=== PATIENT | female | born 1965 | race Caucasian/White ===

== ENCOUNTER → 2022-12-21 10:04 | Outpatient (BNVA) | payer OTHER, SELFPAY | PROVIDERS: Visit Provider Physician Assistant Surgical ==

== ENCOUNTER 2022-12-30 08:09 | Outpatient (AMB) | payer OTHER, SELFPAY ==
--- OUTSIDE RECORDS SUMMARY | 2022-12-30 08:11 | XMS_ITS | Continuity of Care Document ---
Author Name Unknown Organization 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 Date(s): 03/30/21 - 04/06/21 [facility] [address] [place] [address]- Encounter Diagnosis Memory deficit(Discharge Diagnosis) - 03/30/21 Oropharyngeal dysphagia(Discharge Diagnosis) - 03/30/21 Loss of taste(Discharge Diagnosis) - 03/30/21 Persistent dry cough(Discharge Diagnosis) - 03/30/21 Attending Physician: Kaiden Chirinos MD Allergies, Adverse Reactions, Alerts Substance Reaction Severity Status morphine Active Adhesive Bandage Active Percocet 7.5/325 Active Immunizations Given and Recorded Vaccine Date Status Refusal Reason SARS-CoV-2 (COVID-19) mRNA BNT-162b2 vac 08/02/20 Recorded SARS-CoV-2 (COVID-19) mRNA BNT-162b2 vac 07/10/20 Recorded hepatitis B adult vaccine 12/29/10 Recorded hepatitis B adult vaccine 07/28/10 Recorded hepatitis B adult vaccine 01/20/10 Recorded tetanus/diphtheria/pertussis, acel(Tdap) 01/20/10 Recorded Medications amitriptyline 10 mg oral tablet 10 mg, 1, tablet, By Mouth, Daily at bedtime, # 90 tablet, Refills 1, Tot. Refills 1, Maintenance, 12/24/20 16:08:00 EDT, Route to Pharmacy Electronically, [facility]/pharmacy #[id number], Partial fill upon patient request if the prescription is for a schedule II... Start Date: 12/24/20 Status: Ordered baclofen 10 mg oral tablet 10 mg, 1, tablet, By Mouth, 3 times a day, PRN, # 30 tablet, Refills 0, Tot. Refills 0, Maintenance, Spasm, 01/31/19 21:47:23 EDT, Route to Pharmacy Electronically, [id number], [facility]/pharmacy #[id number] Start Date: 01/31/19 Stop Date: 02/14/19 Status: Ordered benzonatate 100 mg oral capsule 2 capsule, By Mouth, 3 times a day, PRN NEEDED FOR COUGH, # 30 capsule, 1 Refills, Physician Stop 03/19/22 17:38:00 EST, 02/19/22 16:55:00 EDT, [facility]/pharmacy #[id number], 160, cm, 12/04/20 10:52:00 EDT, Height, 104.6, kg, 12/04/20 10:52:00 EDT, Dry Weight Start Date: 02/19/22 Stop Date: 03/19/22 Status: Ordered benzonatate 100 mg oral capsule 2 capsule, By Mouth, 3 times a day, PRN NEEDED FOR COUGH, # 30 capsule, 1 Refills, Physician Stop 02/19/22 16:55:00 EDT, 02/19/21 16:54:00 EDT, [facility]/pharmacy #[id number], 160, cm, 12/04/20 10:52:00 EDT, Height, 104.6, kg, 12/04/20 10:52:00 EDT, Dry Weight Start Date: 02/19/21 Stop Date: 02/19/22 Status: Ordered clonazePAM 0.5 mg oral tablet 1 tablet = 0.5 mg, By Mouth, 4 times a day, PRN Anxiety, Patient on controlled substance contract. Please do NOT fill until 09/23/2020, # 112 tablet, 0 Refills, Maintenance, 11/18/20 21:02:00 EDT, Tablet, [facility]/pharmacy #[id number], Partial fill upon patient... Start Date: 11/18/20 Status: Ordered Famotidine 0 Refills, Maintenance, 04/07/19 16:11:00 EST Start Date: 04/07/19 Status: Ordered gabapentin 800 mg oral tablet 1 tablet = 800 mg, By Mouth, 4 times a day, # 360 tablet, 1 Refills, Maintenance, 11/09/20 23:47:00EDT, Tablet, [facility]/pharmacy #[id number], Partial fill upon patient request if the prescription is for a schedule II opioid drug., 160, cm, 10/30/20 8:28:00 EDT... Start Date: 11/09/20 Status: Ordered Hinged knee brace bilateral knees Hinged knee brace bilateral knees, See Instructions, # 2 each, Refills 0, Tot. Refills 0, Maintenance, To be worn while ambulating daily., 12/04/20 11:23:00 EDT, Supply Start Date: 12/04/20 Status: Ordered HydrOXYzine = 100 mg, By Mouth, 3 times a day, 0 Refills, Maintenance, 04/07/19 16:12:00 EST Start Date: 04/07/19 Status: Ordered hydrOXYzine pamoate 50 mg oral capsule 1-2 capsule, By Mouth, 3 times a day, PRN itchiness, # 180 capsule, 1 Refills, Maintenance, 02/25/21 8:28:00 EST, Capsule, [facility]/pharmacy #[id number], Partial fill upon patient request if the prescription isfor a schedule II opioid drug., 160, cm, 12/04/20 1... Start Date: 02/25/21 Status: Ordered Incontenence Pads, Extra Long Day Time Incontenence Pads, Extra Long Day Time, See Instructions, # 120 each, Refills 11, Tot. Refills 11, Maintenance, Use for Dx: urinary incontenence R32 Duration of need: x99, 10/30/20 8:53:00 EDT, Supply Start Date: 10/30/20 Status: Ordered Incontenence Pads, Night Time Extra Long Heavy Incontenence Pads, Night Time Extra Long Heavy, See Instructions, # 90 each, Refills 11, Tot. Refills 11, Maintenance, Use for Dx: urinary incontenence R32 Duration of need x 99, 11/11/20 10:29:00 EDT, Supply, 160, cm, 10/30/20 8:28:00 EDT, Height, 1... Start Date: 11/11/20 Status: Ordered levothyroxine 75 mcg (0.075 mg) oral tablet 1 tablet = 75 mcg, By Mouth, Daily before breakfast, # 90 tablet, 1 Refills, Maintenance, 11/05/20 11:43:00 EDT, Tablet, [facility]/pharmacy #[id number], Partial fill upon patient request if the prescription is for a schedule II opioid drug., 160, cm, 10/30/20 8:2... Start Date: 11/05/20 Status: Ordered meloxicam 15 mg oral tablet 1/2 TO 1 TABLET, By Mouth, Daily, PRN NEEDED FOR MODERATE PAIN, # 30 tablet, 1 Refills, [id number], 160, cm, 12/04/20 10:52:00 EDT, Height, 104.6, kg, 12/04/20 10:52:00 EDT, Dry Weight Start Date: 01/22/21 Status: Ordered omeprazole 20 mg oral enteric coated capsule 1 capsule, By Mouth, Daily, # 90 capsule, 1 Refills, [id number], 160, cm, 03/30/21 10:47:00 EST, Height, 104.6, kg, 12/04/20 10:52:00 EDT, Dry Weight Start Date: 03/31/21 Status: Ordered ondansetron 4 mg oral tablet See Instructions, TAKE 1 TABLET BY MOUTH EVERY 8 HOURS NEEDED FOR NAUSEA AND VOMITING, # 15 tablet, 1 Refills, Physician Stop 04/19/21 17:37:00 EST, 03/19/21 17:37:00 EST, [facility]/pharmacy #[id number], 160,cm, 12/04/20 10:52:00 EDT, Height, 104.6, kg, 12/04... Start Date: 03/19/21 Stop Date: 04/19/21 Status: Ordered oxybutynin 5 mg oral tablet 1 tablet, By Mouth, 3 times a day, dose increase, # 270 tablet, 1 Refills, Maintenance, 03/19/21 17:40:00 EST, [facility]/pharmacy #[id number], 160, cm, 12/04/20 10:52:00 EDT, Height, 104.6, kg, 12/04/20 10:52:00EDT, Dry Weight Start Date: 03/19/21 Status: Ordered ProAir HFA 90 mcg/inh inhalation aerosol 2 puffs, Inhalation, Every 4 hours, PRN as needed for wheezing, # 8.5 Gm, 0 Refills, Maintenance, 11/16/20 8:39:00 EDT, Aerosol, [id number], Partial fill upon patient request if the prescription is for a schedule II opioid drug., 2 puffs Inhal... Start Date: 11/16/20 Status: Ordered Qvar Redihaler 40 mcg/inh inhalation aerosol = 40 mcg, Inhalation, 2 times a day, to replace flovent rinse mouth and throat after use, # 1 each,1 Refills, Maintenance, 03/30/21 20:35:00 EST, [id number], Partial fill upon patient request if the prescription is for a schedule II opioid d... Start Date: 03/30/21 Status: Ordered sertraline 100 mg oral tablet 2 tablet = 200 mg, By Mouth, Daily, dose increase, please hold script until patient next due (she will no longer be on 50mg tabs), # 180 tablet, 1 Refills, Maintenance, 10/30/20 8:45:00 EDT, Tablet, [id number], Partial fill upon patient reques... Start Date: 10/30/20 Status: Ordered traZODone 150 mg oral tablet 1.5 tablet = 225 mg, By Mouth, Daily at bedtime, dose increase, # 135 tablet, 1 Refills, Maintenance, 04/06/21 12:26:00 EST, Tablet, [id number], Partial fill upon patient request if the prescription is for a schedule II opioid drug., 160, cm,... Start Date: 04/06/21 Status: Ordered Vitamin D3 50,000 intl units oral capsule TAKE 1 CAPSULE BY MOUTH ONCE A WEEK Start Date: 09/07/20 Status: Ordered Problem List Condition Effective Dates Status Health Status Inform ant Anxiety(Confirmed) Active Chronic neck pain(Confirmed) Active Swelling of face(Confirmed) Active Chronic GERD(Confirmed) Active Hypothyroidism(Confirmed) Active Insomnia(Confirmed) Active Chronic pain of right knee(Confirmed) Active Legally blind(Confirmed) Active Moderate obesity(Confirmed) Active Ruptured ear drum(Confirmed) Active Post traumatic stress disord er (PTSD)(Confirmed) Active Major depressive disorder, r ecurrent episode, moderate(Confirmed) Active Adult night terrors(Confirmed) Active Diagnosis Diagnosis Type Effective Dates Health Status Clinical Service Informant Memory deficit Discharge Diagnosis 03/30/21 Oropharyngeal dysphagia Discharge Diagnosis 03/30/21 Loss of taste Discharge Diagnosis 03/30/21 Persistent dry cough Discharge Diagnosis 03/30/21 Vital Signs Most recent to oldest [Reference Range]: 1 Height 160 cm (03/30/21 10:47 AM) Oxygen Saturation [94-100 %] 97 % (03/30/21 10:47 AM) Pulse Rate [55-90 bpm] 84 bpm (03/30/21 10:47 AM) Blood Pressure [90-138/55-84 mm Hg] 122/ 82mm Hg (03/30/21 10:47 AM) Temperature [96.8-100.4 DegF] 98.4 DegF (03/30/21 10:47 AM) Blood pressure sites Arm, left (03/30/21 10:47 AM) Temperature Route Temporal (03/30/21 10:47 AM) Weight Obtained Via Standing scale (03/30/21 10:47 AM) Social History Social History Type Response Smoking Status Former smoker, quit more than 30 days ago;Never entered on: 04/07/19 Sex
--- OUTSIDE RECORDS SUMMARY | 2022-12-30 08:11 | XMS_ITS | Continuity of Care Document ---
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 Name Role Phone Kaiden Chirinos MD Primary Care Physician [phone] Encounter [facility] [id number] Date(s): 05/14/21 - 05/21/21 [facility] [address] [place] [address]- Encounter Diagnosis Bilateral primary osteoarthritis of knee(Discharge Diagnosis) - 05/14/21 Attending Physician: Kaiden Chirinos MD Allergies, Adverse [...] 01/20/10 Recorded tetanus/diphtheria/pertussis, acel(Tdap) 01/20/10 Recorded Medications Albuterol (Eqv-ProAir HFA) 90 mcg/inh inhalation aerosol 2 puffs, Inhalation, Every 4 hours, PRN NEEDED FOR WHEEZING, # 8.5 each, 0 Refills, [id number], 20, INHALE 2 PUFFS BY MOUTH EVERY 4 HOURS NEEDED FOR WHEEZING, 160, cm, 03/30/21 10:47:00 EST, Height, 104.6, kg, 12/04/20 10:52:00 EDT, Dry Weight Start Date: 04/28/21 Status: Ordered amitriptyline 10 mg oral tablet 10 mg, 1, tablet, By Mouth, Daily at bedtime, # 90 tablet, Refills 1, Tot. Refills 1, Maintenance, 12/24/20 16:08:00 EDT, Route to Pharmacy Electronically, [facility]/pharmacy #[id number], Partial fill upon patient request if the prescription is for a schedule II... Start Date: 12/24/20 Status: Ordered baclofen 10 mg oral tablet 10 mg, 1, tablet, By Mouth, 3 times a day, PRN, # 30 tablet, Refills 0, Tot. Refills 0, Maintenance, Spasm, 01/31/19 21:47:23 EDT, Route to Pharmacy Electronically, [id number], [id number] Start Date: 01/31/19 Stop Date: 02/14/19 Status: Ordered Bactrim DS 800 mg-160 mg oral tablet 1 tablet, By Mouth, 2 times a day, for 3 days, with food, # 6 tablet, 0 Refills, Acute 05/23/21 17:36:00 EST, 05/20/21 17:36:00 EST, Tablet, [id number], Partial fill upon patient request if the prescription is for a schedule II opioid drug., 1... Start Date: 05/20/21 Stop Date: 05/23/21 Status: Ordered benzonatate 100 mg oral capsule 2 capsule, By Mouth, 3 times a day, PRN NEEDED FOR COUGH, # 30 capsule, 1 Refills, Physician Stop 03/19/22 17:38:00 EST, 02/19/22 16:55:00 EDT, [id number], 160, cm, 12/04/20 10:52:00 EDT, Height, 104.6, kg, 12/04/20 10:52:00 EDT, Dry Weight Start Date: 02/19/22 Stop Date: 03/19/22 Status: Ordered benzonatate 100 mg oral capsule 2 capsule, By Mouth, 3 times a day, PRN NEEDED FOR COUGH, # 30 capsule, 1 Refills, Physician Stop 02/19/22 16:55:00 EDT, 02/19/21 16:54:00 EDT, [id number], 160, cm, 12/04/20 10:52:00 EDT, Height, 104.6, kg, 12/04/20 10:52:00 EDT, Dry Weight Start Date: 02/19/21 Stop Date: 02/19/22 Status: Ordered clonazePAM 0.5 mg oral tablet 1 tablet = 0.5 mg, By Mouth, 4 times a day, PRN Anxiety, Patient on controlled substance contract. Please do NOT fill until 09/23/2020, # 112 tablet, 0 Refills, Maintenance, 11/18/20 21:02:00 EDT, Tablet, [id number], Partial fill upon patient... Start Date: 11/18/20 Status: Ordered Dilaudid 2 mg oral tablet 0.5 tablet = 1 mg, By Mouth, Every 6 hours, PRN Pain , Severe, # 28 tablet, 0 Refills, Acute 08/18/21 10:23:00 EDT, 07/12/21 15:21:00 EDT, Tablet, [facility]/pharmacy #[id number], Partial fill upon patient request if the prescription is for a schedule II opioid . Start Date: 07/12/21 Stop Date: 08/18/21 Status: Ordered Dilaudid 2 mg oral tablet 0.5 tablet = 1 mg, By Mouth, Every 6 hours, PRN Pain , Severe, # 14 tablet, 0 Refills, Acute 07/12/21 15:21:00 EDT, 05/14/21 15:19:00 EST, Tablet, [id number], Partial fill upon patient request if the prescription is for a schedule II opioid . Start Date: 05/14/21 Stop Date: 07/12/21 Status: Ordered Famotidine 0 Refills, Maintenance, 04/07/19 16:11:00 EST Start Date: 04/07/19 Status: Ordered gabapentin 800 mg oral tablet 1 tablet, By Mouth, 4 times a day, # 360 tablet, 1 Refills, [id number], 160, cm, 03/30/21 10:47:00 EST, Height, 104.6, kg, 12/04/20 10:52:00 EDT, Dry Weight Start Date: 04/08/21 Status: Ordered Hinged knee brace bilateral knees [...] 1 Refills, Maintenance, 02/25/21 8:28:00 EST, Capsule, [facility]/pharmacy #[id number], Partial fill upon patient request if [...] 1... Start Date: 11/11/20 Status: Ordered levothyroxine 0.088 mg oral tablet 1 tablet = 88 mcg, By Mouth, Daily before breakfast, dose increase, # 90 tablet, 1 Refills, Maintenance, 05/14/21 15:23:00 EST, Tablet, [facility]/pharmacy #[id number], Partial fill upon patient request if the prescription is for a schedule II opioid drug., 160, c... Start Date: 05/14/21 Status: Ordered Macrobid macrocrystals-monohydrate 100 mg oral capsule 1 capsule = 100 mg, By Mouth, 2 times a day, for 5 days, to replace bactrim, take with food, # 10 capsule, 0 Refills, Acute 05/26/21 12:01:00 EST, 05/21/21 12:01:00 EST, Capsule, [facility]/pharmacy #[id number], Partial fill upon patient request if the prescriptio... Start Date: 05/21/21 Stop Date: 05/26/21 Status: Ordered meloxicam 15 mg oral tablet 1/2 TO 1 TABLET, By Mouth, Daily, PRN NEEDED FOR MODERATE PAIN, # 30 tablet, 1 Refills, [id number], 160, cm, 12/04/20 10:52:00 EDT, Height, 104.6, kg, 12/04/20 10:52:00 EDT, Dry Weight Start Date: 01/22/21 Status: Ordered omeprazole 20 mg oral enteric coated capsule 1 capsule, By Mouth, Daily, # 90 capsule, 1 Refills, [id number], 160, cm, 03/30/21 10:47:00 EST, Height, 104.6, kg, 12/04/20 10:52:00 EDT, Dry Weight Start Date: 03/31/21 Status: Ordered ondansetron 4 mg oral tablet See Instructions, TAKE 1 TABLET BY MOUTH EVERY 8 HOURS NEEDED FOR NAUSEA AND VOMITING, # 15 tablet, 1 Refills, Physician Stop 07/12/21 15:23:00 EDT, 05/14/21 15:22:00 EST, [facility]/pharmacy #[id number], 160,cm, 03/30/21 10:47:00 EST, Height, 104.6, kg, 12/04... Start Date: 05/14/21 Stop Date: 07/12/21 Status: Ordered oxybutynin 5 mg oral tablet 1 tablet, By Mouth, 3 times a day, dose increase, # 270 tablet, 1 Refills, Maintenance, 03/19/21 17:40:00 EST, [id number], 160, cm, 12/04/20 10:52:00 EDT, Height, 104.6, kg, 12/04/20 10:52:00EDT, Dry Weight Start Date: 03/19/21 Status: Ordered Pyridium 200 mg oral tablet 1 tablet = 200 mg, By Mouth, 3 times a day, PRN painful urination, for 3 days, can turn urine orange, # 9 tablet, 0 Refills, Acute 05/23/21 17:36:00 EST, 05/20/21 17:36:00 EST, Tablet, [id number], Partial fill upon patient request if the presc... Start Date: 05/20/21 Stop Date: 05/23/21 Status: Ordered Qvar Redihaler 40 mcg/inh inhalation [...] Active Legally blind(Confirmed) Active Moderate obesity(Confirmed) Active Post traumatic stress disord er (PTSD)(Confirmed) Active Bilateral primary osteoarthr itis of knee(Confirmed) Active Major depressive disorder, r ecurrent episode, moderate(Confirmed) Active Adult night terrors(Confirmed) Active Diagnosis Diagnosis Type Effective Dates Health Status Clinical Service Informant Bilateral primary osteoarthritis of knee Discharge Diagnosis 05/14/21 Social History Social History Type Response Tobacco Other: 25 YRS-QUIT. Sex
--- OUTSIDE RECORDS SUMMARY | 2022-12-30 08:12 | XMS_ITS | Continuity of Care Document ---
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 Name Role Phone Kaiden Chirinos MD Primary Care Physician Encounter [facility] [place] Date(s): 07/28/22 - 08/27/22 [facility] [address] [place], [place] [address] Allergies, Adverse Reactions, Alerts Substance Reaction Severity Status morphine Active Adhesive Bandage Active Percocet 7.5/325 Active Paxlovid 1 Active 1hives Immunizations Given and Recorded Vaccine Date Status Refusal Reason SARS-CoV-2 (COVID-19) mRNA BNT-162b2 vac 08/02/20 Recorded SARS-CoV-2 (COVID-19) mRNA BNT-162b2 vac 07/10/20 Recorded hepatitis B adult vaccine 12/29/10 Recorded hepatitis B adult vaccine 07/28/10 Recorded hepatitis B adult vaccine 01/20/10 Recorded tetanus/diphtheria/pertussis, acel(Tdap) 01/20/10 Recorded Medications Albuterol (Eqv-ProAir HFA) 90 mcg/inh inhalation aerosol 2 puffs, Inhalation, Every 4 hours, PRN NEEDED FOR WHEEZING/cough/shortness of breath, # 8.5 Gm,0 Refills, Maintenance, 12/22/21 10:40:00 [facility] #[id number], 2 puffs Inhalation Every 4 hours,PRN: NEEDED FOR WHEEZING/cough/shortness... Start Date: 12/22/21 Status: Ordered albuterol 0.083% inhalation solution 3 mL = 2.5 mg, Inhalation, Every 4 hours, PRN for wheezing/cough/shortness of breath, # 25 each, 0 Refills, Maintenance, 06/29/22 13:08:00 EDT, Solution, [facility] #[id number], Partial fill upon patient request if the prescription is for a sched... Start Date: 06/29/22 Status: Ordered Mulga Saline Mist 0.65% nasal spray 2 sprays, Nares, Both, 4 times a day, # 1 each, 0 Refills, Maintenance, 02/04/22 13:32:00 EDT, [facility] #[id number], Partial fill upon patient request if the prescription is for a schedule II opioid drug., 2 sprays Nares, Both 4 times a day, 15... Start Date: 02/04/22 Status: Ordered buPROPion 150 mg/24 hours (XL) oral tablet, extended release 1 tablet = 150 mg, By Mouth, Every 24 hours, # 30 tablet, 0 Refills, Maintenance, 09/27/21 21:54:00EDT, ER Tablet, Partial fill upon patient request if the prescription is for a schedule II opioid drug. Start Date: 09/27/21 Status: Ordered cetirizine 10 mg oral tablet 1 tablet, By Mouth, Daily, PRN allergies, # 90 tablet, 0 Refills, Maintenance, 12/27/21 13:43:00 EDT, [facility] #[id number], 153, cm, 10/08/21 13:23:00 EDT, Height, 113.9, kg, 10/08/21 13:23:00EDT, Dry Weight Start Date: 12/27/21 Status: Ordered chlorhexidine 2% topical liquid See Instructions, 1 application to bilateral forearms twice weekly, # 120 mL, 3 Refills, Soft Stop,06/17/22 11:06:00 EST, Liquid, [facility] #[id number], Partial fill upon patient request if the prescription is for a schedule II opioid drug., 1... Start Date: 06/17/22 Status: Ordered chlorhexidine 4% topical soap See Instructions, apply topically twice weekly to skin on forearms, # 120 mL, 2 Refills, Soft Stop,06/17/22 16:03:00 EST, [facility] #[id number], Partial fill upon patient request if the prescription is for a schedule II opioid drug., apply topi... Start Date: 06/17/22 Status: Ordered clonazePAM 0.5 mg oral tablet 1 tablet = 0.5 mg, By Mouth, 4 times a day, PRN Anxiety, Patient on controlled substance contract. Please do NOT fill until 09/23/2020, # 112 tablet, 0 Refills, Maintenance, 11/18/20 21:02:00 EDT, Tablet, [facility]/pharmacy #[id number], Partial fill upon patient... Start Date: 11/18/20 Status: Ordered diclofenac 1% topical gel = 1 Gm, Topically, 4 times a day, FOR PAIN., # 100 Gm, 1 Refills, [id number], 30, APPLY 1 GM TOPICALLY 4 TIMES A DAY FOR PAIN, 153, cm, 06/07/21 11:07:00 EST, Height, 105, kg, 05/31/21 15:15:00 EST, Dry Weight Start Date: 08/05/21 Status: Ordered Dilaudid 2 mg oral tablet 1 tablet = 2 mg, By Mouth, 2 times a day, PRN Pain , Severe, checked masspat, # 56 tablet, 0 Refills, Maintenance, 08/26/22 14:09:00 EDT, Tablet, [facility] #[id number], Partial fill upon patient request if the prescription is for a schedule II o... Start Date: 08/26/22 Status: Ordered Estrace Vaginal Cream 0.1 mg/g = 2 Gm, Vaginally, Daily at bedtime, 2g PV daily at bedtime x 2 weeks, then 1g PV 1-3x per week, # 42.5 Gm, 5 Refills, Maintenance, 11/09/21 11:17:00 EDT, [facility] #[id number], Partial fill upon patient request if the prescription is for a sche... Start Date: 11/09/21 Status: Ordered Estradiol Patch 0.0375 mg/24 hours twice weekly transdermal film, extended release See Instructions, APPLY 1 PATCH TOPICALLY TWICE WEEKLY DIRECTED, # 8 patch, 6 Refills, Maintenance, 03/23/22 16:10:00 EST, [facility] #[id number], 28, APPLY 1 PATCH TOPICALLY TWICE WEEKLY DIRECTED, 153, cm, 01/04/22 13:15:00 EDT, Height, 11... Start Date: 03/23/22 Status: Ordered fluconazole 150 mg oral tablet 1 tablet = 150 mg, By Mouth, Once, PRN vaginal yeast infection, # 1 tablet, 0 Refills, Soft Stop, 03/15/22 10:42:00 EST, Tablet, [facility] #[id number], Partial fill upon patient request if the prescription is for a schedule II opioid drug., 153,... Start Date: 03/15/22 Status: Ordered fluticasone 50 mcg/inh nasal spray See Instructions, SHAKE LIQUID AND USE 1 SPRAY IN EACH NOSTRIL TWICE DAILY, # 16 Gm, 1 Refills, Maintenance, 05/18/22 13:57:00 EST, [facility] #[id number], 30, SHAKE LIQUID AND USE 1 SPRAY IN EACH NOSTRIL TWICE DAILY, 153, cm, 04/25/22 16:23:00 E... Start Date: 05/18/22 Status: Ordered gabapentin 800 mg oral tablet 1 tablet, By Mouth, 4 times a day, # 360 tablet, 1 Refills, Maintenance, 04/19/22 12:59:00 EST, [facility] #[id number], 153, cm, 01/04/22 13:15:00 EDT, Height, 113.9, kg, 10/08/21 13:23:00 EDT, Dry Weight Start Date: 04/19/22 Status: Ordered Hinged knee brace bilateral knees Hinged knee brace bilateral knees, See Instructions, # 2 each, Refills 0, Tot. Refills 0, Maintenance, To be worn while ambulating daily., 12/04/20 11:23:00 EDT, Supply Start Date: 12/04/20 Status: Ordered hydrOXYzine pamoate 50 mg oral capsule 1 capsule, By Mouth, 3 times a day, PRN NEEDED FOR ITCHING, # 90 capsule, 1 Refills, Maintenance, 07/18/22 9:45:00 EDT, [facility] #[id number], 153, cm, 06/17/22 10:53:00 EST, Height, 109, kg, 06/17/22 10:53:00 EST, Dry Weight Start Date: 07/18/22 Status: Ordered Incontenence Pads, Extra Long Day Time Incontenence Pads, Extra Long Day Time, See Instructions, # 300 each, Refills 11, Tot. Refills 11, Maintenance, Use for Dx: urinary incontenence R32 Duration of need: x99, 05/31/22 15:39:00 EST, Supply Start Date: 05/31/22 Status: Ordered Incontenence Pads, Night Time Extra Long Heavy Incontenence Pads, Night Time Extra Long Heavy, See Instructions, # 90 each, Refills 11, Tot. Refills 11, Maintenance, Use for Dx: urinary incontenence R32 Duration of need x 99, 03/16/22 16:47:00 EST, Supply Start Date: 03/16/22 Status: Ordered levothyroxine 125 mcg (0.125 mg) oral tablet 1 tablet = 125 mcg, By Mouth, Daily in AM, dose increase, # 90 tablet, 1 Refills, Maintenance, 04/28/22 13:51:00 EST, Tablet, [facility] #[id number], Partial fill upon patient request if the prescription is for a schedule II opioid drug., 153, cm... Start Date: 04/28/22 Status: Ordered lidocaine 4% topical cream 1 application, Topically, 3 times a day, PRN Pain , Mild, # 30 Gm, 1 Refills, Maintenance, 06/24/2315:24:00 EST, Cream, [facility] #[id number], Partial fill upon patient request if the prescription is for a schedule II opioid drug., 1 applicatio... Start Date: 06/23/22 Status: Ordered meloxicam 15 mg oral tablet 1/2 TO 1 TABLET, By Mouth, Daily, PRN NEEDED FOR MODERATE PAIN, # 30 tablet, 5 Refills, Maintenance, 01/10/22 20:40:00 EDT, [facility] #[id number], 153, cm, 01/04/22 13:15:00 EDT, Height, 113.9, kg, 10/08/21 13:23:00 EDT, Dry Weight Start Date: 01/10/22 Status: Ordered Nebulizer/Compressor See Instructions, # 1 each, Refills 0, Tot. Refills 0, Maintenance, Use to administer albuterol q 4hours prn cough/wheezing Dx: Covid 19, 10/15/21 13:43:00 EDT, Supply, 153, cm, 10/08/21 13:23:00 EDT, Height, 113.9, kg, 10/08/21 13:23:00 EDT, Dry We... Start Date: 10/15/21 Status: Ordered omeprazole 20 mg oral enteric coated capsule 1 capsule, By Mouth, Daily, # 90 capsule, 1 Refills, Maintenance, 07/26/22 14:24:00 EDT, [facility] #[id number], 153, cm, 06/17/22 10:53:00 EST, Height, 109, kg, 06/17/22 10:53:00 EST, Dry Weight Start Date: 07/26/22 Status: Ordered ondansetron 4 mg oral tablet 1 tablet, By Mouth, Every 8 hours, PRN NEEDED FOR NAUSEA OR VOMITING, # 30 tablet, 1 Refills, Maintenance, 06/14/22 10:29:00 EST, [facility] #[id number], 153, cm, 06/08/22 9:37:00 EST, Height, 109, kg, 04/25/22 15:54:00 EST, Dry Weight Start Date: 06/14/22 Status: Ordered oxybutynin 5 mg oral tablet 1 tablet, By Mouth, 3 times a day, # 270 tablet, 0 Refills, Maintenance, 07/05/22 8:13:00 EDT, [facility] #[id number], 153, cm, 06/17/22 10:53:00 EST, Height, 109, kg, 06/17/22 10:53:00 EST, DryWeight Start Date: 07/05/22 Status: Ordered Rapid Antigen home covid swab Rapid Antigen home covid swab, See Instructions, # 1 each, Refills 0, Tot. Refills 0, Maintenance, Use to test for Covid., 11/17/21 16:45:00 EDT, Supply, 153, cm, 10/08/21 13:23:00 EDT, Height, 113.9, kg, 10/08/21 13:23:00 EDT, Dry Weight Start Date: 11/17/21 Status: Ordered Right ankle stirrup air cast Right ankle stirrup air cast, See Instructions, # 1 each, Refills 0, Tot. Refills 0, Maintenance, To be worn on ambulation, 06/07/21 11:32:00 EST, Supply Start Date: 06/07/21 Status: Ordered traZODone 50 mg oral tablet 1-2 tablet, By Mouth, Daily, one hour prior to bedtime. dose increase, # 60 tablet, Refills 2, Tot.Refills 2, Maintenance, 07/01/22 14:21:00 EDT, Route to Pharmacy Electronically, [facility] #[id number], Partial fill upon patient request if the... Start Date: 07/01/22 Status: Ordered triamcinolone 0.1% topical cream 1 application, Topically, 3 times a day, PRN arm rash, # 30 Gm, 1 Refills, Acute 06/08/23 9:53:00 EST, 06/08/22 9:53:00 EST, Cream, [facility] #[id number], Partial fill upon patient request if the prescription is for a schedule II opioid drug., 1... Start Date: 06/08/22 Stop Date: 06/08/23 Status: Ordered valacyclovir 1 gm oral tablet 1 tablet = 1 Gm, By Mouth, Every 8 hours, for 7 days, # 21 tablet, 1 Refills, Acute 09/09/22 17:03:00 EDT, 08/26/22 17:03:00 EDT, Tablet, [facility] #[id number], Partial fill upon patient request if the prescription is for a schedule II opioid dr... Start Date: 08/26/22 Stop Date: 09/09/22 Status: Ordered Problem List Condition Confirmation Course Effective Dates Status H ealth Status Informant Anxiety Confirmed Active Chronic neck pain Confirmed Active Swelling of face Confirmed Active Chronic GERD Confirmed Active Hypothyroidism Confirmed Active Insomnia Confirmed Active Chronic pain of right knee Confirmed Active Legally blind Confirmed Active Memory deficit Confirmed Active Moderate obesity Confirmed Active Post traumatic stress disorder (PTSD) Confirmed Active Bilateral primary osteoarthritis of knee Confirmed Active Pruritic condition Confirmed Active Major depressive disorder, recurrent episode, moderate Confirmed Active Severe obesity Confirmed Active Adult night terrors Confirmed Active Social History Social History Type Response Smoking Status Former smoker, quit more than 30 days ago;Never entered on: 11/09/21 Sex Patient Care team information Care Team Personnel Name: Kaiden Chirinos MD Position: S Primary Care Physician Member Role: PCP Address: Address: [address] [place] [address] [facility] [place] [address]- Care Team Related Persons Name: RODOLFO SHEIKH Address: home [address] [facility] [address] [facility] [place] [address] Name: CHIARA TEE Address: home [address] [place] [address] [place] [id number]
--- OUTSIDE RECORDS SUMMARY | 2022-12-30 08:12 | XMS_ITS | Continuity of Care Document ---
Author Name Unknown Organization [facility] Address [address] [place] [address]- Care Team Providers Care Compounding Pharmacy Technician Name Role Phone Candis CARDENAS, Kaiden Villalta Primary Care Physician [phone] Encounter [facility] [place] Date(s): 06/30/21 - 07/30/21 [facility] [address] [place], [place] [address] Allergies, Adverse Reactions, Alerts Substance Reaction Severity [...] FOR WHEEZING, # 8.5 each, 0 Refills, [id number], 20, INHALE 2 PUFFS BY MOUTH EVERY 4 HOURS NEEDED FOR WHEEZING, 160, cm, 03/30/21 10:47:00 EST, Height, 104.6, kg, 12/04/20 10:52:00 EDT, Dry Weight Start Date: 04/28/21 Status: Ordered amitriptyline 10 mg oral tablet 10 mg, 1, tablet, By Mouth, Daily at bedtime, # 90 tablet, Refills 1, Tot. Refills 1, Maintenance, 07/30/21 12:25:00 EDT, Route to Pharmacy Electronically, [facility] #[id number], Partial fill upon patient request if the prescription is for a jasmin... Start Date: 07/30/21 Status: Ordered benzonatate 100 mg oral capsule 2 capsule, By Mouth, 3 times a day, PRN NEEDED FOR COUGH, # 30 capsule, 1 Refills, Physician Stop 03/19/22 17:38:00 EST, 02/19/22 16:55:00 EDT, [facility]/pharmacy #[id number], 160, cm, 12/04/20 10:52:00 EDT, Height, 104.6, kg, 12/04/20 10:52:00 EDT, Dry Weight Start Date: 02/19/22 Stop Date: 03/19/22 Status: Ordered benzonatate 100 mg oral capsule 2 capsule, By Mouth, 3 times a day, PRN NEEDED FOR COUGH, # 30 capsule, 1 Refills, Physician Stop 02/19/22 16:55:00 EDT, 02/19/21 16:54:00 EDT, [facility]/pharmacy #[id number], 160, cm, 12/04/20 10:52:00 EDT, Height, 104.6, kg, 12/04/20 10:52:00 EDT, Dry Weight Start Date: 02/19/21 Stop Date: 02/19/22 Status: Ordered clonazePAM 0.5 mg oral tablet 1 tablet = 0.5 mg, By Mouth, 4 times a day, PRN Anxiety, Patient on controlled substance contract. Please do NOT fill until 09/23/2020, # 112 tablet, 0 Refills, Maintenance, 11/18/20 21:02:00 EDT, Tablet, [facility] #[id number], Partial fill upon patient... Start Date: 11/18/20 Status: Ordered Dilaudid 2 mg oral tablet 1 tablet = 2 mg, By Mouth, 2 times a day, PRN Pain , Severe, # 28 tablet, 0 Refills, Maintenance, 07/21/21 12:23:00 EDT, Tablet, [facility] #[id number], Partial fill upon patient request if the prescription is for a schedule II opioid drug., 153,... Start Date: 07/21/21 Status: Ordered Famotidine 0 Refills, Maintenance, 04/07/19 16:11:00 EST Start Date: 04/07/19 Status: Ordered gabapentin 800 mg oral tablet 1 tablet, By Mouth, 4 times a day, # 360 tablet, 1 Refills, [id number], 160, cm, 03/30/21 10:47:00 EST, Height, 104.6, [...] hydrOXYzine pamoate 50 mg oral capsule 1 capsule = 50 mg, By Mouth, 3 times a day, PRN itchiness, # 90 capsule, 1 Refills, Maintenance, 07/30/21 12:25:00 EDT, Capsule, [facility] #[id number], Partial fill upon patient request if the prescription is for a schedule II opioid drug., 153,... Start Date: 07/30/21 Status: Ordered Incontenence Pads, Extra Long Day [...] increase, # 90 tablet, 1 Refills, Maintenance, 07/30/21 12:25:00 EDT, Tablet, [facility] #[id number], Partial fill upon patient request if the prescription is for a schedule II opioid drug... Start Date: 07/30/21 Status: Ordered omeprazole 20 mg oral enteric coated capsule 1 capsule, By Mouth, Daily, # 90 capsule, 1 Refills, [id number], 160, cm, 03/30/21 10:47:00 EST, Height, 104.6, kg, 12/04/20 10:52:00 EDT, Dry Weight Start Date: 03/31/21 Status: Ordered oxybutynin 5 mg oral tablet 1 tablet, By Mouth, 3 times a day, dose increase, # 270 tablet, 1 Refills, Maintenance, 03/19/21 17:40:00 EST, [id number], 160, cm, 12/04/20 10:52:00 EDT, Height, 104.6, kg, 12/04/20 10:52:00EDT, Dry Weight Start Date: 03/19/21 Status: Ordered Qvar Redihaler 40 mcg/inh inhalation aerosol = 40 mcg, Inhalation, 2 times a day, to replace flovent rinse mouth and throat after use, # 1 each,1 Refills, Maintenance, 03/30/21 20:35:00 EST, [id number], Partial fill upon patient request if the prescription is for a schedule II opioid d... Start Date: 03/30/21 Status: Ordered Right ankle stirrup air cast Right ankle stirrup air cast, See Instructions, # 1 each, Refills 0, Tot. Refills 0, Maintenance, To be worn on ambulation, 06/07/21 11:32:00 EST, Supply Start Date: 06/07/21 Status: Ordered sertraline 100 mg oral tablet [...] 225 mg, By Mouth, Daily at bedtime, # 135 tablet, 1 Refills, Maintenance, 07/30/21 12:25:00 EDT, Tablet, [facility] #[id number], Partial fill upon patient request if the prescription is for a schedule II opioid drug., 153, cm, ... Start Date: 07/30/21 Status: Ordered Vitamin D3 50,000 intl units oral capsule TAKE 1 CAPSULE BY MOUTH ONCE A WEEK Start Date: 09/07/20 Status: Ordered Voltaren 1% topical gel = 1 Gm, Topically, 4 times a day, PRN for pain, take with food, # 100 Gm, 1 Refills, Maintenance, 06/11/21 14:11:00 EST, Gel, [facility] #[id number], Partial fill upon patient request if the prescriptionis for a schedule II opioid drug., 1 Gm Topically 4... Start Date: 06/11/21 Status: Ordered ZyrTEC 10 mg oral tablet 1 tablet = 10 mg, By Mouth, Daily, # 90 tablet, 1 Refills, Maintenance, 07/30/21 12:22:00 EDT, Tablet, [facility] #[id number], Partial fill upon patient request if the prescription is for a schedule II opioid drug., 153, cm, 06/07/21 11:07:00 EST... Start Date: 07/30/21 Status: Ordered Problem List Condition Effective Dates [...] episode, moderate(Confirmed) Active Adult night terrors(Confirmed) Active Social History Social History Type Response Tobacco Other: 25 YRS-QUIT. Sex
--- OUTSIDE RECORDS SUMMARY | 2022-12-30 08:12 | XMS_ITS | Continuity of Care Document ---
Author Name Unknown Organization [facility] Address [address] [place] [address]- Care Team Providers Care Custodial Aide Name Role Phone Kaiden Chirinos MD Primary Care Physician [phone] Encounter [place] Date(s): 11/01/21 - 12/01/21 [facility] [address] [place], [place] [address] Allergies, Adverse Reactions, Alerts Substance Reaction Severity [...] of breath, # 8.5 Gm,0 Refills, Maintenance, 09/28/21 16:57:00 EDT, [facility] #[id number], 2 puffs Inhalation Every 4 hours,PRN: NEEDED FOR WHEEZING/cough/shortness... Start Date: 09/28/21 Status: Ordered albuterol 0.083% inhalation solution 3 mL = 2.5 mg, Inhalation, Every 4 hours, PRN for wheezing/cough/shortness of breath, # 25 each, 0 Refills, Maintenance, 10/14/21 22:10:00 EDT, Solution, [facility] #[id number], Partial fill upon patient request if the prescription is for a sched... Start Date: 10/14/21 Status: Ordered Azithromycin 5 Day Dose Pack 250 mg oral tablet See Instructions, Take 2 tablets on day one. Take 1 tablet daily on Days 2-5., # 6 tablet, 0 Refills, Maintenance, 11/18/21 11:47:00 EDT, Tablet, [facility] #[id number], Partial fill upon patient request if the prescription is for a schedule II... Start Date: 11/18/21 Status: Ordered benzonatate 100 mg oral capsule 2 capsule, By Mouth, 3 times a day, PRN NEEDED FOR COUGH, # 30 capsule, 1 Refills, Physician Stop 11/10/22 14:46:00 EDT, 03/19/22 17:38:00 EST, [facility] #[id number], 153, cm, 10/08/21 13:23:00 EDT, Height, 113.9, kg, 10/08/21 13:23:00 EDT, D... Start Date: 03/19/22 Stop Date: 11/10/22 Status: Ordered budesonide 1 mg/2 mL inhalation suspension 2 mL = 1 mg, Neb, 2 times a day, rinse mouth out after use, # 120 mL, 1 Refills, Maintenance, 10/25/21 18:30:00 EDT, Suspension, [facility] #[id number], Partial fill upon patient request if the prescription is for a schedule II opioid drug., 153,... Start Date: 10/25/21 Status: Ordered buPROPion 150 mg/24 hours (XL) oral tablet, extended release 1 tablet = 150 mg, By Mouth, Every 24 hours, # 30 tablet, 0 Refills, Maintenance, 09/27/21 21:54:00EDT, ER Tablet, Partial fill upon patient request if the prescription is for a schedule II opioid drug. Start Date: 09/27/21 Status: Ordered clonazePAM 0.5 mg oral tablet 1 tablet = 0.5 mg, By Mouth, 4 times a day, PRN Anxiety, Patient on controlled substance contract. Please do NOT fill until 09/23/2020, # 112 tablet, 0 Refills, Maintenance, 11/18/20 21:02:00 EDT, Tablet, [facility]/pharmacy #[id number], Partial fill upon patient... Start Date: 11/18/20 Status: Ordered diclofenac 1% topical gel = 1 Gm, Topically, 4 times a day, FOR PAIN., # 100 Gm, 1 Refills, [id number], 30, APPLY 1 GM TOPICALLY 4 TIMES A DAY FOR PAIN, 153, cm, 06/07/21 11:07:00 EST, Height, 105, kg, 05/31/21 15:15:00 EST, Dry Weight Start Date: 08/05/21 Status: Ordered Dilaudid 2 mg oral tablet 1 tablet = 2 mg, By Mouth, 2 times a day, PRN Pain , Severe, checked masspat, # 28 tablet, 0 Refills, Maintenance, 11/23/21 16:09:00 EDT, Tablet, [facility] #[id number], Partial fill upon patient request if the prescription is for a schedule II o... Start Date: 11/23/21 Status: Ordered Estrace Vaginal Cream 0.1 mg/g = 2 Gm, Vaginally, Daily at bedtime, 2g PV daily at bedtime x 2 weeks, then 1g PV 1-3x per week, # 42.5 Gm, 5 Refills, Maintenance, 11/09/21 11:17:00 EDT, [facility] #[id number], Partial fill upon patient request if the prescription is for a sche... Start Date: 11/09/21 Status: Ordered gabapentin 800 mg oral tablet See Instructions, TAKE 1 TABLET BY MOUTH FOUR TIMES DAILY, # 360 tablet, 0 Refills, [facility] #[id number], 153, cm, 10/08/21 13:23:00 EDT, Height, 113.9, kg, 10/08/21 13:23:00 EDT, Dry Weight Start Date: 10/21/21 Status: Ordered Hinged knee brace bilateral knees Hinged knee brace bilateral knees, See Instructions, # 2 each, Refills 0, Tot. Refills 0, Maintenance, To be worn while ambulating daily., 12/04/20 11:23:00 EDT, Supply Start Date: 12/04/20 Status: Ordered hydrOXYzine pamoate 50 mg oral capsule 1 capsule, By Mouth, 3 times a day, PRN NEEDED FOR ITCHING, # 90 capsule, 1 Refills, Maintenance, 09/28/21 16:58:00 EDT, [facility] #[id number], 153, cm, 08/10/21 11:19:00 EDT, Height, 105, kg, 05/31/21 15:15:00 EST, Dry Weight Start Date: 09/28/21 Status: Ordered Incontenence Pads, Extra Long Day [...] 1 Refills, Maintenance, 07/30/21 12:25:00 EDT, Tablet, [facility] #[id number], Partial fill upon patient request if the prescription is for a schedule II opioid drug... Start Date: 07/30/21 Status: Ordered levothyroxine 0.1 mg oral tablet 1 tablet = 100 mcg, By Mouth, Daily, dose increase, # 90 tablet, 0 Refills, Maintenance, 11/01/21 16:08:00 EDT, [facility] #[id number], Please discontinue 88ug, 153, cm, 10/08/21 13:23:00 EDT, Height, 113.9, kg, 10/08/21 13:23:00 EDT, Dry Weight Start Date: 11/01/21 Status: Ordered levothyroxine 0.112 mg oral tablet 1 tablet = 112 mcg, By Mouth, Daily, avoid antacids, calcium, or iron for at least 4 hrs before or 4 hrs after on an empty stomach dose increase, # 30 tablet, 1 Refills, Maintenance, 11/30/21 15:44:00 EDT, Tablet, [facility] #[id number], [place]... Start Date: 11/30/21 Status: Ordered lidocaine 2% topical gel with applicator 5 mL = 0.1 Gm, Topically, 2 times a day, PRN Pain , Moderate, # 60 mL, 2 Refills, Soft Stop, 09/24/21 16:43:00 EDT, Gel, [facility] #[id number], Partial fill upon patient request if the prescription is for a schedule II opioid drug., 153, cm, ... Start Date: 09/24/21 Status: Ordered meloxicam 15 mg oral tablet 1/2 TO 1 TABLET, By Mouth, Daily, PRN NEEDED FOR MODERATE PAIN, # 30 tablet, 1 Refills, :04:00 EDT, [facility] #[id number], 153, cm, 10/08/21 13:23:00 EDT, Height, 113.9, kg, 10/08/21 13:23:00 EDT, Dry Weight Start Date: 11/16/21 Status: Ordered Nebulizer/Compressor See Instructions, # 1 each, Refills 0, Tot. Refills 0, Maintenance, Use to administer albuterol q 4hours prn cough/wheezing Dx: Covid 19, 10/15/21 13:43:00 EDT, Supply, 153, cm, 10/08/21 13:23:00 EDT, Height, 113.9, kg, 10/08/21 13:23:00 EDT, Dry We... Start Date: 10/15/21 Status: Ordered omeprazole 20 mg oral enteric coated capsule 1 capsule, By Mouth, Daily, # 90 capsule, 0 Refills, 09/27/21 14:31:00 EDT, [facility] #[id number], 153, cm, 08/10/21 11:19:00 EDT, Height, 105, kg, 05/31/21 15:15:00 EST, Dry Weight Start Date: 09/27/21 Status: Ordered ondansetron 4 mg oral tablet 1 tablet = 4 mg, By Mouth, Every 8 hours, PRN Nausea & Vomiting, # 30 tablet, 1 Refills, Maintenance, 11/10/21 14:47:00 EDT, [facility] #[id number], 153, cm, 10/08/21 13:23:00 EDT, Height, 113.9, kg, 10/08/21 13:23:00 EDT, Dry Weight Start Date: 11/10/21 Status: Ordered oxybutynin 5 mg oral tablet 1 tablet, By Mouth, 3 times a day, # 270 tablet, 1 Refills, [id number], 153, cm, 08/10/21 11:19:00 EDT, Height, 105, kg, 05/31/21 15:15:00 EST, Dry Weight Start Date: 09/09/21 Status: Ordered predniSONE 20 mg oral tablet See Instructions, 3 tabs PO daily for 3 days, then 2 tabs PO daily for 3 days, then 1 tab PO daily for 3 days, then 0.5 tab PO daily for 3 days with food or milk, # 20 tablet, 0 Refills, Acute 11/18/22 11:48:00 EDT, 11/18/21 11:47:00 EDT, Tablet,... Start Date: 11/18/21 Stop Date: 11/18/22 Status: Ordered Rapid Antigen home covid swab [...] EST, Supply Start Date: 06/07/21 Status: Ordered valacyclovir 1 gm oral tablet 1 tablet = 1 Gm, By Mouth, 3 times a day, for 7 days, drink plenty of fluids, # 21 tablet, 0 Refills, Acute 12/03/21 15:43:00 EDT, 11/26/21 15:43:00 EDT, Tablet, [facility] #[id number], Partial fill upon patient request if the prescription is for... Start Date: 11/26/21 Stop Date: 12/03/21 Status: Ordered ZyrTEC 10 mg oral tablet 1 tablet = 10 mg, By Mouth, Daily, # 90 tablet, 1 Refills, Maintenance, 07/30/21 12:22:00 EDT, Tablet, [facility] #[id number], Partial fill upon patient request if the prescription is for a schedule II opioid drug., 153, cm, 06/07/21 11:07:00 EST... Start Date: 07/30/21 Status: Ordered Problem List Condition Effective Dates Status Health Status Inform ant Anxiety(Confirmed) Active Chronic neck pain(Confirmed) Active Swelling of face(Confirmed) Active Chronic GERD(Confirmed) Active Hypothyroidism(Confirmed) Active Insomnia(Confirmed) Active Chronic pain of right knee(Confirmed) Active Legally blind(Confirmed) Active Memory deficit(Confirmed) Active Moderate obesity(Confirmed) Active Post traumatic stress disord er (PTSD)(Confirmed) Active Bilateral primary osteoarthr itis of knee(Confirmed) Active Pruritic condition(Confirmed) Active Major depressive disorder, r ecurrent episode, moderate(Confirmed) Active Severe obesity(Confirmed) Active Adult night terrors(Confirmed) Active Social History Social History Type Response Smoking Status Former smoker, quit more than 30 days ago;Never entered on: 11/09/21 Sex
--- OUTSIDE RECORDS SUMMARY | 2022-12-30 08:12 | XMS_ITS | Continuity of Care Document ---
Author Name Unknown Organization [facility] Address [address] [place] [address], [address], [address] [place] [address]- Care Team Providers Care Hand Glove Cleaner Name Role Phone Kaiden Chirinos MD Primary Care Physician [phone] Encounter [facility] [place] Date(s): 08/20/21 - 12/09/21 [facility] [address] [facility], [address]rd [address], [address] [place] [address]- Attending Physician: Not on Staff, Attending MD Referring Physician: Kaiden Chirinos MD Allergies, Adverse Reactions, [...] of breath, # 8.5 Gm,0 Refills, Maintenance, 12/08/21 20:52:00 EDT, [facility] #[id number], 2 puffs Inhalation Every 4 hours,PRN: NEEDED FOR WHEEZING/cough/shortness... Start Date: 12/08/21 Status: Ordered albuterol 0.083% inhalation solution 3 mL = 2.5 mg, Inhalation, Every 4 hours, PRN for wheezing/cough/shortness of breath, # 25 each, 0 Refills, Maintenance, 10/14/21 22:10:00 EDT, Solution, [facility] #[id number], Partial fill upon patient request if the prescription is for a sched... Start Date: 10/14/21 Status: Ordered benzonatate 100 mg oral capsule 2 capsule, By Mouth, 3 times a day, PRN NEEDED FOR COUGH, # 30 capsule, 1 Refills, Physician Stop 11/10/22 14:46:00 EDT, 03/19/22 17:38:00 EST, [facility] #[id number], 153, cm, 10/08/21 13:23:00 EDT, Height, 113.9, kg, 10/08/21 13:23:00 EDT, D... Start Date: 03/19/22 Stop Date: 11/10/22 Status: Ordered buPROPion 150 mg/24 hours (XL) [...] 0 Refills, Maintenance, 11/18/20 21:02:00 EDT, Tablet, [facility]/pharmacy #[id number], Partial fill upon patient... Start Date: 11/18/20 Status: Ordered diclofenac 1% topical gel = 1 Gm, Topically, 4 times a day, FOR PAIN., # 100 Gm, 1 Refills, [facility] [id number], 30, APPLY 1 GM TOPICALLY 4 TIMES A DAY FOR PAIN, 153, cm, 06/07/21 11:07:00 EST, Height, 105, kg, 05/31/21 15:15:00 EST, Dry Weight Start Date: 08/05/21 Status: Ordered Dilaudid 2 mg oral tablet 1 tablet = 2 mg, By Mouth, 2 times a day, PRN Pain , Severe, checked masspat, # 28 tablet, 0 Refills, Maintenance, 12/07/21 13:30:00 EDT, Tablet, [facility] #[id number], Partial fill upon patient request if the prescription is for a schedule II o... Start Date: 12/07/21 Status: Ordered Estrace Vaginal Cream 0.1 mg/g = 2 Gm, Vaginally, Daily at bedtime, 2g PV daily at bedtime x 2 weeks, then 1g PV 1-3x per week, # 42.5 Gm, 5 Refills, Maintenance, 11/09/21 11:17:00 EDT, [facility] #[id number], Partial fill upon patient request if the prescription is for a sche... Start Date: 11/09/21 Status: Ordered estradiol 0.0375 mg/24 hours twice weekly transdermal film, extended release See Instructions, 1 patch Topically, change patch twice a week, # 1 pack/packet, 1 Refills, Maintenance, 12/07/21 10:42:00 EDT, [facility] #[id number], Partial fill upon patient request if the prescription is for a schedule II opioid drug., 153,... Start Date: 12/07/21 Status: Ordered gabapentin 800 mg oral tablet See Instructions, TAKE 1 TABLET BY MOUTH FOUR TIMES DAILY, # 360 tablet, 0 Refills, [facility] #[id number], 153, cm, 10/08/21 13:23:00 EDT, Height, 113.9, [...] ITCHING, # 90 capsule, 1 Refills, Maintenance, 12/08/21 10:10:00 EDT, [facility] #[id number], 153, cm, 10/08/21 13:23:00 EDT, Height, 113.9,kg, 10/08/21 13:23:00 EDT, Dry Weight Start Date: 12/08/21 Status: Ordered Incontenence Pads, Extra Long Day [...] 1 Refills, Maintenance, 07/30/21 12:25:00 EDT, Tablet, [facility] #[id number], Partial fill upon patient request if the prescription is for a schedule II opioid drug... Start Date: 07/30/21 Status: Ordered levothyroxine 0.1 mg oral tablet 1 tablet = 100 mcg, By Mouth, Daily, dose increase, # 90 tablet, 0 Refills, Maintenance, 11/01/21 16:08:00 EDT, [facility] #[id number], Please discontinue 88ug, 153, cm, 10/08/21 13:23:00 [...] tablet, 1 Refills, Maintenance, 11/30/21 15:44:00 EDT, [facility] #[id number], [place]... Start Date: 11/30/21 Status: Ordered lidocaine 2% topical gel with applicator 5 mL = 0.1 Gm, Topically, 2 times a day, PRN Pain , Moderate, # 60 mL, 2 Refills, Soft Stop, 09/24/21 16:43:00 EDT, Gel, [facility] #[id number], Partial fill upon patient request if the prescription is for a schedule II opioid drug., 153, cm, ... Start Date: 09/24/21 Status: Ordered meloxicam 15 mg oral tablet 1/2 TO 1 TABLET, By Mouth, Daily, PRN NEEDED FOR MODERATE PAIN, # 30 tablet, 1 Refills, :04:00 EDT, [facility] #[id number], 153, cm, 10/08/21 13:23:00 EDT, Height, 113.9, [...] 90 capsule, 0 Refills, 09/27/21 14:31:00 EDT, [facility] #[id number], 153, cm, 08/10/21 11:19:00 EDT, Height, 105, kg, 05/31/21 15:15:00 EST, Dry Weight Start Date: 09/27/21 Status: Ordered ondansetron 4 mg oral tablet 1 tablet = 4 mg, By Mouth, Every 8 hours, PRN Nausea & Vomiting, # 30 tablet, 1 Refills, Maintenance, 11/10/21 14:47:00 EDT, [facility] #[id number], 153, cm, 10/08/21 13:23:00 EDT, Height, 113.9, kg, 10/08/21 13:23:00 EDT, Dry Weight Start Date: 11/10/21 Status: Ordered oxybutynin 5 mg oral tablet 1 tablet, By Mouth, 3 times a day, # 270 tablet, 1 Refills, [id number], 153, cm, 08/10/21 11:19:00 EDT, Height, 105, [...] EST, Supply Start Date: 06/07/21 Status: Ordered Problem List Condition Effective Dates [...] 30 days ago;Never entered on: 11/09/21 Sex Care Team Personnel Name: Candis CARDENAS, Kaiden Villalta Address: [address] [place] [address] [facility] [address]
--- OUTSIDE RECORDS SUMMARY | 2022-12-30 08:12 | XMS_ITS | Continuity of Care Document ---
Author Name Unknown Organization [facility] Address [address] [place] [address]- Care Team Providers Care Sales Ledger Clerk Name Role Phone Candis CARDENAS, Kaiden Villalta Primary Care Physician [phone] Encounter [facility] [place] Date(s): 04/06/21 - 05/06/21 [facility] [address] [place], [place] [address] Allergies, Adverse Reactions, Alerts Substance Reaction [...] # 8.5 each, 0 Refills, [id number], 20, INHALE 2 PUFFS BY MOUTH EVERY 4 HOURS NEEDED FOR WHEEZING, 160, cm, 03/30/21 10:47:00 EST, Height, 104.6, kg, 12/04/20 10:52:00 EDT, Dry Weight Start Date: 04/28/21 Status: Ordered amitriptyline 10 mg oral tablet 10 mg, 1, tablet, By Mouth, Daily at bedtime, # 90 tablet, Refills 1, Tot. Refills 1, Maintenance, 12/24/20 16:08:00 EDT, Route to Pharmacy Electronically, [facility]/pharmacy #[id number], Partial fill upon patient request if the prescription is for a schedule II... Start Date: 12/24/20 Status: Ordered baclofen 10 mg oral tablet 10 mg, 1, tablet, By Mouth, 3 times a day, PRN, # 30 tablet, Refills 0, Tot. Refills 0, Maintenance, Spasm, 01/31/19 21:47:23 EDT, Route to Pharmacy Electronically, [id number], [facility]/pharmacy #[id number] Start Date: 01/31/19 Stop Date: 02/14/19 Status: Ordered benzonatate 100 mg oral capsule 2 capsule, By Mouth, 3 times a day, PRN NEEDED FOR COUGH, # 30 capsule, 1 Refills, Physician Stop 03/19/22 17:38:00 EST, 02/19/22 16:55:00 EDT, [facility]/pharmacy #[id number], 160, cm, 12/04/20 10:52:00 EDT, Height, 104.6, kg, 12/04/20 10:52:00 EDT, Dry Weight Start Date: 02/19/22 Stop Date: 03/19/22 Status: Ordered benzonatate 100 mg oral capsule 2 capsule, By Mouth, 3 times a day, PRN NEEDED FOR COUGH, # 30 capsule, 1 Refills, Physician Stop 02/19/22 16:55:00 EDT, 02/19/21 16:54:00 EDT, [facility]/pharmacy #[id number], 160, cm, 12/04/20 10:52:00 EDT, Height, 104.6, kg, 12/04/20 10:52:00 EDT, Dry Weight Start Date: 02/19/21 Stop Date: 02/19/22 Status: Ordered clonazePAM 0.5 mg oral tablet 1 tablet = 0.5 mg, By Mouth, 4 times a day, PRN Anxiety, Patient on controlled substance contract. Please do NOT fill until 09/23/2020, # 112 tablet, 0 Refills, Maintenance, 11/18/20 21:02:00 EDT, Tablet, [facility]/pharmacy #[id number], Partial fill upon patient... Start Date: 11/18/20 Status: Ordered Famotidine 0 Refills, Maintenance, 04/07/19 16:11:00 EST Start Date: 04/07/19 Status: Ordered gabapentin 800 mg oral tablet 1 tablet, By Mouth, 4 times a day, # 360 tablet, 1 Refills, [id number], 160, cm, 03/30/21 10:47:00 EST, Height, 104.6, [...] 1 Refills, Maintenance, 02/25/21 8:28:00 EST, Capsule, [facility]/pharmacy #[id number], Partial fill upon patient request if [...] 75 mcg (0.075 mg) oral tablet 1 tablet, By Mouth, Daily before breakfast, # 90 tablet, 0 Refills, [id number], 160, cm, 03/30/21 10:47:00 EST, Height, 104.6, kg, 12/04/20 10:52:00 EDT, Dry Weight Start Date: 04/15/21 Status: Ordered meloxicam 15 mg oral tablet 1/2 TO 1 TABLET, By Mouth, Daily, PRN NEEDED FOR MODERATE PAIN, # 30 tablet, 1 Refills, [facility], 160, cm, 12/04/20 10:52:00 EDT, Height, 104.6, kg, 12/04/20 10:52:00 EDT, Dry Weight Start Date: 01/22/21 Status: Ordered omeprazole 20 mg oral enteric coated capsule 1 capsule, By Mouth, Daily, # 90 capsule, 1 Refills, [facility] 668[facility], 160, cm, 03/30/21 10:47:00 EST, Height, 104.6, kg, 12/04/20 10:52:00 EDT, Dry Weight Start Date: 03/31/21 Status: Ordered oxybutynin 5 mg oral tablet 1 tablet, By Mouth, 3 times a day, dose increase, # 270 tablet, 1 Refills, Maintenance, 03/19/21 17:40:00 EST, [facility]/pharmacy #[id number], 160, cm, 12/04/20 10:52:00 EDT, Height, 104.6, kg, 12/04/20 10:52:00EDT, Dry Weight Start Date: 03/19/21 Status: Ordered Qvar Redihaler 40 mcg/inh inhalation aerosol = 40 mcg, Inhalation, 2 times a day, to replace flovent rinse mouth and throat after use, # 1 each,1 Refills, Maintenance, 03/30/21 20:35:00 EST, [facility]/pharmacy #[id number], Partial fill upon patient request if the prescription is for a schedule II opioid d... Start Date: 03/30/21 Status: Ordered sertraline 100 mg oral tablet 2 tablet = 200 mg, By Mouth, Daily, dose increase, please hold script until patient next due (she will no longer be on 50mg tabs), # 180 tablet, 1 Refills, Maintenance, 10/30/20 8:45:00 EDT, Tablet, [facility]/pharmacy #[id number], Partial fill upon patient reques... Start Date: 10/30/20 Status: Ordered traZODone 150 mg oral tablet 1.5 tablet = 225 mg, By Mouth, Daily at bedtime, dose increase, # 135 tablet, 1 Refills, Maintenance, 04/06/21 12:26:00 EST, Tablet, [facility]/pharmacy #[id number], Partial fill upon patient request if [...]
--- OUTSIDE RECORDS SUMMARY | 2022-12-30 08:12 | XMS_ITS | Continuity of Care Document ---
Author Name Unknown Organization [facility] Address [address] [place] [address] [address], [address] [place] [address]- Care Team Providers Care Functional Mental Disability Teacher Name Role Phone Candis CARDENAS, Kaiden Villalta Primary Care Physician [phone] [place] [facility] [place] [facility] [address] [place] [address], [address] [place] [address]- Allergies, Adverse Reactions, Alerts Substance Reaction Severity [...] # 8.5 Gm,0 Refills, Maintenance, 12/22/21 10:40:00 EDT, [facility] #[id number], 2 puffs Inhalation Every 4 hours,PRN: NEEDED FOR WHEEZING/cough/shortness... Start Date: 12/22/21 Status: Ordered albuterol 0.083% inhalation solution 3 mL = 2.5 mg, Inhalation, Every 4 hours, PRN for wheezing/cough/shortness of breath, # 25 each, 0 Refills, Maintenance, 06/29/22 13:08:00 EDT, Solution, [facility] #[id number], Partial fill upon patient request if the prescription is for a sched... Start Date: 06/29/22 Status: Ordered [place] Saline Mist 0.65% nasal spray 2 sprays, Nares, Both, 4 times a day, # 1 each, 0 Refills, Maintenance, 02/04/22 13:32:00 EDT, [facility] #[id number], Partial fill upon patient request if the [...] tablet, 0 Refills, Maintenance, 12/27/21 13:43:00 EDT, [facility] #[id number], 153, cm, 10/08/21 13:23:00 EDT, Height, 113.9, kg, 10/08/21 13:23:00EDT, Dry Weight Start Date: 12/27/21 Status: Ordered chlorhexidine 2% topical liquid See Instructions, 1 application to bilateral forearms twice weekly, # 120 mL, 3 Refills, Soft Stop,06/17/22 11:06:00 EST, Liquid, [facility] #[id number], Partial fill upon patient request if the prescription is for a schedule II opioid drug., 1... Start Date: 06/17/22 Status: Ordered chlorhexidine 4% topical soap See Instructions, apply topically twice weekly to skin on forearms, # 120 mL, 2 Refills, Soft Stop,06/17/22 16:03:00 EST, [facility] #[id number], Partial fill upon patient request if the [...] 21:02:00 EDT, Tablet, [facility]/pharmacy #[id number], Partial fill upon patient... Start Date: 11/18/20 Status: Ordered diclofenac 1% topical gel = 1 Gm, Topically, 4 times a day, FOR PAIN., # 100 Gm, 1 Refills, [id number], 30, APPLY 1 GM TOPICALLY 4 TIMES A DAY FOR PAIN, 153, cm, 06/07/21 11:07:00 EST, Height, 105, kg, 05/31/21 15:15:00 EST, Dry Weight Start Date: 08/05/21 Status: Ordered Dilaudid 2 mg oral tablet 1 tablet = 2 mg, By Mouth, 2 times a day, PRN Pain , Severe, checked masspat, # 56 tablet, 0 Refills, Maintenance, 06/27/22 21:04:00 EDT, Tablet, [facility] #[id number], Partial fill upon patient request if the prescription is for a schedule II o... Start Date: 06/27/22 Status: Ordered Estrace Vaginal Cream 0.1 mg/g = 2 Gm, Vaginally, Daily at bedtime, 2g PV daily at bedtime x 2 weeks, then 1g PV 1-3x per week, # 42.5 Gm, 5 Refills, Maintenance, 11/09/21 11:17:00 EDT, [facility] #[id number], Partial fill upon patient request if the prescription is for a sche... Start Date: 11/09/21 Status: Ordered Estradiol Patch 0.0375 mg/24 hours twice weekly transdermal film, extended release See Instructions, APPLY 1 PATCH TOPICALLY TWICE WEEKLY DIRECTED, # 8 patch, 6 Refills, Maintenance, 03/23/22 16:10:00 EST, [facility] #[id number], 28, APPLY 1 PATCH TOPICALLY TWICE WEEKLY DIRECTED, 153, cm, 01/04/22 13:15:00 EDT, Height, 11... Start Date: 03/23/22 Status: Ordered fluconazole 150 mg oral tablet 1 tablet = 150 mg, By Mouth, Once, PRN vaginal yeast infection, # 1 tablet, 0 Refills, Soft Stop, 03/15/22 10:42:00 EST, Tablet, [facility] #[id number], Partial fill upon patient request if the prescription is for a schedule II opioid drug., 153,... Start Date: 03/15/22 Status: Ordered fluticasone 50 mcg/inh nasal spray See Instructions, SHAKE LIQUID AND USE 1 SPRAY IN EACH NOSTRIL TWICE DAILY, # 16 Gm, 1 Refills, Maintenance, 05/18/22 13:57:00 EST, [facility] #[id number], 30, SHAKE LIQUID AND USE 1 SPRAY IN EACH NOSTRIL TWICE DAILY, 153, cm, 04/25/22 16:23:00 E... Start Date: 05/18/22 Status: Ordered gabapentin 800 mg oral tablet 1 tablet, By Mouth, 4 times a day, # 360 tablet, 1 Refills, Maintenance, 04/19/22 12:59:00 EST, [facility] #[id number], 153, cm, 01/04/22 13:15:00 EDT, Height, 113.9, [...] ITCHING, # 90 capsule, 1 Refills, Maintenance, 05/20/22 12:57:00 EST, [facility] #[id number], 153, cm, 04/25/22 16:23:00 EST, Height, 109, kg, 04/25/22 15:54:00 EST, Dry Weight Start Date: 05/20/22 Status: Ordered Incontenence Pads, Extra Long Day [...] 1 Refills, Maintenance, 04/28/22 13:51:00 EST, Tablet, [facility] #[id number], Partial fill upon patient request if the prescription is for a schedule II opioid drug., 153, cm... Start Date: 04/28/22 Status: Ordered lidocaine 4% topical cream 1 application, Topically, 3 times a day, PRN Pain , Mild, # 30 Gm, 1 Refills, Maintenance, 06/24/2315:24:00 EST, Cream, [facility] #[id number], Partial fill upon patient request if the prescription is for a schedule II opioid drug., 1 applicatio... Start Date: 06/23/22 Status: Ordered meloxicam 15 mg oral tablet 1/2 TO 1 TABLET, By Mouth, Daily, PRN NEEDED FOR MODERATE PAIN, # 30 tablet, 5 Refills, Maintenance, 01/10/22 20:40:00 EDT, [facility] #[id number], 153, cm, 01/04/22 13:15:00 EDT, Height, 113.9, [...] Daily, # 90 capsule, 1 Refills, Maintenance, 04/19/22 12:41:00 EST, [facility] #[id number], 153, cm, 01/04/22 13:15:00 EDT, Height, 113.9, kg, 10/08/21 13:23:00 EDT, Dry Weight Start Date: 04/19/22 Status: Ordered ondansetron 4 mg oral tablet 1 tablet, By Mouth, Every 8 hours, PRN NEEDED FOR NAUSEA OR VOMITING, # 30 tablet, 1 Refills, Maintenance, 06/14/22 10:29:00 EST, [facility] #[id number], 153, cm, 06/08/22 9:37:00 EST, Height, 109, kg, 04/25/22 15:54:00 EST, Dry Weight Start Date: 06/14/22 Status: Ordered oxybutynin 5 mg oral tablet 1 tablet, By Mouth, 3 times a day, # 270 tablet, 0 Refills, Maintenance, 07/05/22 8:13:00 EDT, [facility] #[id number], 153, cm, 06/17/22 10:53:00 EST, Height, 109, [...] 07/01/22 14:21:00 EDT, Route to Pharmacy Electronically, [facility] #[id number], Partial fill upon patient request if the... Start Date: 07/01/22 Status: Ordered triamcinolone 0.1% topical cream 1 application, Topically, 3 times a day, PRN arm rash, # 30 Gm, 1 Refills, Acute 06/08/23 9:53:00 EST, 06/08/22 9:53:00 EST, Cream, [facility] #[id number], Partial fill upon patient request if the prescription is for a schedule II opioid drug., 1... Start Date: 06/08/22 Stop Date: 06/08/23 Status: Ordered Problem List Condition Confirmation Course [...] Team Personnel Name: Kaiden Chirinos MD Position: [facility] Primary Care Physician Member Role: PCP Address: Address: [address] [place] [address] Adult & [place] [address]- Care Team Related Persons Name: AGUILAR RODOLFO Address: home [address] [facility] [address] [place] [id number] Name: CHIARA TEE Address: home [address] [place] [address] [address] [place] [id number]
--- OUTSIDE RECORDS SUMMARY | 2022-12-30 08:12 | XMS_ITS | Continuity of Care Document ---
Author Name Unknown Organization [facility] Address [address] [place] [address]- Care Team Providers Care Steel Roller Name Role Phone Candis CARDENAS, Kaiden Villalta Primary Care Physician [phone] [id number] - 09/11/21 [facility] [address] [place], [place] [address] Allergies, Adverse Reactions, Alerts Substance Reaction [...] # 8.5 each, 0 Refills, [id number], 20, INHALE 2 PUFFS BY MOUTH EVERY 4 HOURS NEEDED FOR WHEEZING, 160, cm, 03/30/21 10:47:00 EST, Height, 104.6, kg, 12/04/20 10:52:00 EDT, Dry Weight Start Date: 04/28/21 Status: Ordered amitriptyline 10 mg oral tablet 10 mg, 1, tablet, By Mouth, Daily at bedtime, # 90 tablet, Refills 1, Tot. Refills 1, Maintenance, 07/30/21 12:25:00 EDT, Route to Pharmacy Electronically, [facility] #[id number], Partial fill upon patient request if the prescription is for a jasmin... Start Date: 07/30/21 Status: Ordered benzonatate 100 mg oral capsule 2 capsule, By Mouth, 3 times a day, PRN NEEDED FOR COUGH, # 30 capsule, 1 Refills, Physician Stop 03/19/22 17:38:00 EST, 02/19/22 16:55:00 EDT, [facility]/pharmacy #[id number], 160, cm, 12/04/20 10:52:00 EDT, Height, 104.6, kg, 12/04/20 10:52:00 EDT, Dry Weight Start Date: 02/19/22 Stop Date: 03/19/22 Status: Ordered benzonatate 100 mg oral capsule 2 capsule, By Mouth, 3 times a day, PRN NEEDED FOR COUGH, # 30 capsule, 1 Refills, Physician Stop 02/19/22 16:55:00 EDT, 02/19/21 16:54:00 EDT, [facility]/pharmacy #[id number], 160, cm, 12/04/20 10:52:00 EDT, Height, 104.6, kg, 12/04/20 10:52:00 EDT, Dry Weight Start Date: 02/19/21 Stop Date: 02/19/22 Status: Ordered clonazePAM 0.5 mg oral tablet 1 tablet = 0.5 mg, By Mouth, 4 times a day, PRN Anxiety, Patient on controlled substance contract. Please do NOT fill until 09/23/2020, # 112 tablet, 0 Refills, Maintenance, 11/18/20 21:02:00 EDT, Tablet, [facility]/pharmacy #[id number], Partial fill upon patient... Start Date: 11/18/20 Status: Ordered diclofenac 1% topical gel = 1 Gm, Topically, 4 times a day, FOR PAIN., # 100 Gm, 1 Refills, [facility], 30, APPLY 1 GM TOPICALLY 4 TIMES A DAY FOR PAIN, 153, cm, 06/07/21 11:07:00 EST, Height, 105, kg, 05/31/21 15:15:00 EST, Dry Weight Start Date: 08/05/21 Status: Ordered Dilaudid 2 mg oral tablet 1 tablet = 2 mg, By Mouth, 2 times a day, PRN Pain , Severe, # 28 tablet, 0 Refills, Maintenance, 08/09/21 22:27:00 EDT, Tablet, [facility] #[id number], Partial fill upon patient request if the prescription is for a schedule II opioid drug., 153,... Start Date: 08/09/21 Status: Ordered Dilaudid 2 mg oral tablet 1 tablet = 2 mg, By Mouth, 2 times a day, PRN Pain , Severe, # 28 tablet, 0 Refills, Maintenance, 09/06/21 16:20:00 EDT, Tablet, [facility] #[id number], Partial fill upon patient request if the prescription is for a schedule II opioid drug., 153,... Start Date: 09/06/21 Status: Ordered Famotidine 0 Refills, Maintenance, 04/07/19 16:11:00 EST Start Date: 04/07/19 Status: Ordered gabapentin 800 mg oral tablet 1 tablet, By Mouth, 4 times a day, # 360 tablet, 1 Refills, [facility] 133[facility], 160, cm, 03/30/21 10:47:00 EST, Height, 104.6, [...] FOR ITCHING, # 90 capsule, 1 Refills, [facility] 45[facility], 153, cm, 06/07/21 11:07:00 EST, Height, 105, kg, 05/31/21 15:15:00 EST, Dry Weight Start Date: 08/01/21 Status: Ordered Incontenence Pads, Extra Long Day [...] 1 Refills, Maintenance, 07/30/21 12:25:00 EDT, Tablet, [facility] #[id number], Partial fill upon patient request if the prescription is for a schedule II opioid drug... Start Date: 07/30/21 Status: Ordered omeprazole 20 mg oral enteric coated capsule 1 capsule, By Mouth, Daily, # 90 capsule, 1 Refills, [facility] 86[facility], 160, cm, 03/30/21 10:47:00 EST, Height, 104.6, kg, 12/04/20 10:52:00 EDT, Dry Weight Start Date: 03/31/21 Status: Ordered ondansetron 4 mg oral tablet 1 tablet = 4 mg, By Mouth, Every 8 hours, PRN Nausea & Vomiting, # 30 tablet, 1 Refills, Maintenance, 08/12/21 13:26:00 EDT, [facility] #[id number], 153, cm, 08/10/21 11:19:00 EDT, Height, 105, kg, 05/31/21 15:15:00 EST, Dry Weight Start Date: 08/12/21 Status: Ordered oxybutynin 5 mg oral tablet 1 tablet, By Mouth, 3 times a day, # 270 tablet, 1 Refills, [facility], 153, cm, 08/10/21 11:19:00 EDT, Height, 105, kg, 05/31/21 15:15:00 EST, Dry Weight Start Date: 09/09/21 Status: Ordered Right ankle stirrup air cast Right ankle stirrup air cast, See Instructions, # 1 each, Refills 0, Tot. Refills 0, Maintenance, To be worn on ambulation, 06/07/21 11:32:00 EST, Supply Start Date: 06/07/21 Status: Ordered sertraline 100 mg oral tablet 2 tablet = 200 mg, By Mouth, Daily, # 28 tablet, 0 Refills, Maintenance, 08/13/21 16:34:00 EDT, Tablet, [facility] #[id number], Partial fill upon patient request if the prescription is for a schedule II opioid drug., 153, cm, 08/10/21 11:19:00 ED... Start Date: 08/13/21 Status: Ordered traZODone 150 mg oral tablet 1.5 tablet = 225 mg, By Mouth, Daily at bedtime, # 135 tablet, 1 Refills, Maintenance, 07/30/21 12:25:00 EDT, Tablet, [facility] #[id number], Partial fill upon patient request if the prescription is for a schedule II opioid drug., 153, cm, ... Start Date: 07/30/21 Status: Ordered Vitamin D3 50,000 intl units oral capsule TAKE 1 CAPSULE BY MOUTH ONCE A WEEK Start Date: 09/07/20 Status: Ordered ZyrTEC 10 mg oral tablet 1 tablet = 10 mg, By Mouth, Daily, # 90 tablet, 1 Refills, Maintenance, 07/30/21 12:22:00 EDT, Tablet, [facility] #[id number], Partial fill upon patient request if the [...]
--- OUTSIDE RECORDS SUMMARY | 2022-12-30 08:12 | XMS_ITS | Continuity of Care Document ---
Author Name Unknown Organization [facility] Address [address] [place] [address]- Care Team Providers Care Alarm Operator Name Role Phone Candis CARDENAS, Kaiden Villalta Primary Care Physician [place] [facility] [place] 01[place]/22 [facility] [address] [place], [place] [address] Attending Physician: Marija Alvarez MD, V Allergies, Adverse Reactions, Alerts Substance Reaction Severity [...] 8.5 Gm,0 Refills, Maintenance, 12/22/21 10:40:00 EDT, [email or web address] #[id number], 2 puffs Inhalation Every 4 hours,PRN: NEEDED FOR WHEEZING/cough/shortness... Start Date: 12/22/21 Status: Ordered albuterol 0.083% inhalation solution 3 mL = 2.5 mg, Inhalation, Every 4 hours, PRN for wheezing/cough/shortness of breath, # 25 each, 0 Refills, Maintenance, 10/14/21 22:10:00 EDT, Solution, [facility] #[id number], Partial fill upon patient request if the prescription is for a sched... Start Date: 10/14/21 Status: Ordered buPROPion 150 mg/24 hours (XL) [...] tablet, 0 Refills, Maintenance, 12/27/21 13:43:00 EDT, [facility] #[id number], 153, cm, 10/08/21 13:23:00 EDT, Height, 113.9, kg, 10/08/21 13:23:00EDT, Dry Weight Start Date: 12/27/21 Status: Ordered clonazePAM 0.5 mg oral tablet 1 tablet = 0.5 mg, By Mouth, 4 times a day, PRN Anxiety, Patient on controlled substance contract. Please do NOT fill until 09/23/2020, # 112 tablet, 0 Refills, Maintenance, 11/18/20 21:02:00 EDT, Tablet, [facility]/pharmacy #[id number], Partial fill upon patient... Start Date: 11/18/20 Status: Ordered diclofenac 1% topical gel = 1 Gm, Topically, 4 times a day, FOR PAIN., # 100 Gm, 1 Refills, [email or web address], 30, APPLY 1 GM TOPICALLY 4 TIMES A DAY FOR PAIN, 153, cm, 06/07/21 11:07:00 EST, Height, 105, kg, 05/31/21 15:15:00 EST, Dry Weight Start Date: 08/05/21 Status: Ordered Dilaudid 2 mg oral tablet 1 tablet = 2 mg, By Mouth, 2 times a day, PRN Pain , Severe, checked masspat, # 28 tablet, 0 Refills, Maintenance, 01/05/22 10:35:00 EDT, Tablet, [facility] #[id number], Partial fill upon patient request if the prescription is for a schedule II o... Start Date: 01/05/22 Status: Ordered Estrace Vaginal Cream 0.1 mg/g = 2 Gm, Vaginally, Daily at bedtime, 2g PV daily at bedtime x 2 weeks, then 1g PV 1-3x per week, # 42.5 Gm, 5 Refills, Maintenance, 11/09/21 11:17:00 EDT, [facility] #[id number], Partial fill upon patient request if the prescription is for a sche... Start Date: 11/09/21 Status: Ordered estradiol 0.0375 mg/24 hours twice weekly transdermal film, extended release See Instructions, 1 patch Topically, change patch twice a week, # 1 pack/packet, 1 Refills, Maintenance, 12/07/21 10:42:00 EDT, [facility] #[id number], Partial fill upon patient request if the prescription is for a schedule II opioid drug., 153,... Start Date: 12/07/21 Status: Ordered gabapentin 800 mg oral tablet See Instructions, TAKE 1 TABLET BY MOUTH FOUR TIMES DAILY, # 360 tablet, 0 Refills, [facility] #[id number], 153, cm, 10/08/21 13:23:00 EDT, Height, 113.9, [...] capsule, 1 Refills, Maintenance, 12/08/21 10:10:00 EDT, [facility] #[id number], 153, cm, 10/08/21 13:23:00 EDT, Height, 113.9,kg, [...] 1 Refills, Maintenance, 07/30/21 12:25:00 EDT, Tablet, [facility] #38013, Partial fill upon patient request if the prescription is for a schedule II opioid drug... Start Date: 07/30/21 Status: Ordered levothyroxine 0.1 mg oral tablet 1 tablet = 100 mcg, By Mouth, Daily, dose increase, # 90 tablet, 0 Refills, Maintenance, 11/01/21 16:08:00 EDT, [facility] #[id number], Please discontinue 88ug, 153, cm, 10/08/21 13:23:00 [...] tablet, 1 Refills, Maintenance, 11/30/21 15:44:00 EDT, [facility] #[id number], [place]... Start Date: 11/30/21 Status: Ordered lidocaine 3% topical gel 1 application, Topically, 2 times a day, PRN as needed for pain, to replace 2% topical, # 28.5 Gm, 2 Refills, Acute 03/29/22 14:17:00 EST, 12/28/21 14:17:00 EDT, Gel, [facility] #[id number], Partial fill upon patient request if the prescription i... Start Date: 12/28/21 Stop Date: 03/29/22 Status: Ordered lidocaine 4% topical cream 1 application, Topically, 2 times a day, PRN Pain , Mild, # 30 Gm, 1 Refills, Acute 01/27/22 17:31:00 EDT, 12/28/21 17:31:00 EDT, Cream, [facility] #[id number], Partial fill upon patient requestif the prescription is for a schedule II opioid cedrick... Start Date: 12/28/21 Stop Date: 01/27/22 Status: Ordered meloxicam 15 mg oral tablet 1/2 TO 1 TABLET, By Mouth, Daily, PRN NEEDED FOR MODERATE PAIN, # 30 tablet, 5 Refills, Maintenance, 01/10/22 20:40:00 EDT, [facility] #[id number], 153, cm, 01/04/22 13:15:00 EDT, Height, 113.9, [...] 90 capsule, 0 Refills, 09/27/21 14:31:00 EDT, [facility] #09111, 153, cm, 08/10/21 11:19:00 EDT, Height, 105, kg, 05/31/21 15:15:00 EST, Dry Weight Start Date: 09/27/21 Status: Ordered ondansetron 4 mg oral tablet 1 tablet = 4 mg, By Mouth, Every 8 hours, PRN Nausea & Vomiting, # 30 tablet, 1 Refills, Maintenance, 11/10/21 14:47:00 EDT, [facility] #[id number], 153, cm, 10/08/21 13:23:00 EDT, Height, 113.9, kg, 10/08/21 13:23:00 EDT, Dry Weight Start Date: 11/10/21 Status: Ordered oxybutynin 5 mg oral tablet 1 tablet, By Mouth, 3 times a day, # 270 tablet, 1 Refills, 01/10/22 10:29:00 EDT, [facility] #[id number], 153, cm, 01/04/22 13:15:00 EDT, Height, 113.9, kg, 10/08/21 13:23:00 EDT, Dry Weight Start Date: 01/10/22 Status: Ordered Rapid Antigen home covid swab [...] Severe obesity(Confirmed) Active Adult night terrors(Confirmed) Active Vital Signs Most recent to oldest [Reference Range]: 1 Height 153 cm (01/04/22 1:15 PM) Weight 111.0 kg (01/04/22 1:15 PM) Body Mass Index [18.5-24.99 kg/m2] 47.42 kg/m2 *>HHI* (01/04/22 1:15 PM) Weight Obtained Via Standing scale (01/04/22 1:15 PM) Social History Social History Type Response Smoking Status Former smoker, quit more than 30 days ago;Never entered on: 11/09/21 Sex Care Team Personnel Name: Candis CARDENAS, Kaiden Villalta Address: [address] [place] [address] Adult & Pediatric [place], [place] [address]
--- OUTSIDE RECORDS SUMMARY | 2022-12-30 08:12 | XMS_ITS | Continuity of Care Document ---
Author Name Unknown Organization [facility] Address [address] [place] [address]- Care Team Providers Care Psychiatrist Name Role Phone Kaiden Chirinos MD Primary Care Physician [place] [facility] [place]20 [facility] [address] [place], [place] [address] Allergies, Adverse Reactions, Alerts Substance [...] tablet, Refills 1, Tot. Refills 1, Maintenance, 09/22/20 16:39:00 EDT, Route to Pharmacy Electronically, [facility]/pharmacy #[id number], Partial fill upon patient request if the prescription is for a schedule II... Start Date: 09/22/20 Status: Ordered baclofen 10 mg oral tablet 10 mg, 1, tablet, By Mouth, 3 times a day, PRN, # 30 tablet, Refills 0, Tot. Refills 0, Maintenance, Spasm, 01/31/19 21:47:23 EDT, Route to Pharmacy Electronically, [id number], [facility]/pharmacy #[id number] Start Date: 01/31/19 Stop Date: 02/14/19 Status: Ordered clonazePAM 0.5 mg oral tablet 1 tablet = 0.5 mg, By Mouth, 4 times a day, PRN Anxiety, Patient on controlled substance contract. Please do NOT fill until 09/23/2020, # 112 tablet, 0 Refills, Maintenance, 11/18/20 21:02:00 EDT, Tablet, [facility]/pharmacy #[id number], Partial fill upon patient... Start Date: 11/18/20 Status: Ordered Famotidine 0 Refills, Maintenance, 04/07/19 16:11:00 EST Start Date: 04/07/19 Status: Ordered gabapentin 800 mg oral tablet 1 tablet = 800 mg, By Mouth, 4 times a day, # 360 tablet, 1 Refills, Maintenance, 11/09/20 23:47:00EDT, Tablet, [facility]/pharmacy #[id number], Partial fill upon patient request if [...] 16:12:00 EST Start Date: 04/07/19 Status: Ordered Incontenence Pads, Extra Long Day [...] 1 Refills, Maintenance, 11/05/20 11:43:00 EDT, Tablet, [facility]/pharmacy #[id number], Partial fill upon patient request if the prescription is for a schedule II opioid drug., 160, cm, 10/30/20 8:2... Start Date: 11/05/20 Status: Ordered meloxicam 15 mg oral tablet See Instructions, PRN Pain , Moderate, 0.5 to1 tab PO daily with food, # 30 capsule, 1 Refills, Maintenance, 12/04/20 11:27:00 EDT, Tablet, [facility] #[id number], Partial fill upon patient request if the prescription is for a schedule II opioid drug., 16... Start Date: 12/04/20 Status: Ordered omeprazole 20 mg oral enteric coated capsule 1 capsule = 20 mg, By Mouth, Daily, # 90 capsule, 0 Refills, Maintenance, 10/21/20 16:27:00 EDT, [facility], Partial fill upon patient request if the prescription is for a schedule II opioid drug., 160, cm, 09/07/20 13:05:00 EDT, Height, 107, kg, 2... Start Date: 10/21/20 Status: Ordered oxybutynin 5 mg oral tablet 1 tablet, By Mouth, 2 times a day, # 60 tablet, 1 Refills, Maintenance, 11/27/20 17:20:00 EDT, [id number], 160, cm, 10/30/20 8:28:00 EDT, Height, 105.5, kg, 10/30/20 8:28:00 EDT, Dry Weight Start Date: 11/27/20 Status: Ordered ProAir HFA 90 mcg/inh inhalation aerosol 2 puffs, Inhalation, Every 4 hours, PRN as needed for wheezing, # 8.5 Gm, 0 Refills, Maintenance, 11/16/20 8:39:00 EDT, Aerosol, [facility]/pharmacy #[id number], Partial fill upon patient request if the prescription is for a schedule II opioid drug., 2 puffs Inhal... Start Date: 11/16/20 Status: Ordered sertraline 100 mg oral tablet 2 tablet = 200 mg, By Mouth, Daily, dose increase, please hold script until patient next due (she will no longer be on 50mg tabs), # 180 tablet, 1 Refills, Maintenance, 10/30/20 8:45:00 EDT, Tablet, [facility]/pharmacy #[id number], Partial fill upon patient reques... Start Date: 10/30/20 Status: Ordered traZODone 150 mg oral tablet 1 tablet = 150 mg, By Mouth, Daily at bedtime, dose increase, # 90 tablet, 1 Refills, Maintenance, 11/03/20 13:28:00 EDT, Tablet, [facility]/pharmacy #[id number], Partial fill upon patient request if the prescription is for a schedule II opioid drug., 160, cm, ... Start Date: 11/03/20 Status: Ordered Vitamin D3 50,000 intl units [...]
--- OUTSIDE RECORDS SUMMARY | 2022-12-30 08:12 | XMS_ITS | Continuity of Care Document ---
Author Name Unknown Organization [facility] Address [address] [place] [address]- Care Team Providers Care Business Information Consultant Name Role Phone Candis CARDENAS, Kaiden Villalta Primary Care Physician [phone] [place] [facility] [place]/22 [facility] [address] [place], [place] [address] Allergies, Adverse Reactions, Alerts Substance Reaction Severity [...] 8.5 Gm,0 Refills, Maintenance, 12/22/21 10:40:00 EDT, [facility] #[id number], 2 puffs Inhalation Every 4 hours,PRN: NEEDED FOR WHEEZING/cough/shortness... Start Date: 12/22/21 Status: Ordered albuterol 0.083% inhalation solution 3 mL = 2.5 mg, Inhalation, Every 4 hours, PRN for wheezing/cough/shortness of breath, # 25 each, 0 Refills, Maintenance, 10/14/21 22:10:00 EDT, Solution, [facility] #[id number], Partial fill upon patient request if the prescription is for a sched... Start Date: 10/14/21 Status: Ordered [place] Saline Mist 0.65% nasal spray 2 sprays, Nares, Both, 4 times a day, # 1 each, 0 Refills, Maintenance, 02/04/22 13:32:00 EDT, [facility] #[id number], Partial fill upon patient request if the [...] tablet, 0 Refills, Maintenance, 12/27/21 13:43:00 EDT, [facility] #[id number], 153, cm, 10/08/21 13:23:00 EDT, Height, 113.9, kg, 10/08/21 13:23:00EDT, Dry Weight Start Date: 12/27/21 Status: Ordered clonazePAM 0.5 mg oral tablet 1 tablet = 0.5 mg, By Mouth, 4 times a day, PRN Anxiety, Patient on controlled substance contract. Please do NOT fill until 09/23/2020, # 112 tablet, 0 Refills, Maintenance, 11/18/20 21:02:00 EDT, Tablet, [facility]/pharmacy #[id number], Partial fill upon patient... Start Date: 11/18/20 Status: Ordered diclofenac 1% topical gel = 1 Gm, Topically, 4 times a day, FOR PAIN., # 100 Gm, 1 Refills, [id number], 30, APPLY 1 GM TOPICALLY 4 TIMES A DAY FOR PAIN, 153, cm, 06/07/21 11:07:00 EST, Height, 105, kg, 05/31/21 15:15:00 EST, Dry Weight Start Date: 08/05/21 Status: Ordered Dilaudid 2 mg oral tablet 1 tablet = 2 mg, By Mouth, 2 times a day, PRN Pain , Severe, checked masspat, # 28 tablet, 0 Refills, Maintenance, 02/04/22 13:38:00 EDT, Tablet, [facility] #[id number], Partial fill upon patient request if the prescription is for a schedule II o... Start Date: 02/04/22 Status: Ordered Estrace Vaginal Cream 0.1 mg/g = 2 Gm, Vaginally, Daily at bedtime, 2g PV daily at bedtime x 2 weeks, then 1g PV 1-3x per week, # 42.5 Gm, 5 Refills, Maintenance, 11/09/21 11:17:00 EDT, [facility] #[id number], Partial fill upon patient request if the prescription is for a sche... Start Date: 11/09/21 Status: Ordered Estradiol Patch 0.0375 mg/24 hours twice weekly transdermal film, extended release See Instructions, APPLY 1 PATCH TOPICALLY TWICE WEEKLY DIRECTED, # 8 patch, 0 Refills, Maintenance, 02/01/22 11:03:00 EDT, [facility] #[id number], 28, APPLY 1 PATCH TOPICALLY TWICE WEEKLY DIRECTED, 153, cm, 01/04/22 13:15:00 EDT, Height, 11... Start Date: 02/01/22 Status: Ordered gabapentin 800 mg oral tablet See Instructions, TAKE 1 TABLET BY MOUTH FOUR TIMES DAILY, # 360 tablet, 0 Refills, [facility] #[id number], 153, cm, 10/08/21 13:23:00 EDT, Height, 113.9, [...] capsule, 1 Refills, Maintenance, 12/08/21 10:10:00 EDT, [facility] #[id number], 153, cm, 10/08/21 13:23:00 EDT, Height, 113.9,kg, [...] 1... Start Date: 11/11/20 Status: Ordered levothyroxine 0.112 mg oral tablet 1 tablet = 112 mcg, By Mouth, Daily, avoid antacids, calcium, or iron for at least 4 hrs before or 4 hrs after on an empty stomach dose increase, # 30 tablet, 1 Refills, Maintenance, 11/30/21 15:44:00 EDT, Tablet, [facility] #[id number], [place]... Start Date: 11/30/21 Status: Ordered levothyroxine 0.112 mg oral tablet 1 tablet, By Mouth, Daily, AVOID ANTACIDS, CALCIUM, OR IRON FOR AT LEAST 4 HOURS BEFORE OR 4 HOURS AFTER; ON AN ON AN EMPTY STOMACH, # 90 tablet, 0 Refills, Maintenance, 01/20/22 17:46:00 EDT, [facility] #[id number], 153, cm, 01/04/22 13:15:00 ED... Start Date: 01/20/22 Status: Ordered lidocaine 3% topical gel 1 application, Topically, 2 times a day, PRN as needed for pain, to replace 2% topical, # 28.5 Gm, 2 Refills, Acute 03/29/22 14:17:00 EST, 12/28/21 14:17:00 EDT, Gel, [facility] #[id number], Partial fill upon patient request if the prescription i... Start Date: 12/28/21 Stop Date: 03/29/22 Status: Ordered meloxicam 15 mg oral tablet 1/2 TO 1 TABLET, By Mouth, Daily, PRN NEEDED FOR MODERATE PAIN, # 30 tablet, 5 Refills, Maintenance, 01/10/22 20:40:00 EDT, [facility] #[id number], 153, cm, 01/04/22 13:15:00 EDT, Height, 113.9, [...] Daily, # 90 capsule, 0 Refills, Maintenance, 01/16/22 8:28:00 EDT, [facility] #[id number], 153, cm, 01/04/22 13:15:00 EDT, Height, 113.9, kg, 10/08/21 13:23:00 EDT, Dry Weight Start Date: 01/16/22 Status: Ordered ondansetron 4 mg oral tablet 1 tablet = 4 mg, By Mouth, Every 8 hours, PRN Nausea & Vomiting, # 30 tablet, 1 Refills, Maintenance, 11/10/21 14:47:00 EDT, [facility] #[id number], 153, cm, 10/08/21 13:23:00 EDT, Height, 113.9, kg, 10/08/21 13:23:00 EDT, Dry Weight Start Date: 11/10/21 Status: Ordered oxybutynin 5 mg oral tablet 1 tablet, By Mouth, 3 times a day, # 270 tablet, 1 Refills, 01/10/22 10:29:00 EDT, [facility] #[id number], 153, cm, 01/04/22 13:15:00 EDT, Height, 113.9, [...] EST, Supply Start Date: 06/07/21 Status: Ordered Tessalon Perles 100 mg oral capsule 1 capsule = 100 mg, By Mouth, 3 times a day, for 7 days, # 21 capsule, 0 Refills, Acute 02/11/22 13:31:00 EDT, 02/04/22 13:31:00 EDT, Capsule, [facility] #[id number], Partial fill upon patient request if the prescription is for a schedule II opio... Start Date: 02/04/22 Stop Date: 02/11/22 Status: Ordered Problem List Condition Confirmation Course [...] on: 11/09/21 Sex Patient Care team information Personnel Name: Candis CARDENAS, Kaiden Villalta Address: Address: [address] [place] [address] Adult & Pediatric Medicine [place], [place] [address]
--- OUTSIDE RECORDS SUMMARY | 2022-12-30 08:12 | XMS_ITS | Continuity of Care Document ---
Author Name Unknown Organization [facility] Address [address] [place] [address]- Care Team Providers Care Traffic Worker Name Role Phone Kaiden Chirinos MD Primary Care Physician [place] [facility] [place]): 12/24/20 - 01/23/21 [facility] [address] [place], [place] [address] Allergies, Adverse Reactions, Alerts Substance Reaction [...] 12/24/20 16:08:00 EDT, Route to Pharmacy Electronically, [facility]/pharmacy #[id number], Partial fill upon patient request if the prescription is for a schedule II... Start Date: 12/24/20 Status: Ordered baclofen 10 mg oral tablet 10 mg, 1, tablet, By Mouth, 3 times a day, PRN, # 30 tablet, Refills 0, Tot. Refills 0, Maintenance, Spasm, 01/31/19 21:47:23 EDT, Route to Pharmacy Electronically, [id number], [facility]/pharmacy #[id number] Start Date: 01/31/19 Stop Date: 02/14/19 Status: Ordered benzonatate 100 mg oral capsule 2 capsule, By Mouth, 3 times a day, PRN NEEDED FOR COUGH, # 30 capsule, 0 Refills, [facility] [id number], 160, cm, 12/04/20 10:52:00 EDT, Height, 104.6, kg, 12/04/20 10:52:00 EDT, Dry Weight Start Date: 01/22/21 Status: Ordered clonazePAM 0.5 mg oral tablet 1 tablet = 0.5 mg, By Mouth, 4 times a day, PRN Anxiety, Patient on controlled substance contract. Please do NOT fill until 09/23/2020, # 112 tablet, 0 Refills, Maintenance, 11/18/20 21:02:00 EDT, Tablet, [facility]/pharmacy #[id number], Partial fill upon patient... Start Date: 11/18/20 Status: Ordered Famotidine 0 Refills, Maintenance, 04/07/19 16:11:00 EST Start Date: 04/07/19 Status: Ordered gabapentin 800 mg oral tablet 1 tablet = 800 mg, By Mouth, 4 times a day, # 360 tablet, 1 Refills, Maintenance, 11/09/20 23:47:00EDT, Tablet, [facility]/pharmacy #[id number], Partial fill upon patient [...] 1 Refills, Maintenance, 11/05/20 11:43:00 EDT, Tablet, [facility]/pharmacy #[id number], Partial fill upon patient request if the prescription is for a schedule II opioid drug., 160, cm, 10/30/20 8:2... Start Date: 11/05/20 Status: Ordered meloxicam 15 mg oral tablet 1/2 TO 1 TABLET, By Mouth, Daily, PRN NEEDED FOR MODERATE PAIN, # 30 tablet, 1 Refills, [facility] [id number], 160, cm, 12/04/20 10:52:00 EDT, Height, 104.6, kg, 12/04/20 10:52:00 EDT, Dry Weight Start Date: 01/22/21 Status: Ordered omeprazole 20 mg oral enteric coated capsule 1 capsule, By Mouth, Daily, # 90 capsule, 0 Refills, Maintenance, 01/14/21 13:42:00 EDT, [id number], 160, cm, 12/04/20 10:52:00 EDT, Height, 104.6, kg, 12/04/20 10:52:00 EDT, Dry Weight Start Date: 01/14/21 Status: Ordered oxybutynin 5 mg oral tablet 1 tablet, By Mouth, 2 times a day, # 180 tablet, 1 Refills, Maintenance, 12/24/20 16:08:00 EDT, [facility]/pharmacy #[id number], 160, cm, 12/04/20 10:52:00 EDT, Height, 104.6, kg, 12/04/20 10:52:00 EDT, Dry Weight Start Date: 12/24/20 Status: Ordered ProAir HFA 90 mcg/inh inhalation [...] 1 Refills, Maintenance, 11/03/20 13:28:00 EDT, Tablet, [id number], Partial fill upon [...]
--- OUTSIDE RECORDS SUMMARY | 2022-12-30 08:12 | XMS_ITS | Continuity of Care Document ---
Author Name Unknown Organization [facility] Address [address] [place] [address]- Care Team Providers Care Residential Collections Name Role Phone Candis CARDENAS, Kaiden Villalta Primary Care Physician Encounter [facility] [place] Date(s): 01/21/21 - 02/20/21 [facility] [address] [place], [place] [address] Allergies, Adverse Reactions, Alerts Substance [...] 12/24/20 16:08:00 EDT, Route to Pharmacy Electronically, [facility]/pharmacy #[id number], Partial fill upon patient request if the prescription is for a schedule II... Start Date: 12/24/20 Status: Ordered baclofen 10 mg oral tablet 10 mg, 1, tablet, By Mouth, 3 times a day, PRN, # 30 tablet, Refills 0, Tot. Refills 0, Maintenance, Spasm, 01/31/19 21:47:23 EDT, Route to Pharmacy Electronically, [id number], [facility]/pharmacy #[id number] Start Date: 01/31/19 Stop Date: 02/14/19 Status: Ordered benzonatate 100 mg oral capsule 2 capsule, By Mouth, 3 times a day, PRN NEEDED FOR COUGH, # 30 capsule, 1 Refills, Physician Stop 02/19/22 16:55:00 EDT, 02/19/21 16:54:00 EDT, [facility]/pharmacy #[id number], 160, cm, 12/04/20 10:52:00 EDT, Height, 104.6, kg, 12/04/20 10:52:00 EDT, Dry Weight Start Date: 02/19/21 Stop Date: 02/19/22 Status: Ordered clonazePAM 0.5 mg oral tablet 1 tablet = 0.5 mg, By Mouth, 4 times a day, PRN Anxiety, Patient on controlled substance contract. Please do NOT fill until 09/23/2020, # 112 tablet, 0 Refills, Maintenance, 11/18/20 21:02:00 EDT, Tablet, [facility]/pharmacy #[id number], Partial fill upon patient... Start Date: 11/18/20 Status: Ordered Famotidine 0 Refills, Maintenance, 04/07/19 16:11:00 EST Start Date: 04/07/19 Status: Ordered gabapentin 800 mg oral tablet 1 tablet = 800 mg, By Mouth, 4 times a day, # 360 tablet, 1 Refills, Maintenance, 11/09/20 23:47:00EDT, Tablet, [facility]/pharmacy #[id number], Partial fill upon patient request [...] Refills, Maintenance, 11/05/20 11:43:00 EDT, Tablet, [facility]/pharmacy #[id number], Partial fill upon patient request if the prescription is for a schedule II opioid drug., 160, cm, 10/30/20 8:2... Start Date: 11/05/20 Status: Ordered meloxicam 15 mg oral tablet 1/2 TO 1 TABLET, By Mouth, Daily, PRN NEEDED FOR MODERATE PAIN, # 30 tablet, 1 Refills, [facility] [id number], 160, cm, 12/04/20 10:52:00 EDT, Height, 104.6, kg, 12/04/20 10:52:00 EDT, Dry Weight Start Date: 01/22/21 Status: Ordered omeprazole 20 mg oral enteric coated capsule 1 capsule, By Mouth, Daily, # 90 capsule, 0 Refills, Maintenance, 01/14/21 13:42:00 EDT, [facility]/pharmacy #[id number], 160, cm, 12/04/20 10:52:00 EDT, Height, 104.6, kg, 12/04/20 10:52:00 EDT, Dry Weight Start Date: 01/14/21 Status: Ordered ondansetron 4 mg oral tablet See Instructions, TAKE 1 TABLET BY MOUTH EVERY 8 HOURS NEEDED FOR NAUSEA AND VOMITING, # 15 tablet, 0 Refills, [facility] 07656, 160, cm, 12/04/20 10:52:00 EDT, Height, 104.6, kg, 12/04/20 10:52:00EDT, Dry Weight Start Date: 02/13/21 Status: Ordered oxybutynin 5 mg oral tablet 1 tablet, By Mouth, 2 times a day, # 180 tablet, 1 Refills, Maintenance, 12/24/20 16:08:00 EDT, [id number], 160, cm, 12/04/20 10:52:00 [...]
--- OUTSIDE RECORDS SUMMARY | 2022-12-30 08:12 | XMS_ITS | Continuity of Care Document ---
Author Name Unknown Organization [facility] Address [address] [place] [address]- Care Team Providers Care Psychologist Clinical Name Role Phone Kaiden Chirinos MD Primary Care [id number] Date[facility] 06/04/21 - 07/04/21 [facility] [address] [place], [place] [address] Attending Physician: Kaiden Chirinos MD Allergies, Adverse [...] FOR WHEEZING, # 8.5 each, 0 Refills, [facility] 57267, 20, INHALE 2 PUFFS BY MOUTH EVERY 4 HOURS NEEDED FOR WHEEZING, 160, cm, 03/30/21 10:47:00 EST, Height, 104.6, kg, 12/04/20 10:52:00 EDT, Dry Weight Start Date: 04/28/21 Status: Ordered amitriptyline 10 mg oral tablet 10 mg, 1, tablet, By Mouth, Daily at bedtime, # 90 tablet, Refills 1, Tot. Refills 1, Maintenance, 12/24/20 16:08:00 EDT, Route to Pharmacy Electronically, [facility]/pharmacy #[id number], Partial fill upon patient request if the prescription is for a schedule II... Start Date: 12/24/20 Status: Ordered baclofen 10 mg oral tablet 10 mg, 1, tablet, By Mouth, 3 times a day, PRN, # 30 tablet, Refills 0, Tot. Refills 0, Maintenance, Spasm, 01/31/19 21:47:23 EDT, Route to Pharmacy Electronically, [id number], [facility]/pharmacy #[id number] Start Date: 01/31/19 Stop Date: 02/14/19 Status: Ordered benzonatate 100 mg oral capsule 2 capsule, By Mouth, 3 times a day, PRN NEEDED FOR COUGH, # 30 capsule, 1 Refills, Physician Stop 03/19/22 17:38:00 EST, 02/19/22 16:55:00 EDT, [facility]/pharmacy #[id number], 160, cm, 12/04/20 10:52:00 EDT, Height, 104.6, kg, 12/04/20 10:52:00 EDT, Dry Weight Start Date: 02/19/22 Stop Date: 03/19/22 Status: Ordered benzonatate 100 mg oral capsule 2 capsule, By Mouth, 3 times a day, PRN NEEDED FOR COUGH, # 30 capsule, 1 Refills, Physician Stop 02/19/22 16:55:00 EDT, 02/19/21 16:54:00 EDT, [facility]/pharmacy #[id number], 160, cm, 12/04/20 10:52:00 EDT, [...] Severe, # 28 tablet, 0 Refills, Acute 06/30/22 10:07:00 EDT, 06/30/21 10:06:00 EDT, Tablet, [id number], Partial fill upon patient request if the prescription is for a schedule II opioid drRobert.. Start Date: 06/30/21 Stop Date: 06/30/22 Status: Ordered Famotidine 0 Refills, Maintenance, 04/07/19 16:11:00 EST Start Date: 04/07/19 Status: Ordered gabapentin 800 mg oral tablet 1 tablet, By Mouth, 4 times a day, # 360 tablet, 1 Refills, [facility] 11574, 160, cm, 03/30/21 10:47:00 EST, Height, 104.6, [...] itchiness, # 90 capsule, 1 Refills, Maintenance, 06/07/21 19:08:00 EST, Capsule, [id number], Partial fill upon patient request if the prescription is for a schedule II opioid drug., 153, cm, 05/19... Start Date: 06/07/21 Status: Ordered Incontenence Pads, Extra Long Day [...] 1 Refills, Maintenance, 05/14/21 15:23:00 EST, Tablet, [facility]/pharmacy #[id number], Partial fill upon patient request if the prescription is for a schedule II opioid drug., 160, c... Start Date: 05/14/21 Status: Ordered omeprazole 20 mg oral enteric coated capsule 1 capsule, By Mouth, Daily, # 90 capsule, 1 Refills, [facility] 245[facility], 160, cm, 03/30/21 10:47:00 EST, Height, 104.6, kg, 12/04/20 10:52:00 EDT, Dry Weight Start Date: 03/31/21 Status: Ordered ondansetron 4 mg oral tablet See Instructions, TAKE 1 TABLET BY MOUTH EVERY 8 HOURS NEEDED FOR NAUSEA AND VOMITING, # 15 tablet, 1 Refills, Physician Stop 07/12/21 15:23:00 EDT, 05/14/21 15:22:00 EST, [facility]/pharmacy #[id number], 160,cm, 03/30/21 10:47:00 EST, Height, 104.6, kg, 12/04... Start Date: 05/14/21 Stop Date: 07/12/21 Status: Ordered oxybutynin 5 mg oral tablet 1 tablet, By Mouth, 3 times a day, dose increase, # 270 tablet, 1 Refills, Maintenance, 03/19/21 17:40:00 EST, [facility]/pharmacy #[id number], 160, cm, 12/04/20 10:52:00 EDT, [...] 1 Refills, Maintenance, 06/11/21 14:11:00 EST, Gel, [id number], Partial fill upon patient request if the prescriptionis for a schedule II opioid drug., 1 Gm Topically 4... Start Date: 06/11/21 Status: Ordered Problem List Condition Effective Dates [...]
--- OUTSIDE RECORDS SUMMARY | 2022-12-30 08:12 | XMS_ITS | Continuity of Care Document ---
Author Name Unknown Organization [facility] Address [address] [place] [address]- Care Team Providers Care Rn Forensic Name Role Phone Kaiden Chirinos MD Primary Care Physician [place] [facility] [place]s): 05/10/21 - 06/09/21 [facility] [address] [place], [place] [address] Allergies, Adverse Reactions, Alerts Substance Reaction [...] # 8.5 each, 0 Refills, [facility], 20, INHALE 2 PUFFS BY MOUTH EVERY 4 HOURS NEEDED FOR WHEEZING, 160, cm, 03/30/21 10:47:00 EST, Height, 104.6, kg, 12/04/20 10:52:00 EDT, Dry Weight Start Date: 04/28/21 Status: Ordered amitriptyline 10 mg oral tablet 10 mg, 1, tablet, By Mouth, Daily at bedtime, # 90 tablet, Refills 1, Tot. Refills 1, Maintenance, 12/24/20 16:08:00 EDT, Route to Pharmacy Electronically, [facility]/pharmacy #[id number], Partial fill upon patient request if the prescription is for a schedule II... Start Date: 12/24/20 Status: Ordered baclofen 10 mg oral tablet 10 mg, 1, tablet, By Mouth, 3 times a day, PRN, # 30 tablet, Refills 0, Tot. Refills 0, Maintenance, Spasm, 01/31/19 21:47:23 EDT, Route to Pharmacy Electronically, [id number], [facility]/pharmacy #[id number] Start Date: 01/31/19 Stop Date: 02/14/19 Status: Ordered benzonatate 100 mg oral capsule 2 capsule, By Mouth, 3 times a day, PRN NEEDED FOR COUGH, # 30 capsule, 1 Refills, Physician Stop 03/19/22 17:38:00 EST, 02/19/22 16:55:00 EDT, [facility]/pharmacy #[id number], 160, cm, 12/04/20 10:52:00 EDT, Height, 104.6, kg, 12/04/20 10:52:00 EDT, Dry Weight Start Date: 02/19/22 Stop Date: 03/19/22 Status: Ordered benzonatate 100 mg oral capsule 2 capsule, By Mouth, 3 times a day, PRN NEEDED FOR COUGH, # 30 capsule, 1 Refills, Physician Stop 02/19/22 16:55:00 EDT, 02/19/21 16:54:00 EDT, [facility]/pharmacy #[id number], 160, cm, 12/04/20 10:52:00 EDT, Height, 104.6, kg, 12/04/20 10:52:00 EDT, Dry Weight Start Date: 02/19/21 Stop Date: 02/19/22 Status: Ordered clonazePAM 0.5 mg oral tablet 1 tablet = 0.5 mg, By Mouth, 4 times a day, PRN Anxiety, Patient on controlled substance contract. Please do NOT fill until 09/23/2020, # 112 tablet, 0 Refills, Maintenance, 11/18/20 21:02:00 EDT, Tablet, [facility]/pharmacy #[id number], Partial fill upon patient... Start Date: 11/18/20 Status: Ordered Dilaudid 2 mg oral tablet 0.5 tablet = 1 mg, By Mouth, Every 6 hours, PRN Pain , Severe, # 28 tablet, 0 Refills, Acute 08/18/21 10:23:00 EDT, 07/12/21 15:21:00 EDT, Tablet, [id number], Partial fill upon patient request if the prescription is for a schedule II opioid Start Date: 07/12/21 Stop Date: 08/18/21 Status: Ordered Dilaudid 2 mg oral tablet 0.5 tablet = 1 mg, By Mouth, Every 6 hours, PRN Pain , Severe, # 14 tablet, 0 Refills, Acute 07/02/21 16:51:00 EDT, 06/04/21 16:50:00 EST, Tablet, [id number], Partial fill upon patient request if the prescription is for a schedule II opioid Start Date: 06/04/21 Stop Date: 07/02/21 Status: Ordered Famotidine 0 Refills, Maintenance, 04/07/19 16:11:00 EST Start Date: 04/07/19 Status: Ordered gabapentin 800 mg oral tablet 1 tablet, By Mouth, 4 times a day, # 360 tablet, 1 Refills, [facility], 160, cm, 03/30/21 10:47:00 EST, Height, 104.6, [...] 1 Refills, Maintenance, 05/14/21 15:23:00 EST, Tablet, [facility]/pharmacy #[id number], Partial fill upon patient request if the prescription is for a schedule II opioid drug., 160, c... Start Date: 05/14/21 Status: Ordered omeprazole 20 mg oral enteric coated capsule 1 capsule, By Mouth, Daily, # 90 capsule, 1 Refills, [facility], 160, cm, 03/30/21 10:47:00 EST, Height, 104.6, kg, 12/04/20 10:52:00 EDT, Dry Weight Start Date: 03/31/21 Status: Ordered ondansetron 4 mg oral tablet See Instructions, TAKE 1 TABLET BY MOUTH EVERY 8 HOURS NEEDED FOR NAUSEA AND VOMITING, # 15 tablet, 1 Refills, Physician Stop 07/12/21 15:23:00 EDT, 05/14/21 15:22:00 EST, [facility]/pharmacy #[id number], 160,cm, 03/30/21 10:47:00 EST, Height, 104.6, [...] 09/07/20 Status: Ordered Voltaren 1% topical gel 1 application, Topically, 4 times a day, PRN for pain, take with food, # 100 Gm, 1 Refills, Maintenance, 06/07/21 11:39:00 EST, Gel, [id number], Partial fill upon patient request if the prescription is for a schedule II opioid drug., 1 applica... Start Date: 06/07/21 Status: Ordered Problem List [...]
--- OUTSIDE RECORDS SUMMARY | 2022-12-30 08:12 | XMS_ITS | Continuity of Care Document ---
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 Start Date: 09/28/21 Status: Ordered albuterol 0.083% inhalation solution 3 mL = 2.5 mg, Inhalation, Every 4 hours, PRN for wheezing/cough/shortness of breath, # 25 each, 0 Refills, Maintenance, 10/14/21 22:10:00 EDT, Solution, [facility] #[id number], Partial fill upon patient request if the prescription is for a sched... Start Date: 10/14/21 Status: Ordered benzonatate 100 mg oral capsule 2 capsule, By Mouth, 3 times a day, PRN NEEDED FOR COUGH, # 30 capsule, 1 Refills, Physician Stop 03/19/22 17:38:00 EST, 02/19/22 16:55:00 EDT, [facility]/pharmacy #[id number], 160, cm, 12/04/20 10:52:00 EDT, Height, 104.6, kg, 12/04/20 10:52:00 EDT, Dry Weight Start Date: 02/19/22 Stop Date: 03/19/22 Status: Ordered benzonatate 100 mg oral capsule 2 capsule, By Mouth, 3 times a day, PRN NEEDED FOR COUGH, # 30 capsule, 1 Refills, Maintenance, 09/29/21 15:56:00 EDT, [facility] #[id number], 153, cm, 08/10/21 11:19:00 EDT, Height, 105, kg,05/31/21 15:15:00 EST, Dry Weight Start Date: 09/29/21 Status: Ordered budesonide 1 mg/2 mL inhalation suspension 2 mL = 1 mg, Neb, 2 times a day, rinse mouth out after use, # 120 mL, 1 Refills, Maintenance, 10/25/21 18:30:00 EDT, Suspension, [facility] #[id number], Partial fill upon patient request if the [...] Refills, Maintenance, 11/18/20 21:02:00 EDT, Tablet, [facility]/pharmacy #[id number], Partial fill upon patient... Start Date: 11/18/20 Status: Ordered diclofenac 1% topical gel = 1 Gm, Topically, 4 times a day, FOR PAIN., # 100 Gm, 1 Refills, [id number], 30, APPLY 1 GM TOPICALLY 4 TIMES A DAY FOR PAIN, 153, cm, 06/07/21 11:07:00 EST, Height, 105, kg, 05/31/21 15:15:00 EST, Dry Weight Start Date: 08/05/21 Status: Ordered Dilaudid 2 mg oral tablet 1 tablet = 2 mg, By Mouth, 2 times a day, PRN Pain , Severe, checked masspat, # 28 tablet, 0 Refills, Maintenance, 10/25/21 21:55:00 EDT, Tablet, [facility] #[id number], Partial fill upon patient request if the prescription is for a schedule II o... Start Date: 10/25/21 Status: Ordered Famotidine 0 Refills, Maintenance, 04/07/19 16:11:00 EST Start Date: 04/07/19 Status: Ordered fluconazole 150 mg oral tablet 1 tablet = 150 mg, By Mouth, Once, # 1 tablet, 0 Refills, Soft Stop, 09/21/21 11:15:00 EDT, Tablet,[facility] #[id number], Partial fill upon patient request if the prescription is for a schedule II opioid drug., 153, cm, 08/10/21 11:19:00 EDT, H... Start Date: 09/21/21 Status: Ordered gabapentin 800 mg oral tablet See Instructions, TAKE 1 TABLET BY MOUTH FOUR TIMES DAILY, # 360 tablet, 0 Refills, [facility] #[id number], 153, cm, 10/08/21 13:23:00 EDT, Height, 113.9, kg, 10/08/21 13:23:00 EDT, Dry Weight Start Date: 10/21/21 Status: Ordered Hinged knee brace bilateral knees Hinged knee brace bilateral knees, See Instructions, # 2 each, Refills 0, Tot. Refills 0, Maintenance, To be worn while ambulating daily., 08/20/21 11:23:00 EDT, Supply Start Date: 12/04/20 Status: Ordered hydrOXYzine pamoate 50 mg oral capsule 1 capsule, By Mouth, 3 times a day, PRN NEEDED FOR ITCHING, # 90 capsule, 1 Refills, Maintenance, 09/28/21 16:58:00 EDT, [facility] #[id number], 153, cm, 08/10/21 11:19:00 EDT, Height, 105, [...] 1 Refills, Maintenance, 07/30/21 12:25:00 EDT, Tablet, [facility] #[id number], Partial fill upon patient request if the prescription is for a schedule II opioid drug... Start Date: 07/30/21 Status: Ordered levothyroxine 0.1 mg oral tablet 1 tablet = 100 mcg, By Mouth, Daily, dose increase, # 90 tablet, 0 Refills, Maintenance, 11/01/21 16:08:00 EDT, [facility] #[id number], Please discontinue 88ug, 153, cm, 10/08/21 13:23:00 EDT, Height, 113.9, kg, 10/08/21 13:23:00 EDT, Dry Weight Start Date: 11/01/21 Status: Ordered lidocaine 2% topical gel with applicator 5 mL = 0.1 Gm, Topically, 2 times a day, PRN Pain , Moderate, # 60 mL, 2 Refills, Soft Stop, 09/24/21 16:43:00 EDT, Gel, [facility] #[id number], Partial fill upon patient request if the prescription is for a schedule II opioid drug., 153, cm, ... Start Date: 09/24/21 Status: Ordered Nebulizer/Compressor See Instructions, # 1 [...] 90 capsule, 0 Refills, 09/27/21 14:31:00 EDT, [facility] #[id number], 153, cm, 08/10/21 11:19:00 EDT, Height, 105, kg, 05/31/21 15:15:00 EST, Dry Weight Start Date: 09/27/21 Status: Ordered ondansetron 4 mg oral tablet 1 tablet = 4 mg, By Mouth, Every 8 hours, PRN Nausea & Vomiting, # 30 tablet, 1 Refills, Maintenance, 09/28/21 16:56:00 EDT, [facility] #[id number], 153, cm, 08/10/21 11:19:00 EDT, Height, 105, kg, 05/31/21 15:15:00 EST, Dry Weight Start Date: 09/28/21 Status: Ordered oxybutynin 5 mg oral tablet 1 tablet, By Mouth, 3 times a day, # 270 tablet, 1 Refills, [id number], 153, cm, 08/10/21 11:19:00 EDT, Height, 105, kg, 05/31/21 15:15:00 EST, Dry Weight Start Date: 09/09/21 Status: Ordered Right ankle stirrup air cast Right ankle stirrup air cast, See Instructions, # 1 each, Refills 0, Tot. Refills 0, Maintenance, To be worn on ambulation, 06/07/21 11:32:00 EST, Supply Start Date: 06/07/21 Status: Ordered Vitamin D3 50,000 intl units oral capsule TAKE 1 CAPSULE BY MOUTH ONCE A WEEK Start Date: 09/07/20 Status: Ordered ZyrTEC 10 mg oral tablet 1 tablet = 10 mg, By Mouth, Daily, # 90 tablet, 1 Refills, Maintenance, 07/30/21 12:22:00 EDT, Tablet, [facility] #[id number], Partial fill upon patient request if the [...]
--- OUTSIDE RECORDS SUMMARY | 2022-12-30 08:12 | XMS_ITS | Continuity of Care Document ---
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 Start Date: 09/28/21 Status: Ordered albuterol 0.083% inhalation solution 3 mL = 2.5 mg, Inhalation, Every 4 hours, PRN for wheezing/cough/shortness of breath, # 25 each, 0 Refills, Maintenance, 10/14/21 22:10:00 EDT, Solution, [facility] #[id number], Partial fill upon patient request if the prescription is for a sched... Start Date: 10/14/21 Status: Ordered benzonatate 100 mg oral capsule 2 capsule, By Mouth, 3 times a day, PRN NEEDED FOR COUGH, # 30 capsule, 1 Refills, Physician Stop 03/19/22 17:38:00 EST, 02/19/22 16:55:00 EDT, [facility]/pharmacy #[id number], 160, cm, 12/04/20 10:52:00 EDT, Height, 104.6, kg, 12/04/20 10:52:00 EDT, Dry Weight Start Date: 02/19/22 Stop Date: 03/19/22 Status: Ordered benzonatate 100 mg oral capsule 2 capsule, By Mouth, 3 times a day, PRN NEEDED FOR COUGH, # 30 capsule, 1 Refills, Maintenance, 09/29/21 15:56:00 EDT, [facility] #[id number], 153, cm, 08/10/21 11:19:00 EDT, Height, 105, kg,05/31/21 15:15:00 EST, Dry Weight Start Date: 09/29/21 Status: Ordered budesonide 1 mg/2 mL inhalation suspension 2 mL = 1 mg, Neb, 2 times a day, rinse mouth out after use, # 120 mL, 1 Refills, Maintenance, 10/25/21 18:30:00 EDT, Suspension, [facility] #[id number], Partial fill upon patient request if the [...] 0 Refills, Maintenance, 11/18/20 21:02:00 EDT, Tablet, [facility]/pharmacy #[id number], Partial fill upon patient... Start Date: 11/18/20 Status: Ordered diclofenac 1% topical gel = 1 Gm, Topically, 4 times a day, FOR PAIN., # 100 Gm, 1 Refills, [id number], 30, APPLY 1 GM TOPICALLY 4 TIMES A DAY FOR PAIN, 153, cm, 06/07/21 11:07:00 EST, Height, 105, kg, 05/31/21 15:15:00 EST, Dry Weight Start Date: 08/05/21 Status: Ordered Dilaudid 2 mg oral tablet 1 tablet = 2 mg, By Mouth, 2 times a day, PRN Pain , Severe, checked masspat, # 28 tablet, 0 Refills, Maintenance, 10/25/21 21:55:00 EDT, Tablet, [facility] #[id number], Partial fill upon patient request if the prescription is for a schedule II o... Start Date: 10/25/21 Status: Ordered Famotidine 0 Refills, Maintenance, 04/07/19 16:11:00 EST Start Date: 04/07/19 Status: Ordered fluconazole 150 mg oral tablet 1 tablet = 150 mg, By Mouth, Once, # 1 tablet, 0 Refills, Soft Stop, 09/21/21 11:15:00 EDT, Tablet,[facility] #[id number], Partial fill upon patient request if the prescription is for a schedule II opioid drug., 153, cm, 08/10/21 11:19:00 EDT, H... Start Date: 09/21/21 Status: Ordered gabapentin 800 mg oral tablet See Instructions, TAKE 1 TABLET BY MOUTH FOUR TIMES DAILY, # 360 tablet, 0 Refills, [facility] #[id number], 153, cm, 10/08/21 13:23:00 EDT, Height, 113.9, [...] capsule, 1 Refills, Maintenance, 09/28/21 16:58:00 EDT, [facility] #[id number], 153, cm, 08/10/21 11:19:00 EDT, Height, 105, [...] 1 Refills, Maintenance, 07/30/21 12:25:00 EDT, Tablet, [facility] #[id number], Partial fill upon patient request if the prescription is for a schedule II opioid drug... Start Date: 07/30/21 Status: Ordered lidocaine 2% topical gel with applicator 5 mL = 0.1 Gm, Topically, 2 times a day, PRN Pain , Moderate, # 60 mL, 2 Refills, Soft Stop, 09/24/21 16:43:00 EDT, Gel, [facility] #[id number], Partial fill upon patient request if the prescription is for a schedule II opioid drug., 153, cm, 04... Start Date: 09/24/21 Status: Ordered Nebulizer/Compressor See Instructions, # 1 each, Refills 0, Tot. Refills 0, Maintenance, Use to administer albuterol q 4hours prn cough/wheezing Dx: Covid 19, 10/15/21 13:43:00 EDT, Supply, 153, cm, 10/08/21 13:23:00 EDT, Height, 113.9, kg, 10/08/21 13:23:00 EDT, Dry We... Start Date: 10/15/21 Status: Ordered nitrofurantoin macrocrystals 100 mg oral capsule 1 capsule = 100 mg, By Mouth, 2 times a day, for 5 days, with food, # 10 capsule, 0 Refills, Acute 10/30/21 18:35:00 EDT, 10/25/21 18:35:00 EDT, Capsule, [facility] #[id number], Partial fill upon patient request if the prescription is for a sched... Start Date: 10/25/21 Stop Date: 10/30/21 Status: Ordered omeprazole 20 mg oral enteric coated capsule 1 capsule, By Mouth, Daily, # 90 capsule, 0 Refills, 09/27/21 14:31:00 EDT, [facility] #[id number], 153, cm, 08/10/21 11:19:00 EDT, Height, 105, kg, 05/31/21 15:15:00 EST, Dry Weight Start Date: 09/27/21 Status: Ordered ondansetron 4 mg oral tablet 1 tablet = 4 mg, By Mouth, Every 8 hours, PRN Nausea & Vomiting, # 30 tablet, 1 Refills, Maintenance, 09/28/21 16:56:00 EDT, [facility] #[id number], 153, cm, 08/10/21 11:19:00 EDT, Height, 105, kg, 05/31/21 15:15:00 EST, Dry Weight Start Date: 09/28/21 Status: Ordered oxybutynin 5 mg oral tablet 1 tablet, By Mouth, 3 times a day, # 270 tablet, 1 Refills, [facility], 153, cm, 08/10/21 11:19:00 EDT, Height, 105, [...] 1 Refills, Maintenance, 07/30/21 12:22:00 EDT, Tablet, [facility] #[id number], Partial fill upon patient request if the [...]
--- OUTSIDE RECORDS SUMMARY | 2022-12-30 08:12 | XMS_ITS | Continuity of Care Document ---
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 Start Date: 12/22/21 Status: Ordered albuterol 0.083% inhalation solution 3 mL = 2.5 mg, Inhalation, Every 4 hours, PRN for wheezing/cough/shortness of breath, # 25 each, 0 Refills, Maintenance, 06/29/22 13:08:00 EDT, Solution, [facility] #[id number], Partial fill upon patient request if the prescription is for a sched... Start Date: 06/29/22 Status: Ordered [place] Saline Mist 0.65% nasal spray 2 sprays, Nares, Both, 4 times a day, # 1 each, 0 Refills, Maintenance, 02/04/22 13:32:00 EDT, [facility] #[id number], Partial fill upon patient request if the [...] tablet, 0 Refills, Maintenance, 12/27/21 13:43:00 EDT, [facility] #[id number], 153, cm, 10/08/21 13:23:00 EDT, Height, 113.9, kg, 10/08/21 13:23:00EDT, Dry Weight Start Date: 12/27/21 Status: Ordered chlorhexidine 2% topical liquid See Instructions, 1 application to bilateral forearms twice weekly, # 120 mL, 3 Refills, Soft Stop,06/17/22 11:06:00 EST, Liquid, [facility] #[id number], Partial fill upon patient request if the prescription is for a schedule II opioid drug., 1... Start Date: 06/17/22 Status: Ordered chlorhexidine 4% topical soap See Instructions, apply topically twice weekly to skin on forearms, # 120 mL, 2 Refills, Soft Stop,06/17/22 16:03:00 EST, [facility] #[id number], Partial fill upon patient request if the prescription is for a schedule II opioid drug., apply topi... Start Date: 06/17/22 Status: Ordered clonazePAM 0.5 mg oral tablet 1 tablet = 0.5 mg, By Mouth, 4 times a day, PRN Anxiety, Patient on controlled substance contract. Please do NOT fill until 09/23/2020, # 112 tablet, 0 Refills, Maintenance, 11/18/20 21:02:00 EDT, Tablet, [facility]/pharmacy #[id number], Partial fill upon patient... Start Date: 11/18/20 Status: Ordered diclofenac 1% topical gel = 1 Gm, Topically, 4 times a day, FOR PAIN., # 100 Gm, 1 Refills, [facility], 30, APPLY 1 GM TOPICALLY 4 TIMES A DAY FOR PAIN, 153, cm, 06/07/21 11:07:00 EST, Height, 105, kg, 05/31/21 15:15:00 EST, Dry Weight Start Date: 08/05/21 Status: Ordered Dilaudid 2 mg oral tablet 1 tablet = 2 mg, By Mouth, 2 times a day, PRN Pain , Severe, checked masspat, # 56 tablet, 0 Refills, Maintenance, 06/27/22 21:04:00 EDT, Tablet, [facility] #[id number], Partial fill upon patient request if the prescription is for a schedule II o... Start Date: 06/27/22 Status: Ordered Estrace Vaginal Cream 0.1 mg/g = 2 Gm, Vaginally, Daily at bedtime, 2g PV daily at bedtime x 2 weeks, then 1g PV 1-3x per week, # 42.5 Gm, 5 Refills, Maintenance, 11/09/21 11:17:00 EDT, [facility] #[id number], Partial fill upon patient request if the prescription is for a sche... Start Date: 11/09/21 Status: Ordered Estradiol Patch 0.0375 mg/24 hours twice weekly transdermal film, extended release See Instructions, APPLY 1 PATCH TOPICALLY TWICE WEEKLY DIRECTED, # 8 patch, 6 Refills, Maintenance, 03/23/22 16:10:00 EST, [facility] #[id number], 28, APPLY 1 PATCH TOPICALLY TWICE WEEKLY DIRECTED, 153, cm, 01/04/22 13:15:00 EDT, Height, 11... Start Date: 03/23/22 Status: Ordered fluconazole 150 mg oral tablet 1 tablet = 150 mg, By Mouth, Once, PRN vaginal yeast infection, # 1 tablet, 0 Refills, Soft Stop, 03/15/22 10:42:00 EST, Tablet, [facility] #[id number], Partial fill upon patient request if the prescription is for a schedule II opioid drug., 153,... Start Date: 03/15/22 Status: Ordered fluticasone 50 mcg/inh nasal spray See Instructions, SHAKE LIQUID AND USE 1 SPRAY IN EACH NOSTRIL TWICE DAILY, # 16 Gm, 1 Refills, Maintenance, 05/18/22 13:57:00 EST, [facility] #[id number], 30, SHAKE LIQUID AND USE 1 SPRAY IN EACH NOSTRIL TWICE DAILY, 153, cm, 04/25/22 16:23:00 E... Start Date: 05/18/22 Status: Ordered gabapentin 800 mg oral tablet 1 tablet, By Mouth, 4 times a day, # 360 tablet, 1 Refills, Maintenance, 04/19/22 12:59:00 EST, [facility] #[id number], 153, cm, 01/04/22 13:15:00 EDT, Height, 113.9, [...] capsule, 1 Refills, Maintenance, 05/20/22 12:57:00 EST, [facility] #[id number], 153, cm, 04/25/22 16:23:00 EST, Height, 109, [...] 1 Refills, Maintenance, 04/28/22 13:51:00 EST, Tablet, [facility] #[id number], Partial fill upon patient request if the prescription is for a schedule II opioid drug., 153, cm... Start Date: 04/28/22 Status: Ordered lidocaine 4% topical cream 1 application, Topically, 3 times a day, PRN Pain , Mild, # 30 Gm, 1 Refills, Maintenance, 06/24/2315:24:00 EST, Cream, [facility] #[id number], Partial fill upon patient request if the prescription is for a schedule II opioid drug., 1 applicatio... Start Date: 06/23/22 Status: Ordered meloxicam 15 mg oral tablet 1/2 TO 1 TABLET, By Mouth, Daily, PRN NEEDED FOR MODERATE PAIN, # 30 tablet, 5 Refills, Maintenance, 01/10/22 20:40:00 EDT, [facility] #[id number], 153, cm, 01/04/22 13:15:00 EDT, Height, 113.9, [...] capsule, 1 Refills, Maintenance, 04/19/22 12:41:00 EST, [facility] #[id number], 153, cm, 01/04/22 13:15:00 EDT, Height, 113.9, kg, 10/08/21 13:23:00 EDT, Dry Weight Start Date: 04/19/22 Status: Ordered ondansetron 4 mg oral tablet 1 tablet, By Mouth, Every 8 hours, PRN NEEDED FOR NAUSEA OR VOMITING, # 30 tablet, 1 Refills, Maintenance, 06/14/22 10:29:00 EST, [facility] #[id number], 153, cm, 06/08/22 9:37:00 EST, Height, 109, kg, 04/25/22 15:54:00 EST, Dry Weight Start Date: 06/14/22 Status: Ordered oxybutynin 5 mg oral tablet 1 tablet, By Mouth, 3 times a day, # 270 tablet, 1 Refills, 01/10/22 10:29:00 EDT, [facility] #[id number], 153, cm, 01/04/22 13:15:00 EDT, Height, 113.9, [...] 60 tablet, Refills 2, Tot.Refills 2, Maintenance, 06/08/22 15:01:00 EST, Route to Pharmacy Electronically, [facility] #[id number], Partial fill upon patient request if the... Start Date: 06/08/22 Status: Ordered triamcinolone 0.1% topical cream 1 application, Topically, 3 times a day, PRN arm rash, # 30 Gm, 1 Refills, Acute 06/08/23 9:53:00 EST, 06/08/22 9:53:00 EST, Cream, [facility] #[id number], Partial fill upon patient request if the [...] Team Personnel Name: Kaiden Chirinos MD Position: [facility] Primary Care Physician Member Role: PCP Address: Address: [address] [place] [address] [facility] [place] [address]- Care Team Related Persons Name: RODOLFO SHEIKH Address: home [address] [facility] [address] [facility] [address] [place] [id number] Name: CHIARA TEE Address: home [address] [place] [address] [address] [place] [address]
--- OUTSIDE RECORDS SUMMARY | 2022-12-30 08:12 | XMS_ITS | Continuity of Care Document ---
Author Name Unknown Organization [facility] Address [address] [place] [address]- Care Team Providers Care Event Staff Member Name Role Phone Kaiden Chirinos MD Primary Care Physician [phone] Encounter [facility] [place] [facility] Date(s): 09/23/20 - 10/23/20 [facility] [address] [place], [place] [address] Allergies, Adverse Reactions, Alerts Substance Reaction Severity Status morphine Active Adhesive Bandage Active Percocet 7.5/325 Active Medications amitriptyline 10 mg oral tablet 10 mg, 1, tablet, By Mouth, Daily at bedtime, # 90 tablet, Refills 1, Tot. Refills 1, Maintenance, 09/07/20 11:05:00 EDT, Route to Pharmacy Electronically, [facility]/pharmacy #[id number], Partial fill upon patient request if the prescription is for a schedule II... Start Date: 09/07/20 Status: Ordered amitriptyline 10 mg oral tablet 10 mg, 1, tablet, By Mouth, Daily at bedtime, # 90 tablet, Refills 1, Tot. Refills 1, Maintenance, 09/22/20 16:39:00 EDT, Route to Pharmacy Electronically, [facility]/pharmacy #[id number], Partial fill upon patient request if the prescription is for a schedule II... Start Date: 09/22/20 Status: Ordered baclofen 10 mg oral tablet 10 mg, 1, tablet, By Mouth, 3 times a day, PRN, # 30 tablet, Refills 0, Tot. Refills 0, Maintenance, Spasm, 01/31/19 21:47:23 EDT, Route to Pharmacy Electronically, [id number], [facility]/pharmacy #[id number] Start Date: 01/31/19 Stop Date: 02/14/19 Status: Ordered clonazePAM 0.5 mg oral tablet 1 tablet = 0.5 mg, By Mouth, 4 times a day, PRN Anxiety, Patient on controlled substance contract. Please do NOT fill until 09/23/2020, # 112 tablet, 1 Refills, Maintenance, 09/22/20 16:54:00 EDT, Tablet, [facility]/pharmacy #[id number], Partial fill upon patient... Start Date: 09/22/20 Status: Ordered Famotidine 0 Refills, Maintenance, 04/07/19 16:11:00 EST Start Date: 04/07/19 Status: Ordered gabapentin 800 mg oral tablet 1 tablet = 800 mg, By Mouth, 4 times a day, 0 Refills, Maintenance, 04/07/19 16:11:00 EST Start Date: 04/07/19 Status: Ordered HydrOXYzine = 100 mg, By Mouth, 3 times a day, 0 Refills, Maintenance, 04/07/19 16:12:00 EST Start Date: 04/07/19 Status: Ordered levothyroxine 75 mcg (0.075 mg) oral tablet 1 tablet = 75 mcg, By Mouth, Daily, # 30 tablet, 0 Refills, Maintenance, 05/25/16 16:44:53, Tablet Start Date: 05/25/16 Status: Ordered omeprazole 20 mg oral enteric coated capsule 1 capsule = 20 mg, By Mouth, Daily, # 90 capsule, 0 Refills, Maintenance, 10/21/20 16:27:00 EDT, ECCapsule, [facility]/pharmacy #[id number], Partial fill upon patient request if the prescription is for a schedule II opioid drug., 160, cm, 09/07/20 13:05:00 EDT, H... Start Date: 10/21/20 Status: Ordered ProAir HFA 90 mcg/inh inhalation aerosol 2 puffs, Inhalation, Every 4 hours, PRN as needed for wheezing, # 8.5 Gm, 0 Refills, Maintenance, 09/01/20 20:10:00 EDT, Aerosol, [facility]/pharmacy #[id number], Partial fill upon patient request if the prescription is for a schedule II opioid drug., 2 puffs Inha... Start Date: 09/01/20 Status: Ordered sertraline 100 mg oral tablet 1 tablet = 100 mg, By Mouth, Daily, to be taken with 50mg tab for total 150mg daily, # 90 tablet, 1Refills, Maintenance, 09/07/20 11:04:00 EDT, Tablet, Partial fill upon patient request if the prescription is for a schedule II opioid drug. Start Date: 09/07/20 Status: Ordered sertraline 50 mg oral tablet 1 tablet = 50 mg, By Mouth, Daily in AM, to be taken with sertraline 100mg tab in morning for [id number] per day, # 90 tablet, 1 Refills, Maintenance, 09/07/20 11:02:00 EDT, Tablet, [facility]/pharmacy #[id number], Partial fill upon patient request if the prescri... Start Date: 09/07/20 Status: Ordered traZODone 100 mg oral tablet 100 mg, 1, tablet, Refills 0, Maintenance, 09/07/20 10:30:00 EDT, Partial fill upon patient requestif the prescription is for a schedule II opioid drug. Start Date: 09/07/20 Status: Ordered Vitamin D3 50,000 intl units [...]
--- OUTSIDE RECORDS SUMMARY | 2022-12-30 08:12 | XMS_ITS | Continuity of Care Document ---
Author Name Unknown Organization 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 [address] [place], [place] [address] Encounter Diagnosis Oropharyngeal dysphagia(Discharge Diagnosis) - 04/25/22 Recurrent infections(Discharge Diagnosis) - 04/25/22 Axillary abscess(Discharge Diagnosis) - 04/25/22 Skin rash(Discharge Diagnosis) - 04/25/22 Attending Physician: Kaiden Chirinos MD Allergies, Adverse [...] 8.5 Gm,0 Refills, Maintenance, 12/22/21 10:40:00 EDT, [facility] #[id number], 2 puffs Inhalation Every 4 hours,PRN: NEEDED FOR WHEEZING/cough/shortness... Start Date: 12/22/21 Status: Ordered albuterol 0.083% inhalation solution 3 mL = 2.5 mg, Inhalation, Every 4 hours, PRN for wheezing/cough/shortness of breath, # 25 each, 0 Refills, Maintenance, 10/14/21 22:10:00 EDT, Solution, [facility] #[id number], Partial fill upon patient request if the prescription is for a sched... Start Date: 10/14/21 Status: Ordered [place] Saline Mist 0.65% nasal spray 2 sprays, Nares, Both, 4 times a day, # 1 each, 0 Refills, Maintenance, 02/04/22 13:32:00 EDT, [facility] #[id number], Partial fill upon patient request if the [...] opioid drug. Start Date: 09/27/21 Status: Ordered cephalexin monohydrate 500 mg oral tablet 1 tablet = 500 mg, By Mouth, 4 times a day, for 7 days, take with food, # 28 tablet, 0 Refills, Acute 05/06/22 12:14:00 EST, 04/29/22 12:14:00 EST, Tablet, [facility] #[id number], Partial fill upon patient request if the prescription is for a jasmin... Start Date: 04/29/22 Stop Date: 05/06/22 Status: Ordered cetirizine 10 mg oral tablet 1 tablet, By Mouth, Daily, PRN allergies, # 90 tablet, 0 Refills, Maintenance, 12/27/21 13:43:00 EDT, [facility] #[id number], 153, cm, 10/08/21 13:23:00 EDT, Height, 113.9, kg, 10/08/21 13:23:00EDT, Dry Weight Start Date: 12/27/21 Status: Ordered clonazePAM 0.5 mg oral tablet 1 tablet = 0.5 mg, By Mouth, 4 times a day, PRN Anxiety, Patient on controlled substance contract. Please do NOT fill until 09/23/2020, # 112 tablet, 0 Refills, Maintenance, 11/18/20 21:02:00 EDT, Tablet, [facility]/pharmacy #[id number], Partial fill upon patient... Start Date: 11/18/20 Status: Ordered diclofenac 1% topical gel = 1 Gm, Topically, 4 times a day, FOR PAIN., # 100 Gm, 1 Refills, [facility] [id number], 30, APPLY 1 GM TOPICALLY 4 TIMES A DAY FOR PAIN, 153, cm, 06/07/21 11:07:00 EST, Height, 105, kg, 05/31/21 15:15:00 EST, Dry Weight Start Date: 08/05/21 Status: Ordered Dilaudid 2 mg oral tablet 1 tablet = 2 mg, By Mouth, 2 times a day, PRN Pain , Severe, checked masspat, # 56 tablet, 0 Refills, Maintenance, 04/07/22 21:32:00 EST, Tablet, [facility] #[id number], Partial fill upon patient request if the prescription is for a schedule II o... Start Date: 04/07/22 Status: Ordered doxycycline monohydrate 100 mg oral capsule 1 capsule = 100 mg, By Mouth, 2 times a day, for 10 days, take with food, # 20 capsule, 0 Refills, Acute 05/05/22 16:17:00 EST, 04/25/22 16:17:00 EST, Capsule, [facility] #[id number], Partial fill upon patient request if the prescription is for a... Start Date: 04/25/22 Stop Date: 05/05/22 Status: Ordered Estrace Vaginal Cream 0.1 mg/g = 2 Gm, Vaginally, Daily at bedtime, 2g PV daily at bedtime x 2 weeks, then 1g PV 1-3x per week, # 42.5 Gm, 5 Refills, Maintenance, 11/09/21 11:17:00 EDT, [facility] #[id number], Partial fill upon patient request if the prescription is for a sche... Start Date: 11/09/21 Status: Ordered Estradiol Patch 0.0375 mg/24 hours twice weekly transdermal film, extended release See Instructions, APPLY 1 PATCH TOPICALLY TWICE WEEKLY DIRECTED, # 8 patch, 6 Refills, Maintenance, 03/23/22 16:10:00 EST, [facility] #[id number], 28, APPLY 1 PATCH TOPICALLY TWICE WEEKLY DIRECTED, 153, cm, 01/04/22 13:15:00 EDT, Height, 11... Start Date: 03/23/22 Status: Ordered Flonase 50 mcg/inh nasal spray 1 sprays, Nares, Both, 2 times a day, # 16 Gm, 0 Refills, Maintenance, 04/19/22 14:04:00 EST, [place], [facility] #[id number], Partial fill upon patient request if the prescription is for a schedule II opioid drug., 1 sprays Nares, Both 2 times a d... Start Date: 04/19/22 Status: Ordered fluconazole 150 mg oral tablet 1 tablet = 150 mg, By Mouth, Once, PRN vaginal yeast infection, # 1 tablet, 0 Refills, Soft Stop, 03/15/22 10:42:00 EST, Tablet, [facility] #[id number], Partial fill upon patient request if the prescription is for a schedule II opioid drug., 153,... Start Date: 03/15/22 Status: Ordered gabapentin 800 mg oral tablet 1 tablet, By Mouth, 4 times a day, # 360 tablet, 1 Refills, Maintenance, 04/19/22 12:59:00 EST, [facility] #[id number], 153, cm, 01/04/22 13:15:00 EDT, Height, 113.9, [...] capsule, 1 Refills, Maintenance, 12/08/21 10:10:00 EDT, [facility] #[id number], 153, cm, 10/08/21 13:23:00 EDT, Height, 113.9,kg, 10/08/21 13:23:00 EDT, Dry Weight Start Date: 12/08/21 Status: Ordered Incontenence Pads, Extra Long Day Time Incontenence Pads, Extra Long Day Time, See Instructions, # 150 each, Refills 11, Tot. Refills 11, Maintenance, Use for Dx: urinary incontenence R32 Duration of need: x99, 03/16/22 16:47:00 EST, Supply Start Date: 03/16/22 Status: Ordered Incontenence Pads, Night Time Extra [...] 1 Refills, Maintenance, 04/28/22 13:51:00 EST, Tablet, [facility] #[id number], Partial fill upon patient request if the prescription is for a schedule II opioid drug., 153, cm... Start Date: 04/28/22 Status: Ordered lidocaine 4% topical cream 1 application, Topically, 3 times a day, PRN pain of forearms, # 30 Gm, 1 Refills, Acute 06/23/22 16:24:00 EST, 04/25/22 16:23:00 EST, Cream, [facility] #[id number], Partial fill upon patient request if the prescription is for a schedule II opioi... Start Date: 04/25/22 Stop Date: 06/23/22 Status: Ordered meloxicam 15 mg oral tablet 1/2 TO 1 TABLET, By Mouth, Daily, PRN NEEDED FOR MODERATE PAIN, # 30 tablet, 5 Refills, Maintenance, 01/10/22 20:40:00 EDT, [facility] #[id number], 153, cm, 01/04/22 13:15:00 EDT, Height, 113.9, [...] capsule, 1 Refills, Maintenance, 04/19/22 12:41:00 EST, [facility] #[id number], 153, cm, 01/04/22 13:15:00 EDT, Height, 113.9, kg, 10/08/21 13:23:00 EDT, Dry Weight Start Date: 04/19/22 Status: Ordered ondansetron 4 mg oral tablet 1 tablet, By Mouth, Every 8 hours, PRN NEEDED FOR NAUSEA OR VOMITING, # 30 tablet, 1 Refills, Maintenance, 04/14/22 21:15:00 EST, [facility] #[id number], 153, cm, 01/04/22 13:15:00 EDT, Height, 113.9, kg, 10/08/21 13:23:00 EDT, Dry Weight Start Date: 04/14/22 Status: Ordered oxybutynin 5 mg oral tablet 1 tablet, By Mouth, 3 times a day, # 270 tablet, 1 Refills, 01/10/22 10:29:00 EDT, [facility] #[id number], 153, cm, 01/04/22 13:15:00 EDT, Height, 113.9, [...] 60 tablet, Refills 2, Tot.Refills 2, Maintenance, 04/14/22 21:16:00 EST, Route to Pharmacy Electronically, [facility] #[id number], Partial fill upon patient request if the... Start Date: 04/14/22 Status: Ordered Problem List Condition Confirmation Course [...] Confirmed Active Adult night terrors Confirmed Active Diagnosis Diagnosis Type Effective Dates Health Status Clinical Service Informant Oropharyngeal dysphagia Discharge Diagnosis 04/25/22 Recurrent infections Discharge Diagnosis 04/25/22 Axillary abscess Discharge Diagnosis 04/25/22 Skin rash Discharge Diagnosis 04/25/22 Vital Signs Most recent to oldest [Reference Range]: 1 2 3 Height 153 cm (04/25/22 4:23 PM) 153 cm (04/25/22 4:00 PM) 153 cm (04/25/22 3:54 PM) Weight 109 kg (04/25/22 3:54 PM) Oxygen Saturation [94-100 %] 97 % (04/25/22 3:54 PM) Pulse Rate [55-90 bpm] 78 bpm (04/25/22 3:54 PM) Body Mass Index [18.5-24.99 kg/m2] 46.56 kg/m2 *>HHI* (04/25/22 3:54 PM) Blood Pressure [90-138/55-84 mm Hg] 110/80mm Hg (04/25/22 4:23 PM) 151/93mm Hg *H* (04/25/22 4:00 PM) 147/95mm Hg *H* (04/25/22 3:54 PM) Mode of Delivery (Oxygen) Room air (04/25/22 3:54 PM) Blood pressure sites Arm, right (04/25/22 4:00 PM) Arm, right (04/25/22 3:54 PM) Dry Weight 109 kg (04/25/22 3:54 PM) Weight Obtained Via Standing scale (04/25/22 3:54 PM) Social History Social History Type Response Smoking Status Former smoker, quit more than 30 days ago;Never entered on: 11/09/21 Sex Patient Care team information Care Team Personnel Name: Candis CARDENAS, Kaiden Villalta Position: [facility] Primary Care Physician Member Role: PCP Address: Address: [address] [place] [address] Adult [place] [address]- Care Team Related Persons Name: RODOLFO SHEIKH Address: home [address] [facility] [address] [place] [id number] Name: CHIARA TEE Address: home [address] [place] [address] [place] [id number]
--- OUTSIDE RECORDS SUMMARY | 2022-12-30 08:12 | XMS_ITS | Continuity of Care Document ---
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 Start Date: 12/22/21 Status: Ordered albuterol 0.083% inhalation solution 3 mL = 2.5 mg, Inhalation, Every 4 hours, PRN for wheezing/cough/shortness of breath, # 25 each, 0 Refills, Maintenance, 03/15/23 13:08:00 EDT, Solution, [facility] #[id number], Partial fill upon patient request if the prescription is for a sched... Start Date: 06/29/22 Status: Ordered [place] Saline Mist 0.65% nasal spray 2 sprays, Nares, Both, 4 times a day, # 1 each, 0 Refills, Maintenance, 02/04/22 13:32:00 EDT, [facility] #[id number], Partial fill upon patient request if the [...] tablet, 0 Refills, Maintenance, 12/27/21 13:43:00 EDT, [facility] #[id number], 153, cm, 10/08/21 13:23:00 EDT, Height, 113.9, kg, 10/08/21 13:23:00EDT, Dry Weight Start Date: 12/27/21 Status: Ordered chlorhexidine 2% topical liquid See Instructions, 1 application to bilateral forearms twice weekly, # 120 mL, 3 Refills, Soft Stop,06/17/22 11:06:00 EST, Liquid, [facility] #[id number], Partial fill upon patient request if the prescription is for a schedule II opioid drug., 1... Start Date: 06/17/22 Status: Ordered chlorhexidine 4% topical soap See Instructions, apply topically twice weekly to skin on forearms, # 120 mL, 2 Refills, Soft Stop,06/17/22 16:03:00 EST, [facility] #[id number], Partial fill upon patient request if the [...] FOR PAIN., # 100 Gm, 1 Refills, [id number], 30, APPLY 1 GM TOPICALLY 4 TIMES A DAY FOR PAIN, 153, cm, 06/07/21 11:07:00 EST, Height, 105, kg, 05/31/21 15:15:00 EST, Dry Weight Start Date: 08/05/21 Status: Ordered Dilaudid 2 mg oral tablet 1 tablet = 2 mg, By Mouth, 2 times a day, PRN Pain , Severe, ICD 10: M17.0 checked masspat, # 56 tablet, 0 Refills, Maintenance, 12/27/22 23:09:00 EDT, Tablet, [facility] #[id number], Partial fill upon patient request if the prescription is fo... Start Date: 12/27/22 Status: Ordered Estrace Vaginal Cream 0.1 mg/g = 2 Gm, Vaginally, Daily at bedtime, 2g PV daily at bedtime x 2 weeks, then 1g PV 1-3x per week, # 42.5 Gm, 5 Refills, Maintenance, 11/09/21 11:17:00 EDT, [facility] #[id number], Partial fill upon patient request if the prescription is for a sche... Start Date: 11/09/21 Status: Ordered Estradiol Patch 0.0375 mg/24 hours twice weekly transdermal film, extended release See Instructions, APPLY 1 PATCH TOPICALLY TWICE WEEKLY DIRECTED, # 8 patch, 1 Refills, Maintenance, 12/28/22 13:34:00 EDT, [facility] #[id number], 28, APPLY 1 PATCH TOPICALLY TWICE WEEKLY DIRECTED, 154, cm, 10/29/22 14:42:00 EDT, Height, 10... Start Date: 12/28/22 Status: Ordered fluconazole 150 mg oral tablet 1 tablet = 150 mg, By Mouth, Once, PRN vaginal yeast infection, repeat dose in 72 hours if symptomsnot resolved, # 2 tablet, 0 Refills, Soft Stop, 11/08/22 15:31:00 EDT, Tablet, [facility]#[id number], Partial fill upon patient request if the pr... Start Date: 11/08/22 Status: Ordered fluticasone 50 mcg/inh nasal spray See Instructions, SHAKE LIQUID AND USE 1 SPRAY IN EACH NOSTRIL TWICE DAILY, # 16 Gm, 1 Refills, Maintenance, 05/18/22 13:57:00 EST, [facility] #[id number], 30, SHAKE LIQUID AND USE 1 SPRAY IN EACH NOSTRIL TWICE DAILY, 153, cm, 04/25/22 16:23:00 E... Start Date: 05/18/22 Status: Ordered gabapentin 800 mg oral tablet 1 tablet, By Mouth, 4 times a day, # 360 tablet, 1 Refills, Maintenance, 10/25/22 21:47:00 EDT, [facility] #[id number], 153, cm, 06/17/22 10:53:00 EST, Height, 109, kg, 06/17/22 10:53:00 EST, Dry Weight Start Date: 10/25/22 Status: Ordered Hinged knee brace bilateral knees Hinged knee brace bilateral knees, See Instructions, # 2 each, Refills 0, Tot. Refills 0, Maintenance, To be worn while ambulating daily., 12/04/20 11:23:00 EDT, Supply Start Date: 12/04/20 Status: Ordered hydrOXYzine pamoate 50 mg oral capsule 1 capsule, By Mouth, 3 times a day, PRN NEEDED FOR ITCHING, # 90 capsule, 1 Refills, Maintenance, 11/15/22 11:13:00 EDT, [facility] #[id number], 154, cm, 10/29/22 14:42:00 EDT, Height, 109, kg, 10/29/22 12:59:00 EDT, Dry Weight Start Date: 11/15/22 Status: Ordered Incontenence Pads, Extra Long Day [...] 1 Refills, Maintenance, 04/28/22 13:51:00 EST, Tablet, [facility] #[id number], Partial fill upon patient request if the prescription is for a schedule II opioid drug., 153, cm... Start Date: 04/28/22 Status: Ordered lidocaine 4% topical cream 1 application, Topically, 3 times a day, PRN Pain , Mild, # 30 Gm, 1 Refills, Maintenance, 06/24/2315:24:00 EST, Cream, [facility] #[id number], Partial fill upon patient request if the prescription is for a schedule II opioid drug., 1 applicatio... Start Date: 06/23/22 Status: Ordered meloxicam 15 mg oral tablet 1/2 TO 1 TABLET, By Mouth, Daily, PRN NEEDED FOR MODERATE PAIN, # 30 tablet, 5 Refills, Maintenance, 01/10/22 20:40:00 EDT, [facility] #[id number], 153, cm, 01/04/22 13:15:00 EDT, Height, 113.9, kg, 10/08/21 13:23:00 EDT, Dry Weight Start Date: 01/10/22 Status: Ordered Nebulizer/Compressor See Instructions, # 1 each, Refills 0, Tot. Refills 0, Maintenance, Use to administer albuterol q 4hours prn cough/wheezing Dx: Covid 19, 11/09/22 17:48:00 EDT, Supply, 154, cm, 10/29/22 14:42:00 EDT, Height, 109, kg, 10/29/22 12:59:00 EDT, Dry Weight Start Date: 11/09/22 Status: Ordered omeprazole 20 mg oral enteric coated capsule 1 capsule, By Mouth, Daily, # 90 capsule, 1 Refills, Maintenance, 07/26/22 14:24:00 EDT, [facility] #[id number], 153, cm, 06/17/22 10:53:00 EST, Height, 109, kg, 06/17/22 10:53:00 EST, Dry Weight Start Date: 07/26/22 Status: Ordered ondansetron 4 mg oral tablet 1 tablet, By Mouth, Every 8 hours, PRN NEEDED FOR NAUSEA OR VOMITING, # 30 tablet, 1 Refills, Maintenance, 10/27/22 23:08:00 EDT, [facility] #[id number], 153, cm, 06/17/22 10:53:00 EST, Height, 109, kg, 06/17/22 10:53:00 EST, Dry Weight Start Date: 10/27/22 Status: Ordered oxybutynin 5 mg oral tablet 1 tablet, By Mouth, 3 times a day, # 270 tablet, 1 Refills, Maintenance, 10/04/22 20:44:00 EDT, [facility] #[id number], 153, cm, 06/17/22 10:53:00 EST, Height, 109, kg, 06/17/22 10:53:00 EST, Dry Weight Start Date: 10/04/22 Status: Ordered Rapid Antigen home covid swab [...] EST, Supply Start Date: 06/07/21 Status: Ordered tiZANidine 2 mg oral tablet 1-2 tablet, By Mouth, 3 times a day, PRN, # 30 tablet, Refills 1, Tot. Refills 1, Maintenance, pain, muscle spasms, 11/18/22 16:07:00 EDT, Route to Pharmacy Electronically, [facility] #[id number], Partial fill upon patient request if the prescrip... Start Date: 11/18/22 Status: Ordered traZODone 50 mg oral tablet 1-2 tablet, By Mouth, Daily, one hour prior to bedtime. dose increase, # 60 tablet, Refills 2, Tot.Refills 2, Maintenance, 07/01/22 14:21:00 EDT, Route to Pharmacy Electronically, [facility] #[id number], Partial fill upon patient request if the... Start Date: 07/01/22 Status: Ordered triamcinolone 0.1% topical cream 1 application, Topically, 3 times a day, PRN arm rash, # 30 Gm, 1 Refills, Acute 06/08/23 9:53:00 EST, 06/08/22 9:53:00 EST, Cream, [facility] #[id number], Partial fill upon patient request if the [...] Personnel Name: Kaiden Chirinos MD Position: S Physician - Primary Care Member Role: PCP Address: Address: [address] [place] [address]- Care Team Related Persons Name: RODOLFO SHEIKH Address: home [address] [facility] [address] [place] [address] Name: CHIARA TEE Address: home [address] [place] [address] [address] [place] [address]
--- OUTSIDE RECORDS SUMMARY | 2022-12-30 08:12 | XMS_ITS | Continuity of Care Document ---
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 Start Date: 12/22/21 Status: Ordered albuterol 0.083% inhalation solution 3 mL = 2.5 mg, Inhalation, Every 4 hours, PRN for wheezing/cough/shortness of breath, # 25 each, 0 Refills, Maintenance, 06/29/22 13:08:00 EDT, Solution, [facility] #[id number], Partial fill upon patient request if the prescription is for a sched... Start Date: 06/29/22 Status: Ordered [place] Saline Mist 0.65% nasal spray 2 sprays, Nares, Both, 4 times a day, # 1 each, 0 Refills, Maintenance, 02/04/22 13:32:00 EDT, [facility] #[id number], Partial fill upon patient request if the [...] tablet, 0 Refills, Maintenance, 12/27/21 13:43:00 EDT, [facility] #[id number], 153, cm, 10/08/21 13:23:00 EDT, Height, 113.9, kg, 10/08/21 13:23:00EDT, Dry Weight Start Date: 12/27/21 Status: Ordered chlorhexidine 2% topical liquid See Instructions, 1 application to bilateral forearms twice weekly, # 120 mL, 3 Refills, Soft Stop,06/17/22 11:06:00 EST, Liquid, [facility] #[id number], Partial fill upon patient request if the prescription is for a schedule II opioid drug., 1... Start Date: 06/17/22 Status: Ordered chlorhexidine 4% topical soap See Instructions, apply topically twice weekly to skin on forearms, # 120 mL, 2 Refills, Soft Stop,06/17/22 16:03:00 EST, [facility] #[id number], Partial fill upon patient request if the [...] 21:02:00 EDT, Tablet, [facility]/pharmacy #[id number], Partial fill upon patient... Start Date: 11/18/20 Status: Ordered diclofenac 1% topical gel = 1 Gm, Topically, 4 times a day, FOR PAIN., # 100 Gm, 1 Refills, [id number], 30, APPLY 1 GM TOPICALLY 4 TIMES A DAY FOR PAIN, 153, cm, 06/07/21 11:07:00 EST, Height, 105, kg, 05/31/21 15:15:00 EST, Dry Weight Start Date: 08/05/21 Status: Ordered Dilaudid 2 mg oral tablet 1 tablet = 2 mg, By Mouth, 2 times a day, PRN Pain , Severe, checked masspat, # 56 tablet, 0 Refills, Maintenance, 06/27/22 21:04:00 EDT, Tablet, [facility] #[id number], Partial fill upon patient request if the prescription is for a schedule II o... Start Date: 06/27/22 Status: Ordered Estrace Vaginal Cream 0.1 mg/g = 2 Gm, Vaginally, Daily at bedtime, 2g PV daily at bedtime x 2 weeks, then 1g PV 1-3x per week, # 42.5 Gm, 5 Refills, Maintenance, 11/09/21 11:17:00 EDT, [facility] #[id number], Partial fill upon patient request if the prescription is for a sche... Start Date: 11/09/21 Status: Ordered Estradiol Patch 0.0375 mg/24 hours twice weekly transdermal film, extended release See Instructions, APPLY 1 PATCH TOPICALLY TWICE WEEKLY DIRECTED, # 8 patch, 6 Refills, Maintenance, 03/23/22 16:10:00 EST, [facility] #[id number], 28, APPLY 1 PATCH TOPICALLY TWICE WEEKLY DIRECTED, 153, cm, 01/04/22 13:15:00 EDT, Height, 11... Start Date: 03/23/22 Status: Ordered fluconazole 150 mg oral tablet 1 tablet = 150 mg, By Mouth, Once, PRN vaginal yeast infection, # 1 tablet, 0 Refills, Soft Stop, 03/15/22 10:42:00 EST, Tablet, [facility] #[id number], Partial fill upon patient request if the prescription is for a schedule II opioid drug., 153,... Start Date: 03/15/22 Status: Ordered fluticasone 50 mcg/inh nasal spray See Instructions, SHAKE LIQUID AND USE 1 SPRAY IN EACH NOSTRIL TWICE DAILY, # 16 Gm, 1 Refills, Maintenance, 05/18/22 13:57:00 EST, [facility] #[id number], 30, SHAKE LIQUID AND USE 1 SPRAY IN EACH NOSTRIL TWICE DAILY, 153, cm, 04/25/22 16:23:00 E... Start Date: 05/18/22 Status: Ordered gabapentin 800 mg oral tablet 1 tablet, By Mouth, 4 times a day, # 360 tablet, 1 Refills, Maintenance, 04/19/22 12:59:00 EST, [facility] #[id number], 153, cm, 01/04/22 13:15:00 EDT, Height, 113.9, [...] capsule, 1 Refills, Maintenance, 05/20/22 12:57:00 EST, [facility] #[id number], 153, cm, 04/25/22 16:23:00 EST, Height, 109, [...] 1 Refills, Maintenance, 04/28/22 13:51:00 EST, Tablet, [facility] #[id number], Partial fill upon patient request if the prescription is for a schedule II opioid drug., 153, cm... Start Date: 04/28/22 Status: Ordered lidocaine 4% topical cream 1 application, Topically, 3 times a day, PRN Pain , Mild, # 30 Gm, 1 Refills, Maintenance, 06/24/2315:24:00 EST, Cream, [facility] #[id number], Partial fill upon patient request if the prescription is for a schedule II opioid drug., 1 applicatio... Start Date: 06/23/22 Status: Ordered meloxicam 15 mg oral tablet 1/2 TO 1 TABLET, By Mouth, Daily, PRN NEEDED FOR MODERATE PAIN, # 30 tablet, 5 Refills, Maintenance, 01/10/22 20:40:00 EDT, [facility] #[id number], 153, cm, 01/04/22 13:15:00 EDT, Height, 113.9, [...] capsule, 1 Refills, Maintenance, 04/19/22 12:41:00 EST, [facility] #[id number], 153, cm, 01/04/22 13:15:00 EDT, Height, 113.9, kg, 10/08/21 13:23:00 EDT, Dry Weight Start Date: 04/19/22 Status: Ordered ondansetron 4 mg oral tablet 1 tablet, By Mouth, Every 8 hours, PRN NEEDED FOR NAUSEA OR VOMITING, # 30 tablet, 1 Refills, Maintenance, 06/14/22 10:29:00 EST, [facility] #[id number], 153, cm, 06/08/22 9:37:00 EST, Height, 109, kg, 04/25/22 15:54:00 EST, Dry Weight Start Date: 06/14/22 Status: Ordered oxybutynin 5 mg oral tablet 1 tablet, By Mouth, 3 times a day, # 270 tablet, 1 Refills, 01/10/22 10:29:00 EDT, [facility] #[id number], 153, cm, 01/04/22 13:15:00 EDT, Height, 113.9, [...] 06/08/22 15:01:00 EST, Route to Pharmacy Electronically, [facility] #[id number], Partial fill upon patient request if the... Start Date: 06/08/22 Status: Ordered triamcinolone 0.1% topical cream 1 application, Topically, 3 times a day, PRN arm rash, # 30 Gm, 1 Refills, Acute 06/08/23 9:53:00 EST, 06/08/22 9:53:00 EST, Cream, [facility] #[id number], Partial fill upon patient request if the [...] Team Personnel Name: Kaiden Chirinos MD Position: [facility] Primary Care Physician Member Role: PCP Address: Address: [address] [place] [address] Adult & [place] [address]- Care Team Related Persons Name: RODOLFO SHEIKH Address: home [address] [facility] [address] [place] [id number] Name: CHIARA TEE Address: home [address] [place] [address] [address] [place] [id number]
--- OUTSIDE RECORDS SUMMARY | 2022-12-30 08:13 | XMS_ITS | Continuity of Care Document ---
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 Name Role Phone Kaiden Chirinos MD Primary Care Physician [phone] [id number] Date(s): 03/14/22 - 03/21/22 [facility] [address] [place] [address]- Encounter Diagnosis Bilateral primary osteoarthritis of knee(Discharge Diagnosis) - 03/14/22 Insomnia(Discharge Diagnosis) - 03/14/22 Nightmares(Discharge Diagnosis) - 03/14/22 Hypothyroidism(Discharge Diagnosis) - 03/14/22 Attending Physician: Kaiden Chirinos MD Allergies, Adverse [...] 8.5 Gm,0 Refills, Maintenance, 12/22/21 10:40:00 EDT, [facility] #[id number], 2 puffs Inhalation Every 4 hours,PRN: NEEDED FOR WHEEZING/cough/shortness... Start Date: 12/22/21 Status: Ordered albuterol 0.083% inhalation solution 3 mL = 2.5 mg, Inhalation, Every 4 hours, PRN for wheezing/cough/shortness of breath, # 25 each, 0 Refills, Maintenance, 10/14/21 22:10:00 EDT, Solution, [facility] #[id number], Partial fill upon patient request if the prescription is for a sched... Start Date: 10/14/21 Status: Ordered [place] Saline Mist 0.65% nasal spray 2 sprays, Nares, Both, 4 times a day, # 1 each, 0 Refills, Maintenance, 02/04/22 13:32:00 EDT, [facility] #[id number], Partial fill upon patient request if the [...] tablet, 0 Refills, Maintenance, 12/27/21 13:43:00 EDT, [facility] #[id number], 153, cm, 10/08/21 13:23:00 EDT, Height, 113.9, kg, 10/08/21 13:23:00EDT, Dry Weight Start Date: 12/27/21 Status: Ordered clonazePAM 0.5 mg oral tablet 1 tablet = 0.5 mg, By Mouth, 4 times a day, PRN Anxiety, Patient on controlled substance contract. Please do NOT fill until 09/23/2020, # 112 tablet, 0 Refills, Maintenance, 11/18/20 21:02:00 EDT, Tablet, [facility]/pharmacy #[id number], Partial fill upon patient... Start Date: 11/18/20 Status: Ordered diclofenac 1% topical gel = 1 Gm, Topically, 4 times a day, FOR PAIN., # 100 Gm, 1 Refills, [id number], 30, APPLY 1 GM TOPICALLY 4 TIMES A DAY FOR PAIN, 153, cm, 06/07/21 11:07:00 EST, Height, 105, kg, 05/31/21 15:15:00 EST, Dry Weight Start Date: 08/05/21 Status: Ordered Dilaudid 2 mg oral tablet 1 tablet = 2 mg, By Mouth, 2 times a day, PRN Pain , Severe, checked masspat, # 28 tablet, 0 Refills, Maintenance, 03/04/22 14:11:00 EST, Tablet, [facility] #[id number], Partial fill upon patient request if the prescription is for a schedule II o... Start Date: 03/04/22 Status: Ordered Estrace Vaginal Cream 0.1 mg/g = 2 Gm, Vaginally, Daily at bedtime, 2g PV daily at bedtime x 2 weeks, then 1g PV 1-3x per week, # 42.5 Gm, 5 Refills, Maintenance, 11/09/21 11:17:00 EDT, [facility] #[id number], Partial fill upon patient request if the prescription is for a sche... Start Date: 11/09/21 Status: Ordered Estradiol Patch 0.0375 mg/24 hours twice weekly transdermal film, extended release See Instructions, APPLY 1 PATCH TOPICALLY TWICE WEEKLY DIRECTED, # 8 patch, 0 Refills, Maintenance, 02/26/22 10:23:00 EST, [facility] #[id number], 28, APPLY 1 PATCH TOPICALLY TWICE WEEKLY DIRECTED, 153, cm, 01/04/22 13:15:00 EDT, Height, 11... Start Date: 02/26/22 Status: Ordered fluconazole 150 mg oral tablet 1 tablet = 150 mg, By Mouth, Once, PRN vaginal yeast infection, # 1 tablet, 0 Refills, Soft Stop, 03/15/22 10:42:00 EST, Tablet, [facility] #[id number], Partial fill upon patient request if the prescription is for a schedule II opioid drug., 153,... Start Date: 03/15/22 Status: Ordered gabapentin 800 mg oral tablet See Instructions, TAKE 1 TABLET BY MOUTH FOUR TIMES DAILY, # 360 tablet, 0 Refills, [facility] #[id number], 153, cm, 10/08/21 13:23:00 EDT, Height, 113.9, [...] capsule, 1 Refills, Maintenance, 12/08/21 10:10:00 EDT, [facility] #[id number], 153, cm, 10/08/21 13:23:00 EDT, Height, 113.9,kg, [...] increase, # 90 tablet, 1 Refills, Maintenance, 03/14/22 15:04:00 EST, Tablet, [facility] #[id number], Partial fill upon patient request if the prescription is for a schedule II opioid drug., 153, cm... Start Date: 03/14/22 Status: Ordered lidocaine 3% topical gel 1 application, Topically, 2 times a day, PRN as needed for pain, to replace 2% topical, # 28.5 Gm, 2 Refills, Acute 03/29/22 14:17:00 EST, 12/28/21 14:17:00 EDT, Gel, [facility] #[id number], Partial fill upon patient request if the prescription i... Start Date: 12/28/21 Stop Date: 03/29/22 Status: Ordered meloxicam 15 mg oral tablet 1/2 TO 1 TABLET, By Mouth, Daily, PRN NEEDED FOR MODERATE PAIN, # 30 tablet, 5 Refills, Maintenance, 01/10/22 20:40:00 EDT, [facility] #[id number], 153, cm, 01/04/22 13:15:00 EDT, Height, 113.9, [...] capsule, 0 Refills, Maintenance, 01/16/22 8:28:00 EDT, [facility] #[id number], 153, cm, 01/04/22 13:15:00 EDT, Height, 113.9, kg, 10/08/21 13:23:00 EDT, Dry Weight Start Date: 01/16/22 Status: Ordered ondansetron 4 mg oral tablet 1 tablet, By Mouth, Every 8 hours, PRN NEEDED FOR NAUSEA OR VOMITING, # 30 tablet, 0 Refills, Maintenance, 03/01/22 11:29:00 EST, [facility] #[id number], 153, cm, 01/04/22 13:15:00 EDT, Height, 113.9, kg, 10/08/21 13:23:00 EDT, Dry Weight Start Date: 03/01/22 Status: Ordered oxybutynin 5 mg oral tablet 1 tablet, By Mouth, 3 times a day, # 270 tablet, 1 Refills, 01/10/22 10:29:00 EDT, [facility] #[id number], 153, cm, 01/04/22 13:15:00 EDT, Height, 113.9, [...] 60 tablet, Refills 2, Tot.Refills 2, Maintenance, 03/14/22 15:10:00 EST, Route to Pharmacy Electronically, [facility] #[id number], Partial fill upon patient request if the... Start Date: 03/14/22 Status: Ordered valacyclovir 1 gm oral tablet 1 tablet = 1 Gm, By Mouth, 3 times a day, for 7 days, # 21 tablet, 0 Refills, Acute 03/22/22 10:41:00 EST, 03/15/22 10:41:00 EST, Tablet, [facility] #[id number], Partial fill upon patient request if the prescription is for a schedule II opioid . Start Date: 03/15/22 Stop Date: 03/22/22 Status: Ordered Problem List Condition Confirmation Course [...] Bilateral primary osteoarthritis of knee Discharge Diagnosis 03/14/22 Insomnia Discharge Diagnosis 03/14/22 Nightmares Discharge Diagnosis 03/14/22 Hypothyroidism Discharge Diagnosis 03/14/22 Social History Social History Type Response Smoking Status Former smoker, quit more than 30 days ago;Never entered on: 11/09/21 Sex Patient Care team information Care Team Personnel Name: Kaiden Chirinos MD Position: [facility] Primary Care Physician Member Role: PCP Address: Address: [address] [place] [address] Adult & [place] [address]- Care Team Related Persons Name: RODOLFO SHEIKH Address: home [address] [address] Name: CHIARA TEE Address: home [address] [place] [id number]
--- OUTSIDE RECORDS SUMMARY | 2022-12-30 08:13 | XMS_ITS | Continuity of Care Document ---
Author Name Unknown Organization [facility] Address [address] [place] [address]- Care Team Providers Care Caddie Name Role Phone Kaiden Chirinos MD Primary Care Physician Encounter [facility] Date(s): 12/09/20 - 01/08/21 [facility] [address] [place] [address]- Attending Physician: Admjahaira, Jc Admitting Physician: AdmtrJc Referring Physician: Admtr, Ar8 Allergies, Adverse Reactions, Alerts Substance Reaction Severity [...] to Pharmacy Electronically, [facility]/pharmacy #[id number], Partial fill upon patient request if the prescription is for a schedule II... Start Date: 12/24/20 Status: Ordered baclofen 10 mg oral tablet 10 mg, 1, tablet, By Mouth, 3 times a day, PRN, # 30 tablet, Refills 0, Tot. Refills 0, Maintenance, Spasm, 01/31/19 21:47:23 EDT, Route to Pharmacy Electronically, [id number], [facility]/pharmacy #[id number] Start Date: [...] tablet, 1 Refills, Maintenance, 11/09/20 23:47:00EDT, Tablet, [facility]/pharmacy #[id number], Partial [...] 1 Refills, Maintenance, 11/05/20 11:43:00 EDT, Tablet, [facility]acy #[id number], Partial fill upon [...] patient reques... Start Date: 10/30/20 Status: Ordered Tessalon Perles 100 mg oral capsule 2 capsule = 200 mg, By Mouth, 3 times a day, PRN as needed for cough, # 30 capsule, 0 Refills, Acute 02/05/21 8:35:00 EDT, 01/06/21 8:35:00 EDT, Capsule, [facility] #[id number], Partial fill upon patientrequest if the prescription is for a schedule II op... Start Date: 01/06/21 Stop Date: 02/05/21 Status: Ordered traZODone 150 mg oral tablet [...]
--- OUTSIDE RECORDS SUMMARY | 2022-12-30 08:13 | XMS_ITS | Continuity of Care Document ---
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 Start Date: 12/22/21 Status: Ordered albuterol 0.083% inhalation solution 3 mL = 2.5 mg, Inhalation, Every 4 hours, PRN for wheezing/cough/shortness of breath, # 25 each, 0 Refills, Maintenance, 10/14/21 22:10:00 EDT, Solution, [facility] #[id number], Partial fill upon patient request if the prescription is for a sched... Start Date: 10/14/21 Status: Ordered [place] Saline Mist 0.65% nasal spray 2 sprays, Nares, Both, 4 times a day, # 1 each, 0 Refills, Maintenance, 02/04/22 13:32:00 EDT, [facility] #[id number], Partial fill upon patient request if the [...] tablet, 0 Refills, Maintenance, 12/27/21 13:43:00 EDT, [facility] #[id number], 153, cm, 10/08/21 13:23:00 EDT, Height, 113.9, kg, 10/08/21 13:23:00EDT, Dry Weight Start Date: 12/27/21 Status: Ordered clonazePAM 0.5 mg oral tablet 1 tablet = 0.5 mg, By Mouth, 4 times a day, PRN Anxiety, Patient on controlled substance contract. Please do NOT fill until 09/23/2020, # 112 tablet, 0 Refills, Maintenance, 11/18/20 21:02:00 EDT, Tablet, [facility]/pharmacy #[id number], Partial fill upon patient... Start Date: 11/18/20 Status: Ordered diclofenac 1% topical gel = 1 Gm, Topically, 4 times a day, FOR PAIN., # 100 Gm, 1 Refills, [facility], 30, APPLY 1 GM TOPICALLY 4 TIMES A DAY FOR PAIN, 153, cm, 06/07/21 11:07:00 EST, Height, 105, kg, 05/31/21 15:15:00 EST, Dry Weight Start Date: 08/05/21 Status: Ordered Dilaudid 2 mg oral tablet 1 tablet = 2 mg, By Mouth, 2 times a day, PRN Pain , Severe, checked masspat, # 28 tablet, 0 Refills, Maintenance, 02/18/22 16:36:00 EDT, Tablet, [facility] #[id number], Partial fill upon patient request if the prescription is for a schedule II o... Start Date: 02/18/22 Status: Ordered Estrace Vaginal Cream 0.1 mg/g = 2 Gm, Vaginally, Daily at bedtime, 2g PV daily at bedtime x 2 weeks, then 1g PV 1-3x per week, # 42.5 Gm, 5 Refills, Maintenance, 11/09/21 11:17:00 EDT, [facility] #[id number], Partial fill upon patient request if the prescription is for a sche... Start Date: 11/09/21 Status: Ordered Estradiol Patch 0.0375 mg/24 hours twice weekly transdermal film, extended release See Instructions, APPLY 1 PATCH TOPICALLY TWICE WEEKLY DIRECTED, # 8 patch, 0 Refills, Maintenance, 02/26/22 10:23:00 EST, [facility] #[id number], 28, APPLY 1 PATCH TOPICALLY TWICE WEEKLY DIRECTED, 153, cm, 01/04/22 13:15:00 EDT, Height, 11... Start Date: 02/26/22 Status: Ordered fluconazole 150 mg oral tablet 1 tablet = 150 mg, By Mouth, Once, # 1 tablet, 0 Refills, Soft Stop, 02/14/22 14:41:00 EDT, Tablet,[facility] #[id number], Partial fill upon patient request if the prescription is for a schedule II opioid drug., 153, cm, 01/04/22 13:15:00 EDT, H... Start Date: 02/14/22 Status: Ordered gabapentin 800 mg oral tablet See Instructions, TAKE 1 TABLET BY MOUTH FOUR TIMES DAILY, # 360 tablet, 0 Refills, [facility] #[id number], 153, cm, 10/08/21 13:23:00 EDT, Height, 113.9, [...] capsule, 1 Refills, Maintenance, 12/08/21 10:10:00 EDT, [facility] #[id number], 153, cm, 10/08/21 13:23:00 EDT, Height, 113.9,kg, 10/08/21 13:23:00 EDT, Dry Weight Start Date: 12/08/21 Status: Ordered Incontenence Pads, Extra Long Day Time Incontenence Pads, Extra Long Day Time, See Instructions, # 150 each, Refills 11, Tot. Refills 11, Maintenance, Use for Dx: urinary incontenence R32 Duration of need: x99, 02/22/22 15:23:00 EST, Supply Start Date: 02/22/22 Status: Ordered Incontenence Pads, Night Time Extra Long Heavy Incontenence Pads, Night Time Extra Long Heavy, See Instructions, # 90 each, Refills 11, Tot. Refills 11, Maintenance, Use for Dx: urinary incontenence R32 Duration of need x 99, 02/22/22 15:23:00 EST, Supply Start Date: 02/22/22 Status: Ordered levothyroxine 0.112 mg oral tablet 1 tablet = 112 mcg, By Mouth, Daily, avoid antacids, calcium, or iron for at least 4 hrs before or 4 hrs after on an empty stomach dose increase, # 30 tablet, 1 Refills, Maintenance, 11/30/21 15:44:00 EDT, Tablet, [facility] #[id number], [place]... Start Date: 11/30/21 Status: Ordered levothyroxine 0.112 mg oral tablet 1 tablet, By Mouth, Daily, AVOID ANTACIDS, CALCIUM, OR IRON FOR AT LEAST 4 HOURS BEFORE OR 4 HOURS AFTER; ON AN ON AN EMPTY STOMACH, # 90 tablet, 0 Refills, Maintenance, 01/20/22 17:46:00 EDT, [facility] #[id number], 153, cm, 01/04/22 13:15:00 ED... Start Date: 01/20/22 Status: Ordered lidocaine 3% topical gel 1 application, Topically, 2 times a day, PRN as needed for pain, to replace 2% topical, # 28.5 Gm, 2 Refills, Acute 03/29/22 14:17:00 EST, 12/28/21 14:17:00 EDT, Gel, [facility] #[id number], Partial fill upon patient request if the prescription i... Start Date: 12/28/21 Stop Date: 03/29/22 Status: Ordered meloxicam 15 mg oral tablet 1/2 TO 1 TABLET, By Mouth, Daily, PRN NEEDED FOR MODERATE PAIN, # 30 tablet, 5 Refills, Maintenance, 01/10/22 20:40:00 EDT, [facility] #[id number], 153, cm, 01/04/22 13:15:00 EDT, Height, 113.9, [...] capsule, 0 Refills, Maintenance, 01/16/22 8:28:00 EDT, [facility] #[id number], 153, cm, 01/04/22 13:15:00 EDT, Height, 113.9, kg, 10/08/21 13:23:00 EDT, Dry Weight Start Date: 01/16/22 Status: Ordered ondansetron 4 mg oral tablet 1 tablet, By Mouth, Every 8 hours, PRN NEEDED FOR NAUSEA OR VOMITING, # 30 tablet, 0 Refills, Maintenance, 03/01/22 11:29:00 EST, [facility] #[id number], 153, cm, 01/04/22 13:15:00 EDT, Height, 113.9, kg, 10/08/21 13:23:00 EDT, Dry Weight Start Date: 03/01/22 Status: Ordered oxybutynin 5 mg oral tablet 1 tablet, By Mouth, 3 times a day, # 270 tablet, 1 Refills, 01/10/22 10:29:00 EDT, [facility] #[id number], 153, cm, 01/04/22 13:15:00 EDT, Height, 113.9, [...] Status: Ordered traZODone 50 mg oral tablet 50 mg, 1, tablet, By Mouth, Daily, one hour prior to bedtime, # 30 tablet, Refills 2, Tot. Refills 2, Maintenance, 02/18/22 16:37:00 EDT, Route to Pharmacy Electronically, [facility] #[id number], Partial fill upon patient request if the prescript... Start Date: 02/18/22 Status: Ordered Problem List Condition Confirmation Course [...] Team Personnel Name: Kaiden Chirinos MD Position: [facility] Primary Care Physician Member Role: PCP Address: Address: [address] [place] [address] Adult [place] [address]- Care Team Related Persons Name: RODOLFO SHEIKH Address: home [address] [facility] [address] [place] [id number] Name: CHIARA TEE Address: home [address] [place] [address] [place] [address]
--- OUTSIDE RECORDS SUMMARY | 2022-12-30 08:13 | XMS_ITS | Continuity of Care Document ---
Author Name Unknown Organization [facility] Address [address] [place] [address]- Care Team Providers Care Assistant News Director Name Role Phone Kaiden Chirinos MD Primary Care Physician Encounter [facility] Date(s): 06/07/22 - 07/07/22 [facility] [address] [place], [place] [address] Allergies, Adverse Reactions, Alerts Substance [...] 8.5 Gm,0 Refills, Maintenance, 12/22/21 10:40:00 EDT, [facility] #[id number], 2 puffs Inhalation Every 4 hours,PRN: NEEDED FOR WHEEZING/cough/shortness... Start Date: 12/22/21 Status: Ordered albuterol 0.083% inhalation solution 3 mL = 2.5 mg, Inhalation, Every 4 hours, PRN for wheezing/cough/shortness of breath, # 25 each, 0 Refills, Maintenance, 03/15/23 13:08:00 EDT, Solution, [facility] #[id number], Partial fill upon patient request if the prescription is for a sched... Start Date: 06/29/22 Status: Ordered [place] Saline Mist 0.65% nasal spray 2 sprays, Nares, Both, 4 times a day, # 1 each, 0 Refills, Maintenance, 02/04/22 13:32:00 EDT, [facility] #[id number], Partial fill upon patient request if the [...] tablet, 0 Refills, Maintenance, 12/27/21 13:43:00 EDT, [facility] #[id number], 153, cm, 10/08/21 13:23:00 EDT, Height, 113.9, kg, 10/08/21 13:23:00EDT, Dry Weight Start Date: 12/27/21 Status: Ordered chlorhexidine 2% topical liquid See Instructions, 1 application to bilateral forearms twice weekly, # 120 mL, 3 Refills, Soft Stop,06/17/22 11:06:00 EST, Liquid, [facility] #[id number], Partial fill upon patient request if the prescription is for a schedule II opioid drug., 1... Start Date: 06/17/22 Status: Ordered chlorhexidine 4% topical soap See Instructions, apply topically twice weekly to skin on forearms, # 120 mL, 2 Refills, Soft Stop,06/17/22 16:03:00 EST, [facility] #[id number], Partial fill upon patient request if the prescription is for a schedule II opioid drug., apply topi... Start Date: 06/17/22 Status: Ordered clonazePAM 0.5 mg oral tablet 1 tablet = 0.5 mg, By Mouth, 4 times a day, PRN Anxiety, Patient on controlled substance contract. Please do NOT fill until 09/23/2020, # 112 tablet, 0 Refills, Maintenance, 11/18/20 21:02:00 EDT, Tablet, [facility]/pharmacy #[id number], Partial fill upon patient... Start Date: 11/18/20 Status: Ordered diclofenac 1% topical gel = 1 Gm, Topically, 4 times a day, FOR PAIN., # 100 Gm, 1 Refills, [id number], 30, APPLY 1 GM TOPICALLY 4 TIMES A DAY FOR PAIN, 153, cm, 06/07/21 11:07:00 EST, Height, 105, kg, 05/31/21 15:15:00 EST, Dry Weight Start Date: 08/05/21 Status: Ordered Dilaudid 2 mg oral tablet 1 tablet = 2 mg, By Mouth, 2 times a day, PRN Pain , Severe, checked masspat, # 56 tablet, 0 Refills, Maintenance, 06/27/22 21:04:00 EDT, Tablet, [facility] #[id number], Partial fill upon patient request if the prescription is for a schedule II o... Start Date: 06/27/22 Status: Ordered Estrace Vaginal Cream 0.1 mg/g = 2 Gm, Vaginally, Daily at bedtime, 2g PV daily at bedtime x 2 weeks, then 1g PV 1-3x per week, # 42.5 Gm, 5 Refills, Maintenance, 11/09/21 11:17:00 EDT, [facility] #[id number], Partial fill upon patient request if the prescription is for a sche... Start Date: 11/09/21 Status: Ordered Estradiol Patch 0.0375 mg/24 hours twice weekly transdermal film, extended release See Instructions, APPLY 1 PATCH TOPICALLY TWICE WEEKLY DIRECTED, # 8 patch, 6 Refills, Maintenance, 03/23/22 16:10:00 EST, [facility] #[id number], 28, APPLY 1 PATCH TOPICALLY TWICE WEEKLY DIRECTED, 153, cm, 01/04/22 13:15:00 EDT, Height, 11... Start Date: 03/23/22 Status: Ordered fluconazole 150 mg oral tablet 1 tablet = 150 mg, By Mouth, Once, PRN vaginal yeast infection, # 1 tablet, 0 Refills, Soft Stop, 03/15/22 10:42:00 EST, Tablet, [facility] #[id number], Partial fill upon patient request if the prescription is for a schedule II opioid drug., 153,... Start Date: 03/15/22 Status: Ordered fluticasone 50 mcg/inh nasal spray See Instructions, SHAKE LIQUID AND USE 1 SPRAY IN EACH NOSTRIL TWICE DAILY, # 16 Gm, 1 Refills, Maintenance, 05/18/22 13:57:00 EST, [facility] #[id number], 30, SHAKE LIQUID AND USE 1 SPRAY IN EACH NOSTRIL TWICE DAILY, 153, cm, 04/25/22 16:23:00 E... Start Date: 05/18/22 Status: Ordered gabapentin 800 mg oral tablet 1 tablet, By Mouth, 4 times a day, # 360 tablet, 1 Refills, Maintenance, 04/19/22 12:59:00 EST, [facility] #[id number], 153, cm, 01/04/22 13:15:00 EDT, Height, 113.9, [...] capsule, 1 Refills, Maintenance, 05/20/22 12:57:00 EST, [facility] #[id number], 153, cm, 04/25/22 16:23:00 EST, Height, 109, [...] 1 Refills, Maintenance, 04/28/22 13:51:00 EST, Tablet, [facility] #[id number], Partial fill upon patient request if the prescription is for a schedule II opioid drug., 153, cm... Start Date: 04/28/22 Status: Ordered lidocaine 4% topical cream 1 application, Topically, 3 times a day, PRN Pain , Mild, # 30 Gm, 1 Refills, Maintenance, 06/24/2315:24:00 EST, Cream, [facility] #[id number], Partial fill upon patient request if the prescription is for a schedule II opioid drug., 1 applicatio... Start Date: 06/23/22 Status: Ordered meloxicam 15 mg oral tablet 1/2 TO 1 TABLET, By Mouth, Daily, PRN NEEDED FOR MODERATE PAIN, # 30 tablet, 5 Refills, Maintenance, 01/10/22 20:40:00 EDT, [facility] #[id number], 153, cm, 01/04/22 13:15:00 EDT, Height, 113.9, [...] capsule, 1 Refills, Maintenance, 04/19/22 12:41:00 EST, [facility] #[id number], 153, cm, 01/04/22 13:15:00 EDT, Height, 113.9, kg, 10/08/21 13:23:00 EDT, Dry Weight Start Date: 04/19/22 Status: Ordered ondansetron 4 mg oral tablet 1 tablet, By Mouth, Every 8 hours, PRN NEEDED FOR NAUSEA OR VOMITING, # 30 tablet, 1 Refills, Maintenance, 06/14/22 10:29:00 EST, [facility] #[id number], 153, cm, 06/08/22 9:37:00 EST, Height, 109, kg, 04/25/22 15:54:00 EST, Dry Weight Start Date: 06/14/22 Status: Ordered oxybutynin 5 mg oral tablet 1 tablet, By Mouth, 3 times a day, # 270 tablet, 0 Refills, Maintenance, 07/05/22 8:13:00 EDT, [facility] #[id number], 153, cm, 06/17/22 10:53:00 EST, Height, 109, [...] 07/01/22 14:21:00 EDT, Route to Pharmacy Electronically, [facility] #[id number], Partial fill upon patient request if the... Start Date: 07/01/22 Status: Ordered triamcinolone 0.1% topical cream 1 application, Topically, 3 times a day, PRN arm rash, # 30 Gm, 1 Refills, Acute 06/08/23 9:53:00 EST, 06/08/22 9:53:00 EST, Cream, [facility] #[id number], Partial fill upon patient request if the [...] Care Physician Member Role: PCP Address: Address: [address] [place] [address] Adult [facility] [place] [address]- Care Team Related Persons Name: AGUILAR RODOLFO Address: home [address] [facility] [address] [place] [id number] Name: CHIARA TEE Address: home [address] [facility] [address] [place] [address]
--- OUTSIDE RECORDS SUMMARY | 2022-12-30 08:13 | XMS_ITS | Continuity of Care Document ---
Author Name Unknown Organization [facility] Address [address] [place] [address]- Care Team Providers Care Supervisor Travel Trailer Name Role Phone Candis CARDENAS, Kaiden Villalta Primary Care Physician Encounter [facility] Date(s): 02/15/22 - 03/17/[address] [address]- Allergies, Adverse Reactions, Alerts Substance Reaction Severity [...] 8.5 Gm,0 Refills, Maintenance, 12/22/21 10:40:00 EDT, [facility] #[id number], 2 puffs Inhalation Every 4 hours,PRN: NEEDED FOR WHEEZING/cough/shortness... Start Date: 12/22/21 Status: Ordered albuterol 0.083% inhalation solution 3 mL = 2.5 mg, Inhalation, Every 4 hours, PRN for wheezing/cough/shortness of breath, # 25 each, 0 Refills, Maintenance, 10/14/21 22:10:00 EDT, Solution, [facility] #[id number], Partial fill upon patient request if the prescription is for a sched... Start Date: 10/14/21 Status: Ordered [place] Saline Mist 0.65% nasal spray 2 sprays, Nares, Both, 4 times a day, # 1 each, 0 Refills, Maintenance, 02/04/22 13:32:00 EDT, [facility] #[id number], Partial fill upon patient request if the [...] tablet, 0 Refills, Maintenance, 12/27/21 13:43:00 EDT, [facility] #[id number], 153, cm, 10/08/21 13:23:00 EDT, Height, 113.9, kg, 10/08/21 13:23:00EDT, Dry Weight Start Date: 12/27/21 Status: Ordered clonazePAM 0.5 mg oral tablet 1 tablet = 0.5 mg, By Mouth, 4 times a day, PRN Anxiety, Patient on controlled substance contract. Please do NOT fill until 09/23/2020, # 112 tablet, 0 Refills, Maintenance, 11/18/20 21:02:00 EDT, Tablet, [facility]/pharmacy #[id number], Partial fill upon patient... Start Date: 11/18/20 Status: Ordered diclofenac 1% topical gel = 1 Gm, Topically, 4 times a day, FOR PAIN., # 100 Gm, 1 Refills, [id number], 30, APPLY 1 GM TOPICALLY 4 TIMES A DAY FOR PAIN, 153, cm, 06/07/21 11:07:00 EST, Height, 105, kg, 05/31/21 15:15:00 EST, Dry Weight Start Date: 08/05/21 Status: Ordered Dilaudid 2 mg oral tablet 1 tablet = 2 mg, By Mouth, 2 times a day, PRN Pain , Severe, checked masspat, # 28 tablet, 0 Refills, Maintenance, 03/04/22 14:11:00 EST, Tablet, [facility] #[id number], Partial fill upon patient request if the prescription is for a schedule II o... Start Date: 03/04/22 Status: Ordered Estrace Vaginal Cream 0.1 mg/g = 2 Gm, Vaginally, Daily at bedtime, 2g PV daily at bedtime x 2 weeks, then 1g PV 1-3x per week, # 42.5 Gm, 5 Refills, Maintenance, 11/09/21 11:17:00 EDT, [facility] #[id number], Partial fill upon patient request if the prescription is for a sche... Start Date: 11/09/21 Status: Ordered Estradiol Patch 0.0375 mg/24 hours twice weekly transdermal film, extended release See Instructions, APPLY 1 PATCH TOPICALLY TWICE WEEKLY DIRECTED, # 8 patch, 0 Refills, Maintenance, 02/26/22 10:23:00 EST, [facility] #[id number], 28, APPLY 1 PATCH TOPICALLY TWICE WEEKLY DIRECTED, 153, cm, 01/04/22 13:15:00 EDT, Height, 11... Start Date: 02/26/22 Status: Ordered fluconazole 150 mg oral tablet 1 tablet = 150 mg, By Mouth, Once, PRN vaginal yeast infection, # 1 tablet, 0 Refills, Soft Stop, 03/15/22 10:42:00 EST, Tablet, [facility] #[id number], Partial fill upon patient request if the prescription is for a schedule II opioid drug., 153,... Start Date: 03/15/22 Status: Ordered gabapentin 800 mg oral tablet See Instructions, TAKE 1 TABLET BY MOUTH FOUR TIMES DAILY, # 360 tablet, 0 Refills, [facility] #[id number], 153, cm, 10/08/21 13:23:00 EDT, Height, 113.9, [...] capsule, 1 Refills, Maintenance, 12/08/21 10:10:00 EDT, [facility] #[id number], 153, cm, 10/08/21 13:23:00 EDT, Height, 113.9,kg, [...] 1 Refills, Maintenance, 03/14/22 15:04:00 EST, Tablet, [facility] #[id number], Partial fill upon patient request if the prescription is for a schedule II opioid drug., 153, cm... Start Date: 03/14/22 Status: Ordered lidocaine 3% topical gel 1 application, Topically, 2 times a day, PRN as needed for pain, to replace 2% topical, # 28.5 Gm, 2 Refills, Acute 03/29/22 14:17:00 EST, 12/28/21 14:17:00 EDT, Gel, [facility] #[id number], Partial fill upon patient request if the prescription i... Start Date: 12/28/21 Stop Date: 03/29/22 Status: Ordered meloxicam 15 mg oral tablet 1/2 TO 1 TABLET, By Mouth, Daily, PRN NEEDED FOR MODERATE PAIN, # 30 tablet, 5 Refills, Maintenance, 01/10/22 20:40:00 EDT, [facility] #[id number], 153, cm, 01/04/22 13:15:00 EDT, Height, 113.9, [...] capsule, 0 Refills, Maintenance, 01/16/22 8:28:00 EDT, [facility] #[id number], 153, cm, 01/04/22 13:15:00 EDT, Height, 113.9, kg, 10/08/21 13:23:00 EDT, Dry Weight Start Date: 01/16/22 Status: Ordered ondansetron 4 mg oral tablet 1 tablet, By Mouth, Every 8 hours, PRN NEEDED FOR NAUSEA OR VOMITING, # 30 tablet, 0 Refills, Maintenance, 03/01/22 11:29:00 EST, [facility] #[id number], 153, cm, 01/04/22 13:15:00 EDT, Height, 113.9, kg, 10/08/21 13:23:00 EDT, Dry Weight Start Date: 03/01/22 Status: Ordered oxybutynin 5 mg oral tablet 1 tablet, By Mouth, 3 times a day, # 270 tablet, 1 Refills, 01/10/22 10:29:00 EDT, [facility] #[id number], 153, cm, 01/04/22 13:15:00 EDT, Height, 113.9, [...] 03/14/22 15:10:00 EST, Route to Pharmacy Electronically, [facility] #[id number], Partial fill upon patient request if the... Start Date: 03/14/22 Status: Ordered valacyclovir 1 gm oral tablet 1 tablet = 1 Gm, By Mouth, 3 times a day, for 7 days, # 21 tablet, 0 Refills, Acute 03/22/22 10:41:00 EST, 03/15/22 10:41:00 EST, Tablet, [facility] #[id number], Partial fill upon patient request if the prescription is for a schedule II opioid Start Date: 03/15/22 Stop Date: 03/22/22 Status: [...] Personnel Name: Candis CARDENAS, Kaiden Villalta Position: [facility] Primary Care Physician Member Role: PCP Address: Address: [address] [place] [address] Adult & [place] [address]- Care Team Related Persons Name: RODOLFO SHEIKH Address: home [address] [facility] [address] [place] [id number] Name: CHIARA TEE Address: home [address] [place] [address] [place] [id number]
--- OUTSIDE RECORDS SUMMARY | 2022-12-30 08:13 | XMS_ITS | Continuity of Care Document ---
Author Name Unknown Organization [facility] Address [address] [place] [address]- Care Team Providers Care Link Assembler Name Role Phone Candis CARDENAS, Kaiden Villalta Primary Care Physician [phone] Encounter [facility] Date(s): 06/08/22 - 07/08/22 [facility] [address] [place], [place] [address] Allergies, Adverse Reactions, Alerts Substance Reaction [...] 8.5 Gm,0 Refills, Maintenance, 12/22/21 10:40:00 EDT, [facility] #[id number], 2 puffs Inhalation Every 4 hours,PRN: NEEDED FOR WHEEZING/cough/shortness... Start Date: 12/22/21 Status: Ordered albuterol 0.083% inhalation solution 3 mL = 2.5 mg, Inhalation, Every 4 hours, PRN for wheezing/cough/shortness of breath, # 25 each, 0 Refills, Maintenance, 06/29/22 13:08:00 EDT, Solution, [facility] #[id number], Partial fill upon patient request if the prescription is for a sched... Start Date: 06/29/22 Status: Ordered [place] Saline Mist 0.65% nasal spray 2 sprays, Nares, Both, 4 times a day, # 1 each, 0 Refills, Maintenance, 02/04/22 13:32:00 EDT, [facility] #[id number], Partial fill upon patient request if the [...] tablet, 0 Refills, Maintenance, 12/27/21 13:43:00 EDT, [facility] #[id number], 153, cm, 10/08/21 13:23:00 EDT, Height, 113.9, kg, 10/08/21 13:23:00EDT, Dry Weight Start Date: 12/27/21 Status: Ordered chlorhexidine 2% topical liquid See Instructions, 1 application to bilateral forearms twice weekly, # 120 mL, 3 Refills, Soft Stop,06/17/22 11:06:00 EST, Liquid, [facility] #[id number], Partial fill upon patient request if the prescription is for a schedule II opioid drug., 1... Start Date: 06/17/22 Status: Ordered chlorhexidine 4% topical soap See Instructions, apply topically twice weekly to skin on forearms, # 120 mL, 2 Refills, Soft Stop,06/17/22 16:03:00 EST, [facility] #[id number], Partial fill upon patient request if the prescription is for a schedule II opioid drug., apply topi... Start Date: 06/17/22 Status: Ordered clonazePAM 0.5 mg oral tablet 1 tablet = 0.5 mg, By Mouth, 4 times a day, PRN Anxiety, Patient on controlled substance contract. Please do NOT fill until 09/23/2020, # 112 tablet, 0 Refills, Maintenance, 11/18/20 21:02:00 EDT, Tablet, [facility]/pharmacy #[id number], Partial fill upon patient... Start Date: 11/18/20 Status: Ordered diclofenac 1% topical gel = 1 Gm, Topically, 4 times a day, FOR PAIN., # 100 Gm, 1 Refills, [facility], 30, APPLY 1 GM TOPICALLY 4 TIMES A DAY FOR PAIN, 153, cm, 06/07/21 11:07:00 EST, Height, 105, kg, 05/31/21 15:15:00 EST, Dry Weight Start Date: 08/05/21 Status: Ordered Dilaudid 2 mg oral tablet 1 tablet = 2 mg, By Mouth, 2 times a day, PRN Pain , Severe, checked masspat, # 56 tablet, 0 Refills, Maintenance, 06/27/22 21:04:00 EDT, Tablet, [facility] #[id number], Partial fill upon patient request if the prescription is for a schedule II o... Start Date: 06/27/22 Status: Ordered Estrace Vaginal Cream 0.1 mg/g = 2 Gm, Vaginally, Daily at bedtime, 2g PV daily at bedtime x 2 weeks, then 1g PV 1-3x per week, # 42.5 Gm, 5 Refills, Maintenance, 11/09/21 11:17:00 EDT, [facility] #[id number], Partial fill upon patient request if the prescription is for a sche... Start Date: 11/09/21 Status: Ordered Estradiol Patch 0.0375 mg/24 hours twice weekly transdermal film, extended release See Instructions, APPLY 1 PATCH TOPICALLY TWICE WEEKLY DIRECTED, # 8 patch, 6 Refills, Maintenance, 03/23/22 16:10:00 EST, [facility] #[id number], 28, APPLY 1 PATCH TOPICALLY TWICE WEEKLY DIRECTED, 153, cm, 01/04/22 13:15:00 EDT, Height, 11... Start Date: 03/23/22 Status: Ordered fluconazole 150 mg oral tablet 1 tablet = 150 mg, By Mouth, Once, PRN vaginal yeast infection, # 1 tablet, 0 Refills, Soft Stop, 03/15/22 10:42:00 EST, Tablet, [facility] #[id number], Partial fill upon patient request if the prescription is for a schedule II opioid drug., 153,... Start Date: 03/15/22 Status: Ordered fluticasone 50 mcg/inh nasal spray See Instructions, SHAKE LIQUID AND USE 1 SPRAY IN EACH NOSTRIL TWICE DAILY, # 16 Gm, 1 Refills, Maintenance, 05/18/22 13:57:00 EST, [facility] #[id number], 30, SHAKE LIQUID AND USE 1 SPRAY IN EACH NOSTRIL TWICE DAILY, 153, cm, 04/25/22 16:23:00 E... Start Date: 05/18/22 Status: Ordered gabapentin 800 mg oral tablet 1 tablet, By Mouth, 4 times a day, # 360 tablet, 1 Refills, Maintenance, 04/19/22 12:59:00 EST, [facility] #[id number], 153, cm, 01/04/22 13:15:00 EDT, Height, 113.9, [...] capsule, 1 Refills, Maintenance, 05/20/22 12:57:00 EST, [facility] #[id number], 153, cm, 04/25/22 16:23:00 EST, Height, 109, [...] 1 Refills, Maintenance, 04/28/22 13:51:00 EST, Tablet, [facility] #[id number], Partial fill upon patient request if the prescription is for a schedule II opioid drug., 153, cm... Start Date: 04/28/22 Status: Ordered lidocaine 4% topical cream 1 application, Topically, 3 times a day, PRN Pain , Mild, # 30 Gm, 1 Refills, Maintenance, 06/24/2315:24:00 EST, Cream, [facility] #[id number], Partial fill upon patient request if the prescription is for a schedule II opioid drug., 1 applicatio... Start Date: 06/23/22 Status: Ordered meloxicam 15 mg oral tablet 1/2 TO 1 TABLET, By Mouth, Daily, PRN NEEDED FOR MODERATE PAIN, # 30 tablet, 5 Refills, Maintenance, 01/10/22 20:40:00 EDT, [facility] #[id number], 153, cm, 01/04/22 13:15:00 EDT, Height, 113.9, [...] capsule, 1 Refills, Maintenance, 04/19/22 12:41:00 EST, [facility] #[id number], 153, cm, 01/04/22 13:15:00 EDT, Height, 113.9, kg, 10/08/21 13:23:00 EDT, Dry Weight Start Date: 04/19/22 Status: Ordered ondansetron 4 mg oral tablet 1 tablet, By Mouth, Every 8 hours, PRN NEEDED FOR NAUSEA OR VOMITING, # 30 tablet, 1 Refills, Maintenance, 06/14/22 10:29:00 EST, [facility] #[id number], 153, cm, 06/08/22 9:37:00 EST, Height, 109, kg, 04/25/22 15:54:00 EST, Dry Weight Start Date: 06/14/22 Status: Ordered oxybutynin 5 mg oral tablet 1 tablet, By Mouth, 3 times a day, # 270 tablet, 0 Refills, Maintenance, 07/05/22 8:13:00 EDT, [facility] #[id number], 153, cm, 06/17/22 10:53:00 EST, Height, 109, [...] 07/01/22 14:21:00 EDT, Route to Pharmacy Electronically, [facility] #[id number], Partial fill upon patient request if the... Start Date: 07/01/22 Status: Ordered triamcinolone 0.1% topical cream 1 application, Topically, 3 times a day, PRN arm rash, # 30 Gm, 1 Refills, Acute 06/08/23 9:53:00 EST, 06/08/22 9:53:00 EST, Cream, [facility] #[id number], Partial fill upon patient request if the [...] Care Physician Member Role: PCP Address: Address: [address] [place] [address] Adult [facility] [place] [address]- Care Team Related Persons Name: AGUILAR RODOLFO Address: home [address] [facility] [address] [place] [id number] Name: CHIARA TEE Address: home [address] [place] [address] [address] [place] [address]
--- OUTSIDE RECORDS SUMMARY | 2022-12-30 08:13 | XMS_ITS | Continuity of Care Document ---
Author Name Unknown Organization [facility] Address [address] [place] [address]- Care Team Providers Care Elementary Teacher Name Role Phone Kaiden Chirinos MD Primary Care Physician [phone] [id number] Date[facility]21 - 06/28/21 [facility] [address] [place] [address]- Encounter Diagnosis Neck pain(Discharge Diagnosis) - 06/21/21 Back pain, thoracic(Discharge Diagnosis) - 06/21/21 Knee pain, bilateral(Discharge Diagnosis) - 06/21/21 Attending Physician: Kaiden Chirinos MD Allergies, Adverse [...] FOR WHEEZING, # 8.5 each, 0 Refills, [id number], 20, INHALE 2 PUFFS BY MOUTH EVERY 4 HOURS NEEDED FOR WHEEZING, 160, cm, 03/30/21 10:47:00 EST, Height, 104.6, kg, 12/04/20 10:52:00 EDT, Dry Weight Start Date: 04/28/21 Status: Ordered amitriptyline 10 mg oral tablet 10 mg, 1, tablet, By Mouth, Daily at bedtime, # 90 tablet, Refills 1, Tot. Refills 1, Maintenance, 12/24/20 16:08:00 EDT, Route to Pharmacy Electronically, [facility]/pharmacy #[id number], Partial fill upon patient request if the prescription is for a schedule II... Start Date: 12/24/20 Status: Ordered baclofen 10 mg oral tablet 10 mg, 1, tablet, By Mouth, 3 times a day, PRN, # 30 tablet, Refills 0, Tot. Refills 0, Maintenance, Spasm, 01/31/19 21:47:23 EDT, Route to Pharmacy Electronically, [id number], [facility]/pharmacy #[id number] Start Date: 01/31/19 Stop Date: 02/14/19 Status: Ordered benzonatate 100 mg oral capsule 2 capsule, By Mouth, 3 times a day, PRN NEEDED FOR COUGH, # 30 capsule, 1 Refills, Physician Stop 03/19/22 17:38:00 EST, 02/19/22 16:55:00 EDT, [facility]/pharmacy #[id number], 160, cm, 12/04/20 10:52:00 EDT, Height, 104.6, kg, 12/04/20 10:52:00 EDT, Dry Weight Start Date: 02/19/22 Stop Date: 03/19/22 Status: Ordered benzonatate 100 mg oral capsule 2 capsule, By Mouth, 3 times a day, PRN NEEDED FOR COUGH, # 30 capsule, 1 Refills, Physician Stop 02/19/22 16:55:00 EDT, 02/19/21 16:54:00 EDT, [facility]/pharmacy #[id number], 160, cm, 12/04/20 10:52:00 EDT, Height, 104.6, kg, 12/04/20 10:52:00 EDT, Dry Weight Start Date: 02/19/21 Stop Date: 02/19/22 Status: Ordered clonazePAM 0.5 mg oral tablet 1 tablet = 0.5 mg, By Mouth, 4 times a day, PRN Anxiety, Patient on controlled substance contract. Please do NOT fill until 09/23/2020, # 112 tablet, 0 Refills, Maintenance, 11/18/20 21:02:00 EDT, Tablet, [facility]/pharmacy #[id number], Partial fill upon patient... Start Date: 11/18/20 Status: Ordered Famotidine 0 Refills, Maintenance, 04/07/19 16:11:00 EST Start Date: 04/07/19 Status: Ordered gabapentin 800 mg oral tablet 1 tablet, By Mouth, 4 times a day, # 360 tablet, 1 Refills, [id number], 160, cm, 03/30/21 10:47:00 EST, Height, 104.6, [...] 1 Refills, Maintenance, 06/07/21 19:08:00 EST, Capsule, [facility]/pharmacy #[id number], Partial fill upon patient request [...] 1 Refills, Maintenance, 05/14/21 15:23:00 EST, Tablet, [facility]/pharmacy #[id number], Partial fill upon patient request if the prescription is for a schedule II opioid drug., 160, c... Start Date: 05/14/21 Status: Ordered omeprazole 20 mg oral enteric coated capsule 1 capsule, By Mouth, Daily, # 90 capsule, 1 Refills, [id number], 160, cm, 03/30/21 10:47:00 EST, Height, 104.6, kg, 12/04/20 10:52:00 EDT, Dry Weight Start Date: 03/31/21 Status: Ordered ondansetron 4 mg oral tablet See Instructions, TAKE 1 TABLET BY MOUTH EVERY 8 HOURS NEEDED FOR NAUSEA AND VOMITING, # 15 tablet, 1 Refills, Physician Stop 07/12/21 15:23:00 EDT, 05/14/21 15:22:00 EST, [facility]/pharmacy #[id number], 160,cm, 03/30/21 10:47:00 EST, Height, 104.6, kg, 12/04... Start Date: 05/14/21 Stop Date: 07/12/21 Status: Ordered oxybutynin 5 mg oral tablet 1 tablet, By Mouth, 3 times a day, dose increase, # 270 tablet, 1 Refills, Maintenance, 03/19/21 17:40:00 EST, [facility]/pharmacy #[id number], 160, cm, 12/04/20 10:52:00 EDT, [...] Diagnosis Diagnosis Type Effective Dates Health Status Cl inical Service Informant Neck pain Discharge Diagnosis 06/21/21 Back pain, thoracic Discharge Diagnosis 06/21/21 Knee pain, bilateral Discharge Diagnosis 06/21/21 Social History Social History Type Response Tobacco Other: 25 YRS-QUIT. Sex
--- OUTSIDE RECORDS SUMMARY | 2022-12-30 08:13 | XMS_ITS | Continuity of Care Document ---
Author Name Unknown Organization [facility] Address [address] [place] [address]- Care Team Providers Care Engineering Secretary Name Role Phone Kaiden Chirinos MD Primary Care Physician Encounter [facility] Date(s): 11/09/20 - 12/09/20 [facility] [address] [place], [place] [address] Allergies, Adverse Reactions, Alerts Substance [...] 09/22/20 16:39:00 EDT, Route to Pharmacy Electronically, [facility]/pharmacy #[id number], Partial fill upon patient request if the prescription is for a schedule II... Start Date: 09/22/20 Status: Ordered baclofen 10 mg oral tablet 10 mg, 1, tablet, By Mouth, 3 times a day, PRN, # 30 tablet, Refills 0, Tot. Refills 0, Maintenance, Spasm, 01/31/19 21:47:23 EDT, Route to Pharmacy Electronically, [id number], [facility]/pharmacy #[id number] Start Date: 01/31/19 Stop Date: 02/14/19 Status: Ordered clonazePAM 0.5 mg oral tablet 1 tablet = 0.5 mg, By Mouth, 4 times a day, PRN Anxiety, Patient on controlled substance contract. Please do NOT fill until 09/23/2020, # 112 tablet, 0 Refills, Maintenance, 11/18/20 21:02:00 EDT, Tablet, [facility]/pharmacy #[id number], Partial fill upon patient... Start Date: 11/18/20 Status: Ordered Famotidine 0 Refills, Maintenance, 04/07/19 16:11:00 EST Start Date: 04/07/19 Status: Ordered gabapentin 800 mg oral tablet 1 tablet = 800 mg, By Mouth, 4 times a day, # 360 tablet, 1 Refills, Maintenance, 11/09/20 23:47:00EDT, Tablet, [facility]/pharmacy #[id number], Partial fill upon patient [...] 1 Refills, Maintenance, 11/05/20 11:43:00 EDT, Tablet, [facility]/pharmacy #[id number], Partial fill upon patient request if the prescription is for a schedule II opioid drug., 160, cm, 10/30/20 8:2... Start Date: 11/05/20 Status: Ordered meloxicam 15 mg oral tablet See Instructions, PRN Pain , Moderate, 0.5 to1 tab PO daily with food, # 30 capsule, 1 Refills, Maintenance, 12/04/20 11:27:00 EDT, Tablet, [facility]/pharmacy #[id number], Partial fill upon patient [...] Refills, Maintenance, 11/27/20 17:20:00 EDT, [id number], 160, cm, 10/30/20 8:28:00 EDT, Height, 105.5, kg, 10/30/20 8:28:00 EDT, Dry Weight Start Date: 11/27/20 Status: Ordered ProAir HFA 90 mcg/inh inhalation aerosol 2 puffs, Inhalation, Every 4 hours, PRN as needed for wheezing, # 8.5 Gm, 0 Refills, Maintenance, 11/16/20 8:39:00 EDT, Aerosol, [facility]/pharmacy #[id number], Partial fill upon patient [...] 1 Refills, Maintenance, 10/30/20 8:45:00 EDT, Tablet, [facility]/pharmacy #[id number], Partial fill upon patient reques... Start Date: 10/30/20 Status: Ordered traZODone 150 mg oral tablet 1 tablet = 150 mg, By Mouth, Daily at bedtime, dose increase, # 90 tablet, 1 Refills, Maintenance, 11/03/20 13:28:00 EDT, Tablet, [facility]/pharmacy #[id number], Partial fill upon patient [...]
--- OUTSIDE RECORDS SUMMARY | 2022-12-30 08:13 | XMS_ITS | Continuity of Care Document ---
Author Name Unknown Organization [facility] Address [address] [place] [address]- Care Team Providers Care Materials Branch Chief Name Role Phone Candis CARDENAS, Kaiden Villalta Primary Care Physician Encounter [place] Date(s): 03/04/22 - 04/03/22 [facility] [address] [place], [place] [address] Allergies, Adverse Reactions, Alerts Substance Reaction [...] 8.5 Gm,0 Refills, Maintenance, 12/22/21 10:40:00 EDT, [facility] #[id number], 2 puffs Inhalation Every 4 hours,PRN: NEEDED FOR WHEEZING/cough/shortness... Start Date: 12/22/21 Status: Ordered albuterol 0.083% inhalation solution 3 mL = 2.5 mg, Inhalation, Every 4 hours, PRN for wheezing/cough/shortness of breath, # 25 each, 0 Refills, Maintenance, 10/14/21 22:10:00 EDT, Solution, [facility] #[id number], Partial fill upon patient request if the prescription is for a sched... Start Date: 10/14/21 Status: Ordered [place] Saline Mist 0.65% nasal spray 2 sprays, Nares, Both, 4 times a day, # 1 each, 0 Refills, Maintenance, 02/04/22 13:32:00 EDT, [facility] #[id number], Partial fill upon patient request if the [...] tablet, 0 Refills, Maintenance, 12/27/21 13:43:00 EDT, [facility] #[id number], 153, cm, 10/08/21 13:23:00 EDT, Height, 113.9, kg, 10/08/21 13:23:00EDT, Dry Weight Start Date: 12/27/21 Status: Ordered clonazePAM 0.5 mg oral tablet 1 tablet = 0.5 mg, By Mouth, 4 times a day, PRN Anxiety, Patient on controlled substance contract. Please do NOT fill until 09/23/2020, # 112 tablet, 0 Refills, Maintenance, 11/18/20 21:02:00 EDT, Tablet, [facility]/pharmacy #[id number], Partial fill upon patient... Start Date: 11/18/20 Status: Ordered diclofenac 1% topical gel = 1 Gm, Topically, 4 times a day, FOR PAIN., # 100 Gm, 1 Refills, [id number], 30, APPLY 1 GM TOPICALLY 4 TIMES A DAY FOR PAIN, 153, cm, 06/07/21 11:07:00 EST, Height, 105, kg, 05/31/21 15:15:00 EST, Dry Weight Start Date: 08/05/21 Status: Ordered Dilaudid 2 mg oral tablet 1 tablet = 2 mg, By Mouth, 2 times a day, PRN Pain , Severe, checked masspat, # 28 tablet, 0 Refills, Maintenance, 03/23/22 22:13:00 EST, Tablet, [facility] #[id number], Partial fill upon patient request if the prescription is for a schedule II o... Start Date: 03/23/22 Status: Ordered Estrace Vaginal Cream 0.1 mg/g = 2 Gm, Vaginally, Daily at bedtime, 2g PV daily at bedtime x 2 weeks, then 1g PV 1-3x per week, # 42.5 Gm, 5 Refills, Maintenance, 11/09/21 11:17:00 EDT, [facility] #[id number], Partial fill upon patient request if the prescription is for a sche... Start Date: 11/09/21 Status: Ordered Estradiol Patch 0.0375 mg/24 hours twice weekly transdermal film, extended release See Instructions, APPLY 1 PATCH TOPICALLY TWICE WEEKLY DIRECTED, # 8 patch, 6 Refills, Maintenance, 03/23/22 16:10:00 EST, [facility] #[id number], 28, APPLY 1 PATCH TOPICALLY TWICE WEEKLY DIRECTED, 153, cm, 01/04/22 13:15:00 EDT, Height, 11... Start Date: 03/23/22 Status: Ordered fluconazole 150 mg oral tablet 1 tablet = 150 mg, By Mouth, Once, PRN vaginal yeast infection, # 1 tablet, 0 Refills, Soft Stop, 03/15/22 10:42:00 EST, Tablet, [facility] #[id number], Partial fill upon patient request if the prescription is for a schedule II opioid drug., 153,... Start Date: 03/15/22 Status: Ordered gabapentin 800 mg oral tablet See Instructions, TAKE 1 TABLET BY MOUTH FOUR TIMES DAILY, # 360 tablet, 0 Refills, [facility] #[id number], 153, cm, 10/08/21 13:23:00 EDT, Height, 113.9, [...] capsule, 1 Refills, Maintenance, 12/08/21 10:10:00 EDT, [facility] #[id number], 153, cm, 10/08/21 13:23:00 EDT, Height, 113.9,kg, [...] 1 Refills, Maintenance, 03/14/22 15:04:00 EST, Tablet, [facility] #[id number], Partial fill upon patient request if the prescription is for a schedule II opioid drug., 153, cm... Start Date: 03/14/22 Status: Ordered meloxicam 15 mg oral tablet 1/2 TO 1 TABLET, By Mouth, Daily, PRN NEEDED FOR MODERATE PAIN, # 30 tablet, 5 Refills, Maintenance, 01/10/22 20:40:00 EDT, [facility] #[id number], 153, cm, 01/04/22 13:15:00 EDT, Height, 113.9, [...] capsule, 0 Refills, Maintenance, 01/16/22 8:28:00 EDT, [facility] #[id number], 153, cm, 01/04/22 13:15:00 EDT, Height, 113.9, kg, 10/08/21 13:23:00 EDT, Dry Weight Start Date: 01/16/22 Status: Ordered ondansetron 4 mg oral tablet 1 tablet, By Mouth, Every 8 hours, PRN NEEDED FOR NAUSEA OR VOMITING, # 30 tablet, 0 Refills, Maintenance, 03/01/22 11:29:00 EST, [facility] #[id number], 153, cm, 01/04/22 13:15:00 EDT, Height, 113.9, kg, 10/08/21 13:23:00 EDT, Dry Weight Start Date: 03/01/22 Status: Ordered oxybutynin 5 mg oral tablet 1 tablet, By Mouth, 3 times a day, # 270 tablet, 1 Refills, 01/10/22 10:29:00 EDT, [facility] #[id number], 153, cm, 01/04/22 13:15:00 EDT, Height, 113.9, [...] 03/14/22 15:10:00 EST, Route to Pharmacy Electronically, [facility] #[id number], Partial fill upon patient request if the... Start Date: 03/14/22 Status: Ordered Problem List Condition Confirmation Course [...] Care Physician Member Role: PCP Address: Address: [address] [place] [address] Adult [place] [address]- Care Team Related Persons Name: RODOLFO SHEIKH Address: home [address] [facility] [address] [place] [address] Name: CHIARA TEE Address: home [address] [place] [address] [address] [place] [address]
--- OUTSIDE RECORDS SUMMARY | 2022-12-30 08:13 | XMS_ITS | Continuity of Care Document ---
Author Name Unknown Organization [facility] Address [address] [place] [address]- Care Team Providers Care Clamp Remover Name Role Phone Candis CARDENAS, Kaiden Villalta Primary Care Physician [facility] [facility] [place] [id number] Date(s): 09/27/21 - 10/27/21 [facility] [address] [place], [place] [address] Allergies, Adverse Reactions, Alerts Substance [...] 8.5 Gm,0 Refills, Maintenance, 09/28/21 16:57:00 T, [facility] #[id number], 2 puffs Inhalation Every 4 hours,PRN: NEEDED FOR WHEEZING/cough/shortness... Start Date: 09/28/21 Status: Ordered albuterol 0.083% inhalation solution 3 mL = 2.5 mg, Inhalation, Every 4 hours, PRN for wheezing/cough/shortness of breath, # 25 each, 0 Refills, Maintenance, 10/14/21 22:10:00 EDT, Solution, [facility] #[id number], Partial fill upon patient request if the prescription is for a sched... Start Date: 10/14/21 Status: Ordered benzonatate 100 mg oral capsule 2 capsule, By Mouth, 3 times a day, PRN NEEDED FOR COUGH, # 30 capsule, 1 Refills, Physician Stop 03/19/22 17:38:00 EST, 02/19/22 16:55:00 EDT, [facility]/pharmacy #[id number], 160, cm, 12/04/20 10:52:00 EDT, Height, 104.6, kg, 12/04/20 10:52:00 EDT, Dry Weight Start Date: 02/19/22 Stop Date: 03/19/22 Status: Ordered benzonatate 100 mg oral capsule 2 capsule, By Mouth, 3 times a day, PRN NEEDED FOR COUGH, # 30 capsule, 1 Refills, Maintenance, 09/29/21 15:56:00 EDT, [facility] #[id number], 153, cm, 08/10/21 11:19:00 EDT, Height, 105, kg,05/31/21 15:15:00 EST, Dry Weight Start Date: 09/29/21 Status: Ordered budesonide 1 mg/2 mL inhalation suspension 2 mL = 1 mg, Neb, 2 times a day, rinse mouth out after use, # 120 mL, 1 Refills, Maintenance, 10/25/21 18:30:00 EDT, Suspension, [facility] #[id number], Partial fill upon patient request if the [...] 0 Refills, Maintenance, 11/18/20 21:02:00 EDT, Tablet, [facility]/pharmacy #[id number], Partial fill upon patient... Start Date: 11/18/20 Status: Ordered diclofenac 1% topical gel = 1 Gm, Topically, 4 times a day, FOR PAIN., # 100 Gm, 1 Refills, [facility], 30, APPLY 1 GM TOPICALLY 4 TIMES A DAY FOR PAIN, 153, cm, 06/07/21 11:07:00 EST, Height, 105, kg, 05/31/21 15:15:00 EST, Dry Weight Start Date: 08/05/21 Status: Ordered Dilaudid 2 mg oral tablet 1 tablet = 2 mg, By Mouth, 2 times a day, PRN Pain , Severe, checked masspat, # 28 tablet, 0 Refills, Maintenance, 10/25/21 21:55:00 EDT, Tablet, [facility] #[id number], Partial fill upon patient request if the prescription is for a schedule II o... Start Date: 10/25/21 Status: Ordered Famotidine 0 Refills, Maintenance, 04/07/19 16:11:00 EST Start Date: 04/07/19 Status: Ordered fluconazole 150 mg oral tablet 1 tablet = 150 mg, By Mouth, Once, # 1 tablet, 0 Refills, Soft Stop, 09/21/21 11:15:00 EDT, Tablet,[facility] #[id number], Partial fill upon patient request if the prescription is for a schedule II opioid drug., 153, cm, 08/10/21 11:19:00 EDT, H... Start Date: 09/21/21 Status: Ordered gabapentin 800 mg oral tablet See Instructions, TAKE 1 TABLET BY MOUTH FOUR TIMES DAILY, # 360 tablet, 0 Refills, [facility] #[id number], 153, cm, 10/08/21 13:23:00 EDT, Height, 113.9, [...] capsule, 1 Refills, Maintenance, 09/28/21 16:58:00 EDT, [facility] #[id number], 153, cm, 08/10/21 11:19:00 EDT, Height, 105, [...] 1 Refills, Maintenance, 07/30/21 12:25:00 EDT, Tablet, [facility] #[id number], Partial fill upon patient request if the prescription is for a schedule II opioid drug... Start Date: 07/30/21 Status: Ordered lidocaine 2% topical gel with applicator 5 mL = 0.1 Gm, Topically, 2 times a day, PRN Pain , Moderate, # 60 mL, 2 Refills, Soft Stop, 09/24/21 16:43:00 EDT, Gel, [facility] #[id number], Partial fill upon patient request if the [...] 10/30/21 18:35:00 EDT, 10/25/21 18:35:00 EDT, Capsule, [facility] #[id number], Partial fill upon patient request if the prescription is for a sched... Start Date: 10/25/21 Stop Date: 10/30/21 Status: Ordered omeprazole 20 mg oral enteric coated capsule 1 capsule, By Mouth, Daily, # 90 capsule, 0 Refills, 09/27/21 14:31:00 EDT, [facility] #[id number], 153, cm, 08/10/21 11:19:00 EDT, Height, 105, kg, 05/31/21 15:15:00 EST, Dry Weight Start Date: 09/27/21 Status: Ordered ondansetron 4 mg oral tablet 1 tablet = 4 mg, By Mouth, Every 8 hours, PRN Nausea & Vomiting, # 30 tablet, 1 Refills, Maintenance, 09/28/21 16:56:00 EDT, [facility] #[id number], 153, cm, 08/10/21 11:19:00 EDT, Height, 105, kg, 05/31/21 15:15:00 EST, Dry Weight Start Date: 09/28/21 Status: Ordered oxybutynin 5 mg oral tablet 1 tablet, By Mouth, 3 times a day, # 270 tablet, 1 Refills, [id number], 153, cm, 08/10/21 11:19:00 EDT, Height, 105, [...] 1 Refills, Maintenance, 07/30/21 12:22:00 EDT, Tablet, [facility] #[id number], Partial fill upon patient request if the [...]
--- OUTSIDE RECORDS SUMMARY | 2022-12-30 08:13 | XMS_ITS | Continuity of Care Document ---
Author Name Unknown Organization [facility] Address [address] [address]- Care Team Providers Care Nursing Assoc Name Role Phone Candis CARDENAS, Kaiden Villalta Primary Care Physician Encounter [facility] [place] Date(s): 11/30/21 - 12/30/21 [facility] and [address] [address]- Allergies, Adverse Reactions, Alerts Substance Reaction Severity [...] 8.5 Gm,0 Refills, Maintenance, 12/22/21 10:40:00 EDT, [facility] #[id number], 2 puffs Inhalation Every 4 hours,PRN: NEEDED FOR WHEEZING/cough/shortness... Start Date: 12/22/21 Status: Ordered albuterol 0.083% inhalation solution 3 mL = 2.5 mg, Inhalation, Every 4 hours, PRN for wheezing/cough/shortness of breath, # 25 each, 0 Refills, Maintenance, 10/14/21 22:10:00 EDT, Solution, [facility] #[id number], Partial fill upon patient request if the prescription is for a sched... Start Date: 10/14/21 Status: Ordered benzonatate 100 mg oral capsule 2 capsule, By Mouth, 3 times a day, PRN NEEDED FOR COUGH, # 30 capsule, 1 Refills, Maintenance, 12/10/22 15:43:00 EDT, [facility] #[id number], 153, cm, 10/08/21 13:23:00 EDT, Height, 113.9, kg, 10/08/21 13:23:00 EDT, Dry Weight Start Date: 12/10/22 Status: Ordered benzonatate 100 mg oral capsule 2 capsule, By Mouth, 3 times a day, PRN NEEDED FOR COUGH, # 30 capsule, 1 Refills, Physician Stop 12/10/22 15:43:00 EDT, 11/10/22 14:46:00 EDT, [facility] #[id number], 153, cm, 10/08/21 13:23:00 EDT, Height, 113.9, kg, 10/08/21 13:23:00 EDT, D... Start Date: 11/10/22 Stop Date: 12/10/22 Status: Ordered buPROPion 150 mg/24 hours (XL) [...] tablet, 0 Refills, Maintenance, 12/27/21 13:43:00 EDT, [facility] #[id number], 153, cm, 10/08/21 13:23:00 EDT, Height, 113.9, kg, 10/08/21 13:23:00EDT, Dry Weight Start Date: 12/27/21 Status: Ordered clonazePAM 0.5 mg oral tablet 1 tablet = 0.5 mg, By Mouth, 4 times a day, PRN Anxiety, Patient on controlled substance contract. Please do NOT fill until 09/23/2020, # 112 tablet, 0 Refills, Maintenance, 11/18/20 21:02:00 EDT, Tablet, [facility]/pharmacy #[id number], Partial fill upon patient... Start Date: 11/18/20 Status: Ordered diclofenac 1% topical gel = 1 Gm, Topically, 4 times a day, FOR PAIN., # 100 Gm, 1 Refills, [id number], 30, APPLY 1 GM TOPICALLY 4 TIMES A DAY FOR PAIN, 153, cm, 06/07/21 11:07:00 EST, Height, 105, kg, 05/31/21 15:15:00 EST, Dry Weight Start Date: 08/05/21 Status: Ordered Dilaudid 2 mg oral tablet 1 tablet = 2 mg, By Mouth, 2 times a day, PRN Pain , Severe, checked masspat, # 28 tablet, 0 Refills, Maintenance, 12/22/21 10:40:00 EDT, Tablet, [facility] #[id number], Partial fill upon patient request if the prescription is for a schedule II o... Start Date: 12/22/21 Status: Ordered Estrace Vaginal Cream 0.1 mg/g = 2 Gm, Vaginally, Daily at bedtime, 2g PV daily at bedtime x 2 weeks, then 1g PV 1-3x per week, # 42.5 Gm, 5 Refills, Maintenance, 11/09/21 11:17:00 EDT, [facility] #[id number], Partial fill upon patient request if the prescription is for a sche... Start Date: 11/09/21 Status: Ordered estradiol 0.0375 mg/24 hours twice weekly transdermal film, extended release See Instructions, 1 patch Topically, change patch twice a week, # 1 pack/packet, 1 Refills, Maintenance, 12/07/21 10:42:00 EDT, [facility] #[id number], Partial fill upon patient request if the prescription is for a schedule II opioid drug., 153,... Start Date: 12/07/21 Status: Ordered gabapentin 800 mg oral tablet See Instructions, TAKE 1 TABLET BY MOUTH FOUR TIMES DAILY, # 360 tablet, 0 Refills, [facility] #[id number], 153, cm, 10/08/21 13:23:00 EDT, Height, 113.9, [...] capsule, 1 Refills, Maintenance, 12/08/21 10:10:00 EDT, [facility] #[id number], 153, cm, 10/08/21 13:23:00 EDT, Height, 113.9,kg, [...] 1 Refills, Maintenance, 07/30/21 12:25:00 EDT, Tablet, [facility] #[id number], Partial fill upon patient request if the prescription is for a schedule II opioid drug... Start Date: 07/30/21 Status: Ordered levothyroxine 0.1 mg oral tablet 1 tablet = 100 mcg, By Mouth, Daily, dose increase, # 90 tablet, 0 Refills, Maintenance, 11/01/21 16:08:00 EDT, [facility] #[id number], Please discontinue 88ug, 153, cm, 10/08/21 13:23:00 [...] 1 Refills, Maintenance, 11/30/21 15:44:00 EDT, Tablet, [facility] #[id number], [place]... Start Date: 11/30/21 Status: Ordered lidocaine 3% topical gel 1 application, Topically, 2 times a day, PRN as needed for pain, to replace 2% topical, # 28.5 Gm, 2 Refills, Acute 03/29/22 14:17:00 EST, 12/28/21 14:17:00 EDT, Gel, [facility] #[id number], Partial fill upon patient request if the prescription i... Start Date: 12/28/21 Stop Date: 03/29/22 Status: Ordered lidocaine 4% topical cream 1 application, Topically, 2 times a day, PRN Pain , Mild, # 30 Gm, 1 Refills, Acute 01/27/22 17:31:00 EDT, 12/28/21 17:31:00 EDT, Cream, [facility] #[id number], Partial fill upon patient requestif the prescription is for a schedule II opioid cedrick... Start Date: 12/28/21 Stop Date: 01/27/22 Status: Ordered meloxicam 15 mg oral tablet 1/2 TO 1 TABLET, By Mouth, Daily, PRN NEEDED FOR MODERATE PAIN, # 30 tablet, 1 Refills, 08/02/229:04:00 EDT, [facility] #[id number], 153, cm, 10/08/21 13:23:00 EDT, Height, 113.9, kg, 10/08/21 13:23:00 EDT, Dry Weight Start Date: 11/16/21 Status: Ordered metroNIDAZOLE 500 mg oral tablet 1 tablet = 500 mg, By Mouth, Every 12 hours, for 7 days, do not drink alcohol, # 14 tablet, 0 Refills, Acute 01/05/22 16:58:00 EDT, 12/29/21 16:58:00 EDT, Tablet, [facility] #[id number], Partialfill upon patient request if the prescription is fo... Start Date: 12/29/21 Stop Date: 01/05/22 Status: Ordered Nebulizer/Compressor See Instructions, # 1 [...] 90 capsule, 0 Refills, 09/27/21 14:31:00 EDT, [facility] #[id number], 153, cm, 08/10/21 11:19:00 EDT, Height, 105, kg, 05/31/21 15:15:00 EST, Dry Weight Start Date: 09/27/21 Status: Ordered ondansetron 4 mg oral tablet 1 tablet = 4 mg, By Mouth, Every 8 hours, PRN Nausea & Vomiting, # 30 tablet, 1 Refills, Maintenance, 11/10/21 14:47:00 EDT, [facility] #[id number], 153, cm, 10/08/21 13:23:00 EDT, Height, 113.9, kg, 10/08/21 13:23:00 EDT, Dry Weight Start Date: 11/10/21 Status: Ordered oxybutynin 5 mg oral tablet 1 tablet, By Mouth, 3 times a day, # 270 tablet, 1 Refills, [facility], 153, cm, 08/10/21 11:19:00 EDT, Height, 105, kg, 05/31/21 15:15:00 EST, Dry Weight Start Date: 09/09/21 Status: Ordered Rapid Antigen home covid swab [...] on: 11/09/21 Sex Care Team Personnel Name: Kaiden Chirinos MD Address: [address] [place] [address] Adult [facility] Pediatric Medicine [address]
--- OUTSIDE RECORDS SUMMARY | 2022-12-30 08:13 | XMS_ITS | Continuity of Care Document ---
Author Name Unknown Organization [facility] Address [address] [place] [address]- Care Team Providers Care Technical Training Specialist Name Role Phone Candis CARDENAS, Kaiden Villalta Primary Care Physician [phone] Encounter [facility] Date(s): 06/29/21 - 07/29/21 [facility] [address] [place], [place] [address] Allergies, Adverse Reactions, Alerts Substance [...] # 8.5 each, 0 Refills, [id number], 20, INHALE 2 PUFFS BY MOUTH EVERY 4 HOURS NEEDED FOR WHEEZING, 160, cm, 03/30/21 10:47:00 EST, Height, 104.6, kg, 12/04/20 10:52:00 EDT, Dry Weight Start Date: 04/28/21 Status: Ordered amitriptyline 10 mg oral tablet 10 mg, 1, tablet, By Mouth, Daily at bedtime, # 90 tablet, Refills 1, Tot. Refills 1, Maintenance, 12/24/20 16:08:00 EDT, Route to Pharmacy Electronically, [facility]/pharmacy #[id number], Partial fill upon patient request if the prescription is for a schedule II... Start Date: 12/24/20 Status: Ordered baclofen 10 mg oral tablet 10 mg, 1, tablet, By Mouth, 3 times a day, PRN, # 30 tablet, Refills 0, Tot. Refills 0, Maintenance, Spasm, 01/31/19 21:47:23 EDT, Route to Pharmacy Electronically, [id number], [facility]/pharmacy #[id number] Start Date: 01/31/19 Stop Date: 02/14/19 Status: Ordered benzonatate 100 mg oral capsule 2 capsule, By Mouth, 3 times a day, PRN NEEDED FOR COUGH, # 30 capsule, 1 Refills, Physician Stop 03/19/22 17:38:00 EST, 02/19/22 16:55:00 EDT, [facility]/pharmacy #[id number], 160, cm, 12/04/20 10:52:00 EDT, Height, 104.6, kg, 12/04/20 10:52:00 EDT, Dry Weight Start Date: 02/19/22 Stop Date: 03/19/22 Status: Ordered benzonatate 100 mg oral capsule 2 capsule, By Mouth, 3 times a day, PRN NEEDED FOR COUGH, # 30 capsule, 1 Refills, Physician Stop 02/19/22 16:55:00 EDT, 02/19/21 16:54:00 EDT, [facility]/pharmacy #[id number], 160, cm, 12/04/20 10:52:00 EDT, Height, 104.6, kg, 12/04/20 10:52:00 EDT, Dry Weight Start Date: 02/19/21 Stop Date: 02/19/22 Status: Ordered clonazePAM 0.5 mg oral tablet 1 tablet = 0.5 mg, By Mouth, 4 times a day, PRN Anxiety, Patient on controlled substance contract. Please do NOT fill until 09/23/2020, # 112 tablet, 0 Refills, Maintenance, 11/18/20 21:02:00 EDT, Tablet, [facility]/pharmacy #[id number], Partial fill upon patient... Start Date: 11/18/20 Status: Ordered Dilaudid 2 mg oral tablet 1 tablet = 2 mg, By Mouth, 2 times a day, PRN Pain , Severe, # 28 tablet, 0 Refills, Maintenance, 07/21/21 12:23:00 EDT, Tablet, [facility] #[id number], Partial fill upon patient request if the prescription is for a schedule II opioid drug., 153,... Start Date: 07/21/21 Status: Ordered Famotidine 0 Refills, Maintenance, 04/07/19 16:11:00 EST Start Date: 04/07/19 Status: Ordered gabapentin 800 mg oral tablet 1 tablet, By Mouth, 4 times a day, # 360 tablet, 1 Refills, [facility], 160, cm, 03/30/21 10:47:00 EST, Height, 104.6, [...] 1 Refills, Maintenance, 06/07/21 19:08:00 EST, Capsule, [facility]/pharmacy #0905, Partial fill upon patient request if the [...] 1 Refills, Maintenance, 05/14/21 15:23:00 EST, Tablet, [facility]/pharmacy #[id number], Partial fill upon patient request if the prescription is for a schedule II opioid drug., 160, c... Start Date: 05/14/21 Status: Ordered omeprazole 20 mg oral enteric coated capsule 1 capsule, By Mouth, Daily, # 90 capsule, 1 Refills, [facility], 160, cm, 03/30/21 10:47:00 EST, Height, 104.6, [...]
--- OUTSIDE RECORDS SUMMARY | 2022-12-30 08:13 | XMS_ITS | Continuity of Care Document ---
Author Name Unknown Organization [facility] Address [address] [place] [address]- Care Team Providers Care Document Processor Name Role Phone Kaiden Chirinos MD Primary Care Physician Encounter [facility] Date(s): 12/10/21 - 12/17/21 [facility] [address] [place], [place] [address] [place] Encounter Diagnosis COVID-19 virus infection(Discharge Diagnosis) - 12/10/21 Attending Physician: Kaiden Chirinos MD Allergies, Adverse [...] 8.5 Gm,0 Refills, Maintenance, 12/08/21 20:52:00 EDT, [facility] #[id number], 2 puffs Inhalation Every 4 hours,PRN: NEEDED FOR WHEEZING/cough/shortness... Start Date: 12/08/21 Status: Ordered albuterol 0.083% inhalation solution 3 mL = 2.5 mg, Inhalation, Every 4 hours, PRN for wheezing/cough/shortness of breath, # 25 each, 0 Refills, Maintenance, 10/14/21 22:10:00 EDT, Solution, [facility] #[id number], Partial fill upon patient request if the prescription is for a sched... Start Date: 10/14/21 Status: Ordered benzonatate 100 mg oral capsule 2 capsule, By Mouth, 3 times a day, PRN NEEDED FOR COUGH, # 30 capsule, 1 Refills, Physician Stop 11/10/22 14:46:00 EDT, 03/19/22 17:38:00 EST, [facility] #[id number], 153, cm, 10/08/21 13:23:00 EDT, Height, 113.9, kg, 10/08/21 13:23:00 EDT, D... Start Date: 03/19/22 Stop Date: 11/10/22 Status: Ordered benzonatate 100 mg oral capsule 2 capsule, By Mouth, 3 times a day, PRN NEEDED FOR COUGH, # 30 capsule, 1 Refills, Physician Stop 12/10/22 15:43:00 EDT, 11/10/22 14:46:00 EDT, [facility] #[id number], 153, cm, 10/08/21 13:23:00 EDT, Height, 113.9, [...] 0 Refills, Maintenance, 11/18/20 21:02:00 EDT, Tablet, [facility]/pharmacy #[id number], Partial fill upon patient... Start Date: 11/18/20 Status: Ordered diclofenac 1% topical gel = 1 Gm, Topically, 4 times a day, FOR PAIN., # 100 Gm, 1 Refills, [facility], 30, APPLY 1 GM TOPICALLY 4 TIMES A DAY FOR PAIN, 153, cm, 06/07/21 11:07:00 EST, Height, 105, kg, 05/31/21 15:15:00 EST, Dry Weight Start Date: 08/05/21 Status: Ordered Dilaudid 2 mg oral tablet 1 tablet = 2 mg, By Mouth, 2 times a day, PRN Pain , Severe, checked masspat, # 28 tablet, 0 Refills, Maintenance, 12/07/21 13:30:00 EDT, Tablet, [facility] #[id number], Partial fill upon patient request if the prescription is for a schedule II o... Start Date: 12/07/21 Status: Ordered Estrace Vaginal Cream 0.1 mg/g = 2 Gm, Vaginally, Daily at bedtime, 2g PV daily at bedtime x 2 weeks, then 1g PV 1-3x per week, # 42.5 Gm, 5 Refills, Maintenance, 11/09/21 11:17:00 EDT, [facility] #[id number], Partial fill upon patient request if the prescription is for a sche... Start Date: 11/09/21 Status: Ordered estradiol 0.0375 mg/24 hours twice weekly transdermal film, extended release See Instructions, 1 patch Topically, change patch twice a week, # 1 pack/packet, 1 Refills, Maintenance, 12/07/21 10:42:00 EDT, [facility] #[id number], Partial fill upon patient request if the prescription is for a schedule II opioid drug., 153,... Start Date: 12/07/21 Status: Ordered gabapentin 800 mg oral tablet See Instructions, TAKE 1 TABLET BY MOUTH FOUR TIMES DAILY, # 360 tablet, 0 Refills, [facility] #[id number], 153, cm, 10/08/21 13:23:00 EDT, Height, 113.9, [...] capsule, 1 Refills, Maintenance, 12/08/21 10:10:00 EDT, [facility] #[id number], 153, cm, 10/08/21 13:23:00 EDT, Height, 113.9,kg, [...] 1 Refills, Maintenance, 07/30/21 12:25:00 EDT, Tablet, [facility] #[id number], Partial fill upon patient request if the prescription is for a schedule II opioid drug... Start Date: 07/30/21 Status: Ordered levothyroxine 0.1 mg oral tablet 1 tablet = 100 mcg, By Mouth, Daily, dose increase, # 90 tablet, 0 Refills, Maintenance, 11/01/21 16:08:00 EDT, [facility] #[id number], Please discontinue 88ug, 153, cm, 10/08/21 13:23:00 [...] 1 Refills, Maintenance, 11/30/21 15:44:00 EDT, Tablet, [facility] #[id number], [place]... Start Date: 11/30/21 Status: Ordered lidocaine 2% topical gel with applicator 5 mL = 0.1 Gm, Topically, 2 times a day, PRN Pain , Moderate, # 60 mL, 2 Refills, Soft Stop, 09/24/21 16:43:00 EDT, Gel, [facility] #[id number], Partial fill upon patient request if the prescription is for a schedule II opioid drug., 153, cm, 04... Start Date: 09/24/21 Status: Ordered meloxicam 15 mg oral tablet 1/2 TO 1 TABLET, By Mouth, Daily, PRN NEEDED FOR MODERATE PAIN, # 30 tablet, 1 Refills, 229:04:00 EDT, [facility] #[id number], 153, cm, 10/08/21 13:23:00 EDT, Height, 113.9, [...] 90 capsule, 0 Refills, 09/27/21 14:31:00 EDT, [facility] #[id number], 153, cm, 08/10/21 11:19:00 EDT, Height, 105, kg, 05/31/21 15:15:00 EST, Dry Weight Start Date: 09/27/21 Status: Ordered ondansetron 4 mg oral tablet 1 tablet = 4 mg, By Mouth, Every 8 hours, PRN Nausea & Vomiting, # 30 tablet, 1 Refills, Maintenance, 11/10/21 14:47:00 EDT, [facility] #[id number], 153, cm, 10/08/21 13:23:00 EDT, Height, 113.9, kg, 10/08/21 13:23:00 EDT, Dry Weight Start Date: 11/10/21 Status: Ordered oxybutynin 5 mg oral tablet 1 tablet, By Mouth, 3 times a day, # 270 tablet, 1 Refills, [id number], 153, cm, 08/10/21 11:19:00 EDT, Height, 105, [...] Severe obesity(Confirmed) Active 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
--- OUTSIDE RECORDS SUMMARY | 2022-12-30 08:13 | XMS_ITS | Continuity of Care Document ---
Author Name Unknown Organization [facility] Address [address] [place] [address]- Care Team Providers Care Assistant Cross Country Coach Name Role Phone Kaiden Chirinos MD Primary Care Physician [place] [facility] [place](s): 06/07/21 - 06/14/21 [facility] [address] [place] [place] [address] Encounter Diagnosis Pain in right buchanan(Discharge Diagnosis) - 06/07/21 Cervical muscle strain(Discharge Diagnosis) - 06/07/21 Left knee pain(Discharge Diagnosis) - 06/07/21 Right ankle pain(Discharge Diagnosis) - 06/07/21 Attending Physician: Kaiden Chirinos MD Allergies, Adverse [...] FOR WHEEZING, # 8.5 each, 0 Refills, [facility] 585[facility], 20, INHALE 2 PUFFS BY MOUTH EVERY 4 HOURS NEEDED FOR WHEEZING, 160, cm, 03/30/21 10:47:00 EST, Height, 104.6, kg, 12/04/20 10:52:00 EDT, Dry Weight Start Date: 04/28/21 Status: Ordered amitriptyline 10 mg oral tablet 10 mg, 1, tablet, By Mouth, Daily at bedtime, # 90 tablet, Refills 1, Tot. Refills 1, Maintenance, 12/24/20 16:08:00 EDT, Route to Pharmacy Electronically, [facility]/pharmacy #[id number], Partial fill upon patient request if the prescription is for a schedule II... Start Date: 12/24/20 Status: Ordered baclofen 10 mg oral tablet 10 mg, 1, tablet, By Mouth, 3 times a day, PRN, # 30 tablet, Refills 0, Tot. Refills 0, Maintenance, Spasm, 01/31/19 21:47:23 EDT, Route to Pharmacy Electronically, [id number], [facility]/pharmacy #[id number] Start Date: 01/31/19 Stop Date: 02/14/19 Status: Ordered benzonatate 100 mg oral capsule 2 capsule, By Mouth, 3 times a day, PRN NEEDED FOR COUGH, # 30 capsule, 1 Refills, Physician Stop 03/19/22 17:38:00 EST, 02/19/22 16:55:00 EDT, [facility]/pharmacy #[id number], 160, cm, 12/04/20 10:52:00 EDT, Height, 104.6, kg, 12/04/20 10:52:00 EDT, Dry Weight Start Date: 02/19/22 Stop Date: 03/19/22 Status: Ordered benzonatate 100 mg oral capsule 2 capsule, By Mouth, 3 times a day, PRN NEEDED FOR COUGH, # 30 capsule, 1 Refills, Physician Stop 02/19/22 16:55:00 EDT, 02/19/21 16:54:00 EDT, [facility]/pharmacy #[id number], 160, cm, 12/04/20 10:52:00 EDT, Height, 104.6, kg, 12/04/20 10:52:00 EDT, Dry Weight Start Date: 02/19/21 Stop Date: 02/19/22 Status: Ordered clonazePAM 0.5 mg oral tablet 1 tablet = 0.5 mg, By Mouth, 4 times a day, PRN Anxiety, Patient on controlled substance contract. Please do NOT fill until 09/23/2020, # 112 tablet, 0 Refills, Maintenance, 11/18/20 21:02:00 EDT, Tablet, [facility]/pharmacy #[id number], Partial fill upon patient... Start Date: 11/18/20 Status: Ordered Dilaudid 2 mg oral tablet 1 tablet = 2 mg, By Mouth, Every 8 hours, PRN Pain , Severe, dose increase, # 28 tablet, 0 Refills,Acute 06/24/21 17:15:00 EST, 06/10/21 17:12:00 EST, Tablet, [facility] #[id number], Partial fill upon patient request if the prescription is for a schedule... Start Date: 06/10/21 Stop Date: 06/24/21 Status: Ordered Famotidine 0 Refills, Maintenance, 04/07/19 16:11:00 EST Start Date: 04/07/19 Status: Ordered gabapentin 800 mg oral tablet 1 tablet, By Mouth, 4 times a day, # 360 tablet, 1 Refills, [facility] 0[facility]18, 160, cm, 03/30/21 10:47:00 EST, Height, 104.6, [...] 1 Refills, Maintenance, 05/14/21 15:23:00 EST, Tablet, [facility]/pharmacy #[id number], Partial fill upon patient request if the prescription is for a schedule II opioid drug., 160, c... Start Date: 05/14/21 Status: Ordered omeprazole 20 mg oral enteric coated capsule 1 capsule, By Mouth, Daily, # 90 capsule, 1 Refills, [facility] 07705, 160, cm, 03/30/21 10:47:00 EST, Height, 104.6, kg, 12/04/20 10:52:00 EDT, Dry Weight Start Date: 03/31/21 Status: Ordered ondansetron 4 mg oral tablet See Instructions, TAKE 1 TABLET BY MOUTH EVERY 8 HOURS NEEDED FOR NAUSEA AND VOMITING, # 15 tablet, 1 Refills, Physician Stop 07/12/21 15:23:00 EDT, 05/14/21 15:22:00 EST, [facility]/pharmacy #[id number], 160,cm, 03/30/21 10:47:00 EST, Height, 104.6, kg, 12/04... Start Date: 05/14/21 Stop Date: 07/12/21 Status: Ordered oxybutynin 5 mg oral tablet 1 tablet, By Mouth, 3 times a day, dose increase, # 270 tablet, 1 Refills, Maintenance, 03/19/21 17:40:00 EST, [facility]/pharmacy #[id number], 160, cm, 12/04/20 10:52:00 EDT, Height, 104.6, kg, 12/04/20 10:52:00EDT, Dry Weight Start Date: 03/19/21 Status: Ordered Qvar Redihaler 40 mcg/inh inhalation aerosol = 40 mcg, Inhalation, 2 times a day, to replace flovent rinse mouth and throat after use, # 1 each,1 Refills, Maintenance, 03/30/21 20:35:00 EST, [facility]/pharmacy #[id number], Partial fill upon [...] 1 Refills, Maintenance, 10/30/20 8:45:00 EDT, Tablet, [facility]/pharmacy #[id number], Partial fill upon patient reques... Start Date: 10/30/20 Status: Ordered traZODone 150 mg oral tablet 1.5 tablet = 225 mg, By Mouth, Daily at bedtime, dose increase, # 135 tablet, 1 Refills, Maintenance, 04/06/21 12:26:00 EST, Tablet, [facility]/pharmacy #[id number], Partial fill upon [...] 1 Refills, Maintenance, 06/11/21 14:11:00 EST, Gel, [facility]/pharmacy #[id number], Partial fill upon [...] Dates Health Status Cl inical Service Informant Cervical muscle strain Discharge Diagnosis 06/07/21 Left knee pain Discharge Diagnosis 06/07/21 Right ankle pain Discharge Diagnosis 06/07/21 Pain in right buchanan Discharge Diagnosis 06/07/21 Vital Signs Most recent to oldest [Reference Range]: 1 Height 153 cm (06/07/21 11:07 AM) Oxygen Saturation [94-100 %] 98 % (06/07/21 11:07 AM) Pulse Rate [55-90 bpm] 71 bpm (06/07/21 11:07 AM) Blood Pressure [90-138/55-84 mm Hg] 127/ 93mm Hg (06/07/21 11:07 AM) Temperature [96.8-100.4 DegF] 98.0 DegF (06/07/21 11:07 AM) Mode of Delivery (Oxygen) Room air (06/07/21 11:07 AM) Blood pressure sites Arm, right (06/07/21 11:07 AM) Social History Social History Type Response Tobacco Other: 25 YRS-QUIT. Sex
--- OUTSIDE RECORDS SUMMARY | 2022-12-30 08:13 | XMS_ITS | Continuity of Care Document ---
Author Name Unknown Organization [facility] Address [address] [place] [address]- Care Team Providers Care Synthetic Department Supervisor Name Role Phone Candis CARDENAS, Kaiden Villalta Primary Care Physician [phone] Encounter [facility] [place] Date(s): 06/13/22 - 07/13/22 [facility] [address] [place], [place] [address] Allergies, Adverse [...] 8.5 Gm,0 Refills, Maintenance, 12/22/21 10:40:00 EDT, [facility] #[id number], 2 puffs Inhalation Every 4 hours,PRN: NEEDED FOR WHEEZING/cough/shortness... Start Date: 12/22/21 Status: Ordered albuterol 0.083% inhalation solution 3 mL = 2.5 mg, Inhalation, Every 4 hours, PRN for wheezing/cough/shortness of breath, # 25 each, 0 Refills, Maintenance, 06/29/22 13:08:00 EDT, Solution, [facility] #[id number], Partial fill upon patient request if the prescription is for a sched... Start Date: 06/29/22 Status: Ordered [place] Saline Mist 0.65% nasal spray 2 sprays, Nares, Both, 4 times a day, # 1 each, 0 Refills, Maintenance, 02/04/22 13:32:00 EDT, [facility] #[id number], Partial fill upon patient request if the [...] tablet, 0 Refills, Maintenance, 12/27/21 13:43:00 EDT, [facility] #[id number], 153, cm, 10/08/21 13:23:00 EDT, Height, 113.9, kg, 10/08/21 13:23:00EDT, Dry Weight Start Date: 12/27/21 Status: Ordered chlorhexidine 2% topical liquid See Instructions, 1 application to bilateral forearms twice weekly, # 120 mL, 3 Refills, Soft Stop,06/17/22 11:06:00 EST, Liquid, [facility] #[id number], Partial fill upon patient request if the prescription is for a schedule II opioid drug., 1... Start Date: 06/17/22 Status: Ordered chlorhexidine 4% topical soap See Instructions, apply topically twice weekly to skin on forearms, # 120 mL, 2 Refills, Soft Stop,06/17/22 16:03:00 EST, [facility] #[id number], Partial fill upon patient request if the prescription is for a schedule II opioid drug., apply topi... Start Date: 06/17/22 Status: Ordered clonazePAM 0.5 mg oral tablet 1 tablet = 0.5 mg, By Mouth, 4 times a day, PRN Anxiety, Patient on controlled substance contract. Please do NOT fill until 09/23/2020, # 112 tablet, 0 Refills, Maintenance, 11/18/20 21:02:00 EDT, Tablet, [facility]/pharmacy #[id number], Partial fill upon patient... Start Date: 11/18/20 Status: Ordered diclofenac 1% topical gel = 1 Gm, Topically, 4 times a day, FOR PAIN., # 100 Gm, 1 Refills, [id number], 30, APPLY 1 GM TOPICALLY 4 TIMES A DAY FOR PAIN, 153, cm, 06/07/21 11:07:00 EST, Height, 105, kg, 05/31/21 15:15:00 EST, Dry Weight Start Date: 08/05/21 Status: Ordered Dilaudid 2 mg oral tablet 1 tablet = 2 mg, By Mouth, 2 times a day, PRN Pain , Severe, checked masspat, # 56 tablet, 0 Refills, Maintenance, 06/27/22 21:04:00 EDT, Tablet, [facility] #[id number], Partial fill upon patient request if the prescription is for a schedule II o... Start Date: 06/27/22 Status: Ordered Estrace Vaginal Cream 0.1 mg/g = 2 Gm, Vaginally, Daily at bedtime, 2g PV daily at bedtime x 2 weeks, then 1g PV 1-3x per week, # 42.5 Gm, 5 Refills, Maintenance, 11/09/21 11:17:00 EDT, [facility] #[id number], Partial fill upon patient request if the prescription is for a sche... Start Date: 11/09/21 Status: Ordered Estradiol Patch 0.0375 mg/24 hours twice weekly transdermal film, extended release See Instructions, APPLY 1 PATCH TOPICALLY TWICE WEEKLY DIRECTED, # 8 patch, 6 Refills, Maintenance, 03/23/22 16:10:00 EST, [facility] #[id number], 28, APPLY 1 PATCH TOPICALLY TWICE WEEKLY DIRECTED, 153, cm, 01/04/22 13:15:00 EDT, Height, 11... Start Date: 03/23/22 Status: Ordered fluconazole 150 mg oral tablet 1 tablet = 150 mg, By Mouth, Once, PRN vaginal yeast infection, # 1 tablet, 0 Refills, Soft Stop, 03/15/22 10:42:00 EST, Tablet, [facility] #[id number], Partial fill upon patient request if the prescription is for a schedule II opioid drug., 153,... Start Date: 03/15/22 Status: Ordered fluticasone 50 mcg/inh nasal spray See Instructions, SHAKE LIQUID AND USE 1 SPRAY IN EACH NOSTRIL TWICE DAILY, # 16 Gm, 1 Refills, Maintenance, 05/18/22 13:57:00 EST, [facility] #[id number], 30, SHAKE LIQUID AND USE 1 SPRAY IN EACH NOSTRIL TWICE DAILY, 153, cm, 04/25/22 16:23:00 E... Start Date: 05/18/22 Status: Ordered gabapentin 800 mg oral tablet 1 tablet, By Mouth, 4 times a day, # 360 tablet, 1 Refills, Maintenance, 04/19/22 12:59:00 EST, [facility] #[id number], 153, cm, 01/04/22 13:15:00 EDT, Height, 113.9, [...] capsule, 1 Refills, Maintenance, 05/20/22 12:57:00 EST, [facility] #[id number], 153, cm, 04/25/22 16:23:00 EST, Height, 109, [...] 1 Refills, Maintenance, 04/28/22 13:51:00 EST, Tablet, [facility] #[id number], Partial fill upon patient request if the prescription is for a schedule II opioid drug., 153, cm... Start Date: 04/28/22 Status: Ordered lidocaine 4% topical cream 1 application, Topically, 3 times a day, PRN Pain , Mild, # 30 Gm, 1 Refills, Maintenance, 06/24/2315:24:00 EST, Cream, [facility] #[id number], Partial fill upon patient request if the prescription is for a schedule II opioid drug., 1 applicatio... Start Date: 06/23/22 Status: Ordered meloxicam 15 mg oral tablet 1/2 TO 1 TABLET, By Mouth, Daily, PRN NEEDED FOR MODERATE PAIN, # 30 tablet, 5 Refills, Maintenance, 01/10/22 20:40:00 EDT, [facility] #[id number], 153, cm, 01/04/22 13:15:00 EDT, Height, 113.9, [...] capsule, 1 Refills, Maintenance, 04/19/22 12:41:00 EST, [facility] #[id number], 153, cm, 01/04/22 13:15:00 EDT, Height, 113.9, kg, 10/08/21 13:23:00 EDT, Dry Weight Start Date: 04/19/22 Status: Ordered ondansetron 4 mg oral tablet 1 tablet, By Mouth, Every 8 hours, PRN NEEDED FOR NAUSEA OR VOMITING, # 30 tablet, 1 Refills, Maintenance, 06/14/22 10:29:00 EST, [facility] #[id number], 153, cm, 06/08/22 9:37:00 EST, Height, 109, kg, 04/25/22 15:54:00 EST, Dry Weight Start Date: 06/14/22 Status: Ordered oxybutynin 5 mg oral tablet 1 tablet, By Mouth, 3 times a day, # 270 tablet, 0 Refills, Maintenance, 07/05/22 8:13:00 EDT, [facility] #[id number], 153, cm, 06/17/22 10:53:00 EST, Height, 109, [...] 07/01/22 14:21:00 EDT, Route to Pharmacy Electronically, [facility] #[id number], Partial fill upon patient request if the... Start Date: 07/01/22 Status: Ordered triamcinolone 0.1% topical cream 1 application, Topically, 3 times a day, PRN arm rash, # 30 Gm, 1 Refills, Acute 06/08/23 9:53:00 EST, 06/08/22 9:53:00 EST, Cream, [facility] #[id number], Partial fill upon patient request if the [...] Care Physician Member Role: PCP Address: Address: [address] [place] [address] Adult [place] [address]- Care Team Related Persons Name: AGUILAR RODOLFO Address: home [address] [facility] [address] [place] [address] Name: CHIARA TEE Address: home [address] [place] [address] [address] [place] [address]
--- OUTSIDE RECORDS SUMMARY | 2022-12-30 08:13 | XMS_ITS | Continuity of Care Document ---
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 Start Date: 12/22/21 Status: Ordered albuterol 0.083% inhalation solution 3 mL = 2.5 mg, Inhalation, Every 4 hours, PRN for wheezing/cough/shortness of breath, # 25 each, 0 Refills, Maintenance, 10/14/21 22:10:00 EDT, Solution, [facility] #[id number], Partial fill upon patient request if the prescription is for a sched... Start Date: 10/14/21 Status: Ordered [place] Saline Mist 0.65% nasal spray 2 sprays, Nares, Both, 4 times a day, # 1 each, 0 Refills, Maintenance, 02/04/22 13:32:00 EDT, [facility] #[id number], Partial fill upon patient request if the [...] tablet, 0 Refills, Maintenance, 12/27/21 13:43:00 EDT, [facility] #[id number], 153, cm, 10/08/21 13:23:00 EDT, Height, 113.9, kg, 10/08/21 13:23:00EDT, Dry Weight Start Date: 12/27/21 Status: Ordered clonazePAM 0.5 mg oral tablet 1 tablet = 0.5 mg, By Mouth, 4 times a day, PRN Anxiety, Patient on controlled substance contract. Please do NOT fill until 09/23/2020, # 112 tablet, 0 Refills, Maintenance, 11/18/20 21:02:00 EDT, Tablet, [facility]/pharmacy #[id number], Partial fill upon patient... Start Date: 11/18/20 Status: Ordered diclofenac 1% topical gel = 1 Gm, Topically, 4 times a day, FOR PAIN., # 100 Gm, 1 Refills, [facility], 30, APPLY 1 GM TOPICALLY 4 TIMES A DAY FOR PAIN, 153, cm, 06/07/21 11:07:00 EST, Height, 105, kg, 05/31/21 15:15:00 EST, Dry Weight Start Date: 08/05/21 Status: Ordered Dilaudid 2 mg oral tablet 1 tablet = 2 mg, By Mouth, 2 times a day, PRN Pain , Severe, checked masspat, # 28 tablet, 0 Refills, Maintenance, 03/04/22 14:11:00 EST, Tablet, [facility] #[id number], Partial fill upon patient request if the prescription is for a schedule II o... Start Date: 03/04/22 Status: Ordered Estrace Vaginal Cream 0.1 mg/g = 2 Gm, Vaginally, Daily at bedtime, 2g PV daily at bedtime x 2 weeks, then 1g PV 1-3x per week, # 42.5 Gm, 5 Refills, Maintenance, 11/09/21 11:17:00 EDT, [facility] #[id number], Partial fill upon patient request if the prescription is for a sche... Start Date: 11/09/21 Status: Ordered Estradiol Patch 0.0375 mg/24 hours twice weekly transdermal film, extended release See Instructions, APPLY 1 PATCH TOPICALLY TWICE WEEKLY DIRECTED, # 8 patch, 0 Refills, Maintenance, 02/26/22 10:23:00 EST, [facility] #[id number], 28, APPLY 1 PATCH TOPICALLY TWICE WEEKLY DIRECTED, 153, cm, 01/04/22 13:15:00 EDT, Height, 11... Start Date: 02/26/22 Status: Ordered fluconazole 150 mg oral tablet 1 tablet = 150 mg, By Mouth, Once, # 1 tablet, 0 Refills, Soft Stop, 02/14/22 14:41:00 EDT, Tablet,[facility] #[id number], Partial fill upon patient request if the prescription is for a schedule II opioid drug., 153, cm, 01/04/22 13:15:00 EDT, H... Start Date: 02/14/22 Status: Ordered gabapentin 800 mg oral tablet See Instructions, TAKE 1 TABLET BY MOUTH FOUR TIMES DAILY, # 360 tablet, 0 Refills, [facility] #[id number], 153, cm, 10/08/21 13:23:00 EDT, Height, 113.9, [...] capsule, 1 Refills, Maintenance, 12/08/21 10:10:00 EDT, [facility] #[id number], 153, cm, 10/08/21 13:23:00 EDT, Height, 113.9,kg, [...] tablet, 0 Refills, Maintenance, 01/20/22 17:46:00 EDT, [facility] #[id number], 153, cm, 01/04/22 13:15:00 ED... Start Date: 01/20/22 Status: Ordered lidocaine 3% topical gel 1 application, Topically, 2 times a day, PRN as needed for pain, to replace 2% topical, # 28.5 Gm, 2 Refills, Acute 03/29/22 14:17:00 EST, 12/28/21 14:17:00 EDT, Gel, [facility] #[id number], Partial fill upon patient request if the prescription i... Start Date: 12/28/21 Stop Date: 03/29/22 Status: Ordered meloxicam 15 mg oral tablet 1/2 TO 1 TABLET, By Mouth, Daily, PRN NEEDED FOR MODERATE PAIN, # 30 tablet, 5 Refills, Maintenance, 01/10/22 20:40:00 EDT, [facility] #[id number], 153, cm, 01/04/22 13:15:00 EDT, Height, 113.9, [...] capsule, 0 Refills, Maintenance, 01/16/22 8:28:00 EDT, [facility] #[id number], 153, cm, 01/04/22 13:15:00 EDT, Height, 113.9, kg, 10/08/21 13:23:00 EDT, Dry Weight Start Date: 01/16/22 Status: Ordered ondansetron 4 mg oral tablet 1 tablet, By Mouth, Every 8 hours, PRN NEEDED FOR NAUSEA OR VOMITING, # 30 tablet, 0 Refills, Maintenance, 03/01/22 11:29:00 EST, [facility] #[id number], 153, cm, 01/04/22 13:15:00 EDT, Height, 113.9, kg, 10/08/21 13:23:00 EDT, Dry Weight Start Date: 03/01/22 Status: Ordered oxybutynin 5 mg oral tablet 1 tablet, By Mouth, 3 times a day, # 270 tablet, 1 Refills, 01/10/22 10:29:00 EDT, [facility] #[id number], 153, cm, 01/04/22 13:15:00 EDT, Height, 113.9, [...] 02/18/22 16:37:00 EDT, Route to Pharmacy Electronically, [facility] #[id number], Partial fill upon patient request if the [...] Team Personnel Name: Kaiden Chirinos MD Position: [facility] Primary Care Physician Member Role: PCP Address: Address: [address] [place] [address] Adult [place] [address]- Care Team Related Persons Name: RODOLFO SHEIKH Address: home [address] [facility] [address] [place] [address] Name: CHIARA TEE Address: home [address] [place] [address] [place] [id number]
--- OUTSIDE RECORDS SUMMARY | 2022-12-30 08:13 | XMS_ITS | Continuity of Care Document ---
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 Start Date: 12/22/21 Status: Ordered albuterol 0.083% inhalation solution 3 mL = 2.5 mg, Inhalation, Every 4 hours, PRN for wheezing/cough/shortness of breath, # 25 each, 0 Refills, Maintenance, 06/29/22 13:08:00 EDT, Solution, [facility] #[id number], Partial fill upon patient request if the prescription is for a sched... Start Date: 06/29/22 Status: Ordered [place] Saline Mist 0.65% nasal spray 2 sprays, Nares, Both, 4 times a day, # 1 each, 0 Refills, Maintenance, 02/04/22 13:32:00 EDT, [facility] #[id number], Partial fill upon patient request if the [...] tablet, 0 Refills, Maintenance, 12/27/21 13:43:00 EDT, [facility] #[id number], 153, cm, 10/08/21 13:23:00 EDT, Height, 113.9, kg, 10/08/21 13:23:00EDT, Dry Weight Start Date: 12/27/21 Status: Ordered chlorhexidine 2% topical liquid See Instructions, 1 application to bilateral forearms twice weekly, # 120 mL, 3 Refills, Soft Stop,06/17/22 11:06:00 EST, Liquid, [facility] #[id number], Partial fill upon patient request if the prescription is for a schedule II opioid drug., 1... Start Date: 06/17/22 Status: Ordered chlorhexidine 4% topical soap See Instructions, apply topically twice weekly to skin on forearms, # 120 mL, 2 Refills, Soft Stop,06/17/22 16:03:00 EST, [facility] #[id number], Partial fill upon patient request if the prescription is for a schedule II opioid drug., apply topi... Start Date: 06/17/22 Status: Ordered clonazePAM 0.5 mg oral tablet 1 tablet = 0.5 mg, By Mouth, 4 times a day, PRN Anxiety, Patient on controlled substance contract. Please do NOT fill until 09/23/2020, # 112 tablet, 0 Refills, Maintenance, 11/18/20 21:02:00 EDT, Tablet, [facility]/pharmacy #[id number], Partial fill upon patient... Start Date: 11/18/20 Status: Ordered diclofenac 1% topical gel = 1 Gm, Topically, 4 times a day, FOR PAIN., # 100 Gm, 1 Refills, [facility], 30, APPLY 1 GM TOPICALLY 4 TIMES [...] 0 Refills, Maintenance, 12/27/22 23:09:00 EDT, Tablet, [facility] #[id number], Partial fill upon patient request if the prescription is fo... Start Date: 12/27/22 Status: Ordered Estrace Vaginal Cream 0.1 mg/g = 2 Gm, Vaginally, Daily at bedtime, 2g PV daily at bedtime x 2 weeks, then 1g PV 1-3x per week, # 42.5 Gm, 5 Refills, Maintenance, 11/09/21 11:17:00 EDT, [facility] #[id number], Partial fill upon patient request if the prescription is for a sche... Start Date: 11/09/21 Status: Ordered Estradiol Patch 0.0375 mg/24 hours twice weekly transdermal film, extended release See Instructions, APPLY 1 PATCH TOPICALLY TWICE WEEKLY DIRECTED, # 8 patch, 1 Refills, Maintenance, 12/28/22 13:34:00 EDT, [facility] #[id number], 28, APPLY 1 PATCH TOPICALLY TWICE WEEKLY DIRECTED, 154, cm, 10/29/22 14:42:00 EDT, Height, 10... Start Date: 12/28/22 Status: Ordered fluconazole 150 mg oral tablet 1 tablet = 150 mg, By Mouth, Once, PRN vaginal yeast infection, repeat dose in 72 hours if symptomsnot resolved, # 2 tablet, 0 Refills, Soft Stop, 11/08/22 15:31:00 EDT, Tablet, [facility]#[id number], Partial fill upon patient request if the pr... Start Date: 11/08/22 Status: Ordered fluticasone 50 mcg/inh nasal spray See Instructions, SHAKE LIQUID AND USE 1 SPRAY IN EACH NOSTRIL TWICE DAILY, # 16 Gm, 1 Refills, Maintenance, 05/18/22 13:57:00 EST, [facility] #[id number], 30, SHAKE LIQUID AND USE 1 SPRAY IN EACH NOSTRIL TWICE DAILY, 153, cm, 04/25/22 16:23:00 E... Start Date: 05/18/22 Status: Ordered gabapentin 800 mg oral tablet 1 tablet, By Mouth, 4 times a day, # 360 tablet, 1 Refills, Maintenance, 10/25/22 21:47:00 EDT, [facility] #[id number], 153, cm, 06/17/22 10:53:00 EST, Height, 109, [...] capsule, 1 Refills, Maintenance, 11/15/22 11:13:00 EDT, [facility] #[id number], 154, cm, 10/29/22 14:42:00 EDT, Height, 109, [...] 1 Refills, Maintenance, 04/28/22 13:51:00 EST, Tablet, [facility] #[id number], Partial fill upon patient request if the prescription is for a schedule II opioid drug., 153, cm... Start Date: 04/28/22 Status: Ordered lidocaine 4% topical cream 1 application, Topically, 3 times a day, PRN Pain , Mild, # 30 Gm, 1 Refills, Maintenance, 06/24/2315:24:00 EST, Cream, [facility] #[id number], Partial fill upon patient request if the prescription is for a schedule II opioid drug., 1 applicatio... Start Date: 06/23/22 Status: Ordered meloxicam 15 mg oral tablet 1/2 TO 1 TABLET, By Mouth, Daily, PRN NEEDED FOR MODERATE PAIN, # 30 tablet, 5 Refills, Maintenance, 01/10/22 20:40:00 EDT, [facility] #[id number], 153, cm, 01/04/22 13:15:00 EDT, Height, 113.9, [...] capsule, 1 Refills, Maintenance, 07/26/22 14:24:00 EDT, [facility] #[id number], 153, cm, 06/17/22 10:53:00 EST, Height, 109, kg, 06/17/22 10:53:00 EST, Dry Weight Start Date: 07/26/22 Status: Ordered ondansetron 4 mg oral tablet 1 tablet, By Mouth, Every 8 hours, PRN NEEDED FOR NAUSEA OR VOMITING, # 30 tablet, 1 Refills, Maintenance, 10/27/22 23:08:00 EDT, [facility] #[id number], 153, cm, 06/17/22 10:53:00 EST, Height, 109, kg, 06/17/22 10:53:00 EST, Dry Weight Start Date: 10/27/22 Status: Ordered oxybutynin 5 mg oral tablet 1 tablet, By Mouth, 3 times a day, # 270 tablet, 1 Refills, Maintenance, 10/04/22 20:44:00 EDT, [facility] #[id number], 153, cm, 06/17/22 10:53:00 EST, Height, 109, [...] 11/18/22 16:07:00 EDT, Route to Pharmacy Electronically, [facility] #[id number], Partial fill upon patient request if the prescrip... Start Date: 11/18/22 Status: Ordered traZODone 50 mg oral tablet 1-2 tablet, By Mouth, Daily, one hour prior to bedtime. dose increase, # 60 tablet, Refills 2, Tot.Refills 2, Maintenance, 07/01/22 14:21:00 EDT, Route to Pharmacy Electronically, [facility] #[id number], Partial fill upon patient request if the... Start Date: 07/01/22 Status: Ordered triamcinolone 0.1% topical cream 1 application, Topically, 3 times a day, PRN arm rash, # 30 Gm, 1 Refills, Acute 06/08/23 9:53:00 EST, 06/08/22 9:53:00 EST, Cream, [facility] #[id number], Partial fill upon patient request if the [...] Primary Care Member Role: PCP Address: Address: [address] [place] [address]- Care Team Related Persons Name: RODOLFO SHEIKH Address: home [address] [facility] [address] [place] [address] Name: CHIARA TEE Address: home [address] [place] [address] [address] [place] [address]
--- OUTSIDE RECORDS SUMMARY | 2022-12-30 08:13 | XMS_ITS | Continuity of Care Document ---
Author Name Unknown Organization 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 [address] [place], [place] [address] Allergies, Adverse Reactions, Alerts Substance [...] 12/24/20 16:08:00 EDT, Route to Pharmacy Electronically, [facility]/pharmacy #[id number], Partial fill upon patient request if the prescription is for a schedule II... Start Date: 12/24/20 Status: Ordered baclofen 10 mg oral tablet 10 mg, 1, tablet, By Mouth, 3 times a day, PRN, # 30 tablet, Refills 0, Tot. Refills 0, Maintenance, Spasm, 01/31/19 21:47:23 EDT, Route to Pharmacy Electronically, [id number], [facility]/pharmacy #[id number] Start Date: 01/31/19 Stop Date: 02/14/19 Status: Ordered benzonatate 100 mg oral capsule 2 capsule, By Mouth, 3 times a day, PRN NEEDED FOR COUGH, # 30 capsule, 1 Refills, Physician Stop 02/19/22 16:55:00 EDT, 02/19/21 16:54:00 EDT, [facility]/pharmacy #[id number], 160, cm, 12/04/20 10:52:00 EDT, Height, 104.6, kg, 12/04/20 10:52:00 EDT, Dry Weight Start Date: 02/19/21 Stop Date: 02/19/22 Status: Ordered clonazePAM 0.5 mg oral tablet 1 tablet = 0.5 mg, By Mouth, 4 times a day, PRN Anxiety, Patient on controlled substance contract. Please do NOT fill until 09/23/2020, # 112 tablet, 0 Refills, Maintenance, 11/18/20 21:02:00 EDT, Tablet, [facility]/pharmacy #[id number], Partial fill upon patient... Start Date: 11/18/20 Status: Ordered Famotidine 0 Refills, Maintenance, 04/07/19 16:11:00 EST Start Date: 04/07/19 Status: Ordered gabapentin 800 mg oral tablet 1 tablet = 800 mg, By Mouth, 4 times a day, # 360 tablet, 1 Refills, Maintenance, 11/09/20 23:47:00EDT, Tablet, [facility]/pharmacy #[id number], Partial fill upon patient request if [...] 1 Refills, Maintenance, 02/25/21 8:28:00 EST, Capsule, [facility]/pharmacy #[id number], Partial fill upon patient request if the [...] 1 Refills, Maintenance, 11/05/20 11:43:00 EDT, Tablet, [facility]/pharmacy #[id number], Partial fill upon patient request if the prescription is for a schedule II opioid drug., 160, cm, 10/30/20 8:2... Start Date: 11/05/20 Status: Ordered meloxicam 15 mg oral tablet 1/2 TO 1 TABLET, By Mouth, Daily, PRN NEEDED FOR MODERATE PAIN, # 30 tablet, 1 Refills, [facility] [id number], 160, cm, 12/04/20 10:52:00 EDT, Height, 104.6, kg, 12/04/20 10:52:00 EDT, Dry Weight Start Date: 01/22/21 Status: Ordered omeprazole 20 mg oral enteric coated capsule 1 capsule, By Mouth, Daily, # 90 capsule, 0 Refills, Maintenance, 01/14/21 13:42:00 EDT, [facility]/pharmacy #[id number], 160, cm, 12/04/20 10:52:00 EDT, Height, 104.6, kg, 12/04/20 10:52:00 EDT, Dry Weight Start Date: 01/14/21 Status: Ordered ondansetron 4 mg oral tablet See Instructions, TAKE 1 TABLET BY MOUTH EVERY 8 HOURS NEEDED FOR NAUSEA AND VOMITING, # 15 tablet, 0 Refills, [id number], 160, cm, 12/04/20 10:52:00 EDT, Height, 104.6, [...] 0 Refills, Maintenance, 11/16/20 8:39:00 EDT, Aerosol, [facility]/pharmacy #[id number], Partial fill upon patient request if [...] 1 Refills, Maintenance, 10/30/20 8:45:00 EDT, Tablet, [facility]/pharmacy #[id number], Partial fill upon patient reques... Start Date: 10/30/20 Status: Ordered traZODone 150 mg oral tablet 1 tablet = 150 mg, By Mouth, Daily at bedtime, dose increase, # 90 tablet, 1 Refills, Maintenance, 11/03/20 13:28:00 EDT, Tablet, [facility]/pharmacy #[id number], Partial fill upon patient request if the prescription is for a schedule II opioid drug., 160, cm, . Start Date: 11/03/20 Status: Ordered Vitamin D3 [...]
--- OUTSIDE RECORDS SUMMARY | 2022-12-30 08:13 | XMS_ITS | Continuity of Care Document ---
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 Start Date: 12/22/21 Status: Ordered albuterol 0.083% inhalation solution 3 mL = 2.5 mg, Inhalation, Every 4 hours, PRN for wheezing/cough/shortness of breath, # 25 each, 0 Refills, Maintenance, 10/14/21 22:10:00 EDT, Solution, [facility] #[id number], Partial fill upon patient request if the prescription is for a sched... Start Date: 10/14/21 Status: Ordered [place] Saline Mist 0.65% nasal spray 2 sprays, Nares, Both, 4 times a day, # 1 each, 0 Refills, Maintenance, 02/04/22 13:32:00 EDT, [facility] #[id number], Partial fill upon patient request if the [...] tablet, 0 Refills, Maintenance, 12/27/21 13:43:00 EDT, [facility] #[id number], 153, cm, 10/08/21 13:23:00 EDT, Height, 113.9, kg, 10/08/21 13:23:00EDT, Dry Weight Start Date: 12/27/21 Status: Ordered clonazePAM 0.5 mg oral tablet 1 tablet = 0.5 mg, By Mouth, 4 times a day, PRN Anxiety, Patient on controlled substance contract. Please do NOT fill until 09/23/2020, # 112 tablet, 0 Refills, Maintenance, 11/18/20 21:02:00 EDT, Tablet, [facility]/pharmacy #[id number], Partial fill upon patient... Start Date: 11/18/20 Status: Ordered diclofenac 1% topical gel = 1 Gm, Topically, 4 times a day, FOR PAIN., # 100 Gm, 1 Refills, [facility], 30, APPLY 1 GM TOPICALLY 4 TIMES A DAY FOR PAIN, 153, cm, 06/07/21 11:07:00 EST, Height, 105, kg, 05/31/21 15:15:00 EST, Dry Weight Start Date: 08/05/21 Status: Ordered Dilaudid 2 mg oral tablet 1 tablet = 2 mg, By Mouth, 2 times a day, PRN Pain , Severe, checked masspat, # 28 tablet, 0 Refills, Maintenance, 03/04/22 14:11:00 EST, Tablet, [facility] #[id number], Partial fill upon patient request if the prescription is for a schedule II o... Start Date: 03/04/22 Status: Ordered Estrace Vaginal Cream 0.1 mg/g = 2 Gm, Vaginally, Daily at bedtime, 2g PV daily at bedtime x 2 weeks, then 1g PV 1-3x per week, # 42.5 Gm, 5 Refills, Maintenance, 11/09/21 11:17:00 EDT, [facility] #[id number], Partial fill upon patient request if the prescription is for a sche... Start Date: 11/09/21 Status: Ordered Estradiol Patch 0.0375 mg/24 hours twice weekly transdermal film, extended release See Instructions, APPLY 1 PATCH TOPICALLY TWICE WEEKLY DIRECTED, # 8 patch, 0 Refills, Maintenance, 02/26/22 10:23:00 EST, [facility] #[id number], 28, APPLY 1 PATCH TOPICALLY TWICE WEEKLY DIRECTED, 153, cm, 01/04/22 13:15:00 EDT, Height, 11... Start Date: 02/26/22 Status: Ordered fluconazole 150 mg oral tablet 1 tablet = 150 mg, By Mouth, Once, # 1 tablet, 0 Refills, Soft Stop, 02/14/22 14:41:00 EDT, Tablet,[facility] #[id number], Partial fill upon patient request if the prescription is for a schedule II opioid drug., 153, cm, 01/04/22 13:15:00 EDT, H... Start Date: 02/14/22 Status: Ordered gabapentin 800 mg oral tablet See Instructions, TAKE 1 TABLET BY MOUTH FOUR TIMES DAILY, # 360 tablet, 0 Refills, [facility] #[id number], 153, cm, 10/08/21 13:23:00 EDT, Height, 113.9, [...] capsule, 1 Refills, Maintenance, 12/08/21 10:10:00 EDT, [facility] #[id number], 153, cm, 10/08/21 13:23:00 EDT, Height, 113.9,kg, [...] tablet, 0 Refills, Maintenance, 01/20/22 17:46:00 EDT, [facility] #[id number], 153, cm, 01/04/22 13:15:00 ED... Start Date: 01/20/22 Status: Ordered lidocaine 3% topical gel 1 application, Topically, 2 times a day, PRN as needed for pain, to replace 2% topical, # 28.5 Gm, 2 Refills, Acute 03/29/22 14:17:00 EST, 12/28/21 14:17:00 EDT, Gel, [facility] #[id number], Partial fill upon patient request if the prescription i... Start Date: 12/28/21 Stop Date: 03/29/22 Status: Ordered meloxicam 15 mg oral tablet 1/2 TO 1 TABLET, By Mouth, Daily, PRN NEEDED FOR MODERATE PAIN, # 30 tablet, 5 Refills, Maintenance, 01/10/22 20:40:00 EDT, [facility] #[id number], 153, cm, 01/04/22 13:15:00 EDT, Height, 113.9, [...] capsule, 0 Refills, Maintenance, 01/16/22 8:28:00 EDT, [facility] #[id number], 153, cm, 01/04/22 13:15:00 EDT, Height, 113.9, kg, 10/08/21 13:23:00 EDT, Dry Weight Start Date: 01/16/22 Status: Ordered ondansetron 4 mg oral tablet 1 tablet, By Mouth, Every 8 hours, PRN NEEDED FOR NAUSEA OR VOMITING, # 30 tablet, 0 Refills, Maintenance, 03/01/22 11:29:00 EST, [facility] #[id number], 153, cm, 01/04/22 13:15:00 EDT, Height, 113.9, kg, 10/08/21 13:23:00 EDT, Dry Weight Start Date: 03/01/22 Status: Ordered oxybutynin 5 mg oral tablet 1 tablet, By Mouth, 3 times a day, # 270 tablet, 1 Refills, 01/10/22 10:29:00 EDT, [facility] #[id number], 153, cm, 01/04/22 13:15:00 EDT, Height, 113.9, [...] 02/18/22 16:37:00 EDT, Route to Pharmacy Electronically, [facility] #[id number], Partial fill upon patient request if the [...] Team Personnel Name: Kaiden Chirinos MD Position: [facility] Primary Care Physician Member Role: PCP Address: Address: [address] [place] [address] Adult [place] [address]- Care Team Related Persons Name: GIO SHEIKHNA Address: home [address] [facility] [address] [place] [address] Name: CHIARA TEE Address: home [address] [place] [address] [place] [address]
--- OUTSIDE RECORDS SUMMARY | 2022-12-30 08:13 | XMS_ITS | Continuity of Care Document ---
Author Name Unknown Organization [facility] Address [address] [place] [address]- Care Team Providers Care Medical Doctor Md Name Role Phone Candis CARDENAS, Kaiden Villalta Primary Care Physician [phone] Encounter [facility] Date(s): 02/14/22 - 03/16/22 [facility] [address] [place], [place] [address] Allergies, Adverse Reactions, Alerts Substance [...] 8.5 Gm,0 Refills, Maintenance, 12/22/21 10:40:00 EDT, [facility] #[id number], 2 puffs Inhalation Every 4 hours,PRN: NEEDED FOR WHEEZING/cough/shortness... Start Date: 12/22/21 Status: Ordered albuterol 0.083% inhalation solution 3 mL = 2.5 mg, Inhalation, Every 4 hours, PRN for wheezing/cough/shortness of breath, # 25 each, 0 Refills, Maintenance, 10/14/21 22:10:00 EDT, Solution, [email or web address] #[id number], Partial fill upon patient request if the prescription is for a sched... Start Date: 10/14/21 Status: Ordered [place] Saline Mist 0.65% nasal spray 2 sprays, Nares, Both, 4 times a day, # 1 each, 0 Refills, Maintenance, 02/04/22 13:32:00 EDT, [facility] #[id number], Partial fill upon patient request if the [...] tablet, 0 Refills, Maintenance, 12/27/21 13:43:00 EDT, [email or web address] #[id number], 153, cm, 10/08/21 13:23:00 EDT, Height, 113.9, kg, 10/08/21 13:23:00EDT, Dry Weight Start Date: 12/27/21 Status: Ordered clonazePAM 0.5 mg oral tablet 1 tablet = 0.5 mg, By Mouth, 4 times a day, PRN Anxiety, Patient on controlled substance contract. Please do NOT fill until 09/23/2020, # 112 tablet, 0 Refills, Maintenance, 11/18/20 21:02:00 EDT, Tablet, [facility]/pharmacy #[id number], Partial fill upon patient... Start Date: 11/18/20 Status: Ordered diclofenac 1% topical gel = 1 Gm, Topically, 4 times a day, FOR PAIN., # 100 Gm, 1 Refills, [facility], 30, APPLY 1 GM TOPICALLY 4 TIMES A DAY FOR PAIN, 153, cm, 06/07/21 11:07:00 EST, Height, 105, kg, 05/31/21 15:15:00 EST, Dry Weight Start Date: 08/05/21 Status: Ordered Dilaudid 2 mg oral tablet 1 tablet = 2 mg, By Mouth, 2 times a day, PRN Pain , Severe, checked masspat, # 28 tablet, 0 Refills, Maintenance, 03/04/22 14:11:00 EST, Tablet, [facility] #[id number], Partial fill upon patient request if the prescription is for a schedule II o... Start Date: 03/04/22 Status: Ordered Estrace Vaginal Cream 0.1 mg/g = 2 Gm, Vaginally, Daily at bedtime, 2g PV daily at bedtime x 2 weeks, then 1g PV 1-3x per week, # 42.5 Gm, 5 Refills, Maintenance, 11/09/21 11:17:00 EDT, [facility] #[id number], Partial fill upon patient request if the prescription is for a sche... Start Date: 11/09/21 Status: Ordered Estradiol Patch 0.0375 mg/24 hours twice weekly transdermal film, extended release See Instructions, APPLY 1 PATCH TOPICALLY TWICE WEEKLY DIRECTED, # 8 patch, 0 Refills, Maintenance, 02/26/22 10:23:00 EST, [facility] #[id number], 28, APPLY 1 PATCH TOPICALLY TWICE WEEKLY DIRECTED, 153, cm, 01/04/22 13:15:00 EDT, Height, 11... Start Date: 02/26/22 Status: Ordered fluconazole 150 mg oral tablet 1 tablet = 150 mg, By Mouth, Once, PRN vaginal yeast infection, # 1 tablet, 0 Refills, Soft Stop, 03/15/22 10:42:00 EST, Tablet, [facility] #[id number], Partial fill upon patient request if the prescription is for a schedule II opioid drug., 153,... Start Date: 03/15/22 Status: Ordered gabapentin 800 mg oral tablet See Instructions, TAKE 1 TABLET BY MOUTH FOUR TIMES DAILY, # 360 tablet, 0 Refills, [facility] #[id number], 153, cm, 10/08/21 13:23:00 EDT, Height, 113.9, [...] capsule, 1 Refills, Maintenance, 12/08/21 10:10:00 EDT, [facility] #[id number], 153, cm, 10/08/21 13:23:00 EDT, Height, 113.9,kg, [...] 1 Refills, Maintenance, 03/14/22 15:04:00 EST, Tablet, [facility] #[id number], Partial fill upon patient request if the prescription is for a schedule II opioid drug., 153, cm... Start Date: 03/14/22 Status: Ordered lidocaine 3% topical gel 1 application, Topically, 2 times a day, PRN as needed for pain, to replace 2% topical, # 28.5 Gm, 2 Refills, Acute 03/29/22 14:17:00 EST, 12/28/21 14:17:00 EDT, Gel, [facility] #[id number], Partial fill upon patient request if the prescription i... Start Date: 12/28/21 Stop Date: 03/29/22 Status: Ordered meloxicam 15 mg oral tablet 1/2 TO 1 TABLET, By Mouth, Daily, PRN NEEDED FOR MODERATE PAIN, # 30 tablet, 5 Refills, Maintenance, 01/10/22 20:40:00 EDT, [facility] #[id number], 153, cm, 01/04/22 13:15:00 EDT, Height, 113.9, [...] capsule, 0 Refills, Maintenance, 01/16/22 8:28:00 EDT, [facility] #[id number], 153, cm, 01/04/22 13:15:00 EDT, Height, 113.9, kg, 10/08/21 13:23:00 EDT, Dry Weight Start Date: 01/16/22 Status: Ordered ondansetron 4 mg oral tablet 1 tablet, By Mouth, Every 8 hours, PRN NEEDED FOR NAUSEA OR VOMITING, # 30 tablet, 0 Refills, Maintenance, 03/01/22 11:29:00 EST, [facility] #[id number], 153, cm, 01/04/22 13:15:00 EDT, Height, 113.9, kg, 10/08/21 13:23:00 EDT, Dry Weight Start Date: 03/01/22 Status: Ordered oxybutynin 5 mg oral tablet 1 tablet, By Mouth, 3 times a day, # 270 tablet, 1 Refills, 01/10/22 10:29:00 EDT, [facility] #[id number], 153, cm, 01/04/22 13:15:00 EDT, Height, 113.9, [...] 03/14/22 15:10:00 EST, Route to Pharmacy Electronically, [email or web address] #[id number], Partial fill upon patient request if the... Start Date: 03/14/22 Status: Ordered valacyclovir 1 gm oral tablet 1 tablet = 1 Gm, By Mouth, 3 times a day, for 7 days, # 21 tablet, 0 Refills, Acute 03/22/22 10:41:00 EST, 03/15/22 10:41:00 EST, Tablet, [facility] #[id number], Partial fill upon patient request if the [...] Personnel Name: Candis CARDENAS, Kaiden Villalta Position: [facility] Primary Care Physician Member Role: PCP Address: Address: [address] [place] [address] Adult & [place] [address]- Care Team Related Persons Name: RODOLFO SHEIKH Address: home [address] [facility] [address] [place] [address] Name: CHIARA TEE Address: home [address] [place] [address] [address] [place] [address]
--- OUTSIDE RECORDS SUMMARY | 2022-12-30 08:14 | XMS_ITS | Continuity of Care Document ---
Author Name Unknown Organization [facility] Address [address] [place] [address]- Care Team Providers Care Signals Collection Technician Name Role Phone Candis CARDENAS, Kaiden Villalta Primary Care Physician Encounter [facility] ACCT R [id number] Date(s): 03/03/22 - 04/02/22 [facility] [address] [place], [place] [address] Allergies, Adverse Reactions, Alerts [...] 8.5 Gm,0 Refills, Maintenance, 12/22/21 10:40:00 EDT, [facility] #[id number], 2 puffs Inhalation Every 4 hours,PRN: NEEDED FOR WHEEZING/cough/shortness... Start Date: 12/22/21 Status: Ordered albuterol 0.083% inhalation solution 3 mL = 2.5 mg, Inhalation, Every 4 hours, PRN for wheezing/cough/shortness of breath, # 25 each, 0 Refills, Maintenance, 10/14/21 22:10:00 EDT, Solution, [facility] #[id number], Partial fill upon patient request if the prescription is for a sched... Start Date: 10/14/21 Status: Ordered [place] Saline Mist 0.65% nasal spray 2 sprays, Nares, Both, 4 times a day, # 1 each, 0 Refills, Maintenance, 02/04/22 13:32:00 EDT, [facility] #[id number], Partial fill upon patient request if the [...] tablet, 0 Refills, Maintenance, 12/27/21 13:43:00 EDT, [facility] #[id number], 153, cm, 10/08/21 13:23:00 EDT, Height, 113.9, kg, 10/08/21 13:23:00EDT, Dry Weight Start Date: 12/27/21 Status: Ordered clonazePAM 0.5 mg oral tablet 1 tablet = 0.5 mg, By Mouth, 4 times a day, PRN Anxiety, Patient on controlled substance contract. Please do NOT fill until 09/23/2020, # 112 tablet, 0 Refills, Maintenance, 11/18/20 21:02:00 EDT, Tablet, [facility]/pharmacy #[id number], Partial fill upon patient... Start Date: 11/18/20 Status: Ordered diclofenac 1% topical gel = 1 Gm, Topically, 4 times a day, FOR PAIN., # 100 Gm, 1 Refills, [facility], 30, APPLY 1 GM TOPICALLY 4 TIMES A DAY FOR PAIN, 153, cm, 06/07/21 11:07:00 EST, Height, 105, kg, 05/31/21 15:15:00 EST, Dry Weight Start Date: 08/05/21 Status: Ordered Dilaudid 2 mg oral tablet 1 tablet = 2 mg, By Mouth, 2 times a day, PRN Pain , Severe, checked masspat, # 28 tablet, 0 Refills, Maintenance, 03/23/22 22:13:00 EST, Tablet, [facility] #[id number], Partial fill upon patient request if the prescription is for a schedule II o... Start Date: 03/23/22 Status: Ordered Estrace Vaginal Cream 0.1 mg/g = 2 Gm, Vaginally, Daily at bedtime, 2g PV daily at bedtime x 2 weeks, then 1g PV 1-3x per week, # 42.5 Gm, 5 Refills, Maintenance, 11/09/21 11:17:00 EDT, [facility] #[id number], Partial fill upon patient request if the prescription is for a sche... Start Date: 11/09/21 Status: Ordered Estradiol Patch 0.0375 mg/24 hours twice weekly transdermal film, extended release See Instructions, APPLY 1 PATCH TOPICALLY TWICE WEEKLY DIRECTED, # 8 patch, 6 Refills, Maintenance, 03/23/22 16:10:00 EST, [facility] #[id number], 28, APPLY 1 PATCH TOPICALLY TWICE WEEKLY DIRECTED, 153, cm, 01/04/22 13:15:00 EDT, Height, 11... Start Date: 03/23/22 Status: Ordered fluconazole 150 mg oral tablet 1 tablet = 150 mg, By Mouth, Once, PRN vaginal yeast infection, # 1 tablet, 0 Refills, Soft Stop, 03/15/22 10:42:00 EST, Tablet, [facility] #[id number], Partial fill upon patient request if the prescription is for a schedule II opioid drug., 153,... Start Date: 03/15/22 Status: Ordered gabapentin 800 mg oral tablet See Instructions, TAKE 1 TABLET BY MOUTH FOUR TIMES DAILY, # 360 tablet, 0 Refills, [facility] #[id number], 153, cm, 10/08/21 13:23:00 EDT, Height, 113.9, [...] capsule, 1 Refills, Maintenance, 12/08/21 10:10:00 EDT, [facility] #[id number], 153, cm, 10/08/21 13:23:00 EDT, Height, 113.9,kg, [...] 1 Refills, Maintenance, 03/14/22 15:04:00 EST, Tablet, [facility] #[id number], Partial fill upon patient request if the prescription is for a schedule II opioid drug., 153, cm... Start Date: 03/14/22 Status: Ordered meloxicam 15 mg oral tablet 1/2 TO 1 TABLET, By Mouth, Daily, PRN NEEDED FOR MODERATE PAIN, # 30 tablet, 5 Refills, Maintenance, 01/10/22 20:40:00 EDT, [facility] #[id number], 153, cm, 01/04/22 13:15:00 EDT, Height, 113.9, [...] capsule, 0 Refills, Maintenance, 01/16/22 8:28:00 EDT, [facility] #[id number], 153, cm, 01/04/22 13:15:00 EDT, Height, 113.9, kg, 10/08/21 13:23:00 EDT, Dry Weight Start Date: 01/16/22 Status: Ordered ondansetron 4 mg oral tablet 1 tablet, By Mouth, Every 8 hours, PRN NEEDED FOR NAUSEA OR VOMITING, # 30 tablet, 0 Refills, Maintenance, 03/01/22 11:29:00 EST, [facility] #[id number], 153, cm, 01/04/22 13:15:00 EDT, Height, 113.9, kg, 10/08/21 13:23:00 EDT, Dry Weight Start Date: 03/01/22 Status: Ordered oxybutynin 5 mg oral tablet 1 tablet, By Mouth, 3 times a day, # 270 tablet, 1 Refills, 01/10/22 10:29:00 EDT, [facility] #[id number], 153, cm, 01/04/22 13:15:00 EDT, Height, 113.9, [...] 03/14/22 15:10:00 EST, Route to Pharmacy Electronically, [facility] #[id number], Partial fill upon patient request if the... [...] Care Physician Member Role: PCP Address: Address: [address] [place] [address] Adult & [place] [address]- Care Team Related Persons Name: RODOLFO SHEIKH Address: home [address] [facility] [address] [place] [address] Name: CHIARA TEE Address: home [address] [place] [address] [address] [place] [address]
--- OUTSIDE RECORDS SUMMARY | 2022-12-30 08:14 | XMS_ITS | Continuity of Care Document ---
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 Start Date: 12/24/20 Status: Ordered baclofen 10 mg oral tablet 10 mg, 1, tablet, By Mouth, 3 times a day, PRN, # 30 tablet, Refills 0, Tot. Refills 0, Maintenance, Spasm, 01/31/19 21:47:23 EDT, Route to Pharmacy Electronically, [id number], [id number] Start Date: 01/31/19 Stop Date: 02/14/19 Status: Ordered benzonatate 100 mg oral capsule 2 capsule, By Mouth, 3 times a day, PRN NEEDED FOR COUGH, # 30 capsule, 1 Refills, Physician Stop 02/19/22 16:55:00 EDT, 02/19/21 16:54:00 EDT, [facility]/pharmacy #[id number], 160, cm, 12/04/20 10:52:00 EDT, Height, 104.6, kg, 12/04/20 10:52:00 EDT, Dry Weight Start Date: 02/19/21 Stop Date: 02/19/22 Status: Ordered clonazePAM 0.5 mg oral tablet 1 tablet = 0.5 mg, By Mouth, 4 times a day, PRN Anxiety, Patient on controlled substance contract. Please do NOT fill until 09/23/2020, # 112 tablet, 0 Refills, Maintenance, 11/18/20 21:02:00 EDT, Tablet, [facility]/pharmacy #[id number], Partial fill upon patient... Start Date: 11/18/20 Status: Ordered Famotidine 0 Refills, Maintenance, 04/07/19 16:11:00 EST Start Date: 04/07/19 Status: Ordered gabapentin 800 mg oral tablet 1 tablet = 800 mg, By Mouth, 4 times a day, # 360 tablet, 1 Refills, Maintenance, 11/09/20 23:47:00EDT, Tablet, [facility]/pharmacy #[id number], Partial fill upon patient request if [...] 1 Refills, Maintenance, 02/25/21 8:28:00 EST, Capsule, [id number], Partial fill upon [...] 1 Refills, Maintenance, 11/05/20 11:43:00 EDT, Tablet, [facility]/pharmacy #[id number], Partial fill upon patient request if the prescription is for a schedule II opioid drug., 160, cm, 10/30/20 8:2... Start Date: 11/05/20 Status: Ordered meloxicam 15 mg oral tablet 1/2 TO 1 TABLET, By Mouth, Daily, PRN NEEDED FOR MODERATE PAIN, # 30 tablet, 1 Refills, [facility] [id number], 160, cm, 12/04/20 10:52:00 EDT, Height, 104.6, [...] # 15 tablet, 0 Refills, [facility], 160, cm, 12/04/20 10:52:00 EDT, Height, 104.6, [...] a schedule II opioid drug., 160, cm, 07/... Start Date: 11/03/20 Status: Ordered Vitamin D3 [...]
--- OUTSIDE RECORDS SUMMARY | 2022-12-30 08:14 | XMS_ITS | Continuity of Care Document ---
Author Name Unknown Organization 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 [address] [place], [place] [address] Allergies, Adverse Reactions, Alerts Substance [...] # 8.5 each, 0 Refills, [id number], 20, INHALE 2 PUFFS BY MOUTH EVERY 4 HOURS NEEDED FOR WHEEZING, 160, cm, 03/30/21 10:47:00 EST, Height, 104.6, kg, 12/04/20 10:52:00 EDT, Dry Weight Start Date: 04/28/21 Status: Ordered amitriptyline 10 mg oral tablet 10 mg, 1, tablet, By Mouth, Daily at bedtime, # 90 tablet, Refills 1, Tot. Refills 1, Maintenance, 12/24/20 16:08:00 EDT, Route to Pharmacy Electronically, [facility]/pharmacy #[id number], Partial fill upon patient request if the prescription is for a schedule II... Start Date: 12/24/20 Status: Ordered baclofen 10 mg oral tablet 10 mg, 1, tablet, By Mouth, 3 times a day, PRN, # 30 tablet, Refills 0, Tot. Refills 0, Maintenance, Spasm, 01/31/19 21:47:23 EDT, Route to Pharmacy Electronically, [id number], [facility]/pharmacy #[id number] Start Date: 01/31/19 Stop Date: 02/14/19 Status: Ordered benzonatate 100 mg oral capsule 2 capsule, By Mouth, 3 times a day, PRN NEEDED FOR COUGH, # 30 capsule, 1 Refills, Physician Stop 03/19/22 17:38:00 EST, 02/19/22 16:55:00 EDT, [facility]/pharmacy #[id number], 160, cm, 12/04/20 10:52:00 EDT, Height, 104.6, kg, 12/04/20 10:52:00 EDT, Dry Weight Start Date: 02/19/22 Stop Date: 03/19/22 Status: Ordered benzonatate 100 mg oral capsule 2 capsule, By Mouth, 3 times a day, PRN NEEDED FOR COUGH, # 30 capsule, 1 Refills, Physician Stop 02/19/22 16:55:00 EDT, 02/19/21 16:54:00 EDT, [facility]/pharmacy #[id number], 160, cm, 12/04/20 10:52:00 EDT, Height, 104.6, kg, 12/04/20 10:52:00 EDT, Dry Weight Start Date: 02/19/21 Stop Date: 02/19/22 Status: Ordered clonazePAM 0.5 mg oral tablet 1 tablet = 0.5 mg, By Mouth, 4 times a day, PRN Anxiety, Patient on controlled substance contract. Please do NOT fill until 09/23/2020, # 112 tablet, 0 Refills, Maintenance, 11/18/20 21:02:00 EDT, Tablet, [facility]/pharmacy #[id number], Partial fill upon patient... Start Date: 11/18/20 Status: Ordered Dilaudid 2 mg oral tablet 0.5 tablet = 1 mg, By Mouth, Every 6 hours, PRN Pain , Severe, # 28 tablet, 0 Refills, Acute 06/30/22 10:07:00 EDT, 06/30/21 10:06:00 EDT, Tablet, [facility]/pharmacy #[id number], Partial fill upon patient request if the prescription is for a schedule II opioid dr... Start Date: 06/30/21 Stop Date: 06/30/22 Status: Ordered Famotidine 0 Refills, Maintenance, 04/07/19 16:11:00 EST Start Date: 04/07/19 Status: Ordered gabapentin 800 mg oral tablet 1 tablet, By Mouth, 4 times a day, # 360 tablet, 1 Refills, [facility] [id number], 160, cm, 03/30/21 10:47:00 EST, Height, 104.6, [...] 1 Refills, Maintenance, 05/14/21 15:23:00 EST, Tablet, [facility]/pharmacy #[id number], Partial fill upon patient request if the prescription is for a schedule II opioid drug., 160, c... Start Date: 05/14/21 Status: Ordered omeprazole 20 mg oral enteric coated capsule 1 capsule, By Mouth, Daily, # 90 capsule, 1 Refills, [facility] [id number], 160, cm, 03/30/21 10:47:00 EST, Height, 104.6, [...]
--- OUTSIDE RECORDS SUMMARY | 2022-12-30 08:14 | XMS_ITS | Continuity of Care Document ---
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 Start Date: 12/22/21 Status: Ordered albuterol 0.083% inhalation solution 3 mL = 2.5 mg, Inhalation, Every 4 hours, PRN for wheezing/cough/shortness of breath, # 25 each, 0 Refills, Maintenance, 10/14/21 22:10:00 EDT, Solution, [facility] #[id number], Partial fill upon patient request if the prescription is for a sched... Start Date: 10/14/21 Status: Ordered Waldo Saline Mist 0.65% nasal spray 2 sprays, Nares, Both, 4 times a day, # 1 each, 0 Refills, Maintenance, 02/04/22 13:32:00 EDT, [facility] #[id number], Partial fill upon patient request if the [...] tablet, 0 Refills, Maintenance, 12/27/21 13:43:00 EDT, [facility] #[id number], 153, cm, 10/08/21 13:23:00 EDT, Height, 113.9, kg, 10/08/21 13:23:00EDT, Dry Weight Start Date: 12/27/21 Status: Ordered clonazePAM 0.5 mg oral tablet 1 tablet = 0.5 mg, By Mouth, 4 times a day, PRN Anxiety, Patient on controlled substance contract. Please do NOT fill until 09/23/2020, # 112 tablet, 0 Refills, Maintenance, 11/18/20 21:02:00 EDT, Tablet, [facility]/pharmacy #[id number], Partial fill upon patient... Start Date: 11/18/20 Status: Ordered diclofenac 1% topical gel = 1 Gm, Topically, 4 times a day, FOR PAIN., # 100 Gm, 1 Refills, [id number], 30, APPLY 1 GM TOPICALLY 4 TIMES A DAY FOR PAIN, 153, cm, 06/07/21 11:07:00 EST, Height, 105, kg, 05/31/21 15:15:00 EST, Dry Weight Start Date: 08/05/21 Status: Ordered Dilaudid 2 mg oral tablet 1 tablet = 2 mg, By Mouth, 2 times a day, PRN Pain , Severe, checked masspat, # 56 tablet, 0 Refills, Maintenance, 05/31/22 15:38:00 EST, Tablet, [facility] #[id number], Partial fill upon patient request if the prescription is for a schedule II o... Start Date: 05/31/22 Status: Ordered Estrace Vaginal Cream 0.1 mg/g = 2 Gm, Vaginally, Daily at bedtime, 2g PV daily at bedtime x 2 weeks, then 1g PV 1-3x per week, # 42.5 Gm, 5 Refills, Maintenance, 11/09/21 11:17:00 EDT, [facility] #[id number], Partial fill upon patient request if the prescription is for a sche... Start Date: 11/09/21 Status: Ordered Estradiol Patch 0.0375 mg/24 hours twice weekly transdermal film, extended release See Instructions, APPLY 1 PATCH TOPICALLY TWICE WEEKLY DIRECTED, # 8 patch, 6 Refills, Maintenance, 03/23/22 16:10:00 EST, [facility] #[id number], 28, APPLY 1 PATCH TOPICALLY TWICE WEEKLY DIRECTED, 153, cm, 01/04/22 13:15:00 EDT, Height, 11... Start Date: 03/23/22 Status: Ordered fluconazole 150 mg oral tablet 1 tablet = 150 mg, By Mouth, Once, PRN vaginal yeast infection, # 1 tablet, 0 Refills, Soft Stop, 03/15/22 10:42:00 EST, Tablet, [facility] #[id number], Partial fill upon patient request if the prescription is for a schedule II opioid drug., 153,... Start Date: 03/15/22 Status: Ordered fluticasone 50 mcg/inh nasal spray See Instructions, SHAKE LIQUID AND USE 1 SPRAY IN EACH NOSTRIL TWICE DAILY, # 16 Gm, 1 Refills, Maintenance, 05/18/22 13:57:00 EST, [facility] #[id number], 30, SHAKE LIQUID AND USE 1 SPRAY IN EACH NOSTRIL TWICE DAILY, 153, cm, 04/25/22 16:23:00 E... Start Date: 05/18/22 Status: Ordered gabapentin 800 mg oral tablet 1 tablet, By Mouth, 4 times a day, # 360 tablet, 1 Refills, Maintenance, 04/19/22 12:59:00 EST, [facility] #[id number], 153, cm, 01/04/22 13:15:00 EDT, Height, 113.9, [...] capsule, 1 Refills, Maintenance, 05/20/22 12:57:00 EST, [facility] #[id number], 153, cm, 04/25/22 16:23:00 EST, Height, 109, [...] 1 Refills, Maintenance, 04/28/22 13:51:00 EST, Tablet, [facility] #[id number], Partial fill upon patient request if the prescription is for a schedule II opioid drug., 153, cm... Start Date: 04/28/22 Status: Ordered lidocaine 4% topical cream 1 application, Topically, 3 times a day, PRN pain of forearms, # 30 Gm, 1 Refills, Acute 06/23/22 16:24:00 EST, 04/25/22 16:23:00 EST, Cream, [facility] #[id number], Partial fill upon patient request if the prescription is for a schedule II opioi... Start Date: 04/25/22 Stop Date: 06/23/22 Status: Ordered meloxicam 15 mg oral tablet 1/2 TO 1 TABLET, By Mouth, Daily, PRN NEEDED FOR MODERATE PAIN, # 30 tablet, 5 Refills, Maintenance, 01/10/22 20:40:00 EDT, [facility] #[id number], 153, cm, 01/04/22 13:15:00 EDT, Height, 113.9, [...] capsule, 1 Refills, Maintenance, 04/19/22 12:41:00 EST, [facility] #[id number], 153, cm, 01/04/22 13:15:00 EDT, Height, 113.9, kg, 10/08/21 13:23:00 EDT, Dry Weight Start Date: 04/19/22 Status: Ordered ondansetron 4 mg oral tablet 1 tablet, By Mouth, Every 8 hours, PRN NEEDED FOR NAUSEA OR VOMITING, # 30 tablet, 1 Refills, Maintenance, 04/14/22 21:15:00 EST, [facility] #[id number], 153, cm, 01/04/22 13:15:00 EDT, Height, 113.9, kg, 10/08/21 13:23:00 EDT, Dry Weight Start Date: 04/14/22 Status: Ordered oxybutynin 5 mg oral tablet 1 tablet, By Mouth, 3 times a day, # 270 tablet, 1 Refills, 01/10/22 10:29:00 EDT, [facility] #[id number], 153, cm, 01/04/22 13:15:00 EDT, Height, 113.9, [...] 04/14/22 21:16:00 EST, Route to Pharmacy Electronically, [facility] #[id number], Partial fill upon patient request if the... [...] Personnel Name: Candis CARDENAS, Kaiden Villalta Position: [facility] Primary Care Physician Member Role: PCP Address: Address: [address] [place] [address] Adult & [place] [address]- Care Team Related Persons Name: RODOLFO SHEIKH Address: home [address] [facility] [address] [place] [id number] Name: CHIARA TEE Address: home [address] [place] [address] [place] [id number]
--- OUTSIDE RECORDS SUMMARY | 2022-12-30 08:14 | XMS_ITS | Continuity of Care Document ---
Author Name Unknown Organization 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 [address] [place], [place] [address] Allergies, Adverse Reactions, Alerts Substance [...] 8.5 Gm,0 Refills, Maintenance, 12/08/21 20:52:00 EDT, [facility] #[id number], 2 puffs Inhalation Every 4 hours,PRN: NEEDED FOR WHEEZING/cough/shortness... Start Date: 12/08/21 Status: Ordered albuterol 0.083% inhalation solution 3 mL = 2.5 mg, Inhalation, Every 4 hours, PRN for wheezing/cough/shortness of breath, # 25 each, 0 Refills, Maintenance, 10/14/21 22:10:00 EDT, Solution, [facility] #[id number], Partial fill upon patient request if the prescription is for a sched... Start Date: 10/14/21 Status: Ordered benzonatate 100 mg oral capsule 2 capsule, By Mouth, 3 times a day, PRN NEEDED FOR COUGH, # 30 capsule, 1 Refills, Physician Stop 11/10/22 14:46:00 EDT, 03/19/22 17:38:00 EST, [facility] #[id number], 153, cm, 10/08/21 13:23:00 EDT, Height, 113.9, kg, 10/08/21 13:23:00 EDT, D... Start Date: 03/19/22 Stop Date: 11/10/22 Status: Ordered benzonatate 100 mg oral capsule 2 capsule, By Mouth, 3 times a day, PRN NEEDED FOR COUGH, # 30 capsule, 1 Refills, Physician Stop 12/10/22 15:43:00 EDT, 11/10/22 14:46:00 EDT, [facility] #[id number], 153, cm, 10/08/21 13:23:00 EDT, Height, 113.9, [...] 0 Refills, Maintenance, 11/18/20 21:02:00 EDT, Tablet, [facility]/pharmacy #[id number], Partial fill upon patient... Start Date: 11/18/20 Status: Ordered diclofenac 1% topical gel = 1 Gm, Topically, 4 times a day, FOR PAIN., # 100 Gm, 1 Refills, [facility] 93412, 30, APPLY 1 GM TOPICALLY 4 TIMES A DAY FOR PAIN, 153, cm, 06/07/21 11:07:00 EST, Height, 105, kg, 05/31/21 15:15:00 EST, Dry Weight Start Date: 08/05/21 Status: Ordered Dilaudid 2 mg oral tablet 1 tablet = 2 mg, By Mouth, 2 times a day, PRN Pain , Severe, checked masspat, # 28 tablet, 0 Refills, Maintenance, 12/07/21 13:30:00 EDT, Tablet, [facility] #[id number], Partial fill upon patient request if the prescription is for a schedule II o... Start Date: 12/07/21 Status: Ordered Estrace Vaginal Cream 0.1 mg/g = 2 Gm, Vaginally, Daily at bedtime, 2g PV daily at bedtime x 2 weeks, then 1g PV 1-3x per week, # 42.5 Gm, 5 Refills, Maintenance, 11/09/21 11:17:00 EDT, [facility] #[id number], Partial fill upon patient request if the prescription is for a sche... Start Date: 11/09/21 Status: Ordered estradiol 0.0375 mg/24 hours twice weekly transdermal film, extended release See Instructions, 1 patch Topically, change patch twice a week, # 1 pack/packet, 1 Refills, Maintenance, 12/07/21 10:42:00 EDT, [facility] #[id number], Partial fill upon patient request if the prescription is for a schedule II opioid drug., 153,... Start Date: 12/07/21 Status: Ordered gabapentin 800 mg oral tablet See Instructions, TAKE 1 TABLET BY MOUTH FOUR TIMES DAILY, # 360 tablet, 0 Refills, [facility] #[id number], 153, cm, 10/08/21 13:23:00 EDT, Height, 113.9, [...] capsule, 1 Refills, Maintenance, 12/08/21 10:10:00 EDT, [facility] #[id number], 153, cm, 10/08/21 13:23:00 EDT, Height, 113.9,kg, [...] 1 Refills, Maintenance, 07/30/21 12:25:00 EDT, Tablet, [facility] #[id number], Partial fill upon patient request if the prescription is for a schedule II opioid drug... Start Date: 07/30/21 Status: Ordered levothyroxine 0.1 mg oral tablet 1 tablet = 100 mcg, By Mouth, Daily, dose increase, # 90 tablet, 0 Refills, Maintenance, 11/01/21 16:08:00 EDT, [facility] #[id number], Please discontinue 88ug, 153, cm, 10/08/21 13:23:00 [...] 1 Refills, Maintenance, 11/30/21 15:44:00 EDT, Tablet, [facility] #[id number], [place]... Start Date: 11/30/21 Status: Ordered lidocaine 2% topical gel with applicator 5 mL = 0.1 Gm, Topically, 2 times a day, PRN Pain , Moderate, # 60 mL, 2 Refills, Soft Stop, 09/24/21 16:43:00 EDT, Gel, [facility] #[id number], Partial fill upon patient request if the prescription is for a schedule II opioid drug., 153, cm, ... Start Date: 09/24/21 Status: Ordered meloxicam 15 mg oral tablet 1/2 TO 1 TABLET, By Mouth, Daily, PRN NEEDED FOR MODERATE PAIN, # 30 tablet, 1 Refills, 229:04:00 EDT, [facility] #[id number], 153, cm, 10/08/21 13:23:00 EDT, Height, 113.9, [...] 90 capsule, 0 Refills, 09/27/21 14:31:00 EDT, [facility] #[id number], 153, cm, 08/10/21 11:19:00 EDT, Height, 105, kg, 05/31/21 15:15:00 EST, Dry Weight Start Date: 09/27/21 Status: Ordered ondansetron 4 mg oral tablet 1 tablet = 4 mg, By Mouth, Every 8 hours, PRN Nausea & Vomiting, # 30 tablet, 1 Refills, Maintenance, 11/10/21 14:47:00 EDT, [facility] #[id number], 153, cm, 10/08/21 13:23:00 EDT, Height, 113.9, kg, 10/08/21 13:23:00 EDT, Dry Weight Start Date: 11/10/21 Status: Ordered oxybutynin 5 mg oral tablet 1 tablet, By Mouth, 3 times a day, # 270 tablet, 1 Refills, [facility] [id number], 153, cm, 08/10/21 11:19:00 EDT, Height, 105, [...] Personnel Name: Candis CARDENAS, Kaiden Villalta Address: [address] [place] [address] Adult & Pediatric Medicine [place], [place] [address]
--- OUTSIDE RECORDS SUMMARY | 2022-12-30 08:14 | XMS_ITS | Continuity of Care Document ---
Author Name Unknown Organization [facility] Address [address] [place] [address]- Care Team Providers Care Coke Drawer Name Role Phone Candis CARDENAS, Kaiden Villalta Primary Care Physician [phone] Encounter [facility] [place] Date(s): 10/14/21 - 11/13/21 [facility] [address] [place], [place] [address] Allergies, Adverse Reactions, Alerts Substance Reaction [...] 8.5 Gm,0 Refills, Maintenance, 09/28/21 16:57:00 EDT, [facility] #[id number], 2 puffs Inhalation Every 4 hours,PRN: NEEDED FOR WHEEZING/cough/shortness... Start Date: 09/28/21 Status: Ordered albuterol 0.083% inhalation solution 3 mL = 2.5 mg, Inhalation, Every 4 hours, PRN for wheezing/cough/shortness of breath, # 25 each, 0 Refills, Maintenance, 10/14/21 22:10:00 EDT, Solution, [facility] #[id number], Partial fill upon patient request if the prescription is for a sched... Start Date: 10/14/21 Status: Ordered benzonatate 100 mg oral capsule 2 capsule, By Mouth, 3 times a day, PRN NEEDED FOR COUGH, # 30 capsule, 1 Refills, Physician Stop 11/10/22 14:46:00 EDT, 03/19/22 17:38:00 EST, [facility] #[id number], 153, cm, 10/08/21 13:23:00 EDT, Height, 113.9, kg, 10/08/21 13:23:00 EDT, D... Start Date: 03/19/22 Stop Date: 11/10/22 Status: Ordered budesonide 1 mg/2 mL inhalation suspension 2 mL = 1 mg, Neb, 2 times a day, rinse mouth out after use, # 120 mL, 1 Refills, Maintenance, 10/25/21 18:30:00 EDT, Suspension, [facility] #[id number], Partial fill upon patient request if the [...] 0 Refills, Maintenance, 11/18/20 21:02:00 EDT, Tablet, [facility]/pharmacy #[id number], Partial fill upon patient... Start Date: 11/18/20 Status: Ordered diclofenac 1% topical gel = 1 Gm, Topically, 4 times a day, FOR PAIN., # 100 Gm, 1 Refills, [facility] 11204, 30, APPLY 1 GM TOPICALLY 4 TIMES A DAY FOR PAIN, 153, cm, 02/21/22 11:07:00 EST, Height, 105, kg, 05/31/21 15:15:00 EST, Dry Weight Start Date: 08/05/21 Status: Ordered Dilaudid 2 mg oral tablet 1 tablet = 2 mg, By Mouth, 2 times a day, PRN Pain , Severe, checked masspat, # 28 tablet, 0 Refills, Maintenance, 11/10/21 14:47:00 EDT, Tablet, [facility] #[id number], Partial fill upon patient request if the prescription is for a schedule II o... Start Date: 11/10/21 Status: Ordered Estrace Vaginal Cream 0.1 mg/g = 2 Gm, Vaginally, Daily at bedtime, 2g PV daily at bedtime x 2 weeks, then 1g PV 1-3x per week, # 42.5 Gm, 5 Refills, Maintenance, 11/09/21 11:17:00 EDT, [facility] #[id number], Partial fill upon patient request if the prescription is for a sche... Start Date: 11/09/21 Status: Ordered gabapentin 800 mg oral tablet See Instructions, TAKE 1 TABLET BY MOUTH FOUR TIMES DAILY, # 360 tablet, 0 Refills, [facility] #[id number], 153, cm, 10/08/21 13:23:00 EDT, Height, 113.9, [...] capsule, 1 Refills, Maintenance, 09/28/21 16:58:00 EDT, [facility] #[id number], 153, cm, 08/10/21 11:19:00 EDT, Height, 105, [...] 1 Refills, Maintenance, 07/30/21 12:25:00 EDT, Tablet, [facility] #[id number], Partial fill upon patient request if the prescription is for a schedule II opioid drug... Start Date: 07/30/21 Status: Ordered levothyroxine 0.1 mg oral tablet 1 tablet = 100 mcg, By Mouth, Daily, dose increase, # 90 tablet, 0 Refills, Maintenance, 11/01/21 16:08:00 EDT, [facility] #[id number], Please discontinue 88ug, 153, cm, 10/08/21 13:23:00 EDT, Height, 113.9, kg, 10/08/21 13:23:00 EDT, Dry Weight Start Date: 11/01/21 Status: Ordered lidocaine 2% topical gel with applicator 5 mL = 0.1 Gm, Topically, 2 times a day, PRN Pain , Moderate, # 60 mL, 2 Refills, Soft Stop, 09/24/21 16:43:00 EDT, Gel, [facility] #[id number], Partial fill upon patient request if the prescription is for a schedule II opioid drug., 153, cm, /... Start Date: 09/24/21 Status: Ordered Nebulizer/Compressor See Instructions, # 1 each, Refills 0, Tot. Refills 0, Maintenance, Use to administer albuterol q 4hours prn cough/wheezing Dx: Stacyid 19, 10/15/21 13:43:00 EDT, Supply, 153, cm, 10/08/21 13:23:00 EDT, Height, 113.9, kg, 10/08/21 13:23:00 EDT, Dry We... Start Date: 10/15/21 Status: Ordered omeprazole 20 mg oral enteric coated capsule 1 capsule, By Mouth, Daily, # 90 capsule, 0 Refills, 09/27/21 14:31:00 EDT, [facility] #[id number], 153, cm, 08/10/21 11:19:00 EDT, Height, 105, kg, 05/31/21 15:15:00 EST, Dry Weight Start Date: 09/27/21 Status: Ordered ondansetron 4 mg oral tablet 1 tablet = 4 mg, By Mouth, Every 8 hours, PRN Nausea & Vomiting, # 30 tablet, 1 Refills, Maintenance, 11/10/21 14:47:00 EDT, [facility] #[id number], 153, cm, 10/08/21 13:23:00 EDT, Height, 113.9, kg, 10/08/21 13:23:00 EDT, Dry Weight Start Date: 11/10/21 Status: Ordered oxybutynin 5 mg oral tablet 1 tablet, By Mouth, 3 times a day, # 270 tablet, 1 Refills, [facility], 153, cm, 08/10/21 11:19:00 EDT, Height, 105, kg, 05/31/21 15:15:00 EST, Dry Weight Start Date: 09/09/21 Status: Ordered Right ankle stirrup air cast Right ankle stirrup air cast, See Instructions, # 1 each, Refills 0, Tot. Refills 0, Maintenance, To be worn on ambulation, 06/07/21 11:32:00 EST, Supply Start Date: 06/07/21 Status: Ordered ZyrTEC 10 mg oral tablet 1 tablet = 10 mg, By Mouth, Daily, # 90 tablet, 1 Refills, Maintenance, 07/30/21 12:22:00 EDT, Tablet, [facility] #[id number], Partial fill upon patient request if the [...]
--- OUTSIDE RECORDS SUMMARY | 2022-12-30 08:14 | XMS_ITS | Continuity of Care Document ---
Author Name Unknown Organization [facility] Address Unknown Care Team Providers Care Interface Analyst Name Role Phone Kaiden Chirinos MD Primary Care Physician Encounter [facility] [place] Date(s): 10/26/21 - 11/25/21 [facility] Allergies, Adverse Reactions, Alerts Substance Reaction Severity [...] 8.5 Gm,0 Refills, Maintenance, 09/28/21 16:57:00 EDT, [facility] #[id number], 2 puffs Inhalation Every 4 hours,PRN: NEEDED FOR WHEEZING/cough/shortness... Start Date: 09/28/21 Status: Ordered albuterol 0.083% inhalation solution 3 mL = 2.5 mg, Inhalation, Every 4 hours, PRN for wheezing/cough/shortness of breath, # 25 each, 0 Refills, Maintenance, 10/14/21 22:10:00 EDT, [facility], [facility] #[id number], Partial fill upon patient request if the prescription is for a sched... Start Date: 10/14/21 Status: Ordered Azithromycin 5 Day Dose Pack 250 mg oral tablet See Instructions, Take 2 tablets on day one. Take 1 tablet daily on Days 2-5., # 6 tablet, 0 Refills, Maintenance, 11/18/21 11:47:00 EDT, Tablet, [email or web address] #[id number], Partial fill upon patient request if the prescription is for a schedule II... Start Date: 11/18/21 Status: Ordered benzonatate 100 mg oral capsule 2 capsule, By Mouth, 3 times a day, PRN NEEDED FOR COUGH, # 30 capsule, 1 Refills, Physician Stop 11/10/22 14:46:00 EDT, 03/19/22 17:38:00 EST, [email or web address] #[id number], 153, cm, 10/08/21 13:23:00 EDT, Height, 113.9, kg, 10/08/21 13:23:00 EDT, D... Start Date: 03/19/22 Stop Date: 11/10/22 Status: Ordered budesonide 1 mg/2 mL inhalation suspension 2 mL = 1 mg, Neb, 2 times a day, rinse mouth out after use, # 120 mL, 1 Refills, Maintenance, 10/25/21 18:30:00 EDT, Suspension, [email or web address] #[id number], Partial fill upon patient request if the [...] 0 Refills, Maintenance, 11/18/20 21:02:00 EDT, Tablet, [facility]/pharmacy #[id number], Partial fill upon patient... Start Date: 11/18/20 Status: Ordered diclofenac 1% topical gel = 1 Gm, Topically, 4 times a day, FOR PAIN., # 100 Gm, 1 Refills, [facility], 30, APPLY 1 GM TOPICALLY 4 TIMES A DAY FOR PAIN, 153, cm, 06/07/21 11:07:00 EST, Height, 105, kg, 05/31/21 15:15:00 EST, Dry Weight Start Date: 08/05/21 Status: Ordered Dilaudid 2 mg oral tablet 1 tablet = 2 mg, By Mouth, 2 times a day, PRN Pain , Severe, checked masspat, # 28 tablet, 0 Refills, Maintenance, 11/23/21 16:09:00 EDT, Tablet, [email or web address] #[id number], Partial fill upon patient request if the prescription is for a schedule II o... Start Date: 11/23/21 Status: Ordered Estrace Vaginal Cream 0.1 mg/g = 2 Gm, Vaginally, Daily at bedtime, 2g PV daily at bedtime x 2 weeks, then 1g PV 1-3x per week, # 42.5 Gm, 5 Refills, Maintenance, 11/09/21 11:17:00 EDT, [email or web address] #[id number], Partial fill upon patient request if the prescription is for a sche... Start Date: 11/09/21 Status: Ordered gabapentin 800 mg oral tablet See Instructions, TAKE 1 TABLET BY MOUTH FOUR TIMES DAILY, # 360 tablet, 0 Refills, [email or web address] #[id number], 153, cm, 10/08/21 13:23:00 EDT, Height, 113.9, [...] capsule, 1 Refills, Maintenance, 09/28/21 16:58:00 EDT, [email or web address] #[id number], 153, cm, 08/10/21 11:19:00 EDT, Height, 105, [...] 1 Refills, Maintenance, 07/30/21 12:25:00 EDT, Tablet, [email or web address] #[id number], Partial fill upon patient request if the prescription is for a schedule II opioid drug... Start Date: 07/30/21 Status: Ordered levothyroxine 0.1 mg oral tablet 1 tablet = 100 mcg, By Mouth, Daily, dose increase, # 90 tablet, 0 Refills, Maintenance, 11/01/21 16:08:00 EDT, [email or web address] #[id number], Please discontinue 88ug, 153, cm, 10/08/21 13:23:00 EDT, Height, 113.9, kg, 10/08/21 13:23:00 EDT, Dry Weight Start Date: 11/01/21 Status: Ordered lidocaine 2% topical gel with applicator 5 mL = 0.1 Gm, Topically, 2 times a day, PRN Pain , Moderate, # 60 mL, 2 Refills, Soft Stop, 09/24/21 16:43:00 EDT, Gel, [email or web address] #[id number], Partial fill upon patient request if the prescription is for a schedule II opioid drug., 153, cm, ... Start Date: 09/24/21 Status: Ordered meloxicam 15 mg oral tablet 1/2 TO 1 TABLET, By Mouth, Daily, PRN NEEDED FOR MODERATE PAIN, # 30 tablet, 1 Refills, :04:00 EDT, [email or web address] #[id number], 153, cm, 10/08/21 13:23:00 EDT, Height, 113.9, [...] 90 capsule, 0 Refills, 09/27/21 14:31:00 EDT, [email or web address] #[id number], 153, cm, 08/10/21 11:19:00 EDT, Height, 105, kg, 05/31/21 15:15:00 EST, Dry Weight Start Date: 09/27/21 Status: Ordered ondansetron 4 mg oral tablet 1 tablet = 4 mg, By Mouth, Every 8 hours, PRN Nausea & Vomiting, # 30 tablet, 1 Refills, Maintenance, 11/10/21 14:47:00 EDT, [email or web address] #[id number], 153, cm, 10/08/21 13:23:00 EDT, Height, 113.9, kg, 10/08/21 13:23:00 EDT, Dry Weight Start Date: 11/10/21 Status: Ordered oxybutynin 5 mg oral tablet 1 tablet, By Mouth, 3 times a day, # 270 tablet, 1 Refills, [facility] 91507, 153, cm, 08/10/21 11:19:00 EDT, Height, 105, [...] 1 Refills, Maintenance, 07/30/21 12:22:00 EDT, Tablet, [facility] #[id number], Partial fill upon patient request if the [...]
--- OUTSIDE RECORDS SUMMARY | 2022-12-30 08:14 | XMS_ITS | Continuity of Care Document ---
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 #[id number], 2 puffs Inhalation Every 4 hours,PRN: NEEDED FOR WHEEZING/cough/shortness... Start Date: 12/22/21 Status: Ordered albuterol 0.083% inhalation solution 3 mL = 2.5 mg, Inhalation, Every 4 hours, PRN for wheezing/cough/shortness of breath, # 25 each, 0 Refills, Maintenance, 10/14/21 22:10:00 EDT, Solution, [facility] #[id number], Partial fill upon patient request if the prescription is for a sched... Start Date: 10/14/21 Status: Ordered [place] Saline Mist 0.65% nasal spray 2 sprays, Nares, Both, 4 times a day, # 1 each, 0 Refills, Maintenance, 02/04/22 13:32:00 EDT, [facility] #[id number], Partial fill upon patient request if the [...] tablet, 0 Refills, Maintenance, 12/27/21 13:43:00 EDT, [facility] #[id number], 153, cm, 10/08/21 13:23:00 EDT, Height, 113.9, kg, 10/08/21 13:23:00EDT, Dry Weight Start Date: 12/27/21 Status: Ordered clonazePAM 0.5 mg oral tablet 1 tablet = 0.5 mg, By Mouth, 4 times a day, PRN Anxiety, Patient on controlled substance contract. Please do NOT fill until 09/23/2020, # 112 tablet, 0 Refills, Maintenance, 11/18/20 21:02:00 EDT, Tablet, [facility]/pharmacy #[id number], Partial fill upon patient... Start Date: 11/18/20 Status: Ordered diclofenac 1% topical gel = 1 Gm, Topically, 4 times a day, FOR PAIN., # 100 Gm, 1 Refills, [id number], 30, APPLY 1 GM TOPICALLY 4 TIMES A DAY FOR PAIN, 153, cm, 06/07/21 11:07:00 EST, Height, 105, kg, 05/31/21 15:15:00 EST, Dry Weight Start Date: 08/05/21 Status: Ordered Dilaudid 2 mg oral tablet 1 tablet = 2 mg, By Mouth, 2 times a day, PRN Pain , Severe, checked masspat, # 56 tablet, 0 Refills, Maintenance, 04/07/22 21:32:00 EST, Tablet, [facility] #[id number], Partial fill upon patient request if the prescription is for a schedule II o... Start Date: 04/07/22 Status: Ordered doxycycline monohydrate 100 mg oral capsule 1 capsule = 100 mg, By Mouth, 2 times a day, for 10 days, take with food, # 20 capsule, 0 Refills, Acute 05/05/22 16:17:00 EST, 04/25/22 16:17:00 EST, Capsule, [facility] #[id number], Partial fill upon patient request if the prescription is for a... Start Date: 04/25/22 Stop Date: 05/05/22 Status: Ordered Estrace Vaginal Cream 0.1 mg/g = 2 Gm, Vaginally, Daily at bedtime, 2g PV daily at bedtime x 2 weeks, then 1g PV 1-3x per week, # 42.5 Gm, 5 Refills, Maintenance, 11/09/21 11:17:00 EDT, [facility] #[id number], Partial fill upon patient request if the prescription is for a sche... Start Date: 11/09/21 Status: Ordered Estradiol Patch 0.0375 mg/24 hours twice weekly transdermal film, extended release See Instructions, APPLY 1 PATCH TOPICALLY TWICE WEEKLY DIRECTED, # 8 patch, 6 Refills, Maintenance, 03/23/22 16:10:00 EST, [facility] #[id number], 28, APPLY 1 PATCH TOPICALLY TWICE WEEKLY DIRECTED, 153, cm, 01/04/22 13:15:00 EDT, Height, 11... Start Date: 03/23/22 Status: Ordered Flonase 50 mcg/inh nasal spray 1 sprays, Nares, Both, 2 times a day, # 16 Gm, 0 Refills, Maintenance, 04/19/22 14:04:00 EST, [place], [facility] #[id number], Partial fill upon patient request if the prescription is for a schedule II opioid drug., 1 sprays Nares, Both 2 times a d... Start Date: 04/19/22 Status: Ordered fluconazole 150 mg oral tablet 1 tablet = 150 mg, By Mouth, Once, PRN vaginal yeast infection, # 1 tablet, 0 Refills, Soft Stop, 03/15/22 10:42:00 EST, Tablet, [facility] #[id number], Partial fill upon patient request if the prescription is for a schedule II opioid drug., 153,... Start Date: 03/15/22 Status: Ordered gabapentin 800 mg oral tablet 1 tablet, By Mouth, 4 times a day, # 360 tablet, 1 Refills, Maintenance, 04/19/22 12:59:00 EST, [facility] #[id number], 153, cm, 01/04/22 13:15:00 EDT, Height, 113.9, [...] capsule, 1 Refills, Maintenance, 12/08/21 10:10:00 EDT, [facility] #[id number], 153, cm, 10/08/21 13:23:00 EDT, Height, 113.9,kg, [...] 1 Refills, Maintenance, 04/28/22 13:51:00 EST, Tablet, [facility] #[id number], Partial fill upon patient request if the prescription is for a schedule II opioid drug., 153, cm... Start Date: 04/28/22 Status: Ordered lidocaine 4% topical cream 1 application, Topically, 3 times a day, PRN pain of forearms, # 30 Gm, 1 Refills, Acute 06/23/22 16:24:00 EST, 04/25/22 16:23:00 EST, Cream, [facility] #[id number], Partial fill upon patient request if the prescription is for a schedule II opioi... Start Date: 04/25/22 Stop Date: 06/23/22 Status: Ordered meloxicam 15 mg oral tablet 1/2 TO 1 TABLET, By Mouth, Daily, PRN NEEDED FOR MODERATE PAIN, # 30 tablet, 5 Refills, Maintenance, 01/10/22 20:40:00 EDT, [facility] #[id number], 153, cm, 01/04/22 13:15:00 EDT, Height, 113.9, [...] capsule, 1 Refills, Maintenance, 04/19/22 12:41:00 EST, [facility] #[id number], 153, cm, 01/04/22 13:15:00 EDT, Height, 113.9, kg, 10/08/21 13:23:00 EDT, Dry Weight Start Date: 04/19/22 Status: Ordered ondansetron 4 mg oral tablet 1 tablet, By Mouth, Every 8 hours, PRN NEEDED FOR NAUSEA OR VOMITING, # 30 tablet, 1 Refills, Maintenance, 04/14/22 21:15:00 EST, [facility] #[id number], 153, cm, 01/04/22 13:15:00 EDT, Height, 113.9, kg, 10/08/21 13:23:00 EDT, Dry Weight Start Date: 04/14/22 Status: Ordered oxybutynin 5 mg oral tablet 1 tablet, By Mouth, 3 times a day, # 270 tablet, 1 Refills, 01/10/22 10:29:00 EDT, [facility] #[id number], 153, cm, 01/04/22 13:15:00 EDT, Height, 113.9, [...] 04/14/22 21:16:00 EST, Route to Pharmacy Electronically, [facility] #[id number], Partial fill upon patient request if the... [...] Care Physician Member Role: PCP Address: Address: [address] [place] [address] Adult [facility] [place] [address]- Care Team Related Persons Name: RODOLFO SHEIKH Address: home [address] [address] Name: CHIARA TEE Address: home [address] [place] [id number]
--- OUTSIDE RECORDS SUMMARY | 2022-12-30 08:14 | XMS_ITS | Continuity of Care Document ---
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 Date(s): 10/26/22 - 11/25/22 [facility] [address] [place] [address], [address] [place] [address]- Allergies, Adverse Reactions, Alerts Substance Reaction Severity [...] 8.5 Gm,0 Refills, Maintenance, 12/22/21 10:40:00 EDT, [facility] #[id number], 2 puffs Inhalation Every 4 hours,PRN: NEEDED FOR WHEEZING/cough/shortness... Start Date: 12/22/21 Status: Ordered albuterol 0.083% inhalation solution 3 mL = 2.5 mg, Inhalation, Every 4 hours, PRN for wheezing/cough/shortness of breath, # 25 each, 0 Refills, Maintenance, 06/29/22 13:08:00 EDT, Solution, [facility] #[id number], Partial fill upon patient request if the prescription is for a sched... Start Date: 06/29/22 Status: Ordered [place] Saline Mist 0.65% nasal spray 2 sprays, Nares, Both, 4 times a day, # 1 each, 0 Refills, Maintenance, 02/04/22 13:32:00 EDT, [facility] #[id number], Partial fill upon patient request if the [...] tablet, 0 Refills, Maintenance, 12/27/21 13:43:00 EDT, [facility] #[id number], 153, cm, 10/08/21 13:23:00 EDT, Height, 113.9, kg, 10/08/21 13:23:00EDT, Dry Weight Start Date: 12/27/21 Status: Ordered chlorhexidine 2% topical liquid See Instructions, 1 application to bilateral forearms twice weekly, # 120 mL, 3 Refills, Soft Stop,06/17/22 11:06:00 EST, Liquid, [facility] #[id number], Partial fill upon patient request if the prescription is for a schedule II opioid drug., 1... Start Date: 06/17/22 Status: Ordered chlorhexidine 4% topical soap See Instructions, apply topically twice weekly to skin on forearms, # 120 mL, 2 Refills, Soft Stop,06/17/22 16:03:00 EST, [facility] #[id number], Partial fill upon patient request if the [...] 11/18/20 21:02:00 EDT, Tablet, [facility]/pharmacy #[id number], Partial fill upon patient... Start Date: 11/18/20 Status: Ordered diclofenac 1% topical gel = 1 Gm, Topically, 4 times a day, FOR PAIN., # 100 Gm, 1 Refills, [id number], 30, APPLY 1 GM TOPICALLY 4 TIMES A DAY FOR PAIN, 153, cm, 06/07/21 11:07:00 EST, Height, 105, kg, 05/31/21 15:15:00 EST, Dry Weight Start Date: 08/05/21 Status: Ordered Dilaudid 2 mg oral tablet 1 tablet = 2 mg, By Mouth, 2 times a day, PRN Pain , Severe, checked masspat, # 56 tablet, 0 Refills, Maintenance, 10/25/22 21:47:00 EDT, Tablet, [facility] #[id number], Partial fill upon patient request if the prescription is for a schedule II o... Start Date: 10/25/22 Status: Ordered Estrace Vaginal Cream 0.1 mg/g = 2 Gm, Vaginally, Daily at bedtime, 2g PV daily at bedtime x 2 weeks, then 1g PV 1-3x per week, # 42.5 Gm, 5 Refills, Maintenance, 11/09/21 11:17:00 EDT, [facility] #[id number], Partial fill upon patient request if the prescription is for a sche... Start Date: 11/09/21 Status: Ordered Estradiol Patch 0.0375 mg/24 hours twice weekly transdermal film, extended release See Instructions, APPLY 1 PATCH TOPICALLY TWICE WEEKLY DIRECTED, # 8 patch, 2 Refills, Maintenance, 09/22/22 21:55:00 EDT, [facility] #[id number], 28, APPLY 1 PATCH TOPICALLY TWICE WEEKLY DIRECTED, 153, cm, 06/17/22 10:53:00 EST, Height, 10... Start Date: 09/22/22 Status: Ordered fluconazole 150 mg oral tablet 1 tablet = 150 mg, By Mouth, Once, PRN vaginal yeast infection, repeat dose in 72 hours if symptomsnot resolved, # 2 tablet, 0 Refills, Soft Stop, 11/08/22 15:31:00 EDT, Tablet, [facility]#[id number], Partial fill upon patient request if the pr... Start Date: 11/08/22 Status: Ordered fluticasone 50 mcg/inh nasal spray See Instructions, SHAKE LIQUID AND USE 1 SPRAY IN EACH NOSTRIL TWICE DAILY, # 16 Gm, 1 Refills, Maintenance, 05/18/22 13:57:00 EST, [facility] #[id number], 30, SHAKE LIQUID AND USE 1 SPRAY IN EACH NOSTRIL TWICE DAILY, 153, cm, 04/25/22 16:23:00 E... Start Date: 05/18/22 Status: Ordered gabapentin 800 mg oral tablet 1 tablet, By Mouth, 4 times a day, # 360 tablet, 1 Refills, Maintenance, 10/25/22 21:47:00 EDT, [facility] #[id number], 153, cm, 06/17/22 10:53:00 EST, Height, 109, [...] capsule, 1 Refills, Maintenance, 11/15/22 11:13:00 EDT, [facility] #[id number], 154, cm, 10/29/22 14:42:00 EDT, Height, 109, [...] 1 Refills, Maintenance, 04/28/22 13:51:00 EST, Tablet, [facility] #[id number], Partial fill upon patient request if the prescription is for a schedule II opioid drug., 153, cm... Start Date: 04/28/22 Status: Ordered lidocaine 4% topical cream 1 application, Topically, 3 times a day, PRN Pain , Mild, # 30 Gm, 1 Refills, Maintenance, 06/24/2315:24:00 EST, Cream, [facility] #[id number], Partial fill upon patient request if the prescription is for a schedule II opioid drug., 1 applicatio... Start Date: 06/23/22 Status: Ordered meloxicam 15 mg oral tablet 1/2 TO 1 TABLET, By Mouth, Daily, PRN NEEDED FOR MODERATE PAIN, # 30 tablet, 5 Refills, Maintenance, 01/10/22 20:40:00 EDT, [facility] #[id number], 153, cm, 01/04/22 13:15:00 EDT, Height, 113.9, [...] capsule, 1 Refills, Maintenance, 07/26/22 14:24:00 EDT, [facility] #[id number], 153, cm, 06/17/22 10:53:00 EST, Height, 109, kg, 06/17/22 10:53:00 EST, Dry Weight Start Date: 07/26/22 Status: Ordered ondansetron 4 mg oral tablet 1 tablet, By Mouth, Every 8 hours, PRN NEEDED FOR NAUSEA OR VOMITING, # 30 tablet, 1 Refills, Maintenance, 10/27/22 23:08:00 EDT, [facility] #[id number], 153, cm, 06/17/22 10:53:00 EST, Height, 109, kg, 06/17/22 10:53:00 EST, Dry Weight Start Date: 10/27/22 Status: Ordered oxybutynin 5 mg oral tablet 1 tablet, By Mouth, 3 times a day, # 270 tablet, 1 Refills, Maintenance, 10/04/22 20:44:00 EDT, [facility] #[id number], 153, cm, 06/17/22 10:53:00 EST, Height, 109, [...] 11/18/22 16:07:00 EDT, Route to Pharmacy Electronically, [facility] #[id number], Partial fill upon patient request if the prescrip... Start Date: 11/18/22 Status: Ordered traZODone 50 mg oral tablet 1-2 tablet, By Mouth, Daily, one hour prior to bedtime. dose increase, # 60 tablet, Refills 2, Tot.Refills 2, Maintenance, 07/01/22 14:21:00 EDT, Route to Pharmacy Electronically, [facility] #[id number], Partial fill upon patient request if the... Start Date: 07/01/22 Status: Ordered triamcinolone 0.1% topical cream 1 application, Topically, 3 times a day, PRN arm rash, # 30 Gm, 1 Refills, Acute 06/08/23 9:53:00 EST, 06/08/22 9:53:00 EST, Cream, [facility] #[id number], Partial fill upon patient request if the [...] Primary Care Member Role: PCP Address: Address: [address] [place] [address]- Care Team Related Persons Name: RODOLFO SHEIKH Address: home [address] [facility] [address] [place] [address] Name: CHIARA TEE Address: home [address] [place] [address] [address] [place] [address]
--- OUTSIDE RECORDS SUMMARY | 2022-12-30 08:14 | XMS_ITS | Continuity of Care Document ---
Author Name Unknown Organization [facility] Address [address] [place] [address]- Care Team Providers Care Botany Technician Name Role Phone Kaiden Chirinos MD Primary Care Physician Encounter [facility] Date(s): 12/22/21 - 01/21/22 [facility] [address] [place], [place] [address] Allergies, Adverse Reactions, Alerts Substance [...] 8.5 Gm,0 Refills, Maintenance, 12/22/21 10:40:00 EDT, [facility] #[id number], 2 puffs Inhalation Every 4 hours,PRN: NEEDED FOR WHEEZING/cough/shortness... Start Date: 12/22/21 Status: Ordered albuterol 0.083% inhalation solution 3 mL = 2.5 mg, Inhalation, Every 4 hours, PRN for wheezing/cough/shortness of breath, # 25 each, 0 Refills, Maintenance, 10/14/21 22:10:00 EDT, Solution, [facility] #[id number], Partial fill upon patient request if the [...] tablet, 0 Refills, Maintenance, 12/27/21 13:43:00 EDT, [facility] #[id number], 153, cm, 10/08/21 13:23:00 EDT, Height, 113.9, kg, 10/08/21 13:23:00EDT, Dry Weight Start Date: 12/27/21 Status: Ordered clonazePAM 0.5 mg oral tablet 1 tablet = 0.5 mg, By Mouth, 4 times a day, PRN Anxiety, Patient on controlled substance contract. Please do NOT fill until 09/23/2020, # 112 tablet, 0 Refills, Maintenance, 11/18/20 21:02:00 EDT, Tablet, [facility]/pharmacy #[id number], Partial fill upon patient... Start Date: 11/18/20 Status: Ordered diclofenac 1% topical gel = 1 Gm, Topically, 4 times a day, FOR PAIN., # 100 Gm, 1 Refills, [facility], 30, APPLY 1 GM TOPICALLY 4 TIMES A DAY FOR PAIN, 153, cm, 06/07/21 11:07:00 EST, Height, 105, kg, 05/31/21 15:15:00 EST, Dry Weight Start Date: 08/05/21 Status: Ordered Dilaudid 2 mg oral tablet 1 tablet = 2 mg, By Mouth, 2 times a day, PRN Pain , Severe, checked masspat, # 28 tablet, 0 Refills, Maintenance, 01/18/22 17:28:00 EDT, Tablet, [facility] #[id number], Partial fill upon patient request if the prescription is for a schedule II o... Start Date: 01/18/22 Status: Ordered Estrace Vaginal Cream 0.1 mg/g = 2 Gm, Vaginally, Daily at bedtime, 2g PV daily at bedtime x 2 weeks, then 1g PV 1-3x per week, # 42.5 Gm, 5 Refills, Maintenance, 11/09/21 11:17:00 EDT, [facility] #[id number], Partial fill upon patient request if the prescription is for a sche... Start Date: 11/09/21 Status: Ordered estradiol 0.0375 mg/24 hours twice weekly transdermal film, extended release See Instructions, 1 patch Topically, change patch twice a week, # 1 pack/packet, 1 Refills, Maintenance, 12/07/21 10:42:00 EDT, [facility] #[id number], Partial fill upon patient request if the prescription is for a schedule II opioid drug., 153,... Start Date: 12/07/21 Status: Ordered gabapentin 800 mg oral tablet See Instructions, TAKE 1 TABLET BY MOUTH FOUR TIMES DAILY, # 360 tablet, 0 Refills, [facility] #[id number], 153, cm, 10/08/21 13:23:00 EDT, Height, 113.9, [...] capsule, 1 Refills, Maintenance, 12/08/21 10:10:00 EDT, [facility] #[id number], 153, cm, 10/08/21 13:23:00 EDT, Height, 113.9,kg, [...] 1 Refills, Maintenance, 11/30/21 15:44:00 EDT, Tablet, [facility] #[id number], [place]... Start Date: 11/30/21 Status: Ordered levothyroxine 0.112 mg oral tablet 1 tablet, By Mouth, Daily, AVOID ANTACIDS, CALCIUM, OR IRON FOR AT LEAST 4 HOURS BEFORE OR 4 HOURS AFTER; ON AN ON AN EMPTY STOMACH, # 90 tablet, 0 Refills, Maintenance, 01/20/22 17:46:00 EDT, [facility] #[id number], 153, cm, 01/04/22 13:15:00 ED... Start Date: 01/20/22 Status: Ordered lidocaine 3% topical gel 1 application, Topically, 2 times a day, PRN as needed for pain, to replace 2% topical, # 28.5 Gm, 2 Refills, Acute 03/29/22 14:17:00 EST, 12/28/21 14:17:00 EDT, Gel, [facility] #[id number], Partial fill upon patient request if the prescription i... Start Date: 12/28/21 Stop Date: 03/29/22 Status: Ordered lidocaine 4% topical cream 1 application, Topically, 2 times a day, PRN Pain , Mild, # 30 Gm, 1 Refills, Acute 01/27/22 17:31:00 EDT, 12/28/21 17:31:00 EDT, Cream, [facility] #[id number], Partial fill upon patient requestif the prescription is for a schedule II opioid cedrick... Start Date: 12/28/21 Stop Date: 01/27/22 Status: Ordered meloxicam 15 mg oral tablet 1/2 TO 1 TABLET, By Mouth, Daily, PRN NEEDED FOR MODERATE PAIN, # 30 tablet, 5 Refills, Maintenance, 01/10/22 20:40:00 EDT, [facility] #[id number], 153, cm, 01/04/22 13:15:00 EDT, Height, 113.9, [...] capsule, 0 Refills, Maintenance, 01/16/22 8:28:00 EDT, [facility] #[id number], 153, cm, 01/04/22 13:15:00 EDT, Height, 113.9, kg, 10/08/21 13:23:00 EDT, Dry Weight Start Date: 01/16/22 Status: Ordered ondansetron 4 mg oral tablet 1 tablet = 4 mg, By Mouth, Every 8 hours, PRN Nausea & Vomiting, # 30 tablet, 1 Refills, Maintenance, 11/10/21 14:47:00 EDT, [facility] #[id number], 153, cm, 10/08/21 13:23:00 EDT, Height, 113.9, kg, 10/08/21 13:23:00 EDT, Dry Weight Start Date: 11/10/21 Status: Ordered oxybutynin 5 mg oral tablet 1 tablet, By Mouth, 3 times a day, # 270 tablet, 1 Refills, 01/10/22 10:29:00 EDT, [facility] #[id number], 153, cm, 01/04/22 13:15:00 EDT, Height, 113.9, [...] Date: 06/07/21 Status: Ordered Problem List Condition Confirmation Course [...] Sex Patient Care team information Personnel Name: Kaiden Chirinos MD Address: Address: [address] [place] [address] Adult [facility] Pediatric Medicine [address]
--- OUTSIDE RECORDS SUMMARY | 2022-12-30 08:14 | XMS_ITS | Continuity of Care Document ---
Author Name Unknown Organization [facility] Address [address] [place] [address]- Care Team Providers Care Headhunter Name Role Phone Candis CARDENAS, Kaiden Villalta Primary Care Physician [phone] Encounter [facility] ACCT R [id number] Date(s): 08/05/21 - 09/04/21 [facility] [address] [place], [place] [address] Allergies, Adverse Reactions, Alerts Substance [...] # 8.5 each, 0 Refills, [id number], 20, INHALE 2 PUFFS BY MOUTH EVERY 4 HOURS NEEDED FOR WHEEZING, 160, cm, 03/30/21 10:47:00 EST, Height, 104.6, kg, 12/04/20 10:52:00 EDT, Dry Weight Start Date: 04/28/21 Status: Ordered amitriptyline 10 mg oral tablet 10 mg, 1, tablet, By Mouth, Daily at bedtime, # 90 tablet, Refills 1, Tot. Refills 1, Maintenance, 04/15/22 12:25:00 EDT, Route to Pharmacy Electronically, [facility] #[id number], Partial fill upon patient request if the prescription is for a jasmin... Start Date: 07/30/21 Status: Ordered benzonatate 100 mg oral capsule 2 capsule, By Mouth, 3 times a day, PRN NEEDED FOR COUGH, # 30 capsule, 1 Refills, Physician Stop 03/19/22 17:38:00 EST, 02/19/22 16:55:00 EDT, [facility]/pharmacy #[id number], 160, cm, 12/04/20 10:52:00 EDT, Height, 104.6, kg, 12/04/20 10:52:00 EDT, Dry Weight Start Date: 02/19/22 Stop Date: 03/19/22 Status: Ordered benzonatate 100 mg oral capsule 2 capsule, By Mouth, 3 times a day, PRN NEEDED FOR COUGH, # 30 capsule, 1 Refills, Physician Stop 02/19/22 16:55:00 EDT, 02/19/21 16:54:00 EDT, [facility]/pharmacy #[id number], 160, cm, 12/04/20 10:52:00 EDT, Height, 104.6, kg, 12/04/20 10:52:00 EDT, Dry Weight Start Date: 02/19/21 Stop Date: 02/19/22 Status: Ordered clonazePAM 0.5 mg oral tablet 1 tablet = 0.5 mg, By Mouth, 4 times a day, PRN Anxiety, Patient on controlled substance contract. Please do NOT fill until 09/23/2020, # 112 tablet, 0 Refills, Maintenance, 11/18/20 21:02:00 EDT, Tablet, [facility]/pharmacy #[id number], Partial fill upon patient... Start Date: 11/18/20 Status: Ordered diclofenac 1% topical gel = 1 Gm, Topically, 4 times a day, FOR PAIN., # 100 Gm, 1 Refills, [id number], 30, APPLY 1 GM TOPICALLY 4 TIMES A DAY FOR PAIN, 153, cm, 06/07/21 11:07:00 EST, Height, 105, kg, 05/31/21 15:15:00 EST, Dry Weight Start Date: 08/05/21 Status: Ordered Dilaudid 2 mg oral tablet 1 tablet = 2 mg, By Mouth, 2 times a day, PRN Pain , Severe, # 28 tablet, 0 Refills, Maintenance, 08/09/21 22:27:00 EDT, Tablet, [facility] #[id number], Partial fill upon patient request if the prescription is for a schedule II opioid drug., 153,... Start Date: 08/09/21 Status: Ordered Famotidine 0 Refills, Maintenance, 04/07/19 16:11:00 EST Start Date: 04/07/19 Status: Ordered gabapentin 800 mg oral tablet 1 tablet, By Mouth, 4 times a day, # 360 tablet, 1 Refills, [id number], 160, cm, 03/30/21 10:47:00 EST, Height, 104.6, [...] FOR ITCHING, # 90 capsule, 1 Refills, [id number], 153, cm, 06/07/21 11:07:00 EST, Height, 105, [...] 1 Refills, Maintenance, 07/30/21 12:25:00 EDT, Tablet, [facility] #[id number], Partial fill upon patient request if the prescription is for a schedule II opioid drug... Start Date: 07/30/21 Status: Ordered omeprazole 20 mg oral enteric coated capsule 1 capsule, By Mouth, Daily, # 90 capsule, 1 Refills, [id number], 160, cm, 03/30/21 10:47:00 EST, Height, 104.6, kg, 12/04/20 10:52:00 EDT, Dry Weight Start Date: 03/31/21 Status: Ordered ondansetron 4 mg oral tablet 1 tablet = 4 mg, By Mouth, Every 8 hours, PRN Nausea & Vomiting, # 30 tablet, 1 Refills, Maintenance, 08/12/21 13:26:00 EDT, [facility] #[id number], 153, cm, 08/10/21 11:19:00 EDT, Height, 105, kg, 05/31/21 15:15:00 EST, Dry Weight Start Date: 08/12/21 Status: Ordered oxybutynin 5 mg oral tablet 1 tablet, By Mouth, 3 times a day, dose increase, # 270 tablet, 1 Refills, Maintenance, 03/19/21 17:40:00 EST, [facility]/pharmacy #[id number], 160, cm, 12/04/20 10:52:00 EDT, Height, 104.6, kg, 12/04/20 10:52:00EDT, Dry Weight Start Date: 03/19/21 Status: Ordered Right ankle stirrup air cast Right ankle stirrup air cast, See Instructions, # 1 each, Refills 0, Tot. Refills 0, Maintenance, To be worn on ambulation, 06/07/21 11:32:00 EST, Supply Start Date: 06/07/21 Status: Ordered sertraline 100 mg oral tablet 2 tablet = 200 mg, By Mouth, Daily, # 28 tablet, 0 Refills, Maintenance, 08/13/21 16:34:00 EDT, Tablet, [facility] #[id number], Partial fill upon patient request if the prescription is for a schedule II opioid drug., 153 cm, 08/10/21 11:19:00 ED... Start Date: 08/13/21 Status: Ordered traZODone 150 mg oral tablet 1.5 tablet = 225 mg, By Mouth, Daily at bedtime, # 135 tablet, 1 Refills, Maintenance, 07/30/21 12:25:00 EDT, Tablet, [facility] #[id number], Partial fill upon patient request if the prescription is for a schedule II opioid drug., [address], ... Start Date: 07/30/21 Status: Ordered Vitamin D3 50,000 intl units oral capsule TAKE 1 CAPSULE BY MOUTH ONCE A WEEK Start Date: 09/07/20 Status: Ordered ZyrTEC 10 mg oral tablet 1 tablet = 10 mg, By Mouth, Daily, # 90 tablet, 1 Refills, Maintenance, 07/30/21 12:22:00 EDT, Tablet, [facility] #[id number], Partial fill upon patient request if the prescription is for a schedule II opioid drug., 153[address]ott, 06/07/21 11:07:00 EST... Start Date: 07/30/21 Status: [...]
--- OUTSIDE RECORDS SUMMARY | 2022-12-30 08:14 | XMS_ITS | Continuity of Care Document ---
Author Name Unknown Organization [facility] Address [address] [place] [address]- Care Team Providers Care Volcanology Teacher Name Role Phone Candis CARDENAS, Kaiden Villalta Primary Care Physician Encounter [facility] Date(s): 06/30/22 - 07/30/22 [facility]/[address] [address]- [place] Allergies, Adverse Reactions, Alerts Substance Reaction Severity [...] 8.5 Gm,0 Refills, Maintenance, 12/22/21 10:40:00 T, [facility] #[id number], 2 puffs Inhalation Every 4 hours,PRN: NEEDED FOR WHEEZING/cough/shortness... Start Date: 12/22/21 Status: Ordered albuterol 0.083% inhalation solution 3 mL = 2.5 mg, Inhalation, Every 4 hours, PRN for wheezing/cough/shortness of breath, # 25 each, 0 Refills, Maintenance, 06/29/22 13:08:00 EDT, Solution, [facility] #[id number], Partial fill upon patient request if the prescription is for a sched... Start Date: 06/29/22 Status: Ordered [place] Saline Mist 0.65% nasal spray 2 sprays, Nares, Both, 4 times a day, # 1 each, 0 Refills, Maintenance, 02/04/22 13:32:00 EDT, [facility] #[id number], Partial fill upon patient request if the [...] tablet, 0 Refills, Maintenance, 12/27/21 13:43:00 EDT, [facility] #[id number], 153, cm, 10/08/21 13:23:00 EDT, Height, 113.9, kg, 10/08/21 13:23:00EDT, Dry Weight Start Date: 12/27/21 Status: Ordered chlorhexidine 2% topical liquid See Instructions, 1 application to bilateral forearms twice weekly, # 120 mL, 3 Refills, Soft Stop,06/17/22 11:06:00 EST, Liquid, [facility] #[id number], Partial fill upon patient request if the prescription is for a schedule II opioid drug., 1... Start Date: 06/17/22 Status: Ordered chlorhexidine 4% topical soap See Instructions, apply topically twice weekly to skin on forearms, # 120 mL, 2 Refills, Soft Stop,06/17/22 16:03:00 EST, [facility] #[id number], Partial fill upon patient request if the prescription is for a schedule II opioid drug., apply topi... Start Date: 06/17/22 Status: Ordered clonazePAM 0.5 mg oral tablet 1 tablet = 0.5 mg, By Mouth, 4 times a day, PRN Anxiety, Patient on controlled substance contract. Please do NOT fill until 09/23/2020, # 112 tablet, 0 Refills, Maintenance, 11/18/20 21:02:00 EDT, Tablet, [facility]/pharmacy #[id number], Partial fill upon patient... Start Date: 11/18/20 Status: Ordered diclofenac 1% topical gel = 1 Gm, Topically, 4 times a day, FOR PAIN., # 100 Gm, 1 Refills, [id number], 30, APPLY 1 GM TOPICALLY 4 TIMES A DAY FOR PAIN, 153, cm, 06/07/21 11:07:00 EST, Height, 105, kg, 05/31/21 15:15:00 EST, Dry Weight Start Date: 08/05/21 Status: Ordered Dilaudid 2 mg oral tablet 1 tablet = 2 mg, By Mouth, 2 times a day, PRN Pain , Severe, checked masspat, # 56 tablet, 0 Refills, Maintenance, 07/28/22 13:10:00 EDT, Tablet, [facility] #[id number], Partial fill upon patient request if the prescription is for a schedule II o... Start Date: 07/28/22 Status: Ordered Estrace Vaginal Cream 0.1 mg/g = 2 Gm, Vaginally, Daily at bedtime, 2g PV daily at bedtime x 2 weeks, then 1g PV 1-3x per week, # 42.5 Gm, 5 Refills, Maintenance, 11/09/21 11:17:00 EDT, [facility] #[id number], Partial fill upon patient request if the prescription is for a sche... Start Date: 11/09/21 Status: Ordered Estradiol Patch 0.0375 mg/24 hours twice weekly transdermal film, extended release See Instructions, APPLY 1 PATCH TOPICALLY TWICE WEEKLY DIRECTED, # 8 patch, 6 Refills, Maintenance, 03/23/22 16:10:00 EST, [facility] #[id number], 28, APPLY 1 PATCH TOPICALLY TWICE WEEKLY DIRECTED, 153, cm, 01/04/22 13:15:00 EDT, Height, 11... Start Date: 03/23/22 Status: Ordered fluconazole 150 mg oral tablet 1 tablet = 150 mg, By Mouth, Once, PRN vaginal yeast infection, # 1 tablet, 0 Refills, Soft Stop, 03/15/22 10:42:00 EST, Tablet, [facility] #[id number], Partial fill upon patient request if the prescription is for a schedule II opioid drug., 153,... Start Date: 03/15/22 Status: Ordered fluticasone 50 mcg/inh nasal spray See Instructions, SHAKE LIQUID AND USE 1 SPRAY IN EACH NOSTRIL TWICE DAILY, # 16 Gm, 1 Refills, Maintenance, 05/18/22 13:57:00 EST, [facility] #[id number], 30, SHAKE LIQUID AND USE 1 SPRAY IN EACH NOSTRIL TWICE DAILY, 153, cm, 04/25/22 16:23:00 E... Start Date: 05/18/22 Status: Ordered gabapentin 800 mg oral tablet 1 tablet, By Mouth, 4 times a day, # 360 tablet, 1 Refills, Maintenance, 04/19/22 12:59:00 EST, [facility] #[id number], 153, cm, 01/04/22 13:15:00 EDT, Height, 113.9, [...] capsule, 1 Refills, Maintenance, 07/18/22 9:45:00 EDT, [facility] #[id number], 153, cm, 06/17/22 10:53:00 EST, Height, 109, [...] 1 Refills, Maintenance, 04/28/22 13:51:00 EST, Tablet, [facility] #[id number], Partial fill upon patient request if the prescription is for a schedule II opioid drug., 153, cm... Start Date: 04/28/22 Status: Ordered lidocaine 4% topical cream 1 application, Topically, 3 times a day, PRN Pain , Mild, # 30 Gm, 1 Refills, Maintenance, 06/24/2315:24:00 EST, Cream, [facility] #[id number], Partial fill upon patient request if the prescription is for a schedule II opioid drug., 1 applicatio... Start Date: 06/23/22 Status: Ordered meloxicam 15 mg oral tablet 1/2 TO 1 TABLET, By Mouth, Daily, PRN NEEDED FOR MODERATE PAIN, # 30 tablet, 5 Refills, Maintenance, 01/10/22 20:40:00 EDT, [facility] #[id number], 153, cm, 01/04/22 13:15:00 EDT, Height, 113.9, [...] capsule, 1 Refills, Maintenance, 07/26/22 14:24:00 EDT, [facility] #[id number], 153, cm, 06/17/22 10:53:00 EST, Height, 109, kg, 06/17/22 10:53:00 EST, Dry Weight Start Date: 07/26/22 Status: Ordered ondansetron 4 mg oral tablet 1 tablet, By Mouth, Every 8 hours, PRN NEEDED FOR NAUSEA OR VOMITING, # 30 tablet, 1 Refills, Maintenance, 06/14/22 10:29:00 EST, [facility] #[id number], 153, cm, 06/08/22 9:37:00 EST, Height, 109, kg, 04/25/22 15:54:00 EST, Dry Weight Start Date: 06/14/22 Status: Ordered oxybutynin 5 mg oral tablet 1 tablet, By Mouth, 3 times a day, # 270 tablet, 0 Refills, Maintenance, 07/05/22 8:13:00 EDT, [facility] #[id number], 153, cm, 06/17/22 10:53:00 EST, Height, 109, [...] 07/01/22 14:21:00 EDT, Route to Pharmacy Electronically, [facility] #[id number], Partial fill upon patient request if the... Start Date: 07/01/22 Status: Ordered triamcinolone 0.1% topical cream 1 application, Topically, 3 times a day, PRN arm rash, # 30 Gm, 1 Refills, Acute 06/08/23 9:53:00 EST, 06/08/22 9:53:00 EST, Cream, [facility] #[id number], Partial fill upon patient request if the [...] Care Physician Member Role: PCP Address: Address: [address] [place] [address] Adult [facility] [place] [address]- Care Team Related Persons Name: AGUILAR RODOLFO Address: home [address] [facility] [address] [place] [id number] Name: CHIARA TEE Address: home [address] [address] [place] [address]
--- OUTSIDE RECORDS SUMMARY | 2022-12-30 08:14 | XMS_ITS | Continuity of Care Document ---
Author Name Unknown Organization [facility] Address [address] [place], [place] [address]sarah espana, [address] [place] [address]- Care Team Providers Care Manager Customer Service Name Role Phone Candis CARDENAS, Kaiden Villalta Primary Care Physician Encounter [facility] Date(s): 03/17/22 - 04/16/22 [facility] [address] [place] [address] Drive, [address] [place] [address]- Allergies, Adverse Reactions, Alerts Substance Reaction Severity [...] 8.5 Gm,0 Refills, Maintenance, 12/22/21 10:40:00 EDT, [facility] #[id number], 2 puffs Inhalation Every 4 hours,PRN: NEEDED FOR WHEEZING/cough/shortness... Start Date: 12/22/21 Status: Ordered albuterol 0.083% inhalation solution 3 mL = 2.5 mg, Inhalation, Every 4 hours, PRN for wheezing/cough/shortness of breath, # 25 each, 0 Refills, Maintenance, 10/14/21 22:10:00 EDT, Solution, [facility] #[id number], Partial fill upon patient request if the prescription is for a sched... Start Date: 10/14/21 Status: Ordered [place] Saline Mist 0.65% nasal spray 2 sprays, Nares, Both, 4 times a day, # 1 each, 0 Refills, Maintenance, 02/04/22 13:32:00 EDT, [facility] #[id number], Partial fill upon patient request if the [...] tablet, 0 Refills, Maintenance, 12/27/21 13:43:00 EDT, [facility] #[id number], 153, cm, 10/08/21 13:23:00 EDT, Height, 113.9, kg, 10/08/21 13:23:00EDT, Dry Weight Start Date: 12/27/21 Status: Ordered clonazePAM 0.5 mg oral tablet 1 tablet = 0.5 mg, By Mouth, 4 times a day, PRN Anxiety, Patient on controlled substance contract. Please do NOT fill until 09/23/2020, # 112 tablet, 0 Refills, Maintenance, 11/18/20 21:02:00 EDT, Tablet, [facility]/pharmacy #[id number], Partial fill upon patient... Start Date: 11/18/20 Status: Ordered diclofenac 1% topical gel = 1 Gm, Topically, 4 times a day, FOR PAIN., # 100 Gm, 1 Refills, [facility], 30, APPLY 1 GM TOPICALLY 4 TIMES A DAY FOR PAIN, 153, cm, 06/07/21 11:07:00 EST, Height, 105, kg, 05/31/21 15:15:00 EST, Dry Weight Start Date: 08/05/21 Status: Ordered Dilaudid 2 mg oral tablet 1 tablet = 2 mg, By Mouth, 2 times a day, PRN Pain , Severe, checked masspat, # 56 tablet, 0 Refills, Maintenance, 04/07/22 21:32:00 EST, Tablet, [facility] #[id number], Partial fill upon patient request if the prescription is for a schedule II o... Start Date: 04/07/22 Status: Ordered Estrace Vaginal Cream 0.1 mg/g = 2 Gm, Vaginally, Daily at bedtime, 2g PV daily at bedtime x 2 weeks, then 1g PV 1-3x per week, # 42.5 Gm, 5 Refills, Maintenance, 11/09/21 11:17:00 EDT, [facility] #[id number], Partial fill upon patient request if the prescription is for a sche... Start Date: 11/09/21 Status: Ordered Estradiol Patch 0.0375 mg/24 hours twice weekly transdermal film, extended release See Instructions, APPLY 1 PATCH TOPICALLY TWICE WEEKLY DIRECTED, # 8 patch, 6 Refills, Maintenance, 03/23/22 16:10:00 EST, [facility] #[id number], 28, APPLY 1 PATCH TOPICALLY TWICE WEEKLY DIRECTED, 153, cm, 01/04/22 13:15:00 EDT, Height, 11... Start Date: 03/23/22 Status: Ordered fluconazole 150 mg oral tablet 1 tablet = 150 mg, By Mouth, Once, PRN vaginal yeast infection, # 1 tablet, 0 Refills, Soft Stop, 03/15/22 10:42:00 EST, Tablet, [facility] #[id number], Partial fill upon patient request if the prescription is for a schedule II opioid drug., 153,... Start Date: 03/15/22 Status: Ordered gabapentin 800 mg oral tablet See Instructions, TAKE 1 TABLET BY MOUTH FOUR TIMES DAILY, # 360 tablet, 0 Refills, Maintenance, 04/13/22 20:23:00 EST, [facility] #[id number], 153, cm, 01/04/22 13:15:00 EDT, Height, 113.9, kg,10/08/21 13:23:00 EDT, Dry Weight Start Date: 04/13/22 Status: Ordered gabapentin 800 mg oral tablet 1 tablet, By Mouth, 4 times a day, # 360 tablet, 1 Refills, Maintenance, 04/13/22 20:23:00 EST, [facility] #[id number], 153, cm, 01/04/22 13:15:00 EDT, Height, 113.9, kg, 10/08/21 13:23:00 EDT, Dry Weight Start Date: 04/13/22 Status: Ordered Hinged knee brace bilateral knees [...] capsule, 1 Refills, Maintenance, 12/08/21 10:10:00 EDT, [facility] #[id number], 153, cm, 10/08/21 13:23:00 EDT, Height, 113.9,kg, [...] 1 Refills, Maintenance, 03/14/22 15:04:00 EST, Tablet, [facility] #[id number], Partial fill upon patient request if the prescription is for a schedule II opioid drug., 153, cm... Start Date: 03/14/22 Status: Ordered meloxicam 15 mg oral tablet 1/2 TO 1 TABLET, By Mouth, Daily, PRN NEEDED FOR MODERATE PAIN, # 30 tablet, 5 Refills, Maintenance, 01/10/22 20:40:00 EDT, [facility] #[id number], 153, cm, 01/04/22 13:15:00 EDT, Height, 113.9, [...] capsule, 0 Refills, Maintenance, 01/16/22 8:28:00 EDT, [facility] #[id number], 153, cm, 01/04/22 13:15:00 EDT, Height, 113.9, kg, 10/08/21 13:23:00 EDT, Dry Weight Start Date: 01/16/22 Status: Ordered ondansetron 4 mg oral tablet 1 tablet, By Mouth, Every 8 hours, PRN NEEDED FOR NAUSEA OR VOMITING, # 30 tablet, 1 Refills, Maintenance, 04/14/22 21:15:00 EST, [facility] #[id number], 153, cm, 01/04/22 13:15:00 EDT, Height, 113.9, kg, 10/08/21 13:23:00 EDT, Dry Weight Start Date: 04/14/22 Status: Ordered oxybutynin 5 mg oral tablet 1 tablet, By Mouth, 3 times a day, # 270 tablet, 1 Refills, 01/10/22 10:29:00 EDT, [facility] #[id number], 153, cm, 01/04/22 13:15:00 EDT, Height, 113.9, [...] 04/14/22 21:16:00 EST, Route to Pharmacy Electronically, [facility] #[id number], Partial fill upon patient request if the... [...] Personnel Name: Candis CARDENAS, Kaiden Villalta Position: [facility] Primary Care Physician Member Role: PCP Address: Address: [address] [place] [address] Adult & [place] [address]- Care Team Related Persons Name: ROODLFO SHEIKH Address: home [address] [place] [address] Name: CHIARA TEE Address: home [address] [place] [address] [address] [place] [address]
--- OUTSIDE RECORDS SUMMARY | 2022-12-30 08:14 | XMS_ITS | Continuity of Care Document ---
Author Name Unknown Organization [facility] Address [address] [place] [address]- Care Team Providers Care Senior Lead Software Engineer Name Role Phone Kaiden Chirinos MD Primary Care Physician Encounter [facility] [place] Date(s): 11/01/21 - 12/01/21 [facility] [address] [place], [place] [address] Allergies, Adverse Reactions, Alerts Substance [...] 8.5 Gm,0 Refills, Maintenance, 09/28/21 16:57:00 EDT, [facility] #[id number], 2 puffs Inhalation Every 4 hours,PRN: NEEDED FOR WHEEZING/cough/shortness... Start Date: 09/28/21 Status: Ordered albuterol 0.083% inhalation solution 3 mL = 2.5 mg, Inhalation, Every 4 hours, PRN for wheezing/cough/shortness of breath, # 25 each, 0 Refills, Maintenance, 10/14/21 22:10:00 EDT, Solution, [facility] #[id number], Partial fill upon patient request if the prescription is for a sched... Start Date: 10/14/21 Status: Ordered Azithromycin 5 Day Dose Pack 250 mg oral tablet See Instructions, Take 2 tablets on day one. Take 1 tablet daily on Days 2-5., # 6 tablet, 0 Refills, Maintenance, 11/18/21 11:47:00 EDT, Tablet, [facility] #[id number], Partial fill upon patient request if the prescription is for a schedule II... Start Date: 11/18/21 Status: Ordered benzonatate 100 mg oral capsule 2 capsule, By Mouth, 3 times a day, PRN NEEDED FOR COUGH, # 30 capsule, 1 Refills, Physician Stop 11/10/22 14:46:00 EDT, 03/19/22 17:38:00 EST, [facility] #[id number], 153, cm, 10/08/21 13:23:00 EDT, Height, 113.9, kg, 10/08/21 13:23:00 EDT, D... Start Date: 03/19/22 Stop Date: 11/10/22 Status: Ordered budesonide 1 mg/2 mL inhalation suspension 2 mL = 1 mg, Neb, 2 times a day, rinse mouth out after use, # 120 mL, 1 Refills, Maintenance, 10/25/21 18:30:00 EDT, Suspension, [facility] #[id number], Partial fill upon patient request if the [...] FOR PAIN., # 100 Gm, 1 Refills, [facility] 125[facility], 30, APPLY 1 GM TOPICALLY 4 TIMES A DAY FOR PAIN, 153, cm, 06/07/21 11:07:00 EST, Height, 105, kg, 05/31/21 15:15:00 EST, Dry Weight Start Date: 08/05/21 Status: Ordered Dilaudid 2 mg oral tablet 1 tablet = 2 mg, By Mouth, 2 times a day, PRN Pain , Severe, checked masspat, # 28 tablet, 0 Refills, Maintenance, 11/23/21 16:09:00 EDT, Tablet, [facility] #[id number], Partial fill upon patient request if the prescription is for a schedule II o... Start Date: 11/23/21 Status: Ordered Estrace Vaginal Cream 0.1 mg/g = 2 Gm, Vaginally, Daily at bedtime, 2g PV daily at bedtime x 2 weeks, then 1g PV 1-3x per week, # 42.5 Gm, 5 Refills, Maintenance, 11/09/21 11:17:00 EDT, [facility] #[id number], Partial fill upon patient request if the prescription is for a sche... Start Date: 11/09/21 Status: Ordered gabapentin 800 mg oral tablet See Instructions, TAKE 1 TABLET BY MOUTH FOUR TIMES DAILY, # 360 tablet, 0 Refills, [facility] #[id number], 153, cm, 10/08/21 13:23:00 EDT, Height, 113.9, [...] capsule, 1 Refills, Maintenance, 09/28/21 16:58:00 EDT, [facility] #[id number], 153, cm, 08/10/21 11:19:00 EDT, Height, 105, [...] 1 Refills, Maintenance, 07/30/21 12:25:00 EDT, Tablet, [facility] #[id number], Partial fill upon patient request if the prescription is for a schedule II opioid drug... Start Date: 07/30/21 Status: Ordered levothyroxine 0.1 mg oral tablet 1 tablet = 100 mcg, By Mouth, Daily, dose increase, # 90 tablet, 0 Refills, Maintenance, 11/01/21 16:08:00 EDT, [facility] #[id number], Please discontinue 88ug, 153, cm, 10/08/21 13:23:00 [...] 1 Refills, Maintenance, 11/30/21 15:44:00 EDT, Tablet, [facility] #[id number], Partia... Start Date: 11/30/21 Status: Ordered lidocaine 2% topical gel with applicator 5 mL = 0.1 Gm, Topically, 2 times a day, PRN Pain , Moderate, # 60 mL, 2 Refills, Soft Stop, 09/24/21 16:43:00 EDT, Gel, [facility] #[id number], Partial fill upon patient request if the prescription is for a schedule II opioid drug., 153, cm, ... Start Date: 09/24/21 Status: Ordered meloxicam 15 mg oral tablet 1/2 TO 1 TABLET, By Mouth, Daily, PRN NEEDED FOR MODERATE PAIN, # 30 tablet, 1 Refills, :04:00 EDT, [facility] #[id number], 153, cm, 10/08/21 13:23:00 EDT, Height, 113.9, [...] 90 capsule, 0 Refills, 09/27/21 14:31:00 EDT, [facility] #[id number], 153, cm, 08/10/21 11:19:00 EDT, Height, 105, kg, 05/31/21 15:15:00 EST, Dry Weight Start Date: 09/27/21 Status: Ordered ondansetron 4 mg oral tablet 1 tablet = 4 mg, By Mouth, Every 8 hours, PRN Nausea & Vomiting, # 30 tablet, 1 Refills, Maintenance, 11/10/21 14:47:00 EDT, [facility] #[id number], 153, cm, 10/08/21 13:23:00 EDT, Height, 113.9, kg, 10/08/21 13:23:00 EDT, Dry Weight Start Date: 11/10/21 Status: Ordered oxybutynin 5 mg oral tablet 1 tablet, By Mouth, 3 times a day, # 270 tablet, 1 Refills, [facility] [id number], 153, cm, 08/10/21 11:19:00 EDT, Height, 105, [...] 12/03/21 15:43:00 EDT, 11/26/21 15:43:00 EDT, Tablet, [facility] #[id number], Partial fill upon patient request if the prescription is for... Start Date: 11/26/21 Stop Date: 12/03/21 Status: Ordered ZyrTEC 10 mg oral tablet 1 tablet = 10 mg, By Mouth, Daily, # 90 tablet, 1 Refills, Maintenance, 07/30/21 12:22:00 EDT, Tablet, [facility] #[id number], Partial fill upon patient request if the [...]
--- OUTSIDE RECORDS SUMMARY | 2022-12-30 08:14 | XMS_ITS | Continuity of Care Document ---
Author Name Unknown Organization [facility] Address [address] [place] [address]- Care Team Providers Care Sane Nurse Name Role Phone Candis CARDENAS, Kaiden Villalta Primary Care Physician [phone] Encounter [facility] Date(s): 10/04/21 - 11/03/21 [facility] [address] [place], [place] [address] [[email or web address]] Allergies, Adverse Reactions, Alerts Substance Reaction Severity [...] 8.5 Gm,0 Refills, Maintenance, 09/28/21 16:57:00 EDT, [facility] #[id number], 2 puffs Inhalation Every 4 hours,PRN: NEEDED FOR WHEEZING/cough/shortness... Start Date: 09/28/21 Status: Ordered albuterol 0.083% inhalation solution 3 mL = 2.5 mg, Inhalation, Every 4 hours, PRN for wheezing/cough/shortness of breath, # 25 each, 0 Refills, Maintenance, 10/14/21 22:10:00 EDT, Solution, [facility] #[id number], Partial fill upon patient request if the prescription is for a sched... Start Date: 10/14/21 Status: Ordered benzonatate 100 mg oral capsule 2 capsule, By Mouth, 3 times a day, PRN NEEDED FOR COUGH, # 30 capsule, 1 Refills, Physician Stop 03/19/22 17:38:00 EST, 02/19/22 16:55:00 EDT, [facility]/pharmacy #[id number], 160, cm, 12/04/20 10:52:00 EDT, Height, 104.6, kg, 12/04/20 10:52:00 EDT, Dry Weight Start Date: 02/19/22 Stop Date: 03/19/22 Status: Ordered benzonatate 100 mg oral capsule 2 capsule, By Mouth, 3 times a day, PRN NEEDED FOR COUGH, # 30 capsule, 1 Refills, Maintenance, 09/29/21 15:56:00 EDT, [facility] #[id number], 153, cm, 08/10/21 11:19:00 EDT, Height, 105, kg,05/31/21 15:15:00 EST, Dry Weight Start Date: 09/29/21 Status: Ordered budesonide 1 mg/2 mL inhalation suspension 2 mL = 1 mg, Neb, 2 times a day, rinse mouth out after use, # 120 mL, 1 Refills, Maintenance, 10/25/21 18:30:00 EDT, Suspension, [facility] #[id number], Partial fill upon patient request if the [...] Refills, Maintenance, 11/18/20 21:02:00 EDT, Tablet, [facility]/pharmacy #[id number], Partial fill upon patient... Start Date: 11/18/20 Status: Ordered diclofenac 1% topical gel = 1 Gm, Topically, 4 times a day, FOR PAIN., # 100 Gm, 1 Refills, [id number], 30, APPLY 1 GM TOPICALLY 4 TIMES A DAY FOR PAIN, 153, cm, 06/07/21 11:07:00 EST, Height, 105, kg, 05/31/21 15:15:00 EST, Dry Weight Start Date: 08/05/21 Status: Ordered Dilaudid 2 mg oral tablet 1 tablet = 2 mg, By Mouth, 2 times a day, PRN Pain , Severe, checked masspat, # 28 tablet, 0 Refills, Maintenance, 10/25/21 21:55:00 EDT, Tablet, [facility] #[id number], Partial fill upon patient request if the prescription is for a schedule II o... Start Date: 10/25/21 Status: Ordered Famotidine 0 Refills, Maintenance, 04/07/19 16:11:00 EST Start Date: 04/07/19 Status: Ordered fluconazole 150 mg oral tablet 1 tablet = 150 mg, By Mouth, Once, # 1 tablet, 0 Refills, Soft Stop, 09/21/21 11:15:00 EDT, Tablet,[facility] #[id number], Partial fill upon patient request if the prescription is for a schedule II opioid drug., 153, cm, 08/10/21 11:19:00 EDT, H... Start Date: 09/21/21 Status: Ordered gabapentin 800 mg oral tablet See Instructions, TAKE 1 TABLET BY MOUTH FOUR TIMES DAILY, # 360 tablet, 0 Refills, [facility] #[id number], 153, cm, 10/08/21 13:23:00 EDT, Height, 113.9, [...] capsule, 1 Refills, Maintenance, 09/28/21 16:58:00 EDT, [facility] #[id number], 153, cm, 08/10/21 11:19:00 EDT, Height, 105, [...] 1 Refills, Maintenance, 07/30/21 12:25:00 EDT, Tablet, [facility] #[id number], Partial fill upon patient request if the prescription is for a schedule II opioid drug... Start Date: 07/30/21 Status: Ordered levothyroxine 0.1 mg oral tablet 1 tablet = 100 mcg, By Mouth, Daily, dose increase, # 90 tablet, 0 Refills, Maintenance, 11/01/21 16:08:00 EDT, [facility] #[id number], Please discontinue 88ug, 153, cm, 10/08/21 13:23:00 EDT, Height, 113.9, kg, 10/08/21 13:23:00 EDT, Dry Weight Start Date: 11/01/21 Status: Ordered lidocaine 2% topical gel with applicator 5 mL = 0.1 Gm, Topically, 2 times a day, PRN Pain , Moderate, # 60 mL, 2 Refills, Soft Stop, 09/24/21 16:43:00 EDT, Gel, [facility] #[id number], Partial fill upon patient request if the [...] 90 capsule, 0 Refills, 09/27/21 14:31:00 EDT, [facility] #[id number], 153, cm, 08/10/21 11:19:00 EDT, Height, 105, kg, 05/31/21 15:15:00 EST, Dry Weight Start Date: 09/27/21 Status: Ordered ondansetron 4 mg oral tablet 1 tablet = 4 mg, By Mouth, Every 8 hours, PRN Nausea & Vomiting, # 30 tablet, 1 Refills, Maintenance, 09/28/21 16:56:00 EDT, [facility] #[id number], 153, cm, 08/10/21 11:19:00 EDT, Height, 105, kg, 05/31/21 15:15:00 EST, Dry Weight Start Date: 09/28/21 Status: Ordered oxybutynin 5 mg oral tablet 1 tablet, By Mouth, 3 times a day, # 270 tablet, 1 Refills, [id number], 153, cm, 08/10/21 11:19:00 EDT, Height, 105, [...] 1 Refills, Maintenance, 07/30/21 12:22:00 EDT, Tablet, [facility] #[id number], Partial fill upon patient request if the [...]
--- OUTSIDE RECORDS SUMMARY | 2022-12-30 08:14 | XMS_ITS | Continuity of Care Document ---
Author Name Unknown Organization [facility] Address [address] [place] [address]- Care Team Providers Care Physical Testing Supervisor Name Role Phone Kaiden Chirinos MD Primary Care Physician Encounter [facility] Date(s): 10/27/20 - 11/26/20 [facility] [address] [place], [place] [address] Allergies, Adverse Reactions, Alerts Substance [...] 09/22/20 16:39:00 EDT, Route to Pharmacy Electronically, [facility]/pharmacy #[id number], Partial fill upon patient request if the prescription is for a schedule II... Start Date: 09/22/20 Status: Ordered baclofen 10 mg oral tablet 10 mg, 1, tablet, By Mouth, 3 times a day, PRN, # 30 tablet, Refills 0, Tot. Refills 0, Maintenance, Spasm, 01/31/19 21:47:23 EDT, Route to Pharmacy Electronically, [id number], [facility]/pharmacy #[id number] Start Date: [...] tablet, 1 Refills, Maintenance, 11/09/20 23:47:00EDT, Tablet, [facility]/pharmacy #[id number], Partial fill upon patient request if the prescription is for a schedule II opioid drug., 160, cm, 10/30/20 8:28:00 EDT... Start Date: 11/09/20 Status: Ordered HydrOXYzine = 100 mg, By [...] 1 Refills, Maintenance, 11/05/20 11:43:00 EDT, Tablet, [facility]/pharmacy #[id number], Partial fill upon patient request if the prescription is for a schedule II opioid drug., 160, cm, 10/30/20 8:2... Start Date: 11/05/20 Status: Ordered omeprazole 20 mg oral enteric coated capsule 1 capsule = 20 mg, By Mouth, Daily, # 90 capsule, 0 Refills, Maintenance, 10/21/20 16:27:00 EDT, [facility], Partial fill upon patient request if the prescription is for a schedule II opioid drug., 160, cm, 09/07/20 13:05:00 EDT, Height, 107, kg, 2... Start Date: 10/21/20 Status: Ordered oxybutynin 5 mg oral tablet 1 tablet = 5 mg, By Mouth, 2 times a day, # 60 tablet, 1 Refills, Maintenance, 11/03/20 13:32:00 EDT, Tablet, [facility]/pharmacy #[id number], Partial fill upon patient request if the prescription is for a schedule II opioid drug., 160, cm, 10/30/20 8:28:00 EDT, H... Start Date: 11/03/20 Status: Ordered ProAir HFA 90 mcg/inh inhalation aerosol 2 puffs, Inhalation, Every 4 hours, PRN as needed for wheezing, # 8.5 Gm, 0 Refills, Maintenance, 11/16/20 8:39:00 EDT, Aerosol, [facility]/pharmacy #[id number], Partial fill [...] 1 Refills, Maintenance, 11/03/20 13:28:00 EDT, Tablet, [facility]/pharmacy #[id number], Partial fill upon patient request if the [...]
--- OUTSIDE RECORDS SUMMARY | 2022-12-30 08:14 | XMS_ITS | Continuity of Care Document ---
Author Name Unknown Organization [facility] Address [address] [place] [address]- Care Team Providers Care Feed Manager Name Role Phone Kaiden Chirinos MD Primary Care Physician [phone] [id number] Date[facility]s): 04/29/22 - 05/06/22 [facility] [address] [place] [address]- Encounter Diagnosis Right forearm cellulitis(Discharge Diagnosis) - 04/29/22 Attending Physician: Kaiden Chirinos MD Allergies, Adverse [...] 8.5 Gm,0 Refills, Maintenance, 12/22/21 10:40:00 EDT, [facility] #[id number], 2 puffs Inhalation Every 4 hours,PRN: NEEDED FOR WHEEZING/cough/shortness... Start Date: 12/22/21 Status: Ordered albuterol 0.083% inhalation solution 3 mL = 2.5 mg, Inhalation, Every 4 hours, PRN for wheezing/cough/shortness of breath, # 25 each, 0 Refills, Maintenance, 10/14/21 22:10:00 EDT, Solution, [facility] #[id number], Partial fill upon patient request if the prescription is for a sched... Start Date: 10/14/21 Status: Ordered Van Meter Saline Mist 0.65% nasal spray 2 sprays, Nares, Both, 4 times a day, # 1 each, 0 Refills, Maintenance, 02/04/22 13:32:00 EDT, [facility] #[id number], Partial fill upon patient request if the [...] tablet, 0 Refills, Maintenance, 12/27/21 13:43:00 EDT, [facility] #[id number], 153, cm, 10/08/21 13:23:00 EDT, Height, 113.9, kg, 10/08/21 13:23:00EDT, Dry Weight Start Date: 12/27/21 Status: Ordered clonazePAM 0.5 mg oral tablet 1 tablet = 0.5 mg, By Mouth, 4 times a day, PRN Anxiety, Patient on controlled substance contract. Please do NOT fill until 09/23/2020, # 112 tablet, 0 Refills, Maintenance, 11/18/20 21:02:00 EDT, Tablet, [id number], Partial fill upon patient... Start Date: 11/18/20 Status: Ordered diclofenac 1% topical gel = 1 Gm, Topically, 4 times a day, FOR PAIN., # 100 Gm, 1 Refills, [facility], 30, APPLY 1 GM TOPICALLY 4 TIMES A DAY FOR PAIN, 153, cm, 06/07/21 11:07:00 EST, Height, 105, kg, 05/31/21 15:15:00 EST, Dry Weight Start Date: 08/05/21 Status: Ordered Dilaudid 2 mg oral tablet 1 tablet = 2 mg, By Mouth, 2 times a day, PRN Pain , Severe, checked masspat, # 56 tablet, 0 Refills, Maintenance, 05/05/22 17:13:00 EST, Tablet, [facility] #[id number], Partial fill upon patient request if the prescription is for a schedule II o... Start Date: 05/05/22 Status: Ordered Estrace Vaginal Cream 0.1 mg/g = 2 Gm, Vaginally, Daily at bedtime, 2g PV daily at bedtime x 2 weeks, then 1g PV 1-3x per week, # 42.5 Gm, 5 Refills, Maintenance, 11/09/21 11:17:00 EDT, [facility] #[id number], Partial fill upon patient request if the prescription is for a sche... Start Date: 11/09/21 Status: Ordered Estradiol Patch 0.0375 mg/24 hours twice weekly transdermal film, extended release See Instructions, APPLY 1 PATCH TOPICALLY TWICE WEEKLY DIRECTED, # 8 patch, 6 Refills, Maintenance, 03/23/22 16:10:00 EST, [facility] #[id number], 28, APPLY 1 PATCH TOPICALLY TWICE WEEKLY DIRECTED, 153, cm, 01/04/22 13:15:00 EDT, Height, 11... Start Date: 03/23/22 Status: Ordered Flonase 50 mcg/inh nasal spray 1 sprays, Nares, Both, 2 times a day, # 16 Gm, 0 Refills, Maintenance, 04/19/22 14:04:00 EST, [place], [facility] #[id number], Partial fill upon patient request if the prescription is for a schedule II opioid drug., 1 sprays Nares, Both 2 times a d... Start Date: 04/19/22 Status: Ordered fluconazole 150 mg oral tablet 1 tablet = 150 mg, By Mouth, Once, PRN vaginal yeast infection, # 1 tablet, 0 Refills, Soft Stop, 03/15/22 10:42:00 EST, Tablet, [facility] #[id number], Partial fill upon patient request if the prescription is for a schedule II opioid drug., 153,... Start Date: 03/15/22 Status: Ordered gabapentin 800 mg oral tablet 1 tablet, By Mouth, 4 times a day, # 360 tablet, 1 Refills, Maintenance, 04/19/22 12:59:00 EST, [facility] #[id number], 153, cm, 01/04/22 13:15:00 EDT, Height, 113.9, [...] capsule, 1 Refills, Maintenance, 12/08/21 10:10:00 EDT, [facility] #[id number], 153, cm, 10/08/21 13:23:00 EDT, Height, 113.9,kg, [...] 1 Refills, Maintenance, 04/28/22 13:51:00 EST, Tablet, [facility] #[id number], Partial fill upon patient request if the prescription is for a schedule II opioid drug., 153, cm... Start Date: 04/28/22 Status: Ordered lidocaine 4% topical cream 1 application, Topically, 3 times a day, PRN pain of forearms, # 30 Gm, 1 Refills, Acute 06/23/22 16:24:00 EST, 04/25/22 16:23:00 EST, Cream, [facility] #[id number], Partial fill upon patient request if the prescription is for a schedule II opioi... Start Date: 04/25/22 Stop Date: 06/23/22 Status: Ordered meloxicam 15 mg oral tablet 1/2 TO 1 TABLET, By Mouth, Daily, PRN NEEDED FOR MODERATE PAIN, # 30 tablet, 5 Refills, Maintenance, 01/10/22 20:40:00 EDT, [facility] #[id number], 153, cm, 01/04/22 13:15:00 EDT, Height, 113.9, [...] capsule, 1 Refills, Maintenance, 04/19/22 12:41:00 EST, [facility] #[id number], 153, cm, 01/04/22 13:15:00 EDT, Height, 113.9, kg, 10/08/21 13:23:00 EDT, Dry Weight Start Date: 04/19/22 Status: Ordered ondansetron 4 mg oral tablet 1 tablet, By Mouth, Every 8 hours, PRN NEEDED FOR NAUSEA OR VOMITING, # 30 tablet, 1 Refills, Maintenance, 04/14/22 21:15:00 EST, [facility] #[id number], 153, cm, 01/04/22 13:15:00 EDT, Height, 113.9, kg, 10/08/21 13:23:00 EDT, Dry Weight Start Date: 04/14/22 Status: Ordered oxybutynin 5 mg oral tablet 1 tablet, By Mouth, 3 times a day, # 270 tablet, 1 Refills, 01/10/22 10:29:00 EDT, [facility] #[id number], 153, cm, 01/04/22 13:15:00 EDT, Height, 113.9, [...] 04/14/22 21:16:00 EST, Route to Pharmacy Electronically, [facility] #[id number], Partial fill upon patient request if the... [...] Effective Dates Health Status Clinical Service Informant Right forearm cellulitis Discharge Diagnosis 04/29/22 Social History Social History Type Response Smoking Status Former smoker, quit more than 30 days ago;Never entered on: 11/09/21 Sex Patient Care team information Care Team Personnel Name: Kaiden Chirinos MD Position: [facility] Primary Care Physician Member Role: PCP Address: Address: [address] [place] [address] Adult [facility] [place] [address]- Care Team Related Persons Name: RODOLFO SHEIKH Address: home [address] [facility] [address] [place] [id number] Name: CHIARA TEE Address: home [address] [place] [address] [place] [address]
--- OUTSIDE RECORDS SUMMARY | 2022-12-30 08:14 | XMS_ITS | Continuity of Care Document ---
Author Name Unknown Organization [facility] Address [address] [place] [address]- Care Team Providers Care Hair Spring Cutter Name Role Phone Kaiden Chirinos MD Primary Care Physician [phone] [place] [facility] [place](s): 11/03/20 - 12/03/20 [facility] [address] [place], [place] [address] Allergies, Adverse Reactions, Alerts [...] 09/22/20 16:39:00 EDT, Route to Pharmacy Electronically, [facility]/pharmacy #[id number], Partial fill upon patient request if the prescription is for a schedule II... Start Date: 09/22/20 Status: Ordered baclofen 10 mg oral tablet 10 mg, 1, tablet, By Mouth, 3 times a day, PRN, # 30 tablet, Refills 0, Tot. Refills 0, Maintenance, Spasm, 01/31/19 21:47:23 EDT, Route to Pharmacy Electronically, [id number], [facility]/pharmacy #[id number] Start Date: 01/31/19 Stop Date: 02/14/19 Status: Ordered clonazePAM 0.5 mg oral tablet 1 tablet = 0.5 mg, By Mouth, 4 times a day, PRN Anxiety, Patient on controlled substance contract. Please do NOT fill until 09/23/2020, # 112 tablet, 0 Refills, Maintenance, 11/18/20 21:02:00 EDT, Tablet, [facility]/pharmacy #[id number], Partial fill upon patient... Start Date: 11/18/20 Status: Ordered Famotidine 0 Refills, Maintenance, 04/07/19 16:11:00 EST Start Date: 04/07/19 Status: Ordered gabapentin 800 mg oral tablet 1 tablet = 800 mg, By Mouth, 4 times a day, # 360 tablet, 1 Refills, Maintenance, 11/09/20 23:47:00EDT, Tablet, [facility]/pharmacy #[id number], Partial fill upon [...] 1 Refills, Maintenance, 11/05/20 11:43:00 EDT, Tablet, [facility]/pharmacy #[id number], Partial fill upon [...] cm, 09/07/20 13:05:00 EDT, Height, 107, kg, 08/16... Start Date: 10/21/20 Status: Ordered oxybutynin 5 mg oral tablet 1 tablet, By Mouth, 2 times a day, # 60 tablet, 1 Refills, Maintenance, 11/27/20 17:20:00 EDT, [id number], 160, cm, 10/30/20 8:28:00 EDT, Height, 105.5, kg, 10/30/20 8:28:00 EDT, Dry Weight Start Date: 11/27/20 Status: Ordered ProAir HFA 90 mcg/inh inhalation aerosol 2 puffs, Inhalation, Every 4 hours, PRN as needed for wheezing, # 8.5 Gm, 0 Refills, Maintenance, 11/16/20 8:39:00 EDT, Aerosol, [facility]/pharmacy #[id number], Partial fill upon [...] 1 Refills, Maintenance, 11/03/20 13:28:00 EDT, Tablet, [facility]/pharmacy #[id number], Partial fill upon patient request if the prescription is for a schedule II opioid drug., 160, cm, .. Start Date: 11/03/20 Status: Ordered Vitamin D3 [...]
--- OUTSIDE RECORDS SUMMARY | 2022-12-30 08:14 | XMS_ITS | Continuity of Care Document ---
Author Name Unknown Organization 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 [address] [place], [place] [address] Allergies, Adverse Reactions, [...] 8.5 Gm,0 Refills, Maintenance, 12/22/21 10:40:00 EDT, [facility] #[id number], 2 puffs Inhalation Every 4 hours,PRN: NEEDED FOR WHEEZING/cough/shortness... Start Date: 12/22/21 Status: Ordered albuterol 0.083% inhalation solution 3 mL = 2.5 mg, Inhalation, Every 4 hours, PRN for wheezing/cough/shortness of breath, # 25 each, 0 Refills, Maintenance, 06/29/22 13:08:00 EDT, Solution, [facility] #[id number], Partial fill upon patient request if the prescription is for a sched... Start Date: 06/29/22 Status: Ordered Greer Saline Mist 0.65% nasal spray 2 sprays, Nares, Both, 4 times a day, # 1 each, 0 Refills, Maintenance, 02/04/22 13:32:00 EDT, [facility] #[id number], Partial fill upon patient request if the [...] tablet, 0 Refills, Maintenance, 12/27/21 13:43:00 EDT, [facility] #[id number], 153, cm, 10/08/21 13:23:00 EDT, Height, 113.9, kg, 10/08/21 13:23:00EDT, Dry Weight Start Date: 12/27/21 Status: Ordered chlorhexidine 2% topical liquid See Instructions, 1 application to bilateral forearms twice weekly, # 120 mL, 3 Refills, Soft Stop,06/17/22 11:06:00 EST, Liquid, [facility] #[id number], Partial fill upon patient request if the prescription is for a schedule II opioid drug., 1... Start Date: 06/17/22 Status: Ordered chlorhexidine 4% topical soap See Instructions, apply topically twice weekly to skin on forearms, # 120 mL, 2 Refills, Soft Stop,06/17/22 16:03:00 EST, [facility] #[id number], Partial fill upon patient request if the prescription is for a schedule II opioid drug., apply topi... Start Date: 06/17/22 Status: Ordered clonazePAM 0.5 mg oral tablet 1 tablet = 0.5 mg, By Mouth, 4 times a day, PRN Anxiety, Patient on controlled substance contract. Please do NOT fill until 09/23/2020, # 112 tablet, 0 Refills, Maintenance, 11/18/20 21:02:00 EDT, Tablet, [facility]/pharmacy #[id number], Partial fill upon patient... Start Date: 11/18/20 Status: Ordered diclofenac 1% topical gel = 1 Gm, Topically, 4 times a day, FOR PAIN., # 100 Gm, 1 Refills, [facility], 30, APPLY 1 GM TOPICALLY 4 TIMES A DAY FOR PAIN, 153, cm, 06/07/21 11:07:00 EST, Height, 105, kg, 05/31/21 15:15:00 EST, Dry Weight Start Date: 08/05/21 Status: Ordered Dilaudid 2 mg oral tablet 1 tablet = 2 mg, By Mouth, 2 times a day, PRN Pain , Severe, checked masspat, # 56 tablet, 0 Refills, Maintenance, 06/27/22 21:04:00 EDT, Tablet, [facility] #[id number], Partial fill upon patient request if the prescription is for a schedule II o... Start Date: 06/27/22 Status: Ordered Estrace Vaginal Cream 0.1 mg/g = 2 Gm, Vaginally, Daily at bedtime, 2g PV daily at bedtime x 2 weeks, then 1g PV 1-3x per week, # 42.5 Gm, 5 Refills, Maintenance, 11/09/21 11:17:00 EDT, [facility] #[id number], Partial fill upon patient request if the prescription is for a sche... Start Date: 11/09/21 Status: Ordered Estradiol Patch 0.0375 mg/24 hours twice weekly transdermal film, extended release See Instructions, APPLY 1 PATCH TOPICALLY TWICE WEEKLY DIRECTED, # 8 patch, 6 Refills, Maintenance, 03/23/22 16:10:00 EST, [facility] #[id number], 28, APPLY 1 PATCH TOPICALLY TWICE WEEKLY DIRECTED, 153, cm, 01/04/22 13:15:00 EDT, Height, 11... Start Date: 03/23/22 Status: Ordered fluconazole 150 mg oral tablet 1 tablet = 150 mg, By Mouth, Once, PRN vaginal yeast infection, # 1 tablet, 0 Refills, Soft Stop, 03/15/22 10:42:00 EST, Tablet, [facility] #[id number], Partial fill upon patient request if the prescription is for a schedule II opioid drug., 153,... Start Date: 03/15/22 Status: Ordered fluticasone 50 mcg/inh nasal spray See Instructions, SHAKE LIQUID AND USE 1 SPRAY IN EACH NOSTRIL TWICE DAILY, # 16 Gm, 1 Refills, Maintenance, 05/18/22 13:57:00 EST, [facility] #[id number], 30, SHAKE LIQUID AND USE 1 SPRAY IN EACH NOSTRIL TWICE DAILY, 153, cm, 04/25/22 16:23:00 E... Start Date: 05/18/22 Status: Ordered gabapentin 800 mg oral tablet 1 tablet, By Mouth, 4 times a day, # 360 tablet, 1 Refills, Maintenance, 04/19/22 12:59:00 EST, [facility] #[id number], 153, cm, 01/04/22 13:15:00 EDT, Height, 113.9, [...] capsule, 1 Refills, Maintenance, 05/20/22 12:57:00 EST, [facility] #[id number], 153, cm, 04/25/22 16:23:00 EST, Height, 109, [...] 1 Refills, Maintenance, 04/28/22 13:51:00 EST, Tablet, [facility] #[id number], Partial fill upon patient request if the prescription is for a schedule II opioid drug., 153, cm... Start Date: 04/28/22 Status: Ordered lidocaine 4% topical cream 1 application, Topically, 3 times a day, PRN Pain , Mild, # 30 Gm, 1 Refills, Maintenance, 06/24/2315:24:00 EST, Cream, [facility] #[id number], Partial fill upon patient request if the prescription is for a schedule II opioid drug., 1 applicatio... Start Date: 06/23/22 Status: Ordered meloxicam 15 mg oral tablet 1/2 TO 1 TABLET, By Mouth, Daily, PRN NEEDED FOR MODERATE PAIN, # 30 tablet, 5 Refills, Maintenance, 01/10/22 20:40:00 EDT, [facility] #[id number], 153, cm, 01/04/22 13:15:00 EDT, Height, 113.9, [...] capsule, 1 Refills, Maintenance, 04/19/22 12:41:00 EST, [facility] #[id number], 153, cm, 01/04/22 13:15:00 EDT, Height, 113.9, kg, 10/08/21 13:23:00 EDT, Dry Weight Start Date: 04/19/22 Status: Ordered ondansetron 4 mg oral tablet 1 tablet, By Mouth, Every 8 hours, PRN NEEDED FOR NAUSEA OR VOMITING, # 30 tablet, 1 Refills, Maintenance, 06/14/22 10:29:00 EST, [facility] #[id number], 153, cm, 06/08/22 9:37:00 EST, Height, 109, kg, 04/25/22 15:54:00 EST, Dry Weight Start Date: 06/14/22 Status: Ordered oxybutynin 5 mg oral tablet 1 tablet, By Mouth, 3 times a day, # 270 tablet, 0 Refills, Maintenance, 07/05/22 8:13:00 EDT, [facility] #[id number], 153, cm, 06/17/22 10:53:00 EST, Height, 109, [...] 07/01/22 14:21:00 EDT, Route to Pharmacy Electronically, [facility] #[id number], Partial fill upon patient request if the... Start Date: 07/01/22 Status: Ordered triamcinolone 0.1% topical cream 1 application, Topically, 3 times a day, PRN arm rash, # 30 Gm, 1 Refills, Acute 06/08/23 9:53:00 EST, 06/08/22 9:53:00 EST, Cream, [facility] #[id number], Partial fill upon patient request if the [...] Care Physician Member Role: PCP Address: Address: [address] [place] [address] [address] [place] [address]- Care Team Related Persons Name: AGUILAR RODOLFO Address: home [address] [facility] [address] [place] [id number] Name: CHIARA TEE Address: home [address] [place] [address] [address] [place] [address]
--- OUTSIDE RECORDS SUMMARY | 2022-12-30 08:15 | XMS_ITS | Continuity of Care Document ---
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 Start Date: 09/22/20 Status: Ordered baclofen 10 mg oral tablet 10 mg, 1, tablet, By Mouth, 3 times a day, PRN, # 30 tablet, Refills 0, Tot. Refills 0, Maintenance, Spasm, 01/31/19 21:47:23 EDT, Route to Pharmacy Electronically, [id number], [facility]/pharmacy #[id number] Start Date: 01/31/19 Stop Date: 02/14/19 Status: Ordered clonazePAM 0.5 mg oral tablet 1 tablet = 0.5 mg, By Mouth, 4 times a day, PRN Anxiety, Patient on controlled substance contract. Please do NOT fill until 09/23/2020, # 112 tablet, 0 Refills, Maintenance, 11/18/20 21:02:00 EDT, Tablet, [facility]/pharmacy #[id number], Partial fill upon patient... Start Date: 11/18/20 Status: Ordered Famotidine 0 Refills, Maintenance, 04/07/19 16:11:00 EST Start Date: 04/07/19 Status: Ordered gabapentin 800 mg oral tablet 1 tablet = 800 mg, By Mouth, 4 times a day, # 360 tablet, 1 Refills, Maintenance, 11/09/20 23:47:00EDT, Tablet, [facility]/pharmacy #[id number], Partial fill upon patient request if [...] 1 Refills, Maintenance, 11/05/20 11:43:00 EDT, Tablet, [facility]/pharmacy #[id number], Partial fill upon patient request if [...] Refills, Maintenance, 11/27/20 17:20:00 EDT, [facility], 160, cm, 10/30/20 8:28:00 EDT, Height, 105.5, kg, 10/30/20 8:28:00 EDT, Dry Weight Start Date: 11/27/20 Status: Ordered ProAir HFA 90 mcg/inh inhalation aerosol 2 puffs, Inhalation, Every 4 hours, PRN as needed for wheezing, # 8.5 Gm, 0 Refills, Maintenance, 11/16/20 8:39:00 EDT, Aerosol, [facility]/pharmacy #[id number], Partial fill upon patient request if [...] 1 Refills, Maintenance, 11/03/20 13:28:00 EDT, Tablet, [facility]/pharmacy #[id number], Partial fill upon patient request if the [...]
--- OUTSIDE RECORDS SUMMARY | 2022-12-30 08:15 | XMS_ITS | Continuity of Care Document ---
Author Name Unknown Organization [facility] Address [address] [place] [address]- Care Team Providers Care Cmo Name Role Phone Kaiden Chirinos MD Primary Care Physician Encounter [facility] [place] Date(s): 10/25/21 - 11/01/21 [facility] [address] [place], [place] [address] Encounter Diagnosis Dysuria(Discharge Diagnosis) - 10/25/21 Chronic cough(Discharge Diagnosis) - 10/25/21 Bilateral primary osteoarthritis of knee(Discharge Diagnosis) - 10/25/21 Attending Physician: Kaiden Chirinos MD Allergies, Adverse [...] 8.5 Gm,0 Refills, Maintenance, 09/28/21 16:57:00 EDT, [facility] #[id number], 2 puffs Inhalation Every 4 hours,PRN: NEEDED FOR WHEEZING/cough/shortness... Start Date: 09/28/21 Status: Ordered albuterol 0.083% inhalation solution 3 mL = 2.5 mg, Inhalation, Every 4 hours, PRN for wheezing/cough/shortness of breath, # 25 each, 0 Refills, Maintenance, 10/14/21 22:10:00 EDT, Solution, [facility] #[id number], Partial fill upon patient request if the prescription is for a sched... Start Date: 10/14/21 Status: Ordered benzonatate 100 mg oral capsule 2 capsule, By Mouth, 3 times a day, PRN NEEDED FOR COUGH, # 30 capsule, 1 Refills, Physician Stop 03/19/22 17:38:00 EST, 02/19/22 16:55:00 EDT, [facility]/pharmacy #[id number], 160, cm, 12/04/20 10:52:00 EDT, Height, 104.6, kg, 12/04/20 10:52:00 EDT, Dry Weight Start Date: 02/19/22 Stop Date: 03/19/22 Status: Ordered benzonatate 100 mg oral capsule 2 capsule, By Mouth, 3 times a day, PRN NEEDED FOR COUGH, # 30 capsule, 1 Refills, Maintenance, 09/29/21 15:56:00 EDT, [facility] #[id number], 153, cm, 08/10/21 11:19:00 EDT, Height, 105, kg,05/31/21 15:15:00 EST, Dry Weight Start Date: 09/29/21 Status: Ordered budesonide 1 mg/2 mL inhalation suspension 2 mL = 1 mg, Neb, 2 times a day, rinse mouth out after use, # 120 mL, 1 Refills, Maintenance, 10/25/21 18:30:00 EDT, Suspension, [facility] #[id number], Partial fill upon patient request if the [...] Refills, Maintenance, 11/18/20 21:02:00 EDT, Tablet, [facility]/pharmacy #[id number], Partial fill upon patient... Start Date: 11/18/20 Status: Ordered diclofenac 1% topical gel = 1 Gm, Topically, 4 times a day, FOR PAIN., # 100 Gm, 1 Refills, [facility], 30, APPLY 1 GM TOPICALLY 4 TIMES A DAY FOR PAIN, 153, cm, 06/07/21 11:07:00 EST, Height, 105, kg, 05/31/21 15:15:00 EST, Dry Weight Start Date: 08/05/21 Status: Ordered Dilaudid 2 mg oral tablet 1 tablet = 2 mg, By Mouth, 2 times a day, PRN Pain , Severe, checked masspat, # 28 tablet, 0 Refills, Maintenance, 10/25/21 21:55:00 EDT, Tablet, [facility] #[id number], Partial fill upon patient request if the prescription is for a schedule II o... Start Date: 10/25/21 Status: Ordered Famotidine 0 Refills, Maintenance, 04/07/19 16:11:00 EST Start Date: 04/07/19 Status: Ordered fluconazole 150 mg oral tablet 1 tablet = 150 mg, By Mouth, Once, # 1 tablet, 0 Refills, Soft Stop, 09/21/21 11:15:00 EDT, Tablet,[facility] #[id number], Partial fill upon patient request if the prescription is for a schedule II opioid drug., 153, cm, 08/10/21 11:19:00 EDT, H... Start Date: 09/21/21 Status: Ordered gabapentin 800 mg oral tablet See Instructions, TAKE 1 TABLET BY MOUTH FOUR TIMES DAILY, # 360 tablet, 0 Refills, [facility] #[id number], 153, cm, 10/08/21 13:23:00 EDT, Height, 113.9, [...] capsule, 1 Refills, Maintenance, 09/28/21 16:58:00 EDT, [facility] #[id number], 153, cm, 08/10/21 11:19:00 EDT, Height, 105, [...] 1 Refills, Maintenance, 07/30/21 12:25:00 EDT, Tablet, [facility] #[id number], Partial fill upon patient request if the prescription is for a schedule II opioid drug... Start Date: 07/30/21 Status: Ordered levothyroxine 0.1 mg oral tablet 1 tablet = 100 mcg, By Mouth, Daily, dose increase, # 90 tablet, 0 Refills, Maintenance, 11/01/21 16:08:00 EDT, [facility] #[id number], Please discontinue 88ug, 153, cm, 10/08/21 13:23:00 EDT, Height, 113.9, kg, 10/08/21 13:23:00 EDT, Dry Weight Start Date: 11/01/21 Status: Ordered lidocaine 2% topical gel with applicator 5 mL = 0.1 Gm, Topically, 2 times a day, PRN Pain , Moderate, # 60 mL, 2 Refills, Soft Stop, 09/24/21 16:43:00 EDT, Gel, [facility] #[id number], Partial fill upon patient request if the [...] 90 capsule, 0 Refills, 09/27/21 14:31:00 EDT, [facility] #[id number], 153, cm, 08/10/21 11:19:00 EDT, Height, 105, kg, 05/31/21 15:15:00 EST, Dry Weight Start Date: 09/27/21 Status: Ordered ondansetron 4 mg oral tablet 1 tablet = 4 mg, By Mouth, Every 8 hours, PRN Nausea & Vomiting, # 30 tablet, 1 Refills, Maintenance, 09/28/21 16:56:00 EDT, [facility] #[id number], 153, cm, 08/10/21 11:19:00 EDT, Height, 105, kg, 05/31/21 15:15:00 EST, Dry Weight Start Date: 09/28/21 Status: Ordered oxybutynin 5 mg oral tablet 1 tablet, By Mouth, 3 times a day, # 270 tablet, 1 Refills, [facility], 153, cm, 08/10/21 11:19:00 EDT, Height, 105, [...] 1 Refills, Maintenance, 07/30/21 12:22:00 EDT, Tablet, [facility] #18010, Partial fill upon patient request if the [...] Bilateral primary osteoarthritis of knee Discharge Diagnosis 10/25/21 Chronic cough Discharge Diagnosis 10/25/21 Dysuria Discharge Diagnosis 10/25/21 Social History Social History Type Response Tobacco Other: 25 YRS-QUIT. Sex
--- OUTSIDE RECORDS SUMMARY | 2022-12-30 08:15 | XMS_ITS | Continuity of Care Document ---
Author Name Unknown Organization [facility] Address [address] [place] [address]- Care Team Providers Care Product Support Specialist Name Role Phone Kaiden Chirinos MD Primary Care Physician [phone] Encounter [facility] [place] ACCT R [id number] Date(s): 12/06/19 - 01/17/20 [facility] [address] [place] [address] Attending Physician: Angus Fernandez MD, V Admitting Physician: Angus Fernandez MD, V Referring Physician: Kaiden Chirinos MD Allergies, Adverse Reactions, Alerts Substance Reaction Severity Status morphine Active Adhesive Bandage Active Percocet 7.5/325 Active Medications baclofen 10 mg oral tablet 10 mg, 1, tablet, By Mouth, 3 times a day, PRN, # 30 tablet, Refills 0, Tot. Refills 0, Maintenance, Spasm, 01/31/19 21:47:23 EDT, Route to Pharmacy Electronically, [id number], [facility]/pharmacy #[id number] Start Date: 01/31/19 Stop Date: 02/14/19 Status: Ordered clonazePAM 0.5 mg oral tablet 1 tablet = 0.5 mg, By Mouth, 3 times a day, 0 Refills, Maintenance, 04/07/19 16:13:00 EST, Tablet Start Date: 04/07/19 Status: Ordered Famotidine 0 Refills, Maintenance, 04/07/19 [...] = 20 mg, By Mouth, Daily, # 30 capsule, 0 Refills, Maintenance, 05/27/19 14:08:00 EST, ECCapsule Start Date: 05/27/19 Status: Ordered PROzac 40 mg oral capsule 1 capsule = 40 mg, By Mouth, Daily, # 30 capsule, 0 Refills, Maintenance, 05/27/19 14:08:00 EST, Capsule Start Date: 05/27/19 Status: Ordered Problem List Condition Effective Dates Status Health Status Inform ant Anxiety(Confirmed) Active Chronic neck pain(Confirmed) Active Hypothyroidism(Confirmed) Active Legally blind(Confirmed) Active Moderate obesity(Confirmed) Active Ruptured ear drum(Confirmed) Active Social History Social History Type Response Smoking Status Former smoker, quit more than 30 days ago;Never entered on: 04/07/19 Sex
--- OUTSIDE RECORDS SUMMARY | 2022-12-30 08:15 | XMS_ITS | Continuity of Care Document ---
Author Name Unknown Organization [facility] Address [address] [place] [address]- Care Team Providers Care Other Sports Official Name Role Phone Kaiden Chirinos MD Primary Care Physician [phone] Encounter [facility] [place] Date(s): 05/20/21 - 06/19/21 [facility] [address] [place], [place] [address] Allergies, Adverse Reactions, Alerts Substance [...] # 8.5 each, 0 Refills, [facility], 20, INHALE 2 PUFFS BY MOUTH EVERY 4 HOURS NEEDED FOR WHEEZING, 160, cm, 03/30/21 10:47:00 EST, Height, 104.6, kg, 12/04/20 10:52:00 EDT, Dry Weight Start Date: 04/28/21 Status: Ordered amitriptyline 10 mg oral tablet 10 mg, 1, tablet, By Mouth, Daily at bedtime, # 90 tablet, Refills 1, Tot. Refills 1, Maintenance, 12/24/20 16:08:00 EDT, Route to Pharmacy Electronically, [facility]/pharmacy #[id number], Partial fill upon patient request if the prescription is for a schedule II... Start Date: 12/24/20 Status: Ordered baclofen 10 mg oral tablet 10 mg, 1, tablet, By Mouth, 3 times a day, PRN, # 30 tablet, Refills 0, Tot. Refills 0, Maintenance, Spasm, 01/31/19 21:47:23 EDT, Route to Pharmacy Electronically, [id number], [facility]/pharmacy #[id number] Start Date: 01/31/19 Stop Date: 02/14/19 Status: Ordered benzonatate 100 mg oral capsule 2 capsule, By Mouth, 3 times a day, PRN NEEDED FOR COUGH, # 30 capsule, 1 Refills, Physician Stop 03/19/22 17:38:00 EST, 02/19/22 16:55:00 EDT, [facility]/pharmacy #[id number], 160, cm, 12/04/20 10:52:00 EDT, Height, 104.6, kg, 12/04/20 10:52:00 EDT, Dry Weight Start Date: 02/19/22 Stop Date: 03/19/22 Status: Ordered benzonatate 100 mg oral capsule 2 capsule, By Mouth, 3 times a day, PRN NEEDED FOR COUGH, # 30 capsule, 1 Refills, Physician Stop 02/19/22 16:55:00 EDT, 02/19/21 16:54:00 EDT, [facility]/pharmacy #[id number], 160, cm, 12/04/20 10:52:00 EDT, Height, [...] 11/18/20 21:02:00 EDT, Tablet, [facility]/pharmacy #[id number], Partial fill upon patient... Start Date: 11/18/20 Status: Ordered Dilaudid 2 mg oral tablet 1 tablet = 2 mg, By Mouth, Every 8 hours, PRN Pain , Severe, dose increase, # 28 tablet, 0 Refills,Acute 06/24/21 17:15:00 EST, 06/10/21 17:12:00 EST, Tablet, [facility]/pharmacy #[id number], Partial fill upon patient request if the prescription is for a schedule... Start Date: 06/10/21 Stop Date: 06/24/21 Status: Ordered Famotidine 0 Refills, Maintenance, 04/07/19 16:11:00 EST Start Date: 04/07/19 Status: Ordered gabapentin 800 mg oral tablet 1 tablet, By Mouth, 4 times a day, # 360 tablet, 1 Refills, [facility] 349[facility], 160, cm, 03/30/21 10:47:00 EST, Height, 104.6, [...] 1 Refills, Maintenance, 06/07/21 19:08:00 EST, Capsule, [facility]/pharmacy #[id number], Partial fill upon patient request if [...] 1 Refills, Maintenance, 05/14/21 15:23:00 EST, Tablet, [facility]/pharmacy #[id number], Partial fill upon patient request if the prescription is for a schedule II opioid drug., 160, c... Start Date: 05/14/21 Status: Ordered omeprazole 20 mg oral enteric coated capsule 1 capsule, By Mouth, Daily, # 90 capsule, 1 Refills, [facility] 97984, 160, cm, 03/30/21 10:47:00 EST, Height, 104.6, kg, 12/04/20 10:52:00 EDT, Dry Weight Start Date: 03/31/21 Status: Ordered ondansetron 4 mg oral tablet See Instructions, TAKE 1 TABLET BY MOUTH EVERY 8 HOURS NEEDED FOR NAUSEA AND VOMITING, # 15 tablet, 1 Refills, Physician Stop 07/12/21 15:23:00 EDT, 05/14/21 15:22:00 EST, [facility]/pharmacy #[id number], 160,cm, 03/30/21 10:47:00 EST, Height, 104.6, kg, 12/04... Start Date: 05/14/21 Stop Date: 07/12/21 Status: Ordered oxybutynin 5 mg oral tablet 1 tablet, By Mouth, 3 times a day, dose increase, # 270 tablet, 1 Refills, Maintenance, 03/19/21 17:40:00 EST, [facility]/pharmacy #[id number], 160, cm, 12/04/20 10:52:00 EDT, Height, 104.6, kg, 12/04/20 10:52:00EDT, Dry Weight Start Date: 03/19/21 Status: Ordered Qvar Redihaler 40 mcg/inh inhalation aerosol = 40 mcg, Inhalation, 2 times a day, to replace flovent rinse mouth and throat after use, # 1 each,1 Refills, Maintenance, 03/30/21 20:35:00 EST, [facility]/pharmacy #[id number], Partial fill upon patient request if [...]
--- OUTSIDE RECORDS SUMMARY | 2022-12-30 08:15 | XMS_ITS | Continuity of Care Document ---
Author Name Unknown Organization [facility] Address [address] [place] [address]- Care Team Providers Care Er Rn Name Role Phone Candis CARDENAS, Kaiden Villalta Primary Care Physician [phone] Encounter [facility] [place] Date(s): 01/30/21 - 03/01/21 [facility] [address] [place], [place] [address] Allergies, Adverse Reactions, Alerts Substance Reaction [...] 16:08:00 EDT, Route to Pharmacy Electronically, [facility]/pharmacy #[id number], Partial fill upon patient request if the prescription is for a schedule II... Start Date: 12/24/20 Status: Ordered baclofen 10 mg oral tablet 10 mg, 1, tablet, By Mouth, 3 times a day, PRN, # 30 tablet, Refills 0, Tot. Refills 0, Maintenance, Spasm, 01/31/19 21:47:23 EDT, Route to Pharmacy Electronically, [id number], [facility]/pharmacy #[id number] Start Date: 01/31/19 Stop Date: 02/14/19 Status: Ordered benzonatate 100 mg oral capsule 2 capsule, By Mouth, 3 times a day, PRN NEEDED FOR COUGH, # 30 capsule, 1 Refills, Physician Stop 02/19/22 16:55:00 EDT, 02/19/21 16:54:00 EDT, [facility]/pharmacy #[id number], 160, cm, 12/04/20 10:52:00 EDT, Height, [...] 1 Refills, Maintenance, 02/25/21 8:28:00 EST, Capsule, [facility]/pharmacy #[id number], Partial fill upon patient request if the [...] PAIN, # 30 tablet, 1 Refills, [facility] [id number], 160, cm, 12/04/20 10:52:00 EDT, Height, 104.6, kg, 12/04/20 10:52:00 EDT, Dry Weight Start Date: 01/22/21 Status: Ordered omeprazole 20 mg oral enteric coated capsule 1 capsule, By Mouth, Daily, # 90 capsule, 0 Refills, Maintenance, 01/14/21 13:42:00 EDT, [facility]/pharmacy #[id number], 160, cm, 12/04/20 10:52:00 EDT, Height, 104.6, kg, 12/04/20 10:52:00 EDT, Dry Weight Start Date: 01/14/21 Status: Ordered ondansetron 4 mg oral tablet See Instructions, TAKE 1 TABLET BY MOUTH EVERY 8 HOURS NEEDED FOR NAUSEA AND VOMITING, # 15 tablet, 0 Refills, [facility], 160, cm, 12/04/20 10:52:00 EDT, Height, 104.6, [...] 11/03/20 13:28:00 EDT, Tablet, [facility]/pharmacy #[id number], Partial fill upon patient request if [...]
--- OUTSIDE RECORDS SUMMARY | 2022-12-30 08:15 | XMS_ITS | Continuity of Care Document ---
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 Start Date: 12/24/20 Status: Ordered baclofen 10 mg oral tablet 10 mg, 1, tablet, By Mouth, 3 times a day, PRN, # 30 tablet, Refills 0, Tot. Refills 0, Maintenance, Spasm, 01/31/19 21:47:23 EDT, Route to Pharmacy Electronically, [id number], [facility]/pharmacy #[id number] Start Date: 01/31/19 Stop Date: 02/14/19 Status: Ordered benzonatate 100 mg oral capsule 2 capsule, By Mouth, 3 times a day, PRN NEEDED FOR COUGH, # 30 capsule, 1 Refills, Physician Stop 02/19/22 16:55:00 EDT, 02/19/21 16:54:00 EDT, [facility]/pharmacy #[id number], 160, cm, 12/04/20 10:52:00 EDT, Height, 104.6, kg, 12/04/20 10:52:00 EDT, Dry Weight Start Date: 02/19/21 Stop Date: 02/19/22 Status: Ordered clonazePAM 0.5 mg oral tablet 1 tablet = 0.5 mg, By Mouth, 4 times a day, PRN Anxiety, Patient on controlled substance contract. Please do NOT fill until 09/23/2020, # 112 tablet, 0 Refills, Maintenance, 11/18/20 21:02:00 EDT, Tablet, [facility]/pharmacy #[id number], Partial fill upon patient... Start Date: 11/18/20 Status: Ordered Famotidine 0 Refills, Maintenance, 04/07/19 16:11:00 EST Start Date: 04/07/19 Status: Ordered gabapentin 800 mg oral tablet 1 tablet = 800 mg, By Mouth, 4 times a day, # 360 tablet, 1 Refills, Maintenance, 11/09/20 23:47:00EDT, Tablet, [facility]/pharmacy #[id number], Partial fill upon patient [...] 1 Refills, Maintenance, 02/25/21 8:28:00 EST, Capsule, [facility]/pharmacy #[id number], Partial fill upon patient request if the [...] 1 Refills, Maintenance, 11/05/20 11:43:00 EDT, Tablet, [facility]/pharmacy #[id number], Partial fill upon patient request if the prescription is for a schedule II opioid drug., 160, cm, 10/30/20 8:2... Start Date: 11/05/20 Status: Ordered meloxicam 15 mg oral tablet 1/2 TO 1 TABLET, By Mouth, Daily, PRN NEEDED FOR MODERATE PAIN, # 30 tablet, 1 Refills, [id number], 160, cm, 12/04/20 10:52:00 EDT, Height, 104.6, [...] # 15 tablet, 0 Refills, [id number], 160, cm, 12/04/20 10:52:00 EDT, Height, 104.6, [...] 0 Refills, Maintenance, 11/16/20 8:39:00 EDT, Aerosol, [facility]/pharmacy #[id number], Partial fill upon patient [...] Refills, Maintenance, 11/03/20 13:28:00 EDT, Tablet, [id number], Partial fill upon patient request if the [...]
--- OUTSIDE RECORDS SUMMARY | 2022-12-30 08:15 | XMS_ITS | Continuity of Care Document ---
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 Start Date: 09/28/21 Status: Ordered albuterol 0.083% inhalation solution 3 mL = 2.5 mg, Inhalation, Every 4 hours, PRN for wheezing/cough/shortness of breath, # 25 each, 0 Refills, Maintenance, 10/14/21 22:10:00 EDT, Solution, [facility] #[id number], Partial fill upon patient request if the prescription is for a sched... Start Date: 10/14/21 Status: Ordered benzonatate 100 mg oral capsule 2 capsule, By Mouth, 3 times a day, PRN NEEDED FOR COUGH, # 30 capsule, 1 Refills, Physician Stop 03/19/22 17:38:00 EST, 02/19/22 16:55:00 EDT, [facility]/pharmacy #[id number], 160, cm, 12/04/20 10:52:00 EDT, Height, 104.6, kg, 12/04/20 10:52:00 EDT, Dry Weight Start Date: 02/19/22 Stop Date: 03/19/22 Status: Ordered benzonatate 100 mg oral capsule 2 capsule, By Mouth, 3 times a day, PRN NEEDED FOR COUGH, # 30 capsule, 1 Refills, Maintenance, 09/29/21 15:56:00 EDT, [facility] #[id number], 153, cm, 08/10/21 11:19:00 EDT, Height, 105, kg,05/31/21 15:15:00 EST, Dry Weight Start Date: 09/29/21 Status: Ordered budesonide 1 mg/2 mL inhalation suspension 2 mL = 1 mg, Neb, 2 times a day, rinse mouth out after use, # 120 mL, 1 Refills, Maintenance, 10/25/21 18:30:00 EDT, Suspension, [facility] #[id number], Partial fill upon patient request if the [...] Refills, Maintenance, 11/18/20 21:02:00 EDT, Tablet, [facility]/pharmacy #[id number], Partial fill upon patient... Start Date: 11/18/20 Status: Ordered diclofenac 1% topical gel = 1 Gm, Topically, 4 times a day, FOR PAIN., # 100 Gm, 1 Refills, [id number], 30, APPLY 1 GM TOPICALLY 4 TIMES A DAY FOR PAIN, 153, cm, 06/07/21 11:07:00 EST, Height, 105, kg, 05/31/21 15:15:00 EST, Dry Weight Start Date: 08/05/21 Status: Ordered Dilaudid 2 mg oral tablet 1 tablet = 2 mg, By Mouth, 2 times a day, PRN Pain , Severe, checked masspat, # 28 tablet, 0 Refills, Maintenance, 10/25/21 21:55:00 EDT, Tablet, [facility] #[id number], Partial fill upon patient request if the prescription is for a schedule II o... Start Date: 10/25/21 Status: Ordered Famotidine 0 Refills, Maintenance, 04/07/19 16:11:00 EST Start Date: 04/07/19 Status: Ordered fluconazole 150 mg oral tablet 1 tablet = 150 mg, By Mouth, Once, # 1 tablet, 0 Refills, Soft Stop, 09/21/21 11:15:00 EDT, Tablet,[facility] #[id number], Partial fill upon patient request if the prescription is for a schedule II opioid drug., 153, cm, 08/10/21 11:19:00 EDT, H... Start Date: 09/21/21 Status: Ordered gabapentin 800 mg oral tablet See Instructions, TAKE 1 TABLET BY MOUTH FOUR TIMES DAILY, # 360 tablet, 0 Refills, [facility] #[id number], 153, cm, 10/08/21 13:23:00 EDT, Height, 113.9, [...] capsule, 1 Refills, Maintenance, 09/28/21 16:58:00 EDT, [facility] #[id number], 153, cm, 08/10/21 11:19:00 EDT, Height, 105, [...] 1 Refills, Maintenance, 07/30/21 12:25:00 EDT, Tablet, [facility] #[id number], Partial fill upon patient request if the prescription is for a schedule II opioid drug... Start Date: 07/30/21 Status: Ordered lidocaine 2% topical gel with applicator 5 mL = 0.1 Gm, Topically, 2 times a day, PRN Pain , Moderate, # 60 mL, 2 Refills, Soft Stop, 09/24/21 16:43:00 EDT, Gel, [facility] #[id number], Partial fill upon patient request if the [...] 10/30/21 18:35:00 EDT, 10/25/21 18:35:00 EDT, Capsule, [facility] #[id number], Partial fill upon patient request if the prescription is for a sched... Start Date: 10/25/21 Stop Date: 10/30/21 Status: Ordered omeprazole 20 mg oral enteric coated capsule 1 capsule, By Mouth, Daily, # 90 capsule, 0 Refills, 09/27/21 14:31:00 EDT, [facility] #[id number], 153, cm, 08/10/21 11:19:00 EDT, Height, 105, kg, 05/31/21 15:15:00 EST, Dry Weight Start Date: 09/27/21 Status: Ordered ondansetron 4 mg oral tablet 1 tablet = 4 mg, By Mouth, Every 8 hours, PRN Nausea & Vomiting, # 30 tablet, 1 Refills, Maintenance, 09/28/21 16:56:00 EDT, [facility] #[id number], 153, cm, 08/10/21 11:19:00 EDT, Height, 105, kg, 05/31/21 15:15:00 EST, Dry Weight Start Date: 09/28/21 Status: Ordered oxybutynin 5 mg oral tablet 1 tablet, By Mouth, 3 times a day, # 270 tablet, 1 Refills, [id number], 153, cm, 08/10/21 11:19:00 EDT, Height, 105, [...] 1 Refills, Maintenance, 07/30/21 12:22:00 EDT, Tablet, [facility] #[id number], Partial fill upon patient request if the [...]
--- OUTSIDE RECORDS SUMMARY | 2022-12-30 08:15 | XMS_ITS | Continuity of Care Document ---
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 Start Date: 12/22/21 Status: Ordered albuterol 0.083% inhalation solution 3 mL = 2.5 mg, Inhalation, Every 4 hours, PRN for wheezing/cough/shortness of breath, # 25 each, 0 Refills, Maintenance, 03/15/23 13:08:00 EDT, Solution, [facility] #[id number], Partial fill upon patient request if the prescription is for a sched... Start Date: 06/29/22 Status: Ordered [place] Saline Mist 0.65% nasal spray 2 sprays, Nares, Both, 4 times a day, # 1 each, 0 Refills, Maintenance, 02/04/22 13:32:00 EDT, [email or web address] #[id number], Partial fill upon patient request if the [...] tablet, 0 Refills, Maintenance, 12/27/21 13:43:00 EDT, [facility] #[id number], 153, cm, 10/08/21 13:23:00 EDT, Height, 113.9, kg, 10/08/21 13:23:00EDT, Dry Weight Start Date: 12/27/21 Status: Ordered chlorhexidine 2% topical liquid See Instructions, 1 application to bilateral forearms twice weekly, # 120 mL, 3 Refills, Soft Stop,06/17/22 11:06:00 EST, Liquid, [facility] #[id number], Partial fill upon patient request if the prescription is for a schedule II opioid drug., 1... Start Date: 06/17/22 Status: Ordered chlorhexidine 4% topical soap See Instructions, apply topically twice weekly to skin on forearms, # 120 mL, 2 Refills, Soft Stop,06/17/22 16:03:00 EST, [email or web address] #[id number], Partial fill upon patient request if the prescription is for a schedule II opioid drug., apply topi... Start Date: 06/17/22 Status: Ordered clonazePAM 0.5 mg oral tablet 1 tablet = 0.5 mg, By Mouth, 4 times a day, PRN Anxiety, Patient on controlled substance contract. Please do NOT fill until 09/23/2020, # 112 tablet, 0 Refills, Maintenance, 11/18/20 21:02:00 EDT, Tablet, [facility]/pharmacy #[id number], Partial fill upon patient... Start Date: 11/18/20 Status: Ordered diclofenac 1% topical gel = 1 Gm, Topically, 4 times a day, FOR PAIN., # 100 Gm, 1 Refills, [facility], 30, APPLY 1 GM TOPICALLY 4 TIMES A DAY FOR PAIN, 153, cm, 06/07/21 11:07:00 EST, Height, 105, kg, 05/31/21 15:15:00 EST, Dry Weight Start Date: 08/05/21 Status: Ordered Dilaudid 2 mg oral tablet 1 tablet = 2 mg, By Mouth, 2 times a day, PRN Pain , Severe, checked masspat, # 56 tablet, 0 Refills, Maintenance, 09/28/22 9:53:00 EDT, Tablet, [facility] #[id number], Partial fill upon patientrequest if the prescription is for a schedule II op... Start Date: 09/28/22 Status: Ordered Estrace Vaginal Cream 0.1 mg/g = 2 Gm, Vaginally, Daily at bedtime, 2g PV daily at bedtime x 2 weeks, then 1g PV 1-3x per week, # 42.5 Gm, 5 Refills, Maintenance, 11/09/21 11:17:00 EDT, [facility] #[id number], Partial fill upon patient request if the prescription is for a sche... Start Date: 11/09/21 Status: Ordered Estradiol Patch 0.0375 mg/24 hours twice weekly transdermal film, extended release See Instructions, APPLY 1 PATCH TOPICALLY TWICE WEEKLY DIRECTED, # 8 patch, 2 Refills, Maintenance, 09/22/22 21:55:00 EDT, [facility] #[id number], 28, APPLY 1 PATCH TOPICALLY TWICE WEEKLY DIRECTED, 153, cm, 06/17/22 10:53:00 EST, Height, 10... Start Date: 09/22/22 Status: Ordered fluconazole 150 mg oral tablet 1 tablet = 150 mg, By Mouth, Once, PRN vaginal yeast infection, # 1 tablet, 0 Refills, Soft Stop, 03/15/22 10:42:00 EST, Tablet, [facility] #[id number], Partial fill upon patient request if the prescription is for a schedule II opioid drug., 153,... Start Date: 03/15/22 Status: Ordered fluticasone 50 mcg/inh nasal spray See Instructions, SHAKE LIQUID AND USE 1 SPRAY IN EACH NOSTRIL TWICE DAILY, # 16 Gm, 1 Refills, Maintenance, 05/18/22 13:57:00 EST, [facility] #[id number], 30, SHAKE LIQUID AND USE 1 SPRAY IN EACH NOSTRIL TWICE DAILY, 153, cm, 04/25/22 16:23:00 E... Start Date: 05/18/22 Status: Ordered gabapentin 800 mg oral tablet 1 tablet, By Mouth, 4 times a day, # 360 tablet, 1 Refills, Maintenance, 04/19/22 12:59:00 EST, [facility] #[id number], 153, cm, 01/04/22 13:15:00 EDT, Height, 113.9, [...] capsule, 1 Refills, Maintenance, 07/18/22 9:45:00 EDT, [facility] #[id number], 153, cm, 06/17/22 10:53:00 EST, Height, 109, [...] 1 Refills, Maintenance, 04/28/22 13:51:00 EST, Tablet, [facility] #[id number], Partial fill upon patient request if the prescription is for a schedule II opioid drug., 153, cm... Start Date: 04/28/22 Status: Ordered lidocaine 4% topical cream 1 application, Topically, 3 times a day, PRN Pain , Mild, # 30 Gm, 1 Refills, Maintenance, 06/24/2315:24:00 EST, Cream, [facility] #[id number], Partial fill upon patient request if the prescription is for a schedule II opioid drug., 1 applicatio... Start Date: 06/23/22 Status: Ordered meloxicam 15 mg oral tablet 1/2 TO 1 TABLET, By Mouth, Daily, PRN NEEDED FOR MODERATE PAIN, # 30 tablet, 5 Refills, Maintenance, 01/10/22 20:40:00 EDT, [email or web address] #[id number], 153, cm, 01/04/22 13:15:00 EDT, Height, 113.9, [...] capsule, 1 Refills, Maintenance, 07/26/22 14:24:00 EDT, [facility] #[id number], 153, cm, 06/17/22 10:53:00 EST, Height, 109, kg, 06/17/22 10:53:00 EST, Dry Weight Start Date: 07/26/22 Status: Ordered ondansetron 4 mg oral tablet 1 tablet, By Mouth, Every 8 hours, PRN NEEDED FOR NAUSEA OR VOMITING, # 30 tablet, 1 Refills, Maintenance, 06/14/22 10:29:00 EST, [facility] #[id number], 153, cm, 06/08/22 9:37:00 EST, Height, 109, kg, 04/25/22 15:54:00 EST, Dry Weight Start Date: 06/14/22 Status: Ordered oxybutynin 5 mg oral tablet 1 tablet, By Mouth, 3 times a day, # 270 tablet, 0 Refills, Maintenance, 07/05/22 8:13:00 EDT, [facility] #[id number], 153, cm, 06/17/22 10:53:00 EST, Height, 109, [...] 07/01/22 14:21:00 EDT, Route to Pharmacy Electronically, [email or web address] #[id number], Partial fill upon patient request if the... Start Date: 07/01/22 Status: Ordered triamcinolone 0.1% topical cream 1 application, Topically, 3 times a day, PRN arm rash, # 30 Gm, 1 Refills, Acute 06/08/23 9:53:00 EST, 06/08/22 9:53:00 EST, Cream, [facility] #[id number], Partial fill upon patient request if the [...] Primary Care Member Role: PCP Address: Address: [address] [place] [address] Adult [facility] [place] [address]- Care Team Related Persons Name: RODOLFO SHEIKH Address: home [address] [facility] [address] [place] [id number] Name: CHIARA TEE Address: home [address] [facility] [place] [address]
--- OUTSIDE RECORDS SUMMARY | 2022-12-30 08:15 | XMS_ITS | Continuity of Care Document ---
Author Name Unknown Organization [facility] Address [address] [place] [address]- Care Team Providers Care Training Director Name Role Phone Candis CARDENAS, Kaiden Villalta Primary Care Physician [place] [facility] [place]/18/22 [facility] [address] [place], [place] [address] Allergies, Adverse Reactions, Alerts Substance Reaction Severity Status morphine Active Adhesive Bandage Active Paxlovid 1 Active Percocet 7.5/325 Active 1hives Immunizations Given and Recorded Vaccine [...] 8.5 Gm,0 Refills, Maintenance, 12/22/21 10:40:00 EDT, [facility] #[id number], 2 puffs Inhalation Every 4 hours,PRN: NEEDED FOR WHEEZING/cough/shortness... Start Date: 12/22/21 Status: Ordered albuterol 0.083% inhalation solution 3 mL = 2.5 mg, Inhalation, Every 4 hours, PRN for wheezing/cough/shortness of breath, # 25 each, 0 Refills, Maintenance, 10/14/21 22:10:00 EDT, Solution, [email or web address] #[id number], Partial fill upon patient request if the prescription is for a sched... Start Date: 10/14/21 Status: Ordered [place] Saline Mist 0.65% nasal spray 2 sprays, Nares, Both, 4 times a day, # 1 each, 0 Refills, Maintenance, 02/04/22 13:32:00 EDT, [facility] #[id number], Partial fill upon patient request if the [...] tablet, 0 Refills, Maintenance, 12/27/21 13:43:00 EDT, [email or web address] #[id number], 153, cm, 10/08/21 13:23:00 EDT, Height, 113.9, kg, 10/08/21 13:23:00EDT, Dry Weight Start Date: 12/27/21 Status: Ordered clonazePAM 0.5 mg oral tablet 1 tablet = 0.5 mg, By Mouth, 4 times a day, PRN Anxiety, Patient on controlled substance contract. Please do NOT fill until 09/23/2020, # 112 tablet, 0 Refills, Maintenance, 11/18/20 21:02:00 EDT, Tablet, [facility]/pharmacy #[id number], Partial fill upon patient... Start Date: 11/18/20 Status: Ordered diclofenac 1% topical gel = 1 Gm, Topically, 4 times a day, FOR PAIN., # 100 Gm, 1 Refills, [facility], 30, APPLY 1 GM TOPICALLY 4 TIMES A DAY FOR PAIN, 153, cm, 06/07/21 11:07:00 EST, Height, 105, kg, 05/31/21 15:15:00 EST, Dry Weight Start Date: 08/05/21 Status: Ordered Dilaudid 2 mg oral tablet 1 tablet = 2 mg, By Mouth, 2 times a day, PRN Pain , Severe, checked masspat, # 28 tablet, 0 Refills, Maintenance, 03/04/22 14:11:00 EST, Tablet, [facility] #[id number], Partial fill upon patient request if the prescription is for a schedule II o... Start Date: 03/04/22 Status: Ordered Estrace Vaginal Cream 0.1 mg/g = 2 Gm, Vaginally, Daily at bedtime, 2g PV daily at bedtime x 2 weeks, then 1g PV 1-3x per week, # 42.5 Gm, 5 Refills, Maintenance, 11/09/21 11:17:00 EDT, [facility] #[id number], Partial fill upon patient request if the prescription is for a sche... Start Date: 11/09/21 Status: Ordered Estradiol Patch 0.0375 mg/24 hours twice weekly transdermal film, extended release See Instructions, APPLY 1 PATCH TOPICALLY TWICE WEEKLY DIRECTED, # 8 patch, 0 Refills, Maintenance, 02/26/22 10:23:00 EST, [facility] #[id number], 28, APPLY 1 PATCH TOPICALLY TWICE WEEKLY DIRECTED, 153, cm, 01/04/22 13:15:00 EDT, Height, 11... Start Date: 02/26/22 Status: Ordered fluconazole 150 mg oral tablet 1 tablet = 150 mg, By Mouth, Once, PRN vaginal yeast infection, # 1 tablet, 0 Refills, Soft Stop, 03/15/22 10:42:00 EST, Tablet, [facility] #[id number], Partial fill upon patient request if the prescription is for a schedule II opioid drug., 153,... Start Date: 03/15/22 Status: Ordered gabapentin 800 mg oral tablet See Instructions, TAKE 1 TABLET BY MOUTH FOUR TIMES DAILY, # 360 tablet, 0 Refills, [facility] #[id number], 153, cm, 10/08/21 13:23:00 EDT, Height, 113.9, [...] capsule, 1 Refills, Maintenance, 12/08/21 10:10:00 EDT, [facility] #[id number], 153, cm, 10/08/21 13:23:00 EDT, Height, 113.9,kg, [...] 1 Refills, Maintenance, 03/14/22 15:04:00 EST, Tablet, [facility] #[id number], Partial fill upon patient request if the prescription is for a schedule II opioid drug., 153, cm... Start Date: 03/14/22 Status: Ordered lidocaine 3% topical gel 1 application, Topically, 2 times a day, PRN as needed for pain, to replace 2% topical, # 28.5 Gm, 2 Refills, Acute 03/29/22 14:17:00 EST, 12/28/21 14:17:00 EDT, Gel, [facility] #[id number], Partial fill upon patient request if the prescription i... Start Date: 12/28/21 Stop Date: 03/29/22 Status: Ordered meloxicam 15 mg oral tablet 1/2 TO 1 TABLET, By Mouth, Daily, PRN NEEDED FOR MODERATE PAIN, # 30 tablet, 5 Refills, Maintenance, 01/10/22 20:40:00 EDT, [facility] #[id number], 153, cm, 01/04/22 13:15:00 EDT, Height, 113.9, [...] capsule, 0 Refills, Maintenance, 01/16/22 8:28:00 EDT, [facility] #[id number], 153, cm, 01/04/22 13:15:00 EDT, Height, 113.9, kg, 10/08/21 13:23:00 EDT, Dry Weight Start Date: 01/16/22 Status: Ordered ondansetron 4 mg oral tablet 1 tablet, By Mouth, Every 8 hours, PRN NEEDED FOR NAUSEA OR VOMITING, # 30 tablet, 0 Refills, Maintenance, 03/01/22 11:29:00 EST, [facility] #[id number], 153, cm, 01/04/22 13:15:00 EDT, Height, 113.9, kg, 10/08/21 13:23:00 EDT, Dry Weight Start Date: 03/01/22 Status: Ordered oxybutynin 5 mg oral tablet 1 tablet, By Mouth, 3 times a day, # 270 tablet, 1 Refills, 01/10/22 10:29:00 EDT, [facility] #[id number], 153, cm, 01/04/22 13:15:00 EDT, Height, 113.9, [...] 03/14/22 15:10:00 EST, Route to Pharmacy Electronically, [email or web address] #[id number], Partial fill upon patient request if the... Start Date: 03/14/22 Status: Ordered valacyclovir 1 gm oral tablet 1 tablet = 1 Gm, By Mouth, 3 times a day, for 7 days, # 21 tablet, 0 Refills, Acute 03/22/22 10:41:00 EST, 03/15/22 10:41:00 EST, Tablet, [email or web address] #[id number], Partial fill upon patient request if the [...] Personnel Name: Candis CARDENAS, Kaiden Villalta Position: [facility] Primary Care Physician Member Role: PCP Address: Address: [address] [place] [address] Adult [place] [address]- Care Team Related Persons Name: RODOLFO SHEIKH Address: home [address] [facility] [address] [place] [id number] Name: CHIARA TEE Address: home [address] [place] [address] [place] [id number]
--- OUTSIDE RECORDS SUMMARY | 2022-12-30 08:15 | XMS_ITS | Continuity of Care Document ---
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 Start Date: 12/22/21 Status: Ordered albuterol 0.083% inhalation solution 3 mL = 2.5 mg, Inhalation, Every 4 hours, PRN for wheezing/cough/shortness of breath, # 25 each, 0 Refills, Maintenance, 06/29/22 13:08:00 EDT, Solution, Room [facility]ORE #[id number], Partial fill upon patient request if the prescription is for a sched... Start Date: 06/29/22 Status: Ordered [place] Saline Mist 0.65% nasal spray 2 sprays, Nares, Both, 4 times a day, # 1 each, 0 Refills, Maintenance, 02/04/22 13:32:00 EDT, [email or web address] #[id number], Partial fill upon patient request if the [...] tablet, 0 Refills, Maintenance, 12/27/21 13:43:00 EDT, Room [facility]ORE #[id number], 153, cm, 10/08/21 13:23:00 EDT, Height, 113.9, kg, 10/08/21 13:23:00EDT, Dry Weight Start Date: 12/27/21 Status: Ordered chlorhexidine 2% topical liquid See Instructions, 1 application to bilateral forearms twice weekly, # 120 mL, 3 Refills, Soft Stop,06/17/22 11:06:00 EST, Liquid, Room STORE #[id number], Partial fill upon patient request if the prescription is for a schedule II opioid drug., 1... Start Date: 06/17/22 Status: Ordered chlorhexidine 4% topical soap See Instructions, apply topically twice weekly to skin on forearms, # 120 mL, 2 Refills, Soft Stop,06/17/22 16:03:00 EST, [email or web address] #[id number], Partial fill upon patient request if the prescription is for a schedule II opioid drug., apply topi... Start Date: 06/17/22 Status: Ordered clonazePAM 0.5 mg oral tablet 1 tablet = 0.5 mg, By Mouth, 4 times a day, PRN Anxiety, Patient on controlled substance contract. Please do NOT fill until 09/23/2020, # 112 tablet, 0 Refills, Maintenance, 11/18/20 21:02:00 EDT, Tablet, [facility]/pharmacy #[id number], Partial fill upon patient... Start Date: 11/18/20 Status: Ordered diclofenac 1% topical gel = 1 Gm, Topically, 4 times a day, FOR PAIN., # 100 Gm, 1 Refills, [id number], 30, APPLY 1 GM TOPICALLY 4 TIMES [...] 0 Refills, Maintenance, 12/27/22 23:09:00 EDT, Tablet, Room STORE #[id number], Partial fill upon patient request if the prescription is fo... Start Date: 12/27/22 Status: Ordered Estrace Vaginal Cream 0.1 mg/g = 2 Gm, Vaginally, Daily at bedtime, 2g PV daily at bedtime x 2 weeks, then 1g PV 1-3x per week, # 42.5 Gm, 5 Refills, Maintenance, 11/09/21 11:17:00 EDT, Room STORE #[id number], Partial fill upon patient request if the prescription is for a sche... Start Date: 11/09/21 Status: Ordered Estradiol Patch 0.0375 mg/24 hours twice weekly transdermal film, extended release See Instructions, APPLY 1 PATCH TOPICALLY TWICE WEEKLY DIRECTED, # 8 patch, 1 Refills, Maintenance, 12/28/22 13:34:00 EDT, Room STORE #[id number], 28, APPLY 1 PATCH TOPICALLY TWICE WEEKLY DIRECTED, 154, cm, 10/29/22 14:42:00 EDT, Height, 10... Start Date: 12/28/22 Status: Ordered fluconazole 150 mg oral tablet 1 tablet = 150 mg, By Mouth, Once, PRN vaginal yeast infection, repeat dose in 72 hours if symptomsnot resolved, # 2 tablet, 0 Refills, Soft Stop, 11/08/22 15:31:00 EDT, Tablet, Room [facility]ORE#[id number], Partial fill upon patient request if the pr... Start Date: 11/08/22 Status: Ordered fluticasone 50 mcg/inh nasal spray See Instructions, SHAKE LIQUID AND USE 1 SPRAY IN EACH NOSTRIL TWICE DAILY, # 16 Gm, 1 Refills, Maintenance, 05/18/22 13:57:00 EST, Room STORE #[id number], 30, SHAKE LIQUID AND USE 1 SPRAY IN EACH NOSTRIL TWICE DAILY, 153, cm, 04/25/22 16:23:00 E... Start Date: 05/18/22 Status: Ordered gabapentin 800 mg oral tablet 1 tablet, By Mouth, 4 times a day, # 360 tablet, 1 Refills, Maintenance, 10/25/22 21:47:00 EDT, Room STORE #[id number], 153, cm, 06/17/22 10:53:00 EST, Height, 109, [...] capsule, 1 Refills, Maintenance, 11/15/22 11:13:00 EDT, Room STORE #[id number], 154, cm, 10/29/22 14:42:00 EDT, Height, 109, [...] 1 Refills, Maintenance, 04/28/22 13:51:00 EST, Tablet, Room [facility]ORE #[id number], Partial fill upon patient request if the prescription is for a schedule II opioid drug., 153, cm... Start Date: 04/28/22 Status: Ordered lidocaine 4% topical cream 1 application, Topically, 3 times a day, PRN Pain , Mild, # 30 Gm, 1 Refills, Maintenance, 06/24/2315:24:00 EST, Cream, Room [facility]ORE #[id number], Partial fill upon patient request if the prescription is for a schedule II opioid drug., 1 applicatio... Start Date: 06/23/22 Status: Ordered meloxicam 15 mg oral tablet 1/2 TO 1 TABLET, By Mouth, Daily, PRN NEEDED FOR MODERATE PAIN, # 30 tablet, 5 Refills, Maintenance, 01/10/22 20:40:00 EDT, Room STORE #[id number], 153, cm, 01/04/22 13:15:00 EDT, Height, 113.9, [...] capsule, 1 Refills, Maintenance, 07/26/22 14:24:00 EDT, Room STORE #[id number], 153, cm, 06/17/22 10:53:00 EST, Height, 109, kg, 06/17/22 10:53:00 EST, Dry Weight Start Date: 07/26/22 Status: Ordered ondansetron 4 mg oral tablet 1 tablet, By Mouth, Every 8 hours, PRN NEEDED FOR NAUSEA OR VOMITING, # 30 tablet, 1 Refills, Maintenance, 10/27/22 23:08:00 EDT, [facility] #[id number], 153, cm, 06/17/22 10:53:00 EST, Height, 109, kg, 06/17/22 10:53:00 EST, Dry Weight Start Date: 10/27/22 Status: Ordered oxybutynin 5 mg oral tablet 1 tablet, By Mouth, 3 times a day, # 270 tablet, 1 Refills, Maintenance, 10/04/22 20:44:00 EDT, Room STORE #[id number], 153, cm, 06/17/22 10:53:00 EST, Height, 109, [...] 11/18/22 16:07:00 EDT, Route to Pharmacy Electronically, Room STORE #[id number], Partial fill upon patient request if the prescrip... Start Date: 11/18/22 Status: Ordered traZODone 50 mg oral tablet 1-2 tablet, By Mouth, Daily, one hour prior to bedtime. dose increase, # 60 tablet, Refills 2, Tot.Refills 2, Maintenance, 07/01/22 14:21:00 EDT, Route to Pharmacy Electronically, [facility]ORE #[id number], Partial fill upon patient request if the... Start Date: 07/01/22 Status: Ordered triamcinolone 0.1% topical cream 1 application, Topically, 3 times a day, PRN arm rash, # 30 Gm, 1 Refills, Acute 06/08/23 9:53:00 EST, 06/08/22 9:53:00 EST, Cream, Room STORE #[id number], Partial fill upon patient request if the [...] Primary Care Member Role: PCP Address: Address: [address] [place] [address]- Care Team Related Persons Name: RODOLFO SHEIKH Address: home [address] [facility] [address] [place] [address] Name: CHIARA TEE Address: home [address] [place] [address] [address] [place] [address]
--- OUTSIDE RECORDS SUMMARY | 2022-12-30 08:15 | XMS_ITS | Continuity of Care Document ---
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 Start Date: 12/22/21 Status: Ordered albuterol 0.083% inhalation solution 3 mL = 2.5 mg, Inhalation, Every 4 hours, PRN for wheezing/cough/shortness of breath, # 25 each, 0 Refills, Maintenance, 10/14/21 22:10:00 EDT, Solution, [facility] #[id number], Partial fill upon patient request if the prescription is for a sched... Start Date: 10/14/21 Status: Ordered [place] Saline Mist 0.65% nasal spray 2 sprays, Nares, Both, 4 times a day, # 1 each, 0 Refills, Maintenance, 02/04/22 13:32:00 EDT, [facility] #[id number], Partial fill upon patient request if the [...] tablet, 0 Refills, Maintenance, 12/27/21 13:43:00 EDT, [facility] #[id number], 153, cm, 10/08/21 13:23:00 EDT, Height, 113.9, kg, 10/08/21 13:23:00EDT, Dry Weight Start Date: 12/27/21 Status: Ordered clonazePAM 0.5 mg oral tablet 1 tablet = 0.5 mg, By Mouth, 4 times a day, PRN Anxiety, Patient on controlled substance contract. Please do NOT fill until 09/23/2020, # 112 tablet, 0 Refills, Maintenance, 11/18/20 21:02:00 EDT, Tablet, [facility]/pharmacy #[id number], Partial fill upon patient... Start Date: 11/18/20 Status: Ordered diclofenac 1% topical gel = 1 Gm, Topically, 4 times a day, FOR PAIN., # 100 Gm, 1 Refills, [id number], 30, APPLY 1 GM TOPICALLY 4 TIMES A DAY FOR PAIN, 153, cm, 06/07/21 11:07:00 EST, Height, 105, kg, 05/31/21 15:15:00 EST, Dry Weight Start Date: 08/05/21 Status: Ordered Dilaudid 2 mg oral tablet 1 tablet = 2 mg, By Mouth, 2 times a day, PRN Pain , Severe, checked masspat, # 56 tablet, 0 Refills, Maintenance, 05/05/22 17:13:00 EST, Tablet, [facility] #[id number], Partial fill upon patient request if the prescription is for a schedule II o... Start Date: 05/05/22 Status: Ordered Estrace Vaginal Cream 0.1 mg/g = 2 Gm, Vaginally, Daily at bedtime, 2g PV daily at bedtime x 2 weeks, then 1g PV 1-3x per week, # 42.5 Gm, 5 Refills, Maintenance, 11/09/21 11:17:00 EDT, [facility] #[id number], Partial fill upon patient request if the prescription is for a sche... Start Date: 11/09/21 Status: Ordered Estradiol Patch 0.0375 mg/24 hours twice weekly transdermal film, extended release See Instructions, APPLY 1 PATCH TOPICALLY TWICE WEEKLY DIRECTED, # 8 patch, 6 Refills, Maintenance, 03/23/22 16:10:00 EST, [facility] #[id number], 28, APPLY 1 PATCH TOPICALLY TWICE WEEKLY DIRECTED, 153, cm, 01/04/22 13:15:00 EDT, Height, 11... Start Date: 03/23/22 Status: Ordered fluconazole 150 mg oral tablet 1 tablet = 150 mg, By Mouth, Once, PRN vaginal yeast infection, # 1 tablet, 0 Refills, Soft Stop, 03/15/22 10:42:00 EST, Tablet, [facility] #[id number], Partial fill upon patient request if the prescription is for a schedule II opioid drug., 153,... Start Date: 03/15/22 Status: Ordered fluticasone 50 mcg/inh nasal spray See Instructions, SHAKE LIQUID AND USE 1 SPRAY IN EACH NOSTRIL TWICE DAILY, # 16 Gm, 1 Refills, Maintenance, 05/18/22 13:57:00 EST, [facility] #[id number], 30, SHAKE LIQUID AND USE 1 SPRAY IN EACH NOSTRIL TWICE DAILY, 153, cm, 04/25/22 16:23:00 E... Start Date: 05/18/22 Status: Ordered gabapentin 800 mg oral tablet 1 tablet, By Mouth, 4 times a day, # 360 tablet, 1 Refills, Maintenance, 04/19/22 12:59:00 EST, [facility] #[id number], 153, cm, 01/04/22 13:15:00 EDT, Height, 113.9, [...] capsule, 1 Refills, Maintenance, 12/08/21 10:10:00 EDT, [facility] #[id number], 153, cm, 10/08/21 13:23:00 EDT, Height, 113.9,kg, [...] 1 Refills, Maintenance, 04/28/22 13:51:00 EST, Tablet, [facility] #[id number], Partial fill upon patient request if the prescription is for a schedule II opioid drug., 153, cm... Start Date: 04/28/22 Status: Ordered lidocaine 4% topical cream 1 application, Topically, 3 times a day, PRN pain of forearms, # 30 Gm, 1 Refills, Acute 06/23/22 16:24:00 EST, 04/25/22 16:23:00 EST, Cream, [facility] #[id number], Partial fill upon patient request if the prescription is for a schedule II opioi... Start Date: 04/25/22 Stop Date: 06/23/22 Status: Ordered meloxicam 15 mg oral tablet 1/2 TO 1 TABLET, By Mouth, Daily, PRN NEEDED FOR MODERATE PAIN, # 30 tablet, 5 Refills, Maintenance, 01/10/22 20:40:00 EDT, [facility] #[id number], 153, cm, 01/04/22 13:15:00 EDT, Height, 113.9, [...] capsule, 1 Refills, Maintenance, 04/19/22 12:41:00 EST, [facility] #[id number], 153, cm, 01/04/22 13:15:00 EDT, Height, 113.9, kg, 10/08/21 13:23:00 EDT, Dry Weight Start Date: 04/19/22 Status: Ordered ondansetron 4 mg oral tablet 1 tablet, By Mouth, Every 8 hours, PRN NEEDED FOR NAUSEA OR VOMITING, # 30 tablet, 1 Refills, Maintenance, 04/14/22 21:15:00 EST, [facility] #[id number], 153, cm, 01/04/22 13:15:00 EDT, Height, 113.9, kg, 10/08/21 13:23:00 EDT, Dry Weight Start Date: 04/14/22 Status: Ordered oxybutynin 5 mg oral tablet 1 tablet, By Mouth, 3 times a day, # 270 tablet, 1 Refills, 01/10/22 10:29:00 EDT, [facility] #[id number], 153, cm, 01/04/22 13:15:00 EDT, Height, 113.9, [...] 04/14/22 21:16:00 EST, Route to Pharmacy Electronically, [facility] #[id number], Partial fill upon patient request if the... [...] Team Personnel Name: Kaiden Chirinos MD Position: [facility] Primary Care Physician Member Role: PCP Address: Address: [address] [place] [address] Adult & [place] [address]- Care Team Related Persons Name: RODOLFO SHEIKH Address: home [address] [facility] [address] [place] [id number] Name: CHIARA TEE Address: home [address] [place] [address] [place] [id number]
--- OUTSIDE RECORDS SUMMARY | 2022-12-30 08:15 | XMS_ITS | Continuity of Care Document ---
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 Start Date: 12/22/21 Status: Ordered albuterol 0.083% inhalation solution 3 mL = 2.5 mg, Inhalation, Every 4 hours, PRN for wheezing/cough/shortness of breath, # 25 each, 0 Refills, Maintenance, 10/14/21 22:10:00 EDT, Solution, [facility] #[id number], Partial fill upon patient request if the prescription is for a sched... Start Date: 10/14/21 Status: Ordered Augmentin 875 mg-125 mg oral tablet 1 tablet, By Mouth, Every 12 hours, for 10 days, take with food, # 20 tablet, 0 Refills, Acute 02/19/22 9:13:00 EDT, 02/09/22 9:13:00 EDT, Tablet, [facility] #[id number], Partial fill upon patient request if the prescription is for a schedule II... Start Date: 02/09/22 Stop Date: 02/19/22 Status: Ordered [place] Saline Mist 0.65% nasal spray 2 sprays, Nares, Both, 4 times a day, # 1 each, 0 Refills, Maintenance, 02/04/22 13:32:00 EDT, [facility] #[id number], Partial fill upon patient request if the [...] tablet, 0 Refills, Maintenance, 12/27/21 13:43:00 EDT, [facility] #[id number], 153, cm, 10/08/21 13:23:00 EDT, Height, 113.9, kg, 10/08/21 13:23:00EDT, Dry Weight Start Date: 12/27/21 Status: Ordered clonazePAM 0.5 mg oral tablet 1 tablet = 0.5 mg, By Mouth, 4 times a day, PRN Anxiety, Patient on controlled substance contract. Please do NOT fill until 09/23/2020, # 112 tablet, 0 Refills, Maintenance, 11/18/20 21:02:00 EDT, Tablet, [facility]/pharmacy #[id number], Partial fill upon patient... Start Date: 11/18/20 Status: Ordered diclofenac 1% topical gel = 1 Gm, Topically, 4 times a day, FOR PAIN., # 100 Gm, 1 Refills, [facility] 27051, 30, APPLY 1 GM TOPICALLY 4 TIMES A DAY FOR PAIN, 153, cm, 06/07/21 11:07:00 EST, Height, 105, kg, 05/31/21 15:15:00 EST, Dry Weight Start Date: 08/05/21 Status: Ordered Dilaudid 2 mg oral tablet 1 tablet = 2 mg, By Mouth, 2 times a day, PRN Pain , Severe, checked masspat, # 28 tablet, 0 Refills, Maintenance, 02/04/22 13:38:00 EDT, Tablet, [facility] #[id number], Partial fill upon patient request if the prescription is for a schedule II o... Start Date: 02/04/22 Status: Ordered Estrace Vaginal Cream 0.1 mg/g = 2 Gm, Vaginally, Daily at bedtime, 2g PV daily at bedtime x 2 weeks, then 1g PV 1-3x per week, # 42.5 Gm, 5 Refills, Maintenance, 11/09/21 11:17:00 EDT, [facility] #[id number], Partial fill upon patient request if the prescription is for a sche... Start Date: 11/09/21 Status: Ordered Estradiol Patch 0.0375 mg/24 hours twice weekly transdermal film, extended release See Instructions, APPLY 1 PATCH TOPICALLY TWICE WEEKLY DIRECTED, # 8 patch, 0 Refills, Maintenance, 02/01/22 11:03:00 EDT, [facility] #[id number], 28, APPLY 1 PATCH TOPICALLY TWICE WEEKLY DIRECTED, 153, cm, 01/04/22 13:15:00 EDT, Height, 11... Start Date: 02/01/22 Status: Ordered gabapentin 800 mg oral tablet See Instructions, TAKE 1 TABLET BY MOUTH FOUR TIMES DAILY, # 360 tablet, 0 Refills, [facility] #[id number], 153, cm, 10/08/21 13:23:00 EDT, Height, 113.9, [...] capsule, 1 Refills, Maintenance, 12/08/21 10:10:00 EDT, [facility] #[id number], 153, cm, 10/08/21 13:23:00 EDT, Height, 113.9,kg, 10/08/21 13:23:00 EDT, Dry Weight Start Date: 12/08/21 Status: Ordered Incontenence Pads, Extra Long Day Time Incontenence Pads, Extra Long Day Time, See Instructions, # 120 each, Refills 11, Tot. Refills 11, Maintenance, Use for Dx: urinary incontenence R32 Duration of need: x99, 02/05/22 23:44:00 EDT, Supply, 153, cm, 01/04/22 13:15:00 EDT, Height, 113.9... Start Date: 02/05/22 Status: Ordered Incontenence Pads, Night Time Extra Long Heavy Incontenence Pads, Night Time Extra Long Heavy, See Instructions, # 90 each, Refills 11, Tot. Refills 11, Maintenance, Use for Dx: urinary incontenence R32 Duration of need x 99, 02/07/22 9:09:00 EDT, Supply Start Date: 02/07/22 Status: Ordered levothyroxine 0.112 mg oral tablet 1 tablet = 112 mcg, By Mouth, Daily, avoid antacids, calcium, or iron for at least 4 hrs before or 4 hrs after on an empty stomach dose increase, # 30 tablet, 1 Refills, Maintenance, 11/30/21 15:44:00 EDT, Tablet, [facility] #[id number], [place]... Start Date: 11/30/21 Status: Ordered levothyroxine 0.112 mg oral tablet 1 tablet, By Mouth, Daily, AVOID ANTACIDS, CALCIUM, OR IRON FOR AT LEAST 4 HOURS BEFORE OR 4 HOURS AFTER; ON AN ON AN EMPTY STOMACH, # 90 tablet, 0 Refills, Maintenance, 01/20/22 17:46:00 EDT, [facility] #[id number], 153, cm, 01/04/22 13:15:00 ED... Start Date: 01/20/22 Status: Ordered lidocaine 3% topical gel 1 application, Topically, 2 times a day, PRN as needed for pain, to replace 2% topical, # 28.5 Gm, 2 Refills, Acute 03/29/22 14:17:00 EST, 12/28/21 14:17:00 EDT, Gel, [facility] #[id number], Partial fill upon patient request if the prescription i... Start Date: 12/28/21 Stop Date: 03/29/22 Status: Ordered meloxicam 15 mg oral tablet 1/2 TO 1 TABLET, By Mouth, Daily, PRN NEEDED FOR MODERATE PAIN, # 30 tablet, 5 Refills, Maintenance, 01/10/22 20:40:00 EDT, [facility] #[id number], 153, cm, 01/04/22 13:15:00 EDT, Height, 113.9, [...] capsule, 0 Refills, Maintenance, 01/16/22 8:28:00 EDT, [facility] #[id number], 153, cm, 01/04/22 13:15:00 EDT, Height, 113.9, kg, 10/08/21 13:23:00 EDT, Dry Weight Start Date: 01/16/22 Status: Ordered ondansetron 4 mg oral tablet 1 tablet = 4 mg, By Mouth, Every 8 hours, PRN Nausea & Vomiting, # 30 tablet, 1 Refills, Maintenance, 11/10/21 14:47:00 EDT, [facility] #[id number], 153, cm, 10/08/21 13:23:00 EDT, Height, 113.9, kg, 10/08/21 13:23:00 EDT, Dry Weight Start Date: 11/10/21 Status: Ordered oxybutynin 5 mg oral tablet 1 tablet, By Mouth, 3 times a day, # 270 tablet, 1 Refills, 01/10/22 10:29:00 EDT, [facility] #[id number], 153, cm, 01/04/22 13:15:00 EDT, Height, 113.9, [...] Name: Candis CARDENAS, Kaiden Villalta Address: Address: [address] [place] [address] Adult & Pediatric Medicine [place], [place] [address]
--- OUTSIDE RECORDS SUMMARY | 2022-12-30 08:15 | XMS_ITS | Continuity of Care Document ---
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 Allergies, Adverse Reactions, Alerts Substance Reaction Severity Status morphine Active Adhesive Bandage Active Percocet 7.5/325 Active Medications amitriptyline 10 mg oral tablet 10 mg, 1, tablet, By Mouth, Daily at bedtime, # 90 tablet, Refills 1, Tot. Refills 1, Maintenance, 09/07/20 11:05:00 EDT, Route to Pharmacy Electronically, [facility]/pharmacy #[id number], Partial fill upon patient request if the prescription is for a schedule II... Start Date: 09/07/20 Status: Ordered amitriptyline 10 mg oral tablet 10 mg, 1, tablet, By Mouth, Daily at bedtime, # 90 tablet, Refills 1, Tot. Refills 1, Maintenance, 09/22/20 16:39:00 EDT, Route to Pharmacy Electronically, [facility]/pharmacy #[id number], Partial fill upon patient request if the prescription is for a schedule II... Start Date: 09/22/20 Status: Ordered baclofen 10 mg oral tablet 10 mg, 1, tablet, By Mouth, 3 times a day, PRN, # 30 tablet, Refills 0, Tot. Refills 0, Maintenance, Spasm, 01/31/19 21:47:23 EDT, Route to Pharmacy Electronically, [id number], [facility]/pharmacy #[id number] Start Date: 01/31/19 Stop Date: 02/14/19 Status: Ordered clonazePAM 0.5 mg oral tablet 1 tablet = 0.5 mg, By Mouth, 4 times a day, PRN Anxiety, Patient on controlled substance contract. Please do NOT fill until 09/23/2020, # 112 tablet, 1 Refills, Maintenance, 09/22/20 16:54:00 EDT, Tablet, [facility]/pharmacy #[id number], Partial fill upon patient... [...] 0 Refills, Maintenance, 10/21/20 16:27:00 EDT, ECCapsule, [facility]/pharmacy #[id number], Partial fill upon patient request if the prescription is for a schedule II opioid drug., 160, cm, 09/07/20 13:05:00 EDT, H... Start Date: 10/21/20 Status: Ordered ProAir HFA 90 mcg/inh inhalation aerosol 2 puffs, Inhalation, Every 4 hours, PRN as needed for wheezing, # 8.5 Gm, 0 Refills, Maintenance, 09/01/20 20:10:00 EDT, Aerosol, [facility]/pharmacy #[id number], Partial fill upon patient [...] with sertraline 100mg tab in morning for [id number] per day, # 90 tablet, 1 Refills, [...]
--- OUTSIDE RECORDS SUMMARY | 2022-12-30 08:15 | XMS_ITS | Continuity of Care Document ---
Author Name Unknown Organization 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 [address] [place], [place] [address] Allergies, Adverse Reactions, Alerts Substance [...] # 8.5 Gm,0 Refills, Maintenance, 12/22/21 10:40:00 [facility] #[id number], 2 puffs Inhalation Every 4 hours,PRN: NEEDED FOR WHEEZING/cough/shortness... Start Date: 12/22/21 Status: Ordered albuterol 0.083% inhalation solution 3 mL = 2.5 mg, Inhalation, Every 4 hours, PRN for wheezing/cough/shortness of breath, # 25 each, 0 Refills, Maintenance, 06/29/22 13:08:00 EDT, Solution, [facility] #[id number], Partial fill upon patient request if the prescription is for a sched... Start Date: 06/29/22 Status: Ordered Ora Saline Mist 0.65% nasal spray 2 sprays, Nares, Both, 4 times a day, # 1 each, 0 Refills, Maintenance, 02/04/22 13:32:00 EDT, [facility] #[id number], Partial fill upon patient request if the [...] tablet, 0 Refills, Maintenance, 12/27/21 13:43:00 EDT, [facility] #[id number], 153, cm, 10/08/21 13:23:00 EDT, Height, 113.9, kg, 10/08/21 13:23:00EDT, Dry Weight Start Date: 12/27/21 Status: Ordered chlorhexidine 2% topical liquid See Instructions, 1 application to bilateral forearms twice weekly, # 120 mL, 3 Refills, Soft Stop,06/17/22 11:06:00 EST, Liquid, [facility] #[id number], Partial fill upon patient request if the prescription is for a schedule II opioid drug., 1... Start Date: 06/17/22 Status: Ordered chlorhexidine 4% topical soap See Instructions, apply topically twice weekly to skin on forearms, # 120 mL, 2 Refills, Soft Stop,06/17/22 16:03:00 EST, [facility] #[id number], Partial fill upon patient request if the prescription is for a schedule II opioid drug., apply topi... Start Date: 06/17/22 Status: Ordered clonazePAM 0.5 mg oral tablet 1 tablet = 0.5 mg, By Mouth, 4 times a day, PRN Anxiety, Patient on controlled substance contract. Please do NOT fill until 09/23/2020, # 112 tablet, 0 Refills, Maintenance, 11/18/20 21:02:00 EDT, Tablet, [facility]/pharmacy #[id number], Partial fill upon patient... Start Date: 11/18/20 Status: Ordered diclofenac 1% topical gel = 1 Gm, Topically, 4 times a day, FOR PAIN., # 100 Gm, 1 Refills, [facility], 30, APPLY 1 GM TOPICALLY 4 TIMES A DAY FOR PAIN, 153, cm, 06/07/21 11:07:00 EST, Height, 105, kg, 05/31/21 15:15:00 EST, Dry Weight Start Date: 08/05/21 Status: Ordered Dilaudid 2 mg oral tablet 1 tablet = 2 mg, By Mouth, 2 times a day, PRN Pain , Severe, checked masspat, # 56 tablet, 0 Refills, Maintenance, 08/26/22 14:09:00 EDT, Tablet, [facility] #[id number], Partial fill upon patient request if the prescription is for a schedule II o... Start Date: 08/26/22 Status: Ordered Estrace Vaginal Cream 0.1 mg/g = 2 Gm, Vaginally, Daily at bedtime, 2g PV daily at bedtime x 2 weeks, then 1g PV 1-3x per week, # 42.5 Gm, 5 Refills, Maintenance, 11/09/21 11:17:00 EDT, [facility] #[id number], Partial fill upon patient request if the prescription is for a sche... Start Date: 11/09/21 Status: Ordered Estradiol Patch 0.0375 mg/24 hours twice weekly transdermal film, extended release See Instructions, APPLY 1 PATCH TOPICALLY TWICE WEEKLY DIRECTED, # 8 patch, 6 Refills, Maintenance, 03/23/22 16:10:00 EST, [facility] #[id number], 28, APPLY 1 PATCH TOPICALLY TWICE WEEKLY DIRECTED, 153, cm, 01/04/22 13:15:00 EDT, Height, 11... Start Date: 03/23/22 Status: Ordered fluconazole 150 mg oral tablet 1 tablet = 150 mg, By Mouth, Once, PRN vaginal yeast infection, # 1 tablet, 0 Refills, Soft Stop, 03/15/22 10:42:00 EST, Tablet, [facility] #[id number], Partial fill upon patient request if the prescription is for a schedule II opioid drug., 153,... Start Date: 03/15/22 Status: Ordered fluticasone 50 mcg/inh nasal spray See Instructions, SHAKE LIQUID AND USE 1 SPRAY IN EACH NOSTRIL TWICE DAILY, # 16 Gm, 1 Refills, Maintenance, 05/18/22 13:57:00 EST, [facility] #[id number], 30, SHAKE LIQUID AND USE 1 SPRAY IN EACH NOSTRIL TWICE DAILY, 153, cm, 04/25/22 16:23:00 E... Start Date: 05/18/22 Status: Ordered gabapentin 800 mg oral tablet 1 tablet, By Mouth, 4 times a day, # 360 tablet, 1 Refills, Maintenance, 04/19/22 12:59:00 EST, [facility] #[id number], 153, cm, 01/04/22 13:15:00 EDT, Height, 113.9, [...] capsule, 1 Refills, Maintenance, 07/18/22 9:45:00 EDT, [facility] #[id number], 153, cm, 06/17/22 10:53:00 EST, Height, 109, [...] 1 Refills, Maintenance, 04/28/22 13:51:00 EST, Tablet, [facility] #[id number], Partial fill upon patient request if the prescription is for a schedule II opioid drug., 153, cm... Start Date: 04/28/22 Status: Ordered lidocaine 4% topical cream 1 application, Topically, 3 times a day, PRN Pain , Mild, # 30 Gm, 1 Refills, Maintenance, 06/24/2315:24:00 EST, Cream, [facility] #[id number], Partial fill upon patient request if the prescription is for a schedule II opioid drug., 1 applicatio... Start Date: 06/23/22 Status: Ordered meloxicam 15 mg oral tablet 1/2 TO 1 TABLET, By Mouth, Daily, PRN NEEDED FOR MODERATE PAIN, # 30 tablet, 5 Refills, Maintenance, 01/10/22 20:40:00 EDT, [facility] #[id number], 153, cm, 01/04/22 13:15:00 EDT, Height, 113.9, [...] capsule, 1 Refills, Maintenance, 07/26/22 14:24:00 EDT, [facility] #[id number], 153, cm, 06/17/22 10:53:00 EST, Height, 109, kg, 06/17/22 10:53:00 EST, Dry Weight Start Date: 07/26/22 Status: Ordered ondansetron 4 mg oral tablet 1 tablet, By Mouth, Every 8 hours, PRN NEEDED FOR NAUSEA OR VOMITING, # 30 tablet, 1 Refills, Maintenance, 06/14/22 10:29:00 EST, [facility] #[id number], 153, cm, 06/08/22 9:37:00 EST, Height, 109, kg, 04/25/22 15:54:00 EST, Dry Weight Start Date: 06/14/22 Status: Ordered oxybutynin 5 mg oral tablet 1 tablet, By Mouth, 3 times a day, # 270 tablet, 0 Refills, Maintenance, 07/05/22 8:13:00 EDT, [facility] #[id number], 153, cm, 06/17/22 10:53:00 EST, Height, 109, [...] 07/01/22 14:21:00 EDT, Route to Pharmacy Electronically, [facility] #[id number], Partial fill upon patient request if the... Start Date: 07/01/22 Status: Ordered triamcinolone 0.1% topical cream 1 application, Topically, 3 times a day, PRN arm rash, # 30 Gm, 1 Refills, Acute 06/08/23 9:53:00 EST, 06/08/22 9:53:00 EST, Cream, [facility] #[id number], Partial fill upon patient request if the prescription is for a schedule II opioid drug., 1... Start Date: 06/08/22 Stop Date: 06/08/23 Status: Ordered valacyclovir 1 gm oral tablet 1 tablet = 1 Gm, By Mouth, Every 8 hours, for 7 days, # 21 tablet, 1 Refills, Acute 09/09/22 17:03:00 EDT, 08/26/22 17:03:00 EDT, Tablet, [facility] #[id number], Partial fill upon patient request if the [...] Care Physician Member Role: PCP Address: Address: [address] [place] [address] Adult [facility] [place] [address]- Care Team Related Persons Name: RODOLFO SHEIKH Address: home [address] [facility] [address] [place] [address] Name: CHIARA TEE Address: home [address] [place] [address] [place] [id number]
--- OUTSIDE RECORDS SUMMARY | 2022-12-30 08:15 | XMS_ITS | Continuity of Care Document ---
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 Start Date: 12/24/20 Status: Ordered baclofen 10 mg oral tablet 10 mg, 1, tablet, By Mouth, 3 times a day, PRN, # 30 tablet, Refills 0, Tot. Refills 0, Maintenance, Spasm, 01/31/19 21:47:23 EDT, Route to Pharmacy Electronically, [id number], [facility]/pharmacy #[id number] Start Date: 01/31/19 Stop Date: 02/14/19 Status: Ordered clonazePAM 0.5 mg oral tablet 1 tablet = 0.5 mg, By Mouth, 4 times a day, PRN Anxiety, Patient on controlled substance contract. Please do NOT fill until 09/23/2020, # 112 tablet, 0 Refills, Maintenance, 11/18/20 21:02:00 EDT, Tablet, [facility]/pharmacy #[id number], Partial fill upon patient... Start Date: 11/18/20 Status: Ordered Famotidine 0 Refills, Maintenance, 04/07/19 16:11:00 EST Start Date: 04/07/19 Status: Ordered gabapentin 800 mg oral tablet 1 tablet = 800 mg, By Mouth, 4 times a day, # 360 tablet, 1 Refills, Maintenance, 11/09/20 23:47:00EDT, Tablet, [facility]/pharmacy #[id number], Partial fill upon patient request [...] 0 Refills, Maintenance, 11/16/20 8:39:00 EDT, Aerosol, [facility]/pharmacy #[id number], Partial fill upon patient request [...] 1 Refills, Maintenance, 10/30/20 8:45:00 EDT, Tablet, [facility]/pharmacy #[id number], Partial fill upon patient reques... Start Date: 10/30/20 Status: Ordered traZODone 150 mg oral tablet 1 tablet = 150 mg, By Mouth, Daily at bedtime, dose increase, # 90 tablet, 1 Refills, Maintenance, 11/03/20 13:28:00 EDT, Tablet, [facility]/pharmacy #[id number], Partial fill upon patient request [...]
--- OUTSIDE RECORDS SUMMARY | 2022-12-30 08:15 | XMS_ITS | Continuity of Care Document ---
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 Start Date: 12/24/20 Status: Ordered baclofen 10 mg oral tablet 10 mg, 1, tablet, By Mouth, 3 times a day, PRN, # 30 tablet, Refills 0, Tot. Refills 0, Maintenance, Spasm, 01/31/19 21:47:23 EDT, Route to Pharmacy Electronically, [id number], [facility]/pharmacy #[id number] Start Date: 01/31/19 Stop Date: 02/14/19 Status: Ordered benzonatate 100 mg oral capsule 2 capsule, By Mouth, 3 times a day, PRN NEEDED FOR COUGH, # 30 capsule, 1 Refills, Physician Stop 02/19/22 16:55:00 EDT, 02/19/21 16:54:00 EDT, [facility]/pharmacy #[id number], 160, cm, 12/04/20 10:52:00 EDT, Height, 104.6, kg, 12/04/20 10:52:00 EDT, Dry Weight Start Date: 02/19/21 Stop Date: 02/19/22 Status: Ordered clonazePAM 0.5 mg oral tablet 1 tablet = 0.5 mg, By Mouth, 4 times a day, PRN Anxiety, Patient on controlled substance contract. Please do NOT fill until 09/23/2020, # 112 tablet, 0 Refills, Maintenance, 11/18/20 21:02:00 EDT, Tablet, [facility]/pharmacy #[id number], Partial fill upon patient... Start Date: 11/18/20 Status: Ordered Famotidine 0 Refills, Maintenance, 04/07/19 16:11:00 EST Start Date: 04/07/19 Status: Ordered gabapentin 800 mg oral tablet 1 tablet = 800 mg, By Mouth, 4 times a day, # 360 tablet, 1 Refills, Maintenance, 11/09/20 23:47:00EDT, Tablet, [facility]/pharmacy #[id number], Partial fill upon patient [...] 1 Refills, Maintenance, 02/25/21 8:28:00 EST, Capsule, [facility]/pharmacy #0936, Partial fill upon patient request if the [...] 1 Refills, Maintenance, 11/05/20 11:43:00 EDT, Tablet, [facility]/pharmacy #[id number], Partial fill upon patient request if the prescription is for a schedule II opioid drug., 160, cm, 10/30/20 8:2... Start Date: 11/05/20 Status: Ordered meloxicam 15 mg oral tablet 1/2 TO 1 TABLET, By Mouth, Daily, PRN NEEDED FOR MODERATE PAIN, # 30 tablet, 1 Refills, [facility] 370[facility], 160, cm, 12/04/20 10:52:00 EDT, Height, 104.6, [...] # 15 tablet, 0 Refills, [facility], 160, cm, 12/04/20 10:52:00 EDT, Height, 104.6, [...] 0 Refills, Maintenance, 11/16/20 8:39:00 EDT, Aerosol, [facility]/pharmacy #[id number], Partial fill upon patient [...] Refills, Maintenance, 11/03/20 13:28:00 EDT, Tablet, [facility][id number], Partial fill upon patient request if the [...]
--- OUTSIDE RECORDS SUMMARY | 2022-12-30 08:15 | XMS_ITS | Continuity of Care Document ---
Author Name Unknown Organization [facility] Address [address] [place] [address]- Care Team Providers Care Store Facility Technician Name Role Phone Candis CARDENAS, Kaiden Villalta Primary Care Physician Encounter [facility] [place] Date(s): 10/12/21 - 11/11/21 [facility] [address] [place], [place] [address] Allergies, Adverse Reactions, Alerts Substance Reaction [...] 8.5 Gm,0 Refills, Maintenance, 09/28/21 16:57:00 EDT, [facility] #[id number], 2 puffs Inhalation Every 4 hours,PRN: NEEDED FOR WHEEZING/cough/shortness... Start Date: 09/28/21 Status: Ordered albuterol 0.083% inhalation solution 3 mL = 2.5 mg, Inhalation, Every 4 hours, PRN for wheezing/cough/shortness of breath, # 25 each, 0 Refills, Maintenance, 10/14/21 22:10:00 EDT, Solution, [facility] #[id number], Partial fill upon patient request if the prescription is for a sched... Start Date: 10/14/21 Status: Ordered benzonatate 100 mg oral capsule 2 capsule, By Mouth, 3 times a day, PRN NEEDED FOR COUGH, # 30 capsule, 1 Refills, Physician Stop 11/10/22 14:46:00 EDT, 03/19/22 17:38:00 EST, [facility] #[id number], 153, cm, 10/08/21 13:23:00 EDT, Height, 113.9, kg, 10/08/21 13:23:00 EDT, D... Start Date: 03/19/22 Stop Date: 11/10/22 Status: Ordered budesonide 1 mg/2 mL inhalation suspension 2 mL = 1 mg, Neb, 2 times a day, rinse mouth out after use, # 120 mL, 1 Refills, Maintenance, 10/25/21 18:30:00 EDT, Suspension, [facility] #[id number], Partial fill upon patient request if the [...] FOR PAIN., # 100 Gm, 1 Refills, [facility] 75578, 30, APPLY 1 GM TOPICALLY 4 TIMES A DAY FOR PAIN, 153, cm, 06/07/21 11:07:00 EST, Height, 105, kg, 05/31/21 15:15:00 EST, Dry Weight Start Date: 08/05/21 Status: Ordered Dilaudid 2 mg oral tablet 1 tablet = 2 mg, By Mouth, 2 times a day, PRN Pain , Severe, checked masspat, # 28 tablet, 0 Refills, Maintenance, 11/10/21 14:47:00 EDT, Tablet, [facility] #[id number], Partial fill upon patient request if the prescription is for a schedule II o... Start Date: 11/10/21 Status: Ordered Estrace Vaginal Cream 0.1 mg/g = 2 Gm, Vaginally, Daily at bedtime, 2g PV daily at bedtime x 2 weeks, then 1g PV 1-3x per week, # 42.5 Gm, 5 Refills, Maintenance, 11/09/21 11:17:00 EDT, [facility] #[id number], Partial fill upon patient request if the prescription is for a sche... Start Date: 11/09/21 Status: Ordered gabapentin 800 mg oral tablet See Instructions, TAKE 1 TABLET BY MOUTH FOUR TIMES DAILY, # 360 tablet, 0 Refills, [facility] #[id number], 153, cm, 10/08/21 13:23:00 EDT, Height, 113.9, [...] capsule, 1 Refills, Maintenance, 09/28/21 16:58:00 EDT, [facility] #[id number], 153, cm, 08/10/21 11:19:00 EDT, Height, 105, [...] 1 Refills, Maintenance, 07/30/21 12:25:00 EDT, Tablet, [facility] #[id number], Partial fill upon patient request if the prescription is for a schedule II opioid drug... Start Date: 07/30/21 Status: Ordered levothyroxine 0.1 mg oral tablet 1 tablet = 100 mcg, By Mouth, Daily, dose increase, # 90 tablet, 0 Refills, Maintenance, 11/01/21 16:08:00 EDT, [facility] #[id number], Please discontinue 88ug, 153, cm, 10/08/21 13:23:00 EDT, Height, 113.9, kg, 10/08/21 13:23:00 EDT, Dry Weight Start Date: 11/01/21 Status: Ordered lidocaine 2% topical gel with applicator 5 mL = 0.1 Gm, Topically, 2 times a day, PRN Pain , Moderate, # 60 mL, 2 Refills, Soft Stop, 09/24/21 16:43:00 EDT, Gel, [facility] #[id number], Partial fill upon patient request if the [...] 90 capsule, 0 Refills, 09/27/21 14:31:00 EDT, [facility] #[id number], 153, cm, 08/10/21 11:19:00 EDT, Height, 105, kg, 05/31/21 15:15:00 EST, Dry Weight Start Date: 09/27/21 Status: Ordered ondansetron 4 mg oral tablet 1 tablet = 4 mg, By Mouth, Every 8 hours, PRN Nausea & Vomiting, # 30 tablet, 1 Refills, Maintenance, 11/10/21 14:47:00 EDT, [facility] #[id number], 153, cm, 10/08/21 13:23:00 EDT, Height, 113.9, kg, 10/08/21 13:23:00 EDT, Dry Weight Start Date: 11/10/21 Status: Ordered oxybutynin 5 mg oral tablet 1 tablet, By Mouth, 3 times a day, # 270 tablet, 1 Refills, [facility], 153, cm, 08/10/21 11:19:00 EDT, Height, 105, [...] 1 Refills, Maintenance, 07/30/21 12:22:00 EDT, Tablet, [facility] #[id number], Partial fill upon patient request if the [...]
--- OUTSIDE RECORDS SUMMARY | 2022-12-30 08:15 | XMS_ITS | Continuity of Care Document ---
Author Name Unknown Organization 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 [address] [place], [place] [address] Allergies, Adverse Reactions, Alerts [...] 8.5 Gm,0 Refills, Maintenance, 12/22/21 10:40:00 EDT, [facility] #[id number], 2 puffs Inhalation Every 4 hours,PRN: NEEDED FOR WHEEZING/cough/shortness... Start Date: 12/22/21 Status: Ordered albuterol 0.083% inhalation solution 3 mL = 2.5 mg, Inhalation, Every 4 hours, PRN for wheezing/cough/shortness of breath, # 25 each, 0 Refills, Maintenance, 10/14/21 22:10:00 EDT, Solution, [facility] #[id number], Partial fill upon patient request if the prescription is for a sched... Start Date: 10/14/21 Status: Ordered Kirwin Saline Mist 0.65% nasal spray 2 sprays, Nares, Both, 4 times a day, # 1 each, 0 Refills, Maintenance, 02/04/22 13:32:00 EDT, [facility] #[id number], Partial fill upon patient request if the [...] tablet, 0 Refills, Maintenance, 12/27/21 13:43:00 EDT, [facility] #[id number], 153, cm, 10/08/21 13:23:00 EDT, Height, 113.9, kg, 10/08/21 13:23:00EDT, Dry Weight Start Date: 12/27/21 Status: Ordered clonazePAM 0.5 mg oral tablet 1 tablet = 0.5 mg, By Mouth, 4 times a day, PRN Anxiety, Patient on controlled substance contract. Please do NOT fill until 09/23/2020, # 112 tablet, 0 Refills, Maintenance, 11/18/20 21:02:00 EDT, Tablet, [facility]/pharmacy #[id number], Partial fill upon patient... Start Date: 11/18/20 Status: Ordered diclofenac 1% topical gel = 1 Gm, Topically, 4 times a day, FOR PAIN., # 100 Gm, 1 Refills, [facility], 30, APPLY 1 GM TOPICALLY 4 TIMES A DAY FOR PAIN, 153, cm, 06/07/21 11:07:00 EST, Height, 105, kg, 05/31/21 15:15:00 EST, Dry Weight Start Date: 08/05/21 Status: Ordered Dilaudid 2 mg oral tablet 1 tablet = 2 mg, By Mouth, 2 times a day, PRN Pain , Severe, checked masspat, # 56 tablet, 0 Refills, Maintenance, 05/05/22 17:13:00 EST, Tablet, [facility] #31966, Partial fill upon patient request if the prescription is for a schedule II o... Start Date: 05/05/22 Status: Ordered Estrace Vaginal Cream 0.1 mg/g = 2 Gm, Vaginally, Daily at bedtime, 2g PV daily at bedtime x 2 weeks, then 1g PV 1-3x per week, # 42.5 Gm, 5 Refills, Maintenance, 11/09/21 11:17:00 EDT, [facility] #[id number], Partial fill upon patient request if the prescription is for a sche... Start Date: 11/09/21 Status: Ordered Estradiol Patch 0.0375 mg/24 hours twice weekly transdermal film, extended release See Instructions, APPLY 1 PATCH TOPICALLY TWICE WEEKLY DIRECTED, # 8 patch, 6 Refills, Maintenance, 03/23/22 16:10:00 EST, [facility] #[id number], 28, APPLY 1 PATCH TOPICALLY TWICE WEEKLY DIRECTED, 153, cm, 01/04/22 13:15:00 EDT, Height, 11... Start Date: 03/23/22 Status: Ordered fluconazole 150 mg oral tablet 1 tablet = 150 mg, By Mouth, Once, PRN vaginal yeast infection, # 1 tablet, 0 Refills, Soft Stop, 03/15/22 10:42:00 EST, Tablet, [facility] #[id number], Partial fill upon patient request if the prescription is for a schedule II opioid drug., 153,... Start Date: 03/15/22 Status: Ordered fluticasone 50 mcg/inh nasal spray See Instructions, SHAKE LIQUID AND USE 1 SPRAY IN EACH NOSTRIL TWICE DAILY, # 16 Gm, 1 Refills, Maintenance, 05/18/22 13:57:00 EST, [facility] #[id number], 30, SHAKE LIQUID AND USE 1 SPRAY IN EACH NOSTRIL TWICE DAILY, 153, cm, 04/25/22 16:23:00 E... Start Date: 05/18/22 Status: Ordered gabapentin 800 mg oral tablet 1 tablet, By Mouth, 4 times a day, # 360 tablet, 1 Refills, Maintenance, 04/19/22 12:59:00 EST, [facility] #[id number], 153, cm, 01/04/22 13:15:00 EDT, Height, 113.9, [...] capsule, 1 Refills, Maintenance, 05/20/22 12:57:00 EST, [facility] #66825, 153, cm, 04/25/22 16:23:00 EST, Height, 109, [...] 1 Refills, Maintenance, 04/28/22 13:51:00 EST, Tablet, [facility] #05849, Partial fill upon patient request if the prescription is for a schedule II opioid drug., 153, cm... Start Date: 04/28/22 Status: Ordered lidocaine 4% topical cream 1 application, Topically, 3 times a day, PRN pain of forearms, # 30 Gm, 1 Refills, Acute 06/23/22 16:24:00 EST, 04/25/22 16:23:00 EST, Cream, [facility] #[id number], Partial fill upon patient request if the prescription is for a schedule II opioi... Start Date: 04/25/22 Stop Date: 06/23/22 Status: Ordered meloxicam 15 mg oral tablet 1/2 TO 1 TABLET, By Mouth, Daily, PRN NEEDED FOR MODERATE PAIN, # 30 tablet, 5 Refills, Maintenance, 01/10/22 20:40:00 EDT, [facility] #[id number], 153, cm, 01/04/22 13:15:00 EDT, Height, 113.9, [...] capsule, 1 Refills, Maintenance, 04/19/22 12:41:00 EST, [facility] #[id number], 153, cm, 01/04/22 13:15:00 EDT, Height, 113.9, kg, 10/08/21 13:23:00 EDT, Dry Weight Start Date: 04/19/22 Status: Ordered ondansetron 4 mg oral tablet 1 tablet, By Mouth, Every 8 hours, PRN NEEDED FOR NAUSEA OR VOMITING, # 30 tablet, 1 Refills, Maintenance, 04/14/22 21:15:00 EST, [facility] #[id number], 153, cm, 01/04/22 13:15:00 EDT, Height, 113.9, kg, 10/08/21 13:23:00 EDT, Dry Weight Start Date: 04/14/22 Status: Ordered oxybutynin 5 mg oral tablet 1 tablet, By Mouth, 3 times a day, # 270 tablet, 1 Refills, 01/10/22 10:29:00 EDT, [facility] #[id number], 153, cm, 01/04/22 13:15:00 EDT, Height, 113.9, [...] 04/14/22 21:16:00 EST, Route to Pharmacy Electronically, [facility] #[id number], Partial fill upon patient request if the... [...] Personnel Name: Candis CARDENAS, Kaiden Villalta Position: [facility] Primary Care Physician Member Role: PCP Address: Address: [address] [place] [address] Adult & [place] [address]- Care Team Related Persons Name: RODOLFO SHEIKH Address: home [address] [facility] [address] [place] [id number] Name: CHIARA TEE Address: home [address] [place] [address] [place] [id number]
--- OUTSIDE RECORDS SUMMARY | 2022-12-30 08:15 | XMS_ITS | Continuity of Care Document ---
Author Name Unknown Organization [facility] Address [address] [place] [address]- Care Team Providers Care Disease Intervention Specialist Name Role Phone Candis CARDENAS, Kaiden Villalta Primary Care Physician [phone] Encounter [facility] ACCT R [id number] Date(s): 02/22/22 - 03/24/22 [facility] [address] [place], [place] [address] Allergies, Adverse Reactions, Alerts [...] 8.5 Gm,0 Refills, Maintenance, 12/22/21 10:40:00 EDT, [facility] #[id number], 2 puffs Inhalation Every 4 hours,PRN: NEEDED FOR WHEEZING/cough/shortness... Start Date: 12/22/21 Status: Ordered albuterol 0.083% inhalation solution 3 mL = 2.5 mg, Inhalation, Every 4 hours, PRN for wheezing/cough/shortness of breath, # 25 each, 0 Refills, Maintenance, 10/14/21 22:10:00 EDT, Solution, [facility] #[id number], Partial fill upon patient request if the prescription is for a sched... Start Date: 10/14/21 Status: Ordered [place] Saline Mist 0.65% nasal spray 2 sprays, Nares, Both, 4 times a day, # 1 each, 0 Refills, Maintenance, 02/04/22 13:32:00 EDT, [facility] #[id number], Partial fill upon patient request if the [...] tablet, 0 Refills, Maintenance, 12/27/21 13:43:00 EDT, [facility] #[id number], 153, cm, 10/08/21 13:23:00 EDT, Height, 113.9, kg, 10/08/21 13:23:00EDT, Dry Weight Start Date: 12/27/21 Status: Ordered clonazePAM 0.5 mg oral tablet 1 tablet = 0.5 mg, By Mouth, 4 times a day, PRN Anxiety, Patient on controlled substance contract. Please do NOT fill until 09/23/2020, # 112 tablet, 0 Refills, Maintenance, 11/18/20 21:02:00 EDT, Tablet, [facility]/pharmacy #[id number], Partial fill upon patient... Start Date: 11/18/20 Status: Ordered diclofenac 1% topical gel = 1 Gm, Topically, 4 times a day, FOR PAIN., # 100 Gm, 1 Refills, [id number], 30, APPLY 1 GM TOPICALLY 4 TIMES A DAY FOR PAIN, 153, cm, 06/07/21 11:07:00 EST, Height, 105, kg, 05/31/21 15:15:00 EST, Dry Weight Start Date: 08/05/21 Status: Ordered Dilaudid 2 mg oral tablet 1 tablet = 2 mg, By Mouth, 2 times a day, PRN Pain , Severe, checked masspat, # 28 tablet, 0 Refills, Maintenance, 03/23/22 22:13:00 EST, Tablet, [facility] #[id number], Partial fill upon patient request if the prescription is for a schedule II o... Start Date: 03/23/22 Status: Ordered Estrace Vaginal Cream 0.1 mg/g = 2 Gm, Vaginally, Daily at bedtime, 2g PV daily at bedtime x 2 weeks, then 1g PV 1-3x per week, # 42.5 Gm, 5 Refills, Maintenance, 11/09/21 11:17:00 EDT, [facility] #[id number], Partial fill upon patient request if the prescription is for a sche... Start Date: 11/09/21 Status: Ordered Estradiol Patch 0.0375 mg/24 hours twice weekly transdermal film, extended release See Instructions, APPLY 1 PATCH TOPICALLY TWICE WEEKLY DIRECTED, # 8 patch, 6 Refills, Maintenance, 03/23/22 16:10:00 EST, [facility] #[id number], 28, APPLY 1 PATCH TOPICALLY TWICE WEEKLY DIRECTED, 153, cm, 01/04/22 13:15:00 EDT, Height, 11... Start Date: 03/23/22 Status: Ordered fluconazole 150 mg oral tablet 1 tablet = 150 mg, By Mouth, Once, PRN vaginal yeast infection, # 1 tablet, 0 Refills, Soft Stop, 03/15/22 10:42:00 EST, Tablet, [facility] #[id number], Partial fill upon patient request if the prescription is for a schedule II opioid drug., 153,... Start Date: 03/15/22 Status: Ordered gabapentin 800 mg oral tablet See Instructions, TAKE 1 TABLET BY MOUTH FOUR TIMES DAILY, # 360 tablet, 0 Refills, [facility] #[id number], 153, cm, 10/08/21 13:23:00 EDT, Height, 113.9, [...] capsule, 1 Refills, Maintenance, 12/08/21 10:10:00 EDT, [facility] #[id number], 153, cm, 10/08/21 13:23:00 EDT, Height, 113.9,kg, [...] 1 Refills, Maintenance, 03/14/22 15:04:00 EST, Tablet, [facility] #[id number], Partial fill upon patient request if the prescription is for a schedule II opioid drug., 153, cm... Start Date: 03/14/22 Status: Ordered lidocaine 3% topical gel 1 application, Topically, 2 times a day, PRN as needed for pain, to replace 2% topical, # 28.5 Gm, 2 Refills, Acute 03/29/22 14:17:00 EST, 12/28/21 14:17:00 EDT, Gel, [facility] #[id number], Partial fill upon patient request if the prescription i... Start Date: 12/28/21 Stop Date: 03/29/22 Status: Ordered meloxicam 15 mg oral tablet 1/2 TO 1 TABLET, By Mouth, Daily, PRN NEEDED FOR MODERATE PAIN, # 30 tablet, 5 Refills, Maintenance, 01/10/22 20:40:00 EDT, [facility] #[id number], 153, cm, 01/04/22 13:15:00 EDT, Height, 113.9, [...] capsule, 0 Refills, Maintenance, 01/16/22 8:28:00 EDT, [facility] #[id number], 153, cm, 01/04/22 13:15:00 EDT, Height, 113.9, kg, 10/08/21 13:23:00 EDT, Dry Weight Start Date: 01/16/22 Status: Ordered ondansetron 4 mg oral tablet 1 tablet, By Mouth, Every 8 hours, PRN NEEDED FOR NAUSEA OR VOMITING, # 30 tablet, 0 Refills, Maintenance, 03/01/22 11:29:00 EST, [facility] #[id number], 153, cm, 01/04/22 13:15:00 EDT, Height, 113.9, kg, 10/08/21 13:23:00 EDT, Dry Weight Start Date: 03/01/22 Status: Ordered oxybutynin 5 mg oral tablet 1 tablet, By Mouth, 3 times a day, # 270 tablet, 1 Refills, 01/10/22 10:29:00 EDT, [facility] #[id number], 153, cm, 01/04/22 13:15:00 EDT, Height, 113.9, [...] 03/14/22 15:10:00 EST, Route to Pharmacy Electronically, [facility] #[id number], Partial fill upon patient request if the... [...] Team Personnel Name: Kaiden Chirinos MD Position: [facility] Primary Care Physician Member Role: PCP Address: Address: [address] [place] [address] Adult [place] [address]- Care Team Related Persons Name: RODOLFO SHEIKH Address: home [address] [place] [address] Name: CHIARA TEE Address: home [address] [place] [address] [address] [place] [address]
--- OUTSIDE RECORDS SUMMARY | 2022-12-30 08:15 | XMS_ITS | Continuity of Care Document ---
Author Name Unknown Organization [facility] Address [address] [place] [address]- Care Team Providers Care Combatant Swimmer Name Role Phone Candis CARDENAS, Kaiden Villalta Primary Care Physician Encounter [facility] ACCT R [id number] Date(s): 09/27/21 - 10/27/21 [facility] [address] [place], [place] [address] Allergies, Adverse Reactions, Alerts Substance [...] 8.5 Gm,0 Refills, Maintenance, 09/28/21 16:57:00 T, [facility] #[id number], 2 puffs Inhalation Every 4 hours,PRN: NEEDED FOR WHEEZING/cough/shortness... Start Date: 09/28/21 Status: Ordered albuterol 0.083% inhalation solution 3 mL = 2.5 mg, Inhalation, Every 4 hours, PRN for wheezing/cough/shortness of breath, # 25 each, 0 Refills, Maintenance, 10/14/21 22:10:00 EDT, Solution, [facility] #[id number], Partial fill upon patient request if the prescription is for a sched... Start Date: 10/14/21 Status: Ordered benzonatate 100 mg oral capsule 2 capsule, By Mouth, 3 times a day, PRN NEEDED FOR COUGH, # 30 capsule, 1 Refills, Physician Stop 03/19/22 17:38:00 EST, 02/19/22 16:55:00 EDT, [facility]/pharmacy #[id number], 160, cm, 12/04/20 10:52:00 EDT, Height, 104.6, kg, 12/04/20 10:52:00 EDT, Dry Weight Start Date: 02/19/22 Stop Date: 03/19/22 Status: Ordered benzonatate 100 mg oral capsule 2 capsule, By Mouth, 3 times a day, PRN NEEDED FOR COUGH, # 30 capsule, 1 Refills, Maintenance, 09/29/21 15:56:00 EDT, [facility] #[id number], 153, cm, 08/10/21 11:19:00 EDT, Height, 105, kg,05/31/21 15:15:00 EST, Dry Weight Start Date: 09/29/21 Status: Ordered budesonide 1 mg/2 mL inhalation suspension 2 mL = 1 mg, Neb, 2 times a day, rinse mouth out after use, # 120 mL, 1 Refills, Maintenance, 10/25/21 18:30:00 EDT, Suspension, [facility] #[id number], Partial fill upon patient request if the [...] PAIN., # 100 Gm, 1 Refills, [id number], 30, APPLY 1 GM TOPICALLY 4 TIMES A DAY FOR PAIN, 153, cm, 06/07/21 11:07:00 EST, Height, 105, kg, 05/31/21 15:15:00 EST, Dry Weight Start Date: 08/05/21 Status: Ordered Dilaudid 2 mg oral tablet 1 tablet = 2 mg, By Mouth, 2 times a day, PRN Pain , Severe, checked masspat, # 28 tablet, 0 Refills, Maintenance, 10/25/21 21:55:00 EDT, Tablet, [facility] #[id number], Partial fill upon patient request if the prescription is for a schedule II o... Start Date: 10/25/21 Status: Ordered Famotidine 0 Refills, Maintenance, 04/07/19 16:11:00 EST Start Date: 04/07/19 Status: Ordered fluconazole 150 mg oral tablet 1 tablet = 150 mg, By Mouth, Once, # 1 tablet, 0 Refills, Soft Stop, 09/21/21 11:15:00 EDT, Tablet,[facility] #[id number], Partial fill upon patient request if the prescription is for a schedule II opioid drug., 153, cm, 08/10/21 11:19:00 EDT, H... Start Date: 09/21/21 Status: Ordered gabapentin 800 mg oral tablet See Instructions, TAKE 1 TABLET BY MOUTH FOUR TIMES DAILY, # 360 tablet, 0 Refills, [facility] #[id number], 153, cm, 10/08/21 13:23:00 EDT, Height, 113.9, [...] capsule, 1 Refills, Maintenance, 09/28/21 16:58:00 EDT, [facility] #[id number], 153, cm, 08/10/21 11:19:00 EDT, Height, 105, [...] 1 Refills, Maintenance, 07/30/21 12:25:00 EDT, Tablet, [facility] #[id number], Partial fill upon patient request if the prescription is for a schedule II opioid drug... Start Date: 07/30/21 Status: Ordered lidocaine 2% topical gel with applicator 5 mL = 0.1 Gm, Topically, 2 times a day, PRN Pain , Moderate, # 60 mL, 2 Refills, Soft Stop, 09/24/21 16:43:00 EDT, Gel, [facility] #[id number], Partial fill upon patient request if the [...] 10/30/21 18:35:00 EDT, 10/25/21 18:35:00 EDT, Capsule, [facility] #[id number], Partial fill upon patient request if the prescription is for a sched... Start Date: 10/25/21 Stop Date: 10/30/21 Status: Ordered omeprazole 20 mg oral enteric coated capsule 1 capsule, By Mouth, Daily, # 90 capsule, 0 Refills, 09/27/21 14:31:00 EDT, [facility] #[id number], 153, cm, 08/10/21 11:19:00 EDT, Height, 105, kg, 05/31/21 15:15:00 EST, Dry Weight Start Date: 09/27/21 Status: Ordered ondansetron 4 mg oral tablet 1 tablet = 4 mg, By Mouth, Every 8 hours, PRN Nausea & Vomiting, # 30 tablet, 1 Refills, Maintenance, 09/28/21 16:56:00 EDT, [facility] #[id number], 153, cm, 08/10/21 11:19:00 EDT, Height, 105, kg, 05/31/21 15:15:00 EST, Dry Weight Start Date: 09/28/21 Status: Ordered oxybutynin 5 mg oral tablet 1 tablet, By Mouth, 3 times a day, # 270 tablet, 1 Refills, [id number], 153, cm, 08/10/21 11:19:00 EDT, Height, 105, [...] 1 Refills, Maintenance, 07/30/21 12:22:00 EDT, Tablet, [facility] #[id number], Partial fill upon patient request if the [...]
--- OUTSIDE RECORDS SUMMARY | 2022-12-30 08:15 | XMS_ITS | Continuity of Care Document ---
Author Name Unknown Organization [facility] Address [address] [place] [address]- Care Team Providers Care Broomcorn Seeder Name Role Phone Kaiden Chirinos MD Primary Care Physician Encounter [facility] Date(s): 09/23/20 - 10/23/20 [facility] [address] [place], [place] [address] Allergies, Adverse Reactions, Alerts Substance Reaction Severity Status morphine Active Adhesive Bandage Active Percocet 7.5/325 Active Medications amitriptyline 10 mg oral tablet 10 mg, 1, tablet, By Mouth, Daily at bedtime, # 90 tablet, Refills 1, Tot. Refills 1, Maintenance, 09/07/20 11:05:00 EDT, Route to Pharmacy Electronically, [facility]/pharmacy #[id number], Partial fill upon patient request if the prescription is for a schedule II... Start Date: 09/07/20 Status: Ordered amitriptyline 10 mg oral tablet 10 mg, 1, tablet, By Mouth, Daily at bedtime, # 90 tablet, Refills 1, Tot. Refills 1, Maintenance, 09/22/20 16:39:00 EDT, Route to Pharmacy Electronically, [facility]/pharmacy #[id number], Partial fill upon patient request if the prescription is for a schedule II... Start Date: 09/22/20 Status: Ordered baclofen 10 mg oral tablet 10 mg, 1, tablet, By Mouth, 3 times a day, PRN, # 30 tablet, Refills 0, Tot. Refills 0, Maintenance, Spasm, 01/31/19 21:47:23 EDT, Route to Pharmacy Electronically, [id number], [facility]/pharmacy #[id number] Start Date: 01/31/19 Stop Date: 02/14/19 Status: Ordered clonazePAM 0.5 mg oral tablet 1 tablet = 0.5 mg, By Mouth, 4 times a day, PRN Anxiety, Patient on controlled substance contract. Please do NOT fill until 09/23/2020, # 112 tablet, 1 Refills, Maintenance, 09/22/20 16:54:00 EDT, Tablet, [facility]/pharmacy #[id number], [...] 0 Refills, Maintenance, 10/21/20 16:27:00 EDT, ECCapsule, [facility]/pharmacy #[id number], Partial fill upon patient request if the prescription is for a schedule II opioid drug., 160, cm, 09/07/20 13:05:00 EDT, H... Start Date: 10/21/20 Status: Ordered ProAir HFA 90 mcg/inh inhalation aerosol 2 puffs, Inhalation, Every 4 hours, PRN as needed for wheezing, # 8.5 Gm, 0 Refills, Maintenance, 09/01/20 20:10:00 EDT, Aerosol, [facility]/pharmacy #[id number], Partial fill upon patient [...] with sertraline 100mg tab in morning for [id number] per day, # 90 tablet, 1 Refills, [...]
--- OUTSIDE RECORDS SUMMARY | 2022-12-30 08:15 | XMS_ITS | Continuity of Care Document ---
Author Name Unknown Organization [facility] Address [address] [place] [address]- Care Team Providers Care Installation Drafter Name Role Phone Candis CARDENAS, Kaiden Villalta Primary Care Physician Encounter [facility] [place] Date(s): 03/13/22 - 04/12/22 [facility] [address] [place], [place] [address] Allergies, Adverse Reactions, Alerts Substance [...] 8.5 Gm,0 Refills, Maintenance, 12/22/21 10:40:00 EDT, [facility] #[id number], 2 puffs Inhalation Every 4 hours,PRN: NEEDED FOR WHEEZING/cough/shortness... Start Date: 12/22/21 Status: Ordered albuterol 0.083% inhalation solution 3 mL = 2.5 mg, Inhalation, Every 4 hours, PRN for wheezing/cough/shortness of breath, # 25 each, 0 Refills, Maintenance, 10/14/21 22:10:00 EDT, Solution, [facility] #[id number], Partial fill upon patient request if the prescription is for a sched... Start Date: 10/14/21 Status: Ordered [place] Saline Mist 0.65% nasal spray 2 sprays, Nares, Both, 4 times a day, # 1 each, 0 Refills, Maintenance, 02/04/22 13:32:00 EDT, [facility] #[id number], Partial fill upon patient request if the [...] tablet, 0 Refills, Maintenance, 12/27/21 13:43:00 EDT, [facility] #[id number], 153, cm, 10/08/21 13:23:00 EDT, Height, 113.9, kg, 10/08/21 13:23:00EDT, Dry Weight Start Date: 12/27/21 Status: Ordered clonazePAM 0.5 mg oral tablet 1 tablet = 0.5 mg, By Mouth, 4 times a day, PRN Anxiety, Patient on controlled substance contract. Please do NOT fill until 09/23/2020, # 112 tablet, 0 Refills, Maintenance, 11/18/20 21:02:00 EDT, Tablet, [facility]/pharmacy #[id number], Partial fill upon patient... Start Date: 11/18/20 Status: Ordered diclofenac 1% topical gel = 1 Gm, Topically, 4 times a day, FOR PAIN., # 100 Gm, 1 Refills, [id number], 30, APPLY 1 GM TOPICALLY 4 TIMES A DAY FOR PAIN, 153, cm, 06/07/21 11:07:00 EST, Height, 105, kg, 05/31/21 15:15:00 EST, Dry Weight Start Date: 08/05/21 Status: Ordered Dilaudid 2 mg oral tablet 1 tablet = 2 mg, By Mouth, 2 times a day, PRN Pain , Severe, checked masspat, # 56 tablet, 0 Refills, Maintenance, 04/07/22 21:32:00 EST, Tablet, [facility] #[id number], Partial fill upon patient request if the prescription is for a schedule II o... Start Date: 04/07/22 Status: Ordered Estrace Vaginal Cream 0.1 mg/g = 2 Gm, Vaginally, Daily at bedtime, 2g PV daily at bedtime x 2 weeks, then 1g PV 1-3x per week, # 42.5 Gm, 5 Refills, Maintenance, 11/09/21 11:17:00 EDT, [facility] #[id number], Partial fill upon patient request if the prescription is for a sche... Start Date: 11/09/21 Status: Ordered Estradiol Patch 0.0375 mg/24 hours twice weekly transdermal film, extended release See Instructions, APPLY 1 PATCH TOPICALLY TWICE WEEKLY DIRECTED, # 8 patch, 6 Refills, Maintenance, 03/23/22 16:10:00 EST, [facility] #[id number], 28, APPLY 1 PATCH TOPICALLY TWICE WEEKLY DIRECTED, 153, cm, 01/04/22 13:15:00 EDT, Height, 11... Start Date: 03/23/22 Status: Ordered fluconazole 150 mg oral tablet 1 tablet = 150 mg, By Mouth, Once, PRN vaginal yeast infection, # 1 tablet, 0 Refills, Soft Stop, 03/15/22 10:42:00 EST, Tablet, [facility] #[id number], Partial fill upon patient request if the prescription is for a schedule II opioid drug., 153,... Start Date: 03/15/22 Status: Ordered gabapentin 800 mg oral tablet See Instructions, TAKE 1 TABLET BY MOUTH FOUR TIMES DAILY, # 360 tablet, 0 Refills, [facility] #[id number], 153, cm, 10/08/21 13:23:00 EDT, Height, 113.9, [...] capsule, 1 Refills, Maintenance, 12/08/21 10:10:00 EDT, [facility] #[id number], 153, cm, 10/08/21 13:23:00 EDT, Height, 113.9,kg, [...] 1 Refills, Maintenance, 03/14/22 15:04:00 EST, Tablet, [facility] #[id number], Partial fill upon patient request if the prescription is for a schedule II opioid drug., 153, cm... Start Date: 03/14/22 Status: Ordered meloxicam 15 mg oral tablet 1/2 TO 1 TABLET, By Mouth, Daily, PRN NEEDED FOR MODERATE PAIN, # 30 tablet, 5 Refills, Maintenance, 01/10/22 20:40:00 EDT, [facility] #[id number], 153, cm, 01/04/22 13:15:00 EDT, Height, 113.9, [...] capsule, 0 Refills, Maintenance, 01/16/22 8:28:00 EDT, [facility] #[id number], 153, cm, 01/04/22 13:15:00 EDT, Height, 113.9, kg, 10/08/21 13:23:00 EDT, Dry Weight Start Date: 01/16/22 Status: Ordered ondansetron 4 mg oral tablet 1 tablet, By Mouth, Every 8 hours, PRN NEEDED FOR NAUSEA OR VOMITING, # 30 tablet, 0 Refills, Maintenance, 03/01/22 11:29:00 EST, [facility] #[id number], 153, cm, 01/04/22 13:15:00 EDT, Height, 113.9, kg, 10/08/21 13:23:00 EDT, Dry Weight Start Date: 03/01/22 Status: Ordered oxybutynin 5 mg oral tablet 1 tablet, By Mouth, 3 times a day, # 270 tablet, 1 Refills, 01/10/22 10:29:00 EDT, [facility] #[id number], 153, cm, 01/04/22 13:15:00 EDT, Height, 113.9, [...] 03/14/22 15:10:00 EST, Route to Pharmacy Electronically, [facility] #[id number], Partial fill upon patient request if the... [...] Physician Member Role: PCP Address: Address: [address] [place] [address] Adult [place] [address]- Care Team Related Persons Name: RODOLFO SHEIKH Address: home [address] [place] [address] Name: CHIARA TEE Address: home [address] [place] [address]
--- OUTSIDE RECORDS SUMMARY | 2022-12-30 08:16 | XMS_ITS | Continuity of Care Document ---
Author Name Unknown Organization [facility] Address [address] [place] [address]- Care Team Providers Care Porcelain Turner Name Role Phone Candis CARDENAS, Kaiden Villalta Primary Care Physician [place] [facility] [id number] Date(s): 03/16/22 - 04/15/22 [facility] [address] [place], [place] [address] Allergies, Adverse Reactions, Alerts [...] 8.5 Gm,0 Refills, Maintenance, 12/22/21 10:40:00 EDT, [facility] #[id number], 2 puffs Inhalation Every 4 hours,PRN: NEEDED FOR WHEEZING/cough/shortness... Start Date: 12/22/21 Status: Ordered albuterol 0.083% inhalation solution 3 mL = 2.5 mg, Inhalation, Every 4 hours, PRN for wheezing/cough/shortness of breath, # 25 each, 0 Refills, Maintenance, 10/14/21 22:10:00 EDT, Solution, [facility] #[id number], Partial fill upon patient request if the prescription is for a sched... Start Date: 10/14/21 Status: Ordered [place] Saline Mist 0.65% nasal spray 2 sprays, Nares, Both, 4 times a day, # 1 each, 0 Refills, Maintenance, 02/04/22 13:32:00 EDT, [facility] #[id number], Partial fill upon patient request if the [...] tablet, 0 Refills, Maintenance, 12/27/21 13:43:00 EDT, [facility] #[id number], 153, cm, 10/08/21 13:23:00 EDT, Height, 113.9, kg, 10/08/21 13:23:00EDT, Dry Weight Start Date: 12/27/21 Status: Ordered clonazePAM 0.5 mg oral tablet 1 tablet = 0.5 mg, By Mouth, 4 times a day, PRN Anxiety, Patient on controlled substance contract. Please do NOT fill until 09/23/2020, # 112 tablet, 0 Refills, Maintenance, 11/18/20 21:02:00 EDT, Tablet, [facility]/pharmacy #[id number], Partial fill upon patient... Start Date: 11/18/20 Status: Ordered diclofenac 1% topical gel = 1 Gm, Topically, 4 times a day, FOR PAIN., # 100 Gm, 1 Refills, [id number], 30, APPLY 1 GM TOPICALLY 4 TIMES A DAY FOR PAIN, 153, cm, 06/07/21 11:07:00 EST, Height, 105, kg, 05/31/21 15:15:00 EST, Dry Weight Start Date: 08/05/21 Status: Ordered Dilaudid 2 mg oral tablet 1 tablet = 2 mg, By Mouth, 2 times a day, PRN Pain , Severe, checked masspat, # 56 tablet, 0 Refills, Maintenance, 04/07/22 21:32:00 EST, Tablet, [facility] #[id number], Partial fill upon patient request if the prescription is for a schedule II o... Start Date: 04/07/22 Status: Ordered Estrace Vaginal Cream 0.1 mg/g = 2 Gm, Vaginally, Daily at bedtime, 2g PV daily at bedtime x 2 weeks, then 1g PV 1-3x per week, # 42.5 Gm, 5 Refills, Maintenance, 11/09/21 11:17:00 EDT, [facility] #[id number], Partial fill upon patient request if the prescription is for a sche... Start Date: 11/09/21 Status: Ordered Estradiol Patch 0.0375 mg/24 hours twice weekly transdermal film, extended release See Instructions, APPLY 1 PATCH TOPICALLY TWICE WEEKLY DIRECTED, # 8 patch, 6 Refills, Maintenance, 03/23/22 16:10:00 EST, [facility] #[id number], 28, APPLY 1 PATCH TOPICALLY TWICE WEEKLY DIRECTED, 153, cm, 01/04/22 13:15:00 EDT, Height, 11... Start Date: 03/23/22 Status: Ordered fluconazole 150 mg oral tablet 1 tablet = 150 mg, By Mouth, Once, PRN vaginal yeast infection, # 1 tablet, 0 Refills, Soft Stop, 03/15/22 10:42:00 EST, Tablet, [facility] #[id number], Partial fill upon patient request if the prescription is for a schedule II opioid drug., 153,... Start Date: 03/15/22 Status: Ordered gabapentin 800 mg oral tablet See Instructions, TAKE 1 TABLET BY MOUTH FOUR TIMES DAILY, # 360 tablet, 0 Refills, Maintenance, 04/13/22 20:23:00 EST, [facility] #[id number], 153, cm, 01/04/22 13:15:00 EDT, Height, 113.9, kg,10/08/21 13:23:00 EDT, Dry Weight Start Date: 04/13/22 Status: Ordered gabapentin 800 mg oral tablet 1 tablet, By Mouth, 4 times a day, # 360 tablet, 1 Refills, Maintenance, 04/13/22 20:23:00 EST, [facility] #[id number], 153, cm, 01/04/22 13:15:00 EDT, Height, 113.9, [...] capsule, 1 Refills, Maintenance, 12/08/21 10:10:00 EDT, [facility] #[id number], 153, cm, 10/08/21 13:23:00 EDT, Height, 113.9,kg, [...] 1 Refills, Maintenance, 03/14/22 15:04:00 EST, Tablet, [facility] #[id number], Partial fill upon patient request if the prescription is for a schedule II opioid drug., 153, cm... Start Date: 03/14/22 Status: Ordered meloxicam 15 mg oral tablet 1/2 TO 1 TABLET, By Mouth, Daily, PRN NEEDED FOR MODERATE PAIN, # 30 tablet, 5 Refills, Maintenance, 01/10/22 20:40:00 EDT, [facility] #[id number], 153, cm, 01/04/22 13:15:00 EDT, Height, 113.9, [...] capsule, 0 Refills, Maintenance, 01/16/22 8:28:00 EDT, [facility] #[id number], 153, cm, 01/04/22 13:15:00 EDT, Height, 113.9, kg, 10/08/21 13:23:00 EDT, Dry Weight Start Date: 01/16/22 Status: Ordered ondansetron 4 mg oral tablet 1 tablet, By Mouth, Every 8 hours, PRN NEEDED FOR NAUSEA OR VOMITING, # 30 tablet, 1 Refills, Maintenance, 04/14/22 21:15:00 EST, [facility] #[id number], 153, cm, 01/04/22 13:15:00 EDT, Height, 113.9, kg, 10/08/21 13:23:00 EDT, Dry Weight Start Date: 04/14/22 Status: Ordered oxybutynin 5 mg oral tablet 1 tablet, By Mouth, 3 times a day, # 270 tablet, 1 Refills, 01/10/22 10:29:00 EDT, [facility] #[id number], 153, cm, 01/04/22 13:15:00 EDT, Height, 113.9, [...] 04/14/22 21:16:00 EST, Route to Pharmacy Electronically, [facility] #[id number], Partial fill upon patient request if the... [...] more than 30 days ago;Never entered on: 7/26/22 Sex Patient Care team information Care Team Personnel Name: Kaiden Chirinos MD Position: [facility] Primary Care Physician Member Role: PCP Address: Address: [address] [place] [address] Adult [facility] [place] [address]- Care Team Related Persons Name: RODOLFO SHEIKH Address: home [address] [address] Name: CHIARA TEE Address: home [address] [place] [address] [address] [place] [address]
--- OUTSIDE RECORDS SUMMARY | 2022-12-30 08:16 | XMS_ITS | Continuity of Care Document ---
Author Name Unknown Organization [facility] Address [address] [place] [address]- Care Team Providers Care Clinical Phlebotomist Name Role Phone Kaiden Chirinos MD Primary Care Physician [phone] [place] [facility] [place](s): 07/29/22 - 08/28/22 [facility] [address] [place], [place] [address] Allergies, Adverse Reactions, Alerts Substance [...] # 8.5 Gm,0 Refills, Maintenance, 12/22/21 10:40:00 [facility] #[id number], 2 puffs Inhalation Every 4 hours,PRN: NEEDED FOR WHEEZING/cough/shortness... Start Date: 12/22/21 Status: Ordered albuterol 0.083% inhalation solution 3 mL = 2.5 mg, Inhalation, Every 4 hours, PRN for wheezing/cough/shortness of breath, # 25 each, 0 Refills, Maintenance, 06/29/22 13:08:00 EDT, Solution, [facility] #[id number], Partial fill upon patient request if the prescription is for a sched... Start Date: 06/29/22 Status: Ordered [place] Saline Mist 0.65% nasal spray 2 sprays, Nares, Both, 4 times a day, # 1 each, 0 Refills, Maintenance, 02/04/22 13:32:00 EDT, [facility] #[id number], Partial fill upon patient request if the [...] tablet, 0 Refills, Maintenance, 12/27/21 13:43:00 EDT, [facility] #[id number], 153, cm, 10/08/21 13:23:00 EDT, Height, 113.9, kg, 10/08/21 13:23:00EDT, Dry Weight Start Date: 12/27/21 Status: Ordered chlorhexidine 2% topical liquid See Instructions, 1 application to bilateral forearms twice weekly, # 120 mL, 3 Refills, Soft Stop,06/17/22 11:06:00 EST, Liquid, [facility] #[id number], Partial fill upon patient request if the prescription is for a schedule II opioid drug., 1... Start Date: 06/17/22 Status: Ordered chlorhexidine 4% topical soap See Instructions, apply topically twice weekly to skin on forearms, # 120 mL, 2 Refills, Soft Stop,06/17/22 16:03:00 EST, [facility] #[id number], Partial fill upon patient request [...] Refills, Maintenance, 11/18/20 21:02:00 EDT, Tablet, [facility]/pharmacy #[id number], Partial fill upon patient... Start Date: 11/18/20 Status: Ordered diclofenac 1% topical gel = 1 Gm, Topically, 4 times a day, FOR PAIN., # 100 Gm, 1 Refills, [id number], 30, APPLY 1 GM TOPICALLY 4 TIMES A DAY FOR PAIN, 153, cm, 06/07/21 11:07:00 EST, Height, 105, kg, 05/31/21 15:15:00 EST, Dry Weight Start Date: 08/05/21 Status: Ordered Dilaudid 2 mg oral tablet 1 tablet = 2 mg, By Mouth, 2 times a day, PRN Pain , Severe, checked masspat, # 56 tablet, 0 Refills, Maintenance, 08/26/22 14:09:00 EDT, Tablet, [facility] #[id number], Partial fill upon patient request if the prescription is for a schedule II o... Start Date: 08/26/22 Status: Ordered Estrace Vaginal Cream 0.1 mg/g = 2 Gm, Vaginally, Daily at bedtime, 2g PV daily at bedtime x 2 weeks, then 1g PV 1-3x per week, # 42.5 Gm, 5 Refills, Maintenance, 11/09/21 11:17:00 EDT, [facility] #[id number], Partial fill upon patient request if the prescription is for a sche... Start Date: 11/09/21 Status: Ordered Estradiol Patch 0.0375 mg/24 hours twice weekly transdermal film, extended release See Instructions, APPLY 1 PATCH TOPICALLY TWICE WEEKLY DIRECTED, # 8 patch, 6 Refills, Maintenance, 03/23/22 16:10:00 EST, [facility] #[id number], 28, APPLY 1 PATCH TOPICALLY TWICE WEEKLY DIRECTED, 153, cm, 01/04/22 13:15:00 EDT, Height, 11... Start Date: 03/23/22 Status: Ordered fluconazole 150 mg oral tablet 1 tablet = 150 mg, By Mouth, Once, PRN vaginal yeast infection, # 1 tablet, 0 Refills, Soft Stop, 03/15/22 10:42:00 EST, Tablet, [facility] #[id number], Partial fill upon patient request if the prescription is for a schedule II opioid drug., 153,... Start Date: 03/15/22 Status: Ordered fluticasone 50 mcg/inh nasal spray See Instructions, SHAKE LIQUID AND USE 1 SPRAY IN EACH NOSTRIL TWICE DAILY, # 16 Gm, 1 Refills, Maintenance, 05/18/22 13:57:00 EST, [facility] #[id number], 30, SHAKE LIQUID AND USE 1 SPRAY IN EACH NOSTRIL TWICE DAILY, 153, cm, 04/25/22 16:23:00 E... Start Date: 05/18/22 Status: Ordered gabapentin 800 mg oral tablet 1 tablet, By Mouth, 4 times a day, # 360 tablet, 1 Refills, Maintenance, 04/19/22 12:59:00 EST, [facility] #[id number], 153, cm, 01/04/22 13:15:00 EDT, Height, 113.9, [...] capsule, 1 Refills, Maintenance, 07/18/22 9:45:00 EDT, [facility] #[id number], 153, cm, 06/17/22 10:53:00 EST, Height, 109, [...] 1 Refills, Maintenance, 04/28/22 13:51:00 EST, Tablet, [facility] #[id number], Partial fill upon patient request if the prescription is for a schedule II opioid drug., 153, cm... Start Date: 04/28/22 Status: Ordered lidocaine 4% topical cream 1 application, Topically, 3 times a day, PRN Pain , Mild, # 30 Gm, 1 Refills, Maintenance, 06/24/2315:24:00 EST, Cream, [facility] #[id number], Partial fill upon patient request if the prescription is for a schedule II opioid drug., 1 applicatio... Start Date: 06/23/22 Status: Ordered meloxicam 15 mg oral tablet 1/2 TO 1 TABLET, By Mouth, Daily, PRN NEEDED FOR MODERATE PAIN, # 30 tablet, 5 Refills, Maintenance, 01/10/22 20:40:00 EDT, [facility] #[id number], 153, cm, 01/04/22 13:15:00 EDT, Height, 113.9, [...] capsule, 1 Refills, Maintenance, 07/26/22 14:24:00 EDT, [facility] #[id number], 153, cm, 06/17/22 10:53:00 EST, Height, 109, kg, 06/17/22 10:53:00 EST, Dry Weight Start Date: 07/26/22 Status: Ordered ondansetron 4 mg oral tablet 1 tablet, By Mouth, Every 8 hours, PRN NEEDED FOR NAUSEA OR VOMITING, # 30 tablet, 1 Refills, Maintenance, 06/14/22 10:29:00 EST, [facility] #[id number], 153, cm, 06/08/22 9:37:00 EST, Height, 109, kg, 04/25/22 15:54:00 EST, Dry Weight Start Date: 06/14/22 Status: Ordered oxybutynin 5 mg oral tablet 1 tablet, By Mouth, 3 times a day, # 270 tablet, 0 Refills, Maintenance, 07/05/22 8:13:00 EDT, [facility] #[id number], 153, cm, 06/17/22 10:53:00 EST, Height, 109, [...] 07/01/22 14:21:00 EDT, Route to Pharmacy Electronically, [facility] #[id number], Partial fill upon patient request if the... Start Date: 07/01/22 Status: Ordered triamcinolone 0.1% topical cream 1 application, Topically, 3 times a day, PRN arm rash, # 30 Gm, 1 Refills, Acute 06/08/23 9:53:00 EST, 06/08/22 9:53:00 EST, Cream, [facility] #[id number], Partial fill upon patient request if the prescription is for a schedule II opioid drug., 1... Start Date: 06/08/22 Stop Date: 06/08/23 Status: Ordered valacyclovir 1 gm oral tablet 1 tablet = 1 Gm, By Mouth, Every 8 hours, for 7 days, # 21 tablet, 1 Refills, Acute 09/09/22 17:03:00 EDT, 08/26/22 17:03:00 EDT, Tablet, [facility] #[id number], Partial fill upon patient request if the [...] Care Physician Member Role: PCP Address: Address: [address] [place] [address] Adult & [place] [address]- Care Team Related Persons Name: RODOLFO SHEIKH Address: home [address] [facility] [address] [place] [address] Name: CHIARA TEE Address: home [address] [place] [address] [place] [id number]
--- OUTSIDE RECORDS SUMMARY | 2022-12-30 08:16 | XMS_ITS | Continuity of Care Document ---
Author Name Unknown Organization [facility] Address [address] [place] [address]- Care Team Providers Care Art History Instructor Name Role Phone Candis CARDENAS, Kaiden Villalta Primary Care Physician [phone] [place] [facility] [place] 12/30/21 - 01/29/22 [facility] [address] [place], [place] [address] Allergies, Adverse Reactions, Alerts Substance [...] 8.5 Gm,0 Refills, Maintenance, 12/22/21 10:40:00 EDT, [facility] #[id number], 2 puffs Inhalation Every 4 hours,PRN: NEEDED FOR WHEEZING/cough/shortness... Start Date: 12/22/21 Status: Ordered albuterol 0.083% inhalation solution 3 mL = 2.5 mg, Inhalation, Every 4 hours, PRN for wheezing/cough/shortness of breath, # 25 each, 0 Refills, Maintenance, 10/14/21 22:10:00 EDT, Solution, [facility] #[id number], Partial fill upon patient request if the [...] tablet, 0 Refills, Maintenance, 12/27/21 13:43:00 EDT, [facility] #[id number], 153, cm, 10/08/21 13:23:00 EDT, Height, 113.9, kg, 10/08/21 13:23:00EDT, Dry Weight Start Date: 12/27/21 Status: Ordered clonazePAM 0.5 mg oral tablet 1 tablet = 0.5 mg, By Mouth, 4 times a day, PRN Anxiety, Patient on controlled substance contract. Please do NOT fill until 09/23/2020, # 112 tablet, 0 Refills, Maintenance, 11/18/20 21:02:00 EDT, Tablet, [facility]/pharmacy #[id number], Partial fill upon patient... Start Date: 11/18/20 Status: Ordered diclofenac 1% topical gel = 1 Gm, Topically, 4 times a day, FOR PAIN., # 100 Gm, 1 Refills, [id number], 30, APPLY 1 GM TOPICALLY 4 TIMES A DAY FOR PAIN, 153, cm, 06/07/21 11:07:00 EST, Height, 105, kg, 05/31/21 15:15:00 EST, Dry Weight Start Date: 08/05/21 Status: Ordered Dilaudid 2 mg oral tablet 1 tablet = 2 mg, By Mouth, 2 times a day, PRN Pain , Severe, checked masspat, # 28 tablet, 0 Refills, Maintenance, 01/18/22 17:28:00 EDT, Tablet, [facility] #[id number], Partial fill upon patient request if the prescription is for a schedule II o... Start Date: 01/18/22 Status: Ordered Estrace Vaginal Cream 0.1 mg/g = 2 Gm, Vaginally, Daily at bedtime, 2g PV daily at bedtime x 2 weeks, then 1g PV 1-3x per week, # 42.5 Gm, 5 Refills, Maintenance, 11/09/21 11:17:00 EDT, [facility] #[id number], Partial fill upon patient request if the prescription is for a sche... Start Date: 11/09/21 Status: Ordered estradiol 0.0375 mg/24 hours twice weekly transdermal film, extended release See Instructions, 1 patch Topically, change patch twice a week, # 1 pack/packet, 1 Refills, Maintenance, 12/07/21 10:42:00 EDT, [facility] #[id number], Partial fill upon patient request if the prescription is for a schedule II opioid drug., 153,... Start Date: 12/07/21 Status: Ordered gabapentin 800 mg oral tablet See Instructions, TAKE 1 TABLET BY MOUTH FOUR TIMES DAILY, # 360 tablet, 0 Refills, [facility] #[id number], 153, cm, 10/08/21 13:23:00 EDT, Height, 113.9, [...] capsule, 1 Refills, Maintenance, 12/08/21 10:10:00 EDT, [facility] #[id number], 153, cm, 10/08/21 13:23:00 EDT, Height, 113.9,kg, [...] 1 Refills, Maintenance, 11/30/21 15:44:00 EDT, Tablet, [facility] #[id number], [place]... Start Date: 11/30/21 Status: Ordered levothyroxine 0.112 mg oral tablet 1 tablet, By Mouth, Daily, AVOID ANTACIDS, CALCIUM, OR IRON FOR AT LEAST 4 HOURS BEFORE OR 4 HOURS AFTER; ON AN ON AN EMPTY STOMACH, # 90 tablet, 0 Refills, Maintenance, 01/20/22 17:46:00 EDT, [facility] #[id number], 153, cm, 01/04/22 13:15:00 ED... Start Date: 01/20/22 Status: Ordered lidocaine 3% topical gel 1 application, Topically, 2 times a day, PRN as needed for pain, to replace 2% topical, # 28.5 Gm, 2 Refills, Acute 03/29/22 14:17:00 EST, 12/28/21 14:17:00 EDT, Gel, [facility] #[id number], Partial fill upon patient request if the prescription i... Start Date: 12/28/21 Stop Date: 03/29/22 Status: Ordered meloxicam 15 mg oral tablet 1/2 TO 1 TABLET, By Mouth, Daily, PRN NEEDED FOR MODERATE PAIN, # 30 tablet, 5 Refills, Maintenance, 01/10/22 20:40:00 EDT, [facility] #[id number], 153, cm, 01/04/22 13:15:00 EDT, Height, 113.9, [...] capsule, 0 Refills, Maintenance, 01/16/22 8:28:00 EDT, [facility] #[id number], 153, cm, 01/04/22 13:15:00 EDT, Height, 113.9, kg, 10/08/21 13:23:00 EDT, Dry Weight Start Date: 01/16/22 Status: Ordered ondansetron 4 mg oral tablet 1 tablet = 4 mg, By Mouth, Every 8 hours, PRN Nausea & Vomiting, # 30 tablet, 1 Refills, Maintenance, 11/10/21 14:47:00 EDT, [facility] #[id number], 153, cm, 10/08/21 13:23:00 EDT, Height, 113.9, kg, 10/08/21 13:23:00 EDT, Dry Weight Start Date: 11/10/21 Status: Ordered oxybutynin 5 mg oral tablet 1 tablet, By Mouth, 3 times a day, # 270 tablet, 1 Refills, 01/10/22 10:29:00 EDT, [facility] #[id number], 153, cm, 01/04/22 13:15:00 EDT, Height, 113.9, [...] Name: Candis CARDENAS, Kaiden Villalta Address: Address: [address] [place] [address] Adult & Pediatric Medicine [place], [place] [address]
--- OUTSIDE RECORDS SUMMARY | 2022-12-30 08:16 | XMS_ITS | Continuity of Care Document ---
Author Name Unknown Organization [facility] Address [address] [place] [address]- Care Team Providers Care Feed Mill Operator Name Role Phone Kaiden Chirinos MD Primary Care Physician Encounter [facility] [place] Date(s): 02/09/22 - 03/11/22 [facility] [address] [place], [place] [address] Allergies, Adverse Reactions, Alerts Substance Reaction [...] 8.5 Gm,0 Refills, Maintenance, 12/22/21 10:40:00 T, [facility] #[id number], 2 puffs Inhalation Every 4 hours,PRN: NEEDED FOR WHEEZING/cough/shortness... Start Date: 12/22/21 Status: Ordered albuterol 0.083% inhalation solution 3 mL = 2.5 mg, Inhalation, Every 4 hours, PRN for wheezing/cough/shortness of breath, # 25 each, 0 Refills, Maintenance, 10/14/21 22:10:00 EDT, Solution, [facility] #[id number], Partial fill upon patient request if the prescription is for a sched... Start Date: 10/14/21 Status: Ordered [place] Saline Mist 0.65% nasal spray 2 sprays, Nares, Both, 4 times a day, # 1 each, 0 Refills, Maintenance, 02/04/22 13:32:00 EDT, [facility] #[id number], Partial fill upon patient request if the [...] tablet, 0 Refills, Maintenance, 12/27/21 13:43:00 EDT, [facility] #[id number], 153, cm, 10/08/21 13:23:00 EDT, Height, 113.9, [...] FOR PAIN., # 100 Gm, 1 Refills, [facility], 30, APPLY 1 GM TOPICALLY 4 TIMES A DAY FOR PAIN, 153, cm, 06/07/21 11:07:00 EST, Height, 105, kg, 05/31/21 15:15:00 EST, Dry Weight Start Date: 08/05/21 Status: Ordered Dilaudid 2 mg oral tablet 1 tablet = 2 mg, By Mouth, 2 times a day, PRN Pain , Severe, checked masspat, # 28 tablet, 0 Refills, Maintenance, 03/04/22 14:11:00 EST, Tablet, [facility] #[id number], Partial fill upon patient request if the prescription is for a schedule II o... Start Date: 03/04/22 Status: Ordered Estrace Vaginal Cream 0.1 mg/g = 2 Gm, Vaginally, Daily at bedtime, 2g PV daily at bedtime x 2 weeks, then 1g PV 1-3x per week, # 42.5 Gm, 5 Refills, Maintenance, 11/09/21 11:17:00 EDT, [facility] #[id number], Partial fill upon patient request if the prescription is for a sche... Start Date: 11/09/21 Status: Ordered Estradiol Patch 0.0375 mg/24 hours twice weekly transdermal film, extended release See Instructions, APPLY 1 PATCH TOPICALLY TWICE WEEKLY DIRECTED, # 8 patch, 0 Refills, Maintenance, 02/26/22 10:23:00 EST, [facility] #[id number], 28, APPLY 1 PATCH TOPICALLY TWICE WEEKLY DIRECTED, 153, cm, 01/04/22 13:15:00 EDT, Height, 11... Start Date: 02/26/22 Status: Ordered fluconazole 150 mg oral tablet 1 tablet = 150 mg, By Mouth, Once, # 1 tablet, 0 Refills, Soft Stop, 02/14/22 14:41:00 EDT, Tablet,[facility] #[id number], Partial fill upon patient request if the prescription is for a schedule II opioid drug., 153, cm, 01/04/22 13:15:00 EDT, H... Start Date: 02/14/22 Status: Ordered gabapentin 800 mg oral tablet See Instructions, TAKE 1 TABLET BY MOUTH FOUR TIMES DAILY, # 360 tablet, 0 Refills, [facility] #[id number], 153, cm, 10/08/21 13:23:00 EDT, Height, 113.9, [...] capsule, 1 Refills, Maintenance, 12/08/21 10:10:00 EDT, [facility] #[id number], 153, cm, 10/08/21 13:23:00 EDT, Height, 113.9,kg, [...] tablet, 0 Refills, Maintenance, 01/20/22 17:46:00 EDT, [facility] #[id number], 153, cm, 01/04/22 13:15:00 ED... Start Date: 01/20/22 Status: Ordered lidocaine 3% topical gel 1 application, Topically, 2 times a day, PRN as needed for pain, to replace 2% topical, # 28.5 Gm, 2 Refills, Acute 03/29/22 14:17:00 EST, 12/28/21 14:17:00 EDT, Gel, [facility] #[id number], Partial fill upon patient request if the prescription i... Start Date: 12/28/21 Stop Date: 03/29/22 Status: Ordered meloxicam 15 mg oral tablet 1/2 TO 1 TABLET, By Mouth, Daily, PRN NEEDED FOR MODERATE PAIN, # 30 tablet, 5 Refills, Maintenance, 01/10/22 20:40:00 EDT, [facility] #[id number], 153, cm, 01/04/22 13:15:00 EDT, Height, 113.9, [...] capsule, 0 Refills, Maintenance, 01/16/22 8:28:00 EDT, [facility] #[id number], 153, cm, 01/04/22 13:15:00 EDT, Height, 113.9, kg, 10/08/21 13:23:00 EDT, Dry Weight Start Date: 01/16/22 Status: Ordered ondansetron 4 mg oral tablet 1 tablet, By Mouth, Every 8 hours, PRN NEEDED FOR NAUSEA OR VOMITING, # 30 tablet, 0 Refills, Maintenance, 03/01/22 11:29:00 EST, [facility] #[id number], 153, cm, 01/04/22 13:15:00 EDT, Height, 113.9, kg, 10/08/21 13:23:00 EDT, Dry Weight Start Date: 03/01/22 Status: Ordered oxybutynin 5 mg oral tablet 1 tablet, By Mouth, 3 times a day, # 270 tablet, 1 Refills, 01/10/22 10:29:00 EDT, [facility] #[id number], 153, cm, 01/04/22 13:15:00 EDT, Height, 113.9, [...] 02/18/22 16:37:00 EDT, Route to Pharmacy Electronically, [facility] #[id number], Partial fill upon patient request if the [...] Team Personnel Name: Kaiden Chirinos MD Position: [facility] Primary Care Physician Member Role: PCP Address: Address: [address] [place] [address] Adult & [place] [address]- Care Team Related Persons Name: RODOLFO SHEIKH Address: home [address] [facility] [address] [place] [id number] Name: CHIARA TEE Address: home [address] [place] [address] [place] [id number]
--- OUTSIDE RECORDS SUMMARY | 2022-12-30 08:16 | XMS_ITS | Continuity of Care Document ---
Author Name Unknown Organization [facility] Address [address] [place] [address]- Care Team Providers Care Instrument Processing Tech Name Role Phone Candis CARDENAS, Kaiden Villalta Primary Care Physician [place] [facility] [place] 01/01/21 - 01/31/21 [facility] [address] [place], [place] [address] Allergies, Adverse Reactions, Alerts Substance [...] 12/24/20 16:08:00 EDT, Route to Pharmacy Electronically, [facility]/pharmacy #[id number], Partial fill upon patient request if the prescription is for a schedule II... Start Date: 12/24/20 Status: Ordered Augmentin 500 mg-125 mg oral tablet 1 tablet, By Mouth, Every 12 hours, for 7 days, take with food, # 14 tablet, 0 Refills, Acute 02/01/21 11:48:00 EDT, 01/25/21 11:48:00 EDT, Tablet, [id number], Partial fill upon patient request if the prescription is for a schedule II opioid d... Start Date: 01/25/21 Stop Date: 02/01/21 Status: Ordered baclofen 10 mg oral tablet 10 mg, 1, tablet, By Mouth, 3 times a day, PRN, # 30 tablet, Refills 0, Tot. Refills 0, Maintenance, Spasm, 01/31/19 21:47:23 EDT, Route to Pharmacy Electronically, [id number], [facility]/pharmacy #[id number] Start Date: 01/31/19 Stop Date: 02/14/19 Status: Ordered benzonatate 100 mg oral capsule 2 capsule, By Mouth, 3 times a day, PRN NEEDED FOR COUGH, # 30 capsule, 0 Refills, [facility]ORE [id number], 160, cm, 12/04/20 10:52:00 EDT, Height, 104.6, kg, 12/04/20 10:52:00 EDT, Dry Weight Start Date: 01/22/21 Status: Ordered clonazePAM 0.5 mg oral tablet 1 tablet = 0.5 mg, By Mouth, 4 times a day, PRN Anxiety, Patient on controlled substance contract. Please do NOT fill until 09/23/2020, # 112 tablet, 0 Refills, Maintenance, 11/18/20 21:02:00 EDT, Tablet, [facility]/pharmacy #[id number], Partial fill upon patient... Start Date: 11/18/20 Status: Ordered Famotidine 0 Refills, Maintenance, 04/07/19 16:11:00 EST Start Date: 04/07/19 Status: Ordered gabapentin 800 mg oral tablet 1 tablet = 800 mg, By Mouth, 4 times a day, # 360 tablet, 1 Refills, Maintenance, 11/09/20 23:47:00EDT, Tablet, [facility]/pharmacy #[id number], Partial fill upon patient request [...] 1 Refills, Maintenance, 11/05/20 11:43:00 EDT, Tablet, [facility]/pharmacy #[id number], Partial fill upon patient request if the prescription is for a schedule II opioid drug., 160, cm, 10/30/20 8:2... Start Date: 11/05/20 Status: Ordered meloxicam 15 mg oral tablet 1/2 TO 1 TABLET, By Mouth, Daily, PRN NEEDED FOR MODERATE PAIN, # 30 tablet, 1 Refills, [facility]ORE [id number], 160, cm, 12/04/20 10:52:00 EDT, Height, 104.6, [...] A WEEK Start Date: 09/07/20 Status: Ordered Zofran 4 mg oral tablet 1 tablet = 4 mg, By Mouth, Every 8 hours, PRN Nausea & Vomiting, # 15 tablet, 0 Refills, Acute 02/08/21 11:49:00 EDT, 01/25/21 11:49:00 EDT, Tablet, [facility]/pharmacy #[id number], Partial fill upon patient request if the prescription is for a schedule II opioid... Start Date: 01/25/21 Stop Date: 02/08/21 Status: Ordered Problem List Condition Effective Dates [...]
--- OUTSIDE RECORDS SUMMARY | 2022-12-30 08:16 | XMS_ITS | Continuity of Care Document ---
Author Name Unknown Organization [facility] Address [address] [place] [address]- Care Team Providers Care Scale Expert Name Role Phone Kaiden Chirinos MD Primary Care Physician Encounter [facility] [place] Date(s): 09/07/20 - 11/25/20 [facility] [address] [place], [place] [address] Attending Physician: Kaiden Chirinos MD Allergies, [...] 09/22/20 16:39:00 EDT, Route to Pharmacy Electronically, [facility]/pharmacy #[id number], Partial fill upon patient request if the prescription is for a schedule II... Start Date: 09/22/20 Status: Ordered baclofen 10 mg oral tablet 10 mg, 1, tablet, By Mouth, 3 times a day, PRN, # 30 tablet, Refills 0, Tot. Refills 0, Maintenance, Spasm, 01/31/19 21:47:23 EDT, Route to Pharmacy Electronically, [id number], [facility]/pharmacy #[id number] Start Date: 01/31/19 Stop Date: [...] tablet, 1 Refills, Maintenance, 11/09/20 23:47:00EDT, Tablet, [facility]/pharmacy #[id number], Partial fill upon patient request [...] 1 Refills, Maintenance, 11/03/20 13:32:00 EDT, Tablet, [facility]/pharmacy #[id number], Partial fill upon patient request [...] 1 Refills, Maintenance, 11/03/20 13:28:00 EDT, Tablet, [facility]/pharmacy #[id number], Partial fill upon patient request if the [...]
--- OUTSIDE RECORDS SUMMARY | 2022-12-30 08:16 | XMS_ITS | Continuity of Care Document ---
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 Start Date: 12/22/21 Status: Ordered albuterol 0.083% inhalation solution 3 mL = 2.5 mg, Inhalation, Every 4 hours, PRN for wheezing/cough/shortness of breath, # 25 each, 0 Refills, Maintenance, 10/14/21 22:10:00 EDT, Solution, [facility] #[id number], Partial fill upon patient request if the prescription is for a sched... Start Date: 10/14/21 Status: Ordered [place] Saline Mist 0.65% nasal spray 2 sprays, Nares, Both, 4 times a day, # 1 each, 0 Refills, Maintenance, 02/04/22 13:32:00 EDT, [facility] #[id number], Partial fill upon patient request if the [...] tablet, 0 Refills, Maintenance, 12/27/21 13:43:00 EDT, [facility] #[id number], 153, cm, 10/08/21 13:23:00 EDT, Height, 113.9, kg, 10/08/21 13:23:00EDT, Dry Weight Start Date: 12/27/21 Status: Ordered clonazePAM 0.5 mg oral tablet 1 tablet = 0.5 mg, By Mouth, 4 times a day, PRN Anxiety, Patient on controlled substance contract. Please do NOT fill until 09/23/2020, # 112 tablet, 0 Refills, Maintenance, 11/18/20 21:02:00 EDT, Tablet, [facility]/pharmacy #[id number], Partial fill upon patient... Start Date: 11/18/20 Status: Ordered diclofenac 1% topical gel = 1 Gm, Topically, 4 times a day, FOR PAIN., # 100 Gm, 1 Refills, [facility], 30, APPLY 1 GM TOPICALLY 4 TIMES A DAY FOR PAIN, 153, cm, 06/07/21 11:07:00 EST, Height, 105, kg, 05/31/21 15:15:00 EST, Dry Weight Start Date: 08/05/21 Status: Ordered Dilaudid 2 mg oral tablet 1 tablet = 2 mg, By Mouth, 2 times a day, PRN Pain , Severe, checked masspat, # 56 tablet, 0 Refills, Maintenance, 04/07/22 21:32:00 EST, Tablet, [facility] #[id number], Partial fill upon patient request if the prescription is for a schedule II o... Start Date: 04/07/22 Status: Ordered Estrace Vaginal Cream 0.1 mg/g = 2 Gm, Vaginally, Daily at bedtime, 2g PV daily at bedtime x 2 weeks, then 1g PV 1-3x per week, # 42.5 Gm, 5 Refills, Maintenance, 11/09/21 11:17:00 EDT, [facility] #[id number], Partial fill upon patient request if the prescription is for a sche... Start Date: 11/09/21 Status: Ordered Estradiol Patch 0.0375 mg/24 hours twice weekly transdermal film, extended release See Instructions, APPLY 1 PATCH TOPICALLY TWICE WEEKLY DIRECTED, # 8 patch, 6 Refills, Maintenance, 03/23/22 16:10:00 EST, [facility] #[id number], 28, APPLY 1 PATCH TOPICALLY TWICE WEEKLY DIRECTED, 153, cm, 01/04/22 13:15:00 EDT, Height, 11... Start Date: 03/23/22 Status: Ordered fluconazole 150 mg oral tablet 1 tablet = 150 mg, By Mouth, Once, PRN vaginal yeast infection, # 1 tablet, 0 Refills, Soft Stop, 03/15/22 10:42:00 EST, Tablet, [facility] #[id number], Partial fill upon patient request if the prescription is for a schedule II opioid drug., 153,... Start Date: 03/15/22 Status: Ordered gabapentin 800 mg oral tablet See Instructions, TAKE 1 TABLET BY MOUTH FOUR TIMES DAILY, # 360 tablet, 0 Refills, Maintenance, 04/13/22 20:23:00 EST, [facility] #[id number], 153, cm, 01/04/22 13:15:00 EDT, Height, 113.9, kg,10/08/21 13:23:00 EDT, Dry Weight Start Date: 04/13/22 Status: Ordered gabapentin 800 mg oral tablet 1 tablet, By Mouth, 4 times a day, # 360 tablet, 1 Refills, Maintenance, 04/13/22 20:23:00 EST, [facility] #[id number], 153, cm, 01/04/22 13:15:00 EDT, Height, 113.9, [...] capsule, 1 Refills, Maintenance, 12/08/21 10:10:00 EDT, [facility] #[id number], 153, cm, 10/08/21 13:23:00 EDT, Height, 113.9,kg, [...] 1 Refills, Maintenance, 03/14/22 15:04:00 EST, Tablet, [facility] #[id number], Partial fill upon patient request if the prescription is for a schedule II opioid drug., 153, cm... Start Date: 03/14/22 Status: Ordered meloxicam 15 mg oral tablet 1/2 TO 1 TABLET, By Mouth, Daily, PRN NEEDED FOR MODERATE PAIN, # 30 tablet, 5 Refills, Maintenance, 01/10/22 20:40:00 EDT, [facility] #[id number], 153, cm, 01/04/22 13:15:00 EDT, Height, 113.9, [...] capsule, 0 Refills, Maintenance, 01/16/22 8:28:00 EDT, [facility] #[id number], 153, cm, 01/04/22 13:15:00 EDT, Height, 113.9, kg, 10/08/21 13:23:00 EDT, Dry Weight Start Date: 01/16/22 Status: Ordered ondansetron 4 mg oral tablet 1 tablet, By Mouth, Every 8 hours, PRN NEEDED FOR NAUSEA OR VOMITING, # 30 tablet, 1 Refills, Maintenance, 04/14/22 21:15:00 EST, [facility] #[id number], 153, cm, 01/04/22 13:15:00 EDT, Height, 113.9, kg, 10/08/21 13:23:00 EDT, Dry Weight Start Date: 04/14/22 Status: Ordered oxybutynin 5 mg oral tablet 1 tablet, By Mouth, 3 times a day, # 270 tablet, 1 Refills, 01/10/22 10:29:00 EDT, [facility] #[id number], 153, cm, 01/04/22 13:15:00 EDT, Height, 113.9, [...] 04/14/22 21:16:00 EST, Route to Pharmacy Electronically, [facility] #[id number], Partial fill upon patient request if the... [...] Personnel Name: Candis CARDENAS, Kaiden Villalta Position: [facility] Primary Care Physician Member Role: PCP Address: Address: [address] [place] [address] Adult & [place] [address]- Care Team Related Persons Name: RODOLFO SHEIKH Address: home [address] [facility] [address] [place] [address] Name: CHIARA TEE Address: home [address] [place] [address] [address] [place] [address]
--- OUTSIDE RECORDS SUMMARY | 2022-12-30 08:16 | XMS_ITS | Continuity of Care Document ---
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 Start Date: 12/22/21 Status: Ordered albuterol 0.083% inhalation solution 3 mL = 2.5 mg, Inhalation, Every 4 hours, PRN for wheezing/cough/shortness of breath, # 25 each, 0 Refills, Maintenance, 10/14/21 22:10:00 EDT, Solution, [facility] #[id number], Partial fill upon patient request if the prescription is for a sched... Start Date: 10/14/21 Status: Ordered benzonatate 100 mg oral capsule 2 capsule, By Mouth, 3 times a day, PRN NEEDED FOR COUGH, # 30 capsule, 1 Refills, Maintenance, 12/10/22 15:43:00 EDT, [facility] #[id number], 153, cm, 10/08/21 13:23:00 EDT, Height, 113.9, kg, 10/08/21 13:23:00 EDT, Dry Weight Start Date: 12/10/22 Status: Ordered benzonatate 100 mg oral capsule 2 capsule, By Mouth, 3 times a day, PRN NEEDED FOR COUGH, # 30 capsule, 1 Refills, Physician Stop 12/10/22 15:43:00 EDT, 11/10/22 14:46:00 EDT, [facility] #[id number], 153, cm, 10/08/21 13:23:00 EDT, Height, 113.9, [...] tablet, 0 Refills, Maintenance, 12/27/21 13:43:00 EDT, [facility] #[id number], 153, cm, 10/08/21 13:23:00 EDT, Height, 113.9, kg, 10/08/21 13:23:00EDT, Dry Weight Start Date: 12/27/21 Status: Ordered clonazePAM 0.5 mg oral tablet 1 tablet = 0.5 mg, By Mouth, 4 times a day, PRN Anxiety, Patient on controlled substance contract. Please do NOT fill until 09/23/2020, # 112 tablet, 0 Refills, Maintenance, 11/18/20 21:02:00 EDT, Tablet, [facility]/pharmacy #[id number], Partial fill upon patient... Start Date: 11/18/20 Status: Ordered diclofenac 1% topical gel = 1 Gm, Topically, 4 times a day, FOR PAIN., # 100 Gm, 1 Refills, [facility] [id number], 30, APPLY 1 GM TOPICALLY 4 TIMES A DAY FOR PAIN, 153, cm, 06/07/21 11:07:00 EST, Height, 105, kg, 05/31/21 15:15:00 EST, Dry Weight Start Date: 08/05/21 Status: Ordered Dilaudid 2 mg oral tablet 1 tablet = 2 mg, By Mouth, 2 times a day, PRN Pain , Severe, checked masspat, # 28 tablet, 0 Refills, Maintenance, 12/22/21 10:40:00 EDT, Tablet, [facility] #[id number], Partial fill upon patient request if the prescription is for a schedule II o... Start Date: 12/22/21 Status: Ordered Estrace Vaginal Cream 0.1 mg/g = 2 Gm, Vaginally, Daily at bedtime, 2g PV daily at bedtime x 2 weeks, then 1g PV 1-3x per week, # 42.5 Gm, 5 Refills, Maintenance, 11/09/21 11:17:00 EDT, [facility] #[id number], Partial fill upon patient request if the prescription is for a sche... Start Date: 11/09/21 Status: Ordered estradiol 0.0375 mg/24 hours twice weekly transdermal film, extended release See Instructions, 1 patch Topically, change patch twice a week, # 1 pack/packet, 1 Refills, Maintenance, 12/07/21 10:42:00 EDT, [facility] #09353, Partial fill upon patient request if the prescription is for a schedule II opioid drug., 153,... Start Date: 12/07/21 Status: Ordered gabapentin 800 mg oral tablet See Instructions, TAKE 1 TABLET BY MOUTH FOUR TIMES DAILY, # 360 tablet, 0 Refills, [facility] #[id number], 153, cm, 10/08/21 13:23:00 EDT, Height, 113.9, [...] capsule, 1 Refills, Maintenance, 12/08/21 10:10:00 EDT, [facility] #[id number], 153, cm, 10/08/21 13:23:00 EDT, Height, 113.9,kg, [...] 1 Refills, Maintenance, 07/30/21 12:25:00 EDT, Tablet, [facility] #63025, Partial fill upon patient request if the prescription is for a schedule II opioid drug... Start Date: 07/30/21 Status: Ordered levothyroxine 0.1 mg oral tablet 1 tablet = 100 mcg, By Mouth, Daily, dose increase, # 90 tablet, 0 Refills, Maintenance, 11/01/21 16:08:00 EDT, [facility] #[id number], Please discontinue 88ug, 153, cm, 10/08/21 13:23:00 [...] 1 Refills, Maintenance, 11/30/21 15:44:00 EDT, Tablet, [facility] #[id number], [place]... Start Date: 11/30/21 Status: Ordered lidocaine 3% topical gel 1 application, Topically, 2 times a day, PRN as needed for pain, to replace 2% topical, # 28.5 Gm, 2 Refills, Acute 03/29/22 14:17:00 EST, 12/28/21 14:17:00 EDT, Gel, [facility] #[id number], Partial fill upon patient request if the prescription i... Start Date: 12/28/21 Stop Date: 03/29/22 Status: Ordered lidocaine 4% topical cream 1 application, Topically, 2 times a day, PRN Pain , Mild, # 30 Gm, 1 Refills, Acute 01/27/22 17:31:00 EDT, 12/28/21 17:31:00 EDT, Cream, [facility] #[id number], Partial fill upon patient requestif the prescription is for a schedule II opioid cedrick... Start Date: 12/28/21 Stop Date: 01/27/22 Status: Ordered meloxicam 15 mg oral tablet 1/2 TO 1 TABLET, By Mouth, Daily, PRN NEEDED FOR MODERATE PAIN, # 30 tablet, 1 Refills, :04:00 EDT, [facility] #[id number], 153, cm, 10/08/21 13:23:00 EDT, Height, 113.9, kg, 10/08/21 13:23:00 EDT, Dry Weight Start Date: 11/16/21 Status: Ordered metroNIDAZOLE 500 mg oral tablet 1 tablet = 500 mg, By Mouth, Every 12 hours, for 7 days, do not drink alcohol, # 14 tablet, 0 Refills, Acute 01/05/22 16:58:00 EDT, 12/29/21 16:58:00 EDT, Tablet, [facility] #[id number], Partialfill upon patient request if the prescription [...] 90 capsule, 0 Refills, 09/27/21 14:31:00 EDT, [facility] #[id number], 153, cm, 08/10/21 11:19:00 EDT, Height, 105, kg, 05/31/21 15:15:00 EST, Dry Weight Start Date: 09/27/21 Status: Ordered ondansetron 4 mg oral tablet 1 tablet = 4 mg, By Mouth, Every 8 hours, PRN Nausea & Vomiting, # 30 tablet, 1 Refills, Maintenance, 11/10/21 14:47:00 EDT, [facility] #[id number], 153, cm, 10/08/21 13:23:00 EDT, Height, 113.9, kg, 10/08/21 13:23:00 EDT, Dry Weight Start Date: 11/10/21 Status: Ordered oxybutynin 5 mg oral tablet 1 tablet, By Mouth, 3 times a day, # 270 tablet, 1 Refills, [facility], 153, cm, 08/10/21 11:19:00 EDT, Height, 105, [...] Personnel Name: Kaiden Chirinos MD Address: [address] [place] [address] Adult & Pediatric Medicine [address]
--- OUTSIDE RECORDS SUMMARY | 2022-12-30 08:16 | XMS_ITS | Continuity of Care Document ---
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 Start Date: 12/22/21 Status: Ordered albuterol 0.083% inhalation solution 3 mL = 2.5 mg, Inhalation, Every 4 hours, PRN for wheezing/cough/shortness of breath, # 25 each, 0 Refills, Maintenance, 06/29/22 13:08:00 EDT, Solution, [facility] #[id number], Partial fill upon patient request if the prescription is for a sched... Start Date: 06/29/22 Status: Ordered [place] Saline Mist 0.65% nasal spray 2 sprays, Nares, Both, 4 times a day, # 1 each, 0 Refills, Maintenance, 02/04/22 13:32:00 EDT, [facility] #[id number], Partial fill upon patient request if the [...] tablet, 0 Refills, Maintenance, 12/27/21 13:43:00 EDT, [facility] #[id number], 153, cm, 10/08/21 13:23:00 EDT, Height, 113.9, kg, 10/08/21 13:23:00EDT, Dry Weight Start Date: 12/27/21 Status: Ordered chlorhexidine 2% topical liquid See Instructions, 1 application to bilateral forearms twice weekly, # 120 mL, 3 Refills, Soft [facility],06/17/22 11:06:00 EST, Liquid, [facility] #[id number], Partial fill upon patient request if the prescription is for a schedule II opioid drug., 1... Start Date: 06/17/22 Status: Ordered chlorhexidine 4% topical soap See Instructions, apply topically twice weekly to skin on forearms, # 120 mL, 2 Refills, Soft [facility],06/17/22 16:03:00 EST, [facility] #[id number], Partial fill upon patient request if the [...] FOR PAIN., # 100 Gm, 1 Refills, [facility], 30, APPLY 1 GM TOPICALLY 4 TIMES A DAY FOR PAIN, 153, cm, 06/07/21 11:07:00 EST, Height, 105, kg, 05/31/21 15:15:00 EST, Dry Weight Start Date: 08/05/21 Status: Ordered Dilaudid 2 mg oral tablet 1 tablet = 2 mg, By Mouth, 2 times a day, PRN Pain , Severe, checked masspat, # 56 tablet, 0 Refills, Maintenance, 11/28/22 11:25:00 EDT, Tablet, [facility] #[id number], Partial fill upon patient request if the prescription is for a schedule II o... Start Date: 11/28/22 Status: Ordered Estrace Vaginal Cream 0.1 mg/g = 2 Gm, Vaginally, Daily at bedtime, 2g PV daily at bedtime x 2 weeks, then 1g PV 1-3x per week, # 42.5 Gm, 5 Refills, Maintenance, 11/09/21 11:17:00 EDT, [facility] #[id number], Partial fill upon patient request if the prescription is for a sche... Start Date: 11/09/21 Status: Ordered Estradiol Patch 0.0375 mg/24 hours twice weekly transdermal film, extended release See Instructions, APPLY 1 PATCH TOPICALLY TWICE WEEKLY DIRECTED, # 8 patch, 2 Refills, Maintenance, 09/22/22 21:55:00 EDT, [facility] #[id number], 28, APPLY 1 PATCH TOPICALLY TWICE WEEKLY DIRECTED, 153, cm, 06/17/22 10:53:00 EST, Height, 10... Start Date: 09/22/22 Status: Ordered fluconazole 150 mg oral tablet 1 tablet = 150 mg, By Mouth, Once, PRN vaginal yeast infection, repeat dose in 72 hours if symptomsnot resolved, # 2 tablet, 0 Refills, Soft [facility], 11/08/22 15:31:00 EDT, Tablet, [facility]#86389, Partial fill upon patient request if the pr... Start Date: 11/08/22 Status: Ordered fluticasone 50 mcg/inh nasal spray See Instructions, SHAKE LIQUID AND USE 1 SPRAY IN EACH NOSTRIL TWICE DAILY, # 16 Gm, 1 Refills, Maintenance, 05/18/22 13:57:00 EST, [facility] #[id number], 30, SHAKE LIQUID AND USE 1 SPRAY IN EACH NOSTRIL TWICE DAILY, 153, cm, 04/25/22 16:23:00 E... Start Date: 05/18/22 Status: Ordered gabapentin 800 mg oral tablet 1 tablet, By Mouth, 4 times a day, # 360 tablet, 1 Refills, Maintenance, 10/25/22 21:47:00 EDT, [facility] #[id number], 153, cm, 06/17/22 10:53:00 EST, Height, 109, [...] capsule, 1 Refills, Maintenance, 11/15/22 11:13:00 EDT, [facility] #[id number], 154, cm, 10/29/22 14:42:00 EDT, Height, 109, [...] 1 Refills, Maintenance, 04/28/22 13:51:00 EST, Tablet, [facility] #[id number], Partial fill upon patient request if the prescription is for a schedule II opioid drug., 153, cm... Start Date: 04/28/22 Status: Ordered lidocaine 4% topical cream 1 application, Topically, 3 times a day, PRN Pain , Mild, # 30 Gm, 1 Refills, Maintenance, 06/24/2315:24:00 EST, Cream, [facility] #[id number], Partial fill upon patient request if the prescription is for a schedule II opioid drug., 1 applicatio... Start Date: 06/23/22 Status: Ordered meloxicam 15 mg oral tablet 1/2 TO 1 TABLET, By Mouth, Daily, PRN NEEDED FOR MODERATE PAIN, # 30 tablet, 5 Refills, Maintenance, 01/10/22 20:40:00 EDT, [facility] #[id number], 153, cm, 01/04/22 13:15:00 EDT, Height, 113.9, [...] capsule, 1 Refills, Maintenance, 07/26/22 14:24:00 EDT, [facility] #[id number], 153, cm, 06/17/22 10:53:00 EST, Height, 109, kg, 06/17/22 10:53:00 EST, Dry Weight Start Date: 07/26/22 Status: Ordered ondansetron 4 mg oral tablet 1 tablet, By Mouth, Every 8 hours, PRN NEEDED FOR NAUSEA OR VOMITING, # 30 tablet, 1 Refills, Maintenance, 10/27/22 23:08:00 EDT, [facility] #[id number], 153, cm, 06/17/22 10:53:00 EST, Height, 109, kg, 06/17/22 10:53:00 EST, Dry Weight Start Date: 10/27/22 Status: Ordered oxybutynin 5 mg oral tablet 1 tablet, By Mouth, 3 times a day, # 270 tablet, 1 Refills, Maintenance, 10/04/22 20:44:00 EDT, [facility] #[id number], 153, cm, 06/17/22 10:53:00 EST, Height, 109, [...] 11/18/22 16:07:00 EDT, Route to Pharmacy Electronically, [facility] #[id number], Partial fill upon patient request if the prescrip... Start Date: 11/18/22 Status: Ordered traZODone 50 mg oral tablet 1-2 tablet, By Mouth, Daily, one hour prior to bedtime. dose increase, # 60 tablet, Refills 2, Tot.Refills 2, Maintenance, 07/01/22 14:21:00 EDT, Route to Pharmacy Electronically, [facility] #[id number], Partial fill upon patient request if the... Start Date: 07/01/22 Status: Ordered triamcinolone 0.1% topical cream 1 application, Topically, 3 times a day, PRN arm rash, # 30 Gm, 1 Refills, Acute 06/08/23 9:53:00 EST, 06/08/22 9:53:00 EST, Cream, [facility] #[id number], Partial fill upon patient request if the [...] Primary Care Member Role: PCP Address: Address: [address] [place] [address]- Care Team Related Persons Name: RODOLFO SHEIKH Address: home [address] [facility] [address] [place] [address] Name: CHIARA TEE Address: home [address] [place] [address] [address] [place] [address]
--- OUTSIDE RECORDS SUMMARY | 2022-12-30 08:16 | XMS_ITS | Continuity of Care Document ---
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 Start Date: 12/24/20 Status: Ordered baclofen 10 mg oral tablet 10 mg, 1, tablet, By Mouth, 3 times a day, PRN, # 30 tablet, Refills 0, Tot. Refills 0, Maintenance, Spasm, 01/31/19 21:47:23 EDT, Route to Pharmacy Electronically, [id number], [facility]/pharmacy #[id number] Start Date: 01/31/19 Stop Date: 02/14/19 Status: Ordered benzonatate 100 mg oral capsule 2 capsule, By Mouth, 3 times a day, PRN NEEDED FOR COUGH, # 30 capsule, 1 Refills, Physician Stop 03/19/22 17:38:00 EST, 02/19/22 16:55:00 EDT, [facility]/pharmacy #[id number], 160, cm, 12/04/20 10:52:00 EDT, Height, 104.6, kg, 12/04/20 10:52:00 EDT, Dry Weight Start Date: 02/19/22 Stop Date: 03/19/22 Status: Ordered benzonatate 100 mg oral capsule 2 capsule, By Mouth, 3 times a day, PRN NEEDED FOR COUGH, # 30 capsule, 1 Refills, Physician Stop 02/19/22 16:55:00 EDT, 02/19/21 16:54:00 EDT, [facility]/pharmacy #[id number], 160, cm, 12/04/20 [...] 21:02:00 EDT, Tablet, [facility]/pharmacy #[id number], Partial fill upon patient... Start Date: 11/18/20 Status: Ordered Famotidine 0 Refills, Maintenance, 04/07/19 16:11:00 EST Start Date: 04/07/19 Status: Ordered gabapentin 800 mg oral tablet 1 tablet, By Mouth, 4 times a day, # 360 tablet, 1 Refills, [facility] STORE [id number], 160, cm, 03/30/21 10:47:00 EST, Height, 104.6, [...] 1 Refills, Maintenance, 02/25/21 8:28:00 EST, Capsule, [facility]/pharmacy #[id number], Partial fill upon patient request if the [...] before breakfast, # 90 tablet, 0 Refills, [facility] STORE [id number], 160, cm, 03/30/21 10:47:00 EST, Height, 104.6, kg, 12/04/20 10:52:00 EDT, Dry Weight Start Date: 04/15/21 Status: Ordered meloxicam 15 mg oral tablet 1/2 TO 1 TABLET, By Mouth, Daily, PRN NEEDED FOR MODERATE PAIN, # 30 tablet, 1 Refills, [facility] [id number], 160, cm, 12/04/20 10:52:00 EDT, Height, 104.6, kg, 12/04/20 10:52:00 EDT, Dry Weight Start Date: 01/22/21 Status: Ordered omeprazole 20 mg oral enteric coated capsule 1 capsule, By Mouth, Daily, # 90 capsule, 1 Refills, [id number], 160, cm, 03/30/21 10:47:00 EST, Height, 104.6, [...] 1 Refills, Maintenance, 10/30/20 8:45:00 EDT, Tablet, [facility]/pharmacy #[id number], Partial fill upon patient reques... Start Date: 10/30/20 Status: Ordered traZODone 150 mg oral tablet 1.5 tablet = 225 mg, By Mouth, Daily at bedtime, dose increase, # 135 tablet, 1 Refills, Maintenance, 04/06/21 12:26:00 EST, Tablet, [facility]/pharmacy #[id number], Partial fill upon [...]
--- OUTSIDE RECORDS SUMMARY | 2022-12-30 08:16 | XMS_ITS | Continuity of Care Document ---
Author Name Unknown Organization [facility] Address [address] [place] [address]- Care Team Providers Care Cost Accounting Manager Name Role Phone Kaiden Chirinos MD Primary Care Physician [phone] Encounter [facility] Date(s): 03/23/22 - 04/22/22 [facility] [address] [place], [place] [address] Allergies, Adverse Reactions, Alerts Substance Reaction [...] 8.5 Gm,0 Refills, Maintenance, 12/22/21 10:40:00 EDT, [facility] #[id number], 2 puffs Inhalation Every 4 hours,PRN: NEEDED FOR WHEEZING/cough/shortness... Start Date: 12/22/21 Status: Ordered albuterol 0.083% inhalation solution 3 mL = 2.5 mg, Inhalation, Every 4 hours, PRN for wheezing/cough/shortness of breath, # 25 each, 0 Refills, Maintenance, 10/14/21 22:10:00 EDT, Solution, [facility] #[id number], Partial fill upon patient request if the prescription is for a sched... Start Date: 10/14/21 Status: Ordered [place] Saline Mist 0.65% nasal spray 2 sprays, Nares, Both, 4 times a day, # 1 each, 0 Refills, Maintenance, 02/04/22 13:32:00 EDT, [facility] #[id number], Partial fill upon patient request if the [...] tablet, 0 Refills, Maintenance, 12/27/21 13:43:00 EDT, [facility] #[id number], 153, cm, 10/08/21 13:23:00 EDT, Height, 113.9, [...] # 100 Gm, 1 Refills, [facility], 30, APPLY 1 GM TOPICALLY 4 TIMES A DAY FOR PAIN, 153, cm, 06/07/21 11:07:00 EST, Height, 105, kg, 05/31/21 15:15:00 EST, Dry Weight Start Date: 08/05/21 Status: Ordered Dilaudid 2 mg oral tablet 1 tablet = 2 mg, By Mouth, 2 times a day, PRN Pain , Severe, checked masspat, # 56 tablet, 0 Refills, Maintenance, 04/07/22 21:32:00 EST, Tablet, [facility] #[id number], Partial fill upon patient request if the prescription is for a schedule II o... Start Date: 04/07/22 Status: Ordered Estrace Vaginal Cream 0.1 mg/g = 2 Gm, Vaginally, Daily at bedtime, 2g PV daily at bedtime x 2 weeks, then 1g PV 1-3x per week, # 42.5 Gm, 5 Refills, Maintenance, 11/09/21 11:17:00 EDT, [facility] #[id number], Partial fill upon patient request if the prescription is for a sche... Start Date: 11/09/21 Status: Ordered Estradiol Patch 0.0375 mg/24 hours twice weekly transdermal film, extended release See Instructions, APPLY 1 PATCH TOPICALLY TWICE WEEKLY DIRECTED, # 8 patch, 6 Refills, Maintenance, 03/23/22 16:10:00 EST, [facility] #[id number], 28, APPLY 1 PATCH TOPICALLY TWICE WEEKLY DIRECTED, 153, cm, 01/04/22 13:15:00 EDT, Height, 11... Start Date: 03/23/22 Status: Ordered Flonase 50 mcg/inh nasal spray 1 sprays, Nares, Both, 2 times a day, # 16 Gm, 0 Refills, Maintenance, 04/19/22 14:04:00 EST, [place], [facility] #[id number], Partial fill upon patient request if the prescription is for a schedule II opioid drug., 1 sprays Nares, Both 2 times a d... Start Date: 04/19/22 Status: Ordered fluconazole 150 mg oral tablet 1 tablet = 150 mg, By Mouth, Once, PRN vaginal yeast infection, # 1 tablet, 0 Refills, Soft Stop, 03/15/22 10:42:00 EST, Tablet, [facility] #[id number], Partial fill upon patient request if the prescription is for a schedule II opioid drug., 153,... Start Date: 03/15/22 Status: Ordered gabapentin 800 mg oral tablet 1 tablet, By Mouth, 4 times a day, # 360 tablet, 1 Refills, Maintenance, 04/19/22 12:59:00 EST, [facility] #[id number], 153, cm, 01/04/22 13:15:00 EDT, Height, 113.9, [...] capsule, 1 Refills, Maintenance, 12/08/21 10:10:00 EDT, [facility] #[id number], 153, cm, 10/08/21 13:23:00 EDT, Height, 113.9,kg, [...] increase, # 90 tablet, 1 Refills, Maintenance, 04/19/22 12:01:00 EST, Tablet, [facility] #[id number], Partial fill upon patient request if the prescription is for a schedule II opioid drug., 153, cm... Start Date: 04/19/22 Status: Ordered meloxicam 15 mg oral tablet 1/2 TO 1 TABLET, By Mouth, Daily, PRN NEEDED FOR MODERATE PAIN, # 30 tablet, 5 Refills, Maintenance, 01/10/22 20:40:00 EDT, [facility] #[id number], 153, cm, 01/04/22 13:15:00 EDT, Height, 113.9, [...] capsule, 1 Refills, Maintenance, 04/19/22 12:41:00 EST, [facility] #[id number], 153, cm, 01/04/22 13:15:00 EDT, Height, 113.9, kg, 10/08/21 13:23:00 EDT, Dry Weight Start Date: 04/19/22 Status: Ordered ondansetron 4 mg oral tablet 1 tablet, By Mouth, Every 8 hours, PRN NEEDED FOR NAUSEA OR VOMITING, # 30 tablet, 1 Refills, Maintenance, 04/14/22 21:15:00 EST, [facility] #[id number], 153, cm, 01/04/22 13:15:00 EDT, Height, 113.9, kg, 10/08/21 13:23:00 EDT, Dry Weight Start Date: 04/14/22 Status: Ordered oxybutynin 5 mg oral tablet 1 tablet, By Mouth, 3 times a day, # 270 tablet, 1 Refills, 01/10/22 10:29:00 EDT, [facility] #[id number], 153, cm, 01/04/22 13:15:00 EDT, Height, 113.9, [...] 04/14/22 21:16:00 EST, Route to Pharmacy Electronically, [facility] #[id number], Partial fill upon patient request if the... Start Date: 04/14/22 Status: Ordered valacyclovir 1 gm oral tablet 1 tablet = 1 Gm, By Mouth, Every 8 hours, for 7 days, # 21 tablet, 0 Refills, Acute 04/26/22 14:05:00 EST, 04/19/22 14:05:00 EST, Tablet, [facility] #[id number], Partial fill upon patient request if the prescription is for a schedule II opioid Start Date: 04/19/22 Stop Date: 04/26/22 Status: Ordered Problem List Condition Confirmation Course [...] Care Physician Member Role: PCP Address: Address: [address] [place] [address] Adult [facility] [place] [address]- Care Team Related Persons Name: RODOLFO SHEIKH Address: home [address] [facility] [address] [place] [address] Name: CHIARA TEE Address: home [address] [place] [address] [place] [address]
--- OUTSIDE RECORDS SUMMARY | 2022-12-30 08:16 | XMS_ITS | Continuity of Care Document ---
Author Name Unknown Organization [facility] Address [address] [place], [place] [address]sarah espana, [address] [place] [address]- Care Team Providers Care Nursery Hand Name Role Phone Candis CARDENAS, Kaiden Villalta Primary Care Physician [phone] Encounter [facility] Date(s): 04/27/22 - 05/27/22 [facility] [address] [place] [address] Drive, [address] [place] [address]- Allergies, Adverse Reactions, Alerts Substance Reaction Severity [...] 8.5 Gm,0 Refills, Maintenance, 12/22/21 10:40:00 EDT, [id number] #[id number], 2 puffs Inhalation Every 4 hours,PRN: NEEDED FOR WHEEZING/cough/shortness... Start Date: 12/22/21 Status: Ordered albuterol 0.083% inhalation solution 3 mL = 2.5 mg, Inhalation, Every 4 hours, PRN for wheezing/cough/shortness of breath, # 25 each, 0 Refills, Maintenance, 10/14/21 22:10:00 EDT, Solution, [facility] #[id number], Partial fill upon patient request if the prescription is for a sched... Start Date: 10/14/21 Status: Ordered [place] Saline Mist 0.65% nasal spray 2 sprays, Nares, Both, 4 times a day, # 1 each, 0 Refills, Maintenance, 02/04/22 13:32:00 EDT, [facility] #[id number], Partial fill upon patient request if [...] tablet, 0 Refills, Maintenance, 12/27/21 13:43:00 EDT, [facility] #[id number], 153, cm, 10/08/21 13:23:00 EDT, Height, 113.9, [...] # 100 Gm, 1 Refills, [facility], 30, APPLY 1 GM TOPICALLY 4 TIMES A DAY FOR PAIN, 153, cm, 06/07/21 11:07:00 EST, Height, 105, kg, 05/31/21 15:15:00 EST, Dry Weight Start Date: 08/05/21 Status: Ordered Dilaudid 2 mg oral tablet 1 tablet = 2 mg, By Mouth, 2 times a day, PRN Pain , Severe, checked masspat, # 56 tablet, 0 Refills, Maintenance, 05/05/22 17:13:00 EST, Tablet, [facility] #[id number], Partial fill upon patient request if the prescription is for a schedule II o... Start Date: 05/05/22 Status: Ordered Estrace Vaginal Cream 0.1 mg/g = 2 Gm, Vaginally, Daily at bedtime, 2g PV daily at bedtime x 2 weeks, then 1g PV 1-3x per week, # 42.5 Gm, 5 Refills, Maintenance, 11/09/21 11:17:00 EDT, [facility] #[id number], Partial fill upon patient request if the prescription is for a sche... Start Date: 11/09/21 Status: Ordered Estradiol Patch 0.0375 mg/24 hours twice weekly transdermal film, extended release See Instructions, APPLY 1 PATCH TOPICALLY TWICE WEEKLY DIRECTED, # 8 patch, 6 Refills, Maintenance, 03/23/22 16:10:00 EST, [facility] #[id number], 28, APPLY 1 PATCH TOPICALLY TWICE WEEKLY DIRECTED, 153, cm, 01/04/22 13:15:00 EDT, Height, 11... Start Date: 03/23/22 Status: Ordered fluconazole 150 mg oral tablet 1 tablet = 150 mg, By Mouth, Once, PRN vaginal yeast infection, # 1 tablet, 0 Refills, Soft Stop, 03/15/22 10:42:00 EST, Tablet, [facility] #[id number], Partial fill upon patient request if the prescription is for a schedule II opioid drug., 153,... Start Date: 03/15/22 Status: Ordered fluticasone 50 mcg/inh nasal spray See Instructions, SHAKE LIQUID AND USE 1 SPRAY IN EACH NOSTRIL TWICE DAILY, # 16 Gm, 1 Refills, Maintenance, 05/18/22 13:57:00 EST, [facility] #[id number], 30, SHAKE LIQUID AND USE 1 SPRAY IN EACH NOSTRIL TWICE DAILY, 153, cm, 04/25/22 16:23:00 E... Start Date: 05/18/22 Status: Ordered gabapentin 800 mg oral tablet 1 tablet, By Mouth, 4 times a day, # 360 tablet, 1 Refills, Maintenance, 04/19/22 12:59:00 EST, [facility] #[id number], 153, cm, 01/04/22 13:15:00 EDT, Height, 113.9, [...] capsule, 1 Refills, Maintenance, 05/20/22 12:57:00 EST, [facility] #[id number], 153, cm, 04/25/22 16:23:00 EST, Height, 109, [...] 1 Refills, Maintenance, 04/28/22 13:51:00 EST, Tablet, [facility] #[id number], Partial fill upon patient request if the prescription is for a schedule II opioid drug., 153, cm... Start Date: 04/28/22 Status: Ordered lidocaine 4% topical cream 1 application, Topically, 3 times a day, PRN pain of forearms, # 30 Gm, 1 Refills, Acute 06/23/22 16:24:00 EST, 04/25/22 16:23:00 EST, Cream, [facility] #[id number], Partial fill upon patient request if the prescription is for a schedule II opioi... Start Date: 04/25/22 Stop Date: 06/23/22 Status: Ordered meloxicam 15 mg oral tablet 1/2 TO 1 TABLET, By Mouth, Daily, PRN NEEDED FOR MODERATE PAIN, # 30 tablet, 5 Refills, Maintenance, 01/10/22 20:40:00 EDT, [facility] #[id number], 153, cm, 01/04/22 13:15:00 EDT, Height, 113.9, [...] capsule, 1 Refills, Maintenance, 04/19/22 12:41:00 EST, [facility] #[id number], 153, cm, 01/04/22 13:15:00 EDT, Height, 113.9, kg, 10/08/21 13:23:00 EDT, Dry Weight Start Date: 04/19/22 Status: Ordered ondansetron 4 mg oral tablet 1 tablet, By Mouth, Every 8 hours, PRN NEEDED FOR NAUSEA OR VOMITING, # 30 tablet, 1 Refills, Maintenance, 04/14/22 21:15:00 EST, [facility] #[id number], 153, cm, 01/04/22 13:15:00 EDT, Height, 113.9, kg, 10/08/21 13:23:00 EDT, Dry Weight Start Date: 04/14/22 Status: Ordered oxybutynin 5 mg oral tablet 1 tablet, By Mouth, 3 times a day, # 270 tablet, 1 Refills, 01/10/22 10:29:00 EDT, [facility] #[id number], 153, cm, 01/04/22 13:15:00 EDT, Height, 113.9, [...] 04/14/22 21:16:00 EST, Route to Pharmacy Electronically, [facility] #[id number], Partial fill upon patient request if the... [...] Name: Candis CARDENAS, Kaiden Villalta Position: [facility] Primary Care Physician Member Role: PCP Address: Address: [address] [place] [address] Adult & [place] [address]- Care Team Related Persons Name: RODOLFO SHEIKH Address: home [address] [facility] [address] [place] [address] Name: CHIARA TEE Address: home [address] [place] [address] [place] [address]
--- OUTSIDE RECORDS SUMMARY | 2022-12-30 08:16 | XMS_ITS | Continuity of Care Document ---
Author Name Unknown Organization [facility] Address [address] [place] [address]- Care Team Providers Care Mine Captain Name Role Phone Candis CARDENAS, Kaiden Villalta Primary Care Physician [phone] [facility] Date(s): 04/19/22 - 04/26/22 [facility] [address] [place] [address]- Encounter Diagnosis Chronic cough(Discharge Diagnosis) - 04/19/22 Attending Physician: Rachel Simpson MD Allergies, Adverse Reactions, Alerts Substance Reaction [...] 8.5 Gm,0 Refills, Maintenance, 12/22/21 10:40:00 EDT, [facility] #[id number], 2 puffs Inhalation Every 4 hours,PRN: NEEDED FOR WHEEZING/cough/shortness... Start Date: 12/22/21 Status: Ordered albuterol 0.083% inhalation solution 3 mL = 2.5 mg, Inhalation, Every 4 hours, PRN for wheezing/cough/shortness of breath, # 25 each, 0 Refills, Maintenance, 10/14/21 22:10:00 EDT, Solution, [facility] #[id number], Partial fill upon patient request if the prescription is for a sched... Start Date: 10/14/21 Status: Ordered [place] Saline Mist 0.65% nasal spray 2 sprays, Nares, Both, 4 times a day, # 1 each, 0 Refills, Maintenance, 02/04/22 13:32:00 EDT, [facility] #[id number], Partial fill upon patient request if the [...] tablet, 0 Refills, Maintenance, 12/27/21 13:43:00 EDT, [facility] #[id number], 153, cm, 10/08/21 13:23:00 EDT, Height, 113.9, kg, 10/08/21 13:23:00EDT, Dry Weight Start Date: 12/27/21 Status: Ordered clonazePAM 0.5 mg oral tablet 1 tablet = 0.5 mg, By Mouth, 4 times a day, PRN Anxiety, Patient on controlled substance contract. Please do NOT fill until 09/23/2020, # 112 tablet, 0 Refills, Maintenance, 11/18/20 21:02:00 EDT, Tablet, [facility]/pharmacy #[id number], Partial fill upon patient... Start Date: 11/18/20 Status: Ordered diclofenac 1% topical gel = 1 Gm, Topically, 4 times a day, FOR PAIN., # 100 Gm, 1 Refills, [facility], 30, APPLY 1 GM TOPICALLY 4 TIMES A DAY FOR PAIN, 153, cm, 06/07/21 11:07:00 EST, Height, 105, kg, 05/31/21 15:15:00 EST, Dry Weight Start Date: 08/05/21 Status: Ordered Dilaudid 2 mg oral tablet 1 tablet = 2 mg, By Mouth, 2 times a day, PRN Pain , Severe, checked masspat, # 56 tablet, 0 Refills, Maintenance, 04/07/22 21:32:00 EST, Tablet, [facility] #[id number], Partial fill upon patient request if the prescription is for a schedule II o... Start Date: 04/07/22 Status: Ordered doxycycline monohydrate 100 mg oral capsule 1 capsule = 100 mg, By Mouth, 2 times a day, for 10 days, take with food, # 20 capsule, 0 Refills, Acute 05/05/22 16:17:00 EST, 04/25/22 16:17:00 EST, Capsule, [facility] #[id number], Partial fill upon patient request if the prescription is for a... Start Date: 04/25/22 Stop Date: 05/05/22 Status: Ordered Estrace Vaginal Cream 0.1 mg/g = 2 Gm, Vaginally, Daily at bedtime, 2g PV daily at bedtime x 2 weeks, then 1g PV 1-3x per week, # 42.5 Gm, 5 Refills, Maintenance, 11/09/21 11:17:00 EDT, [facility] #[id number], Partial fill upon patient request if the prescription is for a sche... Start Date: 11/09/21 Status: Ordered Estradiol Patch 0.0375 mg/24 hours twice weekly transdermal film, extended release See Instructions, APPLY 1 PATCH TOPICALLY TWICE WEEKLY DIRECTED, # 8 patch, 6 Refills, Maintenance, 03/23/22 16:10:00 EST, [facility] #[id number], 28, APPLY 1 PATCH TOPICALLY TWICE WEEKLY DIRECTED, 153, cm, 01/04/22 13:15:00 EDT, Height, 11... Start Date: 03/23/22 Status: Ordered Flonase 50 mcg/inh nasal spray 1 sprays, Nares, Both, 2 times a day, # 16 Gm, 0 Refills, Maintenance, 04/19/22 14:04:00 EST, [place], [facility] #[id number], Partial fill upon patient request if the prescription is for a schedule II opioid drug., 1 sprays Nares, Both 2 times a d... Start Date: 04/19/22 Status: Ordered fluconazole 150 mg oral tablet 1 tablet = 150 mg, By Mouth, Once, PRN vaginal yeast infection, # 1 tablet, 0 Refills, Soft Stop, 03/15/22 10:42:00 EST, Tablet, [facility] #[id number], Partial fill upon patient request if the prescription is for a schedule II opioid drug., 153,... Start Date: 03/15/22 Status: Ordered gabapentin 800 mg oral tablet 1 tablet, By Mouth, 4 times a day, # 360 tablet, 1 Refills, Maintenance, 04/19/22 12:59:00 EST, [facility] #[id number], 153, cm, 01/04/22 13:15:00 EDT, Height, 113.9, [...] capsule, 1 Refills, Maintenance, 12/08/21 10:10:00 EDT, [facility] #[id number], 153, cm, 10/08/21 13:23:00 EDT, Height, 113.9,kg, [...] 1 Refills, Maintenance, 04/19/22 12:01:00 EST, Tablet, [facility] #[id number], Partial fill upon patient request if the prescription is for a schedule II opioid drug., 153, cm... Start Date: 04/19/22 Status: Ordered lidocaine 4% topical cream 1 application, Topically, 3 times a day, PRN pain of forearms, # 30 Gm, 1 Refills, Acute 06/23/22 16:24:00 EST, 04/25/22 16:23:00 EST, Cream, [facility] #[id number], Partial fill upon patient request if the prescription is for a schedule II opioi... Start Date: 04/25/22 Stop Date: 06/23/22 Status: Ordered meloxicam 15 mg oral tablet 1/2 TO 1 TABLET, By Mouth, Daily, PRN NEEDED FOR MODERATE PAIN, # 30 tablet, 5 Refills, Maintenance, 01/10/22 20:40:00 EDT, [facility] #[id number], 153, cm, 01/04/22 13:15:00 EDT, Height, 113.9, [...] capsule, 1 Refills, Maintenance, 04/19/22 12:41:00 EST, [facility] #[id number], 153, cm, 01/04/22 13:15:00 EDT, Height, 113.9, kg, 10/08/21 13:23:00 EDT, Dry Weight Start Date: 04/19/22 Status: Ordered ondansetron 4 mg oral tablet 1 tablet, By Mouth, Every 8 hours, PRN NEEDED FOR NAUSEA OR VOMITING, # 30 tablet, 1 Refills, Maintenance, 04/14/22 21:15:00 EST, [facility] #[id number], 153, cm, 01/04/22 13:15:00 EDT, Height, 113.9, kg, 10/08/21 13:23:00 EDT, Dry Weight Start Date: 04/14/22 Status: Ordered oxybutynin 5 mg oral tablet 1 tablet, By Mouth, 3 times a day, # 270 tablet, 1 Refills, 01/10/22 10:29:00 EDT, [facility] #[id number], 153, cm, 01/04/22 13:15:00 EDT, Height, 113.9, [...] 04/14/22 21:16:00 EST, [id number], Partial fill upon patient request if the... [...] Dates Health Status Cl inical Service Informant Chronic cough Discharge Diagnosis 04/19/22 Social History Social History Type Response Smoking Status Former smoker, quit more than 30 days ago;Never entered on: 11/09/21 Sex Patient Care team information Care Team Personnel Name: Candis CARDENAS, Kaiden Villalta Position: [facility] Primary Care Physician Member Role: PCP Address: Address: [address] [place] [address] Adult & [place] [address]- Care Team Related Persons Name: RODOLFO SHEIKH Address: home [address] [facility] [address] [place] [address] Name: CHIARA TEE Address: home [address] [place] [address] [place] [address]
--- OUTSIDE RECORDS SUMMARY | 2022-12-30 08:16 | XMS_ITS | Continuity of Care Document ---
Author Name Unknown Organization [facility] Address [address] [place] [address]- Care Team Providers Care Carburetor Expert Name Role Phone Kaiden Chirinos MD Primary Care Physician En[place] [facility] Date(s): 11/27/20 - 12/27/20 [facility] [address] [place], [place] [address] Allergies, Adverse Reactions, Alerts [...] 12/24/20 16:08:00 EDT, Route to Pharmacy Electronically, [facility]/pharmacy #[id number], Partial fill upon patient request if the prescription is for a schedule II... Start Date: 12/24/20 Status: Ordered baclofen 10 mg oral tablet 10 mg, 1, tablet, By Mouth, 3 times a day, PRN, # 30 tablet, Refills 0, Tot. Refills 0, Maintenance, Spasm, 01/31/19 21:47:23 EDT, Route to Pharmacy Electronically, [id number], [facility]/pharmacy #[id number] [...] tablet, 1 Refills, Maintenance, 11/09/20 23:47:00EDT, Tablet, [facility]/pharmacy [...] 0 Refills, Maintenance, 11/16/20 8:39:00 EDT, Aerosol, [facility] [...] 1 Refills, Maintenance, 10/30/20 8:45:00 EDT, Tablet, [facility]/pharmacy #[id number], Partial fill upon patient reques... Start Date: 10/30/20 Status: Ordered traZODone 150 mg oral tablet 1 tablet = 150 mg, By Mouth, Daily at bedtime, dose increase, # 90 tablet, 1 Refills, Maintenance, 11/03/20 13:28:00 EDT, Tablet, [facility] [...]
--- OUTSIDE RECORDS SUMMARY | 2022-12-30 08:16 | XMS_ITS | Continuity of Care Document ---
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 Name Role Phone Kaiden Chirinos MD Primary Care Physician [phone] [id number] - [facility]20/[facility] [address], [address] [place] [address]- Attending Physician: Not on Staff, Attending MD [...] FOR WHEEZING, # 8.5 each, 0 Refills, [id number], 20, INHALE 2 PUFFS BY MOUTH EVERY 4 HOURS NEEDED FOR WHEEZING, 160, cm, 03/30/21 10:47:00 EST, Height, 104.6, kg, 12/04/20 10:52:00 EDT, Dry Weight Start Date: 04/28/21 Status: Ordered amitriptyline 10 mg oral tablet 10 mg, 1, tablet, By Mouth, Daily at bedtime, # 90 tablet, Refills 1, Tot. Refills 1, Maintenance, 12/24/20 16:08:00 EDT, Route to Pharmacy Electronically, [facility]/pharmacy #[id number], Partial fill upon patient request if the prescription is for a schedule II... Start Date: 12/24/20 Status: Ordered baclofen 10 mg oral tablet 10 mg, 1, tablet, By Mouth, 3 times a day, PRN, # 30 tablet, Refills 0, Tot. Refills 0, Maintenance, Spasm, 01/31/19 21:47:23 EDT, Route to Pharmacy Electronically, [id number], [facility]/pharmacy #[id number] Start Date: 01/31/19 Stop Date: 02/14/19 Status: Ordered benzonatate 100 mg oral capsule 2 capsule, By Mouth, 3 times a day, PRN NEEDED FOR COUGH, # 30 capsule, 1 Refills, Physician Stop 03/19/22 17:38:00 EST, 02/19/22 16:55:00 EDT, [facility]/pharmacy #[id number], 160, cm, 12/04/20 10:52:00 EDT, Height, 104.6, kg, 12/04/20 10:52:00 EDT, Dry Weight Start Date: 02/19/22 Stop Date: 03/19/22 Status: Ordered benzonatate 100 mg oral capsule 2 capsule, By Mouth, 3 times a day, PRN NEEDED FOR COUGH, # 30 capsule, 1 Refills, Physician Stop 02/19/22 16:55:00 EDT, 02/19/21 16:54:00 EDT, [facility]/pharmacy #[id number], 160, cm, 12/04/20 10:52:00 EDT, Height, [...] a day, # 360 tablet, 1 Refills, [facility] [id number], 160, cm, 03/30/21 10:47:00 EST, Height, 104.6, [...] 1 Refills, Maintenance, 05/14/21 15:23:00 EST, Tablet, [facility]/pharmacy #[id number], Partial fill upon patient request if the prescription is for a schedule II opioid drug., 160, c... Start Date: 05/14/21 Status: Ordered omeprazole 20 mg oral enteric coated capsule 1 capsule, By Mouth, Daily, # 90 capsule, 1 Refills, [facility], 160, cm, 03/30/21 10:47:00 EST, Height, 104.6, kg, 12/04/20 10:52:00 EDT, Dry Weight Start Date: 03/31/21 Status: Ordered ondansetron 4 mg oral tablet See Instructions, TAKE 1 TABLET BY MOUTH EVERY 8 HOURS NEEDED FOR NAUSEA AND VOMITING, # 15 tablet, 1 Refills, Physician Stop 07/12/21 15:23:00 EDT, 05/14/21 15:22:00 EST, [facility]/pharmacy #[id number], 160,cm, 03/30/21 10:47:00 EST, Height, 104.6, kg, 12/04... Start Date: 05/14/21 Stop Date: 07/12/21 Status: Ordered oxybutynin 5 mg oral tablet 1 tablet, By Mouth, 3 times a day, dose increase, # 270 tablet, 1 Refills, Maintenance, 03/19/21 17:40:00 EST, [facility]/pharmacy #[id number], 160, cm, 12/04/20 10:52:00 EDT, Height, [...]
--- OUTSIDE RECORDS SUMMARY | 2022-12-30 08:16 | XMS_ITS | Continuity of Care Document ---
Author Name Unknown Organization [facility] Address [address] [place] [address]- Care Team Providers Care Interior Design Consultant Name Role Phone Candis CARDENAS, Kaiden Villalta Primary Care Physician [phone] [id number] - 01/28/21 [facility] [address] [place] [address]- Encounter Diagnosis Multiple persistent symptoms after COVID-19(Discharge Diagnosis) - 01/21/21 Attending Physician: Ana Cristina CODIFIER, Carey Allergies, Adverse Reactions, Alerts Substance Reaction Severity [...] 12/24/20 16:08:00 EDT, Route to Pharmacy Electronically, [facility]/pharmacy #[id number], Partial fill upon patient request if the prescription is for a schedule II... Start Date: 12/24/20 Status: Ordered Augmentin 500 mg-125 mg oral tablet 1 tablet, By Mouth, Every 12 hours, for 7 days, take with food, # 14 tablet, 0 Refills, Acute 10/18/21 11:48:00 EDT, 01/25/21 11:48:00 EDT, Tablet, [facility]/pharmacy #[id number], Partial fill upon patient request if the prescription is for a schedule II opioid d... Start Date: 01/25/21 Stop Date: 02/01/21 Status: Ordered baclofen 10 mg oral tablet 10 mg, 1, tablet, By Mouth, 3 times a day, PRN, # 30 tablet, Refills 0, Tot. Refills 0, Maintenance, Spasm, 01/31/19 21:47:23 EDT, Route to Pharmacy Electronically, [id number], [facility]/pharmacy #[id number] Start Date: 01/31/19 Stop Date: 02/14/19 Status: Ordered benzonatate 100 mg oral capsule 2 capsule, By Mouth, 3 times a day, PRN NEEDED FOR COUGH, # 30 capsule, 0 Refills, [facility] [id number], 160, cm, 12/04/20 10:52:00 EDT, Height, 104.6, kg, 12/04/20 10:52:00 EDT, Dry Weight Start Date: 01/22/21 Status: Ordered clonazePAM 0.5 mg oral tablet 1 tablet = 0.5 mg, By Mouth, 4 times a day, PRN Anxiety, Patient on controlled substance contract. Please do NOT fill until 09/23/2020, # 112 tablet, 0 Refills, Maintenance, 11/18/20 21:02:00 EDT, Tablet, [facility]/pharmacy #[id number], Partial fill upon patient... Start Date: 11/18/20 Status: Ordered Famotidine 0 Refills, Maintenance, 04/07/19 16:11:00 EST Start Date: 04/07/19 Status: Ordered gabapentin 800 mg oral tablet 1 tablet = 800 mg, By Mouth, 4 times a day, # 360 tablet, 1 Refills, Maintenance, 11/09/20 23:47:00EDT, Tablet, [facility]/pharmacy #[id number], Partial fill upon patient [...] 1 Refills, Maintenance, 11/05/20 11:43:00 EDT, Tablet, [facility]/pharmacy #0937, Partial fill upon patient request if the prescription is for a schedule II opioid drug., 160, cm, 10/30/20 8:2... Start Date: 11/05/20 Status: Ordered meloxicam 15 mg oral tablet 1/2 TO 1 TABLET, By Mouth, Daily, PRN NEEDED FOR MODERATE PAIN, # 30 tablet, 1 Refills, [facility] 73708, 160, cm, 12/04/20 10:52:00 EDT, Height, 104.6, [...] 02/08/21 11:49:00 EDT, 01/25/21 11:49:00 EDT, Tablet, [facility]/pharmacy #[id number], Partial fill upon patient request if the [...] Effective Dates Health Status Clinical Service Informant Multiple persistent symptoms after COVID-19 Discharge Diagnosis 01/21/21 Social History Social History Type Response Smoking Status Former smoker, quit more than 30 days ago;Never entered on: 04/07/19 Sex
--- OUTSIDE RECORDS SUMMARY | 2022-12-30 08:16 | XMS_ITS | Continuity of Care Document ---
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 Start Date: 12/22/21 Status: Ordered albuterol 0.083% inhalation solution 3 mL = 2.5 mg, Inhalation, Every 4 hours, PRN for wheezing/cough/shortness of breath, # 25 each, 0 Refills, Maintenance, 10/14/21 22:10:00 EDT, Solution, [facility] #[id number], Partial fill upon patient request if the prescription is for a sched... Start Date: 10/14/21 Status: Ordered benzonatate 100 mg oral capsule 2 capsule, By Mouth, 3 times a day, PRN NEEDED FOR COUGH, # 30 capsule, 1 Refills, Physician Stop 11/10/22 14:46:00 EDT, 03/19/22 17:38:00 EST, [facility] #[id number], 153, cm, 10/08/21 13:23:00 EDT, Height, 113.9, kg, 10/08/21 13:23:00 EDT, D... Start Date: 03/19/22 Stop Date: 11/10/22 Status: Ordered benzonatate 100 mg oral capsule 2 capsule, By Mouth, 3 times a day, PRN NEEDED FOR COUGH, # 30 capsule, 1 Refills, Physician Stop 12/10/22 15:43:00 EDT, 11/10/22 14:46:00 EDT, [facility] #[id number], 153, cm, 10/08/21 13:23:00 EDT, Height, 113.9, [...] Maintenance, 11/18/20 21:02:00 EDT, Tablet, [facility]/pharmacy #9009, Partial fill upon patient... Start Date: 11/18/20 Status: Ordered diclofenac 1% topical gel = 1 Gm, Topically, 4 times a day, FOR PAIN., # 100 Gm, 1 Refills, [facility], 30, APPLY 1 GM TOPICALLY 4 TIMES A DAY FOR PAIN, 153, cm, 06/07/21 11:07:00 EST, Height, 105, kg, 05/31/21 15:15:00 EST, Dry Weight Start Date: 08/05/21 Status: Ordered Dilaudid 2 mg oral tablet 1 tablet = 2 mg, By Mouth, 2 times a day, PRN Pain , Severe, checked masspat, # 28 tablet, 0 Refills, Maintenance, 12/22/21 10:40:00 EDT, Tablet, [facility] #[id number], Partial fill upon patient request if the prescription is for a schedule II o... Start Date: 12/22/21 Status: Ordered Estrace Vaginal Cream 0.1 mg/g = 2 Gm, Vaginally, Daily at bedtime, 2g PV daily at bedtime x 2 weeks, then 1g PV 1-3x per week, # 42.5 Gm, 5 Refills, Maintenance, 11/09/21 11:17:00 EDT, [facility] #[id number], Partial fill upon patient request if the prescription is for a sche... Start Date: 11/09/21 Status: Ordered estradiol 0.0375 mg/24 hours twice weekly transdermal film, extended release See Instructions, 1 patch Topically, change patch twice a week, # 1 pack/packet, 1 Refills, Maintenance, 12/07/21 10:42:00 EDT, [facility] #[id number], Partial fill upon patient request if the prescription is for a schedule II opioid drug., 153,... Start Date: 12/07/21 Status: Ordered gabapentin 800 mg oral tablet See Instructions, TAKE 1 TABLET BY MOUTH FOUR TIMES DAILY, # 360 tablet, 0 Refills, [facility] #[id number], 153, cm, 10/08/21 13:23:00 EDT, Height, 113.9, [...] capsule, 1 Refills, Maintenance, 12/08/21 10:10:00 EDT, [facility] #[id number], 153, cm, 10/08/21 13:23:00 EDT, Height, 113.9,kg, [...] 1 Refills, Maintenance, 07/30/21 12:25:00 EDT, Tablet, [facility] #[id number], Partial fill upon patient request if the prescription is for a schedule II opioid drug... Start Date: 07/30/21 Status: Ordered levothyroxine 0.1 mg oral tablet 1 tablet = 100 mcg, By Mouth, Daily, dose increase, # 90 tablet, 0 Refills, Maintenance, 11/01/21 16:08:00 EDT, [facility] #[id number], Please discontinue 88ug, 153, cm, 10/08/21 13:23:00 [...] 1 Refills, Maintenance, 11/30/21 15:44:00 EDT, Tablet, [facility] #[id number], [place]... Start Date: 11/30/21 Status: Ordered lidocaine 2% topical gel with applicator 5 mL = 0.1 Gm, Topically, 2 times a day, PRN Pain , Moderate, # 60 mL, 2 Refills, Soft Stop, 09/24/21 16:43:00 EDT, Gel, [facility] #[id number], Partial fill upon patient request if the prescription is for a schedule II opioid drug., 153, cm, ... Start Date: 09/24/21 Status: Ordered meloxicam 15 mg oral tablet 1/2 TO 1 TABLET, By Mouth, Daily, PRN NEEDED FOR MODERATE PAIN, # 30 tablet, 1 Refills, 229:04:00 EDT, [facility] #[id number], 153, cm, 10/08/21 13:23:00 EDT, Height, 113.9, [...] Refills, 09/27/21 14:31:00 EDT, [facility] #[id number], 153, cm, 08/10/21 11:19:00 EDT, Height, 105, kg, 05/31/21 15:15:00 EST, Dry Weight Start Date: 09/27/21 Status: Ordered ondansetron 4 mg oral tablet 1 tablet = 4 mg, By Mouth, Every 8 hours, PRN Nausea & Vomiting, # 30 tablet, 1 Refills, Maintenance, 11/10/21 14:47:00 EDT, [facility] #[id number], 153, cm, 10/08/21 13:23:00 EDT, Height, 113.9, kg, 10/08/21 13:23:00 EDT, Dry Weight Start Date: 11/10/21 Status: Ordered oxybutynin 5 mg oral tablet 1 tablet, By Mouth, 3 times a day, # 270 tablet, 1 Refills, [facility] 95[facility], 153, cm, 08/10/21 11:19:00 EDT, Height, 105, [...] Personnel Name: Candis CARDENAS, Kaiden Villalta Address: [address] [place] [address] Adult & Pediatric Medicine [place], [place] [address]
--- OUTSIDE RECORDS SUMMARY | 2022-12-30 08:16 | XMS_ITS | Continuity of Care Document ---
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 Name Role Phone Candis CARDENAS, Kaiden Villalta Primary Care Physician Encounter [facility] [id number] Date(s): 08/20/21 - 09/19/21 [facility] [address] [place], [place] [address] Attending Physician: Jc Guzmán Admitting Physician: Jc Guzmán Referring Physician: AdmtrJc Allergies, Adverse Reactions, Alerts Substance Reaction Severity [...] FOR WHEEZING, # 8.5 each, 0 Refills, [facility] 89[facility], 20, INHALE 2 PUFFS BY MOUTH EVERY 4 HOURS NEEDED FOR WHEEZING, 160, cm, 03/30/21 10:47:00 EST, Height, 104.6, kg, 12/04/20 10:52:00 EDT, Dry Weight Start Date: 04/28/21 Status: Ordered amitriptyline 10 mg oral tablet 10 mg, 1, tablet, By Mouth, Daily at bedtime, # 90 tablet, Refills 1, Tot. Refills 1, Maintenance, 07/30/21 12:25:00 EDT, Route to Pharmacy Electronically, [facility] #[id number], Partial fill upon patient request if the prescription is for a jasmin... Start Date: 07/30/21 Status: Ordered Augmentin 875 mg-125 mg oral tablet 1 tablet, By Mouth, Every 12 hours, for 5 days, with food or milk, # 10 tablet, 0 Refills, Acute 09/20/21 21:22:00 EDT, 09/15/21 21:22:00 EDT, Tablet, [facility] #[id number], Partial fill upon patient request if the prescription is for a schedule... Start Date: 09/15/21 Stop Date: 09/20/21 Status: Ordered benzonatate 100 mg oral capsule 2 capsule, By Mouth, 3 times a day, PRN NEEDED FOR COUGH, # 30 capsule, 1 Refills, Physician Stop 03/19/22 17:38:00 EST, 02/19/22 16:55:00 EDT, [facility]/pharmacy #[id number], 160, cm, 12/04/20 10:52:00 EDT, Height, 104.6, kg, 12/04/20 10:52:00 EDT, Dry Weight Start Date: 02/19/22 Stop Date: 03/19/22 Status: Ordered benzonatate 100 mg oral capsule 2 capsule, By Mouth, 3 times a day, PRN NEEDED FOR COUGH, # 30 capsule, 1 Refills, Physician Stop 02/19/22 16:55:00 EDT, 02/19/21 16:54:00 EDT, [facility]/pharmacy #[id number], 160, cm, 12/04/20 10:52:00 EDT, [...] Maintenance, 11/18/20 21:02:00 EDT, Tablet, [facility]/pharmacy #0977, Partial fill upon patient... Start Date: 11/18/20 Status: Ordered diclofenac 1% topical gel = 1 Gm, Topically, 4 times a day, FOR PAIN., # 100 Gm, 1 Refills, [facility] 618[facility], 30, APPLY 1 GM TOPICALLY 4 TIMES A DAY FOR PAIN, 153, cm, 06/07/21 11:07:00 EST, Height, 105, kg, 05/31/21 15:15:00 EST, Dry Weight Start Date: 08/05/21 Status: Ordered Dilaudid 2 mg oral tablet 1 tablet = 2 mg, By Mouth, 2 times a day, PRN Pain , Severe, # 28 tablet, 0 Refills, Maintenance, 08/09/21 22:27:00 EDT, Tablet, [facility] #[id number], Partial fill upon patient request if the prescription is for a schedule II opioid drug., 153,... Start Date: 08/09/21 Status: Ordered Dilaudid 2 mg oral tablet 1 tablet = 2 mg, By Mouth, 2 times a day, PRN Pain , Severe, # 28 tablet, 0 Refills, Maintenance, 09/06/21 16:20:00 EDT, Tablet, [facility] #[id number], Partial fill upon patient request if the prescription is for a schedule II opioid drug., 153,... Start Date: 09/06/21 Status: Ordered Famotidine 0 Refills, Maintenance, 04/07/19 16:11:00 EST Start Date: 04/07/19 Status: Ordered gabapentin 800 mg oral tablet 1 tablet, By Mouth, 4 times a day, # 360 tablet, 1 Refills, [facility] 450[facility], 160, cm, 03/30/21 10:47:00 EST, Height, 104.6, [...] FOR ITCHING, # 90 capsule, 1 Refills, [facility] 13070, 153, cm, 06/07/21 11:07:00 EST, Height, 105, [...] 1 Refills, Maintenance, 07/30/21 12:25:00 EDT, Tablet, [facility] #[id number], Partial fill upon patient request if the prescription is for a schedule II opioid drug... Start Date: 07/30/21 Status: Ordered omeprazole 20 mg oral enteric coated capsule 1 capsule, By Mouth, Daily, # 90 capsule, 1 Refills, [facility] 27447, 160, cm, 03/30/21 10:47:00 EST, Height, 104.6, kg, 12/04/20 10:52:00 EDT, Dry Weight Start Date: 03/31/21 Status: Ordered ondansetron 4 mg oral tablet 1 tablet = 4 mg, By Mouth, Every 8 hours, PRN Nausea & Vomiting, # 30 tablet, 1 Refills, Maintenance, 08/12/21 13:26:00 EDT, [facility] #[id number], 153, cm, 08/10/21 11:19:00 EDT, Height, 105, kg, 05/31/21 15:15:00 EST, Dry Weight Start Date: 08/12/21 Status: Ordered oxybutynin 5 mg oral tablet 1 tablet, By Mouth, 3 times a day, # 270 tablet, 1 Refills, [facility] 62848, 153, cm, 08/10/21 11:19:00 EDT, Height, 105, [...] 0 Refills, Maintenance, 08/13/21 16:34:00 EDT, Tablet, [facility] #[id number], Partial fill upon patient request if the prescription is for a schedule II opioid drug., 153, cm, 08/10/21 11:19:00 ED... Start Date: 08/13/21 Status: Ordered traZODone 150 mg oral tablet 1.5 tablet = 225 mg, By Mouth, Daily at bedtime, # 135 tablet, 1 Refills, Maintenance, 07/30/21 12:25:00 EDT, Tablet, [facility] #[id number], Partial fill upon patient request if the [...] tablet, 1 Refills, Maintenance, 07/30/21 12:22:00 EDT, [facility] #[id number], Partial fill upon patient request if the [...]
--- OUTSIDE RECORDS SUMMARY | 2022-12-30 08:16 | XMS_ITS | Continuity of Care Document ---
Author Name Unknown Organization [facility] Address [address] [place] [address]- Care Team Providers Care Associate Store Director Name Role Phone Candis CARDENAS, Kaiden Villalta Primary Care Physician Encounter [facility] Date(s): 01/05/21 - 02/04/21 [facility] [address] [place], [place] [address] Allergies, Adverse Reactions, Alerts Substance Reaction Severity [...] 12/24/20 16:08:00 EDT, Route to Pharmacy Electronically, [facility]/pharmacy #[id number], Partial fill upon patient request if the prescription is for a schedule II... Start Date: 12/24/20 Status: Ordered baclofen 10 mg oral tablet 10 mg, 1, tablet, By Mouth, 3 times a day, PRN, # 30 tablet, Refills 0, Tot. Refills 0, Maintenance, Spasm, 01/31/19 21:47:23 EDT, Route to Pharmacy Electronically, [id number], [facility]/pharmacy #[id number] Start Date: 01/31/19 Stop Date: 02/14/19 Status: Ordered benzonatate 100 mg oral capsule 2 capsule, By Mouth, 3 times a day, PRN NEEDED FOR COUGH, # 30 capsule, 0 Refills, Physician Stop 03/06/21 13:27:00 EST, 02/03/21 13:26:00 EDT, [facility]/pharmacy #[id number], 160, cm, 12/04/20 10:52:00 EDT, Height, 104.6, kg, 12/04/20 10:52:00 EDT, Dry Weight Start Date: 02/03/21 Stop Date: 03/06/21 Status: Ordered clonazePAM 0.5 mg oral tablet 1 tablet = 0.5 mg, By Mouth, 4 times a day, PRN Anxiety, Patient on controlled substance contract. Please do NOT fill until 09/23/2020, # 112 tablet, 0 Refills, Maintenance, 11/18/20 21:02:00 EDT, Tablet, [facility]/pharmacy #[id number], Partial fill upon patient... Start Date: 11/18/20 Status: Ordered Famotidine 0 Refills, Maintenance, 04/07/19 16:11:00 EST Start Date: 04/07/19 Status: Ordered gabapentin 800 mg oral tablet 1 tablet = 800 mg, By Mouth, 4 times a day, # 360 tablet, 1 Refills, Maintenance, 11/09/20 23:47:00EDT, Tablet, [facility]/pharmacy #[id number], Partial fill upon patient request [...] 1 Refills, Maintenance, 11/05/20 11:43:00 EDT, Tablet, [facility]/pharmacy #[id number], Partial fill upon patient request if the prescription is for a schedule II opioid drug., 160, cm, 10/30/20 8:2... Start Date: 11/05/20 Status: Ordered meloxicam 15 mg oral tablet 1/2 TO 1 TABLET, By Mouth, Daily, PRN NEEDED FOR MODERATE PAIN, # 30 tablet, 1 Refills, [facility] 25567, 160, cm, 12/04/20 10:52:00 EDT, Height, 104.6, kg, 12/04/20 10:52:00 EDT, Dry Weight Start Date: 01/22/21 Status: Ordered omeprazole 20 mg oral enteric coated capsule 1 capsule, By Mouth, Daily, # 90 capsule, 0 Refills, Maintenance, 01/14/21 13:42:00 EDT, [facility]/pharmacy #[id number], 160, cm, 12/04/20 10:52:00 EDT, [...] 02/08/21 11:49:00 EDT, 01/25/21 11:49:00 EDT, Tablet, [facility]/pharmacy #[id number], Partial fill upon [...]
--- OUTSIDE RECORDS SUMMARY | 2022-12-30 08:16 | XMS_ITS | Continuity of Care Document ---
Author Name Unknown Organization [facility] Address [address] [place] [address]- Care Team Providers Care Recruit Instructor Name Role Phone Kaiden Chirinos MD Primary Care Physician Encounter [facility] [place] Date(s): 12/07/21 - 01/06/22 [facility] [address] [place], [place] [address] Allergies, Adverse Reactions, Alerts Substance [...] 8.5 Gm,0 Refills, Maintenance, 12/22/21 10:40:00 EDT, [facility] #[id number], 2 puffs Inhalation Every 4 hours,PRN: NEEDED FOR WHEEZING/cough/shortness... Start Date: 12/22/21 Status: Ordered albuterol 0.083% inhalation solution 3 mL = 2.5 mg, Inhalation, Every 4 hours, PRN for wheezing/cough/shortness of breath, # 25 each, 0 Refills, Maintenance, 10/14/21 22:10:00 EDT, Solution, [facility] #[id number], Partial fill upon patient request if the [...] tablet, 0 Refills, Maintenance, 12/27/21 13:43:00 EDT, [facility] #[id number], 153, cm, 10/08/21 13:23:00 EDT, Height, 113.9, kg, 10/08/21 13:23:00EDT, Dry Weight Start Date: 12/27/21 Status: Ordered clonazePAM 0.5 mg oral tablet 1 tablet = 0.5 mg, By Mouth, 4 times a day, PRN Anxiety, Patient on controlled substance contract. Please do NOT fill until 09/23/2020, # 112 tablet, 0 Refills, Maintenance, 11/18/20 21:02:00 EDT, Tablet, [facility]/pharmacy #[id number], Partial fill upon patient... Start Date: 11/18/20 Status: Ordered diclofenac 1% topical gel = 1 Gm, Topically, 4 times a day, FOR PAIN., # 100 Gm, 1 Refills, [id number], 30, APPLY 1 GM TOPICALLY 4 TIMES A DAY FOR PAIN, 153, cm, 06/07/21 11:07:00 EST, Height, 105, kg, 05/31/21 15:15:00 EST, Dry Weight Start Date: 08/05/21 Status: Ordered Dilaudid 2 mg oral tablet 1 tablet = 2 mg, By Mouth, 2 times a day, PRN Pain , Severe, checked masspat, # 28 tablet, 0 Refills, Maintenance, 01/05/22 10:35:00 EDT, Tablet, [facility] #[id number], Partial fill upon patient request if the prescription is for a schedule II o... Start Date: 01/05/22 Status: Ordered Estrace Vaginal Cream 0.1 mg/g = 2 Gm, Vaginally, Daily at bedtime, 2g PV daily at bedtime x 2 weeks, then 1g PV 1-3x per week, # 42.5 Gm, 5 Refills, Maintenance, 11/09/21 11:17:00 EDT, [facility] #[id number], Partial fill upon patient request if the prescription is for a sche... Start Date: 11/09/21 Status: Ordered estradiol 0.0375 mg/24 hours twice weekly transdermal film, extended release See Instructions, 1 patch Topically, change patch twice a week, # 1 pack/packet, 1 Refills, Maintenance, 12/07/21 10:42:00 EDT, [facility] #[id number], Partial fill upon patient request if the prescription is for a schedule II opioid drug., 153,... Start Date: 12/07/21 Status: Ordered gabapentin 800 mg oral tablet See Instructions, TAKE 1 TABLET BY MOUTH FOUR TIMES DAILY, # 360 tablet, 0 Refills, [facility] #[id number], 153, cm, 10/08/21 13:23:00 EDT, Height, 113.9, [...] capsule, 1 Refills, Maintenance, 12/08/21 10:10:00 EDT, [facility] #[id number], 153, cm, 10/08/21 13:23:00 EDT, Height, 113.9,kg, [...] tablet, 1 Refills, Maintenance, 07/30/21 12:25:00 EDT, [place], [facility] #[id number], Partial fill upon patient request if the prescription is for a schedule II opioid drug... Start Date: 07/30/21 Status: Ordered levothyroxine 0.1 mg oral tablet 1 tablet = 100 mcg, By Mouth, Daily, dose increase, # 90 tablet, 0 Refills, Maintenance, 11/01/21 16:08:00 EDT, [facility] #[id number], Please discontinue 88ug, 153, cm, 10/08/21 13:23:00 [...] tablet, 1 Refills, Maintenance, 11/30/21 15:44:00 EDT, [id number], [place]... Start Date: 11/30/21 Status: Ordered lidocaine 3% topical gel 1 application, Topically, 2 times a day, PRN as needed for pain, to replace 2% topical, # 28.5 Gm, 2 Refills, Acute 03/29/22 14:17:00 EST, 12/28/21 14:17:00 EDT, Gel, [facility] #[id number], Partial fill upon patient request if the prescription i... Start Date: 12/28/21 Stop Date: 03/29/22 Status: Ordered lidocaine 4% topical cream 1 application, Topically, 2 times a day, PRN Pain , Mild, # 30 Gm, 1 Refills, Acute 01/27/22 17:31:00 EDT, 12/28/21 17:31:00 EDT, Cream, [facility] #[id number], Partial fill upon patient requestif the prescription is for a schedule II opioid cedrick... Start Date: 12/28/21 Stop Date: 01/27/22 Status: Ordered meloxicam 15 mg oral tablet 1/2 TO 1 TABLET, By Mouth, Daily, PRN NEEDED FOR MODERATE PAIN, # 30 tablet, 1 Refills, :04:00 EDT, [facility] #[id number], 153, cm, 10/08/21 13:23:00 EDT, Height, 113.9, [...] 90 capsule, 0 Refills, 09/27/21 14:31:00 EDT, [facility] #[id number], 153, cm, 08/10/21 11:19:00 EDT, Height, 105, kg, 05/31/21 15:15:00 EST, Dry Weight Start Date: 09/27/21 Status: Ordered ondansetron 4 mg oral tablet 1 tablet = 4 mg, By Mouth, Every 8 hours, PRN Nausea & Vomiting, # 30 tablet, 1 Refills, Maintenance, 11/10/21 14:47:00 EDT, [facility] #[id number], 153, cm, 10/08/21 13:23:00 EDT, Height, 113.9, kg, 10/08/21 13:23:00 EDT, Dry Weight Start Date: 11/10/21 Status: Ordered oxybutynin 5 mg oral tablet 1 tablet, By Mouth, 3 times a day, # 270 tablet, 1 Refills, 01/05/22 9:12:00 EDT, [facility] #[id number], 153, cm, 01/04/22 13:15:00 EDT, Height, 113.9, kg, 10/08/21 13:23:00 EDT, Dry Weight Start Date: 01/05/22 Status: Ordered Rapid Antigen home covid swab [...] days, # 21 tablet, 0 Refills, Acute 01/11/22 13:32:00 EDT, 01/04/22 13:32:00 EDT, Tablet, [facility] #[id number], Partial fill upon patient request if the prescription is for a schedule II opioid . Start Date: 01/04/22 Stop Date: 01/11/22 Status: Ordered Problem List Condition Effective Dates [...] Personnel Name: Candis CARDENAS, Kaiden Villalta Address: [address] [place] [address] Adult & Pediatric [place], [place] [address]
--- OUTSIDE RECORDS SUMMARY | 2022-12-30 08:16 | XMS_ITS | Continuity of Care Document ---
Author Name Unknown Organization [facility] Address [address] [place] [address]- Care Team Providers Care Hatchery Supervisor Name Role Phone Candis CARDENAS, Kaiden Villalta Primary Care Physician [phone] Encounter [facility] [place] Date(s): 01/03/22 - 02/02/22 [facility] [address] [place], [place] [address] Allergies, Adverse Reactions, Alerts Substance [...] 8.5 Gm,0 Refills, Maintenance, 12/22/21 10:40:00 EDT, [facility] #[id number], 2 puffs Inhalation Every 4 hours,PRN: NEEDED FOR WHEEZING/cough/shortness... Start Date: 12/22/21 Status: Ordered albuterol 0.083% inhalation solution 3 mL = 2.5 mg, Inhalation, Every 4 hours, PRN for wheezing/cough/shortness of breath, # 25 each, 0 Refills, Maintenance, 10/14/21 22:10:00 EDT, Solution, [facility] #[id number], Partial fill upon patient request if the [...] tablet, 0 Refills, Maintenance, 12/27/21 13:43:00 EDT, [facility] #[id number], 153, cm, 10/08/21 13:23:00 EDT, Height, 113.9, kg, 10/08/21 13:23:00EDT, Dry Weight Start Date: 12/27/21 Status: Ordered clonazePAM 0.5 mg oral tablet 1 tablet = 0.5 mg, By Mouth, 4 times a day, PRN Anxiety, Patient on controlled substance contract. Please do NOT fill until 09/23/2020, # 112 tablet, 0 Refills, Maintenance, 11/18/20 21:02:00 EDT, Tablet, [facility]/pharmacy #[id number], Partial fill upon patient... Start Date: 11/18/20 Status: Ordered diclofenac 1% topical gel = 1 Gm, Topically, 4 times a day, FOR PAIN., # 100 Gm, 1 Refills, [facility], 30, APPLY 1 GM TOPICALLY 4 TIMES A DAY FOR PAIN, 153, cm, 06/07/21 11:07:00 EST, Height, 105, kg, 05/31/21 15:15:00 EST, Dry Weight Start Date: 08/05/21 Status: Ordered Dilaudid 2 mg oral tablet 1 tablet = 2 mg, By Mouth, 2 times a day, PRN Pain , Severe, checked masspat, # 28 tablet, 0 Refills, Maintenance, 01/18/22 17:28:00 EDT, Tablet, [facility] #[id number], Partial fill upon patient request if the prescription is for a schedule II o... Start Date: 01/18/22 Status: Ordered Estrace Vaginal Cream 0.1 mg/g = 2 Gm, Vaginally, Daily at bedtime, 2g PV daily at bedtime x 2 weeks, then 1g PV 1-3x per week, # 42.5 Gm, 5 Refills, Maintenance, 11/09/21 11:17:00 EDT, [facility] #[id number], Partial fill upon patient request if the prescription is for a sche... Start Date: 11/09/21 Status: Ordered Estradiol Patch 0.0375 mg/24 hours twice weekly transdermal film, extended release See Instructions, APPLY 1 PATCH TOPICALLY TWICE WEEKLY DIRECTED, # 8 patch, 0 Refills, Maintenance, 02/01/22 11:03:00 EDT, [facility] #[id number], 28, APPLY 1 PATCH TOPICALLY TWICE WEEKLY DIRECTED, 153, cm, 01/04/22 13:15:00 EDT, Height, 11... Start Date: 02/01/22 Status: Ordered gabapentin 800 mg oral tablet See Instructions, TAKE 1 TABLET BY MOUTH FOUR TIMES DAILY, # 360 tablet, 0 Refills, [facility] #[id number], 153, cm, 10/08/21 13:23:00 EDT, Height, 113.9, [...] capsule, 1 Refills, Maintenance, 12/08/21 10:10:00 EDT, [facility] #[id number], 153, cm, 10/08/21 13:23:00 EDT, Height, 113.9,kg, [...] 1 Refills, Maintenance, 11/30/21 15:44:00 EDT, Tablet, [facility] #[id number], [place]... Start Date: 11/30/21 Status: Ordered levothyroxine 0.112 mg oral tablet 1 tablet, By Mouth, Daily, AVOID ANTACIDS, CALCIUM, OR IRON FOR AT LEAST 4 HOURS BEFORE OR 4 HOURS AFTER; ON AN ON AN EMPTY STOMACH, # 90 tablet, 0 Refills, Maintenance, 01/20/22 17:46:00 EDT, [facility] #[id number], 153, cm, 01/04/22 13:15:00 ED... Start Date: 01/20/22 Status: Ordered lidocaine 3% topical gel 1 application, Topically, 2 times a day, PRN as needed for pain, to replace 2% topical, # 28.5 Gm, 2 Refills, Acute 03/29/22 14:17:00 EST, 12/28/21 14:17:00 EDT, Gel, [facility] #[id number], Partial fill upon patient request if the prescription i... Start Date: 12/28/21 Stop Date: 03/29/22 Status: Ordered meloxicam 15 mg oral tablet 1/2 TO 1 TABLET, By Mouth, Daily, PRN NEEDED FOR MODERATE PAIN, # 30 tablet, 5 Refills, Maintenance, 01/10/22 20:40:00 EDT, [facility] #[id number], 153, cm, 01/04/22 13:15:00 EDT, Height, 113.9, [...] capsule, 0 Refills, Maintenance, 01/16/22 8:28:00 EDT, [facility] #[id number], 153, cm, 01/04/22 13:15:00 EDT, Height, 113.9, kg, 10/08/21 13:23:00 EDT, Dry Weight Start Date: 01/16/22 Status: Ordered ondansetron 4 mg oral tablet 1 tablet = 4 mg, By Mouth, Every 8 hours, PRN Nausea & Vomiting, # 30 tablet, 1 Refills, Maintenance, 11/10/21 14:47:00 EDT, [facility] #[id number], 153, cm, 10/08/21 13:23:00 EDT, Height, 113.9, kg, 10/08/21 13:23:00 EDT, Dry Weight Start Date: 11/10/21 Status: Ordered oxybutynin 5 mg oral tablet 1 tablet, By Mouth, 3 times a day, # 270 tablet, 1 Refills, 01/10/22 10:29:00 EDT, [facility] #[id number], 153, cm, 01/04/22 13:15:00 EDT, Height, 113.9, [...] Name: Candis CARDENAS, Kaiden Villalta Address: Address: [address] [place] [address] Adult & Pediatric Medicine [place], [place] [address]
--- OUTSIDE RECORDS SUMMARY | 2022-12-30 08:17 | XMS_ITS | Continuity of Care Document ---
Author Name Unknown Organization [facility] Address [address] [place] [address]- Care Team Providers Care Support Dba Name Role Phone Candis CARDENAS, Kaiden Villalta Primary Care Physician [phone] Encounter [facility] [place] Date(s): 06/28/21 - 07/28/21 [facility] [address] [place], [place] [address] [...] # 8.5 each, 0 Refills, [id number], 20, INHALE 2 PUFFS BY MOUTH EVERY 4 HOURS NEEDED FOR WHEEZING, 160, cm, 03/30/21 10:47:00 EST, Height, 104.6, kg, 12/04/20 10:52:00 EDT, Dry Weight Start Date: 04/28/21 Status: Ordered amitriptyline 10 mg oral tablet 10 mg, 1, tablet, By Mouth, Daily at bedtime, # 90 tablet, Refills 1, Tot. Refills 1, Maintenance, 12/24/20 16:08:00 EDT, Route to Pharmacy Electronically, [facility]/pharmacy #[id number], Partial fill upon patient request if the prescription is for a schedule II... Start Date: 12/24/20 Status: Ordered baclofen 10 mg oral tablet 10 mg, 1, tablet, By Mouth, 3 times a day, PRN, # 30 tablet, Refills 0, Tot. Refills 0, Maintenance, Spasm, 01/31/19 21:47:23 EDT, Route to Pharmacy Electronically, [id number], [facility]/pharmacy #[id number] Start Date: 01/31/19 Stop Date: 02/14/19 Status: Ordered benzonatate 100 mg oral capsule 2 capsule, By Mouth, 3 times a day, PRN NEEDED FOR COUGH, # 30 capsule, 1 Refills, Physician Stop 03/19/22 17:38:00 EST, 02/19/22 16:55:00 EDT, [facility]/pharmacy #[id number], 160, cm, 12/04/20 10:52:00 EDT, Height, 104.6, kg, 12/04/20 10:52:00 EDT, Dry Weight Start Date: 02/19/22 Stop Date: 03/19/22 Status: Ordered benzonatate 100 mg oral capsule 2 capsule, By Mouth, 3 times a day, PRN NEEDED FOR COUGH, # 30 capsule, 1 Refills, Physician Stop 02/19/22 16:55:00 EDT, 02/19/21 16:54:00 EDT, [facility]/pharmacy #[id number], 160, cm, 12/04/20 10:52:00 EDT, Height, 104.6, kg, 12/04/20 10:52:00 EDT, Dry Weight Start Date: 02/19/21 Stop Date: 02/19/22 Status: Ordered clonazePAM 0.5 mg oral tablet 1 tablet = 0.5 mg, By Mouth, 4 times a day, PRN Anxiety, Patient on controlled substance contract. Please do NOT fill until 09/23/2020, # 112 tablet, 0 Refills, Maintenance, 11/18/20 21:02:00 EDT, Tablet, [facility]/pharmacy #[id number], Partial fill upon patient... Start Date: 11/18/20 Status: Ordered Dilaudid 2 mg oral tablet 1 tablet = 2 mg, By Mouth, 2 times a day, PRN Pain , Severe, # 28 tablet, 0 Refills, Maintenance, 07/21/21 12:23:00 EDT, Tablet, [facility] #[id number], Partial fill upon patient request if the prescription is for a schedule II opioid drug., 153,... Start Date: 07/21/21 Status: Ordered Famotidine 0 Refills, Maintenance, 04/07/19 16:11:00 EST Start Date: 04/07/19 Status: Ordered gabapentin 800 mg oral tablet 1 tablet, By Mouth, 4 times a day, # 360 tablet, 1 Refills, [facility], 160, cm, 03/30/21 10:47:00 EST, Height, 104.6, [...] 1 Refills, Maintenance, 06/07/21 19:08:00 EST, Capsule, [facility]/pharmacy #[id number], Partial fill upon patient request if the [...] 1 Refills, Maintenance, 05/14/21 15:23:00 EST, Tablet, [facility]/pharmacy #[id number], Partial fill upon patient request if the prescription is for a schedule II opioid drug., 160, c... Start Date: 05/14/21 Status: Ordered omeprazole 20 mg oral enteric coated capsule 1 capsule, By Mouth, Daily, # 90 capsule, 1 Refills, [facility], 160, cm, 03/30/21 10:47:00 EST, Height, 104.6, [...]
--- OUTSIDE RECORDS SUMMARY | 2022-12-30 08:17 | XMS_ITS | Continuity of Care Document ---
Author Name Unknown Organization [facility] Address [address] [address]- Care Team Providers Care Carton Wrapper Name Role Phone Candis CARDENAS, Kaiden Villalta Primary Care Physician [phone] Encounter [facility] [place] Date(s): 11/10/21 - 12/10/21 [facility] [address] [place] [address]- Allergies, Adverse Reactions, Alerts Substance Reaction Severity [...] 8.5 Gm,0 Refills, Maintenance, 12/08/21 20:52:00 EDT, [facility] #[id number], 2 puffs Inhalation Every 4 hours,PRN: NEEDED FOR WHEEZING/cough/shortness... Start Date: 12/08/21 Status: Ordered albuterol 0.083% inhalation solution 3 mL = 2.5 mg, Inhalation, Every 4 hours, PRN for wheezing/cough/shortness of breath, # 25 each, 0 Refills, Maintenance, 10/14/21 22:10:00 EDT, Solution, [facility] #[id number], Partial fill upon patient request if the prescription is for a sched... Start Date: 10/14/21 Status: Ordered benzonatate 100 mg oral capsule 2 capsule, By Mouth, 3 times a day, PRN NEEDED FOR COUGH, # 30 capsule, 1 Refills, Physician Stop 11/10/22 14:46:00 EDT, 03/19/22 17:38:00 EST, [facility] #[id number], 153, cm, 10/08/21 13:23:00 EDT, Height, 113.9, kg, 10/08/21 13:23:00 EDT, D... Start Date: 03/19/22 Stop Date: 11/10/22 Status: Ordered benzonatate 100 mg oral capsule 2 capsule, By Mouth, 3 times a day, PRN NEEDED FOR COUGH, # 30 capsule, 1 Refills, Physician Stop 12/10/22 15:43:00 EDT, 11/10/22 14:46:00 EDT, [facility] #[id number], 153, cm, 10/08/21 13:23:00 EDT, Height, 113.9, [...] 0 Refills, Maintenance, 11/18/20 21:02:00 EDT, Tablet, [facility]/pharmacy #[id number], Partial fill upon patient... Start Date: 11/18/20 Status: Ordered diclofenac 1% topical gel = 1 Gm, Topically, 4 times a day, FOR PAIN., # 100 Gm, 1 Refills, [facility], 30, APPLY 1 GM TOPICALLY 4 TIMES A DAY FOR PAIN, 153, cm, 06/07/21 11:07:00 EST, Height, 105, kg, 05/31/21 15:15:00 EST, Dry Weight Start Date: 08/05/21 Status: Ordered Dilaudid 2 mg oral tablet 1 tablet = 2 mg, By Mouth, 2 times a day, PRN Pain , Severe, checked masspat, # 28 tablet, 0 Refills, Maintenance, 12/07/21 13:30:00 EDT, Tablet, [facility] #[id number], Partial fill upon patient request if the prescription is for a schedule II o... Start Date: 12/07/21 Status: Ordered Estrace Vaginal Cream 0.1 mg/g = 2 Gm, Vaginally, Daily at bedtime, 2g PV daily at bedtime x 2 weeks, then 1g PV 1-3x per week, # 42.5 Gm, 5 Refills, Maintenance, 11/09/21 11:17:00 EDT, [facility] #[id number], Partial fill upon patient request if the prescription is for a sche... Start Date: 11/09/21 Status: Ordered estradiol 0.0375 mg/24 hours twice weekly transdermal film, extended release See Instructions, 1 patch Topically, change patch twice a week, # 1 pack/packet, 1 Refills, Maintenance, 12/07/21 10:42:00 EDT, [facility] #[id number], Partial fill upon patient request if the prescription is for a schedule II opioid drug., 153,... Start Date: 12/07/21 Status: Ordered gabapentin 800 mg oral tablet See Instructions, TAKE 1 TABLET BY MOUTH FOUR TIMES DAILY, # 360 tablet, 0 Refills, [facility] #[id number], 153, cm, 10/08/21 13:23:00 EDT, Height, 113.9, [...] capsule, 1 Refills, Maintenance, 12/08/21 10:10:00 EDT, [facility] #[id number], 153, cm, 10/08/21 13:23:00 EDT, Height, 113.9,kg, [...] 1 Refills, Maintenance, 07/30/21 12:25:00 EDT, Tablet, [facility] #[id number], Partial fill upon patient request if the prescription is for a schedule II opioid drug... Start Date: 07/30/21 Status: Ordered levothyroxine 0.1 mg oral tablet 1 tablet = 100 mcg, By Mouth, Daily, dose increase, # 90 tablet, 0 Refills, Maintenance, 11/01/21 16:08:00 EDT, [facility] #[id number], Please discontinue 88ug, 153, cm, 10/08/21 13:23:00 [...] 1 Refills, Maintenance, 11/30/21 15:44:00 EDT, Tablet, [facility] #[id number], [place]... Start Date: 11/30/21 Status: Ordered lidocaine 2% topical gel with applicator 5 mL = 0.1 Gm, Topically, 2 times a day, PRN Pain , Moderate, # 60 mL, 2 Refills, Soft Stop, 09/24/21 16:43:00 EDT, Gel, [facility] #[id number], Partial fill upon patient request if the prescription is for a schedule II opioid drug., 153, cm, ... Start Date: 09/24/21 Status: Ordered meloxicam 15 mg oral tablet 1/2 TO 1 TABLET, By Mouth, Daily, PRN NEEDED FOR MODERATE PAIN, # 30 tablet, 1 Refills, 229:04:00 EDT, [facility] #[id number], 153, cm, 10/08/21 13:23:00 EDT, Height, 113.9, [...] 90 capsule, 0 Refills, 09/27/21 14:31:00 EDT, [facility] #[id number], 153, cm, 08/10/21 11:19:00 EDT, Height, 105, kg, 05/31/21 15:15:00 EST, Dry Weight Start Date: 09/27/21 Status: Ordered ondansetron 4 mg oral tablet 1 tablet = 4 mg, By Mouth, Every 8 hours, PRN Nausea & Vomiting, # 30 tablet, 1 Refills, Maintenance, 11/10/21 14:47:00 EDT, [id number], 153, cm, 10/08/21 13:23:00 EDT, Height, 113.9, kg, 10/08/21 13:23:00 EDT, Dry Weight Start Date: 11/10/21 Status: Ordered oxybutynin 5 mg oral tablet 1 tablet, By Mouth, 3 times a day, # 270 tablet, 1 Refills, [facility] 117[facility], 153, cm, 08/10/21 11:19:00 EDT, Height, 105, kg, 05/31/21 15:15:00 EST, Dry Weight Start Date: 09/09/21 Status: Ordered Paxlovid 150 mg-100 mg (150 mg-100 mg Dose) oral tablet See Instructions, 2 tabs nirmatrelvir PO and 1 tab ritonavir PO twice daily for 5 days, # 30 tablet, 0 Refills, Acute 12/15/21 15:37:00 EDT, 12/10/21 15:36:00 EDT, [facility] #[id number], Partial fill upon patient request if the prescription is f... Start Date: 12/10/21 Stop Date: 12/15/21 Status: Ordered Rapid Antigen home covid swab [...] Sex Care Team Personnel Name: Candis CARDENAS, Kaidne Villalta Address: [address] [place] [address] Adult & Pediatric Medicine [place], [place] [address]
--- OUTSIDE RECORDS SUMMARY | 2022-12-30 08:17 | XMS_ITS | Continuity of Care Document ---
Author Name Unknown Organization [facility] Address [address] [place] [address]- Care Team Providers Care Recreation Programmer Name Role Phone Kaiden Chirinos MD Primary Care Physician [phone] [place] [facility] [place] Date(s): 10/13/21 - 11/12/21 [facility] [address] [place], [place] [address] Allergies, Adverse Reactions, Alerts [...] 8.5 Gm,0 Refills, Maintenance, 09/28/21 16:57:00 EDT, [facility] #[id number], 2 puffs Inhalation Every 4 hours,PRN: NEEDED FOR WHEEZING/cough/shortness... Start Date: 09/28/21 Status: Ordered albuterol 0.083% inhalation solution 3 mL = 2.5 mg, Inhalation, Every 4 hours, PRN for wheezing/cough/shortness of breath, # 25 each, 0 Refills, Maintenance, 10/14/21 22:10:00 EDT, Solution, [facility] #[id number], Partial fill upon patient request if the prescription is for a sched... Start Date: 10/14/21 Status: Ordered benzonatate 100 mg oral capsule 2 capsule, By Mouth, 3 times a day, PRN NEEDED FOR COUGH, # 30 capsule, 1 Refills, Physician Stop 11/10/22 14:46:00 EDT, 03/19/22 17:38:00 EST, [facility] #[id number], 153, cm, 10/08/21 13:23:00 EDT, Height, 113.9, kg, 10/08/21 13:23:00 EDT, D... Start Date: 03/19/22 Stop Date: 11/10/22 Status: Ordered budesonide 1 mg/2 mL inhalation suspension 2 mL = 1 mg, Neb, 2 times a day, rinse mouth out after use, # 120 mL, 1 Refills, Maintenance, 10/25/21 18:30:00 EDT, Suspension, [facility] #[id number], Partial fill upon patient request if the [...] Refills, Maintenance, 11/18/20 21:02:00 EDT, Tablet, [facility]/pharmacy #[id number], Partial fill upon patient... Start Date: 11/18/20 Status: Ordered diclofenac 1% topical gel = 1 Gm, Topically, 4 times a day, FOR PAIN., # 100 Gm, 1 Refills, [id number], 30, APPLY 1 GM TOPICALLY 4 TIMES A DAY FOR PAIN, 153, cm, 02/21/22 11:07:00 EST, Height, 105, kg, 05/31/21 15:15:00 EST, Dry Weight Start Date: 08/05/21 Status: Ordered Dilaudid 2 mg oral tablet 1 tablet = 2 mg, By Mouth, 2 times a day, PRN Pain , Severe, checked masspat, # 28 tablet, 0 Refills, Maintenance, 11/10/21 14:47:00 EDT, Tablet, [facility] #[id number], Partial fill upon patient request if the prescription is for a schedule II o... Start Date: 11/10/21 Status: Ordered Estrace Vaginal Cream 0.1 mg/g = 2 Gm, Vaginally, Daily at bedtime, 2g PV daily at bedtime x 2 weeks, then 1g PV 1-3x per week, # 42.5 Gm, 5 Refills, Maintenance, 11/09/21 11:17:00 EDT, [facility] #[id number], Partial fill upon patient request if the prescription is for a sche... Start Date: 11/09/21 Status: Ordered gabapentin 800 mg oral tablet See Instructions, TAKE 1 TABLET BY MOUTH FOUR TIMES DAILY, # 360 tablet, 0 Refills, [facility] #[id number], 153, cm, 10/08/21 13:23:00 EDT, Height, 113.9, [...] capsule, 1 Refills, Maintenance, 09/28/21 16:58:00 EDT, [facility] #[id number], 153, cm, 08/10/21 11:19:00 EDT, Height, 105, [...] 1 Refills, Maintenance, 07/30/21 12:25:00 EDT, Tablet, [facility] #[id number], Partial fill upon patient request if the prescription is for a schedule II opioid drug... Start Date: 07/30/21 Status: Ordered levothyroxine 0.1 mg oral tablet 1 tablet = 100 mcg, By Mouth, Daily, dose increase, # 90 tablet, 0 Refills, Maintenance, 11/01/21 16:08:00 EDT, [facility] #[id number], Please discontinue 88ug, 153, cm, 10/08/21 13:23:00 EDT, Height, 113.9, kg, 10/08/21 13:23:00 EDT, Dry Weight Start Date: 11/01/21 Status: Ordered lidocaine 2% topical gel with applicator 5 mL = 0.1 Gm, Topically, 2 times a day, PRN Pain , Moderate, # 60 mL, 2 Refills, Soft Stop, 09/24/21 16:43:00 EDT, Gel, [facility] #[id number], Partial fill upon patient request if the [...] 90 capsule, 0 Refills, 09/27/21 14:31:00 EDT, [facility] #[id number], 153, cm, 08/10/21 11:19:00 EDT, Height, 105, kg, 05/31/21 15:15:00 EST, Dry Weight Start Date: 09/27/21 Status: Ordered ondansetron 4 mg oral tablet 1 tablet = 4 mg, By Mouth, Every 8 hours, PRN Nausea & Vomiting, # 30 tablet, 1 Refills, Maintenance, 11/10/21 14:47:00 EDT, [facility] #[id number], 153, cm, 10/08/21 13:23:00 EDT, Height, 113.9, kg, 10/08/21 13:23:00 EDT, Dry Weight Start Date: 11/10/21 Status: Ordered oxybutynin 5 mg oral tablet 1 tablet, By Mouth, 3 times a day, # 270 tablet, 1 Refills, [id number], 153, cm, 08/10/21 11:19:00 EDT, Height, 105, [...] 1 Refills, Maintenance, 07/30/21 12:22:00 EDT, Tablet, [facility] #[id number], Partial fill upon patient request if the [...]
--- OUTSIDE RECORDS SUMMARY | 2022-12-30 08:17 | XMS_ITS | Continuity of Care Document ---
Author Name Unknown Organization [facility] Address [address] [place] [address]- Care Team Providers Care Slip Mixer Name Role Phone Kaiden Chirinos MD Primary Care Physician [place] [facility] [place]s): 11/09/20 - 12/09/20 [facility] [address] [place], [place] [address] Allergies, Adverse [...] 16:39:00 EDT, Route to Pharmacy Electronically, [facility]/pharmacy #[id number], Partial fill upon patient request if the prescription is for a schedule II... Start Date: 09/22/20 Status: Ordered baclofen 10 mg oral tablet 10 mg, 1, tablet, By Mouth, 3 times a day, PRN, # 30 tablet, Refills 0, Tot. Refills 0, Maintenance, Spasm, 01/31/19 21:47:23 EDT, Route to Pharmacy Electronically, [id number], [facility]/pharmacy #[id number] Start Date: 01/31/19 Stop Date: 02/14/19 [...] tablet, 1 Refills, Maintenance, 11/09/20 23:47:00EDT, Tablet, [facility]/pharmacy #[id number], Partial fill upon patient request if [...] 1 Refills, Maintenance, 11/05/20 11:43:00 EDT, Tablet, [facility]/pharmacy #[id number], Partial fill upon patient request if the prescription is for a schedule II opioid drug., 160, cm, 10/30/20 8:2... Start Date: 11/05/20 Status: Ordered meloxicam 15 mg oral tablet See Instructions, PRN Pain , Moderate, 0.5 to1 tab PO daily with food, # 30 capsule, 1 Refills, Maintenance, 12/04/20 11:27:00 EDT, Tablet, [facility]/pharmacy #[id number], Partial fill upon patient request if [...] Refills, Maintenance, 11/27/20 17:20:00 EDT, [id number], 160, cm, 10/30/20 8:28:00 EDT, Height, 105.5, kg, 10/30/20 8:28:00 EDT, Dry Weight Start Date: 11/27/20 Status: Ordered ProAir HFA 90 mcg/inh inhalation aerosol 2 puffs, Inhalation, Every 4 hours, PRN as needed for wheezing, # 8.5 Gm, 0 Refills, Maintenance, 11/16/20 8:39:00 EDT, Aerosol, [facility]/pharmacy #[id number], Partial fill upon patient request if [...] 1 Refills, Maintenance, 10/30/20 8:45:00 EDT, Tablet, [facility]/pharmacy #[id number], Partial fill upon patient reques... Start Date: 10/30/20 Status: Ordered traZODone 150 mg oral tablet 1 tablet = 150 mg, By Mouth, Daily at bedtime, dose increase, # 90 tablet, 1 Refills, Maintenance, 11/03/20 13:28:00 EDT, Tablet, [facility]/pharmacy #[id number], Partial fill upon patient request if [...]
--- OUTSIDE RECORDS SUMMARY | 2022-12-30 08:17 | XMS_ITS | Continuity of Care Document ---
Author Name Unknown Organization [facility] Address [address] [place] [address]- Care Team Providers Care Talend Etl Developer Name Role Phone Candis CARDENAS, Kaiden Villalta Primary Care Physician [place] [facility] [place] [id number] Date(s): 03/01/22 - 03/31/22 [facility] [address] [place], [place] [address] Allergies, Adverse Reactions, Alerts Substance Reaction Severity [...] 8.5 Gm,0 Refills, Maintenance, 12/22/21 10:40:00 EDT, [facility] #[id number], 2 puffs Inhalation Every 4 hours,PRN: NEEDED FOR WHEEZING/cough/shortness... Start Date: 12/22/21 Status: Ordered albuterol 0.083% inhalation solution 3 mL = 2.5 mg, Inhalation, Every 4 hours, PRN for wheezing/cough/shortness of breath, # 25 each, 0 Refills, Maintenance, 10/14/21 22:10:00 EDT, Solution, [facility] #[id number], Partial fill upon patient request if the prescription is for a sched... Start Date: 10/14/21 Status: Ordered [place] Saline Mist 0.65% nasal spray 2 sprays, Nares, Both, 4 times a day, # 1 each, 0 Refills, Maintenance, 02/04/22 13:32:00 EDT, [facility] #[id number], Partial fill upon patient request if the [...] tablet, 0 Refills, Maintenance, 12/27/21 13:43:00 EDT, [facility] #[id number], 153, cm, 10/08/21 13:23:00 EDT, Height, 113.9, [...] # 100 Gm, 1 Refills, [facility], 30, APPLY 1 GM TOPICALLY 4 TIMES A DAY FOR PAIN, 153, cm, 06/07/21 11:07:00 EST, Height, 105, kg, 05/31/21 15:15:00 EST, Dry Weight Start Date: 08/05/21 Status: Ordered Dilaudid 2 mg oral tablet 1 tablet = 2 mg, By Mouth, 2 times a day, PRN Pain , Severe, checked masspat, # 28 tablet, 0 Refills, Maintenance, 03/23/22 22:13:00 EST, Tablet, [facility] #[id number], Partial fill upon patient request if the prescription is for a schedule II o... Start Date: 03/23/22 Status: Ordered Estrace Vaginal Cream 0.1 mg/g = 2 Gm, Vaginally, Daily at bedtime, 2g PV daily at bedtime x 2 weeks, then 1g PV 1-3x per week, # 42.5 Gm, 5 Refills, Maintenance, 11/09/21 11:17:00 EDT, [facility] #[id number], Partial fill upon patient request if the prescription is for a sche... Start Date: 11/09/21 Status: Ordered Estradiol Patch 0.0375 mg/24 hours twice weekly transdermal film, extended release See Instructions, APPLY 1 PATCH TOPICALLY TWICE WEEKLY DIRECTED, # 8 patch, 6 Refills, Maintenance, 03/23/22 16:10:00 EST, [facility] #[id number], 28, APPLY 1 PATCH TOPICALLY TWICE WEEKLY DIRECTED, 153, cm, 01/04/22 13:15:00 EDT, Height, 11... Start Date: 03/23/22 Status: Ordered fluconazole 150 mg oral tablet 1 tablet = 150 mg, By Mouth, Once, PRN vaginal yeast infection, # 1 tablet, 0 Refills, Soft Stop, 03/15/22 10:42:00 EST, Tablet, [facility] #[id number], Partial fill upon patient request if the prescription is for a schedule II opioid drug., 153,... Start Date: 03/15/22 Status: Ordered gabapentin 800 mg oral tablet See Instructions, TAKE 1 TABLET BY MOUTH FOUR TIMES DAILY, # 360 tablet, 0 Refills, [facility] #[id number], 153, cm, 10/08/21 13:23:00 EDT, Height, 113.9, [...] capsule, 1 Refills, Maintenance, 12/08/21 10:10:00 EDT, [facility] #[id number], 153, cm, 10/08/21 13:23:00 EDT, Height, 113.9,kg, [...] 1 Refills, Maintenance, 03/14/22 15:04:00 EST, Tablet, [facility] #[id number], Partial fill upon patient request if the prescription is for a schedule II opioid drug., 153, cm... Start Date: 03/14/22 Status: Ordered meloxicam 15 mg oral tablet 1/2 TO 1 TABLET, By Mouth, Daily, PRN NEEDED FOR MODERATE PAIN, # 30 tablet, 5 Refills, Maintenance, 01/10/22 20:40:00 EDT, [facility] #[id number], 153, cm, 01/04/22 13:15:00 EDT, Height, 113.9, [...] capsule, 0 Refills, Maintenance, 01/16/22 8:28:00 EDT, [facility] #[id number], 153, cm, 01/04/22 13:15:00 EDT, Height, 113.9, kg, 10/08/21 13:23:00 EDT, Dry Weight Start Date: 01/16/22 Status: Ordered ondansetron 4 mg oral tablet 1 tablet, By Mouth, Every 8 hours, PRN NEEDED FOR NAUSEA OR VOMITING, # 30 tablet, 0 Refills, Maintenance, 03/01/22 11:29:00 EST, [facility] #[id number], 153, cm, 01/04/22 13:15:00 EDT, Height, 113.9, kg, 10/08/21 13:23:00 EDT, Dry Weight Start Date: 03/01/22 Status: Ordered oxybutynin 5 mg oral tablet 1 tablet, By Mouth, 3 times a day, # 270 tablet, 1 Refills, 01/10/22 10:29:00 EDT, [facility] #[id number], 153, cm, 01/04/22 13:15:00 EDT, Height, 113.9, [...] 03/14/22 15:10:00 EST, Route to Pharmacy Electronically, [facility] #[id number], Partial fill upon patient request if the... [...] Care Physician Member Role: PCP Address: Address: [address] [place] [address] Adult [facility] [place] [address]- Care Team Related Persons Name: RODOLFO SHEIKH Address: home [address] [facility] [address] [place] [id number] Name: CHIARA TEE Address: home [address] [place] [address] [address] [place] [id number]
--- OUTSIDE RECORDS SUMMARY | 2022-12-30 08:17 | XMS_ITS | Continuity of Care Document ---
Author Name Unknown Organization [facility] Address [address] [place] [address]- Care Team Providers Care It Systems Engineer Name Role Phone Candis CARDENAS, Kaiden Villalta Primary Care Physician Encounter [place] Date(s): 03/19/21 - 04/18/21 [facility] [address] [place], [place] [address] Allergies, Adverse Reactions, [...] to Pharmacy Electronically, [facility]/pharmacy #[id number], Partial fill upon patient request if the prescription is for a schedule II... Start Date: 12/24/20 Status: Ordered baclofen 10 mg oral tablet 10 mg, 1, tablet, By Mouth, 3 times a day, PRN, # 30 tablet, Refills 0, Tot. Refills 0, Maintenance, Spasm, 01/31/19 21:47:23 EDT, Route to Pharmacy Electronically, [id number], [facility]/pharmacy #[id number] Start Date: [...] # 360 tablet, 1 Refills, [facility], 160, cm, 03/30/21 10:47:00 EST, Height, 104.6, [...] 1 Refills, Maintenance, 02/25/21 8:28:00 EST, Capsule, [facility]/pharmacy #[id number], [...] before breakfast, # 90 tablet, 0 Refills, [facility] 84986, 160, cm, 03/30/21 10:47:00 EST, Height, 104.6, kg, 12/04/20 10:52:00 EDT, Dry Weight Start Date: 04/15/21 Status: Ordered meloxicam 15 mg oral tablet 1/2 TO 1 TABLET, By Mouth, Daily, PRN NEEDED FOR MODERATE PAIN, # 30 tablet, 1 Refills, [facility], 160, cm, 12/04/20 10:52:00 EDT, Height, 104.6, kg, 12/04/20 10:52:00 EDT, Dry Weight Start Date: 01/22/21 Status: Ordered omeprazole 20 mg oral enteric coated capsule 1 capsule, By Mouth, Daily, # 90 capsule, 1 Refills, [facility], 160, cm, 03/30/21 10:47:00 EST, Height, 104.6, kg, 12/04/20 10:52:00 EDT, Dry Weight Start Date: 03/31/21 Status: Ordered ondansetron 4 mg oral tablet See Instructions, TAKE 1 TABLET BY MOUTH EVERY 8 HOURS NEEDED FOR NAUSEA AND VOMITING, # 15 tablet, 1 Refills, Physician Stop 04/19/21 17:37:00 EST, 03/19/21 17:37:00 EST, [facility]/pharmacy #[id number], 160,cm, 12/04/20 10:52:00 EDT, Height, [...] 0 Refills, Maintenance, 11/16/20 8:39:00 EDT, Aerosol, [facility]/pharmacy #[id number], Partial fill upon patient request if the prescription is for a schedule II opioid drug., 2 puffs Inhal... Start Date: 11/16/20 Status: Ordered Qvar Redihaler 40 mcg/inh inhalation aerosol = 40 mcg, Inhalation, 2 times a day, to replace flovent rinse mouth and throat after use, # 1 each,1 Refills, Maintenance, 03/30/21 20:35:00 EST, [facility]/pharmacy #[id number], Partial fill [...] 1 Refills, Maintenance, 04/06/21 12:26:00 EST, Tablet, [facility]/pharmacy #[id number], [...]
--- OUTSIDE RECORDS SUMMARY | 2022-12-30 08:17 | XMS_ITS | Continuity of Care Document ---
Author Name Unknown Organization [facility] Address [address] [place] [address]- Care Team Providers Care Program Schedule Clerk Name Role Phone Kaiden Chirinos MD Primary Care Physician Encounter [facility] [place] Date(s): 10/11/21 - 11/10/21 [facility] [address] [place], [place] [address] Allergies, Adverse Reactions, Alerts Substance Reaction [...] 8.5 Gm,0 Refills, Maintenance, 09/28/21 16:57:00 EDT, [facility] #[id number], 2 puffs Inhalation Every 4 hours,PRN: NEEDED FOR WHEEZING/cough/shortness... Start Date: 09/28/21 Status: Ordered albuterol 0.083% inhalation solution 3 mL = 2.5 mg, Inhalation, Every 4 hours, PRN for wheezing/cough/shortness of breath, # 25 each, 0 Refills, Maintenance, 10/14/21 22:10:00 EDT, Solution, [facility] #[id number], Partial fill upon patient request if the prescription is for a sched... Start Date: 10/14/21 Status: Ordered benzonatate 100 mg oral capsule 2 capsule, By Mouth, 3 times a day, PRN NEEDED FOR COUGH, # 30 capsule, 1 Refills, Physician Stop 11/10/22 14:46:00 EDT, 03/19/22 17:38:00 EST, [facility] #[id number], 153, cm, 10/08/21 13:23:00 EDT, Height, 113.9, kg, 10/08/21 13:23:00 EDT, D... Start Date: 03/19/22 Stop Date: 11/10/22 Status: Ordered budesonide 1 mg/2 mL inhalation suspension 2 mL = 1 mg, Neb, 2 times a day, rinse mouth out after use, # 120 mL, 1 Refills, Maintenance, 10/25/21 18:30:00 EDT, Suspension, [facility] #[id number], Partial fill upon patient request if the [...] Maintenance, 11/18/20 21:02:00 EDT, Tablet, [facility]/pharmacy #[id number], Partial fill upon patient... Start Date: 11/18/20 Status: Ordered diclofenac 1% topical gel = 1 Gm, Topically, 4 times a day, FOR PAIN., # 100 Gm, 1 Refills, [facility] 77185, 30, APPLY 1 GM TOPICALLY 4 TIMES A DAY FOR PAIN, 153, cm, 02/21/22 11:07:00 EST, Height, 105, kg, 05/31/21 15:15:00 EST, Dry Weight Start Date: 08/05/21 Status: Ordered Dilaudid 2 mg oral tablet 1 tablet = 2 mg, By Mouth, 2 times a day, PRN Pain , Severe, checked masspat, # 28 tablet, 0 Refills, Maintenance, 11/10/21 14:47:00 EDT, Tablet, [facility] #[id number], Partial fill upon patient request if the prescription is for a schedule II o... Start Date: 11/10/21 Status: Ordered Estrace Vaginal Cream 0.1 mg/g = 2 Gm, Vaginally, Daily at bedtime, 2g PV daily at bedtime x 2 weeks, then 1g PV 1-3x per week, # 42.5 Gm, 5 Refills, Maintenance, 11/09/21 11:17:00 EDT, [facility] #[id number], Partial fill upon patient request if the prescription is for a sche... Start Date: 11/09/21 Status: Ordered gabapentin 800 mg oral tablet See Instructions, TAKE 1 TABLET BY MOUTH FOUR TIMES DAILY, # 360 tablet, 0 Refills, [facility] #[id number], 153, cm, 10/08/21 13:23:00 EDT, Height, 113.9, [...] capsule, 1 Refills, Maintenance, 09/28/21 16:58:00 EDT, [facility] #[id number], 153, cm, 08/10/21 11:19:00 EDT, Height, 105, [...] 1 Refills, Maintenance, 07/30/21 12:25:00 EDT, Tablet, [facility] #[id number], Partial fill upon patient request if the prescription is for a schedule II opioid drug... Start Date: 07/30/21 Status: Ordered levothyroxine 0.1 mg oral tablet 1 tablet = 100 mcg, By Mouth, Daily, dose increase, # 90 tablet, 0 Refills, Maintenance, 11/01/21 16:08:00 EDT, [facility] #[id number], Please discontinue 88ug, 153, cm, 10/08/21 13:23:00 EDT, Height, 113.9, kg, 10/08/21 13:23:00 EDT, Dry Weight Start Date: 11/01/21 Status: Ordered lidocaine 2% topical gel with applicator 5 mL = 0.1 Gm, Topically, 2 times a day, PRN Pain , Moderate, # 60 mL, 2 Refills, Soft Stop, 09/24/21 16:43:00 EDT, Gel, [facility] #[id number], Partial fill upon patient request if the [...] 90 capsule, 0 Refills, 09/27/21 14:31:00 EDT, [facility] #[id number], 153, cm, 08/10/21 11:19:00 EDT, Height, 105, kg, 05/31/21 15:15:00 EST, Dry Weight Start Date: 09/27/21 Status: Ordered ondansetron 4 mg oral tablet 1 tablet = 4 mg, By Mouth, Every 8 hours, PRN Nausea & Vomiting, # 30 tablet, 1 Refills, Maintenance, 11/10/21 14:47:00 EDT, [facility] #[id number], 153, cm, 10/08/21 13:23:00 EDT, Height, 113.9, kg, 10/08/21 13:23:00 EDT, Dry Weight Start Date: 11/10/21 Status: Ordered oxybutynin 5 mg oral tablet 1 tablet, By Mouth, 3 times a day, # 270 tablet, 1 Refills, [facility], 153, cm, 08/10/21 11:19:00 EDT, Height, 105, [...] 1 Refills, Maintenance, 07/30/21 12:22:00 EDT, Tablet, [facility] #[id number], Partial fill upon patient request if the [...]
--- OUTSIDE RECORDS SUMMARY | 2022-12-30 08:17 | XMS_ITS | Continuity of Care Document ---
Author Name Unknown Organization [facility] Address [address] [place] [address]- Care Team Providers Care Chicken Tender Name Role Phone Kaiden Chirinos MD Primary Care Physician [phone] Encounter [facility] [place] Date(s): 10/28/20 - 11/27/20 [facility] [address] [place], [place] [address] Allergies, Adverse Reactions, Alerts Substance [...] 09/22/20 16:39:00 EDT, Route to Pharmacy Electronically, [facility]/pharmacy #[id number], Partial fill upon patient request if the prescription is for a schedule II... Start Date: 09/22/20 Status: Ordered baclofen 10 mg oral tablet 10 mg, 1, tablet, By Mouth, 3 times a day, PRN, # 30 tablet, Refills 0, Tot. Refills 0, Maintenance, Spasm, 01/31/19 21:47:23 EDT, Route to Pharmacy Electronically, [id number], [facility]/pharmacy #[id number] Start Date: 01/31/19 [...] tablet, 1 Refills, Maintenance, 11/09/20 23:47:00EDT, Tablet, [facility]/pharmacy #[id number], Partial fill [...] 1 Refills, Maintenance, 11/05/20 11:43:00 EDT, Tablet, [facility]/pharmacy #[id number], Partial [...] Refills, Maintenance, 11/27/20 17:20:00 EDT, [facility], 160, cm, 10/30/20 8:28:00 EDT, Height, 105.5, kg, 10/30/20 8:28:00 EDT, Dry Weight Start Date: 11/27/20 Status: Ordered ProAir HFA 90 mcg/inh inhalation aerosol 2 puffs, Inhalation, Every 4 hours, PRN as needed for wheezing, # 8.5 Gm, 0 Refills, Maintenance, 11/16/20 8:39:00 EDT, Aerosol, [facility]/pharmacy #[id number], Partial fill upon [...] 1 Refills, Maintenance, 11/03/20 13:28:00 EDT, Tablet, [facility]/pharmacy #[id number], Partial fill upon patient request if the [...]
--- OUTSIDE RECORDS SUMMARY | 2022-12-30 08:17 | XMS_ITS | Continuity of Care Document ---
Author Name Unknown Organization [facility] Address [address] [place] [address]- Care Team Providers Care Dimension Specification Inspector Name Role Phone Kaiden Chirinos MD Primary Care Physician Encounter [facility] [place] Date(s): 07/14/22 - 08/13/22 [facility] [address] [place], [place] [address] Allergies, Adverse Reactions, Alerts [...] 8.5 Gm,0 Refills, Maintenance, 12/22/21 10:40:00 EDT, [facility] #[id number], 2 puffs Inhalation Every 4 hours,PRN: NEEDED FOR WHEEZING/cough/shortness... Start Date: 12/22/21 Status: Ordered albuterol 0.083% inhalation solution 3 mL = 2.5 mg, Inhalation, Every 4 hours, PRN for wheezing/cough/shortness of breath, # 25 each, 0 Refills, Maintenance, 06/29/22 13:08:00 EDT, Solution, [facility] #[id number], Partial fill upon patient request if the prescription is for a sched... Start Date: 06/29/22 Status: Ordered Clovis Saline Mist 0.65% nasal spray 2 sprays, Nares, Both, 4 times a day, # 1 each, 0 Refills, Maintenance, 02/04/22 13:32:00 EDT, [facility] #[id number], Partial fill upon patient request if the [...] tablet, 0 Refills, Maintenance, 12/27/21 13:43:00 EDT, [facility] #[id number], 153, cm, 10/08/21 13:23:00 EDT, Height, 113.9, kg, 10/08/21 13:23:00EDT, Dry Weight Start Date: 12/27/21 Status: Ordered chlorhexidine 2% topical liquid See Instructions, 1 application to bilateral forearms twice weekly, # 120 mL, 3 Refills, Soft Stop,06/17/22 11:06:00 EST, Liquid, [facility] #[id number], Partial fill upon patient request if the prescription is for a schedule II opioid drug., 1... Start Date: 06/17/22 Status: Ordered chlorhexidine 4% topical soap See Instructions, apply topically twice weekly to skin on forearms, # 120 mL, 2 Refills, Soft Stop,06/17/22 16:03:00 EST, [facility] #[id number], Partial fill upon patient request if the [...] FOR PAIN., # 100 Gm, 1 Refills, [id number], 30, APPLY 1 GM TOPICALLY 4 TIMES A DAY FOR PAIN, 153, cm, 06/07/21 11:07:00 EST, Height, 105, kg, 05/31/21 15:15:00 EST, Dry Weight Start Date: 08/05/21 Status: Ordered Dilaudid 2 mg oral tablet 1 tablet = 2 mg, By Mouth, 2 times a day, PRN Pain , Severe, checked masspat, # 56 tablet, 0 Refills, Maintenance, 07/28/22 13:10:00 EDT, Tablet, [facility] #[id number], Partial fill upon patient request if the prescription is for a schedule II o... Start Date: 07/28/22 Status: Ordered Estrace Vaginal Cream 0.1 mg/g = 2 Gm, Vaginally, Daily at bedtime, 2g PV daily at bedtime x 2 weeks, then 1g PV 1-3x per week, # 42.5 Gm, 5 Refills, Maintenance, 11/09/21 11:17:00 EDT, [facility] #[id number], Partial fill upon patient request if the prescription is for a sche... Start Date: 11/09/21 Status: Ordered Estradiol Patch 0.0375 mg/24 hours twice weekly transdermal film, extended release See Instructions, APPLY 1 PATCH TOPICALLY TWICE WEEKLY DIRECTED, # 8 patch, 6 Refills, Maintenance, 03/23/22 16:10:00 EST, [facility] #[id number], 28, APPLY 1 PATCH TOPICALLY TWICE WEEKLY DIRECTED, 153, cm, 01/04/22 13:15:00 EDT, Height, 11... Start Date: 03/23/22 Status: Ordered fluconazole 150 mg oral tablet 1 tablet = 150 mg, By Mouth, Once, PRN vaginal yeast infection, # 1 tablet, 0 Refills, Soft Stop, 03/15/22 10:42:00 EST, Tablet, [facility] #[id number], Partial fill upon patient request if the prescription is for a schedule II opioid drug., 153,... Start Date: 03/15/22 Status: Ordered fluticasone 50 mcg/inh nasal spray See Instructions, SHAKE LIQUID AND USE 1 SPRAY IN EACH NOSTRIL TWICE DAILY, # 16 Gm, 1 Refills, Maintenance, 05/18/22 13:57:00 EST, [facility] #[id number], 30, SHAKE LIQUID AND USE 1 SPRAY IN EACH NOSTRIL TWICE DAILY, 153, cm, 04/25/22 16:23:00 E... Start Date: 05/18/22 Status: Ordered gabapentin 800 mg oral tablet 1 tablet, By Mouth, 4 times a day, # 360 tablet, 1 Refills, Maintenance, 04/19/22 12:59:00 EST, [facility] #[id number], 153, cm, 01/04/22 13:15:00 EDT, Height, 113.9, [...] capsule, 1 Refills, Maintenance, 07/18/22 9:45:00 EDT, [facility] #[id number], 153, cm, 06/17/22 10:53:00 EST, Height, 109, [...] 1 Refills, Maintenance, 04/28/22 13:51:00 EST, Tablet, [facility] #[id number], Partial fill upon patient request if the prescription is for a schedule II opioid drug., 153, cm... Start Date: 04/28/22 Status: Ordered lidocaine 4% topical cream 1 application, Topically, 3 times a day, PRN Pain , Mild, # 30 Gm, 1 Refills, Maintenance, 06/24/2315:24:00 EST, Cream, [facility] #[id number], Partial fill upon patient request if the prescription is for a schedule II opioid drug., 1 applicatio... Start Date: 06/23/22 Status: Ordered meloxicam 15 mg oral tablet 1/2 TO 1 TABLET, By Mouth, Daily, PRN NEEDED FOR MODERATE PAIN, # 30 tablet, 5 Refills, Maintenance, 01/10/22 20:40:00 EDT, [facility] #[id number], 153, cm, 01/04/22 13:15:00 EDT, Height, 113.9, [...] capsule, 1 Refills, Maintenance, 07/26/22 14:24:00 EDT, [facility] #[id number], 153, cm, 06/17/22 10:53:00 EST, Height, 109, kg, 06/17/22 10:53:00 EST, Dry Weight Start Date: 07/26/22 Status: Ordered ondansetron 4 mg oral tablet 1 tablet, By Mouth, Every 8 hours, PRN NEEDED FOR NAUSEA OR VOMITING, # 30 tablet, 1 Refills, Maintenance, 06/14/22 10:29:00 EST, [facility] #[id number], 153, cm, 06/08/22 9:37:00 EST, Height, 109, kg, 04/25/22 15:54:00 EST, Dry Weight Start Date: 06/14/22 Status: Ordered oxybutynin 5 mg oral tablet 1 tablet, By Mouth, 3 times a day, # 270 tablet, 0 Refills, Maintenance, 07/05/22 8:13:00 EDT, [facility] #[id number], 153, cm, 06/17/22 10:53:00 EST, Height, 109, [...] 07/01/22 14:21:00 EDT, Route to Pharmacy Electronically, [facility] #[id number], Partial fill upon patient request if the... Start Date: 07/01/22 Status: Ordered triamcinolone 0.1% topical cream 1 application, Topically, 3 times a day, PRN arm rash, # 30 Gm, 1 Refills, Acute 06/08/23 9:53:00 EST, 06/08/22 9:53:00 EST, Cream, [facility] #[id number], Partial fill upon patient request if the [...] Care Physician Member Role: PCP Address: Address: [address] [place] [address] [facility] [place] [address]- Care Team Related Persons Name: RODOLFO SHEIKH Address: home [address] [address] [address] [place] [id number] Name: CHIARA TEE Address: home [address] [address] [address] [place] [address]
--- OUTSIDE RECORDS SUMMARY | 2022-12-30 08:17 | XMS_ITS | Continuity of Care Document ---
Author Name Unknown Organization [facility] Address [address] [place] [address]- Care Team Providers Care Condemnation Engineer Name Role Phone Candis CARDENAS, Kaiden Villalta Primary Care Physician [place] [facility] [place](s): 03/19/21 - 04/18/21 [facility] [address] [place], [place] [address] Allergies, Adverse Reactions, Alerts Substance [...] Pharmacy Electronically, [facility]/pharmacy #[id number], Partial fill upon patient request if the prescription is for a schedule II... Start Date: 12/24/20 Status: Ordered baclofen 10 mg oral tablet 10 mg, 1, tablet, By Mouth, 3 times a day, PRN, # 30 tablet, Refills 0, Tot. Refills 0, Maintenance, Spasm, 01/31/19 21:47:23 EDT, Route to Pharmacy Electronically, [id number], [facility]/pharmacy #[id number] Start Date: 01/31/19 Stop Date: 02/14/19 Status: Ordered benzonatate 100 mg oral capsule 2 capsule, By Mouth, 3 times a day, PRN NEEDED FOR COUGH, # 30 capsule, 1 Refills, Physician Stop 03/19/22 17:38:00 EST, 02/19/22 16:55:00 EDT, [facility]/pharmacy #[id number], 160, cm, 12/04/20 10:52:00 EDT, Height, 104.6, kg, 12/04/20 10:52:00 EDT, Dry Weight Start Date: 02/19/22 Stop Date: 03/19/22 Status: Ordered benzonatate 100 mg oral capsule 2 capsule, By Mouth, 3 times a day, PRN NEEDED FOR COUGH, # 30 capsule, 1 Refills, Physician Stop 02/19/22 16:55:00 EDT, 02/19/21 16:54:00 EDT, [facility]/pharmacy #[id number], [...] # 360 tablet, 1 Refills, [id number], 160, cm, 03/30/21 10:47:00 EST, Height, 104.6, [...] 1 Refills, Maintenance, 02/25/21 8:28:00 EST, Capsule, [facility]/pharmacy #[id number], Partial [...] before breakfast, # 90 tablet, 0 Refills, [facility] STORE [id number], 160, cm, 03/30/21 10:47:00 EST, Height, 104.6, kg, 12/04/20 10:52:00 EDT, Dry Weight Start Date: 04/15/21 Status: Ordered meloxicam 15 mg oral tablet 1/2 TO 1 TABLET, By Mouth, Daily, PRN NEEDED FOR MODERATE PAIN, # 30 tablet, 1 Refills, [facility], 160, cm, 12/04/20 10:52:00 EDT, Height, 104.6, kg, 12/04/20 10:52:00 EDT, Dry Weight Start Date: 01/22/21 Status: Ordered omeprazole 20 mg oral enteric coated capsule 1 capsule, By Mouth, Daily, # 90 capsule, 1 Refills, [facility], 160, cm, 03/30/21 10:47:00 EST, Height, 104.6, kg, 12/04/20 10:52:00 EDT, Dry Weight Start Date: 03/31/21 Status: Ordered ondansetron 4 mg oral tablet See Instructions, TAKE 1 TABLET BY MOUTH EVERY 8 HOURS NEEDED FOR NAUSEA AND VOMITING, # 15 tablet, 1 Refills, Physician Stop 04/19/21 17:37:00 EST, 03/19/21 17:37:00 EST, [facility]/pharmacy #[id number], 160,cm, 12/04/20 10:52:00 EDT, Height, [...] 0 Refills, Maintenance, 11/16/20 8:39:00 EDT, Aerosol, [facility]/pharmacy #[id number], Partial fill upon patient request if the prescription is for a schedule II opioid drug., 2 puffs Inhal... Start Date: 11/16/20 Status: Ordered Qvar Redihaler 40 mcg/inh inhalation aerosol = 40 mcg, Inhalation, 2 times a day, to replace flovent rinse mouth and throat after use, # 1 each,1 Refills, Maintenance, 03/30/21 20:35:00 EST, [facility]/pharmacy #[id number], Partial [...] 1 Refills, Maintenance, 04/06/21 12:26:00 EST, Tablet, [facility]/pharmacy #[id number], [...]
--- OUTSIDE RECORDS SUMMARY | 2022-12-30 08:17 | XMS_ITS | Continuity of Care Document ---
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 Start Date: 12/22/21 Status: Ordered albuterol 0.083% inhalation solution 3 mL = 2.5 mg, Inhalation, Every 4 hours, PRN for wheezing/cough/shortness of breath, # 25 each, 0 Refills, Maintenance, 10/14/21 22:10:00 EDT, Solution, [facility] #[id number], Partial fill upon patient request if the prescription is for a sched... Start Date: 10/14/21 Status: Ordered Augmentin 875 mg-125 mg oral tablet 1 tablet, By Mouth, Every 12 hours, for 10 days, take with food, # 20 tablet, 0 Refills, Acute 02/19/22 9:13:00 EDT, 02/09/22 9:13:00 EDT, Tablet, [facility] #[id number], Partial fill upon patient request if the prescription is for a schedule II... Start Date: 02/09/22 Stop Date: 02/19/22 Status: Ordered Siloam Saline Mist 0.65% nasal spray 2 sprays, Nares, Both, 4 times a day, # 1 each, 0 Refills, Maintenance, 02/04/22 13:32:00 EDT, [facility] #[id number], Partial fill upon patient request if the [...] tablet, 0 Refills, Maintenance, 12/27/21 13:43:00 EDT, [facility] #[id number], 153, cm, 10/08/21 13:23:00 EDT, Height, 113.9, kg, 10/08/21 13:23:00EDT, Dry Weight Start Date: 12/27/21 Status: Ordered clonazePAM 0.5 mg oral tablet 1 tablet = 0.5 mg, By Mouth, 4 times a day, PRN Anxiety, Patient on controlled substance contract. Please do NOT fill until 09/23/2020, # 112 tablet, 0 Refills, Maintenance, 11/18/20 21:02:00 EDT, Tablet, [facility]/pharmacy #[id number], Partial fill upon patient... Start Date: 11/18/20 Status: Ordered diclofenac 1% topical gel = 1 Gm, Topically, 4 times a day, FOR PAIN., # 100 Gm, 1 Refills, [facility] 12947, 30, APPLY 1 GM TOPICALLY 4 TIMES A DAY FOR PAIN, 153, cm, 06/07/21 11:07:00 EST, Height, 105, kg, 05/31/21 15:15:00 EST, Dry Weight Start Date: 08/05/21 Status: Ordered Dilaudid 2 mg oral tablet 1 tablet = 2 mg, By Mouth, 2 times a day, PRN Pain , Severe, checked masspat, # 28 tablet, 0 Refills, Maintenance, 02/04/22 13:38:00 EDT, Tablet, [facility] #[id number], Partial fill upon patient request if the prescription is for a schedule II o... Start Date: 02/04/22 Status: Ordered Estrace Vaginal Cream 0.1 mg/g = 2 Gm, Vaginally, Daily at bedtime, 2g PV daily at bedtime x 2 weeks, then 1g PV 1-3x per week, # 42.5 Gm, 5 Refills, Maintenance, 11/09/21 11:17:00 EDT, [facility] #[id number], Partial fill upon patient request if the prescription is for a sche... Start Date: 11/09/21 Status: Ordered Estradiol Patch 0.0375 mg/24 hours twice weekly transdermal film, extended release See Instructions, APPLY 1 PATCH TOPICALLY TWICE WEEKLY DIRECTED, # 8 patch, 0 Refills, Maintenance, 02/01/22 11:03:00 EDT, [facility] #[id number], 28, APPLY 1 PATCH TOPICALLY TWICE WEEKLY DIRECTED, 153, cm, 01/04/22 13:15:00 EDT, Height, 11... Start Date: 02/01/22 Status: Ordered gabapentin 800 mg oral tablet See Instructions, TAKE 1 TABLET BY MOUTH FOUR TIMES DAILY, # 360 tablet, 0 Refills, [facility] #[id number], 153, cm, 10/08/21 13:23:00 EDT, Height, 113.9, [...] capsule, 1 Refills, Maintenance, 12/08/21 10:10:00 EDT, [facility] #[id number], 153, cm, 10/08/21 13:23:00 EDT, Height, 113.9,kg, [...] 1 Refills, Maintenance, 11/30/21 15:44:00 EDT, Tablet, [facility] #[id number], [place]... Start Date: 11/30/21 Status: Ordered levothyroxine 0.112 mg oral tablet 1 tablet, By Mouth, Daily, AVOID ANTACIDS, CALCIUM, OR IRON FOR AT LEAST 4 HOURS BEFORE OR 4 HOURS AFTER; ON AN ON AN EMPTY STOMACH, # 90 tablet, 0 Refills, Maintenance, 01/20/22 17:46:00 EDT, [facility] #[id number], 153, cm, 01/04/22 13:15:00 ED... Start Date: 01/20/22 Status: Ordered lidocaine 3% topical gel 1 application, Topically, 2 times a day, PRN as needed for pain, to replace 2% topical, # 28.5 Gm, 2 Refills, Acute 03/29/22 14:17:00 EST, 12/28/21 14:17:00 EDT, Gel, [facility] #[id number], Partial fill upon patient request if the prescription i... Start Date: 12/28/21 Stop Date: 03/29/22 Status: Ordered meloxicam 15 mg oral tablet 1/2 TO 1 TABLET, By Mouth, Daily, PRN NEEDED FOR MODERATE PAIN, # 30 tablet, 5 Refills, Maintenance, 01/10/22 20:40:00 EDT, [facility] #[id number], 153, cm, 01/04/22 13:15:00 EDT, Height, 113.9, [...] capsule, 0 Refills, Maintenance, 01/16/22 8:28:00 EDT, [facility] #[id number], 153, cm, 01/04/22 13:15:00 EDT, Height, 113.9, kg, 10/08/21 13:23:00 EDT, Dry Weight Start Date: 01/16/22 Status: Ordered ondansetron 4 mg oral tablet 1 tablet = 4 mg, By Mouth, Every 8 hours, PRN Nausea & Vomiting, # 30 tablet, 1 Refills, Maintenance, 11/10/21 14:47:00 EDT, [facility] #[id number], 153, cm, 10/08/21 13:23:00 EDT, Height, 113.9, kg, 10/08/21 13:23:00 EDT, Dry Weight Start Date: 11/10/21 Status: Ordered oxybutynin 5 mg oral tablet 1 tablet, By Mouth, 3 times a day, # 270 tablet, 1 Refills, 01/10/22 10:29:00 EDT, [facility] #[id number], 153, cm, 01/04/22 13:15:00 EDT, Height, 113.9, [...] Dates Health Status Cl inical Service Informant Acute URI Discharge Diagnosis 02/04/22 Chronic pain of right knee Discharge Diagnosis 02/04/22 Social History Social History Type Response Smoking Status Former smoker, quit more than 30 days ago;Never entered on: 11/09/21 Sex Patient Care team information Personnel Name: Candis CARDENAS, Kaiden Villalta Address: Address: [address] [place] [address] Adult & Pediatric Medicine [place], [place] [address]
--- OUTSIDE RECORDS SUMMARY | 2022-12-30 08:17 | XMS_ITS | Continuity of Care Document ---
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 Start Date: 12/22/21 Status: Ordered albuterol 0.083% inhalation solution 3 mL = 2.5 mg, Inhalation, Every 4 hours, PRN for wheezing/cough/shortness of breath, # 25 each, 0 Refills, Maintenance, 10/14/21 22:10:00 EDT, Solution, [facility] #[id number], Partial fill upon patient request if the prescription is for a sched... Start Date: 10/14/21 Status: Ordered Augmentin 875 mg-125 mg oral tablet 1 tablet, By Mouth, Every 12 hours, for 10 days, take with food, # 20 tablet, 0 Refills, Acute 02/19/22 9:13:00 EDT, 02/09/22 9:13:00 EDT, Tablet, [facility] #[id number], Partial fill upon patient request if the prescription is for a schedule II... Start Date: 02/09/22 Stop Date: 02/19/22 Status: Ordered Fabens Saline Mist 0.65% nasal spray 2 sprays, Nares, Both, 4 times a day, # 1 each, 0 Refills, Maintenance, 02/04/22 13:32:00 EDT, [facility] #[id number], Partial fill upon patient request if the [...] tablet, 0 Refills, Maintenance, 12/27/21 13:43:00 EDT, [facility] #[id number], 153, cm, 10/08/21 13:23:00 EDT, Height, 113.9, [...] FOR PAIN., # 100 Gm, 1 Refills, [facility], 30, APPLY 1 GM TOPICALLY 4 TIMES A DAY FOR PAIN, 153, cm, 06/07/21 11:07:00 EST, Height, 105, kg, 05/31/21 15:15:00 EST, Dry Weight Start Date: 08/05/21 Status: Ordered Dilaudid 2 mg oral tablet 1 tablet = 2 mg, By Mouth, 2 times a day, PRN Pain , Severe, checked masspat, # 28 tablet, 0 Refills, Maintenance, 02/04/22 13:38:00 EDT, Tablet, [facility] #[id number], Partial fill upon patient request if the prescription is for a schedule II o... Start Date: 02/04/22 Status: Ordered Estrace Vaginal Cream 0.1 mg/g = 2 Gm, Vaginally, Daily at bedtime, 2g PV daily at bedtime x 2 weeks, then 1g PV 1-3x per week, # 42.5 Gm, 5 Refills, Maintenance, 11/09/21 11:17:00 EDT, [facility] #[id number], Partial fill upon patient request if the prescription is for a sche... Start Date: 11/09/21 Status: Ordered Estradiol Patch 0.0375 mg/24 hours twice weekly transdermal film, extended release See Instructions, APPLY 1 PATCH TOPICALLY TWICE WEEKLY DIRECTED, # 8 patch, 0 Refills, Maintenance, 02/01/22 11:03:00 EDT, [facility] #[id number], 28, APPLY 1 PATCH TOPICALLY TWICE WEEKLY DIRECTED, 153, cm, 01/04/22 13:15:00 EDT, Height, 11... Start Date: 02/01/22 Status: Ordered fluconazole 150 mg oral tablet 1 tablet = 150 mg, By Mouth, Once, # 1 tablet, 0 Refills, Soft Stop, 02/14/22 14:41:00 EDT, Tablet,[facility] #[id number], Partial fill upon patient request if the prescription is for a schedule II opioid drug., 153, cm, 01/04/22 13:15:00 EDT, H... Start Date: 02/14/22 Status: Ordered gabapentin 800 mg oral tablet See Instructions, TAKE 1 TABLET BY MOUTH FOUR TIMES DAILY, # 360 tablet, 0 Refills, [facility] #[id number], 153, cm, 10/08/21 13:23:00 EDT, Height, 113.9, [...] capsule, 1 Refills, Maintenance, 12/08/21 10:10:00 EDT, [facility] #[id number], 153, cm, 10/08/21 13:23:00 EDT, Height, 113.9,kg, [...] 1 Refills, Maintenance, 11/30/21 15:44:00 EDT, Tablet, [facility] #[id number], [place]... Start Date: 11/30/21 Status: Ordered levothyroxine 0.112 mg oral tablet 1 tablet, By Mouth, Daily, AVOID ANTACIDS, CALCIUM, OR IRON FOR AT LEAST 4 HOURS BEFORE OR 4 HOURS AFTER; ON AN ON AN EMPTY STOMACH, # 90 tablet, 0 Refills, Maintenance, 01/20/22 17:46:00 EDT, [facility] #[id number], 153, cm, 01/04/22 13:15:00 ED... Start Date: 01/20/22 Status: Ordered lidocaine 3% topical gel 1 application, Topically, 2 times a day, PRN as needed for pain, to replace 2% topical, # 28.5 Gm, 2 Refills, Acute 03/29/22 14:17:00 EST, 12/28/21 14:17:00 EDT, Gel, [facility] #[id number], Partial fill upon patient request if the prescription i... Start Date: 12/28/21 Stop Date: 03/29/22 Status: Ordered meloxicam 15 mg oral tablet 1/2 TO 1 TABLET, By Mouth, Daily, PRN NEEDED FOR MODERATE PAIN, # 30 tablet, 5 Refills, Maintenance, 01/10/22 20:40:00 EDT, [facility] #[id number], 153, cm, 01/04/22 13:15:00 EDT, Height, 113.9, [...] capsule, 0 Refills, Maintenance, 01/16/22 8:28:00 EDT, [facility] #[id number], 153, cm, 01/04/22 13:15:00 EDT, Height, 113.9, kg, 10/08/21 13:23:00 EDT, Dry Weight Start Date: 01/16/22 Status: Ordered ondansetron 4 mg oral tablet 1 tablet = 4 mg, By Mouth, Every 8 hours, PRN Nausea & Vomiting, # 30 tablet, 1 Refills, Maintenance, 11/10/21 14:47:00 EDT, [facility] #[id number], 153, cm, 10/08/21 13:23:00 EDT, Height, 113.9, kg, 10/08/21 13:23:00 EDT, Dry Weight Start Date: 11/10/21 Status: Ordered oxybutynin 5 mg oral tablet 1 tablet, By Mouth, 3 times a day, # 270 tablet, 1 Refills, 01/10/22 10:29:00 EDT, [facility] #[id number], 153, cm, 01/04/22 13:15:00 EDT, Height, 113.9, [...] Dates Health Status Cl inical Service Informant Right acute otitis media Discharge Diagnosis 02/08/22 Social History Social History Type Response Smoking Status Former smoker, quit more than 30 days ago;Never entered on: 11/09/21 Sex Patient Care team information Personnel Name: Candis CARDENAS, Kaiden Villalta Address: Address: [address] [place] [address] Adult & Pediatric Medicine [place], [place] [address]
--- OUTSIDE RECORDS SUMMARY | 2022-12-30 08:18 | XMS_ITS | Continuity of Care Document ---
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 Start Date: 12/22/21 Status: Ordered albuterol 0.083% inhalation solution 3 mL = 2.5 mg, Inhalation, Every 4 hours, PRN for wheezing/cough/shortness of breath, # 25 each, 0 Refills, Maintenance, 06/29/22 13:08:00 EDT, Solution, [facility] #[id number], Partial fill upon patient request if the prescription is for a sched... Start Date: 06/29/22 Status: Ordered [place] Saline Mist 0.65% nasal spray 2 sprays, Nares, Both, 4 times a day, # 1 each, 0 Refills, Maintenance, 02/04/22 13:32:00 EDT, [facility] #[id number], Partial fill upon patient request if the [...] tablet, 0 Refills, Maintenance, 12/27/21 13:43:00 EDT, [facility] #[id number], 153, cm, 10/08/21 13:23:00 EDT, Height, 113.9, kg, 10/08/21 13:23:00EDT, Dry Weight Start Date: 12/27/21 Status: Ordered chlorhexidine 2% topical liquid See Instructions, 1 application to bilateral forearms twice weekly, # 120 mL, 3 Refills, Soft Stop,06/17/22 11:06:00 EST, Liquid, [facility] #[id number], Partial fill upon patient request if the prescription is for a schedule II opioid drug., 1... Start Date: 06/17/22 Status: Ordered chlorhexidine 4% topical soap See Instructions, apply topically twice weekly to skin on forearms, # 120 mL, 2 Refills, Soft Stop,06/17/22 16:03:00 EST, [facility] #[id number], Partial fill upon patient request if the [...] FOR PAIN., # 100 Gm, 1 Refills, [id number], 30, APPLY 1 GM TOPICALLY 4 TIMES A DAY FOR PAIN, 153, cm, 06/07/21 11:07:00 EST, Height, 105, kg, 05/31/21 15:15:00 EST, Dry Weight Start Date: 08/05/21 Status: Ordered Dilaudid 2 mg oral tablet 1 tablet = 2 mg, By Mouth, 2 times a day, PRN Pain , Severe, checked masspat, # 56 tablet, 0 Refills, Maintenance, 06/27/22 21:04:00 EDT, Tablet, [facility] #[id number], Partial fill upon patient request if the prescription is for a schedule II o... Start Date: 06/27/22 Status: Ordered Estrace Vaginal Cream 0.1 mg/g = 2 Gm, Vaginally, Daily at bedtime, 2g PV daily at bedtime x 2 weeks, then 1g PV 1-3x per week, # 42.5 Gm, 5 Refills, Maintenance, 11/09/21 11:17:00 EDT, [facility] #[id number], Partial fill upon patient request if the prescription is for a sche... Start Date: 11/09/21 Status: Ordered Estradiol Patch 0.0375 mg/24 hours twice weekly transdermal film, extended release See Instructions, APPLY 1 PATCH TOPICALLY TWICE WEEKLY DIRECTED, # 8 patch, 6 Refills, Maintenance, 03/23/22 16:10:00 EST, [facility] #[id number], 28, APPLY 1 PATCH TOPICALLY TWICE WEEKLY DIRECTED, 153, cm, 01/04/22 13:15:00 EDT, Height, 11... Start Date: 03/23/22 Status: Ordered fluconazole 150 mg oral tablet 1 tablet = 150 mg, By Mouth, Once, PRN vaginal yeast infection, # 1 tablet, 0 Refills, Soft Stop, 03/15/22 10:42:00 EST, Tablet, [facility] #[id number], Partial fill upon patient request if the prescription is for a schedule II opioid drug., 153,... Start Date: 03/15/22 Status: Ordered fluticasone 50 mcg/inh nasal spray See Instructions, SHAKE LIQUID AND USE 1 SPRAY IN EACH NOSTRIL TWICE DAILY, # 16 Gm, 1 Refills, Maintenance, 05/18/22 13:57:00 EST, [facility] #[id number], 30, SHAKE LIQUID AND USE 1 SPRAY IN EACH NOSTRIL TWICE DAILY, 153, cm, 04/25/22 16:23:00 E... Start Date: 05/18/22 Status: Ordered gabapentin 800 mg oral tablet 1 tablet, By Mouth, 4 times a day, # 360 tablet, 1 Refills, Maintenance, 04/19/22 12:59:00 EST, [facility] #[id number], 153, cm, 01/04/22 13:15:00 EDT, Height, 113.9, [...] capsule, 1 Refills, Maintenance, 07/18/22 9:45:00 EDT, [facility] #[id number], 153, cm, 06/17/22 10:53:00 EST, Height, 109, [...] 1 Refills, Maintenance, 04/28/22 13:51:00 EST, Tablet, [facility] #[id number], Partial fill upon patient request if the prescription is for a schedule II opioid drug., 153, cm... Start Date: 04/28/22 Status: Ordered lidocaine 4% topical cream 1 application, Topically, 3 times a day, PRN Pain , Mild, # 30 Gm, 1 Refills, Maintenance, 06/24/2315:24:00 EST, Cream, [facility] #[id number], Partial fill upon patient request if the prescription is for a schedule II opioid drug., 1 applicatio... Start Date: 06/23/22 Status: Ordered meloxicam 15 mg oral tablet 1/2 TO 1 TABLET, By Mouth, Daily, PRN NEEDED FOR MODERATE PAIN, # 30 tablet, 5 Refills, Maintenance, 01/10/22 20:40:00 EDT, [facility] #[id number], 153, cm, 01/04/22 13:15:00 EDT, Height, 113.9, [...] capsule, 1 Refills, Maintenance, 07/26/22 14:24:00 EDT, [facility] #[id number], 153, cm, 06/17/22 10:53:00 EST, Height, 109, kg, 06/17/22 10:53:00 EST, Dry Weight Start Date: 07/26/22 Status: Ordered ondansetron 4 mg oral tablet 1 tablet, By Mouth, Every 8 hours, PRN NEEDED FOR NAUSEA OR VOMITING, # 30 tablet, 1 Refills, Maintenance, 06/14/22 10:29:00 EST, [facility] #[id number], 153, cm, 06/08/22 9:37:00 EST, Height, 109, kg, 04/25/22 15:54:00 EST, Dry Weight Start Date: 06/14/22 Status: Ordered oxybutynin 5 mg oral tablet 1 tablet, By Mouth, 3 times a day, # 270 tablet, 0 Refills, Maintenance, 07/05/22 8:13:00 EDT, [facility] #[id number], 153, cm, 06/17/22 10:53:00 EST, Height, 109, [...] 07/01/22 14:21:00 EDT, Route to Pharmacy Electronically, [facility] #[id number], Partial fill upon patient request if the... Start Date: 07/01/22 Status: Ordered triamcinolone 0.1% topical cream 1 application, Topically, 3 times a day, PRN arm rash, # 30 Gm, 1 Refills, Acute 06/08/23 9:53:00 EST, 06/08/22 9:53:00 EST, Cream, [facility] #[id number], Partial fill upon patient request if the [...] Care Physician Member Role: PCP Address: Address: [address] [place] [address] Adult & [place] [address]- Care Team Related Persons Name: RODOLFO SHEIKH Address: home [address] [facility] [address] [place] [id number] Name: CHIARA TEE Address: home [address] [place] [address] [address] [place] [id number]
--- OUTSIDE RECORDS SUMMARY | 2022-12-30 08:18 | XMS_ITS | Continuity of Care Document ---
Author Name Unknown Organization [facility] Address [address] [place] [address], [address] [place] [address]- Care Team Providers Care Research Management Associate Name Role Phone Candis CARDENAS, Kaiden Villalta Primary Care Physician Encounter [facility] [place] Date(s): 11/29/22 - 12/29/22 [facility] [address] [place] [address], [address] [place] [address]- Allergies, Adverse Reactions, Alerts Substance Reaction Severity [...] 8.5 Gm,0 Refills, Maintenance, 12/22/21 10:40:00 T, [facility] #[id number], 2 puffs Inhalation Every 4 hours,PRN: NEEDED FOR WHEEZING/cough/shortness... Start Date: 12/22/21 Status: Ordered albuterol 0.083% inhalation solution 3 mL = 2.5 mg, Inhalation, Every 4 hours, PRN for wheezing/cough/shortness of breath, # 25 each, 0 Refills, Maintenance, 06/29/22 13:08:00 EDT, Solution, [facility] #[id number], Partial fill upon patient request if the prescription is for a sched... Start Date: 06/29/22 Status: Ordered [place] Saline Mist 0.65% nasal spray 2 sprays, Nares, Both, 4 times a day, # 1 each, 0 Refills, Maintenance, 02/04/22 13:32:00 EDT, [facility] #[id number], Partial fill upon patient request if the [...] tablet, 0 Refills, Maintenance, 12/27/21 13:43:00 EDT, [facility] #[id number], 153, cm, 10/08/21 13:23:00 EDT, Height, 113.9, kg, 10/08/21 13:23:00EDT, Dry Weight Start Date: 12/27/21 Status: Ordered chlorhexidine 2% topical liquid See Instructions, 1 application to bilateral forearms twice weekly, # 120 mL, 3 Refills, Soft Stop,06/17/22 11:06:00 EST, Liquid, [facility] #[id number], Partial fill upon patient request if the prescription is for a schedule II opioid drug., 1... Start Date: 06/17/22 Status: Ordered chlorhexidine 4% topical soap See Instructions, apply topically twice weekly to skin on forearms, # 120 mL, 2 Refills, Soft Stop,06/17/22 16:03:00 EST, [facility] #[id number], Partial fill upon patient request if the prescription is for a schedule II opioid drug., apply topi... Start Date: 06/17/22 Status: Ordered clonazePAM 0.5 mg oral tablet 1 tablet = 0.5 mg, By Mouth, 4 times a day, PRN Anxiety, Patient on controlled substance contract. Please do NOT fill until 09/23/2020, # 112 tablet, 0 Refills, Maintenance, 11/18/20 21:02:00 EDT, Tablet, [facility]/pharmacy #[id number], Partial fill upon patient... Start Date: 11/18/20 Status: Ordered diclofenac 1% topical gel = 1 Gm, Topically, 4 times a day, FOR PAIN., # 100 Gm, 1 Refills, [facility], 30, APPLY 1 GM TOPICALLY 4 TIMES [...] 0 Refills, Maintenance, 12/27/22 23:09:00 EDT, Tablet, [facility] #74386, Partial fill upon patient request if the prescription is fo... Start Date: 12/27/22 Status: Ordered Estrace Vaginal Cream 0.1 mg/g = 2 Gm, Vaginally, Daily at bedtime, 2g PV daily at bedtime x 2 weeks, then 1g PV 1-3x per week, # 42.5 Gm, 5 Refills, Maintenance, 11/09/21 11:17:00 EDT, [facility] #35911, Partial fill upon patient request if the prescription is for a sche... Start Date: 11/09/21 Status: Ordered Estradiol Patch 0.0375 mg/24 hours twice weekly transdermal film, extended release See Instructions, APPLY 1 PATCH TOPICALLY TWICE WEEKLY DIRECTED, # 8 patch, 1 Refills, Maintenance, 12/28/22 13:34:00 EDT, [facility] #[id number], 28, APPLY 1 PATCH TOPICALLY TWICE WEEKLY DIRECTED, 154, cm, 10/29/22 14:42:00 EDT, Height, 10... Start Date: 12/28/22 Status: Ordered fluconazole 150 mg oral tablet 1 tablet = 150 mg, By Mouth, Once, PRN vaginal yeast infection, repeat dose in 72 hours if symptomsnot resolved, # 2 tablet, 0 Refills, Soft Stop, 11/08/22 15:31:00 EDT, Tablet, [facility]15032, Partial fill upon patient request if the pr... Start Date: 11/08/22 Status: Ordered fluticasone 50 mcg/inh nasal spray See Instructions, SHAKE LIQUID AND USE 1 SPRAY IN EACH NOSTRIL TWICE DAILY, # 16 Gm, 1 Refills, Maintenance, 05/18/22 13:57:00 EST, [facility] #[id number], 30, SHAKE LIQUID AND USE 1 SPRAY IN EACH NOSTRIL TWICE DAILY, 153, cm, 04/25/22 16:23:00 E... Start Date: 05/18/22 Status: Ordered gabapentin 800 mg oral tablet 1 tablet, By Mouth, 4 times a day, # 360 tablet, 1 Refills, Maintenance, 10/25/22 21:47:00 EDT, [facility] #[id number], 153, cm, 06/17/22 10:53:00 EST, Height, 109, [...] capsule, 1 Refills, Maintenance, 11/15/22 11:13:00 EDT, [facility] #[id number], 154, cm, 10/29/22 14:42:00 EDT, Height, 109, [...] 1 Refills, Maintenance, 04/28/22 13:51:00 EST, Tablet, [facility] #[id number], Partial fill upon patient request if the prescription is for a schedule II opioid drug., 153, cm... Start Date: 04/28/22 Status: Ordered lidocaine 4% topical cream 1 application, Topically, 3 times a day, PRN Pain , Mild, # 30 Gm, 1 Refills, Maintenance, 06/24/2315:24:00 EST, Cream, [facility] #[id number], Partial fill upon patient request if the prescription is for a schedule II opioid drug., 1 applicatio... Start Date: 06/23/22 Status: Ordered meloxicam 15 mg oral tablet 1/2 TO 1 TABLET, By Mouth, Daily, PRN NEEDED FOR MODERATE PAIN, # 30 tablet, 5 Refills, Maintenance, 01/10/22 20:40:00 EDT, [facility] #74392, 153, cm, 01/04/22 13:15:00 EDT, Height, 113.9, [...] capsule, 1 Refills, Maintenance, 07/26/22 14:24:00 EDT, [facility] #63054, 153, cm, 06/17/22 10:53:00 EST, Height, 109, kg, 06/17/22 10:53:00 EST, Dry Weight Start Date: 07/26/22 Status: Ordered ondansetron 4 mg oral tablet 1 tablet, By Mouth, Every 8 hours, PRN NEEDED FOR NAUSEA OR VOMITING, # 30 tablet, 1 Refills, Maintenance, 10/27/22 23:08:00 EDT, [facility] #[id number], 153, cm, 06/17/22 10:53:00 EST, Height, 109, kg, 06/17/22 10:53:00 EST, Dry Weight Start Date: 10/27/22 Status: Ordered oxybutynin 5 mg oral tablet 1 tablet, By Mouth, 3 times a day, # 270 tablet, 1 Refills, Maintenance, 10/04/22 20:44:00 EDT, [facility] #[id number], 153, cm, 06/17/22 10:53:00 EST, Height, 109, [...] 11/18/22 16:07:00 EDT, Route to Pharmacy Electronically, [facility] #[id number], Partial fill upon patient request if the prescrip... Start Date: 11/18/22 Status: Ordered traZODone 50 mg oral tablet 1-2 tablet, By Mouth, Daily, one hour prior to bedtime. dose increase, # 60 tablet, Refills 2, Tot.Refills 2, Maintenance, 07/01/22 14:21:00 EDT, Route to Pharmacy Electronically, [facility] #18138, Partial fill upon patient request if the... Start Date: 07/01/22 Status: Ordered triamcinolone 0.1% topical cream 1 application, Topically, 3 times a day, PRN arm rash, # 30 Gm, 1 Refills, Acute 06/08/23 9:53:00 EST, 06/08/22 9:53:00 EST, Cream, [facility] #[id number], Partial fill upon patient request if the [...] Primary Care Member Role: PCP Address: Address: [address] [place] [address]- Care Team Related Persons Name: RODOLFO SHEIKH Address: home [address] [facility] [address] [place] [address] Name: CHIARA TEE Address: home [address] [place] [address] [address] [place] [address]
--- OUTSIDE RECORDS SUMMARY | 2022-12-30 08:18 | XMS_ITS | Continuity of Care Document ---
Author Name Unknown Organization [facility] Address [address] [place] [address]- Care Team Providers Care Pulp Plant Supervisor Name Role Phone Candis CARDENAS, Kaiden Villalta Primary Care Physician [phone] [place] [facility] [place] [id number] Date(s): 09/06/22 - 10/06/22 [facility] [address] [place], [place] [address] Attending Physician: Jc Guzmán Admitting Physician: [...] 8.5 Gm,0 Refills, Maintenance, 12/22/21 10:40:00 EDT, [facility] #[id number], 2 puffs Inhalation Every 4 hours,PRN: NEEDED FOR WHEEZING/cough/shortness... Start Date: 12/22/21 Status: Ordered albuterol 0.083% inhalation solution 3 mL = 2.5 mg, Inhalation, Every 4 hours, PRN for wheezing/cough/shortness of breath, # 25 each, 0 Refills, Maintenance, 06/29/22 13:08:00 EDT, Solution, [facility] #[id number], Partial fill upon patient request if the prescription is for a sched... Start Date: 06/29/22 Status: Ordered [place] Saline Mist 0.65% nasal spray 2 sprays, Nares, Both, 4 times a day, # 1 each, 0 Refills, Maintenance, 02/04/22 13:32:00 EDT, [facility] #[id number], Partial fill upon patient request if the [...] tablet, 0 Refills, Maintenance, 12/27/21 13:43:00 EDT, [facility] #[id number], 153, cm, 10/08/21 13:23:00 EDT, Height, 113.9, kg, 10/08/21 13:23:00EDT, Dry Weight Start Date: 12/27/21 Status: Ordered chlorhexidine 2% topical liquid See Instructions, 1 application to bilateral forearms twice weekly, # 120 mL, 3 Refills, Soft Stop,06/17/22 11:06:00 EST, Liquid, [facility] #[id number], Partial fill upon patient request if the prescription is for a schedule II opioid drug., 1... Start Date: 06/17/22 Status: Ordered chlorhexidine 4% topical soap See Instructions, apply topically twice weekly to skin on forearms, # 120 mL, 2 Refills, Soft Stop,06/17/22 16:03:00 EST, [facility] #58449, Partial fill upon patient request if the [...] 21:02:00 EDT, Tablet, [facility]/pharmacy #[id number], Partial fill upon patient... Start Date: 11/18/20 Status: Ordered diclofenac 1% topical gel = 1 Gm, Topically, 4 times a day, FOR PAIN., # 100 Gm, 1 Refills, [email or web address], 30, APPLY 1 GM TOPICALLY 4 TIMES A DAY FOR PAIN, 153, cm, 06/07/21 11:07:00 EST, Height, 105, kg, 05/31/21 15:15:00 EST, Dry Weight Start Date: 08/05/21 Status: Ordered Dilaudid 2 mg oral tablet 1 tablet = 2 mg, By Mouth, 2 times a day, PRN Pain , Severe, checked masspat, # 56 tablet, 0 Refills, Maintenance, 09/28/22 9:53:00 EDT, Tablet, [facility] #18300, Partial fill upon patientrequest if the prescription is for a schedule II op... Start Date: 09/28/22 Status: Ordered Estrace Vaginal Cream 0.1 mg/g = 2 Gm, Vaginally, Daily at bedtime, 2g PV daily at bedtime x 2 weeks, then 1g PV 1-3x per week, # 42.5 Gm, 5 Refills, Maintenance, 11/09/21 11:17:00 EDT, [facility] #[id number], Partial fill upon patient request if the prescription is for a sche... Start Date: 11/09/21 Status: Ordered Estradiol Patch 0.0375 mg/24 hours twice weekly transdermal film, extended release See Instructions, APPLY 1 PATCH TOPICALLY TWICE WEEKLY DIRECTED, # 8 patch, 2 Refills, Maintenance, 09/22/22 21:55:00 EDT, [facility] #[id number], 28, APPLY 1 PATCH TOPICALLY TWICE WEEKLY DIRECTED, 153, cm, 06/17/22 10:53:00 EST, Height, 10... Start Date: 09/22/22 Status: Ordered fluconazole 150 mg oral tablet 1 tablet = 150 mg, By Mouth, Once, PRN vaginal yeast infection, # 1 tablet, 0 Refills, Soft Stop, 03/15/22 10:42:00 EST, Tablet, [facility] #[id number], Partial fill upon patient request if the prescription is for a schedule II opioid drug., 153,... Start Date: 03/15/22 Status: Ordered fluticasone 50 mcg/inh nasal spray See Instructions, SHAKE LIQUID AND USE 1 SPRAY IN EACH NOSTRIL TWICE DAILY, # 16 Gm, 1 Refills, Maintenance, 05/18/22 13:57:00 EST, [facility] #[id number], 30, SHAKE LIQUID AND USE 1 SPRAY IN EACH NOSTRIL TWICE DAILY, 153, cm, 04/25/22 16:23:00 E... Start Date: 05/18/22 Status: Ordered gabapentin 800 mg oral tablet 1 tablet, By Mouth, 4 times a day, # 360 tablet, 1 Refills, Maintenance, 04/19/22 12:59:00 EST, [facility] #59653, 153, cm, 01/04/22 13:15:00 EDT, Height, 113.9, [...] capsule, 1 Refills, Maintenance, 07/18/22 9:45:00 EDT, [facility] #[id number], 153, cm, 06/17/22 10:53:00 EST, Height, 109, [...] 1 Refills, Maintenance, 04/28/22 13:51:00 EST, Tablet, [facility] #69777, Partial fill upon patient request if the prescription is for a schedule II opioid drug., 153, cm... Start Date: 04/28/22 Status: Ordered lidocaine 4% topical cream 1 application, Topically, 3 times a day, PRN Pain , Mild, # 30 Gm, 1 Refills, Maintenance, 06/24/2315:24:00 EST, Cream, [facility] #[id number], Partial fill upon patient request if the prescription is for a schedule II opioid drug., 1 applicatio... Start Date: 06/23/22 Status: Ordered meloxicam 15 mg oral tablet 1/2 TO 1 TABLET, By Mouth, Daily, PRN NEEDED FOR MODERATE PAIN, # 30 tablet, 5 Refills, Maintenance, 01/10/22 20:40:00 EDT, [facility] #[id number], 153, cm, 01/04/22 13:15:00 EDT, Height, 113.9, [...] capsule, 1 Refills, Maintenance, 07/26/22 14:24:00 EDT, [facility] #[id number], 153, cm, 06/17/22 10:53:00 EST, Height, 109, kg, 06/17/22 10:53:00 EST, Dry Weight Start Date: 07/26/22 Status: Ordered ondansetron 4 mg oral tablet 1 tablet, By Mouth, Every 8 hours, PRN NEEDED FOR NAUSEA OR VOMITING, # 30 tablet, 1 Refills, Maintenance, 06/14/22 10:29:00 EST, [facility] #[id number], 153, cm, 06/08/22 9:37:00 EST, Height, 109, kg, 04/25/22 15:54:00 EST, Dry Weight Start Date: 06/14/22 Status: Ordered oxybutynin 5 mg oral tablet 1 tablet, By Mouth, 3 times a day, # 270 tablet, 1 Refills, Maintenance, 10/04/22 20:44:00 EDT, [facility] #[id number], 153, cm, 06/17/22 10:53:00 EST, Height, 109, [...] 07/01/22 14:21:00 EDT, Route to Pharmacy Electronically, [facility] #[id number], Partial fill upon patient request if the... Start Date: 07/01/22 Status: Ordered triamcinolone 0.1% topical cream 1 application, Topically, 3 times a day, PRN arm rash, # 30 Gm, 1 Refills, Acute 06/08/23 9:53:00 EST, 06/08/22 9:53:00 EST, Cream, [facility] #[id number], Partial fill upon patient request if the [...] 30 days ago;Never entered on: 11/09/21 Sex Cardiology * Event Display: EKG Non BH Authored Date: Laboratory * Event Display: Non Lab Results Authored Date: * Event Display: Non Lab Results Authored Date: Patient Care team information Care Team Personnel Name: Kaiden Chirinos MD Position: S Physician - Primary Care Member Role: PCP Address: Address: [address] [place] [address] Adult & [place] [address]- Care Team Related Persons Name: RODOLFO SHEIKH Address: home [address] [facility] [address] [place] [address] Name: CHIARA TEE Address: home [address] [facility] [address] [place] [address]
--- OUTSIDE RECORDS SUMMARY | 2022-12-30 08:18 | XMS_ITS | Continuity of Care Document ---
Author Name Unknown Organization [facility] Address [address] [place] [address]- Care Team Providers Care Core Maker Name Role Phone Kaiden Chirinos MD Primary Care Physician [phone] Encounter [facility] [place] Date(s): 09/30/20 - 10/30/20 [facility] [address] [place], [place] [address] Allergies, Adverse Reactions, Alerts [...] 09/07/20 11:05:00 EDT, Route to Pharmacy Electronically, [facility]/pharmacy #[id number], Partial fill upon patient request if the prescription is for a schedule II... Start Date: 09/07/20 Status: Ordered amitriptyline 10 mg oral tablet 10 mg, 1, tablet, By Mouth, Daily at bedtime, # 90 tablet, Refills 1, Tot. Refills 1, Maintenance, 09/22/20 16:39:00 EDT, Route to Pharmacy Electronically, [facility]/pharmacy #[id number], Partial fill upon patient request if the prescription is for a schedule II... Start Date: 09/22/20 Status: Ordered baclofen 10 mg oral tablet 10 mg, 1, tablet, By Mouth, 3 times a day, PRN, # 30 tablet, Refills 0, Tot. Refills 0, Maintenance, Spasm, 01/31/19 21:47:23 EDT, Route to Pharmacy Electronically, [id number], [facility]/pharmacy #[id number] Start Date: 01/31/19 Stop Date: 02/14/19 Status: Ordered clonazePAM 0.5 mg oral tablet 1 tablet = 0.5 mg, By Mouth, 4 times a day, PRN Anxiety, Patient on controlled substance contract. Please do NOT fill until 09/23/2020, # 112 tablet, 1 Refills, Maintenance, 09/22/20 16:54:00 EDT, Tablet, [facility]/pharmacy #[id number], Partial fill upon patient... Start Date: 09/22/20 [...] incontenence R32 Duration of need x 99, 10/30/20 8:54:00 EDT, Supply Start Date: 10/30/20 Status: Ordered levothyroxine 75 mcg (0.075 mg) [...] kg, 08/16... Start Date: 10/21/20 Status: Ordered ProAir HFA 90 mcg/inh inhalation aerosol 2 puffs, Inhalation, Every 4 hours, PRN as needed for wheezing, # 8.5 Gm, 0 Refills, Maintenance, 09/01/20 20:10:00 EDT, Aerosol, [facility]/pharmacy #[id number], Partial fill upon patient request [...] 1 Refills, Maintenance, 10/30/20 8:45:00 EDT, Tablet, [facility]/pharmacy #[id number], Partial fill upon patient reques... Start Date: 10/30/20 Status: Ordered traZODone 100 mg oral tablet [...]
--- OUTSIDE RECORDS SUMMARY | 2022-12-30 08:18 | XMS_ITS | Continuity of Care Document ---
Author Name Unknown Organization [facility] Address [address] [place] [address]- Care Team Providers Care Parker Name Role Phone Candis CARDENAS, Kaiden Villalta Primary Care Physician [phone] [place] [facility] [place] 07[place]/21 [facility] [address] [place], [place] [address] Allergies, Adverse Reactions, Alerts Substance Reaction [...] # 8.5 each, 0 Refills, [id number], 20, INHALE 2 PUFFS BY MOUTH EVERY 4 HOURS NEEDED FOR WHEEZING, 160, cm, 03/30/21 10:47:00 EST, Height, 104.6, kg, 12/04/20 10:52:00 EDT, Dry Weight Start Date: 04/28/21 Status: Ordered amitriptyline 10 mg oral tablet 10 mg, 1, tablet, By Mouth, Daily at bedtime, # 90 tablet, Refills 1, Tot. Refills 1, Maintenance, 07/30/21 12:25:00 EDT, Route to Pharmacy Electronically, [facility] #[id number], Partial fill upon patient request if the [...] 0 Refills, Maintenance, 11/18/20 21:02:00 EDT, Tablet, [email or web address] #0969, Partial fill upon patient... Start Date: 11/18/20 Status: Ordered Dilaudid 2 mg oral tablet 1 tablet = 2 mg, By Mouth, 2 times a day, PRN Pain , Severe, # 28 tablet, 0 Refills, Maintenance, 07/21/21 12:23:00 EDT, Tablet, [facility] #[id number], Partial fill upon patient request if the prescription is for a schedule II opioid drug., 153,... Start Date: 07/21/21 Status: Ordered Famotidine 0 Refills, Maintenance, 04/07/19 16:11:00 EST Start Date: 04/07/19 Status: Ordered gabapentin 800 mg oral tablet 1 tablet, By Mouth, 4 times a day, # 360 tablet, 1 Refills, [id number], 160, cm, 03/30/21 10:47:00 EST, Height, 104.6, [...] 1 Refills, Maintenance, 07/30/21 12:25:00 EDT, Capsule, [facility] #[id number], Partial fill upon patient request if the [...] 1 Refills, Maintenance, 07/30/21 12:25:00 EDT, Tablet, [facility] #[id number], Partial fill upon patient request if the prescription is for a schedule II opioid drug... Start Date: 07/30/21 Status: Ordered omeprazole 20 mg oral enteric coated capsule 1 capsule, By Mouth, Daily, # 90 capsule, 1 Refills, [id number], 160, cm, 03/30/21 10:47:00 EST, Height, 104.6, [...] 1 Refills, Maintenance, 07/30/21 12:25:00 EDT, Tablet, [facility] #[id number], Partial fill upon patient request if the [...] 1 Refills, Maintenance, 06/11/21 14:11:00 EST, Gel, [email or web address] #0969, Partial fill upon patient request if the prescriptionis for a schedule II opioid drug., 1 Gm Topically 4... Start Date: 06/11/21 Status: Ordered ZyrTEC 10 mg oral tablet 1 tablet = 10 mg, By Mouth, Daily, # 90 tablet, 1 Refills, Maintenance, 07/30/21 12:22:00 EDT, Tablet, [facility] #[id number], Partial fill upon patient request if the [...]
--- OUTSIDE RECORDS SUMMARY | 2022-12-30 08:18 | XMS_ITS | Continuity of Care Document ---
Author Name Unknown Organization [facility] Address [address] [place] [address]- Care Team Providers Care Doorperson Name Role Phone Kaiden Chirinos MD Primary Care Physician Encounter [facility] [place] Date(s): 12/15/20 - 01/14/21 [facility] [address] [place], [place] [address] Allergies, Adverse Reactions, Alerts Substance [...] Route to Pharmacy Electronically, [facility]/pharmacy #[id number], Partial fill upon patient request if the prescription is for a schedule II... Start Date: 12/24/20 Status: Ordered baclofen 10 mg oral tablet 10 mg, 1, tablet, By Mouth, 3 times a day, PRN, # 30 tablet, Refills 0, Tot. Refills 0, Maintenance, Spasm, 01/31/19 21:47:23 EDT, Route to Pharmacy Electronically, [id number], [facility]/pharmacy #[id number] Start Date: 01/31/19 [...] a schedule II opioid drug., 160, cm, 07... Start Date: 11/03/20 Status: Ordered Vitamin D3 [...]
--- OUTSIDE RECORDS SUMMARY | 2022-12-30 08:18 | XMS_ITS | Continuity of Care Document ---
Author Name Unknown Organization [facility] Address [address] [place] [address]- Care Team Providers Care Button Maker And Installer Name Role Phone Kaiden Chirinos MD Primary Care Physician Encounter [facility] [place] Date(s): 12/09/20 - 12/16/20 [facility] [address] [place] [address]- Encounter Diagnosis Cough(Discharge Diagnosis) - 12/09/20 Attending Physician: Salena Pinto MD Referring Physician: Kaiden Chirinos MD Allergies, [...] 09/22/20 16:39:00 EDT, Route to Pharmacy Electronically, [facility]/pharmacy #[id number], Partial fill upon patient request if the prescription is for a schedule II... Start Date: 09/22/20 Status: Ordered baclofen 10 mg oral tablet 10 mg, 1, tablet, By Mouth, 3 times a day, PRN, # 30 tablet, Refills 0, Tot. Refills 0, Maintenance, Spasm, 01/31/19 21:47:23 EDT, Route to Pharmacy Electronically, [id number], [facility]/pharmacy #[id number] Start Date: 01/31/19 Stop Date: 02/14/19 Status: Ordered clonazePAM 0.5 mg oral tablet 1 tablet = 0.5 mg, By Mouth, 4 times a day, PRN Anxiety, Patient on controlled substance contract. Please do NOT fill until 09/23/2020, # 112 tablet, 0 Refills, Maintenance, 11/18/20 21:02:00 EDT, Tablet, [facility]/pharmacy #[id number], Partial fill upon patient... Start Date: 11/18/20 Status: Ordered Famotidine 0 Refills, Maintenance, 04/07/19 16:11:00 EST Start Date: 04/07/19 Status: Ordered gabapentin 800 mg oral tablet 1 tablet = 800 mg, By Mouth, 4 times a day, # 360 tablet, 1 Refills, Maintenance, 11/09/20 23:47:00EDT, Tablet, [facility]/pharmacy #[id number], Partial fill upon [...] Refills, Maintenance, 11/05/20 11:43:00 EDT, Tablet, [facility]/pharmacy #[id number], Partial fill upon patient request if the prescription is for a schedule II opioid drug., 160, cm, 10/30/20 8:2... Start Date: 11/05/20 Status: Ordered meloxicam 15 mg oral tablet See Instructions, PRN Pain , Moderate, 0.5 to1 tab PO daily with food, # 30 capsule, 1 Refills, Maintenance, 12/04/20 11:27:00 EDT, Tablet, [facility]/pharmacy #[id number], Partial fill upon [...] cm, 09/07/20 13:05:00 EDT, Height, 107, kg, 052... Start Date: 10/21/20 Status: Ordered oxybutynin 5 mg oral tablet 1 tablet, By Mouth, 2 times a day, # 60 tablet, 1 Refills, Maintenance, 11/27/20 17:20:00 EDT, [facility], 160, cm, 10/30/20 8:28:00 EDT, Height, 105.5, [...] Diagnosis Diagnosis Type Effective Dates Health Status Clini riccardo Service Informant Cough Discharge Diagnosis 12/09/20 Social History Social History Type Response Smoking Status Former smoker, quit more than 30 days ago;Never entered on: 04/07/19 Sex
--- OUTSIDE RECORDS SUMMARY | 2022-12-30 08:18 | XMS_ITS | Continuity of Care Document ---
Author Name Unknown Organization [facility] Address [address] [place], [place] [address]sarah espana, [address] [place] [address]- Care Team Providers Care Ux Consultant Name Role Phone Candis CARDENAS, Kaiden Villalta Primary Care Physician En[place] [facility] [place] Date(s): 11/24/22 - 12/24/22 [facility] [address] [place] [address] Drive, [address] [place] [address]- Allergies, Adverse Reactions, Alerts Substance Reaction Severity [...] 8.5 Gm,0 Refills, Maintenance, 12/22/21 10:40:00 EDT, [facility] #[id number], 2 puffs Inhalation Every 4 hours,PRN: NEEDED FOR WHEEZING/cough/shortness... Start Date: 12/22/21 Status: Ordered albuterol 0.083% inhalation solution 3 mL = 2.5 mg, Inhalation, Every 4 hours, PRN for wheezing/cough/shortness of breath, # 25 each, 0 Refills, Maintenance, 06/29/22 13:08:00 EDT, Solution, [facility] #[id number], Partial fill upon patient request if the prescription is for a sched... Start Date: 06/29/22 Status: Ordered [place] Saline Mist 0.65% nasal spray 2 sprays, Nares, Both, 4 times a day, # 1 each, 0 Refills, Maintenance, 02/04/22 13:32:00 EDT, [facility] #[id number], Partial fill upon patient request if the [...] tablet, 0 Refills, Maintenance, 12/27/21 13:43:00 EDT, [facility] #[id number], 153, cm, 10/08/21 13:23:00 EDT, Height, 113.9, kg, 10/08/21 13:23:00EDT, Dry Weight Start Date: 12/27/21 Status: Ordered chlorhexidine 2% topical liquid See Instructions, 1 application to bilateral forearms twice weekly, # 120 mL, 3 Refills, Soft Stop,06/17/22 11:06:00 EST, Liquid, [facility] #[id number], Partial fill upon patient request if the prescription is for a schedule II opioid drug., 1... Start Date: 06/17/22 Status: Ordered chlorhexidine 4% topical soap See Instructions, apply topically twice weekly to skin on forearms, # 120 mL, 2 Refills, Soft Stop,06/17/22 16:03:00 EST, [facility] #[id number], Partial fill upon patient request if the [...] FOR PAIN., # 100 Gm, 1 Refills, [facility], 30, APPLY 1 GM TOPICALLY 4 TIMES A DAY FOR PAIN, 153, cm, 06/07/21 11:07:00 EST, Height, 105, kg, 05/31/21 15:15:00 EST, Dry Weight Start Date: 08/05/21 Status: Ordered Dilaudid 2 mg oral tablet 1 tablet = 2 mg, By Mouth, 2 times a day, PRN Pain , Severe, checked masspat, # 56 tablet, 0 Refills, Maintenance, 12/23/22 9:47:00 EDT, Tablet, [facility] #[id number], Partial fill upon patientrequest if the prescription is for a schedule II op... Start Date: 12/23/22 Status: Ordered Estrace Vaginal Cream 0.1 mg/g = 2 Gm, Vaginally, Daily at bedtime, 2g PV daily at bedtime x 2 weeks, then 1g PV 1-3x per week, # 42.5 Gm, 5 Refills, Maintenance, 11/09/21 11:17:00 EDT, [facility] #[id number], Partial fill upon patient request if the prescription is for a sche... Start Date: 11/09/21 Status: Ordered Estradiol Patch 0.0375 mg/24 hours twice weekly transdermal film, extended release See Instructions, APPLY 1 PATCH TOPICALLY TWICE WEEKLY DIRECTED, # 8 patch, 2 Refills, Maintenance, 09/22/22 21:55:00 EDT, [facility] #[id number], 28, APPLY 1 PATCH TOPICALLY TWICE WEEKLY DIRECTED, 153, cm, 06/17/22 10:53:00 EST, Height, 10... Start Date: 09/22/22 Status: Ordered fluconazole 150 mg oral tablet 1 tablet = 150 mg, By Mouth, Once, PRN vaginal yeast infection, repeat dose in 72 hours if symptomsnot resolved, # 2 tablet, 0 Refills, Soft Stop, 11/08/22 15:31:00 EDT, Tablet, [facility]#77343, Partial fill upon patient request if the pr... Start Date: 11/08/22 Status: Ordered fluticasone 50 mcg/inh nasal spray See Instructions, SHAKE LIQUID AND USE 1 SPRAY IN EACH NOSTRIL TWICE DAILY, # 16 Gm, 1 Refills, Maintenance, 05/18/22 13:57:00 EST, [facility] #[id number], 30, SHAKE LIQUID AND USE 1 SPRAY IN EACH NOSTRIL TWICE DAILY, 153, cm, 04/25/22 16:23:00 E... Start Date: 05/18/22 Status: Ordered gabapentin 800 mg oral tablet 1 tablet, By Mouth, 4 times a day, # 360 tablet, 1 Refills, Maintenance, 10/25/22 21:47:00 EDT, [facility] #[id number], 153, cm, 06/17/22 10:53:00 EST, Height, 109, [...] capsule, 1 Refills, Maintenance, 11/15/22 11:13:00 EDT, [facility] #[id number], 154, cm, 10/29/22 14:42:00 EDT, Height, 109, [...] 1 Refills, Maintenance, 04/28/22 13:51:00 EST, Tablet, [facility] #[id number], Partial fill upon patient request if the prescription is for a schedule II opioid drug., 153, cm... Start Date: 04/28/22 Status: Ordered lidocaine 4% topical cream 1 application, Topically, 3 times a day, PRN Pain , Mild, # 30 Gm, 1 Refills, Maintenance, 06/24/2315:24:00 EST, Cream, [facility] #97054, Partial fill upon patient request if the prescription is for a schedule II opioid drug., 1 applicatio... Start Date: 06/23/22 Status: Ordered meloxicam 15 mg oral tablet 1/2 TO 1 TABLET, By Mouth, Daily, PRN NEEDED FOR MODERATE PAIN, # 30 tablet, 5 Refills, Maintenance, 01/10/22 20:40:00 EDT, [facility] #[id number], 153, cm, 01/04/22 13:15:00 EDT, Height, 113.9, [...] capsule, 1 Refills, Maintenance, 07/26/22 14:24:00 EDT, [facility] #[id number], 153, cm, 06/17/22 10:53:00 EST, Height, 109, kg, 06/17/22 10:53:00 EST, Dry Weight Start Date: 07/26/22 Status: Ordered ondansetron 4 mg oral tablet 1 tablet, By Mouth, Every 8 hours, PRN NEEDED FOR NAUSEA OR VOMITING, # 30 tablet, 1 Refills, Maintenance, 10/27/22 23:08:00 EDT, [facility] #[id number], 153, cm, 06/17/22 10:53:00 EST, Height, 109, kg, 06/17/22 10:53:00 EST, Dry Weight Start Date: 10/27/22 Status: Ordered oxybutynin 5 mg oral tablet 1 tablet, By Mouth, 3 times a day, # 270 tablet, 1 Refills, Maintenance, 10/04/22 20:44:00 EDT, [facility] #[id number], 153, cm, 06/17/22 10:53:00 EST, Height, 109, [...] 11/18/22 16:07:00 EDT, Route to Pharmacy Electronically, [facility] #[id number], Partial fill upon patient request if the prescrip... Start Date: 11/18/22 Status: Ordered traZODone 50 mg oral tablet 1-2 tablet, By Mouth, Daily, one hour prior to bedtime. dose increase, # 60 tablet, Refills 2, Tot.Refills 2, Maintenance, 07/01/22 14:21:00 EDT, Route to Pharmacy Electronically, [facility] #[id number], Partial fill upon patient request if the... Start Date: 07/01/22 Status: Ordered triamcinolone 0.1% topical cream 1 application, Topically, 3 times a day, PRN arm rash, # 30 Gm, 1 Refills, Acute 06/08/23 9:53:00 EST, 06/08/22 9:53:00 EST, Cream, [facility] #[id number], Partial fill upon patient request if the [...] Primary Care Member Role: PCP Address: Address: [address] [place] [address] Adult & [place] [address]- Care Team Related Persons Name: RODOLFO SHEIKH Address: home [address] [facility] [address] [place] [id number] Name: CHIARA TEE Address: home [address] [place] [address] [place] [address]
--- OUTSIDE RECORDS SUMMARY | 2022-12-30 08:18 | XMS_ITS | Continuity of Care Document ---
Author Name Unknown Organization [facility] Address [address] [place] [address]- Care Team Providers Care Intern Brand Name Role Phone Kaiden Chirinos MD Primary Care Physician Encounter [facility] [place] Date(s): 11/17/20 - 12/17/20 [facility] [address] [place], [place] [address] Allergies, Adverse Reactions, Alerts Substance [...] Electronically, [facility]/pharmacy #[id number], Partial fill upon patient request if the prescription is for a schedule II... Start Date: 09/22/20 Status: Ordered baclofen 10 mg oral tablet 10 mg, 1, tablet, By Mouth, 3 times a day, PRN, # 30 tablet, Refills 0, Tot. Refills 0, Maintenance, Spasm, 01/31/19 21:47:23 EDT, Route to Pharmacy Electronically, [id number], [facility]/pharmacy #[id number] [...] Refills, Maintenance, 11/27/20 17:20:00 EDT, [facility], 160, cm, 10/30/20 8:28:00 EDT, Height, 105.5, kg, 10/30/20 8:28:00 EDT, Dry Weight Start Date: 11/27/20 Status: Ordered ProAir HFA 90 mcg/inh inhalation aerosol 2 puffs, Inhalation, Every 4 hours, PRN as needed for wheezing, # 8.5 Gm, 0 Refills, Maintenance, 11/16/20 8:39:00 EDT, Aerosol, [facility]/pharmacy #[id number], [...] Refills, Maintenance, 10/30/20 8:45:00 EDT, Tablet, [facility]/pharmacy #[id number], Partial fill upon patient reques... Start Date: 10/30/20 Status: Ordered traZODone 150 mg oral tablet 1 tablet = 150 mg, By Mouth, Daily at bedtime, dose increase, # 90 tablet, 1 Refills, Maintenance, 11/03/20 13:28:00 EDT, Tablet, [facility] [...]
--- OUTSIDE RECORDS SUMMARY | 2022-12-30 08:18 | XMS_ITS | Continuity of Care Document ---
Author Name Unknown Organization [facility] Address [address] [place], [place] [address]sarah espana, [address] [place] [address]- Care Team Providers Care Equipment Monitor Phototypesetting Name Role Phone Candis CARDENAS, Kaiden Villalta Primary Care Physician [place] [facility] [place] 04/29/22 [facility] [address] [place] [address] Drive, [address] [place] [address]- Allergies, Adverse Reactions, Alerts Substance Reaction Severity [...] 8.5 Gm,0 Refills, Maintenance, 12/22/21 10:40:00 EDT, [facility] #[id number], 2 puffs Inhalation Every 4 hours,PRN: NEEDED FOR WHEEZING/cough/shortness... Start Date: 12/22/21 Status: Ordered albuterol 0.083% inhalation solution 3 mL = 2.5 mg, Inhalation, Every 4 hours, PRN for wheezing/cough/shortness of breath, # 25 each, 0 Refills, Maintenance, 10/14/21 22:10:00 EDT, Solution, [facility] #[id number], Partial fill upon patient request if the prescription is for a sched... Start Date: 10/14/21 Status: Ordered [place] Saline Mist 0.65% nasal spray 2 sprays, Nares, Both, 4 times a day, # 1 each, 0 Refills, Maintenance, 02/04/22 13:32:00 EDT, [facility] #[id number], Partial fill upon patient request if the [...] 05/06/22 12:14:00 EST, 04/29/22 12:14:00 EST, Tablet, [facility] #[id number], Partial fill upon patient request if the prescription is for a jasmin... Start Date: 04/29/22 Stop Date: 05/06/22 Status: Ordered cetirizine 10 mg oral tablet 1 tablet, By Mouth, Daily, PRN allergies, # 90 tablet, 0 Refills, Maintenance, 12/27/21 13:43:00 EDT, [facility] #[id number], 153, cm, 10/08/21 13:23:00 EDT, Height, 113.9, kg, 10/08/21 13:23:00EDT, Dry Weight Start Date: 12/27/21 Status: Ordered clonazePAM 0.5 mg oral tablet 1 tablet = 0.5 mg, By Mouth, 4 times a day, PRN Anxiety, Patient on controlled substance contract. Please do NOT fill until 09/23/2020, # 112 tablet, 0 Refills, Maintenance, 11/18/20 21:02:00 EDT, Tablet, [facility]/pharmacy #[id number], Partial fill upon patient... Start Date: 11/18/20 Status: Ordered diclofenac 1% topical gel = 1 Gm, Topically, 4 times a day, FOR PAIN., # 100 Gm, 1 Refills, [facility], 30, APPLY 1 GM TOPICALLY 4 TIMES A DAY FOR PAIN, 153, cm, 06/07/21 11:07:00 EST, Height, 105, kg, 05/31/21 15:15:00 EST, Dry Weight Start Date: 08/05/21 Status: Ordered Dilaudid 2 mg oral tablet 1 tablet = 2 mg, By Mouth, 2 times a day, PRN Pain , Severe, checked masspat, # 56 tablet, 0 Refills, Maintenance, 04/07/22 21:32:00 EST, Tablet, [facility] #[id number], Partial fill upon patient request if the prescription is for a schedule II o... Start Date: 04/07/22 Status: Ordered doxycycline monohydrate 100 mg oral capsule 1 capsule = 100 mg, By Mouth, 2 times a day, for 10 days, take with food, # 20 capsule, 0 Refills, Acute 05/05/22 16:17:00 EST, 04/25/22 16:17:00 EST, Capsule, [facility] #[id number], Partial fill upon patient request if the prescription is for a... Start Date: 04/25/22 Stop Date: 05/05/22 Status: Ordered Estrace Vaginal Cream 0.1 mg/g = 2 Gm, Vaginally, Daily at bedtime, 2g PV daily at bedtime x 2 weeks, then 1g PV 1-3x per week, # 42.5 Gm, 5 Refills, Maintenance, 11/09/21 11:17:00 EDT, [facility] #[id number], Partial fill upon patient request if the prescription is for a sche... Start Date: 11/09/21 Status: Ordered Estradiol Patch 0.0375 mg/24 hours twice weekly transdermal film, extended release See Instructions, APPLY 1 PATCH TOPICALLY TWICE WEEKLY DIRECTED, # 8 patch, 6 Refills, Maintenance, 03/23/22 16:10:00 EST, [facility] #[id number], 28, APPLY 1 PATCH TOPICALLY TWICE WEEKLY DIRECTED, 153, cm, 01/04/22 13:15:00 EDT, Height, 11... Start Date: 03/23/22 Status: Ordered Flonase 50 mcg/inh nasal spray 1 sprays, Nares, Both, 2 times a day, # 16 Gm, 0 Refills, Maintenance, 04/19/22 14:04:00 EST, [place], [facility] #[id number], Partial fill upon patient request if the prescription is for a schedule II opioid drug., 1 sprays Nares, Both 2 times a d... Start Date: 04/19/22 Status: Ordered fluconazole 150 mg oral tablet 1 tablet = 150 mg, By Mouth, Once, PRN vaginal yeast infection, # 1 tablet, 0 Refills, Soft Stop, 03/15/22 10:42:00 EST, [facility] #[id number], Partial fill upon patient request if the prescription is for a schedule II opioid drug., 153,... Start Date: 03/15/22 Status: Ordered gabapentin 800 mg oral tablet 1 tablet, By Mouth, 4 times a day, # 360 tablet, 1 Refills, Maintenance, 04/19/22 12:59:00 [facility][id number], 153, cm, 01/04/22 13:15:00 EDT, Height, 113.9, [...] capsule, 1 Refills, Maintenance, 12/08/21 10:10:00 EDT, [facility] #[id number], 153, cm, 10/08/21 13:23:00 EDT, Height, 113.9,kg, [...] 1 Refills, Maintenance, 04/28/22 13:51:00 EST, Tablet, [facility] #43908, Partial fill upon patient request if the prescription is for a schedule II opioid drug., 153, cm... Start Date: 04/28/22 Status: Ordered lidocaine 4% topical cream 1 application, Topically, 3 times a day, PRN pain of forearms, # 30 Gm, 1 Refills, Acute 06/23/22 16:24:00 EST, 04/25/22 16:23:00 EST, Cream, [facility] #[id number], Partial fill upon patient request if the prescription is for a schedule II opioi... Start Date: 04/25/22 Stop Date: 06/23/22 Status: Ordered meloxicam 15 mg oral tablet 1/2 TO 1 TABLET, By Mouth, Daily, PRN NEEDED FOR MODERATE PAIN, # 30 tablet, 5 Refills, Maintenance, 01/10/22 20:40:00 EDT, [facility] #[id number], 153, cm, 01/04/22 13:15:00 EDT, Height, 113.9, [...] capsule, 1 Refills, Maintenance, 04/19/22 12:41:00 EST, [facility] #[id number], 153, cm, 01/04/22 13:15:00 EDT, Height, 113.9, kg, 10/08/21 13:23:00 EDT, Dry Weight Start Date: 04/19/22 Status: Ordered ondansetron 4 mg oral tablet 1 tablet, By Mouth, Every 8 hours, PRN NEEDED FOR NAUSEA OR VOMITING, # 30 tablet, 1 Refills, Maintenance, 04/14/22 21:15:00 [facility], [facility] #[id number], 153, cm, 01/04/22 13:15:00 EDT, Height, 113.9, kg, 10/08/21 13:23:00 EDT, Dry Weight Start Date: 04/14/22 Status: Ordered oxybutynin 5 mg oral tablet 1 tablet, By Mouth, 3 times a day, # 270 tablet, 1 Refills, 01/10/22 10:29:00 EDT, [facility] #[id number], 153, cm, 01/04/22 13:15:00 EDT, Height, 113.9, [...] 04/14/22 21:16:00 EST, Route to Pharmacy Electronically, [facility] #[id number], Partial fill upon patient request if the... [...] Care Physician Member Role: PCP Address: Address: [address] [place] [address] Adult & Pediatric Medicine [place], [place] [address] Care Team Related Persons Name: RODOLFO SHEIKH Address: home [address] [address] Name: CHIARA TEE Address: home [address] [place] [address]
--- OUTSIDE RECORDS SUMMARY | 2022-12-30 08:18 | XMS_ITS | Continuity of Care Document ---
Author Name Unknown Organization [facility] Address [address] [place] [address]- Care Team Providers Care Skid Road Man Name Role Phone Candis CARDENAS, Kaiden Villalta Primary Care Physician Encounter [facility] ACCT R [id number] Date(s): 09/28/22 - 10/28/22 [facility] [address] [place], [place] [address] Allergies, Adverse Reactions, Alerts Substance [...] 8.5 Gm,0 Refills, Maintenance, 12/22/21 10:40:00 EDT, [facility] #[id number], 2 puffs Inhalation Every 4 hours,PRN: NEEDED FOR WHEEZING/cough/shortness... Start Date: 12/22/21 Status: Ordered albuterol 0.083% inhalation solution 3 mL = 2.5 mg, Inhalation, Every 4 hours, PRN for wheezing/cough/shortness of breath, # 25 each, 0 Refills, Maintenance, 06/29/22 13:08:00 EDT, Solution, [facility] #[id number], Partial fill upon patient request if the prescription is for a sched... Start Date: 06/29/22 Status: Ordered [place] Saline Mist 0.65% nasal spray 2 sprays, Nares, Both, 4 times a day, # 1 each, 0 Refills, Maintenance, 02/04/22 13:32:00 EDT, [facility] #[id number], Partial fill upon patient request if the [...] tablet, 0 Refills, Maintenance, 12/27/21 13:43:00 EDT, [facility] #[id number], 153, cm, 10/08/21 13:23:00 EDT, Height, 113.9, kg, 10/08/21 13:23:00EDT, Dry Weight Start Date: 12/27/21 Status: Ordered chlorhexidine 2% topical liquid See Instructions, 1 application to bilateral forearms twice weekly, # 120 mL, 3 Refills, Soft Stop,06/17/22 11:06:00 EST, Liquid, [facility] #[id number], Partial fill upon patient request if the prescription is for a schedule II opioid drug., 1... Start Date: 06/17/22 Status: Ordered chlorhexidine 4% topical soap See Instructions, apply topically twice weekly to skin on forearms, # 120 mL, 2 Refills, Soft Stop,06/17/22 16:03:00 EST, [facility] #[id number], Partial fill upon patient request if the [...] FOR PAIN., # 100 Gm, 1 Refills, [facility], 30, APPLY 1 GM TOPICALLY 4 TIMES A DAY FOR PAIN, 153, cm, 06/07/21 11:07:00 EST, Height, 105, kg, 05/31/21 15:15:00 EST, Dry Weight Start Date: 08/05/21 Status: Ordered Dilaudid 2 mg oral tablet 1 tablet = 2 mg, By Mouth, 2 times a day, PRN Pain , Severe, checked masspat, # 56 tablet, 0 Refills, Maintenance, 10/25/22 21:47:00 EDT, Tablet, [facility] #[id number], Partial fill upon patient request if the prescription is for a schedule II o... Start Date: 10/25/22 Status: Ordered Estrace Vaginal Cream 0.1 mg/g = 2 Gm, Vaginally, Daily at bedtime, 2g PV daily at bedtime x 2 weeks, then 1g PV 1-3x per week, # 42.5 Gm, 5 Refills, Maintenance, 11/09/21 11:17:00 EDT, [facility] #[id number], Partial fill upon patient request if the prescription is for a sche... Start Date: 11/09/21 Status: Ordered Estradiol Patch 0.0375 mg/24 hours twice weekly transdermal film, extended release See Instructions, APPLY 1 PATCH TOPICALLY TWICE WEEKLY DIRECTED, # 8 patch, 2 Refills, Maintenance, 09/22/22 21:55:00 EDT, [facility] #[id number], 28, APPLY 1 PATCH TOPICALLY TWICE WEEKLY DIRECTED, 153, cm, 06/17/22 10:53:00 EST, Height, 10... Start Date: 09/22/22 Status: Ordered fluconazole 150 mg oral tablet 1 tablet = 150 mg, By Mouth, Once, PRN vaginal yeast infection, # 1 tablet, 0 Refills, Soft Stop, 03/15/22 10:42:00 EST, Tablet, [facility] #[id number], Partial fill upon patient request if the prescription is for a schedule II opioid drug., 153,... Start Date: 03/15/22 Status: Ordered fluticasone 50 mcg/inh nasal spray See Instructions, SHAKE LIQUID AND USE 1 SPRAY IN EACH NOSTRIL TWICE DAILY, # 16 Gm, 1 Refills, Maintenance, 05/18/22 13:57:00 EST, [facility] #[id number], 30, SHAKE LIQUID AND USE 1 SPRAY IN EACH NOSTRIL TWICE DAILY, 153, cm, 04/25/22 16:23:00 E... Start Date: 05/18/22 Status: Ordered gabapentin 800 mg oral tablet 1 tablet, By Mouth, 4 times a day, # 360 tablet, 1 Refills, Maintenance, 10/25/22 21:47:00 EDT, [facility] #[id number], 153, cm, 06/17/22 10:53:00 EST, Height, 109, [...] capsule, 1 Refills, Maintenance, 07/18/22 9:45:00 EDT, [facility] #[id number], 153, cm, 06/17/22 10:53:00 EST, Height, 109, kg, 06/17/22 10:53:00 EST, Dry Weight Start Date: 07/18/22 Status: Ordered hydrOXYzine pamoate 50 mg oral capsule See Instructions, TAKE 1 CAPSULE BY MOUTH THREE TIMES DAILY NEEDED FOR ITCHING, # 90 capsule, 0 Refills, Maintenance, 10/19/22 8:55:00 EDT, [facility] #[id number], 153, cm, 06/17/22 10:53:00 EST, Height, 109, kg, 06/17/22 10:53:00 EST, Dry Weight Start Date: 10/19/22 Status: Ordered Incontenence Pads, Extra Long Day [...] 1 Refills, Maintenance, 04/28/22 13:51:00 EST, Tablet, [facility] #[id number], Partial fill upon patient request if the prescription is for a schedule II opioid drug., 153, cm... Start Date: 04/28/22 Status: Ordered lidocaine 4% topical cream 1 application, Topically, 3 times a day, PRN Pain , Mild, # 30 Gm, 1 Refills, Maintenance, 06/24/2315:24:00 EST, Cream, [facility] #[id number], Partial fill upon patient request if the prescription is for a schedule II opioid drug., 1 applicatio... Start Date: 06/23/22 Status: Ordered meloxicam 15 mg oral tablet 1/2 TO 1 TABLET, By Mouth, Daily, PRN NEEDED FOR MODERATE PAIN, # 30 tablet, 5 Refills, Maintenance, 01/10/22 20:40:00 EDT, [facility] #[id number], 153, cm, 01/04/22 13:15:00 EDT, Height, 113.9, [...] capsule, 1 Refills, Maintenance, 07/26/22 14:24:00 EDT, [facility] #[id number], 153, cm, 06/17/22 10:53:00 EST, Height, 109, kg, 06/17/22 10:53:00 EST, Dry Weight Start Date: 07/26/22 Status: Ordered ondansetron 4 mg oral tablet 1 tablet, By Mouth, Every 8 hours, PRN NEEDED FOR NAUSEA OR VOMITING, # 30 tablet, 1 Refills, Maintenance, 10/27/22 23:08:00 EDT, [facility] #[id number], 153, cm, 06/17/22 10:53:00 EST, Height, 109, kg, 06/17/22 10:53:00 EST, Dry Weight Start Date: 10/27/22 Status: Ordered oxybutynin 5 mg oral tablet 1 tablet, By Mouth, 3 times a day, # 270 tablet, 1 Refills, Maintenance, 10/04/22 20:44:00 EDT, [facility] #[id number], 153, cm, 06/17/22 10:53:00 EST, Height, 109, [...] 07/01/22 14:21:00 EDT, Route to Pharmacy Electronically, [facility] #[id number], Partial fill upon patient request if the... Start Date: 07/01/22 Status: Ordered triamcinolone 0.1% topical cream 1 application, Topically, 3 times a day, PRN arm rash, # 30 Gm, 1 Refills, Acute 06/08/23 9:53:00 EST, 06/08/22 9:53:00 EST, Cream, [facility] #[id number], Partial fill upon patient request if the [...] Team Personnel Name: Kaiden Chirinos MD Position: [facility] Physician - Primary Care Member Role: PCP Address: Address: [address] [place] [address] Adult [place] [address]- [place] Care Team Related Persons Name: RODOLFO SHEIKH Address: home [address] [place] [address] Name: CHIARA TEE Address: home [address] [place] [address] [address] [place] [address]
--- OUTSIDE RECORDS SUMMARY | 2022-12-30 08:18 | XMS_ITS | Continuity of Care Document ---
Author Name Unknown Organization [facility] Address [address] [place] [address]- Care Team Providers Care Bridge Construction Inspector Name Role Phone Kaiden Chirinos MD Primary Care Physician Encounter [facility] Date(s): 11/24/20 - 12/24/20 [facility] [address] [place], [place] [address] Allergies, Adverse Reactions, Alerts Substance Reaction [...] to Pharmacy Electronically, [facility]/pharmacy #[id number], Partial fill upon patient request if the prescription is for a schedule II... Start Date: 12/24/20 Status: Ordered baclofen 10 mg oral tablet 10 mg, 1, tablet, By Mouth, 3 times a day, PRN, # 30 tablet, Refills 0, Tot. Refills 0, Maintenance, Spasm, 01/31/19 21:47:23 EDT, Route to Pharmacy Electronically, [id number], [facility]/pharmacy #[id number] Start Date: 01/31/19 Stop Date: 02/14/19 Status: Ordered clonazePAM 0.5 mg oral tablet 1 tablet = 0.5 mg, By Mouth, 4 times a day, PRN Anxiety, Patient on controlled substance contract. Please do NOT fill until 09/23/2020, # 112 tablet, 0 Refills, Maintenance, 11/18/20 21:02:00 EDT, Tablet, [facility]/pharmacy #[id number], Partial fill upon patient... Start Date: 11/18/20 Status: Ordered Famotidine 0 Refills, Maintenance, 04/07/19 16:11:00 EST Start Date: 04/07/19 Status: Ordered gabapentin 800 mg oral tablet 1 tablet = 800 mg, By Mouth, 4 times a day, # 360 tablet, 1 Refills, Maintenance, 11/09/20 23:47:00EDT, Tablet, [facility]/pharmacy #[id number], Partial [...] Maintenance, 11/16/20 8:39:00 EDT, Aerosol, [facility]/pharmacy #[id number], Partial fill [...] Maintenance, 10/30/20 8:45:00 EDT, Tablet, [facility]/pharmacy #[id number], Partial fill upon patient reques... Start Date: 10/30/20 Status: Ordered traZODone 150 mg oral tablet 1 tablet = 150 mg, By Mouth, Daily at bedtime, dose increase, # 90 tablet, 1 Refills, Maintenance, 11/03/20 13:28:00 EDT, Tablet, [facility]/pharmacy #[id number], Partial [...]
--- OUTSIDE RECORDS SUMMARY | 2022-12-30 08:18 | XMS_ITS | Continuity of Care Document ---
Author Name Unknown Organization [facility] Address [address] [place] [address]- Care Team Providers Care Systems Support Specialist Name Role Phone Candis CARDENAS, Kaiden Villalta Primary Care Physician [phone] Encounter [facility] Date(s): 03/19/21 - 04/18/21 [facility] [address] [place], [place] [address] Allergies, Adverse Reactions, Alerts Substance [...] 12/24/20 16:08:00 EDT, Route to Pharmacy Electronically, [facility]/pharmacy #[id number], Partial fill upon patient request if the prescription is for a schedule II... Start Date: 12/24/20 Status: Ordered baclofen 10 mg oral tablet 10 mg, 1, tablet, By Mouth, 3 times a day, PRN, # 30 tablet, Refills 0, Tot. Refills 0, Maintenance, Spasm, 01/31/19 21:47:23 EDT, Route to Pharmacy Electronically, [id number], [facility]/pharmacy #[id number] Start Date: 01/31/19 Stop Date: 02/14/19 Status: Ordered benzonatate 100 mg oral capsule 2 capsule, By Mouth, 3 times a day, PRN NEEDED FOR COUGH, # 30 capsule, 1 Refills, Physician Stop 03/19/22 17:38:00 EST, 02/19/22 16:55:00 EDT, [facility]/pharmacy #[id number], 160, cm, 12/04/20 10:52:00 EDT, Height, 104.6, kg, 12/04/20 10:52:00 EDT, Dry Weight Start Date: 02/19/22 Stop Date: 03/19/22 Status: Ordered benzonatate 100 mg oral capsule 2 capsule, By Mouth, 3 times a day, PRN NEEDED FOR COUGH, # 30 capsule, 1 Refills, Physician Stop 02/19/22 16:55:00 EDT, 02/19/21 16:54:00 EDT, [facility]/pharmacy #[id number], 160, cm, 12/04/20 10:52:00 EDT, Height, 104.6, kg, 12/04/20 10:52:00 EDT, Dry Weight Start Date: 02/19/21 Stop Date: 02/19/22 Status: Ordered clonazePAM 0.5 mg oral tablet 1 tablet = 0.5 mg, By Mouth, 4 times a day, PRN Anxiety, Patient on controlled substance contract. Please do NOT fill until 09/23/2020, # 112 tablet, 0 Refills, Maintenance, 11/18/20 21:02:00 EDT, Tablet, [facility]/pharmacy #[id number], Partial fill upon patient... Start Date: 11/18/20 Status: Ordered Famotidine 0 Refills, Maintenance, 04/07/19 16:11:00 EST Start Date: 04/07/19 Status: Ordered gabapentin 800 mg oral tablet 1 tablet, By Mouth, 4 times a day, # 360 tablet, 1 Refills, [facility], 160, cm, 03/30/21 10:47:00 EST, Height, 104.6, [...] 1 Refills, Maintenance, 02/25/21 8:28:00 EST, Capsule, [facility]/pharmacy #[id number], Partial fill upon patient request [...] before breakfast, # 90 tablet, 0 Refills, [facility] 09760, 160, cm, 03/30/21 10:47:00 EST, Height, 104.6, kg, 12/04/20 10:52:00 EDT, Dry Weight Start Date: 04/15/21 Status: Ordered meloxicam 15 mg oral tablet 1/2 TO 1 TABLET, By Mouth, Daily, PRN NEEDED FOR MODERATE PAIN, # 30 tablet, 1 Refills, [facility], 160, cm, 12/04/20 10:52:00 EDT, Height, 104.6, kg, 12/04/20 10:52:00 EDT, Dry Weight Start Date: 01/22/21 Status: Ordered omeprazole 20 mg oral enteric coated capsule 1 capsule, By Mouth, Daily, # 90 capsule, 1 Refills, [facility], 160, cm, 03/30/21 10:47:00 EST, Height, 104.6, kg, 12/04/20 10:52:00 EDT, Dry Weight Start Date: 03/31/21 Status: Ordered ondansetron 4 mg oral tablet See Instructions, TAKE 1 TABLET BY MOUTH EVERY 8 HOURS NEEDED FOR NAUSEA AND VOMITING, # 15 tablet, 1 Refills, Physician Stop 04/19/21 17:37:00 EST, 03/19/21 17:37:00 EST, [facility]/pharmacy #[id number], 160,cm, 12/04/20 10:52:00 EDT, Height, [...] 0 Refills, Maintenance, 11/16/20 8:39:00 EDT, Aerosol, [facility]/pharmacy #[id number], Partial fill upon patient request if the prescription is for a schedule II opioid drug., 2 puffs Inhal... Start Date: 11/16/20 Status: Ordered Qvar Redihaler 40 mcg/inh inhalation aerosol = 40 mcg, Inhalation, 2 times a day, to replace flovent rinse mouth and throat after use, # 1 each,1 Refills, Maintenance, 03/30/21 20:35:00 EST, [facility]/pharmacy #[id number], Partial fill upon patient request [...] 1 Refills, Maintenance, 04/06/21 12:26:00 EST, Tablet, [facility]/pharmacy #[id number], Partial fill upon patient request [...]
--- OUTSIDE RECORDS SUMMARY | 2022-12-30 08:18 | XMS_ITS | Continuity of Care Document ---
Author Name Unknown Organization [facility] Address [address] [place] [address]- Care Team Providers Care Top Tile Decorator Name Role Phone Kaiden Chirinos MD Primary Care Physician Encounter [facility] Date(s): 08/09/21 - 08/16/21 [facility] [address] [place], [place] [address] Encounter Diagnosis Memory deficit(Discharge Diagnosis) - 08/09/21 Empty sella turcica(Discharge Diagnosis) - 08/09/21 Bilateral primary osteoarthritis of knee(Discharge Diagnosis) - 08/09/21 Pruritic condition(Discharge Diagnosis) - 08/09/21 Attending Physician: Kaiden Chirinos MD Allergies, Adverse [...] FOR WHEEZING, # 8.5 each, 0 Refills, [id number], 20, INHALE 2 PUFFS BY MOUTH EVERY 4 HOURS NEEDED FOR WHEEZING, 160, cm, 03/30/21 10:47:00 EST, Height, 104.6, kg, 12/04/20 10:52:00 EDT, Dry Weight Start Date: 04/28/21 Status: Ordered amitriptyline 10 mg oral tablet 10 mg, 1, tablet, By Mouth, Daily at bedtime, # 90 tablet, Refills 1, Tot. Refills 1, Maintenance, 07/30/21 12:25:00 EDT, Route to Pharmacy Electronically, [facility] #[id number], Partial fill upon patient request if the prescription is for a jasmin... Start Date: 07/30/21 Status: Ordered benzonatate 100 mg oral capsule 2 capsule, By Mouth, 3 times a day, PRN NEEDED FOR COUGH, # 30 capsule, 1 Refills, Physician Stop 03/19/22 17:38:00 EST, 02/19/22 16:55:00 EDT, [facility]/pharmacy #[id number], 160, cm, 12/04/20 10:52:00 EDT, Height, 104.6, kg, 12/04/20 10:52:00 EDT, Dry Weight Start Date: 02/19/22 Stop Date: 03/19/22 Status: Ordered benzonatate 100 mg oral capsule 2 capsule, By Mouth, 3 times a day, PRN NEEDED FOR COUGH, # 30 capsule, 1 Refills, Physician Stop 02/19/22 16:55:00 EDT, 02/19/21 16:54:00 EDT, [facility]/pharmacy #[id number], 160, cm, 12/04/20 10:52:00 [...] Maintenance, 11/18/20 21:02:00 EDT, Tablet, [facility]/pharmacy #[id number], Partial fill upon patient... Start Date: 11/18/20 Status: Ordered diclofenac 1% topical gel = 1 Gm, Topically, 4 times a day, FOR PAIN., # 100 Gm, 1 Refills, [facility], 30, APPLY 1 GM TOPICALLY 4 TIMES A DAY FOR PAIN, 153, cm, 06/07/21 11:07:00 EST, Height, 105, kg, 05/31/21 15:15:00 EST, Dry Weight Start Date: 08/05/21 Status: Ordered Dilaudid 2 mg oral tablet 1 tablet = 2 mg, By Mouth, 2 times a day, PRN Pain , Severe, # 28 tablet, 0 Refills, Maintenance, 08/09/21 22:27:00 EDT, Tablet, [facility] #[id number], Partial fill upon patient request if the prescription is for a schedule II opioid drug., 153,... Start Date: 08/09/21 Status: Ordered Famotidine 0 Refills, Maintenance, 04/07/19 16:11:00 EST Start Date: 04/07/19 Status: Ordered gabapentin 800 mg oral tablet 1 tablet, By Mouth, 4 times a day, # 360 tablet, 1 Refills, [facility], 160, cm, 03/30/21 10:47:00 EST, Height, 104.6, [...] FOR ITCHING, # 90 capsule, 1 Refills, [facility], 153, cm, 06/07/21 11:07:00 EST, Height, 105, [...] 1 Refills, Maintenance, 07/30/21 12:25:00 EDT, Tablet, [facility] #07024, Partial fill upon patient request if the prescription is for a schedule II opioid drug... Start Date: 07/30/21 Status: Ordered omeprazole 20 mg oral enteric coated capsule 1 capsule, By Mouth, Daily, # 90 capsule, 1 Refills, [facility], 160, cm, 03/30/21 10:47:00 EST, Height, 104.6, kg, 12/04/20 10:52:00 EDT, Dry Weight Start Date: 03/31/21 Status: Ordered ondansetron 4 mg oral tablet 1 tablet = 4 mg, By Mouth, Every 8 hours, PRN Nausea & Vomiting, # 30 tablet, 1 Refills, Maintenance, 08/12/21 13:26:00 EDT, [facility] #[id number], 153, cm, 08/10/21 11:19:00 EDT, Height, 105, kg, 05/31/21 15:15:00 EST, Dry Weight Start Date: 08/12/21 Status: Ordered oxybutynin 5 mg oral tablet 1 tablet, By Mouth, 3 times a day, dose increase, # 270 tablet, 1 Refills, Maintenance, 03/19/21 17:40:00 EST, [facility]/pharmacy #[id number], 160, cm, 12/04/20 10:52:00 [...] 0 Refills, Maintenance, 08/13/21 16:34:00 EDT, Tablet, [facility] #[id number], Partial fill upon patient request if the prescription is for a schedule II opioid drug., 153, cm, 08/10/21 11:19:00 ED... Start Date: 08/13/21 Status: Ordered traZODone 150 mg oral tablet 1.5 tablet = 225 mg, By Mouth, Daily at bedtime, # 135 tablet, 1 Refills, Maintenance, 07/30/21 12:25:00 EDT, Tablet, [facility] #[id number], Partial fill upon patient request if the [...] 1 Refills, Maintenance, 07/30/21 12:22:00 EDT, Tablet, [facility] #[id number], Partial fill upon patient request if the [...] Clinical Service Informant Memory deficit Discharge Diagnosis 08/09/21 Empty sella turcica Discharge Diagnosis 08/09/21 Bilateral primary osteoarthritis of knee Discharge Diagnosis 08/09/21 Pruritic condition Discharge Diagnosis 08/09/21 Social History Social History Type Response Tobacco Other: 25 YRS-QUIT. Sex
--- OUTSIDE RECORDS SUMMARY | 2022-12-30 08:18 | XMS_ITS | Continuity of Care Document ---
Author Name Unknown Organization [facility] Address [address] [place] [address]- Care Team Providers Care Renewal Specialist Name Role Phone Candis CARDENAS, Kaiden Villalta Primary Care Physician [place] [facility] [place] 09/28/20 - 10/28/20 [facility] [address] [place], [place] [address] Allergies, Adverse Reactions, Alerts Substance [...] 09/07/20 11:05:00 EDT, Route to Pharmacy Electronically, [facility]/pharmacy #[id number], Partial fill upon patient request if the prescription is for a schedule II... Start Date: 09/07/20 Status: Ordered amitriptyline 10 mg oral tablet 10 mg, 1, tablet, By Mouth, Daily at bedtime, # 90 tablet, Refills 1, Tot. Refills 1, Maintenance, 09/22/20 16:39:00 EDT, Route to Pharmacy Electronically, [facility]/pharmacy #0961, Partial fill upon patient request if the prescription is for a schedule II... Start Date: 09/22/20 Status: Ordered baclofen 10 mg oral tablet 10 mg, 1, tablet, By Mouth, 3 times a day, PRN, # 30 tablet, Refills 0, Tot. Refills 0, Maintenance, Spasm, 01/31/19 21:47:23 EDT, Route to Pharmacy Electronically, [id number], [facility]/pharmacy #[id number] Start Date: 01/31/19 Stop Date: 02/14/19 Status: Ordered clonazePAM 0.5 mg oral tablet 1 tablet = 0.5 mg, By Mouth, 4 times a day, PRN Anxiety, Patient on controlled substance contract. Please do NOT fill until 09/23/2020, # 112 tablet, 1 Refills, Maintenance, 09/22/20 16:54:00 EDT, Tablet, [facility]/pharmacy #[id number], Partial fill [...] urinary incontenence R32 Duration of need: x99, 10/28/20 15:08:00 EDT, Supply Start Date: 10/28/20 Status: Ordered Incontenence Pads, Night Time Extra Long Heavy Incontenence Pads, Night Time Extra Long Heavy, See Instructions, # 90 each, Refills 11, Tot. Refills 11, Maintenance, Use for Dx: urinary incontenence R32 Duration of need x 99, 10/28/20 15:07:00 EDT, Supply Start Date: 10/28/20 Status: Ordered levothyroxine 75 mcg (0.075 mg) [...] 0 Refills, Maintenance, 09/01/20 20:10:00 EDT, Aerosol, [facility]/pharmacy #[id number], Partial fill upon patient [...] with sertraline 100mg tab in morning for [id number] per day, # 90 tablet, 1 Refills, [...]
--- OUTSIDE RECORDS SUMMARY | 2022-12-30 08:18 | XMS_ITS | Continuity of Care Document ---
Author Name Unknown Organization [facility] Address Unknown Care Team Providers Care Flight Technician Name Role Phone Kaiden Chirinos MD Primary Care Physician [phone] [place] [facility] [place]26[place]21 - 11/25/21 [facility] Attending Physician: Admtr, Ar8 Admitting Physician: Admtr, Ar8 Referring Physician: Admtr, Ar8 Allergies, Adverse Reactions, [...] 8.5 Gm,0 Refills, Maintenance, 09/28/21 16:57:00 T, [facility] #[id number], 2 puffs Inhalation Every 4 hours,PRN: NEEDED FOR WHEEZING/cough/shortness... Start Date: 09/28/21 Status: Ordered albuterol 0.083% inhalation solution 3 mL = 2.5 mg, Inhalation, Every 4 hours, PRN for wheezing/cough/shortness of breath, # 25 each, 0 Refills, Maintenance, 10/14/21 22:10:00 EDT, Solution, [facility] #[id number], Partial fill upon patient request if the prescription is for a sched... Start Date: 10/14/21 Status: Ordered Azithromycin 5 Day Dose Pack 250 mg oral tablet See Instructions, Take 2 tablets on day one. Take 1 tablet daily on Days 2-5., # 6 tablet, 0 Refills, Maintenance, 11/18/21 11:47:00 EDT, Tablet, [facility] #[id number], Partial fill upon patient request if the prescription is for a schedule II... Start Date: 11/18/21 Status: Ordered benzonatate 100 mg oral capsule 2 capsule, By Mouth, 3 times a day, PRN NEEDED FOR COUGH, # 30 capsule, 1 Refills, Physician Stop 11/10/22 14:46:00 EDT, 03/19/22 17:38:00 EST, [facility] #[id number], 153, cm, 10/08/21 13:23:00 EDT, Height, 113.9, kg, 10/08/21 13:23:00 EDT, D... Start Date: 03/19/22 Stop Date: 11/10/22 Status: Ordered budesonide 1 mg/2 mL inhalation suspension 2 mL = 1 mg, Neb, 2 times a day, rinse mouth out after use, # 120 mL, 1 Refills, Maintenance, 10/25/21 18:30:00 EDT, Suspension, [facility] #[id number], Partial fill upon patient request if the [...] FOR PAIN., # 100 Gm, 1 Refills, [id number], 30, APPLY 1 GM TOPICALLY 4 TIMES A DAY FOR PAIN, 153, cm, 06/07/21 11:07:00 EST, Height, 105, kg, 05/31/21 15:15:00 EST, Dry Weight Start Date: 08/05/21 Status: Ordered Dilaudid 2 mg oral tablet 1 tablet = 2 mg, By Mouth, 2 times a day, PRN Pain , Severe, checked masspat, # 28 tablet, 0 Refills, Maintenance, 11/23/21 16:09:00 EDT, Tablet, [facility] #[id number], Partial fill upon patient request if the prescription is for a schedule II o... Start Date: 11/23/21 Status: Ordered Estrace Vaginal Cream 0.1 mg/g = 2 Gm, Vaginally, Daily at bedtime, 2g PV daily at bedtime x 2 weeks, then 1g PV 1-3x per week, # 42.5 Gm, 5 Refills, Maintenance, 11/09/21 11:17:00 EDT, [facility] #[id number], Partial fill upon patient request if the prescription is for a sche... Start Date: 11/09/21 Status: Ordered gabapentin 800 mg oral tablet See Instructions, TAKE 1 TABLET BY MOUTH FOUR TIMES DAILY, # 360 tablet, 0 Refills, [facility] #[id number], 153, cm, 10/08/21 13:23:00 EDT, Height, 113.9, [...] capsule, 1 Refills, Maintenance, 09/28/21 16:58:00 EDT, [facility] #[id number], 153, cm, 08/10/21 11:19:00 EDT, Height, 105, [...] 1 Refills, Maintenance, 07/30/21 12:25:00 EDT, Tablet, [facility] #[id number], Partial fill upon patient request if the prescription is for a schedule II opioid drug... Start Date: 07/30/21 Status: Ordered levothyroxine 0.1 mg oral tablet 1 tablet = 100 mcg, By Mouth, Daily, dose increase, # 90 tablet, 0 Refills, Maintenance, 11/01/21 16:08:00 EDT, [facility] #[id number], Please discontinue 88ug, 153, cm, 10/08/21 13:23:00 EDT, Height, 113.9, kg, 10/08/21 13:23:00 EDT, Dry Weight Start Date: 11/01/21 Status: Ordered lidocaine 2% topical gel with applicator 5 mL = 0.1 Gm, Topically, 2 times a day, PRN Pain , Moderate, # 60 mL, 2 Refills, Soft Stop, 09/24/21 16:43:00 EDT, Gel, [facility] #[id number], Partial fill upon patient request if the prescription is for a schedule II opioid drug., 153, cm, 04/... Start Date: 09/24/21 Status: Ordered meloxicam 15 mg oral tablet 1/2 TO 1 TABLET, By Mouth, Daily, PRN NEEDED FOR MODERATE PAIN, # 30 tablet, 1 Refills, :04:00 EDT, [facility] #[id number], 153, cm, 10/08/21 13:23:00 EDT, Height, 113.9, [...] 90 capsule, 0 Refills, 09/27/21 14:31:00 EDT, [facility] #[id number], 153, cm, 08/10/21 11:19:00 EDT, Height, 105, kg, 05/31/21 15:15:00 EST, Dry Weight Start Date: 09/27/21 Status: Ordered ondansetron 4 mg oral tablet 1 tablet = 4 mg, By Mouth, Every 8 hours, PRN Nausea & Vomiting, # 30 tablet, 1 Refills, Maintenance, 11/10/21 14:47:00 EDT, [facility] #[id number], 153, cm, 10/08/21 13:23:00 EDT, Height, 113.9, kg, 10/08/21 13:23:00 EDT, Dry Weight Start Date: 11/10/21 Status: Ordered oxybutynin 5 mg oral tablet 1 tablet, By Mouth, 3 times a day, # 270 tablet, 1 Refills, [id number], 153, cm, 08/10/21 11:19:00 EDT, Height, 105, [...] 1 Refills, Maintenance, 07/30/21 12:22:00 EDT, Tablet, [facility] #[id number], Partial fill upon patient request if the [...]
--- OUTSIDE RECORDS SUMMARY | 2022-12-30 08:18 | XMS_ITS | Continuity of Care Document ---
Author Name Unknown Organization [facility] Address [address] [place] [address]- Care Team Providers Care Basting Puller Name Role Phone Kaiden Chirinos MD Primary Care Physician [phone] [place] [facility] [place]21 [facility] [address] [place], [place] [address] Allergies, Adverse Reactions, Alerts [...] # 8.5 each, 0 Refills, [id number], 20, INHALE 2 PUFFS BY MOUTH EVERY 4 HOURS NEEDED FOR WHEEZING, 160, cm, 03/30/21 10:47:00 EST, Height, 104.6, kg, 12/04/20 10:52:00 EDT, Dry Weight Start Date: 04/28/21 Status: Ordered amitriptyline 10 mg oral tablet 10 mg, 1, tablet, By Mouth, Daily at bedtime, # 90 tablet, Refills 1, Tot. Refills 1, Maintenance, 12/24/20 16:08:00 EDT, Route to Pharmacy Electronically, [facility]/pharmacy #[id number], Partial fill upon patient request if the prescription is for a schedule II... Start Date: 12/24/20 Status: Ordered baclofen 10 mg oral tablet 10 mg, 1, tablet, By Mouth, 3 times a day, PRN, # 30 tablet, Refills 0, Tot. Refills 0, Maintenance, Spasm, 01/31/19 21:47:23 EDT, Route to Pharmacy Electronically, [id number], [facility]/pharmacy #[id number] Start Date: 01/31/19 Stop Date: 02/14/19 Status: Ordered benzonatate 100 mg oral capsule 2 capsule, By Mouth, 3 times a day, PRN NEEDED FOR COUGH, # 30 capsule, 1 Refills, Physician Stop 03/19/22 17:38:00 EST, 02/19/22 16:55:00 EDT, [facility]/pharmacy #[id number], 160, cm, 12/04/20 10:52:00 EDT, Height, 104.6, kg, 12/04/20 10:52:00 EDT, Dry Weight Start Date: 02/19/22 Stop Date: 03/19/22 Status: Ordered benzonatate 100 mg oral capsule 2 capsule, By Mouth, 3 times a day, PRN NEEDED FOR COUGH, # 30 capsule, 1 Refills, Physician Stop 02/19/22 16:55:00 EDT, 02/19/21 16:54:00 EDT, [facility]/pharmacy #[id number], 160, cm, 12/04/20 10:52:00 EDT, Height, 104.6, kg, 12/04/20 10:52:00 EDT, Dry Weight Start Date: 02/19/21 Stop Date: 02/19/22 Status: Ordered clonazePAM 0.5 mg oral tablet 1 tablet = 0.5 mg, By Mouth, 4 times a day, PRN Anxiety, Patient on controlled substance contract. Please do NOT fill until 09/23/2020, # 112 tablet, 0 Refills, Maintenance, 11/18/20 21:02:00 EDT, Tablet, [facility]/pharmacy #[id number], Partial fill upon [...] # 360 tablet, 1 Refills, [id number], 160, cm, 03/30/21 10:47:00 EST, Height, 104.6, [...] 1 Refills, Maintenance, 05/14/21 15:23:00 EST, Tablet, [facility]/pharmacy #[id number], Partial fill upon patient request if the prescription is for a schedule II opioid drug., 160, c... Start Date: 05/14/21 Status: Ordered omeprazole 20 mg oral enteric coated capsule 1 capsule, By Mouth, Daily, # 90 capsule, 1 Refills, [facility] [id number], 160, cm, 03/30/21 10:47:00 EST, Height, 104.6, kg, 12/04/20 10:52:00 EDT, Dry Weight Start Date: 03/31/21 Status: Ordered ondansetron 4 mg oral tablet See Instructions, TAKE 1 TABLET BY MOUTH EVERY 8 HOURS NEEDED FOR NAUSEA AND VOMITING, # 15 tablet, 1 Refills, Physician Stop 07/12/21 15:23:00 EDT, 05/14/21 15:22:00 EST, [facility]/pharmacy #[id number], 160,cm, 03/30/21 10:47:00 EST, Height, [...] Refills, Maintenance, 06/07/21 11:39:00 EST, Gel, [id number], Partial fill upon patient request if the [...]
--- OUTSIDE RECORDS SUMMARY | 2022-12-30 08:18 | XMS_ITS | Continuity of Care Document ---
Author Name Unknown Organization [facility] Address [address] [place] [address]- Care Team Providers Care Public Health Epidemiologist Name Role Phone Candis CARDENAS, Kaiden Villalta Primary Care Physician [phone] [place] [facility] [place] 05/05/22 - 06/04/22 [facility] [address] [place], [place] [address] Allergies, Adverse Reactions, Alerts Substance [...] 8.5 Gm,0 Refills, Maintenance, 12/22/21 10:40:00 EDT, [facility] #[id number], 2 puffs Inhalation Every 4 hours,PRN: NEEDED FOR WHEEZING/cough/shortness... Start Date: 12/22/21 Status: Ordered albuterol 0.083% inhalation solution 3 mL = 2.5 mg, Inhalation, Every 4 hours, PRN for wheezing/cough/shortness of breath, # 25 each, 0 Refills, Maintenance, 10/14/21 22:10:00 EDT, Solution, [email or web address] #[id number], Partial fill upon patient request if the prescription is for a sched... Start Date: 10/14/21 Status: Ordered [place] Saline Mist 0.65% nasal spray 2 sprays, Nares, Both, 4 times a day, # 1 each, 0 Refills, Maintenance, 02/04/22 13:32:00 EDT, [facility] #[id number], Partial fill upon patient request [...] tablet, 0 Refills, Maintenance, 12/27/21 13:43:00 EDT, [facility] #[id number], 153, cm, 10/08/21 13:23:00 EDT, Height, 113.9, kg, 10/08/21 13:23:00EDT, Dry Weight Start Date: 12/27/21 Status: Ordered clonazePAM 0.5 mg oral tablet 1 tablet = 0.5 mg, By Mouth, 4 times a day, PRN Anxiety, Patient on controlled substance contract. Please do NOT fill until 09/23/2020, # 112 tablet, 0 Refills, Maintenance, 11/18/20 21:02:00 EDT, Tablet, [facility]/pharmacy #[id number], Partial fill upon patient... Start Date: 11/18/20 Status: Ordered diclofenac 1% topical gel = 1 Gm, Topically, 4 times a day, FOR PAIN., # 100 Gm, 1 Refills, [facility], 30, APPLY 1 GM TOPICALLY 4 TIMES A DAY FOR PAIN, 153, cm, 06/07/21 11:07:00 EST, Height, 105, kg, 05/31/21 15:15:00 EST, Dry Weight Start Date: 08/05/21 Status: Ordered Dilaudid 2 mg oral tablet 1 tablet = 2 mg, By Mouth, 2 times a day, PRN Pain , Severe, checked masspat, # 56 tablet, 0 Refills, Maintenance, 05/31/22 15:38:00 EST, Tablet, [facility] #[id number], Partial fill upon patient request if the prescription is for a schedule II o... Start Date: 05/31/22 Status: Ordered Estrace Vaginal Cream 0.1 mg/g = 2 Gm, Vaginally, Daily at bedtime, 2g PV daily at bedtime x 2 weeks, then 1g PV 1-3x per week, # 42.5 Gm, 5 Refills, Maintenance, 11/09/21 11:17:00 EDT, [facility] #[id number], Partial fill upon patient request if the prescription is for a sche... Start Date: 11/09/21 Status: Ordered Estradiol Patch 0.0375 mg/24 hours twice weekly transdermal film, extended release See Instructions, APPLY 1 PATCH TOPICALLY TWICE WEEKLY DIRECTED, # 8 patch, 6 Refills, Maintenance, 03/23/22 16:10:00 EST, [email or web address] #[id number], 28, APPLY 1 PATCH TOPICALLY TWICE WEEKLY DIRECTED, 153, cm, 01/04/22 13:15:00 EDT, Height, 11... Start Date: 03/23/22 Status: Ordered fluconazole 150 mg oral tablet 1 tablet = 150 mg, By Mouth, Once, PRN vaginal yeast infection, # 1 tablet, 0 Refills, Soft Stop, 03/15/22 10:42:00 EST, Tablet, [facility] #[id number], Partial fill upon patient request if the prescription is for a schedule II opioid drug., 153,... Start Date: 03/15/22 Status: Ordered fluticasone 50 mcg/inh nasal spray See Instructions, SHAKE LIQUID AND USE 1 SPRAY IN EACH NOSTRIL TWICE DAILY, # 16 Gm, 1 Refills, Maintenance, 05/18/22 13:57:00 EST, [facility] #[id number], 30, SHAKE LIQUID AND USE 1 SPRAY IN EACH NOSTRIL TWICE DAILY, 153, cm, 04/25/22 16:23:00 E... Start Date: 05/18/22 Status: Ordered gabapentin 800 mg oral tablet 1 tablet, By Mouth, 4 times a day, # 360 tablet, 1 Refills, Maintenance, 04/19/22 12:59:00 EST, [facility] #[id number], 153, cm, 01/04/22 13:15:00 EDT, Height, 113.9, [...] capsule, 1 Refills, Maintenance, 05/20/22 12:57:00 EST, [facility] #[id number], 153, cm, 04/25/22 16:23:00 EST, Height, 109, [...] 1 Refills, Maintenance, 04/28/22 13:51:00 EST, Tablet, [facility] #[id number], Partial fill upon patient request if the prescription is for a schedule II opioid drug., 153, cm... Start Date: 04/28/22 Status: Ordered lidocaine 4% topical cream 1 application, Topically, 3 times a day, PRN pain of forearms, # 30 Gm, 1 Refills, Acute 06/23/22 16:24:00 EST, 04/25/22 16:23:00 EST, Cream, [facility] #[id number], Partial fill upon patient request if the prescription is for a schedule II opioi... Start Date: 04/25/22 Stop Date: 06/23/22 Status: Ordered meloxicam 15 mg oral tablet 1/2 TO 1 TABLET, By Mouth, Daily, PRN NEEDED FOR MODERATE PAIN, # 30 tablet, 5 Refills, Maintenance, 01/10/22 20:40:00 EDT, [facility] #[id number], 153, cm, 01/04/22 13:15:00 EDT, Height, 113.9, [...] capsule, 1 Refills, Maintenance, 04/19/22 12:41:00 EST, [facility] #[id number], 153, cm, 01/04/22 13:15:00 EDT, Height, 113.9, kg, 10/08/21 13:23:00 EDT, Dry Weight Start Date: 04/19/22 Status: Ordered ondansetron 4 mg oral tablet 1 tablet, By Mouth, Every 8 hours, PRN NEEDED FOR NAUSEA OR VOMITING, # 30 tablet, 1 Refills, Maintenance, 04/14/22 21:15:00 EST, [facility] #[id number], 153, cm, 01/04/22 13:15:00 EDT, Height, 113.9, kg, 10/08/21 13:23:00 EDT, Dry Weight Start Date: 04/14/22 Status: Ordered oxybutynin 5 mg oral tablet 1 tablet, By Mouth, 3 times a day, # 270 tablet, 1 Refills, 01/10/22 10:29:00 EDT, [facility] #[id number], 153, cm, 01/04/22 13:15:00 EDT, Height, 113.9, [...] 04/14/22 21:16:00 EST, Route to Pharmacy Electronically, [email or web address] #[id number], Partial fill upon patient request if the... [...] Personnel Name: Candis CARDENAS, Kaiden Villalta Position: [facility] Primary Care Physician Member Role: PCP Address: Address: [address] [place] [address] Adult [facility] [place] [address]- Care Team Related Persons Name: RODOLFO SHEIKH Address: home [address] [facility] [address] [place] [id number] Name: CHIARA TEE Address: home [address] [place] [address] [address] [place] [id number]
--- OUTSIDE RECORDS SUMMARY | 2022-12-30 08:18 | XMS_ITS | Continuity of Care Document ---
Author Name Unknown Organization [facility] Address [address] [place] [address]- Care Team Providers Care Distillery Supervisor Name Role Phone Candis CARDENAS, Kaiden Villalta Primary Care Physician [id number] Date[facility]21[facility] - 11/20/[facility] [address] [place], [place] [address] Allergies, Adverse Reactions, [...] 8.5 Gm,0 Refills, Maintenance, 09/28/21 16:57:00 T, [facility] #[id number], 2 puffs Inhalation Every 4 hours,PRN: NEEDED FOR WHEEZING/cough/shortness... Start Date: 09/28/21 Status: Ordered albuterol 0.083% inhalation solution 3 mL = 2.5 mg, Inhalation, Every 4 hours, PRN for wheezing/cough/shortness of breath, # 25 each, 0 Refills, Maintenance, 10/14/21 22:10:00 EDT, Solution, [facility] #[id number], Partial fill upon patient request if the prescription is for a sched... Start Date: 10/14/21 Status: Ordered Azithromycin 5 Day Dose Pack 250 mg oral tablet See Instructions, Take 2 tablets on day one. Take 1 tablet daily on Days 2-5., # 6 tablet, 0 Refills, Maintenance, 11/18/21 11:47:00 EDT, Tablet, [facility] #[id number], Partial fill upon patient request if the prescription is for a schedule II... Start Date: 11/18/21 Status: Ordered benzonatate 100 mg oral capsule 2 capsule, By Mouth, 3 times a day, PRN NEEDED FOR COUGH, # 30 capsule, 1 Refills, Physician Stop 11/10/22 14:46:00 EDT, 03/19/22 17:38:00 EST, [facility] #[id number], 153, cm, 10/08/21 13:23:00 EDT, Height, 113.9, kg, 10/08/21 13:23:00 EDT, D... Start Date: 03/19/22 Stop Date: 11/10/22 Status: Ordered budesonide 1 mg/2 mL inhalation suspension 2 mL = 1 mg, Neb, 2 times a day, rinse mouth out after use, # 120 mL, 1 Refills, Maintenance, 10/25/21 18:30:00 EDT, Suspension, [facility] #[id number], Partial fill upon patient request if the [...] FOR PAIN., # 100 Gm, 1 Refills, [facility], 30, APPLY 1 GM TOPICALLY 4 TIMES A DAY FOR PAIN, 153, cm, 06/07/21 11:07:00 EST, Height, 105, kg, 05/31/21 15:15:00 EST, Dry Weight Start Date: 08/05/21 Status: Ordered Dilaudid 2 mg oral tablet 1 tablet = 2 mg, By Mouth, 2 times a day, PRN Pain , Severe, checked masspat, # 28 tablet, 0 Refills, Maintenance, 11/10/21 14:47:00 EDT, Tablet, [facility] #[id number], Partial fill upon patient request if the prescription is for a schedule II o... Start Date: 11/10/21 Status: Ordered Estrace Vaginal Cream 0.1 mg/g = 2 Gm, Vaginally, Daily at bedtime, 2g PV daily at bedtime x 2 weeks, then 1g PV 1-3x per week, # 42.5 Gm, 5 Refills, Maintenance, 11/09/21 11:17:00 EDT, [facility] #[id number], Partial fill upon patient request if the prescription is for a sche... Start Date: 11/09/21 Status: Ordered gabapentin 800 mg oral tablet See Instructions, TAKE 1 TABLET BY MOUTH FOUR TIMES DAILY, # 360 tablet, 0 Refills, [facility] #[id number], 153, cm, 10/08/21 13:23:00 EDT, Height, 113.9, [...] capsule, 1 Refills, Maintenance, 09/28/21 16:58:00 EDT, [facility] #[id number], 153, cm, 08/10/21 11:19:00 EDT, Height, 105, [...] 1 Refills, Maintenance, 07/30/21 12:25:00 EDT, Tablet, [facility] #[id number], Partial fill upon patient request if the prescription is for a schedule II opioid drug... Start Date: 07/30/21 Status: Ordered levothyroxine 0.1 mg oral tablet 1 tablet = 100 mcg, By Mouth, Daily, dose increase, # 90 tablet, 0 Refills, Maintenance, 11/01/21 16:08:00 EDT, [facility] #[id number], Please discontinue 88ug, 153, cm, 10/08/21 13:23:00 EDT, Height, 113.9, kg, 10/08/21 13:23:00 EDT, Dry Weight Start Date: 11/01/21 Status: Ordered lidocaine 2% topical gel with applicator 5 mL = 0.1 Gm, Topically, 2 times a day, PRN Pain , Moderate, # 60 mL, 2 Refills, Soft Stop, 09/24/21 16:43:00 EDT, Gel, [facility] #[id number], Partial fill upon patient request if the prescription is for a schedule II opioid drug., 153, cm, ... Start Date: 09/24/21 Status: Ordered meloxicam 15 mg oral tablet 1/2 TO 1 TABLET, By Mouth, Daily, PRN NEEDED FOR MODERATE PAIN, # 30 tablet, 1 Refills, 229:04:00 EDT, [facility] #[id number], 153, cm, 10/08/21 13:23:00 EDT, Height, 113.9, [...] 90 capsule, 0 Refills, 09/27/21 14:31:00 EDT, [facility] #[id number], 153, cm, 08/10/21 11:19:00 EDT, Height, 105, kg, 05/31/21 15:15:00 EST, Dry Weight Start Date: 09/27/21 Status: Ordered ondansetron 4 mg oral tablet 1 tablet = 4 mg, By Mouth, Every 8 hours, PRN Nausea & Vomiting, # 30 tablet, 1 Refills, Maintenance, 11/10/21 14:47:00 EDT, [facility] #[id number], 153, cm, 10/08/21 13:23:00 EDT, Height, 113.9, kg, 10/08/21 13:23:00 EDT, Dry Weight Start Date: 11/10/21 Status: Ordered oxybutynin 5 mg oral tablet 1 tablet, By Mouth, 3 times a day, # 270 tablet, 1 Refills, [facility], 153, cm, 08/10/21 11:19:00 EDT, Height, 105, [...] 1 Refills, Maintenance, 07/30/21 12:22:00 EDT, Tablet, [facility] #[id number], Partial fill upon patient request if the [...]
--- OUTSIDE RECORDS SUMMARY | 2022-12-30 08:18 | XMS_ITS | Continuity of Care Document ---
Author Name Unknown Organization [facility] Address [address] [place] [address]- Care Team Providers Care Classifier Name Role Phone Candis CARDENAS, Kaiden Villalta Primary Care Physician [place] [facility] [place]s): 02/21/22 - 03/23/22 [facility] [address] [place], [place] [address] Allergies, Adverse Reactions, Alerts Substance Reaction Severity [...] 8.5 Gm,0 Refills, Maintenance, 12/22/21 10:40:00 EDT, [facility] #[id number], 2 puffs Inhalation Every 4 hours,PRN: NEEDED FOR WHEEZING/cough/shortness... Start Date: 12/22/21 Status: Ordered albuterol 0.083% inhalation solution 3 mL = 2.5 mg, Inhalation, Every 4 hours, PRN for wheezing/cough/shortness of breath, # 25 each, 0 Refills, Maintenance, 10/14/21 22:10:00 EDT, Solution, [facility] #[id number], Partial fill upon patient request if the prescription is for a sched... Start Date: 10/14/21 Status: Ordered [place] Saline Mist 0.65% nasal spray 2 sprays, Nares, Both, 4 times a day, # 1 each, 0 Refills, Maintenance, 02/04/22 13:32:00 EDT, [facility] #[id number], Partial fill upon patient request if the [...] tablet, 0 Refills, Maintenance, 12/27/21 13:43:00 EDT, [facility] #[id number], 153, cm, 10/08/21 13:23:00 EDT, Height, 113.9, [...] # 100 Gm, 1 Refills, [id number], 30, APPLY 1 GM TOPICALLY 4 TIMES A DAY FOR PAIN, 153, cm, 06/07/21 11:07:00 EST, Height, 105, kg, 05/31/21 15:15:00 EST, Dry Weight Start Date: 08/05/21 Status: Ordered Dilaudid 2 mg oral tablet 1 tablet = 2 mg, By Mouth, 2 times a day, PRN Pain , Severe, checked masspat, # 28 tablet, 0 Refills, Maintenance, 03/23/22 22:13:00 EST, Tablet, [facility] #[id number], Partial fill upon patient request if the prescription is for a schedule II o... Start Date: 03/23/22 Status: Ordered Estrace Vaginal Cream 0.1 mg/g = 2 Gm, Vaginally, Daily at bedtime, 2g PV daily at bedtime x 2 weeks, then 1g PV 1-3x per week, # 42.5 Gm, 5 Refills, Maintenance, 11/09/21 11:17:00 EDT, [facility] #[id number], Partial fill upon patient request if the prescription is for a sche... Start Date: 11/09/21 Status: Ordered Estradiol Patch 0.0375 mg/24 hours twice weekly transdermal film, extended release See Instructions, APPLY 1 PATCH TOPICALLY TWICE WEEKLY DIRECTED, # 8 patch, 6 Refills, Maintenance, 03/23/22 16:10:00 EST, [facility] #[id number], 28, APPLY 1 PATCH TOPICALLY TWICE WEEKLY DIRECTED, 153, cm, 01/04/22 13:15:00 EDT, Height, 11... Start Date: 03/23/22 Status: Ordered fluconazole 150 mg oral tablet 1 tablet = 150 mg, By Mouth, Once, PRN vaginal yeast infection, # 1 tablet, 0 Refills, Soft Stop, 03/15/22 10:42:00 EST, Tablet, [facility] #[id number], Partial fill upon patient request if the prescription is for a schedule II opioid drug., 153,... Start Date: 03/15/22 Status: Ordered gabapentin 800 mg oral tablet See Instructions, TAKE 1 TABLET BY MOUTH FOUR TIMES DAILY, # 360 tablet, 0 Refills, [facility] #[id number], 153, cm, 10/08/21 13:23:00 EDT, Height, 113.9, [...] capsule, 1 Refills, Maintenance, 12/08/21 10:10:00 EDT, [facility] #[id number], 153, cm, 10/08/21 13:23:00 EDT, Height, 113.9,kg, [...] 1 Refills, Maintenance, 03/14/22 15:04:00 EST, Tablet, [facility] #[id number], Partial fill upon patient request if the prescription is for a schedule II opioid drug., 153, cm... Start Date: 03/14/22 Status: Ordered lidocaine 3% topical gel 1 application, Topically, 2 times a day, PRN as needed for pain, to replace 2% topical, # 28.5 Gm, 2 Refills, Acute 03/29/22 14:17:00 EST, 12/28/21 14:17:00 EDT, Gel, [facility] #[id number], Partial fill upon patient request if the prescription i... Start Date: 12/28/21 Stop Date: 03/29/22 Status: Ordered meloxicam 15 mg oral tablet 1/2 TO 1 TABLET, By Mouth, Daily, PRN NEEDED FOR MODERATE PAIN, # 30 tablet, 5 Refills, Maintenance, 01/10/22 20:40:00 EDT, [facility] #[id number], 153, cm, 01/04/22 13:15:00 EDT, Height, 113.9, [...] capsule, 0 Refills, Maintenance, 01/16/22 8:28:00 EDT, [facility] #[id number], 153, cm, 01/04/22 13:15:00 EDT, Height, 113.9, kg, 10/08/21 13:23:00 EDT, Dry Weight Start Date: 01/16/22 Status: Ordered ondansetron 4 mg oral tablet 1 tablet, By Mouth, Every 8 hours, PRN NEEDED FOR NAUSEA OR VOMITING, # 30 tablet, 0 Refills, Maintenance, 03/01/22 11:29:00 EST, [facility] #[id number], 153, cm, 01/04/22 13:15:00 EDT, Height, 113.9, kg, 10/08/21 13:23:00 EDT, Dry Weight Start Date: 03/01/22 Status: Ordered oxybutynin 5 mg oral tablet 1 tablet, By Mouth, 3 times a day, # 270 tablet, 1 Refills, 01/10/22 10:29:00 EDT, [facility] #[id number], 153, cm, 01/04/22 13:15:00 EDT, Height, 113.9, [...] 03/14/22 15:10:00 EST, Route to Pharmacy Electronically, [facility] #[id number], Partial fill upon patient request if the... [...] Team Personnel Name: Kaiden Chirinos MD Position: [facility] Primary Care Physician Member Role: PCP Address: Address: [address] [place] [address] Adult & [place] [address]- Care Team Related Persons Name: RODOLFO SHEIKH Address: home [address] [facility] [address] [place] [address] Name: CHIARA TEE Address: home [address] [place] [address] [address] [place] [address]
--- OUTSIDE RECORDS SUMMARY | 2022-12-30 08:18 | XMS_ITS | Continuity of Care Document ---
Author Name Unknown Organization [facility] Address [address] [place] [address]- Care Team Providers Care Disc Pad Grinder Name Role Phone Candis CARDENAS, Kaiden Villalta Primary Care Physician [place] [facility] [place]21 [facility] [address] [place], [place] [address] Allergies, Adverse Reactions, Alerts [...] 12/24/20 16:08:00 EDT, Route to Pharmacy Electronically, [facility]/pharmacy #[id number], Partial fill upon patient request if the prescription is for a schedule II... Start Date: 12/24/20 Status: Ordered baclofen 10 mg oral tablet 10 mg, 1, tablet, By Mouth, 3 times a day, PRN, # 30 tablet, Refills 0, Tot. Refills 0, Maintenance, Spasm, 01/31/19 21:47:23 EDT, Route to Pharmacy Electronically, [id number], [facility]/pharmacy #[id number] Start Date: 01/31/19 Stop Date: 02/14/19 Status: Ordered benzonatate 100 mg oral capsule 2 capsule, By Mouth, 3 times a day, PRN NEEDED FOR COUGH, # 30 capsule, 1 Refills, Physician Stop 02/19/22 16:55:00 EDT, 02/19/21 16:54:00 EDT, [facility]/pharmacy #[id number], 160, cm, 12/04/20 10:52:00 EDT, Height, 104.6, kg, 12/04/20 10:52:00 EDT, Dry Weight Start Date: 02/19/21 Stop Date: 02/19/22 Status: Ordered clonazePAM 0.5 mg oral tablet 1 tablet = 0.5 mg, By Mouth, 4 times a day, PRN Anxiety, Patient on controlled substance contract. Please do NOT fill until 09/23/2020, # 112 tablet, 0 Refills, Maintenance, 11/18/20 21:02:00 EDT, Tablet, [facility]/pharmacy #[id number], Partial fill upon patient... Start Date: 11/18/20 Status: Ordered Famotidine 0 Refills, Maintenance, 04/07/19 16:11:00 EST Start Date: 04/07/19 Status: Ordered gabapentin 800 mg oral tablet 1 tablet = 800 mg, By Mouth, 4 times a day, # 360 tablet, 1 Refills, Maintenance, 11/09/20 23:47:00EDT, Tablet, [facility]/pharmacy #[id number], Partial fill upon patient request if [...] 1 Refills, Maintenance, 02/25/21 8:28:00 EST, Capsule, [facility]/pharmacy #[id number], Partial fill upon patient request if the [...] 1 Refills, Maintenance, 11/05/20 11:43:00 EDT, Tablet, [facility]/pharmacy #[id number], Partial fill upon patient request if the prescription is for a schedule II opioid drug., 160, cm, 10/30/20 8:2... Start Date: 11/05/20 Status: Ordered meloxicam 15 mg oral tablet 1/2 TO 1 TABLET, By Mouth, Daily, PRN NEEDED FOR MODERATE PAIN, # 30 tablet, 1 Refills, [facility] [id number], 160, cm, 12/04/20 10:52:00 EDT, Height, 104.6, [...] # 15 tablet, 0 Refills, [id number], 160, cm, 12/04/20 10:52:00 EDT, Height, 104.6, [...] 0 Refills, Maintenance, 11/16/20 8:39:00 EDT, Aerosol, [facility]/pharmacy #[id number], Partial fill upon patient request if [...] Refills, Maintenance, 11/03/20 13:28:00 EDT, Tablet[id number], Partial fill upon patient request if the [...]
--- OUTSIDE RECORDS SUMMARY | 2022-12-30 08:19 | XMS_ITS | Continuity of Care Document ---
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 Start Date: 09/22/20 Status: Ordered baclofen 10 mg oral tablet 10 mg, 1, tablet, By Mouth, 3 times a day, PRN, # 30 tablet, Refills 0, Tot. Refills 0, Maintenance, Spasm, 01/31/19 21:47:23 EDT, Route to Pharmacy Electronically, [id number], [facility]/pharmacy #[id number] Start Date: 01/31/19 Stop Date: 02/14/19 Status: Ordered clonazePAM 0.5 mg oral tablet 1 tablet = 0.5 mg, By Mouth, 4 times a day, PRN Anxiety, Patient on controlled substance contract. Please do NOT fill until 09/23/2020, # 112 tablet, 0 Refills, Maintenance, 11/18/20 21:02:00 EDT, Tablet, [facility]/pharmacy #[id number], Partial fill upon patient... Start Date: 11/18/20 Status: Ordered Famotidine 0 Refills, Maintenance, 04/07/19 16:11:00 EST Start Date: 04/07/19 Status: Ordered gabapentin 800 mg oral tablet 1 tablet = 800 mg, By Mouth, 4 times a day, # 360 tablet, 1 Refills, Maintenance, 11/09/20 23:47:00EDT, Tablet, [facility]/pharmacy #[id number], Partial fill upon patient request if [...] 1 Refills, Maintenance, 11/05/20 11:43:00 EDT, Tablet, [facility]/pharmacy #[id number], Partial fill upon patient request if the prescription is for a schedule II opioid drug., 160, cm, 10/30/20 8:2... Start Date: 11/05/20 Status: Ordered meloxicam 15 mg oral tablet See Instructions, PRN Pain , Moderate, 0.5 to1 tab PO daily with food, # 30 capsule, 1 Refills, Maintenance, 12/04/20 11:27:00 EDT, Tablet, [facility]/pharmacy #[id number], Partial fill upon patient request if [...] Refills, Maintenance, 11/27/20 17:20:00 EDT, [id number], 160, cm, 10/30/20 8:28:00 EDT, Height, 105.5, [...]
--- OUTSIDE RECORDS SUMMARY | 2022-12-30 08:19 | XMS_ITS | Continuity of Care Document ---
Author Name Unknown Organization [facility] Address [address] [place] [address]- Care Team Providers Care Coke Oven Mason Name Role Phone Kaiden Chirinos MD [id number] [address] [place] [address]- Encounter Diagnosis Chronic cough(Discharge Diagnosis) - 10/08/21 Bilateral primary osteoarthritis of knee(Discharge Diagnosis) - 10/08/21 Morbid obesity(Discharge Diagnosis) - 10/08/21 Attending Physician: Kaiden Chirinos MD Allergies, Adverse [...] 8.5 Gm,0 Refills, Maintenance, 09/28/21 16:57:00 EDT, [facility] #[id number], 2 puffs Inhalation Every 4 hours,PRN: NEEDED FOR WHEEZING/cough/shortness... Start Date: 09/28/21 Status: Ordered albuterol 0.083% inhalation solution 3 mL = 2.5 mg, Inhalation, Every 4 hours, PRN for wheezing/cough/shortness of breath, # 25 each, 0 Refills, Maintenance, 10/14/21 22:10:00 EDT, Solution, [facility] #[id number], Partial fill upon patient request if the prescription is for a sched... Start Date: 10/14/21 Status: Ordered benzonatate 100 mg oral capsule 2 capsule, By Mouth, 3 times a day, PRN NEEDED FOR COUGH, # 30 capsule, 1 Refills, Physician Stop 03/19/22 17:38:00 EST, 02/19/22 16:55:00 EDT, [facility]/pharmacy #[id number], 160, cm, 12/04/20 10:52:00 EDT, Height, 104.6, kg, 12/04/20 10:52:00 EDT, Dry Weight Start Date: 02/19/22 Stop Date: 03/19/22 Status: Ordered benzonatate 100 mg oral capsule 2 capsule, By Mouth, 3 times a day, PRN NEEDED FOR COUGH, # 30 capsule, 1 Refills, Maintenance, 09/29/21 15:56:00 EDT, [facility] #[id number], 153, cm, 08/10/21 11:19:00 EDT, Height, 105, kg,05/31/21 15:15:00 EST, Dry Weight Start Date: 09/29/21 Status: Ordered buPROPion 150 mg/24 hours (XL) [...] 0 Refills, Maintenance, 11/18/20 21:02:00 EDT, Tablet, [facility]/pharmacy #[id number], Partial fill upon patient... Start Date: 11/18/20 Status: Ordered diclofenac 1% topical gel = 1 Gm, Topically, 4 times a day, FOR PAIN., # 100 Gm, 1 Refills, [facility], 30, APPLY 1 GM TOPICALLY 4 TIMES A DAY FOR PAIN, 153, cm, 06/07/21 11:07:00 EST, Height, 105, kg, 05/31/21 15:15:00 EST, Dry Weight Start Date: 08/05/21 Status: Ordered Dilaudid 2 mg oral tablet 1 tablet = 2 mg, By Mouth, 2 times a day, PRN Pain , Severe, checked masspat, # 28 tablet, 0 Refills, Maintenance, 10/08/21 13:52:00 EDT, Tablet, [facility] #26259, Partial fill upon patient request if the prescription is for a schedule II o... Start Date: 10/08/21 Status: Ordered Famotidine 0 Refills, Maintenance, 04/07/19 16:11:00 EST Start Date: 04/07/19 Status: Ordered fluconazole 150 mg oral tablet 1 tablet = 150 mg, By Mouth, Once, # 1 tablet, 0 Refills, Soft Stop, 09/21/21 11:15:00 EDT, Tablet,[facility] #[id number], Partial fill upon patient request if the prescription is for a schedule II opioid drug., 153, cm, 08/10/21 11:19:00 EDT, H... Start Date: 09/21/21 Status: Ordered gabapentin 800 mg oral tablet 1 tablet, By Mouth, 4 times a day, # 360 tablet, 1 Refills, [id number], 160, cm, 03/30/21 10:47:00 EST, Height, 104.6, [...] capsule, 1 Refills, Maintenance, 09/28/21 16:58:00 EDT, [facility] #[id number], 153, cm, 08/10/21 11:19:00 EDT, Height, 105, [...] 1 Refills, Maintenance, 07/30/21 12:25:00 EDT, Tablet, [facility] #[id number], Partial fill upon patient request if the prescription is for a schedule II opioid drug... Start Date: 07/30/21 Status: Ordered lidocaine 2% topical gel with applicator 5 mL = 0.1 Gm, Topically, 2 times a day, PRN Pain , Moderate, # 60 mL, 2 Refills, Soft Stop, 09/24/21 16:43:00 EDT, Gel, [facility] #[id number], Partial fill upon patient request if the prescription is for a schedule II opioid drug., 153, cm, 04/... Start Date: 09/24/21 Status: Ordered Nebulizer/Compressor See [...] 90 capsule, 0 Refills, 09/27/21 14:31:00 EDT, [facility] #[id number], 153, cm, 08/10/21 11:19:00 EDT, Height, 105, kg, 05/31/21 15:15:00 EST, Dry Weight Start Date: 09/27/21 Status: Ordered ondansetron 4 mg oral tablet 1 tablet = 4 mg, By Mouth, Every 8 hours, PRN Nausea & Vomiting, # 30 tablet, 1 Refills, Maintenance, 09/28/21 16:56:00 EDT, [facility] #[id number], 153, cm, 08/10/21 11:19:00 EDT, Height, 105, kg, 05/31/21 15:15:00 EST, Dry Weight Start Date: 09/28/21 Status: Ordered oxybutynin 5 mg oral tablet 1 tablet, By Mouth, 3 times a day, # 270 tablet, 1 Refills, [facility], 153, cm, 08/10/21 11:19:00 EDT, Height, 105, [...] milk, # 20 tablet, 0 Refills, Acute 10/22/21 13:46:00 EDT, 10/08/21 13:44:00 EDT, Tablet,... Start Date: 10/08/21 Stop Date: 10/22/21 Status: Ordered Right ankle stirrup air cast [...] 1 Refills, Maintenance, 07/30/21 12:22:00 EDT, Tablet, [facility] #[id number], Partial fill upon patient request if the [...] Effective Dates Health Status Clinical Service Informant Chronic cough Discharge Diagnosis 10/08/21 Bilateral primary osteoarthritis of knee Discharge Diagnosis 10/08/21 Morbid obesity Discharge Diagnosis 10/08/21 Vital Signs Most recent to oldest [Reference Range]: 1 Height 153 cm (10/08/21 1:23 PM) Weight 113.9 kg (10/08/21 1:23 PM) Oxygen Saturation [94-100 %] 97 % (10/08/21 1:23 PM) Pulse Rate [55-90 bpm] 82 bpm (10/08/21 1:23 PM) Body Mass Index [18.5-24.99] 48.66 *>HHI* (10/08/21 1:23 PM) Blood Pressure [90-138/55-84 mm Hg] 119/ 59mm Hg (10/08/21 1:23 PM) Temperature [96.8-100.4 DegF] 97.3 DegF (10/08/21 1:23 PM) Mode of Delivery (Oxygen) Room air (10/08/21 1:23 PM) Blood pressure sites Arm, right (10/08/21 1:23 PM) Dry Weight 113.9 kg (10/08/21 1:23 PM) Weight Obtained Via Standing scale (10/08/21 1:23 PM) Social History Social History Type Response Tobacco Other: 25 YRS-QUIT. Sex
--- OUTSIDE RECORDS SUMMARY | 2022-12-30 08:19 | XMS_ITS | Continuity of Care Document ---
Author Name Unknown Organization [facility] Address [address] [place] [address]- Care Team Providers Care Turbo Generator Oiler Name Role Phone Candis CARDENAS, Kaiden Villalta Primary Care Physician En[place] [facility] [place] Date(s): 06/27/22 - 07/27/22 [facility] [address] [place], [place] [address] Allergies, Adverse Reactions, Alerts Substance [...] 8.5 Gm,0 Refills, Maintenance, 12/22/21 10:40:00 EDT, [facility] #[id number], 2 puffs Inhalation Every 4 hours,PRN: NEEDED FOR WHEEZING/cough/shortness... Start Date: 12/22/21 Status: Ordered albuterol 0.083% inhalation solution 3 mL = 2.5 mg, Inhalation, Every 4 hours, PRN for wheezing/cough/shortness of breath, # 25 each, 0 Refills, Maintenance, 06/29/22 13:08:00 EDT, Solution, [facility] #[id number], Partial fill upon patient request if the prescription is for a sched... Start Date: 06/29/22 Status: Ordered [place] Saline Mist 0.65% nasal spray 2 sprays, Nares, Both, 4 times a day, # 1 each, 0 Refills, Maintenance, 02/04/22 13:32:00 EDT, [facility] #[id number], Partial fill upon patient request if the [...] tablet, 0 Refills, Maintenance, 12/27/21 13:43:00 EDT, [facility] #[id number], 153, cm, 10/08/21 13:23:00 EDT, Height, 113.9, kg, 10/08/21 13:23:00EDT, Dry Weight Start Date: 12/27/21 Status: Ordered chlorhexidine 2% topical liquid See Instructions, 1 application to bilateral forearms twice weekly, # 120 mL, 3 Refills, Soft Stop,06/17/22 11:06:00 EST, Liquid, [facility] #[id number], Partial fill upon patient request if the prescription is for a schedule II opioid drug., 1... Start Date: 06/17/22 Status: Ordered chlorhexidine 4% topical soap See Instructions, apply topically twice weekly to skin on forearms, # 120 mL, 2 Refills, Soft Stop,06/17/22 16:03:00 EST, [facility] #[id number], Partial fill upon patient request if the [...] FOR PAIN., # 100 Gm, 1 Refills, [facility], 30, APPLY 1 GM TOPICALLY 4 TIMES A DAY FOR PAIN, 153, cm, 06/07/21 11:07:00 EST, Height, 105, kg, 05/31/21 15:15:00 EST, Dry Weight Start Date: 08/05/21 Status: Ordered Dilaudid 2 mg oral tablet 1 tablet = 2 mg, By Mouth, 2 times a day, PRN Pain , Severe, checked masspat, # 56 tablet, 0 Refills, Maintenance, 06/27/22 21:04:00 EDT, Tablet, [facility] #[id number], Partial fill upon patient request if the prescription is for a schedule II o... Start Date: 06/27/22 Status: Ordered Estrace Vaginal Cream 0.1 mg/g = 2 Gm, Vaginally, Daily at bedtime, 2g PV daily at bedtime x 2 weeks, then 1g PV 1-3x per week, # 42.5 Gm, 5 Refills, Maintenance, 11/09/21 11:17:00 EDT, [facility] #[id number], Partial fill upon patient request if the prescription is for a sche... Start Date: 11/09/21 Status: Ordered Estradiol Patch 0.0375 mg/24 hours twice weekly transdermal film, extended release See Instructions, APPLY 1 PATCH TOPICALLY TWICE WEEKLY DIRECTED, # 8 patch, 6 Refills, Maintenance, 03/23/22 16:10:00 EST, [facility] #[id number], 28, APPLY 1 PATCH TOPICALLY TWICE WEEKLY DIRECTED, 153, cm, 01/04/22 13:15:00 EDT, Height, 11... Start Date: 03/23/22 Status: Ordered fluconazole 150 mg oral tablet 1 tablet = 150 mg, By Mouth, Once, PRN vaginal yeast infection, # 1 tablet, 0 Refills, Soft Stop, 03/15/22 10:42:00 EST, Tablet, [facility] #[id number], Partial fill upon patient request if the prescription is for a schedule II opioid drug., 153,... Start Date: 03/15/22 Status: Ordered fluticasone 50 mcg/inh nasal spray See Instructions, SHAKE LIQUID AND USE 1 SPRAY IN EACH NOSTRIL TWICE DAILY, # 16 Gm, 1 Refills, Maintenance, 05/18/22 13:57:00 EST, [facility] #[id number], 30, SHAKE LIQUID AND USE 1 SPRAY IN EACH NOSTRIL TWICE DAILY, 153, cm, 04/25/22 16:23:00 E... Start Date: 05/18/22 Status: Ordered gabapentin 800 mg oral tablet 1 tablet, By Mouth, 4 times a day, # 360 tablet, 1 Refills, Maintenance, 04/19/22 12:59:00 EST, [facility] #[id number], 153, cm, 01/04/22 13:15:00 EDT, Height, 113.9, [...] capsule, 1 Refills, Maintenance, 07/18/22 9:45:00 EDT, [facility] #[id number], 153, cm, 06/17/22 10:53:00 EST, Height, 109, [...] 1 Refills, Maintenance, 04/28/22 13:51:00 EST, Tablet, [facility] #[id number], Partial fill upon patient request if the prescription is for a schedule II opioid drug., 153, cm... Start Date: 04/28/22 Status: Ordered lidocaine 4% topical cream 1 application, Topically, 3 times a day, PRN Pain , Mild, # 30 Gm, 1 Refills, Maintenance, 06/24/2315:24:00 EST, Cream, [facility] #[id number], Partial fill upon patient request if the prescription is for a schedule II opioid drug., 1 applicatio... Start Date: 06/23/22 Status: Ordered meloxicam 15 mg oral tablet 1/2 TO 1 TABLET, By Mouth, Daily, PRN NEEDED FOR MODERATE PAIN, # 30 tablet, 5 Refills, Maintenance, 01/10/22 20:40:00 EDT, [facility] #[id number], 153, cm, 01/04/22 13:15:00 EDT, Height, 113.9, [...] capsule, 1 Refills, Maintenance, 07/26/22 14:24:00 EDT, [facility] #[id number], 153, cm, 06/17/22 10:53:00 EST, Height, 109, kg, 06/17/22 10:53:00 EST, Dry Weight Start Date: 07/26/22 Status: Ordered ondansetron 4 mg oral tablet 1 tablet, By Mouth, Every 8 hours, PRN NEEDED FOR NAUSEA OR VOMITING, # 30 tablet, 1 Refills, Maintenance, 06/14/22 10:29:00 EST, [facility] #[id number], 153, cm, 06/08/22 9:37:00 EST, Height, 109, kg, 04/25/22 15:54:00 EST, Dry Weight Start Date: 06/14/22 Status: Ordered oxybutynin 5 mg oral tablet 1 tablet, By Mouth, 3 times a day, # 270 tablet, 0 Refills, Maintenance, 07/05/22 8:13:00 EDT, [facility] #[id number], 153, cm, 06/17/22 10:53:00 EST, Height, 109, [...] 07/01/22 14:21:00 EDT, Route to Pharmacy Electronically, [facility] #[id number], Partial fill upon patient request if the... Start Date: 07/01/22 Status: Ordered triamcinolone 0.1% topical cream 1 application, Topically, 3 times a day, PRN arm rash, # 30 Gm, 1 Refills, Acute 06/08/23 9:53:00 EST, 06/08/22 9:53:00 EST, Cream, [facility] #[id number], Partial fill upon patient request if the [...] Care Physician Member Role: PCP Address: Address: [address] [place] [address] Adult & [place] [address]- Care Team Related Persons Name: RODOLFO SHEIKH Address: home [address] [facility] [address] [place] [id number] Name: CHIARA TEE Address: home [address] [facility] [address] [place] [address]
--- OUTSIDE RECORDS SUMMARY | 2022-12-30 08:19 | XMS_ITS | Continuity of Care Document ---
Author Name Unknown Organization [facility] Address [address] [place] [address]- Care Team Providers Care Heading Pinner Name Role Phone Candis CARDENAS, Kaiden Villalta Primary Care Physician [place] [facility] [place](s): 01/22/21 - 02/21/21 [facility] [address], [place] [address] Allergies, [...] 12/24/20 16:08:00 EDT, Route to Pharmacy Electronically, [facility]/pharmacy #[id number], Partial fill upon patient request if the prescription is for a schedule II... Start Date: 12/24/20 Status: Ordered baclofen 10 mg oral tablet 10 mg, 1, tablet, By Mouth, 3 times a day, PRN, # 30 tablet, Refills 0, Tot. Refills 0, Maintenance, Spasm, 01/31/19 21:47:23 EDT, Route to Pharmacy Electronically, [id number], [facility]/pharmacy #[id number] Start Date: 01/31/19 Stop Date: 02/14/19 Status: Ordered benzonatate 100 mg oral capsule 2 capsule, By Mouth, 3 times a day, PRN NEEDED FOR COUGH, # 30 capsule, 1 Refills, Physician Stop 02/19/22 16:55:00 EDT, 02/19/21 16:54:00 EDT, [facility]/pharmacy #[id number], 160, cm, 12/04/20 10:52:00 EDT, Height, 104.6, kg, 12/04/20 10:52:00 EDT, Dry Weight Start Date: 02/19/21 Stop Date: 02/19/22 Status: Ordered clonazePAM 0.5 mg oral tablet 1 tablet = 0.5 mg, By Mouth, 4 times a day, PRN Anxiety, Patient on controlled substance contract. Please do NOT fill until 09/23/2020, # 112 tablet, 0 Refills, Maintenance, 11/18/20 21:02:00 EDT, Tablet, [facility]/pharmacy #[id number], Partial fill upon patient... Start Date: 11/18/20 Status: Ordered Famotidine 0 Refills, Maintenance, 04/07/19 16:11:00 EST Start Date: 04/07/19 Status: Ordered gabapentin 800 mg oral tablet 1 tablet = 800 mg, By Mouth, 4 times a day, # 360 tablet, 1 Refills, Maintenance, 11/09/20 23:47:00EDT, Tablet, [facility]/pharmacy #[id number], Partial fill upon patient request if [...] 1 Refills, Maintenance, 11/05/20 11:43:00 EDT, Tablet, [facility]/pharmacy #[id number], Partial fill upon patient request if the prescription is for a schedule II opioid drug., 160, cm, 10/30/20 8:2... Start Date: 11/05/20 Status: Ordered meloxicam 15 mg oral tablet 1/2 TO 1 TABLET, By Mouth, Daily, PRN NEEDED FOR MODERATE PAIN, # 30 tablet, 1 Refills, [facility] STORE [id number], 160, cm, 12/04/20 10:52:00 EDT, Height, 104.6, kg, 12/04/20 10:52:00 EDT, Dry Weight Start Date: 01/22/21 Status: Ordered omeprazole 20 mg oral enteric coated capsule 1 capsule, By Mouth, Daily, # 90 capsule, 0 Refills, Maintenance, 01/14/21 13:42:00 EDT, [facility]/pharmacy #[id number], 160, cm, 12/04/20 10:52:00 EDT, Height, 104.6, kg, 12/04/20 10:52:00 EDT, Dry Weight Start Date: 01/14/21 Status: Ordered ondansetron 4 mg oral tablet See Instructions, TAKE 1 TABLET BY MOUTH EVERY 8 HOURS NEEDED FOR NAUSEA AND VOMITING, # 15 tablet, 0 Refills, [facility] STORE [id number], 160, cm, 12/04/20 10:52:00 EDT, Height, 104.6, [...]
--- OUTSIDE RECORDS SUMMARY | 2022-12-30 08:19 | XMS_ITS | Continuity of Care Document ---
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 Machine Operator Name Role Phone Kaiden Chirinos MD Primary Care Physician [phone] Encounter [facility] [place](s[place] 12/28/21 - 01/04/22 [facility] [address] [place], [place] [address] Encounter Diagnosis Viral URI with cough(Discharge Diagnosis) - 12/28/21 Chronic cough(Discharge Diagnosis) - 12/28/21 Hypothyroidism(Discharge Diagnosis) - 12/28/21 Attending Physician: Kaiden Chirinos MD Allergies, Adverse [...] 8.5 Gm,0 Refills, Maintenance, 12/22/21 10:40:00 EDT, [facility] #[id number], 2 puffs Inhalation Every 4 hours,PRN: NEEDED FOR WHEEZING/cough/shortness... Start Date: 12/22/21 Status: Ordered albuterol 0.083% inhalation solution 3 mL = 2.5 mg, Inhalation, Every 4 hours, PRN for wheezing/cough/shortness of breath, # 25 each, 0 Refills, Maintenance, 10/14/21 22:10:00 EDT, Solution, [facility] #[id number], Partial fill upon patient request if the prescription is for a sched... Start Date: 10/14/21 Status: Ordered benzonatate 100 mg oral capsule 2 capsule, By Mouth, 3 times a day, PRN NEEDED FOR COUGH, # 30 capsule, 1 Refills, Maintenance, 12/10/22 15:43:00 EDT, [facility] #[id number], 153, cm, 10/08/21 13:23:00 EDT, Height, 113.9, kg, 10/08/21 13:23:00 EDT, Dry Weight Start Date: 12/10/22 Status: Ordered benzonatate 100 mg oral capsule 2 capsule, By Mouth, 3 times a day, PRN NEEDED FOR COUGH, # 30 capsule, 1 Refills, Physician Stop 12/10/22 15:43:00 EDT, 11/10/22 14:46:00 EDT, [facility] #[id number], 153, cm, 10/08/21 13:23:00 EDT, Height, 113.9, [...] tablet, 0 Refills, Maintenance, 12/27/21 13:43:00 EDT, [facility] #[id number], 153, cm, 10/08/21 13:23:00 EDT, Height, 113.9, kg, 10/08/21 13:23:00EDT, Dry Weight Start Date: 12/27/21 Status: Ordered clonazePAM 0.5 mg oral tablet 1 tablet = 0.5 mg, By Mouth, 4 times a day, PRN Anxiety, Patient on controlled substance contract. Please do NOT fill until 09/23/2020, # 112 tablet, 0 Refills, Maintenance, 11/18/20 21:02:00 EDT, Tablet, [facility]/pharmacy #[id number], Partial fill upon patient... Start Date: 11/18/20 Status: Ordered diclofenac 1% topical gel = 1 Gm, Topically, 4 times a day, FOR PAIN., # 100 Gm, 1 Refills, [id number], 30, APPLY 1 GM TOPICALLY 4 TIMES A DAY FOR PAIN, 153, cm, 06/07/21 11:07:00 EST, Height, 105, kg, 05/31/21 15:15:00 EST, Dry Weight Start Date: 08/05/21 Status: Ordered Dilaudid 2 mg oral tablet 1 tablet = 2 mg, By Mouth, 2 times a day, PRN Pain , Severe, checked masspat, # 28 tablet, 0 Refills, Maintenance, 12/22/21 10:40:00 EDT, Tablet, [facility] #[id number], Partial fill upon patient request if the prescription is for a schedule II o... Start Date: 12/22/21 Status: Ordered Estrace Vaginal Cream 0.1 mg/g = 2 Gm, Vaginally, Daily at bedtime, 2g PV daily at bedtime x 2 weeks, then 1g PV 1-3x per week, # 42.5 Gm, 5 Refills, Maintenance, 11/09/21 11:17:00 EDT, [facility] #[id number], Partial fill upon patient request if the prescription is for a sche... Start Date: 11/09/21 Status: Ordered estradiol 0.0375 mg/24 hours twice weekly transdermal film, extended release See Instructions, 1 patch Topically, change patch twice a week, # 1 pack/packet, 1 Refills, Maintenance, 12/07/21 10:42:00 EDT, [facility] #[id number], Partial fill upon patient request if the prescription is for a schedule II opioid drug., 153,... Start Date: 12/07/21 Status: Ordered gabapentin 800 mg oral tablet See Instructions, TAKE 1 TABLET BY MOUTH FOUR TIMES DAILY, # 360 tablet, 0 Refills, [facility] #[id number], 153, cm, 10/08/21 13:23:00 EDT, Height, 113.9, [...] capsule, 1 Refills, Maintenance, 12/08/21 10:10:00 EDT, [facility] #[id number], 153, cm, 10/08/21 13:23:00 EDT, Height, 113.9,kg, [...] 1 Refills, Maintenance, 07/30/21 12:25:00 EDT, Tablet, [facility] #[id number], Partial fill upon patient request if the prescription is for a schedule II opioid drug... Start Date: 07/30/21 Status: Ordered levothyroxine 0.1 mg oral tablet 1 tablet = 100 mcg, By Mouth, Daily, dose increase, # 90 tablet, 0 Refills, Maintenance, 11/01/21 16:08:00 EDT, [facility] #[id number], Please discontinue 88ug, 153, cm, 10/08/21 13:23:00 [...] 1 Refills, Maintenance, 11/30/21 15:44:00 EDT, Tablet, [facility] #[id number], [place]... Start Date: 11/30/21 Status: Ordered lidocaine 3% topical gel 1 application, Topically, 2 times a day, PRN as needed for pain, to replace 2% topical, # 28.5 Gm, 2 Refills, Acute 03/29/22 14:17:00 EST, 12/28/21 14:17:00 EDT, Gel, [facility] #[id number], Partial fill upon patient request if the prescription i... Start Date: 12/28/21 Stop Date: 03/29/22 Status: Ordered lidocaine 4% topical cream 1 application, Topically, 2 times a day, PRN Pain , Mild, # 30 Gm, 1 Refills, Acute 01/27/22 17:31:00 EDT, 12/28/21 17:31:00 EDT, Cream, [facility] #[id number], Partial fill upon patient requestif the prescription is for a schedule II opioid cedrick... Start Date: 12/28/21 Stop Date: 01/27/22 Status: Ordered meloxicam 15 mg oral tablet 1/2 TO 1 TABLET, By Mouth, Daily, PRN NEEDED FOR MODERATE PAIN, # 30 tablet, 1 Refills, :04:00 EDT, [facility] #[id number], 153, cm, 10/08/21 13:23:00 EDT, Height, 113.9, kg, 10/08/21 13:23:00 EDT, Dry Weight Start Date: 11/16/21 Status: Ordered metroNIDAZOLE 500 mg oral tablet 1 tablet = 500 mg, By Mouth, Every 12 hours, for 7 days, do not drink alcohol, # 14 tablet, 0 Refills, Acute 01/05/22 16:58:00 EDT, 12/29/21 16:58:00 EDT, Tablet, [facility] #[id number], Partialfill upon patient request if the prescription [...] 90 capsule, 0 Refills, 09/27/21 14:31:00 EDT, [facility] #[id number], 153, cm, 08/10/21 11:19:00 EDT, Height, 105, kg, 05/31/21 15:15:00 EST, Dry Weight Start Date: 09/27/21 Status: Ordered ondansetron 4 mg oral tablet 1 tablet = 4 mg, By Mouth, Every 8 hours, PRN Nausea & Vomiting, # 30 tablet, 1 Refills, Maintenance, 11/10/21 14:47:00 EDT, [facility] #[id number], 153, cm, 10/08/21 13:23:00 EDT, Height, 113.9, kg, 10/08/21 13:23:00 EDT, Dry Weight Start Date: 11/10/21 Status: Ordered oxybutynin 5 mg oral tablet 1 tablet, By Mouth, 3 times a day, # 270 tablet, 1 Refills, [id number], 153, cm, 08/10/21 11:19:00 EDT, Height, 105, [...] 01/11/22 13:32:00 EDT, 01/04/22 13:32:00 EDT, Tablet, [facility] #[id number], Partial fill upon patient request if the [...] Effective Dates Health Status Clinical Service Informant Viral URI with cough Discharge Diagnosis 12/28/21 Chronic cough Discharge Diagnosis 12/28/21 Hypothyroidism Discharge Diagnosis 12/28/21 Social History Social History Type Response Smoking Status Former smoker, quit more than 30 days ago;Never entered on: 11/09/21 Sex Care Team Personnel Name: Candis CARDENAS, Kaiden Villalta Address: [address] [place] [address] [facility] [address]
--- OUTSIDE RECORDS SUMMARY | 2022-12-30 08:19 | XMS_ITS | Continuity of Care Document ---
Author Name Unknown Organization [facility] Address [address] [place] [address]- Care Team Providers Care Traffic Control Supervisor Name Role Phone Candis CARDENAS, Kaiden Villalta Primary Care Physician En[place] [facility] [place](s): 03/09/22 - 04/08/22 [facility] [address] [place], [place] [address] Allergies, Adverse Reactions, [...] 8.5 Gm,0 Refills, Maintenance, 12/22/21 10:40:00 EDT, [facility] #[id number], 2 puffs Inhalation Every 4 hours,PRN: NEEDED FOR WHEEZING/cough/shortness... Start Date: 12/22/21 Status: Ordered albuterol 0.083% inhalation solution 3 mL = 2.5 mg, Inhalation, Every 4 hours, PRN for wheezing/cough/shortness of breath, # 25 each, 0 Refills, Maintenance, 10/14/21 22:10:00 EDT, Solution, [facility] #[id number], Partial fill upon patient request if the prescription is for a sched... Start Date: 10/14/21 Status: Ordered [place] Saline Mist 0.65% nasal spray 2 sprays, Nares, Both, 4 times a day, # 1 each, 0 Refills, Maintenance, 02/04/22 13:32:00 EDT, [facility] #[id number], Partial fill upon patient request if the [...] tablet, 0 Refills, Maintenance, 12/27/21 13:43:00 EDT, [facility] #[id number], 153, cm, 10/08/21 13:23:00 EDT, Height, 113.9, [...] # 100 Gm, 1 Refills, [id number], 30, APPLY 1 GM TOPICALLY 4 TIMES A DAY FOR PAIN, 153, cm, 06/07/21 11:07:00 EST, Height, 105, kg, 05/31/21 15:15:00 EST, Dry Weight Start Date: 08/05/21 Status: Ordered Dilaudid 2 mg oral tablet 1 tablet = 2 mg, By Mouth, 2 times a day, PRN Pain , Severe, checked masspat, # 56 tablet, 0 Refills, Maintenance, 04/07/22 21:32:00 EST, Tablet, [facility] #[id number], Partial fill upon patient request if the prescription is for a schedule II o... Start Date: 04/07/22 Status: Ordered Estrace Vaginal Cream 0.1 mg/g = 2 Gm, Vaginally, Daily at bedtime, 2g PV daily at bedtime x 2 weeks, then 1g PV 1-3x per week, # 42.5 Gm, 5 Refills, Maintenance, 11/09/21 11:17:00 EDT, [facility] #[id number], Partial fill upon patient request if the prescription is for a sche... Start Date: 11/09/21 Status: Ordered Estradiol Patch 0.0375 mg/24 hours twice weekly transdermal film, extended release See Instructions, APPLY 1 PATCH TOPICALLY TWICE WEEKLY DIRECTED, # 8 patch, 6 Refills, Maintenance, 03/23/22 16:10:00 EST, [facility] #[id number], 28, APPLY 1 PATCH TOPICALLY TWICE WEEKLY DIRECTED, 153, cm, 01/04/22 13:15:00 EDT, Height, 11... Start Date: 03/23/22 Status: Ordered fluconazole 150 mg oral tablet 1 tablet = 150 mg, By Mouth, Once, PRN vaginal yeast infection, # 1 tablet, 0 Refills, Soft Stop, 03/15/22 10:42:00 EST, Tablet, [facility] #[id number], Partial fill upon patient request if the prescription is for a schedule II opioid drug., 153,... Start Date: 03/15/22 Status: Ordered gabapentin 800 mg oral tablet See Instructions, TAKE 1 TABLET BY MOUTH FOUR TIMES DAILY, # 360 tablet, 0 Refills, [facility] #[id number], 153, cm, 10/08/21 13:23:00 EDT, Height, 113.9, [...] capsule, 1 Refills, Maintenance, 12/08/21 10:10:00 EDT, [facility] #[id number], 153, cm, 10/08/21 13:23:00 EDT, Height, 113.9,kg, [...] 1 Refills, Maintenance, 03/14/22 15:04:00 EST, Tablet, [facility] #[id number], Partial fill upon patient request if the prescription is for a schedule II opioid drug., 153, cm... Start Date: 03/14/22 Status: Ordered meloxicam 15 mg oral tablet 1/2 TO 1 TABLET, By Mouth, Daily, PRN NEEDED FOR MODERATE PAIN, # 30 tablet, 5 Refills, Maintenance, 01/10/22 20:40:00 EDT, [facility] #[id number], 153, cm, 01/04/22 13:15:00 EDT, Height, 113.9, [...] capsule, 0 Refills, Maintenance, 01/16/22 8:28:00 EDT, [facility] #[id number], 153, cm, 01/04/22 13:15:00 EDT, Height, 113.9, kg, 10/08/21 13:23:00 EDT, Dry Weight Start Date: 01/16/22 Status: Ordered ondansetron 4 mg oral tablet 1 tablet, By Mouth, Every 8 hours, PRN NEEDED FOR NAUSEA OR VOMITING, # 30 tablet, 0 Refills, Maintenance, 03/01/22 11:29:00 EST, [facility] #[id number], 153, cm, 01/04/22 13:15:00 EDT, Height, 113.9, kg, 10/08/21 13:23:00 EDT, Dry Weight Start Date: 03/01/22 Status: Ordered oxybutynin 5 mg oral tablet 1 tablet, By Mouth, 3 times a day, # 270 tablet, 1 Refills, 01/10/22 10:29:00 EDT, [facility] #[id number], 153, cm, 01/04/22 13:15:00 EDT, Height, 113.9, [...] 03/14/22 15:10:00 EST, Route to Pharmacy Electronically, [facility] #[id number], Partial fill upon patient request if the... [...] team information Care Team Personnel Name: Kaiden Cihrinos MD Position: S Primary Care Physician Member Role: PCP Address: Address: [address] [place] [address] Adult [place] [address]- Care Team Related Persons Name: RODOLFO SHEIKH Address: home [address] [facility] [address] [place] [id number] Name: CHIARA TEE Address: home [address] [place] [address] [address] [place] [id number]
--- OUTSIDE RECORDS SUMMARY | 2022-12-30 08:19 | XMS_ITS | Continuity of Care Document ---
Author Name Unknown Organization [facility] Address [address] [place] [address] [address], [address] [place] [address]- Care Team Providers Care Press Operator Assistant Name Role Phone Candis CARDENAS, Kaiden Villalta Primary Care Physician [phone] Encounter [facility] [place] Date(s): 10/26/22 - 11/25/22 [facility] [address] [place] [address], [address] [place] [address]- Allergies, Adverse Reactions, Alerts Substance Reaction Severity [...] 8.5 Gm,0 Refills, Maintenance, 12/22/21 10:40:00 EDT, [facility] #[id number], 2 puffs Inhalation Every 4 hours,PRN: NEEDED FOR WHEEZING/cough/shortness... Start Date: 12/22/21 Status: Ordered albuterol 0.083% inhalation solution 3 mL = 2.5 mg, Inhalation, Every 4 hours, PRN for wheezing/cough/shortness of breath, # 25 each, 0 Refills, Maintenance, 06/29/22 13:08:00 EDT, Solution, [facility] #[id number], Partial fill upon patient request if the prescription is for a sched... Start Date: 06/29/22 Status: Ordered [place] Saline Mist 0.65% nasal spray 2 sprays, Nares, Both, 4 times a day, # 1 each, 0 Refills, Maintenance, 02/04/22 13:32:00 EDT, [facility] #[id number], Partial fill upon patient request if the [...] tablet, 0 Refills, Maintenance, 12/27/21 13:43:00 EDT, [facility] #[id number], 153, cm, 10/08/21 13:23:00 EDT, Height, 113.9, kg, 10/08/21 13:23:00EDT, Dry Weight Start Date: 12/27/21 Status: Ordered chlorhexidine 2% topical liquid See Instructions, 1 application to bilateral forearms twice weekly, # 120 mL, 3 Refills, Soft Stop,06/17/22 11:06:00 EST, Liquid, [facility] #[id number], Partial fill upon patient request if the prescription is for a schedule II opioid drug., 1... Start Date: 06/17/22 Status: Ordered chlorhexidine 4% topical soap See Instructions, apply topically twice weekly to skin on forearms, # 120 mL, 2 Refills, Soft Stop,06/17/22 16:03:00 EST, [facility] #[id number], Partial fill upon patient request if the prescription is for a schedule II opioid drug., apply topi... Start Date: 06/17/22 Status: Ordered clonazePAM 0.5 mg oral tablet 1 tablet = 0.5 mg, By Mouth, 4 times a day, PRN Anxiety, Patient on controlled substance contract. Please do NOT fill until 09/23/2020, # 112 tablet, 0 Refills, Maintenance, 11/18/20 21:02:00 EDT, Tablet, [facility]/pharmacy #[id number], Partial fill upon patient... Start Date: 11/18/20 Status: Ordered diclofenac 1% topical gel = 1 Gm, Topically, 4 times a day, FOR PAIN., # 100 Gm, 1 Refills, [facility] 144[facility], 30, APPLY 1 GM TOPICALLY 4 TIMES A DAY FOR PAIN, 153, cm, 06/07/21 11:07:00 EST, Height, 105, kg, 05/31/21 15:15:00 EST, Dry Weight Start Date: 08/05/21 Status: Ordered Dilaudid 2 mg oral tablet 1 tablet = 2 mg, By Mouth, 2 times a day, PRN Pain , Severe, checked masspat, # 56 tablet, 0 Refills, Maintenance, 10/25/22 21:47:00 EDT, Tablet, [facility] #[id number], Partial fill upon patient request if the prescription is for a schedule II o... Start Date: 10/25/22 Status: Ordered Estrace Vaginal Cream 0.1 mg/g = 2 Gm, Vaginally, Daily at bedtime, 2g PV daily at bedtime x 2 weeks, then 1g PV 1-3x per week, # 42.5 Gm, 5 Refills, Maintenance, 11/09/21 11:17:00 EDT, [facility] #[id number], Partial fill upon patient request if the prescription is for a sche... Start Date: 11/09/21 Status: Ordered Estradiol Patch 0.0375 mg/24 hours twice weekly transdermal film, extended release See Instructions, APPLY 1 PATCH TOPICALLY TWICE WEEKLY DIRECTED, # 8 patch, 2 Refills, Maintenance, 09/22/22 21:55:00 EDT, [facility] #[id number], 28, APPLY 1 PATCH TOPICALLY TWICE WEEKLY DIRECTED, 153, cm, 06/17/22 10:53:00 EST, Height, 10... Start Date: 09/22/22 Status: Ordered fluconazole 150 mg oral tablet 1 tablet = 150 mg, By Mouth, Once, PRN vaginal yeast infection, repeat dose in 72 hours if symptomsnot resolved, # 2 tablet, 0 Refills, Soft Stop, 11/08/22 15:31:00 EDT, Tablet, [facility]#[id number], Partial fill upon patient request if the pr... Start Date: 11/08/22 Status: Ordered fluticasone 50 mcg/inh nasal spray See Instructions, SHAKE LIQUID AND USE 1 SPRAY IN EACH NOSTRIL TWICE DAILY, # 16 Gm, 1 Refills, Maintenance, 05/18/22 13:57:00 EST, [facility] #[id number], 30, SHAKE LIQUID AND USE 1 SPRAY IN EACH NOSTRIL TWICE DAILY, 153, cm, 04/25/22 16:23:00 E... Start Date: 05/18/22 Status: Ordered gabapentin 800 mg oral tablet 1 tablet, By Mouth, 4 times a day, # 360 tablet, 1 Refills, Maintenance, 10/25/22 21:47:00 EDT, [facility] #[id number], 153, cm, 06/17/22 10:53:00 EST, Height, 109, [...] capsule, 1 Refills, Maintenance, 11/15/22 11:13:00 EDT, [facility] #[id number], 154, cm, 10/29/22 14:42:00 EDT, Height, 109, [...] 1 Refills, Maintenance, 04/28/22 13:51:00 EST, Tablet, [facility] #[id number], Partial fill upon patient request if the prescription is for a schedule II opioid drug., 153, cm... Start Date: 04/28/22 Status: Ordered lidocaine 4% topical cream 1 application, Topically, 3 times a day, PRN Pain , Mild, # 30 Gm, 1 Refills, Maintenance, 06/24/2315:24:00 EST, Cream, [facility] #[id number], Partial fill upon patient request if the prescription is for a schedule II opioid drug., 1 applicatio... Start Date: 06/23/22 Status: Ordered meloxicam 15 mg oral tablet 1/2 TO 1 TABLET, By Mouth, Daily, PRN NEEDED FOR MODERATE PAIN, # 30 tablet, 5 Refills, Maintenance, 01/10/22 20:40:00 EDT, [facility] #[id number], 153, cm, 01/04/22 13:15:00 EDT, Height, 113.9, [...] capsule, 1 Refills, Maintenance, 07/26/22 14:24:00 EDT, [facility] #[id number], 153, cm, 06/17/22 10:53:00 EST, Height, 109, kg, 06/17/22 10:53:00 EST, Dry Weight Start Date: 07/26/22 Status: Ordered ondansetron 4 mg oral tablet 1 tablet, By Mouth, Every 8 hours, PRN NEEDED FOR NAUSEA OR VOMITING, # 30 tablet, 1 Refills, Maintenance, 10/27/22 23:08:00 EDT, [facility] #[id number], 153, cm, 06/17/22 10:53:00 EST, Height, 109, kg, 06/17/22 10:53:00 EST, Dry Weight Start Date: 10/27/22 Status: Ordered oxybutynin 5 mg oral tablet 1 tablet, By Mouth, 3 times a day, # 270 tablet, 1 Refills, Maintenance, 10/04/22 20:44:00 EDT, [facility] #[id number], 153, cm, 06/17/22 10:53:00 EST, Height, 109, [...] 11/18/22 16:07:00 EDT, Route to Pharmacy Electronically, [facility] #[id number], Partial fill upon patient request if the prescrip... Start Date: 11/18/22 Status: Ordered traZODone 50 mg oral tablet 1-2 tablet, By Mouth, Daily, one hour prior to bedtime. dose increase, # 60 tablet, Refills 2, Tot.Refills 2, Maintenance, 07/01/22 14:21:00 EDT, Route to Pharmacy Electronically, [facility] #[id number], Partial fill upon patient request if the... Start Date: 07/01/22 Status: Ordered triamcinolone 0.1% topical cream 1 application, Topically, 3 times a day, PRN arm rash, # 30 Gm, 1 Refills, Acute 06/08/23 9:53:00 EST, 06/08/22 9:53:00 EST, Cream, [facility] #[id number], Partial fill upon patient request if the [...] Primary Care Member Role: PCP Address: Address: [address] [facility] [place] [address]- Care Team Related Persons Name: RODOLFO SHEIKH Address: home [address] [place] [address] Name: CHIARA TEE Address: home [address] [place] [address] [address] [place] [address]
--- OUTSIDE RECORDS SUMMARY | 2022-12-30 08:19 | XMS_ITS | Continuity of Care Document ---
Author Name Unknown Organization [facility] Address [address] [place] [address]- Care Team Providers Care Music Mixer Name Role Phone Candis CARDENAS, Kaiden Villalta Primary Care Physician Encounter [facility] [place] Date(s): 09/06/21 - 10/06/21 [facility] [address] [place], [place] [address] Allergies, Adverse Reactions, Alerts [...] 8.5 Gm,0 Refills, Maintenance, 09/28/21 16:57:00 EDT, [facility] #[id number], 2 puffs Inhalation Every 4 hours,PRN: NEEDED FOR WHEEZING/cough/shortness... Start Date: 09/28/21 Status: Ordered benzonatate 100 mg oral capsule 2 capsule, By Mouth, 3 times a day, PRN NEEDED FOR COUGH, # 30 capsule, 1 Refills, Physician Stop 03/19/22 17:38:00 EST, 02/19/22 16:55:00 EDT, [facility]/pharmacy #[id number], 160, cm, 12/04/20 10:52:00 EDT, Height, 104.6, kg, 12/04/20 10:52:00 EDT, Dry Weight Start Date: 02/19/22 Stop Date: 03/19/22 Status: Ordered benzonatate 100 mg oral capsule 2 capsule, By Mouth, 3 times a day, PRN NEEDED FOR COUGH, # 30 capsule, 1 Refills, Maintenance, 09/29/21 15:56:00 EDT, [facility] #[id number], 153, cm, 08/10/21 11:19:00 EDT, Height, 105, [...] Maintenance, 11/18/20 21:02:00 EDT, Tablet, [facility]/pharmacy #[id number], Partial fill upon patient... Start Date: 11/18/20 Status: Ordered diclofenac 1% topical gel = 1 Gm, Topically, 4 times a day, FOR PAIN., # 100 Gm, 1 Refills, [id number], 30, APPLY 1 GM TOPICALLY 4 TIMES A DAY FOR PAIN, 153, cm, 06/07/21 11:07:00 EST, Height, 105, kg, 05/31/21 15:15:00 EST, Dry Weight Start Date: 08/05/21 Status: Ordered Dilaudid 2 mg oral tablet 1 tablet = 2 mg, By Mouth, 2 times a day, PRN Pain , Severe, checked masspat, # 28 tablet, 0 Refills, Maintenance, 09/24/21 16:42:00 EDT, Tablet, [facility] #[id number], Partial fill upon patient request if the prescription is for a schedule II o... Start Date: 09/24/21 Status: Ordered Famotidine 0 Refills, Maintenance, 04/07/19 16:11:00 EST Start Date: 04/07/19 Status: Ordered fluconazole 150 mg oral tablet 1 tablet = 150 mg, By Mouth, Once, # 1 tablet, 0 Refills, Soft Stop, 09/21/21 11:15:00 EDT, Tablet,[facility] #[id number], Partial fill upon patient request if the prescription is for a schedule II opioid drug., 153, cm, 08/10/21 11:19:00 EDT, H... Start Date: 09/21/21 Status: Ordered gabapentin 800 mg oral tablet 1 tablet, By Mouth, 4 times a day, # 360 tablet, 1 Refills, [id number], 160, cm, 03/30/21 10:47:00 EST, Height, 104.6, [...] capsule, 1 Refills, Maintenance, 09/28/21 16:58:00 EDT, [facility] #[id number], 153, cm, 08/10/21 11:19:00 EDT, Height, 105, [...] 1 Refills, Maintenance, 07/30/21 12:25:00 EDT, Tablet, [facility] #[id number], Partial fill upon patient request if the prescription is for a schedule II opioid drug... Start Date: 07/30/21 Status: Ordered lidocaine 2% topical gel with applicator 5 mL = 0.1 Gm, Topically, 2 times a day, PRN Pain , Moderate, # 60 mL, 2 Refills, Soft Stop, 09/24/21 16:43:00 EDT, Gel, [facility] #[id number], Partial fill upon patient request if the prescription is for a schedule II opioid drug., 153, cm, 04/... Start Date: 09/24/21 Status: Ordered omeprazole 20 mg oral enteric coated capsule 1 capsule, By Mouth, Daily, # 90 capsule, 0 Refills, 09/27/21 14:31:00 EDT, [facility] #[id number], 153, cm, 08/10/21 11:19:00 EDT, Height, 105, kg, 05/31/21 15:15:00 EST, Dry Weight Start Date: 09/27/21 Status: Ordered ondansetron 4 mg oral tablet 1 tablet = 4 mg, By Mouth, Every 8 hours, PRN Nausea & Vomiting, # 30 tablet, 1 Refills, Maintenance, 09/28/21 16:56:00 EDT, [facility] #[id number], 153, cm, 08/10/21 11:19:00 EDT, Height, 105, kg, 05/31/21 15:15:00 EST, Dry Weight Start Date: 09/28/21 Status: Ordered oxybutynin 5 mg oral tablet 1 tablet, By Mouth, 3 times a day, # 270 tablet, 1 Refills, [id number], 153, cm, 08/10/21 11:19:00 EDT, Height, 105, [...] 1 Refills, Maintenance, 07/30/21 12:22:00 EDT, Tablet, [facility] #[id number], Partial fill upon patient request if the [...]
--- OUTSIDE RECORDS SUMMARY | 2022-12-30 08:19 | XMS_ITS | Continuity of Care Document ---
Author Name Unknown Organization [facility] Address [address] [place] [address]- Care Team Providers Care Terrazzo Grinder Name Role Phone Kaiden Chirinos MD Primary Care Physician [place] [facility] [place]22 [place] 04/27/22 [facility] [address] [place], [place] [address] Allergies, Adverse Reactions, Alerts Substance [...] 8.5 Gm,0 Refills, Maintenance, 12/22/21 10:40:00 EDT, [email or web address] #[id number], 2 puffs Inhalation Every 4 hours,PRN: NEEDED FOR WHEEZING/cough/shortness... Start Date: 12/22/21 Status: Ordered albuterol 0.083% inhalation solution 3 mL = 2.5 mg, Inhalation, Every 4 hours, PRN for wheezing/cough/shortness of breath, # 25 each, 0 Refills, Maintenance, 10/14/21 22:10:00 EDT, Solution, [facility] #[id number], Partial fill upon patient request if the prescription is for a sched... Start Date: 10/14/21 Status: Ordered [place] Saline Mist 0.65% nasal spray 2 sprays, Nares, Both, 4 times a day, # 1 each, 0 Refills, Maintenance, 02/04/22 13:32:00 EDT, [facility] #[id number], Partial fill upon patient request if the [...] tablet, 0 Refills, Maintenance, 12/27/21 13:43:00 EDT, [facility] #[id number], 153, cm, 10/08/21 13:23:00 EDT, Height, 113.9, kg, 10/08/21 13:23:00EDT, Dry Weight Start Date: 12/27/21 Status: Ordered clonazePAM 0.5 mg oral tablet 1 tablet = 0.5 mg, By Mouth, 4 times a day, PRN Anxiety, Patient on controlled substance contract. Please do NOT fill until 09/23/2020, # 112 tablet, 0 Refills, Maintenance, 11/18/20 21:02:00 EDT, Tablet, [facility]/pharmacy #[id number], Partial fill upon patient... Start Date: 11/18/20 Status: Ordered diclofenac 1% topical gel = 1 Gm, Topically, 4 times a day, FOR PAIN., # 100 Gm, 1 Refills, [facility], 30, APPLY 1 GM TOPICALLY 4 TIMES A DAY FOR PAIN, 153, cm, 06/07/21 11:07:00 EST, Height, 105, kg, 05/31/21 15:15:00 EST, Dry Weight Start Date: 08/05/21 Status: Ordered Dilaudid 2 mg oral tablet 1 tablet = 2 mg, By Mouth, 2 times a day, PRN Pain , Severe, checked masspat, # 56 tablet, 0 Refills, Maintenance, 04/07/22 21:32:00 EST, Tablet, [facility] #[id number], Partial fill upon patient request if the prescription is for a schedule II o... Start Date: 04/07/22 Status: Ordered doxycycline monohydrate 100 mg oral capsule 1 capsule = 100 mg, By Mouth, 2 times a day, for 10 days, take with food, # 20 capsule, 0 Refills, Acute 05/05/22 16:17:00 EST, 04/25/22 16:17:00 EST, Capsule, [facility] #[id number], Partial fill upon patient request if the prescription is for a... Start Date: 04/25/22 Stop Date: 05/05/22 Status: Ordered Estrace Vaginal Cream 0.1 mg/g = 2 Gm, Vaginally, Daily at bedtime, 2g PV daily at bedtime x 2 weeks, then 1g PV 1-3x per week, # 42.5 Gm, 5 Refills, Maintenance, 11/09/21 11:17:00 EDT, [facility] #[id number], Partial fill upon patient request if the prescription is for a sche... Start Date: 11/09/21 Status: Ordered Estradiol Patch 0.0375 mg/24 hours twice weekly transdermal film, extended release See Instructions, APPLY 1 PATCH TOPICALLY TWICE WEEKLY DIRECTED, # 8 patch, 6 Refills, Maintenance, 03/23/22 16:10:00 EST, [facility] #[id number], 28, APPLY 1 PATCH TOPICALLY TWICE WEEKLY DIRECTED, 153, cm, 01/04/22 13:15:00 EDT, Height, 11... Start Date: 03/23/22 Status: Ordered Flonase 50 mcg/inh nasal spray 1 sprays, Nares, Both, 2 times a day, # 16 Gm, 0 Refills, Maintenance, 04/19/22 14:04:00 EST, [place], [facility] #[id number], Partial fill upon patient request if the prescription is for a schedule II opioid drug., 1 sprays Nares, Both 2 times a d... Start Date: 04/19/22 Status: Ordered fluconazole 150 mg oral tablet 1 tablet = 150 mg, By Mouth, Once, PRN vaginal yeast infection, # 1 tablet, 0 Refills, Soft Stop, 03/15/22 10:42:00 EST, Tablet, [facility] #[id number], Partial fill upon patient request if the prescription is for a schedule II opioid drug., 153,... Start Date: 03/15/22 Status: Ordered gabapentin 800 mg oral tablet 1 tablet, By Mouth, 4 times a day, # 360 tablet, 1 Refills, Maintenance, 04/19/22 12:59:00 EST, [facility] #[id number], 153, cm, 01/04/22 13:15:00 EDT, Height, 113.9, [...] capsule, 1 Refills, Maintenance, 12/08/21 10:10:00 EDT, [facility] #[id number], 153, cm, 10/08/21 13:23:00 EDT, Height, 113.9,kg, [...] 1 Refills, Maintenance, 04/19/22 12:01:00 EST, Tablet, [facility] #[id number], Partial fill upon patient request if the prescription is for a schedule II opioid drug., 153, cm... Start Date: 04/19/22 Status: Ordered lidocaine 4% topical cream 1 application, Topically, 3 times a day, PRN pain of forearms, # 30 Gm, 1 Refills, Acute 06/23/22 16:24:00 EST, 04/25/22 16:23:00 EST, Cream, [facility] #[id number], Partial fill upon patient request if the prescription is for a schedule II opioi... Start Date: 04/25/22 Stop Date: 06/23/22 Status: Ordered meloxicam 15 mg oral tablet 1/2 TO 1 TABLET, By Mouth, Daily, PRN NEEDED FOR MODERATE PAIN, # 30 tablet, 5 Refills, Maintenance, 01/10/22 20:40:00 EDT, [facility] #[id number], 153, cm, 01/04/22 13:15:00 EDT, Height, 113.9, [...] capsule, 1 Refills, Maintenance, 04/19/22 12:41:00 EST, [facility] #[id number], 153, cm, 01/04/22 13:15:00 EDT, Height, 113.9, kg, 10/08/21 13:23:00 EDT, Dry Weight Start Date: 04/19/22 Status: Ordered ondansetron 4 mg oral tablet 1 tablet, By Mouth, Every 8 hours, PRN NEEDED FOR NAUSEA OR VOMITING, # 30 tablet, 1 Refills, Maintenance, 04/14/22 21:15:00 EST, [facility] #[id number], 153, cm, 01/04/22 13:15:00 EDT, Height, 113.9, kg, 10/08/21 13:23:00 EDT, Dry Weight Start Date: 04/14/22 Status: Ordered oxybutynin 5 mg oral tablet 1 tablet, By Mouth, 3 times a day, # 270 tablet, 1 Refills, 01/10/22 10:29:00 EDT, [facility] #[id number], 153, cm, 01/04/22 13:15:00 EDT, Height, 113.9, [...] 04/14/22 21:16:00 EST, Route to Pharmacy Electronically, [email or web address] #[id number], Partial fill upon patient request if the... [...] Physician Member Role: PCP Address: Address: [address] [place] [address] Adult & Pediatric Medicine [place], [place] [address] Care Team Related Persons Name: RODOLFO SHEIKH Address: home [address] [facility] [address] [place] [id number] Name: CHIARA TEE Address: home [address] [place] [id number]
--- OUTSIDE RECORDS SUMMARY | 2022-12-30 08:19 | XMS_ITS | Continuity of Care Document ---
Author Name Unknown Organization [facility] Address [address] [place], [place] [address]sarah espana, [address] [place] [address]- Care Team Providers Care Yard Coordinator Name Role Phone Candis CARDENAS, Kaiden Villalta Primary Care Physician Encounter [facility] [place] Date(s): 04/19/22 - 05/19/22 [facility] [address] [place] [address] Drive, [address] [place] [address]- Allergies, Adverse Reactions, Alerts Substance Reaction Severity [...] 8.5 Gm,0 Refills, Maintenance, 12/22/21 10:40:00 EDT, [facility] #[id number], 2 puffs Inhalation Every 4 hours,PRN: NEEDED FOR WHEEZING/cough/shortness... Start Date: 12/22/21 Status: Ordered albuterol 0.083% inhalation solution 3 mL = 2.5 mg, Inhalation, Every 4 hours, PRN for wheezing/cough/shortness of breath, # 25 each, 0 Refills, Maintenance, 10/14/21 22:10:00 EDT, Solution, [facility] #[id number], Partial fill upon patient request if the prescription is for a sched... Start Date: 10/14/21 Status: Ordered [place] Saline Mist 0.65% nasal spray 2 sprays, Nares, Both, 4 times a day, # 1 each, 0 Refills, Maintenance, 02/04/22 13:32:00 EDT, [facility] #[id number], Partial fill upon patient request if the [...] tablet, 0 Refills, Maintenance, 12/27/21 13:43:00 EDT, [facility] #[id number], 153, cm, 10/08/21 13:23:00 EDT, Height, 113.9, kg, 10/08/21 13:23:00EDT, Dry Weight Start Date: 12/27/21 Status: Ordered clonazePAM 0.5 mg oral tablet 1 tablet = 0.5 mg, By Mouth, 4 times a day, PRN Anxiety, Patient on controlled substance contract. Please do NOT fill until 09/23/2020, # 112 tablet, 0 Refills, Maintenance, 11/18/20 21:02:00 EDT, Tablet, [facility]/pharmacy #[id number], Partial fill upon patient... Start Date: 11/18/20 Status: Ordered diclofenac 1% topical gel = 1 Gm, Topically, 4 times a day, FOR PAIN., # 100 Gm, 1 Refills, [facility], 30, APPLY 1 GM TOPICALLY 4 TIMES A DAY FOR PAIN, 153, cm, 06/07/21 11:07:00 EST, Height, 105, kg, 05/31/21 15:15:00 EST, Dry Weight Start Date: 08/05/21 Status: Ordered Dilaudid 2 mg oral tablet 1 tablet = 2 mg, By Mouth, 2 times a day, PRN Pain , Severe, checked masspat, # 56 tablet, 0 Refills, Maintenance, 05/05/22 17:13:00 EST, Tablet, [facility] #[id number], Partial fill upon patient request if the prescription is for a schedule II o... Start Date: 05/05/22 Status: Ordered Estrace Vaginal Cream 0.1 mg/g = 2 Gm, Vaginally, Daily at bedtime, 2g PV daily at bedtime x 2 weeks, then 1g PV 1-3x per week, # 42.5 Gm, 5 Refills, Maintenance, 11/09/21 11:17:00 EDT, [facility] #[id number], Partial fill upon patient request if the prescription is for a sche... Start Date: 11/09/21 Status: Ordered Estradiol Patch 0.0375 mg/24 hours twice weekly transdermal film, extended release See Instructions, APPLY 1 PATCH TOPICALLY TWICE WEEKLY DIRECTED, # 8 patch, 6 Refills, Maintenance, 03/23/22 16:10:00 EST, [facility] #[id number], 28, APPLY 1 PATCH TOPICALLY TWICE WEEKLY DIRECTED, 153, cm, 01/04/22 13:15:00 EDT, Height, 11... Start Date: 03/23/22 Status: Ordered fluconazole 150 mg oral tablet 1 tablet = 150 mg, By Mouth, Once, PRN vaginal yeast infection, # 1 tablet, 0 Refills, Soft Stop, 03/15/22 10:42:00 EST, Tablet, [facility] #[id number], Partial fill upon patient request if the prescription is for a schedule II opioid drug., 153,... Start Date: 03/15/22 Status: Ordered fluticasone 50 mcg/inh nasal spray See Instructions, SHAKE LIQUID AND USE 1 SPRAY IN EACH NOSTRIL TWICE DAILY, # 16 Gm, 1 Refills, Maintenance, 05/18/22 13:57:00 EST, [facility] #[id number], 30, SHAKE LIQUID AND USE 1 SPRAY IN EACH NOSTRIL TWICE DAILY, 153, cm, 04/25/22 16:23:00 E... Start Date: 05/18/22 Status: Ordered gabapentin 800 mg oral tablet 1 tablet, By Mouth, 4 times a day, # 360 tablet, 1 Refills, Maintenance, 04/19/22 12:59:00 EST, [facility] #[id number], 153, cm, 01/04/22 13:15:00 EDT, Height, 113.9, [...] capsule, 1 Refills, Maintenance, 12/08/21 10:10:00 EDT, [facility] #[id number], 153, cm, 10/08/21 13:23:00 EDT, Height, 113.9,kg, [...] 1 Refills, Maintenance, 04/28/22 13:51:00 EST, Tablet, [facility] #[id number], Partial fill upon patient request if the prescription is for a schedule II opioid drug., 153, cm... Start Date: 04/28/22 Status: Ordered lidocaine 4% topical cream 1 application, Topically, 3 times a day, PRN pain of forearms, # 30 Gm, 1 Refills, Acute 06/23/22 16:24:00 EST, 04/25/22 16:23:00 EST, Cream, [facility] #[id number], Partial fill upon patient request if the prescription is for a schedule II opioi... Start Date: 04/25/22 Stop Date: 06/23/22 Status: Ordered meloxicam 15 mg oral tablet 1/2 TO 1 TABLET, By Mouth, Daily, PRN NEEDED FOR MODERATE PAIN, # 30 tablet, 5 Refills, Maintenance, 01/10/22 20:40:00 EDT, [facility] #[id number], 153, cm, 01/04/22 13:15:00 EDT, Height, 113.9, [...] capsule, 1 Refills, Maintenance, 04/19/22 12:41:00 EST, [facility] #[id number], 153, cm, 01/04/22 13:15:00 EDT, Height, 113.9, kg, 10/08/21 13:23:00 EDT, Dry Weight Start Date: 04/19/22 Status: Ordered ondansetron 4 mg oral tablet 1 tablet, By Mouth, Every 8 hours, PRN NEEDED FOR NAUSEA OR VOMITING, # 30 tablet, 1 Refills, Maintenance, 04/14/22 21:15:00 EST, [facility] #[id number], 153, cm, 01/04/22 13:15:00 EDT, Height, 113.9, kg, 10/08/21 13:23:00 EDT, Dry Weight Start Date: 04/14/22 Status: Ordered oxybutynin 5 mg oral tablet 1 tablet, By Mouth, 3 times a day, # 270 tablet, 1 Refills, 01/10/22 10:29:00 EDT, [facility] #[id number], 153, cm, 01/04/22 13:15:00 EDT, Height, 113.9, [...] 04/14/22 21:16:00 EST, Route to Pharmacy Electronically, [facility] #[id number], Partial fill upon patient request if the... [...] Name: Kaiden Chirinos MD Position: [facility] Primary Care Physician Member Role: PCP Address: Address: [address] [place] [address] Adult & [place] [address]- Care Team Related Persons Name: RODOLFO SHEIKH Address: home [address] [facility] [address] [place] [id number] Name: CHIARA TEE Address: home [address] [place] [address] [place] [address]
--- OUTSIDE RECORDS SUMMARY | 2022-12-30 08:19 | XMS_ITS | Continuity of Care Document ---
Author Name Unknown Organization [facility] Address [address] [place] [address]- Care Team Providers Care Cosmetics Presser Name Role Phone Candis CARDENAS, Kaiden Villalta Primary Care Physician Encounter [facility] [place] Date(s): 10/08/21 - 11/07/21 [facility] [address] [place], [place] [address] Allergies, Adverse Reactions, Alerts Substance [...] 8.5 Gm,0 Refills, Maintenance, 09/28/21 16:57:00 EDT, [facility] #[id number], 2 puffs Inhalation Every 4 hours,PRN: NEEDED FOR WHEEZING/cough/shortness... Start Date: 09/28/21 Status: Ordered albuterol 0.083% inhalation solution 3 mL = 2.5 mg, Inhalation, Every 4 hours, PRN for wheezing/cough/shortness of breath, # 25 each, 0 Refills, Maintenance, 10/14/21 22:10:00 EDT, Solution, [facility] #[id number], Partial fill upon patient request if the [...] capsule, 1 Refills, Maintenance, 09/29/21 15:56:00 EDT, [facility] #[id number], 153, cm, 08/10/21 11:19:00 EDT, Height, 105, kg,05/31/21 15:15:00 EST, Dry Weight Start Date: 09/29/21 Status: Ordered budesonide 1 mg/2 mL inhalation suspension 2 mL = 1 mg, Neb, 2 times a day, rinse mouth out after use, # 120 mL, 1 Refills, Maintenance, 10/25/21 18:30:00 EDT, Suspension, [facility] #[id number], Partial fill upon patient request if the [...] # 100 Gm, 1 Refills, [facility], 30, APPLY 1 GM TOPICALLY 4 TIMES A DAY FOR PAIN, 153, cm, 06/07/21 11:07:00 EST, Height, 105, kg, 05/31/21 15:15:00 EST, Dry Weight Start Date: 08/05/21 Status: Ordered Dilaudid 2 mg oral tablet 1 tablet = 2 mg, By Mouth, 2 times a day, PRN Pain , Severe, checked masspat, # 28 tablet, 0 Refills, Maintenance, 10/25/21 21:55:00 EDT, Tablet, [facility] #[id number], Partial fill upon patient request if the prescription is for a schedule II o... Start Date: 10/25/21 Status: Ordered Famotidine 0 Refills, Maintenance, 04/07/19 16:11:00 EST Start Date: 04/07/19 Status: Ordered fluconazole 150 mg oral tablet 1 tablet = 150 mg, By Mouth, Once, # 1 tablet, 0 Refills, Soft Stop, 09/21/21 11:15:00 EDT, Tablet,[facility] #[id number], Partial fill upon patient request if the prescription is for a schedule II opioid drug., 153, cm, 08/10/21 11:19:00 EDT, H... Start Date: 09/21/21 Status: Ordered gabapentin 800 mg oral tablet See Instructions, TAKE 1 TABLET BY MOUTH FOUR TIMES DAILY, # 360 tablet, 0 Refills, [facility] #[id number], 153, cm, 10/08/21 13:23:00 EDT, Height, 113.9, [...] capsule, 1 Refills, Maintenance, 09/28/21 16:58:00 EDT, [facility] #[id number], 153, cm, 08/10/21 11:19:00 EDT, Height, 105, [...] 1 Refills, Maintenance, 07/30/21 12:25:00 EDT, Tablet, [facility] #[id number], Partial fill upon patient request if the prescription is for a schedule II opioid drug... Start Date: 07/30/21 Status: Ordered levothyroxine 0.1 mg oral tablet 1 tablet = 100 mcg, By Mouth, Daily, dose increase, # 90 tablet, 0 Refills, Maintenance, 11/01/21 16:08:00 EDT, [facility] #[id number], Please discontinue 88ug, 153, cm, 10/08/21 13:23:00 EDT, Height, 113.9, kg, 10/08/21 13:23:00 EDT, Dry Weight Start Date: 11/01/21 Status: Ordered lidocaine 2% topical gel with applicator 5 mL = 0.1 Gm, Topically, 2 times a day, PRN Pain , Moderate, # 60 mL, 2 Refills, Soft Stop, 09/24/21 16:43:00 EDT, Gel, [facility] #[id number], Partial fill upon patient request if the [...] 90 capsule, 0 Refills, 09/27/21 14:31:00 EDT, [facility] #[id number], 153, cm, 08/10/21 11:19:00 EDT, Height, 105, kg, 05/31/21 15:15:00 EST, Dry Weight Start Date: 09/27/21 Status: Ordered ondansetron 4 mg oral tablet 1 tablet = 4 mg, By Mouth, Every 8 hours, PRN Nausea & Vomiting, # 30 tablet, 1 Refills, Maintenance, 09/28/21 16:56:00 EDT, [facility] #[id number], 153, cm, 08/10/21 11:19:00 EDT, Height, 105, kg, 05/31/21 15:15:00 EST, Dry Weight Start Date: 09/28/21 Status: Ordered oxybutynin 5 mg oral tablet 1 tablet, By Mouth, 3 times a day, # 270 tablet, 1 Refills, [id number], 153, cm, 08/10/21 11:19:00 EDT, Height, 105, [...] 1 Refills, Maintenance, 07/30/21 12:22:00 EDT, Tablet, [facility] #[id number], Partial fill upon patient request if the [...]
--- OUTSIDE RECORDS SUMMARY | 2022-12-30 08:19 | XMS_ITS | Continuity of Care Document ---
Author Name Unknown Organization [facility] Address [address] [place] [address] [address], [address] [place] [address]- Care Team Providers Care Dependency Case Manager Name Role Phone Candis CARDENAS, Kaiden Villalta Primary Care Physician Encounter [facility] [place] Date(s): 11/03/22 - 12/03/22 [facility] [address] [place] [address], [address] [place] [address]- Allergies, Adverse Reactions, Alerts Substance Reaction Severity [...] 8.5 Gm,0 Refills, Maintenance, 12/22/21 10:40:00 EDT, [facility] #[id number], 2 puffs Inhalation Every 4 hours,PRN: NEEDED FOR WHEEZING/cough/shortness... Start Date: 12/22/21 Status: Ordered albuterol 0.083% inhalation solution 3 mL = 2.5 mg, Inhalation, Every 4 hours, PRN for wheezing/cough/shortness of breath, # 25 each, 0 Refills, Maintenance, 06/29/22 13:08:00 EDT, Solution, [facility] #[id number], Partial fill upon patient request if the prescription is for a sched... Start Date: 06/29/22 Status: Ordered [place] Saline Mist 0.65% nasal spray 2 sprays, Nares, Both, 4 times a day, # 1 each, 0 Refills, Maintenance, 02/04/22 13:32:00 EDT, [facility] #[id number], Partial fill upon patient request if the [...] tablet, 0 Refills, Maintenance, 12/27/21 13:43:00 EDT, [facility] #[id number], 153, cm, 10/08/21 13:23:00 EDT, Height, 113.9, kg, 10/08/21 13:23:00EDT, Dry Weight Start Date: 12/27/21 Status: Ordered chlorhexidine 2% topical liquid See Instructions, 1 application to bilateral forearms twice weekly, # 120 mL, 3 Refills, Soft Stop,06/17/22 11:06:00 EST, Liquid, [facility] #[id number], Partial fill upon patient request if the prescription is for a schedule II opioid drug., 1... Start Date: 06/17/22 Status: Ordered chlorhexidine 4% topical soap See Instructions, apply topically twice weekly to skin on forearms, # 120 mL, 2 Refills, Soft Stop,06/17/22 16:03:00 EST, [facility] #[id number], Partial fill upon patient request if the [...] 21:02:00 EDT, Tablet, [facility]/pharmacy #[id number], Partial fill upon patient... Start Date: 11/18/20 Status: Ordered diclofenac 1% topical gel = 1 Gm, Topically, 4 times a day, FOR PAIN., # 100 Gm, 1 Refills, [id number], 30, APPLY 1 GM TOPICALLY 4 TIMES A DAY FOR PAIN, 153, cm, 06/07/21 11:07:00 EST, Height, 105, kg, 05/31/21 15:15:00 EST, Dry Weight Start Date: 08/05/21 Status: Ordered Dilaudid 2 mg oral tablet 1 tablet = 2 mg, By Mouth, 2 times a day, PRN Pain , Severe, checked masspat, # 56 tablet, 0 Refills, Maintenance, 11/28/22 11:25:00 EDT, Tablet, [facility] #[id number], Partial fill upon patient request if the prescription is for a schedule II o... Start Date: 11/28/22 Status: Ordered Estrace Vaginal Cream 0.1 mg/g = 2 Gm, Vaginally, Daily at bedtime, 2g PV daily at bedtime x 2 weeks, then 1g PV 1-3x per week, # 42.5 Gm, 5 Refills, Maintenance, 11/09/21 11:17:00 EDT, [facility] #[id number], Partial fill upon patient request if the prescription is for a sche... Start Date: 11/09/21 Status: Ordered Estradiol Patch 0.0375 mg/24 hours twice weekly transdermal film, extended release See Instructions, APPLY 1 PATCH TOPICALLY TWICE WEEKLY DIRECTED, # 8 patch, 2 Refills, Maintenance, 09/22/22 21:55:00 EDT, [facility] #[id number], 28, APPLY 1 PATCH TOPICALLY TWICE WEEKLY DIRECTED, 153, cm, 06/17/22 10:53:00 EST, Height, 10... Start Date: 09/22/22 Status: Ordered fluconazole 150 mg oral tablet 1 tablet = 150 mg, By Mouth, Once, PRN vaginal yeast infection, repeat dose in 72 hours if symptomsnot resolved, # 2 tablet, 0 Refills, Soft Stop, 11/08/22 15:31:00 EDT, Tablet, [facility]#[id number], Partial fill upon patient request if the pr... Start Date: 11/08/22 Status: Ordered fluticasone 50 mcg/inh nasal spray See Instructions, SHAKE LIQUID AND USE 1 SPRAY IN EACH NOSTRIL TWICE DAILY, # 16 Gm, 1 Refills, Maintenance, 05/18/22 13:57:00 EST, [facility] #[id number], 30, SHAKE LIQUID AND USE 1 SPRAY IN EACH NOSTRIL TWICE DAILY, 153, cm, 04/25/22 16:23:00 E... Start Date: 05/18/22 Status: Ordered gabapentin 800 mg oral tablet 1 tablet, By Mouth, 4 times a day, # 360 tablet, 1 Refills, Maintenance, 10/25/22 21:47:00 EDT, [facility] #[id number], 153, cm, 06/17/22 10:53:00 EST, Height, 109, [...] capsule, 1 Refills, Maintenance, 11/15/22 11:13:00 EDT, [facility] #[id number], 154, cm, 10/29/22 14:42:00 EDT, Height, 109, [...] 1 Refills, Maintenance, 04/28/22 13:51:00 EST, Tablet, [facility] #[id number], Partial fill upon patient request if the prescription is for a schedule II opioid drug., 153, cm... Start Date: 04/28/22 Status: Ordered lidocaine 4% topical cream 1 application, Topically, 3 times a day, PRN Pain , Mild, # 30 Gm, 1 Refills, Maintenance, 06/24/2315:24:00 EST, Cream, [facility] #[id number], Partial fill upon patient request if the prescription is for a schedule II opioid drug., 1 applicatio... Start Date: 06/23/22 Status: Ordered meloxicam 15 mg oral tablet 1/2 TO 1 TABLET, By Mouth, Daily, PRN NEEDED FOR MODERATE PAIN, # 30 tablet, 5 Refills, Maintenance, 01/10/22 20:40:00 EDT, [facility] #[id number], 153, cm, 01/04/22 13:15:00 EDT, Height, 113.9, [...] capsule, 1 Refills, Maintenance, 07/26/22 14:24:00 EDT, [facility] #[id number], 153, cm, 06/17/22 10:53:00 EST, Height, 109, kg, 06/17/22 10:53:00 EST, Dry Weight Start Date: 07/26/22 Status: Ordered ondansetron 4 mg oral tablet 1 tablet, By Mouth, Every 8 hours, PRN NEEDED FOR NAUSEA OR VOMITING, # 30 tablet, 1 Refills, Maintenance, 10/27/22 23:08:00 EDT, [facility] #[id number], 153, cm, 06/17/22 10:53:00 EST, Height, 109, kg, 06/17/22 10:53:00 EST, Dry Weight Start Date: 10/27/22 Status: Ordered oxybutynin 5 mg oral tablet 1 tablet, By Mouth, 3 times a day, # 270 tablet, 1 Refills, Maintenance, 10/04/22 20:44:00 EDT, [facility] #[id number], 153, cm, 06/17/22 10:53:00 EST, Height, 109, [...] 11/18/22 16:07:00 EDT, Route to Pharmacy Electronically, [facility] #[id number], Partial fill upon patient request if the prescrip... Start Date: 11/18/22 Status: Ordered traZODone 50 mg oral tablet 1-2 tablet, By Mouth, Daily, one hour prior to bedtime. dose increase, # 60 tablet, Refills 2, Tot.Refills 2, Maintenance, 07/01/22 14:21:00 EDT, Route to Pharmacy Electronically, [facility] #[id number], Partial fill upon patient request if the... Start Date: 07/01/22 Status: Ordered triamcinolone 0.1% topical cream 1 application, Topically, 3 times a day, PRN arm rash, # 30 Gm, 1 Refills, Acute 06/08/23 9:53:00 EST, 06/08/22 9:53:00 EST, Cream, [facility] #[id number], Partial fill upon patient request if the [...] Primary Care Member Role: PCP Address: Address: [address] [place] [address]- Care Team Related Persons Name: RODOLFO SHEIKH Address: home [address] [facility] [address] [place] [address] Name: CHIARA TEE Address: home [address] [place] [address] [address] [place] [address]
--- OUTSIDE RECORDS SUMMARY | 2022-12-30 08:19 | XMS_ITS | Continuity of Care Document ---
Author Name Unknown Organization [facility] Address [address] [place] [address]- Care Team Providers Care Manager Baby Name Role Phone Candis CARDENAS, Kaiden Villalta Primary Care Physician Encounter [facility] [place] Date(s): 02/18/22 - 03/20/22 [facility] [address] [place], [place] [address] Allergies, Adverse Reactions, Alerts [...] 8.5 Gm,0 Refills, Maintenance, 12/22/21 10:40:00 EDT, [facility] #[id number], 2 puffs Inhalation Every 4 hours,PRN: NEEDED FOR WHEEZING/cough/shortness... Start Date: 12/22/21 Status: Ordered albuterol 0.083% inhalation solution 3 mL = 2.5 mg, Inhalation, Every 4 hours, PRN for wheezing/cough/shortness of breath, # 25 each, 0 Refills, Maintenance, 10/14/21 22:10:00 EDT, Solution, [facility] #[id number], Partial fill upon patient request if the prescription is for a sched... Start Date: 10/14/21 Status: Ordered [place] Saline Mist 0.65% nasal spray 2 sprays, Nares, Both, 4 times a day, # 1 each, 0 Refills, Maintenance, 02/04/22 13:32:00 EDT, [facility] #[id number], Partial fill upon patient request if the [...] tablet, 0 Refills, Maintenance, 12/27/21 13:43:00 EDT, [facility] #[id number], 153, cm, 10/08/21 13:23:00 EDT, Height, 113.9, kg, 10/08/21 13:23:00EDT, Dry Weight Start Date: 12/27/21 Status: Ordered clonazePAM 0.5 mg oral tablet 1 tablet = 0.5 mg, By Mouth, 4 times a day, PRN Anxiety, Patient on controlled substance contract. Please do NOT fill until 09/23/2020, # 112 tablet, 0 Refills, Maintenance, 11/18/20 21:02:00 EDT, Tablet, [facility]/pharmacy #[id number], Partial fill upon patient... Start Date: 11/18/20 Status: Ordered diclofenac 1% topical gel = 1 Gm, Topically, 4 times a day, FOR PAIN., # 100 Gm, 1 Refills, [facility], 30, APPLY 1 GM TOPICALLY 4 TIMES A DAY FOR PAIN, 153, cm, 06/07/21 11:07:00 EST, Height, 105, kg, 05/31/21 15:15:00 EST, Dry Weight Start Date: 08/05/21 Status: Ordered Dilaudid 2 mg oral tablet 1 tablet = 2 mg, By Mouth, 2 times a day, PRN Pain , Severe, checked masspat, # 28 tablet, 0 Refills, Maintenance, 03/04/22 14:11:00 EST, Tablet, [facility] #[id number], Partial fill upon patient request if the prescription is for a schedule II o... Start Date: 03/04/22 Status: Ordered Estrace Vaginal Cream 0.1 mg/g = 2 Gm, Vaginally, Daily at bedtime, 2g PV daily at bedtime x 2 weeks, then 1g PV 1-3x per week, # 42.5 Gm, 5 Refills, Maintenance, 11/09/21 11:17:00 EDT, [facility] #[id number], Partial fill upon patient request if the prescription is for a sche... Start Date: 11/09/21 Status: Ordered Estradiol Patch 0.0375 mg/24 hours twice weekly transdermal film, extended release See Instructions, APPLY 1 PATCH TOPICALLY TWICE WEEKLY DIRECTED, # 8 patch, 0 Refills, Maintenance, 02/26/22 10:23:00 EST, [facility] #[id number], 28, APPLY 1 PATCH TOPICALLY TWICE WEEKLY DIRECTED, 153, cm, 01/04/22 13:15:00 EDT, Height, 11... Start Date: 02/26/22 Status: Ordered fluconazole 150 mg oral tablet 1 tablet = 150 mg, By Mouth, Once, PRN vaginal yeast infection, # 1 tablet, 0 Refills, Soft Stop, 03/15/22 10:42:00 EST, Tablet, [facility] #[id number], Partial fill upon patient request if the prescription is for a schedule II opioid drug., 153,... Start Date: 03/15/22 Status: Ordered gabapentin 800 mg oral tablet See Instructions, TAKE 1 TABLET BY MOUTH FOUR TIMES DAILY, # 360 tablet, 0 Refills, [facility] #[id number], 153, cm, 10/08/21 13:23:00 EDT, Height, 113.9, [...] capsule, 1 Refills, Maintenance, 12/08/21 10:10:00 EDT, [facility] #[id number], 153, cm, 10/08/21 13:23:00 EDT, Height, 113.9,kg, [...] 1 Refills, Maintenance, 03/14/22 15:04:00 EST, Tablet, [facility] #[id number], Partial fill upon patient request if the prescription is for a schedule II opioid drug., 153, cm... Start Date: 03/14/22 Status: Ordered lidocaine 3% topical gel 1 application, Topically, 2 times a day, PRN as needed for pain, to replace 2% topical, # 28.5 Gm, 2 Refills, Acute 03/29/22 14:17:00 EST, 12/28/21 14:17:00 EDT, Gel, [facility] #[id number], Partial fill upon patient request if the prescription i... Start Date: 12/28/21 Stop Date: 03/29/22 Status: Ordered meloxicam 15 mg oral tablet 1/2 TO 1 TABLET, By Mouth, Daily, PRN NEEDED FOR MODERATE PAIN, # 30 tablet, 5 Refills, Maintenance, 01/10/22 20:40:00 EDT, [facility] #[id number], 153, cm, 01/04/22 13:15:00 EDT, Height, 113.9, [...] capsule, 0 Refills, Maintenance, 01/16/22 8:28:00 EDT, [facility] #[id number], 153, cm, 01/04/22 13:15:00 EDT, Height, 113.9, kg, 10/08/21 13:23:00 EDT, Dry Weight Start Date: 01/16/22 Status: Ordered ondansetron 4 mg oral tablet 1 tablet, By Mouth, Every 8 hours, PRN NEEDED FOR NAUSEA OR VOMITING, # 30 tablet, 0 Refills, Maintenance, 03/01/22 11:29:00 EST, [facility] #[id number], 153, cm, 01/04/22 13:15:00 EDT, Height, 113.9, kg, 10/08/21 13:23:00 EDT, Dry Weight Start Date: 03/01/22 Status: Ordered oxybutynin 5 mg oral tablet 1 tablet, By Mouth, 3 times a day, # 270 tablet, 1 Refills, 01/10/22 10:29:00 EDT, [facility] #[id number], 153, cm, 01/04/22 13:15:00 EDT, Height, 113.9, [...] 03/14/22 15:10:00 EST, Route to Pharmacy Electronically, [facility] #[id number], Partial fill upon patient request if the... Start Date: 03/14/22 Status: Ordered valacyclovir 1 gm oral tablet 1 tablet = 1 Gm, By Mouth, 3 times a day, for 7 days, # 21 tablet, 0 Refills, Acute 03/22/22 10:41:00 EST, 03/15/22 10:41:00 EST, Tablet, [facility] #[id number], Partial fill upon patient request if the [...] Personnel Name: Candis CARDENAS, Kaiden Villalta Position: [facility] Primary Care Physician Member Role: PCP Address: Address: [address] [place] [address] Adult & [place] [address]- Care Team Related Persons Name: RODOLFO SHEIKH Address: home [address] [facility] [address] [place] [id number] Name: CHIARA TEE Address: home [address] [place] [address] [place] [id number]
--- OUTSIDE RECORDS SUMMARY | 2022-12-30 08:19 | XMS_ITS | Continuity of Care Document ---
Author Name Unknown Organization [facility] Address [address] [place] [address]- Care Team Providers Care Project Controller Name Role Phone Kaiden Chirinos MD Primary Care Physician Encounter [facility] [place] Date(s): 11/28/20 - 12/30/20 [facility] [address] [place], [place] [address] Attending Physician: Emily Knowles MD Allergies, Adverse Reactions, Alerts Substance Reaction [...] Route to Pharmacy Electronically, [facility]/pharmacy #[id number], Partial fill upon patient request if the prescription is for a schedule II... Start Date: 12/24/20 Status: Ordered baclofen 10 mg oral tablet 10 mg, 1, tablet, By Mouth, 3 times a day, PRN, # 30 tablet, Refills 0, Tot. Refills 0, Maintenance, Spasm, 01/31/19 21:47:23 EDT, Route to Pharmacy Electronically, [id number], [facility]/pharmacy #[id number] Start Date: 01/31/19 [...]
--- OUTSIDE RECORDS SUMMARY | 2022-12-30 08:19 | XMS_ITS | Continuity of Care Document ---
Author Name Unknown Organization [facility] Address [address] [place], [place] [address]sarah [address], [address] [place] [address]- Care Team Providers Care Rn Post Partum Name Role Phone Candis CARDENAS, Kaiden Villalta Primary Care Physician En[place] [facility] [place] Date(s): 04/14/22 - 05/14/22 [facility] [address] [place] [address] Drive, [address] [place] [address]- Allergies, Adverse Reactions, Alerts Substance Reaction Severity [...] 8.5 Gm,0 Refills, Maintenance, 12/22/21 10:40:00 EDT, [facility] #[id number], 2 puffs Inhalation Every 4 hours,PRN: NEEDED FOR WHEEZING/cough/shortness... Start Date: 12/22/21 Status: Ordered albuterol 0.083% inhalation solution 3 mL = 2.5 mg, Inhalation, Every 4 hours, PRN for wheezing/cough/shortness of breath, # 25 each, 0 Refills, Maintenance, 10/14/21 22:10:00 EDT, Solution, [facility] #[id number], Partial fill upon patient request if the prescription is for a sched... Start Date: 10/14/21 Status: Ordered [place] Saline Mist 0.65% nasal spray 2 sprays, Nares, Both, 4 times a day, # 1 each, 0 Refills, Maintenance, 02/04/22 13:32:00 EDT, [facility] #[id number], Partial fill upon patient request if the [...] tablet, 0 Refills, Maintenance, 12/27/21 13:43:00 EDT, [facility] #[id number], 153, cm, 10/08/21 13:23:00 EDT, Height, 113.9, kg, 10/08/21 13:23:00EDT, Dry Weight Start Date: 12/27/21 Status: Ordered clonazePAM 0.5 mg oral tablet 1 tablet = 0.5 mg, By Mouth, 4 times a day, PRN Anxiety, Patient on controlled substance contract. Please do NOT fill until 09/23/2020, # 112 tablet, 0 Refills, Maintenance, 11/18/20 21:02:00 EDT, Tablet, [facility]/pharmacy #[id number], Partial fill upon patient... Start Date: 11/18/20 Status: Ordered diclofenac 1% topical gel = 1 Gm, Topically, 4 times a day, FOR PAIN., # 100 Gm, 1 Refills, [facility], 30, APPLY 1 GM TOPICALLY 4 TIMES A DAY FOR PAIN, 153, cm, 06/07/21 11:07:00 EST, Height, 105, kg, 05/31/21 15:15:00 EST, Dry Weight Start Date: 08/05/21 Status: Ordered Dilaudid 2 mg oral tablet 1 tablet = 2 mg, By Mouth, 2 times a day, PRN Pain , Severe, checked masspat, # 56 tablet, 0 Refills, Maintenance, 05/05/22 17:13:00 EST, Tablet, [facility] #[id number], Partial fill upon patient request if the prescription is for a schedule II o... Start Date: 05/05/22 Status: Ordered Estrace Vaginal Cream 0.1 mg/g = 2 Gm, Vaginally, Daily at bedtime, 2g PV daily at bedtime x 2 weeks, then 1g PV 1-3x per week, # 42.5 Gm, 5 Refills, Maintenance, 11/09/21 11:17:00 EDT, [facility] #[id number], Partial fill upon patient request if the prescription is for a sche... Start Date: 11/09/21 Status: Ordered Estradiol Patch 0.0375 mg/24 hours twice weekly transdermal film, extended release See Instructions, APPLY 1 PATCH TOPICALLY TWICE WEEKLY DIRECTED, # 8 patch, 6 Refills, Maintenance, 03/23/22 [facility]10:[id number], [facility], APPLY 1 PATCH TOPICALLY TWICE WEEKLY DIRECTED, 153, cm, 01/04/22 13:15:00 EDT, Height, 11... Start Date: 03/23/22 Status: Ordered Flonase 50 mcg/inh nasal spray 1 sprays, Nares, Both, 2 times a day, # 16 Gm, 0 Refills, Maintenance, 04/19/22 14:04:00 EST, [place], [facility] #[id number], Partial fill upon patient request if the prescription is for a schedule II opioid drug., 1 sprays Nares, Both 2 times a d... Start Date: 04/19/22 Status: Ordered fluconazole 150 mg oral tablet 1 tablet = 150 mg, By Mouth, Once, PRN vaginal yeast infection, # 1 tablet, 0 Refills, Soft Stop, 03/15/22 10:42:00 EST, Tablet, [facility] #[id number], Partial fill upon patient request if the prescription is for a schedule II opioid drug., 153,... Start Date: 03/15/22 Status: Ordered gabapentin 800 mg oral tablet 1 tablet, By Mouth, 4 times a day, # 360 tablet, 1 Refills, Maintenance, 04/19/22 12:59:00 EST, [facility] #[id number], 153, cm, 01/04/22 13:15:00 EDT, Height, 113.9, [...] capsule, 1 Refills, Maintenance, 12/08/21 10:10:00 EDT, [facility] #[id number], 153, cm, 10/08/21 13:23:00 EDT, Height, 113.9,kg, [...] 1 Refills, Maintenance, 04/28/22 13:51:00 EST, Tablet, [facility] #[id number], Partial fill upon patient request if the prescription is for a schedule II opioid drug., 153, cm... Start Date: 04/28/22 Status: Ordered lidocaine 4% topical cream 1 application, Topically, 3 times a day, PRN pain of forearms, # 30 Gm, 1 Refills, Acute 06/23/22 16:24:00 EST, 04/25/22 16:23:00 EST, Cream, [facility] #[id number], Partial fill upon patient request if the prescription is for a schedule II opioi... Start Date: 04/25/22 Stop Date: 06/23/22 Status: Ordered meloxicam 15 mg oral tablet 1/2 TO 1 TABLET, By Mouth, Daily, PRN NEEDED FOR MODERATE PAIN, # 30 tablet, 5 Refills, Maintenance, 01/10/22 20:40:00 EDT, [facility] #[id number], 153, cm, 01/04/22 13:15:00 EDT, Height, 113.9, [...] capsule, 1 Refills, Maintenance, 04/19/22 12:41:00 EST, [facility] #[id number], 153, cm, 01/04/22 13:15:00 EDT, Height, 113.9, kg, 10/08/21 13:23:00 EDT, Dry Weight Start Date: 04/19/22 Status: Ordered ondansetron 4 mg oral tablet 1 tablet, By Mouth, Every 8 hours, PRN NEEDED FOR NAUSEA OR VOMITING, # 30 tablet, 1 Refills, Maintenance, 04/14/22 21:15:00 EST, [facility] #[id number], 153, cm, 01/04/22 13:15:00 EDT, Height, 113.9, kg, 10/08/21 13:23:00 EDT, Dry Weight Start Date: 04/14/22 Status: Ordered oxybutynin 5 mg oral tablet 1 tablet, By Mouth, 3 times a day, # 270 tablet, 1 Refills, 01/10/22 10:29:00 EDT, [facility] #[id number], 153, cm, 01/04/22 13:15:00 EDT, Height, 113.9, [...] 04/14/22 21:16:00 EST, Route to Pharmacy Electronically, [facility] #[id number], Partial fill upon patient request if the... [...] Personnel Name: Candis CARDENAS, Kaiden Villalta Position: [facility] Primary Care Physician Member Role: PCP Address: Address: [address] [place] [address] Adult & [place] [address]- Care Team Related Persons Name: RODOLFO SHEIKH Address: home [address] [facility] [address] [place] [address] Name: CHIARA TEE Address: home [address] [place] [address] [place] [address]
--- OUTSIDE RECORDS SUMMARY | 2022-12-30 08:19 | XMS_ITS | Continuity of Care Document ---
Author Name Unknown Organization [facility] Address [address] [place] [address]- Care Team Providers Care Traditional Chinese Herbalist Name Role Phone Kaiden Chirinos MD Primary Care Physician Encounter [facility] [place] Date(s): 05/20/21 - 06/19/21 [facility] [address] [place], [place] [address] Allergies, Adverse Reactions, Alerts [...] # 8.5 each, 0 Refills, [id number], 20, INHALE 2 PUFFS BY MOUTH EVERY 4 HOURS NEEDED FOR WHEEZING, 160, cm, 03/30/21 10:47:00 EST, Height, 104.6, kg, 12/04/20 10:52:00 EDT, Dry Weight Start Date: 04/28/21 Status: Ordered amitriptyline 10 mg oral tablet 10 mg, 1, tablet, By Mouth, Daily at bedtime, # 90 tablet, Refills 1, Tot. Refills 1, Maintenance, 12/24/20 16:08:00 EDT, Route to Pharmacy Electronically, [facility]/pharmacy #[id number], Partial fill upon patient request if the prescription is for a schedule II... Start Date: 12/24/20 Status: Ordered baclofen 10 mg oral tablet 10 mg, 1, tablet, By Mouth, 3 times a day, PRN, # 30 tablet, Refills 0, Tot. Refills 0, Maintenance, Spasm, 01/31/19 21:47:23 EDT, Route to Pharmacy Electronically, [id number], [facility]/pharmacy #[id number] Start Date: 01/31/19 Stop Date: 02/14/19 Status: Ordered benzonatate 100 mg oral capsule 2 capsule, By Mouth, 3 times a day, PRN NEEDED FOR COUGH, # 30 capsule, 1 Refills, Physician Stop 03/19/22 17:38:00 EST, 02/19/22 16:55:00 EDT, [facility]/pharmacy #[id number], 160, cm, 12/04/20 10:52:00 EDT, Height, 104.6, kg, 12/04/20 10:52:00 EDT, Dry Weight Start Date: 02/19/22 Stop Date: 03/19/22 Status: Ordered benzonatate 100 mg oral capsule 2 capsule, By Mouth, 3 times a day, PRN NEEDED FOR COUGH, # 30 capsule, 1 Refills, Physician Stop 02/19/22 16:55:00 EDT, 02/19/21 16:54:00 EDT, [facility]/pharmacy #[id number], 160, cm, 12/04/20 10:52:00 EDT, [...] Maintenance, 11/18/20 21:02:00 EDT, Tablet, [facility]/pharmacy #[id number], Partial fill upon patient... Start Date: 11/18/20 Status: Ordered Dilaudid 2 mg oral tablet 1 tablet = 2 mg, By Mouth, Every 8 hours, PRN Pain , Severe, dose increase, # 28 tablet, 0 Refills,Acute 06/24/21 17:15:00 EST, 06/10/21 17:12:00 EST, Tablet, [facility]/pharmacy #[id number], Partial fill upon patient request if the prescription is for a schedule... Start Date: 06/10/21 Stop Date: 06/24/21 Status: Ordered Famotidine 0 Refills, Maintenance, 04/07/19 16:11:00 EST Start Date: 04/07/19 Status: Ordered gabapentin 800 mg oral tablet 1 tablet, By Mouth, 4 times a day, # 360 tablet, 1 Refills, [facility] [id number], 160, cm, 03/30/21 10:47:00 EST, Height, 104.6, [...] Maintenance, 06/07/21 19:08:00 EST, Capsule, [facility]/pharmacy #[id number], Partial fill upon patient request [...] Maintenance, 05/14/21 15:23:00 EST, Tablet, [facility]/pharmacy #[id number], Partial fill upon patient request if the prescription is for a schedule II opioid drug., 160, c... Start Date: 05/14/21 Status: Ordered omeprazole 20 mg oral enteric coated capsule 1 capsule, By Mouth, Daily, # 90 capsule, 1 Refills, [id number], 160, cm, 03/30/21 10:47:00 EST, Height, 104.6, kg, 12/04/20 10:52:00 EDT, Dry Weight Start Date: 03/31/21 Status: Ordered ondansetron 4 mg oral tablet See Instructions, TAKE 1 TABLET BY MOUTH EVERY 8 HOURS NEEDED FOR NAUSEA AND VOMITING, # 15 tablet, 1 Refills, Physician Stop 07/12/21 15:23:00 EDT, 05/14/21 15:22:00 EST, [facility]/pharmacy #[id number], 160,cm, 03/30/21 10:47:00 EST, Height, 104.6, kg, 12/04... Start Date: 05/14/21 Stop Date: 07/12/21 Status: Ordered oxybutynin 5 mg oral tablet 1 tablet, By Mouth, 3 times a day, dose increase, # 270 tablet, 1 Refills, Maintenance, 03/19/21 17:40:00 EST, [facility]/pharmacy #[id number], 160, cm, 12/04/20 10:52:00 EDT, Height, 104.6, kg, 12/04/20 10:52:00EDT, Dry Weight Start Date: 03/19/21 Status: Ordered Qvar Redihaler 40 mcg/inh inhalation aerosol = 40 mcg, Inhalation, 2 times a day, to replace flovent rinse mouth and throat after use, # 1 each,1 Refills, Maintenance, 03/30/21 20:35:00 EST, [facility]/pharmacy #[id number], Partial fill upon patient request [...]
--- OUTSIDE RECORDS SUMMARY | 2022-12-30 08:19 | XMS_ITS | Continuity of Care Document ---
Author Name Unknown Organization [facility] Address [address] [place] [address]- Care Team Providers Care Store Sales Leader Name Role Phone Kaiden Chirinos MD Primary Care Physician [phone] Encounter [facility] [place] Date(s): 12/22/21 - 01/21/22 [facility] [address] [place], [place] [address] Allergies, Adverse Reactions, Alerts Substance [...] 8.5 Gm,0 Refills, Maintenance, 12/22/21 10:40:00 EDT, [facility] #[id number], 2 puffs Inhalation Every 4 hours,PRN: NEEDED FOR WHEEZING/cough/shortness... Start Date: 12/22/21 Status: Ordered albuterol 0.083% inhalation solution 3 mL = 2.5 mg, Inhalation, Every 4 hours, PRN for wheezing/cough/shortness of breath, # 25 each, 0 Refills, Maintenance, 10/14/21 22:10:00 EDT, Solution, [facility] #[id number], Partial fill upon patient request if the [...] tablet, 0 Refills, Maintenance, 12/27/21 13:43:00 EDT, [facility][id number], 153, cm, 10/08/21 13:23:00 EDT, Height, 113.9, kg, 10/08/21 13:23:00EDT, Dry Weight Start Date: 12/27/21 Status: Ordered clonazePAM 0.5 mg oral tablet 1 tablet = 0.5 mg, By Mouth, 4 times a day, PRN Anxiety, Patient on controlled substance contract. Please do NOT fill until 09/23/2020, # 112 tablet, 0 Refills, Maintenance, 11/18/20 21:02:00 EDT, Tablet, [facility]/pharmacy #[id number], Partial fill upon patient... Start Date: 11/18/20 Status: Ordered diclofenac 1% topical gel = 1 Gm, Topically, 4 times a day, FOR PAIN., # 100 Gm, 1 Refills, [facility] 08158, 30, APPLY 1 GM TOPICALLY 4 TIMES A DAY FOR PAIN, 153, cm, 06/07/21 11:07:00 EST, Height, 105, kg, 05/31/21 15:15:00 EST, Dry Weight Start Date: 08/05/21 Status: Ordered Dilaudid 2 mg oral tablet 1 tablet = 2 mg, By Mouth, 2 times a day, PRN Pain , Severe, checked masspat, # 28 tablet, 0 Refills, Maintenance, 01/18/22 17:28:00 EDT, Tablet, [facility] #[id number], Partial fill upon patient request if the prescription is for a schedule II o... Start Date: 01/18/22 Status: Ordered Estrace Vaginal Cream 0.1 mg/g = 2 Gm, Vaginally, Daily at bedtime, 2g PV daily at bedtime x 2 weeks, then 1g PV 1-3x per week, # 42.5 Gm, 5 Refills, Maintenance, 11/09/21 11:17:00 EDT, [facility] #[id number], Partial fill upon patient request if the prescription is for a sche... Start Date: 11/09/21 Status: Ordered estradiol 0.0375 mg/24 hours twice weekly transdermal film, extended release See Instructions, 1 patch Topically, change patch twice a week, # 1 pack/packet, 1 Refills, Maintenance, 12/07/21 10:42:00 EDT, [facility] #[id number], Partial fill upon patient request if the prescription is for a schedule II opioid drug., 153,... Start Date: 12/07/21 Status: Ordered gabapentin 800 mg oral tablet See Instructions, TAKE 1 TABLET BY MOUTH FOUR TIMES DAILY, # 360 tablet, 0 Refills, [facility] #[id number], 153, cm, 10/08/21 13:23:00 EDT, Height, 113.9, [...] capsule, 1 Refills, Maintenance, 12/08/21 10:10:00 EDT, [facility] #[id number], 153, cm, 10/08/21 13:23:00 EDT, Height, 113.9,kg, [...] 1 Refills, Maintenance, 11/30/21 15:44:00 EDT, Tablet, [facility] #[id number], [place]... Start Date: 11/30/21 Status: Ordered levothyroxine 0.112 mg oral tablet 1 tablet, By Mouth, Daily, AVOID ANTACIDS, CALCIUM, OR IRON FOR AT LEAST 4 HOURS BEFORE OR 4 HOURS AFTER; ON AN ON AN EMPTY STOMACH, # 90 tablet, 0 Refills, Maintenance, 01/20/22 17:46:00 EDT, [facility] #[id number], 153, cm, 01/04/22 13:15:00 ED... Start Date: 01/20/22 Status: Ordered lidocaine 3% topical gel 1 application, Topically, 2 times a day, PRN as needed for pain, to replace 2% topical, # 28.5 Gm, 2 Refills, Acute 03/29/22 14:17:00 EST, 12/28/21 14:17:00 EDT, Gel, [facility] #[id number], Partial fill upon patient request if the prescription i... Start Date: 12/28/21 Stop Date: 03/29/22 Status: Ordered lidocaine 4% topical cream 1 application, Topically, 2 times a day, PRN Pain , Mild, # 30 Gm, 1 Refills, Acute 01/27/22 17:31:00 EDT, 12/28/21 17:31:00 EDT, Cream, [facility] #[id number], Partial fill upon patient requestif the prescription is for a schedule II opioid cedrick... Start Date: 12/28/21 Stop Date: 01/27/22 Status: Ordered meloxicam 15 mg oral tablet 1/2 TO 1 TABLET, By Mouth, Daily, PRN NEEDED FOR MODERATE PAIN, # 30 tablet, 5 Refills, Maintenance, 01/10/22 20:40:00 EDT, [facility] #[id number], 153, cm, 01/04/22 13:15:00 EDT, Height, 113.9, [...] capsule, 0 Refills, Maintenance, 01/16/22 8:28:00 EDT, [facility] #[id number], 153, cm, 01/04/22 13:15:00 EDT, Height, 113.9, kg, 10/08/21 13:23:00 EDT, Dry Weight Start Date: 01/16/22 Status: Ordered ondansetron 4 mg oral tablet 1 tablet = 4 mg, By Mouth, Every 8 hours, PRN Nausea & Vomiting, # 30 tablet, 1 Refills, Maintenance, 11/10/21 14:47:00 EDT, [facility] #[id number], 153, cm, 10/08/21 13:23:00 EDT, Height, 113.9, kg, 10/08/21 13:23:00 EDT, Dry Weight Start Date: 11/10/21 Status: Ordered oxybutynin 5 mg oral tablet 1 tablet, By Mouth, 3 times a day, # 270 tablet, 1 Refills, 01/10/22 10:29:00 EDT, [facility] #[id number], 153, cm, 01/04/22 13:15:00 EDT, Height, 113.9, [...] Name: Candis CARDENAS, Kaiden Villalta Address: Address: [address] [place] [address] [facility] [address]
--- OUTSIDE RECORDS SUMMARY | 2022-12-30 08:19 | XMS_ITS | Continuity of Care Document ---
Author Name Unknown Organization [facility] Address [address] [place] [address]- Care Team Providers Care Quality Control Engineering Technician Name Role Phone Candis CARDENAS, Kaiden Villalta Primary Care Physician Encounter [facility] [place] Date(s): 09/14/21 - 10/14/21 [facility] [address] [place], [place] [address] Allergies, Adverse Reactions, Alerts Substance [...] 8.5 Gm,0 Refills, Maintenance, 09/28/21 16:57:00 T, [facility] #[id number], 2 puffs Inhalation Every 4 hours,PRN: NEEDED FOR WHEEZING/cough/shortness... Start Date: 09/28/21 Status: Ordered albuterol 0.083% inhalation solution 3 mL = 2.5 mg, Inhalation, Every 4 hours, PRN for wheezing/cough/shortness of breath, # 25 each, 0 Refills, Maintenance, 10/14/21 22:10:00 EDT, Solution, [facility] #[id number], Partial fill upon patient request if the prescription is for a sched... Start Date: 10/14/21 Status: Ordered benzonatate 100 mg oral capsule 2 capsule, By Mouth, 3 times a day, PRN NEEDED FOR COUGH, # 30 capsule, 1 Refills, Physician Stop 03/19/22 17:38:00 EST, 02/19/22 16:55:00 EDT, [facility]/pharmacy #[id number], 160, cm, 12/04/20 10:52:00 EDT, Height, 104.6, kg, 12/04/20 10:52:00 EDT, Dry Weight Start Date: 02/19/22 Stop Date: 03/19/22 Status: Ordered benzonatate 100 mg oral capsule 2 capsule, By Mouth, 3 times a day, PRN NEEDED FOR COUGH, # 30 capsule, 1 Refills, Maintenance, 09/29/21 15:56:00 EDT, [facility] #[id number], 153, cm, 08/10/21 11:19:00 EDT, Height, 105, [...] 0 Refills, Maintenance, 11/18/20 21:02:00 EDT, Tablet, [facility]/pharmacy #[id number], Partial fill upon patient... Start Date: 11/18/20 Status: Ordered diclofenac 1% topical gel = 1 Gm, Topically, 4 times a day, FOR PAIN., # 100 Gm, 1 Refills, [facility] [id number], 30, APPLY 1 GM TOPICALLY 4 TIMES A DAY FOR PAIN, 153, cm, 06/07/21 11:07:00 EST, Height, 105, kg, 05/31/21 15:15:00 EST, Dry Weight Start Date: 08/05/21 Status: Ordered Dilaudid 2 mg oral tablet 1 tablet = 2 mg, By Mouth, 2 times a day, PRN Pain , Severe, checked masspat, # 28 tablet, 0 Refills, Maintenance, 10/08/21 13:52:00 EDT, Tablet, [facility] #[id number], Partial fill upon patient request if the prescription is for a schedule II o... Start Date: 10/08/21 Status: Ordered Famotidine 0 Refills, Maintenance, 04/07/19 16:11:00 EST Start Date: 04/07/19 Status: Ordered fluconazole 150 mg oral tablet 1 tablet = 150 mg, By Mouth, Once, # 1 tablet, 0 Refills, Soft Stop, 09/21/21 11:15:00 EDT, Tablet,[facility] #[id number], Partial fill upon patient request if the prescription is for a schedule II opioid drug., 153, cm, 08/10/21 11:19:00 EDT, H... Start Date: 09/21/21 Status: Ordered gabapentin 800 mg oral tablet 1 tablet, By Mouth, 4 times a day, # 360 tablet, 1 Refills, [facility], 160, cm, 03/30/21 10:47:00 EST, Height, 104.6, [...] capsule, 1 Refills, Maintenance, 09/28/21 16:58:00 EDT, [facility] #[id number], 153, cm, 08/10/21 11:19:00 EDT, Height, 105, [...] tablet, 1 Refills, Maintenance, 07/30/21 12:25:00 EDT, [facility][id number], Partial fill upon patient request if the prescription is for a schedule II opioid drug... Start Date: 07/30/21 Status: Ordered lidocaine 2% topical gel with applicator 5 mL = 0.1 Gm, Topically, 2 times a day, PRN Pain , Moderate, # 60 mL, 2 Refills, Soft Stop, 09/24/21 16:43:00 EDT, Gel, [facility] #[id number], Partial fill upon patient request if the prescription is for a schedule II opioid drug., 153, cm, ... Start Date: 09/24/21 Status: Ordered Nebulizer/Compressor See Instructions, # 1 each, Refills 0, Tot. Refills 0, Maintenance, Use to administer albuterol q 4hours prn cough/wheezing Dx: Covid 19, 10/14/21 17:08:00 EDT, Supply Start Date: 10/14/21 Status: Ordered omeprazole 20 mg oral enteric coated capsule 1 capsule, By Mouth, Daily, # 90 capsule, 0 Refills, 09/27/21 14:31:00 EDT, [facility] #[id number], 153, cm, 08/10/21 11:19:00 EDT, Height, 105, kg, 05/31/21 15:15:00 EST, Dry Weight Start Date: 09/27/21 Status: Ordered ondansetron 4 mg oral tablet 1 tablet = 4 mg, By Mouth, Every 8 hours, PRN Nausea & Vomiting, # 30 tablet, 1 Refills, Maintenance, 09/28/21 16:56:00 EDT, [facility] #[id number], 153, cm, 08/10/21 11:19:00 EDT, Height, 105, kg, 05/31/21 15:15:00 EST, Dry Weight Start Date: 09/28/21 Status: Ordered oxybutynin 5 mg oral tablet 1 tablet, By Mouth, 3 times a day, # 270 tablet, 1 Refills, [facility] [id number], 153, cm, 08/10/21 11:19:00 EDT, Height, 105, [...] 1 Refills, Maintenance, 07/30/21 12:22:00 EDT, Tablet, [facility] #[id number], Partial fill upon patient request if the [...]
--- OUTSIDE RECORDS SUMMARY | 2022-12-30 08:19 | XMS_ITS | Continuity of Care Document ---
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 Start Date: 12/22/21 Status: Ordered albuterol 0.083% inhalation solution 3 mL = 2.5 mg, Inhalation, Every 4 hours, PRN for wheezing/cough/shortness of breath, # 25 each, 0 Refills, Maintenance, 10/14/21 22:10:00 EDT, Solution, [facility] #[id number], Partial fill upon patient request if the prescription is for a sched... Start Date: 10/14/21 Status: Ordered [place] Saline Mist 0.65% nasal spray 2 sprays, Nares, Both, 4 times a day, # 1 each, 0 Refills, Maintenance, 02/04/22 13:32:00 EDT, [facility] #[id number], Partial fill upon patient request if the [...] tablet, 0 Refills, Maintenance, 12/27/21 13:43:00 EDT, [facility] #[id number], 153, cm, 10/08/21 13:23:00 EDT, Height, 113.9, [...] # 100 Gm, 1 Refills, [facility], 30, APPLY 1 GM TOPICALLY 4 TIMES A DAY FOR PAIN, 153, cm, 06/07/21 11:07:00 EST, Height, 105, kg, 05/31/21 15:15:00 EST, Dry Weight Start Date: 08/05/21 Status: Ordered Dilaudid 2 mg oral tablet 1 tablet = 2 mg, By Mouth, 2 times a day, PRN Pain , Severe, checked masspat, # 28 tablet, 0 Refills, Maintenance, 03/23/22 22:13:00 EST, Tablet, [facility] #[id number], Partial fill upon patient request if the prescription is for a schedule II o... Start Date: 03/23/22 Status: Ordered Estrace Vaginal Cream 0.1 mg/g = 2 Gm, Vaginally, Daily at bedtime, 2g PV daily at bedtime x 2 weeks, then 1g PV 1-3x per week, # 42.5 Gm, 5 Refills, Maintenance, 11/09/21 11:17:00 EDT, [facility] #[id number], Partial fill upon patient request if the prescription is for a sche... Start Date: 11/09/21 Status: Ordered Estradiol Patch 0.0375 mg/24 hours twice weekly transdermal film, extended release See Instructions, APPLY 1 PATCH TOPICALLY TWICE WEEKLY DIRECTED, # 8 patch, 6 Refills, Maintenance, 03/23/22 16:10:00 EST, [facility] #[id number], 28, APPLY 1 PATCH TOPICALLY TWICE WEEKLY DIRECTED, 153, cm, 01/04/22 13:15:00 EDT, Height, 11... Start Date: 03/23/22 Status: Ordered fluconazole 150 mg oral tablet 1 tablet = 150 mg, By Mouth, Once, PRN vaginal yeast infection, # 1 tablet, 0 Refills, Soft Stop, 03/15/22 10:42:00 EST, Tablet, [facility] #[id number], Partial fill upon patient request if the prescription is for a schedule II opioid drug., 153,... Start Date: 03/15/22 Status: Ordered gabapentin 800 mg oral tablet See Instructions, TAKE 1 TABLET BY MOUTH FOUR TIMES DAILY, # 360 tablet, 0 Refills, [facility] #[id number], 153, cm, 10/08/21 13:23:00 EDT, Height, 113.9, [...] capsule, 1 Refills, Maintenance, 12/08/21 10:10:00 EDT, [facility] #[id number], 153, cm, 10/08/21 13:23:00 EDT, Height, 113.9,kg, [...] 1 Refills, Maintenance, 03/14/22 15:04:00 EST, Tablet, [facility] #[id number], Partial fill upon patient request if the prescription is for a schedule II opioid drug., 153, cm... Start Date: 03/14/22 Status: Ordered lidocaine 3% topical gel 1 application, Topically, 2 times a day, PRN as needed for pain, to replace 2% topical, # 28.5 Gm, 2 Refills, Acute 03/29/22 14:17:00 EST, 12/28/21 14:17:00 EDT, Gel, [facility] #[id number], Partial fill upon patient request if the prescription i... Start Date: 12/28/21 Stop Date: 03/29/22 Status: Ordered meloxicam 15 mg oral tablet 1/2 TO 1 TABLET, By Mouth, Daily, PRN NEEDED FOR MODERATE PAIN, # 30 tablet, 5 Refills, Maintenance, 01/10/22 20:40:00 EDT, [facility] #[id number], 153, cm, 01/04/22 13:15:00 EDT, Height, 113.9, [...] capsule, 0 Refills, Maintenance, 01/16/22 8:28:00 EDT, [facility] #[id number], 153, cm, 01/04/22 13:15:00 EDT, Height, 113.9, kg, 10/08/21 13:23:00 EDT, Dry Weight Start Date: 01/16/22 Status: Ordered ondansetron 4 mg oral tablet 1 tablet, By Mouth, Every 8 hours, PRN NEEDED FOR NAUSEA OR VOMITING, # 30 tablet, 0 Refills, Maintenance, 03/01/22 11:29:00 EST, [facility] #[id number], 153, cm, 01/04/22 13:15:00 EDT, Height, 113.9, kg, 10/08/21 13:23:00 EDT, Dry Weight Start Date: 03/01/22 Status: Ordered oxybutynin 5 mg oral tablet 1 tablet, By Mouth, 3 times a day, # 270 tablet, 1 Refills, 01/10/22 10:29:00 EDT, [facility] #[id number], 153, cm, 01/04/22 13:15:00 EDT, Height, 113.9, [...] 03/14/22 15:10:00 EST, Route to Pharmacy Electronically, [facility] #[id number], Partial fill upon patient request if the... [...] Team Personnel Name: Kaiden Chirinos MD Position: [facility] Primary Care Physician Member Role: PCP Address: Address: [address] [place] [address] Adult [place] [address]- Care Team Related Persons Name: RODOLFO SHEIKH Address: home [address] [facility] [address] [place] [id number] Name: CHIARA TEE Address: home [address] [place] [address] [address] [place] [address]
--- OUTSIDE RECORDS SUMMARY | 2022-12-30 08:19 | XMS_ITS | Continuity of Care Document ---
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 Start Date: 12/22/21 Status: Ordered albuterol 0.083% inhalation solution 3 mL = 2.5 mg, Inhalation, Every 4 hours, PRN for wheezing/cough/shortness of breath, # 25 each, 0 Refills, Maintenance, 06/29/22 13:08:00 EDT, Solution, [facility] #[id number], Partial fill upon patient request if the prescription is for a sched... Start Date: 06/29/22 Status: Ordered [place] Saline Mist 0.65% nasal spray 2 sprays, Nares, Both, 4 times a day, # 1 each, 0 Refills, Maintenance, 02/04/22 13:32:00 EDT, [facility] #[id number], Partial fill upon patient request if the [...] tablet, 0 Refills, Maintenance, 12/27/21 13:43:00 EDT, [facility] #[id number], 153, cm, 10/08/21 13:23:00 EDT, Height, 113.9, kg, 10/08/21 13:23:00EDT, Dry Weight Start Date: 12/27/21 Status: Ordered chlorhexidine 2% topical liquid See Instructions, 1 application to bilateral forearms twice weekly, # 120 mL, 3 Refills, Soft Stop,06/17/22 11:06:00 EST, Liquid, [facility] #[id number], Partial fill upon patient request if the prescription is for a schedule II opioid drug., 1... Start Date: 06/17/22 Status: Ordered chlorhexidine 4% topical soap See Instructions, apply topically twice weekly to skin on forearms, # 120 mL, 2 Refills, Soft Stop,06/17/22 16:03:00 EST, [facility] #[id number], Partial fill upon patient request if the [...] 21:02:00 EDT, Tablet, [facility]/pharmacy #[id number], Partial fill upon patient... Start Date: 11/18/20 Status: Ordered diclofenac 1% topical gel = 1 Gm, Topically, 4 times a day, FOR PAIN., # 100 Gm, 1 Refills, [id number], 30, APPLY 1 GM TOPICALLY 4 TIMES A DAY FOR PAIN, 153, cm, 06/07/21 11:07:00 EST, Height, 105, kg, 05/31/21 15:15:00 EST, Dry Weight Start Date: 08/05/21 Status: Ordered Dilaudid 2 mg oral tablet 1 tablet = 2 mg, By Mouth, 2 times a day, PRN Pain , Severe, checked masspat, # 56 tablet, 0 Refills, Maintenance, 11/28/22 11:25:00 EDT, Tablet, [facility] #[id number], Partial fill upon patient request if the prescription is for a schedule II o... Start Date: 11/28/22 Status: Ordered Estrace Vaginal Cream 0.1 mg/g = 2 Gm, Vaginally, Daily at bedtime, 2g PV daily at bedtime x 2 weeks, then 1g PV 1-3x per week, # 42.5 Gm, 5 Refills, Maintenance, 11/09/21 11:17:00 EDT, [facility] #[id number], Partial fill upon patient request if the prescription is for a sche... Start Date: 11/09/21 Status: Ordered Estradiol Patch 0.0375 mg/24 hours twice weekly transdermal film, extended release See Instructions, APPLY 1 PATCH TOPICALLY TWICE WEEKLY DIRECTED, # 8 patch, 2 Refills, Maintenance, 09/22/22 21:55:00 EDT, [facility] #[id number], 28, APPLY 1 PATCH TOPICALLY TWICE WEEKLY DIRECTED, 153, cm, 06/17/22 10:53:00 EST, Height, 10... Start Date: 09/22/22 Status: Ordered fluconazole 150 mg oral tablet 1 tablet = 150 mg, By Mouth, Once, PRN vaginal yeast infection, repeat dose in 72 hours if symptomsnot resolved, # 2 tablet, 0 Refills, Soft Stop, 11/08/22 15:31:00 EDT, Tablet, [facility]#[id number], Partial fill upon patient request if the pr... Start Date: 11/08/22 Status: Ordered fluticasone 50 mcg/inh nasal spray See Instructions, SHAKE LIQUID AND USE 1 SPRAY IN EACH NOSTRIL TWICE DAILY, # 16 Gm, 1 Refills, Maintenance, 05/18/22 13:57:00 EST, [facility] #[id number], 30, SHAKE LIQUID AND USE 1 SPRAY IN EACH NOSTRIL TWICE DAILY, 153, cm, 04/25/22 16:23:00 E... Start Date: 05/18/22 Status: Ordered gabapentin 800 mg oral tablet 1 tablet, By Mouth, 4 times a day, # 360 tablet, 1 Refills, Maintenance, 10/25/22 21:47:00 EDT, [facility] #[id number], 153, cm, 06/17/22 10:53:00 EST, Height, 109, [...] capsule, 1 Refills, Maintenance, 11/15/22 11:13:00 EDT, [facility] #[id number], 154, cm, 10/29/22 14:42:00 EDT, Height, 109, [...] 1 Refills, Maintenance, 04/28/22 13:51:00 EST, Tablet, [facility] #[id number], Partial fill upon patient request if the prescription is for a schedule II opioid drug., 153, cm... Start Date: 04/28/22 Status: Ordered lidocaine 4% topical cream 1 application, Topically, 3 times a day, PRN Pain , Mild, # 30 Gm, 1 Refills, Maintenance, 06/24/2315:24:00 EST, Cream, [facility] #[id number], Partial fill upon patient request if the prescription is for a schedule II opioid drug., 1 applicatio... Start Date: 06/23/22 Status: Ordered meloxicam 15 mg oral tablet 1/2 TO 1 TABLET, By Mouth, Daily, PRN NEEDED FOR MODERATE PAIN, # 30 tablet, 5 Refills, Maintenance, 01/10/22 20:40:00 EDT, [facility] #[id number], 153, cm, 01/04/22 13:15:00 EDT, Height, 113.9, [...] capsule, 1 Refills, Maintenance, 07/26/22 14:24:00 EDT, [facility] #[id number], 153, cm, 06/17/22 10:53:00 EST, Height, 109, kg, 06/17/22 10:53:00 EST, Dry Weight Start Date: 07/26/22 Status: Ordered ondansetron 4 mg oral tablet 1 tablet, By Mouth, Every 8 hours, PRN NEEDED FOR NAUSEA OR VOMITING, # 30 tablet, 1 Refills, Maintenance, 10/27/22 23:08:00 EDT, [facility] #[id number], 153, cm, 06/17/22 10:53:00 EST, Height, 109, kg, 06/17/22 10:53:00 EST, Dry Weight Start Date: 10/27/22 Status: Ordered oxybutynin 5 mg oral tablet 1 tablet, By Mouth, 3 times a day, # 270 tablet, 1 Refills, Maintenance, 10/04/22 20:44:00 EDT, [facility] #[id number], 153, cm, 06/17/22 10:53:00 EST, Height, 109, [...] 11/18/22 16:07:00 EDT, Route to Pharmacy Electronically, [facility] #[id number], Partial fill upon patient request if the prescrip... Start Date: 11/18/22 Status: Ordered traZODone 50 mg oral tablet 1-2 tablet, By Mouth, Daily, one hour prior to bedtime. dose increase, # 60 tablet, Refills 2, Tot.Refills 2, Maintenance, 07/01/22 14:21:00 EDT, Route to Pharmacy Electronically, [facility] #[id number], Partial fill upon patient request if the... Start Date: 07/01/22 Status: Ordered triamcinolone 0.1% topical cream 1 application, Topically, 3 times a day, PRN arm rash, # 30 Gm, 1 Refills, Acute 06/08/23 9:53:00 EST, 06/08/22 9:53:00 EST, Cream, [facility] #[id number], Partial fill upon patient request if the [...] Primary Care Member Role: PCP Address: Address: [address] [place] [address]- Care Team Related Persons Name: RODOLFO SHEIKH Address: home [address] [facility] [address] [place] [address] Name: CHIARA TEE Address: home [address] [place] [address] [address] [place] [address]
--- OUTSIDE RECORDS SUMMARY | 2022-12-30 08:20 | XMS_ITS | Continuity of Care Document ---
Author Name Unknown Organization [facility] Address [address] [place], [place] [address]sarah espana, [address] [place] [address]- Care Team Providers Care Blueprint Duplicator Name Role Phone Candis CARDENAS, Kaiden Villalta Primary Care Physician Encounter [facility] [place] Date(s): 04/14/22 - 05/14/22 [facility] [address] [place] [address] Drive, [address] [place] [address]- Allergies, Adverse Reactions, Alerts Substance Reaction Severity [...] 8.5 Gm,0 Refills, Maintenance, 12/22/21 10:40:00 EDT, [facility] #[id number], 2 puffs Inhalation Every 4 hours,PRN: NEEDED FOR WHEEZING/cough/shortness... Start Date: 12/22/21 Status: Ordered albuterol 0.083% inhalation solution 3 mL = 2.5 mg, Inhalation, Every 4 hours, PRN for wheezing/cough/shortness of breath, # 25 each, 0 Refills, Maintenance, 10/14/21 22:10:00 EDT, Solution, [facility] #[id number], Partial fill upon patient request if the prescription is for a sched... Start Date: 10/14/21 Status: Ordered [place] Saline Mist 0.65% nasal spray 2 sprays, Nares, Both, 4 times a day, # 1 each, 0 Refills, Maintenance, 02/04/22 13:32:00 EDT, [facility] #[id number], Partial fill upon patient request if the [...] tablet, 0 Refills, Maintenance, 12/27/21 13:43:00 EDT, [facility] #[id number], 153, cm, 10/08/21 13:23:00 EDT, Height, 113.9, [...] # 100 Gm, 1 Refills, [id number], 30, APPLY 1 GM TOPICALLY 4 TIMES A DAY FOR PAIN, 153, cm, 06/07/21 11:07:00 EST, Height, 105, kg, 05/31/21 15:15:00 EST, Dry Weight Start Date: 08/05/21 Status: Ordered Dilaudid 2 mg oral tablet 1 tablet = 2 mg, By Mouth, 2 times a day, PRN Pain , Severe, checked masspat, # 56 tablet, 0 Refills, Maintenance, 05/05/22 17:13:00 EST, Tablet, [facility] #[id number], Partial fill upon patient request if the prescription is for a schedule II o... Start Date: 05/05/22 Status: Ordered Estrace Vaginal Cream 0.1 mg/g = 2 Gm, Vaginally, Daily at bedtime, 2g PV daily at bedtime x 2 weeks, then 1g PV 1-3x per week, # 42.5 Gm, 5 Refills, Maintenance, 11/09/21 11:17:00 EDT, [facility] #[id number], Partial fill upon patient request if the prescription is for a sche... Start Date: 11/09/21 Status: Ordered Estradiol Patch 0.0375 mg/24 hours twice weekly transdermal film, extended release See Instructions, APPLY 1 PATCH TOPICALLY TWICE WEEKLY DIRECTED, # 8 patch, 6 Refills, Maintenance, 03/23/22 16:10:00 [id number], 28, APPLY 1 PATCH TOPICALLY TWICE WEEKLY DIRECTED, 153, cm, 01/04/22 13:15:00 EDT, Height, 11... Start Date: 03/23/22 Status: Ordered Flonase 50 mcg/inh nasal spray 1 sprays, Nares, Both, 2 times a day, # 16 Gm, 0 Refills, Maintenance, 04/19/22 14:04:00 EST, [place], [facility] #[id number], Partial fill upon patient request if the prescription is for a schedule II opioid drug., 1 sprays Nares, Both 2 times a d... Start Date: 04/19/22 Status: Ordered fluconazole 150 mg oral tablet 1 tablet = 150 mg, By Mouth, Once, PRN vaginal yeast infection, # 1 tablet, 0 Refills, Soft Stop, 03/15/22 10:42:00 EST, Tablet, [facility] #[id number], Partial fill upon patient request if the prescription is for a schedule II opioid drug., 153,... Start Date: 03/15/22 Status: Ordered gabapentin 800 mg oral tablet 1 tablet, By Mouth, 4 times a day, # 360 tablet, 1 Refills, Maintenance, 04/19/22 12:59:00 EST, [facility] #[id number], 153, cm, 01/04/22 13:15:00 EDT, Height, 113.9, [...] capsule, 1 Refills, Maintenance, 12/08/21 10:10:00 EDT, [facility] #[id number], 153, cm, 10/08/21 13:23:00 EDT, Height, 113.9,kg, [...] 1 Refills, Maintenance, 04/28/22 13:51:00 EST, Tablet, [facility] #[id number], Partial fill upon patient request if the prescription is for a schedule II opioid drug., 153, cm... Start Date: 04/28/22 Status: Ordered lidocaine 4% topical cream 1 application, Topically, 3 times a day, PRN pain of forearms, # 30 Gm, 1 Refills, Acute 06/23/22 16:24:00 EST, 04/25/22 16:23:00 EST, Cream, [facility] #[id number], Partial fill upon patient request if the prescription is for a schedule II opioi... Start Date: 04/25/22 Stop Date: 06/23/22 Status: Ordered meloxicam 15 mg oral tablet 1/2 TO 1 TABLET, By Mouth, Daily, PRN NEEDED FOR MODERATE PAIN, # 30 tablet, 5 Refills, Maintenance, 01/10/22 20:40:00 EDT, [facility] #[id number], 153, cm, 01/04/22 13:15:00 EDT, Height, 113.9, [...] capsule, 1 Refills, Maintenance, 04/19/22 12:41:00 EST, [facility] #[id number], 153, cm, 01/04/22 13:15:00 EDT, Height, 113.9, kg, 10/08/21 13:23:00 EDT, Dry Weight Start Date: 04/19/22 Status: Ordered ondansetron 4 mg oral tablet 1 tablet, By Mouth, Every 8 hours, PRN NEEDED FOR NAUSEA OR VOMITING, # 30 tablet, 1 Refills, Maintenance, 04/14/22 21:15:00 EST, [facility] #[id number], 153, cm, 01/04/22 13:15:00 EDT, Height, 113.9, kg, 10/08/21 13:23:00 EDT, Dry Weight Start Date: 04/14/22 Status: Ordered oxybutynin 5 mg oral tablet 1 tablet, By Mouth, 3 times a day, # 270 tablet, 1 Refills, 01/10/22 10:29:00 EDT, [facility] #[id number], 153, cm, 01/04/22 13:15:00 EDT, Height, 113.9, [...] 04/14/22 21:16:00 EST, Route to Pharmacy Electronically, [facility] #[id number], Partial fill upon patient request if the... [...] Personnel Name: Candis CARDENAS, Kaiden Villalta Position: [facility] Primary Care Physician Member Role: PCP Address: Address: [address] [place] [address] Adult & [place] [address]- Care Team Related Persons Name: RODOLFO SHEIKH Address: home [address] [facility] [address] [place] [id number] Name: CHIARA TEE Address: home [address] [place] [address] [place] [id number]
--- OUTSIDE RECORDS SUMMARY | 2022-12-30 08:20 | XMS_ITS | Continuity of Care Document ---
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 227[facility], 20, INHALE 2 PUFFS BY MOUTH EVERY 4 HOURS NEEDED FOR WHEEZING, 160, cm, 03/30/21 10:47:00 EST, Height, 104.6, kg, 12/04/20 10:52:00 EDT, Dry Weight Start Date: 04/28/21 Status: Ordered amitriptyline 10 mg oral tablet 10 mg, 1, tablet, By Mouth, Daily at bedtime, # 90 tablet, Refills 1, Tot. Refills 1, Maintenance, 12/24/20 16:08:00 EDT, Route to Pharmacy Electronically, [facility]/pharmacy #[id number], Partial fill upon patient request if the prescription is for a schedule II... Start Date: 12/24/20 Status: Ordered baclofen 10 mg oral tablet 10 mg, 1, tablet, By Mouth, 3 times a day, PRN, # 30 tablet, Refills 0, Tot. Refills 0, Maintenance, Spasm, 01/31/19 21:47:23 EDT, Route to Pharmacy Electronically, [id number], [facility]/pharmacy #[id number] Start Date: 01/31/19 Stop Date: 02/14/19 Status: Ordered benzonatate 100 mg oral capsule 2 capsule, By Mouth, 3 times a day, PRN NEEDED FOR COUGH, # 30 capsule, 1 Refills, Physician Stop 03/19/22 17:38:00 EST, 02/19/22 16:55:00 EDT, [facility]/pharmacy #[id number], 160, cm, 12/04/20 10:52:00 EDT, Height, 104.6, kg, 12/04/20 10:52:00 EDT, Dry Weight Start Date: 02/19/22 Stop Date: 03/19/22 Status: Ordered benzonatate 100 mg oral capsule 2 capsule, By Mouth, 3 times a day, PRN NEEDED FOR COUGH, # 30 capsule, 1 Refills, Physician Stop 02/19/22 16:55:00 EDT, 02/19/21 16:54:00 EDT, [facility]/pharmacy #[id number], 160, cm, 12/04/20 10:52:00 EDT, Height, 104.6, kg, 12/04/20 10:52:00 EDT, Dry Weight Start Date: 02/19/21 Stop Date: 02/19/22 Status: Ordered clonazePAM 0.5 mg oral tablet 1 tablet = 0.5 mg, By Mouth, 4 times a day, PRN Anxiety, Patient on controlled substance contract. Please do NOT fill until 09/23/2020, # 112 tablet, 0 Refills, Maintenance, 11/18/20 21:02:00 EDT, Tablet, [facility]/pharmacy #[id number], Partial fill upon patient... Start Date: 11/18/20 Status: Ordered Dilaudid 2 mg oral tablet 0.5 tablet = 1 mg, By Mouth, Every 6 hours, PRN Pain , Severe, # 28 tablet, 0 Refills, Acute 06/30/22 10:07:00 EDT, 06/30/21 10:06:00 EDT, Tablet, [facility]/pharmacy #[id number], Partial fill upon patient request if the prescription is for a schedule II opioid drRobert.. Start Date: 06/30/21 Stop Date: 06/30/22 Status: Ordered Famotidine 0 Refills, Maintenance, 04/07/19 16:11:00 EST Start Date: 04/07/19 Status: Ordered gabapentin 800 mg oral tablet 1 tablet, By Mouth, 4 times a day, # 360 tablet, 1 Refills, [facility] [id number], 160, cm, 03/30/21 10:47:00 EST, Height, 104.6, [...] 1 Refills, Maintenance, 05/14/21 15:23:00 EST, Tablet, [facility]/pharmacy #[id number], Partial fill upon patient request if the prescription is for a schedule II opioid drug., 160, c... Start Date: 05/14/21 Status: Ordered omeprazole 20 mg oral enteric coated capsule 1 capsule, By Mouth, Daily, # 90 capsule, 1 Refills, [facility] [id number], 160, cm, 03/30/21 10:47:00 EST, Height, 104.6, kg, 12/04/20 10:52:00 EDT, Dry Weight Start Date: 03/31/21 Status: Ordered ondansetron 4 mg oral tablet See Instructions, TAKE 1 TABLET BY MOUTH EVERY 8 HOURS NEEDED FOR NAUSEA AND VOMITING, # 15 tablet, 1 Refills, Physician Stop 07/12/21 15:23:00 EDT, 05/14/21 15:22:00 EST, [facility]/pharmacy #[id number], 160,cm, 03/30/21 10:47:00 EST, Height, 104.6, kg, 12/04... Start Date: 05/14/21 Stop Date: 07/12/21 Status: Ordered oxybutynin 5 mg oral tablet 1 tablet, By Mouth, 3 times a day, dose increase, # 270 tablet, 1 Refills, Maintenance, 03/19/21 17:40:00 EST, [facility]/pharmacy #[id number], 160, cm, 12/04/20 10:52:00 EDT, [...]
--- OUTSIDE RECORDS SUMMARY | 2022-12-30 08:20 | XMS_ITS | Continuity of Care Document ---
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 Start Date: 12/22/21 Status: Ordered albuterol 0.083% inhalation solution 3 mL = 2.5 mg, Inhalation, Every 4 hours, PRN for wheezing/cough/shortness of breath, # 25 each, 0 Refills, Maintenance, 06/29/22 13:08:00 EDT, Solution, [facility] #[id number], Partial fill upon patient request if the prescription is for a sched... Start Date: 06/29/22 Status: Ordered [place] Saline Mist 0.65% nasal spray 2 sprays, Nares, Both, 4 times a day, # 1 each, 0 Refills, Maintenance, 02/04/22 13:32:00 EDT, [facility] #[id number], Partial fill upon patient request if the [...] Refills, Maintenance, 12/27/21 13:43:00 EDT, [facility] #[id number], 153, cm, 10/08/21 13:23:00 EDT, Height, 113.9, kg, 10/08/21 13:23:00EDT, Dry Weight Start Date: 12/27/21 Status: Ordered chlorhexidine 2% topical liquid See Instructions, 1 application to bilateral forearms twice weekly, # 120 mL, 3 Refills, Soft Stop,06/17/22 11:06:00 EST, Liquid, [facility] #[id number], Partial fill upon patient request if the prescription is for a schedule II opioid drug., 1... Start Date: 06/17/22 Status: Ordered chlorhexidine 4% topical soap See Instructions, apply topically twice weekly to skin on forearms, # 120 mL, 2 Refills, Soft Stop,06/17/22 16:03:00 EST, [facility] #[id number], Partial fill upon patient request if the [...] FOR PAIN., # 100 Gm, 1 Refills, [id number], 30, APPLY 1 GM TOPICALLY 4 TIMES A DAY FOR PAIN, 153, cm, 06/07/21 11:07:00 EST, Height, 105, kg, 05/31/21 15:15:00 EST, Dry Weight Start Date: 08/05/21 Status: Ordered Dilaudid 2 mg oral tablet 1 tablet = 2 mg, By Mouth, 2 times a day, PRN Pain , Severe, checked masspat, # 56 tablet, 0 Refills, Maintenance, 08/26/22 14:09:00 EDT, Tablet, [facility] #[id number], Partial fill upon patient request if the prescription is for a schedule II o... Start Date: 08/26/22 Status: Ordered Estrace Vaginal Cream 0.1 mg/g = 2 Gm, Vaginally, Daily at bedtime, 2g PV daily at bedtime x 2 weeks, then 1g PV 1-3x per week, # 42.5 Gm, 5 Refills, Maintenance, 11/09/21 11:17:00 EDT, [facility] #[id number], Partial fill upon patient request if the prescription is for a sche... Start Date: 11/09/21 Status: Ordered Estradiol Patch 0.0375 mg/24 hours twice weekly transdermal film, extended release See Instructions, APPLY 1 PATCH TOPICALLY TWICE WEEKLY DIRECTED, # 8 patch, 6 Refills, Maintenance, 03/23/22 16:10:00 EST, [facility] #[id number], 28, APPLY 1 PATCH TOPICALLY TWICE WEEKLY DIRECTED, 153, cm, 01/04/22 13:15:00 EDT, Height, 11... Start Date: 03/23/22 Status: Ordered fluconazole 150 mg oral tablet 1 tablet = 150 mg, By Mouth, Once, PRN vaginal yeast infection, # 1 tablet, 0 Refills, Soft Stop, 03/15/22 10:42:00 EST, Tablet, [facility] #[id number], Partial fill upon patient request if the prescription is for a schedule II opioid drug., 153,... Start Date: 03/15/22 Status: Ordered fluticasone 50 mcg/inh nasal spray See Instructions, SHAKE LIQUID AND USE 1 SPRAY IN EACH NOSTRIL TWICE DAILY, # 16 Gm, 1 Refills, Maintenance, 05/18/22 13:57:00 EST, [facility] #[id number], 30, SHAKE LIQUID AND USE 1 SPRAY IN EACH NOSTRIL TWICE DAILY, 153, cm, 04/25/22 16:23:00 E... Start Date: 05/18/22 Status: Ordered gabapentin 800 mg oral tablet 1 tablet, By Mouth, 4 times a day, # 360 tablet, 1 Refills, Maintenance, 04/19/22 12:59:00 EST, [facility] #[id number], 153, cm, 01/04/22 13:15:00 EDT, Height, 113.9, [...] capsule, 1 Refills, Maintenance, 07/18/22 9:45:00 EDT, [facility] #[id number], 153, cm, 06/17/22 10:53:00 EST, Height, 109, [...] 1 Refills, Maintenance, 04/28/22 13:51:00 EST, Tablet, [facility] #[id number], Partial fill upon patient request if the prescription is for a schedule II opioid drug., 153, cm... Start Date: 04/28/22 Status: Ordered lidocaine 4% topical cream 1 application, Topically, 3 times a day, PRN Pain , Mild, # 30 Gm, 1 Refills, Maintenance, 06/24/2315:24:00 EST, Cream, [facility] #[id number], Partial fill upon patient request if the prescription is for a schedule II opioid drug., 1 applicatio... Start Date: 06/23/22 Status: Ordered meloxicam 15 mg oral tablet 1/2 TO 1 TABLET, By Mouth, Daily, PRN NEEDED FOR MODERATE PAIN, # 30 tablet, 5 Refills, Maintenance, 01/10/22 20:40:00 EDT, [facility] #[id number], 153, cm, 01/04/22 13:15:00 EDT, Height, 113.9, [...] capsule, 1 Refills, Maintenance, 07/26/22 14:24:00 EDT, [facility] #[id number], 153, cm, 06/17/22 10:53:00 EST, Height, 109, kg, 06/17/22 10:53:00 EST, Dry Weight Start Date: 07/26/22 Status: Ordered ondansetron 4 mg oral tablet 1 tablet, By Mouth, Every 8 hours, PRN NEEDED FOR NAUSEA OR VOMITING, # 30 tablet, 1 Refills, Maintenance, 06/14/22 10:29:00 EST, [facility] #[id number], 153, cm, 06/08/22 9:37:00 EST, Height, 109, kg, 04/25/22 15:54:00 EST, Dry Weight Start Date: 06/14/22 Status: Ordered oxybutynin 5 mg oral tablet 1 tablet, By Mouth, 3 times a day, # 270 tablet, 0 Refills, Maintenance, 07/05/22 8:13:00 EDT, [facility] #[id number], 153, cm, 06/17/22 10:53:00 EST, Height, 109, [...] 07/01/22 14:21:00 EDT, Route to Pharmacy Electronically, [facility] #[id number], Partial fill upon patient request if the... Start Date: 07/01/22 Status: Ordered triamcinolone 0.1% topical cream 1 application, Topically, 3 times a day, PRN arm rash, # 30 Gm, 1 Refills, Acute 06/08/23 9:53:00 EST, 06/08/22 9:53:00 EST, Cream, [facility] #[id number], Partial fill upon patient request if the prescription is for a schedule II opioid drug., 1... Start Date: 06/08/22 Stop Date: 06/08/23 Status: Ordered valacyclovir 1 gm oral tablet 1 tablet = 1 Gm, By Mouth, Every 8 hours, for 7 days, # 21 tablet, 1 Refills, Acute 09/09/22 17:03:00 EDT, 08/26/22 17:03:00 EDT, Tablet, [facility] #[id number], Partial fill upon patient request if the [...] Physician Member Role: PCP Address: Address: [address] [place] [address] Adult [place] [address]- [place] Care Team Related Persons Name: RODOLFO SHEIKH Address: home [address] [facility] [address] [place] [address] Name: CHIARA TEE Address: home [address] [place] [address] [address] [place] [address]
--- OUTSIDE RECORDS SUMMARY | 2022-12-30 08:20 | XMS_ITS | Continuity of Care Document ---
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 Start Date: 12/24/20 Status: Ordered baclofen 10 mg oral tablet 10 mg, 1, tablet, By Mouth, 3 times a day, PRN, # 30 tablet, Refills 0, Tot. Refills 0, Maintenance, Spasm, 01/31/19 21:47:23 EDT, Route to Pharmacy Electronically, [id number], [facility]/pharmacy #[id number] Start Date: 01/31/19 [...] # 360 tablet, 1 Refills, [facility], 160, cm, 03/30/21 10:47:00 EST, Height, 104.6, [...] tablet, 0 Refills, [facility] 36308, 160, cm, 03/30/21 10:47:00 EST, Height, 104.6, kg, 12/04/20 10:52:00 EDT, Dry Weight Start Date: 04/15/21 Status: Ordered meloxicam 15 mg oral tablet 1/2 TO 1 TABLET, By Mouth, Daily, PRN NEEDED FOR MODERATE PAIN, # 30 tablet, 1 Refills, [facility], 160, cm, 12/04/20 10:52:00 EDT, Height, 104.6, kg, 12/04/20 10:52:00 EDT, Dry Weight Start Date: 01/22/21 Status: Ordered omeprazole 20 mg oral enteric coated capsule 1 capsule, By Mouth, Daily, # 90 capsule, 1 Refills, [facility], 160, cm, 03/30/21 10:47:00 EST, Height, 104.6, [...]
--- OUTSIDE RECORDS SUMMARY | 2022-12-30 08:20 | XMS_ITS | Continuity of Care Document ---
Author Name Unknown Organization 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 [address] [place], [place] [address] Attending Physician: Admtr, Ash8 Admitting Physician: AdmtrcJ Referring Physician: Admtr, Ar8 Allergies, Adverse Reactions, [...] 8.5 Gm,0 Refills, Maintenance, 12/22/21 10:40:00 EDT, [facility] #[id number], 2 puffs Inhalation Every 4 hours,PRN: NEEDED FOR WHEEZING/cough/shortness... Start Date: 12/22/21 Status: Ordered albuterol 0.083% inhalation solution 3 mL = 2.5 mg, Inhalation, Every 4 hours, PRN for wheezing/cough/shortness of breath, # 25 each, 0 Refills, Maintenance, 10/14/21 22:10:00 EDT, Solution, [facility] #[id number], Partial fill upon patient request if the prescription is for a sched... Start Date: 10/14/21 Status: Ordered [place] Saline Mist 0.65% nasal spray 2 sprays, Nares, Both, 4 times a day, # 1 each, 0 Refills, Maintenance, 02/04/22 13:32:00 EDT, [facility] #[id number], Partial fill upon patient request if the [...] 0 Refills, Maintenance, 12/27/21 13:43:00 EDT, [facility] #[id number], 153, cm, 10/08/21 13:23:00 EDT, Height, 113.9, [...] # 100 Gm, 1 Refills, [facility], 30, APPLY 1 GM TOPICALLY 4 TIMES A DAY FOR PAIN, 153, cm, 06/07/21 11:07:00 EST, Height, 105, kg, 05/31/21 15:15:00 EST, Dry Weight Start Date: 08/05/21 Status: Ordered Dilaudid 2 mg oral tablet 1 tablet = 2 mg, By Mouth, 2 times a day, PRN Pain , Severe, checked masspat, # 28 tablet, 0 Refills, Maintenance, 03/04/22 14:11:00 EST, Tablet, [facility] #[id number], Partial fill upon patient request if the prescription is for a schedule II o... Start Date: 03/04/22 Status: Ordered Estrace Vaginal Cream 0.1 mg/g = 2 Gm, Vaginally, Daily at bedtime, 2g PV daily at bedtime x 2 weeks, then 1g PV 1-3x per week, # 42.5 Gm, 5 Refills, Maintenance, 11/09/21 11:17:00 EDT, [facility] #[id number], Partial fill upon patient request if the prescription is for a sche... Start Date: 11/09/21 Status: Ordered Estradiol Patch 0.0375 mg/24 hours twice weekly transdermal film, extended release See Instructions, APPLY 1 PATCH TOPICALLY TWICE WEEKLY DIRECTED, # 8 patch, 0 Refills, Maintenance, 02/26/22 10:23:00 EST, [facility] #[id number], 28, APPLY 1 PATCH TOPICALLY TWICE WEEKLY DIRECTED, 153, cm, 01/04/22 13:15:00 EDT, Height, 11... Start Date: 02/26/22 Status: Ordered fluconazole 150 mg oral tablet 1 tablet = 150 mg, By Mouth, Once, # 1 tablet, 0 Refills, Soft Stop, 02/14/22 14:41:00 EDT, Tablet,[facility] #[id number], Partial fill upon patient request if the prescription is for a schedule II opioid drug., 153, cm, 01/04/22 13:15:00 EDT, H... Start Date: 02/14/22 Status: Ordered gabapentin 800 mg oral tablet See Instructions, TAKE 1 TABLET BY MOUTH FOUR TIMES DAILY, # 360 tablet, 0 Refills, [facility] #[id number], 153, cm, 10/08/21 13:23:00 EDT, Height, 113.9, [...] capsule, 1 Refills, Maintenance, 12/08/21 10:10:00 EDT, [facility] #[id number], 153, cm, 10/08/21 13:23:00 EDT, Height, 113.9,kg, [...] tablet, 0 Refills, Maintenance, 01/20/22 17:46:00 EDT, [facility] #[id number], 153, cm, 01/04/22 13:15:00 ED... Start Date: 01/20/22 Status: Ordered lidocaine 3% topical gel 1 application, Topically, 2 times a day, PRN as needed for pain, to replace 2% topical, # 28.5 Gm, 2 Refills, Acute 03/29/22 14:17:00 EST, 12/28/21 14:17:00 EDT, Gel, [facility] #[id number], Partial fill upon patient request if the prescription i... Start Date: 12/28/21 Stop Date: 03/29/22 Status: Ordered meloxicam 15 mg oral tablet 1/2 TO 1 TABLET, By Mouth, Daily, PRN NEEDED FOR MODERATE PAIN, # 30 tablet, 5 Refills, Maintenance, 01/10/22 20:40:00 EDT, [facility] #[id number], 153, cm, 01/04/22 13:15:00 EDT, Height, 113.9, [...] capsule, 0 Refills, Maintenance, 01/16/22 8:28:00 EDT, [facility] #[id number], 153, cm, 01/04/22 13:15:00 EDT, Height, 113.9, kg, 10/08/21 13:23:00 EDT, Dry Weight Start Date: 01/16/22 Status: Ordered ondansetron 4 mg oral tablet 1 tablet, By Mouth, Every 8 hours, PRN NEEDED FOR NAUSEA OR VOMITING, # 30 tablet, 0 Refills, Maintenance, 03/01/22 11:29:00 EST, [facility] #[id number], 153, cm, 01/04/22 13:15:00 EDT, Height, 113.9, kg, 10/08/21 13:23:00 EDT, Dry Weight Start Date: 03/01/22 Status: Ordered oxybutynin 5 mg oral tablet 1 tablet, By Mouth, 3 times a day, # 270 tablet, 1 Refills, 01/10/22 10:29:00 EDT, [facility] #[id number], 153, cm, 01/04/22 13:15:00 EDT, Height, 113.9, [...] 02/18/22 16:37:00 EDT, Route to Pharmacy Electronically, [facility] #[id number], Partial fill upon patient request if the [...] 30 days ago;Never entered on: 11/09/21 Sex Note * Event Display: Non BH Lab Results Authored Date: * Event Display: EKG Non BH Authored Date: * Event Display: Non BH Lab Results Authored Date: Patient Care team information Care Team Personnel Name: Kaiden Chirinos MD Position: [facility] Primary Care Physician Member Role: PCP Address: Address: [address] [place] [address] Adult & Pediatric Medicine [place], [place] [address] Care Team Related Persons Name: RODOLFO SHEIKH Address: home [address] [address] Name: CHIARA TEE Address: home [address] [place] [id number]
--- OUTSIDE RECORDS SUMMARY | 2022-12-30 08:20 | XMS_ITS | Continuity of Care Document ---
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 Start Date: 12/22/21 Status: Ordered albuterol 0.083% inhalation solution 3 mL = 2.5 mg, Inhalation, Every 4 hours, PRN for wheezing/cough/shortness of breath, # 25 each, 0 Refills, Maintenance, 06/29/22 13:08:00 EDT, Solution, [facility] #[id number], Partial fill upon patient request if the prescription is for a sched... Start Date: 06/29/22 Status: Ordered [place] Saline Mist 0.65% nasal spray 2 sprays, Nares, Both, 4 times a day, # 1 each, 0 Refills, Maintenance, 02/04/22 13:32:00 EDT, [facility] #[id number], Partial fill upon patient request if the [...] tablet, 0 Refills, Maintenance, 12/27/21 13:43:00 EDT, [facility] #[id number], 153, cm, 10/08/21 13:23:00 EDT, Height, 113.9, kg, 10/08/21 13:23:00EDT, Dry Weight Start Date: 12/27/21 Status: Ordered chlorhexidine 2% topical liquid See Instructions, 1 application to bilateral forearms twice weekly, # 120 mL, 3 Refills, Soft Stop,06/17/22 11:06:00 EST, Liquid, [facility] #[id number], Partial fill upon patient request if the prescription is for a schedule II opioid drug., 1... Start Date: 06/17/22 Status: Ordered chlorhexidine 4% topical soap See Instructions, apply topically twice weekly to skin on forearms, # 120 mL, 2 Refills, Soft Stop,06/17/22 16:03:00 EST, [facility] #[id number], Partial fill upon patient request if the prescription is for a schedule II opioid drug., apply topi... Start Date: 06/17/22 Status: Ordered clonazePAM 0.5 mg oral tablet 1 tablet = 0.5 mg, By Mouth, 4 times a day, PRN Anxiety, Patient on controlled substance contract. Please do NOT fill until 09/23/2020, # 112 tablet, 0 Refills, Maintenance, 11/18/20 21:02:00 EDT, Tablet, [facility]/pharmacy #[id number], Partial fill upon patient... Start Date: 11/18/20 Status: Ordered diclofenac 1% topical gel = 1 Gm, Topically, 4 times a day, FOR PAIN., # 100 Gm, 1 Refills, [facility] 78587, 30, APPLY 1 GM TOPICALLY 4 TIMES A DAY FOR PAIN, 153, cm, 06/07/21 11:07:00 EST, Height, 105, kg, 05/31/21 15:15:00 EST, Dry Weight Start Date: 08/05/21 Status: Ordered Dilaudid 2 mg oral tablet 1 tablet = 2 mg, By Mouth, 2 times a day, PRN Pain , Severe, checked masspat, # 56 tablet, 0 Refills, Maintenance, 11/28/22 11:25:00 EDT, Tablet, [facility] #[id number], Partial fill upon patient request if the prescription is for a schedule II o... Start Date: 11/28/22 Status: Ordered Estrace Vaginal Cream 0.1 mg/g = 2 Gm, Vaginally, Daily at bedtime, 2g PV daily at bedtime x 2 weeks, then 1g PV 1-3x per week, # 42.5 Gm, 5 Refills, Maintenance, 11/09/21 11:17:00 EDT, [facility] #[id number], Partial fill upon patient request if the prescription is for a sche... Start Date: 11/09/21 Status: Ordered Estradiol Patch 0.0375 mg/24 hours twice weekly transdermal film, extended release See Instructions, APPLY 1 PATCH TOPICALLY TWICE WEEKLY DIRECTED, # 8 patch, 2 Refills, Maintenance, 09/22/22 21:55:00 EDT, [facility] #[id number], 28, APPLY 1 PATCH TOPICALLY TWICE WEEKLY DIRECTED, 153, cm, 06/17/22 10:53:00 EST, Height, 10... Start Date: 09/22/22 Status: Ordered fluconazole 150 mg oral tablet 1 tablet = 150 mg, By Mouth, Once, PRN vaginal yeast infection, repeat dose in 72 hours if symptomsnot resolved, # 2 tablet, 0 Refills, Soft Stop, 11/08/22 15:31:00 EDT, Tablet, [facility]#89405, Partial fill upon patient request if the pr... Start Date: 11/08/22 Status: Ordered fluticasone 50 mcg/inh nasal spray See Instructions, SHAKE LIQUID AND USE 1 SPRAY IN EACH NOSTRIL TWICE DAILY, # 16 Gm, 1 Refills, Maintenance, 05/18/22 13:57:00 EST, [facility] #[id number], 30, SHAKE LIQUID AND USE 1 SPRAY IN EACH NOSTRIL TWICE DAILY, 153, cm, 04/25/22 16:23:00 E... Start Date: 05/18/22 Status: Ordered gabapentin 800 mg oral tablet 1 tablet, By Mouth, 4 times a day, # 360 tablet, 1 Refills, Maintenance, 10/25/22 21:47:00 EDT, [facility] #[id number], 153, cm, 06/17/22 10:53:00 EST, Height, 109, [...] capsule, 1 Refills, Maintenance, 11/15/22 11:13:00 EDT, [facility] #[id number], 154, cm, 10/29/22 14:42:00 EDT, Height, 109, [...] 1 Refills, Maintenance, 04/28/22 13:51:00 EST, Tablet, [facility] #[id number], Partial fill upon patient request if the prescription is for a schedule II opioid drug., 153, cm... Start Date: 04/28/22 Status: Ordered lidocaine 4% topical cream 1 application, Topically, 3 times a day, PRN Pain , Mild, # 30 Gm, 1 Refills, Maintenance, 06/24/2315:24:00 EST, Cream, [facility] #[id number], Partial fill upon patient request if the prescription is for a schedule II opioid drug., 1 applicatio... Start Date: 06/23/22 Status: Ordered meloxicam 15 mg oral tablet 1/2 TO 1 TABLET, By Mouth, Daily, PRN NEEDED FOR MODERATE PAIN, # 30 tablet, 5 Refills, Maintenance, 01/10/22 20:40:00 EDT, [facility] #[id number], 153, cm, 01/04/22 13:15:00 EDT, Height, 113.9, [...] capsule, 1 Refills, Maintenance, 07/26/22 14:24:00 EDT, [facility] #[id number], 153, cm, 06/17/22 10:53:00 EST, Height, 109, kg, 06/17/22 10:53:00 EST, Dry Weight Start Date: 07/26/22 Status: Ordered ondansetron 4 mg oral tablet 1 tablet, By Mouth, Every 8 hours, PRN NEEDED FOR NAUSEA OR VOMITING, # 30 tablet, 1 Refills, Maintenance, 10/27/22 23:08:00 EDT, [facility] #[id number], 153, cm, 06/17/22 10:53:00 EST, Height, 109, kg, 06/17/22 10:53:00 EST, Dry Weight Start Date: 10/27/22 Status: Ordered oxybutynin 5 mg oral tablet 1 tablet, By Mouth, 3 times a day, # 270 tablet, 1 Refills, Maintenance, 10/04/22 20:44:00 EDT, [facility] #[id number], 153, cm, 06/17/22 10:53:00 EST, Height, 109, [...] 11/18/22 16:07:00 EDT, Route to Pharmacy Electronically, [facility] #[id number], Partial fill upon patient request if the prescrip... Start Date: 11/18/22 Status: Ordered traZODone 50 mg oral tablet 1-2 tablet, By Mouth, Daily, one hour prior to bedtime. dose increase, # 60 tablet, Refills 2, Tot.Refills 2, Maintenance, 07/01/22 14:21:00 EDT, Route to Pharmacy Electronically, [facility] #[id number], Partial fill upon patient request if the... Start Date: 07/01/22 Status: Ordered triamcinolone 0.1% topical cream 1 application, Topically, 3 times a day, PRN arm rash, # 30 Gm, 1 Refills, Acute 06/08/23 9:53:00 EST, 06/08/22 9:53:00 EST, Cream, [facility] #[id number], Partial fill upon patient request if [...] Personnel Name: Candis CARDENAS, Kaiden Villalta Position: S Physician - Primary Care Member Role: PCP Address: Address: [address] [place] [address] Adult & [place] [address]- Care Team Related Persons Name: RODOFLO SHEIKH Address: home [address] [facility] [address] [place] [address] Name: CHIARA TEE Address: home [address] [place] [address] [place] [id number]
--- OUTSIDE RECORDS SUMMARY | 2022-12-30 08:20 | XMS_ITS | Continuity of Care Document ---
Author Name Unknown Organization [facility] Address [address] [place] [address]- Care Team Providers Care Director Of Nurses Registry Name Role Phone Candis CARDENAS, Kaiden Villalta Primary Care Physician [place] [facility] [place] Date(s): 06/10/21 - 07/10/21 [facility] [address] [place], [place] [address] Allergies, Adverse Reactions, Alerts Substance Reaction [...] # 8.5 each, 0 Refills, [facility], 20, INHALE 2 PUFFS BY MOUTH EVERY 4 HOURS NEEDED FOR WHEEZING, 160, cm, 03/30/21 10:47:00 EST, Height, 104.6, kg, 12/04/20 10:52:00 EDT, Dry Weight Start Date: 04/28/21 Status: Ordered amitriptyline 10 mg oral tablet 10 mg, 1, tablet, By Mouth, Daily at bedtime, # 90 tablet, Refills 1, Tot. Refills 1, Maintenance, 12/24/20 16:08:00 EDT, Route to Pharmacy Electronically, [facility]/pharmacy #[id number], Partial fill upon patient request if the prescription is for a schedule II... Start Date: 12/24/20 Status: Ordered baclofen 10 mg oral tablet 10 mg, 1, tablet, By Mouth, 3 times a day, PRN, # 30 tablet, Refills 0, Tot. Refills 0, Maintenance, Spasm, 01/31/19 21:47:23 EDT, Route to Pharmacy Electronically, [id number], [facility]/pharmacy #[id number] Start Date: 01/31/19 Stop Date: 02/14/19 Status: Ordered benzonatate 100 mg oral capsule 2 capsule, By Mouth, 3 times a day, PRN NEEDED FOR COUGH, # 30 capsule, 1 Refills, Physician Stop 03/19/22 17:38:00 EST, 02/19/22 16:55:00 EDT, [facility]/pharmacy #[id number], 160, cm, 12/04/20 10:52:00 EDT, Height, 104.6, kg, 12/04/20 10:52:00 EDT, Dry Weight Start Date: 02/19/22 Stop Date: 03/19/22 Status: Ordered benzonatate 100 mg oral capsule 2 capsule, By Mouth, 3 times a day, PRN NEEDED FOR COUGH, # 30 capsule, 1 Refills, Physician Stop 02/19/22 16:55:00 EDT, 02/19/21 16:54:00 EDT, [facility]/pharmacy #[id number], 160, cm, 12/04/20 10:52:00 EDT, Height, 104.6, kg, 12/04/20 10:52:00 EDT, Dry Weight Start Date: 02/19/21 Stop Date: 02/19/22 Status: Ordered clonazePAM 0.5 mg oral tablet 1 tablet = 0.5 mg, By Mouth, 4 times a day, PRN Anxiety, Patient on controlled substance contract. Please do NOT fill until 09/23/2020, # 112 tablet, 0 Refills, Maintenance, 11/18/20 21:02:00 EDT, Tablet, [facility]/pharmacy #[id number], Partial fill upon patient... Start Date: 11/18/20 Status: Ordered Dilaudid 2 mg oral tablet 0.5 tablet = 1 mg, By Mouth, Every 6 hours, PRN Pain , Severe, # 28 tablet, 0 Refills, Acute 06/30/22 10:07:00 EDT, 06/30/21 10:06:00 EDT, Tablet, [facility]/pharmacy #[id number], Partial fill upon patient request if the prescription is for a schedule II opioid dr... Start Date: 06/30/21 Stop Date: 06/30/22 Status: Ordered Famotidine 0 Refills, Maintenance, 04/07/19 16:11:00 EST Start Date: 04/07/19 Status: Ordered gabapentin 800 mg oral tablet 1 tablet, By Mouth, 4 times a day, # 360 tablet, 1 Refills, [facility], 160, cm, 03/30/21 10:47:00 EST, Height, 104.6, [...] 1 Refills, Maintenance, 05/14/21 15:23:00 EST, Tablet, [facility]/pharmacy #[id number], Partial fill upon patient request if the prescription is for a schedule II opioid drug., 160, c... Start Date: 05/14/21 Status: Ordered omeprazole 20 mg oral enteric coated capsule 1 capsule, By Mouth, Daily, # 90 capsule, 1 Refills, [facility], 160, cm, 03/30/21 10:47:00 EST, Height, 104.6, kg, 12/04/20 10:52:00 EDT, Dry Weight Start Date: 03/31/21 Status: Ordered ondansetron 4 mg oral tablet See Instructions, TAKE 1 TABLET BY MOUTH EVERY 8 HOURS NEEDED FOR NAUSEA AND VOMITING, # 15 tablet, 1 Refills, Physician Stop 07/12/21 15:23:00 EDT, 05/14/21 15:22:00 EST, [facility]/pharmacy #[id number], 160,cm, 03/30/21 10:47:00 EST, Height, 104.6, kg, 12/04... Start Date: 05/14/21 Stop Date: 07/12/21 Status: Ordered oxybutynin 5 mg oral tablet 1 tablet, By Mouth, 3 times a day, dose increase, # 270 tablet, 1 Refills, Maintenance, 03/19/21 17:40:00 EST, [facility]/pharmacy #[id number], 160, cm, 12/04/20 10:52:00 [...]
--- OUTSIDE RECORDS SUMMARY | 2022-12-30 08:20 | XMS_ITS | Continuity of Care Document ---
Author Name Unknown Organization [facility] Address [address] [place] [address]- Care Team Providers Care Cobbler Mckay Name Role Phone Candis CARDENAS, Kaiden Villalta Primary Care Physician Encounter [facility] [place] ACCT R [id number] Date(s): 05/26/21 - 06/25/21 [facility] [address] [place], [place] [address] Allergies, Adverse Reactions, Alerts [...] FOR WHEEZING, # 8.5 each, 0 Refills, [id number], 20, INHALE 2 PUFFS BY MOUTH EVERY 4 HOURS NEEDED FOR WHEEZING, 160, cm, 03/30/21 10:47:00 EST, Height, 104.6, kg, 12/04/20 10:52:00 EDT, Dry Weight Start Date: 04/28/21 Status: Ordered amitriptyline 10 mg oral tablet 10 mg, 1, tablet, By Mouth, Daily at bedtime, # 90 tablet, Refills 1, Tot. Refills 1, Maintenance, 12/24/20 16:08:00 EDT, Route to Pharmacy Electronically, [facility]/pharmacy #[id number], Partial fill upon patient request if the prescription is for a schedule II... Start Date: 12/24/20 Status: Ordered baclofen 10 mg oral tablet 10 mg, 1, tablet, By Mouth, 3 times a day, PRN, # 30 tablet, Refills 0, Tot. Refills 0, Maintenance, Spasm, 01/31/19 21:47:23 EDT, Route to Pharmacy Electronically, [id number], [facility]/pharmacy #[id number] Start Date: 01/31/19 Stop Date: 02/14/19 Status: Ordered benzonatate 100 mg oral capsule 2 capsule, By Mouth, 3 times a day, PRN NEEDED FOR COUGH, # 30 capsule, 1 Refills, Physician Stop 03/19/22 17:38:00 EST, 02/19/22 16:55:00 EDT, [facility]/pharmacy #[id number], 160, cm, 12/04/20 10:52:00 EDT, Height, 104.6, kg, 12/04/20 10:52:00 EDT, Dry Weight Start Date: 02/19/22 Stop Date: 03/19/22 Status: Ordered benzonatate 100 mg oral capsule 2 capsule, By Mouth, 3 times a day, PRN NEEDED FOR COUGH, # 30 capsule, 1 Refills, Physician Stop 02/19/22 16:55:00 EDT, 02/19/21 16:54:00 EDT, [facility]/pharmacy #[id number], 160, cm, 12/04/20 10:52:00 [...] # 360 tablet, 1 Refills, [facility], 160, cm, 03/30/21 10:47:00 EST, Height, 104.6, [...] 1 Refills, Maintenance, 06/07/21 19:08:00 EST, Capsule, [facility]/pharmacy #[id number], Partial fill upon patient [...] 1 Refills, Maintenance, 05/14/21 15:23:00 EST, Tablet, [id number], Partial fill upon patient request if the prescription is for a schedule II opioid drug., 160, c... Start Date: 05/14/21 Status: Ordered omeprazole 20 mg oral enteric coated capsule 1 capsule, By Mouth, Daily, # 90 capsule, 1 Refills, [facility], 160, cm, 03/30/21 10:47:00 EST, Height, 104.6, kg, 12/04/20 10:52:00 EDT, Dry Weight Start Date: 03/31/21 Status: Ordered ondansetron 4 mg oral tablet See Instructions, TAKE 1 TABLET BY MOUTH EVERY 8 HOURS NEEDED FOR NAUSEA AND VOMITING, # 15 tablet, 1 Refills, Physician Stop 07/12/21 15:23:00 EDT, 05/14/21 15:22:00 EST, [id number], 160,cm, 03/30/21 10:47:00 EST, Height, 104.6, [...] 1 Refills, Maintenance, 10/30/20 8:45:00 EDT, Tablet, [facility]/pharmacy #[id number], Partial fill upon patient reques... Start Date: 10/30/20 Status: Ordered traZODone 150 mg oral tablet 1.5 tablet = 225 mg, By Mouth, Daily at bedtime, dose increase, # 135 tablet, 1 Refills, Maintenance, 04/06/21 12:26:00 EST, Tablet, [facility]/pharmacy #[id number], Partial fill upon patient [...] 1 Refills, Maintenance, 06/11/21 14:11:00 EST, Gel, [facility]/pharmacy #[id number], Partial fill upon patient [...]
--- OUTSIDE RECORDS SUMMARY | 2022-12-30 08:20 | XMS_ITS | Continuity of Care Document ---
Author Name Unknown Organization [facility] Address [address] [place] [address]- Care Team Providers Care Trailer Mechanic Name Role Phone Candis CARDENAS, Kaiden Villalta Primary Care Physician Encounter [facility] [place] Date(s): 01/20/21 - 02/19/21 [facility] [address] [place], [place] [address] Allergies, Adverse Reactions, Alerts Substance [...] 16:08:00 EDT, Route to Pharmacy Electronically, [facility]/pharmacy #[id number], Partial fill upon patient request if the prescription is for a schedule II... Start Date: 12/24/20 Status: Ordered baclofen 10 mg oral tablet 10 mg, 1, tablet, By Mouth, 3 times a day, PRN, # 30 tablet, Refills 0, Tot. Refills 0, Maintenance, Spasm, 01/31/19 21:47:23 EDT, Route to Pharmacy Electronically, [id number], [facility]/pharmacy #[id number] Start Date: 01/31/19 Stop Date: 02/14/19 Status: Ordered benzonatate 100 mg oral capsule 2 capsule, By Mouth, 3 times a day, PRN NEEDED FOR COUGH, # 30 capsule, 1 Refills, Physician Stop 02/19/22 16:55:00 EDT, 02/19/21 16:54:00 EDT, [facility]/pharmacy #[id number], 160, cm, 12/04/20 10:52:00 [...] Maintenance, 11/18/20 21:02:00 EDT, Tablet, [facility]/pharmacy #[id number], Partial fill upon patient... Start Date: 11/18/20 Status: Ordered Famotidine 0 Refills, Maintenance, 04/07/19 16:11:00 EST Start Date: 04/07/19 Status: Ordered gabapentin 800 mg oral tablet 1 tablet = 800 mg, By Mouth, 4 times a day, # 360 tablet, 1 Refills, Maintenance, 11/09/20 23:47:00EDT, Tablet, [facility]/pharmacy #[id number], Partial fill upon patient [...] Refills, Maintenance, 11/05/20 11:43:00 EDT, Tablet, [facility]/pharmacy #[id number], Partial fill upon patient request if the prescription is for a schedule II opioid drug., 160, cm, 10/30/20 8:2... Start Date: 11/05/20 Status: Ordered meloxicam 15 mg oral tablet 1/2 TO 1 TABLET, By Mouth, Daily, PRN NEEDED FOR MODERATE PAIN, # 30 tablet, 1 Refills, [facility] ST[facility] 144[facility], 160, cm, 12/04/20 10:52:00 EDT, Height, 104.6, kg, 12/04/20 10:52:00 EDT, Dry Weight Start Date: 01/22/21 Status: Ordered omeprazole 20 mg oral enteric coated capsule 1 capsule, By Mouth, Daily, # 90 capsule, 0 Refills, Maintenance, 01/14/21 13:42:00 EDT, [facility]/pharmacy #[id number], 160, cm, 12/04/20 10:52:00 EDT, Height, 104.6, kg, 12/04/20 10:52:00 EDT, Dry Weight Start Date: 01/14/21 Status: Ordered ondansetron 4 mg oral tablet See Instructions, TAKE 1 TABLET BY MOUTH EVERY 8 HOURS NEEDED FOR NAUSEA AND VOMITING, # 15 tablet, 0 Refills, [facility] 13184, 160, cm, 12/04/20 10:52:00 EDT, Height, 104.6, [...]
--- OUTSIDE RECORDS SUMMARY | 2022-12-30 08:20 | XMS_ITS | Continuity of Care Document ---
Author Name Unknown Organization [facility] Address [address] [place] [address]- Care Team Providers Care Screen Repairer Crusher Name Role Phone Candis CARDENAS, Kaiden Villalta Primary Care Physician [phone] Encounter [facility] [place] ACCT R [id number] Date(s): 05/31/21 - 06/30/21 [facility] [address] [place], [place] [address] Allergies, Adverse Reactions, Alerts [...] FOR WHEEZING, # 8.5 each, 0 Refills, [facility] 93597, 20, INHALE 2 PUFFS BY MOUTH EVERY 4 HOURS NEEDED FOR WHEEZING, 160, cm, 03/30/21 10:47:00 EST, Height, 104.6, kg, 12/04/20 10:52:00 EDT, Dry Weight Start Date: 04/28/21 Status: Ordered amitriptyline 10 mg oral tablet 10 mg, 1, tablet, By Mouth, Daily at bedtime, # 90 tablet, Refills 1, Tot. Refills 1, Maintenance, 12/24/20 16:08:00 EDT, Route to Pharmacy Electronically, [facility]/pharmacy #[id number], Partial fill upon patient request if the prescription is for a schedule II... Start Date: 12/24/20 Status: Ordered baclofen 10 mg oral tablet 10 mg, 1, tablet, By Mouth, 3 times a day, PRN, # 30 tablet, Refills 0, Tot. Refills 0, Maintenance, Spasm, 01/31/19 21:47:23 EDT, Route to Pharmacy Electronically, [id number], [facility]/pharmacy #[id number] Start Date: 01/31/19 Stop Date: 02/14/19 Status: Ordered benzonatate 100 mg oral capsule 2 capsule, By Mouth, 3 times a day, PRN NEEDED FOR COUGH, # 30 capsule, 1 Refills, Physician Stop 03/19/22 17:38:00 EST, 02/19/22 16:55:00 EDT, [facility]/pharmacy #[id number], 160, cm, 12/04/20 10:52:00 EDT, Height, 104.6, kg, 12/04/20 10:52:00 EDT, Dry Weight Start Date: 02/19/22 Stop Date: 03/19/22 Status: Ordered benzonatate 100 mg oral capsule 2 capsule, By Mouth, 3 times a day, PRN NEEDED FOR COUGH, # 30 capsule, 1 Refills, Physician Stop 02/19/22 16:55:00 EDT, 02/19/21 16:54:00 EDT, [facility]/pharmacy #[id number], 160, cm, 12/04/20 10:52:00 EDT, Height, 104.6, kg, 12/04/20 10:52:00 EDT, Dry Weight Start Date: 02/19/21 Stop Date: 02/19/22 Status: Ordered clonazePAM 0.5 mg oral tablet 1 tablet = 0.5 mg, By Mouth, 4 times a day, PRN Anxiety, Patient on controlled substance contract. Please do NOT fill until 09/23/2020, # 112 tablet, 0 Refills, Maintenance, 11/18/20 21:02:00 EDT, Tablet, [facility]/pharmacy #[id number], Partial fill upon patient... Start Date: 11/18/20 Status: Ordered Dilaudid 2 mg oral tablet 0.5 tablet = 1 mg, By Mouth, Every 6 hours, PRN Pain , Severe, # 28 tablet, 0 Refills, Acute 06/30/22 10:07:00 EDT, 06/30/21 10:06:00 EDT, Tablet, [facility]/pharmacy #[id number], Partial fill upon patient request if the prescription is for a schedule II opioid drRobert.. Start Date: 06/30/21 Stop Date: 06/30/22 Status: Ordered Famotidine 0 Refills, Maintenance, 04/07/19 16:11:00 EST Start Date: 04/07/19 Status: Ordered gabapentin 800 mg oral tablet 1 tablet, By Mouth, 4 times a day, # 360 tablet, 1 Refills, [facility] 09570, 160, cm, 03/30/21 10:47:00 EST, Height, 104.6, [...] 1 Refills, Maintenance, 05/14/21 15:23:00 EST, Tablet, [facility]/pharmacy #[id number], Partial fill upon patient request if the prescription is for a schedule II opioid drug., 160, c... Start Date: 05/14/21 Status: Ordered omeprazole 20 mg oral enteric coated capsule 1 capsule, By Mouth, Daily, # 90 capsule, 1 Refills, [facility] 63932, 160, cm, 03/30/21 10:47:00 EST, Height, 104.6, kg, 12/04/20 10:52:00 EDT, Dry Weight Start Date: 03/31/21 Status: Ordered ondansetron 4 mg oral tablet See Instructions, TAKE 1 TABLET BY MOUTH EVERY 8 HOURS NEEDED FOR NAUSEA AND VOMITING, # 15 tablet, 1 Refills, Physician Stop 07/12/21 15:23:00 EDT, 05/14/21 15:22:00 EST, [facility]/pharmacy #[id number], 160,cm, 03/30/21 10:47:00 EST, Height, 104.6, kg, 12/04... Start Date: 05/14/21 Stop Date: 07/12/21 Status: Ordered oxybutynin 5 mg oral tablet 1 tablet, By Mouth, 3 times a day, dose increase, # 270 tablet, 1 Refills, Maintenance, 03/19/21 17:40:00 EST, [facility]/pharmacy #[id number], 160, cm, 12/04/20 10:52:00 [...]
--- OUTSIDE RECORDS SUMMARY | 2022-12-30 08:20 | XMS_ITS | Continuity of Care Document ---
Author Name Unknown Organization [facility] Address [address] [place] [address]- Care Team Providers Care Certified Nurse Aide Name Role Phone Candis CARDENAS, Kaiden Villalta Primary Care Physician Encounter [facility] [place] ACCT R [id number] Date(s): 06/30/21 - 07/30/21 [facility] [address] [place], [place] [address] Allergies, Adverse Reactions, Alerts Substance [...] # 8.5 each, 0 Refills, [facility], 20, INHALE 2 PUFFS BY MOUTH EVERY 4 HOURS NEEDED FOR WHEEZING, 160, cm, 03/30/21 10:47:00 EST, Height, 104.6, kg, 12/04/20 10:52:00 EDT, Dry Weight Start Date: 04/28/21 Status: Ordered amitriptyline 10 mg oral tablet 10 mg, 1, tablet, By Mouth, Daily at bedtime, # 90 tablet, Refills 1, Tot. Refills 1, Maintenance, 07/30/21 12:25:00 EDT, Route to Pharmacy Electronically, [facility] #[id number], Partial fill upon patient request if the [...] 0 Refills, Maintenance, 11/18/20 21:02:00 EDT, Tablet, [facility]/pharmacy #[id number], Partial fill upon patient... Start Date: 11/18/20 Status: Ordered Dilaudid 2 mg oral tablet 1 tablet = 2 mg, By Mouth, 2 times a day, PRN Pain , Severe, # 28 tablet, 0 Refills, Maintenance, 07/21/21 12:23:00 EDT, Tablet, [facility] #[id number], Partial fill upon patient request if the prescription is for a schedule II opioid drug., 153,... Start Date: 07/21/21 Status: Ordered Famotidine 0 Refills, Maintenance, 04/07/19 16:11:00 EST Start Date: 04/07/19 Status: Ordered gabapentin 800 mg oral tablet 1 tablet, By Mouth, 4 times a day, # 360 tablet, 1 Refills, [facility], 160, cm, 03/30/21 10:47:00 EST, Height, 104.6, [...] 1 Refills, Maintenance, 07/30/21 12:25:00 EDT, Capsule, [id number], Partial fill upon patient request if the [...] 1 Refills, Maintenance, 07/30/21 12:25:00 EDT, Tablet, [id number], Partial fill upon patient request if the prescription is for a schedule II opioid drug... Start Date: 07/30/21 Status: Ordered omeprazole 20 mg oral enteric coated capsule 1 capsule, By Mouth, Daily, # 90 capsule, 1 Refills, [facility], 160, cm, 03/30/21 10:47:00 EST, Height, 104.6, [...] 1 Refills, Maintenance, 07/30/21 12:25:00 EDT, Tablet, [id number], Partial fill upon patient request if the [...] 1 Refills, Maintenance, 06/11/21 14:11:00 EST, Gel, [facility]/pharmacy #0969, Partial fill upon patient request if the prescriptionis for a schedule II opioid drug., 1 Gm Topically 4... Start Date: 06/11/21 Status: Ordered ZyrTEC 10 mg oral tablet 1 tablet = 10 mg, By Mouth, Daily, # 90 tablet, 1 Refills, Maintenance, 07/30/21 12:22:00 EDT, Tablet, [id number], Partial fill upon patient request if the [...]
--- OUTSIDE RECORDS SUMMARY | 2022-12-30 08:20 | XMS_ITS | Continuity of Care Document ---
Author Name Unknown Organization [facility] Address [address] [place], [place] [address]sarah espana, [address] [place] [address]- Care Team Providers Care Certified Orthotist/Pedorthist Name Role Phone Candis CARDENAS, Kaiden Villalta Primary Care Physician [phone] Encounter [facility] [place] Date(s): 03/15/22 - 04/14/22 [facility] [address] [place] [address] Drive, [address] [place] [address]- Allergies, Adverse Reactions, Alerts Substance Reaction Severity [...] 8.5 Gm,0 Refills, Maintenance, 12/22/21 10:40:00 EDT, [facility] #[id number], 2 puffs Inhalation Every 4 hours,PRN: NEEDED FOR WHEEZING/cough/shortness... Start Date: 12/22/21 Status: Ordered albuterol 0.083% inhalation solution 3 mL = 2.5 mg, Inhalation, Every 4 hours, PRN for wheezing/cough/shortness of breath, # 25 each, 0 Refills, Maintenance, 10/14/21 22:10:00 EDT, Solution, [facility] #[id number], Partial fill upon patient request if the prescription is for a sched... Start Date: 10/14/21 Status: Ordered [place]oun Saline Mist 0.65% nasal spray 2 sprays, Nares, Both, 4 times a day, # 1 each, 0 Refills, Maintenance, 02/04/22 13:32:00 EDT, [facility] #[id number], Partial fill upon patient request if the [...] tablet, 0 Refills, Maintenance, 12/27/21 13:43:00 EDT, [facility] #[id number], 153, cm, 10/08/21 13:23:00 EDT, Height, 113.9, [...] # 100 Gm, 1 Refills, [facility], 30, APPLY 1 GM TOPICALLY 4 TIMES A DAY FOR PAIN, 153, cm, 06/07/21 11:07:00 EST, Height, 105, kg, 05/31/21 15:15:00 EST, Dry Weight Start Date: 08/05/21 Status: Ordered Dilaudid 2 mg oral tablet 1 tablet = 2 mg, By Mouth, 2 times a day, PRN Pain , Severe, checked masspat, # 56 tablet, 0 Refills, Maintenance, 04/07/22 21:32:00 EST, Tablet, [facility] #[id number], Partial fill upon patient request if the prescription is for a schedule II o... Start Date: 04/07/22 Status: Ordered Estrace Vaginal Cream 0.1 mg/g = 2 Gm, Vaginally, Daily at bedtime, 2g PV daily at bedtime x 2 weeks, then 1g PV 1-3x per week, # 42.5 Gm, 5 Refills, Maintenance, 11/09/21 11:17:00 EDT, [facility] #[id number], Partial fill upon patient request if the prescription is for a sche... Start Date: 11/09/21 Status: Ordered Estradiol Patch 0.0375 mg/24 hours twice weekly transdermal film, extended release See Instructions, APPLY 1 PATCH TOPICALLY TWICE WEEKLY DIRECTED, # 8 patch, 6 Refills, Maintenance, 03/23/22 16:10:00 EST, [facility] #[id number], 28, APPLY 1 PATCH TOPICALLY TWICE WEEKLY DIRECTED, 153, cm, 01/04/22 13:15:00 EDT, Height, 11... Start Date: 03/23/22 Status: Ordered fluconazole 150 mg oral tablet 1 tablet = 150 mg, By Mouth, Once, PRN vaginal yeast infection, # 1 tablet, 0 Refills, Soft Stop, 03/15/22 10:42:00 EST, Tablet, [facility] #[id number], Partial fill upon patient request if the prescription is for a schedule II opioid drug., 153,... Start Date: 03/15/22 Status: Ordered gabapentin 800 mg oral tablet See Instructions, TAKE 1 TABLET BY MOUTH FOUR TIMES DAILY, # 360 tablet, 0 Refills, Maintenance, 04/13/22 20:23:00 EST, [facility] #[id number], 153, cm, 01/04/22 13:15:00 EDT, Height, 113.9, kg,10/08/21 13:23:00 EDT, Dry Weight Start Date: 04/13/22 Status: Ordered gabapentin 800 mg oral tablet 1 tablet, By Mouth, 4 times a day, # 360 tablet, 1 Refills, Maintenance, 04/13/22 20:23:00 EST, [facility] #[id number], 153, cm, 01/04/22 13:15:00 EDT, Height, 113.9, [...] capsule, 1 Refills, Maintenance, 12/08/21 10:10:00 EDT, [facility] #[id number], 153, cm, 10/08/21 13:23:00 EDT, Height, 113.9,kg, [...] 1 Refills, Maintenance, 03/14/22 15:04:00 EST, Tablet, [facility] #[id number], Partial fill upon patient request if the prescription is for a schedule II opioid drug., 153, cm... Start Date: 03/14/22 Status: Ordered meloxicam 15 mg oral tablet 1/2 TO 1 TABLET, By Mouth, Daily, PRN NEEDED FOR MODERATE PAIN, # 30 tablet, 5 Refills, Maintenance, 01/10/22 20:40:00 EDT, [facility] #[id number], 153, cm, 01/04/22 13:15:00 EDT, Height, 113.9, [...] capsule, 0 Refills, Maintenance, 01/16/22 8:28:00 EDT, [facility] #[id number], 153, cm, 01/04/22 13:15:00 EDT, Height, 113.9, kg, 10/08/21 13:23:00 EDT, Dry Weight Start Date: 01/16/22 Status: Ordered ondansetron 4 mg oral tablet 1 tablet, By Mouth, Every 8 hours, PRN NEEDED FOR NAUSEA OR VOMITING, # 30 tablet, 1 Refills, Maintenance, 04/14/22 21:15:00 EST, [facility] #[id number], 153, cm, 01/04/22 13:15:00 EDT, Height, 113.9, kg, 10/08/21 13:23:00 EDT, Dry Weight Start Date: 04/14/22 Status: Ordered oxybutynin 5 mg oral tablet 1 tablet, By Mouth, 3 times a day, # 270 tablet, 1 Refills, 01/10/22 10:29:00 EDT, [facility] #[id number], 153, cm, 01/04/22 13:15:00 EDT, Height, 113.9, [...] 04/14/22 21:16:00 EST, Route to Pharmacy Electronically, [facility] #[id number], Partial fill upon patient request if the... [...] Care Physician Member Role: PCP Address: Address: [address] [place] [address] Adult [facility] [place] [address]- Care Team Related Persons Name: RODOLFO SHEIKH Address: home [address] [place] [address] Name: CHIARA TEE Address: home [address] [place] [address] [address] [place] [address]
--- OUTSIDE RECORDS SUMMARY | 2022-12-30 08:20 | XMS_ITS | Continuity of Care Document ---
Author Name Unknown Organization [facility] Address [address] [place] [address]- Care Team Providers Care Oncology Account Specialist Name Role Phone Kaiden Chirinos MD Primary Care Physician [phone] [facility] [place] Date(s): 07/30/21 - 08/06/21 [facility] [address] [place], [place] [address] Encounter Diagnosis Chronic sinusitis(Discharge Diagnosis) - 07/30/21 Attending Physician: Kaiden Chirinos MD Allergies, Adverse [...] # 8.5 each, 0 Refills, [id number], 20, INHALE 2 PUFFS BY MOUTH EVERY 4 HOURS NEEDED FOR WHEEZING, 160, cm, 03/30/21 10:47:00 EST, Height, 104.6, kg, 12/04/20 10:52:00 EDT, Dry Weight Start Date: 04/28/21 Status: Ordered amitriptyline 10 mg oral tablet 10 mg, 1, tablet, By Mouth, Daily at bedtime, # 90 tablet, Refills 1, Tot. Refills 1, Maintenance, 07/30/21 12:25:00 EDT, Route to Pharmacy Electronically, [facility] #[id number], Partial fill upon patient request if the prescription is for a jasmin... Start Date: 07/30/21 Status: Ordered benzonatate 100 mg oral capsule 2 capsule, By Mouth, 3 times a day, PRN NEEDED FOR COUGH, # 30 capsule, 1 Refills, Physician Stop 03/19/22 17:38:00 EST, 02/19/22 16:55:00 EDT, [facility]/pharmacy #[id number], 160, cm, 12/04/20 10:52:00 EDT, [...] Refills, Maintenance, 11/18/20 21:02:00 EDT, Tablet, [facility]/pharmacy #[id number], Partial fill upon patient... Start Date: 11/18/20 Status: Ordered diclofenac 1% topical gel = 1 Gm, Topically, 4 times a day, FOR PAIN., # 100 Gm, 1 Refills, [facility], 30, APPLY 1 GM TOPICALLY 4 TIMES A DAY FOR PAIN, 153, cm, 06/07/21 11:07:00 EST, Height, 105, kg, 05/31/21 15:15:00 EST, Dry Weight Start Date: 08/05/21 Status: Ordered Dilaudid 2 mg oral tablet 1 tablet = 2 mg, By Mouth, 2 times a day, PRN Pain , Severe, # 28 tablet, 0 Refills, Maintenance, 07/21/21 12:23:00 EDT, Tablet, [facility] #[id number], Partial fill upon patient request if the prescription is for a schedule II opioid drug., 153,... Start Date: 07/21/21 Status: Ordered Famotidine 0 Refills, Maintenance, 04/07/19 16:11:00 EST Start Date: 04/07/19 Status: Ordered gabapentin 800 mg oral tablet 1 tablet, By Mouth, 4 times a day, # 360 tablet, 1 Refills, [id number], 160, cm, 03/30/21 10:47:00 EST, Height, 104.6, [...] FOR ITCHING, # 90 capsule, 1 Refills, [id number], 153, cm, 06/07/21 11:07:00 EST, Height, 105, [...] 1 Refills, Maintenance, 07/30/21 12:25:00 EDT, Tablet, [facility] #[id number], Partial fill upon patient request if the prescription is for a schedule II opioid drug... Start Date: 07/30/21 Status: Ordered omeprazole 20 mg oral enteric coated capsule 1 capsule, By Mouth, Daily, # 90 capsule, 1 Refills, [id number], 160, cm, 03/30/21 10:47:00 EST, Height, 104.6, kg, 12/04/20 10:52:00 EDT, Dry Weight Start Date: 03/31/21 Status: Ordered oxybutynin 5 mg oral tablet 1 tablet, By Mouth, 3 times a day, dose increase, # 270 tablet, 1 Refills, Maintenance, 03/19/21 17:40:00 EST, [facility]/pharmacy #[id number], 160, cm, 12/04/20 10:52:00 EDT, Height, 104.6, kg, 12/04/20 10:52:00EDT, Dry Weight Start Date: 03/19/21 Status: Ordered Qvar Redihaler 40 mcg/inh inhalation aerosol = 40 mcg, Inhalation, 2 times a day, to replace flovent rinse mouth and throat after use, # 1 each,1 Refills, Maintenance, 03/30/21 20:35:00 EST, [facility]/pharmacy #[id number], Partial fill upon patient request [...] Refills, Maintenance, 10/30/20 8:45:00 EDT, Tablet, [facility]/pharmacy #[id number], Partial fill upon patient reques... Start Date: 10/30/20 Status: Ordered traZODone 150 mg oral tablet 1.5 tablet = 225 mg, By Mouth, Daily at bedtime, # 135 tablet, 1 Refills, Maintenance, 07/30/21 12:25:00 EDT, Tablet, [facility] #[id number], Partial fill upon patient request if the [...] 1 Refills, Maintenance, 07/30/21 12:22:00 EDT, Tablet, [facility] #[id number], Partial fill upon patient request if the [...] Health Status Cl inical Service Informant Chronic sinusitis Discharge Diagnosis 07/30/21 Social History Social History Type Response Tobacco Other: 25 YRS-QUIT. Sex
--- OUTSIDE RECORDS SUMMARY | 2022-12-30 08:20 | XMS_ITS | Continuity of Care Document ---
Author Name Unknown Organization [facility] Address [address] [place] [address]- Care Team Providers Care Incident Response Lead Name Role Phone Kaiden Chirinos MD Primary Care Physician [phone] Encounter [facility] [place] Date(s): 12/04/20 - 12/11/20 [facility] [address] [place], [place] [address] Encounter Diagnosis Bilateral primary osteoarthritis of knee(Discharge Diagnosis) - 12/04/20 Anxiety(Discharge Diagnosis) - 12/04/20 Urinary urgency(Discharge Diagnosis) - 12/04/20 Attending Physician: Kaiden Chirinos MD Allergies, Adverse [...] 09/22/20 16:39:00 EDT, Route to Pharmacy Electronically, [facility]/pharmacy #[id number], Partial fill upon patient request if the prescription is for a schedule II... Start Date: 09/22/20 Status: Ordered baclofen 10 mg oral tablet 10 mg, 1, tablet, By Mouth, 3 times a day, PRN, # 30 tablet, Refills 0, Tot. Refills 0, Maintenance, Spasm, 01/31/19 21:47:23 EDT, Route to Pharmacy Electronically, [id number], [facility]/pharmacy #[id number] Start Date: 01/31/19 Stop Date: [...] tablet, 1 Refills, Maintenance, 11/09/20 23:47:00EDT, Tablet, [facility]/pharmacy #[id number], Partial fill upon patient request [...] 1 Refills, Maintenance, 11/05/20 11:43:00 EDT, Tablet, [facility]/pharmacy #[id number], Partial fill upon patient request if the prescription is for a schedule II opioid drug., 160, cm, 10/30/20 8:2... Start Date: 11/05/20 Status: Ordered meloxicam 15 mg oral tablet See Instructions, PRN Pain , Moderate, 0.5 to1 tab PO daily with food, # 30 capsule, 1 Refills, Maintenance, 12/04/20 11:27:00 EDT, Tablet, [facility]/pharmacy #[id number], Partial fill upon patient request [...] Refills, Maintenance, 11/27/20 17:20:00 EDT, [id number], 160, cm, 10/30/20 8:28:00 EDT, Height, 105.5, [...] Bilateral primary osteoarthritis of knee Discharge Diagnosis 12/04/20 Anxiety Discharge Diagnosis 12/04/20 Urinary urgency Discharge Diagnosis 12/04/20 Vital Signs Most recent to oldest [Reference Range]: 1 Height 160 cm (12/04/20 10:52 AM) Weight 104.6 kg (12/04/20 10:52 AM) Oxygen Saturation [94-100 %] 96 % (12/04/20 10:52 AM) Pulse Rate [55-90 bpm] 79 bpm (12/04/20 10:52 AM) Body Mass Index [18.5-24.99] 40.86 *>HHI* (12/04/20 10:52 AM) Blood Pressure [90-138/55-84 mm Hg] 113/ 78mm Hg (12/04/20 10:52 AM) Temperature [96.8-100.4 DegF] 98.1 DegF (12/04/20 10:52 AM) Mode of Delivery (Oxygen) Room air (12/04/20 10:52 AM) Dry Weight 104.6 kg (12/04/20 10:52 AM) Social History Social History Type Response Smoking Status Former smoker, quit more than 30 days ago;Never entered on: 04/07/19 Sex
--- OUTSIDE RECORDS SUMMARY | 2022-12-30 08:20 | XMS_ITS | Continuity of Care Document ---
Author Name Unknown Organization [facility] Address [address] [place] [address]- Care Team Providers Care Vertical Lathe Operator Name Role Phone Candis CARDENAS, Kaiden Villalta Primary Care Physician [place] [facility] [place] [facility] R [id number] Date(s): 01/04/22 - 02/03/22 [facility] [address] [place], [place] [address] Attending Physician: Jc Guzmán Admitting Physician: Jc [...] 8.5 Gm,0 Refills, Maintenance, 12/22/21 10:40:00 EDT, [facility] #[id number], 2 puffs Inhalation Every 4 hours,PRN: NEEDED FOR WHEEZING/cough/shortness... Start Date: 12/22/21 Status: Ordered albuterol 0.083% inhalation solution 3 mL = 2.5 mg, Inhalation, Every 4 hours, PRN for wheezing/cough/shortness of breath, # 25 each, 0 Refills, Maintenance, 10/14/21 22:10:00 EDT, Solution, [facility] #[id number], Partial fill upon patient request if the [...] tablet, 0 Refills, Maintenance, 12/27/21 13:43:00 EDT, [facility] #[id number], 153, cm, 10/08/21 13:23:00 EDT, Height, 113.9, kg, 10/08/21 13:23:00EDT, Dry Weight Start Date: 12/27/21 Status: Ordered clonazePAM 0.5 mg oral tablet 1 tablet = 0.5 mg, By Mouth, 4 times a day, PRN Anxiety, Patient on controlled substance contract. Please do NOT fill until 09/23/2020, # 112 tablet, 0 Refills, Maintenance, 11/18/20 21:02:00 EDT, Tablet, [facility]/pharmacy #[id number], Partial fill upon patient... Start Date: 11/18/20 Status: Ordered diclofenac 1% topical gel = 1 Gm, Topically, 4 times a day, FOR PAIN., # 100 Gm, 1 Refills, [facility], 30, APPLY 1 GM TOPICALLY 4 TIMES A DAY FOR PAIN, 153, cm, 06/07/21 11:07:00 EST, Height, 105, kg, 05/31/21 15:15:00 EST, Dry Weight Start Date: 08/05/21 Status: Ordered Dilaudid 2 mg oral tablet 1 tablet = 2 mg, By Mouth, 2 times a day, PRN Pain , Severe, checked masspat, # 28 tablet, 0 Refills, Maintenance, 01/18/22 17:28:00 EDT, Tablet, [facility] #[id number], Partial fill upon patient request if the prescription is for a schedule II o... Start Date: 01/18/22 Status: Ordered Estrace Vaginal Cream 0.1 mg/g = 2 Gm, Vaginally, Daily at bedtime, 2g PV daily at bedtime x 2 weeks, then 1g PV 1-3x per week, # 42.5 Gm, 5 Refills, Maintenance, 11/09/21 11:17:00 EDT, [facility] #[id number], Partial fill upon patient request if the prescription is for a sche... Start Date: 11/09/21 Status: Ordered Estradiol Patch 0.0375 mg/24 hours twice weekly transdermal film, extended release See Instructions, APPLY 1 PATCH TOPICALLY TWICE WEEKLY DIRECTED, # 8 patch, 0 Refills, Maintenance, 02/01/22 11:03:00 EDT, [facility] #[id number], 28, APPLY 1 PATCH TOPICALLY TWICE WEEKLY DIRECTED, 153, cm, 01/04/22 13:15:00 EDT, Height, 11... Start Date: 02/01/22 Status: Ordered gabapentin 800 mg oral tablet See Instructions, TAKE 1 TABLET BY MOUTH FOUR TIMES DAILY, # 360 tablet, 0 Refills, [facility] #[id number], 153, cm, 10/08/21 13:23:00 EDT, Height, 113.9, [...] capsule, 1 Refills, Maintenance, 12/08/21 10:10:00 EDT, [facility] #[id number], 153, cm, 10/08/21 13:23:00 EDT, Height, 113.9,kg, [...] 1 Refills, Maintenance, 11/30/21 15:44:00 EDT, Tablet, [facility] #[id number], [place]... Start Date: 11/30/21 Status: Ordered levothyroxine 0.112 mg oral tablet 1 tablet, By Mouth, Daily, AVOID ANTACIDS, CALCIUM, OR IRON FOR AT LEAST 4 HOURS BEFORE OR 4 HOURS AFTER; ON AN ON AN EMPTY STOMACH, # 90 tablet, 0 Refills, Maintenance, 01/20/22 17:46:00 EDT, [facility] #[id number], 153, cm, 01/04/22 13:15:00 ED... Start Date: 01/20/22 Status: Ordered lidocaine 3% topical gel 1 application, Topically, 2 times a day, PRN as needed for pain, to replace 2% topical, # 28.5 Gm, 2 Refills, Acute 03/29/22 14:17:00 EST, 12/28/21 14:17:00 EDT, Gel, [facility] #[id number], Partial fill upon patient request if the prescription i... Start Date: 12/28/21 Stop Date: 03/29/22 Status: Ordered meloxicam 15 mg oral tablet 1/2 TO 1 TABLET, By Mouth, Daily, PRN NEEDED FOR MODERATE PAIN, # 30 tablet, 5 Refills, Maintenance, 01/10/22 20:40:00 EDT, [facility] #[id number], 153, cm, 01/04/22 13:15:00 EDT, Height, 113.9, kg, 10/08/21 13:23:00 EDT, Dry Weight Start Date: 01/10/22 Status: Ordered Nebulizer/Compressor See Instructions, # 1 each, Refills 0, Tot. Refills 0, Maintenance, Use to administer albuterol q 4hours prn cough/wheezing Dx: Mariana 19, 10/15/21 13:43:00 EDT, Supply, 153, cm, 10/08/21 13:23:00 EDT, Height, 113.9, kg, 10/08/21 13:23:00 EDT, Dry We... Start Date: 10/15/21 Status: Ordered omeprazole 20 mg oral enteric coated capsule 1 capsule, By Mouth, Daily, # 90 capsule, 0 Refills, Maintenance, 01/16/22 8:28:00 EDT, [facility] #[id number], 153, cm, 01/04/22 13:15:00 EDT, Height, 113.9, kg, 10/08/21 13:23:00 EDT, Dry Weight Start Date: 01/16/22 Status: Ordered ondansetron 4 mg oral tablet 1 tablet = 4 mg, By Mouth, Every 8 hours, PRN Nausea & Vomiting, # 30 tablet, 1 Refills, Maintenance, 11/10/21 14:47:00 EDT, [facility] #[id number], 153, cm, 10/08/21 13:23:00 EDT, Height, 113.9, kg, 10/08/21 13:23:00 EDT, Dry Weight Start Date: 11/10/21 Status: Ordered oxybutynin 5 mg oral tablet 1 tablet, By Mouth, 3 times a day, # 270 tablet, 1 Refills, 01/10/22 10:29:00 EDT, [facility] #[id number], 153, cm, 01/04/22 13:15:00 EDT, Height, 113.9, [...] Personnel Name: Kaiden Chirinos MD Address: Address: [address] [place] [address] Adult & Pediatric Medicine [place], [place] [address] [[email or web address]]
--- OUTSIDE RECORDS SUMMARY | 2022-12-30 08:20 | XMS_ITS | Continuity of Care Document ---
Author Name Unknown Organization [facility] Address [address] [place] [address]- Care Team Providers Care Telephone Supervisor Name Role Phone Candis CARDENAS, Kaiden Villalta Primary Care Physician [phone] Encounter [facility] [place] Date(s): 04/07/22 - 05/07/22 [facility] [address] [place], [place] [address] Allergies, Adverse Reactions, [...] 8.5 Gm,0 Refills, Maintenance, 12/22/21 10:40:00 EDT, [facility] #[id number], 2 puffs Inhalation Every 4 hours,PRN: NEEDED FOR WHEEZING/cough/shortness... Start Date: 12/22/21 Status: Ordered albuterol 0.083% inhalation solution 3 mL = 2.5 mg, Inhalation, Every 4 hours, PRN for wheezing/cough/shortness of breath, # 25 each, 0 Refills, Maintenance, 10/14/21 22:10:00 EDT, Solution, [facility] #[id number], Partial fill upon patient request if the prescription is for a sched... Start Date: 10/14/21 Status: Ordered [place] Saline Mist 0.65% nasal spray 2 sprays, Nares, Both, 4 times a day, # 1 each, 0 Refills, Maintenance, 02/04/22 13:32:00 EDT, [facility] #[id number], Partial fill upon patient request if the [...] tablet, 0 Refills, Maintenance, 12/27/21 13:43:00 EDT, [facility] #[id number], 153, cm, 10/08/21 13:23:00 EDT, Height, 113.9, kg, 10/08/21 13:23:00EDT, Dry Weight Start Date: 12/27/21 Status: Ordered clonazePAM 0.5 mg oral tablet 1 tablet = 0.5 mg, By Mouth, 4 times a day, PRN Anxiety, Patient on controlled substance contract. Please do NOT fill until 09/23/2020, # 112 tablet, 0 Refills, Maintenance, 11/18/20 21:02:00 EDT, Tablet, [facility]/pharmacy #[id number], Partial fill upon patient... Start Date: 11/18/20 Status: Ordered diclofenac 1% topical gel = 1 Gm, Topically, 4 times a day, FOR PAIN., # 100 Gm, 1 Refills, [facility], 30, APPLY 1 GM TOPICALLY 4 TIMES A DAY FOR PAIN, 153, cm, 06/07/21 11:07:00 EST, Height, 105, kg, 05/31/21 15:15:00 EST, Dry Weight Start Date: 08/05/21 Status: Ordered Dilaudid 2 mg oral tablet 1 tablet = 2 mg, By Mouth, 2 times a day, PRN Pain , Severe, checked masspat, # 56 tablet, 0 Refills, Maintenance, 05/05/22 17:13:00 EST, Tablet, [facility] #[id number], Partial fill upon patient request if the prescription is for a schedule II o... Start Date: 05/05/22 Status: Ordered Estrace Vaginal Cream 0.1 mg/g = 2 Gm, Vaginally, Daily at bedtime, 2g PV daily at bedtime x 2 weeks, then 1g PV 1-3x per week, # 42.5 Gm, 5 Refills, Maintenance, 11/09/21 11:17:00 EDT, [facility] #[id number], Partial fill upon patient request if the prescription is for a sche... Start Date: 11/09/21 Status: Ordered Estradiol Patch 0.0375 mg/24 hours twice weekly transdermal film, extended release See Instructions, APPLY 1 PATCH TOPICALLY TWICE WEEKLY DIRECTED, # 8 patch, 6 Refills, Maintenance, 03/23/22 16:10:00 EST, [facility] #[id number], 28, APPLY 1 PATCH TOPICALLY TWICE WEEKLY DIRECTED, 153, cm, 01/04/22 13:15:00 EDT, Height, 11... Start Date: 03/23/22 Status: Ordered Flonase 50 mcg/inh nasal spray 1 sprays, Nares, Both, 2 times a day, # 16 Gm, 0 Refills, Maintenance, 04/19/22 14:04:00 EST, Veteran, [facility] #[id number], Partial fill upon patient request if the prescription is for a schedule II opioid drug., 1 sprays Nares, Both 2 times a d... Start Date: 04/19/22 Status: Ordered fluconazole 150 mg oral tablet 1 tablet = 150 mg, By Mouth, Once, PRN vaginal yeast infection, # 1 tablet, 0 Refills, Soft Stop, 03/15/22 10:42:00 EST, Tablet, [facility] #[id number], Partial fill upon patient request if the prescription is for a schedule II opioid drug., 153,... Start Date: 03/15/22 Status: Ordered gabapentin 800 mg oral tablet 1 tablet, By Mouth, 4 times a day, # 360 tablet, 1 Refills, Maintenance, 04/19/22 12:59:00 EST, [facility] #[id number], 153, cm, 01/04/22 13:15:00 EDT, Height, 113.9, [...] capsule, 1 Refills, Maintenance, 12/08/21 10:10:00 EDT, [facility] #[id number], 153, cm, 10/08/21 13:23:00 EDT, Height, 113.9,kg, [...] 1 Refills, Maintenance, 04/28/22 13:51:00 EST, Tablet, [facility] #[id number], Partial fill upon patient request if the prescription is for a schedule II opioid drug., 153, cm... Start Date: 04/28/22 Status: Ordered lidocaine 4% topical cream 1 application, Topically, 3 times a day, PRN pain of forearms, # 30 Gm, 1 Refills, Acute 06/23/22 16:24:00 EST, 04/25/22 16:23:00 EST, Cream, [facility] #[id number], Partial fill upon patient request if the prescription is for a schedule II opioi... Start Date: 04/25/22 Stop Date: 06/23/22 Status: Ordered meloxicam 15 mg oral tablet 1/2 TO 1 TABLET, By Mouth, Daily, PRN NEEDED FOR MODERATE PAIN, # 30 tablet, 5 Refills, Maintenance, 01/10/22 20:40:00 EDT, [facility] #[id number], 153, cm, 01/04/22 13:15:00 EDT, Height, 113.9, [...] capsule, 1 Refills, Maintenance, 04/19/22 12:41:00 EST, [facility] #[id number], 153, cm, 01/04/22 13:15:00 EDT, Height, 113.9, kg, 10/08/21 13:23:00 EDT, Dry Weight Start Date: 04/19/22 Status: Ordered ondansetron 4 mg oral tablet 1 tablet, By Mouth, Every 8 hours, PRN NEEDED FOR NAUSEA OR VOMITING, # 30 tablet, 1 Refills, Maintenance, 04/14/22 21:15:00 EST, [facility] #[id number], 153, cm, 01/04/22 13:15:00 EDT, Height, 113.9, kg, 10/08/21 13:23:00 EDT, Dry Weight Start Date: 04/14/22 Status: Ordered oxybutynin 5 mg oral tablet 1 tablet, By Mouth, 3 times a day, # 270 tablet, 1 Refills, 01/10/22 10:29:00 EDT, [facility] #[id number], 153, cm, 01/04/22 13:15:00 EDT, Height, 113.9, [...] 04/14/22 21:16:00 EST, Route to Pharmacy Electronically, [facility] #[id number], Partial fill upon patient request if the... [...] Personnel Name: Candis CARDENAS, Kaiden Villalta Position: [facility] Primary Care Physician Member Role: PCP Address: Address: [address] [place] [address] Adult [place] [address]- Care Team Related Persons Name: RODOLFO SHEIKH Address: home [address] [place] [id number] Name: CHIARA TEE Address: [address] [place] [address] [place] [id number]
--- OUTSIDE RECORDS SUMMARY | 2022-12-30 08:20 | XMS_ITS | Continuity of Care Document ---
Author Name Unknown Organization [facility] Address [address] [place] [address]- Care Team Providers Care Singing Telegram Performer Name Role Phone Kaiden Chirinos MD Primary Care Physician [phone] Encounter [facility] Date(s): 12/07/21 - 01/06/22 [facility] [address] [place], [place] [address] Allergies, Adverse Reactions, Alerts Substance Reaction Severity [...] 8.5 Gm,0 Refills, Maintenance, 12/22/21 10:40:00 EDT, [facility] #[id number], 2 puffs Inhalation Every 4 hours,PRN: NEEDED FOR WHEEZING/cough/shortness... Start Date: 12/22/21 Status: Ordered albuterol 0.083% inhalation solution 3 mL = 2.5 mg, Inhalation, Every 4 hours, PRN for wheezing/cough/shortness of breath, # 25 each, 0 Refills, Maintenance, 10/14/21 22:10:00 EDT, Solution, [facility] #[id number], Partial fill upon patient request if the [...] tablet, 0 Refills, Maintenance, 12/27/21 13:43:00 EDT, [facility] #[id number], 153, cm, 10/08/21 13:23:00 EDT, Height, 113.9, kg, 10/08/21 13:23:00EDT, Dry Weight Start Date: 12/27/21 Status: Ordered clonazePAM 0.5 mg oral tablet 1 tablet = 0.5 mg, By Mouth, 4 times a day, PRN Anxiety, Patient on controlled substance contract. Please do NOT fill until 09/23/2020, # 112 tablet, 0 Refills, Maintenance, 11/18/20 21:02:00 EDT, Tablet, [facility]/pharmacy #[id number], Partial fill upon patient... Start Date: 11/18/20 Status: Ordered diclofenac 1% topical gel = 1 Gm, Topically, 4 times a day, FOR PAIN., # 100 Gm, 1 Refills, [id number], 30, APPLY 1 GM TOPICALLY 4 TIMES A DAY FOR PAIN, 153, cm, 06/07/21 11:07:00 EST, Height, 105, kg, 05/31/21 15:15:00 EST, Dry Weight Start Date: 08/05/21 Status: Ordered Dilaudid 2 mg oral tablet 1 tablet = 2 mg, By Mouth, 2 times a day, PRN Pain , Severe, checked masspat, # 28 tablet, 0 Refills, Maintenance, 01/05/22 10:35:00 EDT, Tablet, [facility] #[id number], Partial fill upon patient request if the prescription is for a schedule II o... Start Date: 01/05/22 Status: Ordered Estrace Vaginal Cream 0.1 mg/g = 2 Gm, Vaginally, Daily at bedtime, 2g PV daily at bedtime x 2 weeks, then 1g PV 1-3x per week, # 42.5 Gm, 5 Refills, Maintenance, 11/09/21 11:17:00 EDT, [facility] #[id number], Partial fill upon patient request if the prescription is for a sche... Start Date: 11/09/21 Status: Ordered estradiol 0.0375 mg/24 hours twice weekly transdermal film, extended release See Instructions, 1 patch Topically, change patch twice a week, # 1 pack/packet, 1 Refills, Maintenance, 12/07/21 10:42:00 EDT, [facility] #[id number], Partial fill upon patient request if the prescription is for a schedule II opioid drug., 153,... Start Date: 12/07/21 Status: Ordered gabapentin 800 mg oral tablet See Instructions, TAKE 1 TABLET BY MOUTH FOUR TIMES DAILY, # 360 tablet, 0 Refills, [facility] #[id number], 153, cm, 10/08/21 13:23:00 EDT, Height, 113.9, [...] capsule, 1 Refills, Maintenance, 12/08/21 10:10:00 EDT, [facility] #[id number], 153, cm, 10/08/21 13:23:00 EDT, Height, 113.9,kg, [...] tablet, 1 Refills, Maintenance, 07/30/21 12:25:00 EDT, [facility], [facility] #[id number], Partial fill upon patient request if the prescription is for a schedule II opioid drug... Start Date: 07/30/21 Status: Ordered levothyroxine 0.1 mg oral tablet 1 tablet = 100 mcg, By Mouth, Daily, dose increase, # 90 tablet, 0 Refills, Maintenance, 11/01/21 16:08:00 EDT, [facility] #[id number], Please discontinue 88ug, 153, cm, 10/08/21 13:23:00 [...] tablet, 1 Refills, Maintenance, 11/30/21 15:44:00 EDT, [facility] #[id number], [place]... Start Date: 11/30/21 Status: Ordered lidocaine 3% topical gel 1 application, Topically, 2 times a day, PRN as needed for pain, to replace 2% topical, # 28.5 Gm, 2 Refills, Acute 03/29/22 14:17:00 EST, 12/28/21 14:17:00 EDT, Gel, [facility] #[id number], Partial fill upon patient request if the prescription i... Start Date: 12/28/21 Stop Date: 03/29/22 Status: Ordered lidocaine 4% topical cream 1 application, Topically, 2 times a day, PRN Pain , Mild, # 30 Gm, 1 Refills, Acute 01/27/22 17:31:00 EDT, 12/28/21 17:31:00 EDT, Cream, [facility] #[id number], Partial fill upon patient requestif the prescription is for a schedule II opioid cedrick... Start Date: 12/28/21 Stop Date: 01/27/22 Status: Ordered meloxicam 15 mg oral tablet 1/2 TO 1 TABLET, By Mouth, Daily, PRN NEEDED FOR MODERATE PAIN, # 30 tablet, 1 Refills, :04:00 EDT, [facility] #[id number], 153, cm, 10/08/21 13:23:00 EDT, Height, 113.9, [...] 90 capsule, 0 Refills, 09/27/21 14:31:00 EDT, [facility] #[id number], 153, cm, 08/10/21 11:19:00 EDT, Height, 105, kg, 05/31/21 15:15:00 EST, Dry Weight Start Date: 09/27/21 Status: Ordered ondansetron 4 mg oral tablet 1 tablet = 4 mg, By Mouth, Every 8 hours, PRN Nausea & Vomiting, # 30 tablet, 1 Refills, Maintenance, 11/10/21 14:47:00 EDT, [facility] #[id number], 153, cm, 10/08/21 13:23:00 EDT, Height, 113.9, kg, 10/08/21 13:23:00 EDT, Dry Weight Start Date: 11/10/21 Status: Ordered oxybutynin 5 mg oral tablet 1 tablet, By Mouth, 3 times a day, # 270 tablet, 1 Refills, 01/05/22 9:12:00 EDT, [facility] #[id number], 153, cm, 01/04/22 13:15:00 EDT, Height, 113.9, [...] 01/11/22 13:32:00 EDT, 01/04/22 13:32:00 EDT, Tablet, [facility] #[id number], Partial fill upon patient request if the [...] Personnel Name: Candis CARDENAS, Kaiden Villalta Address: [address] [place] [address] Adult [facility] Pediatric Medicine [place], [place] [address]
--- OUTSIDE RECORDS SUMMARY | 2022-12-30 08:20 | XMS_ITS | Continuity of Care Document ---
Author Name Unknown Organization [facility] Address [address] [place] [address]- Care Team Providers Care Party Host/Hostess Name Role Phone Candis CARDENAS, Kaiden Villalta Primary Care Physician Encounter [facility] Date(s): 03/03/22 - 04/02/22 [facility] [address] [place], [place] [address] Allergies, Adverse Reactions, Alerts Substance Reaction Severity [...] 8.5 Gm,0 Refills, Maintenance, 12/22/21 10:40:00 EDT, [facility] #[id number], 2 puffs Inhalation Every 4 hours,PRN: NEEDED FOR WHEEZING/cough/shortness... Start Date: 12/22/21 Status: Ordered albuterol 0.083% inhalation solution 3 mL = 2.5 mg, Inhalation, Every 4 hours, PRN for wheezing/cough/shortness of breath, # 25 each, 0 Refills, Maintenance, 10/14/21 22:10:00 EDT, Solution, [facility] #[id number], Partial fill upon patient request if the prescription is for a sched... Start Date: 10/14/21 Status: Ordered [place] Saline Mist 0.65% nasal spray 2 sprays, Nares, Both, 4 times a day, # 1 each, 0 Refills, Maintenance, 02/04/22 13:32:00 EDT, [facility] #[id number], Partial fill upon patient request if the [...] tablet, 0 Refills, Maintenance, 12/27/21 13:43:00 EDT, [facility] #[id number], 153, cm, 10/08/21 13:23:00 EDT, Height, 113.9, kg, 10/08/21 13:23:00EDT, Dry Weight Start Date: 12/27/21 Status: Ordered clonazePAM 0.5 mg oral tablet 1 tablet = 0.5 mg, By Mouth, 4 times a day, PRN Anxiety, Patient on controlled substance contract. Please do NOT fill until 09/23/2020, # 112 tablet, 0 Refills, Maintenance, 11/18/20 21:02:00 EDT, Tablet, [facility]/pharmacy #[id number], Partial fill upon patient... Start Date: 11/18/20 Status: Ordered diclofenac 1% topical gel = 1 Gm, Topically, 4 times a day, FOR PAIN., # 100 Gm, 1 Refills, [facility], 30, APPLY 1 GM TOPICALLY 4 TIMES A DAY FOR PAIN, 153, cm, 06/07/21 11:07:00 EST, Height, 105, kg, 05/31/21 15:15:00 EST, Dry Weight Start Date: 08/05/21 Status: Ordered Dilaudid 2 mg oral tablet 1 tablet = 2 mg, By Mouth, 2 times a day, PRN Pain , Severe, checked masspat, # 28 tablet, 0 Refills, Maintenance, 03/23/22 22:13:00 EST, Tablet, [facility] #[id number], Partial fill upon patient request if the prescription is for a schedule II o... Start Date: 03/23/22 Status: Ordered Estrace Vaginal Cream 0.1 mg/g = 2 Gm, Vaginally, Daily at bedtime, 2g PV daily at bedtime x 2 weeks, then 1g PV 1-3x per week, # 42.5 Gm, 5 Refills, Maintenance, 11/09/21 11:17:00 EDT, [facility] #[id number], Partial fill upon patient request if the prescription is for a sche... Start Date: 11/09/21 Status: Ordered Estradiol Patch 0.0375 mg/24 hours twice weekly transdermal film, extended release See Instructions, APPLY 1 PATCH TOPICALLY TWICE WEEKLY DIRECTED, # 8 patch, 6 Refills, Maintenance, 03/23/22 16:10:00 EST, [facility] #[id number], 28, APPLY 1 PATCH TOPICALLY TWICE WEEKLY DIRECTED, 153, cm, 01/04/22 13:15:00 EDT, Height, 11... Start Date: 03/23/22 Status: Ordered fluconazole 150 mg oral tablet 1 tablet = 150 mg, By Mouth, Once, PRN vaginal yeast infection, # 1 tablet, 0 Refills, Soft Stop, 03/15/22 10:42:00 EST, Tablet, [facility] #[id number], Partial fill upon patient request if the prescription is for a schedule II opioid drug., 153,... Start Date: 03/15/22 Status: Ordered gabapentin 800 mg oral tablet See Instructions, TAKE 1 TABLET BY MOUTH FOUR TIMES DAILY, # 360 tablet, 0 Refills, [facility] #[id number], 153, cm, 10/08/21 13:23:00 EDT, Height, 113.9, [...] capsule, 1 Refills, Maintenance, 12/08/21 10:10:00 EDT, [facility] #[id number], 153, cm, 10/08/21 13:23:00 EDT, Height, 113.9,kg, [...] 1 Refills, Maintenance, 03/14/22 15:04:00 EST, Tablet, [facility] #[id number], Partial fill upon patient request if the prescription is for a schedule II opioid drug., 153, cm... Start Date: 03/14/22 Status: Ordered meloxicam 15 mg oral tablet 1/2 TO 1 TABLET, By Mouth, Daily, PRN NEEDED FOR MODERATE PAIN, # 30 tablet, 5 Refills, Maintenance, 01/10/22 20:40:00 EDT, [facility] #[id number], 153, cm, 01/04/22 13:15:00 EDT, Height, 113.9, [...] capsule, 0 Refills, Maintenance, 01/16/22 8:28:00 EDT, [facility] #[id number], 153, cm, 01/04/22 13:15:00 EDT, Height, 113.9, kg, 10/08/21 13:23:00 EDT, Dry Weight Start Date: 01/16/22 Status: Ordered ondansetron 4 mg oral tablet 1 tablet, By Mouth, Every 8 hours, PRN NEEDED FOR NAUSEA OR VOMITING, # 30 tablet, 0 Refills, Maintenance, 03/01/22 11:29:00 EST, [facility] #[id number], 153, cm, 01/04/22 13:15:00 EDT, Height, 113.9, kg, 10/08/21 13:23:00 EDT, Dry Weight Start Date: 03/01/22 Status: Ordered oxybutynin 5 mg oral tablet 1 tablet, By Mouth, 3 times a day, # 270 tablet, 1 Refills, 01/10/22 10:29:00 EDT, [facility] #[id number], 153, cm, 01/04/22 13:15:00 EDT, Height, 113.9, [...] 03/14/22 15:10:00 EST, Route to Pharmacy Electronically, [facility] #[id number], Partial fill upon patient request if the... [...] Care Physician Member Role: PCP Address: Address: [address] [place] [address] Adult [place] [address]- Care Team Related Persons Name: RODOLFO SHEIKH Address: home [address] [place] [address] Name: CHIARA TEE Address: home [address] [place] [address]
--- OUTSIDE RECORDS SUMMARY | 2022-12-30 08:20 | XMS_ITS | Continuity of Care Document ---
Author Name Unknown Organization [facility] Address [address] [place] [address]- Care Team Providers Care Hedis Registered Nurse Rn Name Role Phone Kaiden Chirinos MD Primary Care Physician [phone] [id number] Date(s): 05/11/21 - 05/18/21 [facility] [address] [place] [address]- Encounter Diagnosis Chondromalacia, right knee(Discharge Diagnosis) - 05/11/21 Bilateral primary osteoarthritis of knee(Discharge Diagnosis) - 05/11/21 Tear of lateral meniscus of right knee(Discharge Diagnosis) - 05/11/21 Hypothyroidism(Discharge Diagnosis) - 05/11/21 Abscess of buttock, right(Discharge Diagnosis) - 05/11/21 Attending Physician: Kaiden Chirinos MD Allergies, Adverse [...] # 8.5 each, 0 Refills, [facility] , [facility], INHALE 2 PUFFS BY MOUTH EVERY 4 HOURS NEEDED FOR WHEEZING, 160, cm, 03/30/21 10:47:00 EST, Height, 104.6, kg, 12/04/20 10:52:00 EDT, Dry Weight Start Date: 04/28/21 Status: Ordered amitriptyline 10 mg oral tablet 10 mg, 1, tablet, By Mouth, Daily at bedtime, # 90 tablet, Refills 1, Tot. Refills 1, Maintenance, 12/24/20 16:08:00 EDT, Route to Pharmacy Electronically, [facility]/pharmacy #[id number], Partial fill upon patient request if the prescription is for a schedule II... Start Date: 12/24/20 Status: Ordered baclofen 10 mg oral tablet 10 mg, 1, tablet, By Mouth, 3 times a day, PRN, # 30 tablet, Refills 0, Tot. Refills 0, Maintenance, Spasm, 01/31/19 21:47:23 EDT, Route to Pharmacy Electronically, [id number], [facility]/pharmacy #[id number] Start Date: 01/31/19 Stop Date: 02/14/19 Status: Ordered benzonatate 100 mg oral capsule 2 capsule, By Mouth, 3 times a day, PRN NEEDED FOR COUGH, # 30 capsule, 1 Refills, Physician Stop 03/19/22 17:38:00 EST, 02/19/22 16:55:00 EDT, [facility]/pharmacy #[id number], 160, cm, 12/04/20 10:52:00 EDT, Height, 104.6, kg, 12/04/20 10:52:00 EDT, Dry Weight Start Date: 02/19/22 Stop Date: 03/19/22 Status: Ordered benzonatate 100 mg oral capsule 2 capsule, By Mouth, 3 times a day, PRN NEEDED FOR COUGH, # 30 capsule, 1 Refills, Physician Stop 02/19/22 16:55:00 EDT, 02/19/21 16:54:00 EDT, [facility]/pharmacy #[id number], 160, cm, 12/04/20 [...] 07/12/21 15:21:00 EDT, 05/14/21 15:19:00 EST, Tablet, [facility]/pharmacy #[id number], Partial fill upon patient request if the prescription is for a schedule II opioid dr... Start Date: 05/14/21 Stop Date: 07/12/21 Status: Ordered Famotidine 0 Refills, Maintenance, 04/07/19 16:11:00 EST Start Date: 04/07/19 Status: Ordered gabapentin 800 mg oral tablet 1 tablet, By Mouth, 4 times a day, # 360 tablet, 1 Refills, [facility] [id number], 160, cm, 03/30/21 10:47:00 EST, Height, 104.6, [...] 1 Refills, Maintenance, 02/25/21 8:28:00 EST, Capsule, [facility]/pharmacy #[id number], Partial fill [...] 1 Refills, Maintenance, 05/14/21 15:23:00 EST, Tablet, [facility]/pharmacy #[id number], Partial fill upon patient request if the prescription is for a schedule II opioid drug., 160, c... Start Date: 05/14/21 Status: Ordered meloxicam 15 mg oral tablet 1/2 TO 1 TABLET, By Mouth, Daily, PRN NEEDED FOR MODERATE PAIN, # 30 tablet, 1 Refills, [facility], 160, cm, 12/04/20 10:52:00 EDT, Height, 104.6, kg, 12/04/20 10:52:00 EDT, Dry Weight Start Date: 01/22/21 Status: Ordered omeprazole 20 mg oral enteric coated capsule 1 capsule, By Mouth, Daily, # 90 capsule, 1 Refills, [facility] 40[facility], 160, cm, 03/30/21 10:47:00 EST, Height, 104.6, [...] Effective Dates Health Status Clinical Service Informant Hypothyroidism Discharge Diagnosis 05/11/21 Abscess of buttock, right Discharge Diagnosis 05/11/21 Chondromalacia, right knee Discharge Diagnosis 05/11/21 Bilateral primary osteoarthritis of knee Discharge Diagnosis 05/11/21 Tear of lateral meniscus of right knee Discharge Diagnosis 05/11/21 Social History Social History Type Response Tobacco Other: 25 YRS-QUIT. Sex
--- OUTSIDE RECORDS SUMMARY | 2022-12-30 08:20 | XMS_ITS | Continuity of Care Document ---
Author Name Unknown Organization [facility] Address [address] [place] [address]- Care Team Providers Care Package Reinspector Name Role Phone Candis CARDENAS, Kaiden Villalta Primary Care Physician Encounter [facility] Date(s): 03/06/22 - 04/05/22 [facility] [address] [place], [place] [address] Allergies, Adverse Reactions, Alerts Substance [...] 8.5 Gm,0 Refills, Maintenance, 12/22/21 10:40:00 EDT, [facility] #[id number], 2 puffs Inhalation Every 4 hours,PRN: NEEDED FOR WHEEZING/cough/shortness... Start Date: 12/22/21 Status: Ordered albuterol 0.083% inhalation solution 3 mL = 2.5 mg, Inhalation, Every 4 hours, PRN for wheezing/cough/shortness of breath, # 25 each, 0 Refills, Maintenance, 10/14/21 22:10:00 EDT, Solution, [facility] #[id number], Partial fill upon patient request if the prescription is for a sched... Start Date: 10/14/21 Status: Ordered [place] Saline Mist 0.65% nasal spray 2 sprays, Nares, Both, 4 times a day, # 1 each, 0 Refills, Maintenance, 02/04/22 13:32:00 EDT, [facility] #[id number], Partial fill upon patient request if the [...] tablet, 0 Refills, Maintenance, 12/27/21 13:43:00 EDT, [facility] #[id number], 153, cm, 10/08/21 13:23:00 EDT, Height, 113.9, [...] # 100 Gm, 1 Refills, [facility], 30, APPLY 1 GM TOPICALLY 4 TIMES A DAY FOR PAIN, 153, cm, 06/07/21 11:07:00 EST, Height, 105, kg, 05/31/21 15:15:00 EST, Dry Weight Start Date: 08/05/21 Status: Ordered Dilaudid 2 mg oral tablet 1 tablet = 2 mg, By Mouth, 2 times a day, PRN Pain , Severe, checked masspat, # 28 tablet, 0 Refills, Maintenance, 03/23/22 22:13:00 EST, Tablet, [facility] #[id number], Partial fill upon patient request if the prescription is for a schedule II o... Start Date: 03/23/22 Status: Ordered Estrace Vaginal Cream 0.1 mg/g = 2 Gm, Vaginally, Daily at bedtime, 2g PV daily at bedtime x 2 weeks, then 1g PV 1-3x per week, # 42.5 Gm, 5 Refills, Maintenance, 11/09/21 11:17:00 EDT, [facility] #[id number], Partial fill upon patient request if the prescription is for a sche... Start Date: 11/09/21 Status: Ordered Estradiol Patch 0.0375 mg/24 hours twice weekly transdermal film, extended release See Instructions, APPLY 1 PATCH TOPICALLY TWICE WEEKLY DIRECTED, # 8 patch, 6 Refills, Maintenance, 03/23/22 16:10:00 EST, [facility] #[id number], 28, APPLY 1 PATCH TOPICALLY TWICE WEEKLY DIRECTED, 153, cm, 01/04/22 13:15:00 EDT, Height, 11... Start Date: 03/23/22 Status: Ordered fluconazole 150 mg oral tablet 1 tablet = 150 mg, By Mouth, Once, PRN vaginal yeast infection, # 1 tablet, 0 Refills, Soft Stop, 03/15/22 10:42:00 EST, Tablet, [facility] #[id number], Partial fill upon patient request if the prescription is for a schedule II opioid drug., 153,... Start Date: 03/15/22 Status: Ordered gabapentin 800 mg oral tablet See Instructions, TAKE 1 TABLET BY MOUTH FOUR TIMES DAILY, # 360 tablet, 0 Refills, [facility] #[id number], 153, cm, 10/08/21 13:23:00 EDT, Height, 113.9, [...] capsule, 1 Refills, Maintenance, 12/08/21 10:10:00 EDT, [facility] #[id number], 153, cm, 10/08/21 13:23:00 EDT, Height, 113.9,kg, [...] 1 Refills, Maintenance, 03/14/22 15:04:00 EST, Tablet, [facility] #[id number], Partial fill upon patient request if the prescription is for a schedule II opioid drug., 153, cm... Start Date: 03/14/22 Status: Ordered meloxicam 15 mg oral tablet 1/2 TO 1 TABLET, By Mouth, Daily, PRN NEEDED FOR MODERATE PAIN, # 30 tablet, 5 Refills, Maintenance, 01/10/22 20:40:00 EDT, [facility] #[id number], 153, cm, 01/04/22 13:15:00 EDT, Height, 113.9, [...] capsule, 0 Refills, Maintenance, 01/16/22 8:28:00 EDT, [facility] #[id number], 153, cm, 01/04/22 13:15:00 EDT, Height, 113.9, kg, 10/08/21 13:23:00 EDT, Dry Weight Start Date: 01/16/22 Status: Ordered ondansetron 4 mg oral tablet 1 tablet, By Mouth, Every 8 hours, PRN NEEDED FOR NAUSEA OR VOMITING, # 30 tablet, 0 Refills, Maintenance, 03/01/22 11:29:00 EST, [facility] #[id number], 153, cm, 01/04/22 13:15:00 EDT, Height, 113.9, kg, 10/08/21 13:23:00 EDT, Dry Weight Start Date: 03/01/22 Status: Ordered oxybutynin 5 mg oral tablet 1 tablet, By Mouth, 3 times a day, # 270 tablet, 1 Refills, 01/10/22 10:29:00 EDT, [facility] #[id number], 153, cm, 01/04/22 13:15:00 EDT, Height, 113.9, [...] 03/14/22 15:10:00 EST, Route to Pharmacy Electronically, [facility] #[id number], Partial fill upon patient request if the... [...] Care Physician Member Role: PCP Address: Address: [address] [place] [address] Adult & [place] [address]- Care Team Related Persons Name: RODOLFO SHEIKH Address: home [address] [facility] [address] [facility] [address] [place] [id number] Name: CHIARA TEE Address: home [address] [place] [address] [address] [place] [id number]
--- OUTSIDE RECORDS SUMMARY | 2022-12-30 08:21 | XMS_ITS | Continuity of Care Document ---
Author Name Unknown Organization [facility] Address [address] [place] [address]- Care Team Providers Care Financial Reporting Accountant Name Role Phone Not on Staff, PCP Primary Care Physician Unavail able Encounter [facility] Date(s): 04/07/19 - 04/07/[address] [address]- [facility] Discharge Disposition: A-D/C Home Attending Physician: Kendall Rice DO Admitting Physician: Kendall Rice DO Referring Physician: Not on Staff, Referring MD Allergies, Adverse Reactions, Alerts Substance Reaction Severity Status morphine Active Adhesive Bandage Active Percocet 7.5/325 Active Medications baclofen 10 mg oral tablet 10 mg, 1, tablet, By Mouth, 3 times a day, PRN, # 30 tablet, Refills 0, Tot. Refills 0, Maintenance, Spasm, 01/31/19 21:47:23 EDT, Route to Pharmacy Electronically, [id number], [facility]/pharmacy #[id number] Start Date: 01/31/19 Stop Date: 02/14/19 Status: Ordered clonazePAM 0.5 mg oral tablet 1 tablet = 0.5 mg, By Mouth, 3 times a day, 0 Refills, Maintenance, 04/07/19 16:13:00 EST, Tablet Start Date: 04/07/19 Status: Ordered duloxetine 30 mg oral enteric coated capsule 3 capsule = 90 mg, By Mouth, Daily, do not crush or chew, # 90 capsule, 0 Refills, Maintenance, 04/07/19 16:12:00 EST, CR Capsule Start Date: 04/07/19 Status: Ordered Famotidine 0 Refills, Maintenance, 04/07/19 16:11:00 EST Start Date: 04/07/19 Status: Ordered gabapentin 800 mg oral tablet 1 tablet = 800 mg, By Mouth, 4 times a day, 0 Refills, Maintenance, 04/07/19 16:11:00 EST Start Date: 04/07/19 Status: Ordered HydrOXYzine 0 Refills, Maintenance, 04/07/19 16:12:00 EST Start Date: 04/07/19 Status: Ordered Keflex monohydrate 500 mg oral capsule 1 capsule = 500 mg, By Mouth, 4 times a day, for 10 days, # 40 capsule, 0 Refills, Acute 04/17/19 17:52:00 EST, 04/07/19 17:52:00 EST, Capsule, [facility]/pharmacy #[id number], 160, cm, 04/07/19 16:07:00 EST, Height, 75, kg, 04/07/19 16:07:00 EST, Dry Weight Start Date: 04/07/19 Stop Date: 04/17/19 Status: Ordered levothyroxine 75 mcg (0.075 mg) oral tablet 1 tablet = 75 mcg, By Mouth, Daily, # 30 tablet, 0 Refills, Maintenance, 05/25/16 16:44:53, Tablet Start Date: 05/25/16 Status: Ordered Problem List Condition Effective Dates Status Health Status Inform ant Anxiety(Confirmed) Active Chronic neck pain(Confirmed) Active Hypothyroidism(Confirmed) Active Legally blind(Confirmed) Active Moderate obesity(Confirmed) Active Ruptured ear drum(Confirmed) Active Results Orders for Microbiology Reports Name Date Group A Strep Screen and Culture 9 Microbiology Reports TEST:Group A Strep Screen and Culture STATUS:Auth (Verified) BODY SITE: SOURCE:THROAT COLLECTED DATE/TIME:04/07/19 4:41 PM Group A Strep Screen and Culture SPECIMEN DESCRIPTION : THROAT SWAB SPECIAL REQUESTS : NONE DIRECT EXAM : RAPID GROUP A SCREEN IS POSITIVE, CULTURE NOT INDICATED. CULTURE : RAPID GROUP A SCREEN IS POSITIVE, CULTURE NOT INDICATED. REPORT STATUS : FINAL 04/07/2019 Radiology Reports * Exam Date Time Procedure Performing Provider Status 04/07/19 4:58 PM Neck Soft Tissue Magdy Pearson T; Tiera th (Verified) Notes: (Neck Soft Tissue) Reason For Exam: Pain RESULT: Neck Soft Tissue Neck Soft Tissue Reason: Shortness of Breath; Clinical Question(s): CHF; Hx of Present Illness: pt report increasingswelling and pain to the left side of the face numbness of the tongue and throat. The pt reports symptoms began previously. Now reporting increased swelling over the last day prior to arrival. The ptreports worsening asthma sensation / CHF COMPARISON: None FINDINGS: Patent nasopharynx. No abnormal adenoidal enlargement. Normal retropharyngeal and retrotracheal soft tissues. Normal airway. Status post ACDF at C5-C7. Prominent bilateral transverse processes of C7, right larger than left, versus small cervical ribs. IMPRESSION: No evidence of acute abnormality. WSN: [id number] Dictated By: Bakari Niteo MD Dictated Date/Time: 04/07/19 5:08 pm Reviewed By: Bakari Nieto MD Signed By: Bakari Nieto MD Signed Date/Time: 04/07/19 5:08 pm Transcribed By: PIERO Transcribed Date/Time: 04/07/19 5:07 pm * Exam Date Time Procedure Performing Provider Status 04/07/19 4:58 PM Chest 2 Views Frontal and Lat Pearson , Paulouthao T; Auth (Verified) Notes: (Chest 2 Views Frontal and Lat) Reason For Exam: Shortness of Breath RESULT: Chest 2 Views Frontal and Lat Chest 2 Views Frontal and Lat Reason: Shortness of Breath; Clinical Question(s): CHF; Hx of Present Illness: pt report increasingswelling and pain to the left side of the face numbness of the tongue and throat. The pt reports symptoms began previously. Now reporting increased swelling over the last day prior to arrival. The ptreports worsening asthma sensation / CHF COMPARISON: 01/31/2019 FINDINGS: LINES AND TUBES: None. LUNGS AND PLEURA: Clear lungs. Normal pulmonary vascularity. No pleural effusion. No pneumothorax. HEART, MEDIASTINUM AND FERNANDO: Heart is normal in size. Normal mediastinal and hilar contour. BONES AND SOFT TISSUES: No acute abnormality. There are surgical clips in the right upper quadrant. Status post ACDF. IMPRESSION: No evidence of acute abnormality. WSN: [id number] Dictated By: Bakari Nieto MD Dictated Date/Time: 04/07/19 5:07 pm Reviewed By: Bakari Nieto MD Signed By: Bakari Nieto MD Signed Date/Time: 04/07/19 5:07 pm Transcribed By: PIERO Transcribed Date/Time: 04/07/19 5:06 pm Vital Signs Most recent to oldest [Reference Range]: 1 2 Height 160 cm (04/07/19 6:03 PM) 160 cm (04/07/19 4:07 PM) Weight 75 kg (04/07/19 4:07 PM) Oxygen Saturation [94-100 %] 100 % (04/07/19 6:03 PM) 97 % (04/07/19 4:07 PM) Pulse Rate [55-90 bpm] 70 bpm (04/07/19 6:03 PM) 89 bpm (04/07/19 4:07 PM) Blood Pressure [90-138/55-84 mm Hg] 133/ 72mm Hg (04/07/19 6:03 PM) 127/82mm Hg (04/07/19 4:07 PM) Respiratory Rate [16-30 br/min] 18 br/mi n (04/07/19 6:03 PM) 18 br/min (04/07/19 4:07 PM) Temperature [96.8-100.4 DegF] 98.3 DegF (04/07/19 4:07 PM) Mode of Delivery (Oxygen) Room air (04/07/19 6:03 PM) Room air (04/07/19 4:07 PM) Blood pressure sites Arm, left (04/07/19 6:03 PM) Temperature Route Temporal (04/07/19 4:07 PM) Dry Weight 75 kg (04/07/19 4:07 PM) Social History Social History Type Response Smoking Status Former smoker, quit more than 30 days ago;Never entered on: 04/07/19 Sex
--- OUTSIDE RECORDS SUMMARY | 2022-12-30 08:21 | XMS_ITS | Continuity of Care Document ---
Author Name Unknown Organization [facility] Address [address] [place] [address]- Care Team Providers Care Sdet Name Role Phone Candis CARDENAS, Kaiden Villalta Primary Care Physician [phone] [place] [facility] Date(s): 06/07/22 - 07/07/22 [facility] [address] [place], [place] [address] Attending Physician: Rachel Simpson MD Allergies, Adverse [...] 8.5 Gm,0 Refills, Maintenance, 12/22/21 10:40:00 EDT, [facility] #[id number], 2 puffs Inhalation Every 4 hours,PRN: NEEDED FOR WHEEZING/cough/shortness... Start Date: 12/22/21 Status: Ordered albuterol 0.083% inhalation solution 3 mL = 2.5 mg, Inhalation, Every 4 hours, PRN for wheezing/cough/shortness of breath, # 25 each, 0 Refills, Maintenance, 06/29/22 13:08:00 EDT, Solution, [facility] #[id number], Partial fill upon patient request if the prescription is for a sched... Start Date: 06/29/22 Status: Ordered [place] Saline Mist 0.65% nasal spray 2 sprays, Nares, Both, 4 times a day, # 1 each, 0 Refills, Maintenance, 02/04/22 13:32:00 EDT, [facility] #[id number], Partial fill upon patient request if the [...] tablet, 0 Refills, Maintenance, 12/27/21 13:43:00 EDT, [facility] #[id number], 153, cm, 10/08/21 13:23:00 EDT, Height, 113.9, kg, 10/08/21 13:23:00EDT, Dry Weight Start Date: 12/27/21 Status: Ordered chlorhexidine 2% topical liquid See Instructions, 1 application to bilateral forearms twice weekly, # 120 mL, 3 Refills, Soft Stop,06/17/22 11:06:00 EST, Liquid, [facility] #[id number], Partial fill upon patient request if the prescription is for a schedule II opioid drug., 1... Start Date: 06/17/22 Status: Ordered chlorhexidine 4% topical soap See Instructions, apply topically twice weekly to skin on forearms, # 120 mL, 2 Refills, Soft Stop,06/17/22 16:03:00 EST, [facility] #[id number], Partial fill upon patient request if the [...] FOR PAIN., # 100 Gm, 1 Refills, [facility], 30, APPLY 1 GM TOPICALLY 4 TIMES A DAY FOR PAIN, 153, cm, 06/07/21 11:07:00 EST, Height, 105, kg, 05/31/21 15:15:00 EST, Dry Weight Start Date: 08/05/21 Status: Ordered Dilaudid 2 mg oral tablet 1 tablet = 2 mg, By Mouth, 2 times a day, PRN Pain , Severe, checked masspat, # 56 tablet, 0 Refills, Maintenance, 06/27/22 21:04:00 EDT, Tablet, [facility] #[id number], Partial fill upon patient request if the prescription is for a schedule II o... Start Date: 06/27/22 Status: Ordered Estrace Vaginal Cream 0.1 mg/g = 2 Gm, Vaginally, Daily at bedtime, 2g PV daily at bedtime x 2 weeks, then 1g PV 1-3x per week, # 42.5 Gm, 5 Refills, Maintenance, 11/09/21 11:17:00 EDT, [facility] #[id number], Partial fill upon patient request if the prescription is for a sche... Start Date: 11/09/21 Status: Ordered Estradiol Patch 0.0375 mg/24 hours twice weekly transdermal film, extended release See Instructions, APPLY 1 PATCH TOPICALLY TWICE WEEKLY DIRECTED, # 8 patch, 6 Refills, Maintenance, 03/23/22 16:10:00 EST, [facility] #[id number], 28, APPLY 1 PATCH TOPICALLY TWICE WEEKLY DIRECTED, 153, cm, 01/04/22 13:15:00 EDT, Height, 11... Start Date: 03/23/22 Status: Ordered fluconazole 150 mg oral tablet 1 tablet = 150 mg, By Mouth, Once, PRN vaginal yeast infection, # 1 tablet, 0 Refills, Soft Stop, 03/15/22 10:42:00 EST, Tablet, [facility] #[id number], Partial fill upon patient request if the prescription is for a schedule II opioid drug., 153,... Start Date: 03/15/22 Status: Ordered fluticasone 50 mcg/inh nasal spray See Instructions, SHAKE LIQUID AND USE 1 SPRAY IN EACH NOSTRIL TWICE DAILY, # 16 Gm, 1 Refills, Maintenance, 05/18/22 13:57:00 EST, [facility] #[id number], 30, SHAKE LIQUID AND USE 1 SPRAY IN EACH NOSTRIL TWICE DAILY, 153, cm, 04/25/22 16:23:00 E... Start Date: 05/18/22 Status: Ordered gabapentin 800 mg oral tablet 1 tablet, By Mouth, 4 times a day, # 360 tablet, 1 Refills, Maintenance, 04/19/22 12:59:00 EST, [facility] #[id number], 153, cm, 01/04/22 13:15:00 EDT, Height, 113.9, [...] capsule, 1 Refills, Maintenance, 05/20/22 12:57:00 EST, [facility] #[id number], 153, cm, 04/25/22 16:23:00 EST, Height, 109, [...] 1 Refills, Maintenance, 04/28/22 13:51:00 EST, Tablet, [facility] #[id number], Partial fill upon patient request if the prescription is for a schedule II opioid drug., 153, cm... Start Date: 04/28/22 Status: Ordered lidocaine 4% topical cream 1 application, Topically, 3 times a day, PRN Pain , Mild, # 30 Gm, 1 Refills, Maintenance, 06/24/2315:24:00 EST, Cream, [facility] #[id number], Partial fill upon patient request if the prescription is for a schedule II opioid drug., 1 applicatio... Start Date: 06/23/22 Status: Ordered meloxicam 15 mg oral tablet 1/2 TO 1 TABLET, By Mouth, Daily, PRN NEEDED FOR MODERATE PAIN, # 30 tablet, 5 Refills, Maintenance, 01/10/22 20:40:00 EDT, [facility] #[id number], 153, cm, 01/04/22 13:15:00 EDT, Height, 113.9, [...] capsule, 1 Refills, Maintenance, 04/19/22 12:41:00 EST, [facility] #[id number], 153, cm, 01/04/22 13:15:00 EDT, Height, 113.9, kg, 10/08/21 13:23:00 EDT, Dry Weight Start Date: 04/19/22 Status: Ordered ondansetron 4 mg oral tablet 1 tablet, By Mouth, Every 8 hours, PRN NEEDED FOR NAUSEA OR VOMITING, # 30 tablet, 1 Refills, Maintenance, 06/14/22 10:29:00 EST, [facility] #[id number], 153, cm, 06/08/22 9:37:00 EST, Height, 109, kg, 04/25/22 15:54:00 EST, Dry Weight Start Date: 06/14/22 Status: Ordered oxybutynin 5 mg oral tablet 1 tablet, By Mouth, 3 times a day, # 270 tablet, 0 Refills, Maintenance, 07/05/22 8:13:00 EDT, [facility] #[id number], 153, cm, 06/17/22 10:53:00 EST, Height, 109, [...] 07/01/22 14:21:00 EDT, Route to Pharmacy Electronically, [facility] #[id number], Partial fill upon patient request if the... Start Date: 07/01/22 Status: Ordered triamcinolone 0.1% topical cream 1 application, Topically, 3 times a day, PRN arm rash, # 30 Gm, 1 Refills, Acute 06/08/23 9:53:00 EST, 06/08/22 9:53:00 EST, Cream, [facility] #[id number], Partial fill upon patient request if the [...] Physician Member Role: PCP Address: Address: [address] [place] [address] Adult [facility] [place] [address]- Care Team Related Persons Name: AGUILAR RODOLFO Address: home [address] [facility] [address] [place] [address] Name: CHIARA TEE Address: home [address] [place] [address] [address] [place] [address]
--- OUTSIDE RECORDS SUMMARY | 2022-12-30 08:21 | XMS_ITS | Continuity of Care Document ---
Author Name Unknown Organization [facility] Address [address] [place] [address]- Care Team Providers Care Respite Worker Name Role Phone Candis CARDENAS, Kaiden Villalta Primary Care Physician [phone] [place] [facility] [place](s): 01/25/21 - 02/24/21 [facility] [address] [place], [place] [address] Allergies, Adverse Reactions, [...] 12/24/20 16:08:00 EDT, Route to Pharmacy Electronically, [facility]/pharmacy #[id number], Partial fill upon patient request if the prescription is for a schedule II... Start Date: 12/24/20 Status: Ordered baclofen 10 mg oral tablet 10 mg, 1, tablet, By Mouth, 3 times a day, PRN, # 30 tablet, Refills 0, Tot. Refills 0, Maintenance, Spasm, 01/31/19 21:47:23 EDT, Route to Pharmacy Electronically, [id number], [facility]/pharmacy #[id number] Start Date: 01/31/19 Stop Date: 02/14/19 Status: Ordered benzonatate 100 mg oral capsule 2 capsule, By Mouth, 3 times a day, PRN NEEDED FOR COUGH, # 30 capsule, 1 Refills, Physician Stop 02/19/22 16:55:00 EDT, 02/19/21 16:54:00 EDT, [facility]/pharmacy #[id number], 160, cm, 12/04/20 10:52:00 EDT, Height, 104.6, kg, 12/04/20 10:52:00 EDT, Dry Weight Start Date: 02/19/21 Stop Date: 02/19/22 Status: Ordered clonazePAM 0.5 mg oral tablet 1 tablet = 0.5 mg, By Mouth, 4 times a day, PRN Anxiety, Patient on controlled substance contract. Please do NOT fill until 09/23/2020, # 112 tablet, 0 Refills, Maintenance, 11/18/20 21:02:00 EDT, Tablet, [facility]/pharmacy #[id number], Partial fill upon patient... Start Date: 11/18/20 Status: Ordered Famotidine 0 Refills, Maintenance, 04/07/19 16:11:00 EST Start Date: 04/07/19 Status: Ordered gabapentin 800 mg oral tablet 1 tablet = 800 mg, By Mouth, 4 times a day, # 360 tablet, 1 Refills, Maintenance, 11/09/20 23:47:00EDT, Tablet, [facility]/pharmacy #[id number], Partial fill upon patient request if [...] 1 Refills, Maintenance, 11/05/20 11:43:00 EDT, Tablet, [facility]/pharmacy #0969, Partial fill upon patient request if the prescription is for a schedule II opioid drug., 160, cm, 10/30/20 8:2... Start Date: 11/05/20 Status: Ordered meloxicam 15 mg oral tablet 1/2 TO 1 TABLET, By Mouth, Daily, PRN NEEDED FOR MODERATE PAIN, # 30 tablet, 1 Refills, [facility] [id number], 160, cm, 12/04/20 10:52:00 EDT, Height, 104.6, kg, 12/04/20 10:52:00 EDT, Dry Weight Start Date: 01/22/21 Status: Ordered omeprazole 20 mg oral enteric coated capsule 1 capsule, By Mouth, Daily, # 90 capsule, 0 Refills, Maintenance, 01/14/21 13:42:00 EDT, [facility]/pharmacy #0969, 160, cm, 12/04/20 10:52:00 EDT, Height, 104.6, kg, 12/04/20 10:52:00 EDT, Dry Weight Start Date: 01/14/21 Status: Ordered ondansetron 4 mg oral tablet See Instructions, TAKE 1 TABLET BY MOUTH EVERY 8 HOURS NEEDED FOR NAUSEA AND VOMITING, # 15 tablet, 0 Refills, [facility] [id number], 160, cm, 12/04/20 10:52:00 EDT, Height, 104.6, [...]
--- OUTSIDE RECORDS SUMMARY | 2022-12-30 08:21 | XMS_ITS | Continuity of Care Document ---
Author Name Unknown Organization [facility] Address [address] [place] [address]- Care Team Providers Care Wig Comber Name Role Phone Kaiden Chirinos MD Primary Care Physician Encounter [facility] Date(s): 11/10/21 - 12/10/21 [facility] [address] [place] [address]- Allergies, Adverse Reactions, Alerts Substance Reaction Severity [...] 8.5 Gm,0 Refills, Maintenance, 12/08/21 20:52:00 EDT, [facility] #[id number], 2 puffs Inhalation Every 4 hours,PRN: NEEDED FOR WHEEZING/cough/shortness... Start Date: 12/08/21 Status: Ordered albuterol 0.083% inhalation solution 3 mL = 2.5 mg, Inhalation, Every 4 hours, PRN for wheezing/cough/shortness of breath, # 25 each, 0 Refills, Maintenance, 10/14/21 22:10:00 EDT, Solution, [facility] #[id number], Partial fill upon patient request if the prescription is for a sched... Start Date: 10/14/21 Status: Ordered benzonatate 100 mg oral capsule 2 capsule, By Mouth, 3 times a day, PRN NEEDED FOR COUGH, # 30 capsule, 1 Refills, Physician Stop 11/10/22 14:46:00 EDT, 03/19/22 17:38:00 EST, [facility] #[id number], 153, cm, 10/08/21 13:23:00 EDT, Height, 113.9, kg, 10/08/21 13:23:00 EDT, D... Start Date: 03/19/22 Stop Date: 11/10/22 Status: Ordered benzonatate 100 mg oral capsule 2 capsule, By Mouth, 3 times a day, PRN NEEDED FOR COUGH, # 30 capsule, 1 Refills, Physician Stop 12/10/22 15:43:00 EDT, 11/10/22 14:46:00 EDT, [facility] #[id number], 153, cm, 10/08/21 13:23:00 EDT, Height, 113.9, [...] [facility] #0989, Partial fill upon patient... Start Date: 11/18/20 Status: Ordered diclofenac 1% topical gel = 1 Gm, Topically, 4 times a day, FOR PAIN., # 100 Gm, 1 Refills, [facility], 30, APPLY 1 GM TOPICALLY 4 TIMES A DAY FOR PAIN, 153, cm, 06/07/21 11:07:00 EST, Height, 105, kg, 05/31/21 15:15:00 EST, Dry Weight Start Date: 08/05/21 Status: Ordered Dilaudid 2 mg oral tablet 1 tablet = 2 mg, By Mouth, 2 times a day, PRN Pain , Severe, checked masspat, # 28 tablet, 0 Refills, Maintenance, 12/07/21 13:30:00 EDT, Tablet, [facility] #[id number], Partial fill upon patient request if the prescription is for a schedule II o... Start Date: 12/07/21 Status: Ordered Estrace Vaginal Cream 0.1 mg/g = 2 Gm, Vaginally, Daily at bedtime, 2g PV daily at bedtime x 2 weeks, then 1g PV 1-3x per week, # 42.5 Gm, 5 Refills, Maintenance, 11/09/21 11:17:00 EDT, [facility] #[id number], Partial fill upon patient request if the prescription is for a sche... Start Date: 11/09/21 Status: Ordered estradiol 0.0375 mg/24 hours twice weekly transdermal film, extended release See Instructions, 1 patch Topically, change patch twice a week, # 1 pack/packet, 1 Refills, Maintenance, 12/07/21 10:42:00 EDT, [facility] #[id number], Partial fill upon patient request if the prescription is for a schedule II opioid drug., 153,... Start Date: 12/07/21 Status: Ordered gabapentin 800 mg oral tablet See Instructions, TAKE 1 TABLET BY MOUTH FOUR TIMES DAILY, # 360 tablet, 0 Refills, [facility] #[id number], 153, cm, 10/08/21 13:23:00 EDT, Height, 113.9, [...] capsule, 1 Refills, Maintenance, 12/08/21 10:10:00 EDT, [facility] #54461, 153, cm, 10/08/21 13:23:00 EDT, Height, 113.9,kg, [...] 1 Refills, Maintenance, 07/30/21 12:25:00 EDT, Tablet, [facility] #[id number], Partial fill upon patient request if the prescription is for a schedule II opioid drug... Start Date: 07/30/21 Status: Ordered levothyroxine 0.1 mg oral tablet 1 tablet = 100 mcg, By Mouth, Daily, dose increase, # 90 tablet, 0 Refills, Maintenance, 11/01/21 16:08:00 EDT, [facility] #[id number], Please discontinue 88ug, 153, cm, 10/08/21 13:23:00 [...] 1 Refills, Maintenance, 11/30/21 15:44:00 EDT, Tablet, [facility] #11774, [place]... Start Date: 11/30/21 Status: Ordered lidocaine 2% topical gel with applicator 5 mL = 0.1 Gm, Topically, 2 times a day, PRN Pain , Moderate, # 60 mL, 2 Refills, Soft Stop, 09/24/21 16:43:00 EDT, Gel, [facility] #[id number], Partial fill upon patient request if the prescription is for a schedule II opioid drug., 153, cm, ... Start Date: 09/24/21 Status: Ordered meloxicam 15 mg oral tablet 1/2 TO 1 TABLET, By Mouth, Daily, PRN NEEDED FOR MODERATE PAIN, # 30 tablet, 1 Refills, :04:00 EDT, [facility] #[id number], 153, cm, 10/08/21 13:23:00 EDT, Height, 113.9, [...] 90 capsule, 0 Refills, 09/27/21 14:31:00 EDT, [facility] #[id number], 153, cm, 08/10/21 11:19:00 EDT, Height, 105, kg, 05/31/21 15:15:00 EST, Dry Weight Start Date: 09/27/21 Status: Ordered ondansetron 4 mg oral tablet 1 tablet = 4 mg, By Mouth, Every 8 hours, PRN Nausea & Vomiting, # 30 tablet, 1 Refills, Maintenance, 11/10/21 14:47:00 EDT, [facility] #[id number], 153, cm, 10/08/21 13:23:00 EDT, Height, 113.9, kg, 10/08/21 13:23:00 EDT, Dry Weight Start Date: 11/10/21 Status: Ordered oxybutynin 5 mg oral tablet 1 tablet, By Mouth, 3 times a day, # 270 tablet, 1 Refills, [facility] 03595, 153, cm, 08/10/21 11:19:00 EDT, Height, 105, kg, 05/31/21 15:15:00 EST, Dry Weight Start Date: 09/09/21 Status: Ordered Paxlovid 150 mg-100 mg (150 mg-100 mg Dose) oral tablet See Instructions, 2 tabs nirmatrelvir PO and 1 tab ritonavir PO twice daily for 5 days, # 30 tablet, 0 Refills, Acute 12/15/21 15:37:00 EDT, 12/10/21 15:36:00 EDT, [facility] #[id number], Partial fill upon patient request if the [...] Personnel Name: Candis CARDENAS, Kaiden Villalta Address: [address] [place] [address] Adult & Pediatric [place], [place] [address]
--- OUTSIDE RECORDS SUMMARY | 2022-12-30 08:21 | XMS_ITS | Continuity of Care Document ---
Author Name Unknown Organization [facility] Address [address] [place] [address]- Care Team Providers Care Case Reviewer Name Role Phone Candis CARDENAS, Kaiden Villalta Primary Care Physician Encounter [facility] Date(s): 03/09/22 - 04/08/22 [facility] [address] [place], [place] [address] Allergies, Adverse Reactions, Alerts Substance Reaction [...] 8.5 Gm,0 Refills, Maintenance, 12/22/21 10:40:00 EDT, [facility] #[id number], 2 puffs Inhalation Every 4 hours,PRN: NEEDED FOR WHEEZING/cough/shortness... Start Date: 12/22/21 Status: Ordered albuterol 0.083% inhalation solution 3 mL = 2.5 mg, Inhalation, Every 4 hours, PRN for wheezing/cough/shortness of breath, # 25 each, 0 Refills, Maintenance, 10/14/21 22:10:00 EDT, Solution, [facility] #[id number], Partial fill upon patient request if the prescription is for a sched... Start Date: 10/14/21 Status: Ordered [place] Saline Mist 0.65% nasal spray 2 sprays, Nares, Both, 4 times a day, # 1 each, 0 Refills, Maintenance, 02/04/22 13:32:00 EDT, [facility] #[id number], Partial fill upon patient request if the [...] tablet, 0 Refills, Maintenance, 12/27/21 13:43:00 EDT, [facility] #[id number], 153, cm, 10/08/21 13:23:00 EDT, Height, 113.9, kg, 10/08/21 13:23:00EDT, Dry Weight Start Date: 12/27/21 Status: Ordered clonazePAM 0.5 mg oral tablet 1 tablet = 0.5 mg, By Mouth, 4 times a day, PRN Anxiety, Patient on controlled substance contract. Please do NOT fill until 09/23/2020, # 112 tablet, 0 Refills, Maintenance, 11/18/20 21:02:00 EDT, Tablet, [facility]/pharmacy #[id number], Partial fill upon patient... Start Date: 11/18/20 Status: Ordered diclofenac 1% topical gel = 1 Gm, Topically, 4 times a day, FOR PAIN., # 100 Gm, 1 Refills, [id number], 30, APPLY 1 GM TOPICALLY 4 TIMES A DAY FOR PAIN, 153, cm, 06/07/21 11:07:00 EST, Height, 105, kg, 05/31/21 15:15:00 EST, Dry Weight Start Date: 08/05/21 Status: Ordered Dilaudid 2 mg oral tablet 1 tablet = 2 mg, By Mouth, 2 times a day, PRN Pain , Severe, checked masspat, # 56 tablet, 0 Refills, Maintenance, 04/07/22 21:32:00 EST, Tablet, [facility] #[id number], Partial fill upon patient request if the prescription is for a schedule II o... Start Date: 04/07/22 Status: Ordered Estrace Vaginal Cream 0.1 mg/g = 2 Gm, Vaginally, Daily at bedtime, 2g PV daily at bedtime x 2 weeks, then 1g PV 1-3x per week, # 42.5 Gm, 5 Refills, Maintenance, 11/09/21 11:17:00 EDT, [facility] #[id number], Partial fill upon patient request if the prescription is for a sche... Start Date: 11/09/21 Status: Ordered Estradiol Patch 0.0375 mg/24 hours twice weekly transdermal film, extended release See Instructions, APPLY 1 PATCH TOPICALLY TWICE WEEKLY DIRECTED, # 8 patch, 6 Refills, Maintenance, 03/23/22 16:10:00 EST, [facility] #[id number], 28, APPLY 1 PATCH TOPICALLY TWICE WEEKLY DIRECTED, 153, cm, 01/04/22 13:15:00 EDT, Height, 11... Start Date: 03/23/22 Status: Ordered fluconazole 150 mg oral tablet 1 tablet = 150 mg, By Mouth, Once, PRN vaginal yeast infection, # 1 tablet, 0 Refills, Soft Stop, 03/15/22 10:42:00 EST, Tablet, [facility] #[id number], Partial fill upon patient request if the prescription is for a schedule II opioid drug., 153,... Start Date: 03/15/22 Status: Ordered gabapentin 800 mg oral tablet See Instructions, TAKE 1 TABLET BY MOUTH FOUR TIMES DAILY, # 360 tablet, 0 Refills, [facility] #[id number], 153, cm, 10/08/21 13:23:00 EDT, Height, 113.9, [...] capsule, 1 Refills, Maintenance, 12/08/21 10:10:00 EDT, [facility] #[id number], 153, cm, 10/08/21 13:23:00 EDT, Height, 113.9,kg, [...] 1 Refills, Maintenance, 03/14/22 15:04:00 EST, Tablet, [facility] #[id number], Partial fill upon patient request if the prescription is for a schedule II opioid drug., 153, cm... Start Date: 03/14/22 Status: Ordered meloxicam 15 mg oral tablet 1/2 TO 1 TABLET, By Mouth, Daily, PRN NEEDED FOR MODERATE PAIN, # 30 tablet, 5 Refills, Maintenance, 01/10/22 20:40:00 EDT, [facility] #[id number], 153, cm, 01/04/22 13:15:00 EDT, Height, 113.9, [...] capsule, 0 Refills, Maintenance, 01/16/22 8:28:00 EDT, [facility] #[id number], 153, cm, 01/04/22 13:15:00 EDT, Height, 113.9, kg, 10/08/21 13:23:00 EDT, Dry Weight Start Date: 01/16/22 Status: Ordered ondansetron 4 mg oral tablet 1 tablet, By Mouth, Every 8 hours, PRN NEEDED FOR NAUSEA OR VOMITING, # 30 tablet, 0 Refills, Maintenance, 03/01/22 11:29:00 EST, [facility] #[id number], 153, cm, 01/04/22 13:15:00 EDT, Height, 113.9, kg, 10/08/21 13:23:00 EDT, Dry Weight Start Date: 03/01/22 Status: Ordered oxybutynin 5 mg oral tablet 1 tablet, By Mouth, 3 times a day, # 270 tablet, 1 Refills, 01/10/22 10:29:00 EDT, [facility] #[id number], 153, cm, 01/04/22 13:15:00 EDT, Height, 113.9, [...] 03/14/22 15:10:00 EST, Route to Pharmacy Electronically, [facility] #[id number], Partial fill upon patient request if the... [...] Physician Member Role: PCP Address: Address: [address] [place] [address] Adult [facility] [place] [address]- Care Team Related Persons Name: RODOLFO SHEIKH Address: home [address] [place] [address] Name: CHIARA TEE Address: home [address] [place] [address] [address] [place] [id number]
--- OUTSIDE RECORDS SUMMARY | 2022-12-30 08:21 | XMS_ITS | Continuity of Care Document ---
Author Name Unknown Organization [facility] Address [address] [place] [address]- Care Team Providers Care Head Of Integrated Media Name Role Phone Kaiden Chirinos MD Primary Care Physician [place] [facility] Date(s): 12/21/21 - 01/20/22 [facility] [address] [place], [place] [address] Allergies, Adverse Reactions, Alerts [...] 8.5 Gm,0 Refills, Maintenance, 12/22/21 10:40:00 EDT, [email or web address] #[id number], 2 puffs Inhalation Every 4 hours,PRN: NEEDED FOR WHEEZING/cough/shortness... Start Date: 12/22/21 Status: Ordered albuterol 0.083% inhalation solution 3 mL = 2.5 mg, Inhalation, Every 4 hours, PRN for wheezing/cough/shortness of breath, # 25 each, 0 Refills, Maintenance, 10/14/21 22:10:00 EDT, Solution, [facility] #[id number], Partial fill upon patient request if the [...] tablet, 0 Refills, Maintenance, 12/27/21 13:43:00 EDT, [facility] #[id number], 153, cm, 10/08/21 13:23:00 EDT, Height, 113.9, [...] FOR PAIN., # 100 Gm, 1 Refills, [facility] [id number], 30, APPLY 1 GM TOPICALLY 4 TIMES A DAY FOR PAIN, 153, cm, 06/07/21 11:07:00 EST, Height, 105, kg, 05/31/21 15:15:00 EST, Dry Weight Start Date: 08/05/21 Status: Ordered Dilaudid 2 mg oral tablet 1 tablet = 2 mg, By Mouth, 2 times a day, PRN Pain , Severe, checked masspat, # 28 tablet, 0 Refills, Maintenance, 01/18/22 17:28:00 EDT, Tablet, [facility] #[id number], Partial fill upon patient request if the prescription is for a schedule II o... Start Date: 01/18/22 Status: Ordered Estrace Vaginal Cream 0.1 mg/g = 2 Gm, Vaginally, Daily at bedtime, 2g PV daily at bedtime x 2 weeks, then 1g PV 1-3x per week, # 42.5 Gm, 5 Refills, Maintenance, 11/09/21 11:17:00 EDT, [facility] #[id number], Partial fill upon patient request if the prescription is for a sche... Start Date: 11/09/21 Status: Ordered estradiol 0.0375 mg/24 hours twice weekly transdermal film, extended release See Instructions, 1 patch Topically, change patch twice a week, # 1 pack/packet, 1 Refills, Maintenance, 12/07/21 10:42:00 EDT, [facility] #[id number], Partial fill upon patient request if the prescription is for a schedule II opioid drug., 153,... Start Date: 12/07/21 Status: Ordered gabapentin 800 mg oral tablet See Instructions, TAKE 1 TABLET BY MOUTH FOUR TIMES DAILY, # 360 tablet, 0 Refills, [facility] #[id number], 153, cm, 10/08/21 13:23:00 EDT, Height, 113.9, [...] capsule, 1 Refills, Maintenance, 12/08/21 10:10:00 EDT, [facility] #[id number], 153, cm, 10/08/21 13:23:00 EDT, Height, 113.9,kg, [...] 1 Refills, Maintenance, 11/30/21 15:44:00 EDT, Tablet, [facility] #[id number], [place]... Start Date: 11/30/21 Status: Ordered levothyroxine 0.112 mg oral tablet 1 tablet, By Mouth, Daily, AVOID ANTACIDS, CALCIUM, OR IRON FOR AT LEAST 4 HOURS BEFORE OR 4 HOURS AFTER; ON AN ON AN EMPTY STOMACH, # 90 tablet, 0 Refills, Maintenance, 01/20/22 17:46:00 EDT, [facility] #[id number], 153, cm, 01/04/22 13:15:00 ED... Start Date: 01/20/22 Status: Ordered lidocaine 3% topical gel 1 application, Topically, 2 times a day, PRN as needed for pain, to replace 2% topical, # 28.5 Gm, 2 Refills, Acute 03/29/22 14:17:00 EST, 12/28/21 14:17:00 EDT, Gel, [facility] #[id number], Partial fill upon patient request if the prescription i... Start Date: 12/28/21 Stop Date: 03/29/22 Status: Ordered lidocaine 4% topical cream 1 application, Topically, 2 times a day, PRN Pain , Mild, # 30 Gm, 1 Refills, Acute 01/27/22 17:31:00 EDT, 12/28/21 17:31:00 EDT, Cream, [facility] #[id number], Partial fill upon patient requestif the prescription is for a schedule II opioid cedrick... Start Date: 12/28/21 Stop Date: 01/27/22 Status: Ordered meloxicam 15 mg oral tablet 1/2 TO 1 TABLET, By Mouth, Daily, PRN NEEDED FOR MODERATE PAIN, # 30 tablet, 5 Refills, Maintenance, 01/10/22 20:40:00 EDT, [facility] #[id number], 153, cm, 01/04/22 13:15:00 EDT, Height, 113.9, [...] capsule, 0 Refills, Maintenance, 01/16/22 8:28:00 EDT, [facility] #[id number], 153, cm, 01/04/22 13:15:00 EDT, Height, 113.9, kg, 10/08/21 13:23:00 EDT, Dry Weight Start Date: 01/16/22 Status: Ordered ondansetron 4 mg oral tablet 1 tablet = 4 mg, By Mouth, Every 8 hours, PRN Nausea & Vomiting, # 30 tablet, 1 Refills, Maintenance, 11/10/21 14:47:00 EDT, [facility] #[id number], 153, cm, 10/08/21 13:23:00 EDT, Height, 113.9, kg, 10/08/21 13:23:00 EDT, Dry Weight Start Date: 11/10/21 Status: Ordered oxybutynin 5 mg oral tablet 1 tablet, By Mouth, 3 times a day, # 270 tablet, 1 Refills, 01/10/22 10:29:00 EDT, [facility] #[id number], 153, cm, 01/04/22 13:15:00 EDT, Height, 113.9, [...] Name: Candis CARDENAS, Kaiden Villalta Address: Address: [address] [place] [address] [facility] [address]
--- OUTSIDE RECORDS SUMMARY | 2022-12-30 08:21 | XMS_ITS | Continuity of Care Document ---
Author Name Unknown Organization [facility] Address [address] [place] [address]- Care Team Providers Care Flow Specialist Name Role Phone Candis CARDENAS, Kaiden Villalta Primary Care Physician [phone] Encounter [facility] Date(s): 01/04/22 - 02/03/22 [facility] [address] [place], [place] [address] Allergies, Adverse Reactions, Alerts Substance [...] 8.5 Gm,0 Refills, Maintenance, 12/22/21 10:40:00 EDT, [facility] #[id number], 2 puffs Inhalation Every 4 hours,PRN: NEEDED FOR WHEEZING/cough/shortness... Start Date: 12/22/21 Status: Ordered albuterol 0.083% inhalation solution 3 mL = 2.5 mg, Inhalation, Every 4 hours, PRN for wheezing/cough/shortness of breath, # 25 each, 0 Refills, Maintenance, 10/14/21 22:10:00 EDT, Solution, [facility] #[id number], Partial fill upon patient request if the [...] tablet, 0 Refills, Maintenance, 12/27/21 13:43:00 EDT, [facility] #[id number], 153, cm, 10/08/21 13:23:00 EDT, Height, 113.9, kg, 10/08/21 13:23:00EDT, Dry Weight Start Date: 12/27/21 Status: Ordered clonazePAM 0.5 mg oral tablet 1 tablet = 0.5 mg, By Mouth, 4 times a day, PRN Anxiety, Patient on controlled substance contract. Please do NOT fill until 09/23/2020, # 112 tablet, 0 Refills, Maintenance, 11/18/20 21:02:00 EDT, Tablet, [facility]/pharmacy #[id number], Partial fill upon patient... Start Date: 11/18/20 Status: Ordered diclofenac 1% topical gel = 1 Gm, Topically, 4 times a day, FOR PAIN., # 100 Gm, 1 Refills, [facility] [id number], 30, APPLY 1 GM TOPICALLY 4 TIMES A DAY FOR PAIN, 153, cm, 06/07/21 11:07:00 EST, Height, 105, kg, 05/31/21 15:15:00 EST, Dry Weight Start Date: 08/05/21 Status: Ordered Dilaudid 2 mg oral tablet 1 tablet = 2 mg, By Mouth, 2 times a day, PRN Pain , Severe, checked masspat, # 28 tablet, 0 Refills, Maintenance, 01/18/22 17:28:00 EDT, Tablet, [facility] #[id number], Partial fill upon patient request if the prescription is for a schedule II o... Start Date: 01/18/22 Status: Ordered Estrace Vaginal Cream 0.1 mg/g = 2 Gm, Vaginally, Daily at bedtime, 2g PV daily at bedtime x 2 weeks, then 1g PV 1-3x per week, # 42.5 Gm, 5 Refills, Maintenance, 11/09/21 11:17:00 EDT, [facility] #[id number], Partial fill upon patient request if the prescription is for a sche... Start Date: 11/09/21 Status: Ordered Estradiol Patch 0.0375 mg/24 hours twice weekly transdermal film, extended release See Instructions, APPLY 1 PATCH TOPICALLY TWICE WEEKLY DIRECTED, # 8 patch, 0 Refills, Maintenance, 02/01/22 11:03:00 EDT, [facility] #[id number], 28, APPLY 1 PATCH TOPICALLY TWICE WEEKLY DIRECTED, 153, cm, 01/04/22 13:15:00 EDT, Height, 11... Start Date: 02/01/22 Status: Ordered gabapentin 800 mg oral tablet See Instructions, TAKE 1 TABLET BY MOUTH FOUR TIMES DAILY, # 360 tablet, 0 Refills, [facility] #[id number], 153, cm, 10/08/21 13:23:00 EDT, Height, 113.9, [...] capsule, 1 Refills, Maintenance, 12/08/21 10:10:00 EDT, [facility] #[id number], 153, cm, 10/08/21 13:23:00 EDT, Height, 113.9,kg, [...] 1 Refills, Maintenance, 11/30/21 15:44:00 EDT, Tablet, [facility] #[id number], [place]... Start Date: 11/30/21 Status: Ordered levothyroxine 0.112 mg oral tablet 1 tablet, By Mouth, Daily, AVOID ANTACIDS, CALCIUM, OR IRON FOR AT LEAST 4 HOURS BEFORE OR 4 HOURS AFTER; ON AN ON AN EMPTY STOMACH, # 90 tablet, 0 Refills, Maintenance, 01/20/22 17:46:00 EDT, [facility] #[id number], 153, cm, 01/04/22 13:15:00 ED... Start Date: 01/20/22 Status: Ordered lidocaine 3% topical gel 1 application, Topically, 2 times a day, PRN as needed for pain, to replace 2% topical, # 28.5 Gm, 2 Refills, Acute 03/29/22 14:17:00 EST, 12/28/21 14:17:00 EDT, Gel, [facility] #[id number], Partial fill upon patient request if the prescription i... Start Date: 12/28/21 Stop Date: 03/29/22 Status: Ordered meloxicam 15 mg oral tablet 1/2 TO 1 TABLET, By Mouth, Daily, PRN NEEDED FOR MODERATE PAIN, # 30 tablet, 5 Refills, Maintenance, 01/10/22 20:40:00 EDT, [facility] #[id number], 153, cm, 01/04/22 13:15:00 EDT, Height, 113.9, [...] capsule, 0 Refills, Maintenance, 01/16/22 8:28:00 EDT, [facility] #[id number], 153, cm, 01/04/22 13:15:00 EDT, Height, 113.9, kg, 10/08/21 13:23:00 EDT, Dry Weight Start Date: 01/16/22 Status: Ordered ondansetron 4 mg oral tablet 1 tablet = 4 mg, By Mouth, Every 8 hours, PRN Nausea & Vomiting, # 30 tablet, 1 Refills, Maintenance, 11/10/21 14:47:00 EDT, [facility] #[id number], 153, cm, 10/08/21 13:23:00 EDT, Height, 113.9, kg, 10/08/21 13:23:00 EDT, Dry Weight Start Date: 11/10/21 Status: Ordered oxybutynin 5 mg oral tablet 1 tablet, By Mouth, 3 times a day, # 270 tablet, 1 Refills, 01/10/22 10:29:00 EDT, [facility] #[id number], 153, cm, 01/04/22 13:15:00 EDT, Height, 113.9, [...] Name: Candis CARDENAS, Kaiden Villalta Address: Address: [address] [place] [address] Adult & Pediatric Medicine [place], [place] [address]
--- OUTSIDE RECORDS SUMMARY | 2022-12-30 08:21 | XMS_ITS | Continuity of Care Document ---
Author Name Unknown Organization [facility] Address [address] [place] [address]- Care Team Providers Care Computer Numerical Control Machinist Name Role Phone Candis CARDENAS, Kaiden Villalta Primary Care Physician Encounter [facility] [place] Date(s): 06/11/21 - 07/11/21 [facility] [address] [place], [place] [address] Allergies, Adverse Reactions, Alerts Substance [...] 8.5 each, 0 Refills, [facility] [id number], 20, INHALE 2 PUFFS BY MOUTH EVERY 4 HOURS NEEDED FOR WHEEZING, 160, cm, 03/30/21 10:47:00 EST, Height, 104.6, kg, 12/04/20 10:52:00 EDT, Dry Weight Start Date: 04/28/21 Status: Ordered amitriptyline 10 mg oral tablet 10 mg, 1, tablet, By Mouth, Daily at bedtime, # 90 tablet, Refills 1, Tot. Refills 1, Maintenance, 12/24/20 16:08:00 EDT, Route to Pharmacy Electronically, [facility]/pharmacy #[id number], Partial fill upon patient request if the prescription is for a schedule II... Start Date: 12/24/20 Status: Ordered baclofen 10 mg oral tablet 10 mg, 1, tablet, By Mouth, 3 times a day, PRN, # 30 tablet, Refills 0, Tot. Refills 0, Maintenance, Spasm, 01/31/19 21:47:23 EDT, Route to Pharmacy Electronically, [id number], [facility]/pharmacy #[id number] Start Date: 01/31/19 Stop [...] 06/30/22 10:07:00 EDT, 06/30/21 10:06:00 EDT, Tablet, [facility]/pharmacy #[id number], Partial fill upon patient request if the prescription is for a schedule II opioid drRobert.. Start Date: 06/30/21 Stop Date: 06/30/22 Status: Ordered Famotidine 0 Refills, Maintenance, 04/07/19 16:11:00 EST Start Date: 04/07/19 Status: Ordered gabapentin 800 mg oral tablet 1 tablet, By Mouth, 4 times a day, # 360 tablet, 1 Refills, [facility] [id number], 160, cm, 03/30/21 10:47:00 EST, Height, 104.6, [...] 1 Refills, Maintenance, 05/14/21 15:23:00 EST, Tablet, [facility]/pharmacy #[id number], Partial fill upon patient request if the prescription is for a schedule II opioid drug., 160, c... Start Date: 05/14/21 Status: Ordered omeprazole 20 mg oral enteric coated capsule 1 capsule, By Mouth, Daily, # 90 capsule, 1 Refills, [facility] [id number], 160, cm, 03/30/21 10:47:00 EST, Height, 104.6, kg, 12/04/20 10:52:00 EDT, Dry Weight Start Date: 03/31/21 Status: Ordered ondansetron 4 mg oral tablet See Instructions, TAKE 1 TABLET BY MOUTH EVERY 8 HOURS NEEDED FOR NAUSEA AND VOMITING, # 15 tablet, 1 Refills, Physician Stop 07/12/21 15:23:00 EDT, 05/14/21 15:22:00 EST, [facility]/pharmacy #[id number], 160,cm, 03/30/21 10:47:00 EST, Height, 104.6, kg, 12/04... Start Date: 05/14/21 Stop Date: 07/12/21 Status: Ordered oxybutynin 5 mg oral tablet 1 tablet, By Mouth, 3 times a day, dose increase, # 270 tablet, 1 Refills, Maintenance, 03/19/21 17:40:00 EST, [facility]/pharmacy #[id number], 160, cm, 12/04/20 10:52:00 [...]
--- OUTSIDE RECORDS SUMMARY | 2022-12-30 08:21 | XMS_ITS | Continuity of Care Document ---
Author Name Unknown Organization [facility] y Address [address] [place], [place] [address]sarah espana, [address] [place] [address]- Care Team Providers Care Incinerator Attendant Name Role Phone Candis CARDENAS, Kaiden Villalta Primary Care Physician Encounter [facility] [place] Date(s): 06/08/22 - 07/08/22 [facility] [address] [place] [address] Drive, [address] [place] [address]- Allergies, Adverse Reactions, Alerts Substance Reaction Severity [...] 8.5 Gm,0 Refills, Maintenance, 12/22/21 10:40:00 EDT, [facility] #[id number], 2 puffs Inhalation Every 4 hours,PRN: NEEDED FOR WHEEZING/cough/shortness... Start Date: 12/22/21 Status: Ordered albuterol 0.083% inhalation solution 3 mL = 2.5 mg, Inhalation, Every 4 hours, PRN for wheezing/cough/shortness of breath, # 25 each, 0 Refills, Maintenance, 06/29/22 13:08:00 EDT, Solution, [facility] #[id number], Partial fill upon patient request if the prescription is for a sched... Start Date: 06/29/22 Status: Ordered Eldon Saline Mist 0.65% nasal spray 2 sprays, Nares, Both, 4 times a day, # 1 each, 0 Refills, Maintenance, 02/04/22 13:32:00 EDT, [facility] #[id number], Partial fill upon patient request if the [...] tablet, 0 Refills, Maintenance, 12/27/21 13:43:00 EDT, [facility] #[id number], 153, cm, 10/08/21 13:23:00 EDT, Height, 113.9, kg, 10/08/21 13:23:00EDT, Dry Weight Start Date: 12/27/21 Status: Ordered chlorhexidine 2% topical liquid See Instructions, 1 application to bilateral forearms twice weekly, # 120 mL, 3 Refills, Soft Stop,06/17/22 11:06:00 EST, Liquid, [facility] #[id number], Partial fill upon patient request if the prescription is for a schedule II opioid drug., 1... Start Date: 06/17/22 Status: Ordered chlorhexidine 4% topical soap See Instructions, apply topically twice weekly to skin on forearms, # 120 mL, 2 Refills, Soft Stop,06/17/22 16:03:00 EST, [facility] #[id number], Partial fill upon patient request if the prescription is for a schedule II opioid drug., apply topi... Start Date: 06/17/22 Status: Ordered clonazePAM 0.5 mg oral tablet 1 tablet = 0.5 mg, By Mouth, 4 times a day, PRN Anxiety, Patient on controlled substance contract. Please do NOT fill until 09/23/2020, # 112 tablet, 0 Refills, Maintenance, 11/18/20 21:02:00 EDT, Tablet, [facility]/pharmacy #[id number], Partial fill upon patient... Start Date: 11/18/20 Status: Ordered diclofenac 1% topical gel = 1 Gm, Topically, 4 times a day, FOR PAIN., # 100 Gm, 1 Refills, [id number], 30, APPLY 1 GM TOPICALLY 4 TIMES A DAY FOR PAIN, 153, cm, 06/07/21 11:07:00 EST, Height, 105, kg, 05/31/21 15:15:00 EST, Dry Weight Start Date: 08/05/21 Status: Ordered Dilaudid 2 mg oral tablet 1 tablet = 2 mg, By Mouth, 2 times a day, PRN Pain , Severe, checked masspat, # 56 tablet, 0 Refills, Maintenance, 06/27/22 21:04:00 EDT, Tablet, [facility] #[id number], Partial fill upon patient request if the prescription is for a schedule II o... Start Date: 06/27/22 Status: Ordered Estrace Vaginal Cream 0.1 mg/g = 2 Gm, Vaginally, Daily at bedtime, 2g PV daily at bedtime x 2 weeks, then 1g PV 1-3x per week, # 42.5 Gm, 5 Refills, Maintenance, 11/09/21 11:17:00 EDT, [facility] #[id number], Partial fill upon patient request if the prescription is for a sche... Start Date: 11/09/21 Status: Ordered Estradiol Patch 0.0375 mg/24 hours twice weekly transdermal film, extended release See Instructions, APPLY 1 PATCH TOPICALLY TWICE WEEKLY DIRECTED, # 8 patch, 6 Refills, Maintenance, 03/23/22 16:10:00 EST, [facility] #[id number], 28, APPLY 1 PATCH TOPICALLY TWICE WEEKLY DIRECTED, 153, cm, 01/04/22 13:15:00 EDT, Height, 11... Start Date: 03/23/22 Status: Ordered fluconazole 150 mg oral tablet 1 tablet = 150 mg, By Mouth, Once, PRN vaginal yeast infection, # 1 tablet, 0 Refills, Soft Stop, 03/15/22 10:42:00 EST, Tablet, [facility] #[id number], Partial fill upon patient request if the prescription is for a schedule II opioid drug., 153,... Start Date: 03/15/22 Status: Ordered fluticasone 50 mcg/inh nasal spray See Instructions, SHAKE LIQUID AND USE 1 SPRAY IN EACH NOSTRIL TWICE DAILY, # 16 Gm, 1 Refills, Maintenance, 05/18/22 13:57:00 EST, [facility] #[id number], 30, SHAKE LIQUID AND USE 1 SPRAY IN EACH NOSTRIL TWICE DAILY, 153, cm, 04/25/22 16:23:00 E... Start Date: 05/18/22 Status: Ordered gabapentin 800 mg oral tablet 1 tablet, By Mouth, 4 times a day, # 360 tablet, 1 Refills, Maintenance, 04/19/22 12:59:00 EST, [facility] #[id number], 153, cm, 01/04/22 13:15:00 EDT, Height, 113.9, [...] capsule, 1 Refills, Maintenance, 05/20/22 12:57:00 EST, [facility] #[id number], 153, cm, 04/25/22 16:23:00 EST, Height, 109, [...] 1 Refills, Maintenance, 04/28/22 13:51:00 EST, Tablet, [facility] #[id number], Partial fill upon patient request if the prescription is for a schedule II opioid drug., 153, cm... Start Date: 04/28/22 Status: Ordered lidocaine 4% topical cream 1 application, Topically, 3 times a day, PRN Pain , Mild, # 30 Gm, 1 Refills, Maintenance, 06/24/2315:24:00 EST, Cream, [facility] #[id number], Partial fill upon patient request if the prescription is for a schedule II opioid drug., 1 applicatio... Start Date: 06/23/22 Status: Ordered meloxicam 15 mg oral tablet 1/2 TO 1 TABLET, By Mouth, Daily, PRN NEEDED FOR MODERATE PAIN, # 30 tablet, 5 Refills, Maintenance, 01/10/22 20:40:00 EDT, [facility] #[id number], 153, cm, 01/04/22 13:15:00 EDT, Height, 113.9, [...] capsule, 1 Refills, Maintenance, 04/19/22 12:41:00 EST, [facility] #[id number], 153, cm, 01/04/22 13:15:00 EDT, Height, 113.9, kg, 10/08/21 13:23:00 EDT, Dry Weight Start Date: 04/19/22 Status: Ordered ondansetron 4 mg oral tablet 1 tablet, By Mouth, Every 8 hours, PRN NEEDED FOR NAUSEA OR VOMITING, # 30 tablet, 1 Refills, Maintenance, 06/14/22 10:29:00 EST, [facility] #[id number], 153, cm, 06/08/22 9:37:00 EST, Height, 109, kg, 04/25/22 15:54:00 EST, Dry Weight Start Date: 06/14/22 Status: Ordered oxybutynin 5 mg oral tablet 1 tablet, By Mouth, 3 times a day, # 270 tablet, 0 Refills, Maintenance, 07/05/22 8:13:00 EDT, [facility] #[id number], 153, cm, 06/17/22 10:53:00 EST, Height, 109, [...] 07/01/22 14:21:00 EDT, Route to Pharmacy Electronically, [facility] #[id number], Partial fill upon patient request if the... Start Date: 07/01/22 Status: Ordered triamcinolone 0.1% topical cream 1 application, Topically, 3 times a day, PRN arm rash, # 30 Gm, 1 Refills, Acute 06/08/23 9:53:00 EST, 06/08/22 9:53:00 EST, Cream, [facility] #[id number], Partial fill upon patient request if the [...] Role: PCP Address: Address: [address] [place] [address] Adult [facility] [place] [address]- Care Team Related Persons Name: AGUILAR RODOLFO Address: home [address] [facility] [address] [place] [id number] Name: CHIARA TEE Address: home [address] [place] [address] [address] [place] [id number]
--- OUTSIDE RECORDS SUMMARY | 2022-12-30 08:21 | XMS_ITS | Continuity of Care Document ---
Author Name Unknown Organization [facility] Address [address] [place] [address]- Care Team Providers Care Physician Assistant Surgery Name Role Phone Kaiden Chirinos MD Primary Care Physician [place] [facility] [place]20 [place] 11/06/20 [facility] [address] [place], [place] [address] Encounter Diagnosis Urge incontinence(Discharge Diagnosis) - 10/30/20 Major depressive disorder, recurrent episode, moderate(Discharge Diagnosis) - 10/30/20 Anxiety(Discharge Diagnosis) - 10/30/20 Chronic GERD(Discharge Diagnosis) - 10/30/20 Attending Physician: Kaiden Chirinos MD Allergies, Adverse [...] 09/22/20 16:39:00 EDT, Route to Pharmacy Electronically, [facility]/pharmacy #[id number], Partial fill upon patient request if the prescription is for a schedule II... Start Date: 09/22/20 Status: Ordered baclofen 10 mg oral tablet 10 mg, 1, tablet, By Mouth, 3 times a day, PRN, # 30 tablet, Refills 0, Tot. Refills 0, Maintenance, Spasm, 01/31/19 21:47:23 EDT, Route to Pharmacy Electronically, [id number], [facility]/pharmacy #[id number] Start Date: 01/31/19 Stop Date: 02/14/19 Status: Ordered clonazePAM 0.5 mg oral tablet 1 tablet = 0.5 mg, By Mouth, 4 times a day, PRN Anxiety, Patient on controlled substance contract. Please do NOT fill until 09/23/2020, # 112 tablet, 1 Refills, Maintenance, 09/22/20 16:54:00 EDT, Tablet, [facility]/pharmacy [...] 1 Refills, Maintenance, 11/03/20 13:32:00 EDT, Tablet, [facility][id number], Partial fill upon patient request if the prescription is for a schedule II opioid drug., 160, cm, 10/30/20 8:28:00 EDT, H... Start Date: 11/03/20 Status: Ordered ProAir HFA 90 mcg/inh inhalation aerosol 2 puffs, Inhalation, Every 4 hours, PRN as needed for wheezing, # 8.5 Gm, 0 Refills, Maintenance, 09/01/20 20:10:00 EDT, Aerosol, [id number], Partial fill upon [...] Refills, Maintenance, 11/03/20 13:28:00 EDT, Tablet, [id number], Partial fill upon patient request if the [...] Effective Dates Health Status Clinical Service Informant Urge incontinence Discharge Diagnosis 10/30/20 Major depressive disorder, recurrent episode, moderate Discharge Diagnosis 10/30/20 Anxiety Discharge Diagnosis 10/30/20 Chronic GERD Discharge Diagnosis 10/30/20 Vital Signs Most recent to oldest [Reference Range]: 1 Height 160 cm (10/30/20 8:28 AM) Weight 105.5 kg (10/30/20 8:28 AM) Oxygen Saturation [94-100 %] 97 % (10/30/20 8:28 AM) Pulse Rate [55-90 bpm] 92 bpm *H* (10/30/20 8:28 AM) Body Mass Index [18.5-24.99] 41.21 *>HHI* (10/30/20 8:28 AM) Blood Pressure [90-138/55-84 mm Hg] 128/ 80mm Hg (10/30/20 8:28 AM) Respiratory Rate [16-30 br/min] 16 br/mi n (10/30/20 8:28 AM) Temperature [96.8-100.4 DegF] 98.6 DegF (10/30/20 8:28 AM) Mode of Delivery (Oxygen) Room air (10/30/20 8:28 AM) Blood pressure sites Arm, right (10/30/20 8:28 AM) Temperature Route Temporal (10/30/20 8:28 AM) Dry Weight 105.5 kg (10/30/20 8:28 AM) Weight Obtained Via Standing scale (10/30/20 8:28 AM) Social History Social History Type Response Smoking Status Former smoker, quit more than 30 days ago;Never entered on: 04/07/19 Sex
--- OUTSIDE RECORDS SUMMARY | 2022-12-30 08:21 | XMS_ITS | Continuity of Care Document ---
Author Name Unknown Organization [facility] Address [address] [place] [address]- Care Team Providers Care Lasting Machine Operator Name Role Phone Candis CARDENAS, Kaiden Villalta Primary Care Physician [phone] Encounter [facility] [place] Date(s): 09/24/21 - 10/24/21 [facility] [address] [place], [place] [address] Allergies, [...] 8.5 Gm,0 Refills, Maintenance, 09/28/21 16:57:00 T, [facility] #[id number], 2 puffs Inhalation Every 4 hours,PRN: NEEDED FOR WHEEZING/cough/shortness... Start Date: 09/28/21 Status: Ordered albuterol 0.083% inhalation solution 3 mL = 2.5 mg, Inhalation, Every 4 hours, PRN for wheezing/cough/shortness of breath, # 25 each, 0 Refills, Maintenance, 10/14/21 22:10:00 EDT, Solution, [facility] #[id number], Partial fill upon patient request if the [...] capsule, 1 Refills, Maintenance, 09/29/21 15:56:00 EDT, [facility] #[id number], 153, cm, 08/10/21 11:19:00 EDT, Height, 105, [...] 0 Refills, Maintenance, 11/18/20 21:02:00 EDT, Tablet, [facility]acy #[id number], Partial fill upon patient... Start Date: 11/18/20 Status: Ordered diclofenac 1% topical gel = 1 Gm, Topically, 4 times a day, FOR PAIN., # 100 Gm, 1 Refills, [facility] [id number], 30, APPLY 1 GM TOPICALLY 4 TIMES A DAY FOR PAIN, 153, cm, 06/07/21 11:07:00 EST, Height, 105, kg, 05/31/21 15:15:00 EST, Dry Weight Start Date: 08/05/21 Status: Ordered Dilaudid 2 mg oral tablet 1 tablet = 2 mg, By Mouth, 2 times a day, PRN Pain , Severe, checked masspat, # 28 tablet, 0 Refills, Maintenance, 10/08/21 13:52:00 EDT, Tablet, [facility] #[id number], Partial fill upon patient request if the prescription is for a schedule II o... Start Date: 10/08/21 Status: Ordered Famotidine 0 Refills, Maintenance, 04/07/19 16:11:00 EST Start Date: 04/07/19 Status: Ordered fluconazole 150 mg oral tablet 1 tablet = 150 mg, By Mouth, Once, # 1 tablet, 0 Refills, Soft Stop, 09/21/21 11:15:00 EDT, Tablet,[facility] #[id number], Partial fill upon patient request if the prescription is for a schedule II opioid drug., 153, cm, 08/10/21 11:19:00 EDT, H... Start Date: 09/21/21 Status: Ordered gabapentin 800 mg oral tablet See Instructions, TAKE 1 TABLET BY MOUTH FOUR TIMES DAILY, # 360 tablet, 0 Refills, [facility] #[id number], 153, cm, 10/08/21 13:23:00 EDT, Height, 113.9, [...] capsule, 1 Refills, Maintenance, 09/28/21 16:58:00 EDT, [facility] #[id number], 153, cm, 08/10/21 11:19:00 EDT, Height, 105, [...] tablet, 1 Refills, Maintenance, 07/30/21 12:25:00 EDT, [facility] #[id number], Partial fill upon patient request if the prescription is for a schedule II opioid drug... Start Date: 07/30/21 Status: Ordered lidocaine 2% topical gel with applicator 5 mL = 0.1 Gm, Topically, 2 times a day, PRN Pain , Moderate, # 60 mL, 2 Refills, Soft Stop, 09/24/21 16:43:00 EDT, Gel, [facility] #[id number], Partial fill upon patient request if the [...] 90 capsule, 0 Refills, 09/27/21 14:31:00 EDT, [facility] #[id number], 153, cm, 08/10/21 11:19:00 EDT, Height, 105, kg, 05/31/21 15:15:00 EST, Dry Weight Start Date: 09/27/21 Status: Ordered ondansetron 4 mg oral tablet 1 tablet = 4 mg, By Mouth, Every 8 hours, PRN Nausea & Vomiting, # 30 tablet, 1 Refills, Maintenance, 09/28/21 16:56:00 EDT, [facility] #[id number], 153, cm, 08/10/21 11:19:00 EDT, Height, 105, kg, 05/31/21 15:15:00 EST, Dry Weight Start Date: 09/28/21 Status: Ordered oxybutynin 5 mg oral tablet 1 tablet, By Mouth, 3 times a day, # 270 tablet, 1 Refills, [id number], 153, cm, 08/10/21 11:19:00 EDT, Height, 105, [...] 1 Refills, Maintenance, 07/30/21 12:22:00 EDT, Tablet, [facility] #[id number], Partial fill upon patient request if the [...]
--- OUTSIDE RECORDS SUMMARY | 2022-12-30 08:21 | XMS_ITS | Continuity of Care Document ---
Author Name Unknown Organization [facility] Address [address] [place] [address]- Care Team Providers Care Audiovisual Lead Technician Name Role Phone Kaiden Chirinos MD Primary Care Physician Encounter [facility] [place] Date(s): 02/24/21 - 03/26/21 [facility] [address] [place], [place] [address] Allergies, Adverse Reactions, Alerts [...] 12/24/20 16:08:00 EDT, Route to Pharmacy Electronically, [facility]/pharmacy #[id number], Partial fill upon patient request if the prescription is for a schedule II... Start Date: 12/24/20 Status: Ordered baclofen 10 mg oral tablet 10 mg, 1, tablet, By Mouth, 3 times a day, PRN, # 30 tablet, Refills 0, Tot. Refills 0, Maintenance, Spasm, 01/31/19 21:47:23 EDT, Route to Pharmacy Electronically, [id number], [facility]/pharmacy #[id number] Start Date: 01/31/19 Stop Date: 02/14/19 Status: Ordered benzonatate 100 mg oral capsule 2 capsule, By Mouth, 3 times a day, PRN NEEDED FOR COUGH, # 30 capsule, 1 Refills, Physician Stop 03/19/22 17:38:00 EST, 02/19/22 16:55:00 EDT, [facility]/pharmacy #[id number], 160, cm, 12/04/20 10:52:00 EDT, Height, 104.6, kg, 12/04/20 10:52:00 EDT, Dry Weight Start Date: 02/19/22 Stop Date: 03/19/22 Status: Ordered benzonatate 100 mg oral capsule 2 capsule, By Mouth, 3 times a day, PRN NEEDED FOR COUGH, # 30 capsule, 1 Refills, Physician Stop 02/19/22 16:55:00 EDT, 02/19/21 16:54:00 EDT, [facility]/pharmacy #[id number], 160, cm, 12/04/20 10:52:00 [...] tablet, 1 Refills, Maintenance, 11/09/20 23:47:00EDT, Tablet, [facility]/pharmacy #[id number], Partial fill upon patient [...] 1 Refills, Maintenance, 02/25/21 8:28:00 EST, Capsule, [facility]/pharmacy #[id number], Partial fill upon patient [...] 1 Refills, Maintenance, 11/05/20 11:43:00 EDT, Tablet, [facility]/pharmacy #[id number], Partial fill upon patient request if the prescription is for a schedule II opioid drug., 160, cm, 10/30/20 8:2... Start Date: 11/05/20 Status: Ordered meloxicam 15 mg oral tablet 1/2 TO 1 TABLET, By Mouth, Daily, PRN NEEDED FOR MODERATE PAIN, # 30 tablet, 1 Refills, [facility] 86931, 160, cm, 12/04/20 10:52:00 EDT, Height, 104.6, kg, 12/04/20 10:52:00 EDT, Dry Weight Start Date: 01/22/21 Status: Ordered omeprazole 20 mg oral enteric coated capsule 1 capsule, By Mouth, Daily, # 90 capsule, 0 Refills, Maintenance, 01/14/21 13:42:00 EDT, [facility]/pharmacy #[id number], 160, cm, 12/04/20 10:52:00 EDT, Height, 104.6, kg, 12/04/20 10:52:00 EDT, Dry Weight Start Date: 01/14/21 Status: Ordered ondansetron 4 mg oral tablet See Instructions, TAKE 1 TABLET BY MOUTH EVERY 8 HOURS NEEDED FOR NAUSEA AND VOMITING, # 15 tablet, 1 Refills, Physician Stop 04/19/21 17:37:00 EST, 03/19/21 17:37:00 EST, [facility]/pharmacy #[id number], 160,cm, 12/04/20 10:52:00 EDT, Height, 104.6, kg, 12/04... Start Date: 03/19/21 Stop Date: 04/19/21 Status: Ordered oxybutynin 5 mg oral tablet 1 tablet, By Mouth, 3 times a day, dose increase, # 270 tablet, 1 Refills, Maintenance, 03/19/21 17:40:00 EST, [facility]/pharmacy #[id number], 160, cm, 12/04/20 10:52:00 EDT, Height, 104.6, kg, 12/04/20 10:52:00EDT, Dry Weight Start Date: 03/19/21 Status: Ordered ProAir HFA 90 mcg/inh inhalation aerosol 2 puffs, Inhalation, Every 4 hours, PRN as needed for wheezing, # 8.5 Gm, 0 Refills, Maintenance, 11/16/20 8:39:00 EDT, Aerosol, [facility]/pharmacy #[id number], Partial fill upon patient [...] 1 Refills, Maintenance, 10/30/20 8:45:00 EDT, Tablet, [facility]/pharmacy #[id number], Partial fill upon patient reques... Start Date: 10/30/20 Status: Ordered traZODone 150 mg oral tablet 1.5 tablet = 225 mg, By Mouth, Daily at bedtime, dose increase, # 135 tablet, 1 Refills, Maintenance, 03/19/21 17:41:00 EST, Tablet, [facility]/pharmacy #[id number], Partial fill upon patient request if the prescription is for a schedule II opioid drug., 160, cm,... Start Date: 03/19/21 Status: Ordered Vitamin D3 50,000 intl units [...]
--- OUTSIDE RECORDS SUMMARY | 2022-12-30 08:21 | XMS_ITS | Continuity of Care Document ---
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 Cutting Machine Operator Name Role Phone Candis CARDENAS, Kaiden Villalta Primary Care Physician Encounter [facility] [place] Date(s): 05/26/21 - 06/25/21 [facility] [address] [place], [place] [address] Allergies, Adverse Reactions, Alerts Substance [...] FOR WHEEZING, # 8.5 each, 0 Refills, [facility] [id number], 20, INHALE 2 PUFFS BY MOUTH EVERY [...] 01/31/19 21:47:23 EDT, Route to Pharmacy Electronically, [id number], [facility]/pharmacy #[id number] Start Date: 01/31/19 Stop [...] # 360 tablet, 1 Refills, [facility], 160, cm, 03/30/21 10:47:00 EST, Height, 104.6, [...] Maintenance, 06/07/21 19:08:00 EST, Capsule, [facility]/pharmacy #[id number], Partial fill upon patient [...] # 90 capsule, 1 Refills, [facility], 160, cm, 03/30/21 10:47:00 EST, Height, 104.6, [...] 1 Refills, Maintenance, 10/30/20 8:45:00 EDT, Tablet, [facility]/pharmacy #[id number], Partial fill upon patient reques... Start Date: 10/30/20 Status: Ordered traZODone 150 mg oral tablet 1.5 tablet = 225 mg, By Mouth, Daily at bedtime, dose increase, # 135 tablet, 1 Refills, Maintenance, 04/06/21 12:26:00 EST, Tablet, [facility]/pharmacy #[id number], Partial fill [...] 1 Refills, Maintenance, 06/11/21 14:11:00 EST, Gel, [facility]/pharmacy #[id number], Partial fill upon patient [...]
--- OUTSIDE RECORDS SUMMARY | 2022-12-30 08:21 | XMS_ITS | Continuity of Care Document ---
Author Name Unknown Organization [facility] Address [address] [place] [address]- Care Team Providers Care Associate Consulting Engineer Name Role Phone Kaiden Chirinos MD Primary Care Physician [phone] Encounter [facility] [place] Date(s): 09/29/21 - 10/29/21 [facility] [address] [place], [place] [address] Allergies, Adverse [...] 8.5 Gm,0 Refills, Maintenance, 09/28/21 16:57:00 EDT, [facility] #[id number], 2 puffs Inhalation Every 4 hours,PRN: NEEDED FOR WHEEZING/cough/shortness... Start Date: 09/28/21 Status: Ordered albuterol 0.083% inhalation solution 3 mL = 2.5 mg, Inhalation, Every 4 hours, PRN for wheezing/cough/shortness of breath, # 25 each, 0 Refills, Maintenance, 10/14/21 22:10:00 EDT, Solution, [facility] #[id number], Partial fill upon patient request if the prescription is for a sched... Start Date: 10/14/21 Status: Ordered benzonatate 100 mg oral capsule 2 capsule, By Mouth, 3 times a day, PRN NEEDED FOR COUGH, # 30 capsule, 1 Refills, Physician Stop 03/19/22 17:38:00 EST, 02/19/22 16:55:00 EDT, [facility]/pharmacy #[id number], 160, cm, 12/04/20 10:52:00 EDT, Height, 104.6, kg, 12/04/20 10:52:00 EDT, Dry Weight Start Date: 02/19/22 Stop Date: 03/19/22 Status: Ordered benzonatate 100 mg oral capsule 2 capsule, By Mouth, 3 times a day, PRN NEEDED FOR COUGH, # 30 capsule, 1 Refills, Maintenance, 09/29/21 15:56:00 EDT, [facility] #[id number], 153, cm, 08/10/21 11:19:00 EDT, Height, 105, kg,05/31/21 15:15:00 EST, Dry Weight Start Date: 09/29/21 Status: Ordered budesonide 1 mg/2 mL inhalation suspension 2 mL = 1 mg, Neb, 2 times a day, rinse mouth out after use, # 120 mL, 1 Refills, Maintenance, 10/25/21 18:30:00 EDT, Suspension, [facility] #[id number], Partial fill upon patient request if the [...] Refills, Maintenance, 11/18/20 21:02:00 EDT, Tablet, [facility]/pharmacy #[id number], Partial fill upon patient... Start Date: 11/18/20 Status: Ordered diclofenac 1% topical gel = 1 Gm, Topically, 4 times a day, FOR PAIN., # 100 Gm, 1 Refills, [id number], 30, APPLY 1 GM TOPICALLY 4 TIMES A DAY FOR PAIN, 153, cm, 06/07/21 11:07:00 EST, Height, 105, kg, 05/31/21 15:15:00 EST, Dry Weight Start Date: 08/05/21 Status: Ordered Dilaudid 2 mg oral tablet 1 tablet = 2 mg, By Mouth, 2 times a day, PRN Pain , Severe, checked masspat, # 28 tablet, 0 Refills, Maintenance, 10/25/21 21:55:00 EDT, Tablet, [facility] #[id number], Partial fill upon patient request if the prescription is for a schedule II o... Start Date: 10/25/21 Status: Ordered Famotidine 0 Refills, Maintenance, 04/07/19 16:11:00 EST Start Date: 04/07/19 Status: Ordered fluconazole 150 mg oral tablet 1 tablet = 150 mg, By Mouth, Once, # 1 tablet, 0 Refills, Soft Stop, 09/21/21 11:15:00 EDT, Tablet,[facility] #[id number], Partial fill upon patient request if the prescription is for a schedule II opioid drug., 153, cm, 08/10/21 11:19:00 EDT, H... Start Date: 09/21/21 Status: Ordered gabapentin 800 mg oral tablet See Instructions, TAKE 1 TABLET BY MOUTH FOUR TIMES DAILY, # 360 tablet, 0 Refills, [facility] #[id number], 153, cm, 10/08/21 13:23:00 EDT, Height, 113.9, [...] capsule, 1 Refills, Maintenance, 09/28/21 16:58:00 EDT, [facility] #[id number], 153, cm, 08/10/21 11:19:00 EDT, Height, 105, [...] 1 Refills, Maintenance, 07/30/21 12:25:00 EDT, Tablet, [facility] #[id number], Partial fill upon patient request if the prescription is for a schedule II opioid drug... Start Date: 07/30/21 Status: Ordered lidocaine 2% topical gel with applicator 5 mL = 0.1 Gm, Topically, 2 times a day, PRN Pain , Moderate, # 60 mL, 2 Refills, Soft Stop, 09/24/21 16:43:00 EDT, Gel, [facility] #[id number], Partial fill upon patient request if the [...] 10/30/21 18:35:00 EDT, 10/25/21 18:35:00 EDT, Capsule, [facility] #[id number], Partial fill upon patient request if the prescription is for a sched... Start Date: 10/25/21 Stop Date: 10/30/21 Status: Ordered omeprazole 20 mg oral enteric coated capsule 1 capsule, By Mouth, Daily, # 90 capsule, 0 Refills, 09/27/21 14:31:00 EDT, [facility] #[id number], 153, cm, 08/10/21 11:19:00 EDT, Height, 105, kg, 05/31/21 15:15:00 EST, Dry Weight Start Date: 09/27/21 Status: Ordered ondansetron 4 mg oral tablet 1 tablet = 4 mg, By Mouth, Every 8 hours, PRN Nausea & Vomiting, # 30 tablet, 1 Refills, Maintenance, 09/28/21 16:56:00 EDT, [facility] #[id number], 153, cm, 08/10/21 11:19:00 EDT, Height, 105, kg, 05/31/21 15:15:00 EST, Dry Weight Start Date: 09/28/21 Status: Ordered oxybutynin 5 mg oral tablet 1 tablet, By Mouth, 3 times a day, # 270 tablet, 1 Refills, [id number], 153, cm, 08/10/21 11:19:00 EDT, Height, 105, [...] 1 Refills, Maintenance, 07/30/21 12:22:00 EDT, Tablet, [facility] #[id number], Partial fill upon patient request if the [...]
--- OUTSIDE RECORDS SUMMARY | 2022-12-30 08:21 | XMS_ITS | Continuity of Care Document ---
Author Name Unknown Organization [facility] Address [address] [place] [address]- Care Team Providers Care Table Maker Name Role Phone Kaiden Chirinos MD Primary Care Physician Encounter [facility] [place] Date(s): 12/16/20 - 01/15/21 [facility] [address] [place], [place] [address] Allergies, Adverse Reactions, Alerts [...] 12/24/20 16:08:00 EDT, Route to Pharmacy Electronically, [facility]/pharmacy #[id number], Partial fill upon patient request if the prescription is for a schedule II... Start Date: 12/24/20 Status: Ordered baclofen 10 mg oral tablet 10 mg, 1, tablet, By Mouth, 3 times a day, PRN, # 30 tablet, Refills 0, Tot. Refills 0, Maintenance, Spasm, 01/31/19 21:47:23 EDT, Route to Pharmacy Electronically, [id number], [facility]/pharmacy #[id number] Start Date: 01/31/19 [...] tablet, 1 Refills, Maintenance, 11/09/20 23:47:00EDT, Tablet, [facility]/pharmacy #[id number], Partial [...] 1 Refills, Maintenance, 11/05/20 11:43:00 EDT, Tablet, [facility]/pharmacy #[id number], [...] more than 30 days ago;Never entered on: 12/22/19 Sex
--- OUTSIDE RECORDS SUMMARY | 2022-12-30 08:21 | XMS_ITS | Continuity of Care Document ---
Author Name Unknown Organization [facility] Address [address] [place] [address]- Care Team Providers Care Cranberry Farm Supervisor Name Role Phone Candis CARDENAS, Kaiden Villalta Primary Care Physician [place] [facility] [place]/14[place]22 - 03/16/22 [facility] [address] [place], [place] [address] Allergies, Adverse Reactions, Alerts [...] 8.5 Gm,0 Refills, Maintenance, 12/22/21 10:40:00 EDT, [facility] #[id number], 2 puffs Inhalation Every 4 hours,PRN: NEEDED FOR WHEEZING/cough/shortness... Start Date: 12/22/21 Status: Ordered albuterol 0.083% inhalation solution 3 mL = 2.5 mg, Inhalation, Every 4 hours, PRN for wheezing/cough/shortness of breath, # 25 each, 0 Refills, Maintenance, 10/14/21 22:10:00 EDT, Solution, [facility] #[id number], Partial fill upon patient request if the prescription is for a sched... Start Date: 10/14/21 Status: Ordered [place] Saline Mist 0.65% nasal spray 2 sprays, Nares, Both, 4 times a day, # 1 each, 0 Refills, Maintenance, 02/04/22 13:32:00 EDT, [facility] #[id number], Partial fill upon patient request if the [...] tablet, 0 Refills, Maintenance, 12/27/21 13:43:00 EDT, [facility] #[id number], 153, cm, 10/08/21 13:23:00 EDT, Height, 113.9, kg, 10/08/21 13:23:00EDT, Dry Weight Start Date: 12/27/21 Status: Ordered clonazePAM 0.5 mg oral tablet 1 tablet = 0.5 mg, By Mouth, 4 times a day, PRN Anxiety, Patient on controlled substance contract. Please do NOT fill until 09/23/2020, # 112 tablet, 0 Refills, Maintenance, 11/18/20 21:02:00 EDT, Tablet, [facility]/pharmacy #[id number], Partial fill upon patient... Start Date: 11/18/20 Status: Ordered diclofenac 1% topical gel = 1 Gm, Topically, 4 times a day, FOR PAIN., # 100 Gm, 1 Refills, [facility], 30, APPLY 1 GM TOPICALLY 4 TIMES A DAY FOR PAIN, 153, cm, 06/07/21 11:07:00 EST, Height, 105, kg, 05/31/21 15:15:00 EST, Dry Weight Start Date: 08/05/21 Status: Ordered Dilaudid 2 mg oral tablet 1 tablet = 2 mg, By Mouth, 2 times a day, PRN Pain , Severe, checked masspat, # 28 tablet, 0 Refills, Maintenance, 03/04/22 14:11:00 EST, Tablet, [facility] #[id number], Partial fill upon patient request if the prescription is for a schedule II o... Start Date: 03/04/22 Status: Ordered Estrace Vaginal Cream 0.1 mg/g = 2 Gm, Vaginally, Daily at bedtime, 2g PV daily at bedtime x 2 weeks, then 1g PV 1-3x per week, # 42.5 Gm, 5 Refills, Maintenance, 11/09/21 11:17:00 EDT, [facility] #[id number], Partial fill upon patient request if the prescription is for a sche... Start Date: 11/09/21 Status: Ordered Estradiol Patch 0.0375 mg/24 hours twice weekly transdermal film, extended release See Instructions, APPLY 1 PATCH TOPICALLY TWICE WEEKLY DIRECTED, # 8 patch, 0 Refills, Maintenance, 02/26/22 10:23:00 EST, [facility] #[id number], 28, APPLY 1 PATCH TOPICALLY TWICE WEEKLY DIRECTED, 153, cm, 01/04/22 13:15:00 EDT, Height, 11... Start Date: 02/26/22 Status: Ordered fluconazole 150 mg oral tablet 1 tablet = 150 mg, By Mouth, Once, PRN vaginal yeast infection, # 1 tablet, 0 Refills, Soft Stop, 03/15/22 10:42:00 EST, Tablet, [facility] #[id number], Partial fill upon patient request if the prescription is for a schedule II opioid drug., 153,... Start Date: 03/15/22 Status: Ordered gabapentin 800 mg oral tablet See Instructions, TAKE 1 TABLET BY MOUTH FOUR TIMES DAILY, # 360 tablet, 0 Refills, [facility] #[id number], 153, cm, 10/08/21 13:23:00 EDT, Height, 113.9, [...] capsule, 1 Refills, Maintenance, 12/08/21 10:10:00 EDT, [facility] #[id number], 153, cm, 10/08/21 13:23:00 EDT, Height, 113.9,kg, [...] 1 Refills, Maintenance, 03/14/22 15:04:00 EST, Tablet, [facility] #[id number], Partial fill upon patient request if the prescription is for a schedule II opioid drug., 153, cm... Start Date: 03/14/22 Status: Ordered lidocaine 3% topical gel 1 application, Topically, 2 times a day, PRN as needed for pain, to replace 2% topical, # 28.5 Gm, 2 Refills, Acute 03/29/22 14:17:00 EST, 12/28/21 14:17:00 EDT, Gel, [facility] #[id number], Partial fill upon patient request if the prescription i... Start Date: 12/28/21 Stop Date: 03/29/22 Status: Ordered meloxicam 15 mg oral tablet 1/2 TO 1 TABLET, By Mouth, Daily, PRN NEEDED FOR MODERATE PAIN, # 30 tablet, 5 Refills, Maintenance, 01/10/22 20:40:00 EDT, [facility] #[id number], 153, cm, 01/04/22 13:15:00 EDT, Height, 113.9, [...] capsule, 0 Refills, Maintenance, 01/16/22 8:28:00 EDT, [facility] #[id number], 153, cm, 01/04/22 13:15:00 EDT, Height, 113.9, kg, 10/08/21 13:23:00 EDT, Dry Weight Start Date: 01/16/22 Status: Ordered ondansetron 4 mg oral tablet 1 tablet, By Mouth, Every 8 hours, PRN NEEDED FOR NAUSEA OR VOMITING, # 30 tablet, 0 Refills, Maintenance, 03/01/22 11:29:00 EST, [facility] #[id number], 153, cm, 01/04/22 13:15:00 EDT, Height, 113.9, kg, 10/08/21 13:23:00 EDT, Dry Weight Start Date: 03/01/22 Status: Ordered oxybutynin 5 mg oral tablet 1 tablet, By Mouth, 3 times a day, # 270 tablet, 1 Refills, 01/10/22 10:29:00 EDT, [facility] #[id number], 153, cm, 01/04/22 13:15:00 EDT, Height, 113.9, [...] 03/14/22 15:10:00 EST, Route to Pharmacy Electronically, [facility] #[id number], Partial fill upon patient request if the... Start Date: 03/14/22 Status: Ordered valacyclovir 1 gm oral tablet 1 tablet = 1 Gm, By Mouth, 3 times a day, for 7 days, # 21 tablet, 0 Refills, Acute 03/22/22 10:41:00 EST, 03/15/22 10:41:00 EST, Tablet, [facility] #[id number], Partial fill upon patient request if the [...] Personnel Name: Candis CARDENAS, Kaiden Villalta Position: [facility] Primary Care Physician Member Role: PCP Address: Address: [address] [place] [address] Adult [place] [address]- Care Team Related Persons Name: RODOLFO SHEIKH Address: home [address] [facility] [address] [place] [id number] Name: CHIARA TEE Address: home [address] [place] [address] [place] [id number]
--- OUTSIDE RECORDS SUMMARY | 2022-12-30 08:21 | XMS_ITS | Continuity of Care Document ---
Author Name Unknown Organization 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 [address] [place], [place] [address] [...] # 8.5 each, 0 Refills, [facility], 20, INHALE 2 PUFFS BY MOUTH EVERY [...] 01/31/19 21:47:23 EDT, Route to Pharmacy Electronically, [id number], [facility]/pharmacy #[id number] Start Date: [...] 06/24/21 17:15:00 EST, 06/10/21 17:12:00 EST, Tablet, [facility]/pharmacy #[id number], Partial fill upon patient request if the prescription is for a schedule... Start Date: 06/10/21 Stop Date: 06/24/21 Status: Ordered Famotidine 0 Refills, Maintenance, 04/07/19 16:11:00 EST Start Date: 04/07/19 Status: Ordered gabapentin 800 mg oral tablet 1 tablet, By Mouth, 4 times a day, # 360 tablet, 1 Refills, [facility] [id number], 160, cm, 03/30/21 10:47:00 EST, Height, 104.6, [...] 1 Refills, Maintenance, 06/07/21 19:08:00 EST, Capsule, [facility]/pharmacy #[id number], Partial fill [...] 1 Refills, [facility] 407[facility], 160, cm, 03/30/21 10:47:00 EST, Height, 104.6, kg, 12/04/20 10:52:00 EDT, Dry Weight Start Date: 03/31/21 Status: Ordered ondansetron 4 mg oral tablet See Instructions, TAKE 1 TABLET BY MOUTH EVERY 8 HOURS NEEDED FOR NAUSEA AND VOMITING, # 15 tablet, 1 Refills, Physician Stop 07/12/21 15:23:00 EDT, 05/14/21 15:22:00 EST, [facility]/pharmacy #[id number], 160,cm, 03/30/21 10:47:00 EST, Height, 104.6, kg, 12/04... Start Date: 05/14/21 Stop Date: 07/12/21 Status: Ordered oxybutynin 5 mg oral tablet 1 tablet, By Mouth, 3 times a day, dose increase, # 270 tablet, 1 Refills, Maintenance, 03/19/21 17:40:00 EST, [facility]/pharmacy #[id number], 160, cm, 12/04/20 10:52:00 EDT, Height, 104.6, kg, 12/04/20 10:52:00EDT, Dry Weight Start Date: 03/19/21 Status: Ordered Qvar Redihaler 40 mcg/inh inhalation aerosol = 40 mcg, Inhalation, 2 times a day, to replace flovent rinse mouth and throat after use, # 1 each,1 Refills, Maintenance, 03/30/21 20:35:00 EST, [facility]/pharmacy #[id number], Partial fill [...] 1 Refills, Maintenance, 10/30/20 8:45:00 EDT, Tablet, [facility]/pharmacy #[id number], Partial fill upon patient reques... Start Date: 10/30/20 Status: Ordered traZODone 150 mg oral tablet 1.5 tablet = 225 mg, By Mouth, Daily at bedtime, dose increase, # 135 tablet, 1 Refills, Maintenance, 04/06/21 12:26:00 EST, Tablet, [facility]/pharmacy #[id number], [...] Refills, Maintenance, 06/07/21 11:39:00 EST, [facility], [id number], Partial fill upon [...]
--- OUTSIDE RECORDS SUMMARY | 2022-12-30 08:21 | XMS_ITS | Continuity of Care Document ---
Author Name Unknown Organization [facility] Address [address] [place] [address]- Care Team Providers Care Credit Card Associate Name Role Phone Kaiden Chirinos MD Primary Care Physician [phone] Encounter [facility] [place] Date(s): 12/08/21 - 01/07/22 [facility] [address] [place], [place] [address] Allergies, Adverse Reactions, Alerts Substance [...] 8.5 Gm,0 Refills, Maintenance, 12/22/21 10:40:00 EDT, [facility] #[id number], 2 puffs Inhalation Every 4 hours,PRN: NEEDED FOR WHEEZING/cough/shortness... Start Date: 12/22/21 Status: Ordered albuterol 0.083% inhalation solution 3 mL = 2.5 mg, Inhalation, Every 4 hours, PRN for wheezing/cough/shortness of breath, # 25 each, 0 Refills, Maintenance, 10/14/21 22:10:00 EDT, Solution, [facility] #[id number], Partial fill upon patient request if the [...] tablet, 0 Refills, Maintenance, 12/27/21 13:43:00 EDT, [facility] #[id number], 153, cm, 10/08/21 13:23:00 EDT, Height, 113.9, [...] FOR PAIN., # 100 Gm, 1 Refills, [facility], 30, APPLY 1 GM TOPICALLY 4 TIMES A DAY FOR PAIN, 153, cm, 06/07/21 11:07:00 EST, Height, 105, kg, 05/31/21 15:15:00 EST, Dry Weight Start Date: 08/05/21 Status: Ordered Dilaudid 2 mg oral tablet 1 tablet = 2 mg, By Mouth, 2 times a day, PRN Pain , Severe, checked masspat, # 28 tablet, 0 Refills, Maintenance, 01/05/22 10:35:00 EDT, Tablet, [facility] #[id number], Partial fill upon patient request if the prescription is for a schedule II o... Start Date: 01/05/22 Status: Ordered Estrace Vaginal Cream 0.1 mg/g = 2 Gm, Vaginally, Daily at bedtime, 2g PV daily at bedtime x 2 weeks, then 1g PV 1-3x per week, # 42.5 Gm, 5 Refills, Maintenance, 11/09/21 11:17:00 EDT, [facility] #[id number], Partial fill upon patient request if the prescription is for a sche... Start Date: 11/09/21 Status: Ordered estradiol 0.0375 mg/24 hours twice weekly transdermal film, extended release See Instructions, 1 patch Topically, change patch twice a week, # 1 pack/packet, 1 Refills, Maintenance, 12/07/21 10:42:00 EDT, [facility] #58529, Partial fill upon patient request if the prescription is for a schedule II opioid drug., 153,... Start Date: 12/07/21 Status: Ordered gabapentin 800 mg oral tablet See Instructions, TAKE 1 TABLET BY MOUTH FOUR TIMES DAILY, # 360 tablet, 0 Refills, [facility] #[id number], 153, cm, 10/08/21 13:23:00 EDT, Height, 113.9, [...] capsule, 1 Refills, Maintenance, 12/08/21 10:10:00 EDT, [facility] #[id number], 153, cm, 10/08/21 13:23:00 EDT, Height, 113.9,kg, [...] tablet, 1 Refills, Maintenance, 07/30/21 12:25:00 EDT, [place], [facility] #[id number], Partial fill upon patient request if the prescription is for a schedule II opioid drug... Start Date: 07/30/21 Status: Ordered levothyroxine 0.1 mg oral tablet 1 tablet = 100 mcg, By Mouth, Daily, dose increase, # 90 tablet, 0 Refills, Maintenance, 11/01/21 16:08:00 EDT, [facility] #[id number], Please discontinue 88ug, 153, cm, 10/08/21 13:23:00 [...] tablet, 1 Refills, Maintenance, 11/30/21 15:44:00 EDT, [facility]49724, [place]... Start Date: 11/30/21 Status: Ordered lidocaine 3% topical gel 1 application, Topically, 2 times a day, PRN as needed for pain, to replace 2% topical, # 28.5 Gm, 2 Refills, Acute 03/29/22 14:17:00 EST, 12/28/21 14:17:00 EDT, Gel, [facility] #97007, Partial fill upon patient request if the prescription i... Start Date: 12/28/21 Stop Date: 03/29/22 Status: Ordered lidocaine 4% topical cream 1 application, Topically, 2 times a day, PRN Pain , Mild, # 30 Gm, 1 Refills, Acute 01/27/22 17:31:00 EDT, 12/28/21 17:31:00 EDT, Cream, [facility] #[id number], Partial fill upon patient requestif the prescription is for a schedule II opioid cedrick... Start Date: 12/28/21 Stop Date: 01/27/22 Status: Ordered meloxicam 15 mg oral tablet 1/2 TO 1 TABLET, By Mouth, Daily, PRN NEEDED FOR MODERATE PAIN, # 30 tablet, 1 Refills, :04:00 EDT, [facility] #[id number], 153, cm, 10/08/21 13:23:00 EDT, Height, 113.9, [...] 90 capsule, 0 Refills, 09/27/21 14:31:00 EDT, [facility] #32521, 153, cm, 08/10/21 11:19:00 EDT, Height, 105, kg, 05/31/21 15:15:00 EST, Dry Weight Start Date: 09/27/21 Status: Ordered ondansetron 4 mg oral tablet 1 tablet = 4 mg, By Mouth, Every 8 hours, PRN Nausea & Vomiting, # 30 tablet, 1 Refills, Maintenance, 11/10/21 14:47:00 EDT, [facility] #[id number], 153, cm, 10/08/21 13:23:00 EDT, Height, 113.9, kg, 10/08/21 13:23:00 EDT, Dry Weight Start Date: 11/10/21 Status: Ordered oxybutynin 5 mg oral tablet 1 tablet, By Mouth, 3 times a day, # 270 tablet, 1 Refills, 01/05/22 9:12:00 EDT, [facility] #[id number], 153, cm, 01/04/22 13:15:00 EDT, Height, 113.9, [...] 01/11/22 13:32:00 EDT, 01/04/22 13:32:00 EDT, Tablet, [facility] #[id number], Partial fill upon patient request if the [...] Personnel Name: Candis CARDENAS, Kaiden Villalta Address: [address] [place] [address] Adult & Pediatric Medicine [place], [place] [address]
--- OUTSIDE RECORDS SUMMARY | 2022-12-30 08:21 | XMS_ITS | Continuity of Care Document ---
Author Name Unknown Organization [facility] Address [address] [place] [address]- Care Team Providers Care Mechanical Operator Name Role Phone Candis CARDENAS, Kaiden Villalta Primary Care Physician [phone] Encounter [facility] Date(s): 03/14/22 - 04/13/22 [facility] [address], [place] [address] Allergies, [...] 8.5 Gm,0 Refills, Maintenance, 12/22/21 10:40:00 EDT, [facility] #[id number], 2 puffs Inhalation Every 4 hours,PRN: NEEDED FOR WHEEZING/cough/shortness... Start Date: 12/22/21 Status: Ordered albuterol 0.083% inhalation solution 3 mL = 2.5 mg, Inhalation, Every 4 hours, PRN for wheezing/cough/shortness of breath, # 25 each, 0 Refills, Maintenance, 10/14/21 22:10:00 EDT, Solution, [facility] #[id number], Partial fill upon patient request if the prescription is for a sched... Start Date: 10/14/21 Status: Ordered [place] Saline Mist 0.65% nasal spray 2 sprays, Nares, Both, 4 times a day, # 1 each, 0 Refills, Maintenance, 02/04/22 13:32:00 EDT, [facility] #[id number], Partial fill upon patient request if the [...] tablet, 0 Refills, Maintenance, 12/27/21 13:43:00 EDT, [facility] #[id number], 153, cm, 10/08/21 13:23:00 EDT, Height, 113.9, kg, 10/08/21 13:23:00EDT, Dry Weight Start Date: 12/27/21 Status: Ordered clonazePAM 0.5 mg oral tablet 1 tablet = 0.5 mg, By Mouth, 4 times a day, PRN Anxiety, Patient on controlled substance contract. Please do NOT fill until 09/23/2020, # 112 tablet, 0 Refills, Maintenance, 11/18/20 21:02:00 EDT, Tablet, [facility]/pharmacy #[id number], Partial fill upon patient... Start Date: 11/18/20 Status: Ordered diclofenac 1% topical gel = 1 Gm, Topically, 4 times a day, FOR PAIN., # 100 Gm, 1 Refills, [id number], 30, APPLY 1 GM TOPICALLY 4 TIMES A DAY FOR PAIN, 153, cm, 06/07/21 11:07:00 EST, Height, 105, kg, 05/31/21 15:15:00 EST, Dry Weight Start Date: 08/05/21 Status: Ordered Dilaudid 2 mg oral tablet 1 tablet = 2 mg, By Mouth, 2 times a day, PRN Pain , Severe, checked masspat, # 56 tablet, 0 Refills, Maintenance, 04/07/22 21:32:00 EST, Tablet, [facility] #[id number], Partial fill upon patient request if the prescription is for a schedule II o... Start Date: 04/07/22 Status: Ordered Estrace Vaginal Cream 0.1 mg/g = 2 Gm, Vaginally, Daily at bedtime, 2g PV daily at bedtime x 2 weeks, then 1g PV 1-3x per week, # 42.5 Gm, 5 Refills, Maintenance, 11/09/21 11:17:00 EDT, [facility] #[id number], Partial fill upon patient request if the prescription is for a sche... Start Date: 11/09/21 Status: Ordered Estradiol Patch 0.0375 mg/24 hours twice weekly transdermal film, extended release See Instructions, APPLY 1 PATCH TOPICALLY TWICE WEEKLY DIRECTED, # 8 patch, 6 Refills, Maintenance, 03/23/22 16:10:00 EST, [facility] #[id number], 28, APPLY 1 PATCH TOPICALLY TWICE WEEKLY DIRECTED, 153, cm, 01/04/22 13:15:00 EDT, Height, 11... Start Date: 03/23/22 Status: Ordered fluconazole 150 mg oral tablet 1 tablet = 150 mg, By Mouth, Once, PRN vaginal yeast infection, # 1 tablet, 0 Refills, Soft Stop, 03/15/22 10:42:00 EST, Tablet, [facility] #[id number], Partial fill upon patient request if the prescription is for a schedule II opioid drug., 153,... Start Date: 03/15/22 Status: Ordered gabapentin 800 mg oral tablet See Instructions, TAKE 1 TABLET BY MOUTH FOUR TIMES DAILY, # 360 tablet, 0 Refills, Maintenance, 04/13/22 20:23:00 EST, [facility] #[id number], 153, cm, 01/04/22 13:15:00 EDT, Height, 113.9, kg,10/08/21 13:23:00 EDT, Dry Weight Start Date: 04/13/22 Status: Ordered gabapentin 800 mg oral tablet 1 tablet, By Mouth, 4 times a day, # 360 tablet, 1 Refills, Maintenance, 04/13/22 20:23:00 EST, [facility] #[id number], 153, cm, 01/04/22 13:15:00 EDT, Height, 113.9, [...] capsule, 1 Refills, Maintenance, 12/08/21 10:10:00 EDT, [facility] #[id number], 153, cm, 10/08/21 13:23:00 EDT, Height, 113.9,kg, [...] 1 Refills, Maintenance, 03/14/22 15:04:00 EST, Tablet, [facility] #[id number], Partial fill upon patient request if the prescription is for a schedule II opioid drug., 153, cm... Start Date: 03/14/22 Status: Ordered meloxicam 15 mg oral tablet 1/2 TO 1 TABLET, By Mouth, Daily, PRN NEEDED FOR MODERATE PAIN, # 30 tablet, 5 Refills, Maintenance, 01/10/22 20:40:00 EDT, [facility] #[id number], 153, cm, 01/04/22 13:15:00 EDT, Height, 113.9, [...] capsule, 0 Refills, Maintenance, 01/16/22 8:28:00 EDT, [facility] #[id number], 153, cm, 01/04/22 13:15:00 EDT, Height, 113.9, kg, 10/08/21 13:23:00 EDT, Dry Weight Start Date: 01/16/22 Status: Ordered ondansetron 4 mg oral tablet 1 tablet, By Mouth, Every 8 hours, PRN NEEDED FOR NAUSEA OR VOMITING, # 30 tablet, 0 Refills, Maintenance, 03/01/22 11:29:00 EST, [facility] #[id number], 153, cm, 01/04/22 13:15:00 EDT, Height, 113.9, kg, 10/08/21 13:23:00 EDT, Dry Weight Start Date: 03/01/22 Status: Ordered oxybutynin 5 mg oral tablet 1 tablet, By Mouth, 3 times a day, # 270 tablet, 1 Refills, 01/10/22 10:29:00 EDT, [facility] #[id number], 153, cm, 01/04/22 13:15:00 EDT, Height, 113.9, [...] 03/14/22 15:10:00 EST, Route to Pharmacy Electronically, [facility] #[id number], Partial fill upon patient request if the... [...] Team Personnel Name: Kaiden Chirinos MD Position: [facility] Primary Care Physician Member Role: PCP Address: Address: [address] [place] [address] Adult [place] [address]- Care Team Related Persons Name: RODOLFO SHEIKH Address: home [address] [address] Name: CHIARA TEE Address: home [address] [place] [address] [place] [id number]
--- OUTSIDE RECORDS SUMMARY | 2022-12-30 08:21 | XMS_ITS | Continuity of Care Document ---
Author Name Unknown Organization [facility] Address [address] [place] [address]- Care Team Providers Care Bobtail Driver Name Role Phone Kaiden Chirinos MD Primary Care Physician [phone] Encounter [facility] Date(s): 11/09/20 - 12/09/20 [facility] [address] [place], [place] [address] Allergies, Adverse Reactions, Alerts Substance [...] 09/22/20 16:39:00 EDT, Route to Pharmacy Electronically, [facility]/pharmacy #[id number], Partial fill upon patient request if the prescription is for a schedule II... Start Date: 09/22/20 Status: Ordered baclofen 10 mg oral tablet 10 mg, 1, tablet, By Mouth, 3 times a day, PRN, # 30 tablet, Refills 0, Tot. Refills 0, Maintenance, Spasm, 01/31/19 21:47:23 EDT, Route to Pharmacy Electronically, [id number], [facility]/pharmacy #[id number] Start Date: 01/31/19 Stop Date: [...] 1 Refills, Maintenance, 11/09/20 23:47:00EDT, Tablet, [facility]/pharmacy #[id number], Partial fill upon patient request [...] Refills, Maintenance, 11/05/20 11:43:00 EDT, Tablet, [facility]/pharmacy #[id number], Partial fill upon patient request if the prescription is for a schedule II opioid drug., 160, cm, 10/30/20 8:2... Start Date: 11/05/20 Status: Ordered meloxicam 15 mg oral tablet See Instructions, PRN Pain , Moderate, 0.5 to1 tab PO daily with food, # 30 capsule, 1 Refills, Maintenance, 12/04/20 11:27:00 EDT, Tablet, [facility]/pharmacy #[id number], Partial fill upon patient request [...] Refills, Maintenance, 11/27/20 17:20:00 EDT, [id number], 160, cm, 10/30/20 8:28:00 EDT, Height, 105.5, kg, 10/30/20 8:28:00 EDT, Dry Weight Start Date: 11/27/20 Status: Ordered ProAir HFA 90 mcg/inh inhalation aerosol 2 puffs, Inhalation, Every 4 hours, PRN as needed for wheezing, # 8.5 Gm, 0 Refills, Maintenance, 11/16/20 8:39:00 EDT, Aerosol, [facility]/pharmacy #[id number], Partial fill upon patient request [...] 1 Refills, Maintenance, 10/30/20 8:45:00 EDT, Tablet, [facility]/pharmacy #[id number], Partial fill upon patient reques... Start Date: 10/30/20 Status: Ordered traZODone 150 mg oral tablet 1 tablet = 150 mg, By Mouth, Daily at bedtime, dose increase, # 90 tablet, 1 Refills, Maintenance, 11/03/20 13:28:00 EDT, Tablet, [facility]/pharmacy #[id number], Partial fill upon patient request [...]
--- OUTSIDE RECORDS SUMMARY | 2022-12-30 08:22 | XMS_ITS | Continuity of Care Document ---
Author Name Unknown Organization [facility] Address [address] [place] [address]- Care Team Providers Care Diamond Sorter Name Role Phone Candis CARDENAS, Kaiden Villalta Primary Care Physician [id number] Date(s): 09/21/21 - 10/21/21 [facility] [address] [place], [place] [address] Allergies, Adverse Reactions, Alerts Substance Reaction [...] 8.5 Gm,0 Refills, Maintenance, 09/28/21 16:57:00 T, [facility] #[id number], 2 puffs Inhalation Every 4 hours,PRN: NEEDED FOR WHEEZING/cough/shortness... Start Date: 09/28/21 Status: Ordered albuterol 0.083% inhalation solution 3 mL = 2.5 mg, Inhalation, Every 4 hours, PRN for wheezing/cough/shortness of breath, # 25 each, 0 Refills, Maintenance, 10/14/21 22:10:00 EDT, Solution, [facility] #[id number], Partial fill upon patient request if the prescription is for a sched... Start Date: 10/14/21 Status: Ordered benzonatate 100 mg oral capsule 2 capsule, By Mouth, 3 times a day, PRN NEEDED FOR COUGH, # 30 capsule, 1 Refills, Physician Stop 03/19/22 17:38:00 EST, 02/19/22 16:55:00 EDT, [facility]/pharmacy #[id number], 160, cm, 12/04/20 10:52:00 EDT, Height, 104.6, kg, 12/04/20 10:52:00 EDT, Dry Weight Start Date: 02/19/22 Stop Date: 03/19/22 Status: Ordered benzonatate 100 mg oral capsule 2 capsule, By Mouth, 3 times a day, PRN NEEDED FOR COUGH, # 30 capsule, 1 Refills, Maintenance, 09/29/21 15:56:00 EDT, [facility] #[id number], 153, cm, 08/10/21 11:19:00 EDT, Height, 105, [...] 0 Refills, Maintenance, 11/18/20 21:02:00 EDT, Tablet, [facility]/pharmacy #[id number], Partial fill upon patient... Start Date: 11/18/20 Status: Ordered diclofenac 1% topical gel = 1 Gm, Topically, 4 times a day, FOR PAIN., # 100 Gm, 1 Refills, [id number], 30, APPLY 1 GM TOPICALLY 4 TIMES A DAY FOR PAIN, 153, cm, 06/07/21 11:07:00 EST, Height, 105, kg, 05/31/21 15:15:00 EST, Dry Weight Start Date: 08/05/21 Status: Ordered Dilaudid 2 mg oral tablet 1 tablet = 2 mg, By Mouth, 2 times a day, PRN Pain , Severe, checked masspat, # 28 tablet, 0 Refills, Maintenance, 10/08/21 13:52:00 EDT, Tablet, [facility] #[id number], Partial fill upon patient request if the prescription is for a schedule II o... Start Date: 10/08/21 Status: Ordered Famotidine 0 Refills, Maintenance, 04/07/19 16:11:00 EST Start Date: 04/07/19 Status: Ordered fluconazole 150 mg oral tablet 1 tablet = 150 mg, By Mouth, Once, # 1 tablet, 0 Refills, Soft Stop, 09/21/21 11:15:00 EDT, Tablet,[facility] #[id number], Partial fill upon patient request if the prescription is for a schedule II opioid drug., 153, cm, 08/10/21 11:19:00 EDT, H... Start Date: 09/21/21 Status: Ordered gabapentin 800 mg oral tablet See Instructions, TAKE 1 TABLET BY MOUTH FOUR TIMES DAILY, # 360 tablet, 0 Refills, [facility] #[id number], 153, cm, 10/08/21 13:23:00 EDT, Height, 113.9, [...] capsule, 1 Refills, Maintenance, 09/28/21 16:58:00 EDT, [facility] #[id number], 153, cm, 08/10/21 11:19:00 EDT, Height, 105, [...] tablet, 1 Refills, Maintenance, 07/30/21 12:25:00 EDT, [facility] #[id number], Partial fill upon patient request if the prescription is for a schedule II opioid drug... Start Date: 07/30/21 Status: Ordered lidocaine 2% topical gel with applicator 5 mL = 0.1 Gm, Topically, 2 times a day, PRN Pain , Moderate, # 60 mL, 2 Refills, Soft Stop, 09/24/21 16:43:00 EDT, Gel, [facility] #[id number], Partial fill upon patient request if the [...] 90 capsule, 0 Refills, 09/27/21 14:31:00 EDT, [facility] #[id number], 153, cm, 08/10/21 11:19:00 EDT, Height, 105, kg, 05/31/21 15:15:00 EST, Dry Weight Start Date: 09/27/21 Status: Ordered ondansetron 4 mg oral tablet 1 tablet = 4 mg, By Mouth, Every 8 hours, PRN Nausea & Vomiting, # 30 tablet, 1 Refills, Maintenance, 09/28/21 16:56:00 EDT, [facility] #[id number], 153, cm, 08/10/21 11:19:00 EDT, Height, 105, kg, 05/31/21 15:15:00 EST, Dry Weight Start Date: 09/28/21 Status: Ordered oxybutynin 5 mg oral tablet 1 tablet, By Mouth, 3 times a day, # 270 tablet, 1 Refills, [facility] [id number], 153, cm, 08/10/21 11:19:00 EDT, Height, 105, [...] 1 Refills, Maintenance, 07/30/21 12:22:00 EDT, Tablet, [facility] #[id number], Partial fill upon patient request if the [...]
--- OUTSIDE RECORDS SUMMARY | 2022-12-30 08:22 | XMS_ITS | Continuity of Care Document ---
Author Name Unknown Organization [facility] Address [address] [place] [address]- Care Team Providers Care Analytical Engineer Name Role Phone Kaiden Chirinos MD Primary Care Physician [phone] Encounter [facility] Date(s): 09/28/21 - 10/28/21 [facility] [address] [place], [place] [address] Allergies, Adverse Reactions, Alerts [...] 8.5 Gm,0 Refills, Maintenance, 09/28/21 16:57:00 EDT, [email or web address] #[id number], 2 puffs Inhalation Every 4 hours,PRN: NEEDED FOR WHEEZING/cough/shortness... Start Date: 09/28/21 Status: Ordered albuterol 0.083% inhalation solution 3 mL = 2.5 mg, Inhalation, Every 4 hours, PRN for wheezing/cough/shortness of breath, # 25 each, 0 Refills, Maintenance, 10/14/21 22:10:00 EDT, Solution, [email or web address] #[id number], Partial fill upon patient request if the [...] capsule, 1 Refills, Maintenance, 09/29/21 15:56:00 EDT, [email or web address] #[id number], 153, cm, 08/10/21 11:19:00 EDT, Height, 105, kg,05/31/21 15:15:00 EST, Dry Weight Start Date: 09/29/21 Status: Ordered budesonide 1 mg/2 mL inhalation suspension 2 mL = 1 mg, Neb, 2 times a day, rinse mouth out after use, # 120 mL, 1 Refills, Maintenance, 10/25/21 18:30:00 EDT, Suspension, [facility] #[id number], Partial fill upon patient request if the [...] # 100 Gm, 1 Refills, [facility], 30, APPLY 1 GM TOPICALLY 4 TIMES A DAY FOR PAIN, 153, cm, 06/07/21 11:07:00 EST, Height, 105, kg, 05/31/21 15:15:00 EST, Dry Weight Start Date: 08/05/21 Status: Ordered Dilaudid 2 mg oral tablet 1 tablet = 2 mg, By Mouth, 2 times a day, PRN Pain , Severe, checked masspat, # 28 tablet, 0 Refills, Maintenance, 10/25/21 21:55:00 EDT, Tablet, [email or web address] #[id number], Partial fill upon patient request if the prescription is for a schedule II o... Start Date: 10/25/21 Status: Ordered Famotidine 0 Refills, Maintenance, 04/07/19 16:11:00 EST Start Date: 04/07/19 Status: Ordered fluconazole 150 mg oral tablet 1 tablet = 150 mg, By Mouth, Once, # 1 tablet, 0 Refills, Soft Stop, 09/21/21 11:15:00 EDT, Tablet,[email or web address] #[id number], Partial fill upon patient request if the prescription is for a schedule II opioid drug., 153, cm, 08/10/21 11:19:00 EDT, H... Start Date: 09/21/21 Status: Ordered gabapentin 800 mg oral tablet See Instructions, TAKE 1 TABLET BY MOUTH FOUR TIMES DAILY, # 360 tablet, 0 Refills, [email or web address] #[id number], 153, cm, 10/08/21 13:23:00 EDT, Height, 113.9, [...] capsule, 1 Refills, Maintenance, 09/28/21 16:58:00 EDT, [email or web address] #[id number], 153, cm, 08/10/21 11:19:00 EDT, Height, 105, [...] 1 Refills, Maintenance, 07/30/21 12:25:00 EDT, Tablet, [facility] #[id number], Partial fill upon patient request if the prescription is for a schedule II opioid drug... Start Date: 07/30/21 Status: Ordered lidocaine 2% topical gel with applicator 5 mL = 0.1 Gm, Topically, 2 times a day, PRN Pain , Moderate, # 60 mL, 2 Refills, Soft Stop, 09/24/21 16:43:00 EDT, Gel, [facility] #[id number], Partial fill upon patient request if the [...] 10/30/21 18:35:00 EDT, 10/25/21 18:35:00 EDT, Capsule, [email or web address] #[id number], Partial fill upon patient request if the prescription is for a sched... Start Date: 10/25/21 Stop Date: 10/30/21 Status: Ordered omeprazole 20 mg oral enteric coated capsule 1 capsule, By Mouth, Daily, # 90 capsule, 0 Refills, 09/27/21 14:31:00 EDT, [facility] #[id number], 153, cm, 08/10/21 11:19:00 EDT, Height, 105, kg, 05/31/21 15:15:00 EST, Dry Weight Start Date: 09/27/21 Status: Ordered ondansetron 4 mg oral tablet 1 tablet = 4 mg, By Mouth, Every 8 hours, PRN Nausea & Vomiting, # 30 tablet, 1 Refills, Maintenance, 09/28/21 16:56:00 EDT, [email or web address] #[id number], 153, cm, 08/10/21 11:19:00 EDT, Height, 105, kg, 05/31/21 15:15:00 EST, Dry Weight Start Date: 09/28/21 Status: Ordered oxybutynin 5 mg oral tablet 1 tablet, By Mouth, 3 times a day, # 270 tablet, 1 Refills, [facility] 00515, 153, cm, 08/10/21 11:19:00 EDT, Height, 105, [...] 1 Refills, Maintenance, 07/30/21 12:22:00 EDT, Tablet, [email or web address] #[id number], Partial fill upon patient request if the [...]
--- OUTSIDE RECORDS SUMMARY | 2022-12-30 08:22 | XMS_ITS | Continuity of Care Document ---
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 Start Date: 12/22/21 Status: Ordered albuterol 0.083% inhalation solution 3 mL = 2.5 mg, Inhalation, Every 4 hours, PRN for wheezing/cough/shortness of breath, # 25 each, 0 Refills, Maintenance, 10/14/21 22:10:00 EDT, Solution, [facility] #[id number], Partial fill upon patient request if the prescription is for a sched... Start Date: 10/14/21 Status: Ordered [place] Saline Mist 0.65% nasal spray 2 sprays, Nares, Both, 4 times a day, # 1 each, 0 Refills, Maintenance, 02/04/22 13:32:00 EDT, [facility] #[id number], Partial fill upon patient request if the [...] tablet, 0 Refills, Maintenance, 12/27/21 13:43:00 EDT, [facility] #[id number], 153, cm, 10/08/21 13:23:00 EDT, Height, 113.9, [...] # 100 Gm, 1 Refills, [facility], 30, APPLY 1 GM TOPICALLY 4 TIMES A DAY FOR PAIN, 153, cm, 06/07/21 11:07:00 EST, Height, 105, kg, 05/31/21 15:15:00 EST, Dry Weight Start Date: 08/05/21 Status: Ordered Dilaudid 2 mg oral tablet 1 tablet = 2 mg, By Mouth, 2 times a day, PRN Pain , Severe, checked masspat, # 56 tablet, 0 Refills, Maintenance, 04/07/22 21:32:00 EST, Tablet, [facility] #[id number], Partial fill upon patient request if the prescription is for a schedule II o... Start Date: 04/07/22 Status: Ordered doxycycline monohydrate 100 mg oral capsule 1 capsule = 100 mg, By Mouth, 2 times a day, for 10 days, take with food, # 20 capsule, 0 Refills, Acute 05/05/22 16:17:00 EST, 04/25/22 16:17:00 EST, Capsule, [facility] #[id number], Partial fill upon patient request if the prescription is for a... Start Date: 04/25/22 Stop Date: 05/05/22 Status: Ordered Estrace Vaginal Cream 0.1 mg/g = 2 Gm, Vaginally, Daily at bedtime, 2g PV daily at bedtime x 2 weeks, then 1g PV 1-3x per week, # 42.5 Gm, 5 Refills, Maintenance, 11/09/21 11:17:00 EDT, [facility] #[id number], Partial fill upon patient request if the prescription is for a sche... Start Date: 11/09/21 Status: Ordered Estradiol Patch 0.0375 mg/24 hours twice weekly transdermal film, extended release See Instructions, APPLY 1 PATCH TOPICALLY TWICE WEEKLY DIRECTED, # 8 patch, 6 Refills, Maintenance, 03/23/22 16:10:00 EST, [facility] #[id number], 28, APPLY 1 PATCH TOPICALLY TWICE WEEKLY DIRECTED, 153, cm, 01/04/22 13:15:00 EDT, Height, 11... Start Date: 03/23/22 Status: Ordered Flonase 50 mcg/inh nasal spray 1 sprays, Nares, Both, 2 times a day, # 16 Gm, 0 Refills, Maintenance, 04/19/22 14:04:00 EST, [place], [facility] #[id number], Partial fill upon patient request if the prescription is for a schedule II opioid drug., 1 sprays Nares, Both 2 times a d... Start Date: 04/19/22 Status: Ordered fluconazole 150 mg oral tablet 1 tablet = 150 mg, By Mouth, Once, PRN vaginal yeast infection, # 1 tablet, 0 Refills, Soft Stop, 03/15/22 10:42:00 EST, Tablet, [facility] #[id number], Partial fill upon patient request if the prescription is for a schedule II opioid drug., 153,... Start Date: 03/15/22 Status: Ordered gabapentin 800 mg oral tablet 1 tablet, By Mouth, 4 times a day, # 360 tablet, 1 Refills, Maintenance, 04/19/22 12:59:00 EST, [facility] #[id number], 153, cm, 01/04/22 13:15:00 EDT, Height, 113.9, [...] capsule, 1 Refills, Maintenance, 12/08/21 10:10:00 EDT, [facility] #[id number], 153, cm, 10/08/21 13:23:00 EDT, Height, 113.9,kg, [...] 1 Refills, Maintenance, 04/19/22 12:01:00 EST, Tablet, [facility] #[id number], Partial fill upon patient request if the prescription is for a schedule II opioid drug., 153, cm... Start Date: 04/19/22 Status: Ordered lidocaine 4% topical cream 1 application, Topically, 3 times a day, PRN pain of forearms, # 30 Gm, 1 Refills, Acute 06/23/22 16:24:00 EST, 04/25/22 16:23:00 EST, Cream, [facility] #[id number], Partial fill upon patient request if the prescription is for a schedule II opioi... Start Date: 04/25/22 Stop Date: 06/23/22 Status: Ordered meloxicam 15 mg oral tablet 1/2 TO 1 TABLET, By Mouth, Daily, PRN NEEDED FOR MODERATE PAIN, # 30 tablet, 5 Refills, Maintenance, 01/10/22 20:40:00 EDT, [facility] #[id number], 153, cm, 01/04/22 13:15:00 EDT, Height, 113.9, [...] capsule, 1 Refills, Maintenance, 04/19/22 12:41:00 EST, [facility] #[id number], 153, cm, 01/04/22 13:15:00 EDT, Height, 113.9, kg, 10/08/21 13:23:00 EDT, Dry Weight Start Date: 04/19/22 Status: Ordered ondansetron 4 mg oral tablet 1 tablet, By Mouth, Every 8 hours, PRN NEEDED FOR NAUSEA OR VOMITING, # 30 tablet, 1 Refills, Maintenance, 04/14/22 21:15:00 [id number], 153, cm, 01/04/22 13:15:00 EDT, Height, 113.9, kg, 10/08/21 13:23:00 EDT, Dry Weight Start Date: 04/14/22 Status: Ordered oxybutynin 5 mg oral tablet 1 tablet, By Mouth, 3 times a day, # 270 tablet, 1 Refills, 01/10/22 10:29:00 EDT, [facility] #[id number], 153, cm, 01/04/22 13:15:00 EDT, Height, 113.9, [...] 04/14/22 21:16:00 EST, Route to Pharmacy Electronically, [facility] #[id number], Partial fill upon patient request if the... [...] Physician Member Role: PCP Address: Address: [address] [place] [address] Adult & Pediatric Medicine [place], [place] [address] Care Team Related Persons Name: RODOLFO SHEIKH Address: home [address] [address] Name: CHIARA TEE Address: home [address] [place] [id number]
--- OUTSIDE RECORDS SUMMARY | 2022-12-30 08:22 | XMS_ITS | Continuity of Care Document ---
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 Date(s): 06/14/22 - 07/14/22 [facility] [address] [place] [address] Drive, [address] [place] [address]- Allergies, Adverse Reactions, Alerts Substance Reaction Severity [...] 8.5 Gm,0 Refills, Maintenance, 12/22/21 10:40:00 EDT, [facility] #[id number], 2 puffs Inhalation Every 4 hours,PRN: NEEDED FOR WHEEZING/cough/shortness... Start Date: 12/22/21 Status: Ordered albuterol 0.083% inhalation solution 3 mL = 2.5 mg, Inhalation, Every 4 hours, PRN for wheezing/cough/shortness of breath, # 25 each, 0 Refills, Maintenance, 06/29/22 13:08:00 EDT, Solution, [facility] #[id number], Partial fill upon patient request if the prescription is for a sched... Start Date: 06/29/22 Status: Ordered [place] Saline Mist 0.65% nasal spray 2 sprays, Nares, Both, 4 times a day, # 1 each, 0 Refills, Maintenance, 02/04/22 13:32:00 EDT, [facility] #[id number], Partial fill upon patient request if the [...] tablet, 0 Refills, Maintenance, 12/27/21 13:43:00 EDT, [facility] #[id number], 153, cm, 10/08/21 13:23:00 EDT, Height, 113.9, kg, 10/08/21 13:23:00EDT, Dry Weight Start Date: 12/27/21 Status: Ordered chlorhexidine 2% topical liquid See Instructions, 1 application to bilateral forearms twice weekly, # 120 mL, 3 Refills, Soft Stop,06/17/22 11:06:00 EST, Liquid, [facility] #[id number], Partial fill upon patient request if the prescription is for a schedule II opioid drug., 1... Start Date: 06/17/22 Status: Ordered chlorhexidine 4% topical soap See Instructions, apply topically twice weekly to skin on forearms, # 120 mL, 2 Refills, Soft Stop,06/17/22 16:03:00 EST, [facility] #[id number], Partial fill upon patient request if the prescription is for a schedule II opioid drug., apply topi... Start Date: 06/17/22 Status: Ordered clonazePAM 0.5 mg oral tablet 1 tablet = 0.5 mg, By Mouth, 4 times a day, PRN Anxiety, Patient on controlled substance contract. Please do NOT fill until 09/23/2020, # 112 tablet, 0 Refills, Maintenance, 11/18/20 21:02:00 EDT, Tablet, [facility]/pharmacy #[id number], Partial fill upon patient... Start Date: 11/18/20 Status: Ordered diclofenac 1% topical gel = 1 Gm, Topically, 4 times a day, FOR PAIN., # 100 Gm, 1 Refills, [id number], 30, APPLY 1 GM TOPICALLY 4 TIMES A DAY FOR PAIN, 153, cm, 06/07/21 11:07:00 EST, Height, 105, kg, 05/31/21 15:15:00 EST, Dry Weight Start Date: 08/05/21 Status: Ordered Dilaudid 2 mg oral tablet 1 tablet = 2 mg, By Mouth, 2 times a day, PRN Pain , Severe, checked masspat, # 56 tablet, 0 Refills, Maintenance, 06/27/22 21:04:00 EDT, Tablet, [facility] #[id number], Partial fill upon patient request if the prescription is for a schedule II o... Start Date: 06/27/22 Status: Ordered Estrace Vaginal Cream 0.1 mg/g = 2 Gm, Vaginally, Daily at bedtime, 2g PV daily at bedtime x 2 weeks, then 1g PV 1-3x per week, # 42.5 Gm, 5 Refills, Maintenance, 11/09/21 11:17:00 EDT, [facility] #[id number], Partial fill upon patient request if the prescription is for a sche... Start Date: 11/09/21 Status: Ordered Estradiol Patch 0.0375 mg/24 hours twice weekly transdermal film, extended release See Instructions, APPLY 1 PATCH TOPICALLY TWICE WEEKLY DIRECTED, # 8 patch, 6 Refills, Maintenance, 03/23/22 16:10:00 EST, [facility] #[id number], 28, APPLY 1 PATCH TOPICALLY TWICE WEEKLY DIRECTED, 153, cm, 01/04/22 13:15:00 EDT, Height, 11... Start Date: 03/23/22 Status: Ordered fluconazole 150 mg oral tablet 1 tablet = 150 mg, By Mouth, Once, PRN vaginal yeast infection, # 1 tablet, 0 Refills, Soft Stop, 03/15/22 10:42:00 EST, Tablet, [facility] #[id number], Partial fill upon patient request if the prescription is for a schedule II opioid drug., 153,... Start Date: 03/15/22 Status: Ordered fluticasone 50 mcg/inh nasal spray See Instructions, SHAKE LIQUID AND USE 1 SPRAY IN EACH NOSTRIL TWICE DAILY, # 16 Gm, 1 Refills, Maintenance, 05/18/22 13:57:00 EST, [facility] #[id number], 30, SHAKE LIQUID AND USE 1 SPRAY IN EACH NOSTRIL TWICE DAILY, 153, cm, 04/25/22 16:23:00 E... Start Date: 05/18/22 Status: Ordered gabapentin 800 mg oral tablet 1 tablet, By Mouth, 4 times a day, # 360 tablet, 1 Refills, Maintenance, 04/19/22 12:59:00 EST, [facility] #[id number], 153, cm, 01/04/22 13:15:00 EDT, Height, 113.9, [...] capsule, 1 Refills, Maintenance, 05/20/22 12:57:00 EST, [facility] #[id number], 153, cm, 04/25/22 16:23:00 EST, Height, 109, [...] 1 Refills, Maintenance, 04/28/22 13:51:00 EST, Tablet, [facility] #[id number], Partial fill upon patient request if the prescription is for a schedule II opioid drug., 153, cm... Start Date: 04/28/22 Status: Ordered lidocaine 4% topical cream 1 application, Topically, 3 times a day, PRN Pain , Mild, # 30 Gm, 1 Refills, Maintenance, 06/24/2315:24:00 EST, Cream, [facility] #[id number], Partial fill upon patient request if the prescription is for a schedule II opioid drug., 1 applicatio... Start Date: 06/23/22 Status: Ordered meloxicam 15 mg oral tablet 1/2 TO 1 TABLET, By Mouth, Daily, PRN NEEDED FOR MODERATE PAIN, # 30 tablet, 5 Refills, Maintenance, 01/10/22 20:40:00 EDT, [facility] #[id number], 153, cm, 01/04/22 13:15:00 EDT, Height, 113.9, [...] capsule, 1 Refills, Maintenance, 04/19/22 12:41:00 EST, [facility] #[id number], 153, cm, 01/04/22 13:15:00 EDT, Height, 113.9, kg, 10/08/21 13:23:00 EDT, Dry Weight Start Date: 04/19/22 Status: Ordered ondansetron 4 mg oral tablet 1 tablet, By Mouth, Every 8 hours, PRN NEEDED FOR NAUSEA OR VOMITING, # 30 tablet, 1 Refills, Maintenance, 06/14/22 10:29:00 EST, [facility] #[id number], 153, cm, 06/08/22 9:37:00 EST, Height, 109, kg, 04/25/22 15:54:00 EST, Dry Weight Start Date: 06/14/22 Status: Ordered oxybutynin 5 mg oral tablet 1 tablet, By Mouth, 3 times a day, # 270 tablet, 0 Refills, Maintenance, 07/05/22 8:13:00 EDT, [facility] #[id number], 153, cm, 06/17/22 10:53:00 EST, Height, 109, [...] 07/01/22 14:21:00 EDT, Route to Pharmacy Electronically, [facility] #[id number], Partial fill upon patient request if the... Start Date: 07/01/22 Status: Ordered triamcinolone 0.1% topical cream 1 application, Topically, 3 times a day, PRN arm rash, # 30 Gm, 1 Refills, Acute 06/08/23 9:53:00 EST, 06/08/22 9:53:00 EST, Cream, [facility] #[id number], Partial fill upon patient request if the [...] Physician Member Role: PCP Address: Address: [address] [place] [address] Adult [facility] Pediatric [place] [address]- Care Team Related Persons Name: AGUILAR RODOLFO Address: home [address] [facility] [address] [place] [id number] Name: CHIARA TEE Address: home [address] [place] [address] [address] [place] [address]
--- OUTSIDE RECORDS SUMMARY | 2022-12-30 08:22 | XMS_ITS | Continuity of Care Document ---
Author Name Unknown Organization [facility] Address [address] [place] [address]- Care Team Providers Care Receiving Clerk Name Role Phone Kaiden Chirinos MD Primary Care Physician Encounter [facility] Date(s): 06/17/22 - 06/24/22 [facility] [address] [place] [place] [address] Encounter Diagnosis Cellulitis of arm(Discharge Diagnosis) - 06/17/22 Cough(Discharge Diagnosis) - 06/17/22 Attending Physician: Kaiden Chirinos MD Allergies, Adverse [...] 8.5 Gm,0 Refills, Maintenance, 12/22/21 10:40:00 EDT, [facility] #[id number], 2 puffs Inhalation Every 4 hours,PRN: NEEDED FOR WHEEZING/cough/shortness... Start Date: 12/22/21 Status: Ordered albuterol 0.083% inhalation solution 3 mL = 2.5 mg, Inhalation, Every 4 hours, PRN for wheezing/cough/shortness of breath, # 25 each, 0 Refills, Maintenance, 10/14/21 22:10:00 EDT, Solution, [facility] #[id number], Partial fill upon patient request if the prescription is for a sched... Start Date: 10/14/21 Status: Ordered [place] Saline Mist 0.65% nasal spray 2 sprays, Nares, Both, 4 times a day, # 1 each, 0 Refills, Maintenance, 02/04/22 13:32:00 EDT, [facility] #[id number], Partial fill upon patient request if the [...] tablet, 0 Refills, Maintenance, 12/27/21 13:43:00 EDT, [facility] #[id number], 153, cm, 10/08/21 13:23:00 EDT, Height, 113.9, kg, 10/08/21 13:23:00EDT, Dry Weight Start Date: 12/27/21 Status: Ordered chlorhexidine 2% topical liquid See Instructions, 1 application to bilateral forearms twice weekly, # 120 mL, 3 Refills, Soft Stop,06/17/22 11:06:00 EST, Liquid, [facility] #[id number], Partial fill upon patient request if the prescription is for a schedule II opioid drug., 1... Start Date: 06/17/22 Status: Ordered chlorhexidine 4% topical soap See Instructions, apply topically twice weekly to skin on forearms, # 120 mL, 2 Refills, Soft Stop,06/17/22 16:03:00 EST, [facility] #[id number], Partial fill upon patient request if the prescription is for a schedule II opioid drug., apply topi... Start Date: 06/17/22 Status: Ordered clonazePAM 0.5 mg oral tablet 1 tablet = 0.5 mg, By Mouth, 4 times a day, PRN Anxiety, Patient on controlled substance contract. Please do NOT fill until 09/23/2020, # 112 tablet, 0 Refills, Maintenance, 11/18/20 21:02:00 EDT, Tablet, [facility]/pharmacy #[id number], Partial fill upon patient... Start Date: 11/18/20 Status: Ordered diclofenac 1% topical gel = 1 Gm, Topically, 4 times a day, FOR PAIN., # 100 Gm, 1 Refills, [id number], 30, APPLY 1 GM TOPICALLY 4 TIMES A DAY FOR PAIN, 153, cm, 06/07/21 11:07:00 EST, Height, 105, kg, 05/31/21 15:15:00 EST, Dry Weight Start Date: 08/05/21 Status: Ordered Dilaudid 2 mg oral tablet 1 tablet = 2 mg, By Mouth, 2 times a day, PRN Pain , Severe, checked masspat, # 56 tablet, 0 Refills, Maintenance, 05/31/22 15:38:00 EST, Tablet, [facility] #[id number], Partial fill upon patient request if the prescription is for a schedule II o... Start Date: 05/31/22 Status: Ordered Estrace Vaginal Cream 0.1 mg/g = 2 Gm, Vaginally, Daily at bedtime, 2g PV daily at bedtime x 2 weeks, then 1g PV 1-3x per week, # 42.5 Gm, 5 Refills, Maintenance, 11/09/21 11:17:00 EDT, [facility] #[id number], Partial fill upon patient request if the prescription is for a sche... Start Date: 11/09/21 Status: Ordered Estradiol Patch 0.0375 mg/24 hours twice weekly transdermal film, extended release See Instructions, APPLY 1 PATCH TOPICALLY TWICE WEEKLY DIRECTED, # 8 patch, 6 Refills, Maintenance, 03/23/22 16:10:00 EST, [facility] #[id number], 28, APPLY 1 PATCH TOPICALLY TWICE WEEKLY DIRECTED, 153, cm, 01/04/22 13:15:00 EDT, Height, 11... Start Date: 03/23/22 Status: Ordered fluconazole 150 mg oral tablet 1 tablet = 150 mg, By Mouth, Once, PRN vaginal yeast infection, # 1 tablet, 0 Refills, Soft Stop, 03/15/22 10:42:00 EST, Tablet, [facility] #[id number], Partial fill upon patient request if the prescription is for a schedule II opioid drug., 153,... Start Date: 03/15/22 Status: Ordered fluticasone 50 mcg/inh nasal spray See Instructions, SHAKE LIQUID AND USE 1 SPRAY IN EACH NOSTRIL TWICE DAILY, # 16 Gm, 1 Refills, Maintenance, 05/18/22 13:57:00 EST, [facility] #[id number], 30, SHAKE LIQUID AND USE 1 SPRAY IN EACH NOSTRIL TWICE DAILY, 153, cm, 04/25/22 16:23:00 E... Start Date: 05/18/22 Status: Ordered gabapentin 800 mg oral tablet 1 tablet, By Mouth, 4 times a day, # 360 tablet, 1 Refills, Maintenance, 04/19/22 12:59:00 EST, [facility] #[id number], 153, cm, 01/04/22 13:15:00 EDT, Height, 113.9, [...] capsule, 1 Refills, Maintenance, 05/20/22 12:57:00 EST, [facility] #[id number], 153, cm, 04/25/22 16:23:00 EST, Height, 109, [...] 1 Refills, Maintenance, 04/28/22 13:51:00 EST, Tablet, [facility] #[id number], Partial fill upon patient request if the prescription is for a schedule II opioid drug., 153, cm... Start Date: 04/28/22 Status: Ordered lidocaine 4% topical cream 1 application, Topically, 3 times a day, PRN Pain , Mild, # 30 Gm, 1 Refills, Maintenance, 06/24/2315:24:00 EST, Cream, [facility] #[id number], Partial fill upon patient request if the prescription is for a schedule II opioid drug., 1 applicatio... Start Date: 06/23/22 Status: Ordered meloxicam 15 mg oral tablet 1/2 TO 1 TABLET, By Mouth, Daily, PRN NEEDED FOR MODERATE PAIN, # 30 tablet, 5 Refills, Maintenance, 01/10/22 20:40:00 EDT, [facility] #[id number], 153, cm, 01/04/22 13:15:00 EDT, Height, 113.9, [...] capsule, 1 Refills, Maintenance, 04/19/22 12:41:00 EST, [facility] #[id number], 153, cm, 01/04/22 13:15:00 EDT, Height, 113.9, kg, 10/08/21 13:23:00 EDT, Dry Weight Start Date: 04/19/22 Status: Ordered ondansetron 4 mg oral tablet 1 tablet, By Mouth, Every 8 hours, PRN NEEDED FOR NAUSEA OR VOMITING, # 30 tablet, 1 Refills, Maintenance, 06/14/22 10:29:00 EST, [facility] #[id number], 153, cm, 06/08/22 9:37:00 EST, Height, 109, kg, 04/25/22 15:54:00 EST, Dry Weight Start Date: 06/14/22 Status: Ordered oxybutynin 5 mg oral tablet 1 tablet, By Mouth, 3 times a day, # 270 tablet, 1 Refills, 01/10/22 10:29:00 EDT, [facility] #[id number], 153, cm, 01/04/22 13:15:00 EDT, Height, 113.9, [...] 06/08/22 15:01:00 EST, Route to Pharmacy Electronically, [facility] #[id number], Partial fill upon patient request if the... Start Date: 06/08/22 Status: Ordered triamcinolone 0.1% topical cream 1 application, Topically, 3 times a day, PRN arm rash, # 30 Gm, 1 Refills, Acute 06/08/23 9:53:00 EST, 06/08/22 9:53:00 EST, Cream, [facility] #[id number], Partial fill upon patient request if the [...] Effective Dates Health Status Clinical Service Informant Cellulitis of arm Discharge Diagnosis 06/17/22 Cough Discharge Diagnosis 06/17/22 Vital Signs Most recent to oldest [Reference Range]: 1 Height 153 cm (06/17/22 10:53 AM) Weight 109 kg (06/17/22 10:53 AM) Oxygen Saturation [94-100 %] 96 % (06/17/22 10:53 AM) Pulse Rate [55-90 bpm] 76 bpm (06/17/22 10:53 AM) Body Mass Index [18.5-24.99 kg/m2] 46.56 kg/m2 *>HHI* (06/17/22 10:53 AM) Blood Pressure [90-138/55-84 mm Hg] 138/ 83mm Hg (06/17/22 10:53 AM) Temperature [96.8-100.4 DegF] 97.1 DegF (06/17/22 10:53 AM) Mode of Delivery (Oxygen) Room air (06/17/22 10:53 AM) Temperature Route Temporal (06/17/22 10:53 AM) Dry Weight 109 kg (06/17/22 10:53 AM) Weight Obtained Via Standing scale (06/17/22 10:53 AM) Social History Social History Type Response Smoking Status Former smoker, quit more than 30 days ago;Never entered on: 11/09/21 Sex Note * Patricia Wallace: PERFORM, SIGN, VERIFY Event Display: Patient Education/Instruction Authored Date: [id number] [facility] Clinical Summary Name JETT TEE Age 56 Years 1965 PCP Candis CARDENAS, Kaiden Villalta PCP Visit Date 06/17/2022 10:43:00 Additional Instructions: Scheduled Appointments?? Future Appointments ?*Rehab??Adult??Aud ?Phone:??--?Fax:??-- ?Appt. Date:??07/19/2022?1:30 PM ?Scheduled Provider:??Speech Pathologist ?[facility] ?[address]??[place],??[place],??[address] ?Phone:??[phone]?Fax:??-- ?Appt. Date:??07/19/2022?1:30 PM ?Scheduled Provider:??[facility] Follow-Up Instructions ?? Diagnosis Medications: Please continue your medications until treatment is completed or stopped by your provider. Discuss any questions related to medications with your provider. New Medications [id number], [address] [place] [phone], [phone] Chlorhexidine Topical (chlorhexidine 2% topical liquid) 1 application to bilateral forearms twice weekly. Refills: 3. Next Dose: Medications to Continue with No Changes [id number], [address] [place], [place] [id number], [phone] Ondansetron (ondansetron 4 mg oral tablet) 1 tab(s) Oral every 8 hours as needed NEEDED FOR NAUSEA OR VOMITING. Refills: 1. Next Dose: These medications were not printed or sent to your pharmacy Albuterol (Albuterol (Eqv-ProAir HFA) 90 mcg/inh inhalation aerosol) 2 puff(s) Inhalation every 4 hours as needed NEEDED FOR WHEEZING/cough/shortness of breath. Refills: 0. Next Dose: Albuterol (albuterol 0.083% inhalation solution) 3 Milliliter Inhalation every 4 hours as needed for wheezing/cough/shortness of breath. Refills: 0. Next Dose: BuPROpion (buPROPion 150 mg/24 hours (XL) oral tablet, extended release) 1 tab(s) Oral every 24 hours. Next Dose: Cephalexin (cephalexin monohydrate 500 mg oral capsule) 1 capsule Oral 4 times a day for 7 Days. take with food. Refills: 0. Next Dose: Cetirizine (cetirizine 10 mg oral tablet) 1 tab(s) Oral Daily as needed allergies. Refills: 0. Next Dose: Clonazepam (clonazePAM 0.5 mg oral tablet) 1 tab(s) Oral 4 times a day as needed Anxiety. Patient on controlled substance contract. Please do NOT fill until 09/23/2020. Refills: 0. Next Dose: Diclofenac Topical (diclofenac 1% topical gel) 1 gram Topically 4 times a day. FOR PAIN.. Refills: 1. Next Dose: Durable Medical Equipment (Hinged knee brace bilateral knees) To be worn while ambulating daily.. Refills: 0. Next Dose: Durable Medical Equipment (Incontenence Pads, Extra Long Day Time) Use for Dx: urinary [id number] Duration of need: x99. Refills: 11. Next Dose: Durable Medical Equipment (Incontenence Pads, Night Time Extra Long Heavy) Use for Dx: urinary incontenence R32 Duration of need x 99. Refills: 11. Next Dose: Durable Medical Equipment (Nebulizer/Compressor) Use to administer albuterol q 4 hours prn cough/wheezing Dx: Covid 19. Refills: 0. Next Dose: Durable Medical Equipment (Rapid Antigen home covid swab) Use to test for Covid.. Refills: 0. Next Dose: Durable Medical Equipment (Right ankle stirrup air cast) To be worn on ambulation. Refills: 0. Next Dose: Estradiol (Estradiol Patch 0.0375 mg/24 hours twice weekly transdermal film, extended release) APPLY 1 PATCH TOPICALLY TWICE WEEKLY DIRECTED. Refills: 6. Next Dose: Estradiol Topical (Estrace Vaginal Cream 0.1 mg/g) 2 gram Vaginally Daily at Bedtime. 2g PV daily at bedtime x 2 weeks, then 1g PV 1-3x per week. Refills: 5. Next Dose: Fluconazole (fluconazole 150 mg oral tablet) 1 tab(s) Oral once as needed vaginal yeast infection. Refills: 0. Next Dose: Fluticasone Nasal (fluticasone 50 mcg/inh nasal spray) SHAKE LIQUID AND USE 1 SPRAY IN EACH NOSTRILTWICE DAILY. Refills: 1. Next Dose: Gabapentin (gabapentin 800 mg oral tablet) 1 tab(s) Oral 4 times a day. Refills: 1. Next Dose: Hydromorphone (Dilaudid 2 mg oral tablet) 1 tab(s) Oral twice a day as needed Pain , Severe. checked masspat. Refills: 0. Next Dose: HydrOXYzine (hydrOXYzine pamoate 50 mg oral capsule) 1 capsule Oral 3 times a day as needed NEEDED FOR ITCHING. Refills: 1. Next Dose: Levothyroxine (levothyroxine 125 mcg (0.125 mg) oral tablet) 1 tab(s) Oral Daily in the morning. dose increase. Refills: 1. Next Dose: Lidocaine Topical (lidocaine 4% topical cream) 1 geena Topically 3 times a day as needed pain of forearms. Refills: 1. Next Dose: Lidocaine Topical (lidocaine 4% topical cream) 1 geena Topically 3 times a day as needed Pain , Mild.Refills: 1. Next Dose: Meloxicam (meloxicam 15 mg oral tablet) 1/2 TO 1 TABLET Oral Daily as needed NEEDED FOR MODERATEPAIN. Refills: 5. Next Dose: Omeprazole (omeprazole 20 mg oral enteric coated capsule) 1 capsule Oral Daily. Refills: 1. Next Dose: Oxybutynin (oxybutynin 5 mg oral tablet) 1 tab(s) Oral 3 times a day. Refills: 1. Next Dose: Sodium Chloride Nasal ([place] Saline Mist 0.65% nasal spray) 2 spray(s) Nares, Both 4 times a day. Refills: 0. Next Dose: Trazodone (traZODone 50 mg oral tablet) 1-2 tablet Oral Daily. one hour prior to bedtime. dose increase. Refills: 2. Next Dose: Triamcinolone Topical (triamcinolone 0.1% topical cream) 1 geena Topically 3 times a day as needed arm rash. Refills: 1. Next Dose: Allergy Info:?? Paxlovid; Percocet 7.5/325; Adhesive Bandage; morphine Medications Given This Visit Future Orders ?No future orders Vital Signs Height 153 cm Weight 109 kg BMI 46.56 kg/m2 Blood Pressure 138 mm Hg/83 mm Hg Temperature 97.1 DegF Pulse Rate 76 bpm Respiratory Rate 02 Sat Mode of Delivery 96 %/Room air You can now view a summary of your hospital visit from the comfort of your home through a free online portal called [employer]. [employer] is a website that allows you to securely view your medical information including discharge summary, medications and follow-up visits. ??You can alsosend a secure electronic message to your doctor???s office to request appointments, renew medications or just ask a question. You can enroll at [email or web address] or register during your next office visit. Disclaimer:?? The information provided is of a general nature and is intended to be used in conjunction with the recommendations and advice of your health care practitioner. ??Every effort has been made to ensure that the information provided is accurate and complete at the time it is provided to you however, as your needs change, or, as new ??information becomes available, different or additional instructions may be required. If you have questions, please consult with your primary care provider or pharmacist, as appropriate. ??This information is not intended to serve as substitution for assessment and evaluation by a qualified health care provider. If you do not have a primary care provider, you may find a [facility] provider by calling [facility] at [phone]. For information about the plan of care including goals and instructions for your diagnosis, please see the patient education orders section of this document. Patient Education Materials?? The content of this educational material or handout may have been modified, supplemented, or adapted from its original content and format to support your individualized medical care. Patient Care team information Care Team Personnel Name: Kaiden Chirinos MD Position: S Primary Care Physician Member Role: PCP Address: Address: [address] [place] [address] Adult [place] [address]- Care Team Related Persons Name: RODOLFO SHEIKH Address: home [address] [facility] [address] [place] [id number] Name: CHIARA TEE Address: home [address] [place] [id number]
--- OUTSIDE RECORDS SUMMARY | 2022-12-30 08:22 | XMS_ITS | Continuity of Care Document ---
Author Name Unknown Organization 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 [address] [place], [place] [address] Allergies, Adverse Reactions, Alerts Substance [...] # 8.5 each, 0 Refills, [id number], 20, INHALE 2 PUFFS BY MOUTH EVERY 4 HOURS NEEDED FOR WHEEZING, 160, cm, 03/30/21 10:47:00 EST, Height, 104.6, kg, 12/04/20 10:52:00 EDT, Dry Weight Start Date: 04/28/21 Status: Ordered amitriptyline 10 mg oral tablet 10 mg, 1, tablet, By Mouth, Daily at bedtime, # 90 tablet, Refills 1, Tot. Refills 1, Maintenance, 12/24/20 16:08:00 EDT, Route to Pharmacy Electronically, [facility]/pharmacy #[id number], Partial fill upon patient request if the prescription is for a schedule II... Start Date: 12/24/20 Status: Ordered baclofen 10 mg oral tablet 10 mg, 1, tablet, By Mouth, 3 times a day, PRN, # 30 tablet, Refills 0, Tot. Refills 0, Maintenance, Spasm, 01/31/19 21:47:23 EDT, Route to Pharmacy Electronically, [id number], [facility]/pharmacy #[id number] Start Date: 01/31/19 Stop Date: [...] 02/19/22 16:55:00 EDT, 02/19/21 16:54:00 EDT, [facility]/pharmacy #[id number], 160, [...] 06/30/22 10:07:00 EDT, 06/30/21 10:06:00 EDT, Tablet, [facility]/pharmacy #[id number], Partial fill upon patient request if the prescription is for a schedule II opioid dr... Start Date: 06/30/21 Stop Date: 06/30/22 Status: Ordered Famotidine 0 Refills, Maintenance, 04/07/19 16:11:00 EST Start Date: 04/07/19 Status: Ordered gabapentin 800 mg oral tablet 1 tablet, By Mouth, 4 times a day, # 360 tablet, 1 Refills, [id number], 160, cm, 03/30/21 10:47:00 EST, Height, 104.6, [...] Refills, Maintenance, 05/14/21 15:23:00 EST, Tablet, [facility]/pharmacy #[id number], Partial fill upon patient request if the prescription is for a schedule II opioid drug., 160, c... Start Date: 05/14/21 Status: Ordered omeprazole 20 mg oral enteric coated capsule 1 capsule, By Mouth, Daily, # 90 capsule, 1 Refills, [id number], 160, cm, 03/30/21 10:47:00 EST, Height, 104.6, kg, 12/04/20 10:52:00 EDT, Dry Weight Start Date: 03/31/21 Status: Ordered ondansetron 4 mg oral tablet See Instructions, TAKE 1 TABLET BY MOUTH EVERY 8 HOURS NEEDED FOR NAUSEA AND VOMITING, # 15 tablet, 1 Refills, Physician Stop 07/12/21 15:23:00 EDT, 05/14/21 15:22:00 EST, [facility]/pharmacy #[id number], 160,cm, 03/30/21 10:47:00 EST, Height, 104.6, kg, 12/04... Start Date: 05/14/21 Stop Date: 07/12/21 Status: Ordered oxybutynin 5 mg oral tablet 1 tablet, By Mouth, 3 times a day, dose increase, # 270 tablet, 1 Refills, Maintenance, 03/19/21 17:40:00 EST, [facility]/pharmacy #[id number], 160, cm, [...]
--- OUTSIDE RECORDS SUMMARY | 2022-12-30 08:22 | XMS_ITS | Continuity of Care Document ---
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 Start Date: 12/22/21 Status: Ordered albuterol 0.083% inhalation solution 3 mL = 2.5 mg, Inhalation, Every 4 hours, PRN for wheezing/cough/shortness of breath, # 25 each, 0 Refills, Maintenance, 03/15/23 13:08:00 EDT, Solution, [facility] #[id number], Partial fill upon patient request if the prescription is for a sched... Start Date: 06/29/22 Status: Ordered [place] Saline Mist 0.65% nasal spray 2 sprays, Nares, Both, 4 times a day, # 1 each, 0 Refills, Maintenance, 02/04/22 13:32:00 EDT, [facility] #[id number], Partial fill upon patient request if the [...] tablet, 0 Refills, Maintenance, 12/27/21 13:43:00 EDT, [facility] #[id number], 153, cm, 10/08/21 13:23:00 EDT, Height, 113.9, kg, 10/08/21 13:23:00EDT, Dry Weight Start Date: 12/27/21 Status: Ordered chlorhexidine 2% topical liquid See Instructions, 1 application to bilateral forearms twice weekly, # 120 mL, 3 Refills, Soft Stop,06/17/22 11:06:00 EST, Liquid, [facility] #[id number], Partial fill upon patient request if the prescription is for a schedule II opioid drug., 1... Start Date: 06/17/22 Status: Ordered chlorhexidine 4% topical soap See Instructions, apply topically twice weekly to skin on forearms, # 120 mL, 2 Refills, Soft Stop,06/17/22 16:03:00 EST, [facility] #[id number], Partial fill upon patient request if the [...] FOR PAIN., # 100 Gm, 1 Refills, [id number], 30, APPLY 1 GM TOPICALLY 4 TIMES A DAY FOR PAIN, 153, cm, 06/07/21 11:07:00 EST, Height, 105, kg, 05/31/21 15:15:00 EST, Dry Weight Start Date: 08/05/21 Status: Ordered Dilaudid 2 mg oral tablet 1 tablet = 2 mg, By Mouth, 2 times a day, PRN Pain , Severe, checked masspat, # 56 tablet, 0 Refills, Maintenance, 06/27/22 21:04:00 EDT, Tablet, [facility] #[id number], Partial fill upon patient request if the prescription is for a schedule II o... Start Date: 06/27/22 Status: Ordered Estrace Vaginal Cream 0.1 mg/g = 2 Gm, Vaginally, Daily at bedtime, 2g PV daily at bedtime x 2 weeks, then 1g PV 1-3x per week, # 42.5 Gm, 5 Refills, Maintenance, 11/09/21 11:17:00 EDT, [facility] #[id number], Partial fill upon patient request if the prescription is for a sche... Start Date: 11/09/21 Status: Ordered Estradiol Patch 0.0375 mg/24 hours twice weekly transdermal film, extended release See Instructions, APPLY 1 PATCH TOPICALLY TWICE WEEKLY DIRECTED, # 8 patch, 6 Refills, Maintenance, 03/23/22 16:10:00 EST, [facility] #[id number], 28, APPLY 1 PATCH TOPICALLY TWICE WEEKLY DIRECTED, 153, cm, 01/04/22 13:15:00 EDT, Height, 11... Start Date: 03/23/22 Status: Ordered fluconazole 150 mg oral tablet 1 tablet = 150 mg, By Mouth, Once, PRN vaginal yeast infection, # 1 tablet, 0 Refills, Soft Stop, 03/15/22 10:42:00 EST, Tablet, [facility] #[id number], Partial fill upon patient request if the prescription is for a schedule II opioid drug., 153,... Start Date: 03/15/22 Status: Ordered fluticasone 50 mcg/inh nasal spray See Instructions, SHAKE LIQUID AND USE 1 SPRAY IN EACH NOSTRIL TWICE DAILY, # 16 Gm, 1 Refills, Maintenance, 05/18/22 13:57:00 EST, [facility] #[id number], 30, SHAKE LIQUID AND USE 1 SPRAY IN EACH NOSTRIL TWICE DAILY, 153, cm, 04/25/22 16:23:00 E... Start Date: 05/18/22 Status: Ordered gabapentin 800 mg oral tablet 1 tablet, By Mouth, 4 times a day, # 360 tablet, 1 Refills, Maintenance, 04/19/22 12:59:00 EST, [facility] #[id number], 153, cm, 01/04/22 13:15:00 EDT, Height, 113.9, [...] capsule, 1 Refills, Maintenance, 05/20/22 12:57:00 EST, [facility] #[id number], 153, cm, 04/25/22 16:23:00 EST, Height, 109, [...] 1 Refills, Maintenance, 04/28/22 13:51:00 EST, Tablet, [facility] #[id number], Partial fill upon patient request if the prescription is for a schedule II opioid drug., 153, cm... Start Date: 04/28/22 Status: Ordered lidocaine 4% topical cream 1 application, Topically, 3 times a day, PRN Pain , Mild, # 30 Gm, 1 Refills, Maintenance, 06/24/2315:24:00 EST, Cream, [facility] #[id number], Partial fill upon patient request if the prescription is for a schedule II opioid drug., 1 applicatio... Start Date: 06/23/22 Status: Ordered meloxicam 15 mg oral tablet 1/2 TO 1 TABLET, By Mouth, Daily, PRN NEEDED FOR MODERATE PAIN, # 30 tablet, 5 Refills, Maintenance, 01/10/22 20:40:00 EDT, [facility] #[id number], 153, cm, 01/04/22 13:15:00 EDT, Height, 113.9, [...] capsule, 1 Refills, Maintenance, 04/19/22 12:41:00 EST, [facility] #[id number], 153, cm, 01/04/22 13:15:00 EDT, Height, 113.9, kg, 10/08/21 13:23:00 EDT, Dry Weight Start Date: 04/19/22 Status: Ordered ondansetron 4 mg oral tablet 1 tablet, By Mouth, Every 8 hours, PRN NEEDED FOR NAUSEA OR VOMITING, # 30 tablet, 1 Refills, Maintenance, 06/14/22 10:29:00 EST, [facility] #[id number], 153, cm, 06/08/22 9:37:00 EST, Height, 109, kg, 04/25/22 15:54:00 EST, Dry Weight Start Date: 06/14/22 Status: Ordered oxybutynin 5 mg oral tablet 1 tablet, By Mouth, 3 times a day, # 270 tablet, 0 Refills, Maintenance, 07/05/22 8:13:00 EDT, [facility] #[id number], 153, cm, 06/17/22 10:53:00 EST, Height, 109, [...] 07/01/22 14:21:00 EDT, Route to Pharmacy Electronically, [facility] #[id number], Partial fill upon patient request if the... Start Date: 07/01/22 Status: Ordered triamcinolone 0.1% topical cream 1 application, Topically, 3 times a day, PRN arm rash, # 30 Gm, 1 Refills, Acute 06/08/23 9:53:00 EST, 06/08/22 9:53:00 EST, Cream, [facility] #[id number], Partial fill upon patient request if the [...] Physician Member Role: PCP Address: Address: [address] [place] [address] Adult [place] [address]- Care Team Related Persons Name: AGUILAR RODOLFO Address: home [address] [facility] [address] [place] [id number] Name: CHIARA ETE Address: home [address] [facility] [address] [place] [address]
--- OUTSIDE RECORDS SUMMARY | 2022-12-30 08:22 | XMS_ITS | Continuity of Care Document ---
Author Name Unknown Organization [facility] Address [address] [place] [address]- Care Team Providers Care Safety Counselor Name Role Phone Kaiden Chirinos MD Primary Care Physician Encounter [facility] [place] Date(s): 02/08/22 - 03/10/22 [facility] [address] [place], [place] [address] Allergies, Adverse Reactions, Alerts Substance [...] 8.5 Gm,0 Refills, Maintenance, 12/22/21 10:40:00 T, [facility] #[id number], 2 puffs Inhalation Every 4 hours,PRN: NEEDED FOR WHEEZING/cough/shortness... Start Date: 12/22/21 Status: Ordered albuterol 0.083% inhalation solution 3 mL = 2.5 mg, Inhalation, Every 4 hours, PRN for wheezing/cough/shortness of breath, # 25 each, 0 Refills, Maintenance, 10/14/21 22:10:00 EDT, Solution, [facility] #[id number], Partial fill upon patient request if the prescription is for a sched... Start Date: 10/14/21 Status: Ordered [place] Saline Mist 0.65% nasal spray 2 sprays, Nares, Both, 4 times a day, # 1 each, 0 Refills, Maintenance, 02/04/22 13:32:00 EDT, [facility] #[id number], Partial fill upon patient request if the [...] tablet, 0 Refills, Maintenance, 12/27/21 13:43:00 EDT, [facility] #[id number], 153, cm, 10/08/21 13:23:00 EDT, Height, 113.9, [...] FOR PAIN., # 100 Gm, 1 Refills, [id number], 30, APPLY 1 GM TOPICALLY 4 TIMES A DAY FOR PAIN, 153, cm, 06/07/21 11:07:00 EST, Height, 105, kg, 05/31/21 15:15:00 EST, Dry Weight Start Date: 08/05/21 Status: Ordered Dilaudid 2 mg oral tablet 1 tablet = 2 mg, By Mouth, 2 times a day, PRN Pain , Severe, checked masspat, # 28 tablet, 0 Refills, Maintenance, 03/04/22 14:11:00 EST, Tablet, [facility] #[id number], Partial fill upon patient request if the prescription is for a schedule II o... Start Date: 03/04/22 Status: Ordered Estrace Vaginal Cream 0.1 mg/g = 2 Gm, Vaginally, Daily at bedtime, 2g PV daily at bedtime x 2 weeks, then 1g PV 1-3x per week, # 42.5 Gm, 5 Refills, Maintenance, 11/09/21 11:17:00 EDT, [facility] #[id number], Partial fill upon patient request if the prescription is for a sche... Start Date: 11/09/21 Status: Ordered Estradiol Patch 0.0375 mg/24 hours twice weekly transdermal film, extended release See Instructions, APPLY 1 PATCH TOPICALLY TWICE WEEKLY DIRECTED, # 8 patch, 0 Refills, Maintenance, 02/26/22 10:23:00 EST, [facility] #[id number], 28, APPLY 1 PATCH TOPICALLY TWICE WEEKLY DIRECTED, 153, cm, 01/04/22 13:15:00 EDT, Height, 11... Start Date: 02/26/22 Status: Ordered fluconazole 150 mg oral tablet 1 tablet = 150 mg, By Mouth, Once, # 1 tablet, 0 Refills, Soft Stop, 02/14/22 14:41:00 EDT, Tablet,[facility] #[id number], Partial fill upon patient request if the prescription is for a schedule II opioid drug., 153, cm, 01/04/22 13:15:00 EDT, H... Start Date: 02/14/22 Status: Ordered gabapentin 800 mg oral tablet See Instructions, TAKE 1 TABLET BY MOUTH FOUR TIMES DAILY, # 360 tablet, 0 Refills, [facility] #[id number], 153, cm, 10/08/21 13:23:00 EDT, Height, 113.9, [...] capsule, 1 Refills, Maintenance, 12/08/21 10:10:00 EDT, [facility] #[id number], 153, cm, 10/08/21 13:23:00 EDT, Height, 113.9,kg, [...] tablet, 0 Refills, Maintenance, 01/20/22 17:46:00 EDT, [facility] #[id number], 153, cm, 01/04/22 13:15:00 ED... Start Date: 01/20/22 Status: Ordered lidocaine 3% topical gel 1 application, Topically, 2 times a day, PRN as needed for pain, to replace 2% topical, # 28.5 Gm, 2 Refills, Acute 03/29/22 14:17:00 EST, 12/28/21 14:17:00 EDT, Gel, [facility] #[id number], Partial fill upon patient request if the prescription i... Start Date: 12/28/21 Stop Date: 03/29/22 Status: Ordered meloxicam 15 mg oral tablet 1/2 TO 1 TABLET, By Mouth, Daily, PRN NEEDED FOR MODERATE PAIN, # 30 tablet, 5 Refills, Maintenance, 01/10/22 20:40:00 EDT, [facility] #[id number], 153, cm, 01/04/22 13:15:00 EDT, Height, 113.9, [...] capsule, 0 Refills, Maintenance, 01/16/22 8:28:00 EDT, [facility] #[id number], 153, cm, 01/04/22 13:15:00 EDT, Height, 113.9, kg, 10/08/21 13:23:00 EDT, Dry Weight Start Date: 01/16/22 Status: Ordered ondansetron 4 mg oral tablet 1 tablet, By Mouth, Every 8 hours, PRN NEEDED FOR NAUSEA OR VOMITING, # 30 tablet, 0 Refills, Maintenance, 03/01/22 11:29:00 EST, [facility] #[id number], 153, cm, 01/04/22 13:15:00 EDT, Height, 113.9, kg, 10/08/21 13:23:00 EDT, Dry Weight Start Date: 03/01/22 Status: Ordered oxybutynin 5 mg oral tablet 1 tablet, By Mouth, 3 times a day, # 270 tablet, 1 Refills, 01/10/22 10:29:00 EDT, [facility] #[id number], 153, cm, 01/04/22 13:15:00 EDT, Height, 113.9, [...] 02/18/22 16:37:00 EDT, Route to Pharmacy Electronically, [facility] #[id number], Partial fill upon patient request if the [...] Team Personnel Name: Kaiden Chirinos MD Position: [facility] Primary Care Physician Member Role: PCP Address: Address: [address] [place] [address] Adult [place] [address]- Care Team Related Persons Name: RODOLFO SHEIKH Address: home [address] [facility] [address] [place] [id number] Name: CHIARA TEE Address: home [address] [place] [address] [place] [id number]
--- OUTSIDE RECORDS SUMMARY | 2022-12-30 08:22 | XMS_ITS | Continuity of Care Document ---
Author Name Unknown Organization [facility] Address [address] [place] [address]- Care Team Providers Care Tour Guide Name Role Phone Candis CARDENAS, Kaiden Villalta Primary Care Physician Encounter [facility] Date(s): 09/06/22 - 10/06/22 [facility] [address] [place], [place] [address] Allergies, Adverse Reactions, Alerts [...] 8.5 Gm,0 Refills, Maintenance, 12/22/21 10:40:00 EDT, [facility] #[id number], 2 puffs Inhalation Every 4 hours,PRN: NEEDED FOR WHEEZING/cough/shortness... Start Date: 12/22/21 Status: Ordered albuterol 0.083% inhalation solution 3 mL = 2.5 mg, Inhalation, Every 4 hours, PRN for wheezing/cough/shortness of breath, # 25 each, 0 Refills, Maintenance, 06/29/22 13:08:00 EDT, Solution, [facility] #[id number], Partial fill upon patient request if the prescription is for a sched... Start Date: 06/29/22 Status: Ordered [place] Saline Mist 0.65% nasal spray 2 sprays, Nares, Both, 4 times a day, # 1 each, 0 Refills, Maintenance, 02/04/22 13:32:00 EDT, [facility] #[id number], Partial fill upon patient request if the [...] tablet, 0 Refills, Maintenance, 12/27/21 13:43:00 EDT, [facility] #[id number], 153, cm, 10/08/21 13:23:00 EDT, Height, 113.9, kg, 10/08/21 13:23:00EDT, Dry Weight Start Date: 12/27/21 Status: Ordered chlorhexidine 2% topical liquid See Instructions, 1 application to bilateral forearms twice weekly, # 120 mL, 3 Refills, Soft Stop,06/17/22 11:06:00 EST, Liquid, [facility] #[id number], Partial fill upon patient request if the prescription is for a schedule II opioid drug., 1... Start Date: 06/17/22 Status: Ordered chlorhexidine 4% topical soap See Instructions, apply topically twice weekly to skin on forearms, # 120 mL, 2 Refills, Soft Stop,06/17/22 16:03:00 EST, [facility] #[id number], Partial fill upon patient request if the prescription is for a schedule II opioid drug., apply topi... Start Date: 06/17/22 Status: Ordered clonazePAM 0.5 mg oral tablet 1 tablet = 0.5 mg, By Mouth, 4 times a day, PRN Anxiety, Patient on controlled substance contract. Please do NOT fill until 09/23/2020, # 112 tablet, 0 Refills, Maintenance, 11/18/20 21:02:00 EDT, Tablet, [facility]/pharmacy #[id number], Partial fill upon patient... Start Date: 11/18/20 Status: Ordered diclofenac 1% topical gel = 1 Gm, Topically, 4 times a day, FOR PAIN., # 100 Gm, 1 Refills, [id number], 30, APPLY 1 GM TOPICALLY 4 TIMES A DAY FOR PAIN, 153, cm, 06/07/21 11:07:00 EST, Height, 105, kg, 05/31/21 15:15:00 EST, Dry Weight Start Date: 08/05/21 Status: Ordered Dilaudid 2 mg oral tablet 1 tablet = 2 mg, By Mouth, 2 times a day, PRN Pain , Severe, checked masspat, # 56 tablet, 0 Refills, Maintenance, 09/28/22 9:53:00 EDT, Tablet, [facility] #[id number], Partial fill upon patientrequest if the prescription is for a schedule II op... Start Date: 09/28/22 Status: Ordered Estrace Vaginal Cream 0.1 mg/g = 2 Gm, Vaginally, Daily at bedtime, 2g PV daily at bedtime x 2 weeks, then 1g PV 1-3x per week, # 42.5 Gm, 5 Refills, Maintenance, 11/09/21 11:17:00 EDT, [facility] #[id number], Partial fill upon patient request if the prescription is for a sche... Start Date: 11/09/21 Status: Ordered Estradiol Patch 0.0375 mg/24 hours twice weekly transdermal film, extended release See Instructions, APPLY 1 PATCH TOPICALLY TWICE WEEKLY DIRECTED, # 8 patch, 2 Refills, Maintenance, 09/22/22 21:55:00 EDT, [facility] #[id number], 28, APPLY 1 PATCH TOPICALLY TWICE WEEKLY DIRECTED, 153, cm, 06/17/22 10:53:00 EST, Height, 10... Start Date: 09/22/22 Status: Ordered fluconazole 150 mg oral tablet 1 tablet = 150 mg, By Mouth, Once, PRN vaginal yeast infection, # 1 tablet, 0 Refills, Soft Stop, 03/15/22 10:42:00 EST, Tablet, [facility] #[id number], Partial fill upon patient request if the prescription is for a schedule II opioid drug., 153,... Start Date: 03/15/22 Status: Ordered fluticasone 50 mcg/inh nasal spray See Instructions, SHAKE LIQUID AND USE 1 SPRAY IN EACH NOSTRIL TWICE DAILY, # 16 Gm, 1 Refills, Maintenance, 05/18/22 13:57:00 EST, [facility] #[id number], 30, SHAKE LIQUID AND USE 1 SPRAY IN EACH NOSTRIL TWICE DAILY, 153, cm, 04/25/22 16:23:00 E... Start Date: 05/18/22 Status: Ordered gabapentin 800 mg oral tablet 1 tablet, By Mouth, 4 times a day, # 360 tablet, 1 Refills, Maintenance, 04/19/22 12:59:00 EST, [facility] #[id number], 153, cm, 01/04/22 13:15:00 EDT, Height, 113.9, [...] capsule, 1 Refills, Maintenance, 07/18/22 9:45:00 EDT, [facility] #[id number], 153, cm, 06/17/22 10:53:00 EST, Height, 109, [...] 1 Refills, Maintenance, 04/28/22 13:51:00 EST, Tablet, [facility] #[id number], Partial fill upon patient request if the prescription is for a schedule II opioid drug., 153, cm... Start Date: 04/28/22 Status: Ordered lidocaine 4% topical cream 1 application, Topically, 3 times a day, PRN Pain , Mild, # 30 Gm, 1 Refills, Maintenance, 06/24/2315:24:00 EST, Cream, [facility] #[id number], Partial fill upon patient request if the prescription is for a schedule II opioid drug., 1 applicatio... Start Date: 06/23/22 Status: Ordered meloxicam 15 mg oral tablet 1/2 TO 1 TABLET, By Mouth, Daily, PRN NEEDED FOR MODERATE PAIN, # 30 tablet, 5 Refills, Maintenance, 01/10/22 20:40:00 EDT, [facility] #[id number], 153, cm, 01/04/22 13:15:00 EDT, Height, 113.9, [...] capsule, 1 Refills, Maintenance, 07/26/22 14:24:00 EDT, [facility] #[id number], 153, cm, 06/17/22 10:53:00 EST, Height, 109, kg, 06/17/22 10:53:00 EST, Dry Weight Start Date: 07/26/22 Status: Ordered ondansetron 4 mg oral tablet 1 tablet, By Mouth, Every 8 hours, PRN NEEDED FOR NAUSEA OR VOMITING, # 30 tablet, 1 Refills, Maintenance, 06/14/22 10:29:00 EST, [facility] #[id number], 153, cm, 06/08/22 9:37:00 EST, Height, 109, kg, 04/25/22 15:54:00 EST, Dry Weight Start Date: 06/14/22 Status: Ordered oxybutynin 5 mg oral tablet 1 tablet, By Mouth, 3 times a day, # 270 tablet, 1 Refills, Maintenance, 10/04/22 20:44:00 EDT, [facility] #[id number], 153, cm, 06/17/22 10:53:00 EST, Height, 109, [...] 07/01/22 14:21:00 EDT, Route to Pharmacy Electronically, [facility] #[id number], Partial fill upon patient request if the... Start Date: 07/01/22 Status: Ordered triamcinolone 0.1% topical cream 1 application, Topically, 3 times a day, PRN arm rash, # 30 Gm, 1 Refills, Acute 06/08/23 9:53:00 EST, 06/08/22 9:53:00 EST, Cream, [facility] #[id number], Partial fill upon patient request if the [...] Primary Care Member Role: PCP Address: Address: [address] [place] [address] Adult & [place] [address]- Care Team Related Persons Name: RODOLFO SHEIKH Address: home [address] [facility] [address] [place] [id number] Name: CHIARA TEE Address: home [address] [place] [address] [address] [place] [address]
--- OUTSIDE RECORDS SUMMARY | 2022-12-30 08:22 | XMS_ITS | Continuity of Care Document ---
Author Name Unknown Organization [facility] Address [address] [place] [address]- Care Team Providers Care Manager Medical Device Name Role Phone Candis CARDENAS, Kaiden Villalta Primary Care Physician Encounter [facility] Date(s): 01/05/22 - 02/04/22 [facility] [address] [place], [place] [address] Allergies, Adverse [...] 8.5 Gm,0 Refills, Maintenance, 12/22/21 10:40:00 EDT, [email or web address] #[id number], 2 puffs Inhalation Every 4 hours,PRN: NEEDED FOR WHEEZING/cough/shortness... Start Date: 12/22/21 Status: Ordered albuterol 0.083% inhalation solution 3 mL = 2.5 mg, Inhalation, Every 4 hours, PRN for wheezing/cough/shortness of breath, # 25 each, 0 Refills, Maintenance, 10/14/21 22:10:00 EDT, Solution, [facility] #[id number], Partial fill upon patient request if the prescription is for a sched... Start Date: 10/14/21 Status: Ordered [place] Saline Mist 0.65% nasal spray 2 sprays, Nares, Both, 4 times a day, # 1 each, 0 Refills, Maintenance, 02/04/22 13:32:00 EDT, [facility] #[id number], Partial fill upon patient request if the [...] tablet, 0 Refills, Maintenance, 12/27/21 13:43:00 EDT, [facility] #[id number], 153, cm, 10/08/21 13:23:00 EDT, Height, 113.9, [...] # 100 Gm, 1 Refills, [facility], 30, APPLY 1 GM TOPICALLY 4 TIMES A DAY FOR PAIN, 153, cm, 06/07/21 11:07:00 EST, Height, 105, kg, 05/31/21 15:15:00 EST, Dry Weight Start Date: 08/05/21 Status: Ordered Dilaudid 2 mg oral tablet 1 tablet = 2 mg, By Mouth, 2 times a day, PRN Pain , Severe, checked masspat, # 28 tablet, 0 Refills, Maintenance, 02/04/22 13:38:00 EDT, Tablet, [facility] #[id number], Partial fill upon patient request if the prescription is for a schedule II o... Start Date: 02/04/22 Status: Ordered Estrace Vaginal Cream 0.1 mg/g = 2 Gm, Vaginally, Daily at bedtime, 2g PV daily at bedtime x 2 weeks, then 1g PV 1-3x per week, # 42.5 Gm, 5 Refills, Maintenance, 11/09/21 11:17:00 EDT, [facility] #[id number], Partial fill upon patient request if the prescription is for a sche... Start Date: 11/09/21 Status: Ordered Estradiol Patch 0.0375 mg/24 hours twice weekly transdermal film, extended release See Instructions, APPLY 1 PATCH TOPICALLY TWICE WEEKLY DIRECTED, # 8 patch, 0 Refills, Maintenance, 02/01/22 11:03:00 EDT, [facility] #[id number], 28, APPLY 1 PATCH TOPICALLY TWICE WEEKLY DIRECTED, 153, cm, 01/04/22 13:15:00 EDT, Height, 11... Start Date: 02/01/22 Status: Ordered gabapentin 800 mg oral tablet See Instructions, TAKE 1 TABLET BY MOUTH FOUR TIMES DAILY, # 360 tablet, 0 Refills, [facility] #[id number], 153, cm, 10/08/21 13:23:00 EDT, Height, 113.9, [...] capsule, 1 Refills, Maintenance, 12/08/21 10:10:00 EDT, [facility] #[id number], 153, cm, 10/08/21 13:23:00 EDT, Height, 113.9,kg, [...] 1 Refills, Maintenance, 11/30/21 15:44:00 EDT, Tablet, [facility] #[id number], [place]... Start Date: 11/30/21 Status: Ordered levothyroxine 0.112 mg oral tablet 1 tablet, By Mouth, Daily, AVOID ANTACIDS, CALCIUM, OR IRON FOR AT LEAST 4 HOURS BEFORE OR 4 HOURS AFTER; ON AN ON AN EMPTY STOMACH, # 90 tablet, 0 Refills, Maintenance, 01/20/22 17:46:00 EDT, [facility] #[id number], 153, cm, 01/04/22 13:15:00 ED... Start Date: 01/20/22 Status: Ordered lidocaine 3% topical gel 1 application, Topically, 2 times a day, PRN as needed for pain, to replace 2% topical, # 28.5 Gm, 2 Refills, Acute 03/29/22 14:17:00 EST, 12/28/21 14:17:00 EDT, Gel, [facility] #[id number], Partial fill upon patient request if the prescription i... Start Date: 12/28/21 Stop Date: 03/29/22 Status: Ordered meloxicam 15 mg oral tablet 1/2 TO 1 TABLET, By Mouth, Daily, PRN NEEDED FOR MODERATE PAIN, # 30 tablet, 5 Refills, Maintenance, 01/10/22 20:40:00 EDT, [facility] #[id number], 153, cm, 01/04/22 13:15:00 EDT, Height, 113.9, [...] capsule, 0 Refills, Maintenance, 01/16/22 8:28:00 EDT, [facility] #[id number], 153, cm, 01/04/22 13:15:00 EDT, Height, 113.9, kg, 10/08/21 13:23:00 EDT, Dry Weight Start Date: 01/16/22 Status: Ordered ondansetron 4 mg oral tablet 1 tablet = 4 mg, By Mouth, Every 8 hours, PRN Nausea & Vomiting, # 30 tablet, 1 Refills, Maintenance, 11/10/21 14:47:00 EDT, [facility] #[id number], 153, cm, 10/08/21 13:23:00 EDT, Height, 113.9, kg, 10/08/21 13:23:00 EDT, Dry Weight Start Date: 11/10/21 Status: Ordered oxybutynin 5 mg oral tablet 1 tablet, By Mouth, 3 times a day, # 270 tablet, 1 Refills, 01/10/22 10:29:00 EDT, [facility] #[id number], 153, cm, 01/04/22 13:15:00 EDT, Height, 113.9, [...] 02/11/22 13:31:00 EDT, 02/04/22 13:31:00 EDT, Capsule, [facility] #[id number], Partial fill upon patient request if the [...] Name: Candis CARDENAS, Kaiden Villalta Address: Address: [address] [place] [address] Adult & Pediatric Medicine [place], [place] [address]
--- OUTSIDE RECORDS SUMMARY | 2022-12-30 08:22 | XMS_ITS | Continuity of Care Document ---
Author Name Unknown Organization [facility] Address [address] [place] [address]- Care Team Providers Care 3D Technologist Name Role Phone Kaiden Chirinos MD Primary Care Physician [phone] Encounter [facility] Date(s): 02/05/22 - 03/07/22 [facility] [address] [place] [address]- Allergies, Adverse Reactions, Alerts Substance Reaction Severity [...] 8.5 Gm,0 Refills, Maintenance, 12/22/21 10:40:00 EDT, [facility] #[id number], 2 puffs Inhalation Every 4 hours,PRN: NEEDED FOR WHEEZING/cough/shortness... Start Date: 12/22/21 Status: Ordered albuterol 0.083% inhalation solution 3 mL = 2.5 mg, Inhalation, Every 4 hours, PRN for wheezing/cough/shortness of breath, # 25 each, 0 Refills, Maintenance, 06/30/22 22:10:00 EDT, Solution, [facility] #[id number], Partial fill upon patient request if the prescription is for a sched... Start Date: 10/14/21 Status: Ordered [place] Saline Mist 0.65% nasal spray 2 sprays, Nares, Both, 4 times a day, # 1 each, 0 Refills, Maintenance, 02/04/22 13:32:00 EDT, [facility] #[id number], Partial fill upon patient request if the [...] tablet, 0 Refills, Maintenance, 12/27/21 13:43:00 EDT, [facility] #[id number], 153, cm, 10/08/21 13:23:00 EDT, Height, 113.9, [...] # 100 Gm, 1 Refills, [facility], 30, APPLY 1 GM TOPICALLY 4 TIMES A DAY FOR PAIN, 153, cm, 06/07/21 11:07:00 EST, Height, 105, kg, 05/31/21 15:15:00 EST, Dry Weight Start Date: 08/05/21 Status: Ordered Dilaudid 2 mg oral tablet 1 tablet = 2 mg, By Mouth, 2 times a day, PRN Pain , Severe, checked masspat, # 28 tablet, 0 Refills, Maintenance, 03/04/22 14:11:00 EST, Tablet, [facility] #[id number], Partial fill upon patient request if the prescription is for a schedule II o... Start Date: 03/04/22 Status: Ordered Estrace Vaginal Cream 0.1 mg/g = 2 Gm, Vaginally, Daily at bedtime, 2g PV daily at bedtime x 2 weeks, then 1g PV 1-3x per week, # 42.5 Gm, 5 Refills, Maintenance, 11/09/21 11:17:00 EDT, [facility] #[id number], Partial fill upon patient request if the prescription is for a sche... Start Date: 11/09/21 Status: Ordered Estradiol Patch 0.0375 mg/24 hours twice weekly transdermal film, extended release See Instructions, APPLY 1 PATCH TOPICALLY TWICE WEEKLY DIRECTED, # 8 patch, 0 Refills, Maintenance, 02/26/22 10:23:00 EST, [facility] #[id number], 28, APPLY 1 PATCH TOPICALLY TWICE WEEKLY DIRECTED, 153, cm, 01/04/22 13:15:00 EDT, Height, 11... Start Date: 02/26/22 Status: Ordered fluconazole 150 mg oral tablet 1 tablet = 150 mg, By Mouth, Once, # 1 tablet, 0 Refills, Soft Stop, 02/14/22 14:41:00 EDT, Tablet,[facility] #[id number], Partial fill upon patient request if the prescription is for a schedule II opioid drug., 153, cm, 01/04/22 13:15:00 EDT, H... Start Date: 02/14/22 Status: Ordered gabapentin 800 mg oral tablet See Instructions, TAKE 1 TABLET BY MOUTH FOUR TIMES DAILY, # 360 tablet, 0 Refills, [facility] #[id number], 153, cm, 10/08/21 13:23:00 EDT, Height, 113.9, [...] capsule, 1 Refills, Maintenance, 12/08/21 10:10:00 EDT, [facility] #[id number], 153, cm, 10/08/21 13:23:00 EDT, Height, 113.9,kg, [...] tablet, 0 Refills, Maintenance, 01/20/22 17:46:00 EDT, [facility] #[id number], 153, cm, 01/04/22 13:15:00 ED... Start Date: 01/20/22 Status: Ordered lidocaine 3% topical gel 1 application, Topically, 2 times a day, PRN as needed for pain, to replace 2% topical, # 28.5 Gm, 2 Refills, Acute 03/29/22 14:17:00 EST, 12/28/21 14:17:00 EDT, Gel, [facility] #[id number], Partial fill upon patient request if the prescription i... Start Date: 12/28/21 Stop Date: 03/29/22 Status: Ordered meloxicam 15 mg oral tablet 1/2 TO 1 TABLET, By Mouth, Daily, PRN NEEDED FOR MODERATE PAIN, # 30 tablet, 5 Refills, Maintenance, 01/10/22 20:40:00 EDT, [facility] #[id number], 153, cm, 01/04/22 13:15:00 EDT, Height, 113.9, [...] capsule, 0 Refills, Maintenance, 01/16/22 8:28:00 EDT, [facility] #[id number], 153, cm, 01/04/22 13:15:00 EDT, Height, 113.9, kg, 10/08/21 13:23:00 EDT, Dry Weight Start Date: 01/16/22 Status: Ordered ondansetron 4 mg oral tablet 1 tablet, By Mouth, Every 8 hours, PRN NEEDED FOR NAUSEA OR VOMITING, # 30 tablet, 0 Refills, Maintenance, 03/01/22 11:29:00 EST, [facility] #[id number], 153, cm, 01/04/22 13:15:00 EDT, Height, 113.9, kg, 10/08/21 13:23:00 EDT, Dry Weight Start Date: 03/01/22 Status: Ordered oxybutynin 5 mg oral tablet 1 tablet, By Mouth, 3 times a day, # 270 tablet, 1 Refills, 01/10/22 10:29:00 EDT, [facility] #[id number], 153, cm, 01/04/22 13:15:00 EDT, Height, 113.9, [...] 02/18/22 16:37:00 EDT, Route to Pharmacy Electronically, [facility] #[id number], Partial fill upon patient request if the [...] Personnel Name: Candis CARDENAS, Kaiden Villalta Position: [facility] Primary Care Physician Member Role: PCP Address: Address: [address] [place] [address] Adult [place] [address]- Care Team Related Persons Name: RODOLFO SHEIKH Address: home [address] [facility] [address] [place] [address] Name: CHIARA TEE Address: home [address] [place] [address] [place] [id number]
--- OUTSIDE RECORDS SUMMARY | 2022-12-30 08:22 | XMS_ITS | Continuity of Care Document ---
Author Name Unknown Organization [facility] Address [address] [place] [address]- Care Team Providers Care Imcu Nurse Name Role Phone Candis CARDENAS, Kaiden Villalta Primary Care Physician [phone] Encounter [facility] Date(s): 01/25/21 - 02/24/21 [facility] [address] [place], [place] [address] Allergies, Adverse Reactions, Alerts Substance [...] 16:08:00 EDT, Route to Pharmacy Electronically, [facility]/pharmacy #[id number], Partial fill upon patient request if the prescription is for a schedule II... Start Date: 12/24/20 Status: Ordered baclofen 10 mg oral tablet 10 mg, 1, tablet, By Mouth, 3 times a day, PRN, # 30 tablet, Refills 0, Tot. Refills 0, Maintenance, Spasm, 01/31/19 21:47:23 EDT, Route to Pharmacy Electronically, [id number], [facility]/pharmacy #[id number] Start Date: 01/31/19 Stop Date: 02/14/19 Status: Ordered benzonatate 100 mg oral capsule 2 capsule, By Mouth, 3 times a day, PRN NEEDED FOR COUGH, # 30 capsule, 1 Refills, Physician Stop 02/19/22 16:55:00 EDT, 02/19/21 16:54:00 EDT, [facility]/pharmacy #[id number], 160, cm, 12/04/20 10:52:00 EDT, Height, 104.6, kg, 12/04/20 10:52:00 EDT, Dry Weight Start Date: 02/19/21 Stop Date: 02/19/22 Status: Ordered clonazePAM 0.5 mg oral tablet 1 tablet = 0.5 mg, By Mouth, 4 times a day, PRN Anxiety, Patient on controlled substance contract. Please do NOT fill until 09/23/2020, # 112 tablet, 0 Refills, Maintenance, 11/18/20 21:02:00 EDT, Tablet, [facility]/pharmacy #[id number], Partial fill upon patient... Start Date: 11/18/20 Status: Ordered Famotidine 0 Refills, Maintenance, 04/07/19 16:11:00 EST Start Date: 04/07/19 Status: Ordered gabapentin 800 mg oral tablet 1 tablet = 800 mg, By Mouth, 4 times a day, # 360 tablet, 1 Refills, Maintenance, 11/09/20 23:47:00EDT, Tablet, [facility]/pharmacy #[id number], Partial fill upon patient request [...] 1 Refills, Maintenance, 11/05/20 11:43:00 EDT, Tablet, [facility]/pharmacy #[id number], Partial fill upon patient request if the prescription is for a schedule II opioid drug., 160, cm, 10/30/20 8:2... Start Date: 11/05/20 Status: Ordered meloxicam 15 mg oral tablet 1/2 TO 1 TABLET, By Mouth, Daily, PRN NEEDED FOR MODERATE PAIN, # 30 tablet, 1 Refills, [facility] 72984, 160, cm, 12/04/20 10:52:00 EDT, Height, 104.6, kg, 12/04/20 10:52:00 EDT, Dry Weight Start Date: 01/22/21 Status: Ordered omeprazole 20 mg oral enteric coated capsule 1 capsule, By Mouth, Daily, # 90 capsule, 0 Refills, Maintenance, 01/14/21 13:42:00 EDT, [facility]/pharmacy #[id number], 160, cm, 12/04/20 10:52:00 EDT, Height, 104.6, kg, 12/04/20 10:52:00 EDT, Dry Weight Start Date: 01/14/21 Status: Ordered ondansetron 4 mg oral tablet See Instructions, TAKE 1 TABLET BY MOUTH EVERY 8 HOURS NEEDED FOR NAUSEA AND VOMITING, # 15 tablet, 0 Refills, [facility] [id number], 160, cm, 12/04/20 10:52:00 EDT, Height, 104.6, [...]
--- OUTSIDE RECORDS SUMMARY | 2022-12-30 08:22 | XMS_ITS | Continuity of Care Document ---
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 Start Date: 12/22/21 Status: Ordered albuterol 0.083% inhalation solution 3 mL = 2.5 mg, Inhalation, Every 4 hours, PRN for wheezing/cough/shortness of breath, # 25 each, 0 Refills, Maintenance, 10/14/21 22:10:00 EDT, Solution, [facility] #[id number], Partial fill upon patient request if the prescription is for a sched... Start Date: 10/14/21 Status: Ordered [place] Saline Mist 0.65% nasal spray 2 sprays, Nares, Both, 4 times a day, # 1 each, 0 Refills, Maintenance, 02/04/22 13:32:00 EDT, [facility] #[id number], Partial fill upon patient request if the [...] tablet, 0 Refills, Maintenance, 12/27/21 13:43:00 EDT, [facility] #[id number], 153, cm, 10/08/21 13:23:00 EDT, Height, 113.9, [...] # 100 Gm, 1 Refills, [facility], 30, APPLY 1 GM TOPICALLY 4 TIMES A DAY FOR PAIN, 153, cm, 06/07/21 11:07:00 EST, Height, 105, kg, 05/31/21 15:15:00 EST, Dry Weight Start Date: 08/05/21 Status: Ordered Dilaudid 2 mg oral tablet 1 tablet = 2 mg, By Mouth, 2 times a day, PRN Pain , Severe, checked masspat, # 56 tablet, 0 Refills, Maintenance, 04/07/22 21:32:00 EST, Tablet, [facility] #71721, Partial fill upon patient request if the prescription is for a schedule II o... Start Date: 04/07/22 Status: Ordered Estrace Vaginal Cream 0.1 mg/g = 2 Gm, Vaginally, Daily at bedtime, 2g PV daily at bedtime x 2 weeks, then 1g PV 1-3x per week, # 42.5 Gm, 5 Refills, Maintenance, 11/09/21 11:17:00 EDT, [facility] #[id number], Partial fill upon patient request if the prescription is for a sche... Start Date: 11/09/21 Status: Ordered Estradiol Patch 0.0375 mg/24 hours twice weekly transdermal film, extended release See Instructions, APPLY 1 PATCH TOPICALLY TWICE WEEKLY DIRECTED, # 8 patch, 6 Refills, Maintenance, 03/23/22 16:10:00 EST, [facility] #[id number], 28, APPLY 1 PATCH TOPICALLY TWICE WEEKLY DIRECTED, 153, cm, 01/04/22 13:15:00 EDT, Height, 11... Start Date: 03/23/22 Status: Ordered fluconazole 150 mg oral tablet 1 tablet = 150 mg, By Mouth, Once, PRN vaginal yeast infection, # 1 tablet, 0 Refills, Soft Stop, 03/15/22 10:42:00 EST, Tablet, [facility] #[id number], Partial fill upon patient request if the prescription is for a schedule II opioid drug., 153,... Start Date: 03/15/22 Status: Ordered gabapentin 800 mg oral tablet See Instructions, TAKE 1 TABLET BY MOUTH FOUR TIMES DAILY, # 360 tablet, 0 Refills, Maintenance, 04/13/22 20:23:00 EST, [facility] #[id number], 153, cm, 01/04/22 13:15:00 EDT, Height, 113.9, kg,10/08/21 13:23:00 EDT, Dry Weight Start Date: 04/13/22 Status: Ordered gabapentin 800 mg oral tablet 1 tablet, By Mouth, 4 times a day, # 360 tablet, 1 Refills, Maintenance, 04/13/22 20:23:00 EST, [facility] #[id number], 153, cm, 01/04/22 13:15:00 EDT, Height, 113.9, [...] capsule, 1 Refills, Maintenance, 12/08/21 10:10:00 EDT, [facility] #[id number], 153, cm, 10/08/21 13:23:00 EDT, Height, 113.9,kg, [...] 1 Refills, Maintenance, 03/14/22 15:04:00 EST, Tablet, [facility] #18712, Partial fill upon patient request if the prescription is for a schedule II opioid drug., 153, cm... Start Date: 03/14/22 Status: Ordered meloxicam 15 mg oral tablet 1/2 TO 1 TABLET, By Mouth, Daily, PRN NEEDED FOR MODERATE PAIN, # 30 tablet, 5 Refills, Maintenance, 01/10/22 20:40:00 EDT, [facility] #[id number], 153, cm, 01/04/22 13:15:00 EDT, Height, 113.9, [...] capsule, 0 Refills, Maintenance, 01/16/22 8:28:00 EDT, [facility] #49560, 153, cm, 01/04/22 13:15:00 EDT, Height, 113.9, kg, 10/08/21 13:23:00 EDT, Dry Weight Start Date: 01/16/22 Status: Ordered ondansetron 4 mg oral tablet 1 tablet, By Mouth, Every 8 hours, PRN NEEDED FOR NAUSEA OR VOMITING, # 30 tablet, 1 Refills, Maintenance, 04/14/22 21:15:00 EST, [facility] #[id number], 153, cm, 01/04/22 13:15:00 EDT, Height, 113.9, kg, 10/08/21 13:23:00 EDT, Dry Weight Start Date: 04/14/22 Status: Ordered oxybutynin 5 mg oral tablet 1 tablet, By Mouth, 3 times a day, # 270 tablet, 1 Refills, 01/10/22 10:29:00 EDT, [facility] #39957, 153, cm, 01/04/22 13:15:00 EDT, Height, 113.9, [...] 04/14/22 21:16:00 EST, Route to Pharmacy Electronically, [facility] #[id number], Partial fill upon patient request if the... [...] Personnel Name: Candis CARDENAS, Kaiden Villalta Position: [facility] Primary Care Physician Member Role: PCP Address: Address: [address] [place] [address] Adult [place] [address]- Care Team Related Persons Name: RODOLFO SHEIKH Address: home [address] [facility] [address] [place] [address] Name: CHIARA TEE Address: home [address] [place] [address] [place] [address]
--- OUTSIDE RECORDS SUMMARY | 2022-12-30 08:22 | XMS_ITS | Continuity of Care Document ---
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 Start Date: 12/24/20 Status: Ordered baclofen 10 mg oral tablet 10 mg, 1, tablet, By Mouth, 3 times a day, PRN, # 30 tablet, Refills 0, Tot. Refills 0, Maintenance, Spasm, 01/31/19 21:47:23 EDT, Route to Pharmacy Electronically, [id number], [facility]/pharmacy #[id number] Start Date: 01/31/19 Stop Date: 02/14/19 Status: Ordered benzonatate 100 mg oral capsule 2 capsule, By Mouth, 3 times a day, PRN NEEDED FOR COUGH, # 30 capsule, 0 Refills, [facility] 49[facility], 160, cm, 12/04/20 10:52:00 EDT, Height, 104.6, kg, 12/04/20 10:52:00 EDT, Dry Weight Start Date: 01/22/21 Status: Ordered clonazePAM 0.5 mg oral tablet 1 tablet = 0.5 mg, By Mouth, 4 times a day, PRN Anxiety, Patient on controlled substance contract. Please do NOT fill until 09/23/2020, # 112 tablet, 0 Refills, Maintenance, 11/18/20 21:02:00 EDT, Tablet, [facility]/pharmacy #[id number], Partial fill upon patient... Start Date: 11/18/20 Status: Ordered Famotidine 0 Refills, Maintenance, 04/07/19 16:11:00 EST Start Date: 04/07/19 Status: Ordered gabapentin 800 mg oral tablet 1 tablet = 800 mg, By Mouth, 4 times a day, # 360 tablet, 1 Refills, Maintenance, 11/09/20 23:47:00EDT, Tablet, [facility]/pharmacy #[id number], Partial fill upon patient request if [...] 3 times a day, 0 Refills, Maintenance, 12/22/19 16:12:00 EST Start Date: 04/07/19 Status: Ordered [...] Refills, Maintenance, 11/05/20 11:43:00 EDT, Tablet, [facility]/pharmacy #[id number], Partial fill upon patient request if the prescription is for a schedule II opioid drug., 160, cm, 10/30/20 8:2... Start Date: 11/05/20 Status: Ordered meloxicam 15 mg oral tablet 1/2 TO 1 TABLET, By Mouth, Daily, PRN NEEDED FOR MODERATE PAIN, # 30 tablet, 1 Refills, [facility] [id number], 160, cm, 12/04/20 10:52:00 EDT, Height, 104.6, kg, 12/04/20 10:52:00 EDT, Dry Weight Start Date: 01/22/21 Status: Ordered omeprazole 20 mg oral enteric coated capsule 1 capsule, By Mouth, Daily, # 90 capsule, 0 Refills, Maintenance, 01/14/21 13:42:00 EDT, [facility]/pharmacy #0969, 160, cm, 12/04/20 10:52:00 EDT, Height, [...] Effective Dates Health Status Clinical Service Informant Dysuria Discharge Diagnosis 01/25/21 Urinary incontinence Discharge Diagnosis 01/25/21 COVID-19 virus infection Discharge Diagnosis 01/25/21 Social History Social History Type Response Smoking Status Former smoker, quit more than 30 days ago;Never entered on: 04/07/19 Sex
--- OUTSIDE RECORDS SUMMARY | 2022-12-30 08:22 | XMS_ITS | Continuity of Care Document ---
Author Name Unknown Organization [facility] [place] [facility] Address [address] [place] [address], [address] [place] [address]- Care Team Providers Care Scraper Tender Name Role Phone Kaiden Chirinos MD [id number] Date(s): 03/25/21 - 05/21/21 [facility] [address] [place] [address], [address] [place], [place] [address] Attending Physician: Not on Staff, Attending MD [...] FOR WHEEZING, # 8.5 each, 0 Refills, [facility] [id number], 20, INHALE 2 PUFFS BY MOUTH EVERY 4 HOURS NEEDED FOR WHEEZING, 160, cm, 03/30/21 10:47:00 EST, Height, 104.6, kg, 12/04/20 10:52:00 EDT, Dry Weight Start Date: 04/28/21 Status: Ordered amitriptyline 10 mg oral tablet 10 mg, 1, tablet, By Mouth, Daily at bedtime, # 90 tablet, Refills 1, Tot. Refills 1, Maintenance, 12/24/20 16:08:00 EDT, Route to Pharmacy Electronically, [facility]/pharmacy #[id number], Partial fill upon patient request if the prescription is for a schedule II... Start Date: 12/24/20 Status: Ordered baclofen 10 mg oral tablet 10 mg, 1, tablet, By Mouth, 3 times a day, PRN, # 30 tablet, Refills 0, Tot. Refills 0, Maintenance, Spasm, 01/31/19 21:47:23 EDT, Route to Pharmacy Electronically, [id number], [id number] Start Date: 01/31/19 Stop Date: [...] 0 Refills, Maintenance, 11/18/20 21:02:00 EDT, Tablet, [facility]/pharmacy #[id number], Partial fill upon patient... Start Date: 11/18/20 Status: Ordered Dilaudid 2 mg oral tablet 0.5 tablet = 1 mg, By Mouth, Every 6 hours, PRN Pain , Severe, # 28 tablet, 0 Refills, Acute 08/18/21 10:23:00 EDT, 07/12/21 15:21:00 EDT, Tablet, [facility]/pharmacy #[id number], Partial fill upon patient request if the prescription is for a schedule II opioid . Start Date: 07/12/21 Stop Date: 08/18/21 Status: Ordered Dilaudid 2 mg oral tablet 0.5 tablet = 1 mg, By Mouth, Every 6 hours, PRN Pain , Severe, # 14 tablet, 0 Refills, Acute 07/12/21 15:21:00 EDT, 05/14/21 15:19:00 EST, Tablet, [facility]/pharmacy #[id number], Partial fill upon patient request if the prescription is for a schedule II opioid Start Date: 05/14/21 Stop Date: 07/12/21 Status: Ordered Famotidine 0 Refills, Maintenance, 04/07/19 16:11:00 EST Start Date: 04/07/19 Status: Ordered gabapentin 800 mg oral tablet 1 tablet, By Mouth, 4 times a day, # 360 tablet, 1 Refills, [facility] 14058, 160, cm, 03/30/21 10:47:00 EST, Height, 104.6, [...] 1 Refills, Maintenance, 02/25/21 8:28:00 EST, Capsule, [facility]/pharmacy #[id number], Partial fill upon patient [...] 1 Refills, Maintenance, 05/14/21 15:23:00 EST, Tablet, [facility]/pharmacy #[id number], Partial fill upon patient [...] 05/26/21 12:01:00 EST, 05/21/21 12:01:00 EST, Capsule, [facility]/pharmacy #[id number], Partial fill upon patient request if the prescriptio... Start Date: 05/21/21 Stop Date: 05/26/21 Status: Ordered meloxicam 15 mg oral tablet 1/2 TO 1 TABLET, By Mouth, Daily, PRN NEEDED FOR MODERATE PAIN, # 30 tablet, 1 Refills, [id number], 160, cm, 12/04/20 10:52:00 EDT, Height, 104.6, kg, 12/04/20 10:52:00 EDT, Dry Weight Start Date: 01/22/21 Status: Ordered omeprazole 20 mg oral enteric coated capsule 1 capsule, By Mouth, Daily, # 90 capsule, 1 Refills, [facility] 93390, 160, cm, 03/30/21 10:47:00 EST, Height, 104.6, kg, 12/04/20 10:52:00 EDT, Dry Weight Start Date: 03/31/21 Status: Ordered ondansetron 4 mg oral tablet See Instructions, TAKE 1 TABLET BY MOUTH EVERY 8 HOURS NEEDED FOR NAUSEA AND VOMITING, # 15 tablet, 1 Refills, Physician Stop 07/12/21 15:23:00 EDT, 05/14/21 15:22:00 EST, [facility]/pharmacy #[id number], 160,cm, 03/30/21 10:47:00 EST, Height, [...]
--- OUTSIDE RECORDS SUMMARY | 2022-12-30 08:22 | XMS_ITS | Continuity of Care Document ---
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 Start Date: 12/22/21 Status: Ordered albuterol 0.083% inhalation solution 3 mL = 2.5 mg, Inhalation, Every 4 hours, PRN for wheezing/cough/shortness of breath, # 25 each, 0 Refills, Maintenance, 10/14/21 22:10:00 EDT, Solution, [facility] #[id number], Partial fill upon patient request if the prescription is for a sched... Start Date: 10/14/21 Status: Ordered benzonatate 100 mg oral capsule 2 capsule, By Mouth, 3 times a day, PRN NEEDED FOR COUGH, # 30 capsule, 1 Refills, Maintenance, 12/10/22 15:43:00 EDT, [facility] #[id number], 153, cm, 10/08/21 13:23:00 EDT, Height, 113.9, kg, 10/08/21 13:23:00 EDT, Dry Weight Start Date: 12/10/22 Status: Ordered benzonatate 100 mg oral capsule 2 capsule, By Mouth, 3 times a day, PRN NEEDED FOR COUGH, # 30 capsule, 1 Refills, Physician Stop 12/10/22 15:43:00 EDT, 11/10/22 14:46:00 EDT, [facility] #[id number], 153, cm, 10/08/21 13:23:00 EDT, Height, 113.9, [...] tablet, 0 Refills, Maintenance, 12/27/21 13:43:00 EDT, [facility] #02889, 153, cm, 10/08/21 13:23:00 EDT, Height, 113.9, kg, 10/08/21 13:23:00EDT, Dry Weight Start Date: 12/27/21 Status: Ordered clonazePAM 0.5 mg oral tablet 1 tablet = 0.5 mg, By Mouth, 4 times a day, PRN Anxiety, Patient on controlled substance contract. Please do NOT fill until 09/23/2020, # 112 tablet, 0 Refills, Maintenance, 11/18/20 21:02:00 EDT, Tablet, [facility]/pharmacy #0907, Partial fill upon patient... Start Date: 11/18/20 Status: Ordered diclofenac 1% topical gel = 1 Gm, Topically, 4 times a day, FOR PAIN., # 100 Gm, 1 Refills, [facility] 53277, 30, APPLY 1 GM TOPICALLY 4 TIMES A DAY FOR PAIN, 153, cm, 06/07/21 11:07:00 EST, Height, 105, kg, 05/31/21 15:15:00 EST, Dry Weight Start Date: 08/05/21 Status: Ordered Dilaudid 2 mg oral tablet 1 tablet = 2 mg, By Mouth, 2 times a day, PRN Pain , Severe, checked masspat, # 28 tablet, 0 Refills, Maintenance, 12/22/21 10:40:00 EDT, Tablet, [facility] #[id number], Partial fill upon patient request if the prescription is for a schedule II o... Start Date: 12/22/21 Status: Ordered Estrace Vaginal Cream 0.1 mg/g = 2 Gm, Vaginally, Daily at bedtime, 2g PV daily at bedtime x 2 weeks, then 1g PV 1-3x per week, # 42.5 Gm, 5 Refills, Maintenance, 11/09/21 11:17:00 EDT, [facility] #[id number], Partial fill upon patient request if the prescription is for a sche... Start Date: 11/09/21 Status: Ordered estradiol 0.0375 mg/24 hours twice weekly transdermal film, extended release See Instructions, 1 patch Topically, change patch twice a week, # 1 pack/packet, 1 Refills, Maintenance, 12/07/21 10:42:00 EDT, [facility] #[id number], Partial fill upon patient request if the prescription is for a schedule II opioid drug., 153,... Start Date: 12/07/21 Status: Ordered gabapentin 800 mg oral tablet See Instructions, TAKE 1 TABLET BY MOUTH FOUR TIMES DAILY, # 360 tablet, 0 Refills, [facility] #[id number], 153, cm, 10/08/21 13:23:00 EDT, Height, 113.9, [...] capsule, 1 Refills, Maintenance, 12/08/21 10:10:00 EDT, [facility] #[id number], 153, cm, 10/08/21 13:23:00 EDT, Height, 113.9,kg, [...] 1 Refills, Maintenance, 07/30/21 12:25:00 EDT, Tablet, [facility] #00198, Partial fill upon patient request if the prescription is for a schedule II opioid drug... Start Date: 07/30/21 Status: Ordered levothyroxine 0.1 mg oral tablet 1 tablet = 100 mcg, By Mouth, Daily, dose increase, # 90 tablet, 0 Refills, Maintenance, 11/01/21 16:08:00 EDT, [facility] #[id number], Please discontinue 88ug, 153, cm, 10/08/21 13:23:00 [...] 1 Refills, Maintenance, 11/30/21 15:44:00 EDT, Tablet, [facility] #[id number], [place]... Start Date: 11/30/21 Status: Ordered lidocaine 3% topical gel 1 application, Topically, 2 times a day, PRN as needed for pain, to replace 2% topical, # 28.5 Gm, 2 Refills, Acute 03/29/22 14:17:00 EST, 12/28/21 14:17:00 EDT, Gel, [facility] #[id number], Partial fill upon patient request if the prescription i... Start Date: 12/28/21 Stop Date: 03/29/22 Status: Ordered lidocaine 4% topical cream 1 application, Topically, 2 times a day, PRN Pain , Mild, # 30 Gm, 1 Refills, Acute 01/27/22 17:31:00 EDT, 12/28/21 17:31:00 EDT, Cream, [facility] #[id number], Partial fill upon patient requestif the prescription is for a schedule II opioid cedrick... Start Date: 12/28/21 Stop Date: 01/27/22 Status: Ordered meloxicam 15 mg oral tablet 1/2 TO 1 TABLET, By Mouth, Daily, PRN NEEDED FOR MODERATE PAIN, # 30 tablet, 1 Refills, :04:00 EDT, [facility] #04097, 153, cm, 10/08/21 13:23:00 EDT, Height, 113.9, kg, 10/08/21 13:23:00 EDT, Dry Weight Start Date: 11/16/21 Status: Ordered metroNIDAZOLE 500 mg oral tablet 1 tablet = 500 mg, By Mouth, Every 12 hours, for 7 days, do not drink alcohol, # 14 tablet, 0 Refills, Acute 01/05/22 16:58:00 EDT, 12/29/21 16:58:00 EDT, Tablet, [facility] #[id number], Partialfill upon patient request if the prescription [...] 90 capsule, 0 Refills, 09/27/21 14:31:00 EDT, [facility] #[id number], 153, cm, 08/10/21 11:19:00 EDT, Height, 105, kg, 05/31/21 15:15:00 EST, Dry Weight Start Date: 09/27/21 Status: Ordered ondansetron 4 mg oral tablet 1 tablet = 4 mg, By Mouth, Every 8 hours, PRN Nausea & Vomiting, # 30 tablet, 1 Refills, Maintenance, 11/10/21 14:47:00 EDT, [facility] #[id number], 153, cm, 10/08/21 13:23:00 EDT, Height, 113.9, kg, 10/08/21 13:23:00 EDT, Dry Weight Start Date: 11/10/21 Status: Ordered oxybutynin 5 mg oral tablet 1 tablet, By Mouth, 3 times a day, # 270 tablet, 1 Refills, [facility], 153, cm, 08/10/21 11:19:00 EDT, Height, 105, [...] Team Personnel Name: Kaiden Chirinos MD Address: [address] [place] [address] [facility] [address]
--- OUTSIDE RECORDS SUMMARY | 2022-12-30 08:22 | XMS_ITS | Continuity of Care Document ---
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 Start Date: 12/22/21 Status: Ordered albuterol 0.083% inhalation solution 3 mL = 2.5 mg, Inhalation, Every 4 hours, PRN for wheezing/cough/shortness of breath, # 25 each, 0 Refills, Maintenance, 10/14/21 22:10:00 EDT, Solution, [facility] #[id number], Partial fill upon patient request if the prescription is for a sched... Start Date: 10/14/21 Status: Ordered Raleigh Saline Mist 0.65% nasal spray 2 sprays, Nares, Both, 4 times a day, # 1 each, 0 Refills, Maintenance, 02/04/22 13:32:00 EDT, [facility] #[id number], Partial fill upon patient request if the [...] tablet, 0 Refills, Maintenance, 12/27/21 13:43:00 EDT, [facility] #[id number], 153, cm, 10/08/21 13:23:00 EDT, Height, 113.9, [...] # 100 Gm, 1 Refills, [facility], 30, APPLY 1 GM TOPICALLY 4 TIMES A DAY FOR PAIN, 153, cm, 06/07/21 11:07:00 EST, Height, 105, kg, 05/31/21 15:15:00 EST, Dry Weight Start Date: 08/05/21 Status: Ordered Dilaudid 2 mg oral tablet 1 tablet = 2 mg, By Mouth, 2 times a day, PRN Pain , Severe, checked masspat, # 56 tablet, 0 Refills, Maintenance, 05/05/22 17:13:00 EST, Tablet, [facility] #47582, Partial fill upon patient request if the prescription is for a schedule II o... Start Date: 05/05/22 Status: Ordered Estrace Vaginal Cream 0.1 mg/g = 2 Gm, Vaginally, Daily at bedtime, 2g PV daily at bedtime x 2 weeks, then 1g PV 1-3x per week, # 42.5 Gm, 5 Refills, Maintenance, 11/09/21 11:17:00 EDT, [facility] #[id number], Partial fill upon patient request if the prescription is for a sche... Start Date: 11/09/21 Status: Ordered Estradiol Patch 0.0375 mg/24 hours twice weekly transdermal film, extended release See Instructions, APPLY 1 PATCH TOPICALLY TWICE WEEKLY DIRECTED, # 8 patch, 6 Refills, Maintenance, 03/23/22 16:10:00 EST, [facility] #[id number], 28, APPLY 1 PATCH TOPICALLY TWICE WEEKLY DIRECTED, 153, cm, 01/04/22 13:15:00 EDT, Height, 11... Start Date: 03/23/22 Status: Ordered fluconazole 150 mg oral tablet 1 tablet = 150 mg, By Mouth, Once, PRN vaginal yeast infection, # 1 tablet, 0 Refills, Soft Stop, 03/15/22 10:42:00 EST, Tablet, [facility] #[id number], Partial fill upon patient request if the prescription is for a schedule II opioid drug., 153,... Start Date: 03/15/22 Status: Ordered fluticasone 50 mcg/inh nasal spray See Instructions, SHAKE LIQUID AND USE 1 SPRAY IN EACH NOSTRIL TWICE DAILY, # 16 Gm, 1 Refills, Maintenance, 05/18/22 13:57:00 EST, [facility] #24877, 30, SHAKE LIQUID AND USE 1 SPRAY IN EACH NOSTRIL TWICE DAILY, 153, cm, 04/25/22 16:23:00 E... Start Date: 05/18/22 Status: Ordered gabapentin 800 mg oral tablet 1 tablet, By Mouth, 4 times a day, # 360 tablet, 1 Refills, Maintenance, 04/19/22 12:59:00 EST, [facility] #[id number], 153, cm, 01/04/22 13:15:00 EDT, Height, 113.9, [...] capsule, 1 Refills, Maintenance, 05/20/22 12:57:00 EST, [facility] #[id number], 153, cm, 04/25/22 16:23:00 EST, Height, 109, [...] 1 Refills, Maintenance, 04/28/22 13:51:00 EST, Tablet, [facility] #[id number], Partial fill upon patient request if the prescription is for a schedule II opioid drug., 153, cm... Start Date: 04/28/22 Status: Ordered lidocaine 4% topical cream 1 application, Topically, 3 times a day, PRN pain of forearms, # 30 Gm, 1 Refills, Acute 06/23/22 16:24:00 EST, 04/25/22 16:23:00 EST, Cream, [facility] #01055, Partial fill upon patient request if the prescription is for a schedule II opioi... Start Date: 04/25/22 Stop Date: 06/23/22 Status: Ordered meloxicam 15 mg oral tablet 1/2 TO 1 TABLET, By Mouth, Daily, PRN NEEDED FOR MODERATE PAIN, # 30 tablet, 5 Refills, Maintenance, 01/10/22 20:40:00 EDT, [facility] #[id number], 153, cm, 01/04/22 13:15:00 EDT, Height, 113.9, [...] capsule, 1 Refills, Maintenance, 04/19/22 12:41:00 EST, [facility] #94917, 153, cm, 01/04/22 13:15:00 EDT, Height, 113.9, kg, 10/08/21 13:23:00 EDT, Dry Weight Start Date: 04/19/22 Status: Ordered ondansetron 4 mg oral tablet 1 tablet, By Mouth, Every 8 hours, PRN NEEDED FOR NAUSEA OR VOMITING, # 30 tablet, 1 Refills, Maintenance, 04/14/22 21:15:00 EST, [facility] #[id number], 153, cm, 01/04/22 13:15:00 EDT, Height, 113.9, kg, 10/08/21 13:23:00 EDT, Dry Weight Start Date: 04/14/22 Status: Ordered oxybutynin 5 mg oral tablet 1 tablet, By Mouth, 3 times a day, # 270 tablet, 1 Refills, 01/10/22 10:29:00 EDT, [facility] #[id number], 153, cm, 01/04/22 13:15:00 EDT, Height, 113.9, [...] 04/14/22 21:16:00 EST, Route to Pharmacy Electronically, [facility] #[id number], Partial fill upon patient request if the... [...] Personnel Name: Candis CARDENAS, Kaiden Villalta Position: [facility] Primary Care Physician Member Role: PCP Address: Address: [address] [place] [address] Adult [place] [address]- Care Team Related Persons Name: RODOLFO SHEIKH Address: home [address] [facility] [address] [place] [id number] Name: CHIARA TEE Address: home [address] [place] [address] [place] [id number]
--- OUTSIDE RECORDS SUMMARY | 2022-12-30 08:22 | XMS_ITS | Continuity of Care Document ---
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 Start Date: 09/28/21 Status: Ordered albuterol 0.083% inhalation solution 3 mL = 2.5 mg, Inhalation, Every 4 hours, PRN for wheezing/cough/shortness of breath, # 25 each, 0 Refills, Maintenance, 10/14/21 22:10:00 EDT, Solution, [facility] #[id number], Partial fill upon patient request if the prescription is for a sched... Start Date: 10/14/21 Status: Ordered benzonatate 100 mg oral capsule 2 capsule, By Mouth, 3 times a day, PRN NEEDED FOR COUGH, # 30 capsule, 1 Refills, Physician Stop 03/19/22 17:38:00 EST, 02/19/22 16:55:00 EDT, [facility]/pharmacy #[id number], 160, cm, 12/04/20 10:52:00 EDT, Height, 104.6, kg, 12/04/20 10:52:00 EDT, Dry Weight Start Date: 02/19/22 Stop Date: 03/19/22 Status: Ordered benzonatate 100 mg oral capsule 2 capsule, By Mouth, 3 times a day, PRN NEEDED FOR COUGH, # 30 capsule, 1 Refills, Maintenance, 09/29/21 15:56:00 EDT, [facility] #[id number], 153, cm, 08/10/21 11:19:00 EDT, Height, 105, kg,05/31/21 15:15:00 EST, Dry Weight Start Date: 09/29/21 Status: Ordered budesonide 1 mg/2 mL inhalation suspension 2 mL = 1 mg, Neb, 2 times a day, rinse mouth out after use, # 120 mL, 1 Refills, Maintenance, 10/25/21 18:30:00 EDT, Suspension, [facility] #[id number], Partial fill upon patient request if the [...] # 100 Gm, 1 Refills, [facility], 30, APPLY 1 GM TOPICALLY 4 TIMES A DAY FOR PAIN, 153, cm, 06/07/21 11:07:00 EST, Height, 105, kg, 05/31/21 15:15:00 EST, Dry Weight Start Date: 08/05/21 Status: Ordered Dilaudid 2 mg oral tablet 1 tablet = 2 mg, By Mouth, 2 times a day, PRN Pain , Severe, checked masspat, # 28 tablet, 0 Refills, Maintenance, 10/25/21 21:55:00 EDT, Tablet, [facility] #[id number], Partial fill upon patient request if the prescription is for a schedule II o... Start Date: 10/25/21 Status: Ordered Famotidine 0 Refills, Maintenance, 04/07/19 16:11:00 EST Start Date: 04/07/19 Status: Ordered fluconazole 150 mg oral tablet 1 tablet = 150 mg, By Mouth, Once, # 1 tablet, 0 Refills, Soft Stop, 09/21/21 11:15:00 EDT, Tablet,[facility] #[id number], Partial fill upon patient request if the prescription is for a schedule II opioid drug., 153, cm, 08/10/21 11:19:00 EDT, H... Start Date: 09/21/21 Status: Ordered gabapentin 800 mg oral tablet See Instructions, TAKE 1 TABLET BY MOUTH FOUR TIMES DAILY, # 360 tablet, 0 Refills, [facility] #[id number], 153, cm, 10/08/21 13:23:00 EDT, Height, 113.9, [...] capsule, 1 Refills, Maintenance, 09/28/21 16:58:00 EDT, [facility] #[id number], 153, cm, 08/10/21 11:19:00 EDT, Height, 105, [...] 1 Refills, Maintenance, 07/30/21 12:25:00 EDT, Tablet, [facility] #[id number], Partial fill upon patient request if the prescription is for a schedule II opioid drug... Start Date: 07/30/21 Status: Ordered levothyroxine 0.1 mg oral tablet 1 tablet = 100 mcg, By Mouth, Daily, dose increase, # 90 tablet, 0 Refills, Maintenance, 11/01/21 16:08:00 EDT, [facility] #[id number], Please discontinue 88ug, 153, cm, 10/08/21 13:23:00 EDT, Height, 113.9, kg, 10/08/21 13:23:00 EDT, Dry Weight Start Date: 11/01/21 Status: Ordered lidocaine 2% topical gel with applicator 5 mL = 0.1 Gm, Topically, 2 times a day, PRN Pain , Moderate, # 60 mL, 2 Refills, Soft Stop, 09/24/21 16:43:00 EDT, Gel, [facility] #[id number], Partial fill upon patient request if the [...] 90 capsule, 0 Refills, 09/27/21 14:31:00 EDT, [facility] #[id number], 153, cm, 08/10/21 11:19:00 EDT, Height, 105, kg, 05/31/21 15:15:00 EST, Dry Weight Start Date: 09/27/21 Status: Ordered ondansetron 4 mg oral tablet 1 tablet = 4 mg, By Mouth, Every 8 hours, PRN Nausea & Vomiting, # 30 tablet, 1 Refills, Maintenance, 09/28/21 16:56:00 EDT, [facility] #[id number], 153, cm, 08/10/21 11:19:00 EDT, Height, 105, kg, 05/31/21 15:15:00 EST, Dry Weight Start Date: 09/28/21 Status: Ordered oxybutynin 5 mg oral tablet 1 tablet, By Mouth, 3 times a day, # 270 tablet, 1 Refills, [facility] 66498, 153, cm, 08/10/21 11:19:00 EDT, Height, 105, [...] 1 Refills, Maintenance, 07/30/21 12:22:00 EDT, Tablet, [facility] #[id number], Partial fill upon patient request if the [...]
--- OUTSIDE RECORDS SUMMARY | 2022-12-30 08:23 | XMS_ITS | Continuity of Care Document ---
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 Name Role Phone Candis CARDENAS, Kaiden Villalta [id number] Date(s): 08/13/21 - 09/12/21 [facility] [address], [place] [address] Allergies, Adverse Reactions, Alerts [...] # 8.5 each, 0 Refills, [id number], 20, INHALE 2 PUFFS BY MOUTH EVERY 4 HOURS NEEDED FOR WHEEZING, 160, cm, 03/30/21 10:47:00 EST, Height, 104.6, kg, 12/04/20 10:52:00 EDT, Dry Weight Start Date: 04/28/21 Status: Ordered amitriptyline 10 mg oral tablet 10 mg, 1, tablet, By Mouth, Daily at bedtime, # 90 tablet, Refills 1, Tot. Refills 1, Maintenance, 07/30/21 12:25:00 EDT, Route to Pharmacy Electronically, [facility] #[id number], Partial fill upon patient request if the prescription is for a jasmin... Start Date: 07/30/21 Status: Ordered benzonatate 100 mg oral capsule 2 capsule, By Mouth, 3 times a day, PRN NEEDED FOR COUGH, # 30 capsule, 1 Refills, Physician Stop 03/19/22 17:38:00 EST, 02/19/22 16:55:00 EDT, [facility]/pharmacy #[id number], 160, cm, 12/04/20 10:52:00 EDT, Height, 104.6, kg, 12/04/20 10:52:00 EDT, Dry Weight Start Date: 02/19/22 Stop Date: 03/19/22 Status: Ordered benzonatate 100 mg oral capsule 2 capsule, By Mouth, 3 times a day, PRN NEEDED FOR COUGH, # 30 capsule, 1 Refills, Physician Stop 02/19/22 16:55:00 EDT, 02/19/21 16:54:00 EDT, [facility]/pharmacy #[id number], 160, cm, 12/04/20 10:52:00 EDT, Height, 104.6, kg, 12/04/20 10:52:00 EDT, Dry Weight Start Date: 02/19/21 Stop Date: 02/19/22 Status: Ordered clonazePAM 0.5 mg oral tablet 1 tablet = 0.5 mg, By Mouth, 4 times a day, PRN Anxiety, Patient on controlled substance contract. Please do NOT fill until 09/23/2020, # 112 tablet, 0 Refills, Maintenance, 11/18/20 21:02:00 EDT, Tablet, [facility]/pharmacy #[id number], Partial fill upon patient... Start Date: 11/18/20 Status: Ordered diclofenac 1% topical gel = 1 Gm, Topically, 4 times a day, FOR PAIN., # 100 Gm, 1 Refills, [id number], 30, APPLY 1 GM TOPICALLY 4 TIMES A DAY FOR PAIN, 153, cm, 06/07/21 11:07:00 EST, Height, 105, kg, 05/31/21 15:15:00 EST, Dry Weight Start Date: 08/05/21 Status: Ordered Dilaudid 2 mg oral tablet 1 tablet = 2 mg, By Mouth, 2 times a day, PRN Pain , Severe, # 28 tablet, 0 Refills, Maintenance, 08/09/21 22:27:00 EDT, Tablet, [facility] #[id number], Partial fill upon patient request if the prescription is for a schedule II opioid drug., 153,... Start Date: 08/09/21 Status: Ordered Dilaudid 2 mg oral tablet 1 tablet = 2 mg, By Mouth, 2 times a day, PRN Pain , Severe, # 28 tablet, 0 Refills, Maintenance, 09/06/21 16:20:00 EDT, Tablet, [facility] #[id number], Partial fill upon patient request if the prescription is for a schedule II opioid drug., 153,... Start Date: 09/06/21 Status: Ordered Famotidine 0 Refills, Maintenance, 04/07/19 16:11:00 EST Start Date: 04/07/19 Status: Ordered gabapentin 800 mg oral tablet 1 tablet, By Mouth, 4 times a day, # 360 tablet, 1 Refills, [facility] [id number], 160, cm, 03/30/21 10:47:00 EST, Height, 104.6, [...] FOR ITCHING, # 90 capsule, 1 Refills, [facility] [id number], 153, cm, 06/07/21 11:07:00 EST, Height, 105, [...] 1 Refills, Maintenance, 07/30/21 12:25:00 EDT, Tablet, [facility] #[id number], Partial fill upon patient request if the prescription is for a schedule II opioid drug... Start Date: 07/30/21 Status: Ordered omeprazole 20 mg oral enteric coated capsule 1 capsule, By Mouth, Daily, # 90 capsule, 1 Refills, [facility] [id number], 160, cm, 03/30/21 10:47:00 EST, Height, 104.6, kg, 12/04/20 10:52:00 EDT, Dry Weight Start Date: 03/31/21 Status: Ordered ondansetron 4 mg oral tablet 1 tablet = 4 mg, By Mouth, Every 8 hours, PRN Nausea & Vomiting, # 30 tablet, 1 Refills, Maintenance, 08/12/21 13:26:00 EDT, [facility] #[id number], 153, cm, 08/10/21 11:19:00 EDT, Height, 105, kg, 05/31/21 15:15:00 EST, Dry Weight Start Date: 08/12/21 Status: Ordered oxybutynin 5 mg oral tablet 1 tablet, By Mouth, 3 times a day, # 270 tablet, 1 Refills, [facility] 88412, 153, cm, 08/10/21 11:19:00 EDT, Height, 105, [...] 0 Refills, Maintenance, 08/13/21 16:34:00 EDT, Tablet, [facility] #[id number], Partial fill upon patient request if the prescription is for a schedule II opioid drug., 153, cm, 08/10/21 11:19:00 ED... Start Date: 08/13/21 Status: Ordered traZODone 150 mg oral tablet 1.5 tablet = 225 mg, By Mouth, Daily at bedtime, # 135 tablet, 1 Refills, Maintenance, 07/30/21 12:25:00 EDT, Tablet, [facility] #[id number], Partial fill upon patient request if the [...] 1 Refills, Maintenance, 07/30/21 12:22:00 EDT, Tablet, [facility] #[id number], Partial fill upon patient request if the [...]
--- OUTSIDE RECORDS SUMMARY | 2022-12-30 08:23 | XMS_ITS | Continuity of Care Document ---
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 Role Phone Candis CARDENAS, Kaiden Villalta Primary Care Physician Encounter [facility] R [id number] Date(s): 05/21/21 - 06/20/21 [facility] [address] [facility], [address] [place], [place] [address] Attending Physician: Admjahaira, Jc Admitting Physician: AdmtrJc [...] FOR WHEEZING, # 8.5 each, 0 Refills, [facility] [id number], 20, INHALE 2 PUFFS BY MOUTH EVERY 4 HOURS NEEDED FOR WHEEZING, 160, cm, 03/30/21 10:47:00 EST, Height, 104.6, kg, 12/04/20 10:52:00 EDT, Dry Weight Start Date: 04/28/21 Status: Ordered amitriptyline 10 mg oral tablet 10 mg, 1, tablet, By Mouth, Daily at bedtime, # 90 tablet, Refills 1, Tot. Refills 1, Maintenance, 12/24/20 16:08:00 EDT, Route to Pharmacy Electronically, [facility]/pharmacy #[id number], Partial fill upon patient request if the prescription is for a schedule II... Start Date: 12/24/20 Status: Ordered baclofen 10 mg oral tablet 10 mg, 1, tablet, By Mouth, 3 times a day, PRN, # 30 tablet, Refills 0, Tot. Refills 0, Maintenance, Spasm, 01/31/19 21:47:23 EDT, Route to Pharmacy Electronically, [id number], [facility]/pharmacy #[id number] Start Date: 01/31/19 Stop Date: 02/14/19 Status: Ordered benzonatate 100 mg oral capsule 2 capsule, By Mouth, 3 times a day, PRN NEEDED FOR COUGH, # 30 capsule, 1 Refills, Physician Stop 03/19/22 17:38:00 EST, 02/19/22 16:55:00 EDT, [facility]/pharmacy #[id number], 160, cm, 12/04/20 10:52:00 EDT, Height, 104.6, kg, 12/04/20 10:52:00 EDT, Dry Weight Start Date: 02/19/22 Stop Date: 03/19/22 Status: Ordered benzonatate 100 mg oral capsule 2 capsule, By Mouth, 3 times a day, PRN NEEDED FOR COUGH, # 30 capsule, 1 Refills, Physician Stop 02/19/22 16:55:00 EDT, 02/19/21 16:54:00 EDT, [facility]/pharmacy #[id number], 160, cm, 12/04/20 10:52:00 EDT, Height, [...] 06/24/21 17:15:00 EST, 06/10/21 17:12:00 EST, Tablet, [facility]/pharmacy #[id number], Partial fill upon patient request if the prescription is for a schedule... Start Date: 06/10/21 Stop Date: 06/24/21 Status: Ordered Famotidine 0 Refills, Maintenance, 04/07/19 16:11:00 EST Start Date: 04/07/19 Status: Ordered gabapentin 800 mg oral tablet 1 tablet, By Mouth, 4 times a day, # 360 tablet, 1 Refills, [facility] 03684, 160, cm, 03/30/21 10:47:00 EST, Height, 104.6, [...] 1 Refills, Maintenance, 06/07/21 19:08:00 EST, Capsule, [facility]/pharmacy #[id number], Partial fill [...] 1 Refills, Maintenance, 05/14/21 15:23:00 EST, Tablet, [facility]/pharmacy #[id number], Partial fill upon patient request if the prescription is for a schedule II opioid drug., 160, c... Start Date: 05/14/21 Status: Ordered omeprazole 20 mg oral enteric coated capsule 1 capsule, By Mouth, Daily, # 90 capsule, 1 Refills, [facility] 01254, 160, cm, 03/30/21 10:47:00 EST, Height, 104.6, [...] tablet, 1 Refills, Maintenance, 03/19/21 17:40:00 EST, [facility]/pharmacy #[id number], 160, cm, 12/04/20 10:52:00 EDT, Height, [...]
--- OUTSIDE RECORDS SUMMARY | 2022-12-30 08:23 | XMS_ITS | Continuity of Care Document ---
Author Name Unknown Organization [facility] Address [address] [place], [place] [address]sarah espana, [address] [place] [address]- Care Team Providers Care Content Designer Name Role Phone Candis CARDENAS, Kaiden Villalta Primary Care Physician En[place] [facility] Date(s): 04/14/22 - 05/14/22 [facility] [address] [place] [address] Drive, [address] [place] [address]- Allergies, Adverse Reactions, Alerts Substance Reaction Severity [...] 8.5 Gm,0 Refills, Maintenance, 12/22/21 10:40:00 EDT, [facility] #[id number], 2 puffs Inhalation Every 4 hours,PRN: NEEDED FOR WHEEZING/cough/shortness... Start Date: 12/22/21 Status: Ordered albuterol 0.083% inhalation solution 3 mL = 2.5 mg, Inhalation, Every 4 hours, PRN for wheezing/cough/shortness of breath, # 25 each, 0 Refills, Maintenance, 10/14/21 22:10:00 EDT, Solution, [facility] #[id number], Partial fill upon patient request if the prescription is for a sched... Start Date: 10/14/21 Status: Ordered [place] Saline Mist 0.65% nasal spray 2 sprays, Nares, Both, 4 times a day, # 1 each, 0 Refills, Maintenance, 02/04/22 13:32:00 EDT, [facility] #[id number], Partial fill upon patient request if the [...] tablet, 0 Refills, Maintenance, 12/27/21 13:43:00 EDT, [facility] #[id number], 153, cm, 10/08/21 13:23:00 EDT, Height, 113.9, kg, 10/08/21 13:23:00EDT, Dry Weight Start Date: 12/27/21 Status: Ordered clonazePAM 0.5 mg oral tablet 1 tablet = 0.5 mg, By Mouth, 4 times a day, PRN Anxiety, Patient on controlled substance contract. Please do NOT fill until 09/23/2020, # 112 tablet, 0 Refills, Maintenance, 11/18/20 21:02:00 EDT, Tablet, [facility]/pharmacy #[id number], Partial fill upon patient... Start Date: 11/18/20 Status: Ordered diclofenac 1% topical gel = 1 Gm, Topically, 4 times a day, FOR PAIN., # 100 Gm, 1 Refills, [facility], 30, APPLY 1 GM TOPICALLY 4 TIMES A DAY FOR PAIN, 153, cm, 06/07/21 11:07:00 EST, Height, 105, kg, 05/31/21 15:15:00 EST, Dry Weight Start Date: 08/05/21 Status: Ordered Dilaudid 2 mg oral tablet 1 tablet = 2 mg, By Mouth, 2 times a day, PRN Pain , Severe, checked masspat, # 56 tablet, 0 Refills, Maintenance, 05/05/22 17:13:00 EST, Tablet, [facility] #[id number], Partial fill upon patient request if the prescription is for a schedule II o... Start Date: 05/05/22 Status: Ordered Estrace Vaginal Cream 0.1 mg/g = 2 Gm, Vaginally, Daily at bedtime, 2g PV daily at bedtime x 2 weeks, then 1g PV 1-3x per week, # 42.5 Gm, 5 Refills, Maintenance, 11/09/21 11:17:00 EDT, [facility] #[id number], Partial fill upon patient request if the prescription is for a sche... Start Date: 11/09/21 Status: Ordered Estradiol Patch 0.0375 mg/24 hours twice weekly transdermal film, extended release See Instructions, APPLY 1 PATCH TOPICALLY TWICE WEEKLY DIRECTED, # 8 patch, 6 Refills, Maintenance, 03/23/22 16:10:00 [facility][id number], 28, APPLY 1 PATCH TOPICALLY TWICE WEEKLY DIRECTED, 153, cm, 01/04/22 13:15:00 EDT, Height, 11... Start Date: 03/23/22 Status: Ordered Flonase 50 mcg/inh nasal spray 1 sprays, Nares, Both, 2 times a day, # 16 Gm, 0 Refills, Maintenance, 04/19/22 14:04:00 EST, [place], [facility] #[id number], Partial fill upon patient request if the prescription is for a schedule II opioid drug., 1 sprays Nares, Both 2 times a d... Start Date: 04/19/22 Status: Ordered fluconazole 150 mg oral tablet 1 tablet = 150 mg, By Mouth, Once, PRN vaginal yeast infection, # 1 tablet, 0 Refills, Soft Stop, 03/15/22 10:42:00 EST, Tablet, [facility] #[id number], Partial fill upon patient request if the prescription is for a schedule II opioid drug., 153,... Start Date: 03/15/22 Status: Ordered gabapentin 800 mg oral tablet 1 tablet, By Mouth, 4 times a day, # 360 tablet, 1 Refills, Maintenance, 04/19/22 12:59:00 EST, [facility] #[id number], 153, cm, 01/04/22 13:15:00 EDT, Height, 113.9, [...] capsule, 1 Refills, Maintenance, 12/08/21 10:10:00 EDT, [facility] #[id number], 153, cm, 10/08/21 13:23:00 EDT, Height, 113.9,kg, [...] 1 Refills, Maintenance, 04/28/22 13:51:00 EST, Tablet, [facility] #[id number], Partial fill upon patient request if the prescription is for a schedule II opioid drug., 153, cm... Start Date: 04/28/22 Status: Ordered lidocaine 4% topical cream 1 application, Topically, 3 times a day, PRN pain of forearms, # 30 Gm, 1 Refills, Acute 06/23/22 16:24:00 EST, 04/25/22 16:23:00 EST, Cream, [facility] #[id number], Partial fill upon patient request if the prescription is for a schedule II opioi... Start Date: 04/25/22 Stop Date: 06/23/22 Status: Ordered meloxicam 15 mg oral tablet 1/2 TO 1 TABLET, By Mouth, Daily, PRN NEEDED FOR MODERATE PAIN, # 30 tablet, 5 Refills, Maintenance, 01/10/22 20:40:00 EDT, [facility] #[id number], 153, cm, 01/04/22 13:15:00 EDT, Height, 113.9, [...] capsule, 1 Refills, Maintenance, 04/19/22 12:41:00 EST, [facility] #[id number], 153, cm, 01/04/22 13:15:00 EDT, Height, 113.9, kg, 10/08/21 13:23:00 EDT, Dry Weight Start Date: 04/19/22 Status: Ordered ondansetron 4 mg oral tablet 1 tablet, By Mouth, Every 8 hours, PRN NEEDED FOR NAUSEA OR VOMITING, # 30 tablet, 1 Refills, Maintenance, 04/14/22 21:15:00 EST, [facility] #[id number], 153, cm, 01/04/22 13:15:00 EDT, Height, 113.9, kg, 10/08/21 13:23:00 EDT, Dry Weight Start Date: 04/14/22 Status: Ordered oxybutynin 5 mg oral tablet 1 tablet, By Mouth, 3 times a day, # 270 tablet, 1 Refills, 01/10/22 10:29:00 EDT, [facility] #[id number], 153, cm, 01/04/22 13:15:00 EDT, Height, 113.9, [...] 04/14/22 21:16:00 EST, Route to Pharmacy Electronically, [facility] #[id number], Partial fill upon patient request if the... [...] Personnel Name: Candis CARDENAS, Kaiden Villalta Position: [facility] Primary Care Physician Member Role: PCP Address: Address: [address] [place] [address] Adult & [place] [address]- Care Team Related Persons Name: RODOLFO SHEIKH Address: home [address] [facility] [address] [place] [address] Name: CHIARA TEE Address: home [address] [place] [address] [place] [id number]
--- OUTSIDE RECORDS SUMMARY | 2022-12-30 08:23 | XMS_ITS | Continuity of Care Document ---
Author Name Unknown Organization [facility] Address [address] [place] [address]- Care Team Providers Care Electroformer Name Role Phone Candis CARDENAS, Kaiden Villalta Primary Care Physician [place] [facility] [place] [id number] Date(s): 04/29/22 - 05/29/22 [facility] [address] [place], [place] [address] Attending Physician: Jc Guzmán Admitting [...] 8.5 Gm,0 Refills, Maintenance, 12/22/21 10:40:00 EDT, [facility] #[id number], 2 puffs Inhalation Every 4 hours,PRN: NEEDED FOR WHEEZING/cough/shortness... Start Date: 12/22/21 Status: Ordered albuterol 0.083% inhalation solution 3 mL = 2.5 mg, Inhalation, Every 4 hours, PRN for wheezing/cough/shortness of breath, # 25 each, 0 Refills, Maintenance, 10/14/21 22:10:00 EDT, Solution, [facility] #[id number], Partial fill upon patient request if the prescription is for a sched... Start Date: 10/14/21 Status: Ordered [place] Saline Mist 0.65% nasal spray 2 sprays, Nares, Both, 4 times a day, # 1 each, 0 Refills, Maintenance, 02/04/22 13:32:00 EDT, [facility] #[id number], Partial fill upon patient request if the [...] tablet, 0 Refills, Maintenance, 12/27/21 13:43:00 EDT, [facility] #[id number], 153, cm, 10/08/21 13:23:00 EDT, Height, 113.9, kg, 10/08/21 13:23:00EDT, Dry Weight Start Date: 12/27/21 Status: Ordered clonazePAM 0.5 mg oral tablet 1 tablet = 0.5 mg, By Mouth, 4 times a day, PRN Anxiety, Patient on controlled substance contract. Please do NOT fill until 09/23/2020, # 112 tablet, 0 Refills, Maintenance, 11/18/20 21:02:00 EDT, [facility], [id number], Partial fill upon patient... Start Date: 11/18/20 Status: Ordered diclofenac 1% topical gel = 1 Gm, Topically, 4 times a day, FOR PAIN., # 100 Gm, 1 Refills, [facility], 30, APPLY 1 GM TOPICALLY 4 TIMES A DAY FOR PAIN, 153, cm, 06/07/21 11:07:00 EST, Height, 105, kg, 05/31/21 15:15:00 EST, Dry Weight Start Date: 08/05/21 Status: Ordered Dilaudid 2 mg oral tablet 1 tablet = 2 mg, By Mouth, 2 times a day, PRN Pain , Severe, checked masspat, # 56 tablet, 0 Refills, Maintenance, 05/05/22 17:13:00 EST, Tablet, [facility] #[id number], Partial fill upon patient request if the prescription is for a schedule II o... Start Date: 05/05/22 Status: Ordered Estrace Vaginal Cream 0.1 mg/g = 2 Gm, Vaginally, Daily at bedtime, 2g PV daily at bedtime x 2 weeks, then 1g PV 1-3x per week, # 42.5 Gm, 5 Refills, Maintenance, 11/09/21 11:17:00 EDT, [facility] #[id number], Partial fill upon patient request if the prescription is for a sche... Start Date: 11/09/21 Status: Ordered Estradiol Patch 0.0375 mg/24 hours twice weekly transdermal film, extended release See Instructions, APPLY 1 PATCH TOPICALLY TWICE WEEKLY DIRECTED, # 8 patch, 6 Refills, Maintenance, 03/23/22 16:10:00 EST, [facility] #[id number], 28, APPLY 1 PATCH TOPICALLY TWICE WEEKLY DIRECTED, 153, cm, 01/04/22 13:15:00 EDT, Height, 11... Start Date: 03/23/22 Status: Ordered fluconazole 150 mg oral tablet 1 tablet = 150 mg, By Mouth, Once, PRN vaginal yeast infection, # 1 tablet, 0 Refills, Soft Stop, 03/15/22 10:42:00 EST, Tablet, [facility] #[id number], Partial fill upon patient request if the prescription is for a schedule II opioid drug., 153,... Start Date: 03/15/22 Status: Ordered fluticasone 50 mcg/inh nasal spray See Instructions, SHAKE LIQUID AND USE 1 SPRAY IN EACH NOSTRIL TWICE DAILY, # 16 Gm, 1 Refills, Maintenance, 05/18/22 13:57:00 EST, [facility] #[id number], 30, SHAKE LIQUID AND USE 1 SPRAY IN EACH NOSTRIL TWICE DAILY, 153, cm, 04/25/22 16:23:00 E... Start Date: 05/18/22 Status: Ordered gabapentin 800 mg oral tablet 1 tablet, By Mouth, 4 times a day, # 360 tablet, 1 Refills, Maintenance, 04/19/22 12:59:00 EST, [facility] #[id number], 153, cm, 01/04/22 13:15:00 EDT, Height, 113.9, [...] capsule, 1 Refills, Maintenance, 05/20/22 12:57:00 EST, [facility] #[id number], 153, cm, 04/25/22 16:23:00 EST, Height, 109, [...] 1 Refills, Maintenance, 04/28/22 13:51:00 EST, Tablet, [facility] #[id number], Partial fill upon patient request if the prescription is for a schedule II opioid drug., 153, cm... Start Date: 04/28/22 Status: Ordered lidocaine 4% topical cream 1 application, Topically, 3 times a day, PRN pain of forearms, # 30 Gm, 1 Refills, Acute 06/23/22 16:24:00 EST, 04/25/22 16:23:00 EST, Cream, [facility] #[id number], Partial fill upon patient request if the prescription is for a schedule II opioi... Start Date: 04/25/22 Stop Date: 06/23/22 Status: Ordered meloxicam 15 mg oral tablet 1/2 TO 1 TABLET, By Mouth, Daily, PRN NEEDED FOR MODERATE PAIN, # 30 tablet, 5 Refills, Maintenance, 01/10/22 20:40:00 EDT, [facility] #[id number], 153, cm, 01/04/22 13:15:00 EDT, Height, 113.9, [...] capsule, 1 Refills, Maintenance, 04/19/22 12:41:00 EST, [facility] #[id number], 153, cm, 01/04/22 13:15:00 EDT, Height, 113.9, kg, 10/08/21 13:23:00 EDT, Dry Weight Start Date: 04/19/22 Status: Ordered ondansetron 4 mg oral tablet 1 tablet, By Mouth, Every 8 hours, PRN NEEDED FOR NAUSEA OR VOMITING, # 30 tablet, 1 Refills, Maintenance, 04/14/22 21:15:00 EST, [facility] #[id number], 153, cm, 01/04/22 13:15:00 EDT, Height, 113.9, kg, 10/08/21 13:23:00 EDT, Dry Weight Start Date: 04/14/22 Status: Ordered oxybutynin 5 mg oral tablet 1 tablet, By Mouth, 3 times a day, # 270 tablet, 1 Refills, 01/10/22 10:29:00 EDT, [facility] #[id number], 153, cm, 01/04/22 13:15:00 EDT, Height, 113.9, [...] 04/14/22 21:16:00 EST, Route to Pharmacy Electronically, [facility] #[id number], Partial fill upon patient request if the... [...] 11/09/21 Sex Note * Event Display: Non Lab Results Authored Date: * Event Display: EKG Non Authored Date: * Event Display: Non Lab Results Authored Date: Patient Care team information Care Team Personnel Name: Kaiden Chirinos MD Position: [facility] Primary Care Physician Member Role: PCP Address: Address: [address] [place] [address] Adult & Pediatric Medicine [place], [place] [address] Care Team Related Persons Name: RODOLFO SHEIKH Address: home [address] [facility] [address] [place] [address] Name: CHIARA TEE Address: home [address] [place] [address]
--- OUTSIDE RECORDS SUMMARY | 2022-12-30 08:23 | XMS_ITS | Continuity of Care Document ---
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 Start Date: 09/28/21 Status: Ordered albuterol 0.083% inhalation solution 3 mL = 2.5 mg, Inhalation, Every 4 hours, PRN for wheezing/cough/shortness of breath, # 25 each, 0 Refills, Maintenance, 10/14/21 22:10:00 EDT, Solution, [facility] #[id number], Partial fill upon patient request if the prescription is for a sched... Start Date: 10/14/21 Status: Ordered Azithromycin 5 Day Dose Pack 250 mg oral tablet See Instructions, Take 2 tablets on day one. Take 1 tablet daily on Days 2-5., # 6 tablet, 0 Refills, Maintenance, 11/18/21 11:47:00 EDT, Tablet, [facility] #[id number], Partial fill upon patient request if the prescription is for a schedule II... Start Date: 11/18/21 Status: Ordered benzonatate 100 mg oral capsule 2 capsule, By Mouth, 3 times a day, PRN NEEDED FOR COUGH, # 30 capsule, 1 Refills, Physician Stop 11/10/22 14:46:00 EDT, 03/19/22 17:38:00 EST, [facility] #[id number], 153, cm, 10/08/21 13:23:00 EDT, Height, 113.9, kg, 10/08/21 13:23:00 EDT, D... Start Date: 03/19/22 Stop Date: 11/10/22 Status: Ordered budesonide 1 mg/2 mL inhalation suspension 2 mL = 1 mg, Neb, 2 times a day, rinse mouth out after use, # 120 mL, 1 Refills, Maintenance, 10/25/21 18:30:00 EDT, Suspension, [facility] #62614, Partial fill upon patient request if the [...] FOR PAIN., # 100 Gm, 1 Refills, [facility], 30, APPLY 1 GM TOPICALLY 4 TIMES A DAY FOR PAIN, 153, cm, 06/07/21 11:07:00 EST, Height, 105, kg, 05/31/21 15:15:00 EST, Dry Weight Start Date: 08/05/21 Status: Ordered Dilaudid 2 mg oral tablet 1 tablet = 2 mg, By Mouth, 2 times a day, PRN Pain , Severe, checked masspat, # 28 tablet, 0 Refills, Maintenance, 11/23/21 16:09:00 EDT, Tablet, [facility] #10205, Partial fill upon patient request if the prescription is for a schedule II o... Start Date: 11/23/21 Status: Ordered Estrace Vaginal Cream 0.1 mg/g = 2 Gm, Vaginally, Daily at bedtime, 2g PV daily at bedtime x 2 weeks, then 1g PV 1-3x per week, # 42.5 Gm, 5 Refills, Maintenance, 11/09/21 11:17:00 EDT, [facility] #67519, Partial fill upon patient request if the prescription is for a sche... Start Date: 11/09/21 Status: Ordered gabapentin 800 mg oral tablet See Instructions, TAKE 1 TABLET BY MOUTH FOUR TIMES DAILY, # 360 tablet, 0 Refills, [facility] #06652, 153, cm, 10/08/21 13:23:00 EDT, Height, 113.9, [...] capsule, 1 Refills, Maintenance, 09/28/21 16:58:00 EDT, [facility] #[id number], 153, cm, 08/10/21 11:19:00 EDT, Height, 105, [...] 1 Refills, Maintenance, 07/30/21 12:25:00 EDT, Tablet, [facility] #86258, Partial fill upon patient request if the prescription is for a schedule II opioid drug... Start Date: 07/30/21 Status: Ordered levothyroxine 0.1 mg oral tablet 1 tablet = 100 mcg, By Mouth, Daily, dose increase, # 90 tablet, 0 Refills, Maintenance, 11/01/21 16:08:00 EDT, [facility] #56345, Please discontinue 88ug, 153, cm, 10/08/21 13:23:00 [...] 1 Refills, Maintenance, 11/30/21 15:44:00 EDT, Tablet, [facility] #74349, [place]... Start Date: 11/30/21 Status: Ordered lidocaine 2% topical gel with applicator 5 mL = 0.1 Gm, Topically, 2 times a day, PRN Pain , Moderate, # 60 mL, 2 Refills, Soft Stop, 09/24/21 16:43:00 EDT, Gel, [facility] #[id number], Partial fill upon patient request if the prescription is for a schedule II opioid drug., 153, cm, ... Start Date: 09/24/21 Status: Ordered meloxicam 15 mg oral tablet 1/2 TO 1 TABLET, By Mouth, Daily, PRN NEEDED FOR MODERATE PAIN, # 30 tablet, 1 Refills, :04:00 EDT, [facility] #85691, 153, cm, 10/08/21 13:23:00 EDT, Height, 113.9, [...] 90 capsule, 0 Refills, 09/27/21 14:31:00 EDT, [facility] #[id number], 153, cm, 08/10/21 11:19:00 EDT, Height, 105, kg, 05/31/21 15:15:00 EST, Dry Weight Start Date: 09/27/21 Status: Ordered ondansetron 4 mg oral tablet 1 tablet = 4 mg, By Mouth, Every 8 hours, PRN Nausea & Vomiting, # 30 tablet, 1 Refills, Maintenance, 11/10/21 14:47:00 EDT, [facility] #[id number], 153, cm, 10/08/21 13:23:00 EDT, Height, 113.9, kg, 10/08/21 13:23:00 EDT, Dry Weight Start Date: 11/10/21 Status: Ordered oxybutynin 5 mg oral tablet 1 tablet, By Mouth, 3 times a day, # 270 tablet, 1 Refills, [facility], 153, cm, 08/10/21 11:19:00 EDT, Height, 105, [...] 12/03/21 15:43:00 EDT, 11/26/21 15:43:00 EDT, Tablet, [facility] #[id number], Partial fill upon patient request if the prescription is for... Start Date: 11/26/21 Stop Date: 12/03/21 Status: Ordered ZyrTEC 10 mg oral tablet 1 tablet = 10 mg, By Mouth, Daily, # 90 tablet, 1 Refills, Maintenance, 07/30/21 12:22:00 EDT, Tablet, [facility] #[id number], Partial fill upon patient request if the [...]
--- OUTSIDE RECORDS SUMMARY | 2022-12-30 08:23 | XMS_ITS | Continuity of Care Document ---
Author Name Unknown Organization [facility] Address [address] [place] [address]- Care Team Providers Care Emergency Doctor Name Role Phone Candis CARDENAS, Kaiden Villalta Primary Care Physician [phone] Encounter [facility] Date(s): 01/02/21 - 02/01/21 [facility] [address] [place] [address]- [place] Allergies, Adverse Reactions, Alerts Substance Reaction [...] 16:08:00 EDT, Route to Pharmacy Electronically, [facility]/pharmacy #[id number], Partial fill upon patient request if the prescription is for a schedule II... Start Date: 12/24/20 Status: Ordered baclofen 10 mg oral tablet 10 mg, 1, tablet, By Mouth, 3 times a day, PRN, # 30 tablet, Refills 0, Tot. Refills 0, Maintenance, Spasm, 01/31/19 21:47:23 EDT, Route to Pharmacy Electronically, [id number], [facility]/pharmacy #[id number] Start Date: 01/31/19 Stop Date: 02/14/19 Status: Ordered benzonatate 100 mg oral capsule 2 capsule, By Mouth, 3 times a day, PRN NEEDED FOR COUGH, # 30 capsule, 0 Refills, [facility] 36698, 160, cm, 12/04/20 10:52:00 EDT, Height, 104.6, kg, 12/04/20 10:52:00 EDT, Dry Weight Start Date: 01/22/21 Status: Ordered clonazePAM 0.5 mg oral tablet 1 tablet = 0.5 mg, By Mouth, 4 times a day, PRN Anxiety, Patient on controlled substance contract. Please do NOT fill until 09/23/2020, # 112 tablet, 0 Refills, Maintenance, 11/18/20 21:02:00 EDT, Tablet, [facility]/pharmacy #[id number], Partial fill upon patient... Start Date: 11/18/20 Status: Ordered Famotidine 0 Refills, Maintenance, 04/07/19 16:11:00 EST Start Date: 04/07/19 Status: Ordered gabapentin 800 mg oral tablet 1 tablet = 800 mg, By Mouth, 4 times a day, # 360 tablet, 1 Refills, Maintenance, 11/09/20 23:47:00EDT, Tablet, [facility]/pharmacy #[id number], Partial fill upon patient request if [...] Refills, Maintenance, 11/05/20 11:43:00 EDT, Tablet, [facility]/pharmacy #[id number], Partial fill upon patient request if the prescription is for a schedule II opioid drug., 160, cm, 10/30/20 8:2... Start Date: 11/05/20 Status: Ordered meloxicam 15 mg oral tablet 1/2 TO 1 TABLET, By Mouth, Daily, PRN NEEDED FOR MODERATE PAIN, # 30 tablet, 1 Refills, [facility] 08946, 160, cm, 12/04/20 10:52:00 EDT, Height, 104.6, kg, 12/04/20 10:52:00 EDT, Dry Weight Start Date: 01/22/21 Status: Ordered omeprazole 20 mg oral enteric coated capsule 1 capsule, By Mouth, Daily, # 90 capsule, 0 Refills, Maintenance, 01/14/21 13:42:00 EDT, [facility]/pharmacy #[id number], 160, cm, 12/04/20 10:52:00 EDT, Height, 104.6, kg, 12/04/20 10:52:00 EDT, Dry Weight Start Date: 01/14/21 Status: Ordered oxybutynin 5 mg oral tablet 1 tablet, By Mouth, 2 times a day, # 180 tablet, 1 Refills, Maintenance, 12/24/20 16:08:00 EDT, [facility]/pharmacy #[id number], [...]
--- OUTSIDE RECORDS SUMMARY | 2022-12-30 08:23 | XMS_ITS | Continuity of Care Document ---
Author Name Unknown Organization [facility] Address [address] [place] [address]- Care Team Providers Care Edi Developer Name Role Phone Candis CARDENAS, Kaiden Villalta [id number] 06/29[facility] - 07/29/21 [facility] [address] [place], [place] [address] Allergies, Adverse [...] # 8.5 each, 0 Refills, [facility], 20, INHALE 2 PUFFS BY MOUTH EVERY 4 HOURS NEEDED FOR WHEEZING, 160, cm, 03/30/21 10:47:00 EST, Height, 104.6, kg, 12/04/20 10:52:00 EDT, Dry Weight Start Date: 04/28/21 Status: Ordered amitriptyline 10 mg oral tablet 10 mg, 1, tablet, By Mouth, Daily at bedtime, # 90 tablet, Refills 1, Tot. Refills 1, Maintenance, 12/24/20 16:08:00 EDT, Route to Pharmacy Electronically, [facility]/pharmacy #[id number], Partial fill upon patient request if the prescription is for a schedule II... Start Date: 12/24/20 Status: Ordered baclofen 10 mg oral tablet 10 mg, 1, tablet, By Mouth, 3 times a day, PRN, # 30 tablet, Refills 0, Tot. Refills 0, Maintenance, Spasm, 01/31/19 21:47:23 EDT, Route to Pharmacy Electronically, [id number], [facility]/pharmacy #[id number] Start Date: 01/31/19 Stop Date: 02/14/19 Status: Ordered benzonatate 100 mg oral capsule 2 capsule, By Mouth, 3 times a day, PRN NEEDED FOR COUGH, # 30 capsule, 1 Refills, Physician Stop 03/19/22 17:38:00 EST, 02/19/22 16:55:00 EDT, [facility]/pharmacy #[id number], 160, cm, 12/04/20 10:52:00 EDT, Height, 104.6, kg, 12/04/20 10:52:00 EDT, Dry Weight Start Date: 02/19/22 Stop Date: 03/19/22 Status: Ordered benzonatate 100 mg oral capsule 2 capsule, By Mouth, 3 times a day, PRN NEEDED FOR COUGH, # 30 capsule, 1 Refills, Physician Stop 02/19/22 16:55:00 EDT, 02/19/21 16:54:00 EDT, [facility]/pharmacy #[id number], 160, cm, 12/04/20 [...] 0 Refills, Maintenance, 07/21/21 12:23:00 EDT, Tablet, [facility] #[id number], Partial fill upon patient request if the prescription is for a schedule II opioid drug., 153,... Start Date: 07/21/21 Status: Ordered Famotidine 0 Refills, Maintenance, 04/07/19 16:11:00 EST Start Date: 04/07/19 Status: Ordered gabapentin 800 mg oral tablet 1 tablet, By Mouth, 4 times a day, # 360 tablet, 1 Refills, [facility], 160, cm, 03/30/21 10:47:00 EST, Height, 104.6, [...] 1 Refills, Maintenance, 06/07/21 19:08:00 EST, Capsule, [facility]/pharmacy #09, Partial fill upon patient request if the [...] 1 Refills, Maintenance, 05/14/21 15:23:00 EST, Tablet, [facility]/pharmacy #[id number], Partial fill upon patient request if the prescription is for a schedule II opioid drug., 160, c... Start Date: 05/14/21 Status: Ordered omeprazole 20 mg oral enteric coated capsule 1 capsule, By Mouth, Daily, # 90 capsule, 1 Refills, [facility], 160, cm, 03/30/21 10:47:00 EST, Height, 104.6, [...]
--- OUTSIDE RECORDS SUMMARY | 2022-12-30 08:23 | XMS_ITS | Continuity of Care Document ---
Author Name Unknown Organization 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 [address] [place], [place] [address] Allergies, Adverse Reactions, Alerts Substance [...] 12/24/20 16:08:00 EDT, Route to Pharmacy Electronically, [facility]/pharmacy #[id number], Partial fill upon patient request if the prescription is for a schedule II... Start Date: 12/24/20 Status: Ordered baclofen 10 mg oral tablet 10 mg, 1, tablet, By Mouth, 3 times a day, PRN, # 30 tablet, Refills 0, Tot. Refills 0, Maintenance, Spasm, 01/31/19 21:47:23 EDT, Route to Pharmacy Electronically, [id number], [facility]/pharmacy #[id number] Start Date: 01/31/19 Stop Date: 02/14/19 Status: Ordered benzonatate 100 mg oral capsule 2 capsule, By Mouth, 3 times a day, PRN NEEDED FOR COUGH, # 30 capsule, 1 Refills, Physician Stop 02/19/22 16:55:00 EDT, 02/19/21 16:54:00 EDT, [facility]/pharmacy #[id number], 160, cm, 12/04/20 10:52:00 EDT, Height, 104.6, kg, 12/04/20 10:52:00 EDT, Dry Weight Start Date: 02/19/21 Stop Date: 02/19/22 Status: Ordered clonazePAM 0.5 mg oral tablet 1 tablet = 0.5 mg, By Mouth, 4 times a day, PRN Anxiety, Patient on controlled substance contract. Please do NOT fill until 09/23/2020, # 112 tablet, 0 Refills, Maintenance, 11/18/20 21:02:00 EDT, Tablet, [facility]/pharmacy #[id number], Partial fill upon patient... Start Date: 11/18/20 Status: Ordered Famotidine 0 Refills, Maintenance, 04/07/19 16:11:00 EST Start Date: 04/07/19 Status: Ordered gabapentin 800 mg oral tablet 1 tablet = 800 mg, By Mouth, 4 times a day, # 360 tablet, 1 Refills, Maintenance, 11/09/20 23:47:00EDT, Tablet, [facility]/pharmacy #[id number], Partial fill upon patient request [...] 1 Refills, Maintenance, 02/25/21 8:28:00 EST, Capsule, [facility]/pharmacy #0983, Partial fill upon patient request if the [...] 1 Refills, Maintenance, 11/05/20 11:43:00 EDT, Tablet, [facility]/pharmacy #[id number], Partial fill upon patient request if the prescription is for a schedule II opioid drug., 160, cm, 10/30/20 8:2... Start Date: 11/05/20 Status: Ordered meloxicam 15 mg oral tablet 1/2 TO 1 TABLET, By Mouth, Daily, PRN NEEDED FOR MODERATE PAIN, # 30 tablet, 1 Refills, [facility], 160, cm, 12/04/20 10:52:00 EDT, Height, 104.6, kg, 12/04/20 10:52:00 EDT, Dry Weight Start Date: 01/22/21 Status: Ordered omeprazole 20 mg oral enteric coated capsule 1 capsule, By Mouth, Daily, # 90 capsule, 0 Refills, Maintenance, 01/14/21 13:42:00 EDT, [facility]/pharmacy #0969, 160, cm, 12/04/20 10:52:00 EDT, Height, 104.6, kg, 12/04/20 10:52:00 EDT, Dry Weight Start Date: 01/14/21 Status: Ordered ondansetron 4 mg oral tablet See Instructions, TAKE 1 TABLET BY MOUTH EVERY 8 HOURS NEEDED FOR NAUSEA AND VOMITING, # 15 tablet, 0 Refills, [facility], 160, cm, 12/04/20 10:52:00 EDT, Height, 104.6, [...] 0 Refills, Maintenance, 11/16/20 8:39:00 EDT, Aerosol, [facility]/pharmacy #0969, Partial fill upon patient request [...] 1 Refills, Maintenance, 10/30/20 8:45:00 EDT, Tablet, [facility]/pharmacy #[id number], Partial fill upon patient reques... Start Date: 10/30/20 Status: Ordered traZODone 150 mg oral tablet 1 tablet = 150 mg, By Mouth, Daily at bedtime, dose increase, # 90 tablet, 1 Refills, Maintenance, 11/03/20 13:28:00 EDT, Tablet, [facility]/pharmacy #1509, Partial fill upon patient request if the [...]
--- OUTSIDE RECORDS SUMMARY | 2022-12-30 08:23 | XMS_ITS | Continuity of Care Document ---
Author Name Unknown Organization [facility] Address [address] [place] [address]- Care Team Providers Care Digitizer Name Role Phone Candis CARDENAS, Kaiden Villalta Primary Care Physician [phone] Encounter [facility] Date(s): 09/28/21 - 10/28/21 [facility] [address] [place], [place] [address] Allergies, Adverse Reactions, [...] 8.5 Gm,0 Refills, Maintenance, 09/28/21 16:57:00 EDT, ? [facility] #[id number], 2 puffs Inhalation Every 4 hours,PRN: NEEDED FOR WHEEZING/cough/shortness... Start Date: 09/28/21 Status: Ordered albuterol 0.083% inhalation solution 3 mL = 2.5 mg, Inhalation, Every 4 hours, PRN for wheezing/cough/shortness of breath, # 25 each, 0 Refills, Maintenance, 10/14/21 22:10:00 EDT, Solution, [facility] #[id number], Partial fill upon patient request if the prescription is for a sched... Start Date: 10/14/21 Status: Ordered benzonatate 100 mg oral capsule 2 capsule, By Mouth, 3 times a day, PRN NEEDED FOR COUGH, # 30 capsule, 1 Refills, Physician Stop 03/19/22 17:38:00 EST, 02/19/22 16:55:00 EDT, [facility]/pharmacy #[id number], 160, cm, 12/04/20 10:52:00 EDT, Height, 104.6, kg, 12/04/20 10:52:00 EDT, Dry Weight Start Date: 02/19/22 Stop Date: 03/19/22 Status: Ordered benzonatate 100 mg oral capsule 2 capsule, By Mouth, 3 times a day, PRN NEEDED FOR COUGH, # 30 capsule, 1 Refills, Maintenance, 09/29/21 15:56:00 EDT, [facility] #[id number], 153, cm, 08/10/21 11:19:00 EDT, Height, 105, kg,05/31/21 15:15:00 EST, Dry Weight Start Date: 09/29/21 Status: Ordered budesonide 1 mg/2 mL inhalation suspension 2 mL = 1 mg, Neb, 2 times a day, rinse mouth out after use, # 120 mL, 1 Refills, Maintenance, 10/25/21 18:30:00 EDT, Suspension, [facility] #[id number], Partial fill upon patient request if the [...] # 100 Gm, 1 Refills, [facility], 30, APPLY 1 GM TOPICALLY 4 TIMES A DAY FOR PAIN, 153, cm, 06/07/21 11:07:00 EST, Height, 105, kg, 05/31/21 15:15:00 EST, Dry Weight Start Date: 08/05/21 Status: Ordered Dilaudid 2 mg oral tablet 1 tablet = 2 mg, By Mouth, 2 times a day, PRN Pain , Severe, checked masspat, # 28 tablet, 0 Refills, Maintenance, 10/25/21 21:55:00 EDT, Tablet, ? [facility] #[id number], Partial fill upon patient request if the prescription is for a schedule II o... Start Date: 10/25/21 Status: Ordered Famotidine 0 Refills, Maintenance, 04/07/19 16:11:00 EST Start Date: 04/07/19 Status: Ordered fluconazole 150 mg oral tablet 1 tablet = 150 mg, By Mouth, Once, # 1 tablet, 0 Refills, Soft Stop, 09/21/21 11:15:00 EDT, Tablet,? [facility] #81758, Partial fill upon patient request if the prescription is for a schedule II opioid drug., 153, cm, 08/10/21 11:19:00 EDT, H... Start Date: 09/21/21 Status: Ordered gabapentin 800 mg oral tablet See Instructions, TAKE 1 TABLET BY MOUTH FOUR TIMES DAILY, # 360 tablet, 0 Refills, [facility] #[id number], 153, cm, 10/08/21 13:23:00 EDT, Height, 113.9, [...] capsule, 1 Refills, Maintenance, 09/28/21 16:58:00 EDT, [facility] #[id number], 153, cm, 08/10/21 11:19:00 EDT, Height, 105, [...] 1 Refills, Maintenance, 07/30/21 12:25:00 EDT, Tablet, [facility] #[id number], Partial fill upon patient request if the prescription is for a schedule II opioid drug... Start Date: 07/30/21 Status: Ordered lidocaine 2% topical gel with applicator 5 mL = 0.1 Gm, Topically, 2 times a day, PRN Pain , Moderate, # 60 mL, 2 Refills, Soft Stop, 09/24/21 16:43:00 EDT, Gel, [facility] #65475, Partial fill upon patient request if the [...] 10/30/21 18:35:00 EDT, 10/25/21 18:35:00 EDT, Capsule, [facility] #[id number], Partial fill upon patient request if the prescription is for a sched... Start Date: 10/25/21 Stop Date: 10/30/21 Status: Ordered omeprazole 20 mg oral enteric coated capsule 1 capsule, By Mouth, Daily, # 90 capsule, 0 Refills, 09/27/21 14:31:00 EDT, [facility] #26292, 153, cm, 08/10/21 11:19:00 EDT, Height, 105, kg, 05/31/21 15:15:00 EST, Dry Weight Start Date: 09/27/21 Status: Ordered ondansetron 4 mg oral tablet 1 tablet = 4 mg, By Mouth, Every 8 hours, PRN Nausea & Vomiting, # 30 tablet, 1 Refills, Maintenance, 09/28/21 16:56:00 EDT, [facility] #59369, 153, cm, 08/10/21 11:19:00 EDT, Height, 105, kg, 05/31/21 15:15:00 EST, Dry Weight Start Date: 09/28/21 Status: Ordered oxybutynin 5 mg oral tablet 1 tablet, By Mouth, 3 times a day, # 270 tablet, 1 Refills, [facility], 153, cm, 08/10/21 11:19:00 EDT, Height, 105, [...] 1 Refills, Maintenance, 07/30/21 12:22:00 EDT, Tablet, ? [facility] #36202, Partial fill upon patient request if the [...]
--- OUTSIDE RECORDS SUMMARY | 2022-12-30 08:23 | XMS_ITS | Continuity of Care Document ---
Author Name Unknown Organization [facility] Address [address] [place] [address]- Care Team Providers Care Consultant In Ergonomics And Safety Name Role Phone Kaiden Chirinos MD Primary Care Physician [facility] [facility] Date[place]s): 10/28/20 - 11/27/20 [facility] [address] [place], [place] [address] Allergies, Adverse Reactions, Alerts [...] 09/22/20 16:39:00 EDT, Route to Pharmacy Electronically, [facility]/pharmacy #[id number], Partial fill upon patient request if the prescription is for a schedule II... Start Date: 09/22/20 Status: Ordered baclofen 10 mg oral tablet 10 mg, 1, tablet, By Mouth, 3 times a day, PRN, # 30 tablet, Refills 0, Tot. Refills 0, Maintenance, Spasm, 01/31/19 21:47:23 EDT, Route to Pharmacy Electronically, [id number], [facility]/pharmacy #[id number] Start Date: 01/31/19 [...] tablet, 1 Refills, Maintenance, 11/09/20 23:47:00EDT, Tablet, [facility]/pharmacy #0969, Partial fill [...] 1 Refills, Maintenance, 11/05/20 11:43:00 EDT, Tablet, [facility]/pharmacy #[id number], Partial [...] Refills, Maintenance, 11/27/20 17:20:00 EDT, [facility], 160, cm, 10/30/20 8:28:00 EDT, Height, 105.5, [...] 1 Refills, Maintenance, 11/03/20 13:28:00 EDT, Tablet, [facility]/pharmacy #0922, Partial fill upon patient request if the [...]
--- OUTSIDE RECORDS SUMMARY | 2022-12-30 08:24 | XMS_ITS | Continuity of Care Document ---
Author Name Unknown Organization [facility] Address [address] [place] [address]- Care Team Providers Care Certified Nursing Assistant Instructor Name Role Phone Candis CARDENAS, Kaiden Villalta Primary Care Physician [phone] En[facility] Date(s): 02/12/21 - 03/14/21 [facility] [address] [place], [place] [address] Allergies, Adverse Reactions, Alerts Substance [...] EDT, Route to Pharmacy Electronically, [facility]/pharmacy #[id number], Partial fill upon patient request if the prescription is for a schedule II... Start Date: 12/24/20 Status: Ordered baclofen 10 mg oral tablet 10 mg, 1, tablet, By Mouth, 3 times a day, PRN, # 30 tablet, Refills 0, Tot. Refills 0, Maintenance, Spasm, 01/31/19 21:47:23 EDT, Route to Pharmacy Electronically, [id number], [facility]/pharmacy #0969 Start Date: 01/31/19 Stop [...] 1 Refills, Maintenance, 02/25/21 8:28:00 EST, Capsule, [facility]/pharmacy #0905, Partial fill upon patient request [...] 1 Refills, Maintenance, 11/05/20 11:43:00 EDT, Tablet, [facility]/pharmacy #0969, Partial fill upon patient request if the prescription is for a schedule II opioid drug., 160, cm, 10/30/20 8:2... Start Date: 11/05/20 Status: Ordered meloxicam 15 mg oral tablet 1/2 TO 1 TABLET, By Mouth, Daily, PRN NEEDED FOR MODERATE PAIN, # 30 tablet, 1 Refills, [facility], 160, cm, 12/04/20 10:52:00 EDT, Height, 104.6, [...] # 15 tablet, 0 Refills, [facility], 160, cm, 12/04/20 10:52:00 EDT, Height, 104.6, [...] Refills, Maintenance, 11/03/20 13:28:00 EDT, Tablet, [facility], Partial fill upon patient request if the [...]
--- OUTSIDE RECORDS SUMMARY | 2022-12-30 08:24 | XMS_ITS | Continuity of Care Document ---
Author Name Unknown Organization [facility] Address [address] [place] [id number]- Care Team Providers Care Racking Technician Name Role Phone Kaiden Chirinos MD Primary Care Physician Encounter [facility] Date(s): 12/18/19 - 01/17/20 [facility] [address] [place] [address]- [facility] Attending Physician: Jc Guzmán Admitting Physician: Admtr, Ar8 Referring Physician: Admtr, Ar8 Allergies, Adverse Reactions, Alerts Substance Reaction Severity Status morphine Active Adhesive Bandage Active Percocet 7.5/325 Active Medications baclofen 10 mg oral tablet 10 mg, 1, tablet, By Mouth, 3 times a day, PRN, # 30 tablet, Refills 0, Tot. Refills 0, Maintenance, Spasm, 01/31/19 21:47:23 EDT, Route to Pharmacy Electronically, [id number], [facility]/pharmacy #[id number] Start Date: 01/31/19 Stop [...]
--- OUTSIDE RECORDS SUMMARY | 2022-12-30 08:24 | XMS_ITS | Continuity of Care Document ---
Author Name Unknown Organization [facility] Address [address] [place] [address]- Care Team Providers Care Play Therapist Name Role Phone Candis CARDENAS, Kaiden Villalta Primary Care Physician [phone] Encounter [facility] Date(s): 03/03/22 - 04/02/22 [facility] [address] [place], [place] [address] Allergies, Adverse Reactions, Alerts Substance [...] 8.5 Gm,0 Refills, Maintenance, 12/22/21 10:40:00 EDT, [facility] #[id number], 2 puffs Inhalation Every 4 hours,PRN: NEEDED FOR WHEEZING/cough/shortness... Start Date: 12/22/21 Status: Ordered albuterol 0.083% inhalation solution 3 mL = 2.5 mg, Inhalation, Every 4 hours, PRN for wheezing/cough/shortness of breath, # 25 each, 0 Refills, Maintenance, 10/14/21 22:10:00 EDT, Solution, [facility] #[id number], Partial fill upon patient request if the prescription is for a sched... Start Date: 10/14/21 Status: Ordered Eudora Saline Mist 0.65% nasal spray 2 sprays, Nares, Both, 4 times a day, # 1 each, 0 Refills, Maintenance, 02/04/22 13:32:00 EDT, [facility] #[id number], Partial fill upon patient request if the [...] tablet, 0 Refills, Maintenance, 12/27/21 13:43:00 EDT, [facility] #[id number], 153, cm, 10/08/21 13:23:00 EDT, Height, 113.9, kg, 10/08/21 13:23:00EDT, Dry Weight Start Date: 12/27/21 Status: Ordered clonazePAM 0.5 mg oral tablet 1 tablet = 0.5 mg, By Mouth, 4 times a day, PRN Anxiety, Patient on controlled substance contract. Please do NOT fill until 09/23/2020, # 112 tablet, 0 Refills, Maintenance, 11/18/20 21:02:00 EDT, Tablet, [facility]/pharmacy #[id number], Partial fill upon patient... Start Date: 11/18/20 Status: Ordered diclofenac 1% topical gel = 1 Gm, Topically, 4 times a day, FOR PAIN., # 100 Gm, 1 Refills, [id number], 30, APPLY 1 GM TOPICALLY 4 TIMES A DAY FOR PAIN, 153, cm, 06/07/21 11:07:00 EST, Height, 105, kg, 05/31/21 15:15:00 EST, Dry Weight Start Date: 08/05/21 Status: Ordered Dilaudid 2 mg oral tablet 1 tablet = 2 mg, By Mouth, 2 times a day, PRN Pain , Severe, checked masspat, # 28 tablet, 0 Refills, Maintenance, 03/23/22 22:13:00 EST, Tablet, [facility] #[id number], Partial fill upon patient request if the prescription is for a schedule II o... Start Date: 03/23/22 Status: Ordered Estrace Vaginal Cream 0.1 mg/g = 2 Gm, Vaginally, Daily at bedtime, 2g PV daily at bedtime x 2 weeks, then 1g PV 1-3x per week, # 42.5 Gm, 5 Refills, Maintenance, 11/09/21 11:17:00 EDT, [facility] #[id number], Partial fill upon patient request if the prescription is for a sche... Start Date: 11/09/21 Status: Ordered Estradiol Patch 0.0375 mg/24 hours twice weekly transdermal film, extended release See Instructions, APPLY 1 PATCH TOPICALLY TWICE WEEKLY DIRECTED, # 8 patch, 6 Refills, Maintenance, 03/23/22 16:10:00 EST, [facility] #[id number], 28, APPLY 1 PATCH TOPICALLY TWICE WEEKLY DIRECTED, 153, cm, 01/04/22 13:15:00 EDT, Height, 11... Start Date: 03/23/22 Status: Ordered fluconazole 150 mg oral tablet 1 tablet = 150 mg, By Mouth, Once, PRN vaginal yeast infection, # 1 tablet, 0 Refills, Soft Stop, 03/15/22 10:42:00 EST, Tablet, [facility] #[id number], Partial fill upon patient request if the prescription is for a schedule II opioid drug., 153,... Start Date: 03/15/22 Status: Ordered gabapentin 800 mg oral tablet See Instructions, TAKE 1 TABLET BY MOUTH FOUR TIMES DAILY, # 360 tablet, 0 Refills, [facility] #[id number], 153, cm, 10/08/21 13:23:00 EDT, Height, 113.9, [...] capsule, 1 Refills, Maintenance, 12/08/21 10:10:00 EDT, [facility] #[id number], 153, cm, 10/08/21 13:23:00 EDT, Height, 113.9,kg, [...] 1 Refills, Maintenance, 03/14/22 15:04:00 EST, Tablet, [facility] #[id number], Partial fill upon patient request if the prescription is for a schedule II opioid drug., 153, cm... Start Date: 03/14/22 Status: Ordered meloxicam 15 mg oral tablet 1/2 TO 1 TABLET, By Mouth, Daily, PRN NEEDED FOR MODERATE PAIN, # 30 tablet, 5 Refills, Maintenance, 01/10/22 20:40:00 EDT, [facility] #[id number], 153, cm, 01/04/22 13:15:00 EDT, Height, 113.9, [...] capsule, 0 Refills, Maintenance, 01/16/22 8:28:00 EDT, [facility] #[id number], 153, cm, 01/04/22 13:15:00 EDT, Height, 113.9, kg, 10/08/21 13:23:00 EDT, Dry Weight Start Date: 01/16/22 Status: Ordered ondansetron 4 mg oral tablet 1 tablet, By Mouth, Every 8 hours, PRN NEEDED FOR NAUSEA OR VOMITING, # 30 tablet, 0 Refills, Maintenance, 03/01/22 11:29:00 EST, [facility] #[id number], 153, cm, 01/04/22 13:15:00 EDT, Height, 113.9, kg, 10/08/21 13:23:00 EDT, Dry Weight Start Date: 03/01/22 Status: Ordered oxybutynin 5 mg oral tablet 1 tablet, By Mouth, 3 times a day, # 270 tablet, 1 Refills, 01/10/22 10:29:00 EDT, [facility] #[id number], 153, cm, 01/04/22 13:15:00 EDT, Height, 113.9, [...] 03/14/22 15:10:00 EST, Route to Pharmacy Electronically, [facility] #[id number], Partial fill upon patient request if the... [...] Care Physician Member Role: PCP Address: Address: [address] [place] [address] Adult [place] [address]- Care Team Related Persons Name: RODOLFO SHEIKH Address: home [address] [facility] [facility] [address] [place] [address] Name: CHIARA TEE Address: home [address] [facility] [address] [place] [address]"
--- OUTSIDE RECORDS SUMMARY | 2022-12-30 08:24 | XMS_ITS | Continuity of Care Document ---
Author Name Unknown Organization [facility] Address [address] [place], [place] [address]sarah espana, [address] [place] [address]- Care Team Providers Care Personnel Arbitrator Name Role Phone Candis CARDENAS, Kaiden Villalta Primary Care Physician Encounter [facility] Date(s): 03/30/22 - 04/29/22 [facility] [address] [place] [address] Drive, [address] [place] [address]- Allergies, Adverse Reactions, Alerts Substance Reaction Severity [...] 8.5 Gm,0 Refills, Maintenance, 12/22/21 10:40:00 EDT, [facility] #[id number], 2 puffs Inhalation Every 4 hours,PRN: NEEDED FOR WHEEZING/cough/shortness... Start Date: 12/22/21 Status: Ordered albuterol 0.083% inhalation solution 3 mL = 2.5 mg, Inhalation, Every 4 hours, PRN for wheezing/cough/shortness of breath, # 25 each, 0 Refills, Maintenance, 10/14/21 22:10:00 EDT, Solution, [facility] #[id number], Partial fill upon patient request if the prescription is for a sched... Start Date: 10/14/21 Status: Ordered Timber Saline Mist 0.65% nasal spray 2 sprays, Nares, Both, 4 times a day, # 1 each, 0 Refills, Maintenance, 02/04/22 13:32:00 EDT, [facility] #[id number], Partial fill upon patient request if the [...] 05/06/22 12:14:00 EST, 04/29/22 12:14:00 EST, Tablet, [facility] #[id number], Partial fill upon patient request if the prescription is for a jasmin... Start Date: 04/29/22 Stop Date: 05/06/22 Status: Ordered cetirizine 10 mg oral tablet 1 tablet, By Mouth, Daily, PRN allergies, # 90 tablet, 0 Refills, Maintenance, 12/27/21 13:43:00 EDT, [facility] #[id number], 153, cm, 10/08/21 13:23:00 EDT, Height, 113.9, kg, 10/08/21 13:23:00EDT, Dry Weight Start Date: 12/27/21 Status: Ordered clonazePAM 0.5 mg oral tablet 1 tablet = 0.5 mg, By Mouth, 4 times a day, PRN Anxiety, Patient on controlled substance contract. Please do NOT fill until 09/23/2020, # 112 tablet, 0 Refills, Maintenance, 11/18/20 21:02:00 EDT, Tablet, [facility]/pharmacy #[id number], Partial fill upon patient... Start Date: 11/18/20 Status: Ordered diclofenac 1% topical gel = 1 Gm, Topically, 4 times a day, FOR PAIN., # 100 Gm, 1 Refills, [facility]ORE 15672, 30, APPLY 1 GM TOPICALLY 4 TIMES A DAY FOR PAIN, 153, cm, 06/07/21 11:07:00 EST, Height, 105, kg, 05/31/21 15:15:00 EST, Dry Weight Start Date: 08/05/21 Status: Ordered Dilaudid 2 mg oral tablet 1 tablet = 2 mg, By Mouth, 2 times a day, PRN Pain , Severe, checked masspat, # 56 tablet, 0 Refills, Maintenance, 04/07/22 21:32:00 EST, Tablet, [facility] #[id number], Partial fill upon patient request if the prescription is for a schedule II o... Start Date: 04/07/22 Status: Ordered doxycycline monohydrate 100 mg oral capsule 1 capsule = 100 mg, By Mouth, 2 times a day, for 10 days, take with food, # 20 capsule, 0 Refills, Acute 05/05/22 16:17:00 EST, 04/25/22 16:17:00 EST, Capsule, [facility] #[id number], Partial fill upon patient request if the prescription is for a... Start Date: 04/25/22 Stop Date: 05/05/22 Status: Ordered Estrace Vaginal Cream 0.1 mg/g = 2 Gm, Vaginally, Daily at bedtime, 2g PV daily at bedtime x 2 weeks, then 1g PV 1-3x per week, # 42.5 Gm, 5 Refills, Maintenance, 11/09/21 11:17:00 EDT, [facility] #[id number], Partial fill upon patient request if the prescription is for a sche... Start Date: 11/09/21 Status: Ordered Estradiol Patch 0.0375 mg/24 hours twice weekly transdermal film, extended release See Instructions, APPLY 1 PATCH TOPICALLY TWICE WEEKLY DIRECTED, # 8 patch, 6 Refills, Maintenance, 03/23/22 16:10:00 EST, [facility] #[id number], 28, APPLY 1 PATCH TOPICALLY TWICE WEEKLY DIRECTED, 153, cm, 01/04/22 13:15:00 EDT, Height, 11... Start Date: 03/23/22 Status: Ordered Flonase 50 mcg/inh nasal spray 1 sprays, Nares, Both, 2 times a day, # 16 Gm, 0 Refills, Maintenance, 04/19/22 14:04:00 EST, [place], [facility] #[id number], Partial fill upon patient request if the prescription is for a schedule II opioid drug., 1 sprays Nares, Both 2 times a d... Start Date: 04/19/22 Status: Ordered fluconazole 150 mg oral tablet 1 tablet = 150 mg, By Mouth, Once, PRN vaginal yeast infection, # 1 tablet, 0 Refills, Soft Stop, 03/15/22 10:42:00 EST, [facility] #[id number], Partial fill upon patient request if the prescription is for a schedule II opioid drug., 153,... Start Date: 03/15/22 Status: Ordered gabapentin 800 mg oral tablet 1 tablet, By Mouth, 4 times a day, # 360 tablet, 1 Refills, Maintenance, 04/19/22 12:59:00 [facility] #[id number], 153, cm, 01/04/22 13:15:00 EDT, Height, 113.9, [...] capsule, 1 Refills, Maintenance, 12/08/21 10:10:00 EDT, [facility] #[id number], 153, cm, 10/08/21 13:23:00 EDT, Height, 113.9,kg, [...] 1 Refills, Maintenance, 04/28/22 13:51:00 EST, Tablet, [facility] #[id number], Partial fill upon patient request if the prescription is for a schedule II opioid drug., 153, cm... Start Date: 04/28/22 Status: Ordered lidocaine 4% topical cream 1 application, Topically, 3 times a day, PRN pain of forearms, # 30 Gm, 1 Refills, Acute 06/23/22 16:24:00 EST, 04/25/22 16:23:00 EST, Cream, [facility] #[id number], Partial fill upon patient request if the prescription is for a schedule II opioi... Start Date: 04/25/22 Stop Date: 06/23/22 Status: Ordered meloxicam 15 mg oral tablet 1/2 TO 1 TABLET, By Mouth, Daily, PRN NEEDED FOR MODERATE PAIN, # 30 tablet, 5 Refills, Maintenance, 01/10/22 20:40:00 EDT, [facility] #[id number], 153, cm, 01/04/22 13:15:00 EDT, Height, 113.9, [...] capsule, 1 Refills, Maintenance, 04/19/22 12:41:00 EST, [facility] #[id number], 153, cm, 01/04/22 13:15:00 EDT, Height, 113.9, kg, 10/08/21 13:23:00 EDT, Dry Weight Start Date: 04/19/22 Status: Ordered ondansetron 4 mg oral tablet 1 tablet, By Mouth, Every 8 hours, PRN NEEDED FOR NAUSEA OR VOMITING, # 30 tablet, 1 Refills, Maintenance, 04/14/22 21:15:00 [facility], [facility] #[id number], 153, cm, 01/04/22 13:15:00 EDT, Height, 113.9, kg, 10/08/21 13:23:00 EDT, Dry Weight Start Date: 04/14/22 Status: Ordered oxybutynin 5 mg oral tablet 1 tablet, By Mouth, 3 times a day, # 270 tablet, 1 Refills, 01/10/22 10:29:00 EDT, [facility] #[id number], 153, cm, 01/04/22 13:15:00 EDT, Height, 113.9, [...] 04/14/22 21:16:00 EST, Route to Pharmacy Electronically, [facility] #[id number], Partial fill upon patient request if the... [...] Physician Member Role: PCP Address: Address: [address] [place] [address] Adult [facility] Pediatric Medicine [place], [place] [address] Care Team Related Persons Name: RODOLFO SHEIKH Address: home [address] [address] Name: CHIARA TEE Address: home [address] [place] [id number]
--- OUTSIDE RECORDS SUMMARY | 2022-12-30 08:24 | XMS_ITS | Continuity of Care Document ---
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 Start Date: 09/28/21 Status: Ordered albuterol 0.083% inhalation solution 3 mL = 2.5 mg, Inhalation, Every 4 hours, PRN for wheezing/cough/shortness of breath, # 25 each, 0 Refills, Maintenance, 10/14/21 22:10:00 EDT, Solution, [facility] #[id number], Partial fill upon patient request if the prescription is for a sched... Start Date: 10/14/21 Status: Ordered benzonatate 100 mg oral capsule 2 capsule, By Mouth, 3 times a day, PRN NEEDED FOR COUGH, # 30 capsule, 1 Refills, Physician Stop 11/10/22 14:46:00 EDT, 03/19/22 17:38:00 EST, [facility] #[id number], 153, cm, 10/08/21 13:23:00 EDT, Height, 113.9, kg, 10/08/21 13:23:00 EDT, D... Start Date: 03/19/22 Stop Date: 11/10/22 Status: Ordered budesonide 1 mg/2 mL inhalation suspension 2 mL = 1 mg, Neb, 2 times a day, rinse mouth out after use, # 120 mL, 1 Refills, Maintenance, 10/25/21 18:30:00 EDT, Suspension, [facility] #[id number], Partial fill upon patient request if the [...] 21:02:00 EDT, Tablet, [facility]/pharmacy #[id number], Partial fill upon patient... Start Date: 11/18/20 Status: Ordered diclofenac 1% topical gel = 1 Gm, Topically, 4 times a day, FOR PAIN., # 100 Gm, 1 Refills, [facility] 42283, 30, APPLY 1 GM TOPICALLY 4 TIMES A DAY FOR PAIN, 153, cm, 06/07/21 11:07:00 EST, Height, 105, kg, 05/31/21 15:15:00 EST, Dry Weight Start Date: 08/05/21 Status: Ordered Dilaudid 2 mg oral tablet 1 tablet = 2 mg, By Mouth, 2 times a day, PRN Pain , Severe, checked masspat, # 28 tablet, 0 Refills, Maintenance, 11/10/21 14:47:00 EDT, Tablet, [facility] #[id number], Partial fill upon patient request if the prescription is for a schedule II o... Start Date: 11/10/21 Status: Ordered Estrace Vaginal Cream 0.1 mg/g = 2 Gm, Vaginally, Daily at bedtime, 2g PV daily at bedtime x 2 weeks, then 1g PV 1-3x per week, # 42.5 Gm, 5 Refills, Maintenance, 11/09/21 11:17:00 EDT, [facility] #[id number], Partial fill upon patient request if the prescription is for a sche... Start Date: 11/09/21 Status: Ordered gabapentin 800 mg oral tablet See Instructions, TAKE 1 TABLET BY MOUTH FOUR TIMES DAILY, # 360 tablet, 0 Refills, [facility] #[id number], 153, cm, 10/08/21 13:23:00 EDT, Height, 113.9, [...] capsule, 1 Refills, Maintenance, 09/28/21 16:58:00 EDT, [facility] #[id number], 153, cm, 08/10/21 11:19:00 EDT, Height, 105, [...] 1 Refills, Maintenance, 07/30/21 12:25:00 EDT, Tablet, [facility] #[id number], Partial fill upon patient request if the prescription is for a schedule II opioid drug... Start Date: 07/30/21 Status: Ordered levothyroxine 0.1 mg oral tablet 1 tablet = 100 mcg, By Mouth, Daily, dose increase, # 90 tablet, 0 Refills, Maintenance, 11/01/21 16:08:00 EDT, [facility] #[id number], Please discontinue [facility]ug, 153, cm, 10/08/21 13:23:00 EDT, Height, 113.9, kg, 10/08/21 13:23:00 EDT, Dry Weight Start Date: 11/01/21 Status: Ordered lidocaine 2% topical gel with applicator 5 mL = 0.1 Gm, Topically, 2 times a day, PRN Pain , Moderate, # 60 mL, 2 Refills, Soft Stop, 09/24/21 16:43:00 EDT, Gel, [facility] #[id number], Partial fill upon patient request if the [...] 90 capsule, 0 Refills, 09/27/21 14:31:00 EDT, [facility] #[id number], 153, cm, 08/10/21 11:19:00 EDT, Height, 105, kg, 05/31/21 15:15:00 EST, Dry Weight Start Date: 09/27/21 Status: Ordered ondansetron 4 mg oral tablet 1 tablet = 4 mg, By Mouth, Every 8 hours, PRN Nausea & Vomiting, # 30 tablet, 1 Refills, Maintenance, 11/10/21 14:47:00 EDT, [facility] #[id number], 153, cm, 10/08/21 13:23:00 EDT, Height, 113.9, kg, 10/08/21 13:23:00 EDT, Dry Weight Start Date: 11/10/21 Status: Ordered oxybutynin 5 mg oral tablet 1 tablet, By Mouth, 3 times a day, # 270 tablet, 1 Refills, [id number], 153, cm, 08/10/21 11:19:00 EDT, Height, 105, [...] 1 Refills, Maintenance, 07/30/21 12:22:00 EDT, Tablet, [facility] #[id number], Partial fill upon patient request if the [...]
--- OUTSIDE RECORDS SUMMARY | 2022-12-30 08:24 | XMS_ITS | Continuity of Care Document ---
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 Start Date: 12/22/21 Status: Ordered albuterol 0.083% inhalation solution 3 mL = 2.5 mg, Inhalation, Every 4 hours, PRN for wheezing/cough/shortness of breath, # 25 each, 0 Refills, Maintenance, 10/14/21 22:10:00 EDT, Solution, [facility] #[id number], Partial fill upon patient request if the prescription is for a sched... Start Date: 10/14/21 Status: Ordered Ford Saline Mist 0.65% nasal spray 2 sprays, Nares, Both, 4 times a day, # 1 each, 0 Refills, Maintenance, 02/04/22 13:32:00 EDT, [facility] #[id number], Partial fill upon patient request if the [...] tablet, 0 Refills, Maintenance, 12/27/21 13:43:00 EDT, [facility] #[id number], 153, cm, 10/08/21 13:23:00 EDT, Height, 113.9, kg, 10/08/21 13:23:00EDT, Dry Weight Start Date: 12/27/21 Status: Ordered clonazePAM 0.5 mg oral tablet 1 tablet = 0.5 mg, By Mouth, 4 times a day, PRN Anxiety, Patient on controlled substance contract. Please do NOT fill until 09/23/2020, # 112 tablet, 0 Refills, Maintenance, 11/18/20 21:02:00 EDT, Tablet, [facility]/pharmacy #[id number], Partial fill upon patient... Start Date: 11/18/20 Status: Ordered diclofenac 1% topical gel = 1 Gm, Topically, 4 times a day, FOR PAIN., # 100 Gm, 1 Refills, [facility], 30, APPLY 1 GM TOPICALLY 4 TIMES A DAY FOR PAIN, 153, cm, 06/07/21 11:07:00 EST, Height, 105, kg, 05/31/21 15:15:00 EST, Dry Weight Start Date: 08/05/21 Status: Ordered Dilaudid 2 mg oral tablet 1 tablet = 2 mg, By Mouth, 2 times a day, PRN Pain , Severe, checked masspat, # 28 tablet, 0 Refills, Maintenance, 03/23/22 22:13:00 EST, Tablet, [facility] #[id number], Partial fill upon patient request if the prescription is for a schedule II o... Start Date: 03/23/22 Status: Ordered Estrace Vaginal Cream 0.1 mg/g = 2 Gm, Vaginally, Daily at bedtime, 2g PV daily at bedtime x 2 weeks, then 1g PV 1-3x per week, # 42.5 Gm, 5 Refills, Maintenance, 11/09/21 11:17:00 EDT, [facility] #[id number], Partial fill upon patient request if the prescription is for a sche... Start Date: 11/09/21 Status: Ordered Estradiol Patch 0.0375 mg/24 hours twice weekly transdermal film, extended release See Instructions, APPLY 1 PATCH TOPICALLY TWICE WEEKLY DIRECTED, # 8 patch, 6 Refills, Maintenance, 03/23/22 16:10:00 EST, [facility] #[id number], 28, APPLY 1 PATCH TOPICALLY TWICE WEEKLY DIRECTED, 153, cm, 01/04/22 13:15:00 EDT, Height, 11... Start Date: 03/23/22 Status: Ordered fluconazole 150 mg oral tablet 1 tablet = 150 mg, By Mouth, Once, PRN vaginal yeast infection, # 1 tablet, 0 Refills, Soft Stop, 03/15/22 10:42:00 EST, Tablet, [facility] #[id number], Partial fill upon patient request if the prescription is for a schedule II opioid drug., 153,... Start Date: 03/15/22 Status: Ordered gabapentin 800 mg oral tablet See Instructions, TAKE 1 TABLET BY MOUTH FOUR TIMES DAILY, # 360 tablet, 0 Refills, [facility] #[id number], 153, cm, 10/08/21 13:23:00 EDT, Height, 113.9, [...] capsule, 1 Refills, Maintenance, 12/08/21 10:10:00 EDT, [facility] #[id number], 153, cm, 10/08/21 13:23:00 EDT, Height, 113.9,kg, [...] 1 Refills, Maintenance, 03/14/22 15:04:00 EST, Tablet, [facility] #[id number], Partial fill upon patient request if the prescription is for a schedule II opioid drug., 153, cm... Start Date: 03/14/22 Status: Ordered lidocaine 3% topical gel 1 application, Topically, 2 times a day, PRN as needed for pain, to replace 2% topical, # 28.5 Gm, 2 Refills, Acute 03/29/22 14:17:00 EST, 12/28/21 14:17:00 EDT, Gel, [facility] #[id number], Partial fill upon patient request if the prescription i... Start Date: 12/28/21 Stop Date: 03/29/22 Status: Ordered meloxicam 15 mg oral tablet 1/2 TO 1 TABLET, By Mouth, Daily, PRN NEEDED FOR MODERATE PAIN, # 30 tablet, 5 Refills, Maintenance, 01/10/22 20:40:00 EDT, [facility] #[id number], 153, cm, 01/04/22 13:15:00 EDT, Height, 113.9, [...] capsule, 0 Refills, Maintenance, 01/16/22 8:28:00 EDT, [facility] #[id number], 153, cm, 01/04/22 13:15:00 EDT, Height, 113.9, kg, 10/08/21 13:23:00 EDT, Dry Weight Start Date: 01/16/22 Status: Ordered ondansetron 4 mg oral tablet 1 tablet, By Mouth, Every 8 hours, PRN NEEDED FOR NAUSEA OR VOMITING, # 30 tablet, 0 Refills, Maintenance, 03/01/22 11:29:00 EST, [facility] #[id number], 153, cm, 01/04/22 13:15:00 EDT, Height, 113.9, kg, 10/08/21 13:23:00 EDT, Dry Weight Start Date: 03/01/22 Status: Ordered oxybutynin 5 mg oral tablet 1 tablet, By Mouth, 3 times a day, # 270 tablet, 1 Refills, 01/10/22 10:29:00 EDT, [facility] #[id number], 153, cm, 01/04/22 13:15:00 EDT, Height, 113.9, [...] 03/14/22 15:10:00 EST, Route to Pharmacy Electronically, [facility] #[id number], Partial fill upon patient request if the... [...] Name: Kaiden Chirinos MD Position: [facility] Primary Care Physician Member Role: PCP Address: Address: [address] [place] [address] Adult & [place] [address]- Care Team Related Persons Name: RODOLFO SHEIKH Address: home [address] [facility] [place] [address] Name: CHIARA TEE Address: home [address] [place] [address] [address] [place] [address]
--- OUTSIDE RECORDS SUMMARY | 2022-12-30 08:24 | XMS_ITS | Continuity of Care Document ---
Author Name Unknown Organization 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 [address] [place] [address] Drive, [address] [place] [address]- Allergies, Adverse Reactions, Alerts Substance Reaction Severity [...] 8.5 Gm,0 Refills, Maintenance, 12/22/21 10:40:00 EDT, [facility] #[id number], 2 puffs Inhalation Every 4 hours,PRN: NEEDED FOR WHEEZING/cough/shortness... Start Date: 12/22/21 Status: Ordered albuterol 0.083% inhalation solution 3 mL = 2.5 mg, Inhalation, Every 4 hours, PRN for wheezing/cough/shortness of breath, # 25 each, 0 Refills, Maintenance, 10/14/21 22:10:00 EDT, Solution, [facility] #[id number], Partial fill upon patient request if the prescription is for a sched... Start Date: 10/14/21 Status: Ordered [place] Saline Mist 0.65% nasal spray 2 sprays, Nares, Both, 4 times a day, # 1 each, 0 Refills, Maintenance, 02/04/22 13:32:00 EDT, [facility] #[id number], Partial fill upon patient request if the [...] tablet, 0 Refills, Maintenance, 12/27/21 13:43:00 EDT, [facility] #[id number], 153, cm, 10/08/21 13:23:00 EDT, Height, 113.9, [...] # 100 Gm, 1 Refills, [facility], 30, APPLY 1 GM TOPICALLY 4 TIMES A DAY FOR PAIN, 153, cm, 06/07/21 11:07:00 EST, Height, 105, kg, 05/31/21 15:15:00 EST, Dry Weight Start Date: 08/05/21 Status: Ordered Dilaudid 2 mg oral tablet 1 tablet = 2 mg, By Mouth, 2 times a day, PRN Pain , Severe, checked masspat, # 56 tablet, 0 Refills, Maintenance, 05/31/22 15:38:00 EST, Tablet, [facility] #[id number], Partial fill upon patient request if the prescription is for a schedule II o... Start Date: 05/31/22 Status: Ordered Estrace Vaginal Cream 0.1 mg/g = 2 Gm, Vaginally, Daily at bedtime, 2g PV daily at bedtime x 2 weeks, then 1g PV 1-3x per week, # 42.5 Gm, 5 Refills, Maintenance, 11/09/21 11:17:00 EDT, [facility] #[id number], Partial fill upon patient request if the prescription is for a sche... Start Date: 11/09/21 Status: Ordered Estradiol Patch 0.0375 mg/24 hours twice weekly transdermal film, extended release See Instructions, APPLY 1 PATCH TOPICALLY TWICE WEEKLY DIRECTED, # 8 patch, 6 Refills, Maintenance, 03/23/22 16:10:00 EST, [facility] #[id number], 28, APPLY 1 PATCH TOPICALLY TWICE WEEKLY DIRECTED, 153, cm, 01/04/22 13:15:00 EDT, Height, 11... Start Date: 03/23/22 Status: Ordered fluconazole 150 mg oral tablet 1 tablet = 150 mg, By Mouth, Once, PRN vaginal yeast infection, # 1 tablet, 0 Refills, Soft Stop, 03/15/22 10:42:00 EST, Tablet, [facility] #[id number], Partial fill upon patient request if the prescription is for a schedule II opioid drug., 153,... Start Date: 03/15/22 Status: Ordered fluticasone 50 mcg/inh nasal spray See Instructions, SHAKE LIQUID AND USE 1 SPRAY IN EACH NOSTRIL TWICE DAILY, # 16 Gm, 1 Refills, Maintenance, 05/18/22 13:57:00 EST, [facility] #[id number], 30, SHAKE LIQUID AND USE 1 SPRAY IN EACH NOSTRIL TWICE DAILY, 153, cm, 04/25/22 16:23:00 E... Start Date: 05/18/22 Status: Ordered gabapentin 800 mg oral tablet 1 tablet, By Mouth, 4 times a day, # 360 tablet, 1 Refills, Maintenance, 04/19/22 12:59:00 EST, [facility] #[id number], 153, cm, 01/04/22 13:15:00 EDT, Height, 113.9, [...] capsule, 1 Refills, Maintenance, 05/20/22 12:57:00 EST, [facility] #[id number], 153, cm, 04/25/22 16:23:00 EST, Height, 109, [...] 1 Refills, Maintenance, 04/28/22 13:51:00 EST, Tablet, [facility] #[id number], Partial fill upon patient request if the prescription is for a schedule II opioid drug., 153, cm... Start Date: 04/28/22 Status: Ordered lidocaine 4% topical cream 1 application, Topically, 3 times a day, PRN pain of forearms, # 30 Gm, 1 Refills, Acute 06/23/22 16:24:00 EST, 04/25/22 16:23:00 EST, Cream, [facility] #[id number], Partial fill upon patient request if the prescription is for a schedule II opioi... Start Date: 04/25/22 Stop Date: 06/23/22 Status: Ordered meloxicam 15 mg oral tablet 1/2 TO 1 TABLET, By Mouth, Daily, PRN NEEDED FOR MODERATE PAIN, # 30 tablet, 5 Refills, Maintenance, 01/10/22 20:40:00 EDT, [facility] #[id number], 153, cm, 01/04/22 13:15:00 EDT, Height, 113.9, [...] capsule, 1 Refills, Maintenance, 04/19/22 12:41:00 EST, [facility] #[id number], 153, cm, 01/04/22 13:15:00 EDT, Height, 113.9, kg, 10/08/21 13:23:00 EDT, Dry Weight Start Date: 04/19/22 Status: Ordered ondansetron 4 mg oral tablet 1 tablet, By Mouth, Every 8 hours, PRN NEEDED FOR NAUSEA OR VOMITING, # 30 tablet, 1 Refills, Maintenance, 04/14/22 21:15:00 EST, [facility] #[id number], 153, cm, 01/04/22 13:15:00 EDT, Height, 113.9, kg, 10/08/21 13:23:00 EDT, Dry Weight Start Date: 04/14/22 Status: Ordered oxybutynin 5 mg oral tablet 1 tablet, By Mouth, 3 times a day, # 270 tablet, 1 Refills, 01/10/22 10:29:00 EDT, [facility] #[id number], 153, cm, 01/04/22 13:15:00 EDT, Height, 113.9, [...] 04/14/22 21:16:00 EST, Route to Pharmacy Electronically, [facility] #[id number], Partial fill upon patient request if the... [...] Personnel Name: Candis CARDENAS, Kaiden Villalta Position: [facility] Primary Care Physician Member Role: PCP Address: Address: [address] [place] [address] Adult & [place] [address]- Care Team Related Persons Name: RODOLFO SHEIKH Address: home [address] [facility] [address] [place] [address] Name: CHIARA TEE Address: home [address] [place] [address] [place] [id number]
--- OUTSIDE RECORDS SUMMARY | 2022-12-30 08:24 | XMS_ITS | Continuity of Care Document ---
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 Start Date: 12/24/20 Status: Ordered baclofen 10 mg oral tablet 10 mg, 1, tablet, By Mouth, 3 times a day, PRN, # 30 tablet, Refills 0, Tot. Refills 0, Maintenance, Spasm, 01/31/19 21:47:23 EDT, Route to Pharmacy Electronically, [id number], [facility]/pharmacy #[id number] Start Date: 01/31/19 Stop Date: 02/14/19 Status: Ordered benzonatate 100 mg oral capsule 2 capsule, By Mouth, 3 times a day, PRN NEEDED FOR COUGH, # 30 capsule, 1 Refills, Physician Stop 03/19/22 17:38:00 EST, 02/19/22 16:55:00 EDT, [facility]/pharmacy #[id number], 160, cm, 12/04/20 10:52:00 EDT, Height, 104.6, kg, 12/04/20 10:52:00 EDT, Dry Weight Start Date: 02/19/22 Stop Date: 03/19/22 Status: Ordered benzonatate 100 mg oral capsule 2 capsule, By Mouth, 3 times a day, PRN NEEDED FOR COUGH, # 30 capsule, 1 Refills, Physician Stop 02/19/22 16:55:00 EDT, 02/19/21 16:54:00 EDT, [facility]/pharmacy #[id number], 160, cm, 12/04/20 10:52:00 EDT, Height, 104.6, kg, 12/04/20 10:52:00 EDT, Dry Weight Start Date: 02/19/21 Stop Date: 02/19/22 Status: Ordered clonazePAM 0.5 mg oral tablet 1 tablet = 0.5 mg, By Mouth, 4 times a day, PRN Anxiety, Patient on controlled substance contract. Please do NOT fill until 09/23/2020, # 112 tablet, 0 Refills, Maintenance, 11/18/20 21:02:00 EDT, Tablet, [facility]/pharmacy #[id number], Partial fill upon patient... Start Date: 11/18/20 Status: Ordered Famotidine 0 Refills, Maintenance, 04/07/19 16:11:00 EST Start Date: 04/07/19 Status: Ordered gabapentin 800 mg oral tablet 1 tablet, By Mouth, 4 times a day, # 360 tablet, 1 Refills, [id number], 160, cm, 03/30/21 10:47:00 EST, Height, 104.6, [...] 1 Refills, Maintenance, 02/25/21 8:28:00 EST, Capsule, [facility]/pharmacy #[id number], Partial fill upon patient request if [...] 1 Refills, Maintenance, 11/05/20 11:43:00 EDT, Tablet, [facility]/pharmacy #[id number], Partial fill upon patient request if the prescription is for a schedule II opioid drug., 160, cm, 10/30/20 8:2... Start Date: 11/05/20 Status: Ordered meloxicam 15 mg oral tablet 1/2 TO 1 TABLET, By Mouth, Daily, PRN NEEDED FOR MODERATE PAIN, # 30 tablet, 1 Refills, [facility], 160, cm, 12/04/20 10:52:00 EDT, Height, 104.6, kg, 12/04/20 10:52:00 EDT, Dry Weight Start Date: 01/22/21 Status: Ordered omeprazole 20 mg oral enteric coated capsule 1 capsule, By Mouth, Daily, # 90 capsule, 1 Refills, [facility], 160, cm, 03/30/21 10:47:00 EST, Height, 104.6, kg, 12/04/20 10:52:00 EDT, Dry Weight Start Date: 03/31/21 Status: Ordered ondansetron 4 mg oral tablet See Instructions, TAKE 1 TABLET BY MOUTH EVERY 8 HOURS NEEDED FOR NAUSEA AND VOMITING, # 15 tablet, 1 Refills, Physician Stop 04/19/21 17:37:00 EST, 03/19/21 17:37:00 EST, [facility]/pharmacy #[id number], 160,cm, 12/04/20 10:52:00 EDT, Height, 104.6, kg, 12/04... Start Date: 03/19/21 Stop Date: 04/19/21 Status: Ordered oxybutynin 5 mg oral tablet 1 tablet, By Mouth, 3 times a day, dose increase, # 270 tablet, 1 Refills, Maintenance, 03/19/21 17:40:00 EST, [facility]/pharmacy #[id number], 160, cm, 12/04/20 10:52:00 EDT, Height, [...] 1 each,1 Refills, Maintenance, 03/30/21 20:35:00 EST, [facility]/pharmacy #[id number], Partial fill upon patient request if the prescription is for a schedule II opioid d... Start Date: 03/30/21 Status: Ordered sertraline 100 mg oral tablet 2 tablet = 200 mg, By Mouth, Daily, dose increase, please hold script until patient next due (she will no longer be on 50mg tabs), # 180 tablet, 1 Refills, Maintenance, 10/30/20 8:45:00 EDT, Tablet, [facility]/pharmacy #[id number], Partial fill upon patient reques... Start Date: 10/30/20 Status: Ordered traZODone 150 mg oral tablet 1.5 tablet = 225 mg, By Mouth, Daily at bedtime, dose increase, # 135 tablet, 1 Refills, Maintenance, 04/06/21 12:26:00 EST, Tablet, [facility]/pharmacy #[id number], Partial fill upon patient request if [...]
--- OUTSIDE RECORDS SUMMARY | 2022-12-30 08:24 | XMS_ITS | Continuity of Care Document ---
Author Name Unknown Organization [facility] Address [address] [place], [place] [address]sarah espana, [address] [place] [address]- Care Team Providers Care Area Safety Manager Name Role Phone Candis CARDENAS, Kaiden Villalta Primary Care Physician En[place] [facility] [place] Date(s): 04/14/22 - 05/14/22 [facility] [address] [place] [address] Drive, [address] [place] [address]- Allergies, Adverse Reactions, Alerts Substance Reaction Severity [...] 8.5 Gm,0 Refills, Maintenance, 12/22/21 10:40:00 EDT, [email or web address] #[id number], 2 puffs Inhalation Every 4 hours,PRN: NEEDED FOR WHEEZING/cough/shortness... Start Date: 12/22/21 Status: Ordered albuterol 0.083% inhalation solution 3 mL = 2.5 mg, Inhalation, Every 4 hours, PRN for wheezing/cough/shortness of breath, # 25 each, 0 Refills, Maintenance, 10/14/21 22:10:00 EDT, Solution, [facility] #[id number], Partial fill upon patient request if the prescription is for a sched... Start Date: 10/14/21 Status: Ordered [place] Saline Mist 0.65% nasal spray 2 sprays, Nares, Both, 4 times a day, # 1 each, 0 Refills, Maintenance, 02/04/22 13:32:00 EDT, [facility] #[id number], Partial fill upon patient request if the [...] tablet, 0 Refills, Maintenance, 12/27/21 13:43:00 EDT, [facility] #[id number], 153, cm, 10/08/21 13:23:00 EDT, Height, 113.9, [...] # 100 Gm, 1 Refills, [facility], 30, APPLY 1 GM TOPICALLY 4 TIMES A DAY FOR PAIN, 153, cm, 06/07/21 11:07:00 EST, Height, 105, kg, 05/31/21 15:15:00 EST, Dry Weight Start Date: 08/05/21 Status: Ordered Dilaudid 2 mg oral tablet 1 tablet = 2 mg, By Mouth, 2 times a day, PRN Pain , Severe, checked masspat, # 56 tablet, 0 Refills, Maintenance, 05/05/22 17:13:00 EST, Tablet, [facility] #[id number], Partial fill upon patient request if the prescription is for a schedule II o... Start Date: 05/05/22 Status: Ordered Estrace Vaginal Cream 0.1 mg/g = 2 Gm, Vaginally, Daily at bedtime, 2g PV daily at bedtime x 2 weeks, then 1g PV 1-3x per week, # 42.5 Gm, 5 Refills, Maintenance, 11/09/21 11:17:00 EDT, [facility] #[id number], Partial fill upon patient request if the prescription is for a sche... Start Date: 11/09/21 Status: Ordered Estradiol Patch 0.0375 mg/24 hours twice weekly transdermal film, extended release See Instructions, APPLY 1 PATCH TOPICALLY TWICE WEEKLY DIRECTED, # 8 patch, 6 Refills, Maintenance, [facility]/23[facility]22 [id number], APPLY 1 PATCH TOPICALLY TWICE WEEKLY DIRECTED, 153, cm, 01/04/22 13:15:00 EDT, Height, 11... Start Date: 03/23/22 Status: Ordered Flonase 50 mcg/inh nasal spray 1 sprays, Nares, Both, 2 times a day, # 16 Gm, 0 Refills, Maintenance, 04/19/22 14:04:00 EST, [place], [facility] #[id number], Partial fill upon patient request if the prescription is for a schedule II opioid drug., 1 sprays Nares, Both 2 times a d... Start Date: 04/19/22 Status: Ordered fluconazole 150 mg oral tablet 1 tablet = 150 mg, By Mouth, Once, PRN vaginal yeast infection, # 1 tablet, 0 Refills, Soft Stop, 03/15/22 10:42:00 EST, Tablet, [facility] #[id number], Partial fill upon patient request if the prescription is for a schedule II opioid drug., 153,... Start Date: 03/15/22 Status: Ordered gabapentin 800 mg oral tablet 1 tablet, By Mouth, 4 times a day, # 360 tablet, 1 Refills, Maintenance, 04/19/22 12:59:00 EST, [facility] #[id number], 153, cm, 01/04/22 13:15:00 EDT, Height, 113.9, [...] capsule, 1 Refills, Maintenance, 12/08/21 10:10:00 EDT, [facility] #[id number], 153, cm, 10/08/21 13:23:00 EDT, Height, 113.9,kg, [...] 1 Refills, Maintenance, 04/28/22 13:51:00 EST, Tablet, [facility] #[id number], Partial fill upon patient request if the prescription is for a schedule II opioid drug., 153, cm... Start Date: 04/28/22 Status: Ordered lidocaine 4% topical cream 1 application, Topically, 3 times a day, PRN pain of forearms, # 30 Gm, 1 Refills, Acute 06/23/22 16:24:00 EST, 04/25/22 16:23:00 EST, Cream, [facility] #[id number], Partial fill upon patient request if the prescription is for a schedule II opioi... Start Date: 04/25/22 Stop Date: 06/23/22 Status: Ordered meloxicam 15 mg oral tablet 1/2 TO 1 TABLET, By Mouth, Daily, PRN NEEDED FOR MODERATE PAIN, # 30 tablet, 5 Refills, Maintenance, 01/10/22 20:40:00 EDT, [facility] #[id number], 153, cm, 01/04/22 13:15:00 EDT, Height, 113.9, [...] capsule, 1 Refills, Maintenance, 04/19/22 12:41:00 EST, [facility] #[id number], 153, cm, 01/04/22 13:15:00 EDT, Height, 113.9, kg, 10/08/21 13:23:00 EDT, Dry Weight Start Date: 04/19/22 Status: Ordered ondansetron 4 mg oral tablet 1 tablet, By Mouth, Every 8 hours, PRN NEEDED FOR NAUSEA OR VOMITING, # 30 tablet, 1 Refills, Maintenance, 04/14/22 21:15:00 EST, [facility] #[id number], 153, cm, 01/04/22 13:15:00 EDT, Height, 113.9, kg, 10/08/21 13:23:00 EDT, Dry Weight Start Date: 04/14/22 Status: Ordered oxybutynin 5 mg oral tablet 1 tablet, By Mouth, 3 times a day, # 270 tablet, 1 Refills, 01/10/22 10:29:00 EDT, [facility] #[id number], 153, cm, 01/04/22 13:15:00 EDT, Height, 113.9, [...] 04/14/22 21:16:00 EST, Route to Pharmacy Electronically, [facility] #[id number], Partial fill upon patient request if the... [...] Personnel Name: Candis CARDENAS, Kaiden Villalta Position: [facility] Primary Care Physician Member Role: PCP Address: Address: [address] [place] [address] Adult & [place] [address]- Care Team Related Persons Name: RODOLFO SHEIKH Address: home [address] [facility] [address] [place] [address] Name: CHIARA TEE Address: home [address] [place] [address] [place] [address]
--- OUTSIDE RECORDS SUMMARY | 2022-12-30 08:24 | XMS_ITS | Continuity of Care Document ---
Author Name Unknown Organization [facility] Address [address] [place] [address]- Care Team Providers Care Drilling Fluids Specialist Name Role Phone Kaiden Chirinos MD Primary Care Physician Encounter [facility] [place] Date(s): 12/14/20 - 01/13/21 [facility] [address] [place], [place] [address] Attending Physician: AdmJc campo Admitting Physician: AdmtrJc Referring Physician: Admtr, [id number] [...] 12/24/20 16:08:00 EDT, Route to Pharmacy Electronically, [facility]/pharmacy #[id number], Partial fill upon patient request if the prescription is for a schedule II... Start Date: 12/24/20 Status: Ordered baclofen 10 mg oral tablet 10 mg, 1, tablet, By Mouth, 3 times a day, PRN, # 30 tablet, Refills 0, Tot. Refills 0, Maintenance, Spasm, 01/31/19 21:47:23 EDT, Route to Pharmacy Electronically, [id number], [facility]/pharmacy #[id number] Start Date: 01/31/19 Stop Date: 02/14/19 Status: Ordered clonazePAM 0.5 mg oral tablet 1 tablet = 0.5 mg, By Mouth, 4 times a day, PRN Anxiety, Patient on controlled substance contract. Please do NOT fill until 09/23/2020, # 112 tablet, 0 Refills, Maintenance, 11/18/20 21:02:00 EDT, Tablet, [facility]/pharmacy #[id number], Partial fill upon patient... Start Date: 11/18/20 Status: Ordered Famotidine 0 Refills, Maintenance, 04/07/19 16:11:00 EST Start Date: 04/07/19 Status: Ordered gabapentin 800 mg oral tablet 1 tablet = 800 mg, By Mouth, 4 times a day, # 360 tablet, 1 Refills, Maintenance, 11/09/20 23:47:00EDT, Tablet, [facility]/pharmacy #[id number], Partial fill [...] 1 Refills, Maintenance, 11/05/20 11:43:00 EDT, Tablet, [facility]/pharmacy #[id number], Partial fill upon patient request if the prescription is for a schedule II opioid drug., 160, cm, 10/30/20 8:2... Start Date: 11/05/20 Status: Ordered meloxicam 15 mg oral tablet See Instructions, PRN Pain , Moderate, 0.5 to1 tab PO daily with food, # 30 capsule, 1 Refills, Maintenance, 12/04/20 11:27:00 EDT, Tablet, [facility]/pharmacy #[id number], Partial [...]
--- OUTSIDE RECORDS SUMMARY | 2022-12-30 08:24 | XMS_ITS | Continuity of Care Document ---
Author Name Unknown Organization [facility] Address [address] [place] [address]- Care Team Providers Care Soldering Machine Operator Name Role Phone Candis CARDENAS, Kaiden Villalta Primary Care Physician Encounter [facility] Date(s): 12/28/21 - 01/27/22 [facility] [address] [place] [address]- Allergies, Adverse Reactions, Alerts Substance Reaction Severity [...] 8.5 Gm,0 Refills, Maintenance, 12/22/21 10:40:00 EDT, [facility] #[id number], 2 puffs Inhalation Every 4 hours,PRN: NEEDED FOR WHEEZING/cough/shortness... Start Date: 12/22/21 Status: Ordered albuterol 0.083% inhalation solution 3 mL = 2.5 mg, Inhalation, Every 4 hours, PRN for wheezing/cough/shortness of breath, # 25 each, 0 Refills, Maintenance, 10/14/21 22:10:00 EDT, Solution, [facility] #[id number], Partial fill upon patient request if the [...] tablet, 0 Refills, Maintenance, 12/27/21 13:43:00 EDT, [facility] #[id number], 153, cm, 10/08/21 13:23:00 EDT, Height, 113.9, [...] FOR PAIN., # 100 Gm, 1 Refills, [facility], 30, APPLY 1 GM TOPICALLY 4 TIMES A DAY FOR PAIN, 153, cm, 06/07/21 11:07:00 EST, Height, 105, kg, 05/31/21 15:15:00 EST, Dry Weight Start Date: 08/05/21 Status: Ordered Dilaudid 2 mg oral tablet 1 tablet = 2 mg, By Mouth, 2 times a day, PRN Pain , Severe, checked masspat, # 28 tablet, 0 Refills, Maintenance, 01/18/22 17:28:00 EDT, Tablet, [facility] #[id number], Partial fill upon patient request if the prescription is for a schedule II o... Start Date: 01/18/22 Status: Ordered Estrace Vaginal Cream 0.1 mg/g = 2 Gm, Vaginally, Daily at bedtime, 2g PV daily at bedtime x 2 weeks, then 1g PV 1-3x per week, # 42.5 Gm, 5 Refills, Maintenance, 11/09/21 11:17:00 EDT, [facility] #[id number], Partial fill upon patient request if the prescription is for a sche... Start Date: 11/09/21 Status: Ordered estradiol 0.0375 mg/24 hours twice weekly transdermal film, extended release See Instructions, 1 patch Topically, change patch twice a week, # 1 pack/packet, 1 Refills, Maintenance, 12/07/21 10:42:00 EDT, [facility] #[id number], Partial fill upon patient request if the prescription is for a schedule II opioid drug., 153,... Start Date: 12/07/21 Status: Ordered gabapentin 800 mg oral tablet See Instructions, TAKE 1 TABLET BY MOUTH FOUR TIMES DAILY, # 360 tablet, 0 Refills, [facility] #[id number], 153, cm, 10/08/21 13:23:00 EDT, Height, 113.9, [...] capsule, 1 Refills, Maintenance, 12/08/21 10:10:00 EDT, [facility] #[id number], 153, cm, 10/08/21 13:23:00 EDT, Height, 113.9,kg, [...] 1 Refills, Maintenance, 11/30/21 15:44:00 EDT, Tablet, [facility] #[id number], [place]... Start Date: 11/30/21 Status: Ordered levothyroxine 0.112 mg oral tablet 1 tablet, By Mouth, Daily, AVOID ANTACIDS, CALCIUM, OR IRON FOR AT LEAST 4 HOURS BEFORE OR 4 HOURS AFTER; ON AN ON AN EMPTY STOMACH, # 90 tablet, 0 Refills, Maintenance, 01/20/22 17:46:00 EDT, [facility] #[id number], 153, cm, 01/04/22 13:15:00 ED... Start Date: 01/20/22 Status: Ordered lidocaine 3% topical gel 1 application, Topically, 2 times a day, PRN as needed for pain, to replace 2% topical, # 28.5 Gm, 2 Refills, Acute 03/29/22 14:17:00 EST, 12/28/21 14:17:00 EDT, Gel, [facility] #[id number], Partial fill upon patient request if the prescription i... Start Date: 12/28/21 Stop Date: 03/29/22 Status: Ordered meloxicam 15 mg oral tablet 1/2 TO 1 TABLET, By Mouth, Daily, PRN NEEDED FOR MODERATE PAIN, # 30 tablet, 5 Refills, Maintenance, 01/10/22 20:40:00 EDT, [facility] #[id number], 153, cm, 01/04/22 13:15:00 EDT, Height, 113.9, [...] capsule, 0 Refills, Maintenance, 01/16/22 8:28:00 EDT, [facility] #[id number], 153, cm, 01/04/22 13:15:00 EDT, Height, 113.9, kg, 10/08/21 13:23:00 EDT, Dry Weight Start Date: 01/16/22 Status: Ordered ondansetron 4 mg oral tablet 1 tablet = 4 mg, By Mouth, Every 8 hours, PRN Nausea & Vomiting, # 30 tablet, 1 Refills, Maintenance, 11/10/21 14:47:00 EDT, [facility] #[id number], 153, cm, 10/08/21 13:23:00 EDT, Height, 113.9, kg, 10/08/21 13:23:00 EDT, Dry Weight Start Date: 11/10/21 Status: Ordered oxybutynin 5 mg oral tablet 1 tablet, By Mouth, 3 times a day, # 270 tablet, 1 Refills, 01/10/22 10:29:00 EDT, [facility] #[id number], 153, cm, 01/04/22 13:15:00 EDT, Height, 113.9, [...] Name: Candis CARDENAS, Kaiden Villalta Address: Address: [address] [place] [address] Adult & Pediatric Medicine [place], [place] [address]
--- OUTSIDE RECORDS SUMMARY | 2022-12-30 08:24 | XMS_ITS | Continuity of Care Document ---
Author Name Unknown Organization [facility] Address [address] [place] [address]- Care Team Providers Care Administrative Intern Name Role Phone Candis CARDENAS, Kaiden Villalta Primary Care Physician Encounter [facility] Date(s): 12/28/21 - 01/27/22 [facility] [address] [place], [place] [address] Allergies, Adverse Reactions, Alerts [...] 8.5 Gm,0 Refills, Maintenance, 12/22/21 10:40:00 EDT, [facility] #[id number], 2 puffs Inhalation Every 4 hours,PRN: NEEDED FOR WHEEZING/cough/shortness... Start Date: 12/22/21 Status: Ordered albuterol 0.083% inhalation solution 3 mL = 2.5 mg, Inhalation, Every 4 hours, PRN for wheezing/cough/shortness of breath, # 25 each, 0 Refills, Maintenance, 10/14/21 22:10:00 EDT, Solution, [facility] #[id number], Partial fill upon patient request if the [...] tablet, 0 Refills, Maintenance, 12/27/21 13:43:00 EDT, [facility] #[id number], 153, cm, 10/08/21 13:23:00 EDT, Height, 113.9, kg, 10/08/21 13:23:00EDT, Dry Weight Start Date: 12/27/21 Status: Ordered clonazePAM 0.5 mg oral tablet 1 tablet = 0.5 mg, By Mouth, 4 times a day, PRN Anxiety, Patient on controlled substance contract. Please do NOT fill until 09/23/2020, # 112 tablet, 0 Refills, Maintenance, 11/18/20 21:02:00 EDT, Tablet, [facility]/pharmacy #[id number], Partial fill upon patient... Start Date: 11/18/20 Status: Ordered diclofenac 1% topical gel = 1 Gm, Topically, 4 times a day, FOR PAIN., # 100 Gm, 1 Refills, [id number], 30, APPLY 1 GM TOPICALLY 4 TIMES A DAY FOR PAIN, 153, cm, 06/07/21 11:07:00 EST, Height, 105, kg, 05/31/21 15:15:00 EST, Dry Weight Start Date: 08/05/21 Status: Ordered Dilaudid 2 mg oral tablet 1 tablet = 2 mg, By Mouth, 2 times a day, PRN Pain , Severe, checked masspat, # 28 tablet, 0 Refills, Maintenance, 01/18/22 17:28:00 EDT, Tablet, [facility] #[id number], Partial fill upon patient request if the prescription is for a schedule II o... Start Date: 01/18/22 Status: Ordered Estrace Vaginal Cream 0.1 mg/g = 2 Gm, Vaginally, Daily at bedtime, 2g PV daily at bedtime x 2 weeks, then 1g PV 1-3x per week, # 42.5 Gm, 5 Refills, Maintenance, 11/09/21 11:17:00 EDT, [facility] #[id number], Partial fill upon patient request if the prescription is for a sche... Start Date: 11/09/21 Status: Ordered estradiol 0.0375 mg/24 hours twice weekly transdermal film, extended release See Instructions, 1 patch Topically, change patch twice a week, # 1 pack/packet, 1 Refills, Maintenance, 12/07/21 10:42:00 EDT, [facility] #[id number], Partial fill upon patient request if the prescription is for a schedule II opioid drug., 153,... Start Date: 12/07/21 Status: Ordered gabapentin 800 mg oral tablet See Instructions, TAKE 1 TABLET BY MOUTH FOUR TIMES DAILY, # 360 tablet, 0 Refills, [facility] #[id number], 153, cm, 10/08/21 13:23:00 EDT, Height, 113.9, [...] capsule, 1 Refills, Maintenance, 12/08/21 10:10:00 EDT, [facility] #[id number], 153, cm, 10/08/21 13:23:00 EDT, Height, 113.9,kg, [...] 1 Refills, Maintenance, 11/30/21 15:44:00 EDT, Tablet, [facility] #[id number], [place]... Start Date: 11/30/21 Status: Ordered levothyroxine 0.112 mg oral tablet 1 tablet, By Mouth, Daily, AVOID ANTACIDS, CALCIUM, OR IRON FOR AT LEAST 4 HOURS BEFORE OR 4 HOURS AFTER; ON AN ON AN EMPTY STOMACH, # 90 tablet, 0 Refills, Maintenance, 01/20/22 17:46:00 EDT, [facility] #[id number], 153, cm, 01/04/22 13:15:00 ED... Start Date: 01/20/22 Status: Ordered lidocaine 3% topical gel 1 application, Topically, 2 times a day, PRN as needed for pain, to replace 2% topical, # 28.5 Gm, 2 Refills, Acute 03/29/22 14:17:00 EST, 12/28/21 14:17:00 EDT, Gel, [facility] #[id number], Partial fill upon patient request if the prescription i... Start Date: 12/28/21 Stop Date: 03/29/22 Status: Ordered meloxicam 15 mg oral tablet 1/2 TO 1 TABLET, By Mouth, Daily, PRN NEEDED FOR MODERATE PAIN, # 30 tablet, 5 Refills, Maintenance, 01/10/22 20:40:00 EDT, [facility] #[id number], 153, cm, 01/04/22 13:15:00 EDT, Height, 113.9, [...] capsule, 0 Refills, Maintenance, 01/16/22 8:28:00 EDT, [facility] #[id number], 153, cm, 01/04/22 13:15:00 EDT, Height, 113.9, kg, 10/08/21 13:23:00 EDT, Dry Weight Start Date: 01/16/22 Status: Ordered ondansetron 4 mg oral tablet 1 tablet = 4 mg, By Mouth, Every 8 hours, PRN Nausea & Vomiting, # 30 tablet, 1 Refills, Maintenance, 11/10/21 14:47:00 EDT, [facility] #[id number], 153, cm, 10/08/21 13:23:00 EDT, Height, 113.9, kg, 10/08/21 13:23:00 EDT, Dry Weight Start Date: 11/10/21 Status: Ordered oxybutynin 5 mg oral tablet 1 tablet, By Mouth, 3 times a day, # 270 tablet, 1 Refills, 01/10/22 10:29:00 EDT, [facility] #[id number], 153, cm, 01/04/22 13:15:00 EDT, Height, 113.9, [...] Name: Candis CARDENAS, Kaiden Villalta Address: Address: [address] [place] [address] Adult [facility] Pediatric Medicine [place], [place] [address]
--- OUTSIDE RECORDS SUMMARY | 2022-12-30 08:24 | XMS_ITS | Continuity of Care Document ---
Author Name Unknown Organization [facility] Address [address] [place], [place] [address]sarah espana, [address] [place] [address]- Care Team Providers Care Tdp Displays Analyst Name Role Phone Candis CARDENAS, Kaiden Villalta Primary Care Physician [phone] Encounter [facility] Date(s): 05/05/22 - 06/04/22 [facility] [address] [place] [address] Drive, [address] [place] [address]- Allergies, Adverse Reactions, Alerts Substance Reaction Severity [...] 8.5 Gm,0 Refills, Maintenance, 12/22/21 10:40:00 EDT, [facility] #[id number], 2 puffs Inhalation Every 4 hours,PRN: NEEDED FOR WHEEZING/cough/shortness... Start Date: 12/22/21 Status: Ordered albuterol 0.083% inhalation solution 3 mL = 2.5 mg, Inhalation, Every 4 hours, PRN for wheezing/cough/shortness of breath, # 25 each, 0 Refills, Maintenance, 10/14/21 22:10:00 EDT, Solution, [facility] #[id number], Partial fill upon patient request if the prescription is for a sched... Start Date: 10/14/21 Status: Ordered [place] Saline Mist 0.65% nasal spray 2 sprays, Nares, Both, 4 times a day, # 1 each, 0 Refills, Maintenance, 02/04/22 13:32:00 EDT, [facility] #[id number], Partial fill upon patient request if the [...] tablet, 0 Refills, Maintenance, 12/27/21 13:43:00 EDT, [facility] #[id number], 153, cm, 10/08/21 13:23:00 EDT, Height, 113.9, [...] # 100 Gm, 1 Refills, [id number], 30, APPLY 1 GM TOPICALLY 4 TIMES A DAY FOR PAIN, 153, cm, 06/07/21 11:07:00 EST, Height, 105, kg, 05/31/21 15:15:00 EST, Dry Weight Start Date: 08/05/21 Status: Ordered Dilaudid 2 mg oral tablet 1 tablet = 2 mg, By Mouth, 2 times a day, PRN Pain , Severe, checked masspat, # 56 tablet, 0 Refills, Maintenance, 05/31/22 15:38:00 EST, Tablet, [facility] #[id number], Partial fill upon patient request if the prescription is for a schedule II o... Start Date: 05/31/22 Status: Ordered Estrace Vaginal Cream 0.1 mg/g = 2 Gm, Vaginally, Daily at bedtime, 2g PV daily at bedtime x 2 weeks, then 1g PV 1-3x per week, # 42.5 Gm, 5 Refills, Maintenance, 11/09/21 11:17:00 EDT, [facility] #[id number], Partial fill upon patient request if the prescription is for a sche... Start Date: 11/09/21 Status: Ordered Estradiol Patch 0.0375 mg/24 hours twice weekly transdermal film, extended release See Instructions, APPLY 1 PATCH TOPICALLY TWICE WEEKLY DIRECTED, # 8 patch, 6 Refills, Maintenance, 03/23/22 16:10:00 EST, [facility] #[id number], 28, APPLY 1 PATCH TOPICALLY TWICE WEEKLY DIRECTED, 153, cm, 01/04/22 13:15:00 EDT, Height, 11... Start Date: 03/23/22 Status: Ordered fluconazole 150 mg oral tablet 1 tablet = 150 mg, By Mouth, Once, PRN vaginal yeast infection, # 1 tablet, 0 Refills, Soft Stop, 03/15/22 10:42:00 EST, Tablet, [facility] #[id number], Partial fill upon patient request if the prescription is for a schedule II opioid drug., 153,... Start Date: 03/15/22 Status: Ordered fluticasone 50 mcg/inh nasal spray See Instructions, SHAKE LIQUID AND USE 1 SPRAY IN EACH NOSTRIL TWICE DAILY, # 16 Gm, 1 Refills, Maintenance, 05/18/22 13:57:00 EST, [facility] #[id number], 30, SHAKE LIQUID AND USE 1 SPRAY IN EACH NOSTRIL TWICE DAILY, 153, cm, 04/25/22 16:23:00 E... Start Date: 05/18/22 Status: Ordered gabapentin 800 mg oral tablet 1 tablet, By Mouth, 4 times a day, # 360 tablet, 1 Refills, Maintenance, 04/19/22 12:59:00 EST, [facility] #[id number], 153, cm, 01/04/22 13:15:00 EDT, Height, 113.9, [...] capsule, 1 Refills, Maintenance, 05/20/22 12:57:00 EST, [facility] #[id number], 153, cm, 04/25/22 16:23:00 EST, Height, 109, [...] 1 Refills, Maintenance, 04/28/22 13:51:00 EST, Tablet, [facility] #[id number], Partial fill upon patient request if the prescription is for a schedule II opioid drug., 153, cm... Start Date: 04/28/22 Status: Ordered lidocaine 4% topical cream 1 application, Topically, 3 times a day, PRN pain of forearms, # 30 Gm, 1 Refills, Acute 06/23/22 16:24:00 EST, 04/25/22 16:23:00 EST, Cream, [facility] #[id number], Partial fill upon patient request if the prescription is for a schedule II opioi... Start Date: 04/25/22 Stop Date: 06/23/22 Status: Ordered meloxicam 15 mg oral tablet 1/2 TO 1 TABLET, By Mouth, Daily, PRN NEEDED FOR MODERATE PAIN, # 30 tablet, 5 Refills, Maintenance, 01/10/22 20:40:00 EDT, [facility] #[id number], 153, cm, 01/04/22 13:15:00 EDT, Height, 113.9, [...] capsule, 1 Refills, Maintenance, 04/19/22 12:41:00 EST, [facility] #[id number], 153, cm, 01/04/22 13:15:00 EDT, Height, 113.9, kg, 10/08/21 13:23:00 EDT, Dry Weight Start Date: 04/19/22 Status: Ordered ondansetron 4 mg oral tablet 1 tablet, By Mouth, Every 8 hours, PRN NEEDED FOR NAUSEA OR VOMITING, # 30 tablet, 1 Refills, Maintenance, 04/14/22 21:15:00 EST, [facility] #[id number], 153, cm, 01/04/22 13:15:00 EDT, Height, 113.9, kg, 10/08/21 13:23:00 EDT, Dry Weight Start Date: 04/14/22 Status: Ordered oxybutynin 5 mg oral tablet 1 tablet, By Mouth, 3 times a day, # 270 tablet, 1 Refills, 01/10/22 10:29:00 EDT, [facility] #[id number], 153, cm, 01/04/22 13:15:00 EDT, Height, 113.9, [...] 04/14/22 21:16:00 EST, Route to Pharmacy Electronically, [facility] #[id number], Partial fill upon patient request if the... [...] Personnel Name: Candis CARDENAS, Kaiden Villalta Position: [facility] Primary Care Physician Member Role: PCP Address: Address: [address] [place] [address] Adult & [place] [address]- Care Team Related Persons Name: RODOLFO SHEIKH Address: home [address] [facility] [address] [place] [id number] Name: CHIARA TEE Address: home [address] [place] [address] [place] [address]
--- OUTSIDE RECORDS SUMMARY | 2022-12-30 08:24 | XMS_ITS | Continuity of Care Document ---
Author Name Unknown Organization [facility] Address [address] [place], [place] [address]sarah espana, [address] [place] [address]- Care Team Providers Care Chronometer Adjuster Name Role Phone Candis CARDENAS, Kaiden Villalta Primary Care Physician Encounter [facility] Date(s): 03/30/22 - 04/29/22 [facility] [address] [place] [address] Drive, [address] [place] [address]- Allergies, Adverse Reactions, Alerts Substance Reaction Severity [...] 8.5 Gm,0 Refills, Maintenance, 12/22/21 10:40:00 EDT, [facility] #[id number], 2 puffs Inhalation Every 4 hours,PRN: NEEDED FOR WHEEZING/cough/shortness... Start Date: 12/22/21 Status: Ordered albuterol 0.083% inhalation solution 3 mL = 2.5 mg, Inhalation, Every 4 hours, PRN for wheezing/cough/shortness of breath, # 25 each, 0 Refills, Maintenance, 10/14/21 22:10:00 EDT, Solution, [facility] #[id number], Partial fill upon patient request if the prescription is for a sched... Start Date: 10/14/21 Status: Ordered [place] Saline Mist 0.65% nasal spray 2 sprays, Nares, Both, 4 times a day, # 1 each, 0 Refills, Maintenance, 02/04/22 13:32:00 EDT, [facility] #[id number], Partial fill upon patient request if the [...] 05/06/22 12:14:00 EST, 04/29/22 12:14:00 EST, Tablet, [facility] #[id number], Partial fill upon patient request if the prescription is for a jasmin... Start Date: 04/29/22 Stop Date: 05/06/22 Status: Ordered cetirizine 10 mg oral tablet 1 tablet, By Mouth, Daily, PRN allergies, # 90 tablet, 0 Refills, Maintenance, 12/27/21 13:43:00 EDT, [facility] #[id number], 153, cm, 10/08/21 13:23:00 EDT, Height, 113.9, kg, 10/08/21 13:23:00EDT, Dry Weight Start Date: 12/27/21 Status: Ordered clonazePAM 0.5 mg oral tablet 1 tablet = 0.5 mg, By Mouth, 4 times a day, PRN Anxiety, Patient on controlled substance contract. Please do NOT fill until 09/23/2020, # 112 tablet, 0 Refills, Maintenance, 11/18/20 21:02:00 EDT, Tablet, [facility]/pharmacy #[id number], Partial fill upon patient... Start Date: 11/18/20 Status: Ordered diclofenac 1% topical gel = 1 Gm, Topically, 4 times a day, FOR PAIN., # 100 Gm, 1 Refills, [facility] [id number], 30, APPLY 1 GM TOPICALLY 4 TIMES A DAY FOR PAIN, 153, cm, 06/07/21 11:07:00 EST, Height, 105, kg, 05/31/21 15:15:00 EST, Dry Weight Start Date: 08/05/21 Status: Ordered Dilaudid 2 mg oral tablet 1 tablet = 2 mg, By Mouth, 2 times a day, PRN Pain , Severe, checked masspat, # 56 tablet, 0 Refills, Maintenance, 04/07/22 21:32:00 EST, Tablet, [facility] #[id number], Partial fill upon patient request if the prescription is for a schedule II o... Start Date: 04/07/22 Status: Ordered doxycycline monohydrate 100 mg oral capsule 1 capsule = 100 mg, By Mouth, 2 times a day, for 10 days, take with food, # 20 capsule, 0 Refills, Acute 05/05/22 16:17:00 EST, 04/25/22 16:17:00 EST, Capsule, [facility] #[id number], Partial fill upon patient request if the prescription is for a... Start Date: 04/25/22 Stop Date: 05/05/22 Status: Ordered Estrace Vaginal Cream 0.1 mg/g = 2 Gm, Vaginally, Daily at bedtime, 2g PV daily at bedtime x 2 weeks, then 1g PV 1-3x per week, # 42.5 Gm, 5 Refills, Maintenance, 11/09/21 11:17:00 EDT, [facility] #[id number], Partial fill upon patient request if the prescription is for a sche... Start Date: 11/09/21 Status: Ordered Estradiol Patch 0.0375 mg/24 hours twice weekly transdermal film, extended release See Instructions, APPLY 1 PATCH TOPICALLY TWICE WEEKLY DIRECTED, # 8 patch, 6 Refills, Maintenance, 03/23/22 16:10:00 EST, [facility] #[id number], 28, APPLY 1 PATCH TOPICALLY TWICE WEEKLY DIRECTED, 153, cm, 01/04/22 13:15:00 EDT, Height, 11... Start Date: 03/23/22 Status: Ordered Flonase 50 mcg/inh nasal spray 1 sprays, Nares, Both, 2 times a day, # 16 Gm, 0 Refills, Maintenance, 04/19/22 14:04:00 EST, [place], [facility] #[id number], Partial fill upon patient request if the prescription is for a schedule II opioid drug., 1 sprays Nares, Both 2 times a d... Start Date: 04/19/22 Status: Ordered fluconazole 150 mg oral tablet 1 tablet = 150 mg, By Mouth, Once, PRN vaginal yeast infection, # 1 tablet, 0 Refills, Soft Stop, 03/15/22 10:42:00 EST, [facility] #[id number], Partial fill upon patient request if the prescription is for a schedule II opioid drug., 153,... Start Date: 03/15/22 Status: Ordered gabapentin 800 mg oral tablet 1 tablet, By Mouth, 4 times a day, # 360 tablet, 1 Refills, Maintenance, 04/19/22 12[facility]59:[id number], 153, cm, 01/04/22 13:15:00 EDT, Height, 113.9, [...] 1 Refills, Maintenance, 12/08/21 10:10:00 EDT, [facility] #[id number], 153, cm, 10/08/21 13:23:00 EDT, Height, 113.9,kg, [...] 1 Refills, Maintenance, 04/28/22 13:51:00 EST, Tablet, [facility] #[id number], Partial fill upon patient request if the prescription is for a schedule II opioid drug., 153, cm... Start Date: 04/28/22 Status: Ordered lidocaine 4% topical cream 1 application, Topically, 3 times a day, PRN pain of forearms, # 30 Gm, 1 Refills, Acute 06/23/22 16:24:00 EST, 04/25/22 16:23:00 EST, Cream, [facility] #[id number], Partial fill upon patient request if the prescription is for a schedule II opioi... Start Date: 04/25/22 Stop Date: 06/23/22 Status: Ordered meloxicam 15 mg oral tablet 1/2 TO 1 TABLET, By Mouth, Daily, PRN NEEDED FOR MODERATE PAIN, # 30 tablet, 5 Refills, Maintenance, 01/10/22 20:40:00 EDT, [facility] #[id number], 153, cm, 01/04/22 13:15:00 EDT, Height, 113.9, [...] capsule, 1 Refills, Maintenance, 04/19/22 12:41:00 EST, [facility] #[id number], 153, cm, 01/04/22 13:15:00 EDT, Height, 113.9, kg, 10/08/21 13:23:00 EDT, Dry Weight Start Date: 04/19/22 Status: Ordered ondansetron 4 mg oral tablet 1 tablet, By Mouth, Every 8 hours, PRN NEEDED FOR NAUSEA OR VOMITING, # 30 tablet, 1 Refills, Maintenance, 04/14/22 21:15:00 [facility], [facility] #[id number], 153, cm, 01/04/22 13:15:00 EDT, Height, 113.9, kg, 10/08/21 13:23:00 EDT, Dry Weight Start Date: 04/14/22 Status: Ordered oxybutynin 5 mg oral tablet 1 tablet, By Mouth, 3 times a day, # 270 tablet, 1 Refills, 01/10/22 10:29:00 EDT, [facility] #[id number], 153, cm, 01/04/22 13:15:00 EDT, Height, 113.9, [...] 04/14/22 21:16:00 EST, Route to Pharmacy Electronically, [facility] #[id number], Partial fill upon patient request if the... [...] Physician Member Role: PCP Address: Address: [address] [place] [address] Adult & Pediatric Medicine [place], [place] [address] Care Team Related Persons Name: RODOLFO SHEIKH Address: home [address] [address] Name: CHIARA TEE Address: home [address] [place] [id number]
--- OUTSIDE RECORDS SUMMARY | 2022-12-30 08:24 | XMS_ITS | Continuity of Care Document ---
Author Name Unknown Organization [facility] Address [address] [place] [address]- Care Team Providers Care Dining Service Supervisor Name Role Phone Candis CARDENAS, Kaiden Villalta Primary Care Physician [place] [facility] [place]): 12/01/21 - 12/31/21 [facility] [address] [place], [place] [address] Allergies, Adverse Reactions, Alerts [...] 8.5 Gm,0 Refills, Maintenance, 12/22/21 10:40:00 EDT, [facility] #[id number], 2 puffs Inhalation Every 4 hours,PRN: NEEDED FOR WHEEZING/cough/shortness... Start Date: 12/22/21 Status: Ordered albuterol 0.083% inhalation solution 3 mL = 2.5 mg, Inhalation, Every 4 hours, PRN for wheezing/cough/shortness of breath, # 25 each, 0 Refills, Maintenance, 10/14/21 22:10:00 EDT, Solution, [facility] #[id number], Partial fill upon patient request if the prescription is for a sched... Start Date: 10/14/21 Status: Ordered benzonatate 100 mg oral capsule 2 capsule, By Mouth, 3 times a day, PRN NEEDED FOR COUGH, # 30 capsule, 1 Refills, Maintenance, 12/10/22 15:43:00 EDT, [facility] #[id number], 153, cm, 10/08/21 13:23:00 EDT, Height, 113.9, kg, 10/08/21 13:23:00 EDT, Dry Weight Start Date: 12/10/22 Status: Ordered benzonatate 100 mg oral capsule 2 capsule, By Mouth, 3 times a day, PRN NEEDED FOR COUGH, # 30 capsule, 1 Refills, Physician Stop 12/10/22 15:43:00 EDT, 11/10/22 14:46:00 EDT, [facility] #[id number], 153, cm, 10/08/21 13:23:00 EDT, Height, 113.9, [...] tablet, 0 Refills, Maintenance, 12/27/21 13:43:00 EDT, [facility] #[id number], 153, cm, 10/08/21 13:23:00 EDT, Height, 113.9, kg, 10/08/21 13:23:00EDT, Dry Weight Start Date: 12/27/21 Status: Ordered clonazePAM 0.5 mg oral tablet 1 tablet = 0.5 mg, By Mouth, 4 times a day, PRN Anxiety, Patient on controlled substance contract. Please do NOT fill until 09/23/2020, # 112 tablet, 0 Refills, Maintenance, 11/18/20 21:02:00 EDT, Tablet, [facility]/pharmacy #[id number], Partial fill upon patient... Start Date: 11/18/20 Status: Ordered diclofenac 1% topical gel = 1 Gm, Topically, 4 times a day, FOR PAIN., # 100 Gm, 1 Refills, [facility] [id number], 30, APPLY 1 GM TOPICALLY 4 TIMES A DAY FOR PAIN, 153, cm, 06/07/21 11:07:00 EST, Height, 105, kg, 05/31/21 15:15:00 EST, Dry Weight Start Date: 08/05/21 Status: Ordered Dilaudid 2 mg oral tablet 1 tablet = 2 mg, By Mouth, 2 times a day, PRN Pain , Severe, checked masspat, # 28 tablet, 0 Refills, Maintenance, 12/22/21 10:40:00 EDT, Tablet, [facility] #[id number], Partial fill upon patient request if the prescription is for a schedule II o... Start Date: 12/22/21 Status: Ordered Estrace Vaginal Cream 0.1 mg/g = 2 Gm, Vaginally, Daily at bedtime, 2g PV daily at bedtime x 2 weeks, then 1g PV 1-3x per week, # 42.5 Gm, 5 Refills, Maintenance, 11/09/21 11:17:00 EDT, [facility] #[id number], Partial fill upon patient request if the prescription is for a sche... Start Date: 11/09/21 Status: Ordered estradiol 0.0375 mg/24 hours twice weekly transdermal film, extended release See Instructions, 1 patch Topically, change patch twice a week, # 1 pack/packet, 1 Refills, Maintenance, 12/07/21 10:42:00 EDT, [facility] #[id number], Partial fill upon patient request if the prescription is for a schedule II opioid drug., 153,... Start Date: 12/07/21 Status: Ordered gabapentin 800 mg oral tablet See Instructions, TAKE 1 TABLET BY MOUTH FOUR TIMES DAILY, # 360 tablet, 0 Refills, [facility] #[id number], 153, cm, 10/08/21 13:23:00 EDT, Height, 113.9, [...] capsule, 1 Refills, Maintenance, 12/08/21 10:10:00 EDT, [facility] #[id number], 153, cm, 10/08/21 13:23:00 EDT, Height, 113.9,kg, [...] 1 Refills, Maintenance, 07/30/21 12:25:00 EDT, Tablet, [facility] #[id number], Partial fill upon patient request if the prescription is for a schedule II opioid drug... Start Date: 07/30/21 Status: Ordered levothyroxine 0.1 mg oral tablet 1 tablet = 100 mcg, By Mouth, Daily, dose increase, # 90 tablet, 0 Refills, Maintenance, 11/01/21 16:08:00 EDT, [facility] #[id number], Please discontinue 88ug, 153, cm, 10/08/21 13:23:00 [...] 1 Refills, Maintenance, 11/30/21 15:44:00 EDT, Tablet, [facility] #[id number], [place]... Start Date: 11/30/21 Status: Ordered lidocaine 3% topical gel 1 application, Topically, 2 times a day, PRN as needed for pain, to replace 2% topical, # 28.5 Gm, 2 Refills, Acute 03/29/22 14:17:00 EST, 12/28/21 14:17:00 EDT, Gel, [facility] #[id number], Partial fill upon patient request if the prescription i... Start Date: 12/28/21 Stop Date: 03/29/22 Status: Ordered lidocaine 4% topical cream 1 application, Topically, 2 times a day, PRN Pain , Mild, # 30 Gm, 1 Refills, Acute 01/27/22 17:31:00 EDT, 12/28/21 17:31:00 EDT, Cream, [facility] #[id number], Partial fill upon patient requestif the prescription is for a schedule II opioid cedrick... Start Date: 12/28/21 Stop Date: 01/27/22 Status: Ordered meloxicam 15 mg oral tablet 1/2 TO 1 TABLET, By Mouth, Daily, PRN NEEDED FOR MODERATE PAIN, # 30 tablet, 1 Refills, :04:00 EDT, [facility] #[id number], 153, cm, 10/08/21 13:23:00 EDT, Height, 113.9, kg, 10/08/21 13:23:00 EDT, Dry Weight Start Date: 11/16/21 Status: Ordered metroNIDAZOLE 500 mg oral tablet 1 tablet = 500 mg, By Mouth, Every 12 hours, for 7 days, do not drink alcohol, # 14 tablet, 0 Refills, Acute 01/05/22 16:58:00 EDT, 12/29/21 16:58:00 EDT, Tablet, [facility] #[id number], Partialfill upon patient request if the prescription [...] 90 capsule, 0 Refills, 09/27/21 14:31:00 EDT, [facility] #[id number], 153, cm, 08/10/21 11:19:00 EDT, Height, 105, kg, 05/31/21 15:15:00 EST, Dry Weight Start Date: 09/27/21 Status: Ordered ondansetron 4 mg oral tablet 1 tablet = 4 mg, By Mouth, Every 8 hours, PRN Nausea & Vomiting, # 30 tablet, 1 Refills, Maintenance, 11/10/21 14:47:00 EDT, [facility] #[id number], 153, cm, 10/08/21 13:23:00 EDT, Height, 113.9, kg, 10/08/21 13:23:00 EDT, Dry Weight Start Date: 11/10/21 Status: Ordered oxybutynin 5 mg oral tablet 1 tablet, By Mouth, 3 times a day, # 270 tablet, 1 Refills, [id number], 153, cm, 08/10/21 11:19:00 EDT, Height, 105, [...] Team Personnel Name: Kaiden Chirinos MD Address: [address] [place] [address] [facility] [address]
--- OUTSIDE RECORDS SUMMARY | 2022-12-30 08:24 | XMS_ITS | Continuity of Care Document ---
Author Name Unknown Organization [facility] Address [address] [place] [address]- Care Team Providers Care Wind Turbine Design Engineer Name Role Phone Kaiden Chirinos MD Primary Care Physician [phone] Encounter [facility] [place] Date(s): 05/21/21 - 06/20/21 [facility] [address] [place], [place] [address] Allergies, Adverse Reactions, Alerts Substance [...] # 8.5 each, 0 Refills, [id number], 20, INHALE 2 PUFFS BY MOUTH EVERY [...] Pharmacy Electronically, [facility]/pharmacy #[id number], Partial fill upon patient request if the prescription is for a schedule II... Start Date: 12/24/20 Status: Ordered baclofen 10 mg oral tablet 10 mg, 1, tablet, By Mouth, 3 times a day, PRN, # 30 tablet, Refills 0, Tot. Refills 0, Maintenance, Spasm, 01/31/19 21:47:23 EDT, Route to Pharmacy Electronically, [id number], [facility]/pharmacy #[id number] Start [...] 02/19/22 16:55:00 EDT, 02/19/21 16:54:00 EDT, [facility]/pharmacy #[id number], [...] 06/24/21 17:15:00 EST, 06/10/21 17:12:00 EST, Tablet, [facility]/pharmacy #[id number], Partial fill upon patient request if the prescription is for a schedule... Start Date: 06/10/21 Stop Date: 06/24/21 Status: Ordered Famotidine 0 Refills, Maintenance, 04/07/19 16:11:00 EST Start Date: 04/07/19 Status: Ordered gabapentin 800 mg oral tablet 1 tablet, By Mouth, 4 times a day, # 360 tablet, 1 Refills, [facility] [id number], 160, cm, 03/30/21 10:47:00 EST, Height, 104.6, [...] 1 Refills, Maintenance, 06/07/21 19:08:00 EST, Capsule, [facility]/pharmacy #[id number], Partial [...] 1 Refills, Maintenance, 05/14/21 15:23:00 EST, Tablet, [facility]/pharmacy #[id number], Partial fill upon patient request if the prescription is for a schedule II opioid drug., 160, c... Start Date: 05/14/21 Status: Ordered omeprazole 20 mg oral enteric coated capsule 1 capsule, By Mouth, Daily, # 90 capsule, 1 Refills, [facility] [id number], 160, cm, 03/30/21 10:47:00 EST, Height, 104.6, kg, 12/04/20 10:52:00 EDT, Dry Weight Start Date: 03/31/21 Status: Ordered ondansetron 4 mg oral tablet See Instructions, TAKE 1 TABLET BY MOUTH EVERY 8 HOURS NEEDED FOR NAUSEA AND VOMITING, # 15 tablet, 1 Refills, Physician Stop 07/12/21 15:23:00 EDT, 05/14/21 15:22:00 EST, [facility]/pharmacy #[id number], 160,cm, 03/30/21 10:47:00 EST, Height, 104.6, kg, 12/04... Start Date: 05/14/21 Stop Date: 07/12/21 Status: Ordered oxybutynin 5 mg oral tablet 1 tablet, By Mouth, 3 times a day, dose increase, # 270 tablet, 1 Refills, Maintenance, 03/19/21 17:40:00 EST, [facility]/pharmacy #[id number], 160, cm, 12/04/20 10:52:00 EDT, Height, 104.6, kg, 12/04/20 10:52:00EDT, Dry Weight Start Date: 03/19/21 Status: Ordered Qvar Redihaler 40 mcg/inh inhalation aerosol = 40 mcg, Inhalation, 2 times a day, to replace flovent rinse mouth and throat after use, # 1 each,1 Refills, Maintenance, 03/30/21 20:35:00 EST, [facility]/pharmacy #[id number], Partial [...]
--- OUTSIDE RECORDS SUMMARY | 2022-12-30 08:24 | XMS_ITS | Continuity of Care Document ---
Author Name Unknown Organization [facility] Address [address] [place] [address]- Care Team Providers Care Progress Man Name Role Phone Candis CARDENAS, Kaiden Villalta Primary Care Physician [place] [facility] [place](s): 11/02/20 - 12/02/20 [facility] [address] [place], [place] [address] Allergies, Adverse Reactions, Alerts Substance [...] 09/22/20 16:39:00 EDT, Route to Pharmacy Electronically, [facility]/pharmacy #[id number], Partial fill upon patient request if the prescription is for a schedule II... Start Date: 09/22/20 Status: Ordered baclofen 10 mg oral tablet 10 mg, 1, tablet, By Mouth, 3 times a day, PRN, # 30 tablet, Refills 0, Tot. Refills 0, Maintenance, Spasm, 01/31/19 21:47:23 EDT, Route to Pharmacy Electronically, [id number], [facility]/pharmacy #[id number] Start Date: 01/31/19 [...] tablet, 1 Refills, Maintenance, 11/09/20 23:47:00EDT, Tablet, [facility]/pharmacy #[id number], Partial fill [...] 1 Refills, Maintenance, 11/05/20 11:43:00 EDT, Tablet, [facility]/pharmacy #[id number], Partial [...] Refills, Maintenance, 11/27/20 17:20:00 EDT, [id number], 160, cm, 10/30/20 8:28:00 EDT, Height, 105.5, kg, 10/30/20 8:28:00 EDT, Dry Weight Start Date: 11/27/20 Status: Ordered ProAir HFA 90 mcg/inh inhalation aerosol 2 puffs, Inhalation, Every 4 hours, PRN as needed for wheezing, # 8.5 Gm, 0 Refills, Maintenance, 11/16/20 8:39:00 EDT, Aerosol, [facility]/pharmacy #[id number], Partial fill upon [...] 1 Refills, Maintenance, 11/03/20 13:28:00 EDT, Tablet, [facility]/pharmacy #[id number], Partial fill upon patient request if the [...]
--- OUTSIDE RECORDS SUMMARY | 2022-12-30 08:24 | XMS_ITS | Continuity of Care Document ---
Author Name Unknown Organization [facility] Address [address] [place] [address]- Care Team Providers Care Machine Sizer Name Role Phone Kaiden Chirinos MD Primary Care Physician [place] [facility] [place] 11[place]28[place]22 [place] 12/28/22 [facility] [address] [place], [place] [address] Allergies, Adverse Reactions, Alerts [...] 8.5 Gm,0 Refills, Maintenance, 12/22/21 10:40:00 EDT, [facility] #[id number], 2 puffs Inhalation Every 4 hours,PRN: NEEDED FOR WHEEZING/cough/shortness... Start Date: 12/22/21 Status: Ordered albuterol 0.083% inhalation solution 3 mL = 2.5 mg, Inhalation, Every 4 hours, PRN for wheezing/cough/shortness of breath, # 25 each, 0 Refills, Maintenance, 03/15/23 13:08:00 EDT, Solution, [facility] #[id number], Partial fill upon patient request if the prescription is for a sched... Start Date: 06/29/22 Status: Ordered Ellabell Saline Mist 0.65% nasal spray 2 sprays, Nares, Both, 4 times a day, # 1 each, 0 Refills, Maintenance, 02/04/22 13:32:00 EDT, [facility] #[id number], Partial fill upon patient request if the [...] tablet, 0 Refills, Maintenance, 12/27/21 13:43:00 EDT, [facility] #[id number], 153, cm, 10/08/21 13:23:00 EDT, Height, 113.9, kg, 10/08/21 13:23:00EDT, Dry Weight Start Date: 12/27/21 Status: Ordered chlorhexidine 2% topical liquid See Instructions, 1 application to bilateral forearms twice weekly, # 120 mL, 3 Refills, Soft Stop,06/17/22 11:06:00 EST, Liquid, [facility] #[id number], Partial fill upon patient request if the prescription is for a schedule II opioid drug., 1... Start Date: 06/17/22 Status: Ordered chlorhexidine 4% topical soap See Instructions, apply topically twice weekly to skin on forearms, # 120 mL, 2 Refills, Soft Stop,06/17/22 16:03:00 EST, [facility] #[id number], Partial fill upon patient request [...] FOR PAIN., # 100 Gm, 1 Refills, [facility], 30, APPLY 1 GM TOPICALLY 4 TIMES [...] 0 Refills, Maintenance, 12/27/22 23:09:00 EDT, Tablet, [facility] #[id number], Partial fill upon patient request if the prescription is fo... Start Date: 12/27/22 Status: Ordered Estrace Vaginal Cream 0.1 mg/g = 2 Gm, Vaginally, Daily at bedtime, 2g PV daily at bedtime x 2 weeks, then 1g PV 1-3x per week, # 42.5 Gm, 5 Refills, Maintenance, 11/09/21 11:17:00 EDT, [facility] #[id number], Partial fill upon patient request if the prescription is for a sche... Start Date: 11/09/21 Status: Ordered Estradiol Patch 0.0375 mg/24 hours twice weekly transdermal film, extended release See Instructions, APPLY 1 PATCH TOPICALLY TWICE WEEKLY DIRECTED, # 8 patch, 1 Refills, Maintenance, 12/28/22 13:34:00 EDT, [facility] #[id number], 28, APPLY 1 PATCH TOPICALLY TWICE WEEKLY DIRECTED, 154, cm, 10/29/22 14:42:00 EDT, Height, 10... Start Date: 12/28/22 Status: Ordered fluconazole 150 mg oral tablet 1 tablet = 150 mg, By Mouth, Once, PRN vaginal yeast infection, repeat dose in 72 hours if symptomsnot resolved, # 2 tablet, 0 Refills, Soft Stop, 11/08/22 15:31:00 EDT, Tablet, [facility]#[id number], Partial fill upon patient request if the pr... Start Date: 11/08/22 Status: Ordered fluticasone 50 mcg/inh nasal spray See Instructions, SHAKE LIQUID AND USE 1 SPRAY IN EACH NOSTRIL TWICE DAILY, # 16 Gm, 1 Refills, Maintenance, 05/18/22 13:57:00 EST, [facility] #[id number], 30, SHAKE LIQUID AND USE 1 SPRAY IN EACH NOSTRIL TWICE DAILY, 153, cm, 04/25/22 16:23:00 E... Start Date: 05/18/22 Status: Ordered gabapentin 800 mg oral tablet 1 tablet, By Mouth, 4 times a day, # 360 tablet, 1 Refills, Maintenance, 10/25/22 21:47:00 EDT, [facility] #[id number], 153, cm, 06/17/22 10:53:00 EST, Height, 109, [...] capsule, 1 Refills, Maintenance, 11/15/22 11:13:00 EDT, [facility] #[id number], 154, cm, 10/29/22 14:42:00 EDT, Height, 109, [...] 1 Refills, Maintenance, 04/28/22 13:51:00 EST, Tablet, [facility] #[id number], Partial fill upon patient request if the prescription is for a schedule II opioid drug., 153, cm... Start Date: 04/28/22 Status: Ordered lidocaine 4% topical cream 1 application, Topically, 3 times a day, PRN Pain , Mild, # 30 Gm, 1 Refills, Maintenance, 06/24/2315:24:00 EST, Cream, [facility] #[id number], Partial fill upon patient request if the prescription is for a schedule II opioid drug., 1 applicatio... Start Date: 06/23/22 Status: Ordered meloxicam 15 mg oral tablet 1/2 TO 1 TABLET, By Mouth, Daily, PRN NEEDED FOR MODERATE PAIN, # 30 tablet, 5 Refills, Maintenance, 01/10/22 20:40:00 EDT, [facility] #[id number], 153, cm, 01/04/22 13:15:00 EDT, Height, 113.9, [...] capsule, 1 Refills, Maintenance, 07/26/22 14:24:00 EDT, [facility] #[id number], 153, cm, 06/17/22 10:53:00 EST, Height, 109, kg, 06/17/22 10:53:00 EST, Dry Weight Start Date: 07/26/22 Status: Ordered ondansetron 4 mg oral tablet 1 tablet, By Mouth, Every 8 hours, PRN NEEDED FOR NAUSEA OR VOMITING, # 30 tablet, 1 Refills, Maintenance, 10/27/22 23:08:00 EDT, [facility] #[id number], 153, cm, 06/17/22 10:53:00 EST, Height, 109, kg, 06/17/22 10:53:00 EST, Dry Weight Start Date: 10/27/22 Status: Ordered oxybutynin 5 mg oral tablet 1 tablet, By Mouth, 3 times a day, # 270 tablet, 1 Refills, Maintenance, 10/04/22 20:44:00 EDT, [facility] #[id number], 153, cm, 06/17/22 10:53:00 EST, Height, 109, [...] 11/18/22 16:07:00 EDT, Route to Pharmacy Electronically, [facility] #[id number], Partial fill upon patient request if the prescrip... Start Date: 11/18/22 Status: Ordered traZODone 50 mg oral tablet 1-2 tablet, By Mouth, Daily, one hour prior to bedtime. dose increase, # 60 tablet, Refills 2, Tot.Refills 2, Maintenance, 07/01/22 14:21:00 EDT, Route to Pharmacy Electronically, [facility] #[id number], Partial fill upon patient request if the... Start Date: 07/01/22 Status: Ordered triamcinolone 0.1% topical cream 1 application, Topically, 3 times a day, PRN arm rash, # 30 Gm, 1 Refills, Acute 06/08/23 9:53:00 EST, 06/08/22 9:53:00 EST, Cream, [facility] #[id number], Partial fill upon patient request if the [...] Primary Care Member Role: PCP Address: Address: [address] [place] [address]- Care Team Related Persons Name: RODOLFO SHEIKH Address: home [address] [facility] [address] [place] [address] Name: CHIARA TEE Address: home [address] [place] [address] [address] [place] [address]
--- OUTSIDE RECORDS SUMMARY | 2022-12-30 08:24 | XMS_ITS | Continuity of Care Document ---
Author Name Unknown Organization [facility] Address [address] [place], [place] [address]sarah espana, [address] [place] [address]- Care Team Providers Care Carton Wrapper Name Role Phone Candis CARDENAS, Kaiden Villalta Primary Care Physician [phone] Encounter [facility] Date(s): 03/15/22 - 04/14/22 [facility] [address] [place] [address] Drive, [address] [place] [address]- Allergies, Adverse Reactions, Alerts Substance Reaction Severity [...] 8.5 Gm,0 Refills, Maintenance, 12/22/21 10:40:00 EDT, [facility] #[id number], 2 puffs Inhalation Every 4 hours,PRN: NEEDED FOR WHEEZING/cough/shortness... Start Date: 12/22/21 Status: Ordered albuterol 0.083% inhalation solution 3 mL = 2.5 mg, Inhalation, Every 4 hours, PRN for wheezing/cough/shortness of breath, # 25 each, 0 Refills, Maintenance, 10/14/21 22:10:00 EDT, Solution, [facility] #[id number], Partial fill upon patient request if the prescription is for a sched... Start Date: 10/14/21 Status: Ordered Aurora Saline Mist 0.65% nasal spray 2 sprays, Nares, Both, 4 times a day, # 1 each, 0 Refills, Maintenance, 02/04/22 13:32:00 EDT, [facility] #[id number], Partial fill upon patient request if the [...] tablet, 0 Refills, Maintenance, 12/27/21 13:43:00 EDT, [facility] #[id number], 153, cm, 10/08/21 13:23:00 EDT, Height, 113.9, kg, 10/08/21 13:23:00EDT, Dry Weight Start Date: 12/27/21 Status: Ordered clonazePAM 0.5 mg oral tablet 1 tablet = 0.5 mg, By Mouth, 4 times a day, PRN Anxiety, Patient on controlled substance contract. Please do NOT fill until 09/23/2020, # 112 tablet, 0 Refills, Maintenance, 11/18/20 21:02:00 EDT, Tablet, [facility]/pharmacy #[id number], Partial fill upon patient... Start Date: 11/18/20 Status: Ordered diclofenac 1% topical gel = 1 Gm, Topically, 4 times a day, FOR PAIN., # 100 Gm, 1 Refills, [facility], 30, APPLY 1 GM TOPICALLY 4 TIMES A DAY FOR PAIN, 153, cm, 06/07/21 11:07:00 EST, Height, 105, kg, 05/31/21 15:15:00 EST, Dry Weight Start Date: 08/05/21 Status: Ordered Dilaudid 2 mg oral tablet 1 tablet = 2 mg, By Mouth, 2 times a day, PRN Pain , Severe, checked masspat, # 56 tablet, 0 Refills, Maintenance, 04/07/22 21:32:00 EST, Tablet, [facility] #[id number], Partial fill upon patient request if the prescription is for a schedule II o... Start Date: 04/07/22 Status: Ordered Estrace Vaginal Cream 0.1 mg/g = 2 Gm, Vaginally, Daily at bedtime, 2g PV daily at bedtime x 2 weeks, then 1g PV 1-3x per week, # 42.5 Gm, 5 Refills, Maintenance, 11/09/21 11:17:00 EDT, [facility] #[id number], Partial fill upon patient request if the prescription is for a sche... Start Date: 11/09/21 Status: Ordered Estradiol Patch 0.0375 mg/24 hours twice weekly transdermal film, extended release See Instructions, APPLY 1 PATCH TOPICALLY TWICE WEEKLY DIRECTED, # 8 patch, 6 Refills, Maintenance, 03/23/22 16:10:00 EST, [facility] #[id number], 28, APPLY 1 PATCH TOPICALLY TWICE WEEKLY DIRECTED, 153, cm, 01/04/22 13:15:00 EDT, Height, 11... Start Date: 03/23/22 Status: Ordered fluconazole 150 mg oral tablet 1 tablet = 150 mg, By Mouth, Once, PRN vaginal yeast infection, # 1 tablet, 0 Refills, Soft Stop, 03/15/22 10:42:00 EST, Tablet, [facility] #[id number], Partial fill upon patient request if the prescription is for a schedule II opioid drug., 153,... Start Date: 03/15/22 Status: Ordered gabapentin 800 mg oral tablet See Instructions, TAKE 1 TABLET BY MOUTH FOUR TIMES DAILY, # 360 tablet, 0 Refills, Maintenance, 04/13/22 20:23:00 EST, [facility] #[id number], 153, cm, 01/04/22 13:15:00 EDT, Height, 113.9, kg,10/08/21 13:23:00 EDT, Dry Weight Start Date: 04/13/22 Status: Ordered gabapentin 800 mg oral tablet 1 tablet, By Mouth, 4 times a day, # 360 tablet, 1 Refills, Maintenance, 04/13/22 20:23:00 EST, [facility] #[id number], 153, cm, 01/04/22 13:15:00 EDT, Height, 113.9, [...] capsule, 1 Refills, Maintenance, 12/08/21 10:10:00 EDT, [facility] #[id number], 153, cm, 10/08/21 13:23:00 EDT, Height, 113.9,kg, [...] 1 Refills, Maintenance, 03/14/22 15:04:00 EST, Tablet, [facility] #[id number], Partial fill upon patient request if the prescription is for a schedule II opioid drug., 153, cm... Start Date: 03/14/22 Status: Ordered meloxicam 15 mg oral tablet 1/2 TO 1 TABLET, By Mouth, Daily, PRN NEEDED FOR MODERATE PAIN, # 30 tablet, 5 Refills, Maintenance, 01/10/22 20:40:00 EDT, [facility] #[id number], 153, cm, 01/04/22 13:15:00 EDT, Height, 113.9, [...] capsule, 0 Refills, Maintenance, 01/16/22 8:28:00 EDT, [facility] #[id number], 153, cm, 01/04/22 13:15:00 EDT, Height, 113.9, kg, 10/08/21 13:23:00 EDT, Dry Weight Start Date: 01/16/22 Status: Ordered ondansetron 4 mg oral tablet 1 tablet, By Mouth, Every 8 hours, PRN NEEDED FOR NAUSEA OR VOMITING, # 30 tablet, 1 Refills, Maintenance, 04/14/22 21:15:00 EST, [facility] #[id number], 153, cm, 01/04/22 13:15:00 EDT, Height, 113.9, kg, 10/08/21 13:23:00 EDT, Dry Weight Start Date: 04/14/22 Status: Ordered oxybutynin 5 mg oral tablet 1 tablet, By Mouth, 3 times a day, # 270 tablet, 1 Refills, 01/10/22 10:29:00 EDT, [facility] #[id number], 153, cm, 01/04/22 13:15:00 EDT, Height, 113.9, [...] 04/14/22 21:16:00 EST, Route to Pharmacy Electronically, [facility] #[id number], Partial fill upon patient request if the... [...] Personnel Name: Candis CARDENAS, Kaiden Villalta Position: [facility] Primary Care Physician Member Role: PCP Address: Address: [address] [place] [address] Adult & [place] [address]- Care Team Related Persons Name: RODOLFO SHEIKH Address: home [address] [facility] [address] [place] [address] Name: CHIARA TEE Address: home [address] [place] [address] [place] [id number]
--- OUTSIDE RECORDS SUMMARY | 2022-12-30 08:24 | XMS_ITS | Continuity of Care Document ---
Author Name Unknown Organization [facility][1] Adult and Pedi Address [address] [place] [address]- Care Team Providers Care Certified Genetic Counselor Name Role Phone Candis CARDENAS, Kaiden Villalta Primary Care Physician [phone] [id number] Date(s[facility] 06/30/21 - 07/30/21 [facility][1] Adult [facility] [address] [place], [place] [address] Allergies, Adverse Reactions, Alerts Substance [...] # 8.5 each, 0 Refills, [id number], 20, INHALE 2 PUFFS BY MOUTH EVERY 4 HOURS NEEDED FOR WHEEZING, 160, cm, 03/30/21 10:47:00 EST, Height, 104.6, kg, 12/04/20 10:52:00 EDT, Dry Weight Start Date: 04/28/21 Status: Ordered amitriptyline 10 mg oral tablet 10 mg, 1, tablet, By Mouth, Daily at bedtime, # 90 tablet, Refills 1, Tot. Refills 1, Maintenance, 07/30/21 12:25:00 EDT, Route to Pharmacy Electronically, [facility] #[id number], Partial fill upon patient request if the prescription is for a jasmin... Start Date: 07/30/21 Status: Ordered benzonatate 100 mg oral capsule 2 capsule, By Mouth, 3 times a day, PRN NEEDED FOR COUGH, # 30 capsule, 1 Refills, Physician Stop 03/19/22 17:38:00 EST, 02/19/22 16:55:00 EDT, [facility]/pharmacy #[id number], 160, cm, 12/04/20 10:52:00 EDT, Height, 104.6, kg, 12/04/20 10:52:00 EDT, Dry Weight Start Date: 02/19/22 Stop Date: 03/19/22 Status: Ordered benzonatate 100 mg oral capsule 2 capsule, By Mouth, 3 times a day, PRN NEEDED FOR COUGH, # 30 capsule, 1 Refills, Physician Stop 02/19/22 16:55:00 EDT, 02/19/21 16:54:00 EDT, [facility]/pharmacy #[id number], 160, cm, 12/04/20 [...] 0 Refills, Maintenance, 11/18/20 21:02:00 EDT, Tablet, [facility]/pharmacy #[id number], Partial fill upon patient... Start Date: 11/18/20 Status: Ordered Dilaudid 2 mg oral tablet 1 tablet = 2 mg, By Mouth, 2 times a day, PRN Pain , Severe, # 28 tablet, 0 Refills, Maintenance, 07/21/21 12:23:00 EDT, Tablet, [facility] #[id number], Partial fill upon patient request if the prescription is for a schedule II opioid drug., 153,... Start Date: 07/21/21 Status: Ordered Famotidine 0 Refills, Maintenance, 04/07/19 16:11:00 EST Start Date: 04/07/19 Status: Ordered gabapentin 800 mg oral tablet 1 tablet, By Mouth, 4 times a day, # 360 tablet, 1 Refills, [id number], 160, cm, 03/30/21 10:47:00 EST, Height, 104.6, [...] 1 Refills, Maintenance, 07/30/21 12:25:00 EDT, Capsule, [facility] #[id number], Partial fill upon patient request if the [...] 1 Refills, Maintenance, 07/30/21 12:25:00 EDT, Tablet, [facility] #[id number], Partial fill upon patient request if the prescription is for a schedule II opioid drug... Start Date: 07/30/21 Status: Ordered omeprazole 20 mg oral enteric coated capsule 1 capsule, By Mouth, Daily, # 90 capsule, 1 Refills, [facility], 160, cm, 03/30/21 10:47:00 EST, Height, 104.6, [...] 1 Refills, Maintenance, 07/30/21 12:25:00 EDT, Tablet, [facility] #[id number], Partial fill upon patient request if the [...] 1 Refills, Maintenance, 06/11/21 14:11:00 EST, Gel, [facility]/pharmacy #0969, Partial fill upon patient request if the prescriptionis for a schedule II opioid drug., 1 Gm Topically 4... Start Date: 06/11/21 Status: Ordered ZyrTEC 10 mg oral tablet 1 tablet = 10 mg, By Mouth, Daily, # 90 tablet, 1 Refills, Maintenance, 07/30/21 12:22:00 EDT, Tablet, [facility] #[id number], Partial fill upon patient request if the [...]
--- OUTSIDE RECORDS SUMMARY | 2022-12-30 08:24 | XMS_ITS | Continuity of Care Document ---
Author Name Unknown Organization [facility] Address [address] [place] [address]- Care Team Providers Care Audit Partner Name Role Phone Candis CARDENAS, Kaiden Villalta Primary Care Physician [phone] Encounter [facility] [place] Date(s): 11/02/20 - 12/02/20 [facility] [address] [place], [place] [address] Allergies, Adverse Reactions, Alerts Substance [...] 09/22/20 16:39:00 EDT, Route to Pharmacy Electronically, [facility]/pharmacy #[id number], Partial fill upon patient request if the prescription is for a schedule II... Start Date: 09/22/20 Status: Ordered baclofen 10 mg oral tablet 10 mg, 1, tablet, By Mouth, 3 times a day, PRN, # 30 tablet, Refills 0, Tot. Refills 0, Maintenance, Spasm, 01/31/19 21:47:23 EDT, Route to Pharmacy Electronically, [id number], [facility]/pharmacy #[id number] Start Date: 01/31/19 Stop Date: 02/14/19 Status: Ordered clonazePAM 0.5 mg oral tablet 1 tablet = 0.5 mg, By Mouth, 4 times a day, PRN Anxiety, Patient on controlled substance contract. Please do NOT fill until 09/23/2020, # 112 tablet, 0 Refills, Maintenance, 11/18/20 21:02:00 EDT, Tablet, [facility]/pharmacy #[id number], Partial fill upon patient... Start Date: 11/18/20 Status: Ordered Famotidine 0 Refills, Maintenance, 04/07/19 16:11:00 EST Start Date: 04/07/19 Status: Ordered gabapentin 800 mg oral tablet 1 tablet = 800 mg, By Mouth, 4 times a day, # 360 tablet, 1 Refills, Maintenance, 11/09/20 23:47:00EDT, Tablet, [facility]/pharmacy #[id number], Partial fill upon patient request [...] 1 Refills, Maintenance, 11/05/20 11:43:00 EDT, Tablet, [facility]/pharmacy #[id number], Partial fill upon patient request [...] Refills, Maintenance, 11/27/20 17:20:00 EDT, [id number], 160, cm, 10/30/20 8:28:00 EDT, Height, 105.5, kg, 10/30/20 8:28:00 EDT, Dry Weight Start Date: 11/27/20 Status: Ordered ProAir HFA 90 mcg/inh inhalation aerosol 2 puffs, Inhalation, Every 4 hours, PRN as needed for wheezing, # 8.5 Gm, 0 Refills, Maintenance, 11/16/20 8:39:00 EDT, Aerosol, [facility]/pharmacy #[id number], Partial fill upon patient request [...] 1 Refills, Maintenance, 11/03/20 13:28:00 EDT, Tablet, [facility]/pharmacy #[id number], Partial fill upon patient request if the [...]
--- OUTSIDE RECORDS SUMMARY | 2022-12-30 08:24 | XMS_ITS | Continuity of Care Document ---
Author Name Unknown Organization [facility] Address [address] [place] [address]- Care Team Providers Care Mold Shop Supervisor Name Role Phone Candis CARDENAS, Kaiden Villalta Primary Care Physician [place] [facility] [place] Date(s): 01/22/21 - 02/21/21 [facility] [address] [place], [place] [address] Allergies, Adverse Reactions, Alerts [...] 16:08:00 EDT, Route to Pharmacy Electronically, [facility]/pharmacy #[id number], Partial fill upon patient request if the prescription is for a schedule II... Start Date: 12/24/20 Status: Ordered baclofen 10 mg oral tablet 10 mg, 1, tablet, By Mouth, 3 times a day, PRN, # 30 tablet, Refills 0, Tot. Refills 0, Maintenance, Spasm, 01/31/19 21:47:23 EDT, Route to Pharmacy Electronically, [id number], [facility]/pharmacy #[id number] Start Date: 01/31/19 Stop Date: 02/14/19 Status: Ordered benzonatate 100 mg oral capsule 2 capsule, By Mouth, 3 times a day, PRN NEEDED FOR COUGH, # 30 capsule, 1 Refills, Physician Stop 02/19/22 16:55:00 EDT, 02/19/21 16:54:00 EDT, [facility]/pharmacy #[id number], 160, cm, 12/04/20 10:52:00 [...] 1 Refills, Maintenance, 11/09/20 23:47:00EDT, Tablet, [facility]/pharmacy #[id number], Partial fill upon patient [...] Refills, Maintenance, 11/05/20 11:43:00 EDT, Tablet, [facility]/pharmacy #[id number], Partial fill upon patient request if the prescription is for a schedule II opioid drug., 160, cm, 10/30/20 8:2... Start Date: 11/05/20 Status: Ordered meloxicam 15 mg oral tablet 1/2 TO 1 TABLET, By Mouth, Daily, PRN NEEDED FOR MODERATE PAIN, # 30 tablet, 1 Refills, [facility]93, 160, cm, 12/04/20 10:52:00 EDT, Height, 104.6, kg, 12/04/20 10:52:00 EDT, Dry Weight Start Date: 01/22/21 Status: Ordered omeprazole 20 mg oral enteric coated capsule 1 capsule, By Mouth, Daily, # 90 capsule, 0 Refills, Maintenance, 01/14/21 13:42:00 EDT, [facility]/pharmacy #[id number], 160, cm, 12/04/20 10:52:00 EDT, Height, 104.6, kg, 12/04/20 10:52:00 EDT, Dry Weight Start Date: 01/14/21 Status: Ordered ondansetron 4 mg oral tablet See Instructions, TAKE 1 TABLET BY MOUTH EVERY 8 HOURS NEEDED FOR NAUSEA AND VOMITING, # 15 tablet, 0 Refills, [facility] 0[facility]27, 160, cm, 12/04/20 10:52:00 EDT, Height, 104.6, [...]
--- OUTSIDE RECORDS SUMMARY | 2022-12-30 08:25 | XMS_ITS | Continuity of Care Document ---
Author Name Unknown Organization [facility] Address [address] [place] [address]- Care Team Providers Care Academic Tutor Name Role Phone Kaiden Chirinos MD Primary Care Physician [phone] [place] [facility] [place] 12/07/21 - 01/06/22 [facility] [address] [place], [place] [address] Allergies, Adverse Reactions, Alerts Substance [...] 8.5 Gm,0 Refills, Maintenance, 12/22/21 10:40:00 EDT, [facility] #[id number], 2 puffs Inhalation Every 4 hours,PRN: NEEDED FOR WHEEZING/cough/shortness... Start Date: 12/22/21 Status: Ordered albuterol 0.083% inhalation solution 3 mL = 2.5 mg, Inhalation, Every 4 hours, PRN for wheezing/cough/shortness of breath, # 25 each, 0 Refills, Maintenance, 10/14/21 22:10:00 EDT, Solution, [facility] #[id number], Partial fill upon patient request if the [...] tablet, 0 Refills, Maintenance, 12/27/21 13:43:00 EDT, [facility] #[id number], 153, cm, 10/08/21 13:23:00 EDT, Height, 113.9, kg, 10/08/21 13:23:00EDT, Dry Weight Start Date: 12/27/21 Status: Ordered clonazePAM 0.5 mg oral tablet 1 tablet = 0.5 mg, By Mouth, 4 times a day, PRN Anxiety, Patient on controlled substance contract. Please do NOT fill until 09/23/2020, # 112 tablet, 0 Refills, Maintenance, 11/18/20 21:02:00 EDT, Tablet, [facility]/pharmacy #0969, Partial fill upon patient... Start Date: 11/18/20 Status: Ordered diclofenac 1% topical gel = 1 Gm, Topically, 4 times a day, FOR PAIN., # 100 Gm, 1 Refills, [facility] 6[facility], 30, APPLY 1 GM TOPICALLY 4 TIMES A DAY FOR PAIN, 153, cm, 06/07/21 11:07:00 EST, Height, 105, kg, 05/31/21 15:15:00 EST, Dry Weight Start Date: 08/05/21 Status: Ordered Dilaudid 2 mg oral tablet 1 tablet = 2 mg, By Mouth, 2 times a day, PRN Pain , Severe, checked masspat, # 28 tablet, 0 Refills, Maintenance, 01/05/22 10:35:00 EDT, Tablet, [facility] #00404, Partial fill upon patient request if the prescription is for a schedule II o... Start Date: 01/05/22 Status: Ordered Estrace Vaginal Cream 0.1 mg/g = 2 Gm, Vaginally, Daily at bedtime, 2g PV daily at bedtime x 2 weeks, then 1g PV 1-3x per week, # 42.5 Gm, 5 Refills, Maintenance, 11/09/21 11:17:00 EDT, [facility] #[id number], Partial fill upon patient request if the prescription is for a sche... Start Date: 11/09/21 Status: Ordered estradiol 0.0375 mg/24 hours twice weekly transdermal film, extended release See Instructions, 1 patch Topically, change patch twice a week, # 1 pack/packet, 1 Refills, Maintenance, 12/07/21 10:42:00 EDT, [facility] #[id number], Partial fill upon patient request if the prescription is for a schedule II opioid drug., 153,... Start Date: 12/07/21 Status: Ordered gabapentin 800 mg oral tablet See Instructions, TAKE 1 TABLET BY MOUTH FOUR TIMES DAILY, # 360 tablet, 0 Refills, [facility] #[id number], 153, cm, 10/08/21 13:23:00 EDT, Height, 113.9, [...] capsule, 1 Refills, Maintenance, 12/08/21 10:10:00 EDT, [facility] #[id number], 153, cm, 10/08/21 13:23:00 EDT, Height, 113.9,kg, [...] tablet, 1 Refills, Maintenance, 07/30/21 12:25:00 EDT, [facility], [facility] #[id number], Partial fill upon patient request if the prescription is for a schedule II opioid drug... Start Date: 07/30/21 Status: Ordered levothyroxine 0.1 mg oral tablet 1 tablet = 100 mcg, By Mouth, Daily, dose increase, # 90 tablet, 0 Refills, Maintenance, 11/01/21 16:08:00 EDT, [facility] #[id number], Please discontinue 88ug, 153, cm, 10/08/21 13:23:00 [...] tablet, 1 Refills, Maintenance, 11/30/21 15:44:00 EDT, [facility] #[id number], [place]... Start Date: 11/30/21 Status: Ordered lidocaine 3% topical gel 1 application, Topically, 2 times a day, PRN as needed for pain, to replace 2% topical, # 28.5 Gm, 2 Refills, Acute 03/29/22 14:17:00 EST, 12/28/21 14:17:00 EDT, Gel, [facility] #[id number], Partial fill upon patient request if the prescription i... Start Date: 12/28/21 Stop Date: 03/29/22 Status: Ordered lidocaine 4% topical cream 1 application, Topically, 2 times a day, PRN Pain , Mild, # 30 Gm, 1 Refills, Acute 01/27/22 17:31:00 EDT, 12/28/21 17:31:00 EDT, Cream, [facility] #[id number], Partial fill upon patient requestif the prescription is for a schedule II opioid cedrick... Start Date: 12/28/21 Stop Date: 01/27/22 Status: Ordered meloxicam 15 mg oral tablet 1/2 TO 1 TABLET, By Mouth, Daily, PRN NEEDED FOR MODERATE PAIN, # 30 tablet, 1 Refills, :04:00 EDT, [facility] #[id number], 153, cm, 10/08/21 13:23:00 EDT, Height, 113.9, [...] 90 capsule, 0 Refills, 09/27/21 14:31:00 EDT, [facility] #[id number], 153, cm, 08/10/21 11:19:00 EDT, Height, 105, kg, 05/31/21 15:15:00 EST, Dry Weight Start Date: 09/27/21 Status: Ordered ondansetron 4 mg oral tablet 1 tablet = 4 mg, By Mouth, Every 8 hours, PRN Nausea & Vomiting, # 30 tablet, 1 Refills, Maintenance, 11/10/21 14:47:00 EDT, [facility] #[id number], 153, cm, 10/08/21 13:23:00 EDT, Height, 113.9, kg, 10/08/21 13:23:00 EDT, Dry Weight Start Date: 11/10/21 Status: Ordered oxybutynin 5 mg oral tablet 1 tablet, By Mouth, 3 times a day, # 270 tablet, 1 Refills, 01/05/22 9:12:00 EDT, [facility] #[id number], 153, cm, 01/04/22 13:15:00 EDT, Height, 113.9, [...] 01/11/22 13:32:00 EDT, 01/04/22 13:32:00 EDT, Tablet, [facility] #[id number], Partial fill upon patient request if the [...] Personnel Name: Candis CARDENAS, Kaiden Villalta Address: [address] [place] [address] Adult & Pediatric Medicine [place], [place] [address]
--- OUTSIDE RECORDS SUMMARY | 2022-12-30 08:25 | XMS_ITS | Continuity of Care Document ---
Author Name Unknown Organization [facility] Address [address] [place] [address]- Care Team Providers Care License Distributor Name Role Phone Kaiden Chirinos MD Primary Care Physician Encounter [facility] [place] Date(s): 03/06/19 - 06/22/19 [facility] [address] [place] [address] [facility] Attending Physician: Maritza Child MD Admitting Physician: Maritza Child MD Referring Physician: Kaiden Chirinos MD Allergies, Adverse Reactions, Alerts Substance Reaction Severity Status morphine Active Adhesive Bandage Active Percocet 7.5/325 Active Medications baclofen 10 mg oral tablet 10 mg, 1, tablet, By Mouth, 3 times a day, PRN, # 30 tablet, Refills 0, Tot. Refills 0, Maintenance, Spasm, 01/31/19 21:47:23 EDT, Route to Pharmacy Electronically, [id number], [facility]/pharmacy #[id number] Start Date: 01/31/19 [...]
--- OUTSIDE RECORDS SUMMARY | 2022-12-30 08:25 | XMS_ITS | Continuity of Care Document ---
Author Name Unknown Organization [facility] Address [address] [place] [address]- Care Team Providers Care Education Professional Name Role Phone Kaiden Chirinos MD Primary Care Physician [phone] [place] [facility] [place] - 09/23/20 [facility] [address] [place], [place] [address] Allergies, Adverse Reactions, Alerts Substance Reaction Severity Status morphine Active Adhesive Bandage Active Percocet 7.5/325 Active Medications amitriptyline 10 mg oral tablet 10 mg, 1, tablet, By Mouth, Daily at bedtime, # 90 tablet, Refills 1, Tot. Refills 1, Maintenance, 09/07/20 11:05:00 EDT, Route to Pharmacy Electronically, [facility]/pharmacy #[id number], Partial fill upon patient request if the prescription is for a schedule II... Start Date: 09/07/20 Status: Ordered amitriptyline 10 mg oral tablet 10 mg, 1, tablet, By Mouth, Daily at bedtime, # 90 tablet, Refills 1, Tot. Refills 1, Maintenance, 09/22/20 16:39:00 EDT, Route to Pharmacy Electronically, [facility]/pharmacy #[id number], Partial fill upon patient request if the prescription is for a schedule II... Start Date: 09/22/20 Status: Ordered baclofen 10 mg oral tablet 10 mg, 1, tablet, By Mouth, 3 times a day, PRN, # 30 tablet, Refills 0, Tot. Refills 0, Maintenance, Spasm, 01/31/19 21:47:23 EDT, Route to Pharmacy Electronically, [id number], [facility]/pharmacy #[id number] Start Date: 01/31/19 Stop Date: 02/14/19 Status: Ordered clonazePAM 0.5 mg oral tablet 1 tablet = 0.5 mg, By Mouth, 4 times a day, PRN Anxiety, Patient on controlled substance contract. Please do NOT fill until 09/23/2020, # 112 tablet, 1 Refills, Maintenance, 09/22/20 16:54:00 EDT, Tablet, [facility]/pharmacy #[id number], Partial fill [...] EST, ECCapsule Start Date: 05/27/19 Status: Ordered ProAir HFA 90 mcg/inh inhalation aerosol 2 puffs, Inhalation, Every 4 hours, PRN as needed for wheezing, # 8.5 Gm, 0 Refills, Maintenance, 09/01/20 20:10:00 EDT, Aerosol, [facility]/pharmacy #[id number], Partial fill upon patient request [...] with sertraline 100mg tab in morning for [id number] per day, # 90 tablet, 1 Refills, Maintenance, 09/07/20 11:02:00 EDT, Tablet, [facility]/pharmacy #[id number], Partial fill upon patient request [...]
--- OUTSIDE RECORDS SUMMARY | 2022-12-30 08:25 | XMS_ITS | Continuity of Care Document ---
Author Name Unknown Organization [facility] Address [address] [place] [address]- Care Team Providers Care Core Stripper Name Role Phone Candis CARDENAS, Kaiden Villalta Primary Care Physician [phone] [id number] Date(s): 09/24/21 - 10/24/21 [facility] [address] [place], [place] [address] Allergies, Adverse Reactions, [...] 8.5 Gm,0 Refills, Maintenance, 09/28/21 16:57:00 T, [facility] #[id number], 2 puffs Inhalation Every 4 hours,PRN: NEEDED FOR WHEEZING/cough/shortness... Start Date: 09/28/21 Status: Ordered albuterol 0.083% inhalation solution 3 mL = 2.5 mg, Inhalation, Every 4 hours, PRN for wheezing/cough/shortness of breath, # 25 each, 0 Refills, Maintenance, 10/14/21 22:10:00 EDT, Solution, [facility] #[id number], Partial fill upon patient request if the prescription is for a sched... Start Date: 10/14/21 Status: Ordered benzonatate 100 mg oral capsule 2 capsule, By Mouth, 3 times a day, PRN NEEDED FOR COUGH, # 30 capsule, 1 Refills, Physician Stop 03/19/22 17:38:00 EST, 02/19/22 16:55:00 EDT, [facility]/pharmacy #[id number], 160, cm, 12/04/20 10:52:00 EDT, Height, 104.6, kg, 12/04/20 10:52:00 EDT, Dry Weight Start Date: 02/19/22 Stop Date: 03/19/22 Status: Ordered benzonatate 100 mg oral capsule 2 capsule, By Mouth, 3 times a day, PRN NEEDED FOR COUGH, # 30 capsule, 1 Refills, Maintenance, 09/29/21 15:56:00 EDT, [facility] #[id number], 153, cm, 08/10/21 11:19:00 EDT, Height, 105, [...] 0 Refills, Maintenance, 11/18/20 21:02:00 EDT, Tablet, [facility]/pharmacy #[id number], Partial fill upon patient... Start Date: 11/18/20 Status: Ordered diclofenac 1% topical gel = 1 Gm, Topically, 4 times a day, FOR PAIN., # 100 Gm, 1 Refills, [facility], 30, APPLY 1 GM TOPICALLY 4 TIMES A DAY FOR PAIN, 153, cm, 06/07/21 11:07:00 EST, Height, 105, kg, 05/31/21 15:15:00 EST, Dry Weight Start Date: 08/05/21 Status: Ordered Dilaudid 2 mg oral tablet 1 tablet = 2 mg, By Mouth, 2 times a day, PRN Pain , Severe, checked masspat, # 28 tablet, 0 Refills, Maintenance, 10/08/21 13:52:00 EDT, Tablet, [facility] #09724, Partial fill upon patient request if the prescription is for a schedule II o... Start Date: 10/08/21 Status: Ordered Famotidine 0 Refills, Maintenance, 04/07/19 16:11:00 EST Start Date: 04/07/19 Status: Ordered fluconazole 150 mg oral tablet 1 tablet = 150 mg, By Mouth, Once, # 1 tablet, 0 Refills, Soft Stop, 09/21/21 11:15:00 EDT, Tablet,[facility] #[id number], Partial fill upon patient request if the prescription is for a schedule II opioid drug., 153, cm, 08/10/21 11:19:00 EDT, H... Start Date: 09/21/21 Status: Ordered gabapentin 800 mg oral tablet See Instructions, TAKE 1 TABLET BY MOUTH FOUR TIMES DAILY, # 360 tablet, 0 Refills, [facility] #[id number], 153, cm, 10/08/21 13:23:00 EDT, Height, 113.9, [...] capsule, 1 Refills, Maintenance, 09/28/21 16:58:00 EDT, [facility] #77004, 153, cm, 08/10/21 11:19:00 EDT, Height, 105, [...] tablet, 1 Refills, Maintenance, 07/30/21 12:25:00 EDT, [facility] #72253, Partial fill upon patient request if the prescription is for a schedule II opioid drug... Start Date: 07/30/21 Status: Ordered lidocaine 2% topical gel with applicator 5 mL = 0.1 Gm, Topically, 2 times a day, PRN Pain , Moderate, # 60 mL, 2 Refills, Soft Stop, 09/24/21 16:43:00 EDT, Gel, [facility] #[id number], Partial fill upon patient request if the [...] 90 capsule, 0 Refills, 09/27/21 14:31:00 EDT, [facility] #[id number], 153, cm, 08/10/21 11:19:00 EDT, Height, 105, kg, 05/31/21 15:15:00 EST, Dry Weight Start Date: 09/27/21 Status: Ordered ondansetron 4 mg oral tablet 1 tablet = 4 mg, By Mouth, Every 8 hours, PRN Nausea & Vomiting, # 30 tablet, 1 Refills, Maintenance, 09/28/21 16:56:00 EDT, [facility] #[id number], 153, cm, 08/10/21 11:19:00 EDT, Height, 105, kg, 05/31/21 15:15:00 EST, Dry Weight Start Date: 09/28/21 Status: Ordered oxybutynin 5 mg oral tablet 1 tablet, By Mouth, 3 times a day, # 270 tablet, 1 Refills, [facility], 153, cm, 08/10/21 11:19:00 EDT, Height, 105, [...] 1 Refills, Maintenance, 07/30/21 12:22:00 EDT, Tablet, [facility] #[id number], Partial fill upon patient request if the [...]
--- OUTSIDE RECORDS SUMMARY | 2022-12-30 08:25 | XMS_ITS | Continuity of Care Document ---
Author Name Unknown Organization [facility] Address [address] [place] [address]- Care Team Providers Care Graduating Machine Operator Name Role Phone Kaiden Chirinos MD Primary Care Physician [phone] Encounter [facility] [place] Date(s): 10/13/21 - 11/12/21 [facility] [address] [place], [place] [address] Allergies, Adverse Reactions, Alerts [...] 8.5 Gm,0 Refills, Maintenance, 09/28/21 16:57:00 EDT, [facility] #[id number], 2 puffs Inhalation Every 4 hours,PRN: NEEDED FOR WHEEZING/cough/shortness... Start Date: 09/28/21 Status: Ordered albuterol 0.083% inhalation solution 3 mL = 2.5 mg, Inhalation, Every 4 hours, PRN for wheezing/cough/shortness of breath, # 25 each, 0 Refills, Maintenance, 10/14/21 22:10:00 EDT, Solution, [facility] #[id number], Partial fill upon patient request if the prescription is for a sched... Start Date: 10/14/21 Status: Ordered benzonatate 100 mg oral capsule 2 capsule, By Mouth, 3 times a day, PRN NEEDED FOR COUGH, # 30 capsule, 1 Refills, Physician Stop 11/10/22 14:46:00 EDT, 03/19/22 17:38:00 EST, [facility] #[id number], 153, cm, 10/08/21 13:23:00 EDT, Height, 113.9, kg, 10/08/21 13:23:00 EDT, D... Start Date: 03/19/22 Stop Date: 11/10/22 Status: Ordered budesonide 1 mg/2 mL inhalation suspension 2 mL = 1 mg, Neb, 2 times a day, rinse mouth out after use, # 120 mL, 1 Refills, Maintenance, 10/25/21 18:30:00 EDT, Suspension, [facility] #[id number], Partial fill upon patient request if the [...] FOR PAIN., # 100 Gm, 1 Refills, [facility] [id number], 30, APPLY 1 GM TOPICALLY 4 TIMES A DAY FOR PAIN, 153, cm, 02/21/22 11:07:00 EST, Height, 105, kg, 05/31/21 15:15:00 EST, Dry Weight Start Date: 08/05/21 Status: Ordered Dilaudid 2 mg oral tablet 1 tablet = 2 mg, By Mouth, 2 times a day, PRN Pain , Severe, checked masspat, # 28 tablet, 0 Refills, Maintenance, 11/10/21 14:47:00 EDT, Tablet, [facility] #[id number], Partial fill upon patient request if the prescription is for a schedule II o... Start Date: 11/10/21 Status: Ordered Estrace Vaginal Cream 0.1 mg/g = 2 Gm, Vaginally, Daily at bedtime, 2g PV daily at bedtime x 2 weeks, then 1g PV 1-3x per week, # 42.5 Gm, 5 Refills, Maintenance, 11/09/21 11:17:00 EDT, [facility] #[id number], Partial fill upon patient request if the prescription is for a sche... Start Date: 11/09/21 Status: Ordered gabapentin 800 mg oral tablet See Instructions, TAKE 1 TABLET BY MOUTH FOUR TIMES DAILY, # 360 tablet, 0 Refills, [facility] #[id number], 153, cm, 10/08/21 13:23:00 EDT, Height, 113.9, [...] capsule, 1 Refills, Maintenance, 09/28/21 16:58:00 EDT, [facility] #[id number], 153, cm, 08/10/21 11:19:00 EDT, Height, 105, [...] 1 Refills, Maintenance, 07/30/21 12:25:00 EDT, Tablet, [facility] #[id number], Partial fill upon patient request if the prescription is for a schedule II opioid drug... Start Date: 07/30/21 Status: Ordered levothyroxine 0.1 mg oral tablet 1 tablet = 100 mcg, By Mouth, Daily, dose increase, # 90 tablet, 0 Refills, Maintenance, 11/01/21 16:08:00 EDT, [facility] #[id number], Please discontinue 88ug, 153, cm, 10/08/21 13:23:00 EDT, Height, 113.9, kg, 10/08/21 13:23:00 EDT, Dry Weight Start Date: 11/01/21 Status: Ordered lidocaine 2% topical gel with applicator 5 mL = 0.1 Gm, Topically, 2 times a day, PRN Pain , Moderate, # 60 mL, 2 Refills, Soft Stop, 09/24/21 16:43:00 EDT, Gel, [facility] #[id number], Partial fill upon patient request if the [...] 90 capsule, 0 Refills, 09/27/21 14:31:00 EDT, [facility] #[id number], 153, cm, 08/10/21 11:19:00 EDT, Height, 105, kg, 05/31/21 15:15:00 EST, Dry Weight Start Date: 09/27/21 Status: Ordered ondansetron 4 mg oral tablet 1 tablet = 4 mg, By Mouth, Every 8 hours, PRN Nausea & Vomiting, # 30 tablet, 1 Refills, Maintenance, 11/10/21 14:47:00 EDT, [facility] #[id number], 153, cm, 10/08/21 13:23:00 EDT, Height, 113.9, kg, 10/08/21 13:23:00 EDT, Dry Weight Start Date: 11/10/21 Status: Ordered oxybutynin 5 mg oral tablet 1 tablet, By Mouth, 3 times a day, # 270 tablet, 1 Refills, [facility] [id number], 153, cm, 08/10/21 11:19:00 EDT, Height, 105, [...] 1 Refills, Maintenance, 07/30/21 12:22:00 EDT, Tablet, [facility] #[id number], Partial fill upon patient request if the [...]
--- OUTSIDE RECORDS SUMMARY | 2022-12-30 08:25 | XMS_ITS | Continuity of Care Document ---
Author Name Unknown Organization 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 [address] [place], [place] [address] Allergies, Adverse Reactions, Alerts Substance [...] 16:08:00 EDT, Route to Pharmacy Electronically, [facility]/pharmacy #[id number], Partial fill upon patient request if the prescription is for a schedule II... Start Date: 12/24/20 Status: Ordered baclofen 10 mg oral tablet 10 mg, 1, tablet, By Mouth, 3 times a day, PRN, # 30 tablet, Refills 0, Tot. Refills 0, Maintenance, Spasm, 01/31/19 21:47:23 EDT, Route to Pharmacy Electronically, [id number], [facility]/pharmacy #[id number] Start Date: 01/31/19 Stop Date: 02/14/19 Status: Ordered benzonatate 100 mg oral capsule 2 capsule, By Mouth, 3 times a day, PRN NEEDED FOR COUGH, # 30 capsule, 0 Refills, Physician Stop 03/06/21 13:27:00 EST, 02/03/21 13:26:00 EDT, [facility]/pharmacy #[id number], 160, [...] 1 Refills, Maintenance, 11/09/20 23:47:00EDT, Tablet, [facility]/pharmacy #[id number], Partial [...] Refills, Maintenance, 11/05/20 11:43:00 EDT, Tablet, [facility]/pharmacy #[id number], Partial fill upon patient request if the prescription is for a schedule II opioid drug., 160, cm, 10/30/20 8:2... Start Date: 11/05/20 Status: Ordered meloxicam 15 mg oral tablet 1/2 TO 1 TABLET, By Mouth, Daily, PRN NEEDED FOR MODERATE PAIN, # 30 tablet, 1 Refills, [facility]ORE [id number], 160, cm, 12/04/20 10:52:00 EDT, Height, 104.6, kg, 12/04/20 10:52:00 EDT, Dry Weight Start Date: 01/22/21 Status: Ordered omeprazole 20 mg oral enteric coated capsule 1 capsule, By Mouth, Daily, # 90 capsule, 0 Refills, Maintenance, 01/14/21 13:42:00 EDT, [facility]/pharmacy #[id number], 160, [...]
--- OUTSIDE RECORDS SUMMARY | 2022-12-30 08:25 | XMS_ITS | Continuity of Care Document ---
Author Name Unknown Organization [facility] Address [address] [place] [address]- Care Team Providers Care High Lead Yarder Name Role Phone Kaiden Chirinos MD Primary Care Physician Encounter [facility] [place] Date(s): 05/27/19 - 06/06/19 [facility] [address] [place] [address]- [facility] Attending Physician: Admtr, Ash8 Admitting Physician: Admtr, Ar8 Referring Physician: Admtr, Ar8 Allergies, Adverse Reactions, Alerts Substance Reaction Severity Status morphine Active Adhesive Bandage Active Percocet 7.5/325 Active Medications baclofen 10 mg oral tablet 10 mg, 1, tablet, By Mouth, 3 times a day, PRN, # 30 tablet, Refills 0, Tot. Refills 0, Maintenance, Spasm, 01/31/19 21:47:23 EDT, Route to Pharmacy Electronically, [id number], [facility]/pharmacy #[id number] Start Date: 01/31/19 Stop [...]
--- OUTSIDE RECORDS SUMMARY | 2022-12-30 08:25 | XMS_ITS | Continuity of Care Document ---
Author Name Unknown Organization 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 [address] [place], [place] [address] Allergies, Adverse Reactions, Alerts [...] 09/22/20 16:39:00 EDT, Route to Pharmacy Electronically, [facility]/pharmacy #[id number], Partial fill upon patient request if the prescription is for a schedule II... Start Date: 09/22/20 Status: Ordered baclofen 10 mg oral tablet 10 mg, 1, tablet, By Mouth, 3 times a day, PRN, # 30 tablet, Refills 0, Tot. Refills 0, Maintenance, Spasm, 01/31/19 21:47:23 EDT, Route to Pharmacy Electronically, [id number], [facility]/pharmacy #[id number] Start Date: 01/31/19 Stop Date: 02/14/19 Status: Ordered clonazePAM 0.5 mg oral tablet 1 tablet = 0.5 mg, By Mouth, 4 times a day, PRN Anxiety, Patient on controlled substance contract. Please do NOT fill until 09/23/2020, # 112 tablet, 0 Refills, Maintenance, 11/18/20 21:02:00 EDT, Tablet, [facility]/pharmacy #[id number], Partial fill upon patient... Start Date: 11/18/20 Status: Ordered Famotidine 0 Refills, Maintenance, 04/07/19 16:11:00 EST Start Date: 04/07/19 Status: Ordered gabapentin 800 mg oral tablet 1 tablet = 800 mg, By Mouth, 4 times a day, # 360 tablet, 1 Refills, Maintenance, 11/09/20 23:47:00EDT, Tablet, [facility]/pharmacy #[id number], Partial fill upon patient request if [...] 1 Refills, Maintenance, 11/05/20 11:43:00 EDT, Tablet, [facility]/pharmacy #[id number], Partial fill upon patient request if [...] 1 Refills, Maintenance, 11/03/20 13:32:00 EDT, Tablet, [facility]/pharmacy #[id number], Partial fill upon patient request if [...] 1 Refills, Maintenance, 11/03/20 13:28:00 EDT, Tablet, [facility]/pharmacy #[id number], Partial fill upon patient request if the [...]
--- OUTSIDE RECORDS SUMMARY | 2022-12-30 08:25 | XMS_ITS | Continuity of Care Document ---
Author Name Unknown Organization [facility] Address [address] [place] [address]- Care Team Providers Care Hot Stamp Operator Name Role Phone Kaiden Chirinos MD Primary Care Physician [place] [facility] [place] Date(s): 02/07/22 - 03/09/22 [facility] [address] [place], [place] [address] Allergies, Adverse Reactions, Alerts Substance [...] # 8.5 Gm,0 Refills, Maintenance, 12/22/21 10:40:00 [facility] #[id number], 2 puffs Inhalation Every 4 hours,PRN: NEEDED FOR WHEEZING/cough/shortness... Start Date: 12/22/21 Status: Ordered albuterol 0.083% inhalation solution 3 mL = 2.5 mg, Inhalation, Every 4 hours, PRN for wheezing/cough/shortness of breath, # 25 each, 0 Refills, Maintenance, 10/14/21 22:10:00 EDT, Solution, [facility] #[id number], Partial fill upon patient request if the prescription is for a sched... Start Date: 10/14/21 Status: Ordered [place] Saline Mist 0.65% nasal spray 2 sprays, Nares, Both, 4 times a day, # 1 each, 0 Refills, Maintenance, 02/04/22 13:32:00 EDT, [facility] #[id number], Partial fill upon patient request if the [...] tablet, 0 Refills, Maintenance, 12/27/21 13:43:00 EDT, [facility] #[id number], 153, cm, 10/08/21 13:23:00 EDT, Height, 113.9, [...] FOR PAIN., # 100 Gm, 1 Refills, [facility] 97057, 30, APPLY 1 GM TOPICALLY 4 TIMES A DAY FOR PAIN, 153, cm, 06/07/21 11:07:00 EST, Height, 105, kg, 05/31/21 15:15:00 EST, Dry Weight Start Date: 08/05/21 Status: Ordered Dilaudid 2 mg oral tablet 1 tablet = 2 mg, By Mouth, 2 times a day, PRN Pain , Severe, checked masspat, # 28 tablet, 0 Refills, Maintenance, 03/04/22 14:11:00 EST, Tablet, [facility] #[id number], Partial fill upon patient request if the prescription is for a schedule II o... Start Date: 03/04/22 Status: Ordered Estrace Vaginal Cream 0.1 mg/g = 2 Gm, Vaginally, Daily at bedtime, 2g PV daily at bedtime x 2 weeks, then 1g PV 1-3x per week, # 42.5 Gm, 5 Refills, Maintenance, 11/09/21 11:17:00 EDT, [facility] #[id number], Partial fill upon patient request if the prescription is for a sche... Start Date: 11/09/21 Status: Ordered Estradiol Patch 0.0375 mg/24 hours twice weekly transdermal film, extended release See Instructions, APPLY 1 PATCH TOPICALLY TWICE WEEKLY DIRECTED, # 8 patch, 0 Refills, Maintenance, 02/26/22 10:23:00 EST, [facility] #[id number], 28, APPLY 1 PATCH TOPICALLY TWICE WEEKLY DIRECTED, 153, cm, 01/04/22 13:15:00 EDT, Height, 11... Start Date: 02/26/22 Status: Ordered fluconazole 150 mg oral tablet 1 tablet = 150 mg, By Mouth, Once, # 1 tablet, 0 Refills, Soft Stop, 02/14/22 14:41:00 EDT, Tablet,[facility] #[id number], Partial fill upon patient request if the prescription is for a schedule II opioid drug., 153, cm, 01/04/22 13:15:00 EDT, H... Start Date: 02/14/22 Status: Ordered gabapentin 800 mg oral tablet See Instructions, TAKE 1 TABLET BY MOUTH FOUR TIMES DAILY, # 360 tablet, 0 Refills, [facility] #[id number], 153, cm, 10/08/21 13:23:00 EDT, Height, 113.9, [...] capsule, 1 Refills, Maintenance, 12/08/21 10:10:00 EDT, [facility] #[id number], 153, cm, 10/08/21 13:23:00 EDT, Height, 113.9,kg, [...] tablet, 0 Refills, Maintenance, 01/20/22 17:46:00 EDT, [facility] #[id number], 153, cm, 01/04/22 13:15:00 ED... Start Date: 01/20/22 Status: Ordered lidocaine 3% topical gel 1 application, Topically, 2 times a day, PRN as needed for pain, to replace 2% topical, # 28.5 Gm, 2 Refills, Acute 03/29/22 14:17:00 EST, 12/28/21 14:17:00 EDT, Gel, [facility] #[id number], Partial fill upon patient request if the prescription i... Start Date: 12/28/21 Stop Date: 03/29/22 Status: Ordered meloxicam 15 mg oral tablet 1/2 TO 1 TABLET, By Mouth, Daily, PRN NEEDED FOR MODERATE PAIN, # 30 tablet, 5 Refills, Maintenance, 01/10/22 20:40:00 EDT, [facility] #[id number], 153, cm, 01/04/22 13:15:00 EDT, Height, 113.9, [...] capsule, 0 Refills, Maintenance, 01/16/22 8:28:00 EDT, [facility] #[id number], 153, cm, 01/04/22 13:15:00 EDT, Height, 113.9, kg, 10/08/21 13:23:00 EDT, Dry Weight Start Date: 01/16/22 Status: Ordered ondansetron 4 mg oral tablet 1 tablet, By Mouth, Every 8 hours, PRN NEEDED FOR NAUSEA OR VOMITING, # 30 tablet, 0 Refills, Maintenance, 03/01/22 11:29:00 EST, [facility] #[id number], 153, cm, 01/04/22 13:15:00 EDT, Height, 113.9, kg, 10/08/21 13:23:00 EDT, Dry Weight Start Date: 03/01/22 Status: Ordered oxybutynin 5 mg oral tablet 1 tablet, By Mouth, 3 times a day, # 270 tablet, 1 Refills, 01/10/22 10:29:00 EDT, [facility] #[id number], 153, cm, 01/04/22 13:15:00 EDT, Height, 113.9, [...] 02/18/22 16:37:00 EDT, Route to Pharmacy Electronically, [facility] #[id number], Partial fill upon patient request if the [...] Team Personnel Name: Kaiden Chirinos MD Position: [facility] Primary Care Physician Member Role: PCP Address: Address: [address] [place] [address] Adult [place] [address]- Care Team Related Persons Name: RODOLFO SHEIKH Address: home [address] [place] [address] Name: CHIARA TEE Address: home [address] [place] [address] [place] [id number]
--- OUTSIDE RECORDS SUMMARY | 2022-12-30 08:25 | XMS_ITS | Continuity of Care Document ---
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 Start Date: 12/22/21 Status: Ordered albuterol 0.083% inhalation solution 3 mL = 2.5 mg, Inhalation, Every 4 hours, PRN for wheezing/cough/shortness of breath, # 25 each, 0 Refills, Maintenance, 03/15/23 13:08:00 EDT, Solution, [facility] #[id number], Partial fill upon patient request if the prescription is for a sched... Start Date: 06/29/22 Status: Ordered [place] Saline Mist 0.65% nasal spray 2 sprays, Nares, Both, 4 times a day, # 1 each, 0 Refills, Maintenance, 02/04/22 13:32:00 EDT, [facility] #[id number], Partial fill upon patient request if the [...] tablet, 0 Refills, Maintenance, 12/27/21 13:43:00 EDT, [facility] #[id number], 153, cm, 10/08/21 13:23:00 EDT, Height, 113.9, kg, 10/08/21 13:23:00EDT, Dry Weight Start Date: 12/27/21 Status: Ordered chlorhexidine 2% topical liquid See Instructions, 1 application to bilateral forearms twice weekly, # 120 mL, 3 Refills, Soft Stop,06/17/22 11:06:00 EST, Liquid, [facility] #[id number], Partial fill upon patient request if the prescription is for a schedule II opioid drug., 1... Start Date: 06/17/22 Status: Ordered chlorhexidine 4% topical soap See Instructions, apply topically twice weekly to skin on forearms, # 120 mL, 2 Refills, Soft Stop,06/17/22 16:03:00 EST, [facility] #[id number], Partial fill upon patient request if the [...] FOR PAIN., # 100 Gm, 1 Refills, [facility] 222[facility], 30, APPLY 1 GM TOPICALLY 4 TIMES A DAY FOR PAIN, 153, cm, 06/07/21 11:07:00 EST, Height, 105, kg, 05/31/21 15:15:00 EST, Dry Weight Start Date: 08/05/21 Status: Ordered Dilaudid 2 mg oral tablet 1 tablet = 2 mg, By Mouth, 2 times a day, PRN Pain , Severe, checked masspat, # 56 tablet, 0 Refills, Maintenance, 10/25/22 21:47:00 EDT, Tablet, [facility] #[id number], Partial fill upon patient request if the prescription is for a schedule II o... Start Date: 10/25/22 Status: Ordered Estrace Vaginal Cream 0.1 mg/g = 2 Gm, Vaginally, Daily at bedtime, 2g PV daily at bedtime x 2 weeks, then 1g PV 1-3x per week, # 42.5 Gm, 5 Refills, Maintenance, 11/09/21 11:17:00 EDT, [facility] #[id number], Partial fill upon patient request if the prescription is for a sche... Start Date: 11/09/21 Status: Ordered Estradiol Patch 0.0375 mg/24 hours twice weekly transdermal film, extended release See Instructions, APPLY 1 PATCH TOPICALLY TWICE WEEKLY DIRECTED, # 8 patch, 2 Refills, Maintenance, 09/22/22 21:55:00 EDT, [facility] #60712, 28, APPLY 1 PATCH TOPICALLY TWICE WEEKLY DIRECTED, 153, cm, 06/17/22 10:53:00 EST, Height, 10... Start Date: 09/22/22 Status: Ordered fluconazole 150 mg oral tablet 1 tablet = 150 mg, By Mouth, Once, PRN vaginal yeast infection, repeat dose in 72 hours if symptomsnot resolved, # 2 tablet, 0 Refills, Soft Stop, 11/08/22 15:31:00 EDT, Tablet, [facility]#57143, Partial fill upon patient request if the pr... Start Date: 11/08/22 Status: Ordered fluticasone 50 mcg/inh nasal spray See Instructions, SHAKE LIQUID AND USE 1 SPRAY IN EACH NOSTRIL TWICE DAILY, # 16 Gm, 1 Refills, Maintenance, 05/18/22 13:57:00 EST, [facility] #[id number], 30, SHAKE LIQUID AND USE 1 SPRAY IN EACH NOSTRIL TWICE DAILY, 153, cm, 04/25/22 16:23:00 E... Start Date: 05/18/22 Status: Ordered gabapentin 800 mg oral tablet 1 tablet, By Mouth, 4 times a day, # 360 tablet, 1 Refills, Maintenance, 10/25/22 21:47:00 EDT, [facility] #[id number], 153, cm, 06/17/22 10:53:00 EST, Height, 109, [...] capsule, 1 Refills, Maintenance, 11/15/22 11:13:00 EDT, [facility] #[id number], 154, cm, 10/29/22 14:42:00 EDT, Height, 109, [...] 1 Refills, Maintenance, 04/28/22 13:51:00 EST, Tablet, [facility] #[id number], Partial fill upon patient request if the prescription is for a schedule II opioid drug., 153, cm... Start Date: 04/28/22 Status: Ordered lidocaine 4% topical cream 1 application, Topically, 3 times a day, PRN Pain , Mild, # 30 Gm, 1 Refills, Maintenance, 06/24/2315:24:00 EST, Cream, [facility] #24651, Partial fill upon patient request if the prescription is for a schedule II opioid drug., 1 applicatio... Start Date: 06/23/22 Status: Ordered meloxicam 15 mg oral tablet 1/2 TO 1 TABLET, By Mouth, Daily, PRN NEEDED FOR MODERATE PAIN, # 30 tablet, 5 Refills, Maintenance, 01/10/22 20:40:00 EDT, [facility] #[id number], 153, cm, 01/04/22 13:15:00 EDT, Height, 113.9, [...] capsule, 1 Refills, Maintenance, 07/26/22 14:24:00 EDT, [facility] #[id number], 153, cm, 06/17/22 10:53:00 EST, Height, 109, kg, 06/17/22 10:53:00 EST, Dry Weight Start Date: 07/26/22 Status: Ordered ondansetron 4 mg oral tablet 1 tablet, By Mouth, Every 8 hours, PRN NEEDED FOR NAUSEA OR VOMITING, # 30 tablet, 1 Refills, Maintenance, 10/27/22 23:08:00 EDT, [facility] #[id number], 153, cm, 06/17/22 10:53:00 EST, Height, 109, kg, 06/17/22 10:53:00 EST, Dry Weight Start Date: 10/27/22 Status: Ordered oxybutynin 5 mg oral tablet 1 tablet, By Mouth, 3 times a day, # 270 tablet, 1 Refills, Maintenance, 10/04/22 20:44:00 EDT, [facility] #[id number], 153, cm, 06/17/22 10:53:00 EST, Height, 109, [...] 11/18/22 16:07:00 EDT, Route to Pharmacy Electronically, [facility] #[id number], Partial fill upon patient request if the prescrip... Start Date: 11/18/22 Status: Ordered traZODone 50 mg oral tablet 1-2 tablet, By Mouth, Daily, one hour prior to bedtime. dose increase, # 60 tablet, Refills 2, Tot.Refills 2, Maintenance, 07/01/22 14:21:00 EDT, Route to Pharmacy Electronically, [facility] #[id number], Partial fill upon patient request if the... Start Date: 07/01/22 Status: Ordered triamcinolone 0.1% topical cream 1 application, Topically, 3 times a day, PRN arm rash, # 30 Gm, 1 Refills, Acute 06/08/23 9:53:00 EST, 06/08/22 9:53:00 EST, Cream, [facility] #[id number], Partial fill upon patient request if the [...] Primary Care Member Role: PCP Address: Address: [address] [place] [address] Adult & Pediatric Medicine [place], [place] [address] Care Team Related Persons Name: AGUILAR RODOLFO Address: home [address] [facility] [address] [place] [address] Name: CHIARA TEE Address: home [address] [place] [address] [address] [place] [address]
--- OUTSIDE RECORDS SUMMARY | 2022-12-30 08:25 | XMS_ITS | Continuity of Care Document ---
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 Role Phone Candis CARDENAS, Kaiden Villalta Primary Care Physician [phone] [place] [facility] [place]s): 06/04/21 - 07/04/21 [facility] [address] [place], [place] [address] Allergies, Adverse Reactions, [...] # 8.5 each, 0 Refills, [id number], 20, INHALE 2 PUFFS BY MOUTH EVERY 4 HOURS NEEDED FOR WHEEZING, 160, cm, 03/30/21 10:47:00 EST, Height, 104.6, kg, 12/04/20 10:52:00 EDT, Dry Weight Start Date: 04/28/21 Status: Ordered amitriptyline 10 mg oral tablet 10 mg, 1, tablet, By Mouth, Daily at bedtime, # 90 tablet, Refills 1, Tot. Refills 1, Maintenance, 12/24/20 16:08:00 EDT, Route to Pharmacy Electronically, [facility]/pharmacy #[id number], Partial fill upon patient request if the prescription is for a schedule II... Start Date: 12/24/20 Status: Ordered baclofen 10 mg oral tablet 10 mg, 1, tablet, By Mouth, 3 times a day, PRN, # 30 tablet, Refills 0, Tot. Refills 0, Maintenance, Spasm, 01/31/19 21:47:23 EDT, Route to Pharmacy Electronically, [id number], [facility]/pharmacy #[id number] Start Date: 01/31/19 Stop Date: 02/14/19 Status: Ordered benzonatate 100 mg oral capsule 2 capsule, By Mouth, 3 times a day, PRN NEEDED FOR COUGH, # 30 capsule, 1 Refills, Physician Stop 03/19/22 17:38:00 EST, 02/19/22 16:55:00 EDT, [facility]/pharmacy #[id number], 160, cm, 12/04/20 10:52:00 EDT, Height, 104.6, kg, 12/04/20 10:52:00 EDT, Dry Weight Start Date: 02/19/22 Stop Date: 03/19/22 Status: Ordered benzonatate 100 mg oral capsule 2 capsule, By Mouth, 3 times a day, PRN NEEDED FOR COUGH, # 30 capsule, 1 Refills, Physician Stop 02/19/22 16:55:00 EDT, 02/19/21 16:54:00 EDT, [facility]/pharmacy #[id number], 160, cm, 12/04/20 10:52:00 EDT, Height, [...] 06/30/22 10:07:00 EDT, 06/30/21 10:06:00 EDT, Tablet, [facility]/pharmacy #[id number], Partial fill upon patient request if the prescription is for a schedule II opioid dr... Start Date: 06/30/21 Stop Date: 06/30/22 Status: Ordered Famotidine 0 Refills, Maintenance, 04/07/19 16:11:00 EST Start Date: 04/07/19 Status: Ordered gabapentin 800 mg oral tablet 1 tablet, By Mouth, 4 times a day, # 360 tablet, 1 Refills, [id number], 160, cm, 03/30/21 10:47:00 EST, Height, 104.6, [...] 1 Refills, Maintenance, 05/14/21 15:23:00 EST, Tablet, [facility]/pharmacy #[id number], Partial fill upon patient request if the prescription is for a schedule II opioid drug., 160, c... Start Date: 05/14/21 Status: Ordered omeprazole 20 mg oral enteric coated capsule 1 capsule, By Mouth, Daily, # 90 capsule, 1 Refills, [facility], 160, cm, 03/30/21 10:47:00 EST, Height, 104.6, kg, 12/04/20 10:52:00 EDT, Dry Weight Start Date: 03/31/21 Status: Ordered ondansetron 4 mg oral tablet See Instructions, TAKE 1 TABLET BY MOUTH EVERY 8 HOURS NEEDED FOR NAUSEA AND VOMITING, # 15 tablet, 1 Refills, Physician Stop 07/12/21 15:23:00 EDT, 05/14/21 15:22:00 EST, [facility]/pharmacy #[id number], 160,cm, 03/30/21 10:47:00 EST, Height, 104.6, kg, 12/04... Start Date: 05/14/21 Stop Date: 07/12/21 Status: Ordered oxybutynin 5 mg oral tablet 1 tablet, By Mouth, 3 times a day, dose increase, # 270 tablet, 1 Refills, Maintenance, 03/19/21 17:40:00 EST, [facility]/pharmacy #[id number], 160, cm, 12/04/20 10:52:00 EDT, Height, [...]
--- OUTSIDE RECORDS SUMMARY | 2022-12-30 08:25 | XMS_ITS | Continuity of Care Document ---
Author Name Unknown Organization [facility] Address [address] [place], [place] [address]sarah espana, [address] [place] [address]- Care Team Providers Care Emery Grinder Name Role Phone Candis CAREDNAS, Kaiden Villalta Primary Care Physician [phone] [place] [facility] [place]/22 [facility] [address] [place] [address] Drive, [address] [place] [address]- Allergies, Adverse Reactions, Alerts Substance Reaction Severity [...] 8.5 Gm,0 Refills, Maintenance, 12/22/21 10:40:00 EDT, [facility] #[id number], 2 puffs Inhalation Every 4 hours,PRN: NEEDED FOR WHEEZING/cough/shortness... Start Date: 12/22/21 Status: Ordered albuterol 0.083% inhalation solution 3 mL = 2.5 mg, Inhalation, Every 4 hours, PRN for wheezing/cough/shortness of breath, # 25 each, 0 Refills, Maintenance, 10/14/21 22:10:00 EDT, Solution, [facility] #[id number], Partial fill upon patient request if the prescription is for a sched... Start Date: 10/14/21 Status: Ordered Everett Saline Mist 0.65% nasal spray 2 sprays, Nares, Both, 4 times a day, # 1 each, 0 Refills, Maintenance, 02/04/22 13:32:00 EDT, [facility] #[id number], Partial fill upon patient request if the [...] tablet, 0 Refills, Maintenance, 12/27/21 13:43:00 EDT, [facility] #[id number], 153, cm, 10/08/21 13:23:00 EDT, Height, 113.9, kg, 10/08/21 13:23:00EDT, Dry Weight Start Date: 12/27/21 Status: Ordered clonazePAM 0.5 mg oral tablet 1 tablet = 0.5 mg, By Mouth, 4 times a day, PRN Anxiety, Patient on controlled substance contract. Please do NOT fill until 09/23/2020, # 112 tablet, 0 Refills, Maintenance, 11/18/20 21:02:00 EDT, Tablet, [facility]/pharmacy #[id number], Partial fill upon patient... Start Date: 11/18/20 Status: Ordered diclofenac 1% topical gel = 1 Gm, Topically, 4 times a day, FOR PAIN., # 100 Gm, 1 Refills, [facility], 30, APPLY 1 GM TOPICALLY 4 TIMES A DAY FOR PAIN, 153, cm, 06/07/21 11:07:00 EST, Height, 105, kg, 05/31/21 15:15:00 EST, Dry Weight Start Date: 08/05/21 Status: Ordered Dilaudid 2 mg oral tablet 1 tablet = 2 mg, By Mouth, 2 times a day, PRN Pain , Severe, checked masspat, # 56 tablet, 0 Refills, Maintenance, 05/05/22 17:13:00 EST, Tablet, [facility] #[id number], Partial fill upon patient request if the prescription is for a schedule II o... Start Date: 05/05/22 Status: Ordered Estrace Vaginal Cream 0.1 mg/g = 2 Gm, Vaginally, Daily at bedtime, 2g PV daily at bedtime x 2 weeks, then 1g PV 1-3x per week, # 42.5 Gm, 5 Refills, Maintenance, 11/09/21 11:17:00 EDT, [facility] #[id number], Partial fill upon patient request if the prescription is for a sche... Start Date: 11/09/21 Status: Ordered Estradiol Patch 0.0375 mg/24 hours twice weekly transdermal film, extended release See Instructions, APPLY 1 PATCH TOPICALLY TWICE WEEKLY DIRECTED, # 8 patch, 6 Refills, Maintenance, 03/23/22 16:10:00 EST, [facility] #[id number], 28, APPLY 1 PATCH TOPICALLY TWICE WEEKLY DIRECTED, 153, cm, 01/04/22 13:15:00 EDT, Height, 11... Start Date: 03/23/22 Status: Ordered fluconazole 150 mg oral tablet 1 tablet = 150 mg, By Mouth, Once, PRN vaginal yeast infection, # 1 tablet, 0 Refills, Soft Stop, 03/15/22 10:42:00 EST, Tablet, [facility] #[id number], Partial fill upon patient request if the prescription is for a schedule II opioid drug., 153,... Start Date: 03/15/22 Status: Ordered fluticasone 50 mcg/inh nasal spray See Instructions, SHAKE LIQUID AND USE 1 SPRAY IN EACH NOSTRIL TWICE DAILY, # 16 Gm, 1 Refills, Maintenance, 05/18/22 13:57:00 EST, [facility] #[id number], 30, SHAKE LIQUID AND USE 1 SPRAY IN EACH NOSTRIL TWICE DAILY, 153, cm, 04/25/22 16:23:00 E... Start Date: 05/18/22 Status: Ordered gabapentin 800 mg oral tablet 1 tablet, By Mouth, 4 times a day, # 360 tablet, 1 Refills, Maintenance, 04/19/22 12:59:00 EST, [facility] #[id number], 153, cm, 01/04/22 13:15:00 EDT, Height, 113.9, [...] capsule, 1 Refills, Maintenance, 05/20/22 12:57:00 EST, [facility] #[id number], 153, cm, 04/25/22 16:23:00 EST, Height, 109, [...] 1 Refills, Maintenance, 04/28/22 13:51:00 EST, Tablet, [facility] #[id number], Partial fill upon patient request if the prescription is for a schedule II opioid drug., 153, cm... Start Date: 04/28/22 Status: Ordered lidocaine 4% topical cream 1 application, Topically, 3 times a day, PRN pain of forearms, # 30 Gm, 1 Refills, Acute 06/23/22 16:24:00 EST, 04/25/22 16:23:00 EST, Cream, [facility] #[id number], Partial fill upon patient request if the prescription is for a schedule II opioi... Start Date: 04/25/22 Stop Date: 06/23/22 Status: Ordered meloxicam 15 mg oral tablet 1/2 TO 1 TABLET, By Mouth, Daily, PRN NEEDED FOR MODERATE PAIN, # 30 tablet, 5 Refills, Maintenance, 01/10/22 20:40:00 EDT, [facility] #[id number], 153, cm, 01/04/22 13:15:00 EDT, Height, 113.9, [...] capsule, 1 Refills, Maintenance, 04/19/22 12:41:00 EST, [facility] #[id number], 153, cm, 01/04/22 13:15:00 EDT, Height, 113.9, kg, 10/08/21 13:23:00 EDT, Dry Weight Start Date: 04/19/22 Status: Ordered ondansetron 4 mg oral tablet 1 tablet, By Mouth, Every 8 hours, PRN NEEDED FOR NAUSEA OR VOMITING, # 30 tablet, 1 Refills, Maintenance, 04/14/22 21:15:00 EST, [facility] #[id number], 153, cm, 01/04/22 13:15:00 EDT, Height, 113.9, kg, 10/08/21 13:23:00 EDT, Dry Weight Start Date: 04/14/22 Status: Ordered oxybutynin 5 mg oral tablet 1 tablet, By Mouth, 3 times a day, # 270 tablet, 1 Refills, 01/10/22 10:29:00 EDT, [facility] #[id number], 153, cm, 01/04/22 13:15:00 EDT, Height, 113.9, [...] 04/14/22 21:16:00 EST, Route to Pharmacy Electronically, [facility] #[id number], Partial fill upon patient request if the... [...] Personnel Name: Candis CARDENAS, Kaiden Villalta Position: [facility] Primary Care Physician Member Role: PCP Address: Address: [address] [place] [address] Adult [place] [address]- Care Team Related Persons Name: RODOLFO SHEIKH Address: home [address] [facility] [address] [place] [address] Name: CHIARA TEE Address: home [address] [place] [address] [place] [address]
--- OUTSIDE RECORDS SUMMARY | 2022-12-30 08:25 | XMS_ITS | Continuity of Care Document ---
Author Name Unknown Organization [facility] Address [address] [place] [address]- Care Team Providers Care Right Of Way Clearer Name Role Phone Kaiden Chirinos MD Primary Care Physician Encounter [facility] [place] Date(s): 11/10/21 - 12/10/21 [facility] [address] [place], [place] [address] Allergies, Adverse Reactions, Alerts [...] 8.5 Gm,0 Refills, Maintenance, 12/08/21 20:52:00 EDT, [facility] #[id number], 2 puffs Inhalation Every 4 hours,PRN: NEEDED FOR WHEEZING/cough/shortness... Start Date: 12/08/21 Status: Ordered albuterol 0.083% inhalation solution 3 mL = 2.5 mg, Inhalation, Every 4 hours, PRN for wheezing/cough/shortness of breath, # 25 each, 0 Refills, Maintenance, 10/14/21 22:10:00 EDT, Solution, [facility] #[id number], Partial fill upon patient request if the prescription is for a sched... Start Date: 10/14/21 Status: Ordered benzonatate 100 mg oral capsule 2 capsule, By Mouth, 3 times a day, PRN NEEDED FOR COUGH, # 30 capsule, 1 Refills, Physician Stop 11/10/22 14:46:00 EDT, 03/19/22 17:38:00 EST, [facility] #[id number], 153, cm, 10/08/21 13:23:00 EDT, Height, 113.9, kg, 10/08/21 13:23:00 EDT, D... Start Date: 03/19/22 Stop Date: 11/10/22 Status: Ordered benzonatate 100 mg oral capsule 2 capsule, By Mouth, 3 times a day, PRN NEEDED FOR COUGH, # 30 capsule, 1 Refills, Physician Stop 12/10/22 15:43:00 EDT, 11/10/22 14:46:00 EDT, [facility] #[id number], 153, cm, 10/08/21 13:23:00 EDT, Height, 113.9, [...] EDT, Tablet, [facility]/pharmacy #[id number], Partial fill upon patient... Start Date: 11/18/20 Status: Ordered diclofenac 1% topical gel = 1 Gm, Topically, 4 times a day, FOR PAIN., # 100 Gm, 1 Refills, [facility], 30, APPLY 1 GM TOPICALLY 4 TIMES A DAY FOR PAIN, 153, cm, 06/07/21 11:07:00 EST, Height, 105, kg, 05/31/21 15:15:00 EST, Dry Weight Start Date: 08/05/21 Status: Ordered Dilaudid 2 mg oral tablet 1 tablet = 2 mg, By Mouth, 2 times a day, PRN Pain , Severe, checked masspat, # 28 tablet, 0 Refills, Maintenance, 12/07/21 13:30:00 EDT, Tablet, [facility] #[id number], Partial fill upon patient request if the prescription is for a schedule II o... Start Date: 12/07/21 Status: Ordered Estrace Vaginal Cream 0.1 mg/g = 2 Gm, Vaginally, Daily at bedtime, 2g PV daily at bedtime x 2 weeks, then 1g PV 1-3x per week, # 42.5 Gm, 5 Refills, Maintenance, 11/09/21 11:17:00 EDT, [facility] #[id number], Partial fill upon patient request if the prescription is for a sche... Start Date: 11/09/21 Status: Ordered estradiol 0.0375 mg/24 hours twice weekly transdermal film, extended release See Instructions, 1 patch Topically, change patch twice a week, # 1 pack/packet, 1 Refills, Maintenance, 12/07/21 10:42:00 EDT, [facility] #[id number], Partial fill upon patient request if the prescription is for a schedule II opioid drug., 153,... Start Date: 12/07/21 Status: Ordered gabapentin 800 mg oral tablet See Instructions, TAKE 1 TABLET BY MOUTH FOUR TIMES DAILY, # 360 tablet, 0 Refills, [facility] #[id number], 153, cm, 10/08/21 13:23:00 EDT, Height, 113.9, [...] capsule, 1 Refills, Maintenance, 12/08/21 10:10:00 EDT, [facility] #[id number], 153, cm, 10/08/21 13:23:00 EDT, Height, 113.9,kg, [...] 1 Refills, Maintenance, 07/30/21 12:25:00 EDT, Tablet, [facility] #[id number], Partial fill upon patient request if the prescription is for a schedule II opioid drug... Start Date: 07/30/21 Status: Ordered levothyroxine 0.1 mg oral tablet 1 tablet = 100 mcg, By Mouth, Daily, dose increase, # 90 tablet, 0 Refills, Maintenance, 11/01/21 16:08:00 EDT, [facility] #[id number], Please discontinue 88ug, 153, cm, 10/08/21 13:23:00 [...] 1 Refills, Maintenance, 11/30/21 15:44:00 EDT, Tablet, [facility] #[id number], [place]... Start Date: 11/30/21 Status: Ordered lidocaine 2% topical gel with applicator 5 mL = 0.1 Gm, Topically, 2 times a day, PRN Pain , Moderate, # 60 mL, 2 Refills, Soft Stop, 09/24/21 16:43:00 EDT, Gel, [facility] #[id number], Partial fill upon patient request if the prescription is for a schedule II opioid drug., 153, cm, ... Start Date: 09/24/21 Status: Ordered meloxicam 15 mg oral tablet 1/2 TO 1 TABLET, By Mouth, Daily, PRN NEEDED FOR MODERATE PAIN, # 30 tablet, 1 Refills, 229:04:00 EDT, [facility] #[id number], 153, cm, 10/08/21 13:23:00 EDT, Height, 113.9, [...] 90 capsule, 0 Refills, 09/27/21 14:31:00 EDT, [facility] #[id number], 153, cm, 08/10/21 11:19:00 EDT, Height, 105, kg, 05/31/21 15:15:00 EST, Dry Weight Start Date: 09/27/21 Status: Ordered ondansetron 4 mg oral tablet 1 tablet = 4 mg, By Mouth, Every 8 hours, PRN Nausea & Vomiting, # 30 tablet, 1 Refills, Maintenance, 11/10/21 14:47:00 EDT, [facility] #57005, 153, cm, 10/08/21 13:23:00 EDT, Height, 113.9, kg, 10/08/21 13:23:00 EDT, Dry Weight Start Date: 11/10/21 Status: Ordered oxybutynin 5 mg oral tablet 1 tablet, By Mouth, 3 times a day, # 270 tablet, 1 Refills, [facility] 06881, 153, cm, 08/10/21 11:19:00 EDT, Height, 105, kg, 05/31/21 15:15:00 EST, Dry Weight Start Date: 09/09/21 Status: Ordered Paxlovid 150 mg-100 mg (150 mg-100 mg Dose) oral tablet See Instructions, 2 tabs nirmatrelvir PO and 1 tab ritonavir PO twice daily for 5 days, # 30 tablet, 0 Refills, Acute 12/15/21 15:37:00 EDT, 12/10/21 15:36:00 EDT, [id number], Partial fill upon patient request if the [...] Personnel Name: Candis CARDENAS, Kaiden Villalta Address: [address] [place] [address] Adult & Pediatric Medicine [place], [place] [address]
--- OUTSIDE RECORDS SUMMARY | 2022-12-30 08:25 | XMS_ITS | Continuity of Care Document ---
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 Start Date: 09/28/21 Status: Ordered albuterol 0.083% inhalation solution 3 mL = 2.5 mg, Inhalation, Every 4 hours, PRN for wheezing/cough/shortness of breath, # 25 each, 0 Refills, Maintenance, 10/14/21 22:10:00 EDT, Solution, [facility] #[id number], Partial fill upon patient request if the prescription is for a sched... Start Date: 10/14/21 Status: Ordered Azithromycin 5 Day Dose Pack 250 mg oral tablet See Instructions, Take 2 tablets on day one. Take 1 tablet daily on Days 2-5., # 6 tablet, 0 Refills, Maintenance, 11/18/21 11:47:00 EDT, Tablet, [facility] #07702, Partial fill upon patient request if the prescription is for a schedule II... Start Date: 11/18/21 Status: Ordered benzonatate 100 mg oral capsule 2 capsule, By Mouth, 3 times a day, PRN NEEDED FOR COUGH, # 30 capsule, 1 Refills, Physician Stop 11/10/22 14:46:00 EDT, 03/19/22 17:38:00 EST, [email or web address] #[id number], 153, cm, 10/08/21 13:23:00 EDT, Height, 113.9, kg, 10/08/21 13:23:00 EDT, D... Start Date: 03/19/22 Stop Date: 11/10/22 Status: Ordered budesonide 1 mg/2 mL inhalation suspension 2 mL = 1 mg, Neb, 2 times a day, rinse mouth out after use, # 120 mL, 1 Refills, Maintenance, 10/25/21 18:30:00 EDT, Suspension, [facility] #[id number], Partial fill upon patient request if the [...] FOR PAIN., # 100 Gm, 1 Refills, [email or web address] 78143, 30, APPLY 1 GM TOPICALLY 4 TIMES A DAY FOR PAIN, 153, cm, 06/07/21 11:07:00 EST, Height, 105, kg, 05/31/21 15:15:00 EST, Dry Weight Start Date: 08/05/21 Status: Ordered Dilaudid 2 mg oral tablet 1 tablet = 2 mg, By Mouth, 2 times a day, PRN Pain , Severe, checked masspat, # 28 tablet, 0 Refills, Maintenance, 11/23/21 16:09:00 EDT, Tablet, [facility] #[id number], Partial fill upon patient request if the prescription is for a schedule II o... Start Date: 11/23/21 Status: Ordered Estrace Vaginal Cream 0.1 mg/g = 2 Gm, Vaginally, Daily at bedtime, 2g PV daily at bedtime x 2 weeks, then 1g PV 1-3x per week, # 42.5 Gm, 5 Refills, Maintenance, 11/09/21 11:17:00 EDT, [facility] #[id number], Partial fill upon patient request if the prescription is for a sche... Start Date: 11/09/21 Status: Ordered gabapentin 800 mg oral tablet See Instructions, TAKE 1 TABLET BY MOUTH FOUR TIMES DAILY, # 360 tablet, 0 Refills, [facility] #[id number], 153, cm, 10/08/21 13:23:00 EDT, Height, 113.9, [...] capsule, 1 Refills, Maintenance, 09/28/21 16:58:00 EDT, [facility] #[id number], 153, cm, 08/10/21 11:19:00 EDT, Height, 105, [...] 1 Refills, Maintenance, 07/30/21 12:25:00 EDT, Tablet, [facility] #[id number], Partial fill upon patient request if the prescription is for a schedule II opioid drug... Start Date: 07/30/21 Status: Ordered levothyroxine 0.1 mg oral tablet 1 tablet = 100 mcg, By Mouth, Daily, dose increase, # 90 tablet, 0 Refills, Maintenance, 11/01/21 16:08:00 EDT, [facility] #[id number], Please discontinue 88ug, 153, cm, 10/08/21 13:23:00 [...] 1 Refills, Maintenance, 11/30/21 15:44:00 EDT, Tablet, [facility] #76443, [place]... Start Date: 11/30/21 Status: Ordered lidocaine 2% topical gel with applicator 5 mL = 0.1 Gm, Topically, 2 times a day, PRN Pain , Moderate, # 60 mL, 2 Refills, Soft Stop, 09/24/21 16:43:00 EDT, Gel, [facility] #59319, Partial fill upon patient request if the prescription is for a schedule II opioid drug., 153, cm, ... Start Date: 09/24/21 Status: Ordered meloxicam 15 mg oral tablet 1/2 TO 1 TABLET, By Mouth, Daily, PRN NEEDED FOR MODERATE PAIN, # 30 tablet, 1 Refills, :04:00 EDT, [facility] #[id number], 153, cm, 10/08/21 13:23:00 EDT, Height, 113.9, [...] 90 capsule, 0 Refills, 09/27/21 14:31:00 EDT, [facility] #91735, 153, cm, 08/10/21 11:19:00 EDT, Height, 105, kg, 05/31/21 15:15:00 EST, Dry Weight Start Date: 09/27/21 Status: Ordered ondansetron 4 mg oral tablet 1 tablet = 4 mg, By Mouth, Every 8 hours, PRN Nausea & Vomiting, # 30 tablet, 1 Refills, Maintenance, 11/10/21 14:47:00 EDT, [facility] #[id number], 153, cm, 10/08/21 13:23:00 EDT, Height, 113.9, kg, 10/08/21 13:23:00 EDT, Dry Weight Start Date: 11/10/21 Status: Ordered oxybutynin 5 mg oral tablet 1 tablet, By Mouth, 3 times a day, # 270 tablet, 1 Refills, [email or web address] 95697, 153, cm, 08/10/21 11:19:00 EDT, Height, 105, [...] 12/03/21 15:43:00 EDT, 11/26/21 15:43:00 EDT, Tablet, [facility] #[id number], Partial fill upon patient request if the prescription is for... Start Date: 11/26/21 Stop Date: 12/03/21 Status: Ordered ZyrTEC 10 mg oral tablet 1 tablet = 10 mg, By Mouth, Daily, # 90 tablet, 1 Refills, Maintenance, 07/30/21 12:22:00 EDT, Tablet, [facility] #[id number], Partial fill upon patient request if the [...]
--- OUTSIDE RECORDS SUMMARY | 2022-12-30 08:25 | XMS_ITS | Continuity of Care Document ---
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 Start Date: 12/22/21 Status: Ordered albuterol 0.083% inhalation solution 3 mL = 2.5 mg, Inhalation, Every 4 hours, PRN for wheezing/cough/shortness of breath, # 25 each, 0 Refills, Maintenance, 10/14/21 22:10:00 EDT, Solution, [facility] #[id number], Partial fill upon patient request if the prescription is for a sched... Start Date: 10/14/21 Status: Ordered [place] Saline Mist 0.65% nasal spray 2 sprays, Nares, Both, 4 times a day, # 1 each, 0 Refills, Maintenance, 02/04/22 13:32:00 EDT, [facility] #[id number], Partial fill upon patient request if the [...] tablet, 0 Refills, Maintenance, 12/27/21 13:43:00 EDT, [facility] #[id number], 153, cm, 10/08/21 13:23:00 EDT, Height, 113.9, kg, 10/08/21 13:23:00EDT, Dry Weight Start Date: 12/27/21 Status: Ordered clonazePAM 0.5 mg oral tablet 1 tablet = 0.5 mg, By Mouth, 4 times a day, PRN Anxiety, Patient on controlled substance contract. Please do NOT fill until 09/23/2020, # 112 tablet, 0 Refills, Maintenance, 11/18/20 21:02:00 EDT, Tablet, [facility]/pharmacy #[id number], Partial fill upon patient... Start Date: 11/18/20 Status: Ordered diclofenac 1% topical gel = 1 Gm, Topically, 4 times a day, FOR PAIN., # 100 Gm, 1 Refills, [id number], 30, APPLY 1 GM TOPICALLY 4 TIMES A DAY FOR PAIN, 153, cm, 06/07/21 11:07:00 EST, Height, 105, kg, 05/31/21 15:15:00 EST, Dry Weight Start Date: 08/05/21 Status: Ordered Dilaudid 2 mg oral tablet 1 tablet = 2 mg, By Mouth, 2 times a day, PRN Pain , Severe, checked masspat, # 56 tablet, 0 Refills, Maintenance, 05/05/22 17:13:00 EST, Tablet, [facility] #[id number], Partial fill upon patient request if the prescription is for a schedule II o... Start Date: 05/05/22 Status: Ordered Estrace Vaginal Cream 0.1 mg/g = 2 Gm, Vaginally, Daily at bedtime, 2g PV daily at bedtime x 2 weeks, then 1g PV 1-3x per week, # 42.5 Gm, 5 Refills, Maintenance, 11/09/21 11:17:00 EDT, [facility] #[id number], Partial fill upon patient request if the prescription is for a sche... Start Date: 11/09/21 Status: Ordered Estradiol Patch 0.0375 mg/24 hours twice weekly transdermal film, extended release See Instructions, APPLY 1 PATCH TOPICALLY TWICE WEEKLY DIRECTED, # 8 patch, 6 Refills, Maintenance, 03/23/22 16:10:00 EST, [facility] #[id number], 28, APPLY 1 PATCH TOPICALLY TWICE WEEKLY DIRECTED, 153, cm, 01/04/22 13:15:00 EDT, Height, 11... Start Date: 03/23/22 Status: Ordered fluconazole 150 mg oral tablet 1 tablet = 150 mg, By Mouth, Once, PRN vaginal yeast infection, # 1 tablet, 0 Refills, Soft Stop, 03/15/22 10:42:00 EST, Tablet, [facility] #[id number], Partial fill upon patient request if the prescription is for a schedule II opioid drug., 153,... Start Date: 03/15/22 Status: Ordered fluticasone 50 mcg/inh nasal spray See Instructions, SHAKE LIQUID AND USE 1 SPRAY IN EACH NOSTRIL TWICE DAILY, # 16 Gm, 1 Refills, Maintenance, 05/18/22 13:57:00 EST, [facility] #[id number], 30, SHAKE LIQUID AND USE 1 SPRAY IN EACH NOSTRIL TWICE DAILY, 153, cm, 04/25/22 16:23:00 E... Start Date: 05/18/22 Status: Ordered gabapentin 800 mg oral tablet 1 tablet, By Mouth, 4 times a day, # 360 tablet, 1 Refills, Maintenance, 04/19/22 12:59:00 EST, [facility] #[id number], 153, cm, 01/04/22 13:15:00 EDT, Height, 113.9, [...] capsule, 1 Refills, Maintenance, 12/08/21 10:10:00 EDT, [facility] #[id number], 153, cm, 10/08/21 13:23:00 EDT, Height, 113.9,kg, [...] 1 Refills, Maintenance, 04/28/22 13:51:00 EST, Tablet, [facility] #[id number], Partial fill upon patient request if the prescription is for a schedule II opioid drug., 153, cm... Start Date: 04/28/22 Status: Ordered lidocaine 4% topical cream 1 application, Topically, 3 times a day, PRN pain of forearms, # 30 Gm, 1 Refills, Acute 06/23/22 16:24:00 EST, 04/25/22 16:23:00 EST, Cream, [facility] #[id number], Partial fill upon patient request if the prescription is for a schedule II opioi... Start Date: 04/25/22 Stop Date: 06/23/22 Status: Ordered meloxicam 15 mg oral tablet 1/2 TO 1 TABLET, By Mouth, Daily, PRN NEEDED FOR MODERATE PAIN, # 30 tablet, 5 Refills, Maintenance, 01/10/22 20:40:00 EDT, [facility] #[id number], 153, cm, 01/04/22 13:15:00 EDT, Height, 113.9, [...] capsule, 1 Refills, Maintenance, 04/19/22 12:41:00 EST, [facility] #[id number], 153, cm, 01/04/22 13:15:00 EDT, Height, 113.9, kg, 10/08/21 13:23:00 EDT, Dry Weight Start Date: 04/19/22 Status: Ordered ondansetron 4 mg oral tablet 1 tablet, By Mouth, Every 8 hours, PRN NEEDED FOR NAUSEA OR VOMITING, # 30 tablet, 1 Refills, Maintenance, 04/14/22 21:15:00 EST, [facility] #[id number], 153, cm, 01/04/22 13:15:00 EDT, Height, 113.9, kg, 10/08/21 13:23:00 EDT, Dry Weight Start Date: 04/14/22 Status: Ordered oxybutynin 5 mg oral tablet 1 tablet, By Mouth, 3 times a day, # 270 tablet, 1 Refills, 01/10/22 10:29:00 EDT, [facility] #[id number], 153, cm, 01/04/22 13:15:00 EDT, Height, 113.9, [...] 04/14/22 21:16:00 EST, Route to Pharmacy Electronically, [facility] #[id number], Partial fill upon patient request if the... [...] Personnel Name: Candis CARDENAS, Kaiden Villalta Position: [facility] Primary Care Physician Member Role: PCP Address: Address: [address] [place] [address] Adult [place] [address]- Care Team Related Persons Name: RODOLFO SHEIKH Address: home [address] [facility] [address] [place] [id number] Name: CHIARA TEE Address: home [address] [place] [address] [place] [id number]
--- OUTSIDE RECORDS SUMMARY | 2022-12-30 08:25 | XMS_ITS | Continuity of Care Document ---
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 Start Date: 12/22/21 Status: Ordered albuterol 0.083% inhalation solution 3 mL = 2.5 mg, Inhalation, Every 4 hours, PRN for wheezing/cough/shortness of breath, # 25 each, 0 Refills, Maintenance, 06/29/22 13:08:00 EDT, Solution, [facility] #[id number], Partial fill upon patient request if the prescription is for a sched... Start Date: 06/29/22 Status: Ordered [place] Saline Mist 0.65% nasal spray 2 sprays, Nares, Both, 4 times a day, # 1 each, 0 Refills, Maintenance, 02/04/22 13:32:00 EDT, [facility] #[id number], Partial fill upon patient request if the [...] tablet, 0 Refills, Maintenance, 12/27/21 13:43:00 EDT, [facility] #[id number], 153, cm, 10/08/21 13:23:00 EDT, Height, 113.9, kg, 10/08/21 13:23:00EDT, Dry Weight Start Date: 12/27/21 Status: Ordered chlorhexidine 2% topical liquid See Instructions, 1 application to bilateral forearms twice weekly, # 120 mL, 3 Refills, Soft Stop,06/17/22 11:06:00 EST, Liquid, [facility] #[id number], Partial fill upon patient request if the prescription is for a schedule II opioid drug., 1... Start Date: 06/17/22 Status: Ordered chlorhexidine 4% topical soap See Instructions, apply topically twice weekly to skin on forearms, # 120 mL, 2 Refills, Soft Stop,06/17/22 16:03:00 EST, [facility] #[id number], Partial fill upon patient request if the prescription is for a schedule II opioid drug., apply topi... Start Date: 06/17/22 Status: Ordered clonazePAM 0.5 mg oral tablet 1 tablet = 0.5 mg, By Mouth, 4 times a day, PRN Anxiety, Patient on controlled substance contract. Please do NOT fill until 09/23/2020, # 112 tablet, 0 Refills, Maintenance, 11/18/20 21:02:00 EDT, Tablet, [facility]/pharmacy #[id number], Partial fill upon patient... Start Date: 11/18/20 Status: Ordered diclofenac 1% topical gel = 1 Gm, Topically, 4 times a day, FOR PAIN., # 100 Gm, 1 Refills, [facility] [address], 30, APPLY 1 GM TOPICALLY 4 TIMES A DAY FOR PAIN, 153, cm, 06/07/21 11:07:00 EST, Height, 105, kg, 05/31/21 15:15:00 EST, Dry Weight Start Date: 08/05/21 Status: Ordered Dilaudid 2 mg oral tablet 1 tablet = 2 mg, By Mouth, 2 times a day, PRN Pain , Severe, checked masspat, # 56 tablet, 0 Refills, Maintenance, 06/27/22 21:04:00 EDT, Tablet, [facility] #[id number], Partial fill upon patient request if the prescription is for a schedule II o... Start Date: 06/27/22 Status: Ordered Estrace Vaginal Cream 0.1 mg/g = 2 Gm, Vaginally, Daily at bedtime, 2g PV daily at bedtime x 2 weeks, then 1g PV 1-3x per week, # 42.5 Gm, 5 Refills, Maintenance, 11/09/21 11:17:00 EDT, [facility] #[id number], Partial fill upon patient request if the prescription is for a sche... Start Date: 11/09/21 Status: Ordered Estradiol Patch 0.0375 mg/24 hours twice weekly transdermal film, extended release See Instructions, APPLY 1 PATCH TOPICALLY TWICE WEEKLY DIRECTED, # 8 patch, 6 Refills, Maintenance, 03/23/22 16:10:00 EST, [facility] #[id number], 28, APPLY 1 PATCH TOPICALLY TWICE WEEKLY DIRECTED, 153, cm, 01/04/22 13:15:00 EDT, Height, 11... Start Date: 03/23/22 Status: Ordered fluconazole 150 mg oral tablet 1 tablet = 150 mg, By Mouth, Once, PRN vaginal yeast infection, # 1 tablet, 0 Refills, Soft Stop, 03/15/22 10:42:00 EST, Tablet, [facility] #[id number], Partial fill upon patient request if the prescription is for a schedule II opioid drug., 153,... Start Date: 03/15/22 Status: Ordered fluticasone 50 mcg/inh nasal spray See Instructions, SHAKE LIQUID AND USE 1 SPRAY IN EACH NOSTRIL TWICE DAILY, # 16 Gm, 1 Refills, Maintenance, 05/18/22 13:57:00 EST, [facility] #[id number], 30, SHAKE LIQUID AND USE 1 SPRAY IN EACH NOSTRIL TWICE DAILY, 153, cm, 04/25/22 16:23:00 E... Start Date: 05/18/22 Status: Ordered gabapentin 800 mg oral tablet 1 tablet, By Mouth, 4 times a day, # 360 tablet, 1 Refills, Maintenance, 04/19/22 12:59:00 EST, [facility] #[id number], 153, cm, 01/04/22 13:15:00 EDT, Height, 113.9, [...] capsule, 1 Refills, Maintenance, 05/20/22 12:57:00 EST, [facility] #[id number], 153, cm, 04/25/22 16:23:00 EST, Height, 109, [...] 1 Refills, Maintenance, 04/28/22 13:51:00 EST, Tablet, [facility] #[id number], Partial fill upon patient request if the prescription is for a schedule II opioid drug., 153, cm... Start Date: 04/28/22 Status: Ordered lidocaine 4% topical cream 1 application, Topically, 3 times a day, PRN Pain , Mild, # 30 Gm, 1 Refills, Maintenance, 06/24/2315:24:00 EST, Cream, [facility] #[id number], Partial fill upon patient request if the prescription is for a schedule II opioid drug., 1 applicatio... Start Date: 06/23/22 Status: Ordered meloxicam 15 mg oral tablet 1/2 TO 1 TABLET, By Mouth, Daily, PRN NEEDED FOR MODERATE PAIN, # 30 tablet, 5 Refills, Maintenance, 01/10/22 20:40:00 EDT, [facility] #[id number], 153, cm, 01/04/22 13:15:00 EDT, Height, 113.9, [...] capsule, 1 Refills, Maintenance, 04/19/22 12:41:00 EST, [facility] #[id number], 153, cm, 01/04/22 13:15:00 EDT, Height, 113.9, kg, 10/08/21 13:23:00 EDT, Dry Weight Start Date: 04/19/22 Status: Ordered ondansetron 4 mg oral tablet 1 tablet, By Mouth, Every 8 hours, PRN NEEDED FOR NAUSEA OR VOMITING, # 30 tablet, 1 Refills, Maintenance, 06/14/22 10:29:00 EST, [facility] #[id number], 153, cm, 06/08/22 9:37:00 EST, Height, 109, kg, 04/25/22 15:54:00 EST, Dry Weight Start Date: 06/14/22 Status: Ordered oxybutynin 5 mg oral tablet 1 tablet, By Mouth, 3 times a day, # 270 tablet, 1 Refills, 01/10/22 10:29:00 EDT, [facility] #[id number], 153, cm, 01/04/22 13:15:00 EDT, Height, 113.9, [...] 06/08/22 15:01:00 EST, Route to Pharmacy Electronically, [facility] #[id number], Partial fill upon patient request if the... Start Date: 06/08/22 Status: Ordered triamcinolone 0.1% topical cream 1 application, Topically, 3 times a day, PRN arm rash, # 30 Gm, 1 Refills, Acute 06/08/23 9:53:00 EST, 06/08/22 9:53:00 EST, Cream, [facility] #[id number], Partial fill upon patient request if the [...] Physician Member Role: PCP Address: Address: [address] [place] [address] Adult [place] [address]- Care Team Related Persons Name: AGUILAR RODOLFO Address: home [address] [facility] [address] [place] [address] Name: CHIARA TEE Address: home [address] [facility] [address] [place] [address]
--- OUTSIDE RECORDS SUMMARY | 2022-12-30 08:25 | XMS_ITS | Continuity of Care Document ---
Author Name Unknown Organization [facility] Address [address] [place], [place] [address]sarah espana, [address] [place] [address]- Care Team Providers Care Button Puncher Name Role Phone Candis CARDENAS, Kaiden Villalta Primary Care Physician [phone] Encounter [facility] [place] Date(s): 09/27/22 - 10/27/22 [facility] [address] [place] [address] Drive, [address] [place] [address]- Allergies, Adverse Reactions, Alerts Substance Reaction Severity [...] 8.5 Gm,0 Refills, Maintenance, 12/22/21 10:40:00 EDT, [facility] #[id number], 2 puffs Inhalation Every 4 hours,PRN: NEEDED FOR WHEEZING/cough/shortness... Start Date: 12/22/21 Status: Ordered albuterol 0.083% inhalation solution 3 mL = 2.5 mg, Inhalation, Every 4 hours, PRN for wheezing/cough/shortness of breath, # 25 each, 0 Refills, Maintenance, 06/29/22 13:08:00 EDT, Solution, [facility] #[id number], Partial fill upon patient request if the prescription is for a sched... Start Date: 06/29/22 Status: Ordered [place] Saline Mist 0.65% nasal spray 2 sprays, Nares, Both, 4 times a day, # 1 each, 0 Refills, Maintenance, 02/04/22 13:32:00 EDT, [facility] #[id number], Partial fill upon patient request if the [...] tablet, 0 Refills, Maintenance, 12/27/21 13:43:00 EDT, [facility] #[id number], 153, cm, 10/08/21 13:23:00 EDT, Height, 113.9, kg, 10/08/21 13:23:00EDT, Dry Weight Start Date: 12/27/21 Status: Ordered chlorhexidine 2% topical liquid See Instructions, 1 application to bilateral forearms twice weekly, # 120 mL, 3 Refills, Soft Stop,06/17/22 11:06:00 EST, Liquid, [facility] #[id number], Partial fill upon patient request if the prescription is for a schedule II opioid drug., 1... Start Date: 06/17/22 Status: Ordered chlorhexidine 4% topical soap See Instructions, apply topically twice weekly to skin on forearms, # 120 mL, 2 Refills, Soft Stop,06/17/22 16:03:00 EST, [facility] #[id number], Partial fill upon patient request if the [...] PAIN., # 100 Gm, 1 Refills, [id number], 30, APPLY 1 GM TOPICALLY 4 TIMES A DAY FOR PAIN, 153, cm, 06/07/21 11:07:00 EST, Height, 105, kg, 05/31/21 15:15:00 EST, Dry Weight Start Date: 08/05/21 Status: Ordered Dilaudid 2 mg oral tablet 1 tablet = 2 mg, By Mouth, 2 times a day, PRN Pain , Severe, checked masspat, # 56 tablet, 0 Refills, Maintenance, 10/25/22 21:47:00 EDT, Tablet, [facility] #[id number], Partial fill upon patient request if the prescription is for a schedule II o... Start Date: 10/25/22 Status: Ordered Estrace Vaginal Cream 0.1 mg/g = 2 Gm, Vaginally, Daily at bedtime, 2g PV daily at bedtime x 2 weeks, then 1g PV 1-3x per week, # 42.5 Gm, 5 Refills, Maintenance, 11/09/21 11:17:00 EDT, [facility] #[id number], Partial fill upon patient request if the prescription is for a sche... Start Date: 11/09/21 Status: Ordered Estradiol Patch 0.0375 mg/24 hours twice weekly transdermal film, extended release See Instructions, APPLY 1 PATCH TOPICALLY TWICE WEEKLY DIRECTED, # 8 patch, 2 Refills, Maintenance, 09/22/22 21:55:00 EDT, [facility] #[id number], 28, APPLY 1 PATCH TOPICALLY TWICE WEEKLY DIRECTED, 153, cm, 06/17/22 10:53:00 EST, Height, 10... Start Date: 09/22/22 Status: Ordered fluconazole 150 mg oral tablet 1 tablet = 150 mg, By Mouth, Once, PRN vaginal yeast infection, # 1 tablet, 0 Refills, Soft Stop, 03/15/22 10:42:00 EST, Tablet, [facility] #[id number], Partial fill upon patient request if the prescription is for a schedule II opioid drug., 153,... Start Date: 03/15/22 Status: Ordered fluticasone 50 mcg/inh nasal spray See Instructions, SHAKE LIQUID AND USE 1 SPRAY IN EACH NOSTRIL TWICE DAILY, # 16 Gm, 1 Refills, Maintenance, 05/18/22 13:57:00 EST, [facility] #[id number], 30, SHAKE LIQUID AND USE 1 SPRAY IN EACH NOSTRIL TWICE DAILY, 153, cm, 04/25/22 16:23:00 E... Start Date: 05/18/22 Status: Ordered gabapentin 800 mg oral tablet 1 tablet, By Mouth, 4 times a day, # 360 tablet, 1 Refills, Maintenance, 10/25/22 21:47:00 EDT, [facility] #[id number], 153, cm, 06/17/22 10:53:00 EST, Height, 109, [...] capsule, 1 Refills, Maintenance, 07/18/22 9:45:00 EDT, [facility] #[id number], 153, cm, 06/17/22 10:53:00 EST, Height, 109, kg, 06/17/22 10:53:00 EST, Dry Weight Start Date: 07/18/22 Status: Ordered hydrOXYzine pamoate 50 mg oral capsule See Instructions, TAKE 1 CAPSULE BY MOUTH THREE TIMES DAILY NEEDED FOR ITCHING, # 90 capsule, 0 Refills, Maintenance, 10/19/22 8:55:00 EDT, [facility] #[id number], 153, cm, 06/17/22 10:53:00 EST, Height, 109, [...] 1 Refills, Maintenance, 04/28/22 13:51:00 EST, Tablet, [facility] #[id number], Partial fill upon patient request if the prescription is for a schedule II opioid drug., 153, cm... Start Date: 04/28/22 Status: Ordered lidocaine 4% topical cream 1 application, Topically, 3 times a day, PRN Pain , Mild, # 30 Gm, 1 Refills, Maintenance, 06/24/2315:24:00 EST, Cream, [facility] #[id number], Partial fill upon patient request if the prescription is for a schedule II opioid drug., 1 applicatio... Start Date: 06/23/22 Status: Ordered meloxicam 15 mg oral tablet 1/2 TO 1 TABLET, By Mouth, Daily, PRN NEEDED FOR MODERATE PAIN, # 30 tablet, 5 Refills, Maintenance, 01/10/22 20:40:00 EDT, [facility] #[id number], 153, cm, 01/04/22 13:15:00 EDT, Height, 113.9, [...] capsule, 1 Refills, Maintenance, 07/26/22 14:24:00 EDT, [facility] #[id number], 153, cm, 06/17/22 10:53:00 EST, Height, 109, kg, 06/17/22 10:53:00 EST, Dry Weight Start Date: 07/26/22 Status: Ordered ondansetron 4 mg oral tablet 1 tablet, By Mouth, Every 8 hours, PRN NEEDED FOR NAUSEA OR VOMITING, # 30 tablet, 1 Refills, Maintenance, 10/27/22 23:08:00 EDT, [facility] #[id number], 153, cm, 06/17/22 10:53:00 EST, Height, 109, kg, 06/17/22 10:53:00 EST, Dry Weight Start Date: 10/27/22 Status: Ordered oxybutynin 5 mg oral tablet 1 tablet, By Mouth, 3 times a day, # 270 tablet, 1 Refills, Maintenance, 10/04/22 20:44:00 EDT, [facility] #[id number], 153, cm, 06/17/22 10:53:00 EST, Height, 109, [...] 07/01/22 14:21:00 EDT, Route to Pharmacy Electronically, [facility] #[id number], Partial fill upon patient request if the... Start Date: 07/01/22 Status: Ordered triamcinolone 0.1% topical cream 1 application, Topically, 3 times a day, PRN arm rash, # 30 Gm, 1 Refills, Acute 06/08/23 9:53:00 EST, 06/08/22 9:53:00 EST, Cream, [facility] #[id number], Partial fill upon patient request if the [...] Primary Care Member Role: PCP Address: Address: [address] [place] [address] Adult [place] [address]- Care Team Related Persons Name: RODOLFO SHEIKH Address: home [address] [facility] [address] [place] [address] Name: CHIARA TEE Address: home [address] [place] [address] [address] [place] [address]
--- OUTSIDE RECORDS SUMMARY | 2022-12-30 08:25 | XMS_ITS | Continuity of Care Document ---
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 Start Date: 09/07/20 Status: Ordered amitriptyline 10 mg oral tablet 10 mg, 1, tablet, By Mouth, Daily at bedtime, # 90 tablet, Refills 1, Tot. Refills 1, Maintenance, 09/22/20 16:39:00 EDT, Route to Pharmacy Electronically, [facility]/pharmacy #[id number], Partial fill upon patient request if the prescription is for a schedule II... Start Date: 09/22/20 Status: Ordered baclofen 10 mg oral tablet 10 mg, 1, tablet, By Mouth, 3 times a day, PRN, # 30 tablet, Refills 0, Tot. Refills 0, Maintenance, Spasm, 01/31/19 21:47:23 EDT, Route to Pharmacy Electronically, [id number], [facility]/pharmacy #[id number] Start Date: 01/31/19 Stop Date: 02/14/19 Status: Ordered clonazePAM 0.5 mg oral tablet 1 tablet = 0.5 mg, By Mouth, 4 times a day, PRN Anxiety, Patient on controlled substance contract. Please do NOT fill until 09/23/2020, # 112 tablet, 1 Refills, Maintenance, 09/22/20 16:54:00 EDT, Tablet, [facility]/pharmacy #[id number], [...] 0 Refills, Maintenance, 09/01/20 20:10:00 EDT, Aerosol, [facility]/pharmacy #[id number], Partial fill [...] with sertraline 100mg tab in morning for [id number] per day, # 90 tablet, 1 Refills, [...]
--- OUTSIDE RECORDS SUMMARY | 2022-12-30 08:25 | XMS_ITS | Continuity of Care Document ---
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 Start Date: 12/22/21 Status: Ordered albuterol 0.083% inhalation solution 3 mL = 2.5 mg, Inhalation, Every 4 hours, PRN for wheezing/cough/shortness of breath, # 25 each, 0 Refills, Maintenance, 10/14/21 22:10:00 EDT, Solution, [facility] #[id number], Partial fill upon patient request if the prescription is for a sched... Start Date: 10/14/21 Status: Ordered [place] Saline Mist 0.65% nasal spray 2 sprays, Nares, Both, 4 times a day, # 1 each, 0 Refills, Maintenance, 02/04/22 13:32:00 EDT, [facility] #[id number], Partial fill upon patient request if the [...] tablet, 0 Refills, Maintenance, 12/27/21 13:43:00 EDT, [facility] #[id number], 153, cm, 10/08/21 13:23:00 EDT, Height, 113.9, kg, 10/08/21 13:23:00EDT, Dry Weight Start Date: 12/27/21 Status: Ordered clonazePAM 0.5 mg oral tablet 1 tablet = 0.5 mg, By Mouth, 4 times a day, PRN Anxiety, Patient on controlled substance contract. Please do NOT fill until 09/23/2020, # 112 tablet, 0 Refills, Maintenance, 11/18/20 21:02:00 EDT, Tablet, [facility]/pharmacy #[id number], Partial fill upon patient... Start Date: 11/18/20 Status: Ordered diclofenac 1% topical gel = 1 Gm, Topically, 4 times a day, FOR PAIN., # 100 Gm, 1 Refills, [id number], 30, APPLY 1 GM TOPICALLY 4 TIMES A DAY FOR PAIN, 153, cm, 06/07/21 11:07:00 EST, Height, 105, kg, 05/31/21 15:15:00 EST, Dry Weight Start Date: 08/05/21 Status: Ordered Dilaudid 2 mg oral tablet 1 tablet = 2 mg, By Mouth, 2 times a day, PRN Pain , Severe, checked masspat, # 28 tablet, 0 Refills, Maintenance, 03/04/22 14:11:00 EST, Tablet, [facility] #[id number], Partial fill upon patient request if the prescription is for a schedule II o... Start Date: 03/04/22 Status: Ordered Estrace Vaginal Cream 0.1 mg/g = 2 Gm, Vaginally, Daily at bedtime, 2g PV daily at bedtime x 2 weeks, then 1g PV 1-3x per week, # 42.5 Gm, 5 Refills, Maintenance, 11/09/21 11:17:00 EDT, [facility] #[id number], Partial fill upon patient request if the prescription is for a sche... Start Date: 11/09/21 Status: Ordered Estradiol Patch 0.0375 mg/24 hours twice weekly transdermal film, extended release See Instructions, APPLY 1 PATCH TOPICALLY TWICE WEEKLY DIRECTED, # 8 patch, 0 Refills, Maintenance, 02/26/22 10:23:00 EST, [facility] #[id number], 28, APPLY 1 PATCH TOPICALLY TWICE WEEKLY DIRECTED, 153, cm, 01/04/22 13:15:00 EDT, Height, 11... Start Date: 02/26/22 Status: Ordered fluconazole 150 mg oral tablet 1 tablet = 150 mg, By Mouth, Once, PRN vaginal yeast infection, # 1 tablet, 0 Refills, Soft Stop, 03/15/22 10:42:00 EST, Tablet, [facility] #[id number], Partial fill upon patient request if the prescription is for a schedule II opioid drug., 153,... Start Date: 03/15/22 Status: Ordered gabapentin 800 mg oral tablet See Instructions, TAKE 1 TABLET BY MOUTH FOUR TIMES DAILY, # 360 tablet, 0 Refills, [facility] #[id number], 153, cm, 10/08/21 13:23:00 EDT, Height, 113.9, [...] capsule, 1 Refills, Maintenance, 12/08/21 10:10:00 EDT, [facility] #[id number], 153, cm, 10/08/21 13:23:00 EDT, Height, 113.9,kg, [...] 1 Refills, Maintenance, 03/14/22 15:04:00 EST, Tablet, [facility] #[id number], Partial fill upon patient request if the prescription is for a schedule II opioid drug., 153, cm... Start Date: 03/14/22 Status: Ordered lidocaine 3% topical gel 1 application, Topically, 2 times a day, PRN as needed for pain, to replace 2% topical, # 28.5 Gm, 2 Refills, Acute 03/29/22 14:17:00 EST, 12/28/21 14:17:00 EDT, Gel, [facility] #[id number], Partial fill upon patient request if the prescription i... Start Date: 12/28/21 Stop Date: 03/29/22 Status: Ordered meloxicam 15 mg oral tablet 1/2 TO 1 TABLET, By Mouth, Daily, PRN NEEDED FOR MODERATE PAIN, # 30 tablet, 5 Refills, Maintenance, 01/10/22 20:40:00 EDT, [facility] #[id number], 153, cm, 01/04/22 13:15:00 EDT, Height, 113.9, [...] capsule, 0 Refills, Maintenance, 01/16/22 8:28:00 EDT, [facility] #[id number], 153, cm, 01/04/22 13:15:00 EDT, Height, 113.9, kg, 10/08/21 13:23:00 EDT, Dry Weight Start Date: 01/16/22 Status: Ordered ondansetron 4 mg oral tablet 1 tablet, By Mouth, Every 8 hours, PRN NEEDED FOR NAUSEA OR VOMITING, # 30 tablet, 0 Refills, Maintenance, 03/01/22 11:29:00 EST, [facility] #[id number], 153, cm, 01/04/22 13:15:00 EDT, Height, 113.9, kg, 10/08/21 13:23:00 EDT, Dry Weight Start Date: 03/01/22 Status: Ordered oxybutynin 5 mg oral tablet 1 tablet, By Mouth, 3 times a day, # 270 tablet, 1 Refills, 01/10/22 10:29:00 EDT, [facility] #[id number], 153, cm, 01/04/22 13:15:00 EDT, Height, 113.9, [...] 03/14/22 15:10:00 EST, Route to Pharmacy Electronically, [facility] #[id number], Partial fill upon patient request if the... Start Date: 03/14/22 Status: Ordered valacyclovir 1 gm oral tablet 1 tablet = 1 Gm, By Mouth, 3 times a day, for 7 days, # 21 tablet, 0 Refills, Acute 03/22/22 10:41:00 EST, 03/15/22 10:41:00 EST, Tablet, [facility] #[id number], Partial fill upon patient request if the [...] Personnel Name: Candis CARDENAS, Kaiden Villalta Position: [facility] Primary Care Physician Member Role: PCP Address: Address: [address] [place] [address] Adult & [place] [address]- Care Team Related Persons Name: RODOLFO SHEIKH Address: home [address] [facility] [address] [place] [id number] Name: CHIARA TEE Address: home [address] [place] [address] [address] [place] [id number]
--- OUTSIDE RECORDS SUMMARY | 2022-12-30 08:25 | XMS_ITS | Continuity of Care Document ---
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 Role Phone Candis CARDENAS, Kaiden Villalta Primary Care Physician Encounter [facility] [place] Date(s): 06/10/21 - 07/10/21 [facility] [address] [place], [place] [address] [...] FOR WHEEZING, # 8.5 each, 0 Refills, [facility] [id number], 20, INHALE 2 PUFFS BY MOUTH EVERY 4 HOURS NEEDED FOR WHEEZING, 160, cm, 03/30/21 10:47:00 EST, Height, 104.6, kg, 12/04/20 10:52:00 EDT, Dry Weight Start Date: 04/28/21 Status: Ordered amitriptyline 10 mg oral tablet 10 mg, 1, tablet, By Mouth, Daily at bedtime, # 90 tablet, Refills 1, Tot. Refills 1, Maintenance, 12/24/20 16:08:00 EDT, Route to Pharmacy Electronically, [facility]/pharmacy #[id number], Partial fill upon patient request if the prescription is for a schedule II... Start Date: 12/24/20 Status: Ordered baclofen 10 mg oral tablet 10 mg, 1, tablet, By Mouth, 3 times a day, PRN, # 30 tablet, Refills 0, Tot. Refills 0, Maintenance, Spasm, 01/31/19 21:47:23 EDT, Route to Pharmacy Electronically, [id number], [facility]/pharmacy #[id number] Start Date: 01/31/19 Stop Date: 02/14/19 Status: Ordered benzonatate 100 mg oral capsule 2 capsule, By Mouth, 3 times a day, PRN NEEDED FOR COUGH, # 30 capsule, 1 Refills, Physician Stop 03/19/22 17:38:00 EST, 02/19/22 16:55:00 EDT, [facility]/pharmacy #[id number], 160, cm, 12/04/20 10:52:00 EDT, Height, 104.6, kg, 12/04/20 10:52:00 EDT, Dry Weight Start Date: 02/19/22 Stop Date: 03/19/22 Status: Ordered benzonatate 100 mg oral capsule 2 capsule, By Mouth, 3 times a day, PRN NEEDED FOR COUGH, # 30 capsule, 1 Refills, Physician Stop 02/19/22 16:55:00 EDT, 02/19/21 16:54:00 EDT, [facility]/pharmacy #[id number], 160, cm, 12/04/20 10:52:00 EDT, Height, 104.6, kg, 12/04/20 10:52:00 EDT, Dry Weight Start Date: 02/19/21 Stop Date: 02/19/22 Status: Ordered clonazePAM 0.5 mg oral tablet 1 tablet = 0.5 mg, By Mouth, 4 times a day, PRN Anxiety, Patient on controlled substance contract. Please do NOT fill until 09/23/2020, # 112 tablet, 0 Refills, Maintenance, 11/18/20 21:02:00 EDT, Tablet, [facility]/pharmacy #[id number], Partial fill upon patient... Start Date: 11/18/20 Status: Ordered Dilaudid 2 mg oral tablet 0.5 tablet = 1 mg, By Mouth, Every 6 hours, PRN Pain , Severe, # 28 tablet, 0 Refills, Acute 06/30/22 10:07:00 EDT, 06/30/21 10:06:00 EDT, Tablet, [facility]/pharmacy #[id number], Partial fill upon patient request if the prescription is for a schedule II opioid drRobert.. Start Date: 06/30/21 Stop Date: 06/30/22 Status: Ordered Famotidine 0 Refills, Maintenance, 04/07/19 16:11:00 EST Start Date: 04/07/19 Status: Ordered gabapentin 800 mg oral tablet 1 tablet, By Mouth, 4 times a day, # 360 tablet, 1 Refills, [facility] [id number], 160, cm, 03/30/21 10:47:00 EST, Height, 104.6, [...] 1 Refills, Maintenance, 05/14/21 15:23:00 EST, Tablet, [facility]/pharmacy #[id number], Partial fill upon patient request if the prescription is for a schedule II opioid drug., 160, c... Start Date: 05/14/21 Status: Ordered omeprazole 20 mg oral enteric coated capsule 1 capsule, By Mouth, Daily, # 90 capsule, 1 Refills, [facility] [id number], 160, cm, 03/30/21 10:47:00 EST, Height, 104.6, kg, 12/04/20 10:52:00 EDT, Dry Weight Start Date: 03/31/21 Status: Ordered ondansetron 4 mg oral tablet See Instructions, TAKE 1 TABLET BY MOUTH EVERY 8 HOURS NEEDED FOR NAUSEA AND VOMITING, # 15 tablet, 1 Refills, Physician Stop 07/12/21 15:23:00 EDT, 05/14/21 15:22:00 EST, [facility]/pharmacy #[id number], 160,cm, 03/30/21 10:47:00 EST, Height, 104.6, kg, 12/04... Start Date: 05/14/21 Stop Date: 07/12/21 Status: Ordered oxybutynin 5 mg oral tablet 1 tablet, By Mouth, 3 times a day, dose increase, # 270 tablet, 1 Refills, Maintenance, 03/19/21 17:40:00 EST, [facility]/pharmacy #[id number], 160, cm, 12/04/20 10:52:00 EDT, [...]
--- OUTSIDE RECORDS SUMMARY | 2022-12-30 08:25 | XMS_ITS | Continuity of Care Document ---
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 Start Date: 12/22/21 Status: Ordered albuterol 0.083% inhalation solution 3 mL = 2.5 mg, Inhalation, Every 4 hours, PRN for wheezing/cough/shortness of breath, # 25 each, 0 Refills, Maintenance, 06/29/22 13:08:00 EDT, Solution, [facility] #[id number], Partial fill upon patient request if the prescription is for a sched... Start Date: 06/29/22 Status: Ordered [place] Saline Mist 0.65% nasal spray 2 sprays, Nares, Both, 4 times a day, # 1 each, 0 Refills, Maintenance, 02/04/22 13:32:00 EDT, [facility] #[id number], Partial fill upon patient request if the [...] tablet, 0 Refills, Maintenance, 12/27/21 13:43:00 EDT, [facility] #[id number], 153, cm, 10/08/21 13:23:00 EDT, Height, 113.9, kg, 10/08/21 13:23:00EDT, Dry Weight Start Date: 12/27/21 Status: Ordered chlorhexidine 2% topical liquid See Instructions, 1 application to bilateral forearms twice weekly, # 120 mL, 3 Refills, Soft Stop,06/17/22 11:06:00 EST, Liquid, [facility] #[id number], Partial fill upon patient request if the prescription is for a schedule II opioid drug., 1... Start Date: 06/17/22 Status: Ordered chlorhexidine 4% topical soap See Instructions, apply topically twice weekly to skin on forearms, # 120 mL, 2 Refills, Soft Stop,06/17/22 16:03:00 EST, [facility] #[id number], Partial fill upon patient request if the [...] FOR PAIN., # 100 Gm, 1 Refills, [id number], 30, APPLY 1 GM TOPICALLY 4 TIMES A DAY FOR PAIN, 153, cm, 06/07/21 11:07:00 EST, Height, 105, kg, 05/31/21 15:15:00 EST, Dry Weight Start Date: 08/05/21 Status: Ordered Dilaudid 2 mg oral tablet 1 tablet = 2 mg, By Mouth, 2 times a day, PRN Pain , Severe, checked masspat, # 56 tablet, 0 Refills, Maintenance, 08/26/22 14:09:00 EDT, Tablet, [facility] #[id number], Partial fill upon patient request if the prescription is for a schedule II o... Start Date: 08/26/22 Status: Ordered Estrace Vaginal Cream 0.1 mg/g = 2 Gm, Vaginally, Daily at bedtime, 2g PV daily at bedtime x 2 weeks, then 1g PV 1-3x per week, # 42.5 Gm, 5 Refills, Maintenance, 11/09/21 11:17:00 EDT, [facility] #[id number], Partial fill upon patient request if the prescription is for a sche... Start Date: 11/09/21 Status: Ordered Estradiol Patch 0.0375 mg/24 hours twice weekly transdermal film, extended release See Instructions, APPLY 1 PATCH TOPICALLY TWICE WEEKLY DIRECTED, # 8 patch, 2 Refills, Maintenance, 09/22/22 21:55:00 EDT, [facility] #[id number], 28, APPLY 1 PATCH TOPICALLY TWICE WEEKLY DIRECTED, 153, cm, 06/17/22 10:53:00 EST, Height, 10... Start Date: 09/22/22 Status: Ordered fluconazole 150 mg oral tablet 1 tablet = 150 mg, By Mouth, Once, PRN vaginal yeast infection, # 1 tablet, 0 Refills, Soft Stop, 03/15/22 10:42:00 EST, Tablet, [facility] #[id number], Partial fill upon patient request if the prescription is for a schedule II opioid drug., 153,... Start Date: 03/15/22 Status: Ordered fluticasone 50 mcg/inh nasal spray See Instructions, SHAKE LIQUID AND USE 1 SPRAY IN EACH NOSTRIL TWICE DAILY, # 16 Gm, 1 Refills, Maintenance, 05/18/22 13:57:00 EST, [facility] #[id number], 30, SHAKE LIQUID AND USE 1 SPRAY IN EACH NOSTRIL TWICE DAILY, 153, cm, 04/25/22 16:23:00 E... Start Date: 05/18/22 Status: Ordered gabapentin 800 mg oral tablet 1 tablet, By Mouth, 4 times a day, # 360 tablet, 1 Refills, Maintenance, 04/19/22 12:59:00 EST, [facility] #[id number], 153, cm, 01/04/22 13:15:00 EDT, Height, 113.9, [...] capsule, 1 Refills, Maintenance, 07/18/22 9:45:00 EDT, [facility] #[id number], 153, cm, 06/17/22 10:53:00 EST, Height, 109, [...] 1 Refills, Maintenance, 04/28/22 13:51:00 EST, Tablet, [facility] #[id number], Partial fill upon patient request if the prescription is for a schedule II opioid drug., 153, cm... Start Date: 04/28/22 Status: Ordered lidocaine 4% topical cream 1 application, Topically, 3 times a day, PRN Pain , Mild, # 30 Gm, 1 Refills, Maintenance, 06/24/2315:24:00 EST, Cream, [facility] #[id number], Partial fill upon patient request if the prescription is for a schedule II opioid drug., 1 applicatio... Start Date: 06/23/22 Status: Ordered meloxicam 15 mg oral tablet 1/2 TO 1 TABLET, By Mouth, Daily, PRN NEEDED FOR MODERATE PAIN, # 30 tablet, 5 Refills, Maintenance, 01/10/22 20:40:00 EDT, [facility] #[id number], 153, cm, 01/04/22 13:15:00 EDT, Height, 113.9, [...] capsule, 1 Refills, Maintenance, 07/26/22 14:24:00 EDT, [facility] #[id number], 153, cm, 06/17/22 10:53:00 EST, Height, 109, kg, 06/17/22 10:53:00 EST, Dry Weight Start Date: 07/26/22 Status: Ordered ondansetron 4 mg oral tablet 1 tablet, By Mouth, Every 8 hours, PRN NEEDED FOR NAUSEA OR VOMITING, # 30 tablet, 1 Refills, Maintenance, 06/14/22 10:29:00 EST, [facility] #[id number], 153, cm, 06/08/22 9:37:00 EST, Height, 109, kg, 04/25/22 15:54:00 EST, Dry Weight Start Date: 06/14/22 Status: Ordered oxybutynin 5 mg oral tablet 1 tablet, By Mouth, 3 times a day, # 270 tablet, 0 Refills, Maintenance, 07/05/22 8:13:00 EDT, [facility] #[id number], 153, cm, 06/17/22 10:53:00 EST, Height, 109, [...] 07/01/22 14:21:00 EDT, Route to Pharmacy Electronically, [facility] #[id number], Partial fill upon patient request if the... Start Date: 07/01/22 Status: Ordered triamcinolone 0.1% topical cream 1 application, Topically, 3 times a day, PRN arm rash, # 30 Gm, 1 Refills, Acute 06/08/23 9:53:00 EST, 06/08/22 9:53:00 EST, Cream, [facility] #[id number], Partial fill upon patient request if the [...] Primary Care Member Role: PCP Address: Address: [address] [place] [address] Adult & [place] [address]- Care Team Related Persons Name: RODOLFO SHEIKH Address: home [address] [facility] [address] [place] [id number] Name: CHIARA TEE Address: home [address] [facility] [address] [place] [address]
--- OUTSIDE RECORDS SUMMARY | 2022-12-30 08:25 | XMS_ITS | Continuity of Care Document ---
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 Name Role Phone Kaiden Chirinos MD Primary Care Physician [phone] Encounter [facility] Date(s): 05/31/21 - 05/31/[address] [address]- Discharge Disposition: A-D/C Home Attending Physician: Clint Ruff MD Admitting Physician: Clint Ruff MD Referring Physician: Not on Staff, Referring MD [...] WHEEZING, # 8.5 each, 0 Refills, [id number], 20, INHALE 2 PUFFS BY MOUTH EVERY 4 HOURS NEEDED FOR WHEEZING, 160, cm, 03/30/21 10:47:00 EST, Height, 104.6, kg, 12/04/20 10:52:00 EDT, Dry Weight Start Date: 04/28/21 Status: Ordered amitriptyline 10 mg oral tablet 10 mg, 1, tablet, By Mouth, Daily at bedtime, # 90 tablet, Refills 1, Tot. Refills 1, Maintenance, 12/24/20 16:08:00 EDT, Route to Pharmacy Electronically, [facility]/pharmacy #[id number], Partial fill upon patient request if the prescription is for a schedule II... Start Date: 12/24/20 Status: Ordered baclofen 10 mg oral tablet 10 mg, 1, tablet, By Mouth, 3 times a day, PRN, # 30 tablet, Refills 0, Tot. Refills 0, Maintenance, Spasm, 01/31/19 21:47:23 EDT, Route to Pharmacy Electronically, [id number], [facility]/pharmacy #[id number] Start Date: 01/31/19 Stop Date: 02/14/19 Status: Ordered benzonatate 100 mg oral capsule 2 capsule, By Mouth, 3 times a day, PRN NEEDED FOR COUGH, # 30 capsule, 1 Refills, Physician Stop 03/19/22 17:38:00 EST, 02/19/22 16:55:00 EDT, [facility]/pharmacy #[id number], 160, cm, 12/04/20 10:52:00 EDT, Height, 104.6, kg, 12/04/20 10:52:00 EDT, Dry Weight Start Date: 02/19/22 Stop Date: 03/19/22 Status: Ordered benzonatate 100 mg oral capsule 2 capsule, By Mouth, 3 times a day, PRN NEEDED FOR COUGH, # 30 capsule, 1 Refills, Physician Stop 02/19/22 16:55:00 EDT, 02/19/21 16:54:00 EDT, [facility]/pharmacy #[id number], 160, cm, 12/04/20 10:52:00 EDT, [...] 08/18/21 10:23:00 EDT, 07/12/21 15:21:00 EDT, Tablet, [facility]/pharmacy #[id number], Partial fill upon patient request if the prescription is for a schedule II opioid . Start Date: 07/12/21 Stop Date: 08/18/21 Status: Ordered Dilaudid 2 mg oral tablet 0.5 tablet = 1 mg, By Mouth, Every 6 hours, PRN Pain , Severe, # 14 tablet, 0 Refills, Acute 07/12/21 15:21:00 EDT, 05/14/21 15:19:00 EST, Tablet, [facility]/pharmacy #[id number], Partial fill upon patient request if the prescription is for a schedule II opioid Start Date: 05/14/21 Stop Date: 07/12/21 Status: Ordered Famotidine 0 Refills, Maintenance, 04/07/19 16:11:00 EST Start Date: 04/07/19 Status: Ordered gabapentin 800 mg oral tablet 1 tablet, By Mouth, 4 times a day, # 360 tablet, 1 Refills, [facility], 160, cm, 03/30/21 10:47:00 EST, Height, 104.6, [...] Refills, Maintenance, 05/14/21 15:23:00 EST, Tablet, [facility]/pharmacy #[id number], Partial fill upon patient request if the prescription is for a schedule II opioid drug., 160, c... Start Date: 05/14/21 Status: Ordered meloxicam 15 mg oral tablet 1/2 TO 1 TABLET, By Mouth, Daily, PRN NEEDED FOR MODERATE PAIN, # 30 tablet, 1 Refills, [facility], 160, cm, 12/04/20 10:52:00 EDT, Height, 104.6, kg, 12/04/20 10:52:00 EDT, Dry Weight Start Date: 01/22/21 Status: Ordered omeprazole 20 mg oral enteric coated capsule 1 capsule, By Mouth, Daily, # 90 capsule, 1 Refills, [facility], 160, cm, 03/30/21 10:47:00 EST, Height, 104.6, [...] episode, moderate(Confirmed) Active Adult night terrors(Confirmed) Active Results Radiology Reports * Exam Date Time Procedure Performing Provider Status 05/31/21 6:00 PM Hand Min 3 Views Right Yazan , Edel; Auth (Verified) Notes: (Hand Min 3 Views Right) Reason For Exam: Other: RESULT: Hand Min 3 Views Right Hand Min 3 Views Right, 3 views HX OF PRESENT ILLNESS: fell out of the shower off the shower chair, struck head to toilet, son states LOC, found on floor by family. Pt legally blind. Pt sts increased falls over last 3 weeks.; Reason: Clinical Question(s): Fracture COMPARISON: None. FINDINGS: No fractures or bone lesions. No arthritic changes. Normal soft tissues. IMPRESSION: No evidence of acute osseous abnormality. WSN: [id number] Ordering Physician: Clint Ruff Dictated By: Bakari Nieto MD Dictated Date/Time: 05/31/21 6:07 pm Reviewed By: Bakari Nieto MD Signed By: Bakari Nieto MD Signed Date/Time: 05/31/21 6:07 pm Transcribed By: PIERO Transcribed Date/Time: 05/31/21 6:06 pm * Exam Date Time Procedure Performing Provider Status 05/31/21 6:00 PM Ankle Min 3 Views Left Yazan , Edel; Auth (Verified) Notes: (Ankle Min 3 Views Left) Reason For Exam: Other: RESULT: Ankle Min 3 Views Left Ankle Min 3 Views Left HX OF PRESENT ILLNESS: fell out of the shower off the shower chair, struck head to toilet, son states LOC, found on floor by family. Pt legally blind. Pt sts increased falls over last 3 weeks.; Reason: Clinical Question(s): Fracture COMPARISON: None. FINDINGS: No evidence of acute or healing fracture or bone lesion. Small plantar calcaneal spur. Intact ankle mortise and talar dome. No arthritic changes. Normal soft tissues. IMPRESSION: No evidence of acute osseous abnormality. WSN: [id number] Ordering Physician: Clint Ruff Dictated By: Bakari Nieto MD Dictated Date/Time: 05/31/21 6:06 pm Reviewed By: Bakari Nieto MD Signed By: Bakari Nieto MD Signed Date/Time: 05/31/21 6:06 pm Transcribed By: PIERO Transcribed Date/Time: 05/31/21 6:05 pm * Exam Date Time Procedure Performing Provider Status 05/31/21 6:00 PM Knee 3 Views Left Edel Hand; Auth (Verified) Notes: (Knee 3 Views Left) Reason For Exam: Other: RESULT: Knee 3 Views Left Knee 3 Views Left HX OF PRESENT ILLNESS: fell out of the shower off the shower chair, struck head to toilet, son states LOC, found on floor by family. Pt legally blind. Pt sts increased falls over last 3 weeks.; Reason: Clinical Question(s): Fracture COMPARISON: 11/23/2020 FINDINGS: There is no evidence of acute or healing fracture, dislocation or bone lesion. Mild medial compartment joint space narrowing. Small osteophytes, most notably in the medial compartment. Small joint effusion without convincing evidence of lipohemarthrosis. IMPRESSION: Mild degenerative change. No evidence of acute osseous abnormality. WSN: [id number] Ordering Physician: Clint Ruff Dictated By: Bakari Nieto MD Dictated Date/Time: 05/31/21 6:04 pm Reviewed By: Bakari Nieto MD Signed By: Bakari Nieto MD Signed Date/Time: 05/31/21 6:04 pm Transcribed By: PIERO Transcribed Date/Time: 05/31/21 6:04 pm * Exam Date Time Procedure Performing Provider Status 05/31/21 6:01 PM XR Hip w/Pelvis 2-3 View Left Valentino Hand; Auth (Verified) Notes: (XR Hip w/Pelvis 2-3 View Left) Reason For Exam: Other: RESULT: XR Hip w/Pelvis 2-3 View Left XR Hip w/Pelvis 2-3 View Left HX OF PRESENT ILLNESS: fell out of the shower off the shower chair, struck head to toilet, son states LOC, found on floor by family. Pt legally blind. Pt sts increased falls over last 3 weeks.; Reason: Other:; Clinical Question(s): Fracture COMPARISON: None. FINDINGS: There is no fracture or dislocation. Normal hips and sacroiliac joints. Normal soft tissues. IMPRESSION: No evidence of acute osseous abnormality. WSN: [id number] Ordering Physician: Clint Ruff Dictated By: Bakari Nieto MD Dictated Date/Time: 05/31/21 6:03 pm Reviewed By: Bakari Nieto MD Signed By: Bakari Nieto MD Signed Date/Time: 05/31/21 6:03 pm Transcribed By: PIERO Transcribed Date/Time: 05/31/21 6:03 pm * Exam Date Time Procedure Performing Provider Status 05/31/21 6:00 PM Thoracic Spine 3 Views Edel Hand; Auth (Verified) Notes: (Thoracic Spine 3 Views) Reason For Exam: Trauma RESULT: Thoracic Spine 3 Views Thoracic Spine 3 Views HX OF PRESENT ILLNESS: fell out of the shower off the shower chair, struck head to toilet, son states LOC, found on floor by family. Pt legally blind. Pt sts increased falls over last 3 weeks.; Reason: Trauma; Clinical Question(s): Fracture Dislocation COMPARISON: Chest 04/07/2019. FINDINGS: No bone lesions or fractures. Normal disc configuration. Status post ACDF. There are surgical clips in the right upper quadrant. IMPRESSION: No evidence of acute osseous abnormality. WSN: [id number] Ordering Physician: Clint Ruff Dictated By: Bakari Nieto MD Dictated Date/Time: 05/31/21 6:03 pm Reviewed By: Bakari Nieto MD Signed By: Bakari Nieto MD Signed Date/Time: 05/31/21 6:03 pm Transcribed By: PIERO Transcribed Date/Time: 05/31/21 6:02 pm * Exam Date Time Procedure Performing Provider Status 05/31/21 6:00 PM Ribs W/ PA Chest Left Edel Hand; [facility] (Verified) Notes: (Ribs W/ PA Chest Left) Reason For Exam: Other: RESULT: Ribs W/ PA Chest Left Ribs W/ PA Chest Left HX OF PRESENT ILLNESS: fell out of the shower off the shower chair, struck head to toilet, son states LOC, Clinical Question(s): Fracture COMPARISON: Chest from 04/07/2019 FINDINGS: LINES AND TUBES: None. LUNGS AND PLEURA: The lungs are clear, and the pulmonary vascularity is normal. No effusion or pneumothorax. HEART, MEDIASTINUM AND FERNANDO: Normal. BONES: No fractures or bone lesions. Status post ACDF. SOFT TISSUES: There are surgical clips in the right upper quadrant. IMPRESSION: No evidence of acute abnormality. WSN: [id number] Ordering Physician: Clint Ruff Dictated By: Bakari Nieto MD Dictated Date/Time: 05/31/21 6:01 pm Reviewed By: Bakari Nieto MD Signed By: Bakari Nieto MD Signed Date/Time: 05/31/21 6:01 pm Transcribed By: PIERO Transcribed Date/Time: 05/31/21 6:00 pm Vital Signs Most recent to oldest [Reference Range]: 1 2 Height 153 cm (05/31/21 3:07 PM) Weight 105 kg (05/31/21 3:07 PM) Oxygen Saturation [94-100 %] 97 % (05/31/21 7:00 PM) 99 % (05/31/21 3:07 PM) Pulse Rate [55-90 bpm] 65 bpm (05/31/21 7:00 PM) 67 bpm (05/31/21 3:07 PM) Blood Pressure [90-138/55-84 mm Hg] 123/ 75mm Hg (05/31/21 7:00 PM) Respiratory Rate [16-30 br/min] 18 br/mi n (05/31/21 7:00 PM) 18 br/min (05/31/21 3:07 PM) Temperature [96.8-100.4 DegF] 97.9 DegF (05/31/21 7:00 PM) 97.8 DegF (05/31/21 3:07 PM) Mode of Delivery (Oxygen) Room air (05/31/21 7:00 PM) Room air (05/31/21 3:07 PM) Blood pressure sites Arm, left (05/31/21 7:00 PM) Temperature Route Temporal (05/31/21 7:00 PM) Temporal (05/31/21 3:07 PM) Dry Weight 105 kg (05/31/21 3:07 PM) Weight Obtained Via Patient/family state d (05/31/21 3:07 PM) Dry Weight Obtained Via Patient/family s tated (05/31/21 3:07 PM) Social History Social History Type Response Tobacco Other: 25 YRS-QUIT. Sex
--- OUTSIDE RECORDS SUMMARY | 2022-12-30 08:26 | XMS_ITS | Continuity of Care Document ---
Author Name Unknown Organization [facility] Address [address] [place] [address]- Care Team Providers Care Compensation/Benefits Specialist Name Role Phone Kaiden Chirinos MD Primary Care Physician [phone] Encounter [facility] Date(s): 12/09/20 - 01/08/21 [facility] [address] [place], [place] [address] Allergies, Adverse Reactions, Alerts Substance [...] 12/24/20 16:08:00 EDT, Route to Pharmacy Electronically, [facility]/pharmacy #[id number], Partial fill upon patient request if the prescription is for a schedule II... Start Date: 12/24/20 Status: Ordered baclofen 10 mg oral tablet 10 mg, 1, tablet, By Mouth, 3 times a day, PRN, # 30 tablet, Refills 0, Tot. Refills 0, Maintenance, Spasm, 01/31/19 21:47:23 EDT, Route to Pharmacy Electronically, [id number], [facility]/pharmacy #[id number] [...]
--- OUTSIDE RECORDS SUMMARY | 2022-12-30 08:26 | XMS_ITS | Continuity of Care Document ---
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 Start Date: 09/22/20 Status: Ordered baclofen 10 mg oral tablet 10 mg, 1, tablet, By Mouth, 3 times a day, PRN, # 30 tablet, Refills 0, Tot. Refills 0, Maintenance, Spasm, 01/31/19 21:47:23 EDT, Route to Pharmacy Electronically, [id number], [facility]/pharmacy #[id number] Start Date: 01/31/19 Stop Date: 02/14/19 Status: Ordered clonazePAM 0.5 mg oral tablet 1 tablet = 0.5 mg, By Mouth, 4 times a day, PRN Anxiety, Patient on controlled substance contract. Please do NOT fill until 09/23/2020, # 112 tablet, 0 Refills, Maintenance, 11/18/20 21:02:00 EDT, Tablet, [facility]/pharmacy #[id number], Partial fill upon patient... Start Date: 11/18/20 Status: Ordered Famotidine 0 Refills, Maintenance, 04/07/19 16:11:00 EST Start Date: 04/07/19 Status: Ordered gabapentin 800 mg oral tablet 1 tablet = 800 mg, By Mouth, 4 times a day, # 360 tablet, 1 Refills, Maintenance, 11/09/20 23:47:00EDT, Tablet, [facility]/pharmacy #[id number], Partial fill upon [...] 1 Refills, Maintenance, 11/05/20 11:43:00 EDT, Tablet, [facility]/pharmacy #[id number], Partial fill upon [...] Refills, Maintenance, 11/27/20 17:20:00 EDT, [facility], 160, cm, 10/30/20 8:28:00 EDT, Height, 105.5, kg, 10/30/20 8:28:00 EDT, Dry Weight Start Date: 11/27/20 Status: Ordered ProAir HFA 90 mcg/inh inhalation aerosol 2 puffs, Inhalation, Every 4 hours, PRN as needed for wheezing, # 8.5 Gm, 0 Refills, Maintenance, 11/16/20 8:39:00 EDT, Aerosol, [facility]/pharmacy #[id number], Partial fill upon [...] 1 Refills, Maintenance, 10/30/20 8:45:00 EDT, Tablet, [facility]/pharmacy #[id number], Partial fill upon patient reques... Start Date: 10/30/20 Status: Ordered traZODone 150 mg oral tablet 1 tablet = 150 mg, By Mouth, Daily at bedtime, dose increase, # 90 tablet, 1 Refills, Maintenance, 11/03/20 13:28:00 EDT, Tablet, [facility]/pharmacy #[id number], Partial fill upon [...]
--- OUTSIDE RECORDS SUMMARY | 2022-12-30 08:26 | XMS_ITS | Continuity of Care Document ---
Author Name Unknown Organization 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 [address] [place], [place] [address] Allergies, Adverse Reactions, Alerts [...] to Pharmacy Electronically, [facility]/pharmacy #[id number], Partial fill upon patient request if the prescription is for a schedule II... Start Date: 12/24/20 Status: Ordered baclofen 10 mg oral tablet 10 mg, 1, tablet, By Mouth, 3 times a day, PRN, # 30 tablet, Refills 0, Tot. Refills 0, Maintenance, Spasm, 01/31/19 21:47:23 EDT, Route to Pharmacy Electronically, [id number], [facility]/pharmacy #[id number] Start Date: [...] # 360 tablet, 1 Refills, [facility], 160, cm, 03/30/21 10:47:00 EST, Height, 104.6, [...] 1 Refills, Maintenance, 02/25/21 8:28:00 EST, Capsule, [facility]/pharmacy #[id number], [...] before breakfast, # 90 tablet, 0 Refills, [facility] [address], 160, cm, 03/30/21 10:47:00 EST, Height, 104.6, kg, 12/04/20 10:52:00 EDT, Dry Weight Start Date: 04/15/21 Status: Ordered meloxicam 15 mg oral tablet 1/2 TO 1 TABLET, By Mouth, Daily, PRN NEEDED FOR MODERATE PAIN, # 30 tablet, 1 Refills, [facility], 160, cm, 12/04/20 10:52:00 EDT, Height, 104.6, kg, 12/04/20 10:52:00 EDT, Dry Weight Start Date: 01/22/21 Status: Ordered omeprazole 20 mg oral enteric coated capsule 1 capsule, By Mouth, Daily, # 90 capsule, 1 Refills, [facility], 160, cm, 03/30/21 10:47:00 EST, Height, 104.6, kg, 12/04/20 10:52:00 EDT, Dry Weight Start Date: 03/31/21 Status: Ordered ondansetron 4 mg oral tablet See Instructions, TAKE 1 TABLET BY MOUTH EVERY 8 HOURS NEEDED FOR NAUSEA AND VOMITING, # 15 tablet, 1 Refills, Physician Stop 04/19/21 17:37:00 EST, 03/19/21 17:37:00 EST, [facility]/pharmacy #[id number], 160,cm, 12/04/20 10:52:00 EDT, Height, 104.6, [...] 0 Refills, Maintenance, 11/16/20 8:39:00 EDT, Aerosol, [facility]/pharmacy #[id number], Partial fill upon patient request if the prescription is for a schedule II opioid drug., 2 puffs Inhal... Start Date: 11/16/20 Status: Ordered Qvar Redihaler 40 mcg/inh inhalation aerosol = 40 mcg, Inhalation, 2 times a day, to replace flovent rinse mouth and throat after use, # 1 each,1 Refills, Maintenance, 03/30/21 20:35:00 EST, [facility]/pharmacy #[id number], Partial fill [...] 1 Refills, Maintenance, 04/06/21 12:26:00 EST, Tablet, [facility]/pharmacy #[id number], [...]
--- OUTSIDE RECORDS SUMMARY | 2022-12-30 08:26 | XMS_ITS | Continuity of Care Document ---
Author Name Unknown Organization [facility] Address [address] [place] [address]- Care Team Providers Care At Risk Specialist Name Role Phone Kaiden Chirinos MD Primary Care Physician [phone] Encounter [facility] Date(s): 10/29/22 - 10/29/[address] [address]- Discharge Disposition: A-D/C Home Attending Physician: Zach Alcantara MD Admitting Physician: Zach Alcantara MD Referring Physician: Not on Staff, Referring [...] 8.5 Gm,0 Refills, Maintenance, 12/22/21 10:40:00 EDT, [facility] #[id number], 2 puffs Inhalation Every 4 hours,PRN: NEEDED FOR WHEEZING/cough/shortness... Start Date: 12/22/21 Status: Ordered albuterol 0.083% inhalation solution 3 mL = 2.5 mg, Inhalation, Every 4 hours, PRN for wheezing/cough/shortness of breath, # 25 each, 0 Refills, Maintenance, 06/29/22 13:08:00 EDT, Solution, [facility] #[id number], Partial fill upon patient request if the prescription is for a sched... Start Date: 06/29/22 Status: Ordered [facility] Saline Mist 0.65% nasal spray 2 sprays, Nares, Both, 4 times a day, # 1 each, 0 Refills, Maintenance, 02/04/22 13:32:00 EDT, [facility] #[id number], Partial fill upon patient request if the [...] tablet, 0 Refills, Maintenance, 12/27/21 13:43:00 EDT, [facility] #[id number], 153, cm, 10/08/21 13:23:00 EDT, Height, 113.9, kg, 10/08/21 13:23:00EDT, Dry Weight Start Date: 12/27/21 Status: Ordered chlorhexidine 2% topical liquid See Instructions, 1 application to bilateral forearms twice weekly, # 120 mL, 3 Refills, Soft Stop,06/17/22 11:06:00 EST, Liquid, [facility] #[id number], Partial fill upon patient request if the prescription is for a schedule II opioid drug., 1... Start Date: 06/17/22 Status: Ordered chlorhexidine 4% topical soap See Instructions, apply topically twice weekly to skin on forearms, # 120 mL, 2 Refills, Soft Stop,06/17/22 16:03:00 EST, [facility] #[id number], Partial fill upon patient request if the [...] FOR PAIN., # 100 Gm, 1 Refills, [id number], 30, APPLY 1 GM TOPICALLY 4 TIMES A DAY FOR PAIN, 153, cm, 06/07/21 11:07:00 EST, Height, 105, kg, 05/31/21 15:15:00 EST, Dry Weight Start Date: 08/05/21 Status: Ordered Dilaudid 2 mg oral tablet 1 tablet = 2 mg, By Mouth, 2 times a day, PRN Pain , Severe, checked masspat, # 56 tablet, 0 Refills, Maintenance, 10/25/22 21:47:00 EDT, Tablet, [facility] #[id number], Partial fill upon patient request if the prescription is for a schedule II o... Start Date: 10/25/22 Status: Ordered Estrace Vaginal Cream 0.1 mg/g = 2 Gm, Vaginally, Daily at bedtime, 2g PV daily at bedtime x 2 weeks, then 1g PV 1-3x per week, # 42.5 Gm, 5 Refills, Maintenance, 11/09/21 11:17:00 EDT, [facility] #[id number], Partial fill upon patient request if the prescription is for a sche... Start Date: 11/09/21 Status: Ordered Estradiol Patch 0.0375 mg/24 hours twice weekly transdermal film, extended release See Instructions, APPLY 1 PATCH TOPICALLY TWICE WEEKLY DIRECTED, # 8 patch, 2 Refills, Maintenance, 09/22/22 21:55:00 EDT, [facility] #[id number], 28, APPLY 1 PATCH TOPICALLY TWICE WEEKLY DIRECTED, 153, cm, 06/17/22 10:53:00 EST, Height, 10... Start Date: 09/22/22 Status: Ordered fluconazole 150 mg oral tablet 1 tablet = 150 mg, By Mouth, Once, PRN vaginal yeast infection, # 1 tablet, 0 Refills, Soft Stop, 03/15/22 10:42:00 EST, Tablet, [facility] #[id number], Partial fill upon patient request if the prescription is for a schedule II opioid drug., 153,... Start Date: 03/15/22 Status: Ordered fluticasone 50 mcg/inh nasal spray See Instructions, SHAKE LIQUID AND USE 1 SPRAY IN EACH NOSTRIL TWICE DAILY, # 16 Gm, 1 Refills, Maintenance, 05/18/22 13:57:00 EST, [facility] #[id number], 30, SHAKE LIQUID AND USE 1 SPRAY IN EACH NOSTRIL TWICE DAILY, 153, cm, 04/25/22 16:23:00 E... Start Date: 05/18/22 Status: Ordered gabapentin 800 mg oral tablet 1 tablet, By Mouth, 4 times a day, # 360 tablet, 1 Refills, Maintenance, 10/25/22 21:47:00 EDT, [facility] #[id number], 153, cm, 06/17/22 10:53:00 EST, Height, 109, [...] capsule, 1 Refills, Maintenance, 07/18/22 9:45:00 EDT, [facility] #[id number], 153, cm, 06/17/22 10:53:00 EST, Height, 109, kg, 06/17/22 10:53:00 EST, Dry Weight Start Date: 07/18/22 Status: Ordered hydrOXYzine pamoate 50 mg oral capsule See Instructions, TAKE 1 CAPSULE BY MOUTH THREE TIMES DAILY NEEDED FOR ITCHING, # 90 capsule, 0 Refills, Maintenance, 10/19/22 8:55:00 EDT, [facility] #[id number], 153, cm, 06/17/22 10:53:00 EST, Height, 109, [...] 1 Refills, Maintenance, 04/28/22 13:51:00 EST, Tablet, [facility] #[id number], Partial fill upon patient request if the prescription is for a schedule II opioid drug., 153, cm... Start Date: 04/28/22 Status: Ordered lidocaine 4% topical cream 1 application, Topically, 3 times a day, PRN Pain , Mild, # 30 Gm, 1 Refills, Maintenance, 06/24/2315:24:00 EST, Cream, [facility] #[id number], Partial fill upon patient request if the prescription is for a schedule II opioid drug., 1 applicatio... Start Date: 06/23/22 Status: Ordered Macrobid macrocrystals-monohydrate 100 mg oral capsule 1 capsule = 100 mg, By Mouth, 2 times a day, for 7 days, # 14 capsule, 0 Refills, Acute 11/05/22 17:32:00 EDT, 10/29/22 17:32:00 EDT, Capsule, [facility] #[id number], Partial fill upon patient request if the prescription is for a schedule II opio... Start Date: 10/29/22 Stop Date: 11/05/22 Status: Ordered meloxicam 15 mg oral tablet 1/2 TO 1 TABLET, By Mouth, Daily, PRN NEEDED FOR MODERATE PAIN, # 30 tablet, 5 Refills, Maintenance, 01/10/22 20:40:00 EDT, [facility] #[id number], 153, cm, 01/04/22 13:15:00 EDT, Height, 113.9, [...] capsule, 1 Refills, Maintenance, 07/26/22 14:24:00 EDT, [facility] #[id number], 153, cm, 06/17/22 10:53:00 EST, Height, 109, kg, 06/17/22 10:53:00 EST, Dry Weight Start Date: 07/26/22 Status: Ordered ondansetron 4 mg oral tablet 1 tablet, By Mouth, Every 8 hours, PRN NEEDED FOR NAUSEA OR VOMITING, # 30 tablet, 1 Refills, Maintenance, 10/27/22 23:08:00 EDT, [facility] #[id number], 153, cm, 06/17/22 10:53:00 EST, Height, 109, kg, 06/17/22 10:53:00 EST, Dry Weight Start Date: 10/27/22 Status: Ordered oxybutynin 5 mg oral tablet 1 tablet, By Mouth, 3 times a day, # 270 tablet, 1 Refills, Maintenance, 10/04/22 20:44:00 EDT, [facility] #[id number], 153, cm, 06/17/22 10:53:00 EST, Height, 109, [...] 07/01/22 14:21:00 EDT, Route to Pharmacy Electronically, [facility] #[id number], Partial fill upon patient request if the... Start Date: 07/01/22 Status: Ordered triamcinolone 0.1% topical cream 1 application, Topically, 3 times a day, PRN arm rash, # 30 Gm, 1 Refills, Acute 06/08/23 9:53:00 EST, 06/08/22 9:53:00 EST, Cream, [facility] #[id number], Partial fill upon patient request if the [...] Confirmed Active Adult night terrors Confirmed Active Results Radiology Reports * Exam Date Time Procedure Performing Provider Status 10/29/22 1:[address] Ext Lower W/O Contrast Left Yazan , Edel; Auth (Verified) Notes: (CT Ext Lower W/O Contrast Left) Reason For Exam: fall, ? hip mass on UC XR;Trauma RESULT: CT Ext Lower W/O Contrast Left CT Ext Lower W/O Contrast Left Hx of Present Illness: Fell 3 weeks ago, injured left hip has been ambulatory but pain with ambulation; went to urgent care yesterday had x-ray, told ? mass on left hip; Reason: Trauma; fall, ? hip mass on UC XR; Clinical Question(s): Hip TECHNIQUE: Helical CT without contrast formatted in 3 planes. Weight-based protocol using automatictube modulation was used to optimize exposure parameters. CTDIvol Body: 31.59 mGy, DLP Body: 811 mGy*cm. COMPARISONS: Radiographs of 05/31/2021 FINDINGS: Bones and joints: No fracture or dislocation is present. No erosions, productive changes or abnormal calcifications are noted. Bone mineralization is normal. No focal lytic or blastic lesion. The left SI joint is intact. Soft Tissues: Normal. IMPRESSION: Normal examination. WSN: [id number] Ordering Physician: Sai Almanza Dictated By: Konrad Worrell MD Dictated Date/Time: 10/29/22 1:35 pm Reviewed By: Konrad Worrell MD Signed By: Konrad Worrell MD Signed Date/Time: 10/29/22 1:35 pm Transcribed By: PIERO Transcribed Date/Time: 10/29/22 1:28 pm Vital Signs Most recent to oldest [Reference Range]: 1 2 3 Height 154 cm (10/29/22 2:42 PM) 154 cm (10/29/22 12:53 PM) Weight 109 kg (10/29/22 12:53 PM) Oxygen Saturation [94-100 %] 97 % (10/29/22 4:45 PM) 97 % (10/29/22 2:42 PM) 97 % (10/29/22 12:53 PM) Pulse Rate [55-90 bpm] 69 bpm (10/29/22 4:45 PM) 73 bpm (10/29/22 2:42 PM) 90 bpm (10/29/22 12:53 PM) Blood Pressure [90-138/55-84 mm Hg] 142/100mm Hg *H* (10/29/22 4:45 PM) 133/80mm Hg (10/29/22 2:42 PM) 136/110mm Hg (10/29/22 12:53 PM) Respiratory Rate [16-30 br/min] 18 br/min (10/29/22 4:45 PM) 18 br/min (10/29/22 2:42 PM) 20 br/min (10/29/22 12:53 PM) Temperature [96.8-100.4 DegF] 98 DegF (10/29/22 12:53 PM) Mode of Delivery (Oxygen) Room air (10/29/22 4:45 PM) Room air (10/29/22 2:42 PM) Room air (10/29/22 12:53 PM) Blood pressure sites Arm, right (10/29/22 4:45 PM) Arm, left (10/29/22 2:42 PM) Arm, left (10/29/22 12:53 PM) Temperature Route Temporal (10/29/22 12:53 PM) Dry Weight 109 kg (10/29/22 12:53 PM) Weight Obtained Via Standing scale (10/29/22 12:53 PM) Dry Weight Obtained Via Standing scale (10/29/22 12:53 PM) Social History Social History Type Response Smoking Status Former smoker, quit more than 30 days ago;Never entered on: 11/09/21 Sex Note * Quinton CARDENAS, Zach Cantor: PERFORM Event Display: Patient Education Leaflets Authored Date: [id number] Soft Tissue Bruise (Contusion) ?? [id number] Soft Tissue Bruise (Contusion) You have a bruise (contusion). There is swelling and some bleeding under the skin. This injury??generally??takes a few days to a few weeks to heal. During that time, the bruise will typically change in color from??reddish, to purplish- blue, to greenish-yellow, then to yellowish-brown. Home care ??? Elevate the injured area to reduce pain and swelling.??As much as possible, sit or lie down with the injured area raised about the level of your heart.??This is especially important during the first 48 hours. ??? Ice the injured area to help reduce pain and swelling.??Wrap an ice packin a thin towel. Apply to the bruised area for 20 minutes every 1 to 2 hours the first day. Continue this 3 to 4 times a day until the pain and swelling goes away. You can make an ice pack by placingice cubes in a plastic bag, or by using a frozen bag of vegetables. ??? Unless another medicine wasprescribed, you can take acetaminophen, ibuprofen, or naproxen??to control pain. Talk with your [facility] provider before using these medicines if you have chronic liver or kidney disease or ever had a stomach ulcer or digestive bleeding. ?? Follow-up care Follow up with your healthcare provider, or as advised. Call if you are not better in 1 to 2 weeks. ?? When to seek medical advice?? Call your healthcare provider right away if any of the following occur: ??? Increased pain or swelling ??? Bruise is on an arm or leg, and arm or leg becomes cold, blue, numb, or tingly ??? Signs of infection:??Warmth, drainage, or increased redness or pain around the contusion ??? Inability to move the injured area or body part? Bruise is near your eye, and you have problems with your eyesight or eye? Frequent bruising for unknown reasons ?? Last Reviewed Date: 2021 ?? The [employer]. All rights reserved. This information is not intended as a substitute for professional medical care. Always follow your healthcare professional's instructions. ?? Patient Care team information Care Team Personnel Name: Kaiden Chirinos MD Position: [facility] Physician - Primary Care Member Role: PCP Address: Address: [address] [place] [address] Adult & Pediatric Medicine [address] Name: Ruthann Patton RN Position: [facility] ED RN W/OE and Tasks Member Role: Patient Care Provider Name: Zach Alcantara MD Position: [facility] ED Medicine MD Member Role: Admitting Physician Address: Address: [address] [place] [address] Emergency Medicine [place], [place] [address] Name: Charlene Tucker Position: [facility] ED TA [facility] Member Role: ED Associate Care Team Related Persons Name: RODOLFO SHEIKH Address: home [address] [facility] [address] [place] [id number] Name: CHIARA TEE Address: home [address] [place] [address] [place] [address]
--- OUTSIDE RECORDS SUMMARY | 2022-12-30 08:26 | XMS_ITS | Continuity of Care Document ---
Author Name Unknown Organization [facility] Address [address] [place] [address]- Care Team Providers Care Sustainability Project Coordinator Name Role Phone Kaiden Chirinos MD Primary Care Physician [phone] Encounter [facility] [id number] Date(s): 05/18/21 - 05/25/21 [facility] [address] [place] [address]- Encounter Diagnosis Bilateral primary osteoarthritis of knee(Discharge Diagnosis) - 05/18/21 Anxiety(Discharge Diagnosis) - 05/18/21 Reduced libido(Discharge Diagnosis) - 05/18/21 Back pain(Discharge Diagnosis) - 05/18/21 Attending Physician: Kaiden Chirinos MD Allergies, Adverse [...] # 8.5 each, 0 Refills, [id number], 20, INHALE 2 PUFFS BY MOUTH EVERY 4 HOURS NEEDED FOR WHEEZING, 160, cm, 03/30/21 10:47:00 EST, Height, 104.6, kg, 12/04/20 10:52:00 EDT, Dry Weight Start Date: 04/28/21 Status: Ordered amitriptyline 10 mg oral tablet 10 mg, 1, tablet, By Mouth, Daily at bedtime, # 90 tablet, Refills 1, Tot. Refills 1, Maintenance, 12/24/20 16:08:00 EDT, Route to Pharmacy Electronically, [facility]/pharmacy #[id number], Partial fill upon patient request if the prescription is for a schedule II... Start Date: 12/24/20 Status: Ordered baclofen 10 mg oral tablet 10 mg, 1, tablet, By Mouth, 3 times a day, PRN, # 30 tablet, Refills 0, Tot. Refills 0, Maintenance, Spasm, 01/31/19 21:47:23 EDT, Route to Pharmacy Electronically, [id number], [facility]/pharmacy #[id number] Start Date: 01/31/19 Stop [...] Stop 02/19/22 16:55:00 EDT, 02/19/21 16:54:00 EDT, [facility]/pharmacy #[id number], [...] 08/18/21 10:23:00 EDT, 07/12/21 15:21:00 EDT, Tablet, [facility]/pharmacy #[id number], Partial fill upon patient request if the prescription is for a schedule II opioid . Start Date: 07/12/21 Stop Date: 08/18/21 Status: Ordered Dilaudid 2 mg oral tablet 0.5 tablet = 1 mg, By Mouth, Every 6 hours, PRN Pain , Severe, # 14 tablet, 0 Refills, Acute 07/12/21 15:21:00 EDT, 05/14/21 15:19:00 EST, Tablet, [facility]/pharmacy #[id number], Partial fill upon patient request if the prescription is for a schedule II opioid . Start Date: 05/14/21 Stop Date: 07/12/21 Status: Ordered Famotidine 0 Refills, Maintenance, 04/07/19 16:11:00 EST Start Date: 04/07/19 Status: Ordered gabapentin 800 mg oral tablet 1 tablet, By Mouth, 4 times a day, # 360 tablet, 1 Refills, [facility] [id number], 160, cm, 03/30/21 10:47:00 EST, Height, 104.6, [...] 1 Refills, Maintenance, 02/25/21 8:28:00 EST, Capsule, [facility]/pharmacy #[id number], Partial fill upon patient [...] 1 Refills, Maintenance, 05/14/21 15:23:00 EST, Tablet, [facility]/pharmacy #[id number], Partial fill upon patient [...] 05/26/21 12:01:00 EST, 05/21/21 12:01:00 EST, Capsule, [id number], Partial fill upon patient request if the prescriptio... Start Date: 05/21/21 Stop Date: 05/26/21 Status: Ordered meloxicam 15 mg oral tablet 1/2 TO 1 TABLET, By Mouth, Daily, PRN NEEDED FOR MODERATE PAIN, # 30 tablet, 1 Refills, [id number], 160, cm, 12/04/20 10:52:00 EDT, Height, 104.6, kg, 12/04/20 10:52:00 EDT, Dry Weight Start Date: 01/22/21 Status: Ordered omeprazole 20 mg oral enteric coated capsule 1 capsule, By Mouth, Daily, # 90 capsule, 1 Refills, [facility], 160, cm, 03/30/21 10:47:00 EST, Height, 104.6, kg, 12/04/20 10:52:00 EDT, Dry Weight Start Date: 03/31/21 Status: Ordered ondansetron 4 mg oral tablet See Instructions, TAKE 1 TABLET BY MOUTH EVERY 8 HOURS NEEDED FOR NAUSEA AND VOMITING, # 15 tablet, 1 Refills, Physician Stop 07/12/21 15:23:00 EDT, 05/14/21 15:22:00 EST, [facility]/pharmacy #[id number], 160,cm, 03/30/21 10:47:00 EST, [...] 1 each,1 Refills, Maintenance, 03/30/21 20:35:00 EST, [facility]/pharmacy #[id number], Partial fill upon patient [...] Refills, Maintenance, 10/30/20 8:45:00 EDT, Tablet, [facility]/pharmacy #[id number], Partial fill upon patient reques... Start Date: 10/30/20 Status: Ordered traZODone 150 mg oral tablet 1.5 tablet = 225 mg, By Mouth, Daily at bedtime, dose increase, # 135 tablet, 1 Refills, Maintenance, 04/06/21 12:26:00 EST, Tablet, [facility]/pharmacy #[id number], Partial fill upon patient [...] Bilateral primary osteoarthritis of knee Discharge Diagnosis 05/18/21 Anxiety Discharge Diagnosis 05/18/21 Reduced libido Discharge Diagnosis 05/18/21 Back pain Discharge Diagnosis 05/18/21 Social History Social History Type Response Tobacco Other: 25 YRS-QUIT. Sex
--- OUTSIDE RECORDS SUMMARY | 2022-12-30 08:26 | XMS_ITS | Continuity of Care Document ---
Author Name Unknown Organization [facility] Address [address] [place] [id number]- Care Team Providers Care Finish Molder Name Role Phone Candis CARDENAS, Kaiden Villalta Primary Care Physician Encounter [facility] Date(s): 09/02/21 - 10/15/[address] [address]- Attending Physician: Cecilia Joshi CNM Admitting Physician: Cecilia Joshi CNM Referring Physician: Cecilia Joshi CNM Allergies, Adverse [...] 8.5 Gm,0 Refills, Maintenance, 09/28/21 16:57:00 EDT, [facility] #[id number], 2 puffs Inhalation Every 4 hours,PRN: NEEDED FOR WHEEZING/cough/shortness... Start Date: 09/28/21 Status: Ordered albuterol 0.083% inhalation solution 3 mL = 2.5 mg, Inhalation, Every 4 hours, PRN for wheezing/cough/shortness of breath, # 25 each, 0 Refills, Maintenance, 10/14/21 22:10:00 EDT, Solution, [facility] #[id number], Partial fill upon patient request if the prescription is for a sched... Start Date: 10/14/21 Status: Ordered benzonatate 100 mg oral capsule 2 capsule, By Mouth, 3 times a day, PRN NEEDED FOR COUGH, # 30 capsule, 1 Refills, Physician Stop 03/19/22 17:38:00 EST, 02/19/22 16:55:00 EDT, [facility]/pharmacy #[id number], 160, cm, 12/04/20 10:52:00 EDT, Height, 104.6, kg, 12/04/20 10:52:00 EDT, Dry Weight Start Date: 02/19/22 Stop Date: 03/19/22 Status: Ordered benzonatate 100 mg oral capsule 2 capsule, By Mouth, 3 times a day, PRN NEEDED FOR COUGH, # 30 capsule, 1 Refills, Maintenance, 09/29/21 15:56:00 EDT, [facility] #[id number], 153, cm, 08/10/21 11:19:00 EDT, Height, 105, [...] FOR PAIN., # 100 Gm, 1 Refills, [facility], 30, APPLY 1 GM TOPICALLY 4 TIMES A DAY FOR PAIN, 153, cm, 06/07/21 11:07:00 EST, Height, 105, kg, 05/31/21 15:15:00 EST, Dry Weight Start Date: 08/05/21 Status: Ordered Dilaudid 2 mg oral tablet 1 tablet = 2 mg, By Mouth, 2 times a day, PRN Pain , Severe, checked masspat, # 28 tablet, 0 Refills, Maintenance, 10/08/21 13:52:00 EDT, Tablet, [facility] #[id number], Partial fill upon patient request if the prescription is for a schedule II o... Start Date: 10/08/21 Status: Ordered Famotidine 0 Refills, Maintenance, 04/07/19 16:11:00 EST Start Date: 04/07/19 Status: Ordered fluconazole 150 mg oral tablet 1 tablet = 150 mg, By Mouth, Once, # 1 tablet, 0 Refills, Soft Stop, 09/21/21 11:15:00 EDT, Tablet,[facility] #[id number], Partial fill upon patient request if the prescription is for a schedule II opioid drug., 153, cm, 08/10/21 11:19:00 EDT, H... Start Date: 09/21/21 Status: Ordered gabapentin 800 mg oral tablet 1 tablet, By Mouth, 4 times a day, # 360 tablet, 1 Refills, [facility], 160, cm, 03/30/21 10:47:00 EST, Height, 104.6, [...] capsule, 1 Refills, Maintenance, 09/28/21 16:58:00 EDT, [facility] #[id number], 153, cm, 08/10/21 11:19:00 EDT, Height, 105, [...] 1 Refills, Maintenance, 07/30/21 12:25:00 EDT, Tablet, [facility] #[id number], Partial fill upon patient request if the prescription is for a schedule II opioid drug... Start Date: 07/30/21 Status: Ordered lidocaine 2% topical gel with applicator 5 mL = 0.1 Gm, Topically, 2 times a day, PRN Pain , Moderate, # 60 mL, 2 Refills, Soft Stop, 09/24/21 16:43:00 EDT, Gel, [facility] #[id number], Partial fill upon patient request if the [...] 90 capsule, 0 Refills, 09/27/21 14:31:00 EDT, [facility] #[id number], 153, cm, 08/10/21 11:19:00 EDT, Height, 105, kg, 05/31/21 15:15:00 EST, Dry Weight Start Date: 09/27/21 Status: Ordered ondansetron 4 mg oral tablet 1 tablet = 4 mg, By Mouth, Every 8 hours, PRN Nausea & Vomiting, # 30 tablet, 1 Refills, Maintenance, 09/28/21 16:56:00 EDT, [facility] #[id number], 153, cm, 08/10/21 11:19:00 EDT, Height, 105, kg, 05/31/21 15:15:00 EST, Dry Weight Start Date: 09/28/21 Status: Ordered oxybutynin 5 mg oral tablet 1 tablet, By Mouth, 3 times a day, # 270 tablet, 1 Refills, [facility], 153, cm, 08/10/21 11:19:00 EDT, Height, 105, [...] 1 Refills, Maintenance, 07/30/21 12:22:00 EDT, Tablet, [facility] #[id number], Partial fill upon patient request if the [...]
--- OUTSIDE RECORDS SUMMARY | 2022-12-30 08:26 | XMS_ITS | Continuity of Care Document ---
Author Name Unknown Organization [facility] Address [address] [place] [address]- Care Team Providers Care Rn Faculty Name Role Phone Candis CARDENAS, Kaiden Villalta Primary Care Physician [phone] Encounter [facility] [place] Date(s): 11/25/21 - 12/25/21 [facility] [address] [place], [place] [address] Allergies, Adverse Reactions, Alerts Substance [...] 8.5 Gm,0 Refills, Maintenance, 12/22/21 10:40:00 EDT, [facility] #[id number], 2 puffs Inhalation Every 4 hours,PRN: NEEDED FOR WHEEZING/cough/shortness... Start Date: 12/22/21 Status: Ordered albuterol 0.083% inhalation solution 3 mL = 2.5 mg, Inhalation, Every 4 hours, PRN for wheezing/cough/shortness of breath, # 25 each, 0 Refills, Maintenance, 10/14/21 22:10:00 EDT, Solution, [facility] #[id number], Partial fill upon patient request if the prescription is for a sched... Start Date: 10/14/21 Status: Ordered benzonatate 100 mg oral capsule 2 capsule, By Mouth, 3 times a day, PRN NEEDED FOR COUGH, # 30 capsule, 1 Refills, Physician Stop 11/10/22 14:46:00 EDT, 03/19/22 17:38:00 EST, [facility] #[id number], 153, cm, 10/08/21 13:23:00 EDT, Height, 113.9, kg, 10/08/21 13:23:00 EDT, D... Start Date: 03/19/22 Stop Date: 11/10/22 Status: Ordered benzonatate 100 mg oral capsule 2 capsule, By Mouth, 3 times a day, PRN NEEDED FOR COUGH, # 30 capsule, 1 Refills, Physician Stop 12/10/22 15:43:00 EDT, 11/10/22 14:46:00 EDT, [facility] #[id number], 153, cm, 10/08/21 13:23:00 EDT, Height, 113.9, [...] 0 Refills, Maintenance, 11/18/20 21:02:00 EDT, Tablet, [facility]/pharmacy #[id number], Partial fill upon patient... Start Date: 11/18/20 Status: Ordered diclofenac 1% topical gel = 1 Gm, Topically, 4 times a day, FOR PAIN., # 100 Gm, 1 Refills, [id number], 30, APPLY 1 GM TOPICALLY 4 TIMES A DAY FOR PAIN, 153, cm, 06/07/21 11:07:00 EST, Height, 105, kg, 05/31/21 15:15:00 EST, Dry Weight Start Date: 08/05/21 Status: Ordered Dilaudid 2 mg oral tablet 1 tablet = 2 mg, By Mouth, 2 times a day, PRN Pain , Severe, checked masspat, # 28 tablet, 0 Refills, Maintenance, 12/22/21 10:40:00 EDT, Tablet, [facility] #[id number], Partial fill upon patient request if the prescription is for a schedule II o... Start Date: 12/22/21 Status: Ordered Estrace Vaginal Cream 0.1 mg/g = 2 Gm, Vaginally, Daily at bedtime, 2g PV daily at bedtime x 2 weeks, then 1g PV 1-3x per week, # 42.5 Gm, 5 Refills, Maintenance, 11/09/21 11:17:00 EDT, [facility] #[id number], Partial fill upon patient request if the prescription is for a sche... Start Date: 11/09/21 Status: Ordered estradiol 0.0375 mg/24 hours twice weekly transdermal film, extended release See Instructions, 1 patch Topically, change patch twice a week, # 1 pack/packet, 1 Refills, Maintenance, 12/07/21 10:42:00 EDT, [facility] #[id number], Partial fill upon patient request if the prescription is for a schedule II opioid drug., 153,... Start Date: 12/07/21 Status: Ordered gabapentin 800 mg oral tablet See Instructions, TAKE 1 TABLET BY MOUTH FOUR TIMES DAILY, # 360 tablet, 0 Refills, [facility] #[id number], 153, cm, 10/08/21 13:23:00 EDT, Height, 113.9, [...] capsule, 1 Refills, Maintenance, 12/08/21 10:10:00 EDT, [facility] #[id number], 153, cm, 10/08/21 13:23:00 EDT, Height, 113.9,kg, [...] 1 Refills, Maintenance, 07/30/21 12:25:00 EDT, Tablet, [facility] #[id number], Partial fill upon patient request if the prescription is for a schedule II opioid drug... Start Date: 07/30/21 Status: Ordered levothyroxine 0.1 mg oral tablet 1 tablet = 100 mcg, By Mouth, Daily, dose increase, # 90 tablet, 0 Refills, Maintenance, 11/01/21 16:08:00 EDT, [facility] #[id number], Please discontinue 88ug, 153, cm, 10/08/21 13:23:00 [...] 1 Refills, Maintenance, 11/30/21 15:44:00 EDT, Tablet, [facility] #[id number], [place]... Start Date: 11/30/21 Status: Ordered lidocaine 2% topical gel with applicator 5 mL = 0.1 Gm, Topically, 2 times a day, PRN Pain , Moderate, # 60 mL, 2 Refills, Soft Stop, 09/24/21 16:43:00 EDT, Gel, [facility] #[id number], Partial fill upon patient request if the prescription is for a schedule II opioid drug., 153, cm, ... Start Date: 09/24/21 Status: Ordered meloxicam 15 mg oral tablet 1/2 TO 1 TABLET, By Mouth, Daily, PRN NEEDED FOR MODERATE PAIN, # 30 tablet, 1 Refills, 229:04:00 EDT, [facility] #[id number], 153, cm, 10/08/21 13:23:00 EDT, Height, 113.9, [...] 90 capsule, 0 Refills, 09/27/21 14:31:00 EDT, [facility] #[id number], 153, cm, 08/10/21 11:19:00 EDT, Height, 105, kg, 05/31/21 15:15:00 EST, Dry Weight Start Date: 09/27/21 Status: Ordered ondansetron 4 mg oral tablet 1 tablet = 4 mg, By Mouth, Every 8 hours, PRN Nausea & Vomiting, # 30 tablet, 1 Refills, Maintenance, 11/10/21 14:47:00 [facility], [id number], 153, cm, 10/08/21 13:23:00 EDT, Height, 113.9, kg, 10/08/21 13:23:00 EDT, Dry Weight Start Date: 11/10/21 Status: Ordered oxybutynin 5 mg oral tablet 1 tablet, By Mouth, 3 times a day, # 270 tablet, 1 Refills, [facility] [id number], 153, cm, 08/10/21 11:19:00 EDT, Height, 105, [...] Personnel Name: Candis CARDENAS, Kaiden Villalta Address: [address] [place] [address] [facility] [address]
--- OUTSIDE RECORDS SUMMARY | 2022-12-30 08:26 | XMS_ITS | Continuity of Care Document ---
Author Name Unknown Organization [facility] Address [address] [place] [address]- Care Team Providers Care Meter Maker Name Role Phone Kaiden Chirinos MD Primary Care Physician Encounter [facility] [place] Date(s): 05/21/21 - 06/20/21 [facility] [address] [place], [place] [address] Allergies, [...] # 8.5 each, 0 Refills, [id number], 20, INHALE 2 PUFFS BY MOUTH EVERY 4 HOURS NEEDED FOR WHEEZING, 160, cm, 03/30/21 10:47:00 EST, Height, 104.6, kg, 12/04/20 10:52:00 EDT, Dry Weight Start Date: 04/28/21 Status: Ordered amitriptyline 10 mg oral tablet 10 mg, 1, tablet, By Mouth, Daily at bedtime, # 90 tablet, Refills 1, Tot. Refills 1, Maintenance, 12/24/20 16:08:00 EDT, Route to Pharmacy Electronically, [facility]/pharmacy #[id number], Partial fill upon patient request if the prescription is for a schedule II... Start Date: 12/24/20 Status: Ordered baclofen 10 mg oral tablet 10 mg, 1, tablet, By Mouth, 3 times a day, PRN, # 30 tablet, Refills 0, Tot. Refills 0, Maintenance, Spasm, 01/31/19 21:47:23 EDT, Route to Pharmacy Electronically, [id number], [facility]/pharmacy #[id number] Start Date: 01/31/19 Stop Date: 02/14/19 Status: Ordered benzonatate 100 mg oral capsule 2 capsule, By Mouth, 3 times a day, PRN NEEDED FOR COUGH, # 30 capsule, 1 Refills, Physician Stop 03/19/22 17:38:00 EST, 02/19/22 16:55:00 EDT, [facility]/pharmacy #[id number], 160, cm, 12/04/20 10:52:00 EDT, Height, 104.6, kg, 12/04/20 10:52:00 EDT, Dry Weight Start Date: 02/19/22 Stop Date: 03/19/22 Status: Ordered benzonatate 100 mg oral capsule 2 capsule, By Mouth, 3 times a day, PRN NEEDED FOR COUGH, # 30 capsule, 1 Refills, Physician Stop 02/19/22 16:55:00 EDT, 02/19/21 16:54:00 EDT, [facility]/pharmacy #[id number], 160, cm, 12/04/20 10:52:00 [...] 06/24/21 17:15:00 EST, 06/10/21 17:12:00 EST, Tablet, [facility]/pharmacy #[id number], Partial fill upon patient request if the prescription is for a schedule... Start Date: 06/10/21 Stop Date: 06/24/21 Status: Ordered Famotidine 0 Refills, Maintenance, 04/07/19 16:11:00 EST Start Date: 04/07/19 Status: Ordered gabapentin 800 mg oral tablet 1 tablet, By Mouth, 4 times a day, # 360 tablet, 1 Refills, [facility] [id number], 160, cm, 03/30/21 10:47:00 EST, Height, 104.6, [...] 1 Refills, Maintenance, 06/07/21 19:08:00 EST, Capsule, [facility]/pharmacy #[id number], Partial fill [...] 1 Refills, Maintenance, 05/14/21 15:23:00 EST, Tablet, [facility]/pharmacy #[id number], Partial fill upon patient request if the prescription is for a schedule II opioid drug., 160, c... Start Date: 05/14/21 Status: Ordered omeprazole 20 mg oral enteric coated capsule 1 capsule, By Mouth, Daily, # 90 capsule, 1 Refills, [facility] 59567, 160, cm, 03/30/21 10:47:00 EST, Height, 104.6, kg, 12/04/20 10:52:00 EDT, Dry Weight Start Date: 03/31/21 Status: Ordered ondansetron 4 mg oral tablet See Instructions, TAKE 1 TABLET BY MOUTH EVERY 8 HOURS NEEDED FOR NAUSEA AND VOMITING, # 15 tablet, 1 Refills, Physician Stop 07/12/21 15:23:00 EDT, 05/14/21 15:22:00 EST, [facility]/pharmacy #[id number], 160,cm, 03/30/21 10:47:00 EST, Height, 104.6, kg, 12/04... Start Date: 05/14/21 Stop Date: 07/12/21 Status: Ordered oxybutynin 5 mg oral tablet 1 tablet, By Mouth, 3 times a day, dose increase, # 270 tablet, 1 Refills, Maintenance, 03/19/21 17:40:00 EST, [facility]/pharmacy #[id number], 160, cm, 12/04/20 10:52:00 EDT, Height, 104.6, kg, 12/04/20 10:52:00EDT, Dry Weight Start Date: 03/19/21 Status: Ordered Qvar Redihaler 40 mcg/inh inhalation aerosol = 40 mcg, Inhalation, 2 times a day, to replace flovent rinse mouth and throat after use, # 1 each,1 Refills, Maintenance, 03/30/21 20:35:00 EST, [facility]/pharmacy #[id number], Partial fill [...]
--- OUTSIDE RECORDS SUMMARY | 2022-12-30 08:26 | XMS_ITS | Continuity of Care Document ---
Author Name Unknown Organization [facility] Address [address] [place] [address]- Care Team Providers Care Fisher Spear Name Role Phone Candis CARDENAS, Kaiden Villalta Primary Care Physician Encounter [facility] [place] Date(s): 12/29/21 - 01/28/22 [facility] [address] [place], [place] [address] [[email or web address]] Allergies, Adverse Reactions, [...] 8.5 Gm,0 Refills, Maintenance, 12/22/21 10:40:00 EDT, [facility] #[id number], 2 puffs Inhalation Every 4 hours,PRN: NEEDED FOR WHEEZING/cough/shortness... Start Date: 12/22/21 Status: Ordered albuterol 0.083% inhalation solution 3 mL = 2.5 mg, Inhalation, Every 4 hours, PRN for wheezing/cough/shortness of breath, # 25 each, 0 Refills, Maintenance, 10/14/21 22:10:00 EDT, Solution, [facility] #[id number], Partial fill upon patient request if the [...] tablet, 0 Refills, Maintenance, 12/27/21 13:43:00 EDT, [facility] #[id number], 153, cm, 10/08/21 13:23:00 EDT, Height, 113.9, kg, 10/08/21 13:23:00EDT, Dry Weight Start Date: 12/27/21 Status: Ordered clonazePAM 0.5 mg oral tablet 1 tablet = 0.5 mg, By Mouth, 4 times a day, PRN Anxiety, Patient on controlled substance contract. Please do NOT fill until 09/23/2020, # 112 tablet, 0 Refills, Maintenance, 11/18/20 21:02:00 EDT, Tablet, [facility]/pharmacy #[id number], Partial fill upon patient... Start Date: 11/18/20 Status: Ordered diclofenac 1% topical gel = 1 Gm, Topically, 4 times a day, FOR PAIN., # 100 Gm, 1 Refills, [facility], 30, APPLY 1 GM TOPICALLY 4 TIMES A DAY FOR PAIN, 153, cm, 06/07/21 11:07:00 EST, Height, 105, kg, 05/31/21 15:15:00 EST, Dry Weight Start Date: 08/05/21 Status: Ordered Dilaudid 2 mg oral tablet 1 tablet = 2 mg, By Mouth, 2 times a day, PRN Pain , Severe, checked masspat, # 28 tablet, 0 Refills, Maintenance, 01/18/22 17:28:00 EDT, Tablet, [facility] #[id number], Partial fill upon patient request if the prescription is for a schedule II o... Start Date: 01/18/22 Status: Ordered Estrace Vaginal Cream 0.1 mg/g = 2 Gm, Vaginally, Daily at bedtime, 2g PV daily at bedtime x 2 weeks, then 1g PV 1-3x per week, # 42.5 Gm, 5 Refills, Maintenance, 11/09/21 11:17:00 EDT, [facility] #[id number], Partial fill upon patient request if the prescription is for a sche... Start Date: 11/09/21 Status: Ordered estradiol 0.0375 mg/24 hours twice weekly transdermal film, extended release See Instructions, 1 patch Topically, change patch twice a week, # 1 pack/packet, 1 Refills, Maintenance, 12/07/21 10:42:00 EDT, [facility] #[id number], Partial fill upon patient request if the prescription is for a schedule II opioid drug., 153,... Start Date: 12/07/21 Status: Ordered gabapentin 800 mg oral tablet See Instructions, TAKE 1 TABLET BY MOUTH FOUR TIMES DAILY, # 360 tablet, 0 Refills, [facility] #[id number], 153, cm, 10/08/21 13:23:00 EDT, Height, 113.9, [...] capsule, 1 Refills, Maintenance, 12/08/21 10:10:00 EDT, [facility] #[id number], 153, cm, 10/08/21 13:23:00 EDT, Height, 113.9,kg, [...] 1 Refills, Maintenance, 11/30/21 15:44:00 EDT, Tablet, [facility] #[id number], [place]... Start Date: 11/30/21 Status: Ordered levothyroxine 0.112 mg oral tablet 1 tablet, By Mouth, Daily, AVOID ANTACIDS, CALCIUM, OR IRON FOR AT LEAST 4 HOURS BEFORE OR 4 HOURS AFTER; ON AN ON AN EMPTY STOMACH, # 90 tablet, 0 Refills, Maintenance, 01/20/22 17:46:00 EDT, [facility] #[id number], 153, cm, 01/04/22 13:15:00 ED... Start Date: 01/20/22 Status: Ordered lidocaine 3% topical gel 1 application, Topically, 2 times a day, PRN as needed for pain, to replace 2% topical, # 28.5 Gm, 2 Refills, Acute 03/29/22 14:17:00 EST, 12/28/21 14:17:00 EDT, Gel, [facility] #[id number], Partial fill upon patient request if the prescription i... Start Date: 12/28/21 Stop Date: 03/29/22 Status: Ordered meloxicam 15 mg oral tablet 1/2 TO 1 TABLET, By Mouth, Daily, PRN NEEDED FOR MODERATE PAIN, # 30 tablet, 5 Refills, Maintenance, 01/10/22 20:40:00 EDT, [facility] #[id number], 153, cm, 01/04/22 13:15:00 EDT, Height, 113.9, [...] capsule, 0 Refills, Maintenance, 01/16/22 8:28:00 EDT, [facility] #[id number], 153, cm, 01/04/22 13:15:00 EDT, Height, 113.9, kg, 10/08/21 13:23:00 EDT, Dry Weight Start Date: 01/16/22 Status: Ordered ondansetron 4 mg oral tablet 1 tablet = 4 mg, By Mouth, Every 8 hours, PRN Nausea & Vomiting, # 30 tablet, 1 Refills, Maintenance, 11/10/21 14:47:00 EDT, [facility] #[id number], 153, cm, 10/08/21 13:23:00 EDT, Height, 113.9, kg, 10/08/21 13:23:00 EDT, Dry Weight Start Date: 11/10/21 Status: Ordered oxybutynin 5 mg oral tablet 1 tablet, By Mouth, 3 times a day, # 270 tablet, 1 Refills, 01/10/22 10:29:00 EDT, [facility] #[id number], 153, cm, 01/04/22 13:15:00 EDT, Height, 113.9, [...] Name: Candis CARDENAS, Kaiden Villalta Address: Address: [address] [place] [address] Adult [facility] Pediatric [facility] [place], [place] [address] [[email or web address]]
--- OUTSIDE RECORDS SUMMARY | 2022-12-30 08:26 | XMS_ITS | Continuity of Care Document ---
Author Name Unknown Organization [facility] Address [address] [place] [address]- Care Team Providers Care Commodity Specialist Name Role Phone Candis CARDENAS, Kaiden Villalta Primary [id number] Date[facility] 09/24[facility] - 10/24/21 [facility] [address] [place], [place] [address] Allergies, Adverse Reactions, Alerts [...] 8.5 Gm,0 Refills, Maintenance, 09/28/21 16:57:00 T, [facility] #[id number], 2 puffs Inhalation Every 4 hours,PRN: NEEDED FOR WHEEZING/cough/shortness... Start Date: 09/28/21 Status: Ordered albuterol 0.083% inhalation solution 3 mL = 2.5 mg, Inhalation, Every 4 hours, PRN for wheezing/cough/shortness of breath, # 25 each, 0 Refills, Maintenance, 10/14/21 22:10:00 EDT, Solution, [facility] #[id number], Partial fill upon patient request if the [...] capsule, 1 Refills, Maintenance, 09/29/21 15:56:00 EDT, [facility] #[id number], 153, cm, 08/10/21 11:19:00 EDT, Height, 105, [...] 0 Refills, Maintenance, 11/18/20 21:02:00 EDT, Tablet, [facility]/pharmacy #[id number], Partial fill upon patient... Start Date: 11/18/20 Status: Ordered diclofenac 1% topical gel = 1 Gm, Topically, 4 times a day, FOR PAIN., # 100 Gm, 1 Refills, [facility] 47[facility], 30, APPLY 1 GM TOPICALLY 4 TIMES A DAY FOR PAIN, 153, cm, 06/07/21 11:07:00 EST, Height, 105, kg, 05/31/21 15:15:00 EST, Dry Weight Start Date: 08/05/21 Status: Ordered Dilaudid 2 mg oral tablet 1 tablet = 2 mg, By Mouth, 2 times a day, PRN Pain , Severe, checked masspat, # 28 tablet, 0 Refills, Maintenance, 10/08/21 13:52:00 EDT, Tablet, [facility] #[id number], Partial fill upon patient request if the prescription is for a schedule II o... Start Date: 10/08/21 Status: Ordered Famotidine 0 Refills, Maintenance, 04/07/19 16:11:00 EST Start Date: 04/07/19 Status: Ordered fluconazole 150 mg oral tablet 1 tablet = 150 mg, By Mouth, Once, # 1 tablet, 0 Refills, Soft Stop, 09/21/21 11:15:00 EDT, Tablet,[facility] #[id number], Partial fill upon patient request if the prescription is for a schedule II opioid drug., 153, cm, 08/10/21 11:19:00 EDT, H... Start Date: 09/21/21 Status: Ordered gabapentin 800 mg oral tablet See Instructions, TAKE 1 TABLET BY MOUTH FOUR TIMES DAILY, # 360 tablet, 0 Refills, [facility] #[id number], 153, cm, 10/08/21 13:23:00 EDT, Height, 113.9, [...] capsule, 1 Refills, Maintenance, 09/28/21 16:58:00 EDT, [facility] #[id number], 153, cm, 08/10/21 11:19:00 EDT, Height, 105, [...] tablet, 1 Refills, Maintenance, 07/30/21 12:25:00 EDT, [facility] #09482, Partial fill upon patient request if the prescription is for a schedule II opioid drug... Start Date: 07/30/21 Status: Ordered lidocaine 2% topical gel with applicator 5 mL = 0.1 Gm, Topically, 2 times a day, PRN Pain , Moderate, # 60 mL, 2 Refills, Soft Stop, 09/24/21 16:43:00 EDT, Gel, [facility] #[id number], Partial fill upon patient request if the [...] 90 capsule, 0 Refills, 09/27/21 14:31:00 EDT, [facility] #[id number], 153, cm, 08/10/21 11:19:00 EDT, Height, 105, kg, 05/31/21 15:15:00 EST, Dry Weight Start Date: 09/27/21 Status: Ordered ondansetron 4 mg oral tablet 1 tablet = 4 mg, By Mouth, Every 8 hours, PRN Nausea & Vomiting, # 30 tablet, 1 Refills, Maintenance, 09/28/21 16:56:00 EDT, [facility] #[id number], 153, cm, 08/10/21 11:19:00 EDT, Height, 105, kg, 05/31/21 15:15:00 EST, Dry Weight Start Date: 09/28/21 Status: Ordered oxybutynin 5 mg oral tablet 1 tablet, By Mouth, 3 times a day, # 270 tablet, 1 Refills, [facility] 07[facility], 153, cm, 08/10/21 11:19:00 EDT, Height, 105, [...] 1 Refills, Maintenance, 07/30/21 12:22:00 EDT, Tablet, [facility] #[id number], Partial fill upon patient request if the [...]
--- OUTSIDE RECORDS SUMMARY | 2022-12-30 08:26 | XMS_ITS | Continuity of Care Document ---
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 Start Date: 12/22/21 Status: Ordered albuterol 0.083% inhalation solution 3 mL = 2.5 mg, Inhalation, Every 4 hours, PRN for wheezing/cough/shortness of breath, # 25 each, 0 Refills, Maintenance, 06/29/22 13:08:00 EDT, Solution, [facility] #[id number], Partial fill upon patient request if the prescription is for a sched... Start Date: 06/29/22 Status: Ordered Augusta Saline Mist 0.65% nasal spray 2 sprays, Nares, Both, 4 times a day, # 1 each, 0 Refills, Maintenance, 02/04/22 13:32:00 EDT, [facility] #[id number], Partial fill upon patient request if the [...] tablet, 0 Refills, Maintenance, 12/27/21 13:43:00 EDT, [facility] #[id number], 153, cm, 10/08/21 13:23:00 EDT, Height, 113.9, kg, 10/08/21 13:23:00EDT, Dry Weight Start Date: 12/27/21 Status: Ordered chlorhexidine 2% topical liquid See Instructions, 1 application to bilateral forearms twice weekly, # 120 mL, 3 Refills, Soft Stop,06/17/22 11:06:00 EST, Liquid, [facility] #[id number], Partial fill upon patient request if the prescription is for a schedule II opioid drug., 1... Start Date: 06/17/22 Status: Ordered chlorhexidine 4% topical soap See Instructions, apply topically twice weekly to skin on forearms, # 120 mL, 2 Refills, Soft Stop,06/17/22 16:03:00 EST, [facility] #[id number], Partial fill upon patient request if the prescription is for a schedule II opioid drug., apply topi... Start Date: 06/17/22 Status: Ordered clonazePAM 0.5 mg oral tablet 1 tablet = 0.5 mg, By Mouth, 4 times a day, PRN Anxiety, Patient on controlled substance contract. Please do NOT fill until 09/23/2020, # 112 tablet, 0 Refills, Maintenance, 11/18/20 21:02:00 EDT, Tablet, [facility]/pharmacy #[id number], Partial fill upon patient... Start Date: 11/18/20 Status: Ordered diclofenac 1% topical gel = 1 Gm, Topically, 4 times a day, FOR PAIN., # 100 Gm, 1 Refills, [id number], 30, APPLY 1 GM TOPICALLY 4 TIMES A DAY FOR PAIN, 153, cm, 06/07/21 11:07:00 EST, Height, 105, kg, 05/31/21 15:15:00 EST, Dry Weight Start Date: 08/05/21 Status: Ordered Dilaudid 2 mg oral tablet 1 tablet = 2 mg, By Mouth, 2 times a day, PRN Pain , Severe, checked masspat, # 56 tablet, 0 Refills, Maintenance, 11/28/22 11:25:00 EDT, Tablet, [facility] #[id number], Partial fill upon patient request if the prescription is for a schedule II o... Start Date: 11/28/22 Status: Ordered Estrace Vaginal Cream 0.1 mg/g = 2 Gm, Vaginally, Daily at bedtime, 2g PV daily at bedtime x 2 weeks, then 1g PV 1-3x per week, # 42.5 Gm, 5 Refills, Maintenance, 11/09/21 11:17:00 EDT, [facility] #[id number], Partial fill upon patient request if the prescription is for a sche... Start Date: 11/09/21 Status: Ordered Estradiol Patch 0.0375 mg/24 hours twice weekly transdermal film, extended release See Instructions, APPLY 1 PATCH TOPICALLY TWICE WEEKLY DIRECTED, # 8 patch, 2 Refills, Maintenance, 09/22/22 21:55:00 EDT, [facility] #[id number], 28, APPLY 1 PATCH TOPICALLY TWICE WEEKLY DIRECTED, 153, cm, 06/17/22 10:53:00 EST, Height, 10... Start Date: 09/22/22 Status: Ordered fluconazole 150 mg oral tablet 1 tablet = 150 mg, By Mouth, Once, PRN vaginal yeast infection, repeat dose in 72 hours if symptomsnot resolved, # 2 tablet, 0 Refills, Soft Stop, 11/08/22 15:31:00 EDT, Tablet, [facility]#[id number], Partial fill upon patient request if the pr... Start Date: 11/08/22 Status: Ordered fluticasone 50 mcg/inh nasal spray See Instructions, SHAKE LIQUID AND USE 1 SPRAY IN EACH NOSTRIL TWICE DAILY, # 16 Gm, 1 Refills, Maintenance, 05/18/22 13:57:00 EST, [facility] #[id number], 30, SHAKE LIQUID AND USE 1 SPRAY IN EACH NOSTRIL TWICE DAILY, 153, cm, 04/25/22 16:23:00 E... Start Date: 05/18/22 Status: Ordered gabapentin 800 mg oral tablet 1 tablet, By Mouth, 4 times a day, # 360 tablet, 1 Refills, Maintenance, 10/25/22 21:47:00 EDT, [facility] #[id number], 153, cm, 06/17/22 10:53:00 EST, Height, 109, [...] capsule, 1 Refills, Maintenance, 11/15/22 11:13:00 EDT, [facility] #[id number], 154, cm, 10/29/22 14:42:00 EDT, Height, 109, [...] 1 Refills, Maintenance, 04/28/22 13:51:00 EST, Tablet, [facility] #[id number], Partial fill upon patient request if the prescription is for a schedule II opioid drug., 153, cm... Start Date: 04/28/22 Status: Ordered lidocaine 4% topical cream 1 application, Topically, 3 times a day, PRN Pain , Mild, # 30 Gm, 1 Refills, Maintenance, 06/24/2315:24:00 EST, Cream, [facility] #[id number], Partial fill upon patient request if the prescription is for a schedule II opioid drug., 1 applicatio... Start Date: 06/23/22 Status: Ordered meloxicam 15 mg oral tablet 1/2 TO 1 TABLET, By Mouth, Daily, PRN NEEDED FOR MODERATE PAIN, # 30 tablet, 5 Refills, Maintenance, 01/10/22 20:40:00 EDT, [facility] #[id number], 153, cm, 01/04/22 13:15:00 EDT, Height, 113.9, [...] capsule, 1 Refills, Maintenance, 07/26/22 14:24:00 EDT, [facility] #[id number], 153, cm, 06/17/22 10:53:00 EST, Height, 109, kg, 06/17/22 10:53:00 EST, Dry Weight Start Date: 07/26/22 Status: Ordered ondansetron 4 mg oral tablet 1 tablet, By Mouth, Every 8 hours, PRN NEEDED FOR NAUSEA OR VOMITING, # 30 tablet, 1 Refills, Maintenance, 10/27/22 23:08:00 EDT, [facility] #[id number], 153, cm, 06/17/22 10:53:00 EST, Height, 109, kg, 06/17/22 10:53:00 EST, Dry Weight Start Date: 10/27/22 Status: Ordered oxybutynin 5 mg oral tablet 1 tablet, By Mouth, 3 times a day, # 270 tablet, 1 Refills, Maintenance, 10/04/22 20:44:00 EDT, [facility] #[id number], 153, cm, 06/17/22 10:53:00 EST, Height, 109, [...] 11/18/22 16:07:00 EDT, Route to Pharmacy Electronically, [facility] #[id number], Partial fill upon patient request if the prescrip... Start Date: 11/18/22 Status: Ordered traZODone 50 mg oral tablet 1-2 tablet, By Mouth, Daily, one hour prior to bedtime. dose increase, # 60 tablet, Refills 2, Tot.Refills 2, Maintenance, 07/01/22 14:21:00 EDT, Route to Pharmacy Electronically, [facility] #[id number], Partial fill upon patient request if the... Start Date: 07/01/22 Status: Ordered triamcinolone 0.1% topical cream 1 application, Topically, 3 times a day, PRN arm rash, # 30 Gm, 1 Refills, Acute 06/08/23 9:53:00 EST, 06/08/22 9:53:00 EST, Cream, [facility] #[id number], Partial fill upon patient request if the [...] Primary Care Member Role: PCP Address: Address: [address] [place] [address] Adult [facility] [place] [address]- Care Team Related Persons Name: RODOLFO SHEIKH Address: home [address] [facility] [address] [place] [address] Name: CHIARA TEE Address: home [address] [place] [address] [address] [place] [address]
--- OUTSIDE RECORDS SUMMARY | 2022-12-30 08:26 | XMS_ITS | Continuity of Care Document ---
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 Start Date: 12/22/21 Status: Ordered albuterol 0.083% inhalation solution 3 mL = 2.5 mg, Inhalation, Every 4 hours, PRN for wheezing/cough/shortness of breath, # 25 each, 0 Refills, Maintenance, 10/14/21 22:10:00 EDT, Solution, [facility] #[id number], Partial fill upon patient request if the [...] tablet, 0 Refills, Maintenance, 12/27/21 13:43:00 EDT, [facility] #[id number], 153, cm, 10/08/21 13:23:00 EDT, Height, 113.9, kg, 10/08/21 13:23:00EDT, Dry Weight Start Date: 12/27/21 Status: Ordered clonazePAM 0.5 mg oral tablet 1 tablet = 0.5 mg, By Mouth, 4 times a day, PRN Anxiety, Patient on controlled substance contract. Please do NOT fill until 09/23/2020, # 112 tablet, 0 Refills, Maintenance, 11/18/20 21:02:00 EDT, Tablet, [facility]/pharmacy #[id number], Partial fill upon patient... Start Date: 11/18/20 Status: Ordered diclofenac 1% topical gel = 1 Gm, Topically, 4 times a day, FOR PAIN., # 100 Gm, 1 Refills, [facility], 30, APPLY 1 GM TOPICALLY 4 TIMES A DAY FOR PAIN, 153, cm, 06/07/21 11:07:00 EST, Height, 105, kg, 05/31/21 15:15:00 EST, Dry Weight Start Date: 08/05/21 Status: Ordered Dilaudid 2 mg oral tablet 1 tablet = 2 mg, By Mouth, 2 times a day, PRN Pain , Severe, checked masspat, # 28 tablet, 0 Refills, Maintenance, 01/18/22 17:28:00 EDT, Tablet, [facility] #[id number], Partial fill upon patient request if the prescription is for a schedule II o... Start Date: 01/18/22 Status: Ordered Estrace Vaginal Cream 0.1 mg/g = 2 Gm, Vaginally, Daily at bedtime, 2g PV daily at bedtime x 2 weeks, then 1g PV 1-3x per week, # 42.5 Gm, 5 Refills, Maintenance, 11/09/21 11:17:00 EDT, [facility] #[id number], Partial fill upon patient request if the prescription is for a sche... Start Date: 11/09/21 Status: Ordered estradiol 0.0375 mg/24 hours twice weekly transdermal film, extended release See Instructions, 1 patch Topically, change patch twice a week, # 1 pack/packet, 1 Refills, Maintenance, 12/07/21 10:42:00 EDT, [facility] #[id number], Partial fill upon patient request if the prescription is for a schedule II opioid drug., 153,... Start Date: 12/07/21 Status: Ordered gabapentin 800 mg oral tablet See Instructions, TAKE 1 TABLET BY MOUTH FOUR TIMES DAILY, # 360 tablet, 0 Refills, [facility] #[id number], 153, cm, 10/08/21 13:23:00 EDT, Height, 113.9, [...] capsule, 1 Refills, Maintenance, 12/08/21 10:10:00 EDT, [facility] #[id number], 153, cm, 10/08/21 13:23:00 EDT, Height, 113.9,kg, [...] 1 Refills, Maintenance, 11/30/21 15:44:00 EDT, Tablet, [facility] #[id number], [place]... Start Date: 11/30/21 Status: Ordered levothyroxine 0.112 mg oral tablet 1 tablet, By Mouth, Daily, AVOID ANTACIDS, CALCIUM, OR IRON FOR AT LEAST 4 HOURS BEFORE OR 4 HOURS AFTER; ON AN ON AN EMPTY STOMACH, # 90 tablet, 0 Refills, Maintenance, 01/20/22 17:46:00 EDT, [facility] #[id number], 153, cm, 01/04/22 13:15:00 ED... Start Date: 01/20/22 Status: Ordered lidocaine 3% topical gel 1 application, Topically, 2 times a day, PRN as needed for pain, to replace 2% topical, # 28.5 Gm, 2 Refills, Acute 03/29/22 14:17:00 EST, 12/28/21 14:17:00 EDT, Gel, [facility] #[id number], Partial fill upon patient request if the prescription i... Start Date: 12/28/21 Stop Date: 03/29/22 Status: Ordered meloxicam 15 mg oral tablet 1/2 TO 1 TABLET, By Mouth, Daily, PRN NEEDED FOR MODERATE PAIN, # 30 tablet, 5 Refills, Maintenance, 01/10/22 20:40:00 EDT, [facility] #[id number], 153, cm, 01/04/22 13:15:00 EDT, Height, 113.9, [...] capsule, 0 Refills, Maintenance, 01/16/22 8:28:00 EDT, [facility] #[id number], 153, cm, 01/04/22 13:15:00 EDT, Height, 113.9, kg, 10/08/21 13:23:00 EDT, Dry Weight Start Date: 01/16/22 Status: Ordered ondansetron 4 mg oral tablet 1 tablet = 4 mg, By Mouth, Every 8 hours, PRN Nausea & Vomiting, # 30 tablet, 1 Refills, Maintenance, 11/10/21 14:47:00 EDT, [facility] #[id number], 153, cm, 10/08/21 13:23:00 EDT, Height, 113.9, kg, 10/08/21 13:23:00 EDT, Dry Weight Start Date: 11/10/21 Status: Ordered oxybutynin 5 mg oral tablet 1 tablet, By Mouth, 3 times a day, # 270 tablet, 1 Refills, 01/10/22 10:29:00 EDT, [facility] #[id number], 153, cm, 01/04/22 13:15:00 EDT, Height, 113.9, [...] Name: Candis CARDENAS, Kaiden Villalta Address: Address: [address] [place] [address] Adult & Pediatric [place], [place] [address]
--- OUTSIDE RECORDS SUMMARY | 2022-12-30 08:26 | XMS_ITS | Continuity of Care Document ---
Author Name Unknown Organization [facility] Address [address] [place] [address]- Care Team Providers Care Center Administrator Name Role Phone Kaiden Chirinos MD Primary Care Physician Encounter [facility] Date(s): 07/20/21 - 08/19/21 [facility] [address] [place], [place] [address] Allergies, Adverse Reactions, Alerts Substance [...] # 8.5 each, 0 Refills, [facility], 20, INHALE 2 PUFFS BY MOUTH EVERY 4 HOURS NEEDED FOR WHEEZING, 160, cm, 03/30/21 10:47:00 EST, Height, 104.6, kg, 12/04/20 10:52:00 EDT, Dry Weight Start Date: 04/28/21 Status: Ordered amitriptyline 10 mg oral tablet 10 mg, 1, tablet, By Mouth, Daily at bedtime, # 90 tablet, Refills 1, Tot. Refills 1, Maintenance, 07/30/21 12:25:00 EDT, Route to Pharmacy Electronically, [facility] #[id number], Partial fill upon patient request if the [...] FOR PAIN., # 100 Gm, 1 Refills, [facility] 74865, 30, APPLY 1 GM TOPICALLY 4 TIMES A DAY FOR PAIN, 153, cm, 06/07/21 11:07:00 EST, Height, 105, kg, 05/31/21 15:15:00 EST, Dry Weight Start Date: 08/05/21 Status: Ordered Dilaudid 2 mg oral tablet 1 tablet = 2 mg, By Mouth, 2 times a day, PRN Pain , Severe, # 28 tablet, 0 Refills, Maintenance, 08/09/21 22:27:00 EDT, Tablet, [facility] #[id number], Partial fill upon patient request if the prescription is for a schedule II opioid drug., 153,... Start Date: 08/09/21 Status: Ordered Famotidine 0 Refills, Maintenance, 04/07/19 16:11:00 EST Start Date: 04/07/19 Status: Ordered gabapentin 800 mg oral tablet 1 tablet, By Mouth, 4 times a day, # 360 tablet, 1 Refills, [facility] 594[facility], 160, cm, 03/30/21 10:47:00 EST, Height, 104.6, [...] FOR ITCHING, # 90 capsule, 1 Refills, [facility] 89195, 153, cm, 06/07/21 11:07:00 EST, Height, 105, [...] 1 Refills, Maintenance, 07/30/21 12:25:00 EDT, Tablet, [facility] #[id number], Partial fill upon patient request if the prescription is for a schedule II opioid drug... Start Date: 07/30/21 Status: Ordered omeprazole 20 mg oral enteric coated capsule 1 capsule, By Mouth, Daily, # 90 capsule, 1 Refills, [facility] 13077, 160, cm, 03/30/21 10:47:00 EST, Height, 104.6, kg, 12/04/20 10:52:00 EDT, Dry Weight Start Date: 03/31/21 Status: Ordered ondansetron 4 mg oral tablet 1 tablet = 4 mg, By Mouth, Every 8 hours, PRN Nausea & Vomiting, # 30 tablet, 1 Refills, Maintenance, 08/12/21 13:26:00 EDT, [facility] #[id number], 153, cm, 08/10/21 11:19:00 EDT, Height, 105, kg, 05/31/21 15:15:00 EST, Dry Weight Start Date: 08/12/21 Status: Ordered oxybutynin 5 mg oral tablet 1 tablet, By Mouth, 3 times a day, dose increase, # 270 tablet, 1 Refills, Maintenance, 03/19/21 17:40:00 EST, [facility]/pharmacy #[id number], 160, cm, 12/04/20 [...] 0 Refills, Maintenance, 08/13/21 16:34:00 EDT, Tablet, [facility] #[id number], Partial fill upon patient request if the prescription is for a schedule II opioid drug., 153, scott, 08/10/21 11:19:00 ED... Start Date: 08/13/21 Status: Ordered traZODone 150 mg oral tablet 1.5 tablet = 225 mg, By Mouth, Daily at bedtime, # 135 tablet, 1 Refills, Maintenance, 07/30/21 12:25:00 EDT, Tablet, [facility] #[id number], Partial fill upon patient request if the [...] 1 Refills, Maintenance, 07/30/21 12:22:00 EDT, Tablet, [facility] #[id number], Partial fill upon patient request if the prescription is for a schedule II opioid drug., 153, scott, 06/07/21 11:07:00 EST... Start Date: 07/30/21 Status: [...]
--- OUTSIDE RECORDS SUMMARY | 2022-12-30 08:26 | XMS_ITS | Continuity of Care Document ---
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 Start Date: 12/22/21 Status: Ordered albuterol 0.083% inhalation solution 3 mL = 2.5 mg, Inhalation, Every 4 hours, PRN for wheezing/cough/shortness of breath, # 25 each, 0 Refills, Maintenance, 10/14/21 22:10:00 EDT, Solution, [facility] #[id number], Partial fill upon patient request if the [...] tablet, 0 Refills, Maintenance, 12/27/21 13:43:00 EDT, [facility] #[id number], 153, cm, 10/08/21 13:23:00 EDT, Height, 113.9, [...] FOR PAIN., # 100 Gm, 1 Refills, [facility] 63588, 30, APPLY 1 GM TOPICALLY 4 TIMES A DAY FOR PAIN, 153, cm, 06/07/21 11:07:00 EST, Height, 105, kg, 05/31/21 15:15:00 EST, Dry Weight Start Date: 08/05/21 Status: Ordered Dilaudid 2 mg oral tablet 1 tablet = 2 mg, By Mouth, 2 times a day, PRN Pain , Severe, checked masspat, # 28 tablet, 0 Refills, Maintenance, 01/05/22 10:35:00 EDT, Tablet, [facility] #35906, Partial fill upon patient request if the prescription is for a schedule II o... Start Date: 01/05/22 Status: Ordered Estrace Vaginal Cream 0.1 mg/g = 2 Gm, Vaginally, Daily at bedtime, 2g PV daily at bedtime x 2 weeks, then 1g PV 1-3x per week, # 42.5 Gm, 5 Refills, Maintenance, 11/09/21 11:17:00 EDT, [facility] #[id number], Partial fill upon patient request if the prescription is for a sche... Start Date: 11/09/21 Status: Ordered estradiol 0.0375 mg/24 hours twice weekly transdermal film, extended release See Instructions, 1 patch Topically, change patch twice a week, # 1 pack/packet, 1 Refills, Maintenance, 12/07/21 10:42:00 EDT, [facility] #[id number], Partial fill upon patient request if the prescription is for a schedule II opioid drug., 153,... Start Date: 12/07/21 Status: Ordered gabapentin 800 mg oral tablet See Instructions, TAKE 1 TABLET BY MOUTH FOUR TIMES DAILY, # 360 tablet, 0 Refills, [facility] #[id number], 153, cm, 10/08/21 13:23:00 EDT, Height, 113.9, [...] capsule, 1 Refills, Maintenance, 12/08/21 10:10:00 EDT, [facility] #[id number], 153, cm, 10/08/21 13:23:00 EDT, Height, 113.9,kg, [...] tablet, 1 Refills, Maintenance, 07/30/21 12:25:00 EDT, SWEEPiO, [facility] #[id number], Partial fill upon patient request if the prescription is for a schedule II opioid drug... Start Date: 07/30/21 Status: Ordered levothyroxine 0.1 mg oral tablet 1 tablet = 100 mcg, By Mouth, Daily, dose increase, # 90 tablet, 0 Refills, Maintenance, 11/01/21 16:08:00 EDT, [facility] #[id number], Please discontinue 88ug, 153, cm, 10/08/21 13:23:00 [...] tablet, 1 Refills, Maintenance, 11/30/21 15:44:00 EDT, [facility] #[id number], [place]... Start Date: 11/30/21 Status: Ordered lidocaine 3% topical gel 1 application, Topically, 2 times a day, PRN as needed for pain, to replace 2% topical, # 28.5 Gm, 2 Refills, Acute 03/29/22 14:17:00 EST, 12/28/21 14:17:00 EDT, Gel, [facility] #55806, Partial fill upon patient request if the prescription i... Start Date: 12/28/21 Stop Date: 03/29/22 Status: Ordered lidocaine 4% topical cream 1 application, Topically, 2 times a day, PRN Pain , Mild, # 30 Gm, 1 Refills, Acute 01/27/22 17:31:00 EDT, 12/28/21 17:31:00 EDT, Cream, [facility] #[id number], Partial fill upon patient requestif the prescription is for a schedule II opioid cedrick... Start Date: 12/28/21 Stop Date: 01/27/22 Status: Ordered meloxicam 15 mg oral tablet 1/2 TO 1 TABLET, By Mouth, Daily, PRN NEEDED FOR MODERATE PAIN, # 30 tablet, 1 Refills, :04:00 EDT, [facility] #[id number], 153, cm, 10/08/21 13:23:00 EDT, Height, 113.9, [...] 90 capsule, 0 Refills, 09/27/21 14:31:00 EDT, [facility] #[id number], 153, cm, 08/10/21 11:19:00 EDT, Height, 105, kg, 05/31/21 15:15:00 EST, Dry Weight Start Date: 09/27/21 Status: Ordered ondansetron 4 mg oral tablet 1 tablet = 4 mg, By Mouth, Every 8 hours, PRN Nausea & Vomiting, # 30 tablet, 1 Refills, Maintenance, 11/10/21 14:47:00 EDT, [facility] #[id number], 153, cm, 10/08/21 13:23:00 EDT, Height, 113.9, kg, 10/08/21 13:23:00 EDT, Dry Weight Start Date: 11/10/21 Status: Ordered oxybutynin 5 mg oral tablet 1 tablet, By Mouth, 3 times a day, # 270 tablet, 1 Refills, 01/05/22 9:12:00 EDT, [facility] #[id number], 153, cm, 01/04/22 13:15:00 EDT, Height, 113.9, [...] 01/11/22 13:32:00 EDT, 01/04/22 13:32:00 EDT, Tablet, [facility] #[id number], Partial fill upon patient request if the [...] Personnel Name: Candis CARDENAS, Kaiden Villalta Address: [address] [place] [address] Adult & Pediatric Medicine [place], [place] [address]
--- OUTSIDE RECORDS SUMMARY | 2022-12-30 08:26 | XMS_ITS | Continuity of Care Document ---
Author Name Unknown Organization [facility] Address [address] [place] [address]- Care Team Providers Care Corporate Receptionist Name Role Phone Kaiden Chirinos MD Primary Care Physician Encounter [facility] Date(s): 10/30/20 - 01/13/21 [facility] [address] [place], [place] [address] Attending Physician: Kaiden Chirinos MD Allergies, Adverse [...] EDT, Route to Pharmacy Electronically, [facility]/pharmacy #[id number], Partial fill upon patient request if the prescription is for a schedule II... Start Date: 12/24/20 Status: Ordered baclofen 10 mg oral tablet 10 mg, 1, tablet, By Mouth, 3 times a day, PRN, # 30 tablet, Refills 0, Tot. Refills 0, Maintenance, Spasm, 01/31/19 21:47:23 EDT, Route to Pharmacy Electronically, [id number], [facility]/pharmacy #[id number] Start Date: 01/31/19 Stop Date: 02/14/19 Status: Ordered clonazePAM 0.5 mg oral tablet 1 tablet = 0.5 mg, By Mouth, 4 times a day, PRN Anxiety, Patient on controlled substance contract. Please do NOT fill until 09/23/2020, # 112 tablet, 0 Refills, Maintenance, 11/18/20 21:02:00 EDT, Tablet, [facility]/pharmacy #[id number], Partial fill upon patient... Start Date: 11/18/20 Status: Ordered Famotidine 0 Refills, Maintenance, 04/07/19 16:11:00 EST Start Date: 04/07/19 Status: Ordered gabapentin 800 mg oral tablet 1 tablet = 800 mg, By Mouth, 4 times a day, # 360 tablet, 1 Refills, Maintenance, 11/09/20 23:47:00EDT, Tablet, [facility]/pharmacy #[id number], Partial fill upon patient request if [...] Maintenance, 11/05/20 11:43:00 EDT, Tablet, [facility]/pharmacy #[id number], Partial fill upon patient request if the prescription is for a schedule II opioid drug., 160, cm, 10/30/20 8:2... Start Date: 11/05/20 Status: Ordered meloxicam 15 mg oral tablet See Instructions, PRN Pain , Moderate, 0.5 to1 tab PO daily with food, # 30 capsule, 1 Refills, Maintenance, 12/04/20 11:27:00 EDT, Tablet, [facility]/pharmacy #[id number], Partial fill upon patient request if [...]
--- OUTSIDE RECORDS SUMMARY | 2022-12-30 08:26 | XMS_ITS | Continuity of Care Document ---
Author Name Unknown Organization [facility] Address [address] [place] [address]- Care Team Providers Care Lokie Engineer Name Role Phone Kaiden Chirinos MD Primary Care Physician [place] [facility] [place] 12[place]28/20 [facility] [address] [place], [place] [address] Allergies, Adverse Reactions, [...] to Pharmacy Electronically, [facility]/pharmacy #[id number], Partial fill upon patient request if the prescription is for a schedule II... Start Date: 12/24/20 Status: Ordered baclofen 10 mg oral tablet 10 mg, 1, tablet, By Mouth, 3 times a day, PRN, # 30 tablet, Refills 0, Tot. Refills 0, Maintenance, Spasm, 01/31/19 21:47:23 EDT, Route to Pharmacy Electronically, [id number], [facility]/pharmacy #[id number] Start Date: [...] Refills, Maintenance, 11/16/20 8:39:00 EDT, Aerosol, [facility]/pharmacy #[id number], Partial fill [...] 8:45:00 EDT, Tablet, [facility]/pharmacy #[id number], Partial fill upon patient reques... Start Date: 10/30/20 Status: Ordered traZODone 150 mg oral tablet 1 tablet = 150 mg, By Mouth, Daily at bedtime, dose increase, # 90 tablet, 1 Refills, Maintenance, 11/03/20 13:28:00 EDT, Tablet, [facility]/pharmacy #[id number], [...]
--- OUTSIDE RECORDS SUMMARY | 2022-12-30 08:26 | XMS_ITS | Continuity of Care Document ---
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 Name Role Phone Candis CARDENAS, Kaiden Villalta [id number] - 07/30/[facility] [address] [place], [place] [address] Allergies, Adverse Reactions, Alerts Substance Reaction Severity [...] # 8.5 each, 0 Refills, [id number], 20, INHALE 2 PUFFS BY MOUTH EVERY 4 HOURS NEEDED FOR WHEEZING, 160, cm, 03/30/21 10:47:00 EST, Height, 104.6, kg, 12/04/20 10:52:00 EDT, Dry Weight Start Date: 04/28/21 Status: Ordered amitriptyline 10 mg oral tablet 10 mg, 1, tablet, By Mouth, Daily at bedtime, # 90 tablet, Refills 1, Tot. Refills 1, Maintenance, 07/30/21 12:25:00 EDT, Route to Pharmacy Electronically, [facility] #[id number], Partial fill upon patient request if the prescription is for a jasmin... Start Date: 07/30/21 Status: Ordered benzonatate 100 mg oral capsule 2 capsule, By Mouth, 3 times a day, PRN NEEDED FOR COUGH, # 30 capsule, 1 Refills, Physician Stop 03/19/22 17:38:00 EST, 02/19/22 16:55:00 EDT, [facility]/pharmacy #[id number], 160, cm, 12/04/20 10:52:00 EDT, Height, 104.6, kg, 12/04/20 10:52:00 EDT, Dry Weight Start Date: 02/19/22 Stop Date: 03/19/22 Status: Ordered benzonatate 100 mg oral capsule 2 capsule, By Mouth, 3 times a day, PRN NEEDED FOR COUGH, # 30 capsule, 1 Refills, Physician Stop 02/19/22 16:55:00 EDT, 02/19/21 16:54:00 EDT, [facility]/pharmacy #[id number], 160, cm, 12/04/20 10:52:00 EDT, Height, 104.6, kg, 12/04/20 10:52:00 EDT, Dry Weight Start Date: 02/19/21 Stop Date: 02/19/22 Status: Ordered clonazePAM 0.5 mg oral tablet 1 tablet = 0.5 mg, By Mouth, 4 times a day, PRN Anxiety, Patient on controlled substance contract. Please do NOT fill until 09/23/2020, # 112 tablet, 0 Refills, Maintenance, 11/18/20 21:02:00 EDT, Tablet, [facility]/pharmacy #[id number], Partial fill upon patient... Start Date: 11/18/20 Status: Ordered Dilaudid 2 mg oral tablet 1 tablet = 2 mg, By Mouth, 2 times a day, PRN Pain , Severe, # 28 tablet, 0 Refills, Maintenance, 07/21/21 12:23:00 EDT, Tablet, [facility] #[id number], Partial fill upon patient request if the prescription is for a schedule II opioid drug., 153,... Start Date: 07/21/21 Status: Ordered Famotidine 0 Refills, Maintenance, 04/07/19 16:11:00 EST Start Date: 04/07/19 Status: Ordered gabapentin 800 mg oral tablet 1 tablet, By Mouth, 4 times a day, # 360 tablet, 1 Refills, [id number], 160, cm, 03/30/21 10:47:00 EST, Height, 104.6, [...] 1 Refills, Maintenance, 07/30/21 12:25:00 EDT, Capsule, [facility] #[id number], Partial fill upon patient request if the [...] 1 Refills, Maintenance, 07/30/21 12:25:00 EDT, Tablet, [facility] #[id number], Partial fill upon patient request if the prescription is for a schedule II opioid drug... Start Date: 07/30/21 Status: Ordered omeprazole 20 mg oral enteric coated capsule 1 capsule, By Mouth, Daily, # 90 capsule, 1 Refills, [id number], 160, cm, 03/30/21 10:47:00 EST, Height, 104.6, [...] 1 Refills, Maintenance, 07/30/21 12:25:00 EDT, Tablet, [facility] #[id number], Partial fill upon patient request if the [...] 1 Refills, Maintenance, 06/11/21 14:11:00 EST, Gel, [facility]/pharmacy #[id number], Partial fill upon patient request if the prescriptionis for a schedule II opioid drug., 1 Gm Topically 4... Start Date: 06/11/21 Status: Ordered ZyrTEC 10 mg oral tablet 1 tablet = 10 mg, By Mouth, Daily, # 90 tablet, 1 Refills, Maintenance, 07/30/21 12:22:00 EDT, Tablet, [facility] #[id number], Partial fill upon patient request if the [...]
--- OUTSIDE RECORDS SUMMARY | 2022-12-30 08:26 | XMS_ITS | Continuity of Care Document ---
Author Name Unknown Organization [facility] Address [address] [place] [address] [address], [address] [place] [address]- Care Team Providers Care Chapter Relations Administrator Name Role Phone Candis CARDENAS, Kaiden Villalta Primary Care Physician Encounter [facility] [place] Date(s): 03/28/22 - 04/27/22 [facility] [address] [place] [address], [address] [place] [address]- Allergies, Adverse Reactions, Alerts Substance Reaction Severity [...] 8.5 Gm,0 Refills, Maintenance, 12/22/21 10:40:00 EDT, [facility] #[id number], 2 puffs Inhalation Every 4 hours,PRN: NEEDED FOR WHEEZING/cough/shortness... Start Date: 12/22/21 Status: Ordered albuterol 0.083% inhalation solution 3 mL = 2.5 mg, Inhalation, Every 4 hours, PRN for wheezing/cough/shortness of breath, # 25 each, 0 Refills, Maintenance, 10/14/21 22:10:00 EDT, Solution, [facility] #[id number], Partial fill upon patient request if the prescription is for a sched... Start Date: 10/14/21 Status: Ordered Badger Saline Mist 0.65% nasal spray 2 sprays, Nares, Both, 4 times a day, # 1 each, 0 Refills, Maintenance, 02/04/22 13:32:00 EDT, [facility] #[id number], Partial fill upon patient request if the [...] tablet, 0 Refills, Maintenance, 12/27/21 13:43:00 EDT, [facility] #[id number], 153, cm, 10/08/21 13:23:00 EDT, Height, 113.9, [...] # 100 Gm, 1 Refills, [facility], 30, APPLY 1 GM TOPICALLY 4 TIMES A DAY FOR PAIN, 153, cm, 06/07/21 11:07:00 EST, Height, 105, kg, 05/31/21 15:15:00 EST, Dry Weight Start Date: 08/05/21 Status: Ordered Dilaudid 2 mg oral tablet 1 tablet = 2 mg, By Mouth, 2 times a day, PRN Pain , Severe, checked masspat, # 56 tablet, 0 Refills, Maintenance, 04/07/22 21:32:00 EST, Tablet, [facility] #[id number], Partial fill upon patient request if the prescription is for a schedule II o... Start Date: 04/07/22 Status: Ordered doxycycline monohydrate 100 mg oral capsule 1 capsule = 100 mg, By Mouth, 2 times a day, for 10 days, take with food, # 20 capsule, 0 Refills, Acute 05/05/22 16:17:00 EST, 04/25/22 16:17:00 EST, Capsule, [facility] #[id number], Partial fill upon patient request if the prescription is for a... Start Date: 04/25/22 Stop Date: 05/05/22 Status: Ordered Estrace Vaginal Cream 0.1 mg/g = 2 Gm, Vaginally, Daily at bedtime, 2g PV daily at bedtime x 2 weeks, then 1g PV 1-3x per week, # 42.5 Gm, 5 Refills, Maintenance, 11/09/21 11:17:00 EDT, [facility] #[id number], Partial fill upon patient request if the prescription is for a sche... Start Date: 11/09/21 Status: Ordered Estradiol Patch 0.0375 mg/24 hours twice weekly transdermal film, extended release See Instructions, APPLY 1 PATCH TOPICALLY TWICE WEEKLY DIRECTED, # 8 patch, 6 Refills, Maintenance, 03/23/22 16:10:00 EST, [facility] #[id number], 28, APPLY 1 PATCH TOPICALLY TWICE WEEKLY DIRECTED, 153, cm, 01/04/22 13:15:00 EDT, Height, 11... Start Date: 03/23/22 Status: Ordered Flonase 50 mcg/inh nasal spray 1 sprays, Nares, Both, 2 times a day, # 16 Gm, 0 Refills, Maintenance, 04/19/22 14:04:00 EST, [place], [facility] #[id number], Partial fill upon patient request if the prescription is for a schedule II opioid drug., 1 sprays Nares, Both 2 times a d... Start Date: 04/19/22 Status: Ordered fluconazole 150 mg oral tablet 1 tablet = 150 mg, By Mouth, Once, PRN vaginal yeast infection, # 1 tablet, 0 Refills, Soft Stop, 03/15/22 10:42:00 EST, Tablet, [facility] #[id number], Partial fill upon patient request if the prescription is for a schedule II opioid drug., 153,... Start Date: 03/15/22 Status: Ordered gabapentin 800 mg oral tablet 1 tablet, By Mouth, 4 times a day, # 360 tablet, 1 Refills, Maintenance, 04/19/22 12:59:00 EST, [facility] #[id number], 153, cm, 01/04/22 13:15:00 EDT, Height, 113.9, [...] capsule, 1 Refills, Maintenance, 12/08/21 10:10:00 EDT, [facility] #[id number], 153, cm, 10/08/21 13:23:00 EDT, Height, 113.9,kg, [...] 1 Refills, Maintenance, 04/19/22 12:01:00 EST, Tablet, [facility] #[id number], Partial fill upon patient request if the prescription is for a schedule II opioid drug., 153, cm... Start Date: 04/19/22 Status: Ordered lidocaine 4% topical cream 1 application, Topically, 3 times a day, PRN pain of forearms, # 30 Gm, 1 Refills, Acute 06/23/22 16:24:00 EST, 04/25/22 16:23:00 EST, Cream, [facility] #[id number], Partial fill upon patient request if the prescription is for a schedule II opioi... Start Date: 04/25/22 Stop Date: 06/23/22 Status: Ordered meloxicam 15 mg oral tablet 1/2 TO 1 TABLET, By Mouth, Daily, PRN NEEDED FOR MODERATE PAIN, # 30 tablet, 5 Refills, Maintenance, 01/10/22 20:40:00 EDT, [facility] #[id number], 153, cm, 01/04/22 13:15:00 EDT, Height, 113.9, [...] capsule, 1 Refills, Maintenance, 04/19/22 12:41:00 EST, [facility] #[id number], 153, cm, 01/04/22 13:15:00 EDT, Height, 113.9, kg, 10/08/21 13:23:00 EDT, Dry Weight Start Date: 04/19/22 Status: Ordered ondansetron 4 mg oral tablet 1 tablet, By Mouth, Every 8 hours, PRN NEEDED FOR NAUSEA OR VOMITING, # 30 tablet, 1 Refills, Maintenance, 04/14/22 21:15:00 EST, [facility] #[id number], 153, cm, 01/04/22 13:15:00 EDT, Height, 113.9, kg, 10/08/21 13:23:00 EDT, Dry Weight Start Date: 04/14/22 Status: Ordered oxybutynin 5 mg oral tablet 1 tablet, By Mouth, 3 times a day, # 270 tablet, 1 Refills, 01/10/22 10:29:00 EDT, [facility] #[id number], 153, cm, 01/04/22 13:15:00 EDT, Height, 113.9, [...] 04/14/22 21:16:00 EST, Route to Pharmacy Electronically, [facility] #[id number], Partial fill upon patient request if the... [...] Care Physician Member Role: PCP Address: Address: [address] [place] [address] [facility] [place] [address]- Care Team Related Persons Name: RODOLFO SHEIKH Address: home [address] [address] Name: CHIARA TEE Address: home [address] [place] [address]
--- OUTSIDE RECORDS SUMMARY | 2022-12-30 08:27 | XMS_ITS | Continuity of Care Document ---
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 Start Date: 09/22/20 Status: Ordered baclofen 10 mg oral tablet 10 mg, 1, tablet, By Mouth, 3 times a day, PRN, # 30 tablet, Refills 0, Tot. Refills 0, Maintenance, Spasm, 01/31/19 21:47:23 EDT, Route to Pharmacy Electronically, [id number], [facility]/pharmacy #[id number] Start Date: 01/31/19 Stop Date: 02/14/19 Status: Ordered clonazePAM 0.5 mg oral tablet 1 tablet = 0.5 mg, By Mouth, 4 times a day, PRN Anxiety, Patient on controlled substance contract. Please do NOT fill until 09/23/2020, # 112 tablet, 0 Refills, Maintenance, 11/18/20 21:02:00 EDT, Tablet, [facility]/pharmacy #[id number], Partial fill upon patient... Start Date: 11/18/20 Status: Ordered Famotidine 0 Refills, Maintenance, 04/07/19 16:11:00 EST Start Date: 04/07/19 Status: Ordered gabapentin 800 mg oral tablet 1 tablet = 800 mg, By Mouth, 4 times a day, # 360 tablet, 1 Refills, Maintenance, 11/09/20 23:47:00EDT, Tablet, [facility]/pharmacy #[id number], Partial [...] 1 Refills, Maintenance, 11/05/20 11:43:00 EDT, Tablet, [facility]/pharmacy #[id number], Partial fill upon patient request if the prescription is for a schedule II opioid drug., 160, cm, 10/30/20 8:2... Start Date: 11/05/20 Status: Ordered meloxicam 15 mg oral tablet See Instructions, PRN Pain , Moderate, 0.5 to1 tab PO daily with food, # 30 capsule, 1 Refills, Maintenance, 12/04/20 11:27:00 EDT, Tablet, [facility]/pharmacy #[id number], [...] Refills, Maintenance, 11/27/20 17:20:00 EDT, [facility], 160, cm, 10/30/20 8:28:00 EDT, Height, 105.5, kg, 10/30/20 8:28:00 EDT, Dry Weight Start Date: 11/27/20 Status: Ordered ProAir HFA 90 mcg/inh inhalation aerosol 2 puffs, Inhalation, Every 4 hours, PRN as needed for wheezing, # 8.5 Gm, 0 Refills, Maintenance, 11/16/20 8:39:00 EDT, Aerosol, [facility]/pharmacy #[id number], [...] 1 Refills, Maintenance, 10/30/20 8:45:00 EDT, Tablet, [facility]/pharmacy #[id number], Partial fill upon patient reques... Start Date: 10/30/20 Status: Ordered traZODone 150 mg oral tablet 1 tablet = 150 mg, By Mouth, Daily at bedtime, dose increase, # 90 tablet, 1 Refills, Maintenance, 11/03/20 13:28:00 EDT, Tablet, [facility]/pharmacy #[id number], [...]
--- OUTSIDE RECORDS SUMMARY | 2022-12-30 08:27 | XMS_ITS | Continuity of Care Document ---
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 Start Date: 12/22/21 Status: Ordered albuterol 0.083% inhalation solution 3 mL = 2.5 mg, Inhalation, Every 4 hours, PRN for wheezing/cough/shortness of breath, # 25 each, 0 Refills, Maintenance, 10/14/21 22:10:00 EDT, Solution, [facility] #[id number], Partial fill upon patient request if the [...] tablet, 0 Refills, Maintenance, 12/27/21 13:43:00 EDT, [facility] #[id number], 153, cm, 10/08/21 13:23:00 EDT, Height, 113.9, kg, 10/08/21 13:23:00EDT, Dry Weight Start Date: 12/27/21 Status: Ordered clonazePAM 0.5 mg oral tablet 1 tablet = 0.5 mg, By Mouth, 4 times a day, PRN Anxiety, Patient on controlled substance contract. Please do NOT fill until 09/23/2020, # 112 tablet, 0 Refills, Maintenance, 11/18/20 21:02:00 EDT, Tablet, [facility]/pharmacy #[id number], Partial fill upon patient... Start Date: 11/18/20 Status: Ordered diclofenac 1% topical gel = 1 Gm, Topically, 4 times a day, FOR PAIN., # 100 Gm, 1 Refills, [facility], 30, APPLY 1 GM TOPICALLY 4 TIMES A DAY FOR PAIN, 153, cm, 06/07/21 11:07:00 EST, Height, 105, kg, 05/31/21 15:15:00 EST, Dry Weight Start Date: 08/05/21 Status: Ordered Dilaudid 2 mg oral tablet 1 tablet = 2 mg, By Mouth, 2 times a day, PRN Pain , Severe, checked masspat, # 28 tablet, 0 Refills, Maintenance, 01/18/22 17:28:00 EDT, Tablet, [facility] #[id number], Partial fill upon patient request if the prescription is for a schedule II o... Start Date: 01/18/22 Status: Ordered Estrace Vaginal Cream 0.1 mg/g = 2 Gm, Vaginally, Daily at bedtime, 2g PV daily at bedtime x 2 weeks, then 1g PV 1-3x per week, # 42.5 Gm, 5 Refills, Maintenance, 11/09/21 11:17:00 EDT, [facility] #[id number], Partial fill upon patient request if the prescription is for a sche... Start Date: 11/09/21 Status: Ordered estradiol 0.0375 mg/24 hours twice weekly transdermal film, extended release See Instructions, 1 patch Topically, change patch twice a week, # 1 pack/packet, 1 Refills, Maintenance, 12/07/21 10:42:00 EDT, [facility] #[id number], Partial fill upon patient request if the prescription is for a schedule II opioid drug., 153,... Start Date: 12/07/21 Status: Ordered gabapentin 800 mg oral tablet See Instructions, TAKE 1 TABLET BY MOUTH FOUR TIMES DAILY, # 360 tablet, 0 Refills, [facility] #[id number], 153, cm, 10/08/21 13:23:00 EDT, Height, 113.9, [...] capsule, 1 Refills, Maintenance, 12/08/21 10:10:00 EDT, [facility] #[id number], 153, cm, 10/08/21 13:23:00 EDT, Height, 113.9,kg, [...] 1 Refills, Maintenance, 11/30/21 15:44:00 EDT, Tablet, [facility] #[id number], [place]... Start Date: 11/30/21 Status: Ordered levothyroxine 0.112 mg oral tablet 1 tablet, By Mouth, Daily, AVOID ANTACIDS, CALCIUM, OR IRON FOR AT LEAST 4 HOURS BEFORE OR 4 HOURS AFTER; ON AN ON AN EMPTY STOMACH, # 90 tablet, 0 Refills, Maintenance, 01/20/22 17:46:00 EDT, [facility] #[id number], 153, cm, 01/04/22 13:15:00 ED... Start Date: 01/20/22 Status: Ordered lidocaine 3% topical gel 1 application, Topically, 2 times a day, PRN as needed for pain, to replace 2% topical, # 28.5 Gm, 2 Refills, Acute 03/29/22 14:17:00 EST, 12/28/21 14:17:00 EDT, Gel, [facility] #[id number], Partial fill upon patient request if the prescription i... Start Date: 12/28/21 Stop Date: 03/29/22 Status: Ordered meloxicam 15 mg oral tablet 1/2 TO 1 TABLET, By Mouth, Daily, PRN NEEDED FOR MODERATE PAIN, # 30 tablet, 5 Refills, Maintenance, 01/10/22 20:40:00 EDT, [facility] #[id number], 153, cm, 01/04/22 13:15:00 EDT, Height, 113.9, [...] capsule, 0 Refills, Maintenance, 01/16/22 8:28:00 EDT, [facility] #[id number], 153, cm, 01/04/22 13:15:00 EDT, Height, 113.9, kg, 10/08/21 13:23:00 EDT, Dry Weight Start Date: 01/16/22 Status: Ordered ondansetron 4 mg oral tablet 1 tablet = 4 mg, By Mouth, Every 8 hours, PRN Nausea & Vomiting, # 30 tablet, 1 Refills, Maintenance, 11/10/21 14:47:00 EDT, [facility] #[id number], 153, cm, 10/08/21 13:23:00 EDT, Height, 113.9, kg, 10/08/21 13:23:00 EDT, Dry Weight Start Date: 11/10/21 Status: Ordered oxybutynin 5 mg oral tablet 1 tablet, By Mouth, 3 times a day, # 270 tablet, 1 Refills, 01/10/22 10:29:00 EDT, [facility] #[id number], 153, cm, 01/04/22 13:15:00 EDT, Height, 113.9, [...] Name: Candis CARDENAS, Kaiden Villalta Address: Address: [address] [place] [address] Adult [facility] Pediatric Medicine [place], [place] [address]
--- OUTSIDE RECORDS SUMMARY | 2022-12-30 08:27 | XMS_ITS | Continuity of Care Document ---
Author Name Unknown Organization [facility] Address [address] [place] [address]- Care Team Providers Care Resistance Brazer Name Role Phone Candis CARDENAS, Kaiden Villalta Primary Care Physician Encounter [facility] [place] Date(s): 11/10/21 - 12/10/21 [facility] [address] [place], [place] [address] Allergies, Adverse [...] 8.5 Gm,0 Refills, Maintenance, 12/08/21 20:52:00 EDT, [facility] #[id number], 2 puffs Inhalation Every 4 hours,PRN: NEEDED FOR WHEEZING/cough/shortness... Start Date: 12/08/21 Status: Ordered albuterol 0.083% inhalation solution 3 mL = 2.5 mg, Inhalation, Every 4 hours, PRN for wheezing/cough/shortness of breath, # 25 each, 0 Refills, Maintenance, 10/14/21 22:10:00 EDT, Solution, [id number], Partial fill upon patient request if the prescription is for a sched... Start Date: 10/14/21 Status: Ordered benzonatate 100 mg oral capsule 2 capsule, By Mouth, 3 times a day, PRN NEEDED FOR COUGH, # 30 capsule, 1 Refills, Physician Stop 11/10/22 14:46:00 EDT, 03/19/22 17:38:00 EST, [facility] #[id number], 153, cm, 10/08/21 13:23:00 EDT, Height, 113.9, kg, 10/08/21 13:23:00 EDT, D... Start Date: 03/19/22 Stop Date: 11/10/22 Status: Ordered benzonatate 100 mg oral capsule 2 capsule, By Mouth, 3 times a day, PRN NEEDED FOR COUGH, # 30 capsule, 1 Refills, Physician Stop 12/10/22 15:43:00 EDT, 11/10/22 14:46:00 EDT, [facility] #[id number], 153, cm, 10/08/21 13:23:00 EDT, Height, 113.9, [...] Maintenance, 11/18/20 21:02:00 EDT, Tablet, [facility]/pharmacy #[id number], Partial fill upon patient... Start Date: 11/18/20 Status: Ordered diclofenac 1% topical gel = 1 Gm, Topically, 4 times a day, FOR PAIN., # 100 Gm, 1 Refills, [id number], 30, APPLY 1 GM TOPICALLY 4 TIMES A DAY FOR PAIN, 153, cm, 06/07/21 11:07:00 EST, Height, 105, kg, 05/31/21 15:15:00 EST, Dry Weight Start Date: 08/05/21 Status: Ordered Dilaudid 2 mg oral tablet 1 tablet = 2 mg, By Mouth, 2 times a day, PRN Pain , Severe, checked masspat, # 28 tablet, 0 Refills, Maintenance, 12/07/21 13:30:00 EDT, Tablet, [facility] #[id number], Partial fill upon patient request if the prescription is for a schedule II o... Start Date: 12/07/21 Status: Ordered Estrace Vaginal Cream 0.1 mg/g = 2 Gm, Vaginally, Daily at bedtime, 2g PV daily at bedtime x 2 weeks, then 1g PV 1-3x per week, # 42.5 Gm, 5 Refills, Maintenance, 11/09/21 11:17:00 EDT, [facility] #[id number], Partial fill upon patient request if the prescription is for a sche... Start Date: 11/09/21 Status: Ordered estradiol 0.0375 mg/24 hours twice weekly transdermal film, extended release See Instructions, 1 patch Topically, change patch twice a week, # 1 pack/packet, 1 Refills, Maintenance, 12/07/21 10:42:00 EDT, [facility] #[id number], Partial fill upon patient request if the prescription is for a schedule II opioid drug., 153,... Start Date: 12/07/21 Status: Ordered gabapentin 800 mg oral tablet See Instructions, TAKE 1 TABLET BY MOUTH FOUR TIMES DAILY, # 360 tablet, 0 Refills, [facility] #[id number], 153, cm, 10/08/21 13:23:00 EDT, Height, 113.9, [...] capsule, 1 Refills, Maintenance, 12/08/21 10:10:00 EDT, [facility] #[id number], 153, cm, 10/08/21 13:23:00 EDT, Height, 113.9,kg, [...] 1 Refills, Maintenance, 07/30/21 12:25:00 EDT, Tablet, [facility] #[id number], Partial fill upon patient request if the prescription is for a schedule II opioid drug... Start Date: 07/30/21 Status: Ordered levothyroxine 0.1 mg oral tablet 1 tablet = 100 mcg, By Mouth, Daily, dose increase, # 90 tablet, 0 Refills, Maintenance, 11/01/21 16:08:00 EDT, [facility] #[id number], Please discontinue 88ug, 153, cm, 10/08/21 13:23:00 [...] 1 Refills, Maintenance, 11/30/21 15:44:00 EDT, Tablet, [facility] #[id number], [place]... Start Date: 11/30/21 Status: Ordered lidocaine 2% topical gel with applicator 5 mL = 0.1 Gm, Topically, 2 times a day, PRN Pain , Moderate, # 60 mL, 2 Refills, Soft Stop, 09/24/21 16:43:00 EDT, Gel, [facility] #[id number], Partial fill upon patient request if the prescription is for a schedule II opioid drug., 153, cm, ... Start Date: 09/24/21 Status: Ordered meloxicam 15 mg oral tablet 1/2 TO 1 TABLET, By Mouth, Daily, PRN NEEDED FOR MODERATE PAIN, # 30 tablet, 1 Refills, 229:04:00 EDT, [facility] #[id number], 153, cm, 10/08/21 13:23:00 EDT, Height, 113.9, [...] 90 capsule, 0 Refills, 09/27/21 14:31:00 EDT, [facility] #[id number], 153, cm, 08/10/21 11:19:00 EDT, Height, 105, kg, 05/31/21 15:15:00 EST, Dry Weight Start Date: 09/27/21 Status: Ordered ondansetron 4 mg oral tablet 1 tablet = 4 mg, By Mouth, Every 8 hours, PRN Nausea & Vomiting, # 30 tablet, 1 Refills, Maintenance, 11/10/21 14:47:00 EDT, [facility] #[id number], 153, cm, 10/08/21 13:23:00 EDT, Height, 113.9, kg, 10/08/21 13:23:00 EDT, Dry Weight Start Date: 11/10/21 Status: Ordered oxybutynin 5 mg oral tablet 1 tablet, By Mouth, 3 times a day, # 270 tablet, 1 Refills, [facility] [id number], 153, cm, 08/10/21 11:19:00 EDT, Height, 105, kg, 05/31/21 15:15:00 EST, Dry Weight Start Date: 09/09/21 Status: Ordered Paxlovid 150 mg-100 mg (150 mg-100 mg Dose) oral tablet See Instructions, 2 tabs nirmatrelvir PO and 1 tab ritonavir PO twice daily for 5 days, # 30 tablet, 0 Refills, Acute 12/15/21 15:37:00 EDT, 12/10/21 15:36:00 EDT, [id number], Partial fill upon patient request if the [...] Personnel Name: Candis CARDENAS, Kaiden Villalta Address: [address] [place] [address] Adult & Pediatric [place], [place] [address]
--- OUTSIDE RECORDS SUMMARY | 2022-12-30 08:27 | XMS_ITS | Continuity of Care Document ---
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 [place] Date(s): 04/27/22 - 08/18/[address] [address]- Attending Physician: Kaiden Chirinos MD Admitting Physician: Kaiden Chirinos MD Allergies, Adverse Reactions, [...] 8.5 Gm,0 Refills, Maintenance, 12/22/21 10:40:00 EDT, [facility] #[id number], 2 puffs Inhalation Every 4 hours,PRN: NEEDED FOR WHEEZING/cough/shortness... Start Date: 12/22/21 Status: Ordered albuterol 0.083% inhalation solution 3 mL = 2.5 mg, Inhalation, Every 4 hours, PRN for wheezing/cough/shortness of breath, # 25 each, 0 Refills, Maintenance, 06/29/22 13:08:00 EDT, Solution, [facility] #[id number], Partial fill upon patient request if the prescription is for a sched... Start Date: 06/29/22 Status: Ordered Gilman Saline Mist 0.65% nasal spray 2 sprays, Nares, Both, 4 times a day, # 1 each, 0 Refills, Maintenance, 02/04/22 13:32:00 EDT, [facility] #[id number], Partial fill upon patient request if the [...] tablet, 0 Refills, Maintenance, 12/27/21 13:43:00 EDT, [facility] #[id number], 153, cm, 10/08/21 13:23:00 EDT, Height, 113.9, kg, 10/08/21 13:23:00EDT, Dry Weight Start Date: 12/27/21 Status: Ordered chlorhexidine 2% topical liquid See Instructions, 1 application to bilateral forearms twice weekly, # 120 mL, 3 Refills, Soft Stop,06/17/22 11:06:00 EST, Liquid, [facility] #[id number], Partial fill upon patient request if the prescription is for a schedule II opioid drug., 1... Start Date: 06/17/22 Status: Ordered chlorhexidine 4% topical soap See Instructions, apply topically twice weekly to skin on forearms, # 120 mL, 2 Refills, Soft Stop,06/17/22 16:03:00 EST, [facility] #[id number], Partial fill upon patient request if the [...] FOR PAIN., # 100 Gm, 1 Refills, [facility] [id number], 30, APPLY 1 GM TOPICALLY 4 TIMES A DAY FOR PAIN, 153, cm, 06/07/21 11:07:00 EST, Height, 105, kg, 05/31/21 15:15:00 EST, Dry Weight Start Date: 08/05/21 Status: Ordered Dilaudid 2 mg oral tablet 1 tablet = 2 mg, By Mouth, 2 times a day, PRN Pain , Severe, checked masspat, # 56 tablet, 0 Refills, Maintenance, 07/28/22 13:10:00 EDT, Tablet, [facility] #[id number], Partial fill upon patient request if the prescription is for a schedule II o... Start Date: 07/28/22 Status: Ordered Estrace Vaginal Cream 0.1 mg/g = 2 Gm, Vaginally, Daily at bedtime, 2g PV daily at bedtime x 2 weeks, then 1g PV 1-3x per week, # 42.5 Gm, 5 Refills, Maintenance, 11/09/21 11:17:00 EDT, [facility] #[id number], Partial fill upon patient request if the prescription is for a sche... Start Date: 11/09/21 Status: Ordered Estradiol Patch 0.0375 mg/24 hours twice weekly transdermal film, extended release See Instructions, APPLY 1 PATCH TOPICALLY TWICE WEEKLY DIRECTED, # 8 patch, 6 Refills, Maintenance, 03/23/22 16:10:00 EST, [facility] #[id number], 28, APPLY 1 PATCH TOPICALLY TWICE WEEKLY DIRECTED, 153, cm, 01/04/22 13:15:00 EDT, Height, 11... Start Date: 03/23/22 Status: Ordered fluconazole 150 mg oral tablet 1 tablet = 150 mg, By Mouth, Once, PRN vaginal yeast infection, # 1 tablet, 0 Refills, Soft Stop, 03/15/22 10:42:00 EST, Tablet, [facility] #[id number], Partial fill upon patient request if the prescription is for a schedule II opioid drug., 153,... Start Date: 03/15/22 Status: Ordered fluticasone 50 mcg/inh nasal spray See Instructions, SHAKE LIQUID AND USE 1 SPRAY IN EACH NOSTRIL TWICE DAILY, # 16 Gm, 1 Refills, Maintenance, 05/18/22 13:57:00 EST, [facility] #[id number], 30, SHAKE LIQUID AND USE 1 SPRAY IN EACH NOSTRIL TWICE DAILY, 153, cm, 04/25/22 16:23:00 E... Start Date: 05/18/22 Status: Ordered gabapentin 800 mg oral tablet 1 tablet, By Mouth, 4 times a day, # 360 tablet, 1 Refills, Maintenance, 04/19/22 12:59:00 EST, [facility] #[id number], 153, cm, 01/04/22 13:15:00 EDT, Height, 113.9, [...] capsule, 1 Refills, Maintenance, 07/18/22 9:45:00 EDT, [facility] #[id number], 153, cm, 06/17/22 10:53:00 EST, Height, 109, [...] 1 Refills, Maintenance, 04/28/22 13:51:00 EST, Tablet, [facility] #[id number], Partial fill upon patient request if the prescription is for a schedule II opioid drug., 153, cm... Start Date: 04/28/22 Status: Ordered lidocaine 4% topical cream 1 application, Topically, 3 times a day, PRN Pain , Mild, # 30 Gm, 1 Refills, Maintenance, 06/24/2315:24:00 EST, Cream, [facility] #[id number], Partial fill upon patient request if the prescription is for a schedule II opioid drug., 1 applicatio... Start Date: 06/23/22 Status: Ordered meloxicam 15 mg oral tablet 1/2 TO 1 TABLET, By Mouth, Daily, PRN NEEDED FOR MODERATE PAIN, # 30 tablet, 5 Refills, Maintenance, 01/10/22 20:40:00 EDT, [facility] #[id number], 153, cm, 01/04/22 13:15:00 EDT, Height, 113.9, [...] capsule, 1 Refills, Maintenance, 07/26/22 14:24:00 EDT, [facility] #[id number], 153, cm, 06/17/22 10:53:00 EST, Height, 109, kg, 06/17/22 10:53:00 EST, Dry Weight Start Date: 07/26/22 Status: Ordered ondansetron 4 mg oral tablet 1 tablet, By Mouth, Every 8 hours, PRN NEEDED FOR NAUSEA OR VOMITING, # 30 tablet, 1 Refills, Maintenance, 06/14/22 10:29:00 EST, [facility] #[id number], 153, cm, 06/08/22 9:37:00 EST, Height, 109, kg, 04/25/22 15:54:00 EST, Dry Weight Start Date: 06/14/22 Status: Ordered oxybutynin 5 mg oral tablet 1 tablet, By Mouth, 3 times a day, # 270 tablet, 0 Refills, Maintenance, 07/05/22 8:13:00 EDT, [facility] #[id number], 153, cm, 06/17/22 10:53:00 EST, Height, 109, [...] 07/01/22 14:21:00 EDT, Route to Pharmacy Electronically, [facility] #[id number], Partial fill upon patient request if the... Start Date: 07/01/22 Status: Ordered triamcinolone 0.1% topical cream 1 application, Topically, 3 times a day, PRN arm rash, # 30 Gm, 1 Refills, Acute 06/08/23 9:53:00 EST, 06/08/22 9:53:00 EST, Cream, [facility] #[id number], Partial fill upon patient request if the [...] Physician Member Role: PCP Address: Address: [address] [place] [address] Adult & [place] [address]- Care Team Related Persons Name: AGUILAR RODOLFO Address: home [address] [facility] [address] [place] [id number] Name: CHIARA TEE Address: home [address] [place] [address] [address] [place] [address]
--- OUTSIDE RECORDS SUMMARY | 2022-12-30 08:27 | XMS_ITS | Continuity of Care Document ---
Author Name Unknown Organization 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 [address] [place] [address]- Encounter Diagnosis Cough(Discharge Diagnosis) - 11/18/21 Attending Physician: Rachel Simpson MD Allergies, Adverse [...] 8.5 Gm,0 Refills, Maintenance, 09/28/21 16:57:00 EDT, [facility] #[id number], 2 puffs Inhalation Every 4 hours,PRN: NEEDED FOR WHEEZING/cough/shortness... Start Date: 09/28/21 Status: Ordered albuterol 0.083% inhalation solution 3 mL = 2.5 mg, Inhalation, Every 4 hours, PRN for wheezing/cough/shortness of breath, # 25 each, 0 Refills, Maintenance, 10/14/21 22:10:00 EDT, Solution, [facility] #[id number], Partial fill upon patient request if the prescription is for a sched... Start Date: 10/14/21 Status: Ordered Azithromycin 5 Day Dose Pack 250 mg oral tablet See Instructions, Take 2 tablets on day one. Take 1 tablet daily on Days 2-5., # 6 tablet, 0 Refills, Maintenance, 11/18/21 11:47:00 EDT, Tablet, [facility] #[id number], Partial fill upon patient request if the prescription is for a schedule II... Start Date: 11/18/21 Status: Ordered benzonatate 100 mg oral capsule 2 capsule, By Mouth, 3 times a day, PRN NEEDED FOR COUGH, # 30 capsule, 1 Refills, Physician Stop 11/10/22 14:46:00 EDT, 03/19/22 17:38:00 EST, [facility] #[id number], 153, cm, 10/08/21 13:23:00 EDT, Height, 113.9, kg, 10/08/21 13:23:00 EDT, D... Start Date: 03/19/22 Stop Date: 11/10/22 Status: Ordered budesonide 1 mg/2 mL inhalation suspension 2 mL = 1 mg, Neb, 2 times a day, rinse mouth out after use, # 120 mL, 1 Refills, Maintenance, 10/25/21 18:30:00 EDT, Suspension, [facility] #[id number], Partial fill upon patient request if the [...] 0 Refills, Maintenance, 11/18/20 21:02:00 EDT, Tablet, [facility]/pharmacy #[id number], Partial fill upon patient... Start Date: 11/18/20 Status: Ordered diclofenac 1% topical gel = 1 Gm, Topically, 4 times a day, FOR PAIN., # 100 Gm, 1 Refills, [facility] 65997, 30, APPLY 1 GM TOPICALLY 4 TIMES A DAY FOR PAIN, 153, cm, 06/07/21 11:07:00 EST, Height, 105, kg, 05/31/21 15:15:00 EST, Dry Weight Start Date: 08/05/21 Status: Ordered Dilaudid 2 mg oral tablet 1 tablet = 2 mg, By Mouth, 2 times a day, PRN Pain , Severe, checked masspat, # 28 tablet, 0 Refills, Maintenance, 11/23/21 16:09:00 EDT, Tablet, [facility] #[id number], Partial fill upon patient request if the prescription is for a schedule II o... Start Date: 11/23/21 Status: Ordered Estrace Vaginal Cream 0.1 mg/g = 2 Gm, Vaginally, Daily at bedtime, 2g PV daily at bedtime x 2 weeks, then 1g PV 1-3x per week, # 42.5 Gm, 5 Refills, Maintenance, 11/09/21 11:17:00 EDT, [facility] #[id number], Partial fill upon patient request if the prescription is for a sche... Start Date: 11/09/21 Status: Ordered gabapentin 800 mg oral tablet See Instructions, TAKE 1 TABLET BY MOUTH FOUR TIMES DAILY, # 360 tablet, 0 Refills, [facility] #[id number], 153, cm, 10/08/21 13:23:00 EDT, Height, 113.9, [...] capsule, 1 Refills, Maintenance, 09/28/21 16:58:00 EDT, [facility] #[id number], 153, cm, 08/10/21 11:19:00 EDT, Height, 105, [...] 1 Refills, Maintenance, 07/30/21 12:25:00 EDT, Tablet, [facility] #[id number], Partial fill upon patient request if the prescription is for a schedule II opioid drug... Start Date: 07/30/21 Status: Ordered levothyroxine 0.1 mg oral tablet 1 tablet = 100 mcg, By Mouth, Daily, dose increase, # 90 tablet, 0 Refills, Maintenance, 11/01/21 16:08:00 EDT, [facility] #[id number], Please discontinue 88ug, 153, cm, 10/08/21 13:23:00 EDT, Height, 113.9, kg, 10/08/21 13:23:00 EDT, Dry Weight Start Date: 11/01/21 Status: Ordered lidocaine 2% topical gel with applicator 5 mL = 0.1 Gm, Topically, 2 times a day, PRN Pain , Moderate, # 60 mL, 2 Refills, Soft Stop, 09/24/21 16:43:00 EDT, Gel, [facility] #[id number], Partial fill upon patient request if the prescription is for a schedule II opioid drug., 153, cm, ... Start Date: 09/24/21 Status: Ordered meloxicam 15 mg oral tablet 1/2 TO 1 TABLET, By Mouth, Daily, PRN NEEDED FOR MODERATE PAIN, # 30 tablet, 1 Refills, :04:00 EDT, [facility] #[id number], 153, cm, 10/08/21 13:23:00 EDT, Height, 113.9, [...] 90 capsule, 0 Refills, 09/27/21 14:31:00 EDT, [facility] #[id number], 153, cm, 08/10/21 11:19:00 EDT, Height, 105, kg, 05/31/21 15:15:00 EST, Dry Weight Start Date: 09/27/21 Status: Ordered ondansetron 4 mg oral tablet 1 tablet = 4 mg, By Mouth, Every 8 hours, PRN Nausea & Vomiting, # 30 tablet, 1 Refills, Maintenance, 11/10/21 14:47:00 EDT, [facility] #[id number], 153, cm, 10/08/21 13:23:00 EDT, Height, 113.9, kg, 10/08/21 13:23:00 EDT, Dry Weight Start Date: 11/10/21 Status: Ordered oxybutynin 5 mg oral tablet 1 tablet, By Mouth, 3 times a day, # 270 tablet, 1 Refills, [id number], 153, cm, 08/10/21 11:19:00 EDT, Height, 105, [...] 1 Refills, Maintenance, 07/30/21 12:22:00 EDT, Tablet, [facility] #[id number], Partial fill upon patient request if the [...] Clini [facility] Service Informant Cough Discharge Diagnosis 11/18/21 Social History Social History Type Response Smoking Status Former smoker, quit more than 30 days ago;Never entered on: 11/09/21 Sex
--- OUTSIDE RECORDS SUMMARY | 2022-12-30 08:27 | XMS_ITS | Continuity of Care Document ---
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 Refills 0, Maintenance, Spasm, 01/31/19 21:47:23 EDT, Route to Pharmacy Electronically, [id number], [facility]/pharmacy #[id number] Start Date: 01/31/19 Stop Date: 02/14/19 [...]
--- OUTSIDE RECORDS SUMMARY | 2022-12-30 08:27 | XMS_ITS | Continuity of Care Document ---
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 Start Date: 12/22/21 Status: Ordered albuterol 0.083% inhalation solution 3 mL = 2.5 mg, Inhalation, Every 4 hours, PRN for wheezing/cough/shortness of breath, # 25 each, 0 Refills, Maintenance, 06/29/22 13:08:00 EDT, Solution, [facility] #[id number], Partial fill upon patient request if the prescription is for a sched... Start Date: 06/29/22 Status: Ordered Loop Saline Mist 0.65% nasal spray 2 sprays, Nares, Both, 4 times a day, # 1 each, 0 Refills, Maintenance, 02/04/22 13:32:00 EDT, [facility] #[id number], Partial fill upon patient request if the [...] tablet, 0 Refills, Maintenance, 12/27/21 13:43:00 EDT, [facility] #[id number], 153, cm, 10/08/21 13:23:00 EDT, Height, 113.9, kg, 10/08/21 13:23:00EDT, Dry Weight Start Date: 12/27/21 Status: Ordered chlorhexidine 2% topical liquid See Instructions, 1 application to bilateral forearms twice weekly, # 120 mL, 3 Refills, Soft Stop,06/17/22 11:06:00 EST, Liquid, [facility] #[id number], Partial fill upon patient request if the prescription is for a schedule II opioid drug., 1... Start Date: 06/17/22 Status: Ordered chlorhexidine 4% topical soap See Instructions, apply topically twice weekly to skin on forearms, # 120 mL, 2 Refills, Soft Stop,06/17/22 16:03:00 EST, [facility] #[id number], Partial fill upon patient request if the [...] FOR PAIN., # 100 Gm, 1 Refills, [id number], 30, APPLY 1 GM TOPICALLY 4 TIMES A DAY FOR PAIN, 153, cm, 06/07/21 11:07:00 EST, Height, 105, kg, 05/31/21 15:15:00 EST, Dry Weight Start Date: 08/05/21 Status: Ordered Dilaudid 2 mg oral tablet 1 tablet = 2 mg, By Mouth, 2 times a day, PRN Pain , Severe, checked masspat, # 56 tablet, 0 Refills, Maintenance, 07/28/22 13:10:00 EDT, Tablet, [facility] #[id number], Partial fill upon patient request if the prescription is for a schedule II o... Start Date: 07/28/22 Status: Ordered Estrace Vaginal Cream 0.1 mg/g = 2 Gm, Vaginally, Daily at bedtime, 2g PV daily at bedtime x 2 weeks, then 1g PV 1-3x per week, # 42.5 Gm, 5 Refills, Maintenance, 11/09/21 11:17:00 EDT, [facility] #[id number], Partial fill upon patient request if the prescription is for a sche... Start Date: 11/09/21 Status: Ordered Estradiol Patch 0.0375 mg/24 hours twice weekly transdermal film, extended release See Instructions, APPLY 1 PATCH TOPICALLY TWICE WEEKLY DIRECTED, # 8 patch, 6 Refills, Maintenance, 03/23/22 16:10:00 EST, [facility] #[id number], 28, APPLY 1 PATCH TOPICALLY TWICE WEEKLY DIRECTED, 153, cm, 01/04/22 13:15:00 EDT, Height, 11... Start Date: 03/23/22 Status: Ordered fluconazole 150 mg oral tablet 1 tablet = 150 mg, By Mouth, Once, PRN vaginal yeast infection, # 1 tablet, 0 Refills, Soft Stop, 03/15/22 10:42:00 EST, Tablet, [facility] #[id number], Partial fill upon patient request if the prescription is for a schedule II opioid drug., 153,... Start Date: 03/15/22 Status: Ordered fluticasone 50 mcg/inh nasal spray See Instructions, SHAKE LIQUID AND USE 1 SPRAY IN EACH NOSTRIL TWICE DAILY, # 16 Gm, 1 Refills, Maintenance, 05/18/22 13:57:00 EST, [facility] #[id number], 30, SHAKE LIQUID AND USE 1 SPRAY IN EACH NOSTRIL TWICE DAILY, 153, cm, 04/25/22 16:23:00 E... Start Date: 05/18/22 Status: Ordered gabapentin 800 mg oral tablet 1 tablet, By Mouth, 4 times a day, # 360 tablet, 1 Refills, Maintenance, 04/19/22 12:59:00 EST, [facility] #[id number], 153, cm, 01/04/22 13:15:00 EDT, Height, 113.9, [...] capsule, 1 Refills, Maintenance, 07/18/22 9:45:00 EDT, [facility] #[id number], 153, cm, 06/17/22 10:53:00 EST, Height, 109, [...] 1 Refills, Maintenance, 04/28/22 13:51:00 EST, Tablet, [facility] #[id number], Partial fill upon patient request if the prescription is for a schedule II opioid drug., 153, cm... Start Date: 04/28/22 Status: Ordered lidocaine 4% topical cream 1 application, Topically, 3 times a day, PRN Pain , Mild, # 30 Gm, 1 Refills, Maintenance, 06/24/2315:24:00 EST, Cream, [facility] #[id number], Partial fill upon patient request if the prescription is for a schedule II opioid drug., 1 applicatio... Start Date: 06/23/22 Status: Ordered meloxicam 15 mg oral tablet 1/2 TO 1 TABLET, By Mouth, Daily, PRN NEEDED FOR MODERATE PAIN, # 30 tablet, 5 Refills, Maintenance, 01/10/22 20:40:00 EDT, [facility] #[id number], 153, cm, 01/04/22 13:15:00 EDT, Height, 113.9, [...] capsule, 1 Refills, Maintenance, 07/26/22 14:24:00 EDT, [facility] #[id number], 153, cm, 06/17/22 10:53:00 EST, Height, 109, kg, 06/17/22 10:53:00 EST, Dry Weight Start Date: 07/26/22 Status: Ordered ondansetron 4 mg oral tablet 1 tablet, By Mouth, Every 8 hours, PRN NEEDED FOR NAUSEA OR VOMITING, # 30 tablet, 1 Refills, Maintenance, 06/14/22 10:29:00 EST, [facility] #[id number], 153, cm, 06/08/22 9:37:00 EST, Height, 109, kg, 04/25/22 15:54:00 EST, Dry Weight Start Date: 06/14/22 Status: Ordered oxybutynin 5 mg oral tablet 1 tablet, By Mouth, 3 times a day, # 270 tablet, 0 Refills, Maintenance, 07/05/22 8:13:00 EDT, [facility] #[id number], 153, cm, 06/17/22 10:53:00 EST, Height, 109, [...] 07/01/22 14:21:00 EDT, Route to Pharmacy Electronically, [facility] #[id number], Partial fill upon patient request if the... Start Date: 07/01/22 Status: Ordered triamcinolone 0.1% topical cream 1 application, Topically, 3 times a day, PRN arm rash, # 30 Gm, 1 Refills, Acute 06/08/23 9:53:00 EST, 06/08/22 9:53:00 EST, Cream, [facility] #[id number], Partial fill upon patient request if the [...] Care Physician Member Role: PCP Address: Address: [address] [place] [address] Adult [place] [address]- Care Team Related Persons Name: RODOLFO SHEIKH Address: home [address] [facility] [address] [place] [address] Name: CHIARA TEE Address: home [address] [place] [address] [address] [place] [address]
--- OUTSIDE RECORDS SUMMARY | 2022-12-30 08:27 | XMS_ITS | Continuity of Care Document ---
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 Name Role Phone Kaiden Chirinos MD Primary Care Physician Encounter [facility] [place] Date(s): 09/07/20 - 09/14/20 [facility] [address] [place], [place] [address] Encounter Diagnosis Post traumatic stress disorder (PTSD)(Discharge Diagnosis) - 09/07/20 Swelling of face(Discharge Diagnosis) - 09/07/20 Chronic neck pain(Discharge Diagnosis) - 09/07/20 Adult night terrors(Discharge Diagnosis) - 09/07/20 Anxiety(Discharge Diagnosis) - 09/07/20 Chronic pain of right knee(Discharge Diagnosis) - 09/07/20 Major depressive disorder, recurrent episode, moderate(Discharge Diagnosis) - 09/07/20 Insomnia(Discharge Diagnosis) - 09/07/20 Attending Physician: Kaiden Chirinos MD Allergies, Adverse Reactions, Alerts Substance Reaction Severity Status morphine Active Adhesive Bandage Active Percocet 7.5/325 Active Medications amitriptyline 10 mg oral tablet 10 mg, 1, tablet, By Mouth, Daily at bedtime, # 90 tablet, Refills 1, Tot. Refills 1, Maintenance, 09/07/20 11:05:00 EDT, Route to Pharmacy Electronically, [facility]/pharmacy #[id number], Partial fill upon patient request if the prescription is for a schedule II... Start Date: 09/07/20 Status: Ordered baclofen 10 mg oral tablet 10 mg, 1, tablet, By Mouth, 3 times a day, PRN, # 30 tablet, Refills 0, Tot. Refills 0, Maintenance, Spasm, 01/31/19 21:47:23 EDT, Route to Pharmacy Electronically, [id number], [facility]/pharmacy #[id number] Start Date: 01/31/19 Stop Date: 02/14/19 Status: Ordered clonazePAM 0.5 mg oral tablet 1 tablet = 0.5 mg, By Mouth, 4 times a day, PRN Anxiety, 0 Refills, Maintenance, 04/07/19 16:13:00 EST, Tablet [...] 0 Refills, Maintenance, 09/01/20 20:10:00 EDT, Aerosol, [facility]/pharmacy #[id number], Partial fill upon patient [...] with sertraline 100mg tab in morning for [id number] per day, # 90 tablet, 1 Refills, Maintenance, 09/07/20 11:02:00 EDT, Tablet, [facility][id number], Partial fill upon patient request if [...] Effective Dates Health Status Clinical Service Informant Adult night terrors Discharge Diagnosis 09/07/20 Anxiety Discharge Diagnosis 09/07/20 Chronic neck pain Discharge Diagnosis 09/07/20 Chronic pain of right knee Discharge Diagnosis 09/07/20 Insomnia Discharge Diagnosis 09/07/20 Major depressive disorder, recurrent episode, moderate Discharge Diagnosis 09/07/20 Post traumatic stress disorder (PTSD) Discharge Diagnosis 09/07/20 Swelling of face Discharge Diagnosis 09/07/20 Procedures Procedure Date Related Diagnosis Body Site Status Cholecystectomy Completed Hysterectomy Completed Myringotomy and insertion of T tube 1 Completed 1x6 Vital Signs Most recent to oldest [Reference Range]: 1 2 Height 160 cm (09/07/20 1:05 PM) 160 cm (09/07/20 10:37 AM) Weight 107 kg (09/07/20 10:37 AM) Oxygen Saturation [94-100 %] 98 % (09/07/20 10:37 AM) Pulse Rate [55-90 bpm] 77 bpm (09/07/20 10:37 AM) Body Mass Index [18.5-24.99] 41.8 *>HHI* (09/07/20 10:37 AM) Blood Pressure [90-138/55-84 mm Hg] 108/ 78mm Hg (09/07/20 1:05 PM) 170/89mm Hg *H* (09/07/20 10:37 AM) Temperature [96.8-100.4 DegF] 97.6 DegF (09/07/20 10:37 AM) Mode of Delivery (Oxygen) Room air (09/07/20 10:37 AM) Blood pressure sites Arm, left (09/07/20 10:37 AM) Temperature Route Temporal (09/07/20 10:37 AM) Dry Weight 107 kg (09/07/20 10:37 AM) Weight Obtained Via Standing scale (09/07/20 10:37 AM) Social History Social History Type Response Smoking Status Former smoker, quit more than 30 days ago;Never entered on: 04/07/19 Sex
--- OUTSIDE RECORDS SUMMARY | 2022-12-30 08:27 | XMS_ITS | Continuity of Care Document ---
Author Name Unknown Organization [facility] Address [address] [place] [address]- Care Team Providers Care Senior Javascript Developer Name Role Phone Candis CARDENAS, Kaiden Villalta Primary Care Physician [phone] Encounter [facility] [place] Date(s): 06/10/21 - 07/10/21 [facility] [address] [place], [place] [address] Allergies, Adverse Reactions, Alerts [...] # 8.5 each, 0 Refills, [id number], 20, INHALE 2 PUFFS BY MOUTH EVERY 4 HOURS NEEDED FOR WHEEZING, 160, cm, 03/30/21 10:47:00 EST, Height, 104.6, kg, 12/04/20 10:52:00 EDT, Dry Weight Start Date: 04/28/21 Status: Ordered amitriptyline 10 mg oral tablet 10 mg, 1, tablet, By Mouth, Daily at bedtime, # 90 tablet, Refills 1, Tot. Refills 1, Maintenance, 12/24/20 16:08:00 EDT, Route to Pharmacy Electronically, [facility]/pharmacy #[id number], Partial fill upon patient request if the prescription is for a schedule II... Start Date: 12/24/20 Status: Ordered baclofen 10 mg oral tablet 10 mg, 1, tablet, By Mouth, 3 times a day, PRN, # 30 tablet, Refills 0, Tot. Refills 0, Maintenance, Spasm, 01/31/19 21:47:23 EDT, Route to Pharmacy Electronically, [id number], [facility]/pharmacy #[id number] Start Date: 01/31/19 Stop Date: 02/14/19 Status: Ordered benzonatate 100 mg oral capsule 2 capsule, By Mouth, 3 times a day, PRN NEEDED FOR COUGH, # 30 capsule, 1 Refills, Physician Stop 03/19/22 17:38:00 EST, 02/19/22 16:55:00 EDT, [facility]/pharmacy #[id number], 160, cm, 12/04/20 10:52:00 EDT, Height, 104.6, kg, 12/04/20 10:52:00 EDT, Dry Weight Start Date: 02/19/22 Stop Date: 03/19/22 Status: Ordered benzonatate 100 mg oral capsule 2 capsule, By Mouth, 3 times a day, PRN NEEDED FOR COUGH, # 30 capsule, 1 Refills, Physician Stop 02/19/22 16:55:00 EDT, 02/19/21 16:54:00 EDT, [facility]/pharmacy #[id number], 160, cm, 12/04/20 10:52:00 [...] 06/30/22 10:07:00 EDT, 06/30/21 10:06:00 EDT, Tablet, [facility]/pharmacy #[id number], Partial fill upon patient request if the prescription is for a schedule II opioid dr... Start Date: 06/30/21 Stop Date: 06/30/22 Status: Ordered Famotidine 0 Refills, Maintenance, 04/07/19 16:11:00 EST Start Date: 04/07/19 Status: Ordered gabapentin 800 mg oral tablet 1 tablet, By Mouth, 4 times a day, # 360 tablet, 1 Refills, [facility] [id number], 160, cm, 03/30/21 10:47:00 EST, Height, 104.6, [...] 1 Refills, Maintenance, 05/14/21 15:23:00 EST, Tablet, [facility]/pharmacy #[id number], Partial fill upon patient request if the prescription is for a schedule II opioid drug., 160, c... Start Date: 05/14/21 Status: Ordered omeprazole 20 mg oral enteric coated capsule 1 capsule, By Mouth, Daily, # 90 capsule, 1 Refills, [facility] [id number], 160, cm, 03/30/21 10:47:00 EST, Height, 104.6, kg, 12/04/20 10:52:00 EDT, Dry Weight Start Date: 03/31/21 Status: Ordered ondansetron 4 mg oral tablet See Instructions, TAKE 1 TABLET BY MOUTH EVERY 8 HOURS NEEDED FOR NAUSEA AND VOMITING, # 15 tablet, 1 Refills, Physician Stop 07/12/21 15:23:00 EDT, 05/14/21 15:22:00 EST, [facility]/pharmacy #[id number], 160,cm, 03/30/21 10:47:00 EST, Height, 104.6, kg, 12/04... Start Date: 05/14/21 Stop Date: 07/12/21 Status: Ordered oxybutynin 5 mg oral tablet 1 tablet, By Mouth, 3 times a day, dose increase, # 270 tablet, 1 Refills, Maintenance, 03/19/21 17:40:00 EST, [facility]/pharmacy #[id number], 160, cm, 12/04/20 10:52:00 [...]
--- OUTSIDE RECORDS SUMMARY | 2022-12-30 08:27 | XMS_ITS | Continuity of Care Document ---
Author Name Unknown Organization [facility] Address [address] [place] [address]- Care Team Providers Care Outbound Sales Agent Name Role Phone Kaiden Chirinos MD Primary Care Physician En[place] [facility] [place] 09/29/21 - 10/29/21 [facility] [address] [place], [place] [address] Allergies, Adverse Reactions, Alerts [...] 8.5 Gm,0 Refills, Maintenance, 09/28/21 16:57:00 EDT, [facility] #[id number], 2 puffs Inhalation Every 4 hours,PRN: NEEDED FOR WHEEZING/cough/shortness... Start Date: 09/28/21 Status: Ordered albuterol 0.083% inhalation solution 3 mL = 2.5 mg, Inhalation, Every 4 hours, PRN for wheezing/cough/shortness of breath, # 25 each, 0 Refills, Maintenance, 10/14/21 22:10:00 EDT, Solution, [facility] #[id number], Partial fill upon patient request if the prescription is for a sched... Start Date: 10/14/21 Status: Ordered benzonatate 100 mg oral capsule 2 capsule, By Mouth, 3 times a day, PRN NEEDED FOR COUGH, # 30 capsule, 1 Refills, Physician Stop 03/19/22 17:38:00 EST, 02/19/22 16:55:00 EDT, [facility]/pharmacy #[id number], 160, cm, 12/04/20 10:52:00 EDT, Height, 104.6, kg, 12/04/20 10:52:00 EDT, Dry Weight Start Date: 02/19/22 Stop Date: 03/19/22 Status: Ordered benzonatate 100 mg oral capsule 2 capsule, By Mouth, 3 times a day, PRN NEEDED FOR COUGH, # 30 capsule, 1 Refills, Maintenance, 09/29/21 15:56:00 EDT, [facility] #[id number], 153, cm, 08/10/21 11:19:00 EDT, Height, 105, kg,05/31/21 15:15:00 EST, Dry Weight Start Date: 09/29/21 Status: Ordered budesonide 1 mg/2 mL inhalation suspension 2 mL = 1 mg, Neb, 2 times a day, rinse mouth out after use, # 120 mL, 1 Refills, Maintenance, 10/25/21 18:30:00 EDT, Suspension, [facility] #[id number], Partial fill upon patient request if the [...] 0 Refills, Maintenance, 11/18/20 21:02:00 EDT, Tablet, [facility]/pharmacy #[id number], Partial fill upon patient... Start Date: 11/18/20 Status: Ordered diclofenac 1% topical gel = 1 Gm, Topically, 4 times a day, FOR PAIN., # 100 Gm, 1 Refills, [facility], 30, APPLY 1 GM TOPICALLY 4 TIMES A DAY FOR PAIN, 153, cm, 06/07/21 11:07:00 EST, Height, 105, kg, 05/31/21 15:15:00 EST, Dry Weight Start Date: 08/05/21 Status: Ordered Dilaudid 2 mg oral tablet 1 tablet = 2 mg, By Mouth, 2 times a day, PRN Pain , Severe, checked masspat, # 28 tablet, 0 Refills, Maintenance, 10/25/21 21:55:00 EDT, Tablet, [facility] #[id number], Partial fill upon patient request if the prescription is for a schedule II o... Start Date: 10/25/21 Status: Ordered Famotidine 0 Refills, Maintenance, 04/07/19 16:11:00 EST Start Date: 04/07/19 Status: Ordered fluconazole 150 mg oral tablet 1 tablet = 150 mg, By Mouth, Once, # 1 tablet, 0 Refills, Soft Stop, 09/21/21 11:15:00 EDT, Tablet,[facility] #[id number], Partial fill upon patient request if the prescription is for a schedule II opioid drug., 153, cm, 08/10/21 11:19:00 EDT, H... Start Date: 09/21/21 Status: Ordered gabapentin 800 mg oral tablet See Instructions, TAKE 1 TABLET BY MOUTH FOUR TIMES DAILY, # 360 tablet, 0 Refills, [facility] #[id number], 153, cm, 10/08/21 13:23:00 EDT, Height, 113.9, [...] capsule, 1 Refills, Maintenance, 09/28/21 16:58:00 EDT, [facility] #[id number], 153, cm, 08/10/21 11:19:00 EDT, Height, 105, [...] 1 Refills, Maintenance, 07/30/21 12:25:00 EDT, Tablet, [facility] #[id number], Partial fill upon patient request if the prescription is for a schedule II opioid drug... Start Date: 07/30/21 Status: Ordered lidocaine 2% topical gel with applicator 5 mL = 0.1 Gm, Topically, 2 times a day, PRN Pain , Moderate, # 60 mL, 2 Refills, Soft Stop, 09/24/21 16:43:00 EDT, Gel, [facility] #[id number], Partial fill upon patient request if the [...] 10/30/21 18:35:00 EDT, 10/25/21 18:35:00 EDT, Capsule, [facility] #[id number], Partial fill upon patient request if the prescription is for a sched... Start Date: 10/25/21 Stop Date: 10/30/21 Status: Ordered omeprazole 20 mg oral enteric coated capsule 1 capsule, By Mouth, Daily, # 90 capsule, 0 Refills, 09/27/21 14:31:00 EDT, [facility] #[id number], 153, cm, 08/10/21 11:19:00 EDT, Height, 105, kg, 05/31/21 15:15:00 EST, Dry Weight Start Date: 09/27/21 Status: Ordered ondansetron 4 mg oral tablet 1 tablet = 4 mg, By Mouth, Every 8 hours, PRN Nausea & Vomiting, # 30 tablet, 1 Refills, Maintenance, 09/28/21 16:56:00 EDT, [facility] #[id number], 153, cm, 08/10/21 11:19:00 EDT, Height, 105, kg, 05/31/21 15:15:00 EST, Dry Weight Start Date: 09/28/21 Status: Ordered oxybutynin 5 mg oral tablet 1 tablet, By Mouth, 3 times a day, # 270 tablet, 1 Refills, [facility], 153, cm, 08/10/21 11:19:00 EDT, Height, 105, [...] 1 Refills, Maintenance, 07/30/21 12:22:00 EDT, Tablet, [facility] #[id number], Partial fill upon patient request if the [...]
--- OUTSIDE RECORDS SUMMARY | 2022-12-30 08:27 | XMS_ITS | Continuity of Care Document ---
Author Name Unknown Organization [facility] Address [address] [place] [address]- Care Team Providers Care Manager Talent Acquisition Name Role Phone Candis CARDENAS, Kaiden Villalta Primary Care Physician Encounter [facility] [place] Date(s): 11/05/20 - 12/05/20 [facility] [address] [place], [place] [address] Allergies, Adverse [...] 16:39:00 EDT, Route to Pharmacy Electronically, [facility]/pharmacy #[id number], Partial fill upon patient request if the prescription is for a schedule II... Start Date: 09/22/20 Status: Ordered baclofen 10 mg oral tablet 10 mg, 1, tablet, By Mouth, 3 times a day, PRN, # 30 tablet, Refills 0, Tot. Refills 0, Maintenance, Spasm, 01/31/19 21:47:23 EDT, Route to Pharmacy Electronically, [id number], [facility]/pharmacy #[id number] Start Date: 01/31/19 Stop [...] Refills, Maintenance, 11/09/20 23:47:00EDT, Tablet, [facility]/pharmacy #[id number], Partial fill upon patient [...] Maintenance, 11/05/20 11:43:00 EDT, Tablet, [facility]/pharmacy #[id number], Partial fill upon patient request if the prescription is for a schedule II opioid drug., 160, cm, 10/30/20 8:2... Start Date: 11/05/20 Status: Ordered meloxicam 15 mg oral tablet See Instructions, PRN Pain , Moderate, 0.5 to1 tab PO daily with food, # 30 capsule, 1 Refills, Maintenance, 12/04/20 11:27:00 EDT, Tablet, [facility]/pharmacy #[id number], Partial fill upon patient [...] Refills, Maintenance, 11/27/20 17:20:00 EDT, [id number], 160, cm, 10/30/20 8:28:00 EDT, Height, 105.5, [...]
--- OUTSIDE RECORDS SUMMARY | 2022-12-30 08:27 | XMS_ITS | Continuity of Care Document ---
Author Name Unknown Organization [facility] Address [address] [place] [address]- Care Team Providers Care Filter Press Tender Head Name Role Phone Candis CARDENAS, Kaiden Villalta Primary Care Physician [phone] Encounter [facility] [place] Date(s): 03/19/21 - 04/18/21 [facility] [address] [place], [place] [address] Allergies, Adverse Reactions, Alerts Substance [...] 12/24/20 16:08:00 EDT, Route to Pharmacy Electronically, [facility]/pharmacy #[id number], Partial fill upon patient request if the prescription is for a schedule II... Start Date: 12/24/20 Status: Ordered baclofen 10 mg oral tablet 10 mg, 1, tablet, By Mouth, 3 times a day, PRN, # 30 tablet, Refills 0, Tot. Refills 0, Maintenance, Spasm, 01/31/19 21:47:23 EDT, Route to Pharmacy Electronically, [id number], [facility]/pharmacy #[id number] Start Date: 01/31/19 Stop Date: 02/14/19 Status: Ordered benzonatate 100 mg oral capsule 2 capsule, By Mouth, 3 times a day, PRN NEEDED FOR COUGH, # 30 capsule, 1 Refills, Physician Stop 03/19/22 17:38:00 EST, 02/19/22 16:55:00 EDT, [facility]/pharmacy #[id number], 160, cm, 12/04/20 10:52:00 EDT, Height, 104.6, kg, 12/04/20 10:52:00 EDT, Dry Weight Start Date: 02/19/22 Stop Date: 03/19/22 Status: Ordered benzonatate 100 mg oral capsule 2 capsule, By Mouth, 3 times a day, PRN NEEDED FOR COUGH, # 30 capsule, 1 Refills, Physician Stop 02/19/22 16:55:00 EDT, 02/19/21 16:54:00 EDT, [facility]/pharmacy #[id number], 160, cm, 12/04/20 10:52:00 [...] # 360 tablet, 1 Refills, [id number], 160, cm, 03/30/21 10:47:00 EST, Height, 104.6, [...] 1 Refills, Maintenance, 02/25/21 8:28:00 EST, Capsule, [facility]/pharmacy #[id number], Partial fill upon patient [...] before breakfast, # 90 tablet, 0 Refills, [id number], 160, cm, 03/30/21 10:47:00 EST, Height, 104.6, kg, 12/04/20 10:52:00 EDT, Dry Weight Start Date: 04/15/21 Status: Ordered meloxicam 15 mg oral tablet 1/2 TO 1 TABLET, By Mouth, Daily, PRN NEEDED FOR MODERATE PAIN, # 30 tablet, 1 Refills, [facility], 160, cm, 12/04/20 10:52:00 EDT, Height, 104.6, kg, 12/04/20 10:52:00 EDT, Dry Weight Start Date: 01/22/21 Status: Ordered omeprazole 20 mg oral enteric coated capsule 1 capsule, By Mouth, Daily, # 90 capsule, 1 Refills, [facility], 160, cm, 03/30/21 10:47:00 EST, Height, 104.6, kg, 12/04/20 10:52:00 EDT, Dry Weight Start Date: 03/31/21 Status: Ordered ondansetron 4 mg oral tablet See Instructions, TAKE 1 TABLET BY MOUTH EVERY 8 HOURS NEEDED FOR NAUSEA AND VOMITING, # 15 tablet, 1 Refills, Physician Stop 04/19/21 17:37:00 EST, 03/19/21 17:37:00 EST, [facility]/pharmacy #[id number], 160,cm, 12/04/20 10:52:00 EDT, Height, [...] 0 Refills, Maintenance, 11/16/20 8:39:00 EDT, Aerosol, [facility]/pharmacy #[id number], Partial fill upon patient request if the prescription is for a schedule II opioid drug., 2 puffs Inhal... Start Date: 11/16/20 Status: Ordered Qvar Redihaler 40 mcg/inh inhalation aerosol = 40 mcg, Inhalation, 2 times a day, to replace flovent rinse mouth and throat after use, # 1 each,1 Refills, Maintenance, 03/30/21 20:35:00 EST, [facility]/pharmacy #[id number], Partial fill upon patient [...] 1 Refills, Maintenance, 04/06/21 12:26:00 EST, Tablet, [facility]/pharmacy #[id number], Partial fill upon patient [...]
--- OUTSIDE RECORDS SUMMARY | 2022-12-30 08:27 | XMS_ITS | Continuity of Care Document ---
Author Name Unknown Organization [facility] Address [address] [place] [address]- Care Team Providers Care Scroll Machine Operator Name Role Phone Candis CARDENAS, Kaiden Villalta Primary Care Physician Encounter [facility] [place] Date(s): 02/19/21 - 03/21/21 [facility] [address] [place], [place] [address] Allergies, Adverse Reactions, [...] 12/24/20 16:08:00 EDT, Route to Pharmacy Electronically, [facility]/pharmacy #[id number], Partial fill upon patient request if the prescription is for a schedule II... Start Date: 12/24/20 Status: Ordered baclofen 10 mg oral tablet 10 mg, 1, tablet, By Mouth, 3 times a day, PRN, # 30 tablet, Refills 0, Tot. Refills 0, Maintenance, Spasm, 01/31/19 21:47:23 EDT, Route to Pharmacy Electronically, [id number], [facility]/pharmacy #[id number] Start Date: 01/31/19 Stop Date: 02/14/19 [...] Stop 02/19/22 16:55:00 EDT, 02/19/21 16:54:00 EDT, [facility]/pharmacy #[id number], 160, [...] tablet, 1 Refills, Maintenance, 11/09/20 23:47:00EDT, Tablet, [facility]/pharmacy #[id number], Partial fill upon patient request if [...] 1 Refills, Maintenance, 02/25/21 8:28:00 EST, Capsule, [facility]/pharmacy #[id number], Partial fill upon patient request if [...] 1 Refills, Maintenance, 11/05/20 11:43:00 EDT, Tablet, [facility]/pharmacy #[id number], Partial fill upon patient request if the prescription is for a schedule II opioid drug., 160, cm, 10/30/20 8:2... Start Date: 11/05/20 Status: Ordered meloxicam 15 mg oral tablet 1/2 TO 1 TABLET, By Mouth, Daily, PRN NEEDED FOR MODERATE PAIN, # 30 tablet, 1 Refills, [id number], 160, cm, 12/04/20 10:52:00 EDT, Height, 104.6, kg, 12/04/20 10:52:00 EDT, Dry Weight Start Date: 01/22/21 Status: Ordered omeprazole 20 mg oral enteric coated capsule 1 capsule, By Mouth, Daily, # 90 capsule, 0 Refills, Maintenance, 01/14/21 13:42:00 EDT, [facility]/pharmacy #[id number], 160, cm, 12/04/20 10:52:00 EDT, Height, 104.6, kg, 12/04/20 10:52:00 EDT, Dry Weight Start Date: 01/14/21 Status: Ordered ondansetron 4 mg oral tablet See Instructions, TAKE 1 TABLET BY MOUTH EVERY 8 HOURS NEEDED FOR NAUSEA AND VOMITING, # 15 tablet, 1 Refills, Physician Stop 04/19/21 17:37:00 EST, 03/19/21 17:37:00 EST, [facility]/pharmacy #[id number], 160,cm, 12/04/20 10:52:00 EDT, Height, 104.6, kg, 12/04... Start Date: 03/19/21 Stop Date: 04/19/21 Status: Ordered oxybutynin 5 mg oral tablet 1 tablet, By Mouth, 3 times a day, dose increase, # 270 tablet, 1 Refills, Maintenance, 03/19/21 17:40:00 EST, [facility]/pharmacy #[id number], 160, cm, 12/04/20 10:52:00 EDT, Height, 104.6, kg, 12/04/20 10:52:00EDT, Dry Weight Start Date: 03/19/21 Status: Ordered ProAir HFA 90 mcg/inh inhalation aerosol 2 puffs, Inhalation, Every 4 hours, PRN as needed for wheezing, # 8.5 Gm, 0 Refills, Maintenance, 11/16/20 8:39:00 EDT, Aerosol, [facility]/pharmacy #[id number], Partial fill upon patient request if [...] 1 Refills, Maintenance, 10/30/20 8:45:00 EDT, Tablet, [facility]/pharmacy #[id number], Partial fill upon patient reques... Start Date: 10/30/20 Status: Ordered traZODone 150 mg oral tablet 1.5 tablet = 225 mg, By Mouth, Daily at bedtime, dose increase, # 135 tablet, 1 Refills, Maintenance, 03/19/21 17:41:00 EST, Tablet, [facility]/pharmacy #[id number], Partial fill upon patient request if [...]
--- OUTSIDE RECORDS SUMMARY | 2022-12-30 08:27 | XMS_ITS | Continuity of Care Document ---
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 Start Date: 12/24/20 Status: Ordered baclofen 10 mg oral tablet 10 mg, 1, tablet, By Mouth, 3 times a day, PRN, # 30 tablet, Refills 0, Tot. Refills 0, Maintenance, Spasm, 01/31/19 21:47:23 EDT, Route to Pharmacy Electronically, [id number], [facility]/pharmacy #[id number] Start Date: 01/31/19 Stop [...] tablet, 1 Refills, Maintenance, 11/09/20 23:47:00EDT, Tablet, [facility]/pharmacy #[id number], Partial fill upon patient [...] 0 Refills, Maintenance, 11/16/20 8:39:00 EDT, Aerosol, [facility]/pharmacy #[id number], Partial fill upon patient [...] 1 Refills, Maintenance, 10/30/20 8:45:00 EDT, Tablet, [facility]/pharmacy #[id number], Partial fill upon patient reques... Start Date: 10/30/20 Status: Ordered traZODone 150 mg oral tablet 1 tablet = 150 mg, By Mouth, Daily at bedtime, dose increase, # 90 tablet, 1 Refills, Maintenance, 11/03/20 13:28:00 EDT, Tablet, [facility]/pharmacy #[id number], Partial fill upon patient [...]
--- OUTSIDE RECORDS SUMMARY | 2022-12-30 08:27 | XMS_ITS | Continuity of Care Document ---
Author Name Unknown Organization [facility] Address [address] [place] [address]- Care Team Providers Care Rn Orthopaedic Name Role Phone Candis CARDENAS, Kaiden Villalta Primary Care Physician En[place] [facility] [place] Date(s): 09/08/22 - 10/08/22 [facility]/[address] [address]- [place] Allergies, Adverse Reactions, Alerts Substance Reaction [...] 8.5 Gm,0 Refills, Maintenance, 12/22/21 10:40:00 T, [facility] #[id number], 2 puffs Inhalation Every 4 hours,PRN: NEEDED FOR WHEEZING/cough/shortness... Start Date: 12/22/21 Status: Ordered albuterol 0.083% inhalation solution 3 mL = 2.5 mg, Inhalation, Every 4 hours, PRN for wheezing/cough/shortness of breath, # 25 each, 0 Refills, Maintenance, 06/29/22 13:08:00 EDT, Solution, [facility] #[id number], Partial fill upon patient request if the prescription is for a sched... Start Date: 06/29/22 Status: Ordered [place] Saline Mist 0.65% nasal spray 2 sprays, Nares, Both, 4 times a day, # 1 each, 0 Refills, Maintenance, 02/04/22 13:32:00 EDT, [facility] #[id number], Partial fill upon patient request if the [...] tablet, 0 Refills, Maintenance, 12/27/21 13:43:00 EDT, [facility] #[id number], 153, cm, 10/08/21 13:23:00 EDT, Height, 113.9, kg, 10/08/21 13:23:00EDT, Dry Weight Start Date: 12/27/21 Status: Ordered chlorhexidine 2% topical liquid See Instructions, 1 application to bilateral forearms twice weekly, # 120 mL, 3 Refills, Soft Stop,06/17/22 11:06:00 EST, Liquid, [facility] #[id number], Partial fill upon patient request if the prescription is for a schedule II opioid drug., 1... Start Date: 06/17/22 Status: Ordered chlorhexidine 4% topical soap See Instructions, apply topically twice weekly to skin on forearms, # 120 mL, 2 Refills, Soft Stop,06/17/22 16:03:00 EST, [facility] #[id number], Partial fill upon patient request if the [...] FOR PAIN., # 100 Gm, 1 Refills, [facility] 97[facility], 30, APPLY 1 GM TOPICALLY 4 TIMES A DAY FOR PAIN, 153, cm, 06/07/21 11:07:00 EST, Height, 105, kg, 05/31/21 15:15:00 EST, Dry Weight Start Date: 08/05/21 Status: Ordered Dilaudid 2 mg oral tablet 1 tablet = 2 mg, By Mouth, 2 times a day, PRN Pain , Severe, checked masspat, # 56 tablet, 0 Refills, Maintenance, 09/28/22 9:53:00 EDT, Tablet, [facility] #[id number], Partial fill upon patientrequest if the prescription is for a schedule II op... Start Date: 09/28/22 Status: Ordered Estrace Vaginal Cream 0.1 mg/g = 2 Gm, Vaginally, Daily at bedtime, 2g PV daily at bedtime x 2 weeks, then 1g PV 1-3x per week, # 42.5 Gm, 5 Refills, Maintenance, 11/09/21 11:17:00 EDT, [facility] #[id number], Partial fill upon patient request if the prescription is for a sche... Start Date: 11/09/21 Status: Ordered Estradiol Patch 0.0375 mg/24 hours twice weekly transdermal film, extended release See Instructions, APPLY 1 PATCH TOPICALLY TWICE WEEKLY DIRECTED, # 8 patch, 2 Refills, Maintenance, 09/22/22 21:55:00 EDT, [facility] #[id number], 28, APPLY 1 PATCH TOPICALLY TWICE WEEKLY DIRECTED, 153, cm, 06/17/22 10:53:00 EST, Height, 10... Start Date: 09/22/22 Status: Ordered fluconazole 150 mg oral tablet 1 tablet = 150 mg, By Mouth, Once, PRN vaginal yeast infection, # 1 tablet, 0 Refills, Soft Stop, 03/15/22 10:42:00 EST, Tablet, [facility] #[id number], Partial fill upon patient request if the prescription is for a schedule II opioid drug., 153,... Start Date: 03/15/22 Status: Ordered fluticasone 50 mcg/inh nasal spray See Instructions, SHAKE LIQUID AND USE 1 SPRAY IN EACH NOSTRIL TWICE DAILY, # 16 Gm, 1 Refills, Maintenance, 05/18/22 13:57:00 EST, [facility] #[id number], 30, SHAKE LIQUID AND USE 1 SPRAY IN EACH NOSTRIL TWICE DAILY, 153, cm, 04/25/22 16:23:00 E... Start Date: 05/18/22 Status: Ordered gabapentin 800 mg oral tablet 1 tablet, By Mouth, 4 times a day, # 360 tablet, 1 Refills, Maintenance, 04/19/22 12:59:00 EST, [facility] #[id number], 153, cm, 01/04/22 13:15:00 EDT, Height, 113.9, [...] capsule, 1 Refills, Maintenance, 07/18/22 9:45:00 EDT, [facility] #[id number], 153, cm, 06/17/22 10:53:00 EST, Height, 109, [...] 1 Refills, Maintenance, 04/28/22 13:51:00 EST, Tablet, [facility] #[id number], Partial fill upon patient request if the prescription is for a schedule II opioid drug., 153, cm... Start Date: 04/28/22 Status: Ordered lidocaine 4% topical cream 1 application, Topically, 3 times a day, PRN Pain , Mild, # 30 Gm, 1 Refills, Maintenance, 06/24/2315:24:00 EST, Cream, [facility] #[id number], Partial fill upon patient request if the prescription is for a schedule II opioid drug., 1 applicatio... Start Date: 06/23/22 Status: Ordered meloxicam 15 mg oral tablet 1/2 TO 1 TABLET, By Mouth, Daily, PRN NEEDED FOR MODERATE PAIN, # 30 tablet, 5 Refills, Maintenance, 01/10/22 20:40:00 EDT, [facility] #[id number], 153, cm, 01/04/22 13:15:00 EDT, Height, 113.9, [...] capsule, 1 Refills, Maintenance, 07/26/22 14:24:00 EDT, [facility] #[id number], 153, cm, 06/17/22 10:53:00 EST, Height, 109, kg, 06/17/22 10:53:00 EST, Dry Weight Start Date: 07/26/22 Status: Ordered ondansetron 4 mg oral tablet 1 tablet, By Mouth, Every 8 hours, PRN NEEDED FOR NAUSEA OR VOMITING, # 30 tablet, 1 Refills, Maintenance, 06/14/22 10:29:00 EST, [facility] #[id number], 153, cm, 06/08/22 9:37:00 EST, Height, 109, kg, 04/25/22 15:54:00 EST, Dry Weight Start Date: 06/14/22 Status: Ordered oxybutynin 5 mg oral tablet 1 tablet, By Mouth, 3 times a day, # 270 tablet, 1 Refills, Maintenance, 10/04/22 20:44:00 EDT, [facility] #[id number], 153, cm, 06/17/22 10:53:00 EST, Height, 109, [...] 07/01/22 14:21:00 EDT, Route to Pharmacy Electronically, [facility] #[id number], Partial fill upon patient request if the... Start Date: 07/01/22 Status: Ordered triamcinolone 0.1% topical cream 1 application, Topically, 3 times a day, PRN arm rash, # 30 Gm, 1 Refills, Acute 06/08/23 9:53:00 EST, 06/08/22 9:53:00 EST, Cream, [facility] #[id number], Partial fill upon patient request if the [...] Personnel Name: Kaiden Chirinos MD Position: [facility] Physician - Primary Care Member Role: PCP Address: Address: [address] [place] [address] Adult [place] [address]- Care Team Related Persons Name: MAUROHOMERO RODOLFO Address: home [address] [place] [id number] Name: CHIARA TEE Address: [place] [address] [place] [address] [address] [place] [id number]
--- OUTSIDE RECORDS SUMMARY | 2022-12-30 08:27 | XMS_ITS | Continuity of Care Document ---
Author Name Unknown Organization [facility] Address [address] [place] [address]- Care Team Providers Care Telecommunications Line Installer Name Role Phone Candis CARDENAS, Kaiden Villalta Primary Care Physician Encounter [facility] [place] Date(s): 01/04/22 - 02/03/22 [facility] [address] [place], [place] [address] Allergies, Adverse Reactions, Alerts Substance [...] 8.5 Gm,0 Refills, Maintenance, 12/22/21 10:40:00 EDT, [facility] #[id number], 2 puffs Inhalation Every 4 hours,PRN: NEEDED FOR WHEEZING/cough/shortness... Start Date: 12/22/21 Status: Ordered albuterol 0.083% inhalation solution 3 mL = 2.5 mg, Inhalation, Every 4 hours, PRN for wheezing/cough/shortness of breath, # 25 each, 0 Refills, Maintenance, 10/14/21 22:10:00 EDT, Solution, [facility] #[id number], Partial fill upon patient request if the [...] tablet, 0 Refills, Maintenance, 12/27/21 13:43:00 EDT, [facility] #[id number], 153, cm, 10/08/21 13:23:00 EDT, Height, 113.9, kg, 10/08/21 13:23:00EDT, Dry Weight Start Date: 12/27/21 Status: Ordered clonazePAM 0.5 mg oral tablet 1 tablet = 0.5 mg, By Mouth, 4 times a day, PRN Anxiety, Patient on controlled substance contract. Please do NOT fill until 09/23/2020, # 112 tablet, 0 Refills, Maintenance, 11/18/20 21:02:00 EDT, Tablet, [facility]/pharmacy #0925, Partial fill upon patient... Start Date: 11/18/20 Status: Ordered diclofenac 1% topical gel = 1 Gm, Topically, 4 times a day, FOR PAIN., # 100 Gm, 1 Refills, [facility], 30, APPLY 1 GM TOPICALLY 4 TIMES A DAY FOR PAIN, 153, cm, 06/07/21 11:07:00 EST, Height, 105, kg, 05/31/21 15:15:00 EST, Dry Weight Start Date: 08/05/21 Status: Ordered Dilaudid 2 mg oral tablet 1 tablet = 2 mg, By Mouth, 2 times a day, PRN Pain , Severe, checked masspat, # 28 tablet, 0 Refills, Maintenance, 01/18/22 17:28:00 EDT, Tablet, [facility] #[id number], Partial fill upon patient request if the prescription is for a schedule II o... Start Date: 01/18/22 Status: Ordered Estrace Vaginal Cream 0.1 mg/g = 2 Gm, Vaginally, Daily at bedtime, 2g PV daily at bedtime x 2 weeks, then 1g PV 1-3x per week, # 42.5 Gm, 5 Refills, Maintenance, 11/09/21 11:17:00 EDT, [facility] #[id number], Partial fill upon patient request if the prescription is for a sche... Start Date: 11/09/21 Status: Ordered Estradiol Patch 0.0375 mg/24 hours twice weekly transdermal film, extended release See Instructions, APPLY 1 PATCH TOPICALLY TWICE WEEKLY DIRECTED, # 8 patch, 0 Refills, Maintenance, 02/01/22 11:03:00 EDT, [facility] #[id number], 28, APPLY 1 PATCH TOPICALLY TWICE WEEKLY DIRECTED, 153, cm, 01/04/22 13:15:00 EDT, Height, 11... Start Date: 02/01/22 Status: Ordered gabapentin 800 mg oral tablet See Instructions, TAKE 1 TABLET BY MOUTH FOUR TIMES DAILY, # 360 tablet, 0 Refills, [facility] #11925, 153, cm, 10/08/21 13:23:00 EDT, Height, 113.9, [...] capsule, 1 Refills, Maintenance, 12/08/21 10:10:00 EDT, [facility] #[id number], 153, cm, 10/08/21 13:23:00 EDT, Height, 113.9,kg, [...] 1 Refills, Maintenance, 11/30/21 15:44:00 EDT, Tablet, [facility] #[id number], [place]... Start Date: 11/30/21 Status: Ordered levothyroxine 0.112 mg oral tablet 1 tablet, By Mouth, Daily, AVOID ANTACIDS, CALCIUM, OR IRON FOR AT LEAST 4 HOURS BEFORE OR 4 HOURS AFTER; ON AN ON AN EMPTY STOMACH, # 90 tablet, 0 Refills, Maintenance, 01/20/22 17:46:00 EDT, [facility] #[id number], 153, cm, 01/04/22 13:15:00 ED... Start Date: 01/20/22 Status: Ordered lidocaine 3% topical gel 1 application, Topically, 2 times a day, PRN as needed for pain, to replace 2% topical, # 28.5 Gm, 2 Refills, Acute 03/29/22 14:17:00 EST, 12/28/21 14:17:00 EDT, Gel, [facility] #[id number], Partial fill upon patient request if the prescription i... Start Date: 12/28/21 Stop Date: 03/29/22 Status: Ordered meloxicam 15 mg oral tablet 1/2 TO 1 TABLET, By Mouth, Daily, PRN NEEDED FOR MODERATE PAIN, # 30 tablet, 5 Refills, Maintenance, 01/10/22 20:40:00 EDT, [facility] #[id number], 153, cm, 01/04/22 13:15:00 EDT, Height, 113.9, [...] capsule, 0 Refills, Maintenance, 01/16/22 8:28:00 EDT, [facility] #[id number], 153, cm, 01/04/22 13:15:00 EDT, Height, 113.9, kg, 10/08/21 13:23:00 EDT, Dry Weight Start Date: 01/16/22 Status: Ordered ondansetron 4 mg oral tablet 1 tablet = 4 mg, By Mouth, Every 8 hours, PRN Nausea & Vomiting, # 30 tablet, 1 Refills, Maintenance, 11/10/21 14:47:00 EDT, [facility] #[id number], 153, cm, 10/08/21 13:23:00 EDT, Height, 113.9, kg, 10/08/21 13:23:00 EDT, Dry Weight Start Date: 11/10/21 Status: Ordered oxybutynin 5 mg oral tablet 1 tablet, By Mouth, 3 times a day, # 270 tablet, 1 Refills, 01/10/22 10:29:00 EDT, [facility] #[id number], 153, cm, 01/04/22 13:15:00 EDT, Height, 113.9, [...] Name: Candis CARDENAS, Kaiden Villalta Address: Address: [address] [place] [address] Adult & Pediatric Medicine [place], [place] [address]
--- OUTSIDE RECORDS SUMMARY | 2022-12-30 08:27 | XMS_ITS | Continuity of Care Document ---
Author Name Unknown Organization [facility] Address [address] [place] [address]- Care Team Providers Care It Compliance Analyst Name Role Phone Candis CARDENAS, Kaiden Villalta Primary Care Physician [phone] Encounter [facility] [place] Date(s): 09/27/21 - 10/27/21 [facility] [address] [place], [place] [address] Allergies, Adverse Reactions, Alerts Substance [...] 8.5 Gm,0 Refills, Maintenance, 09/28/21 16:57:00 T, [facility] #[id number], 2 puffs Inhalation Every 4 hours,PRN: NEEDED FOR WHEEZING/cough/shortness... Start Date: 09/28/21 Status: Ordered albuterol 0.083% inhalation solution 3 mL = 2.5 mg, Inhalation, Every 4 hours, PRN for wheezing/cough/shortness of breath, # 25 each, 0 Refills, Maintenance, 10/14/21 22:10:00 EDT, Solution, [facility] #[id number], Partial fill upon patient request if the [...] capsule, 1 Refills, Maintenance, 09/29/21 15:56:00 EDT, [facility] #[id number], 153, cm, 08/10/21 11:19:00 EDT, Height, 105, kg,05/31/21 15:15:00 EST, Dry Weight Start Date: 09/29/21 Status: Ordered budesonide 1 mg/2 mL inhalation suspension 2 mL = 1 mg, Neb, 2 times a day, rinse mouth out after use, # 120 mL, 1 Refills, Maintenance, 10/25/21 18:30:00 EDT, Suspension, [facility] #[id number], Partial fill upon patient request if the [...] FOR PAIN., # 100 Gm, 1 Refills, [facility], 30, APPLY 1 GM TOPICALLY 4 TIMES A DAY FOR PAIN, 153, cm, 06/07/21 11:07:00 EST, Height, 105, kg, 05/31/21 15:15:00 EST, Dry Weight Start Date: 08/05/21 Status: Ordered Dilaudid 2 mg oral tablet 1 tablet = 2 mg, By Mouth, 2 times a day, PRN Pain , Severe, checked masspat, # 28 tablet, 0 Refills, Maintenance, 10/25/21 21:55:00 EDT, Tablet, [facility] #[id number], Partial fill upon patient request if the prescription is for a schedule II o... Start Date: 10/25/21 Status: Ordered Famotidine 0 Refills, Maintenance, 04/07/19 16:11:00 EST Start Date: 04/07/19 Status: Ordered fluconazole 150 mg oral tablet 1 tablet = 150 mg, By Mouth, Once, # 1 tablet, 0 Refills, Soft Stop, 09/21/21 11:15:00 EDT, Tablet,[facility] #[id number], Partial fill upon patient request if the prescription is for a schedule II opioid drug., 153, cm, 08/10/21 11:19:00 EDT, H... Start Date: 09/21/21 Status: Ordered gabapentin 800 mg oral tablet See Instructions, TAKE 1 TABLET BY MOUTH FOUR TIMES DAILY, # 360 tablet, 0 Refills, [facility] #[id number], 153, cm, 10/08/21 13:23:00 EDT, Height, 113.9, [...] capsule, 1 Refills, Maintenance, 09/28/21 16:58:00 EDT, [facility] #[id number], 153, cm, 08/10/21 11:19:00 EDT, Height, 105, [...] 1 Refills, Maintenance, 07/30/21 12:25:00 EDT, Tablet, [facility] #[id number], Partial fill upon patient request if the prescription is for a schedule II opioid drug... Start Date: 07/30/21 Status: Ordered lidocaine 2% topical gel with applicator 5 mL = 0.1 Gm, Topically, 2 times a day, PRN Pain , Moderate, # 60 mL, 2 Refills, Soft Stop, 09/24/21 16:43:00 EDT, Gel, [facility] #[id number], Partial fill upon patient request if the [...] 10/30/21 18:35:00 EDT, 10/25/21 18:35:00 EDT, Capsule, [facility] #[id number], Partial fill upon patient request if the prescription is for a sched... Start Date: 10/25/21 Stop Date: 10/30/21 Status: Ordered omeprazole 20 mg oral enteric coated capsule 1 capsule, By Mouth, Daily, # 90 capsule, 0 Refills, 09/27/21 14:31:00 EDT, [facility] #[id number], 153, cm, 08/10/21 11:19:00 EDT, Height, 105, kg, 05/31/21 15:15:00 EST, Dry Weight Start Date: 09/27/21 Status: Ordered ondansetron 4 mg oral tablet 1 tablet = 4 mg, By Mouth, Every 8 hours, PRN Nausea & Vomiting, # 30 tablet, 1 Refills, Maintenance, 09/28/21 16:56:00 EDT, [facility] #[id number], 153, cm, 08/10/21 11:19:00 EDT, Height, 105, kg, 05/31/21 15:15:00 EST, Dry Weight Start Date: 09/28/21 Status: Ordered oxybutynin 5 mg oral tablet 1 tablet, By Mouth, 3 times a day, # 270 tablet, 1 Refills, [id number], 153, cm, 08/10/21 11:19:00 EDT, Height, 105, [...] 1 Refills, Maintenance, 07/30/21 12:22:00 EDT, Tablet, [facility] #[id number], Partial fill upon patient request if the [...]
--- OUTSIDE RECORDS SUMMARY | 2022-12-30 08:27 | XMS_ITS | Continuity of Care Document ---
Author Name Unknown Organization [facility] Address [address] [place] [address]- Care Team Providers Care Paste Worker Name Role Phone Kaiden Chirinos MD Primary Care Physician [phone] Encounter [facility] [place] Date(s): 09/22/20 - 10/22/20 [facility] [address] [place], [place] [address] Allergies, Adverse Reactions, Alerts Substance Reaction Severity Status morphine Active Adhesive Bandage Active Percocet 7.5/325 Active Medications amitriptyline 10 mg oral tablet 10 mg, 1, tablet, By Mouth, Daily at bedtime, # 90 tablet, Refills 1, Tot. Refills 1, Maintenance, 09/07/20 11:05:00 EDT, Route to Pharmacy Electronically, [facility]/pharmacy #[id number], Partial fill upon patient request if the prescription is for a schedule II... Start Date: 09/07/20 Status: Ordered amitriptyline 10 mg oral tablet 10 mg, 1, tablet, By Mouth, Daily at bedtime, # 90 tablet, Refills 1, Tot. Refills 1, Maintenance, 09/22/20 16:39:00 EDT, Route to Pharmacy Electronically, [facility]/pharmacy #[id number], Partial fill upon patient request if the prescription is for a schedule II... Start Date: 09/22/20 Status: Ordered baclofen 10 mg oral tablet 10 mg, 1, tablet, By Mouth, 3 times a day, PRN, # 30 tablet, Refills 0, Tot. Refills 0, Maintenance, Spasm, 01/31/19 21:47:23 EDT, Route to Pharmacy Electronically, [id number], [facility]/pharmacy #[id number] Start Date: 01/31/19 Stop Date: 02/14/19 Status: Ordered clonazePAM 0.5 mg oral tablet 1 tablet = 0.5 mg, By Mouth, 4 times a day, PRN Anxiety, Patient on controlled substance contract. Please do NOT fill until 09/23/2020, # 112 tablet, 1 Refills, Maintenance, 09/22/20 16:54:00 EDT, Tablet, [facility]/pharmacy #[id number], Partial fill [...] 0 Refills, Maintenance, 10/21/20 16:27:00 EDT, ECCapsule, [facility]/pharmacy #[id number], Partial fill upon patient request if the prescription is for a schedule II opioid drug., 160, cm, 09/07/20 13:05:00 EDT, H... Start Date: 10/21/20 Status: Ordered ProAir HFA 90 mcg/inh inhalation aerosol 2 puffs, Inhalation, Every 4 hours, PRN as needed for wheezing, # 8.5 Gm, 0 Refills, Maintenance, 09/01/20 20:10:00 EDT, Aerosol, [facility]/pharmacy #[id number], Partial fill upon patient request [...] with sertraline 100mg tab in morning for [id number] per day, # 90 tablet, 1 Refills, [...]
--- OUTSIDE RECORDS SUMMARY | 2022-12-30 08:27 | XMS_ITS | Continuity of Care Document ---
Author Name Unknown Organization [facility] Address [address] [place] [address]- Care Team Providers Care Proof Coins Inspector Name Role Phone Kaiden Chirinos MD Primary Care Physician [phone] Encounter [facility] Date(s): 02/08/22 - 03/10/22 [facility] [address] [place], [place] [address] Allergies, Adverse Reactions, [...] 8.5 Gm,0 Refills, Maintenance, 12/22/21 10:40:00 T, [facility] #[id number], 2 puffs Inhalation Every 4 hours,PRN: NEEDED FOR WHEEZING/cough/shortness... Start Date: 12/22/21 Status: Ordered albuterol 0.083% inhalation solution 3 mL = 2.5 mg, Inhalation, Every 4 hours, PRN for wheezing/cough/shortness of breath, # 25 each, 0 Refills, Maintenance, 10/14/21 22:10:00 EDT, Solution, [facility] #[id number], Partial fill upon patient request if the prescription is for a sched... Start Date: 10/14/21 Status: Ordered Treadwell Saline Mist 0.65% nasal spray 2 sprays, Nares, Both, 4 times a day, # 1 each, 0 Refills, Maintenance, 02/04/22 13:32:00 EDT, [facility] #[id number], Partial fill upon patient request if the [...] tablet, 0 Refills, Maintenance, 12/27/21 13:43:00 EDT, [facility] #[id number], 153, cm, 10/08/21 13:23:00 EDT, Height, 113.9, [...] FOR PAIN., # 100 Gm, 1 Refills, [facility], 30, APPLY 1 GM TOPICALLY 4 TIMES A DAY FOR PAIN, 153, cm, 06/07/21 11:07:00 EST, Height, 105, kg, 05/31/21 15:15:00 EST, Dry Weight Start Date: 08/05/21 Status: Ordered Dilaudid 2 mg oral tablet 1 tablet = 2 mg, By Mouth, 2 times a day, PRN Pain , Severe, checked masspat, # 28 tablet, 0 Refills, Maintenance, 03/04/22 14:11:00 EST, Tablet, [facility] #[id number], Partial fill upon patient request if the prescription is for a schedule II o... Start Date: 03/04/22 Status: Ordered Estrace Vaginal Cream 0.1 mg/g = 2 Gm, Vaginally, Daily at bedtime, 2g PV daily at bedtime x 2 weeks, then 1g PV 1-3x per week, # 42.5 Gm, 5 Refills, Maintenance, 11/09/21 11:17:00 EDT, [facility] #[id number], Partial fill upon patient request if the prescription is for a sche... Start Date: 11/09/21 Status: Ordered Estradiol Patch 0.0375 mg/24 hours twice weekly transdermal film, extended release See Instructions, APPLY 1 PATCH TOPICALLY TWICE WEEKLY DIRECTED, # 8 patch, 0 Refills, Maintenance, 02/26/22 10:23:00 EST, [facility] #[id number], 28, APPLY 1 PATCH TOPICALLY TWICE WEEKLY DIRECTED, 153, cm, 01/04/22 13:15:00 EDT, Height, 11... Start Date: 02/26/22 Status: Ordered fluconazole 150 mg oral tablet 1 tablet = 150 mg, By Mouth, Once, # 1 tablet, 0 Refills, Soft Stop, 02/14/22 14:41:00 EDT, Tablet,[facility] #[id number], Partial fill upon patient request if the prescription is for a schedule II opioid drug., 153, cm, 01/04/22 13:15:00 EDT, H... Start Date: 02/14/22 Status: Ordered gabapentin 800 mg oral tablet See Instructions, TAKE 1 TABLET BY MOUTH FOUR TIMES DAILY, # 360 tablet, 0 Refills, [facility] #[id number], 153, cm, 10/08/21 13:23:00 EDT, Height, 113.9, [...] capsule, 1 Refills, Maintenance, 12/08/21 10:10:00 EDT, [facility] #[id number], 153, cm, 10/08/21 13:23:00 EDT, Height, 113.9,kg, [...] tablet, 0 Refills, Maintenance, 01/20/22 17:46:00 EDT, [facility] #[id number], 153, cm, 01/04/22 13:15:00 ED... Start Date: 01/20/22 Status: Ordered lidocaine 3% topical gel 1 application, Topically, 2 times a day, PRN as needed for pain, to replace 2% topical, # 28.5 Gm, 2 Refills, Acute 03/29/22 14:17:00 EST, 12/28/21 14:17:00 EDT, Gel, [facility] #[id number], Partial fill upon patient request if the prescription i... Start Date: 12/28/21 Stop Date: 03/29/22 Status: Ordered meloxicam 15 mg oral tablet 1/2 TO 1 TABLET, By Mouth, Daily, PRN NEEDED FOR MODERATE PAIN, # 30 tablet, 5 Refills, Maintenance, 01/10/22 20:40:00 EDT, [facility] #[id number], 153, cm, 01/04/22 13:15:00 EDT, Height, 113.9, [...] capsule, 0 Refills, Maintenance, 01/16/22 8:28:00 EDT, [facility] #[id number], 153, cm, 01/04/22 13:15:00 EDT, Height, 113.9, kg, 10/08/21 13:23:00 EDT, Dry Weight Start Date: 01/16/22 Status: Ordered ondansetron 4 mg oral tablet 1 tablet, By Mouth, Every 8 hours, PRN NEEDED FOR NAUSEA OR VOMITING, # 30 tablet, 0 Refills, Maintenance, 03/01/22 11:29:00 EST, [facility] #[id number], 153, cm, 01/04/22 13:15:00 EDT, Height, 113.9, kg, 10/08/21 13:23:00 EDT, Dry Weight Start Date: 03/01/22 Status: Ordered oxybutynin 5 mg oral tablet 1 tablet, By Mouth, 3 times a day, # 270 tablet, 1 Refills, 01/10/22 10:29:00 EDT, [facility] #[id number], 153, cm, 01/04/22 13:15:00 EDT, Height, 113.9, [...] 02/18/22 16:37:00 EDT, Route to Pharmacy Electronically, [facility] #[id number], Partial fill upon patient request if the [...] Team Personnel Name: Kaiden Chirinos MD Position: [facility] Primary Care Physician Member Role: PCP Address: Address: [address] [place] [address] Adult [place] [address]- Care Team Related Persons Name: RODOLFO SHEIKH Address: home [address] [facility] [address] [place] [id number] Name: CHIARA TEE Address: home [address] [place] [address] [place] [id number]
--- OUTSIDE RECORDS SUMMARY | 2022-12-30 08:27 | XMS_ITS | Continuity of Care Document ---
Author Name Unknown Organization [facility] Address [address] [place] [address]- Care Team Providers Care Pickle Pumper Name Role Phone Kaiden Chirinos MD Primary Care Physician [phone] Encounter [facility] Date(s): 12/09/20 - 01/08/[address] [address] Attending Physician: Not on Staff, Attending MD Admitting Physician: Not on Staff, Admitting MD Referring Physician: Not on Staff, Referring [...] 12/24/20 16:08:00 EDT, Route to Pharmacy Electronically, [facility]/pharmacy #[id number], Partial fill upon patient request if the prescription is for a schedule II... Start Date: 12/24/20 Status: Ordered baclofen 10 mg oral tablet 10 mg, 1, tablet, By Mouth, 3 times a day, PRN, # 30 tablet, Refills 0, Tot. Refills 0, Maintenance, Spasm, 01/31/19 21:47:23 EDT, Route to Pharmacy Electronically, [id number], [facility]/pharmacy #[id number] Start Date: 01/31/19 [...] tablet, 1 Refills, Maintenance, 11/09/20 23:47:00EDT, Tablet, [facility]/pharmacy #[id number], Partial [...]
--- OUTSIDE RECORDS SUMMARY | 2022-12-30 08:28 | XMS_ITS | Continuity of Care Document ---
Author Name Unknown Organization 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 [address] [place], [place] [address] Allergies, Adverse [...] # 8.5 each, 0 Refills, [facility], 20, INHALE 2 PUFFS BY MOUTH EVERY 4 HOURS NEEDED FOR WHEEZING, 160, cm, 03/30/21 10:47:00 EST, Height, 104.6, kg, 12/04/20 10:52:00 EDT, Dry Weight Start Date: 04/28/21 Status: Ordered amitriptyline 10 mg oral tablet 10 mg, 1, tablet, By Mouth, Daily at bedtime, # 90 tablet, Refills 1, Tot. Refills 1, Maintenance, 12/24/20 16:08:00 EDT, Route to Pharmacy Electronically, [facility]/pharmacy #[id number], Partial fill upon patient request if the prescription is for a schedule II... Start Date: 12/24/20 Status: Ordered baclofen 10 mg oral tablet 10 mg, 1, tablet, By Mouth, 3 times a day, PRN, # 30 tablet, Refills 0, Tot. Refills 0, Maintenance, Spasm, 01/31/19 21:47:23 EDT, Route to Pharmacy Electronically, [id number], [facility]/pharmacy #[id number] Start Date: 01/31/19 Stop Date: 02/14/19 Status: Ordered benzonatate 100 mg oral capsule 2 capsule, By Mouth, 3 times a day, PRN NEEDED FOR COUGH, # 30 capsule, 1 Refills, Physician Stop 03/19/22 17:38:00 EST, 02/19/22 16:55:00 EDT, [facility]/pharmacy #[id number], 160, cm, 12/04/20 10:52:00 EDT, Height, 104.6, kg, 12/04/20 10:52:00 EDT, Dry Weight Start Date: 02/19/22 Stop Date: 03/19/22 Status: Ordered benzonatate 100 mg oral capsule 2 capsule, By Mouth, 3 times a day, PRN NEEDED FOR COUGH, # 30 capsule, 1 Refills, Physician Stop 02/19/22 16:55:00 EDT, 02/19/21 16:54:00 EDT, [facility]/pharmacy #[id number], 160, cm, 12/04/20 10:52:00 [...] # 360 tablet, 1 Refills, [facility], 160, cm, 03/30/21 10:47:00 EST, Height, 104.6, [...] 1 Refills, Maintenance, 02/25/21 8:28:00 EST, Capsule, [facility]/pharmacy #[id number], Partial fill upon patient [...] before breakfast, # 90 tablet, 0 Refills, [facility] 7[facility], 160, cm, 03/30/21 10:47:00 EST, Height, 104.6, kg, 12/04/20 10:52:00 EDT, Dry Weight Start Date: 04/15/21 Status: Ordered meloxicam 15 mg oral tablet 1/2 TO 1 TABLET, By Mouth, Daily, PRN NEEDED FOR MODERATE PAIN, # 30 tablet, 1 Refills, [facility] 27[facility], 160, cm, 12/04/20 10:52:00 EDT, Height, 104.6, kg, 12/04/20 10:52:00 EDT, Dry Weight Start Date: 01/22/21 Status: Ordered omeprazole 20 mg oral enteric coated capsule 1 capsule, By Mouth, Daily, # 90 capsule, 1 Refills, [facility] 73[facility], 160, cm, 03/30/21 10:47:00 EST, Height, 104.6, kg, 12/04/20 10:52:00 EDT, Dry Weight Start Date: 03/31/21 Status: Ordered oxybutynin 5 mg oral tablet 1 tablet, By Mouth, 3 times a day, dose increase, # 270 tablet, 1 Refills, Maintenance, 03/19/21 17:40:00 EST, [facility]/pharmacy #[id number], 160, cm, 12/04/20 10:52:00 EDT, Height, 104.6, kg, 12/04/20 10:52:00EDT, Dry Weight Start Date: 03/19/21 Status: Ordered Qvar Redihaler 40 mcg/inh inhalation aerosol = 40 mcg, Inhalation, 2 times a day, to replace flovent rinse mouth and throat after use, # 1 each,1 Refills, Maintenance, 03/30/21 20:35:00 EST, [facility]/pharmacy #[id number], Partial fill upon patient request if the prescription is for a schedule II opioid d... Start Date: 03/30/21 Status: Ordered sertraline 100 mg oral tablet 2 tablet = 200 mg, By Mouth, Daily, dose increase, please hold script until patient next due (she will no longer be on 50mg tabs), # 180 tablet, 1 Refills, Maintenance, 10/30/20 8:45:00 EDT, Tablet, [facility]/pharmacy #[id number], Partial fill upon patient reques... Start Date: 10/30/20 Status: Ordered traZODone 150 mg oral tablet 1.5 tablet = 225 mg, By Mouth, Daily at bedtime, dose increase, # 135 tablet, 1 Refills, Maintenance, 04/06/21 12:26:00 EST, Tablet, [facility]/pharmacy #[id number], Partial fill upon patient [...]
--- OUTSIDE RECORDS SUMMARY | 2022-12-30 08:28 | XMS_ITS | Continuity of Care Document ---
Author Name Unknown Organization [facility] Address [address] [place] [address]- Care Team Providers Care Product Mgmt Dev Manager Name Role Phone Kaiden Chirinos MD Primary Care Physician [phone] Encounter [facility] [place] Date(s): 09/28/21 - 10/28/21 [facility] [address] [place], [place] [address] Allergies, Adverse [...] 8.5 Gm,0 Refills, Maintenance, 09/28/21 16:57:00 EDT, [facility] #[id number], 2 puffs Inhalation Every 4 hours,PRN: NEEDED FOR WHEEZING/cough/shortness... Start Date: 09/28/21 Status: Ordered albuterol 0.083% inhalation solution 3 mL = 2.5 mg, Inhalation, Every 4 hours, PRN for wheezing/cough/shortness of breath, # 25 each, 0 Refills, Maintenance, 10/14/21 22:10:00 EDT, Solution, [facility] #[id number], Partial fill upon patient request if the [...] capsule, 1 Refills, Maintenance, 09/29/21 15:56:00 EDT, [facility] #[id number], 153, cm, 08/10/21 11:19:00 EDT, Height, 105, kg,05/31/21 15:15:00 EST, Dry Weight Start Date: 09/29/21 Status: Ordered budesonide 1 mg/2 mL inhalation suspension 2 mL = 1 mg, Neb, 2 times a day, rinse mouth out after use, # 120 mL, 1 Refills, Maintenance, 10/25/21 18:30:00 EDT, Suspension, [facility] #[id number], Partial fill upon patient request if the [...] # 100 Gm, 1 Refills, [facility], 30, APPLY 1 GM TOPICALLY 4 TIMES A DAY FOR PAIN, 153, cm, 06/07/21 11:07:00 EST, Height, 105, kg, 05/31/21 15:15:00 EST, Dry Weight Start Date: 08/05/21 Status: Ordered Dilaudid 2 mg oral tablet 1 tablet = 2 mg, By Mouth, 2 times a day, PRN Pain , Severe, checked masspat, # 28 tablet, 0 Refills, Maintenance, 10/25/21 21:55:00 EDT, Tablet, [facility] #[id number], Partial fill upon patient request if the prescription is for a schedule II o... Start Date: 10/25/21 Status: Ordered Famotidine 0 Refills, Maintenance, 04/07/19 16:11:00 EST Start Date: 04/07/19 Status: Ordered fluconazole 150 mg oral tablet 1 tablet = 150 mg, By Mouth, Once, # 1 tablet, 0 Refills, Soft Stop, 09/21/21 11:15:00 EDT, Tablet,[facility] #[id number], Partial fill upon patient request if the prescription is for a schedule II opioid drug., 153, cm, 08/10/21 11:19:00 EDT, H... Start Date: 09/21/21 Status: Ordered gabapentin 800 mg oral tablet See Instructions, TAKE 1 TABLET BY MOUTH FOUR TIMES DAILY, # 360 tablet, 0 Refills, [facility] #[id number], 153, cm, 10/08/21 13:23:00 EDT, Height, 113.9, [...] capsule, 1 Refills, Maintenance, 09/28/21 16:58:00 EDT, [facility] #[id number], 153, cm, 08/10/21 11:19:00 EDT, Height, 105, [...] 1 Refills, Maintenance, 07/30/21 12:25:00 EDT, Tablet, [facility] #93279, Partial fill upon patient request if the prescription is for a schedule II opioid drug... Start Date: 07/30/21 Status: Ordered lidocaine 2% topical gel with applicator 5 mL = 0.1 Gm, Topically, 2 times a day, PRN Pain , Moderate, # 60 mL, 2 Refills, Soft Stop, 09/24/21 16:43:00 EDT, Gel, [facility] #83246, Partial fill upon patient request if the [...] 10/30/21 18:35:00 EDT, 10/25/21 18:35:00 EDT, Capsule, [facility] #53666, Partial fill upon patient request if the prescription is for a sched... Start Date: 10/25/21 Stop Date: 10/30/21 Status: Ordered omeprazole 20 mg oral enteric coated capsule 1 capsule, By Mouth, Daily, # 90 capsule, 0 Refills, 09/27/21 14:31:00 EDT, [facility] #57860, 153, cm, 08/10/21 11:19:00 EDT, Height, 105, kg, 05/31/21 15:15:00 EST, Dry Weight Start Date: 09/27/21 Status: Ordered ondansetron 4 mg oral tablet 1 tablet = 4 mg, By Mouth, Every 8 hours, PRN Nausea & Vomiting, # 30 tablet, 1 Refills, Maintenance, 09/28/21 16:56:00 EDT, [facility] #30989, 153, cm, 08/10/21 11:19:00 EDT, Height, 105, kg, 05/31/21 15:15:00 EST, Dry Weight Start Date: 09/28/21 Status: Ordered oxybutynin 5 mg oral tablet 1 tablet, By Mouth, 3 times a day, # 270 tablet, 1 Refills, [facility], 153, cm, 08/10/21 11:19:00 EDT, Height, 105, [...] 1 Refills, Maintenance, 07/30/21 12:22:00 EDT, Tablet, [facility] #[id number], Partial fill upon patient request if the [...]
--- OUTSIDE RECORDS SUMMARY | 2022-12-30 08:28 | XMS_ITS | Continuity of Care Document ---
Author Name Unknown Organization [facility] Address [address] [place] [address]- Care Team Providers Care Staff [employer] Officer Name Role Phone Candis CARDENAS, Kaiden Villalta Primary Care Physician [place] [facility] [place] - 01/28/22 [facility] [address], [place] [address] Allergies, Adverse Reactions, Alerts Substance [...] 8.5 Gm,0 Refills, Maintenance, 12/22/21 10:40:00 EDT, [facility] #[id number], 2 puffs Inhalation Every 4 hours,PRN: NEEDED FOR WHEEZING/cough/shortness... Start Date: 12/22/21 Status: Ordered albuterol 0.083% inhalation solution 3 mL = 2.5 mg, Inhalation, Every 4 hours, PRN for wheezing/cough/shortness of breath, # 25 each, 0 Refills, Maintenance, 10/14/21 22:10:00 EDT, Solution, [facility] #[id number], Partial fill upon patient request if the [...] tablet, 0 Refills, Maintenance, 12/27/21 13:43:00 EDT, [facility] #[id number], 153, cm, 10/08/21 13:23:00 EDT, Height, 113.9, kg, 10/08/21 13:23:00EDT, Dry Weight Start Date: 12/27/21 Status: Ordered clonazePAM 0.5 mg oral tablet 1 tablet = 0.5 mg, By Mouth, 4 times a day, PRN Anxiety, Patient on controlled substance contract. Please do NOT fill until 09/23/2020, # 112 tablet, 0 Refills, Maintenance, 11/18/20 21:02:00 EDT, Tablet, [facility]/pharmacy #[id number], Partial fill upon patient... Start Date: 11/18/20 Status: Ordered diclofenac 1% topical gel = 1 Gm, Topically, 4 times a day, FOR PAIN., # 100 Gm, 1 Refills, [id number], 30, APPLY 1 GM TOPICALLY 4 TIMES A DAY FOR PAIN, 153, cm, 06/07/21 11:07:00 EST, Height, 105, kg, 05/31/21 15:15:00 EST, Dry Weight Start Date: 08/05/21 Status: Ordered Dilaudid 2 mg oral tablet 1 tablet = 2 mg, By Mouth, 2 times a day, PRN Pain , Severe, checked masspat, # 28 tablet, 0 Refills, Maintenance, 01/18/22 17:28:00 EDT, Tablet, [facility] #[id number], Partial fill upon patient request if the prescription is for a schedule II o... Start Date: 01/18/22 Status: Ordered Estrace Vaginal Cream 0.1 mg/g = 2 Gm, Vaginally, Daily at bedtime, 2g PV daily at bedtime x 2 weeks, then 1g PV 1-3x per week, # 42.5 Gm, 5 Refills, Maintenance, 11/09/21 11:17:00 EDT, [facility] #[id number], Partial fill upon patient request if the prescription is for a sche... Start Date: 11/09/21 Status: Ordered estradiol 0.0375 mg/24 hours twice weekly transdermal film, extended release See Instructions, 1 patch Topically, change patch twice a week, # 1 pack/packet, 1 Refills, Maintenance, 12/07/21 10:42:00 EDT, [facility] #[id number], Partial fill upon patient request if the prescription is for a schedule II opioid drug., 153,... Start Date: 12/07/21 Status: Ordered gabapentin 800 mg oral tablet See Instructions, TAKE 1 TABLET BY MOUTH FOUR TIMES DAILY, # 360 tablet, 0 Refills, [facility] #[id number], 153, cm, 10/08/21 13:23:00 EDT, Height, 113.9, [...] capsule, 1 Refills, Maintenance, 12/08/21 10:10:00 EDT, [facility] #[id number], 153, cm, 10/08/21 13:23:00 EDT, Height, 113.9,kg, [...] 1 Refills, Maintenance, 11/30/21 15:44:00 EDT, Tablet, [facility] #[id number], [place]... Start Date: 11/30/21 Status: Ordered levothyroxine 0.112 mg oral tablet 1 tablet, By Mouth, Daily, AVOID ANTACIDS, CALCIUM, OR IRON FOR AT LEAST 4 HOURS BEFORE OR 4 HOURS AFTER; ON AN ON AN EMPTY STOMACH, # 90 tablet, 0 Refills, Maintenance, 01/20/22 17:46:00 EDT, [facility] #[id number], 153, cm, 01/04/22 13:15:00 ED... Start Date: 01/20/22 Status: Ordered lidocaine 3% topical gel 1 application, Topically, 2 times a day, PRN as needed for pain, to replace 2% topical, # 28.5 Gm, 2 Refills, Acute 03/29/22 14:17:00 EST, 12/28/21 14:17:00 EDT, Gel, [facility] #[id number], Partial fill upon patient request if the prescription i... Start Date: 12/28/21 Stop Date: 03/29/22 Status: Ordered meloxicam 15 mg oral tablet 1/2 TO 1 TABLET, By Mouth, Daily, PRN NEEDED FOR MODERATE PAIN, # 30 tablet, 5 Refills, Maintenance, 01/10/22 20:40:00 EDT, [facility] #[id number], 153, cm, 01/04/22 13:15:00 EDT, Height, 113.9, [...] capsule, 0 Refills, Maintenance, 01/16/22 8:28:00 EDT, [facility] #[id number], 153, cm, 01/04/22 13:15:00 EDT, Height, 113.9, kg, 10/08/21 13:23:00 EDT, Dry Weight Start Date: 01/16/22 Status: Ordered ondansetron 4 mg oral tablet 1 tablet = 4 mg, By Mouth, Every 8 hours, PRN Nausea & Vomiting, # 30 tablet, 1 Refills, Maintenance, 11/10/21 14:47:00 EDT, [facility] #[id number], 153, cm, 10/08/21 13:23:00 EDT, Height, 113.9, kg, 10/08/21 13:23:00 EDT, Dry Weight Start Date: 11/10/21 Status: Ordered oxybutynin 5 mg oral tablet 1 tablet, By Mouth, 3 times a day, # 270 tablet, 1 Refills, 01/10/22 10:29:00 EDT, [facility] #[id number], 153, cm, 01/04/22 13:15:00 EDT, Height, 113.9, [...] Name: Candis CARDENAS, Kaiden Villalta Address: Address: [address] [place] [address] Adult [facility] Pediatric [place], [place] [address]
--- OUTSIDE RECORDS SUMMARY | 2022-12-30 08:28 | XMS_ITS | Continuity of Care Document ---
Author Name Unknown Organization [facility] Address [address] [place] [address]- Care Team Providers Care Health Safety Specialist Name Role Phone Candis CARDENAS, Kaiden Villalta Primary Care Physician Encounter [facility] [place] Date(s): 03/15/22 - 04/14/22 [facility] [address]- [place] Allergies, Adverse Reactions, Alerts Substance Reaction [...] 8.5 Gm,0 Refills, Maintenance, 12/22/21 10:40:00 T, [facility] #[id number], 2 puffs Inhalation Every 4 hours,PRN: NEEDED FOR WHEEZING/cough/shortness... Start Date: 12/22/21 Status: Ordered albuterol 0.083% inhalation solution 3 mL = 2.5 mg, Inhalation, Every 4 hours, PRN for wheezing/cough/shortness of breath, # 25 each, 0 Refills, Maintenance, 10/14/21 22:10:00 EDT, Solution, [facility] #[id number], Partial fill upon patient request if the prescription is for a sched... Start Date: 10/14/21 Status: Ordered Spring Saline Mist 0.65% nasal spray 2 sprays, Nares, Both, 4 times a day, # 1 each, 0 Refills, Maintenance, 02/04/22 13:32:00 EDT, [facility] #[id number], Partial fill upon patient request if the [...] tablet, 0 Refills, Maintenance, 12/27/21 13:43:00 EDT, [facility] #[id number], 153, cm, 10/08/21 13:23:00 EDT, Height, 113.9, [...] FOR PAIN., # 100 Gm, 1 Refills, [facility] 91193, 30, APPLY 1 GM TOPICALLY 4 TIMES A DAY FOR PAIN, 153, cm, 06/07/21 11:07:00 EST, Height, 105, kg, 05/31/21 15:15:00 EST, Dry Weight Start Date: 08/05/21 Status: Ordered Dilaudid 2 mg oral tablet 1 tablet = 2 mg, By Mouth, 2 times a day, PRN Pain , Severe, checked masspat, # 56 tablet, 0 Refills, Maintenance, 04/07/22 21:32:00 EST, Tablet, [facility] #[id number], Partial fill upon patient request if the prescription is for a schedule II o... Start Date: 04/07/22 Status: Ordered Estrace Vaginal Cream 0.1 mg/g = 2 Gm, Vaginally, Daily at bedtime, 2g PV daily at bedtime x 2 weeks, then 1g PV 1-3x per week, # 42.5 Gm, 5 Refills, Maintenance, 11/09/21 11:17:00 EDT, [facility] #[id number], Partial fill upon patient request if the prescription is for a sche... Start Date: 11/09/21 Status: Ordered Estradiol Patch 0.0375 mg/24 hours twice weekly transdermal film, extended release See Instructions, APPLY 1 PATCH TOPICALLY TWICE WEEKLY DIRECTED, # 8 patch, 6 Refills, Maintenance, 03/23/22 16:10:00 EST, [facility] #[id number], 28, APPLY 1 PATCH TOPICALLY TWICE WEEKLY DIRECTED, 153, cm, 01/04/22 13:15:00 EDT, Height, 11... Start Date: 03/23/22 Status: Ordered fluconazole 150 mg oral tablet 1 tablet = 150 mg, By Mouth, Once, PRN vaginal yeast infection, # 1 tablet, 0 Refills, Soft Stop, 03/15/22 10:42:00 EST, Tablet, [facility] #[id number], Partial fill upon patient request if the prescription is for a schedule II opioid drug., 153,... Start Date: 03/15/22 Status: Ordered gabapentin 800 mg oral tablet See Instructions, TAKE 1 TABLET BY MOUTH FOUR TIMES DAILY, # 360 tablet, 0 Refills, Maintenance, 04/13/22 20:23:00 EST, [facility] #[id number], 153, cm, 01/04/22 13:15:00 EDT, Height, 113.9, kg,10/08/21 13:23:00 EDT, Dry Weight Start Date: 04/13/22 Status: Ordered gabapentin 800 mg oral tablet 1 tablet, By Mouth, 4 times a day, # 360 tablet, 1 Refills, Maintenance, 04/13/22 20:23:00 EST, [facility] #[id number], 153, cm, 01/04/22 13:15:00 EDT, Height, 113.9, [...] capsule, 1 Refills, Maintenance, 12/08/21 10:10:00 EDT, [facility] #[id number], 153, cm, 10/08/21 13:23:00 EDT, Height, 113.9,kg, [...] 1 Refills, Maintenance, 03/14/22 15:04:00 EST, Tablet, [facility] #[id number], Partial fill upon patient request if the prescription is for a schedule II opioid drug., 153, cm... Start Date: 03/14/22 Status: Ordered meloxicam 15 mg oral tablet 1/2 TO 1 TABLET, By Mouth, Daily, PRN NEEDED FOR MODERATE PAIN, # 30 tablet, 5 Refills, Maintenance, 01/10/22 20:40:00 EDT, [facility] #[id number], 153, cm, 01/04/22 13:15:00 EDT, Height, 113.9, [...] capsule, 0 Refills, Maintenance, 01/16/22 8:28:00 EDT, [facility] #[id number], 153, cm, 01/04/22 13:15:00 EDT, Height, 113.9, kg, 10/08/21 13:23:00 EDT, Dry Weight Start Date: 01/16/22 Status: Ordered ondansetron 4 mg oral tablet 1 tablet, By Mouth, Every 8 hours, PRN NEEDED FOR NAUSEA OR VOMITING, # 30 tablet, 1 Refills, Maintenance, 04/14/22 21:15:00 EST, [facility] #[id number], 153, cm, 01/04/22 13:15:00 EDT, Height, 113.9, kg, 10/08/21 13:23:00 EDT, Dry Weight Start Date: 04/14/22 Status: Ordered oxybutynin 5 mg oral tablet 1 tablet, By Mouth, 3 times a day, # 270 tablet, 1 Refills, 01/10/22 10:29:00 EDT, [facility] #[id number], 153, cm, 01/04/22 13:15:00 EDT, Height, 113.9, [...] 04/14/22 21:16:00 EST, Route to Pharmacy Electronically, [facility] #[id number], Partial fill upon patient request if the... [...] Physician Member Role: PCP Address: Address: [address] [place] [address] Adult & [place] [address]- Care Team Related Persons Name: RODOLFO SHEIKH Address: home [address] [facility] [address] [place] [id number] Name: CHIARA TEE Address: home [address] [place] [address] [place] [id number]
--- OUTSIDE RECORDS SUMMARY | 2022-12-30 08:28 | XMS_ITS | Continuity of Care Document ---
Author Name Unknown Organization [facility] Address [address] [place] [address]- Care Team Providers Care Fire Battalion Chief Name Role Phone Candis CARDENAS, Kaiden Villalta Primary Care Physician [place] [facility] [place] [facility] [address] [place], [place] [address] Allergies, Adverse Reactions, Alerts [...] 8.5 Gm,0 Refills, Maintenance, 12/22/21 10:40:00 EDT, [facility] #[id number], 2 puffs Inhalation Every 4 hours,PRN: NEEDED FOR WHEEZING/cough/shortness... Start Date: 12/22/21 Status: Ordered albuterol 0.083% inhalation solution 3 mL = 2.5 mg, Inhalation, Every 4 hours, PRN for wheezing/cough/shortness of breath, # 25 each, 0 Refills, Maintenance, 10/14/21 22:10:00 EDT, Solution, [facility] #[id number], Partial fill upon patient request if the prescription is for a sched... Start Date: 10/14/21 Status: Ordered Melbourne Saline Mist 0.65% nasal spray 2 sprays, Nares, Both, 4 times a day, # 1 each, 0 Refills, Maintenance, 02/04/22 13:32:00 EDT, [facility] #[id number], Partial fill upon patient request if the [...] tablet, 0 Refills, Maintenance, 12/27/21 13:43:00 EDT, [facility] #[id number], 153, cm, 10/08/21 13:23:00 EDT, Height, 113.9, [...] # 100 Gm, 1 Refills, [facility], 30, APPLY 1 GM TOPICALLY 4 TIMES A DAY FOR PAIN, 153, cm, 06/07/21 11:07:00 EST, Height, 105, kg, 05/31/21 15:15:00 EST, Dry Weight Start Date: 08/05/21 Status: Ordered Dilaudid 2 mg oral tablet 1 tablet = 2 mg, By Mouth, 2 times a day, PRN Pain , Severe, checked masspat, # 28 tablet, 0 Refills, Maintenance, 03/23/22 22:13:00 EST, Tablet, [facility] #[id number], Partial fill upon patient request if the prescription is for a schedule II o... Start Date: 03/23/22 Status: Ordered Estrace Vaginal Cream 0.1 mg/g = 2 Gm, Vaginally, Daily at bedtime, 2g PV daily at bedtime x 2 weeks, then 1g PV 1-3x per week, # 42.5 Gm, 5 Refills, Maintenance, 11/09/21 11:17:00 EDT, [facility] #[id number], Partial fill upon patient request if the prescription is for a sche... Start Date: 11/09/21 Status: Ordered Estradiol Patch 0.0375 mg/24 hours twice weekly transdermal film, extended release See Instructions, APPLY 1 PATCH TOPICALLY TWICE WEEKLY DIRECTED, # 8 patch, 6 Refills, Maintenance, 03/23/22 16:10:00 EST, [facility] #[id number], 28, APPLY 1 PATCH TOPICALLY TWICE WEEKLY DIRECTED, 153, cm, 01/04/22 13:15:00 EDT, Height, 11... Start Date: 03/23/22 Status: Ordered fluconazole 150 mg oral tablet 1 tablet = 150 mg, By Mouth, Once, PRN vaginal yeast infection, # 1 tablet, 0 Refills, Soft Stop, 03/15/22 10:42:00 EST, Tablet, [facility] #[id number], Partial fill upon patient request if the prescription is for a schedule II opioid drug., 153,... Start Date: 03/15/22 Status: Ordered gabapentin 800 mg oral tablet See Instructions, TAKE 1 TABLET BY MOUTH FOUR TIMES DAILY, # 360 tablet, 0 Refills, [facility] #[id number], 153, cm, 10/08/21 13:23:00 EDT, Height, 113.9, [...] capsule, 1 Refills, Maintenance, 12/08/21 10:10:00 EDT, [facility] #[id number], 153, cm, 10/08/21 13:23:00 EDT, Height, 113.9,kg, [...] 1 Refills, Maintenance, 03/14/22 15:04:00 EST, Tablet, [facility] #[id number], Partial fill upon patient request if the prescription is for a schedule II opioid drug., 153, cm... Start Date: 03/14/22 Status: Ordered meloxicam 15 mg oral tablet 1/2 TO 1 TABLET, By Mouth, Daily, PRN NEEDED FOR MODERATE PAIN, # 30 tablet, 5 Refills, Maintenance, 01/10/22 20:40:00 EDT, [facility] #[id number], 153, cm, 01/04/22 13:15:00 EDT, Height, 113.9, [...] capsule, 0 Refills, Maintenance, 01/16/22 8:28:00 EDT, [facility] #[id number], 153, cm, 01/04/22 13:15:00 EDT, Height, 113.9, kg, 10/08/21 13:23:00 EDT, Dry Weight Start Date: 01/16/22 Status: Ordered ondansetron 4 mg oral tablet 1 tablet, By Mouth, Every 8 hours, PRN NEEDED FOR NAUSEA OR VOMITING, # 30 tablet, 0 Refills, Maintenance, 03/01/22 11:29:00 EST, [facility] #[id number], 153, cm, 01/04/22 13:15:00 EDT, Height, 113.9, kg, 10/08/21 13:23:00 EDT, Dry Weight Start Date: 03/01/22 Status: Ordered oxybutynin 5 mg oral tablet 1 tablet, By Mouth, 3 times a day, # 270 tablet, 1 Refills, 01/10/22 10:29:00 EDT, [facility] #[id number], 153, cm, 01/04/22 13:15:00 EDT, Height, 113.9, [...] 03/14/22 15:10:00 EST, Route to Pharmacy Electronically, [facility] #[id number], Partial fill upon patient request if the... [...] Physician Member Role: PCP Address: Address: [address] [place] [address] Adult & [place] [address]- Care Team Related Persons Name: RODOLFO SHEIKH Address: home [address] [facility] [address] [place] [address] Name: CHIARA TEE Address: home [address] [place] [address] [address] [place] [id number]
--- OUTSIDE RECORDS SUMMARY | 2022-12-30 08:28 | XMS_ITS | Continuity of Care Document ---
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 Start Date: 12/08/21 Status: Ordered albuterol 0.083% inhalation solution 3 mL = 2.5 mg, Inhalation, Every 4 hours, PRN for wheezing/cough/shortness of breath, # 25 each, 0 Refills, Maintenance, 10/14/21 22:10:00 EDT, Solution, [facility] #[id number], Partial fill upon patient request if the prescription is for a sched... Start Date: 10/14/21 Status: Ordered benzonatate 100 mg oral capsule 2 capsule, By Mouth, 3 times a day, PRN NEEDED FOR COUGH, # 30 capsule, 1 Refills, Physician Stop 11/10/22 14:46:00 EDT, 03/19/22 17:38:00 EST, [facility] #[id number], 153, cm, 10/08/21 13:23:00 EDT, Height, 113.9, kg, 10/08/21 13:23:00 EDT, D... Start Date: 03/19/22 Stop Date: 11/10/22 Status: Ordered benzonatate 100 mg oral capsule 2 capsule, By Mouth, 3 times a day, PRN NEEDED FOR COUGH, # 30 capsule, 1 Refills, Physician Stop 12/10/22 15:43:00 EDT, 11/10/22 14:46:00 EDT, [facility] #[id number], 153, cm, 10/08/21 13:23:00 EDT, Height, 113.9, [...] EDT, Tablet, [facility]/pharmacy #[id number], Partial fill upon patient... Start Date: 11/18/20 Status: Ordered diclofenac 1% topical gel = 1 Gm, Topically, 4 times a day, FOR PAIN., # 100 Gm, 1 Refills, [facility]608, 30, APPLY 1 GM TOPICALLY 4 TIMES A DAY FOR PAIN, 153, cm, 06/07/21 11:07:00 EST, Height, 105, kg, 05/31/21 15:15:00 EST, Dry Weight Start Date: 08/05/21 Status: Ordered Dilaudid 2 mg oral tablet 1 tablet = 2 mg, By Mouth, 2 times a day, PRN Pain , Severe, checked masspat, # 28 tablet, 0 Refills, Maintenance, 12/07/21 13:30:00 EDT, Tablet, [facility] #[id number], Partial fill upon patient request if the prescription is for a schedule II o... Start Date: 12/07/21 Status: Ordered Estrace Vaginal Cream 0.1 mg/g = 2 Gm, Vaginally, Daily at bedtime, 2g PV daily at bedtime x 2 weeks, then 1g PV 1-3x per week, # 42.5 Gm, 5 Refills, Maintenance, 11/09/21 11:17:00 EDT, [facility] #[id number], Partial fill upon patient request if the prescription is for a sche... Start Date: 11/09/21 Status: Ordered estradiol 0.0375 mg/24 hours twice weekly transdermal film, extended release See Instructions, 1 patch Topically, change patch twice a week, # 1 pack/packet, 1 Refills, Maintenance, 12/07/21 10:42:00 EDT, [facility] #[id number], Partial fill upon patient request if the prescription is for a schedule II opioid drug., 153,... Start Date: 12/07/21 Status: Ordered gabapentin 800 mg oral tablet See Instructions, TAKE 1 TABLET BY MOUTH FOUR TIMES DAILY, # 360 tablet, 0 Refills, [facility] #[id number], 153, cm, 10/08/21 13:23:00 EDT, Height, 113.9, [...] capsule, 1 Refills, Maintenance, 12/08/21 10:10:00 EDT, [facility] #[id number], 153, cm, 10/08/21 13:23:00 EDT, Height, 113.9,kg, [...] 1 Refills, Maintenance, 07/30/21 12:25:00 EDT, Tablet, [facility] #[id number], Partial fill upon patient request if the prescription is for a schedule II opioid drug... Start Date: 07/30/21 Status: Ordered levothyroxine 0.1 mg oral tablet 1 tablet = 100 mcg, By Mouth, Daily, dose increase, # 90 tablet, 0 Refills, Maintenance, 11/01/21 16:08:00 EDT, [facility] #[id number], Please discontinue 88ug, 153, cm, 10/08/21 13:23:00 [...] 1 Refills, Maintenance, 11/30/21 15:44:00 EDT, Tablet, [facility] #[id number], Part[place]... Start Date: 11/30/21 Status: Ordered lidocaine 2% topical gel with applicator 5 mL = 0.1 Gm, Topically, 2 times a day, PRN Pain , Moderate, # 60 mL, 2 Refills, Soft Stop, 09/24/21 16:43:00 EDT, Gel, [facility] #[id number], Partial fill upon patient request if the prescription is for a schedule II opioid drug., 153, cm, ... Start Date: 09/24/21 Status: Ordered meloxicam 15 mg oral tablet 1/2 TO 1 TABLET, By Mouth, Daily, PRN NEEDED FOR MODERATE PAIN, # 30 tablet, 1 Refills, 229:04:00 EDT, [facility] #[id number], 153, cm, 10/08/21 13:23:00 EDT, Height, 113.9, [...] Refills, 09/27/21 14:31:00 EDT, [facility] #[id number], 153, cm, 08/10/21 11:19:00 EDT, Height, 105, kg, 05/31/21 15:15:00 EST, Dry Weight Start Date: 09/27/21 Status: Ordered ondansetron 4 mg oral tablet 1 tablet = 4 mg, By Mouth, Every 8 hours, PRN Nausea & Vomiting, # 30 tablet, 1 Refills, Maintenance, 11/10/21 14:47:00 EDT, [facility] #[id number], 153, cm, 10/08/21 13:23:00 EDT, Height, 113.9, kg, 10/08/21 13:23:00 EDT, Dry Weight Start Date: 11/10/21 Status: Ordered oxybutynin 5 mg oral tablet 1 tablet, By Mouth, 3 times a day, # 270 tablet, 1 Refills, [facility] 175[facility], 153, cm, 08/10/21 11:19:00 EDT, Height, 105, [...] Personnel Name: Candis CARDENAS, Kaiden Villalta Address: [address] [place] [address] Adult & Pediatric Medicine [place], [place] [address]
--- OUTSIDE RECORDS SUMMARY | 2022-12-30 08:28 | XMS_ITS | Continuity of Care Document ---
Author Name Unknown Organization [facility] Address [address] [place] [address]- Care Team Providers Care Corporate Trainer Name Role Phone Candis CARDENAS, Kaiden Villalta Primary Care Physician Encounter [facility] [place] Date(s): 10/08/21 - 11/07/21 [facility] [address] [place], [place] [address] Allergies, Adverse Reactions, Alerts [...] 8.5 Gm,0 Refills, Maintenance, 09/28/21 16:57:00 EDT, [facility] #[id number], 2 puffs Inhalation Every 4 hours,PRN: NEEDED FOR WHEEZING/cough/shortness... Start Date: 09/28/21 Status: Ordered albuterol 0.083% inhalation solution 3 mL = 2.5 mg, Inhalation, Every 4 hours, PRN for wheezing/cough/shortness of breath, # 25 each, 0 Refills, Maintenance, 10/14/21 22:10:00 EDT, Solution, [facility] #[id number], Partial fill upon patient request if the [...] capsule, 1 Refills, Maintenance, 09/29/21 15:56:00 EDT, [facility] #[id number], 153, cm, 08/10/21 11:19:00 EDT, Height, 105, kg,05/31/21 15:15:00 EST, Dry Weight Start Date: 09/29/21 Status: Ordered budesonide 1 mg/2 mL inhalation suspension 2 mL = 1 mg, Neb, 2 times a day, rinse mouth out after use, # 120 mL, 1 Refills, Maintenance, 10/25/21 18:30:00 EDT, Suspension, [facility] #[id number], Partial fill upon patient request if the [...] # 100 Gm, 1 Refills, [id number], 30, APPLY 1 GM TOPICALLY 4 TIMES A DAY FOR PAIN, 153, cm, 06/07/21 11:07:00 EST, Height, 105, kg, 05/31/21 15:15:00 EST, Dry Weight Start Date: 08/05/21 Status: Ordered Dilaudid 2 mg oral tablet 1 tablet = 2 mg, By Mouth, 2 times a day, PRN Pain , Severe, checked masspat, # 28 tablet, 0 Refills, Maintenance, 10/25/21 21:55:00 EDT, Tablet, [facility] #[id number], Partial fill upon patient request if the prescription is for a schedule II o... Start Date: 10/25/21 Status: Ordered Famotidine 0 Refills, Maintenance, 04/07/19 16:11:00 EST Start Date: 04/07/19 Status: Ordered fluconazole 150 mg oral tablet 1 tablet = 150 mg, By Mouth, Once, # 1 tablet, 0 Refills, Soft Stop, 09/21/21 11:15:00 EDT, Tablet,[facility] #[id number], Partial fill upon patient request if the prescription is for a schedule II opioid drug., 153, cm, 08/10/21 11:19:00 EDT, H... Start Date: 09/21/21 Status: Ordered gabapentin 800 mg oral tablet See Instructions, TAKE 1 TABLET BY MOUTH FOUR TIMES DAILY, # 360 tablet, 0 Refills, [facility] #[id number], 153, cm, 10/08/21 13:23:00 EDT, Height, 113.9, [...] capsule, 1 Refills, Maintenance, 09/28/21 16:58:00 EDT, [facility] #[id number], 153, cm, 08/10/21 11:19:00 EDT, Height, 105, [...] 1 Refills, Maintenance, 07/30/21 12:25:00 EDT, Tablet, [facility] #[id number], Partial fill upon patient request if the prescription is for a schedule II opioid drug... Start Date: 07/30/21 Status: Ordered levothyroxine 0.1 mg oral tablet 1 tablet = 100 mcg, By Mouth, Daily, dose increase, # 90 tablet, 0 Refills, Maintenance, 11/01/21 16:08:00 EDT, [facility] #[id number], Please discontinue 88ug, 153, cm, 10/08/21 13:23:00 EDT, Height, 113.9, kg, 10/08/21 13:23:00 EDT, Dry Weight Start Date: 11/01/21 Status: Ordered lidocaine 2% topical gel with applicator 5 mL = 0.1 Gm, Topically, 2 times a day, PRN Pain , Moderate, # 60 mL, 2 Refills, Soft Stop, 09/24/21 16:43:00 EDT, Gel, [facility] #[id number], Partial fill upon patient request if the [...] 90 capsule, 0 Refills, 09/27/21 14:31:00 EDT, [facility] #[id number], 153, cm, 08/10/21 11:19:00 EDT, Height, 105, kg, 05/31/21 15:15:00 EST, Dry Weight Start Date: 09/27/21 Status: Ordered ondansetron 4 mg oral tablet 1 tablet = 4 mg, By Mouth, Every 8 hours, PRN Nausea & Vomiting, # 30 tablet, 1 Refills, Maintenance, 09/28/21 16:56:00 EDT, [facility] #[id number], 153, cm, 08/10/21 11:19:00 EDT, Height, 105, kg, 05/31/21 15:15:00 EST, Dry Weight Start Date: 09/28/21 Status: Ordered oxybutynin 5 mg oral tablet 1 tablet, By Mouth, 3 times a day, # 270 tablet, 1 Refills, [id number], 153, cm, 08/10/21 11:19:00 EDT, Height, 105, [...] 1 Refills, Maintenance, 07/30/21 12:22:00 EDT, Tablet, [facility] #[id number], Partial fill upon patient request if the [...]
--- OUTSIDE RECORDS SUMMARY | 2022-12-30 08:28 | XMS_ITS | Continuity of Care Document ---
Author Name Unknown Organization [facility] Address [address] [place], [place] [address]sarah espana, [address] [place] [address]- Care Team Providers Care Duty Manager Name Role Phone Candis CARDENAS, Kaiden Villalta Primary Care Physician Encounter [facility] [place] Date(s): 06/14/22 - 07/14/22 [facility] [address] [place] [address] Drive, [address] [place] [address]- Allergies, Adverse Reactions, Alerts Substance Reaction Severity [...] 8.5 Gm,0 Refills, Maintenance, 12/22/21 10:40:00 EDT, [facility] #[id number], 2 puffs Inhalation Every 4 hours,PRN: NEEDED FOR WHEEZING/cough/shortness... Start Date: 12/22/21 Status: Ordered albuterol 0.083% inhalation solution 3 mL = 2.5 mg, Inhalation, Every 4 hours, PRN for wheezing/cough/shortness of breath, # 25 each, 0 Refills, Maintenance, 06/29/22 13:08:00 EDT, Solution, [facility] #[id number], Partial fill upon patient request if the prescription is for a sched... Start Date: 06/29/22 Status: Ordered [place] Saline Mist 0.65% nasal spray 2 sprays, Nares, Both, 4 times a day, # 1 each, 0 Refills, Maintenance, 02/04/22 13:32:00 EDT, [facility] #[id number], Partial fill upon patient request if the [...] tablet, 0 Refills, Maintenance, 12/27/21 13:43:00 EDT, [facility] #[id number], 153, cm, 10/08/21 13:23:00 EDT, Height, 113.9, kg, 10/08/21 13:23:00EDT, Dry Weight Start Date: 12/27/21 Status: Ordered chlorhexidine 2% topical liquid See Instructions, 1 application to bilateral forearms twice weekly, # 120 mL, 3 Refills, Soft Stop,06/17/22 11:06:00 EST, Liquid, [facility] #[id number], Partial fill upon patient request if the prescription is for a schedule II opioid drug., 1... Start Date: 06/17/22 Status: Ordered chlorhexidine 4% topical soap See Instructions, apply topically twice weekly to skin on forearms, # 120 mL, 2 Refills, Soft Stop,06/17/22 16:03:00 EST, [facility] #[id number], Partial fill upon patient request if the [...] FOR PAIN., # 100 Gm, 1 Refills, [id number], 30, APPLY 1 GM TOPICALLY 4 TIMES A DAY FOR PAIN, 153, cm, 06/07/21 11:07:00 EST, Height, 105, kg, 05/31/21 15:15:00 EST, Dry Weight Start Date: 08/05/21 Status: Ordered Dilaudid 2 mg oral tablet 1 tablet = 2 mg, By Mouth, 2 times a day, PRN Pain , Severe, checked masspat, # 56 tablet, 0 Refills, Maintenance, 06/27/22 21:04:00 EDT, Tablet, [facility] #[id number], Partial fill upon patient request if the prescription is for a schedule II o... Start Date: 06/27/22 Status: Ordered Estrace Vaginal Cream 0.1 mg/g = 2 Gm, Vaginally, Daily at bedtime, 2g PV daily at bedtime x 2 weeks, then 1g PV 1-3x per week, # 42.5 Gm, 5 Refills, Maintenance, 11/09/21 11:17:00 EDT, [facility] #[id number], Partial fill upon patient request if the prescription is for a sche... Start Date: 11/09/21 Status: Ordered Estradiol Patch 0.0375 mg/24 hours twice weekly transdermal film, extended release See Instructions, APPLY 1 PATCH TOPICALLY TWICE WEEKLY DIRECTED, # 8 patch, 6 Refills, Maintenance, 03/23/22 16:10:00 EST, [facility] #[id number], 28, APPLY 1 PATCH TOPICALLY TWICE WEEKLY DIRECTED, 153, cm, 01/04/22 13:15:00 EDT, Height, 11... Start Date: 03/23/22 Status: Ordered fluconazole 150 mg oral tablet 1 tablet = 150 mg, By Mouth, Once, PRN vaginal yeast infection, # 1 tablet, 0 Refills, Soft Stop, 03/15/22 10:42:00 EST, Tablet, [facility] #[id number], Partial fill upon patient request if the prescription is for a schedule II opioid drug., 153,... Start Date: 03/15/22 Status: Ordered fluticasone 50 mcg/inh nasal spray See Instructions, SHAKE LIQUID AND USE 1 SPRAY IN EACH NOSTRIL TWICE DAILY, # 16 Gm, 1 Refills, Maintenance, 05/18/22 13:57:00 EST, [facility] #[id number], 30, SHAKE LIQUID AND USE 1 SPRAY IN EACH NOSTRIL TWICE DAILY, 153, cm, 04/25/22 16:23:00 E... Start Date: 05/18/22 Status: Ordered gabapentin 800 mg oral tablet 1 tablet, By Mouth, 4 times a day, # 360 tablet, 1 Refills, Maintenance, 04/19/22 12:59:00 EST, [facility] #[id number], 153, cm, 01/04/22 13:15:00 EDT, Height, 113.9, [...] capsule, 1 Refills, Maintenance, 05/20/22 12:57:00 EST, [facility] #[id number], 153, cm, 04/25/22 16:23:00 EST, Height, 109, [...] 1 Refills, Maintenance, 04/28/22 13:51:00 EST, Tablet, [facility] #[id number], Partial fill upon patient request if the prescription is for a schedule II opioid drug., 153, cm... Start Date: 04/28/22 Status: Ordered lidocaine 4% topical cream 1 application, Topically, 3 times a day, PRN Pain , Mild, # 30 Gm, 1 Refills, Maintenance, 06/24/2315:24:00 EST, Cream, [facility] #[id number], Partial fill upon patient request if the prescription is for a schedule II opioid drug., 1 applicatio... Start Date: 06/23/22 Status: Ordered meloxicam 15 mg oral tablet 1/2 TO 1 TABLET, By Mouth, Daily, PRN NEEDED FOR MODERATE PAIN, # 30 tablet, 5 Refills, Maintenance, 01/10/22 20:40:00 EDT, [facility] #[id number], 153, cm, 01/04/22 13:15:00 EDT, Height, 113.9, [...] capsule, 1 Refills, Maintenance, 04/19/22 12:41:00 EST, [facility] #[id number], 153, cm, 01/04/22 13:15:00 EDT, Height, 113.9, kg, 10/08/21 13:23:00 EDT, Dry Weight Start Date: 04/19/22 Status: Ordered ondansetron 4 mg oral tablet 1 tablet, By Mouth, Every 8 hours, PRN NEEDED FOR NAUSEA OR VOMITING, # 30 tablet, 1 Refills, Maintenance, 06/14/22 10:29:00 EST, [facility] #[id number], 153, cm, 06/08/22 9:37:00 EST, Height, 109, kg, 04/25/22 15:54:00 EST, Dry Weight Start Date: 06/14/22 Status: Ordered oxybutynin 5 mg oral tablet 1 tablet, By Mouth, 3 times a day, # 270 tablet, 0 Refills, Maintenance, 07/05/22 8:13:00 EDT, [facility] #[id number], 153, cm, 06/17/22 10:53:00 EST, Height, 109, [...] 07/01/22 14:21:00 EDT, Route to Pharmacy Electronically, [facility] #[id number], Partial fill upon patient request if the... Start Date: 07/01/22 Status: Ordered triamcinolone 0.1% topical cream 1 application, Topically, 3 times a day, PRN arm rash, # 30 Gm, 1 Refills, Acute 06/08/23 9:53:00 EST, 06/08/22 9:53:00 EST, Cream, [facility] #[id number], Partial fill upon patient request if the [...] Care Physician Member Role: PCP Address: Address: [address] [place] [address] Adult [facility] [place] [address]- Care Team Related Persons Name: AGUILAR RODOLFO Address: home [address] [facility] [address] [place] [address] Name: CHIARA TEE Address: home [address] [place] [address] [address] [place] [id number]
--- OUTSIDE RECORDS SUMMARY | 2022-12-30 08:28 | XMS_ITS | Continuity of Care Document ---
Author Name Unknown Organization [facility] Address [address] [place] [address], [address] [place] [address]- Care Team Providers Care Tree Inspector Name Role Phone Candis CARDENAS, Kaiden Villalta Primary Care Physician [phone] Encounter [facility] [place] Date(s): 11/02/22 - 12/02/22 [facility] [address] [place] [address], [address] [place] [address]- Allergies, Adverse Reactions, Alerts Substance Reaction Severity [...] 8.5 Gm,0 Refills, Maintenance, 12/22/21 10:40:00 T, [facility] #[id number], 2 puffs Inhalation Every 4 hours,PRN: NEEDED FOR WHEEZING/cough/shortness... Start Date: 12/22/21 Status: Ordered albuterol 0.083% inhalation solution 3 mL = 2.5 mg, Inhalation, Every 4 hours, PRN for wheezing/cough/shortness of breath, # 25 each, 0 Refills, Maintenance, 06/29/22 13:08:00 EDT, Solution, [facility] #[id number], Partial fill upon patient request if the prescription is for a sched... Start Date: 06/29/22 Status: Ordered Midnight Saline Mist 0.65% nasal spray 2 sprays, Nares, Both, 4 times a day, # 1 each, 0 Refills, Maintenance, 02/04/22 13:32:00 EDT, [facility] #[id number], Partial fill upon patient request if the [...] tablet, 0 Refills, Maintenance, 12/27/21 13:43:00 EDT, [facility] #[id number], 153, cm, 10/08/21 13:23:00 EDT, Height, 113.9, kg, 10/08/21 13:23:00EDT, Dry Weight Start Date: 12/27/21 Status: Ordered chlorhexidine 2% topical liquid See Instructions, 1 application to bilateral forearms twice weekly, # 120 mL, 3 Refills, Soft Stop,06/17/22 11:06:00 EST, Liquid, [facility] #[id number], Partial fill upon patient request if the prescription is for a schedule II opioid drug., 1... Start Date: 06/17/22 Status: Ordered chlorhexidine 4% topical soap See Instructions, apply topically twice weekly to skin on forearms, # 120 mL, 2 Refills, Soft Stop,06/17/22 16:03:00 EST, [facility] #[id number], Partial fill upon patient request if the [...] 11/18/20 21:02:00 EDT, Tablet, [facility]/pharmacy #[id number], Partial fill upon patient... Start Date: 11/18/20 Status: Ordered diclofenac 1% topical gel = 1 Gm, Topically, 4 times a day, FOR PAIN., # 100 Gm, 1 Refills, [id number], 30, APPLY 1 GM TOPICALLY 4 TIMES A DAY FOR PAIN, 153, cm, 06/07/21 11:07:00 EST, Height, 105, kg, 05/31/21 15:15:00 EST, Dry Weight Start Date: 08/05/21 Status: Ordered Dilaudid 2 mg oral tablet 1 tablet = 2 mg, By Mouth, 2 times a day, PRN Pain , Severe, checked masspat, # 56 tablet, 0 Refills, Maintenance, 11/28/22 11:25:00 EDT, Tablet, [facility] #[id number], Partial fill upon patient request if the prescription is for a schedule II o... Start Date: 11/28/22 Status: Ordered Estrace Vaginal Cream 0.1 mg/g = 2 Gm, Vaginally, Daily at bedtime, 2g PV daily at bedtime x 2 weeks, then 1g PV 1-3x per week, # 42.5 Gm, 5 Refills, Maintenance, 11/09/21 11:17:00 EDT, [facility] #[id number], Partial fill upon patient request if the prescription is for a sche... Start Date: 11/09/21 Status: Ordered Estradiol Patch 0.0375 mg/24 hours twice weekly transdermal film, extended release See Instructions, APPLY 1 PATCH TOPICALLY TWICE WEEKLY DIRECTED, # 8 patch, 2 Refills, Maintenance, 09/22/22 21:55:00 EDT, [facility] #[id number], 28, APPLY 1 PATCH TOPICALLY TWICE WEEKLY DIRECTED, 153, cm, 06/17/22 10:53:00 EST, Height, 10... Start Date: 09/22/22 Status: Ordered fluconazole 150 mg oral tablet 1 tablet = 150 mg, By Mouth, Once, PRN vaginal yeast infection, repeat dose in 72 hours if symptomsnot resolved, # 2 tablet, 0 Refills, Soft Stop, 11/08/22 15:31:00 EDT, Tablet, [facility]#[id number], Partial fill upon patient request if the pr... Start Date: 11/08/22 Status: Ordered fluticasone 50 mcg/inh nasal spray See Instructions, SHAKE LIQUID AND USE 1 SPRAY IN EACH NOSTRIL TWICE DAILY, # 16 Gm, 1 Refills, Maintenance, 05/18/22 13:57:00 EST, [facility] #[id number], 30, SHAKE LIQUID AND USE 1 SPRAY IN EACH NOSTRIL TWICE DAILY, 153, cm, 04/25/22 16:23:00 E... Start Date: 05/18/22 Status: Ordered gabapentin 800 mg oral tablet 1 tablet, By Mouth, 4 times a day, # 360 tablet, 1 Refills, Maintenance, 10/25/22 21:47:00 EDT, [facility] #[id number], 153, cm, 06/17/22 10:53:00 EST, Height, 109, [...] capsule, 1 Refills, Maintenance, 11/15/22 11:13:00 EDT, [facility] #[id number], 154, cm, 10/29/22 14:42:00 EDT, Height, 109, [...] 1 Refills, Maintenance, 04/28/22 13:51:00 EST, Tablet, [facility] #[id number], Partial fill upon patient request if the prescription is for a schedule II opioid drug., 153, cm... Start Date: 04/28/22 Status: Ordered lidocaine 4% topical cream 1 application, Topically, 3 times a day, PRN Pain , Mild, # 30 Gm, 1 Refills, Maintenance, 06/24/2315:24:00 EST, Cream, [facility] #[id number], Partial fill upon patient request if the prescription is for a schedule II opioid drug., 1 applicatio... Start Date: 06/23/22 Status: Ordered meloxicam 15 mg oral tablet 1/2 TO 1 TABLET, By Mouth, Daily, PRN NEEDED FOR MODERATE PAIN, # 30 tablet, 5 Refills, Maintenance, 01/10/22 20:40:00 EDT, [facility] #[id number], 153, cm, 01/04/22 13:15:00 EDT, Height, 113.9, [...] capsule, 1 Refills, Maintenance, 07/26/22 14:24:00 EDT, [facility] #[id number], 153, cm, 06/17/22 10:53:00 EST, Height, 109, kg, 06/17/22 10:53:00 EST, Dry Weight Start Date: 07/26/22 Status: Ordered ondansetron 4 mg oral tablet 1 tablet, By Mouth, Every 8 hours, PRN NEEDED FOR NAUSEA OR VOMITING, # 30 tablet, 1 Refills, Maintenance, 10/27/22 23:08:00 EDT, [facility] #[id number], 153, cm, 06/17/22 10:53:00 EST, Height, 109, kg, 06/17/22 10:53:00 EST, Dry Weight Start Date: 10/27/22 Status: Ordered oxybutynin 5 mg oral tablet 1 tablet, By Mouth, 3 times a day, # 270 tablet, 1 Refills, Maintenance, 10/04/22 20:44:00 EDT, [facility] #[id number], 153, cm, 06/17/22 10:53:00 EST, Height, 109, [...] 11/18/22 16:07:00 EDT, Route to Pharmacy Electronically, [facility] #[id number], Partial fill upon patient request if the prescrip... Start Date: 11/18/22 Status: Ordered traZODone 50 mg oral tablet 1-2 tablet, By Mouth, Daily, one hour prior to bedtime. dose increase, # 60 tablet, Refills 2, Tot.Refills 2, Maintenance, 07/01/22 14:21:00 EDT, Route to Pharmacy Electronically, [facility] #[id number], Partial fill upon patient request if the... Start Date: 07/01/22 Status: Ordered triamcinolone 0.1% topical cream 1 application, Topically, 3 times a day, PRN arm rash, # 30 Gm, 1 Refills, Acute 06/08/23 9:53:00 EST, 06/08/22 9:53:00 EST, Cream, [facility] #[id number], Partial fill upon patient request if the [...] Primary Care Member Role: PCP Address: Address: [address] [place] [address] [facility] [place] [address]- Care Team Related Persons Name: RODOLFO SHEIKH Address: home [address] [facility] [address] [place] [address] Name: CHIARA TEE Address: home [address] [place] [address] [address] [place] [address]
--- OUTSIDE RECORDS SUMMARY | 2022-12-30 08:28 | XMS_ITS | Continuity of Care Document ---
Author Name Unknown Organization [facility] Address [address] [place] [address]- Care Team Providers Care Electric Car Operator Name Role Phone Candis CARDENAS, Kaiden Villalta Primary Care Physician [place] [facility] [place] - 12/04/20 [facility] [address] [place], [place] [address] Allergies, Adverse Reactions, Alerts Substance Reaction [...] 16:39:00 EDT, Route to Pharmacy Electronically, [facility]/pharmacy #[id number], Partial fill upon patient request if the prescription is for a schedule II... Start Date: 09/22/20 Status: Ordered baclofen 10 mg oral tablet 10 mg, 1, tablet, By Mouth, 3 times a day, PRN, # 30 tablet, Refills 0, Tot. Refills 0, Maintenance, Spasm, 01/31/19 21:47:23 EDT, Route to Pharmacy Electronically, [id number], [facility]/pharmacy #[id number] Start Date: 01/31/19 Stop Date: [...] 1 Refills, Maintenance, 11/09/20 23:47:00EDT, Tablet, [facility]/pharmacy #[id number], Partial fill upon patient request [...] Refills, Maintenance, 11/05/20 11:43:00 EDT, Tablet, [facility]/pharmacy #[id number], Partial fill upon patient request if the prescription is for a schedule II opioid drug., 160, cm, 10/30/20 8:2... Start Date: 11/05/20 Status: Ordered meloxicam 15 mg oral tablet See Instructions, PRN Pain , Moderate, 0.5 to1 tab PO daily with food, # 30 capsule, 1 Refills, Maintenance, 12/04/20 11:27:00 EDT, Tablet, [facility]/pharmacy #[id number], Partial fill upon patient request [...] Refills, Maintenance, 11/27/20 17:20:00 EDT, [id number], 160, cm, 10/30/20 8:28:00 EDT, Height, 105.5, [...]
--- OUTSIDE RECORDS SUMMARY | 2022-12-30 08:28 | XMS_ITS | Continuity of Care Document ---
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 Start Date: 12/22/21 Status: Ordered albuterol 0.083% inhalation solution 3 mL = 2.5 mg, Inhalation, Every 4 hours, PRN for wheezing/cough/shortness of breath, # 25 each, 0 Refills, Maintenance, 06/29/22 13:08:00 EDT, Solution, [facility] #[id number], Partial fill upon patient request if the prescription is for a sched... Start Date: 06/29/22 Status: Ordered [place] Saline Mist 0.65% nasal spray 2 sprays, Nares, Both, 4 times a day, # 1 each, 0 Refills, Maintenance, 02/04/22 13:32:00 EDT, [facility] #[id number], Partial fill upon patient request if the [...] tablet, 0 Refills, Maintenance, 12/27/21 13:43:00 EDT, [facility] #[id number], 153, cm, 10/08/21 13:23:00 EDT, Height, 113.9, kg, 10/08/21 13:23:00EDT, Dry Weight Start Date: 12/27/21 Status: Ordered chlorhexidine 2% topical liquid See Instructions, 1 application to bilateral forearms twice weekly, # 120 mL, 3 Refills, Soft Stop,06/17/22 11:06:00 EST, Liquid, [facility] #[id number], Partial fill upon patient request if the prescription is for a schedule II opioid drug., 1... Start Date: 06/17/22 Status: Ordered chlorhexidine 4% topical soap See Instructions, apply topically twice weekly to skin on forearms, # 120 mL, 2 Refills, Soft Stop,06/17/22 16:03:00 EST, [facility] #[id number], Partial fill upon patient request if the [...] 21:02:00 EDT, Tablet, [facility]/pharmacy #[id number], Partial fill upon patient... Start Date: 11/18/20 Status: Ordered diclofenac 1% topical gel = 1 Gm, Topically, 4 times a day, FOR PAIN., # 100 Gm, 1 Refills, [facility], 30, APPLY 1 GM TOPICALLY 4 TIMES A DAY FOR PAIN, 153, cm, 06/07/21 11:07:00 EST, Height, 105, kg, 05/31/21 15:15:00 EST, Dry Weight Start Date: 08/05/21 Status: Ordered Dilaudid 2 mg oral tablet 1 tablet = 2 mg, By Mouth, 2 times a day, PRN Pain , Severe, checked masspat, # 56 tablet, 0 Refills, Maintenance, 06/27/22 21:04:00 EDT, Tablet, [facility] #[id number], Partial fill upon patient request if the prescription is for a schedule II o... Start Date: 06/27/22 Status: Ordered Estrace Vaginal Cream 0.1 mg/g = 2 Gm, Vaginally, Daily at bedtime, 2g PV daily at bedtime x 2 weeks, then 1g PV 1-3x per week, # 42.5 Gm, 5 Refills, Maintenance, 11/09/21 11:17:00 EDT, [facility] #[id number], Partial fill upon patient request if the prescription is for a sche... Start Date: 11/09/21 Status: Ordered Estradiol Patch 0.0375 mg/24 hours twice weekly transdermal film, extended release See Instructions, APPLY 1 PATCH TOPICALLY TWICE WEEKLY DIRECTED, # 8 patch, 6 Refills, Maintenance, 03/23/22 16:10:00 EST, [facility] #[id number], 28, APPLY 1 PATCH TOPICALLY TWICE WEEKLY DIRECTED, 153, cm, 01/04/22 13:15:00 EDT, Height, 11... Start Date: 03/23/22 Status: Ordered fluconazole 150 mg oral tablet 1 tablet = 150 mg, By Mouth, Once, PRN vaginal yeast infection, # 1 tablet, 0 Refills, Soft Stop, 03/15/22 10:42:00 EST, Tablet, [facility] #[id number], Partial fill upon patient request if the prescription is for a schedule II opioid drug., 153,... Start Date: 03/15/22 Status: Ordered fluticasone 50 mcg/inh nasal spray See Instructions, SHAKE LIQUID AND USE 1 SPRAY IN EACH NOSTRIL TWICE DAILY, # 16 Gm, 1 Refills, Maintenance, 05/18/22 13:57:00 EST, [facility] #[id number], 30, SHAKE LIQUID AND USE 1 SPRAY IN EACH NOSTRIL TWICE DAILY, 153, cm, 04/25/22 16:23:00 E... Start Date: 05/18/22 Status: Ordered gabapentin 800 mg oral tablet 1 tablet, By Mouth, 4 times a day, # 360 tablet, 1 Refills, Maintenance, 04/19/22 12:59:00 EST, [facility] #[id number], 153, cm, 01/04/22 13:15:00 EDT, Height, 113.9, [...] capsule, 1 Refills, Maintenance, 05/20/22 12:57:00 EST, [facility] #[id number], 153, cm, 04/25/22 16:23:00 EST, Height, 109, [...] 1 Refills, Maintenance, 04/28/22 13:51:00 EST, Tablet, [facility] #[id number], Partial fill upon patient request if the prescription is for a schedule II opioid drug., 153, cm... Start Date: 04/28/22 Status: Ordered lidocaine 4% topical cream 1 application, Topically, 3 times a day, PRN Pain , Mild, # 30 Gm, 1 Refills, Maintenance, 06/24/2315:24:00 EST, Cream, [facility] #[id number], Partial fill upon patient request if the prescription is for a schedule II opioid drug., 1 applicatio... Start Date: 06/23/22 Status: Ordered meloxicam 15 mg oral tablet 1/2 TO 1 TABLET, By Mouth, Daily, PRN NEEDED FOR MODERATE PAIN, # 30 tablet, 5 Refills, Maintenance, 01/10/22 20:40:00 EDT, [facility] #[id number], 153, cm, 01/04/22 13:15:00 EDT, Height, 113.9, [...] capsule, 1 Refills, Maintenance, 04/19/22 12:41:00 EST, [facility] #[id number], 153, cm, 01/04/22 13:15:00 EDT, Height, 113.9, kg, 10/08/21 13:23:00 EDT, Dry Weight Start Date: 04/19/22 Status: Ordered ondansetron 4 mg oral tablet 1 tablet, By Mouth, Every 8 hours, PRN NEEDED FOR NAUSEA OR VOMITING, # 30 tablet, 1 Refills, Maintenance, 06/14/22 10:29:00 EST, [facility] #[id number], 153, cm, 06/08/22 9:37:00 EST, Height, 109, kg, 04/25/22 15:54:00 EST, Dry Weight Start Date: 06/14/22 Status: Ordered oxybutynin 5 mg oral tablet 1 tablet, By Mouth, 3 times a day, # 270 tablet, 0 Refills, Maintenance, 07/05/22 8:13:00 EDT, [facility] #[id number], 153, cm, 06/17/22 10:53:00 EST, Height, 109, [...] 07/01/22 14:21:00 EDT, Route to Pharmacy Electronically, [facility] #[id number], Partial fill upon patient request if the... Start Date: 07/01/22 Status: Ordered triamcinolone 0.1% topical cream 1 application, Topically, 3 times a day, PRN arm rash, # 30 Gm, 1 Refills, Acute 06/08/23 9:53:00 EST, 06/08/22 9:53:00 EST, Cream, [facility] #[id number], Partial fill upon patient request if the [...] Team Personnel Name: Kaiden Chirinos MD Position: [facility] Primary Care Physician Member Role: PCP Address: Address: [address] [place] [address] Adult & [place] [address]- Care Team Related Persons Name: AGUILAR RODOLFO Address: home [address] [facility] [address] [place] [id number] Name: CHIARA TEE Address: home [address] [place] [address] [address] [place] [id number]
--- OUTSIDE RECORDS SUMMARY | 2022-12-30 08:28 | XMS_ITS | Continuity of Care Document ---
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 Name Role Phone Candis CARDENAS, Kaiden Villalta Primary Care Physician Encounter [facility] Date(s): 12/28/20 - 01/27/21 [facility] [address] [place], [place] [address] Allergies, Adverse Reactions, Alerts [...] 12/24/20 16:08:00 EDT, Route to Pharmacy Electronically, [facility]/pharmacy #[id number], Partial fill upon patient request if the [...] 01/31/19 21:47:23 EDT, Route to Pharmacy Electronically, [id number], [facility]/pharmacy #[id number] Start Date: 01/31/19 Stop Date: 02/14/19 Status: Ordered benzonatate 100 mg oral capsule 2 capsule, By Mouth, 3 times a day, PRN NEEDED FOR COUGH, # 30 capsule, 0 Refills, [facility] 83816, 160, cm, 12/04/20 10:52:00 EDT, Height, 104.6, [...] tablet, 1 Refills, Maintenance, 11/09/20 23:47:00EDT, Tablet, [facility]/pharmacy #0969, Partial fill upon patient request [...] 1 Refills, Maintenance, 11/05/20 11:43:00 EDT, Tablet, [facility]/pharmacy #0969, Partial fill upon patient request if the prescription is for a schedule II opioid drug., 160, cm, 10/30/20 8:2... Start Date: 11/05/20 Status: Ordered meloxicam 15 mg oral tablet 1/2 TO 1 TABLET, By Mouth, Daily, PRN NEEDED FOR MODERATE PAIN, # 30 tablet, 1 Refills, [facility] 32120, 160, cm, 12/04/20 10:52:00 EDT, Height, 104.6, [...] 0 Refills, Maintenance, 11/16/20 8:39:00 EDT, Aerosol, [facility]/pharmacy #[id number], Partial fill upon patient request if the prescription is for a schedule II opioid drug., 2 puffs Inhal... Start Date: 11/16/20 Status: Ordered Pyridium 200 mg oral tablet 1 tablet = 200 mg, By Mouth, 3 times a day, for 3 days, # 9 tablet, 0 Refills, Acute 01/28/21 11:47:00 EDT, 01/25/21 11:47:00 EDT, Tablet, [facility]/pharmacy #[id number], Partial fill upon patient request if theprescription is for a schedule II opioid drug., 160... Start Date: 01/25/21 Stop Date: 01/28/21 Status: Ordered sertraline 100 mg oral tablet 2 tablet = 200 mg, By Mouth, Daily, dose increase, please hold script until patient next due (she will no longer be on 50mg tabs), # 180 tablet, 1 Refills, Maintenance, 10/30/20 8:45:00 EDT, Tablet, [facility]/pharmacy #[id number], Partial fill upon patient reques... [...]
--- OUTSIDE RECORDS SUMMARY | 2022-12-30 08:28 | XMS_ITS | Continuity of Care Document ---
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 Role Phone Kaiden Chirinos MD Primary Care Physician [phone] Encounter [facility] [place] Date(s): 03/30/21 - 04/29/21 [facility] [address] [place], [place] [address] Attending Physician: Jc Guzmán Admitting Physician: Jc [...] FOR WHEEZING, # 8.5 each, 0 Refills, [facility] 75818, 20, INHALE 2 PUFFS BY MOUTH EVERY 4 HOURS NEEDED FOR WHEEZING, 160, cm, 03/30/21 10:47:00 EST, Height, 104.6, kg, 12/04/20 10:52:00 EDT, Dry Weight Start Date: 04/28/21 Status: Ordered amitriptyline 10 mg oral tablet 10 mg, 1, tablet, By Mouth, Daily at bedtime, # 90 tablet, Refills 1, Tot. Refills 1, Maintenance, 12/24/20 16:08:00 EDT, Route to Pharmacy Electronically, [facility]/pharmacy #[id number], Partial fill upon patient request if the prescription is for a schedule II... Start Date: 12/24/20 Status: Ordered baclofen 10 mg oral tablet 10 mg, 1, tablet, By Mouth, 3 times a day, PRN, # 30 tablet, Refills 0, Tot. Refills 0, Maintenance, Spasm, 01/31/19 21:47:23 EDT, Route to Pharmacy Electronically, [id number], [facility]/pharmacy #[id number] Start Date: 01/31/19 Stop [...] # 360 tablet, 1 Refills, [facility], 160, cm, 03/30/21 10:47:00 EST, Height, 104.6, [...] 1 Refills, Maintenance, 02/25/21 8:28:00 EST, Capsule, [facility]/pharmacy #[id number], Partial fill upon patient [...] before breakfast, # 90 tablet, 0 Refills, [facility], 160, cm, 03/30/21 10:47:00 EST, Height, 104.6, kg, 12/04/20 10:52:00 EDT, Dry Weight Start Date: 04/15/21 Status: Ordered meloxicam 15 mg oral tablet 1/2 TO 1 TABLET, By Mouth, Daily, PRN NEEDED FOR MODERATE PAIN, # 30 tablet, 1 Refills, [facility] 58717, 160, cm, 12/04/20 10:52:00 EDT, Height, 104.6, kg, 12/04/20 10:52:00 EDT, Dry Weight Start Date: 01/22/21 Status: Ordered omeprazole 20 mg oral enteric coated capsule 1 capsule, By Mouth, Daily, # 90 capsule, 1 Refills, [facility] 56934, 160, cm, 03/30/21 10:47:00 EST, Height, 104.6, [...] 1 each,1 Refills, Maintenance, 03/30/21 20:35:00 EST, [facility]/pharmacy #[id number], Partial fill upon patient request if the prescription is for a schedule II opioid d... Start Date: 03/30/21 Status: Ordered sertraline 100 mg oral tablet 2 tablet = 200 mg, By Mouth, Daily, dose increase, please hold script until patient next due (she will no longer be on 50mg tabs), # 180 tablet, 1 Refills, Maintenance, 10/30/20 8:45:00 EDT, Tablet, [facility]/pharmacy #[id number], Partial fill upon patient reques... Start Date: 10/30/20 Status: Ordered traZODone 150 mg oral tablet 1.5 tablet = 225 mg, By Mouth, Daily at bedtime, dose increase, # 135 tablet, 1 Refills, Maintenance, 04/06/21 12:26:00 EST, Tablet, [facility]/pharmacy #[id number], Partial fill upon patient [...]
--- OUTSIDE RECORDS SUMMARY | 2022-12-30 08:28 | XMS_ITS | Continuity of Care Document ---
Author Name Unknown Organization 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 Start Date: 12/22/21 Status: Ordered albuterol 0.083% inhalation solution 3 mL = 2.5 mg, Inhalation, Every 4 hours, PRN for wheezing/cough/shortness of breath, # 25 each, 0 Refills, Maintenance, 10/14/21 22:10:00 EDT, Solution, [facility] #[id number], Partial fill upon patient request if the prescription is for a sched... Start Date: 10/14/21 Status: Ordered [place] Saline Mist 0.65% nasal spray 2 sprays, Nares, Both, 4 times a day, # 1 each, 0 Refills, Maintenance, 02/04/22 13:32:00 EDT, [facility] #[id number], Partial fill upon patient request if the [...] tablet, 0 Refills, Maintenance, 12/27/21 13:43:00 EDT, [facility] #00303, 153, cm, 10/08/21 13:23:00 EDT, Height, 113.9, kg, 10/08/21 13:23:00EDT, Dry Weight Start Date: 12/27/21 Status: Ordered clonazePAM 0.5 mg oral tablet 1 tablet = 0.5 mg, By Mouth, 4 times a day, PRN Anxiety, Patient on controlled substance contract. Please do NOT fill until 09/23/2020, # 112 tablet, 0 Refills, Maintenance, 11/18/20 21:02:00 EDT, Tablet, [facility]/pharmacy #0959, Partial fill upon patient... Start Date: 11/18/20 Status: Ordered diclofenac 1% topical gel = 1 Gm, Topically, 4 times a day, FOR PAIN., # 100 Gm, 1 Refills, [facility] 10774, 30, APPLY 1 GM TOPICALLY 4 TIMES A DAY FOR PAIN, 153, cm, 06/07/21 11:07:00 EST, Height, 105, kg, 05/31/21 15:15:00 EST, Dry Weight Start Date: 08/05/21 Status: Ordered Dilaudid 2 mg oral tablet 1 tablet = 2 mg, By Mouth, 2 times a day, PRN Pain , Severe, checked masspat, # 28 tablet, 0 Refills, Maintenance, 03/04/22 14:11:00 EST, Tablet, [facility] #[id number], Partial fill upon patient request if the prescription is for a schedule II o... Start Date: 03/04/22 Status: Ordered Estrace Vaginal Cream 0.1 mg/g = 2 Gm, Vaginally, Daily at bedtime, 2g PV daily at bedtime x 2 weeks, then 1g PV 1-3x per week, # 42.5 Gm, 5 Refills, Maintenance, 11/09/21 11:17:00 EDT, [facility] #[id number], Partial fill upon patient request if the prescription is for a sche... Start Date: 11/09/21 Status: Ordered Estradiol Patch 0.0375 mg/24 hours twice weekly transdermal film, extended release See Instructions, APPLY 1 PATCH TOPICALLY TWICE WEEKLY DIRECTED, # 8 patch, 0 Refills, Maintenance, 02/26/22 10:23:00 EST, [facility] #[id number], 28, APPLY 1 PATCH TOPICALLY TWICE WEEKLY DIRECTED, 153, cm, 01/04/22 13:15:00 EDT, Height, 11... Start Date: 02/26/22 Status: Ordered fluconazole 150 mg oral tablet 1 tablet = 150 mg, By Mouth, Once, # 1 tablet, 0 Refills, Soft Stop, 02/14/22 14:41:00 EDT, Tablet,[facility] #[id number], Partial fill upon patient request if the prescription is for a schedule II opioid drug., 153, cm, 01/04/22 13:15:00 EDT, H... Start Date: 02/14/22 Status: Ordered gabapentin 800 mg oral tablet See Instructions, TAKE 1 TABLET BY MOUTH FOUR TIMES DAILY, # 360 tablet, 0 Refills, [facility] #[id number], 153, cm, 10/08/21 13:23:00 EDT, Height, 113.9, [...] capsule, 1 Refills, Maintenance, 12/08/21 10:10:00 EDT, [facility] #[id number], 153, cm, 10/08/21 13:23:00 EDT, Height, 113.9,kg, [...] tablet, 0 Refills, Maintenance, 01/20/22 17:46:00 EDT, [facility] #49383, 153, cm, 01/04/22 13:15:00 ED... Start Date: 01/20/22 Status: Ordered lidocaine 3% topical gel 1 application, Topically, 2 times a day, PRN as needed for pain, to replace 2% topical, # 28.5 Gm, 2 Refills, Acute 03/29/22 14:17:00 EST, 12/28/21 14:17:00 EDT, Gel, [facility] #[id number], Partial fill upon patient request if the prescription i... Start Date: 12/28/21 Stop Date: 03/29/22 Status: Ordered meloxicam 15 mg oral tablet 1/2 TO 1 TABLET, By Mouth, Daily, PRN NEEDED FOR MODERATE PAIN, # 30 tablet, 5 Refills, Maintenance, 01/10/22 20:40:00 EDT, [facility] #19684, 153, cm, 01/04/22 13:15:00 EDT, Height, 113.9, [...] capsule, 0 Refills, Maintenance, 01/16/22 8:28:00 EDT, [facility] #[id number], 153, cm, 01/04/22 13:15:00 EDT, Height, 113.9, kg, 10/08/21 13:23:00 EDT, Dry Weight Start Date: 01/16/22 Status: Ordered ondansetron 4 mg oral tablet 1 tablet, By Mouth, Every 8 hours, PRN NEEDED FOR NAUSEA OR VOMITING, # 30 tablet, 0 Refills, Maintenance, 03/01/22 11:29:00 EST, [facility] #86387, 153, cm, 01/04/22 13:15:00 EDT, Height, 113.9, kg, 10/08/21 13:23:00 EDT, Dry Weight Start Date: 03/01/22 Status: Ordered oxybutynin 5 mg oral tablet 1 tablet, By Mouth, 3 times a day, # 270 tablet, 1 Refills, 01/10/22 10:29:00 EDT, [facility] #04439, 153, cm, 01/04/22 13:15:00 EDT, Height, 113.9, [...] 02/18/22 16:37:00 EDT, Route to Pharmacy Electronically, [facility] #[id number], Partial fill upon patient request if the [...] Personnel Name: Candis CARDENAS, Kaiden Villalta Position: [facility] Primary Care Physician Member Role: PCP Address: Address: [address] [place] [address] Adult [place] [address]- Care Team Related Persons Name: RODOLFO SHEIKH Address: home [address] [facility] [address] [place] [address] Name: CHIARA TEE Address: home [address] [place] [address] [place] [address]
--- OUTSIDE RECORDS SUMMARY | 2022-12-30 08:28 | XMS_ITS | Continuity of Care Document ---
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 Start Date: 09/28/21 Status: Ordered albuterol 0.083% inhalation solution 3 mL = 2.5 mg, Inhalation, Every 4 hours, PRN for wheezing/cough/shortness of breath, # 25 each, 0 Refills, Maintenance, 10/14/21 22:10:00 EDT, Solution, [facility] #[id number], Partial fill upon patient request if the [...] capsule, 1 Refills, Maintenance, 09/29/21 15:56:00 EDT, [facility] #[id number], 153, cm, 08/10/21 11:19:00 EDT, Height, 105, [...] 0 Refills, Maintenance, 11/18/20 21:02:00 EDT, Tablet, [facility]/pharmacy #0969, Partial fill upon patient... Start Date: 11/18/20 Status: Ordered diclofenac 1% topical gel = 1 Gm, Topically, 4 times a day, FOR PAIN., # 100 Gm, 1 Refills, [facility] 94037, 30, APPLY 1 GM TOPICALLY 4 TIMES A DAY FOR PAIN, 153, cm, 06/07/21 11:07:00 EST, Height, 105, kg, 05/31/21 15:15:00 EST, Dry Weight Start Date: 08/05/21 Status: Ordered Dilaudid 2 mg oral tablet 1 tablet = 2 mg, By Mouth, 2 times a day, PRN Pain , Severe, checked masspat, # 28 tablet, 0 Refills, Maintenance, 10/08/21 13:52:00 EDT, Tablet, [facility] #66700, Partial fill upon patient request if the prescription is for a schedule II o... Start Date: 10/08/21 Status: Ordered Famotidine 0 Refills, Maintenance, 04/07/19 16:11:00 EST Start Date: 04/07/19 Status: Ordered fluconazole 150 mg oral tablet 1 tablet = 150 mg, By Mouth, Once, # 1 tablet, 0 Refills, Soft Stop, 09/21/21 11:15:00 EDT, Tablet,[facility] #[id number], Partial fill upon patient request if the prescription is for a schedule II opioid drug., 153, cm, 08/10/21 11:19:00 EDT, H... Start Date: 09/21/21 Status: Ordered gabapentin 800 mg oral tablet See Instructions, TAKE 1 TABLET BY MOUTH FOUR TIMES DAILY, # 360 tablet, 0 Refills, [facility] #[id number], 153, cm, 10/08/21 13:23:00 EDT, Height, 113.9, [...] capsule, 1 Refills, Maintenance, 09/28/21 16:58:00 EDT, [facility] #36494, 153, cm, 08/10/21 11:19:00 EDT, Height, 105, [...] tablet, 1 Refills, Maintenance, 07/30/21 12:25:00 EDT, [facility] #[id number], Partial fill upon patient request if the prescription is for a schedule II opioid drug... Start Date: 07/30/21 Status: Ordered lidocaine 2% topical gel with applicator 5 mL = 0.1 Gm, Topically, 2 times a day, PRN Pain , Moderate, # 60 mL, 2 Refills, Soft Stop, 09/24/21 16:43:00 EDT, Gel, [facility] #77759, Partial fill upon patient request if the [...] 90 capsule, 0 Refills, 09/27/21 14:31:00 EDT, [facility] #39727, 153, cm, 08/10/21 11:19:00 EDT, Height, 105, kg, 05/31/21 15:15:00 EST, Dry Weight Start Date: 09/27/21 Status: Ordered ondansetron 4 mg oral tablet 1 tablet = 4 mg, By Mouth, Every 8 hours, PRN Nausea & Vomiting, # 30 tablet, 1 Refills, Maintenance, 09/28/21 16:56:00 EDT, [facility] #[id number], 153, cm, 08/10/21 11:19:00 EDT, Height, 105, kg, 05/31/21 15:15:00 EST, Dry Weight Start Date: 09/28/21 Status: Ordered oxybutynin 5 mg oral tablet 1 tablet, By Mouth, 3 times a day, # 270 tablet, 1 Refills, [facility] 60309, 153, cm, 08/10/21 11:19:00 EDT, Height, 105, [...] 1 Refills, Maintenance, 07/30/21 12:22:00 EDT, Tablet, [facility] #[id number], Partial fill upon patient request if the [...]
--- OUTSIDE RECORDS SUMMARY | 2022-12-30 08:28 | XMS_ITS | Continuity of Care Document ---
Author Name Unknown Organization [facility] Address [address] [address]- Care Team Providers Care Quiller Runner Name Role Phone Candis CARDENAS, Kaiden Villalta Primary Care Physician [place] [facility] [place] Date(s): 12/24/21 - 01/23/22 [facility] [address] [place] [phone]- Allergies, Adverse Reactions, Alerts Substance Reaction Severity [...] 8.5 Gm,0 Refills, Maintenance, 12/22/21 10:40:00 EDT, [facility] #[id number], 2 puffs Inhalation Every 4 hours,PRN: NEEDED FOR WHEEZING/cough/shortness... Start Date: 12/22/21 Status: Ordered albuterol 0.083% inhalation solution 3 mL = 2.5 mg, Inhalation, Every 4 hours, PRN for wheezing/cough/shortness of breath, # 25 each, 0 Refills, Maintenance, 10/14/21 22:10:00 EDT, Solution, [facility] #[id number], Partial fill upon patient request if the [...] tablet, 0 Refills, Maintenance, 12/27/21 13:43:00 EDT, [facility] #[id number], 153, cm, 10/08/21 13:23:00 EDT, Height, 113.9, kg, 10/08/21 13:23:00EDT, Dry Weight Start Date: 12/27/21 Status: Ordered clonazePAM 0.5 mg oral tablet 1 tablet = 0.5 mg, By Mouth, 4 times a day, PRN Anxiety, Patient on controlled substance contract. Please do NOT fill until 09/23/2020, # 112 tablet, 0 Refills, Maintenance, 11/18/20 21:02:00 EDT, Tablet, [facility]/pharmacy #[id number], Partial fill upon patient... Start Date: 11/18/20 Status: Ordered diclofenac 1% topical gel = 1 Gm, Topically, 4 times a day, FOR PAIN., # 100 Gm, 1 Refills, [id number], 30, APPLY 1 GM TOPICALLY 4 TIMES A DAY FOR PAIN, 153, cm, 06/07/21 11:07:00 EST, Height, 105, kg, 05/31/21 15:15:00 EST, Dry Weight Start Date: 08/05/21 Status: Ordered Dilaudid 2 mg oral tablet 1 tablet = 2 mg, By Mouth, 2 times a day, PRN Pain , Severe, checked masspat, # 28 tablet, 0 Refills, Maintenance, 01/18/22 17:28:00 EDT, Tablet, [facility] #[id number], Partial fill upon patient request if the prescription is for a schedule II o... Start Date: 01/18/22 Status: Ordered Estrace Vaginal Cream 0.1 mg/g = 2 Gm, Vaginally, Daily at bedtime, 2g PV daily at bedtime x 2 weeks, then 1g PV 1-3x per week, # 42.5 Gm, 5 Refills, Maintenance, 11/09/21 11:17:00 EDT, [facility] #[id number], Partial fill upon patient request if the prescription is for a sche... Start Date: 11/09/21 Status: Ordered estradiol 0.0375 mg/24 hours twice weekly transdermal film, extended release See Instructions, 1 patch Topically, change patch twice a week, # 1 pack/packet, 1 Refills, Maintenance, 12/07/21 10:42:00 EDT, [facility] #[id number], Partial fill upon patient request if the prescription is for a schedule II opioid drug., 153,... Start Date: 12/07/21 Status: Ordered gabapentin 800 mg oral tablet See Instructions, TAKE 1 TABLET BY MOUTH FOUR TIMES DAILY, # 360 tablet, 0 Refills, [facility] #[id number], 153, cm, 10/08/21 13:23:00 EDT, Height, 113.9, [...] capsule, 1 Refills, Maintenance, 12/08/21 10:10:00 EDT, [facility] #[id number], 153, cm, 10/08/21 13:23:00 EDT, Height, 113.9,kg, [...] 1 Refills, Maintenance, 11/30/21 15:44:00 EDT, Tablet, [facility] #[id number], [place]... Start Date: 11/30/21 Status: Ordered levothyroxine 0.112 mg oral tablet 1 tablet, By Mouth, Daily, AVOID ANTACIDS, CALCIUM, OR IRON FOR AT LEAST 4 HOURS BEFORE OR 4 HOURS AFTER; ON AN ON AN EMPTY STOMACH, # 90 tablet, 0 Refills, Maintenance, 01/20/22 17:46:00 EDT, [facility] #[id number], 153, cm, 01/04/22 13:15:00 ED... Start Date: 01/20/22 Status: Ordered lidocaine 3% topical gel 1 application, Topically, 2 times a day, PRN as needed for pain, to replace 2% topical, # 28.5 Gm, 2 Refills, Acute 03/29/22 14:17:00 EST, 12/28/21 14:17:00 EDT, Gel, [facility] #[id number], Partial fill upon patient request if the prescription i... Start Date: 12/28/21 Stop Date: 03/29/22 Status: Ordered lidocaine 4% topical cream 1 application, Topically, 2 times a day, PRN Pain , Mild, # 30 Gm, 1 Refills, Acute 01/27/22 17:31:00 EDT, 12/28/21 17:31:00 EDT, Cream, [facility] #[id number], Partial fill upon patient requestif the prescription is for a schedule II opioid cedrick... Start Date: 12/28/21 Stop Date: 01/27/22 Status: Ordered meloxicam 15 mg oral tablet 1/2 TO 1 TABLET, By Mouth, Daily, PRN NEEDED FOR MODERATE PAIN, # 30 tablet, 5 Refills, Maintenance, 01/10/22 20:40:00 EDT, [facility] #[id number], 153, cm, 01/04/22 13:15:00 EDT, Height, 113.9, [...] capsule, 0 Refills, Maintenance, 01/16/22 8:28:00 EDT, [facility] #[id number], 153, cm, 01/04/22 13:15:00 EDT, Height, 113.9, kg, 10/08/21 13:23:00 EDT, Dry Weight Start Date: 01/16/22 Status: Ordered ondansetron 4 mg oral tablet 1 tablet = 4 mg, By Mouth, Every 8 hours, PRN Nausea & Vomiting, # 30 tablet, 1 Refills, Maintenance, 11/10/21 14:47:00 EDT, [facility] #[id number], 153, cm, 10/08/21 13:23:00 EDT, Height, 113.9, kg, 10/08/21 13:23:00 EDT, Dry Weight Start Date: 11/10/21 Status: Ordered oxybutynin 5 mg oral tablet 1 tablet, By Mouth, 3 times a day, # 270 tablet, 1 Refills, 01/10/22 10:29:00 EDT, [facility] #[id number], 153, cm, 01/04/22 13:15:00 EDT, Height, 113.9, [...] Personnel Name: Kaiden Chirinos MD Address: Address: [address] [place] [address] [facility] [address]
--- OUTSIDE RECORDS SUMMARY | 2022-12-30 08:28 | XMS_ITS | Continuity of Care Document ---
Author Name Unknown Organization [facility] Address [address] [place] [address]- Care Team Providers Care Painter Touch Up Name Role Phone Kaiden Chirinos MD Primary Care Physician Encounter [facility] [place] Date(s): 11/10/21 - 12/10/21 [facility] [address] [place], [place] [address] Allergies, Adverse Reactions, Alerts [...] 8.5 Gm,0 Refills, Maintenance, 12/08/21 20:52:00 EDT, [facility] #[id number], 2 puffs Inhalation Every 4 hours,PRN: NEEDED FOR WHEEZING/cough/shortness... Start Date: 12/08/21 Status: Ordered albuterol 0.083% inhalation solution 3 mL = 2.5 mg, Inhalation, Every 4 hours, PRN for wheezing/cough/shortness of breath, # 25 each, 0 Refills, Maintenance, 10/14/21 22:10:00 EDT, Solution, [facility] #[id number], Partial fill upon patient request if the prescription is for a sched... Start Date: 10/14/21 Status: Ordered benzonatate 100 mg oral capsule 2 capsule, By Mouth, 3 times a day, PRN NEEDED FOR COUGH, # 30 capsule, 1 Refills, Physician Stop 11/10/22 14:46:00 EDT, 03/19/22 17:38:00 EST, [facility] #[id number], 153, cm, 10/08/21 13:23:00 EDT, Height, 113.9, kg, 10/08/21 13:23:00 EDT, D... Start Date: 03/19/22 Stop Date: 11/10/22 Status: Ordered benzonatate 100 mg oral capsule 2 capsule, By Mouth, 3 times a day, PRN NEEDED FOR COUGH, # 30 capsule, 1 Refills, Physician Stop 12/10/22 15:43:00 EDT, 11/10/22 14:46:00 EDT, [facility] #[id number], 153, cm, 10/08/21 13:23:00 EDT, Height, 113.9, [...] Tablet, [facility]/pharmacy #[id number], Partial fill upon patient... Start Date: 11/18/20 Status: Ordered diclofenac 1% topical gel = 1 Gm, Topically, 4 times a day, FOR PAIN., # 100 Gm, 1 Refills, [facility] 02038, 30, APPLY 1 GM TOPICALLY 4 TIMES A DAY FOR PAIN, 153, cm, 06/07/21 11:07:00 EST, Height, 105, kg, 05/31/21 15:15:00 EST, Dry Weight Start Date: 08/05/21 Status: Ordered Dilaudid 2 mg oral tablet 1 tablet = 2 mg, By Mouth, 2 times a day, PRN Pain , Severe, checked masspat, # 28 tablet, 0 Refills, Maintenance, 12/07/21 13:30:00 EDT, Tablet, [facility] #[id number], Partial fill upon patient request if the prescription is for a schedule II o... Start Date: 12/07/21 Status: Ordered Estrace Vaginal Cream 0.1 mg/g = 2 Gm, Vaginally, Daily at bedtime, 2g PV daily at bedtime x 2 weeks, then 1g PV 1-3x per week, # 42.5 Gm, 5 Refills, Maintenance, 11/09/21 11:17:00 EDT, [facility] #[id number], Partial fill upon patient request if the prescription is for a sche... Start Date: 11/09/21 Status: Ordered estradiol 0.0375 mg/24 hours twice weekly transdermal film, extended release See Instructions, 1 patch Topically, change patch twice a week, # 1 pack/packet, 1 Refills, Maintenance, 12/07/21 10:42:00 EDT, [facility] #[id number], Partial fill upon patient request if the prescription is for a schedule II opioid drug., 153,... Start Date: 12/07/21 Status: Ordered gabapentin 800 mg oral tablet See Instructions, TAKE 1 TABLET BY MOUTH FOUR TIMES DAILY, # 360 tablet, 0 Refills, [facility] #[id number], 153, cm, 10/08/21 13:23:00 EDT, Height, 113.9, [...] capsule, 1 Refills, Maintenance, 12/08/21 10:10:00 EDT, [facility] #[id number], 153, cm, 10/08/21 13:23:00 EDT, Height, 113.9,kg, [...] 1 Refills, Maintenance, 07/30/21 12:25:00 EDT, Tablet, [facility] #[id number], Partial fill upon patient request if the prescription is for a schedule II opioid drug... Start Date: 07/30/21 Status: Ordered levothyroxine 0.1 mg oral tablet 1 tablet = 100 mcg, By Mouth, Daily, dose increase, # 90 tablet, 0 Refills, Maintenance, 11/01/21 16:08:00 EDT, [facility] #[id number], Please discontinue 88ug, 153, cm, 10/08/21 13:23:00 [...] 1 Refills, Maintenance, 11/30/21 15:44:00 EDT, Tablet, [facility] #[id number], [place]... Start Date: 11/30/21 Status: Ordered lidocaine 2% topical gel with applicator 5 mL = 0.1 Gm, Topically, 2 times a day, PRN Pain , Moderate, # 60 mL, 2 Refills, Soft Stop, 09/24/21 16:43:00 EDT, Gel, [facility] #[id number], Partial fill upon patient request if the prescription is for a schedule II opioid drug., 153, cm, ... Start Date: 09/24/21 Status: Ordered meloxicam 15 mg oral tablet 1/2 TO 1 TABLET, By Mouth, Daily, PRN NEEDED FOR MODERATE PAIN, # 30 tablet, 1 Refills, 229:04:00 EDT, [facility] #[id number], 153, cm, 10/08/21 13:23:00 EDT, Height, 113.9, [...] 90 capsule, 0 Refills, 09/27/21 14:31:00 EDT, [facility] #[id number], 153, cm, 08/10/21 11:19:00 EDT, Height, 105, kg, 05/31/21 15:15:00 EST, Dry Weight Start Date: 09/27/21 Status: Ordered ondansetron 4 mg oral tablet 1 tablet = 4 mg, By Mouth, Every 8 hours, PRN Nausea & Vomiting, # 30 tablet, 1 Refills, Maintenance, 11/10/21 14:47:00 EDT, [facility] #[id number], 153, cm, 10/08/21 13:23:00 EDT, Height, 113.9, kg, 10/08/21 13:23:00 EDT, Dry Weight Start Date: 11/10/21 Status: Ordered oxybutynin 5 mg oral tablet 1 tablet, By Mouth, 3 times a day, # 270 tablet, 1 Refills, [facility] STORE [id number], 153, cm, 08/10/21 11:19:00 EDT, Height, 105, kg, 05/31/21 15:15:00 EST, Dry Weight Start Date: 09/09/21 Status: Ordered Paxlovid 150 mg-100 mg (150 mg-100 mg Dose) oral tablet See Instructions, 2 tabs nirmatrelvir PO and 1 tab ritonavir PO twice daily for 5 days, # 30 tablet, 0 Refills, Acute 12/15/21 15:37:00 EDT, 12/10/21 15:36:00 EDT, [facility][id number], Partial fill upon patient request if the [...] Name: Candis CARDENAS, Kaiden Villalta Address: [address] [place] [address] Adult & Pediatric Medicine [place], [place] [address]
--- OUTSIDE RECORDS SUMMARY | 2022-12-30 08:28 | XMS_ITS | Continuity of Care Document ---
Author Name Unknown Organization [facility] Address [address] [place] [address]- Care Team Providers Care Quantitative Associate Name Role Phone Candis CARDENAS, Kaiden Villalta Primary Care Physician [place] [facility] [place] 11/04[place]20 - 12/04/20 [facility] [address] [place], [place] [address] Allergies, Adverse Reactions, Alerts [...] 16:39:00 EDT, Route to Pharmacy Electronically, [facility]/pharmacy #[id number], Partial fill upon patient request if the prescription is for a schedule II... Start Date: 09/22/20 Status: Ordered baclofen 10 mg oral tablet 10 mg, 1, tablet, By Mouth, 3 times a day, PRN, # 30 tablet, Refills 0, Tot. Refills 0, Maintenance, Spasm, 01/31/19 21:47:23 EDT, Route to Pharmacy Electronically, [id number], [facility]/pharmacy #[id number] Start Date: 01/31/19 Stop Date: [...] 1 Refills, Maintenance, 11/09/20 23:47:00EDT, Tablet, [facility]/pharmacy #[id number], Partial fill upon patient request [...] 1 Refills, Maintenance, 11/05/20 11:43:00 EDT, Tablet, [facility]/pharmacy #[id number], Partial fill upon patient request if the prescription is for a schedule II opioid drug., 160, cm, 10/30/20 8:2... Start Date: 11/05/20 Status: Ordered meloxicam 15 mg oral tablet See Instructions, PRN Pain , Moderate, 0.5 to1 tab PO daily with food, # 30 capsule, 1 Refills, Maintenance, 12/04/20 11:27:00 EDT, Tablet, [facility]/pharmacy #[id number], Partial fill upon patient request [...] Refills, Maintenance, 11/27/20 17:20:00 EDT, [id number], 160, cm, 10/30/20 8:28:00 EDT, Height, 105.5, [...]
--- OUTSIDE RECORDS SUMMARY | 2022-12-30 08:28 | XMS_ITS | Continuity of Care Document ---
Author Name Unknown Organization [facility] Address [address] [place] [address]- Care Team Providers Care Plastic Installer Name Role Phone Kaiden Chirinos MD Primary Care Physician Encounter [facility] Date(s): 09/01/20 - 10/01/20 [facility] [address] [place], [place] [address] Allergies, Adverse Reactions, Alerts Substance Reaction Severity Status morphine Active Adhesive Bandage Active Percocet 7.5/325 Active Medications amitriptyline 10 mg oral tablet 10 mg, 1, tablet, By Mouth, Daily at bedtime, # 90 tablet, Refills 1, Tot. Refills 1, Maintenance, 09/07/20 11:05:00 EDT, Route to Pharmacy Electronically, [facility]/pharmacy #[id number], Partial fill upon patient request if the prescription is for a schedule II... Start Date: 09/07/20 Status: Ordered amitriptyline 10 mg oral tablet 10 mg, 1, tablet, By Mouth, Daily at bedtime, # 90 tablet, Refills 1, Tot. Refills 1, Maintenance, 09/22/20 16:39:00 EDT, Route to Pharmacy Electronically, [facility]/pharmacy #[id number], Partial fill upon patient request if the prescription is for a schedule II... Start Date: 09/22/20 Status: Ordered baclofen 10 mg oral tablet 10 mg, 1, tablet, By Mouth, 3 times a day, PRN, # 30 tablet, Refills 0, Tot. Refills 0, Maintenance, Spasm, 01/31/19 21:47:23 EDT, Route to Pharmacy Electronically, [id number], [facility]/pharmacy #[id number] Start Date: 01/31/19 Stop Date: 02/14/19 Status: Ordered clonazePAM 0.5 mg oral tablet 1 tablet = 0.5 mg, By Mouth, 4 times a day, PRN Anxiety, Patient on controlled substance contract. Please do NOT fill until 09/23/2020, # 112 tablet, 1 Refills, Maintenance, 09/22/20 16:54:00 EDT, Tablet, [facility]/pharmacy #[id number], Partial fill upon patient... [...] 0 Refills, Maintenance, 09/01/20 20:10:00 EDT, Aerosol, [facility]/pharmacy #[id number], Partial fill upon patient [...] with sertraline 100mg tab in morning for [id number] per day, # 90 tablet, 1 Refills, Maintenance, 09/07/20 11:02:00 EDT, Tablet, [facility]/pharmacy #[id number], Partial fill upon patient [...]
--- OUTSIDE RECORDS SUMMARY | 2022-12-30 08:29 | XMS_ITS | Continuity of Care Document ---
Author Name Unknown Organization [facility] Address [address] [place] [address]- Care Team Providers Care Surgical Garment Fitter Name Role Phone Kaiden Chirinos MD Primary Care Physician Encounter [facility] [place] Date(s): 11/18/20 - 12/18/20 [facility] [address] [place], [place] [address] Allergies, Adverse Reactions, Alerts Substance [...] 09/22/20 16:39:00 EDT, Route to Pharmacy Electronically, [facility]/pharmacy #[id number], Partial fill upon patient request if the prescription is for a schedule II... Start Date: 09/22/20 Status: Ordered baclofen 10 mg oral tablet 10 mg, 1, tablet, By Mouth, 3 times a day, PRN, # 30 tablet, Refills 0, Tot. Refills 0, Maintenance, Spasm, 01/31/19 21:47:23 EDT, Route to Pharmacy Electronically, [id number], [facility]/pharmacy #[id number] Start Date: 01/31/19 Stop Date: 02/14/19 Status: Ordered clonazePAM 0.5 mg oral tablet 1 tablet = 0.5 mg, By Mouth, 4 times a day, PRN Anxiety, Patient on controlled substance contract. Please do NOT fill until 09/23/2020, # 112 tablet, 0 Refills, Maintenance, 11/18/20 21:02:00 EDT, Tablet, [facility]/pharmacy #[id number], Partial fill upon patient... Start Date: 11/18/20 Status: Ordered Famotidine 0 Refills, Maintenance, 04/07/19 16:11:00 EST Start Date: 04/07/19 Status: Ordered gabapentin 800 mg oral tablet 1 tablet = 800 mg, By Mouth, 4 times a day, # 360 tablet, 1 Refills, Maintenance, 11/09/20 23:47:00EDT, Tablet, [facility]/pharmacy #[id number], Partial fill upon patient [...] 1 Refills, Maintenance, 11/05/20 11:43:00 EDT, Tablet, [facility]/pharmacy #[id number], Partial fill upon patient [...] Refills, Maintenance, 11/27/20 17:20:00 EDT, [id number], 160, cm, 10/30/20 8:28:00 EDT, Height, 105.5, kg, 10/30/20 8:28:00 EDT, Dry Weight Start Date: 11/27/20 Status: Ordered ProAir HFA 90 mcg/inh inhalation aerosol 2 puffs, Inhalation, Every 4 hours, PRN as needed for wheezing, # 8.5 Gm, 0 Refills, Maintenance, 11/16/20 8:39:00 EDT, Aerosol, [facility]/pharmacy #[id number], Partial fill upon patient [...] 1 Refills, Maintenance, 10/30/20 8:45:00 EDT, Tablet, [facility]/pharmacy #[id number], Partial fill upon patient reques... Start Date: 10/30/20 Status: Ordered traZODone 150 mg oral tablet 1 tablet = 150 mg, By Mouth, Daily at bedtime, dose increase, # 90 tablet, 1 Refills, Maintenance, 11/03/20 13:28:00 EDT, Tablet, [facility]/pharmacy #[id number], Partial fill upon patient [...]
--- OUTSIDE RECORDS SUMMARY | 2022-12-30 08:29 | XMS_ITS | Continuity of Care Document ---
Author Name Unknown Organization [facility] Address [address] [facility] [address] [place] [address]- Care Team Providers Care Sales Representative Meats Name Role Phone Candis CARDENAS, Kaiden Villalta Primary Care Physician [phone] Encounter [facility] [place] Date(s): 12/30/21 - 03/10/22 [facility] [address] [address]- Attending Physician: Not on Staff, Attending MD [...] 8.5 Gm,0 Refills, Maintenance, 12/22/21 10:40:00 EDT, [facility] #[id number], 2 puffs Inhalation Every 4 hours,PRN: NEEDED FOR WHEEZING/cough/shortness... Start Date: 12/22/21 Status: Ordered albuterol 0.083% inhalation solution 3 mL = 2.5 mg, Inhalation, Every 4 hours, PRN for wheezing/cough/shortness of breath, # 25 each, 0 Refills, Maintenance, 10/14/21 22:10:00 EDT, Solution, [facility] #[id number], Partial fill upon patient request if the prescription is for a sched... Start Date: 10/14/21 Status: Ordered Linwood Saline Mist 0.65% nasal spray 2 sprays, Nares, Both, 4 times a day, # 1 each, 0 Refills, Maintenance, 02/04/22 13:32:00 EDT, [facility] #[id number], Partial fill upon patient request if the [...] tablet, 0 Refills, Maintenance, 12/27/21 13:43:00 EDT, [facility] #[id number], 153, cm, 10/08/21 13:23:00 EDT, Height, 113.9, [...] FOR PAIN., # 100 Gm, 1 Refills, [facility] 25832, 30, APPLY 1 GM TOPICALLY 4 TIMES A DAY FOR PAIN, 153, cm, 06/07/21 11:07:00 EST, Height, 105, kg, 05/31/21 15:15:00 EST, Dry Weight Start Date: 08/05/21 Status: Ordered Dilaudid 2 mg oral tablet 1 tablet = 2 mg, By Mouth, 2 times a day, PRN Pain , Severe, checked masspat, # 28 tablet, 0 Refills, Maintenance, 03/04/22 14:11:00 EST, Tablet, [facility] #65827, Partial fill upon patient request if the prescription is for a schedule II o... Start Date: 03/04/22 Status: Ordered Estrace Vaginal Cream 0.1 mg/g = 2 Gm, Vaginally, Daily at bedtime, 2g PV daily at bedtime x 2 weeks, then 1g PV 1-3x per week, # 42.5 Gm, 5 Refills, Maintenance, 11/09/21 11:17:00 EDT, [facility] #[id number], Partial fill upon patient request if the prescription is for a sche... Start Date: 11/09/21 Status: Ordered Estradiol Patch 0.0375 mg/24 hours twice weekly transdermal film, extended release See Instructions, APPLY 1 PATCH TOPICALLY TWICE WEEKLY DIRECTED, # 8 patch, 0 Refills, Maintenance, 02/26/22 10:23:00 EST, [facility] #[id number], 28, APPLY 1 PATCH TOPICALLY TWICE WEEKLY DIRECTED, 153, cm, 01/04/22 13:15:00 EDT, Height, 11... Start Date: 02/26/22 Status: Ordered fluconazole 150 mg oral tablet 1 tablet = 150 mg, By Mouth, Once, # 1 tablet, 0 Refills, Soft Stop, 02/14/22 14:41:00 EDT, Tablet,[facility] #[id number], Partial fill upon patient request if the prescription is for a schedule II opioid drug., 153, cm, 01/04/22 13:15:00 EDT, H... Start Date: 02/14/22 Status: Ordered gabapentin 800 mg oral tablet See Instructions, TAKE 1 TABLET BY MOUTH FOUR TIMES DAILY, # 360 tablet, 0 Refills, [facility] #[id number], 153, cm, 10/08/21 13:23:00 EDT, Height, 113.9, [...] capsule, 1 Refills, Maintenance, 12/08/21 10:10:00 EDT, [facility] #[id number], 153, cm, 10/08/21 13:23:00 EDT, Height, 113.9,kg, [...] tablet, 0 Refills, Maintenance, 01/20/22 17:46:00 EDT, [facility] #[id number], 153, cm, 01/04/22 13:15:00 ED... Start Date: 01/20/22 Status: Ordered lidocaine 3% topical gel 1 application, Topically, 2 times a day, PRN as needed for pain, to replace 2% topical, # 28.5 Gm, 2 Refills, Acute 03/29/22 14:17:00 EST, 12/28/21 14:17:00 EDT, Gel, [facility] #[id number], Partial fill upon patient request if the prescription i... Start Date: 12/28/21 Stop Date: 03/29/22 Status: Ordered meloxicam 15 mg oral tablet 1/2 TO 1 TABLET, By Mouth, Daily, PRN NEEDED FOR MODERATE PAIN, # 30 tablet, 5 Refills, Maintenance, 01/10/22 20:40:00 EDT, [facility] #[id number], 153, cm, 01/04/22 13:15:00 EDT, Height, 113.9, [...] capsule, 0 Refills, Maintenance, 01/16/22 8:28:00 EDT, [facility] #[id number], 153, cm, 01/04/22 13:15:00 EDT, Height, 113.9, kg, 10/08/21 13:23:00 EDT, Dry Weight Start Date: 01/16/22 Status: Ordered ondansetron 4 mg oral tablet 1 tablet, By Mouth, Every 8 hours, PRN NEEDED FOR NAUSEA OR VOMITING, # 30 tablet, 0 Refills, Maintenance, 03/01/22 11:29:00 EST, [facility] #[id number], 153, cm, 01/04/22 13:15:00 EDT, Height, 113.9, kg, 10/08/21 13:23:00 EDT, Dry Weight Start Date: 03/01/22 Status: Ordered oxybutynin 5 mg oral tablet 1 tablet, By Mouth, 3 times a day, # 270 tablet, 1 Refills, 01/10/22 10:29:00 EDT, [facility] #[id number], 153, cm, 01/04/22 13:15:00 EDT, Height, 113.9, [...] 02/18/22 16:37:00 EDT, Route to Pharmacy Electronically, [facility] #[id number], Partial fill upon patient request if the [...] Care Physician Member Role: PCP Address: Address: [address] [place] [address] Adult & [place] [address]- Care Team Related Persons Name: RODOLFO SHEIKH Address: home [address] [facility] [address] [place] [address] Name: CHIARA TEE Address: home [address] [place] [address] [place] [id number]
--- OUTSIDE RECORDS SUMMARY | 2022-12-30 08:29 | XMS_ITS | Continuity of Care Document ---
Author Name Unknown Organization [facility] Address [address] [place] [address]- Care Team Providers Care Streetsweeper Operator Name Role Phone Kaiden Chirinos MD Primary Care Physician [phone] Encounter [facility] Date(s): 05/13/21 - 06/12/21 [facility] [address] [place], [place] [address] Allergies, Adverse Reactions, Alerts Substance [...] # 8.5 each, 0 Refills, [id number], 20, INHALE 2 PUFFS BY MOUTH EVERY [...] 01/31/19 21:47:23 EDT, Route to Pharmacy Electronically, [id number], [facility]/pharmacy #[id number] Start Date: 01/31/19 [...] 0 Refills, Maintenance, 11/18/20 21:02:00 EDT, Tablet, [facility]/pharmacy #[id number], Partial fill upon patient... Start Date: 11/18/20 Status: Ordered Dilaudid 2 mg oral tablet 1 tablet = 2 mg, By Mouth, Every 8 hours, PRN Pain , Severe, dose increase, # 28 tablet, 0 Refills,Acute 06/24/21 17:15:00 EST, 06/10/21 17:12:00 EST, Tablet, [facility]/pharmacy #[id number], Partial fill upon patient request if the prescription is for a schedule... Start Date: 06/10/21 Stop Date: 06/24/21 Status: Ordered Famotidine 0 Refills, Maintenance, 04/07/19 16:11:00 EST Start Date: 04/07/19 Status: Ordered gabapentin 800 mg oral tablet 1 tablet, By Mouth, 4 times a day, # 360 tablet, 1 Refills, [facility] [id number], 160, cm, 03/30/21 10:47:00 EST, Height, 104.6, [...] 1 Refills, Maintenance, 06/07/21 19:08:00 EST, Capsule, [facility]/pharmacy #[id number], Partial fill upon [...] capsule, 1 Refills, [facility] 04150, 160, cm, 03/30/21 10:47:00 EST, Height, 104.6, [...] 1 each,1 Refills, Maintenance, 03/30/21 20:35:00 EST, [facility]/pharmacy #[id number], Partial fill upon [...] 1 Refills, Maintenance, 10/30/20 8:45:00 EDT, Tablet, [facility]/pharmacy #[id number], Partial fill upon patient reques... Start Date: 10/30/20 Status: Ordered traZODone 150 mg oral tablet 1.5 tablet = 225 mg, By Mouth, Daily at bedtime, dose increase, # 135 tablet, 1 Refills, Maintenance, 04/06/21 12:26:00 EST, Tablet, [facility]/pharmacy #[id number], Partial [...] Topically 4... Start Date: 06/11/21 Status: Ordered Voltaren 1% topical gel 1 [...]
--- OUTSIDE RECORDS SUMMARY | 2022-12-30 08:29 | XMS_ITS | Continuity of Care Document ---
Author Name Unknown Organization [facility] Address [address] [place] [address]- Care Team Providers Care Tack Picker Name Role Phone Candis CARDENAS, Kaiden Villalta Primary Care Physician [phone] Encounter [facility] [place] Date(s): 12/29/21 - 01/28/22 [facility] [address] [place], [place] [address] Allergies, Adverse Reactions, Alerts [...] 8.5 Gm,0 Refills, Maintenance, 12/22/21 10:40:00 EDT, [facility] #[id number], 2 puffs Inhalation Every 4 hours,PRN: NEEDED FOR WHEEZING/cough/shortness... Start Date: 12/22/21 Status: Ordered albuterol 0.083% inhalation solution 3 mL = 2.5 mg, Inhalation, Every 4 hours, PRN for wheezing/cough/shortness of breath, # 25 each, 0 Refills, Maintenance, 10/14/21 22:10:00 EDT, Solution, [facility] #[id number], Partial fill upon patient request if the [...] tablet, 0 Refills, Maintenance, 12/27/21 13:43:00 EDT, [facility][id number], 153, cm, 10/08/21 13:23:00 EDT, Height, 113.9, kg, 10/08/21 13:23:00EDT, Dry Weight Start Date: 12/27/21 Status: Ordered clonazePAM 0.5 mg oral tablet 1 tablet = 0.5 mg, By Mouth, 4 times a day, PRN Anxiety, Patient on controlled substance contract. Please do NOT fill until 09/23/2020, # 112 tablet, 0 Refills, Maintenance, 11/18/20 21:02:00 EDT, Tablet, [facility]/pharmacy #[id number], Partial fill upon patient... Start Date: 11/18/20 Status: Ordered diclofenac 1% topical gel = 1 Gm, Topically, 4 times a day, FOR PAIN., # 100 Gm, 1 Refills, [facility], 30, APPLY 1 GM TOPICALLY 4 TIMES A DAY FOR PAIN, 153, cm, 06/07/21 11:07:00 EST, Height, 105, kg, 05/31/21 15:15:00 EST, Dry Weight Start Date: 08/05/21 Status: Ordered Dilaudid 2 mg oral tablet 1 tablet = 2 mg, By Mouth, 2 times a day, PRN Pain , Severe, checked masspat, # 28 tablet, 0 Refills, Maintenance, 01/18/22 17:28:00 EDT, Tablet, [facility][id number], Partial fill upon patient request if the prescription is for a schedule II o... Start Date: 01/18/22 Status: Ordered Estrace Vaginal Cream 0.1 mg/g = 2 Gm, Vaginally, Daily at bedtime, 2g PV daily at bedtime x 2 weeks, then 1g PV 1-3x per week, # 42.5 Gm, 5 Refills, Maintenance, 11/09/21 11:17:00 EDT, [facility] #[id number], Partial fill upon patient request if the prescription is for a sche... Start Date: 11/09/21 Status: Ordered estradiol 0.0375 mg/24 hours twice weekly transdermal film, extended release See Instructions, 1 patch Topically, change patch twice a week, # 1 pack/packet, 1 Refills, Maintenance, 12/07/21 10:42:00 EDT, [facility] #[id number], Partial fill upon patient request if the prescription is for a schedule II opioid drug., 153,... Start Date: 12/07/21 Status: Ordered gabapentin 800 mg oral tablet See Instructions, TAKE 1 TABLET BY MOUTH FOUR TIMES DAILY, # 360 tablet, 0 Refills, [facility][id number], 153, cm, 10/08/21 13:23:00 EDT, Height, 113.9, [...] capsule, 1 Refills, Maintenance, 12/08/21 10:10:00 EDT, [facility] #[id number], 153, cm, 10/08/21 13:23:00 EDT, Height, 113.9,kg, [...] 1 Refills, Maintenance, 11/30/21 15:44:00 EDT, Tablet, [facility] #[id number], [place]... Start Date: 11/30/21 Status: Ordered levothyroxine 0.112 mg oral tablet 1 tablet, By Mouth, Daily, AVOID ANTACIDS, CALCIUM, OR IRON FOR AT LEAST 4 HOURS BEFORE OR 4 HOURS AFTER; ON AN ON AN EMPTY STOMACH, # 90 tablet, 0 Refills, Maintenance, 01/20/22 17:46:00 EDT, [facility] #[id number], 153, cm, 01/04/22 13:15:00 ED... Start Date: 01/20/22 Status: Ordered lidocaine 3% topical gel 1 application, Topically, 2 times a day, PRN as needed for pain, to replace 2% topical, # 28.5 Gm, 2 Refills, Acute 03/29/22 14:17:00 EST, 12/28/21 14:17:00 EDT, Gel, [facility] #[id number], Partial fill upon patient request if the prescription i... Start Date: 12/28/21 Stop Date: 03/29/22 Status: Ordered meloxicam 15 mg oral tablet 1/2 TO 1 TABLET, By Mouth, Daily, PRN NEEDED FOR MODERATE PAIN, # 30 tablet, 5 Refills, Maintenance, 01/10/22 20:40:00 EDT, [facility] #[id number], 153, cm, 01/04/22 13:15:00 EDT, Height, 113.9, [...] capsule, 0 Refills, Maintenance, 01/16/22 8:28:00 EDT, [facility] #[id number], 153, cm, 01/04/22 13:15:00 EDT, Height, 113.9, kg, 10/08/21 13:23:00 EDT, Dry Weight Start Date: 01/16/22 Status: Ordered ondansetron 4 mg oral tablet 1 tablet = 4 mg, By Mouth, Every 8 hours, PRN Nausea & Vomiting, # 30 tablet, 1 Refills, Maintenance, 11/10/21 14:47:00 EDT, [facility] #[id number], 153, cm, 10/08/21 13:23:00 EDT, Height, 113.9, kg, 10/08/21 13:23:00 EDT, Dry Weight Start Date: 11/10/21 Status: Ordered oxybutynin 5 mg oral tablet 1 tablet, By Mouth, 3 times a day, # 270 tablet, 1 Refills, 01/10/22 10:29:00 EDT, [facility] #[id number], 153, cm, 01/04/22 13:15:00 EDT, Height, 113.9, [...] Name: Candis CARDENAS, Kaiden Villalta Address: Address: [address] [place] [address] Adult [facility] Pediatric [facility] [place], [place] [address]
--- OUTSIDE RECORDS SUMMARY | 2022-12-30 08:29 | XMS_ITS | Continuity of Care Document ---
Author Name Unknown Organization [facility] Address [address] [place] [address]- Care Team Providers Care Outpatient Physical Therapist Assistant Name Role Phone Kaiden Chirinos MD Primary Care Physician Encounter [facility] Date(s): 12/07/21 - 01/06/22 [facility] [address] [place], [place] [address] Allergies, Adverse Reactions, Alerts Substance [...] 8.5 Gm,0 Refills, Maintenance, 12/22/21 10:40:00 EDT, [facility] #[id number], 2 puffs Inhalation Every 4 hours,PRN: NEEDED FOR WHEEZING/cough/shortness... Start Date: 12/22/21 Status: Ordered albuterol 0.083% inhalation solution 3 mL = 2.5 mg, Inhalation, Every 4 hours, PRN for wheezing/cough/shortness of breath, # 25 each, 0 Refills, Maintenance, 10/14/21 22:10:00 EDT, Solution, [facility] #[id number], Partial fill upon patient request if the [...] tablet, 0 Refills, Maintenance, 12/27/21 13:43:00 EDT, [facility] #[id number], 153, cm, 10/08/21 13:23:00 EDT, Height, 113.9, kg, 10/08/21 13:23:00EDT, Dry Weight Start Date: 12/27/21 Status: Ordered clonazePAM 0.5 mg oral tablet 1 tablet = 0.5 mg, By Mouth, 4 times a day, PRN Anxiety, Patient on controlled substance contract. Please do NOT fill until 09/23/2020, # 112 tablet, 0 Refills, Maintenance, 11/18/20 21:02:00 EDT, Tablet, [facility]/pharmacy #[id number], Partial fill upon patient... Start Date: 11/18/20 Status: Ordered diclofenac 1% topical gel = 1 Gm, Topically, 4 times a day, FOR PAIN., # 100 Gm, 1 Refills, [facility], 30, APPLY 1 GM TOPICALLY 4 TIMES A DAY FOR PAIN, 153, cm, 06/07/21 11:07:00 EST, Height, 105, kg, 05/31/21 15:15:00 EST, Dry Weight Start Date: 08/05/21 Status: Ordered Dilaudid 2 mg oral tablet 1 tablet = 2 mg, By Mouth, 2 times a day, PRN Pain , Severe, checked masspat, # 28 tablet, 0 Refills, Maintenance, 01/05/22 10:35:00 EDT, Tablet, [facility] #[id number], Partial fill upon patient request if the prescription is for a schedule II o... Start Date: 01/05/22 Status: Ordered Estrace Vaginal Cream 0.1 mg/g = 2 Gm, Vaginally, Daily at bedtime, 2g PV daily at bedtime x 2 weeks, then 1g PV 1-3x per week, # 42.5 Gm, 5 Refills, Maintenance, 11/09/21 11:17:00 EDT, [facility] #[id number], Partial fill upon patient request if the prescription is for a sche... Start Date: 11/09/21 Status: Ordered estradiol 0.0375 mg/24 hours twice weekly transdermal film, extended release See Instructions, 1 patch Topically, change patch twice a week, # 1 pack/packet, 1 Refills, Maintenance, 12/07/21 10:42:00 EDT, [facility] #[id number], Partial fill upon patient request if the prescription is for a schedule II opioid drug., 153,... Start Date: 12/07/21 Status: Ordered gabapentin 800 mg oral tablet See Instructions, TAKE 1 TABLET BY MOUTH FOUR TIMES DAILY, # 360 tablet, 0 Refills, [facility] #[id number], 153, cm, 10/08/21 13:23:00 EDT, Height, 113.9, [...] capsule, 1 Refills, Maintenance, 12/08/21 10:10:00 EDT, [facility] #[id number], 153, cm, 10/08/21 13:23:00 EDT, Height, 113.9,kg, [...] tablet, 1 Refills, Maintenance, 07/30/21 12:25:00 EDT, [facility] [employer], [facility] #[id number], Partial fill upon patient request if the prescription is for a schedule II opioid drug... Start Date: 07/30/21 Status: Ordered levothyroxine 0.1 mg oral tablet 1 tablet = 100 mcg, By Mouth, Daily, dose increase, # 90 tablet, 0 Refills, Maintenance, 11/01/21 16:08:00 EDT, [facility] #[id number], Please discontinue 88ug, 153, cm, 10/08/21 13:23:00 [...] tablet, 1 Refills, Maintenance, 11/30/21 15:44:00 EDT, [facility] #[id number], [place]... Start Date: 11/30/21 Status: Ordered lidocaine 3% topical gel 1 application, Topically, 2 times a day, PRN as needed for pain, to replace 2% topical, # 28.5 Gm, 2 Refills, Acute 03/29/22 14:17:00 EST, 12/28/21 14:17:00 EDT, Gel, [facility] #[id number], Partial fill upon patient request if the prescription i... Start Date: 12/28/21 Stop Date: 03/29/22 Status: Ordered lidocaine 4% topical cream 1 application, Topically, 2 times a day, PRN Pain , Mild, # 30 Gm, 1 Refills, Acute 01/27/22 17:31:00 EDT, 12/28/21 17:31:00 EDT, Cream, [facility] #[id number], Partial fill upon patient requestif the prescription is for a schedule II opioid cedrick... Start Date: 12/28/21 Stop Date: 01/27/22 Status: Ordered meloxicam 15 mg oral tablet 1/2 TO 1 TABLET, By Mouth, Daily, PRN NEEDED FOR MODERATE PAIN, # 30 tablet, 1 Refills, :04:00 EDT, [facility] #[id number], 153, cm, 10/08/21 13:23:00 EDT, Height, 113.9, [...] 90 capsule, 0 Refills, 09/27/21 14:31:00 EDT, [facility] #[id number], 153, cm, 08/10/21 11:19:00 EDT, Height, 105, kg, 05/31/21 15:15:00 EST, Dry Weight Start Date: 09/27/21 Status: Ordered ondansetron 4 mg oral tablet 1 tablet = 4 mg, By Mouth, Every 8 hours, PRN Nausea & Vomiting, # 30 tablet, 1 Refills, Maintenance, 11/10/21 14:47:00 EDT, [facility] #[id number], 153, cm, 10/08/21 13:23:00 EDT, Height, 113.9, kg, 10/08/21 13:23:00 EDT, Dry Weight Start Date: 11/10/21 Status: Ordered oxybutynin 5 mg oral tablet 1 tablet, By Mouth, 3 times a day, # 270 tablet, 1 Refills, 01/05/22 9:12:00 EDT, [facility] #[id number], 153, cm, 01/04/22 13:15:00 EDT, Height, 113.9, [...] 01/11/22 13:32:00 EDT, 01/04/22 13:32:00 EDT, Tablet, [facility] #[id number], Partial fill upon patient request if the [...] Personnel Name: Candis CARDENAS, Kaiden Villalta Address: [address] [place] [address] Adult [facility] Pediatric Medicine [place], [place] [address]
--- OUTSIDE RECORDS SUMMARY | 2022-12-30 08:29 | XMS_ITS | Continuity of Care Document ---
Author Name Unknown Organization [facility] Address [address] [place] [address]- Care Team Providers Care Home Care Liaison Name Role Phone Kaiden Chirinos MD Primary Care Physician [place] [facility] 12/07/21 - 01/06/22 [facility] [address] [place], [place] [address] Allergies, Adverse [...] 8.5 Gm,0 Refills, Maintenance, 12/22/21 10:40:00 EDT, [facility] #[id number], 2 puffs Inhalation Every 4 hours,PRN: NEEDED FOR WHEEZING/cough/shortness... Start Date: 12/22/21 Status: Ordered albuterol 0.083% inhalation solution 3 mL = 2.5 mg, Inhalation, Every 4 hours, PRN for wheezing/cough/shortness of breath, # 25 each, 0 Refills, Maintenance, 10/14/21 22:10:00 EDT, Solution, [facility] #[id number], Partial fill upon patient request if the [...] tablet, 0 Refills, Maintenance, 12/27/21 13:43:00 EDT, [facility] #[id number], 153, cm, 10/08/21 13:23:00 EDT, Height, 113.9, [...] FOR PAIN., # 100 Gm, 1 Refills, [facility], 30, APPLY 1 GM TOPICALLY 4 TIMES A DAY FOR PAIN, 153, cm, 06/07/21 11:07:00 EST, Height, 105, kg, 05/31/21 15:15:00 EST, Dry Weight Start Date: 08/05/21 Status: Ordered Dilaudid 2 mg oral tablet 1 tablet = 2 mg, By Mouth, 2 times a day, PRN Pain , Severe, checked masspat, # 28 tablet, 0 Refills, Maintenance, 01/05/22 10:35:00 EDT, Tablet, [facility] #[id number], Partial fill upon patient request if the prescription is for a schedule II o... Start Date: 01/05/22 Status: Ordered Estrace Vaginal Cream 0.1 mg/g = 2 Gm, Vaginally, Daily at bedtime, 2g PV daily at bedtime x 2 weeks, then 1g PV 1-3x per week, # 42.5 Gm, 5 Refills, Maintenance, 11/09/21 11:17:00 EDT, [facility] #[id number], Partial fill upon patient request if the prescription is for a sche... Start Date: 11/09/21 Status: Ordered estradiol 0.0375 mg/24 hours twice weekly transdermal film, extended release See Instructions, 1 patch Topically, change patch twice a week, # 1 pack/packet, 1 Refills, Maintenance, 12/07/21 10:42:00 EDT, [facility] #55525, Partial fill upon patient request if the prescription is for a schedule II opioid drug., 153,... Start Date: 12/07/21 Status: Ordered gabapentin 800 mg oral tablet See Instructions, TAKE 1 TABLET BY MOUTH FOUR TIMES DAILY, # 360 tablet, 0 Refills, [facility] #[id number], 153, cm, 10/08/21 13:23:00 EDT, Height, 113.9, [...] capsule, 1 Refills, Maintenance, 12/08/21 10:10:00 EDT, [facility] #[id number], 153, cm, 10/08/21 13:23:00 EDT, Height, 113.9,kg, [...] tablet, 1 Refills, Maintenance, 07/30/21 12:25:00 EDT, [facility] #[id number], Partial fill upon patient request if the prescription is for a schedule II opioid drug... Start Date: 07/30/21 Status: Ordered levothyroxine 0.1 mg oral tablet 1 tablet = 100 mcg, By Mouth, Daily, dose increase, # 90 tablet, 0 Refills, Maintenance, 11/01/21 16:08:00 EDT, [facility] #[id number], Please discontinue 88ug, 153, cm, 10/08/21 13:23:00 [...] tablet, 1 Refills, Maintenance, 11/30/21 15:44:00 EDT, [facility] #[id number], [place] Start Date: 11/30/21 Status: Ordered lidocaine 3% topical gel 1 application, Topically, 2 times a day, PRN as needed for pain, to replace 2% topical, # 28.5 Gm, 2 Refills, Acute 03/29/22 14:17:00 EST, 12/28/21 14:17:00 EDT, Gel, [facility] #05794, Partial fill upon patient request if the prescription i... Start Date: 12/28/21 Stop Date: 03/29/22 Status: Ordered lidocaine 4% topical cream 1 application, Topically, 2 times a day, PRN Pain , Mild, # 30 Gm, 1 Refills, Acute 01/27/22 17:31:00 EDT, 12/28/21 17:31:00 EDT, Cream, [facility] #25326, Partial fill upon patient requestif the prescription is for a schedule II opioid cedrick... Start Date: 12/28/21 Stop Date: 01/27/22 Status: Ordered meloxicam 15 mg oral tablet 1/2 TO 1 TABLET, By Mouth, Daily, PRN NEEDED FOR MODERATE PAIN, # 30 tablet, 1 Refills, :04:00 EDT, [facility] #04169, 153, cm, 10/08/21 13:23:00 EDT, Height, 113.9, [...] 90 capsule, 0 Refills, 09/27/21 14:31:00 EDT, [facility] #16653, 153, cm, 08/10/21 11:19:00 EDT, Height, 105, kg, 05/31/21 15:15:00 EST, Dry Weight Start Date: 09/27/21 Status: Ordered ondansetron 4 mg oral tablet 1 tablet = 4 mg, By Mouth, Every 8 hours, PRN Nausea & Vomiting, # 30 tablet, 1 Refills, Maintenance, 11/10/21 14:47:00 EDT, [facility] #[id number], 153, cm, 10/08/21 13:23:00 EDT, Height, 113.9, kg, 10/08/21 13:23:00 EDT, Dry Weight Start Date: 11/10/21 Status: Ordered oxybutynin 5 mg oral tablet 1 tablet, By Mouth, 3 times a day, # 270 tablet, 1 Refills, 01/05/22 9:12:00 EDT, [facility] #[id number], 153, cm, 01/04/22 13:15:00 EDT, Height, 113.9, [...] 01/11/22 13:32:00 EDT, 01/04/22 13:32:00 EDT, Tablet, [facility] #[id number], Partial fill upon patient request if the [...] Name: Candis CARDENAS, Kaiden Villalta Address: [address] [place] [address] Adult & Pediatric Medicine [place], [place] [address]
--- OUTSIDE RECORDS SUMMARY | 2022-12-30 08:29 | XMS_ITS | Continuity of Care Document ---
Author Name Unknown Organization [facility] Address [address] [place] [address]- Care Team Providers Care Skylights Assembler Name Role Phone Candis CARDENAS, Kaiden Villalta Primary Care Physician Encounter [facility] [place] Date(s): 01/07/21 - 02/06/21 [facility] [address] [place], [place] [address] Allergies, Adverse Reactions, Alerts [...] 16:08:00 EDT, Route to Pharmacy Electronically, [facility]/pharmacy #[id number], Partial fill upon patient request if the prescription is for a schedule II... Start Date: 12/24/20 Status: Ordered baclofen 10 mg oral tablet 10 mg, 1, tablet, By Mouth, 3 times a day, PRN, # 30 tablet, Refills 0, Tot. Refills 0, Maintenance, Spasm, 01/31/19 21:47:23 EDT, Route to Pharmacy Electronically, [id number], [facility]/pharmacy #[id number] Start Date: 01/31/19 Stop Date: 02/14/19 Status: Ordered benzonatate 100 mg oral capsule 2 capsule, By Mouth, 3 times a day, PRN NEEDED FOR COUGH, # 30 capsule, 0 Refills, Physician Stop 03/06/21 13:27:00 EST, 02/03/21 13:26:00 EDT, [facility]/pharmacy #[id number], 160, cm, [...] 1 Refills, Maintenance, 11/09/20 23:47:00EDT, Tablet, [facility]/pharmacy #[id number], Partial fill upon patient request [...] 1 Refills, Maintenance, 11/05/20 11:43:00 EDT, Tablet, [facility]/pharmacy #[id number], Partial fill upon patient request if the prescription is for a schedule II opioid drug., 160, cm, 10/30/20 8:2... Start Date: 11/05/20 Status: Ordered meloxicam 15 mg oral tablet 1/2 TO 1 TABLET, By Mouth, Daily, PRN NEEDED FOR MODERATE PAIN, # 30 tablet, 1 Refills, [facility] 71358, 160, cm, 12/04/20 10:52:00 EDT, Height, 104.6, kg, 12/04/20 10:52:00 EDT, Dry Weight Start Date: 01/22/21 Status: Ordered omeprazole 20 mg oral enteric coated capsule 1 capsule, By Mouth, Daily, # 90 capsule, 0 Refills, Maintenance, 01/14/21 13:42:00 EDT, [facility]/pharmacy #[id number], 160, cm, [...]
--- OUTSIDE RECORDS SUMMARY | 2022-12-30 08:29 | XMS_ITS | Continuity of Care Document ---
Author Name Unknown Organization [facility] Address [address] [place] [address]- Care Team Providers Care Plate Furnace Operator Name Role Phone Candis CARDENAS, Kaiden Villalta Primary Care Physician [place] [facility] [place] 10/12/21 - 11/11/21 [facility] [address] [place], [place] [address] Allergies, Adverse Reactions, Alerts [...] 8.5 Gm,0 Refills, Maintenance, 09/28/21 16:57:00 EDT, [facility] #[id number], 2 puffs Inhalation Every 4 hours,PRN: NEEDED FOR WHEEZING/cough/shortness... Start Date: 09/28/21 Status: Ordered albuterol 0.083% inhalation solution 3 mL = 2.5 mg, Inhalation, Every 4 hours, PRN for wheezing/cough/shortness of breath, # 25 each, 0 Refills, Maintenance, 10/14/21 22:10:00 EDT, Solution, [facility] #[id number], Partial fill upon patient request if the prescription is for a sched... Start Date: 10/14/21 Status: Ordered benzonatate 100 mg oral capsule 2 capsule, By Mouth, 3 times a day, PRN NEEDED FOR COUGH, # 30 capsule, 1 Refills, Physician Stop 11/10/22 14:46:00 EDT, 03/19/22 17:38:00 EST, [facility] #[id number], 153, cm, 10/08/21 13:23:00 EDT, Height, 113.9, kg, 10/08/21 13:23:00 EDT, D... Start Date: 03/19/22 Stop Date: 11/10/22 Status: Ordered budesonide 1 mg/2 mL inhalation suspension 2 mL = 1 mg, Neb, 2 times a day, rinse mouth out after use, # 120 mL, 1 Refills, Maintenance, 10/25/21 18:30:00 EDT, Suspension, [facility] #[id number], Partial fill upon patient request if the [...] FOR PAIN., # 100 Gm, 1 Refills, [id number], 30, APPLY 1 GM TOPICALLY 4 TIMES A DAY FOR PAIN, 153, cm, 06/07/21 11:07:00 EST, Height, 105, kg, 05/31/21 15:15:00 EST, Dry Weight Start Date: 08/05/21 Status: Ordered Dilaudid 2 mg oral tablet 1 tablet = 2 mg, By Mouth, 2 times a day, PRN Pain , Severe, checked masspat, # 28 tablet, 0 Refills, Maintenance, 11/10/21 14:47:00 EDT, Tablet, [facility] #[id number], Partial fill upon patient request if the prescription is for a schedule II o... Start Date: 11/10/21 Status: Ordered Estrace Vaginal Cream 0.1 mg/g = 2 Gm, Vaginally, Daily at bedtime, 2g PV daily at bedtime x 2 weeks, then 1g PV 1-3x per week, # 42.5 Gm, 5 Refills, Maintenance, 11/09/21 11:17:00 EDT, [facility] #[id number], Partial fill upon patient request if the prescription is for a sche... Start Date: 11/09/21 Status: Ordered gabapentin 800 mg oral tablet See Instructions, TAKE 1 TABLET BY MOUTH FOUR TIMES DAILY, # 360 tablet, 0 Refills, [facility] #[id number], 153, cm, 10/08/21 13:23:00 EDT, Height, 113.9, [...] capsule, 1 Refills, Maintenance, 09/28/21 16:58:00 EDT, [facility] #[id number], 153, cm, 08/10/21 11:19:00 EDT, Height, 105, [...] 1 Refills, Maintenance, 07/30/21 12:25:00 EDT, Tablet, [facility] #[id number], Partial fill upon patient request if the prescription is for a schedule II opioid drug... Start Date: 07/30/21 Status: Ordered levothyroxine 0.1 mg oral tablet 1 tablet = 100 mcg, By Mouth, Daily, dose increase, # 90 tablet, 0 Refills, Maintenance, 11/01/21 16:08:00 EDT, [facility] #[id number], Please discontinue 88ug, 153, cm, 10/08/21 13:23:00 EDT, Height, 113.9, kg, 10/08/21 13:23:00 EDT, Dry Weight Start Date: 11/01/21 Status: Ordered lidocaine 2% topical gel with applicator 5 mL = 0.1 Gm, Topically, 2 times a day, PRN Pain , Moderate, # 60 mL, 2 Refills, Soft Stop, 09/24/21 16:43:00 EDT, Gel, [facility] #[id number], Partial fill upon patient request if the [...] 90 capsule, 0 Refills, 09/27/21 14:31:00 EDT, [facility] #[id number], 153, cm, 08/10/21 11:19:00 EDT, Height, 105, kg, 05/31/21 15:15:00 EST, Dry Weight Start Date: 09/27/21 Status: Ordered ondansetron 4 mg oral tablet 1 tablet = 4 mg, By Mouth, Every 8 hours, PRN Nausea & Vomiting, # 30 tablet, 1 Refills, Maintenance, 11/10/21 14:47:00 EDT, [facility] #[id number], 153, cm, 10/08/21 13:23:00 EDT, Height, 113.9, kg, 10/08/21 13:23:00 EDT, Dry Weight Start Date: 11/10/21 Status: Ordered oxybutynin 5 mg oral tablet 1 tablet, By Mouth, 3 times a day, # 270 tablet, 1 Refills, [facility] [id number], 153, cm, 08/10/21 11:19:00 EDT, Height, 105, [...] 1 Refills, Maintenance, 07/30/21 12:22:00 EDT, Tablet, [facility] #[id number], Partial fill upon patient request if the [...]
--- OUTSIDE RECORDS SUMMARY | 2022-12-30 08:29 | XMS_ITS | Continuity of Care Document ---
Author Name Unknown Organization [facility] Address [address] [place] [address]- Care Team Providers Care Nib Inspector Name Role Phone Kaiden Chirinos MD Primary Care Physician [place] [facility] [place] - 07/13/19 [facility] [address] [place] [address]- [facility] Attending Physician: Admtr, Ash8 [...] 01/31/19 21:47:23 EDT, Route to Pharmacy Electronically, [id number], [facility]/pharmacy #[id number] Start Date: 01/31/19 Stop Date: [...]
--- OUTSIDE RECORDS SUMMARY | 2022-12-30 08:29 | XMS_ITS | Continuity of Care Document ---
Author Name Unknown Organization [facility] Address [address] [facility], [address] Floor, [address] [place] [address]- Care Team Providers Care Applications Sales Consultant Name Role Phone Kaiden Chirinos MD Primary Care Physician Encounter [facility] Date(s): 02/08/22 - 03/10/22 [facility] [address], [address], [address] [place] [id number] Attending Physician: AdmJc campo Admitting Physician: AdmtrJc [...] 8.5 Gm,0 Refills, Maintenance, 12/22/21 10:40:00 EDT, [facility] #[id number], 2 puffs Inhalation Every 4 hours,PRN: NEEDED FOR WHEEZING/cough/shortness... Start Date: 12/22/21 Status: Ordered albuterol 0.083% inhalation solution 3 mL = 2.5 mg, Inhalation, Every 4 hours, PRN for wheezing/cough/shortness of breath, # 25 each, 0 Refills, Maintenance, 10/14/21 22:10:00 EDT, Solution, [email or web address] #[id number], Partial fill upon patient request if the prescription is for a sched... Start Date: 10/14/21 Status: Ordered [place] Saline Mist 0.65% nasal spray 2 sprays, Nares, Both, 4 times a day, # 1 each, 0 Refills, Maintenance, 02/04/22 13:32:00 EDT, [facility] #[id number], Partial fill upon patient request if the [...] tablet, 0 Refills, Maintenance, 12/27/21 13:43:00 EDT, [facility] #[id number], 153, cm, 10/08/21 13:23:00 EDT, Height, 113.9, [...] FOR PAIN., # 100 Gm, 1 Refills, [id number], 30, APPLY 1 GM TOPICALLY 4 TIMES A DAY FOR PAIN, 153, cm, 06/07/21 11:07:00 EST, Height, 105, kg, 05/31/21 15:15:00 EST, Dry Weight Start Date: 08/05/21 Status: Ordered Dilaudid 2 mg oral tablet 1 tablet = 2 mg, By Mouth, 2 times a day, PRN Pain , Severe, checked masspat, # 28 tablet, 0 Refills, Maintenance, 03/04/22 14:11:00 EST, Tablet, [email or web address] #[id number], Partial fill upon patient request if the prescription is for a schedule II o... Start Date: 03/04/22 Status: Ordered Estrace Vaginal Cream 0.1 mg/g = 2 Gm, Vaginally, Daily at bedtime, 2g PV daily at bedtime x 2 weeks, then 1g PV 1-3x per week, # 42.5 Gm, 5 Refills, Maintenance, 11/09/21 11:17:00 EDT, [email or web address] #[id number], Partial fill upon patient request if the prescription is for a sche... Start Date: 11/09/21 Status: Ordered Estradiol Patch 0.0375 mg/24 hours twice weekly transdermal film, extended release See Instructions, APPLY 1 PATCH TOPICALLY TWICE WEEKLY DIRECTED, # 8 patch, 0 Refills, Maintenance, 02/26/22 10:23:00 EST, [facility] #[id number], 28, APPLY 1 PATCH TOPICALLY TWICE WEEKLY DIRECTED, 153, cm, 01/04/22 13:15:00 EDT, Height, 11... Start Date: 02/26/22 Status: Ordered fluconazole 150 mg oral tablet 1 tablet = 150 mg, By Mouth, Once, # 1 tablet, 0 Refills, Soft Stop, 02/14/22 14:41:00 EDT, Tablet,[email or web address] #[id number], Partial fill upon patient request if the prescription is for a schedule II opioid drug., 153, cm, 01/04/22 13:15:00 EDT, H... Start Date: 02/14/22 Status: Ordered gabapentin 800 mg oral tablet See Instructions, TAKE 1 TABLET BY MOUTH FOUR TIMES DAILY, # 360 tablet, 0 Refills, [email or web address] #[id number], 153, cm, 10/08/21 13:23:00 EDT, Height, 113.9, [...] capsule, 1 Refills, Maintenance, 12/08/21 10:10:00 EDT, [email or web address] #[id number], 153, cm, 10/08/21 13:23:00 EDT, Height, 113.9,kg, [...] tablet, 0 Refills, Maintenance, 01/20/22 17:46:00 EDT, [email or web address] #[id number], 153, cm, 01/04/22 13:15:00 ED... Start Date: 01/20/22 Status: Ordered lidocaine 3% topical gel 1 application, Topically, 2 times a day, PRN as needed for pain, to replace 2% topical, # 28.5 Gm, 2 Refills, Acute 03/29/22 14:17:00 EST, 12/28/21 14:17:00 EDT, Gel, [email or web address] #[id number], Partial fill upon patient request if the prescription i... Start Date: 12/28/21 Stop Date: 03/29/22 Status: Ordered meloxicam 15 mg oral tablet 1/2 TO 1 TABLET, By Mouth, Daily, PRN NEEDED FOR MODERATE PAIN, # 30 tablet, 5 Refills, Maintenance, 01/10/22 20:40:00 EDT, [email or web address] #[id number], 153, cm, 01/04/22 13:15:00 EDT, Height, 113.9, [...] capsule, 0 Refills, Maintenance, 01/16/22 8:28:00 EDT, [email or web address] #[id number], 153, cm, 01/04/22 13:15:00 EDT, Height, 113.9, kg, 10/08/21 13:23:00 EDT, Dry Weight Start Date: 01/16/22 Status: Ordered ondansetron 4 mg oral tablet 1 tablet, By Mouth, Every 8 hours, PRN NEEDED FOR NAUSEA OR VOMITING, # 30 tablet, 0 Refills, Maintenance, 03/01/22 11:29:00 EST, [email or web address] #[id number], 153, cm, 01/04/22 13:15:00 EDT, Height, 113.9, kg, 10/08/21 13:23:00 EDT, Dry Weight Start Date: 03/01/22 Status: Ordered oxybutynin 5 mg oral tablet 1 tablet, By Mouth, 3 times a day, # 270 tablet, 1 Refills, 01/10/22 10:29:00 EDT, [email or web address] #[id number], 153, cm, 01/04/22 13:15:00 EDT, Height, 113.9, [...] 02/18/22 16:37:00 EDT, Route to Pharmacy Electronically, [facility] #[id number], Partial fill upon patient request if the [...] Team Personnel Name: Kaiden Chirinos MD Position: [facility] Primary Care Physician Member Role: PCP Address: Address: [address] [place] [address] Adult [facility] [place] [address]- Care Team Related Persons Name: RODOLFO SHEIKH Address: home [address] [facility] [address] [place] [id number] Name: CHIARA TEE Address: home [address] [place] [address] [place] [id number]
--- OUTSIDE RECORDS SUMMARY | 2022-12-30 08:29 | XMS_ITS | Continuity of Care Document ---
Author Name Unknown Organization [facility] Address [address] [place], [place] [address]sarah espana, [address] [place] [address]- Care Team Providers Care Life Skills Worker Name Role Phone Candis CARDENAS, Kaiden Villalta Primary Care Physician [phone] [place] [facility] [place]22 [facility] [address] [place] [address] Drive, [address] [place] [address]- Allergies, Adverse Reactions, Alerts Substance Reaction Severity [...] 8.5 Gm,0 Refills, Maintenance, 12/22/21 10:40:00 EDT, [facility] #[id number], 2 puffs Inhalation Every 4 hours,PRN: NEEDED FOR WHEEZING/cough/shortness... Start Date: 12/22/21 Status: Ordered albuterol 0.083% inhalation solution 3 mL = 2.5 mg, Inhalation, Every 4 hours, PRN for wheezing/cough/shortness of breath, # 25 each, 0 Refills, Maintenance, 06/29/22 13:08:00 EDT, Solution, [facility] #[id number], Partial fill upon patient request if the prescription is for a sched... Start Date: 06/29/22 Status: Ordered [place] Saline Mist 0.65% nasal spray 2 sprays, Nares, Both, 4 times a day, # 1 each, 0 Refills, Maintenance, 02/04/22 13:32:00 EDT, [facility] #[id number], Partial fill upon patient request if the [...] tablet, 0 Refills, Maintenance, 12/27/21 13:43:00 EDT, [facility] #[id number], 153, cm, 10/08/21 13:23:00 EDT, Height, 113.9, kg, 10/08/21 13:23:00EDT, Dry Weight Start Date: 12/27/21 Status: Ordered chlorhexidine 2% topical liquid See Instructions, 1 application to bilateral forearms twice weekly, # 120 mL, 3 Refills, Soft Stop,06/17/22 11:06:00 EST, Liquid, [facility] #[id number], Partial fill upon patient request if the prescription is for a schedule II opioid drug., 1... Start Date: 06/17/22 Status: Ordered chlorhexidine 4% topical soap See Instructions, apply topically twice weekly to skin on forearms, # 120 mL, 2 Refills, Soft Stop,06/17/22 16:03:00 EST, [facility] #[id number], Partial fill upon patient request if the [...] FOR PAIN., # 100 Gm, 1 Refills, [facility], 30, APPLY 1 GM TOPICALLY 4 TIMES A DAY FOR PAIN, 153, cm, 06/07/21 11:07:00 EST, Height, 105, kg, 05/31/21 15:15:00 EST, Dry Weight Start Date: 08/05/21 Status: Ordered Dilaudid 2 mg oral tablet 1 tablet = 2 mg, By Mouth, 2 times a day, PRN Pain , Severe, checked masspat, # 56 tablet, 0 Refills, Maintenance, 12/23/22 9:47:00 EDT, Tablet, [facility] #[id number], Partial fill upon patientrequest if the prescription is for a schedule II op... Start Date: 12/23/22 Status: Ordered Estrace Vaginal Cream 0.1 mg/g = 2 Gm, Vaginally, Daily at bedtime, 2g PV daily at bedtime x 2 weeks, then 1g PV 1-3x per week, # 42.5 Gm, 5 Refills, Maintenance, 11/09/21 11:17:00 EDT, [facility] #[id number], Partial fill upon patient request if the prescription is for a sche... Start Date: 11/09/21 Status: Ordered Estradiol Patch 0.0375 mg/24 hours twice weekly transdermal film, extended release See Instructions, APPLY 1 PATCH TOPICALLY TWICE WEEKLY DIRECTED, # 8 patch, 2 Refills, Maintenance, 09/22/22 21:55:00 EDT, [facility] #[id number], 28, APPLY 1 PATCH TOPICALLY TWICE WEEKLY DIRECTED, 153, cm, 06/17/22 10:53:00 EST, Height, 10... Start Date: 09/22/22 Status: Ordered fluconazole 150 mg oral tablet 1 tablet = 150 mg, By Mouth, Once, PRN vaginal yeast infection, repeat dose in 72 hours if symptomsnot resolved, # 2 tablet, 0 Refills, Soft Stop, 11/08/22 15:31:00 EDT, Tablet, [facility]#[id number], Partial fill upon patient request if the pr... Start Date: 11/08/22 Status: Ordered fluticasone 50 mcg/inh nasal spray See Instructions, SHAKE LIQUID AND USE 1 SPRAY IN EACH NOSTRIL TWICE DAILY, # 16 Gm, 1 Refills, Maintenance, 05/18/22 13:57:00 EST, [facility] #[id number], 30, SHAKE LIQUID AND USE 1 SPRAY IN EACH NOSTRIL TWICE DAILY, 153, cm, 04/25/22 16:23:00 E... Start Date: 05/18/22 Status: Ordered gabapentin 800 mg oral tablet 1 tablet, By Mouth, 4 times a day, # 360 tablet, 1 Refills, Maintenance, 10/25/22 21:47:00 EDT, [facility] #[id number], 153, cm, 06/17/22 10:53:00 EST, Height, 109, [...] capsule, 1 Refills, Maintenance, 11/15/22 11:13:00 EDT, [facility] #[id number], 154, cm, 10/29/22 14:42:00 EDT, Height, 109, [...] 1 Refills, Maintenance, 04/28/22 13:51:00 EST, Tablet, [facility] #[id number], Partial fill upon patient request if the prescription is for a schedule II opioid drug., 153, cm... Start Date: 04/28/22 Status: Ordered lidocaine 4% topical cream 1 application, Topically, 3 times a day, PRN Pain , Mild, # 30 Gm, 1 Refills, Maintenance, 06/24/2315:24:00 EST, Cream, [facility] #[id number], Partial fill upon patient request if the prescription is for a schedule II opioid drug., 1 applicatio... Start Date: 06/23/22 Status: Ordered meloxicam 15 mg oral tablet 1/2 TO 1 TABLET, By Mouth, Daily, PRN NEEDED FOR MODERATE PAIN, # 30 tablet, 5 Refills, Maintenance, 01/10/22 20:40:00 EDT, [facility] #[id number], 153, cm, 01/04/22 13:15:00 EDT, Height, 113.9, [...] capsule, 1 Refills, Maintenance, 07/26/22 14:24:00 EDT, [facility] #[id number], 153, cm, 06/17/22 10:53:00 EST, Height, 109, kg, 06/17/22 10:53:00 EST, Dry Weight Start Date: 07/26/22 Status: Ordered ondansetron 4 mg oral tablet 1 tablet, By Mouth, Every 8 hours, PRN NEEDED FOR NAUSEA OR VOMITING, # 30 tablet, 1 Refills, Maintenance, 10/27/22 23:08:00 EDT, [facility] #[id number], 153, cm, 06/17/22 10:53:00 EST, Height, 109, kg, 06/17/22 10:53:00 EST, Dry Weight Start Date: 10/27/22 Status: Ordered oxybutynin 5 mg oral tablet 1 tablet, By Mouth, 3 times a day, # 270 tablet, 1 Refills, Maintenance, 10/04/22 20:44:00 EDT, [facility] #[id number], 153, cm, 06/17/22 10:53:00 EST, Height, 109, [...] 11/18/22 16:07:00 EDT, Route to Pharmacy Electronically, [facility] #[id number], Partial fill upon patient request if the prescrip... Start Date: 11/18/22 Status: Ordered traZODone 50 mg oral tablet 1-2 tablet, By Mouth, Daily, one hour prior to bedtime. dose increase, # 60 tablet, Refills 2, Tot.Refills 2, Maintenance, 07/01/22 14:21:00 EDT, Route to Pharmacy Electronically, [facility] #[id number], Partial fill upon patient request if the... Start Date: 07/01/22 Status: Ordered triamcinolone 0.1% topical cream 1 application, Topically, 3 times a day, PRN arm rash, # 30 Gm, 1 Refills, Acute 06/08/23 9:53:00 EST, 06/08/22 9:53:00 EST, Cream, [facility] #[id number], Partial fill upon patient request if the [...] Primary Care Member Role: PCP Address: Address: [address] [place] [address] Adult [facility] [place] [address]- Care Team Related Persons Name: RODOLFO SHEIKH Address: home [address] [facility] [address] [place] [id number] Name: CHIARA TEE Address: home [address] [place] [address] [place] [id number]
--- OUTSIDE RECORDS SUMMARY | 2022-12-30 08:29 | XMS_ITS | Continuity of Care Document ---
Author Name Unknown Organization [facility] Address [address] [address]- Care Team Providers Care Supervisor Cigar Processing Name Role Phone Candis CARDENAS, Kaiden Villalta Primary Care Physician [phone] Encounter [facility] Date(s): 11/14/22 - 12/14/22 [facility] [address] [place] [id number]- Allergies, Adverse Reactions, Alerts Substance Reaction Severity [...] 8.5 Gm,0 Refills, Maintenance, 12/22/21 10:40:00 EDT, [facility] #[id number], 2 puffs Inhalation Every 4 hours,PRN: NEEDED FOR WHEEZING/cough/shortness... Start Date: 12/22/21 Status: Ordered albuterol 0.083% inhalation solution 3 mL = 2.5 mg, Inhalation, Every 4 hours, PRN for wheezing/cough/shortness of breath, # 25 each, 0 Refills, Maintenance, 06/29/22 13:08:00 EDT, Solution, [facility] #[id number], Partial fill upon patient request if the prescription is for a sched... Start Date: 06/29/22 Status: Ordered [place] Saline Mist 0.65% nasal spray 2 sprays, Nares, Both, 4 times a day, # 1 each, 0 Refills, Maintenance, 02/04/22 13:32:00 EDT, [facility] #[id number], Partial fill upon patient request if the [...] tablet, 0 Refills, Maintenance, 12/27/21 13:43:00 EDT, [facility] #[id number], 153, cm, 10/08/21 13:23:00 EDT, Height, 113.9, kg, 10/08/21 13:23:00EDT, Dry Weight Start Date: 12/27/21 Status: Ordered chlorhexidine 2% topical liquid See Instructions, 1 application to bilateral forearms twice weekly, # 120 mL, 3 Refills, Soft Stop,06/17/22 11:06:00 EST, Liquid, [facility] #[id number], Partial fill upon patient request if the prescription is for a schedule II opioid drug., 1... Start Date: 06/17/22 Status: Ordered chlorhexidine 4% topical soap See Instructions, apply topically twice weekly to skin on forearms, # 120 mL, 2 Refills, Soft Stop,06/17/22 16:03:00 EST, [facility] #[id number], Partial fill upon patient request if the [...] FOR PAIN., # 100 Gm, 1 Refills, [facility], 30, APPLY 1 GM TOPICALLY 4 TIMES A DAY FOR PAIN, 153, cm, 06/07/21 11:07:00 EST, Height, 105, kg, 05/31/21 15:15:00 EST, Dry Weight Start Date: 08/05/21 Status: Ordered Dilaudid 2 mg oral tablet 1 tablet = 2 mg, By Mouth, 2 times a day, PRN Pain , Severe, checked masspat, # 56 tablet, 0 Refills, Maintenance, 11/28/22 11:25:00 EDT, Tablet, [facility] #[id number], Partial fill upon patient request if the prescription is for a schedule II o... Start Date: 11/28/22 Status: Ordered Estrace Vaginal Cream 0.1 mg/g = 2 Gm, Vaginally, Daily at bedtime, 2g PV daily at bedtime x 2 weeks, then 1g PV 1-3x per week, # 42.5 Gm, 5 Refills, Maintenance, 11/09/21 11:17:00 EDT, [facility] #[id number], Partial fill upon patient request if the prescription is for a sche... Start Date: 11/09/21 Status: Ordered Estradiol Patch 0.0375 mg/24 hours twice weekly transdermal film, extended release See Instructions, APPLY 1 PATCH TOPICALLY TWICE WEEKLY DIRECTED, # 8 patch, 2 Refills, Maintenance, 09/22/22 21:55:00 EDT, [facility] #[id number], 28, APPLY 1 PATCH TOPICALLY TWICE WEEKLY DIRECTED, 153, cm, 06/17/22 10:53:00 EST, Height, 10... Start Date: 09/22/22 Status: Ordered fluconazole 150 mg oral tablet 1 tablet = 150 mg, By Mouth, Once, PRN vaginal yeast infection, repeat dose in 72 hours if symptomsnot resolved, # 2 tablet, 0 Refills, Soft Stop, 11/08/22 15:31:00 EDT, Tablet, [facility]#[id number], Partial fill upon patient request if the pr... Start Date: 11/08/22 Status: Ordered fluticasone 50 mcg/inh nasal spray See Instructions, SHAKE LIQUID AND USE 1 SPRAY IN EACH NOSTRIL TWICE DAILY, # 16 Gm, 1 Refills, Maintenance, 05/18/22 13:57:00 EST, [facility] #[id number], 30, SHAKE LIQUID AND USE 1 SPRAY IN EACH NOSTRIL TWICE DAILY, 153, cm, 04/25/22 16:23:00 E... Start Date: 05/18/22 Status: Ordered gabapentin 800 mg oral tablet 1 tablet, By Mouth, 4 times a day, # 360 tablet, 1 Refills, Maintenance, 10/25/22 21:47:00 EDT, [facility] #[id number], 153, cm, 06/17/22 10:53:00 EST, Height, 109, [...] capsule, 1 Refills, Maintenance, 11/15/22 11:13:00 EDT, [facility] #[id number], 154, cm, 10/29/22 14:42:00 EDT, Height, 109, [...] 1 Refills, Maintenance, 04/28/22 13:51:00 EST, Tablet, [facility] #[id number], Partial fill upon patient request if the prescription is for a schedule II opioid drug., 153, cm... Start Date: 04/28/22 Status: Ordered lidocaine 4% topical cream 1 application, Topically, 3 times a day, PRN Pain , Mild, # 30 Gm, 1 Refills, Maintenance, 06/24/2315:24:00 EST, Cream, [facility] #50972, Partial fill upon patient request if the prescription is for a schedule II opioid drug., 1 applicatio... Start Date: 06/23/22 Status: Ordered meloxicam 15 mg oral tablet 1/2 TO 1 TABLET, By Mouth, Daily, PRN NEEDED FOR MODERATE PAIN, # 30 tablet, 5 Refills, Maintenance, 01/10/22 20:40:00 EDT, [facility] #[id number], 153, cm, 01/04/22 13:15:00 EDT, Height, 113.9, [...] capsule, 1 Refills, Maintenance, 07/26/22 14:24:00 EDT, [facility] #[id number], 153, cm, 06/17/22 10:53:00 EST, Height, 109, kg, 06/17/22 10:53:00 EST, Dry Weight Start Date: 07/26/22 Status: Ordered ondansetron 4 mg oral tablet 1 tablet, By Mouth, Every 8 hours, PRN NEEDED FOR NAUSEA OR VOMITING, # 30 tablet, 1 Refills, Maintenance, 10/27/22 23:08:00 EDT, [facility] #[id number], 153, cm, 06/17/22 10:53:00 EST, Height, 109, kg, 06/17/22 10:53:00 EST, Dry Weight Start Date: 10/27/22 Status: Ordered oxybutynin 5 mg oral tablet 1 tablet, By Mouth, 3 times a day, # 270 tablet, 1 Refills, Maintenance, 10/04/22 20:44:00 EDT, [facility] #[id number], 153, cm, 06/17/22 10:53:00 EST, Height, 109, [...] 11/18/22 16:07:00 EDT, Route to Pharmacy Electronically, [facility] #[id number], Partial fill upon patient request if the prescrip... Start Date: 11/18/22 Status: Ordered traZODone 50 mg oral tablet 1-2 tablet, By Mouth, Daily, one hour prior to bedtime. dose increase, # 60 tablet, Refills 2, Tot.Refills 2, Maintenance, 07/01/22 14:21:00 EDT, Route to Pharmacy Electronically, [facility] #[id number], Partial fill upon patient request if the... Start Date: 07/01/22 Status: Ordered triamcinolone 0.1% topical cream 1 application, Topically, 3 times a day, PRN arm rash, # 30 Gm, 1 Refills, Acute 06/08/23 9:53:00 EST, 06/08/22 9:53:00 EST, Cream, [facility] #[id number], Partial fill upon patient request if the [...] Primary Care Member Role: PCP Address: Address: [address] [place] [address] Adult [place] [address]- Care Team Related Persons Name: RODOLFO SHEIKH Address: home [address] [facility] [address] [place] [address] Name: CHIARA TEE Address: home [address] [place] [address] [address] [place] [address]
--- OUTSIDE RECORDS SUMMARY | 2022-12-30 08:29 | XMS_ITS | Continuity of Care Document ---
Author Name Unknown Organization [facility] Address [address] [place] [address]- Care Team Providers Care Gis Mapping Technician Name Role Phone Kaiden Chirinos MD Primary Care Physician Encounter [facility] [place] Date(s): 12/07/21 - 01/06/22 [facility] [address] [place], [place] [address] Allergies, Adverse Reactions, [...] 8.5 Gm,0 Refills, Maintenance, 12/22/21 10:40:00 EDT, [facility] #[id number], 2 puffs Inhalation Every 4 hours,PRN: NEEDED FOR WHEEZING/cough/shortness... Start Date: 12/22/21 Status: Ordered albuterol 0.083% inhalation solution 3 mL = 2.5 mg, Inhalation, Every 4 hours, PRN for wheezing/cough/shortness of breath, # 25 each, 0 Refills, Maintenance, 10/14/21 22:10:00 EDT, Solution, [facility] #[id number], Partial fill upon patient request if the [...] tablet, 0 Refills, Maintenance, 12/27/21 13:43:00 EDT, [facility] #[id number], 153, cm, 10/08/21 13:23:00 EDT, Height, 113.9, [...] FOR PAIN., # 100 Gm, 1 Refills, [facility] 62517, 30, APPLY 1 GM TOPICALLY 4 TIMES A DAY FOR PAIN, 153, cm, 06/07/21 11:07:00 EST, Height, 105, kg, 05/31/21 15:15:00 EST, Dry Weight Start Date: 08/05/21 Status: Ordered Dilaudid 2 mg oral tablet 1 tablet = 2 mg, By Mouth, 2 times a day, PRN Pain , Severe, checked masspat, # 28 tablet, 0 Refills, Maintenance, 01/05/22 10:35:00 EDT, Tablet, [facility] #[id number], Partial fill upon patient request if the prescription is for a schedule II o... Start Date: 01/05/22 Status: Ordered Estrace Vaginal Cream 0.1 mg/g = 2 Gm, Vaginally, Daily at bedtime, 2g PV daily at bedtime x 2 weeks, then 1g PV 1-3x per week, # 42.5 Gm, 5 Refills, Maintenance, 11/09/21 11:17:00 EDT, [facility] #[id number], Partial fill upon patient request if the prescription is for a sche... Start Date: 11/09/21 Status: Ordered estradiol 0.0375 mg/24 hours twice weekly transdermal film, extended release See Instructions, 1 patch Topically, change patch twice a week, # 1 pack/packet, 1 Refills, Maintenance, 12/07/21 10:42:00 EDT, [facility] #[id number], Partial fill upon patient request if the prescription is for a schedule II opioid drug., 153,... Start Date: 12/07/21 Status: Ordered gabapentin 800 mg oral tablet See Instructions, TAKE 1 TABLET BY MOUTH FOUR TIMES DAILY, # 360 tablet, 0 Refills, [facility] #[id number], 153, cm, 10/08/21 13:23:00 EDT, Height, 113.9, [...] capsule, 1 Refills, Maintenance, 12/08/21 10:10:00 EDT, [facility] #[id number], 153, cm, 10/08/21 13:23:00 EDT, Height, 113.9,kg, [...] tablet, 1 Refills, Maintenance, 07/30/21 12:25:00 EDT, [facility], [facility] #[id number], Partial fill upon patient request if the prescription is for a schedule II opioid drug... Start Date: 07/30/21 Status: Ordered levothyroxine 0.1 mg oral tablet 1 tablet = 100 mcg, By Mouth, Daily, dose increase, # 90 tablet, 0 Refills, Maintenance, 11/01/21 16:08:00 EDT, [facility] #[id number], Please discontinue 88ug, 153, cm, 10/08/21 13:23:00 [...] tablet, 1 Refills, Maintenance, 11/30/21 15:44:00 EDT, [facility] #[id number], [place]... Start Date: 11/30/21 Status: Ordered lidocaine 3% topical gel 1 application, Topically, 2 times a day, PRN as needed for pain, to replace 2% topical, # 28.5 Gm, 2 Refills, Acute 03/29/22 14:17:00 EST, 12/28/21 14:17:00 EDT, Gel, [facility] #[id number], Partial fill upon patient request if the prescription i... Start Date: 12/28/21 Stop Date: 03/29/22 Status: Ordered lidocaine 4% topical cream 1 application, Topically, 2 times a day, PRN Pain , Mild, # 30 Gm, 1 Refills, Acute 01/27/22 17:31:00 EDT, 12/28/21 17:31:00 EDT, Cream, [facility] #[id number], Partial fill upon patient requestif the prescription is for a schedule II opioid cedrick... Start Date: 12/28/21 Stop Date: 01/27/22 Status: Ordered meloxicam 15 mg oral tablet 1/2 TO 1 TABLET, By Mouth, Daily, PRN NEEDED FOR MODERATE PAIN, # 30 tablet, 1 Refills, :04:00 EDT, [facility] #[id number], 153, cm, 10/08/21 13:23:00 EDT, Height, 113.9, [...] 90 capsule, 0 Refills, 09/27/21 14:31:00 EDT, [facility] #[id number], 153, cm, 08/10/21 11:19:00 EDT, Height, 105, kg, 05/31/21 15:15:00 EST, Dry Weight Start Date: 09/27/21 Status: Ordered ondansetron 4 mg oral tablet 1 tablet = 4 mg, By Mouth, Every 8 hours, PRN Nausea & Vomiting, # 30 tablet, 1 Refills, Maintenance, 11/10/21 14:47:00 EDT, [facility] #[id number], 153, cm, 10/08/21 13:23:00 EDT, Height, 113.9, kg, 10/08/21 13:23:00 EDT, Dry Weight Start Date: 11/10/21 Status: Ordered oxybutynin 5 mg oral tablet 1 tablet, By Mouth, 3 times a day, # 270 tablet, 1 Refills, 01/05/22 9:12:00 EDT, [facility] #[id number], 153, cm, 01/04/22 13:15:00 EDT, Height, 113.9, [...] 01/11/22 13:32:00 EDT, 01/04/22 13:32:00 EDT, Tablet, [facility] #[id number], Partial fill upon patient request if the [...] Personnel Name: Candis CARDENAS, Kaiden Villalta Address: [address] [place] [address] Adult & Pediatric Medicine [place], [place] [address]
--- OUTSIDE RECORDS SUMMARY | 2022-12-30 08:29 | XMS_ITS | Continuity of Care Document ---
Author Name Unknown Organization [facility] Address [address] [place] [address]- Care Team Providers Care Patient Support Tech Name Role Phone Candis CARDENAS, Kaiden Villalta Primary Care Physician Encounter [facility] [place] Date(s): 09/07/22 - 10/07/22 [facility]/[address] [address]- [place] Allergies, Adverse Reactions, Alerts Substance Reaction [...] 8.5 Gm,0 Refills, Maintenance, 12/22/21 10:40:00 T, [facility] #[id number], 2 puffs Inhalation Every 4 hours,PRN: NEEDED FOR WHEEZING/cough/shortness... Start Date: 12/22/21 Status: Ordered albuterol 0.083% inhalation solution 3 mL = 2.5 mg, Inhalation, Every 4 hours, PRN for wheezing/cough/shortness of breath, # 25 each, 0 Refills, Maintenance, 06/29/22 13:08:00 EDT, Solution, [facility] #[id number], Partial fill upon patient request if the prescription is for a sched... Start Date: 06/29/22 Status: Ordered [place] Saline Mist 0.65% nasal spray 2 sprays, Nares, Both, 4 times a day, # 1 each, 0 Refills, Maintenance, 02/04/22 13:32:00 EDT, [facility] #[id number], Partial fill upon patient request if the [...] tablet, 0 Refills, Maintenance, 12/27/21 13:43:00 EDT, [facility] #[id number], 153, cm, 10/08/21 13:23:00 EDT, Height, 113.9, kg, 10/08/21 13:23:00EDT, Dry Weight Start Date: 12/27/21 Status: Ordered chlorhexidine 2% topical liquid See Instructions, 1 application to bilateral forearms twice weekly, # 120 mL, 3 Refills, Soft Stop,06/17/22 11:06:00 EST, Liquid, [facility] #[id number], Partial fill upon patient request if the prescription is for a schedule II opioid drug., 1... Start Date: 06/17/22 Status: Ordered chlorhexidine 4% topical soap See Instructions, apply topically twice weekly to skin on forearms, # 120 mL, 2 Refills, Soft Stop,06/17/22 16:03:00 EST, [facility] #[id number], Partial fill upon patient request if the [...] FOR PAIN., # 100 Gm, 1 Refills, [facility] 23732, 30, APPLY 1 GM TOPICALLY 4 TIMES A DAY FOR PAIN, 153, cm, 06/07/21 11:07:00 EST, Height, 105, kg, 05/31/21 15:15:00 EST, Dry Weight Start Date: 08/05/21 Status: Ordered Dilaudid 2 mg oral tablet 1 tablet = 2 mg, By Mouth, 2 times a day, PRN Pain , Severe, checked masspat, # 56 tablet, 0 Refills, Maintenance, 09/28/22 9:53:00 EDT, Tablet, [facility] #[id number], Partial fill upon patientrequest if the prescription is for a schedule II op... Start Date: 09/28/22 Status: Ordered Estrace Vaginal Cream 0.1 mg/g = 2 Gm, Vaginally, Daily at bedtime, 2g PV daily at bedtime x 2 weeks, then 1g PV 1-3x per week, # 42.5 Gm, 5 Refills, Maintenance, 11/09/21 11:17:00 EDT, [facility] #[id number], Partial fill upon patient request if the prescription is for a sche... Start Date: 11/09/21 Status: Ordered Estradiol Patch 0.0375 mg/24 hours twice weekly transdermal film, extended release See Instructions, APPLY 1 PATCH TOPICALLY TWICE WEEKLY DIRECTED, # 8 patch, 2 Refills, Maintenance, 09/22/22 21:55:00 EDT, [facility] #[id number], 28, APPLY 1 PATCH TOPICALLY TWICE WEEKLY DIRECTED, 153, cm, 06/17/22 10:53:00 EST, Height, 10... Start Date: 09/22/22 Status: Ordered fluconazole 150 mg oral tablet 1 tablet = 150 mg, By Mouth, Once, PRN vaginal yeast infection, # 1 tablet, 0 Refills, Soft Stop, 03/15/22 10:42:00 EST, Tablet, [facility] #[id number], Partial fill upon patient request if the prescription is for a schedule II opioid drug., 153,... Start Date: 03/15/22 Status: Ordered fluticasone 50 mcg/inh nasal spray See Instructions, SHAKE LIQUID AND USE 1 SPRAY IN EACH NOSTRIL TWICE DAILY, # 16 Gm, 1 Refills, Maintenance, 05/18/22 13:57:00 EST, [facility] #[id number], 30, SHAKE LIQUID AND USE 1 SPRAY IN EACH NOSTRIL TWICE DAILY, 153, cm, 04/25/22 16:23:00 E... Start Date: 05/18/22 Status: Ordered gabapentin 800 mg oral tablet 1 tablet, By Mouth, 4 times a day, # 360 tablet, 1 Refills, Maintenance, 04/19/22 12:59:00 EST, [facility] #[id number], 153, cm, 01/04/22 13:15:00 EDT, Height, 113.9, [...] capsule, 1 Refills, Maintenance, 07/18/22 9:45:00 EDT, [facility] #[id number], 153, cm, 06/17/22 10:53:00 EST, Height, 109, [...] 1 Refills, Maintenance, 04/28/22 13:51:00 EST, Tablet, [facility] #[id number], Partial fill upon patient request if the prescription is for a schedule II opioid drug., 153, cm... Start Date: 04/28/22 Status: Ordered lidocaine 4% topical cream 1 application, Topically, 3 times a day, PRN Pain , Mild, # 30 Gm, 1 Refills, Maintenance, 06/24/2315:24:00 EST, Cream, [facility] #[id number], Partial fill upon patient request if the prescription is for a schedule II opioid drug., 1 applicatio... Start Date: 06/23/22 Status: Ordered meloxicam 15 mg oral tablet 1/2 TO 1 TABLET, By Mouth, Daily, PRN NEEDED FOR MODERATE PAIN, # 30 tablet, 5 Refills, Maintenance, 01/10/22 20:40:00 EDT, [facility] #[id number], 153, cm, 01/04/22 13:15:00 EDT, Height, 113.9, [...] capsule, 1 Refills, Maintenance, 07/26/22 14:24:00 EDT, [facility] #[id number], 153, cm, 06/17/22 10:53:00 EST, Height, 109, kg, 06/17/22 10:53:00 EST, Dry Weight Start Date: 07/26/22 Status: Ordered ondansetron 4 mg oral tablet 1 tablet, By Mouth, Every 8 hours, PRN NEEDED FOR NAUSEA OR VOMITING, # 30 tablet, 1 Refills, Maintenance, 06/14/22 10:29:00 EST, [facility] #[id number], 153, cm, 06/08/22 9:37:00 EST, Height, 109, kg, 04/25/22 15:54:00 EST, Dry Weight Start Date: 06/14/22 Status: Ordered oxybutynin 5 mg oral tablet 1 tablet, By Mouth, 3 times a day, # 270 tablet, 1 Refills, Maintenance, 10/04/22 20:44:00 EDT, [facility] #[id number], 153, cm, 06/17/22 10:53:00 EST, Height, 109, [...] 07/01/22 14:21:00 EDT, Route to Pharmacy Electronically, [facility] #[id number], Partial fill upon patient request if the... Start Date: 07/01/22 Status: Ordered triamcinolone 0.1% topical cream 1 application, Topically, 3 times a day, PRN arm rash, # 30 Gm, 1 Refills, Acute 06/08/23 9:53:00 EST, 06/08/22 9:53:00 EST, Cream, [facility] #[id number], Partial fill upon patient request if the [...] Team Personnel Name: Kaiden Chirinos MD Position: [facility] Physician - Primary Care Member Role: PCP Address: Address: [address] [place] [address] Adult [place] [address]- Care Team Related Persons Name: RODOLFO SHEIKH Address: home [address] [facility] [address] [place] [id number] Name: CHIARA TEE Address: home [address] [place] [address] [address] [place] [id number]
--- OUTSIDE RECORDS SUMMARY | 2022-12-30 08:29 | XMS_ITS | Continuity of Care Document ---
Author Name Unknown Organization [facility] Address [address] [place] [address]- Care Team Providers Care Ux Interaction Designer Name Role Phone Kaiden Chirinos MD Primary Care Physician Encounter [facility] Date(s): 11/05/21 - 12/05/21 [facility] [address] [place], [place] [address] Allergies, Adverse Reactions, Alerts [...] 8.5 Gm,0 Refills, Maintenance, 09/28/21 16:57:00 EDT, [facility] #[id number], 2 puffs Inhalation Every 4 hours,PRN: NEEDED FOR WHEEZING/cough/shortness... Start Date: 09/28/21 Status: Ordered albuterol 0.083% inhalation solution 3 mL = 2.5 mg, Inhalation, Every 4 hours, PRN for wheezing/cough/shortness of breath, # 25 each, 0 Refills, Maintenance, 10/14/21 22:10:00 EDT, Solution, [facility] #[id number], Partial fill upon patient request if the prescription is for a sched... Start Date: 10/14/21 Status: Ordered Azithromycin 5 Day Dose Pack 250 mg oral tablet See Instructions, Take 2 tablets on day one. Take 1 tablet daily on Days 2-5., # 6 tablet, 0 Refills, Maintenance, 11/18/21 11:47:00 EDT, Tablet, [facility] #[id number], Partial fill upon patient request if the prescription is for a schedule II... Start Date: 11/18/21 Status: Ordered benzonatate 100 mg oral capsule 2 capsule, By Mouth, 3 times a day, PRN NEEDED FOR COUGH, # 30 capsule, 1 Refills, Physician Stop 11/10/22 14:46:00 EDT, 03/19/22 17:38:00 EST, [facility] #[id number], 153, cm, 10/08/21 13:23:00 EDT, Height, 113.9, kg, 10/08/21 13:23:00 EDT, D... Start Date: 03/19/22 Stop Date: 11/10/22 Status: Ordered budesonide 1 mg/2 mL inhalation suspension 2 mL = 1 mg, Neb, 2 times a day, rinse mouth out after use, # 120 mL, 1 Refills, Maintenance, 10/25/21 18:30:00 EDT, Suspension, [facility] #[id number], Partial fill upon patient request if the [...] 0 Refills, Maintenance, 11/18/20 21:02:00 EDT, Tablet, [facility]/pharmacy #[id number], Partial fill upon patient... Start Date: 11/18/20 Status: Ordered diclofenac 1% topical gel = 1 Gm, Topically, 4 times a day, FOR PAIN., # 100 Gm, 1 Refills, [facility] 617[facility], 30, APPLY 1 GM TOPICALLY 4 TIMES A DAY FOR PAIN, 153, cm, 06/07/21 11:07:00 EST, Height, 105, kg, 05/31/21 15:15:00 EST, Dry Weight Start Date: 08/05/21 Status: Ordered Dilaudid 2 mg oral tablet 1 tablet = 2 mg, By Mouth, 2 times a day, PRN Pain , Severe, checked masspat, # 28 tablet, 0 Refills, Maintenance, 11/23/21 16:09:00 EDT, Tablet, [facility] #[id number], Partial fill upon patient request if the prescription is for a schedule II o... Start Date: 11/23/21 Status: Ordered Estrace Vaginal Cream 0.1 mg/g = 2 Gm, Vaginally, Daily at bedtime, 2g PV daily at bedtime x 2 weeks, then 1g PV 1-3x per week, # 42.5 Gm, 5 Refills, Maintenance, 11/09/21 11:17:00 EDT, [facility] #[id number], Partial fill upon patient request if the prescription is for a sche... Start Date: 11/09/21 Status: Ordered gabapentin 800 mg oral tablet See Instructions, TAKE 1 TABLET BY MOUTH FOUR TIMES DAILY, # 360 tablet, 0 Refills, [facility] #06521, 153, cm, 10/08/21 13:23:00 EDT, Height, 113.9, [...] capsule, 1 Refills, Maintenance, 09/28/21 16:58:00 EDT, [facility] #[id number], 153, cm, 08/10/21 11:19:00 EDT, Height, 105, [...] 1 Refills, Maintenance, 07/30/21 12:25:00 EDT, Tablet, [facility] #[id number], Partial fill upon patient request if the prescription is for a schedule II opioid drug... Start Date: 07/30/21 Status: Ordered levothyroxine 0.1 mg oral tablet 1 tablet = 100 mcg, By Mouth, Daily, dose increase, # 90 tablet, 0 Refills, Maintenance, 11/01/21 16:08:00 EDT, [facility] #[id number], Please discontinue 88ug, 153, cm, 10/08/21 13:23:00 [...] 1 Refills, Maintenance, 11/30/21 15:44:00 EDT, Tablet, [facility] #[id number], [place]... Start Date: 11/30/21 Status: Ordered lidocaine 2% topical gel with applicator 5 mL = 0.1 Gm, Topically, 2 times a day, PRN Pain , Moderate, # 60 mL, 2 Refills, Soft Stop, 09/24/21 16:43:00 EDT, Gel, [facility] #[id number], Partial fill upon patient request if the prescription is for a schedule II opioid drug., 153, cm, ... Start Date: 09/24/21 Status: Ordered meloxicam 15 mg oral tablet 1/2 TO 1 TABLET, By Mouth, Daily, PRN NEEDED FOR MODERATE PAIN, # 30 tablet, 1 Refills, :04:00 EDT, [facility] #[id number], 153, cm, 10/08/21 13:23:00 EDT, Height, 113.9, [...] 90 capsule, 0 Refills, 09/27/21 14:31:00 EDT, [facility] #[id number], 153, cm, 08/10/21 11:19:00 EDT, Height, 105, kg, 05/31/21 15:15:00 EST, Dry Weight Start Date: 09/27/21 Status: Ordered ondansetron 4 mg oral tablet 1 tablet = 4 mg, By Mouth, Every 8 hours, PRN Nausea & Vomiting, # 30 tablet, 1 Refills, Maintenance, 11/10/21 14:47:00 EDT, [facility] #[id number], 153, cm, 10/08/21 13:23:00 EDT, Height, 113.9, kg, 10/08/21 13:23:00 EDT, Dry Weight Start Date: 11/10/21 Status: Ordered oxybutynin 5 mg oral tablet 1 tablet, By Mouth, 3 times a day, # 270 tablet, 1 Refills, [facility] 67767, 153, cm, 08/10/21 11:19:00 EDT, Height, 105, [...] 1 Refills, Maintenance, 07/30/21 12:22:00 EDT, Tablet, [facility] #[id number], Partial fill upon patient request if the [...]
--- OUTSIDE RECORDS SUMMARY | 2022-12-30 08:29 | XMS_ITS | Continuity of Care Document ---
Author Name Unknown Organization [facility] Address [address] [place] [address]- Care Team Providers Care Clinical Data Assistant Name Role Phone Kaiden Chirinos MD Primary Care Physician [place] [facility] [place] 12/08/20 - 12/15/20 [facility] [address] [place] [address]- Attending Physician: Not on Staff, Attending MD [...] 09/22/20 16:39:00 EDT, Route to Pharmacy Electronically, [facility]/pharmacy #[id number], Partial fill upon patient request if the prescription is for a schedule II... Start Date: 09/22/20 Status: Ordered baclofen 10 mg oral tablet 10 mg, 1, tablet, By Mouth, 3 times a day, PRN, # 30 tablet, Refills 0, Tot. Refills 0, Maintenance, Spasm, 01/31/19 21:47:23 EDT, Route to Pharmacy Electronically, [id number], [facility]/pharmacy #[id number] Start Date: 01/31/19 Stop Date: 02/14/19 Status: Ordered clonazePAM 0.5 mg oral tablet 1 tablet = 0.5 mg, By Mouth, 4 times a day, PRN Anxiety, Patient on controlled substance contract. Please do NOT fill until 09/23/2020, # 112 tablet, 0 Refills, Maintenance, 11/18/20 21:02:00 EDT, Tablet, [facility]/pharmacy #[id number], Partial fill upon patient... Start Date: 11/18/20 Status: Ordered Famotidine 0 Refills, Maintenance, 04/07/19 16:11:00 EST Start Date: 04/07/19 Status: Ordered gabapentin 800 mg oral tablet 1 tablet = 800 mg, By Mouth, 4 times a day, # 360 tablet, 1 Refills, Maintenance, 11/09/20 23:47:00EDT, Tablet, [facility]/pharmacy #[id number], Partial fill upon [...] 1 Refills, Maintenance, 11/05/20 11:43:00 EDT, Tablet, [facility]/pharmacy #[id number], Partial fill upon patient request if the prescription is for a schedule II opioid drug., 160, cm, 10/30/20 8:2... Start Date: 11/05/20 Status: Ordered meloxicam 15 mg oral tablet See Instructions, PRN Pain , Moderate, 0.5 to1 tab PO daily with food, # 30 capsule, 1 Refills, Maintenance, 12/04/20 11:27:00 EDT, Tablet, [facility]/pharmacy #[id number], Partial fill upon [...] Refills, Maintenance, 11/27/20 17:20:00 EDT, [id number], 160, cm, 10/30/20 8:28:00 EDT, Height, 105.5, [...]
--- OUTSIDE RECORDS SUMMARY | 2022-12-30 08:29 | XMS_ITS | Continuity of Care Document ---
Author Name Unknown Organization [facility] Address [address] [place] [address]- Care Team Providers Care Machine Package Sealer Name Role Phone Kaiden Chirinos MD Primary Care Physician [phone] [place] [facility] [place] 12[place]21 [facility] [address] [place], [place] [address] Allergies, Adverse Reactions, Alerts Substance [...] 8.5 Gm,0 Refills, Maintenance, 12/08/21 20:52:00 EDT, [facility] #[id number], 2 puffs Inhalation Every 4 hours,PRN: NEEDED FOR WHEEZING/cough/shortness... Start Date: 12/08/21 Status: Ordered albuterol 0.083% inhalation solution 3 mL = 2.5 mg, Inhalation, Every 4 hours, PRN for wheezing/cough/shortness of breath, # 25 each, 0 Refills, Maintenance, 10/14/21 22:10:00 EDT, Solution, [facility] #[id number], Partial fill upon patient request if the prescription is for a sched... Start Date: 10/14/21 Status: Ordered benzonatate 100 mg oral capsule 2 capsule, By Mouth, 3 times a day, PRN NEEDED FOR COUGH, # 30 capsule, 1 Refills, Physician Stop 11/10/22 14:46:00 EDT, 03/19/22 17:38:00 EST, [facility] #[id number], 153, cm, 10/08/21 13:23:00 EDT, Height, 113.9, kg, 10/08/21 13:23:00 EDT, D... Start Date: 03/19/22 Stop Date: 11/10/22 Status: Ordered benzonatate 100 mg oral capsule 2 capsule, By Mouth, 3 times a day, PRN NEEDED FOR COUGH, # 30 capsule, 1 Refills, Physician Stop 12/10/22 15:43:00 EDT, 11/10/22 14:46:00 EDT, [facility] #[id number], 153, cm, 10/08/21 13:23:00 EDT, Height, 113.9, [...] Refills, Maintenance, 11/18/20 21:02:00 EDT, Tablet, [facility]/pharmacy #[id number], Partial fill upon patient... Start Date: 11/18/20 Status: Ordered diclofenac 1% topical gel = 1 Gm, Topically, 4 times a day, FOR PAIN., # 100 Gm, 1 Refills, [id number], 30, APPLY 1 GM TOPICALLY 4 TIMES A DAY FOR PAIN, 153, cm, 06/07/21 11:07:00 EST, Height, 105, kg, 05/31/21 15:15:00 EST, Dry Weight Start Date: 08/05/21 Status: Ordered Dilaudid 2 mg oral tablet 1 tablet = 2 mg, By Mouth, 2 times a day, PRN Pain , Severe, checked masspat, # 28 tablet, 0 Refills, Maintenance, 12/07/21 13:30:00 EDT, Tablet, [facility] #[id number], Partial fill upon patient request if the prescription is for a schedule II o... Start Date: 12/07/21 Status: Ordered Estrace Vaginal Cream 0.1 mg/g = 2 Gm, Vaginally, Daily at bedtime, 2g PV daily at bedtime x 2 weeks, then 1g PV 1-3x per week, # 42.5 Gm, 5 Refills, Maintenance, 11/09/21 11:17:00 EDT, [facility] #[id number], Partial fill upon patient request if the prescription is for a sche... Start Date: 11/09/21 Status: Ordered estradiol 0.0375 mg/24 hours twice weekly transdermal film, extended release See Instructions, 1 patch Topically, change patch twice a week, # 1 pack/packet, 1 Refills, Maintenance, 12/07/21 10:42:00 EDT, [facility] #[id number], Partial fill upon patient request if the prescription is for a schedule II opioid drug., 153,... Start Date: 12/07/21 Status: Ordered gabapentin 800 mg oral tablet See Instructions, TAKE 1 TABLET BY MOUTH FOUR TIMES DAILY, # 360 tablet, 0 Refills, [facility] #[id number], 153, cm, 10/08/21 13:23:00 EDT, Height, 113.9, [...] capsule, 1 Refills, Maintenance, 12/08/21 10:10:00 EDT, [facility] #[id number], 153, cm, 10/08/21 13:23:00 EDT, Height, 113.9,kg, [...] 1 Refills, Maintenance, 07/30/21 12:25:00 EDT, Tablet, [facility] #[id number], Partial fill upon patient request if the prescription is for a schedule II opioid drug... Start Date: 07/30/21 Status: Ordered levothyroxine 0.1 mg oral tablet 1 tablet = 100 mcg, By Mouth, Daily, dose increase, # 90 tablet, 0 Refills, Maintenance, 11/01/21 16:08:00 EDT, [facility] #[id number], Please discontinue 88ug, 153, cm, 10/08/21 13:23:00 [...] 1 Refills, Maintenance, 11/30/21 15:44:00 EDT, Tablet, [facility] #[id number], [place]... Start Date: 11/30/21 Status: Ordered lidocaine 2% topical gel with applicator 5 mL = 0.1 Gm, Topically, 2 times a day, PRN Pain , Moderate, # 60 mL, 2 Refills, Soft Stop, 09/24/21 16:43:00 EDT, Gel, [facility] #[id number], Partial fill upon patient request if the prescription is for a schedule II opioid drug., 153, cm, ... Start Date: 09/24/21 Status: Ordered meloxicam 15 mg oral tablet 1/2 TO 1 TABLET, By Mouth, Daily, PRN NEEDED FOR MODERATE PAIN, # 30 tablet, 1 Refills, 229:04:00 EDT, [facility] #[id number], 153, cm, 10/08/21 13:23:00 EDT, Height, 113.9, [...] 90 capsule, 0 Refills, 09/27/21 14:31:00 EDT, [facility] #[id number], 153, cm, 08/10/21 11:19:00 EDT, Height, 105, kg, 05/31/21 15:15:00 EST, Dry Weight Start Date: 09/27/21 Status: Ordered ondansetron 4 mg oral tablet 1 tablet = 4 mg, By Mouth, Every 8 hours, PRN Nausea & Vomiting, # 30 tablet, 1 Refills, Maintenance, 11/10/21 14:47:00 EDT, [facility] #[id number], 153, cm, 10/08/21 13:23:00 EDT, Height, 113.9, kg, 10/08/21 13:23:00 EDT, Dry Weight Start Date: 11/10/21 Status: Ordered oxybutynin 5 mg oral tablet 1 tablet, By Mouth, 3 times a day, # 270 tablet, 1 Refills, [id number], 153, cm, 08/10/21 11:19:00 EDT, Height, 105, kg, 05/31/21 15:15:00 EST, Dry Weight Start Date: 09/09/21 Status: Ordered Paxlovid 150 mg-100 mg (150 mg-100 mg Dose) oral tablet See Instructions, 2 tabs nirmatrelvir PO and 1 tab ritonavir PO twice daily for 5 days, # 30 tablet, 0 Refills, Acute 12/15/21 15:37:00 EDT, 12/10/21 15:36:00 EDT, [id number], Partial fill upon patient request if the [...] Personnel Name: Candis CARDENAS, Kaiden Villalta Address: [address] [place] [address] Adult & Pediatric Medicine [place], [place] [address]
--- OUTSIDE RECORDS SUMMARY | 2022-12-30 08:30 | XMS_ITS | Continuity of Care Document ---
Author Name Unknown Organization [facility] Address [address] [place] [address]- Care Team Providers Care Digital Media Manager Name Role Phone Candis CARDENAS, Kaiden Villalta Primary Care Physician [place] [facility] [place]04/22 [facility] [address] [place], [place] [address] Allergies, Adverse Reactions, Alerts Substance Reaction [...] 8.5 Gm,0 Refills, Maintenance, 12/22/21 10:40:00 EDT, [facility] #[id number], 2 puffs Inhalation Every 4 hours,PRN: NEEDED FOR WHEEZING/cough/shortness... Start Date: 12/22/21 Status: Ordered albuterol 0.083% inhalation solution 3 mL = 2.5 mg, Inhalation, Every 4 hours, PRN for wheezing/cough/shortness of breath, # 25 each, 0 Refills, Maintenance, 10/14/21 22:10:00 EDT, Solution, [facility] #[id number], Partial fill upon patient request if the prescription is for a sched... Start Date: 10/14/21 Status: Ordered Keystone Saline Mist 0.65% nasal spray 2 sprays, Nares, Both, 4 times a day, # 1 each, 0 Refills, Maintenance, 02/04/22 13:32:00 EDT, [facility] #[id number], Partial fill upon patient request if the [...] tablet, 0 Refills, Maintenance, 12/27/21 13:43:00 EDT, [facility] #[id number], 153, cm, 10/08/21 13:23:00 EDT, Height, 113.9, [...] # 100 Gm, 1 Refills, [facility], 30, APPLY 1 GM TOPICALLY 4 TIMES A DAY FOR PAIN, 153, cm, 06/07/21 11:07:00 EST, Height, 105, kg, 05/31/21 15:15:00 EST, Dry Weight Start Date: 08/05/21 Status: Ordered Dilaudid 2 mg oral tablet 1 tablet = 2 mg, By Mouth, 2 times a day, PRN Pain , Severe, checked masspat, # 28 tablet, 0 Refills, Maintenance, 02/04/22 13:38:00 EDT, Tablet, [facility] #[id number], Partial fill upon patient request if the prescription is for a schedule II o... Start Date: 02/04/22 Status: Ordered Estrace Vaginal Cream 0.1 mg/g = 2 Gm, Vaginally, Daily at bedtime, 2g PV daily at bedtime x 2 weeks, then 1g PV 1-3x per week, # 42.5 Gm, 5 Refills, Maintenance, 11/09/21 11:17:00 EDT, [facility] #[id number], Partial fill upon patient request if the prescription is for a sche... Start Date: 11/09/21 Status: Ordered Estradiol Patch 0.0375 mg/24 hours twice weekly transdermal film, extended release See Instructions, APPLY 1 PATCH TOPICALLY TWICE WEEKLY DIRECTED, # 8 patch, 0 Refills, Maintenance, 02/01/22 11:03:00 EDT, [facility] #[id number], 28, APPLY 1 PATCH TOPICALLY TWICE WEEKLY DIRECTED, 153, cm, 01/04/22 13:15:00 EDT, Height, 11... Start Date: 02/01/22 Status: Ordered gabapentin 800 mg oral tablet See Instructions, TAKE 1 TABLET BY MOUTH FOUR TIMES DAILY, # 360 tablet, 0 Refills, [facility] #[id number], 153, cm, 10/08/21 13:23:00 EDT, Height, 113.9, [...] capsule, 1 Refills, Maintenance, 12/08/21 10:10:00 EDT, [facility] #[id number], 153, cm, 10/08/21 13:23:00 EDT, Height, 113.9,kg, [...] 1 Refills, Maintenance, 11/30/21 15:44:00 EDT, Tablet, [facility] #[id number], [place]... Start Date: 11/30/21 Status: Ordered levothyroxine 0.112 mg oral tablet 1 tablet, By Mouth, Daily, AVOID ANTACIDS, CALCIUM, OR IRON FOR AT LEAST 4 HOURS BEFORE OR 4 HOURS AFTER; ON AN ON AN EMPTY STOMACH, # 90 tablet, 0 Refills, Maintenance, 01/20/22 17:46:00 EDT, [facility] #[id number], 153, cm, 01/04/22 13:15:00 ED... Start Date: 01/20/22 Status: Ordered lidocaine 3% topical gel 1 application, Topically, 2 times a day, PRN as needed for pain, to replace 2% topical, # 28.5 Gm, 2 Refills, Acute 03/29/22 14:17:00 EST, 12/28/21 14:17:00 EDT, Gel, [facility] #[id number], Partial fill upon patient request if the prescription i... Start Date: 12/28/21 Stop Date: 03/29/22 Status: Ordered meloxicam 15 mg oral tablet 1/2 TO 1 TABLET, By Mouth, Daily, PRN NEEDED FOR MODERATE PAIN, # 30 tablet, 5 Refills, Maintenance, 01/10/22 20:40:00 EDT, [facility] #[id number], 153, cm, 01/04/22 13:15:00 EDT, Height, 113.9, [...] capsule, 0 Refills, Maintenance, 01/16/22 8:28:00 EDT, [facility] #[id number], 153, cm, 01/04/22 13:15:00 EDT, Height, 113.9, kg, 10/08/21 13:23:00 EDT, Dry Weight Start Date: 01/16/22 Status: Ordered ondansetron 4 mg oral tablet 1 tablet = 4 mg, By Mouth, Every 8 hours, PRN Nausea & Vomiting, # 30 tablet, 1 Refills, Maintenance, 11/10/21 14:47:00 EDT, [facility] #[id number], 153, cm, 10/08/21 13:23:00 EDT, Height, 113.9, kg, 10/08/21 13:23:00 EDT, Dry Weight Start Date: 11/10/21 Status: Ordered oxybutynin 5 mg oral tablet 1 tablet, By Mouth, 3 times a day, # 270 tablet, 1 Refills, 01/10/22 10:29:00 EDT, [facility] #[id number], 153, cm, 01/04/22 13:15:00 EDT, Height, 113.9, [...] 02/11/22 13:31:00 EDT, 02/04/22 13:31:00 EDT, Capsule, [facility] #[id number], Partial fill upon patient request if the [...] Name: Candis CARDENAS, Kaiden Villalta Address: Address: [address] [place] [address] Adult & Pediatric Medicine [place], [place] [address]
--- OUTSIDE RECORDS SUMMARY | 2022-12-30 08:30 | XMS_ITS | Continuity of Care Document ---
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 Start Date: 12/22/21 Status: Ordered albuterol 0.083% inhalation solution 3 mL = 2.5 mg, Inhalation, Every 4 hours, PRN for wheezing/cough/shortness of breath, # 25 each, 0 Refills, Maintenance, 10/14/21 22:10:00 EDT, Solution, [facility] #[id number], Partial fill upon patient request if the prescription is for a sched... Start Date: 10/14/21 Status: Ordered benzonatate 100 mg oral capsule 2 capsule, By Mouth, 3 times a day, PRN NEEDED FOR COUGH, # 30 capsule, 1 Refills, Maintenance, 12/10/22 15:43:00 EDT, [facility] #[id number], 153, cm, 10/08/21 13:23:00 EDT, Height, 113.9, kg, 10/08/21 13:23:00 EDT, Dry Weight Start Date: 12/10/22 Status: Ordered benzonatate 100 mg oral capsule 2 capsule, By Mouth, 3 times a day, PRN NEEDED FOR COUGH, # 30 capsule, 1 Refills, Physician Stop 12/10/22 15:43:00 EDT, 11/10/22 14:46:00 EDT, [facility] #[id number], 153, cm, 10/08/21 13:23:00 EDT, Height, 113.9, [...] tablet, 0 Refills, Maintenance, 12/27/21 13:43:00 EDT, [facility] #[id number], 153, cm, 10/08/21 13:23:00 EDT, Height, 113.9, kg, 10/08/21 13:23:00EDT, Dry Weight Start Date: 12/27/21 Status: Ordered clonazePAM 0.5 mg oral tablet 1 tablet = 0.5 mg, By Mouth, 4 times a day, PRN Anxiety, Patient on controlled substance contract. Please do NOT fill until 09/23/2020, # 112 tablet, 0 Refills, Maintenance, 11/18/20 21:02:00 EDT, Tablet, [facility]/pharmacy #[id number], Partial fill upon patient... Start Date: 11/18/20 Status: Ordered diclofenac 1% topical gel = 1 Gm, Topically, 4 times a day, FOR PAIN., # 100 Gm, 1 Refills, [facility], 30, APPLY 1 GM TOPICALLY 4 TIMES A DAY FOR PAIN, 153, cm, 06/07/21 11:07:00 EST, Height, 105, kg, 05/31/21 15:15:00 EST, Dry Weight Start Date: 08/05/21 Status: Ordered Dilaudid 2 mg oral tablet 1 tablet = 2 mg, By Mouth, 2 times a day, PRN Pain , Severe, checked masspat, # 28 tablet, 0 Refills, Maintenance, 12/22/21 10:40:00 EDT, Tablet, [facility] #[id number], Partial fill upon patient request if the prescription is for a schedule II o... Start Date: 12/22/21 Status: Ordered Estrace Vaginal Cream 0.1 mg/g = 2 Gm, Vaginally, Daily at bedtime, 2g PV daily at bedtime x 2 weeks, then 1g PV 1-3x per week, # 42.5 Gm, 5 Refills, Maintenance, 11/09/21 11:17:00 EDT, [facility] #[id number], Partial fill upon patient request if the prescription is for a sche... Start Date: 11/09/21 Status: Ordered estradiol 0.0375 mg/24 hours twice weekly transdermal film, extended release See Instructions, 1 patch Topically, change patch twice a week, # 1 pack/packet, 1 Refills, Maintenance, 12/07/21 10:42:00 EDT, [facility] #[id number], Partial fill upon patient request if the prescription is for a schedule II opioid drug., 153,... Start Date: 12/07/21 Status: Ordered gabapentin 800 mg oral tablet See Instructions, TAKE 1 TABLET BY MOUTH FOUR TIMES DAILY, # 360 tablet, 0 Refills, [facility] #[id number], 153, cm, 10/08/21 13:23:00 EDT, Height, 113.9, [...] capsule, 1 Refills, Maintenance, 12/08/21 10:10:00 EDT, [facility] #[id number], 153, cm, 10/08/21 13:23:00 EDT, Height, 113.9,kg, [...] 1 Refills, Maintenance, 07/30/21 12:25:00 EDT, Tablet, [facility] #[id number], Partial fill upon patient request if the prescription is for a schedule II opioid drug... Start Date: 07/30/21 Status: Ordered levothyroxine 0.1 mg oral tablet 1 tablet = 100 mcg, By Mouth, Daily, dose increase, # 90 tablet, 0 Refills, Maintenance, 11/01/21 16:08:00 EDT, [facility] #[id number], Please discontinue 88ug, 153, cm, 10/08/21 13:23:00 [...] 1 Refills, Maintenance, 11/30/21 15:44:00 EDT, Tablet, [facility] #[id number], [place]... Start Date: 11/30/21 Status: Ordered lidocaine 3% topical gel 1 application, Topically, 2 times a day, PRN as needed for pain, to replace 2% topical, # 28.5 Gm, 2 Refills, Acute 03/29/22 14:17:00 EST, 12/28/21 14:17:00 EDT, Gel, [facility] #[id number], Partial fill upon patient request if the prescription i... Start Date: 12/28/21 Stop Date: 03/29/22 Status: Ordered lidocaine 4% topical cream 1 application, Topically, 2 times a day, PRN Pain , Mild, # 30 Gm, 1 Refills, Acute 01/27/22 17:31:00 EDT, 12/28/21 17:31:00 EDT, Cream, [facility] #[id number], Partial fill upon patient requestif the prescription is for a schedule II opioid cedrick... Start Date: 12/28/21 Stop Date: 01/27/22 Status: Ordered meloxicam 15 mg oral tablet 1/2 TO 1 TABLET, By Mouth, Daily, PRN NEEDED FOR MODERATE PAIN, # 30 tablet, 1 Refills, :04:00 EDT, [facility] #[id number], 153, cm, 10/08/21 13:23:00 EDT, Height, 113.9, kg, 10/08/21 13:23:00 EDT, Dry Weight Start Date: 11/16/21 Status: Ordered metroNIDAZOLE 500 mg oral tablet 1 tablet = 500 mg, By Mouth, Every 12 hours, for 7 days, do not drink alcohol, # 14 tablet, 0 Refills, Acute 01/05/22 16:58:00 EDT, 12/29/21 16:58:00 EDT, Tablet, [facility] #[id number], Partialfill upon patient request if the prescription [...] 90 capsule, 0 Refills, 09/27/21 14:31:00 EDT, [facility] #[id number], 153, cm, 08/10/21 11:19:00 EDT, Height, 105, kg, 05/31/21 15:15:00 EST, Dry Weight Start Date: 09/27/21 Status: Ordered ondansetron 4 mg oral tablet 1 tablet = 4 mg, By Mouth, Every 8 hours, PRN Nausea & Vomiting, # 30 tablet, 1 Refills, Maintenance, 11/10/21 14:47:00 EDT, [facility] #[id number], 153, cm, 10/08/21 13:23:00 EDT, Height, 113.9, kg, 10/08/21 13:23:00 EDT, Dry Weight Start Date: 11/10/21 Status: Ordered oxybutynin 5 mg oral tablet 1 tablet, By Mouth, 3 times a day, # 270 tablet, 1 Refills, [facility], 153, cm, 08/10/21 11:19:00 EDT, Height, 105, [...] Team Personnel Name: Kaiden Chirinos MD Address: [address] [place] [address] [facility] [address]
--- OUTSIDE RECORDS SUMMARY | 2022-12-30 08:30 | XMS_ITS | Continuity of Care Document ---
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 Start Date: 12/22/21 Status: Ordered albuterol 0.083% inhalation solution 3 mL = 2.5 mg, Inhalation, Every 4 hours, PRN for wheezing/cough/shortness of breath, # 25 each, 0 Refills, Maintenance, 10/14/21 22:10:00 EDT, Solution, [facility] #[id number], Partial fill upon patient request if the prescription is for a sched... Start Date: 10/14/21 Status: Ordered [place] Saline Mist 0.65% nasal spray 2 sprays, Nares, Both, 4 times a day, # 1 each, 0 Refills, Maintenance, 02/04/22 13:32:00 EDT, [facility] #[id number], Partial fill upon patient request if the [...] tablet, 0 Refills, Maintenance, 12/27/21 13:43:00 EDT, [facility] #[id number], 153, cm, 10/08/21 13:23:00 EDT, Height, 113.9, kg, 10/08/21 13:23:00EDT, Dry Weight Start Date: 12/27/21 Status: Ordered clonazePAM 0.5 mg oral tablet 1 tablet = 0.5 mg, By Mouth, 4 times a day, PRN Anxiety, Patient on controlled substance contract. Please do NOT fill until 09/23/2020, # 112 tablet, 0 Refills, Maintenance, 11/18/20 21:02:00 EDT, [facility]t, [id number], Partial fill upon patient... Start Date: 11/18/20 Status: Ordered diclofenac 1% topical gel = 1 Gm, Topically, 4 times a day, FOR PAIN., # 100 Gm, 1 Refills, [id number], 30, APPLY 1 GM TOPICALLY 4 TIMES A DAY FOR PAIN, 153, cm, 06/07/21 11:07:00 EST, Height, 105, kg, 05/31/21 15:15:00 EST, Dry Weight Start Date: 08/05/21 Status: Ordered Dilaudid 2 mg oral tablet 1 tablet = 2 mg, By Mouth, 2 times a day, PRN Pain , Severe, checked masspat, # 56 tablet, 0 Refills, Maintenance, 04/07/22 21:32:00 EST, Tablet, [facility] #[id number], Partial fill upon patient request if the prescription is for a schedule II o... Start Date: 04/07/22 Status: Ordered Estrace Vaginal Cream 0.1 mg/g = 2 Gm, Vaginally, Daily at bedtime, 2g PV daily at bedtime x 2 weeks, then 1g PV 1-3x per week, # 42.5 Gm, 5 Refills, Maintenance, 11/09/21 11:17:00 EDT, [facility] #[id number], Partial fill upon patient request if the prescription is for a sche... Start Date: 11/09/21 Status: Ordered Estradiol Patch 0.0375 mg/24 hours twice weekly transdermal film, extended release See Instructions, APPLY 1 PATCH TOPICALLY TWICE WEEKLY DIRECTED, # 8 patch, 6 Refills, Maintenance, 03/23/22 16:10:00 EST, [facility] #[id number], 28, APPLY 1 PATCH TOPICALLY TWICE WEEKLY DIRECTED, 153, cm, 01/04/22 13:15:00 EDT, Height, 11... Start Date: 03/23/22 Status: Ordered fluconazole 150 mg oral tablet 1 tablet = 150 mg, By Mouth, Once, PRN vaginal yeast infection, # 1 tablet, 0 Refills, Soft Stop, 03/15/22 10:42:00 EST, Tablet, [facility] #[id number], Partial fill upon patient request if the prescription is for a schedule II opioid drug., 153,... Start Date: 03/15/22 Status: Ordered gabapentin 800 mg oral tablet See Instructions, TAKE 1 TABLET BY MOUTH FOUR TIMES DAILY, # 360 tablet, 0 Refills, Maintenance, 04/13/22 20:23:00 EST, [facility] #[id number], 153, cm, 01/04/22 13:15:00 EDT, Height, 113.9, kg,10/08/21 13:23:00 EDT, Dry Weight Start Date: 04/13/22 Status: Ordered gabapentin 800 mg oral tablet 1 tablet, By Mouth, 4 times a day, # 360 tablet, 1 Refills, Maintenance, 04/13/22 20:23:00 EST, [facility] #[id number], 153, cm, 01/04/22 13:15:00 EDT, Height, 113.9, [...] capsule, 1 Refills, Maintenance, 12/08/21 10:10:00 EDT, [facility] #[id number], 153, cm, 10/08/21 13:23:00 EDT, Height, 113.9,kg, [...] 1 Refills, Maintenance, 03/14/22 15:04:00 EST, Tablet, [facility] #[id number], Partial fill upon patient request if the prescription is for a schedule II opioid drug., 153, cm... Start Date: 03/14/22 Status: Ordered meloxicam 15 mg oral tablet 1/2 TO 1 TABLET, By Mouth, Daily, PRN NEEDED FOR MODERATE PAIN, # 30 tablet, 5 Refills, Maintenance, 01/10/22 20:40:00 EDT, [facility] #[id number], 153, cm, 01/04/22 13:15:00 EDT, Height, 113.9, [...] capsule, 0 Refills, Maintenance, 01/16/22 8:28:00 EDT, [facility] #[id number], 153, cm, 01/04/22 13:15:00 EDT, Height, 113.9, kg, 10/08/21 13:23:00 EDT, Dry Weight Start Date: 01/16/22 Status: Ordered ondansetron 4 mg oral tablet 1 tablet, By Mouth, Every 8 hours, PRN NEEDED FOR NAUSEA OR VOMITING, # 30 tablet, 0 Refills, Maintenance, 03/01/22 11:29:00 EST, [facility] #[id number], 153, cm, 01/04/22 13:15:00 EDT, Height, 113.9, kg, 10/08/21 13:23:00 EDT, Dry Weight Start Date: 03/01/22 Status: Ordered oxybutynin 5 mg oral tablet 1 tablet, By Mouth, 3 times a day, # 270 tablet, 1 Refills, 01/10/22 10:29:00 EDT, [facility] #[id number], 153, cm, 01/04/22 13:15:00 EDT, Height, 113.9, [...] 03/14/22 15:10:00 EST, Route to Pharmacy Electronically, [facility] #[id number], Partial fill upon patient request if the... [...] Physician Member Role: PCP Address: Address: [address] [place] [address] [facility] [address] Care Team Related Persons Name: RODOLFO SHEIKH Address: home [address] [address] Name: CHIARA TEE Address: home [address] [place] [id number]
--- OUTSIDE RECORDS SUMMARY | 2022-12-30 08:30 | XMS_ITS | Continuity of Care Document ---
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 Allergies, Adverse [...] 8.5 Gm,0 Refills, Maintenance, 12/22/21 10:40:00 EDT, [facility] #[id number], 2 puffs Inhalation Every 4 hours,PRN: NEEDED FOR WHEEZING/cough/shortness... Start Date: 12/22/21 Status: Ordered albuterol 0.083% inhalation solution 3 mL = 2.5 mg, Inhalation, Every 4 hours, PRN for wheezing/cough/shortness of breath, # 25 each, 0 Refills, Maintenance, 10/14/21 22:10:00 EDT, Solution, [facility] #[id number], Partial fill upon patient request if the [...] tablet, 0 Refills, Maintenance, 12/27/21 13:43:00 EDT, [facility] #[id number], 153, cm, 10/08/21 13:23:00 EDT, Height, 113.9, kg, 10/08/21 13:23:00EDT, Dry Weight Start Date: 12/27/21 Status: Ordered clonazePAM 0.5 mg oral tablet 1 tablet = 0.5 mg, By Mouth, 4 times a day, PRN Anxiety, Patient on controlled substance contract. Please do NOT fill until 09/23/2020, # 112 tablet, 0 Refills, Maintenance, 11/18/20 21:02:00 EDT, Tablet, [facility] #[id number], Partial fill upon patient... Start Date: 11/18/20 Status: Ordered diclofenac 1% topical gel = 1 Gm, Topically, 4 times a day, FOR PAIN., # 100 Gm, 1 Refills, [facility], 30, APPLY 1 GM TOPICALLY 4 TIMES A DAY FOR PAIN, 153, cm, 06/07/21 11:07:00 EST, Height, 105, kg, 05/31/21 15:15:00 EST, Dry Weight Start Date: 08/05/21 Status: Ordered Dilaudid 2 mg oral tablet 1 tablet = 2 mg, By Mouth, 2 times a day, PRN Pain , Severe, checked masspat, # 28 tablet, 0 Refills, Maintenance, 01/05/22 10:35:00 EDT, Tablet, [facility] #[id number], Partial fill upon patient request if the prescription is for a schedule II o... Start Date: 01/05/22 Status: Ordered Estrace Vaginal Cream 0.1 mg/g = 2 Gm, Vaginally, Daily at bedtime, 2g PV daily at bedtime x 2 weeks, then 1g PV 1-3x per week, # 42.5 Gm, 5 Refills, Maintenance, 11/09/21 11:17:00 EDT, [facility] #[id number], Partial fill upon patient request if the prescription is for a sche... Start Date: 11/09/21 Status: Ordered estradiol 0.0375 mg/24 hours twice weekly transdermal film, extended release See Instructions, 1 patch Topically, change patch twice a week, # 1 pack/packet, 1 Refills, Maintenance, 12/07/21 10:42:00 EDT, [facility] #[id number], Partial fill upon patient request if the prescription is for a schedule II opioid drug., 153,... Start Date: 12/07/21 Status: Ordered gabapentin 800 mg oral tablet See Instructions, TAKE 1 TABLET BY MOUTH FOUR TIMES DAILY, # 360 tablet, 0 Refills, [facility] #[id number], 153, cm, 10/08/21 13:23:00 EDT, Height, 113.9, [...] capsule, 1 Refills, Maintenance, 12/08/21 10:10:00 EDT, [facility] #[id number], 153, cm, 10/08/21 13:23:00 EDT, Height, 113.9,kg, [...] tablet, 1 Refills, Maintenance, 07/30/21 12:25:00 EDT, [facility], [facility] #[id number], Partial fill upon patient request if the prescription is for a schedule II opioid drug... Start Date: 07/30/21 Status: Ordered levothyroxine 0.1 mg oral tablet 1 tablet = 100 mcg, By Mouth, Daily, dose increase, # 90 tablet, 0 Refills, Maintenance, 11/01/21 16:08:00 EDT, [facility] #[id number], Please discontinue 88ug, 153, cm, 10/08/21 13:23:00 [...] tablet, 1 Refills, Maintenance, 11/30/21 15:44:00 EDT, [email or web address] #[id number], [place]... Start Date: 11/30/21 Status: Ordered lidocaine 3% topical gel 1 application, Topically, 2 times a day, PRN as needed for pain, to replace 2% topical, # 28.5 Gm, 2 Refills, Acute 03/29/22 14:17:00 EST, 12/28/21 14:17:00 EDT, Gel, [facility] #[id number], Partial fill upon patient request if the prescription i... Start Date: 12/28/21 Stop Date: 03/29/22 Status: Ordered lidocaine 4% topical cream 1 application, Topically, 2 times a day, PRN Pain , Mild, # 30 Gm, 1 Refills, Acute 01/27/22 17:31:00 EDT, 12/28/21 17:31:00 EDT, Cream, [facility] #[id number], Partial fill upon patient requestif the prescription is for a schedule II opioid cedrick... Start Date: 12/28/21 Stop Date: 01/27/22 Status: Ordered meloxicam 15 mg oral tablet 1/2 TO 1 TABLET, By Mouth, Daily, PRN NEEDED FOR MODERATE PAIN, # 30 tablet, 1 Refills, :04:00 EDT, [facility] #[id number], 153, cm, 10/08/21 13:23:00 EDT, Height, 113.9, [...] 90 capsule, 0 Refills, 09/27/21 14:31:00 EDT, [facility] #[id number], 153, cm, 08/10/21 11:19:00 EDT, Height, 105, kg, 05/31/21 15:15:00 EST, Dry Weight Start Date: 09/27/21 Status: Ordered ondansetron 4 mg oral tablet 1 tablet = 4 mg, By Mouth, Every 8 hours, PRN Nausea & Vomiting, # 30 tablet, 1 Refills, Maintenance, 11/10/21 14:47:00 EDT, [facility] #[id number], 153, cm, 10/08/21 13:23:00 EDT, Height, 113.9, kg, 10/08/21 13:23:00 EDT, Dry Weight Start Date: 11/10/21 Status: Ordered oxybutynin 5 mg oral tablet 1 tablet, By Mouth, 3 times a day, # 270 tablet, 1 Refills, 01/05/22 9:12:00 EDT, [facility] #[id number], 153, cm, 01/04/22 13:15:00 EDT, Height, 113.9, [...] 01/11/22 13:32:00 EDT, 01/04/22 13:32:00 EDT, Tablet, [facility] #[id number], Partial fill upon patient request if the [...] Personnel Name: Candis CARDENAS, Kaiden Villalta Address: [address] [place] [address] Adult [facility] Pediatric [facility] [place], [place] [address]
--- OUTSIDE RECORDS SUMMARY | 2022-12-30 08:30 | XMS_ITS | Continuity of Care Document ---
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 Start Date: 12/22/21 Status: Ordered albuterol 0.083% inhalation solution 3 mL = 2.5 mg, Inhalation, Every 4 hours, PRN for wheezing/cough/shortness of breath, # 25 each, 0 Refills, Maintenance, 10/14/21 22:10:00 EDT, Solution, [facility] #[id number], Partial fill upon patient request if the prescription is for a sched... Start Date: 10/14/21 Status: Ordered [place] Saline Mist 0.65% nasal spray 2 sprays, Nares, Both, 4 times a day, # 1 each, 0 Refills, Maintenance, 02/04/22 13:32:00 EDT, [facility] #[id number], Partial fill upon patient request if the [...] tablet, 0 Refills, Maintenance, 12/27/21 13:43:00 EDT, [facility] #[id number], 153, cm, 10/08/21 13:23:00 EDT, Height, 113.9, kg, 10/08/21 13:23:00EDT, Dry Weight Start Date: 12/27/21 Status: Ordered clonazePAM 0.5 mg oral tablet 1 tablet = 0.5 mg, By Mouth, 4 times a day, PRN Anxiety, Patient on controlled substance contract. Please do NOT fill until 09/23/2020, # 112 tablet, 0 Refills, Maintenance, 11/18/20 21:02:00 EDT, Tablet, [facility] #[id number], Partial fill upon patient... Start Date: 11/18/20 Status: Ordered diclofenac 1% topical gel = 1 Gm, Topically, 4 times a day, FOR PAIN., # 100 Gm, 1 Refills, [facility], 30, APPLY 1 GM TOPICALLY 4 TIMES A DAY FOR PAIN, 153, cm, 06/07/21 11:07:00 EST, Height, 105, kg, 05/31/21 15:15:00 EST, Dry Weight Start Date: 08/05/21 Status: Ordered Dilaudid 2 mg oral tablet 1 tablet = 2 mg, By Mouth, 2 times a day, PRN Pain , Severe, checked masspat, # 56 tablet, 0 Refills, Maintenance, 04/07/22 21:32:00 EST, Tablet, [facility] #[id number], Partial fill upon patient request if the prescription is for a schedule II o... Start Date: 04/07/22 Status: Ordered doxycycline monohydrate 100 mg oral capsule 1 capsule = 100 mg, By Mouth, 2 times a day, for 10 days, take with food, # 20 capsule, 0 Refills, Acute 05/05/22 16:17:00 EST, 04/25/22 16:17:00 EST, Capsule, [facility] #[id number], Partial fill upon patient request if the prescription is for a... Start Date: 04/25/22 Stop Date: 05/05/22 Status: Ordered Estrace Vaginal Cream 0.1 mg/g = 2 Gm, Vaginally, Daily at bedtime, 2g PV daily at bedtime x 2 weeks, then 1g PV 1-3x per week, # 42.5 Gm, 5 Refills, Maintenance, 11/09/21 11:17:00 EDT, [facility] #[id number], Partial fill upon patient request if the prescription is for a sche... Start Date: 11/09/21 Status: Ordered Estradiol Patch 0.0375 mg/24 hours twice weekly transdermal film, extended release See Instructions, APPLY 1 PATCH TOPICALLY TWICE WEEKLY DIRECTED, # 8 patch, 6 Refills, Maintenance, 03/23/22 16:10:00 EST, [facility] #[id number], 28, APPLY 1 PATCH TOPICALLY TWICE WEEKLY DIRECTED, 153, cm, 01/04/22 13:15:00 EDT, Height, 11... Start Date: 03/23/22 Status: Ordered Flonase 50 mcg/inh nasal spray 1 sprays, Nares, Both, 2 times a day, # 16 Gm, 0 Refills, Maintenance, 04/19/22 14:04:00 EST, [place], [facility] #[id number], Partial fill upon patient request if the prescription is for a schedule II opioid drug., 1 sprays Nares, Both 2 times a d... Start Date: 04/19/22 Status: Ordered fluconazole 150 mg oral tablet 1 tablet = 150 mg, By Mouth, Once, PRN vaginal yeast infection, # 1 tablet, 0 Refills, Soft Stop, 03/15/22 10:42:00 EST, Tablet, [facility] #[id number], Partial fill upon patient request if the prescription is for a schedule II opioid drug., 153,... Start Date: 03/15/22 Status: Ordered gabapentin 800 mg oral tablet 1 tablet, By Mouth, 4 times a day, # 360 tablet, 1 Refills, Maintenance, 04/19/22 12:59:00 EST, [facility] #[id number], 153, cm, 01/04/22 13:15:00 EDT, Height, 113.9, [...] capsule, 1 Refills, Maintenance, 12/08/21 10:10:00 EDT, [facility] #[id number], 153, cm, 10/08/21 13:23:00 EDT, Height, 113.9,kg, [...] 1 Refills, Maintenance, 04/19/22 12:01:00 EST, Tablet, [facility] #[id number], Partial fill upon patient request if the prescription is for a schedule II opioid drug., 153, cm... Start Date: 04/19/22 Status: Ordered lidocaine 4% topical cream 1 application, Topically, 3 times a day, PRN pain of forearms, # 30 Gm, 1 Refills, Acute 06/23/22 16:24:00 EST, 04/25/22 16:23:00 EST, Cream, [facility] #[id number], Partial fill upon patient request if the prescription is for a schedule II opioi... Start Date: 04/25/22 Stop Date: 06/23/22 Status: Ordered meloxicam 15 mg oral tablet 1/2 TO 1 TABLET, By Mouth, Daily, PRN NEEDED FOR MODERATE PAIN, # 30 tablet, 5 Refills, Maintenance, 01/10/22 20:40:00 EDT, [facility] #[id number], 153, cm, 01/04/22 13:15:00 EDT, Height, 113.9, [...] capsule, 1 Refills, Maintenance, 04/19/22 12:41:00 EST, [facility] #[id number], 153, cm, 01/04/22 13:15:00 EDT, Height, 113.9, kg, 10/08/21 13:23:00 EDT, Dry Weight Start Date: 04/19/22 Status: Ordered ondansetron 4 mg oral tablet 1 tablet, By Mouth, Every 8 hours, PRN NEEDED FOR NAUSEA OR VOMITING, # 30 tablet, 1 Refills, Maintenance, 04/14/22 21:15:00 EST, [facility] #[id number], 153, cm, 01/04/22 13:15:00 EDT, Height, 113.9, kg, 10/08/21 13:23:00 EDT, Dry Weight Start Date: 04/14/22 Status: Ordered oxybutynin 5 mg oral tablet 1 tablet, By Mouth, 3 times a day, # 270 tablet, 1 Refills, 01/10/22 10:29:00 EDT, [facility] #[id number], 153, cm, 01/04/22 13:15:00 EDT, Height, 113.9, [...] 04/14/22 21:16:00 EST, Route to Pharmacy Electronically, [facility][id number], Partial fill upon patient request if the... [...] Personnel Name: Candis CARDENAS, Kaiden Villalta Position: [facility] Primary Care Physician Member Role: PCP Address: Address: [address] [place] [address] Adult [facility] [place] [address]- Care Team Related Persons Name: RODOLFO SHEIKH Address: home [address] [address] Name: CHIARA TEE Address: home [address] [place] [id number]
--- OUTSIDE RECORDS SUMMARY | 2022-12-30 08:30 | XMS_ITS | Continuity of Care Document ---
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 Generator Switchboard Operator Name Role Phone Kaiden Chirinos MD Primary Care Physician [place] [facility] [place] 06/07/21 [facility] [address] [place], [place] [address] Allergies, Adverse Reactions, Alerts [...] # 8.5 each, 0 Refills, [id number], 20, INHALE 2 PUFFS BY MOUTH EVERY 4 HOURS NEEDED FOR WHEEZING, 160, cm, 03/30/21 10:47:00 EST, Height, 104.6, kg, 12/04/20 10:52:00 EDT, Dry Weight Start Date: 04/28/21 Status: Ordered amitriptyline 10 mg oral tablet 10 mg, 1, tablet, By Mouth, Daily at bedtime, # 90 tablet, Refills 1, Tot. Refills 1, Maintenance, 12/24/20 16:08:00 EDT, Route to Pharmacy Electronically, [facility]/pharmacy #[id number], Partial fill upon patient request if the prescription is for a schedule II... Start Date: 12/24/20 Status: Ordered baclofen 10 mg oral tablet 10 mg, 1, tablet, By Mouth, 3 times a day, PRN, # 30 tablet, Refills 0, Tot. Refills 0, Maintenance, Spasm, 01/31/19 21:47:23 EDT, Route to Pharmacy Electronically, [id number], [facility]/pharmacy #[id number] Start Date: 01/31/19 Stop Date: 02/14/19 Status: Ordered benzonatate 100 mg oral capsule 2 capsule, By Mouth, 3 times a day, PRN NEEDED FOR COUGH, # 30 capsule, 1 Refills, Physician Stop 03/19/22 17:38:00 EST, 02/19/22 16:55:00 EDT, [facility]/pharmacy #[id number], 160, cm, 12/04/20 10:52:00 EDT, Height, 104.6, kg, 12/04/20 10:52:00 EDT, Dry Weight Start Date: 02/19/22 Stop Date: 03/19/22 Status: Ordered benzonatate 100 mg oral capsule 2 capsule, By Mouth, 3 times a day, PRN NEEDED FOR COUGH, # 30 capsule, 1 Refills, Physician Stop 02/19/22 16:55:00 EDT, 02/19/21 16:54:00 EDT, [facility]/pharmacy #[id number], 160, cm, 12/04/20 10:52:00 [...] # 360 tablet, 1 Refills, [facility], 160, cm, 03/30/21 10:47:00 EST, Height, 104.6, [...] 1 Refills, Maintenance, 05/14/21 15:23:00 EST, Tablet, [facility]/pharmacy #[id number], Partial fill upon patient request if the prescription is for a schedule II opioid drug., 160, c... Start Date: 05/14/21 Status: Ordered omeprazole 20 mg oral enteric coated capsule 1 capsule, By Mouth, Daily, # 90 capsule, 1 Refills, [facility] [id number], 160, cm, 03/30/21 10:47:00 EST, Height, 104.6, kg, 12/04/20 10:52:00 EDT, Dry Weight Start Date: 03/31/21 Status: Ordered ondansetron 4 mg oral tablet See Instructions, TAKE 1 TABLET BY MOUTH EVERY 8 HOURS NEEDED FOR NAUSEA AND VOMITING, # 15 tablet, 1 Refills, Physician Stop 07/12/21 15:23:00 EDT, 05/14/21 15:22:00 EST, [facility]/pharmacy #[id number], 160,cm, 03/30/21 10:47:00 EST, [...] Refills, Maintenance, 06/07/21 11:39:00 EST, Gel, [id number], Partial fill upon patient request if the [...]
--- OUTSIDE RECORDS SUMMARY | 2022-12-30 08:30 | XMS_ITS | Continuity of Care Document ---
Author Name Unknown Organization [facility] Address [address] [place] [address]- Care Team Providers Care Sealer Sander Name Role Phone Kaiden Chirinos MD Primary Care Physician [place] [facility] [place] 03/22/21 - 04/21/21 [facility] [address], [place] [address] Allergies, Adverse Reactions, Alerts [...] EDT, Route to Pharmacy Electronically, [facility]/pharmacy #[id number], Partial fill upon patient request if the prescription is for a schedule II... Start Date: 12/24/20 Status: Ordered baclofen 10 mg oral tablet 10 mg, 1, tablet, By Mouth, 3 times a day, PRN, # 30 tablet, Refills 0, Tot. Refills 0, Maintenance, Spasm, 01/31/19 21:47:23 EDT, Route to Pharmacy Electronically, [id number], [facility]/pharmacy #[id number] Start Date: 01/31/19 [...] Maintenance, 11/18/20 21:02:00 EDT, Tablet, [facility]/pharmacy #[id number], Partial fill upon patient... Start Date: 11/18/20 Status: Ordered Famotidine 0 Refills, Maintenance, 04/07/19 16:11:00 EST Start Date: 04/07/19 Status: Ordered gabapentin 800 mg oral tablet 1 tablet, By Mouth, 4 times a day, # 360 tablet, 1 Refills, [facility] 53737, 160, cm, 03/30/21 10:47:00 EST, Height, 104.6, [...] 1 Refills, Maintenance, 02/25/21 8:28:00 EST, Capsule, [facility]/pharmacy #[id number], Partial fill upon patient request if the [...] before breakfast, # 90 tablet, 0 Refills, [facility] ST[facility] 27261, 160, cm, 03/30/21 10:47:00 EST, Height, 104.6, kg, 12/04/20 10:52:00 EDT, Dry Weight Start Date: 04/15/21 Status: Ordered meloxicam 15 mg oral tablet 1/2 TO 1 TABLET, By Mouth, Daily, PRN NEEDED FOR MODERATE PAIN, # 30 tablet, 1 Refills, [facility]355, 160, cm, 12/04/20 10:52:00 EDT, Height, 104.6, kg, 12/04/20 10:52:00 EDT, Dry Weight Start Date: 01/22/21 Status: Ordered omeprazole 20 mg oral enteric coated capsule 1 capsule, By Mouth, Daily, # 90 capsule, 1 Refills, [facility], 160, cm, 03/30/21 10:47:00 EST, Height, 104.6, kg, 12/04/20 10:52:00 EDT, Dry Weight Start Date: 03/31/21 Status: Ordered oxybutynin 5 mg oral tablet 1 tablet, By Mouth, 3 times a day, dose increase, # 270 tablet, 1 Refills, Maintenance, 03/19/21 17:40:00 EST, [facility]/pharmacy #[id number], 160, cm, 12/04/20 10:52:00 EDT, Height, 104.6, kg, 12/04/20 10:52:00EDT, Dry Weight Start Date: 03/19/21 Status: Ordered ProAir HFA 90 mcg/inh inhalation aerosol 2 puffs, Inhalation, Every 4 hours, PRN as needed for wheezing, # 8.5 Gm, 0 Refills, Maintenance, 11/16/20 8:39:00 EDT, Aerosol, [facility]/pharmacy #[id number], Partial fill upon patient request if [...] Refills, Maintenance, 10/30/20 8:45:00 EDT, Tablet, [facility]/pharmacy #[id number], Partial fill upon patient reques... Start Date: 10/30/20 Status: Ordered traZODone 150 mg oral tablet 1.5 tablet = 225 mg, By Mouth, Daily at bedtime, dose increase, # 135 tablet, 1 Refills, Maintenance, 04/06/21 12:26:00 EST, Tablet, [facility]/pharmacy #[id number], Partial fill upon patient request if [...]
--- OUTSIDE RECORDS SUMMARY | 2022-12-30 08:30 | XMS_ITS | Continuity of Care Document ---
Author Name Unknown Organization [facility] Address [address] [place] [address]- Care Team Providers Care Door To Door Sales Representative Name Role Phone Candis CARDENAS, Kaiden Villalta Primary Care Physician [phone] [place] [facility] [id number] Date(s): 07/21/21 - 08/20/21 [facility] [address] [place], [place] [address] Allergies, Adverse Reactions, Alerts [...] # 8.5 each, 0 Refills, [facility], 20, INHALE 2 PUFFS BY MOUTH EVERY 4 HOURS NEEDED FOR WHEEZING, 160, cm, 03/30/21 10:47:00 EST, Height, 104.6, kg, 12/04/20 10:52:00 EDT, Dry Weight Start Date: 04/28/21 Status: Ordered amitriptyline 10 mg oral tablet 10 mg, 1, tablet, By Mouth, Daily at bedtime, # 90 tablet, Refills 1, Tot. Refills 1, Maintenance, 07/30/21 12:25:00 EDT, Route to Pharmacy Electronically, [facility] #[id number], Partial fill upon patient request if the [...] FOR PAIN., # 100 Gm, 1 Refills, [facility] 47133, 30, APPLY 1 GM TOPICALLY 4 TIMES A DAY FOR PAIN, 153, cm, 06/07/21 11:07:00 EST, Height, 105, kg, 05/31/21 15:15:00 EST, Dry Weight Start Date: 08/05/21 Status: Ordered Dilaudid 2 mg oral tablet 1 tablet = 2 mg, By Mouth, 2 times a day, PRN Pain , Severe, # 28 tablet, 0 Refills, Maintenance, 08/09/21 22:27:00 EDT, Tablet, [facility] #[id number], Partial fill upon patient request if the prescription is for a schedule II opioid drug., 153,... Start Date: 08/09/21 Status: Ordered Famotidine 0 Refills, Maintenance, 04/07/19 16:11:00 EST Start Date: 04/07/19 Status: Ordered gabapentin 800 mg oral tablet 1 tablet, By Mouth, 4 times a day, # 360 tablet, 1 Refills, [facility] 51997, 160, cm, 03/30/21 10:47:00 EST, Height, 104.6, [...] FOR ITCHING, # 90 capsule, 1 Refills, [facility] 88764, 153, cm, 06/07/21 11:07:00 EST, Height, 105, [...] 1 Refills, Maintenance, 07/30/21 12:25:00 EDT, Tablet, [facility] #[id number], Partial fill upon patient request if the prescription is for a schedule II opioid drug... Start Date: 07/30/21 Status: Ordered omeprazole 20 mg oral enteric coated capsule 1 capsule, By Mouth, Daily, # 90 capsule, 1 Refills, [facility] 16098, 160, cm, 03/30/21 10:47:00 EST, Height, 104.6, kg, 12/04/20 10:52:00 EDT, Dry Weight Start Date: 03/31/21 Status: Ordered ondansetron 4 mg oral tablet 1 tablet = 4 mg, By Mouth, Every 8 hours, PRN Nausea & Vomiting, # 30 tablet, 1 Refills, Maintenance, 08/12/21 13:26:00 EDT, [facility] #[id number], 153, cm, 08/10/21 11:19:00 EDT, Height, 105, [...] 0 Refills, Maintenance, 08/13/21 16:34:00 EDT, Tablet, [facility] #57265, Partial fill upon patient request if the prescription is for a schedule II opioid drug., 153, cm, 08/10/21 11:19:00 ED... Start Date: 08/13/21 Status: Ordered traZODone 150 mg oral tablet 1.5 tablet = 225 mg, By Mouth, Daily at bedtime, # 135 tablet, 1 Refills, Maintenance, 07/30/21 12:25:00 EDT, Tablet, [facility] #79158, Partial fill upon patient request if the [...] 1 Refills, Maintenance, 07/30/21 12:22:00 EDT, Tablet, [facility] #[id number], Partial fill upon patient request if the [...]
--- OUTSIDE RECORDS SUMMARY | 2022-12-30 08:30 | XMS_ITS | Continuity of Care Document ---
Author Name Unknown Organization [facility] Address [address] [place] [address]- Care Team Providers Care Wire Brush Operator Name Role Phone Kaiden Chirinos MD Primary Care Physician En[place] [facility] [place] Date(s): 11/20/20 - 12/20/20 [facility] [address] [place], [place] [address] Allergies, Adverse Reactions, Alerts [...] to Pharmacy Electronically, [facility]/pharmacy #[id number], Partial fill upon patient request if the prescription is for a schedule II... Start Date: 09/22/20 Status: Ordered baclofen 10 mg oral tablet 10 mg, 1, tablet, By Mouth, 3 times a day, PRN, # 30 tablet, Refills 0, Tot. Refills 0, Maintenance, Spasm, 01/31/19 21:47:23 EDT, Route to Pharmacy Electronically, [id number], [facility]/pharmacy #[id number] Start Date: [...] Refills, Maintenance, 11/27/20 17:20:00 EDT, [facility], 160, cm, 10/30/20 8:28:00 EDT, Height, 105.5, [...] 1 Refills, Maintenance, 10/30/20 8:45:00 EDT, Tablet, [facility]/pharmacy #[id number], Partial fill upon patient reques... Start Date: 10/30/20 Status: Ordered traZODone 150 mg oral tablet 1 tablet = 150 mg, By Mouth, Daily at bedtime, dose increase, # 90 tablet, 1 Refills, Maintenance, 11/03/20 13:28:00 EDT, Tablet, [facility]/pharmacy #0969, [...]
--- OUTSIDE RECORDS SUMMARY | 2022-12-30 08:30 | XMS_ITS | Continuity of Care Document ---
Author Name Unknown Organization [facility] Address [address] [place] [address]- Care Team Providers Care Regional Operations Director Name Role Phone Kaiden Chirinos MD Primary Care Physician [phone] Encounter [facility] [place] Date(s): 12/22/21 - 01/21/22 [facility] [address] [place], [place] [address] Allergies, Adverse Reactions, Alerts Substance Reaction [...] 8.5 Gm,0 Refills, Maintenance, 12/22/21 10:40:00 EDT, [facility] #[id number], 2 puffs Inhalation Every 4 hours,PRN: NEEDED FOR WHEEZING/cough/shortness... Start Date: 12/22/21 Status: Ordered albuterol 0.083% inhalation solution 3 mL = 2.5 mg, Inhalation, Every 4 hours, PRN for wheezing/cough/shortness of breath, # 25 each, 0 Refills, Maintenance, 10/14/21 22:10:00 EDT, Solution, [facility] #[id number], Partial fill upon patient request if the [...] tablet, 0 Refills, Maintenance, 12/27/21 13:43:00 EDT, [facility] #[id number], 153, cm, 10/08/21 13:23:00 EDT, Height, 113.9, [...] FOR PAIN., # 100 Gm, 1 Refills, [facility] 51696, 30, APPLY 1 GM TOPICALLY 4 TIMES A DAY FOR PAIN, 153, cm, 06/07/21 11:07:00 EST, Height, 105, kg, 05/31/21 15:15:00 EST, Dry Weight Start Date: 08/05/21 Status: Ordered Dilaudid 2 mg oral tablet 1 tablet = 2 mg, By Mouth, 2 times a day, PRN Pain , Severe, checked masspat, # 28 tablet, 0 Refills, Maintenance, 01/18/22 17:28:00 EDT, Tablet, [facility] #30672, Partial fill upon patient request if the prescription is for a schedule II o... Start Date: 01/18/22 Status: Ordered Estrace Vaginal Cream 0.1 mg/g = 2 Gm, Vaginally, Daily at bedtime, 2g PV daily at bedtime x 2 weeks, then 1g PV 1-3x per week, # 42.5 Gm, 5 Refills, Maintenance, 11/09/21 11:17:00 EDT, [facility] #[id number], Partial fill upon patient request if the prescription is for a sche... Start Date: 11/09/21 Status: Ordered estradiol 0.0375 mg/24 hours twice weekly transdermal film, extended release See Instructions, 1 patch Topically, change patch twice a week, # 1 pack/packet, 1 Refills, Maintenance, 12/07/21 10:42:00 EDT, [facility] #[id number], Partial fill upon patient request if the prescription is for a schedule II opioid drug., 153,... Start Date: 12/07/21 Status: Ordered gabapentin 800 mg oral tablet See Instructions, TAKE 1 TABLET BY MOUTH FOUR TIMES DAILY, # 360 tablet, 0 Refills, [facility] #[id number], 153, cm, 10/08/21 13:23:00 EDT, Height, 113.9, [...] capsule, 1 Refills, Maintenance, 12/08/21 10:10:00 EDT, [facility] #97991, 153, cm, 10/08/21 13:23:00 EDT, Height, 113.9,kg, [...] 1 Refills, Maintenance, 11/30/21 15:44:00 EDT, Tablet, [facility] #05777, [place]... Start Date: 11/30/21 Status: Ordered levothyroxine 0.112 mg oral tablet 1 tablet, By Mouth, Daily, AVOID ANTACIDS, CALCIUM, OR IRON FOR AT LEAST 4 HOURS BEFORE OR 4 HOURS AFTER; ON AN ON AN EMPTY STOMACH, # 90 tablet, 0 Refills, Maintenance, 01/20/22 17:46:00 EDT, [facility] #[id number], 153, cm, 01/04/22 13:15:00 ED... Start Date: 01/20/22 Status: Ordered lidocaine 3% topical gel 1 application, Topically, 2 times a day, PRN as needed for pain, to replace 2% topical, # 28.5 Gm, 2 Refills, Acute 03/29/22 14:17:00 EST, 12/28/21 14:17:00 EDT, Gel, [facility] #36791, Partial fill upon patient request if the prescription i... Start Date: 12/28/21 Stop Date: 03/29/22 Status: Ordered lidocaine 4% topical cream 1 application, Topically, 2 times a day, PRN Pain , Mild, # 30 Gm, 1 Refills, Acute 01/27/22 17:31:00 EDT, 12/28/21 17:31:00 EDT, Cream, [facility] #[id number], Partial fill upon patient requestif the prescription is for a schedule II opioid cedrick... Start Date: 12/28/21 Stop Date: 01/27/22 Status: Ordered meloxicam 15 mg oral tablet 1/2 TO 1 TABLET, By Mouth, Daily, PRN NEEDED FOR MODERATE PAIN, # 30 tablet, 5 Refills, Maintenance, 01/10/22 20:40:00 EDT, [facility] #49992, 153, cm, 01/04/22 13:15:00 EDT, Height, 113.9, [...] capsule, 0 Refills, Maintenance, 01/16/22 8:28:00 EDT, [facility] #[id number], 153, cm, 01/04/22 13:15:00 EDT, Height, 113.9, kg, 10/08/21 13:23:00 EDT, Dry Weight Start Date: 01/16/22 Status: Ordered ondansetron 4 mg oral tablet 1 tablet = 4 mg, By Mouth, Every 8 hours, PRN Nausea & Vomiting, # 30 tablet, 1 Refills, Maintenance, 11/10/21 14:47:00 EDT, [facility] #53325, 153, cm, 10/08/21 13:23:00 EDT, Height, 113.9, kg, 10/08/21 13:23:00 EDT, Dry Weight Start Date: 11/10/21 Status: Ordered oxybutynin 5 mg oral tablet 1 tablet, By Mouth, 3 times a day, # 270 tablet, 1 Refills, 01/10/22 10:29:00 EDT, [facility] #[id number], 153, cm, 01/04/22 13:15:00 EDT, Height, 113.9, [...] Name: Candis CARDENAS, Kaiden Villalta Address: Address: [address] [place] [address] [facility] [address]
--- OUTSIDE RECORDS SUMMARY | 2022-12-30 08:30 | XMS_ITS | Continuity of Care Document ---
Author Name Unknown Organization [facility] Address [address] [place] [address]- Care Team Providers Care Head Of English Name Role Phone Candis CARDENAS, Kaiden Villalta Primary Care Physician [place] [facility] [place] 03[place]21 [facility] [address] [place], [place] [address] Allergies, Adverse Reactions, Alerts Substance [...] EDT, Route to Pharmacy Electronically, [facility]/pharmacy #[id number], Partial fill upon patient request if the prescription is for a schedule II... Start Date: 12/24/20 Status: Ordered baclofen 10 mg oral tablet 10 mg, 1, tablet, By Mouth, 3 times a day, PRN, # 30 tablet, Refills 0, Tot. Refills 0, Maintenance, Spasm, 01/31/19 21:47:23 EDT, Route to Pharmacy Electronically, [id number], [facility]/pharmacy #[id number] Start Date: 01/31/19 Stop Date: 02/14/19 Status: Ordered benzonatate 100 mg oral capsule 2 capsule, By Mouth, 3 times a day, PRN NEEDED FOR COUGH, # 30 capsule, 1 Refills, Physician Stop 02/19/22 16:55:00 EDT, 02/19/21 16:54:00 EDT, [facility]/pharmacy #[id number], 160, cm, 12/04/20 [...] 1 Refills, Maintenance, 02/25/21 8:28:00 EST, Capsule, [facility]/pharmacy #0911, Partial fill upon patient request if the [...] 30 tablet, 1 Refills, [facility] 13616, 160, cm, 12/04/20 10:52:00 EDT, Height, 104.6, [...] # 15 tablet, 0 Refills, [facility], 160, cm, 12/04/20 10:52:00 EDT, Height, 104.6, [...] 0 Refills, Maintenance, 11/16/20 8:39:00 EDT, Aerosol, [facility]/pharmacy #[id number], Partial fill upon patient [...] Refills, Maintenance, 11/03/20 13:28:00 EDT, Tablet, [facility], Partial fill upon patient request if the [...]
--- OUTSIDE RECORDS SUMMARY | 2022-12-30 08:30 | XMS_ITS | Continuity of Care Document ---
Author Name Unknown Organization [facility] Address [address] [place] [address]- Care Team Providers Care Tensile Tester Name Role Phone Kaiden Chirinos MD Primary Care Physician [phone] Encounter [facility] [place] Date(s): 06/11/19 - 08/02/19 [facility] [address] [place] [address] Attending Physician: Tobi Cruz MD Admitting Physician: Tobi Cruz MD Allergies, Adverse Reactions, Alerts Substance Reaction Severity Status morphine Active Adhesive Bandage Active Percocet 7.5/325 Active Medications baclofen 10 mg oral tablet 10 mg, 1, tablet, By Mouth, 3 times a day, PRN, # 30 tablet, Refills 0, Tot. Refills 0, Maintenance, Spasm, 01/31/19 21:47:23 EDT, Route to Pharmacy Electronically, [id number], [facility]/pharmacy #[id number] Start Date: [...]
--- OUTSIDE RECORDS SUMMARY | 2022-12-30 08:30 | XMS_ITS | Continuity of Care Document ---
Author Name Unknown Organization [facility] Address [address] [place] [address]- Care Team Providers Care Supervisor Lamp Shades Name Role Phone Candis CARDENAS, Kaiden Villalta Primary Care Physician [phone] Encounter [facility] [place] Date(s): 10/11/21 - 11/10/21 [facility] [address] [place], [place] [address] Allergies, Adverse Reactions, [...] 8.5 Gm,0 Refills, Maintenance, 09/28/21 16:57:00 EDT, [facility] #[id number], 2 puffs Inhalation Every 4 hours,PRN: NEEDED FOR WHEEZING/cough/shortness... Start Date: 09/28/21 Status: Ordered albuterol 0.083% inhalation solution 3 mL = 2.5 mg, Inhalation, Every 4 hours, PRN for wheezing/cough/shortness of breath, # 25 each, 0 Refills, Maintenance, 10/14/21 22:10:00 EDT, Solution, [facility] #[id number], Partial fill upon patient request if the prescription is for a sched... Start Date: 10/14/21 Status: Ordered benzonatate 100 mg oral capsule 2 capsule, By Mouth, 3 times a day, PRN NEEDED FOR COUGH, # 30 capsule, 1 Refills, Physician Stop 11/10/22 14:46:00 EDT, 03/19/22 17:38:00 EST, [facility] #[id number], 153, cm, 10/08/21 13:23:00 EDT, Height, 113.9, kg, 10/08/21 13:23:00 EDT, D... Start Date: 03/19/22 Stop Date: 11/10/22 Status: Ordered budesonide 1 mg/2 mL inhalation suspension 2 mL = 1 mg, Neb, 2 times a day, rinse mouth out after use, # 120 mL, 1 Refills, Maintenance, 10/25/21 18:30:00 EDT, Suspension, [facility] #78515, Partial fill upon patient request if the [...] 0 Refills, Maintenance, 11/18/20 21:02:00 EDT, Tablet, [facility]/pharmacy #[id number], Partial fill upon patient... Start Date: 11/18/20 Status: Ordered diclofenac 1% topical gel = 1 Gm, Topically, 4 times a day, FOR PAIN., # 100 Gm, 1 Refills, [facility]ORE 66930, 30, APPLY 1 GM TOPICALLY 4 TIMES A DAY FOR PAIN, 153, cm, 06/07/21 11:07:00 EST, Height, 105, kg, 05/31/21 15:15:00 EST, Dry Weight Start Date: 08/05/21 Status: Ordered Dilaudid 2 mg oral tablet 1 tablet = 2 mg, By Mouth, 2 times a day, PRN Pain , Severe, checked masspat, # 28 tablet, 0 Refills, Maintenance, 11/10/21 14:47:00 EDT, Tablet, [facility] #[id number], Partial fill upon patient request if the prescription is for a schedule II o... Start Date: 11/10/21 Status: Ordered Estrace Vaginal Cream 0.1 mg/g = 2 Gm, Vaginally, Daily at bedtime, 2g PV daily at bedtime x 2 weeks, then 1g PV 1-3x per week, # 42.5 Gm, 5 Refills, Maintenance, 11/09/21 11:17:00 EDT, [facility] #[id number], Partial fill upon patient request if the prescription is for a sche... Start Date: 11/09/21 Status: Ordered gabapentin 800 mg oral tablet See Instructions, TAKE 1 TABLET BY MOUTH FOUR TIMES DAILY, # 360 tablet, 0 Refills, [facility] #02483, 153, cm, 10/08/21 13:23:00 EDT, Height, 113.9, [...] capsule, 1 Refills, Maintenance, 09/28/21 16:58:00 EDT, [facility] #[id number], 153, cm, 08/10/21 11:19:00 EDT, Height, 105, [...] 1 Refills, Maintenance, 07/30/21 12:25:00 EDT, Tablet, [facility] #[id number], Partial fill upon patient request if the prescription is for a schedule II opioid drug... Start Date: 07/30/21 Status: Ordered levothyroxine 0.1 mg oral tablet 1 tablet = 100 mcg, By Mouth, Daily, dose increase, # 90 tablet, 0 Refills, Maintenance, 11/01/21 16:08:00 EDT, [facility] #07694, Please discontinue [facility], 153, cm, 10/08/21 13:23:00 EDT, Height, 113.9, kg, 10/08/21 13:23:00 EDT, Dry Weight Start Date: 11/01/21 Status: Ordered lidocaine 2% topical gel with applicator 5 mL = 0.1 Gm, Topically, 2 times a day, PRN Pain , Moderate, # 60 mL, 2 Refills, Soft Stop, 09/24/21 16:43:00 EDT, Gel, [facility] #05253, Partial fill upon patient request if the [...] 90 capsule, 0 Refills, 09/27/21 14:31:00 EDT, [facility] #80845, 153, cm, 08/10/21 11:19:00 EDT, Height, 105, kg, 05/31/21 15:15:00 EST, Dry Weight Start Date: 09/27/21 Status: Ordered ondansetron 4 mg oral tablet 1 tablet = 4 mg, By Mouth, Every 8 hours, PRN Nausea & Vomiting, # 30 tablet, 1 Refills, Maintenance, 11/10/21 14:47:00 EDT, [facility] #71829, 153, cm, 10/08/21 13:23:00 EDT, Height, 113.9, kg, 10/08/21 13:23:00 EDT, Dry Weight Start Date: 11/10/21 Status: Ordered oxybutynin 5 mg oral tablet 1 tablet, By Mouth, 3 times a day, # 270 tablet, 1 Refills, [facility] 58686, 153, cm, 08/10/21 11:19:00 EDT, Height, 105, [...] 1 Refills, Maintenance, 07/30/21 12:22:00 EDT, Tablet, [facility] #17375, Partial fill upon patient request if the [...]
--- OUTSIDE RECORDS SUMMARY | 2022-12-30 08:30 | XMS_ITS | Continuity of Care Document ---
Author Name Unknown Organization [facility] Address [address] [place] [address]- Care Team Providers Care Computer Artist Name Role Phone Kaiden Chirinos MD Primary Care Physician Encounter [facility] [place] Date(s): 12/16/20 - 01/15/21 [facility] [address] [place], [place] [address] Allergies, Adverse Reactions, Alerts [...] EDT, Route to Pharmacy Electronically, [facility]/pharmacy #[id number], Partial fill upon patient request if the prescription is for a schedule II... Start Date: 12/24/20 Status: Ordered baclofen 10 mg oral tablet 10 mg, 1, tablet, By Mouth, 3 times a day, PRN, # 30 tablet, Refills 0, Tot. Refills 0, Maintenance, Spasm, 01/31/19 21:47:23 EDT, Route to Pharmacy Electronically, [id number], [facility]/pharmacy #[id number] Start Date: 01/31/19 Stop Date: [...] Refills, Maintenance, 11/09/20 23:47:00EDT, Tablet, [facility]/pharmacy #[id number], Partial fill upon patient request [...] Maintenance, 11/05/20 11:43:00 EDT, Tablet, [facility]/pharmacy #[id number], Partial fill upon patient request [...]
--- OUTSIDE RECORDS SUMMARY | 2022-12-30 08:31 | XMS_ITS | Continuity of Care Document ---
Author Name Unknown Organization [facility] Address [address] [place] [address], [address] [place] [address]- Care Team Providers Care Healthcare Administration Intern Name Role Phone Candis CARDENAS, Kaiden Villalta Primary Care Physician [place] [facility] [place] - 01/06/[address], [address] [place] [address]- Allergies, Adverse Reactions, Alerts Substance Reaction Severity [...] 8.5 Gm,0 Refills, Maintenance, 12/22/21 10:40:00 T, [facility] #[id number], 2 puffs Inhalation Every 4 hours,PRN: NEEDED FOR WHEEZING/cough/shortness... Start Date: 12/22/21 Status: Ordered albuterol 0.083% inhalation solution 3 mL = 2.5 mg, Inhalation, Every 4 hours, PRN for wheezing/cough/shortness of breath, # 25 each, 0 Refills, Maintenance, 10/14/21 22:10:00 EDT, Solution, [facility] #[id number], Partial fill upon patient request if the [...] tablet, 0 Refills, Maintenance, 12/27/21 13:43:00 EDT, [facility] #[id number], 153, cm, 10/08/21 13:23:00 EDT, Height, 113.9, [...] FOR PAIN., # 100 Gm, 1 Refills, [id number], 30, APPLY 1 GM TOPICALLY 4 TIMES A DAY FOR PAIN, 153, cm, 06/07/21 11:07:00 EST, Height, 105, kg, 05/31/21 15:15:00 EST, Dry Weight Start Date: 08/05/21 Status: Ordered Dilaudid 2 mg oral tablet 1 tablet = 2 mg, By Mouth, 2 times a day, PRN Pain , Severe, checked masspat, # 28 tablet, 0 Refills, Maintenance, 01/05/22 10:35:00 EDT, Tablet, [facility] #[id number], Partial fill upon patient request if the prescription is for a schedule II o... Start Date: 01/05/22 Status: Ordered Estrace Vaginal Cream 0.1 mg/g = 2 Gm, Vaginally, Daily at bedtime, 2g PV daily at bedtime x 2 weeks, then 1g PV 1-3x per week, # 42.5 Gm, 5 Refills, Maintenance, 11/09/21 11:17:00 EDT, [facility] #[id number], Partial fill upon patient request if the prescription is for a sche... Start Date: 11/09/21 Status: Ordered estradiol 0.0375 mg/24 hours twice weekly transdermal film, extended release See Instructions, 1 patch Topically, change patch twice a week, # 1 pack/packet, 1 Refills, Maintenance, 12/07/21 10:42:00 EDT, [facility] #[id number], Partial fill upon patient request if the prescription is for a schedule II opioid drug., 153,... Start Date: 12/07/21 Status: Ordered gabapentin 800 mg oral tablet See Instructions, TAKE 1 TABLET BY MOUTH FOUR TIMES DAILY, # 360 tablet, 0 Refills, [facility] #[id number], 153, cm, 10/08/21 13:23:00 EDT, Height, 113.9, [...] capsule, 1 Refills, Maintenance, 12/08/21 10:10:00 EDT, [facility] #[id number], 153, cm, 10/08/21 13:23:00 EDT, Height, 113.9,kg, [...] 1 Refills, Maintenance, 07/30/21 12:25:00 EDT, Tablet, [facility] #[id number], Partial fill upon patient request if the prescription is for a schedule II opioid drug... Start Date: 07/30/21 Status: Ordered levothyroxine 0.1 mg oral tablet 1 tablet = 100 mcg, By Mouth, Daily, dose increase, # 90 tablet, 0 Refills, Maintenance, 11/01/21 16:08:00 EDT, [facility] #[id number], Please discontinue 88ug, 153, cm, 10/08/21 13:23:00 [...] tablet, 1 Refills, Maintenance, 11/30/21 15:44:00 EDT, [facility] #[id number], [place]... Start Date: 11/30/21 Status: Ordered lidocaine 3% topical gel 1 application, Topically, 2 times a day, PRN as needed for pain, to replace 2% topical, # 28.5 Gm, 2 Refills, Acute 03/29/22 14:17:00 EST, 12/28/21 14:17:00 EDT, Gel, [facility] #[id number], Partial fill upon patient request if the prescription i... Start Date: 12/28/21 Stop Date: 03/29/22 Status: Ordered lidocaine 4% topical cream 1 application, Topically, 2 times a day, PRN Pain , Mild, # 30 Gm, 1 Refills, Acute 01/27/22 17:31:00 EDT, 12/28/21 17:31:00 EDT, Cream, [facility] #[id number], Partial fill upon patient requestif the prescription is for a schedule II opioid cedrick... Start Date: 12/28/21 Stop Date: 01/27/22 Status: Ordered meloxicam 15 mg oral tablet 1/2 TO 1 TABLET, By Mouth, Daily, PRN NEEDED FOR MODERATE PAIN, # 30 tablet, 1 Refills, :04:00 EDT, [facility] #[id number], 153, cm, 10/08/21 13:23:00 EDT, Height, 113.9, [...] 90 capsule, 0 Refills, 09/27/21 14:31:00 EDT, [facility] #[id number], 153, cm, 08/10/21 11:19:00 EDT, Height, 105, kg, 05/31/21 15:15:00 EST, Dry Weight Start Date: 09/27/21 Status: Ordered ondansetron 4 mg oral tablet 1 tablet = 4 mg, By Mouth, Every 8 hours, PRN Nausea & Vomiting, # 30 tablet, 1 Refills, Maintenance, 11/10/21 14:47:00 EDT, [facility] #[id number], 153, cm, 10/08/21 13:23:00 EDT, Height, 113.9, kg, 10/08/21 13:23:00 EDT, Dry Weight Start Date: 11/10/21 Status: Ordered oxybutynin 5 mg oral tablet 1 tablet, By Mouth, 3 times a day, # 270 tablet, 1 Refills, 01/05/22 9:12:00 EDT, [facility] #[id number], 153, cm, 01/04/22 13:15:00 EDT, Height, 113.9, [...] 01/11/22 13:32:00 EDT, 01/04/22 13:32:00 EDT, Tablet, [facility] #[id number], Partial fill upon patient request if the [...] Personnel Name: Candis CARDENAS, Kaiden Villalta Address: [address] [place] [address] Adult & Pediatric Medicine [place], [place] [address]
--- OUTSIDE RECORDS SUMMARY | 2022-12-30 08:31 | XMS_ITS | Continuity of Care Document ---
Author Name Unknown Organization [facility] Address [address] [address]- Care Team Providers Care Orthopaedic Physician Assistant Name Role Phone Candis CARDENAS, Kaiden Villalta Primary Care Physician [phone] Encounter [facility] [place] Date(s): 11/03/22 - 12/22/22 [facility] and [address] [address]- Attending Physician: Cecilia Joshi CNM Admitting Physician: [...] 8.5 Gm,0 Refills, Maintenance, 12/22/21 10:40:00 EDT, [facility] #[id number], 2 puffs Inhalation Every 4 hours,PRN: NEEDED FOR WHEEZING/cough/shortness... Start Date: 12/22/21 Status: Ordered albuterol 0.083% inhalation solution 3 mL = 2.5 mg, Inhalation, Every 4 hours, PRN for wheezing/cough/shortness of breath, # 25 each, 0 Refills, Maintenance, 06/29/22 13:08:00 EDT, Solution, [facility] #[id number], Partial fill upon patient request if the prescription is for a sched... Start Date: 06/29/22 Status: Ordered [place] Saline Mist 0.65% nasal spray 2 sprays, Nares, Both, 4 times a day, # 1 each, 0 Refills, Maintenance, 02/04/22 13:32:00 EDT, [facility] #[id number], Partial fill upon patient request if the [...] tablet, 0 Refills, Maintenance, 12/27/21 13:43:00 EDT, [facility] #[id number], 153, cm, 10/08/21 13:23:00 EDT, Height, 113.9, kg, 10/08/21 13:23:00EDT, Dry Weight Start Date: 12/27/21 Status: Ordered chlorhexidine 2% topical liquid See Instructions, 1 application to bilateral forearms twice weekly, # 120 mL, 3 Refills, Soft Stop,06/17/22 11:06:00 EST, Liquid, [facility] #[id number], Partial fill upon patient request if the prescription is for a schedule II opioid drug., 1... Start Date: 06/17/22 Status: Ordered chlorhexidine 4% topical soap See Instructions, apply topically twice weekly to skin on forearms, # 120 mL, 2 Refills, Soft Stop,06/17/22 16:03:00 EST, [facility] #[id number], Partial fill upon patient request if the prescription is for a schedule II opioid drug., apply topi... Start Date: 06/17/22 Status: Ordered clonazePAM 0.5 mg oral tablet 1 tablet = 0.5 mg, By Mouth, 4 times a day, PRN Anxiety, Patient on controlled substance contract. Please do NOT fill until 09/23/2020, # 112 tablet, 0 Refills, Maintenance, 11/18/20 21:02:00 EDT, Tablet, [facility] #[id number], Partial fill upon patient... Start Date: 11/18/20 Status: Ordered diclofenac 1% topical gel = 1 Gm, Topically, 4 times a day, FOR PAIN., # 100 Gm, 1 Refills, [id number], 30, APPLY 1 GM TOPICALLY 4 TIMES A DAY FOR PAIN, 153, cm, 06/07/21 11:07:00 EST, Height, 105, kg, 05/31/21 15:15:00 EST, Dry Weight Start Date: 08/05/21 Status: Ordered Dilaudid 2 mg oral tablet 1 tablet = 2 mg, By Mouth, 2 times a day, PRN Pain , Severe, checked masspat, # 56 tablet, 0 Refills, Maintenance, 11/28/22 11:25:00 EDT, Tablet, [facility] #[id number], Partial fill upon patient request if the prescription is for a schedule II o... Start Date: 11/28/22 Status: Ordered Estrace Vaginal Cream 0.1 mg/g = 2 Gm, Vaginally, Daily at bedtime, 2g PV daily at bedtime x 2 weeks, then 1g PV 1-3x per week, # 42.5 Gm, 5 Refills, Maintenance, 11/09/21 11:17:00 EDT, [facility] #[id number], Partial fill upon patient request if the prescription is for a sche... Start Date: 11/09/21 Status: Ordered Estradiol Patch 0.0375 mg/24 hours twice weekly transdermal film, extended release See Instructions, APPLY 1 PATCH TOPICALLY TWICE WEEKLY DIRECTED, # 8 patch, 2 Refills, Maintenance, 09/22/22 21:55:00 EDT, [facility] #[id number], 28, APPLY 1 PATCH TOPICALLY TWICE WEEKLY DIRECTED, 153, cm, 06/17/22 10:53:00 EST, Height, 10... Start Date: 09/22/22 Status: Ordered fluconazole 150 mg oral tablet 1 tablet = 150 mg, By Mouth, Once, PRN vaginal yeast infection, repeat dose in 72 hours if symptomsnot resolved, # 2 tablet, 0 Refills, Soft Stop, 11/08/22 15:31:00 EDT, Tablet, [facility]#[id number], Partial fill upon patient request if the pr... Start Date: 11/08/22 Status: Ordered fluticasone 50 mcg/inh nasal spray See Instructions, SHAKE LIQUID AND USE 1 SPRAY IN EACH NOSTRIL TWICE DAILY, # 16 Gm, 1 Refills, Maintenance, 05/18/22 13:57:00 EST, [facility] #[id number], 30, SHAKE LIQUID AND USE 1 SPRAY IN EACH NOSTRIL TWICE DAILY, 153, cm, 04/25/22 16:23:00 E... Start Date: 05/18/22 Status: Ordered gabapentin 800 mg oral tablet 1 tablet, By Mouth, 4 times a day, # 360 tablet, 1 Refills, Maintenance, 10/25/22 21:47:00 EDT, [facility] #[id number], 153, cm, 06/17/22 10:53:00 EST, Height, 109, [...] capsule, 1 Refills, Maintenance, 11/15/22 11:13:00 EDT, [facility] #[id number], 154, cm, 10/29/22 14:42:00 EDT, Height, 109, [...] 1 Refills, Maintenance, 04/28/22 13:51:00 EST, Tablet, [facility] #[id number], Partial fill upon patient request if the prescription is for a schedule II opioid drug., 153, cm... Start Date: 04/28/22 Status: Ordered lidocaine 4% topical cream 1 application, Topically, 3 times a day, PRN Pain , Mild, # 30 Gm, 1 Refills, Maintenance, 06/24/2315:24:00 EST, Cream, [facility] #[id number], Partial fill upon patient request if the prescription is for a schedule II opioid drug., 1 applicatio... Start Date: 06/23/22 Status: Ordered meloxicam 15 mg oral tablet 1/2 TO 1 TABLET, By Mouth, Daily, PRN NEEDED FOR MODERATE PAIN, # 30 tablet, 5 Refills, Maintenance, 01/10/22 20:40:00 EDT, [facility] #[id number], 153, cm, 01/04/22 13:15:00 EDT, Height, 113.9, [...] capsule, 1 Refills, Maintenance, 07/26/22 14:24:00 EDT, [facility] #[id number], 153, cm, 06/17/22 10:53:00 EST, Height, 109, kg, 06/17/22 10:53:00 EST, Dry Weight Start Date: 07/26/22 Status: Ordered ondansetron 4 mg oral tablet 1 tablet, By Mouth, Every 8 hours, PRN NEEDED FOR NAUSEA OR VOMITING, # 30 tablet, 1 Refills, Maintenance, 10/27/22 23:08:00 EDT, [facility] #[id number], 153, cm, 06/17/22 10:53:00 EST, Height, 109, kg, 06/17/22 10:53:00 EST, Dry Weight Start Date: 10/27/22 Status: Ordered oxybutynin 5 mg oral tablet 1 tablet, By Mouth, 3 times a day, # 270 tablet, 1 Refills, Maintenance, 10/04/22 20:44:00 EDT, [facility] #[id number], 153, cm, 06/17/22 10:53:00 EST, Height, 109, [...] 11/18/22 16:07:00 EDT, Route to Pharmacy Electronically, [facility] #[id number], Partial fill upon patient request if the prescrip... Start Date: 11/18/22 Status: Ordered traZODone 50 mg oral tablet 1-2 tablet, By Mouth, Daily, one hour prior to bedtime. dose increase, # 60 tablet, Refills 2, Tot.Refills 2, Maintenance, 07/01/22 14:21:00 EDT, Route to Pharmacy Electronically, [facility] #[id number], Partial fill upon patient request if the... Start Date: 07/01/22 Status: Ordered triamcinolone 0.1% topical cream 1 application, Topically, 3 times a day, PRN arm rash, # 30 Gm, 1 Refills, Acute 06/08/23 9:53:00 EST, 06/08/22 9:53:00 EST, Cream, [facility] #[id number], Partial fill upon patient request if the [...] Primary Care Member Role: PCP Address: Address: [address] [place] [address] Adult [facility] [place] [address]- Care Team Related Persons Name: RODOLFO SHEIKH Address: home [address] [facility] [address] [place] [address] Name: CHIARA TEE Address: home [address] [place] [address] [place] [address]
--- OUTSIDE RECORDS SUMMARY | 2022-12-30 08:31 | XMS_ITS | Continuity of Care Document ---
Author Name Unknown Organization [facility] Address [address] [place] [address]- Care Team Providers Care Lead Custodian Name Role Phone Kaiden Chirinos MD Primary Care Physician Encounter [facility] [place] Date(s): 11/18/22 - 11/25/22 [facility] [address] [place] [address]- Encounter Diagnosis Left low back pain(Discharge Diagnosis) - 11/18/22 Bilateral primary osteoarthritis of knee(Discharge Diagnosis) - 11/18/22 Attending Physician: Kaiden Chirinos MD Allergies, Adverse [...] 8.5 Gm,0 Refills, Maintenance, 12/22/21 10:40:00 EDT, [facility] #[id number], 2 puffs Inhalation Every 4 hours,PRN: NEEDED FOR WHEEZING/cough/shortness... Start Date: 12/22/21 Status: Ordered albuterol 0.083% inhalation solution 3 mL = 2.5 mg, Inhalation, Every 4 hours, PRN for wheezing/cough/shortness of breath, # 25 each, 0 Refills, Maintenance, 06/29/22 13:08:00 EDT, Solution, [facility] #[id number], Partial fill upon patient request if the prescription is for a sched... Start Date: 06/29/22 Status: Ordered [place] Saline Mist 0.65% nasal spray 2 sprays, Nares, Both, 4 times a day, # 1 each, 0 Refills, Maintenance, 02/04/22 13:32:00 EDT, [facility] #[id number], Partial fill upon patient request if the [...] tablet, 0 Refills, Maintenance, 12/27/21 13:43:00 EDT, [facility] #[id number], 153, cm, 10/08/21 13:23:00 EDT, Height, 113.9, kg, 10/08/21 13:23:00EDT, Dry Weight Start Date: 12/27/21 Status: Ordered chlorhexidine 2% topical liquid See Instructions, 1 application to bilateral forearms twice weekly, # 120 mL, 3 Refills, Soft Stop,06/17/22 11:06:00 EST, Liquid, [facility] #[id number], Partial fill upon patient request if the prescription is for a schedule II opioid drug., 1... Start Date: 06/17/22 Status: Ordered chlorhexidine 4% topical soap See Instructions, apply topically twice weekly to skin on forearms, # 120 mL, 2 Refills, Soft Stop,06/17/22 16:03:00 EST, [facility] #[id number], Partial fill upon patient request if the prescription is for a schedule II opioid drug., apply topi... Start Date: 06/17/22 Status: Ordered clonazePAM 0.5 mg oral tablet 1 tablet = 0.5 mg, By Mouth, 4 times a day, PRN Anxiety, Patient on controlled substance contract. Please do NOT fill until 09/23/2020, # 112 tablet, 0 Refills, Maintenance, 11/18/20 21:02:00 EDT, Tablet, [facility] #[id number], Partial fill upon patient... Start Date: 11/18/20 Status: Ordered diclofenac 1% topical gel = 1 Gm, Topically, 4 times a day, FOR PAIN., # 100 Gm, 1 Refills, [facility] 67993, 30, APPLY 1 GM TOPICALLY 4 TIMES A DAY FOR PAIN, 153, cm, 06/07/21 11:07:00 EST, Height, 105, kg, 05/31/21 15:15:00 EST, Dry Weight Start Date: 08/05/21 Status: Ordered Dilaudid 2 mg oral tablet 1 tablet = 2 mg, By Mouth, 2 times a day, PRN Pain , Severe, checked masspat, # 56 tablet, 0 Refills, Maintenance, 10/25/22 21:47:00 EDT, Tablet, [facility] #[id number], Partial fill upon patient request if the prescription is for a schedule II o... Start Date: 10/25/22 Status: Ordered Estrace Vaginal Cream 0.1 mg/g = 2 Gm, Vaginally, Daily at bedtime, 2g PV daily at bedtime x 2 weeks, then 1g PV 1-3x per week, # 42.5 Gm, 5 Refills, Maintenance, 11/09/21 11:17:00 EDT, [facility] #[id number], Partial fill upon patient request if the prescription is for a sche... Start Date: 11/09/21 Status: Ordered Estradiol Patch 0.0375 mg/24 hours twice weekly transdermal film, extended release See Instructions, APPLY 1 PATCH TOPICALLY TWICE WEEKLY DIRECTED, # 8 patch, 2 Refills, Maintenance, 09/22/22 21:55:00 EDT, [facility] #[id number], 28, APPLY 1 PATCH TOPICALLY TWICE WEEKLY DIRECTED, 153, cm, 06/17/22 10:53:00 EST, Height, 10... Start Date: 09/22/22 Status: Ordered fluconazole 150 mg oral tablet 1 tablet = 150 mg, By Mouth, Once, PRN vaginal yeast infection, repeat dose in 72 hours if symptomsnot resolved, # 2 tablet, 0 Refills, Soft Stop, 11/08/22 15:31:00 EDT, Tablet, [facility]#07348, Partial fill upon patient request if the pr... Start Date: 11/08/22 Status: Ordered fluticasone 50 mcg/inh nasal spray See Instructions, SHAKE LIQUID AND USE 1 SPRAY IN EACH NOSTRIL TWICE DAILY, # 16 Gm, 1 Refills, Maintenance, 05/18/22 13:57:00 EST, [facility] #[id number], 30, SHAKE LIQUID AND USE 1 SPRAY IN EACH NOSTRIL TWICE DAILY, 153, cm, 04/25/22 16:23:00 E... Start Date: 05/18/22 Status: Ordered gabapentin 800 mg oral tablet 1 tablet, By Mouth, 4 times a day, # 360 tablet, 1 Refills, Maintenance, 10/25/22 21:47:00 EDT, [facility] #[id number], 153, cm, 06/17/22 10:53:00 EST, Height, 109, [...] capsule, 1 Refills, Maintenance, 11/15/22 11:13:00 EDT, [facility] #[id number], 154, cm, 10/29/22 14:42:00 EDT, Height, 109, [...] 1 Refills, Maintenance, 04/28/22 13:51:00 EST, Tablet, [facility] #[id number], Partial fill upon patient request if the prescription is for a schedule II opioid drug., 153, cm... Start Date: 04/28/22 Status: Ordered lidocaine 4% topical cream 1 application, Topically, 3 times a day, PRN Pain , Mild, # 30 Gm, 1 Refills, Maintenance, 06/24/2315:24:00 EST, Cream, [facility] #[id number], Partial fill upon patient request if the prescription is for a schedule II opioid drug., 1 applicatio... Start Date: 06/23/22 Status: Ordered meloxicam 15 mg oral tablet 1/2 TO 1 TABLET, By Mouth, Daily, PRN NEEDED FOR MODERATE PAIN, # 30 tablet, 5 Refills, Maintenance, 01/10/22 20:40:00 EDT, [facility] #[id number], 153, cm, 01/04/22 13:15:00 EDT, Height, 113.9, [...] capsule, 1 Refills, Maintenance, 07/26/22 14:24:00 EDT, [facility] #[id number], 153, cm, 06/17/22 10:53:00 EST, Height, 109, kg, 06/17/22 10:53:00 EST, Dry Weight Start Date: 07/26/22 Status: Ordered ondansetron 4 mg oral tablet 1 tablet, By Mouth, Every 8 hours, PRN NEEDED FOR NAUSEA OR VOMITING, # 30 tablet, 1 Refills, Maintenance, 10/27/22 23:08:00 EDT, [facility] #[id number], 153, cm, 06/17/22 10:53:00 EST, Height, 109, kg, 06/17/22 10:53:00 EST, Dry Weight Start Date: 10/27/22 Status: Ordered oxybutynin 5 mg oral tablet 1 tablet, By Mouth, 3 times a day, # 270 tablet, 1 Refills, Maintenance, 10/04/22 20:44:00 EDT, [facility] #[id number], 153, cm, 06/17/22 10:53:00 EST, Height, 109, [...] 11/18/22 16:07:00 EDT, Route to Pharmacy Electronically, [facility] #[id number], Partial fill upon patient request if the prescrip... Start Date: 11/18/22 Status: Ordered traZODone 50 mg oral tablet 1-2 tablet, By Mouth, Daily, one hour prior to bedtime. dose increase, # 60 tablet, Refills 2, Tot.Refills 2, Maintenance, 07/01/22 14:21:00 EDT, Route to Pharmacy Electronically, [facility] #[id number], Partial fill upon patient request if the... Start Date: 07/01/22 Status: Ordered triamcinolone 0.1% topical cream 1 application, Topically, 3 times a day, PRN arm rash, # 30 Gm, 1 Refills, Acute 06/08/23 9:53:00 EST, 06/08/22 9:53:00 EST, Cream, [facility] #[id number], Partial fill upon patient request if the [...] Effective Dates Health Status Clinical Service Informant Left low back pain Discharge Diagnosis 11/18/22 Bilateral primary osteoarthritis of knee Discharge Diagnosis 11/18/22 Social History Social History Type Response Smoking Status Former smoker, quit more than 30 days ago;Never entered on: 11/09/21 Sex Patient Care team information Care Team Personnel Name: Kaiden Chirinos MD Position: [facility] Physician - Primary Care Member Role: PCP Address: Address: [address] [place] [address] Adult & [place] [address]- Care Team Related Persons Name: RODOLFO SHEIKH Address: home [address] [facility] [address] [place] [id number] Name: CHIARA TEE Address: home [address] [place] [address] [place] [id number]
--- OUTSIDE RECORDS SUMMARY | 2022-12-30 08:31 | XMS_ITS | Continuity of Care Document ---
Author Name Unknown Organization [facility] Address [address] [place] [address]- Care Team Providers Care Fraud Representative Name Role Phone Candis CARDENAS, Kaiden Villalta Primary Care Physician Encounter [facility] Date(s): 08/26/22 - 09/25/22 [facility] [address] [place], [place] [address] Allergies, Adverse Reactions, Alerts Substance Reaction [...] 8.5 Gm,0 Refills, Maintenance, 12/22/21 10:40:00 EDT, [facility] #[id number], 2 puffs Inhalation Every 4 hours,PRN: NEEDED FOR WHEEZING/cough/shortness... Start Date: 12/22/21 Status: Ordered albuterol 0.083% inhalation solution 3 mL = 2.5 mg, Inhalation, Every 4 hours, PRN for wheezing/cough/shortness of breath, # 25 each, 0 Refills, Maintenance, 06/29/22 13:08:00 EDT, Solution, [facility] #[id number], Partial fill upon patient request if the prescription is for a sched... Start Date: 06/29/22 Status: Ordered [place] Saline Mist 0.65% nasal spray 2 sprays, Nares, Both, 4 times a day, # 1 each, 0 Refills, Maintenance, 02/04/22 13:32:00 EDT, [facility] #[id number], Partial fill upon patient request if the [...] tablet, 0 Refills, Maintenance, 12/27/21 13:43:00 EDT, [facility] #[id number], 153, cm, 10/08/21 13:23:00 EDT, Height, 113.9, kg, 10/08/21 13:23:00EDT, Dry Weight Start Date: 12/27/21 Status: Ordered chlorhexidine 2% topical liquid See Instructions, 1 application to bilateral forearms twice weekly, # 120 mL, 3 Refills, Soft Stop,06/17/22 11:06:00 EST, Liquid, [facility] #[id number], Partial fill upon patient request if the prescription is for a schedule II opioid drug., 1... Start Date: 06/17/22 Status: Ordered chlorhexidine 4% topical soap See Instructions, apply topically twice weekly to skin on forearms, # 120 mL, 2 Refills, Soft Stop,06/17/22 16:03:00 EST, [facility] #[id number], Partial fill upon patient request if the [...] FOR PAIN., # 100 Gm, 1 Refills, [facility] [id number], 30, APPLY 1 GM TOPICALLY 4 TIMES A DAY FOR PAIN, 153, cm, 06/07/21 11:07:00 EST, Height, 105, kg, 05/31/21 15:15:00 EST, Dry Weight Start Date: 08/05/21 Status: Ordered Dilaudid 2 mg oral tablet 1 tablet = 2 mg, By Mouth, 2 times a day, PRN Pain , Severe, checked masspat, # 56 tablet, 0 Refills, Maintenance, 08/26/22 14:09:00 EDT, Tablet, [facility] #[id number], Partial fill upon patient request if the prescription is for a schedule II o... Start Date: 08/26/22 Status: Ordered Estrace Vaginal Cream 0.1 mg/g = 2 Gm, Vaginally, Daily at bedtime, 2g PV daily at bedtime x 2 weeks, then 1g PV 1-3x per week, # 42.5 Gm, 5 Refills, Maintenance, 11/09/21 11:17:00 EDT, [facility] #[id number], Partial fill upon patient request if the prescription is for a sche... Start Date: 11/09/21 Status: Ordered Estradiol Patch 0.0375 mg/24 hours twice weekly transdermal film, extended release See Instructions, APPLY 1 PATCH TOPICALLY TWICE WEEKLY DIRECTED, # 8 patch, 2 Refills, Maintenance, 09/22/22 21:55:00 EDT, [facility] #[id number], 28, APPLY 1 PATCH TOPICALLY TWICE WEEKLY DIRECTED, 153, cm, 06/17/22 10:53:00 EST, Height, 10... Start Date: 09/22/22 Status: Ordered fluconazole 150 mg oral tablet 1 tablet = 150 mg, By Mouth, Once, PRN vaginal yeast infection, # 1 tablet, 0 Refills, Soft Stop, 03/15/22 10:42:00 EST, Tablet, [facility] #[id number], Partial fill upon patient request if the prescription is for a schedule II opioid drug., 153,... Start Date: 03/15/22 Status: Ordered fluticasone 50 mcg/inh nasal spray See Instructions, SHAKE LIQUID AND USE 1 SPRAY IN EACH NOSTRIL TWICE DAILY, # 16 Gm, 1 Refills, Maintenance, 05/18/22 13:57:00 EST, [facility] #[id number], 30, SHAKE LIQUID AND USE 1 SPRAY IN EACH NOSTRIL TWICE DAILY, 153, cm, 04/25/22 16:23:00 E... Start Date: 05/18/22 Status: Ordered gabapentin 800 mg oral tablet 1 tablet, By Mouth, 4 times a day, # 360 tablet, 1 Refills, Maintenance, 04/19/22 12:59:00 EST, [facility] #[id number], 153, cm, 01/04/22 13:15:00 EDT, Height, 113.9, [...] capsule, 1 Refills, Maintenance, 07/18/22 9:45:00 EDT, [facility] #[id number], 153, cm, 06/17/22 10:53:00 EST, Height, 109, [...] 1 Refills, Maintenance, 04/28/22 13:51:00 EST, Tablet, [facility] #[id number], Partial fill upon patient request if the prescription is for a schedule II opioid drug., 153, cm... Start Date: 04/28/22 Status: Ordered lidocaine 4% topical cream 1 application, Topically, 3 times a day, PRN Pain , Mild, # 30 Gm, 1 Refills, Maintenance, 06/24/2315:24:00 EST, Cream, [facility] #[id number], Partial fill upon patient request if the prescription is for a schedule II opioid drug., 1 applicatio... Start Date: 06/23/22 Status: Ordered meloxicam 15 mg oral tablet 1/2 TO 1 TABLET, By Mouth, Daily, PRN NEEDED FOR MODERATE PAIN, # 30 tablet, 5 Refills, Maintenance, 01/10/22 20:40:00 EDT, [facility] #[id number], 153, cm, 01/04/22 13:15:00 EDT, Height, 113.9, [...] capsule, 1 Refills, Maintenance, 07/26/22 14:24:00 EDT, [facility] #[id number], 153, cm, 06/17/22 10:53:00 EST, Height, 109, kg, 06/17/22 10:53:00 EST, Dry Weight Start Date: 07/26/22 Status: Ordered ondansetron 4 mg oral tablet 1 tablet, By Mouth, Every 8 hours, PRN NEEDED FOR NAUSEA OR VOMITING, # 30 tablet, 1 Refills, Maintenance, 06/14/22 10:29:00 EST, [facility] #[id number], 153, cm, 06/08/22 9:37:00 EST, Height, 109, kg, 04/25/22 15:54:00 EST, Dry Weight Start Date: 06/14/22 Status: Ordered oxybutynin 5 mg oral tablet 1 tablet, By Mouth, 3 times a day, # 270 tablet, 0 Refills, Maintenance, 07/05/22 8:13:00 EDT, [facility] #[id number], 153, cm, 06/17/22 10:53:00 EST, Height, 109, [...] 07/01/22 14:21:00 EDT, Route to Pharmacy Electronically, [facility] #[id number], Partial fill upon patient request if the... Start Date: 07/01/22 Status: Ordered triamcinolone 0.1% topical cream 1 application, Topically, 3 times a day, PRN arm rash, # 30 Gm, 1 Refills, Acute 06/08/23 9:53:00 EST, 06/08/22 9:53:00 EST, Cream, [facility] #[id number], Partial fill upon patient request if the [...] Primary Care Member Role: PCP Address: Address: [address] [place] [address] Adult [facility] [place] [address]- Care Team Related Persons Name: RODOLFO SHEIKH Address: home [address] [facility] [address] [place] [id number] Name: CHIARA TEE Address: home [address] [facility] [address] [place] [address]
--- OUTSIDE RECORDS SUMMARY | 2022-12-30 08:31 | XMS_ITS | Continuity of Care Document ---
Author Name Unknown Organization [facility] Address [address] [place] [address]- Care Team Providers Care Jailer Name Role Phone Candis CARDENAS, Kaiden Villalta Primary Care Physician Encounter [facility] Date(s): 11/17/21 - 12/17/21 [facility] [address] [place] [id number]- Allergies, Adverse Reactions, Alerts Substance Reaction Severity [...] 8.5 Gm,0 Refills, Maintenance, 12/08/21 20:52:00 EDT, [facility] #[id number], 2 puffs Inhalation Every 4 hours,PRN: NEEDED FOR WHEEZING/cough/shortness... Start Date: 12/08/21 Status: Ordered albuterol 0.083% inhalation solution 3 mL = 2.5 mg, Inhalation, Every 4 hours, PRN for wheezing/cough/shortness of breath, # 25 each, 0 Refills, Maintenance, 10/14/21 22:10:00 EDT, Solution, [facility] #[id number], Partial fill upon patient request if the prescription is for a sched... Start Date: 10/14/21 Status: Ordered benzonatate 100 mg oral capsule 2 capsule, By Mouth, 3 times a day, PRN NEEDED FOR COUGH, # 30 capsule, 1 Refills, Physician Stop 11/10/22 14:46:00 EDT, 03/19/22 17:38:00 EST, [facility] #[id number], 153, cm, 10/08/21 13:23:00 EDT, Height, 113.9, kg, 10/08/21 13:23:00 EDT, D... Start Date: 03/19/22 Stop Date: 11/10/22 Status: Ordered benzonatate 100 mg oral capsule 2 capsule, By Mouth, 3 times a day, PRN NEEDED FOR COUGH, # 30 capsule, 1 Refills, Physician Stop 12/10/22 15:43:00 EDT, 11/10/22 14:46:00 EDT, [facility] #[id number], 153, cm, 10/08/21 13:23:00 EDT, Height, 113.9, [...] 21:02:00 EDT, Tablet, [facility]/pharmacy #[id number], Partial fill upon patient... Start Date: 11/18/20 Status: Ordered diclofenac 1% topical gel = 1 Gm, Topically, 4 times a day, FOR PAIN., # 100 Gm, 1 Refills, [facility] [id number], 30, APPLY 1 GM TOPICALLY 4 TIMES A DAY FOR PAIN, 153, cm, 06/07/21 11:07:00 EST, Height, 105, kg, 05/31/21 15:15:00 EST, Dry Weight Start Date: 08/05/21 Status: Ordered Dilaudid 2 mg oral tablet 1 tablet = 2 mg, By Mouth, 2 times a day, PRN Pain , Severe, checked masspat, # 28 tablet, 0 Refills, Maintenance, 12/07/21 13:30:00 EDT, Tablet, [facility] #[id number], Partial fill upon patient request if the prescription is for a schedule II o... Start Date: 12/07/21 Status: Ordered Estrace Vaginal Cream 0.1 mg/g = 2 Gm, Vaginally, Daily at bedtime, 2g PV daily at bedtime x 2 weeks, then 1g PV 1-3x per week, # 42.5 Gm, 5 Refills, Maintenance, 11/09/21 11:17:00 EDT, [facility] #[id number], Partial fill upon patient request if the prescription is for a sche... Start Date: 11/09/21 Status: Ordered estradiol 0.0375 mg/24 hours twice weekly transdermal film, extended release See Instructions, 1 patch Topically, change patch twice a week, # 1 pack/packet, 1 Refills, Maintenance, 12/07/21 10:42:00 EDT, [facility] #[id number], Partial fill upon patient request if the prescription is for a schedule II opioid drug., 153,... Start Date: 12/07/21 Status: Ordered gabapentin 800 mg oral tablet See Instructions, TAKE 1 TABLET BY MOUTH FOUR TIMES DAILY, # 360 tablet, 0 Refills, [facility] #[id number], 153, cm, 10/08/21 13:23:00 EDT, Height, 113.9, [...] capsule, 1 Refills, Maintenance, 12/08/21 10:10:00 EDT, [facility] #[id number], 153, cm, 10/08/21 13:23:00 EDT, Height, 113.9,kg, [...] 1 Refills, Maintenance, 07/30/21 12:25:00 EDT, Tablet, [facility] #[id number], Partial fill upon patient request if the prescription is for a schedule II opioid drug... Start Date: 07/30/21 Status: Ordered levothyroxine 0.1 mg oral tablet 1 tablet = 100 mcg, By Mouth, Daily, dose increase, # 90 tablet, 0 Refills, Maintenance, 11/01/21 16:08:00 EDT, [facility] #[id number], Please discontinue 88ug, 153, cm, 10/08/21 13:23:00 [...] 1 Refills, Maintenance, 11/30/21 15:44:00 EDT, Tablet, [facility] #[id number], [place]... Start Date: 11/30/21 Status: Ordered lidocaine 2% topical gel with applicator 5 mL = 0.1 Gm, Topically, 2 times a day, PRN Pain , Moderate, # 60 mL, 2 Refills, Soft Stop, 09/24/21 16:43:00 EDT, Gel, [facility] #[id number], Partial fill upon patient request if the prescription is for a schedule II opioid drug., 153, cm, ... Start Date: 09/24/21 Status: Ordered meloxicam 15 mg oral tablet 1/2 TO 1 TABLET, By Mouth, Daily, PRN NEEDED FOR MODERATE PAIN, # 30 tablet, 1 Refills, 229:04:00 EDT, [facility] #[id number], 153, cm, 10/08/21 13:23:00 EDT, Height, 113.9, [...] 90 capsule, 0 Refills, 09/27/21 14:31:00 EDT, [facility] #[id number], 153, cm, 08/10/21 11:19:00 EDT, Height, 105, kg, 05/31/21 15:15:00 EST, Dry Weight Start Date: 09/27/21 Status: Ordered ondansetron 4 mg oral tablet 1 tablet = 4 mg, By Mouth, Every 8 hours, PRN Nausea & Vomiting, # 30 tablet, 1 Refills, Maintenance, 11/10/21 14:47:00 EDT, [facility] #[id number], 153, cm, 10/08/21 13:23:00 EDT, Height, 113.9, kg, 10/08/21 13:23:00 EDT, Dry Weight Start Date: 11/10/21 Status: Ordered oxybutynin 5 mg oral tablet 1 tablet, By Mouth, 3 times a day, # 270 tablet, 1 Refills, [facility] [id number], 153, cm, 08/10/21 11:19:00 EDT, Height, 105, [...] Personnel Name: Candis CARDENAS, Kaiden Villalta Address: [address] [place] [address] Adult & Pediatric Medicine [place], [place] [address]
--- OUTSIDE RECORDS SUMMARY | 2022-12-30 08:31 | XMS_ITS | Continuity of Care Document ---
Author Name Unknown Organization [facility] Address [address] [place] [address]- Care Team Providers Care Research Lab Assistant Name Role Phone Candis CARDENAS, Kaiden Villalta Primary Care Physician [place] [facility] Date(s): 03/03/22 - 04/02/22 [facility] [address] [place], [place] [address] Allergies, Adverse [...] 8.5 Gm,0 Refills, Maintenance, 12/22/21 10:40:00 EDT, [facility] #[id number], 2 puffs Inhalation Every 4 hours,PRN: NEEDED FOR WHEEZING/cough/shortness... Start Date: 12/22/21 Status: Ordered albuterol 0.083% inhalation solution 3 mL = 2.5 mg, Inhalation, Every 4 hours, PRN for wheezing/cough/shortness of breath, # 25 each, 0 Refills, Maintenance, 10/14/21 22:10:00 EDT, Solution, [facility] #[id number], Partial fill upon patient request if the prescription is for a sched... Start Date: 10/14/21 Status: Ordered [place] Saline Mist 0.65% nasal spray 2 sprays, Nares, Both, 4 times a day, # 1 each, 0 Refills, Maintenance, 02/04/22 13:32:00 EDT, [facility] #[id number], Partial fill upon patient request if the [...] tablet, 0 Refills, Maintenance, 12/27/21 13:43:00 EDT, [facility] #[id number], 153, cm, 10/08/21 13:23:00 EDT, Height, 113.9, [...] # 100 Gm, 1 Refills, [id number], 30, APPLY 1 GM TOPICALLY 4 TIMES A DAY FOR PAIN, 153, cm, 06/07/21 11:07:00 EST, Height, 105, kg, 05/31/21 15:15:00 EST, Dry Weight Start Date: 08/05/21 Status: Ordered Dilaudid 2 mg oral tablet 1 tablet = 2 mg, By Mouth, 2 times a day, PRN Pain , Severe, checked masspat, # 28 tablet, 0 Refills, Maintenance, 03/23/22 22:13:00 EST, Tablet, [facility] #[id number], Partial fill upon patient request if the prescription is for a schedule II o... Start Date: 03/23/22 Status: Ordered Estrace Vaginal Cream 0.1 mg/g = 2 Gm, Vaginally, Daily at bedtime, 2g PV daily at bedtime x 2 weeks, then 1g PV 1-3x per week, # 42.5 Gm, 5 Refills, Maintenance, 11/09/21 11:17:00 EDT, [facility] #[id number], Partial fill upon patient request if the prescription is for a sche... Start Date: 11/09/21 Status: Ordered Estradiol Patch 0.0375 mg/24 hours twice weekly transdermal film, extended release See Instructions, APPLY 1 PATCH TOPICALLY TWICE WEEKLY DIRECTED, # 8 patch, 6 Refills, Maintenance, 03/23/22 16:10:00 EST, [facility] #[id number], 28, APPLY 1 PATCH TOPICALLY TWICE WEEKLY DIRECTED, 153, cm, 01/04/22 13:15:00 EDT, Height, 11... Start Date: 03/23/22 Status: Ordered fluconazole 150 mg oral tablet 1 tablet = 150 mg, By Mouth, Once, PRN vaginal yeast infection, # 1 tablet, 0 Refills, Soft Stop, 03/15/22 10:42:00 EST, Tablet, [facility] #[id number], Partial fill upon patient request if the prescription is for a schedule II opioid drug., 153,... Start Date: 03/15/22 Status: Ordered gabapentin 800 mg oral tablet See Instructions, TAKE 1 TABLET BY MOUTH FOUR TIMES DAILY, # 360 tablet, 0 Refills, [facility] #[id number], 153, cm, 10/08/21 13:23:00 EDT, Height, 113.9, [...] capsule, 1 Refills, Maintenance, 12/08/21 10:10:00 EDT, [facility] #[id number], 153, cm, 10/08/21 13:23:00 EDT, Height, 113.9,kg, [...] 1 Refills, Maintenance, 03/14/22 15:04:00 EST, Tablet, [facility] #[id number], Partial fill upon patient request if the prescription is for a schedule II opioid drug., 153, cm... Start Date: 03/14/22 Status: Ordered meloxicam 15 mg oral tablet 1/2 TO 1 TABLET, By Mouth, Daily, PRN NEEDED FOR MODERATE PAIN, # 30 tablet, 5 Refills, Maintenance, 01/10/22 20:40:00 EDT, [facility] #[id number], 153, cm, 01/04/22 13:15:00 EDT, Height, 113.9, [...] capsule, 0 Refills, Maintenance, 01/16/22 8:28:00 EDT, [facility] #[id number], 153, cm, 01/04/22 13:15:00 EDT, Height, 113.9, kg, 10/08/21 13:23:00 EDT, Dry Weight Start Date: 01/16/22 Status: Ordered ondansetron 4 mg oral tablet 1 tablet, By Mouth, Every 8 hours, PRN NEEDED FOR NAUSEA OR VOMITING, # 30 tablet, 0 Refills, Maintenance, 03/01/22 11:29:00 EST, [facility] #[id number], 153, cm, 01/04/22 13:15:00 EDT, Height, 113.9, kg, 10/08/21 13:23:00 EDT, Dry Weight Start Date: 03/01/22 Status: Ordered oxybutynin 5 mg oral tablet 1 tablet, By Mouth, 3 times a day, # 270 tablet, 1 Refills, 01/10/22 10:29:00 EDT, [facility] #[id number], 153, cm, 01/04/22 13:15:00 EDT, Height, 113.9, [...] 03/14/22 15:10:00 EST, Route to Pharmacy Electronically, [facility] #[id number], Partial fill upon patient request if the... [...] Physician Member Role: PCP Address: Address: [address] [place] [address] Adult & [place] [address]- Care Team Related Persons Name: RODOLFO SHEIKH Address: home [address] [facility] [address] [place] [address] Name: CHIARA TEE Address: home [address] [place] [address]
--- OUTSIDE RECORDS SUMMARY | 2022-12-30 08:31 | XMS_ITS | Continuity of Care Document ---
Author Name Unknown Organization [facility] Address [address] [place] [address]- Care Team Providers Care Bilingual Sales Consultant Name Role Phone Candis CARDENAS, Kaiden Villalta Primary Care Physician [place] [facility] 10/13/21 - 11/12/21 [facility] [address] [place], [place] [address] Allergies, Adverse Reactions, Alerts Substance [...] 8.5 Gm,0 Refills, Maintenance, 09/28/21 16:57:00 EDT, [facility] #[id number], 2 puffs Inhalation Every 4 hours,PRN: NEEDED FOR WHEEZING/cough/shortness... Start Date: 09/28/21 Status: Ordered albuterol 0.083% inhalation solution 3 mL = 2.5 mg, Inhalation, Every 4 hours, PRN for wheezing/cough/shortness of breath, # 25 each, 0 Refills, Maintenance, 10/14/21 22:10:00 EDT, Solution, [facility] #[id number], Partial fill upon patient request if the prescription is for a sched... Start Date: 10/14/21 Status: Ordered benzonatate 100 mg oral capsule 2 capsule, By Mouth, 3 times a day, PRN NEEDED FOR COUGH, # 30 capsule, 1 Refills, Physician Stop 11/10/22 14:46:00 EDT, 03/19/22 17:38:00 EST, [facility] #[id number], 153, cm, 10/08/21 13:23:00 EDT, Height, 113.9, kg, 10/08/21 13:23:00 EDT, D... Start Date: 03/19/22 Stop Date: 11/10/22 Status: Ordered budesonide 1 mg/2 mL inhalation suspension 2 mL = 1 mg, Neb, 2 times a day, rinse mouth out after use, # 120 mL, 1 Refills, Maintenance, 10/25/21 18:30:00 EDT, Suspension, [facility] #[id number], Partial fill upon patient request if the [...] Refills, Maintenance, 11/18/20 21:02:00 EDT, Tablet, [facility]/pharmacy #[id number], Partial fill upon patient... Start Date: 11/18/20 Status: Ordered diclofenac 1% topical gel = 1 Gm, Topically, 4 times a day, FOR PAIN., # 100 Gm, 1 Refills, [facility] 64498, 30, APPLY 1 GM TOPICALLY 4 TIMES A DAY FOR PAIN, 153, cm, 06/07/21 11:07:00 EST, Height, 105, kg, 05/31/21 15:15:00 EST, Dry Weight Start Date: 08/05/21 Status: Ordered Dilaudid 2 mg oral tablet 1 tablet = 2 mg, By Mouth, 2 times a day, PRN Pain , Severe, checked masspat, # 28 tablet, 0 Refills, Maintenance, 11/10/21 14:47:00 EDT, Tablet, [facility] #[id number], Partial fill upon patient request if the prescription is for a schedule II o... Start Date: 11/10/21 Status: Ordered Estrace Vaginal Cream 0.1 mg/g = 2 Gm, Vaginally, Daily at bedtime, 2g PV daily at bedtime x 2 weeks, then 1g PV 1-3x per week, # 42.5 Gm, 5 Refills, Maintenance, 11/09/21 11:17:00 EDT, [facility] #[id number], Partial fill upon patient request if the prescription is for a sche... Start Date: 11/09/21 Status: Ordered gabapentin 800 mg oral tablet See Instructions, TAKE 1 TABLET BY MOUTH FOUR TIMES DAILY, # 360 tablet, 0 Refills, [facility] #[id number], 153, cm, 10/08/21 13:23:00 EDT, Height, 113.9, [...] capsule, 1 Refills, Maintenance, 09/28/21 16:58:00 EDT, [facility] #[id number], 153, cm, 08/10/21 11:19:00 EDT, Height, 105, [...] 1 Refills, Maintenance, 07/30/21 12:25:00 EDT, Tablet, [facility] #[id number], Partial fill upon patient request if the prescription is for a schedule II opioid drug... Start Date: 07/30/21 Status: Ordered levothyroxine 0.1 mg oral tablet 1 tablet = 100 mcg, By Mouth, Daily, dose increase, # 90 tablet, 0 Refills, Maintenance, 11/01/21 16:08:00 EDT, [facility] #[id number], Please discontinue 88ug, 153, cm, 10/08/21 13:23:00 EDT, Height, 113.9, kg, 10/08/21 13:23:00 EDT, Dry Weight Start Date: 11/01/21 Status: Ordered lidocaine 2% topical gel with applicator 5 mL = 0.1 Gm, Topically, 2 times a day, PRN Pain , Moderate, # 60 mL, 2 Refills, Soft Stop, 09/24/21 16:43:00 EDT, Gel, [facility] #[id number], Partial fill upon patient request if the [...] 90 capsule, 0 Refills, 09/27/21 14:31:00 EDT, [facility] #[id number], 153, cm, 08/10/21 11:19:00 EDT, Height, 105, kg, 05/31/21 15:15:00 EST, Dry Weight Start Date: 09/27/21 Status: Ordered ondansetron 4 mg oral tablet 1 tablet = 4 mg, By Mouth, Every 8 hours, PRN Nausea & Vomiting, # 30 tablet, 1 Refills, Maintenance, 11/10/21 14:47:00 EDT, [facility] #[id number], 153, cm, 10/08/21 13:23:00 EDT, Height, 113.9, kg, 10/08/21 13:23:00 EDT, Dry Weight Start Date: 11/10/21 Status: Ordered oxybutynin 5 mg oral tablet 1 tablet, By Mouth, 3 times a day, # 270 tablet, 1 Refills, [facility] [id number], 153, cm, 08/10/21 11:19:00 EDT, Height, 105, [...] 1 Refills, Maintenance, 07/30/21 12:22:00 EDT, Tablet, [facility] #[id number], Partial fill upon patient request if the [...]
--- OUTSIDE RECORDS SUMMARY | 2022-12-30 08:31 | XMS_ITS | Continuity of Care Document ---
Author Name Unknown Organization [facility] Address [address] [place] [address]- Care Team Providers Care Fabric Inspector Name Role Phone Kaiden Chirinos MD Primary Care Physician [place] [facility] [place]21 [facility] [address] [place], [place] [address] Allergies, Adverse Reactions, Alerts [...] 8.5 Gm,0 Refills, Maintenance, 12/22/21 10:40:00 EDT, [facility] #[id number], 2 puffs Inhalation Every 4 hours,PRN: NEEDED FOR WHEEZING/cough/shortness... Start Date: 12/22/21 Status: Ordered albuterol 0.083% inhalation solution 3 mL = 2.5 mg, Inhalation, Every 4 hours, PRN for wheezing/cough/shortness of breath, # 25 each, 0 Refills, Maintenance, 10/14/21 22:10:00 EDT, Solution, [facility] #[id number], Partial fill upon patient request if the prescription is for a sched... Start Date: 10/14/21 Status: Ordered benzonatate 100 mg oral capsule 2 capsule, By Mouth, 3 times a day, PRN NEEDED FOR COUGH, # 30 capsule, 1 Refills, Physician Stop 11/10/22 14:46:00 EDT, 03/19/22 17:38:00 EST, [facility] #[id number], 153, cm, 10/08/21 13:23:00 EDT, Height, 113.9, kg, 10/08/21 13:23:00 EDT, D... Start Date: 03/19/22 Stop Date: 11/10/22 Status: Ordered benzonatate 100 mg oral capsule 2 capsule, By Mouth, 3 times a day, PRN NEEDED FOR COUGH, # 30 capsule, 1 Refills, Physician Stop 12/10/22 15:43:00 EDT, 11/10/22 14:46:00 EDT, [facility] #[id number], 153, cm, 10/08/21 13:23:00 EDT, Height, 113.9, [...] EDT, Tablet, [facility]/pharmacy #[id number], Partial fill upon patient... Start Date: 11/18/20 Status: Ordered diclofenac 1% topical gel = 1 Gm, Topically, 4 times a day, FOR PAIN., # 100 Gm, 1 Refills, [facility] [id number], 30, APPLY 1 GM TOPICALLY 4 TIMES A DAY FOR PAIN, 153, cm, 06/07/21 11:07:00 EST, Height, 105, kg, 05/31/21 15:15:00 EST, Dry Weight Start Date: 08/05/21 Status: Ordered Dilaudid 2 mg oral tablet 1 tablet = 2 mg, By Mouth, 2 times a day, PRN Pain , Severe, checked masspat, # 28 tablet, 0 Refills, Maintenance, 12/22/21 10:40:00 EDT, Tablet, [facility] #[id number], Partial fill upon patient request if the prescription is for a schedule II o... Start Date: 12/22/21 Status: Ordered Estrace Vaginal Cream 0.1 mg/g = 2 Gm, Vaginally, Daily at bedtime, 2g PV daily at bedtime x 2 weeks, then 1g PV 1-3x per week, # 42.5 Gm, 5 Refills, Maintenance, 11/09/21 11:17:00 EDT, [facility] #[id number], Partial fill upon patient request if the prescription is for a sche... Start Date: 11/09/21 Status: Ordered estradiol 0.0375 mg/24 hours twice weekly transdermal film, extended release See Instructions, 1 patch Topically, change patch twice a week, # 1 pack/packet, 1 Refills, Maintenance, 12/07/21 10:42:00 EDT, [facility] #[id number], Partial fill upon patient request if the prescription is for a schedule II opioid drug., 153,... Start Date: 12/07/21 Status: Ordered gabapentin 800 mg oral tablet See Instructions, TAKE 1 TABLET BY MOUTH FOUR TIMES DAILY, # 360 tablet, 0 Refills, [facility] #[id number], 153, cm, 10/08/21 13:23:00 EDT, Height, 113.9, [...] capsule, 1 Refills, Maintenance, 12/08/21 10:10:00 EDT, [facility] #[id number], 153, cm, 10/08/21 13:23:00 EDT, Height, 113.9,kg, [...] 1 Refills, Maintenance, 07/30/21 12:25:00 EDT, Tablet, [facility] #[id number], Partial fill upon patient request if the prescription is for a schedule II opioid drug... Start Date: 07/30/21 Status: Ordered levothyroxine 0.1 mg oral tablet 1 tablet = 100 mcg, By Mouth, Daily, dose increase, # 90 tablet, 0 Refills, Maintenance, 11/01/21 16:08:00 EDT, [facility] #[id number], Please discontinue 88ug, 153, cm, 10/08/21 13:23:00 [...] 1 Refills, Maintenance, 11/30/21 15:44:00 EDT, Tablet, [facility] #[id number], [place]... Start Date: 11/30/21 Status: Ordered lidocaine 2% topical gel with applicator 5 mL = 0.1 Gm, Topically, 2 times a day, PRN Pain , Moderate, # 60 mL, 2 Refills, Soft Stop, 09/24/21 16:43:00 EDT, Gel, [facility] #[id number], Partial fill upon patient request if the prescription is for a schedule II opioid drug., 153, cm, ... Start Date: 09/24/21 Status: Ordered meloxicam 15 mg oral tablet 1/2 TO 1 TABLET, By Mouth, Daily, PRN NEEDED FOR MODERATE PAIN, # 30 tablet, 1 Refills, 229:04:00 EDT, [facility] #[id number], 153, cm, 10/08/21 13:23:00 EDT, Height, 113.9, [...] Refills, 09/27/21 14:31:00 EDT, [facility] #[id number], 153, cm, 08/10/21 11:19:00 EDT, Height, 105, kg, 05/31/21 15:15:00 EST, Dry Weight Start Date: 09/27/21 Status: Ordered ondansetron 4 mg oral tablet 1 tablet = 4 mg, By Mouth, Every 8 hours, PRN Nausea & Vomiting, # 30 tablet, 1 Refills, Maintenance, 11/10/21 14:47:00 EDT, [facility] #[id number], 153, cm, 10/08/21 13:23:00 EDT, Height, 113.9, kg, 10/08/21 13:23:00 EDT, Dry Weight Start Date: 11/10/21 Status: Ordered oxybutynin 5 mg oral tablet 1 tablet, By Mouth, 3 times a day, # 270 tablet, 1 Refills, [id number], 153, cm, 08/10/21 11:19:00 EDT, Height, 105, [...] Personnel Name: Candis CARDENAS, Kaiden Villalta Address: [address] [place] [address] Adult [facility] Pediatric Medicine [place], [place] [address]
--- OUTSIDE RECORDS SUMMARY | 2022-12-30 08:31 | XMS_ITS | Continuity of Care Document ---
Author Name Unknown Organization [facility] Address [address] [place] [address]- Care Team Providers Care Cyber Security Analyst Name Role Phone Candis CARDENAS, Kaiden Villalta Primary Care Physician [place] [facility] [place]21 [facility] [address] [place], [place] [address] Allergies, Adverse Reactions, Alerts Substance Reaction [...] # 8.5 each, 0 Refills, [id number], 20, INHALE 2 PUFFS BY MOUTH EVERY 4 HOURS NEEDED FOR WHEEZING, 160, cm, 03/30/21 10:47:00 EST, Height, 104.6, kg, 12/04/20 10:52:00 EDT, Dry Weight Start Date: 04/28/21 Status: Ordered amitriptyline 10 mg oral tablet 10 mg, 1, tablet, By Mouth, Daily at bedtime, # 90 tablet, Refills 1, Tot. Refills 1, Maintenance, 12/24/20 16:08:00 EDT, Route to Pharmacy Electronically, [facility]/pharmacy #[id number], Partial fill upon patient request if the prescription is for a schedule II... Start Date: 12/24/20 Status: Ordered baclofen 10 mg oral tablet 10 mg, 1, tablet, By Mouth, 3 times a day, PRN, # 30 tablet, Refills 0, Tot. Refills 0, Maintenance, Spasm, 01/31/19 21:47:23 EDT, Route to Pharmacy Electronically, [id number], [facility]/pharmacy #[id number] Start Date: 01/31/19 Stop [...] 16:55:00 EDT, 02/19/21 16:54:00 EDT, [facility]/pharmacy #[id number], [...] 10:07:00 EDT, 06/30/21 10:06:00 EDT, Tablet, [facility]/pharmacy #[id number], Partial fill upon patient request if the prescription is for a schedule II opioid drRobert.. Start Date: 06/30/21 Stop Date: 06/30/22 Status: Ordered Famotidine 0 Refills, Maintenance, 04/07/19 16:11:00 EST Start Date: 04/07/19 Status: Ordered gabapentin 800 mg oral tablet 1 tablet, By Mouth, 4 times a day, # 360 tablet, 1 Refills, [facility] [id number], 160, cm, 03/30/21 10:47:00 EST, Height, 104.6, [...] Maintenance, 05/14/21 15:23:00 EST, Tablet, [facility]/pharmacy #[id number], Partial fill upon patient request if the prescription is for a schedule II opioid drug., 160, c... Start Date: 05/14/21 Status: Ordered omeprazole 20 mg oral enteric coated capsule 1 capsule, By Mouth, Daily, # 90 capsule, 1 Refills, [facility] [id number], 160, cm, 03/30/21 10:47:00 EST, Height, 104.6, [...] Maintenance, 10/30/20 8:45:00 EDT, Tablet, [facility]/pharmacy #[id number], Partial fill upon patient reques... Start Date: 10/30/20 Status: Ordered traZODone 150 mg oral tablet 1.5 tablet = 225 mg, By Mouth, Daily at bedtime, dose increase, # 135 tablet, 1 Refills, Maintenance, 04/06/21 12:26:00 EST, Tablet, [facility]/pharmacy #[id number], Partial fill upon patient [...]
--- OUTSIDE RECORDS SUMMARY | 2022-12-30 08:31 | XMS_ITS | Continuity of Care Document ---
Author Name Unknown Organization [facility] Address Unknown Care Team Providers Care Production Ski Repairer Name Role Phone Kaiden Chirinos MD Primary Care Physician [phone] Encounter [facility] [place] Date(s): 10/25/21 - 11/24/21 [facility] Allergies, Adverse Reactions, Alerts Substance Reaction [...] # 8.5 Gm,0 Refills, Maintenance, 09/28/21 16:57:[id number], 2 puffs Inhalation Every 4 hours,PRN: NEEDED FOR WHEEZING/cough/shortness... Start Date: 09/28/21 Status: Ordered albuterol 0.083% inhalation solution 3 mL = 2.5 mg, Inhalation, Every 4 hours, PRN for wheezing/cough/shortness of breath, # 25 each, 0 Refills, Maintenance, 10/14/21 22:10:00 EDT, [facility] #[id number], Partial fill upon patient request if the prescription is for a sched... Start Date: 10/14/21 Status: Ordered Azithromycin 5 Day Dose Pack 250 mg oral tablet See Instructions, Take 2 tablets on day one. Take 1 tablet daily on Days 2-5., # 6 tablet, 0 Refills, Maintenance, 11/18/21 11:47:00 EDT, Tablet, [facility] #[id number], Partial fill upon patient request if the prescription is for a schedule II... Start Date: 11/18/21 Status: Ordered benzonatate 100 mg oral capsule 2 capsule, By Mouth, 3 times a day, PRN NEEDED FOR COUGH, # 30 capsule, 1 Refills, Physician Stop 11/10/22 14:46:00 EDT, 03/19/22 17:38:00 EST, [facility] #[id number], 153, cm, 10/08/21 13:23:00 EDT, Height, 113.9, kg, 10/08/21 13:23:00 EDT, D... Start Date: 03/19/22 Stop Date: 11/10/22 Status: Ordered budesonide 1 mg/2 mL inhalation suspension 2 mL = 1 mg, Neb, 2 times a day, rinse mouth out after use, # 120 mL, 1 Refills, Maintenance, 10/25/21 18:30:00 EDT, Suspension, [facility] #[id number], Partial fill upon patient request if the [...] 0 Refills, Maintenance, 11/18/20 21:02:00 EDT, Tablet, [facility]/pharmacy #[id number], Partial fill upon patient... Start Date: 11/18/20 Status: Ordered diclofenac 1% topical gel = 1 Gm, Topically, 4 times a day, FOR PAIN., # 100 Gm, 1 Refills, [facility] 0[facility], 30, APPLY 1 GM TOPICALLY 4 TIMES A DAY FOR PAIN, 153, cm, 06/07/21 11:07:00 EST, Height, 105, kg, 05/31/21 15:15:00 EST, Dry Weight Start Date: 08/05/21 Status: Ordered Dilaudid 2 mg oral tablet 1 tablet = 2 mg, By Mouth, 2 times a day, PRN Pain , Severe, checked masspat, # 28 tablet, 0 Refills, Maintenance, 11/23/21 16:09:00 EDT, Tablet, [facility] #[id number], Partial fill upon patient request if the prescription is for a schedule II o... Start Date: 11/23/21 Status: Ordered Estrace Vaginal Cream 0.1 mg/g = 2 Gm, Vaginally, Daily at bedtime, 2g PV daily at bedtime x 2 weeks, then 1g PV 1-3x per week, # 42.5 Gm, 5 Refills, Maintenance, 11/09/21 11:17:00 EDT, [facility] #[id number], Partial fill upon patient request if the prescription is for a sche... Start Date: 11/09/21 Status: Ordered gabapentin 800 mg oral tablet See Instructions, TAKE 1 TABLET BY MOUTH FOUR TIMES DAILY, # 360 tablet, 0 Refills, [facility] #[id number], 153, cm, 10/08/21 13:23:00 EDT, Height, 113.9, [...] capsule, 1 Refills, Maintenance, 09/28/21 16:58:00 EDT, [facility] #[id number], 153, cm, 08/10/21 11:19:00 EDT, Height, 105, [...] 1 Refills, Maintenance, 07/30/21 12:25:00 EDT, Tablet, [facility] #[id number], Partial fill upon patient request if the prescription is for a schedule II opioid drug... Start Date: 07/30/21 Status: Ordered levothyroxine 0.1 mg oral tablet 1 tablet = 100 mcg, By Mouth, Daily, dose increase, # 90 tablet, 0 Refills, Maintenance, 11/01/21 16:08:00 EDT, [facility] #[id number], Please discontinue 88ug, 153, cm, 10/08/21 13:23:00 EDT, Height, 113.9, kg, 10/08/21 13:23:00 EDT, Dry Weight Start Date: 11/01/21 Status: Ordered lidocaine 2% topical gel with applicator 5 mL = 0.1 Gm, Topically, 2 times a day, PRN Pain , Moderate, # 60 mL, 2 Refills, Soft Stop, 09/24/21 16:43:00 EDT, Gel, [facility] #[id number], Partial fill upon patient request if the prescription is for a schedule II opioid drug., 153, cm, ... Start Date: 09/24/21 Status: Ordered meloxicam 15 mg oral tablet 1/2 TO 1 TABLET, By Mouth, Daily, PRN NEEDED FOR MODERATE PAIN, # 30 tablet, 1 Refills, :04:00 EDT, [facility] #[id number], 153, cm, 10/08/21 13:23:00 EDT, Height, 113.9, [...] 90 capsule, 0 Refills, 09/27/21 14:31:00 EDT, [facility] #[id number], 153, cm, 08/10/21 11:19:00 EDT, Height, 105, kg, 05/31/21 15:15:00 EST, Dry Weight Start Date: 09/27/21 Status: Ordered ondansetron 4 mg oral tablet 1 tablet = 4 mg, By Mouth, Every 8 hours, PRN Nausea & Vomiting, # 30 tablet, 1 Refills, Maintenance, 11/10/21 14:47:00 EDT, [facility] #[id number], 153, cm, 10/08/21 13:23:00 EDT, Height, 113.9, kg, 10/08/21 13:23:00 EDT, Dry Weight Start Date: 11/10/21 Status: Ordered oxybutynin 5 mg oral tablet 1 tablet, By Mouth, 3 times a day, # 270 tablet, 1 Refills, [facility] 8[facility]95, 153, cm, 08/10/21 11:19:00 EDT, Height, 105, [...] 1 Refills, Maintenance, 07/30/21 12:22:00 EDT, Tablet, [facility] #[id number], Partial fill upon patient request if the [...]
--- OUTSIDE RECORDS SUMMARY | 2022-12-30 08:31 | XMS_ITS | Continuity of Care Document ---
Author Name Unknown Organization [facility] Address [address] [place] [address]- Care Team Providers Care Repairer Auto Clocks Name Role Phone Candis CARDENAS, Kaiden Villalta Primary Care Physician Encounter [facility] [place] Date(s): 08/26/22 - 09/25/22 [facility] [address] [place], [place] [address] Allergies, Adverse Reactions, Alerts [...] 8.5 Gm,0 Refills, Maintenance, 12/22/21 10:40:00 EDT, [facility] #[id number], 2 puffs Inhalation Every 4 hours,PRN: NEEDED FOR WHEEZING/cough/shortness... Start Date: 12/22/21 Status: Ordered albuterol 0.083% inhalation solution 3 mL = 2.5 mg, Inhalation, Every 4 hours, PRN for wheezing/cough/shortness of breath, # 25 each, 0 Refills, Maintenance, 06/29/22 13:08:00 EDT, Solution, [facility] #[id number], Partial fill upon patient request if the prescription is for a sched... Start Date: 06/29/22 Status: Ordered Winnie Saline Mist 0.65% nasal spray 2 sprays, Nares, Both, 4 times a day, # 1 each, 0 Refills, Maintenance, 02/04/22 13:32:00 EDT, [facility] #[id number], Partial fill upon patient request if the [...] tablet, 0 Refills, Maintenance, 12/27/21 13:43:00 EDT, [facility] #[id number], 153, cm, 10/08/21 13:23:00 EDT, Height, 113.9, kg, 10/08/21 13:23:00EDT, Dry Weight Start Date: 12/27/21 Status: Ordered chlorhexidine 2% topical liquid See Instructions, 1 application to bilateral forearms twice weekly, # 120 mL, 3 Refills, Soft Stop,06/17/22 11:06:00 EST, Liquid, [facility] #[id number], Partial fill upon patient request if the prescription is for a schedule II opioid drug., 1... Start Date: 06/17/22 Status: Ordered chlorhexidine 4% topical soap See Instructions, apply topically twice weekly to skin on forearms, # 120 mL, 2 Refills, Soft Stop,06/17/22 16:03:00 EST, [facility] #[id number], Partial fill upon patient request if the [...] FOR PAIN., # 100 Gm, 1 Refills, [facility] 07160, 30, APPLY 1 GM TOPICALLY 4 TIMES A DAY FOR PAIN, 153, cm, 06/07/21 11:07:00 EST, Height, 105, kg, 05/31/21 15:15:00 EST, Dry Weight Start Date: 08/05/21 Status: Ordered Dilaudid 2 mg oral tablet 1 tablet = 2 mg, By Mouth, 2 times a day, PRN Pain , Severe, checked masspat, # 56 tablet, 0 Refills, Maintenance, 08/26/22 14:09:00 EDT, Tablet, [facility] #[id number], Partial fill upon patient request if the prescription is for a schedule II o... Start Date: 08/26/22 Status: Ordered Estrace Vaginal Cream 0.1 mg/g = 2 Gm, Vaginally, Daily at bedtime, 2g PV daily at bedtime x 2 weeks, then 1g PV 1-3x per week, # 42.5 Gm, 5 Refills, Maintenance, 11/09/21 11:17:00 EDT, [facility] #[id number], Partial fill upon patient request if the prescription is for a sche... Start Date: 11/09/21 Status: Ordered Estradiol Patch 0.0375 mg/24 hours twice weekly transdermal film, extended release See Instructions, APPLY 1 PATCH TOPICALLY TWICE WEEKLY DIRECTED, # 8 patch, 2 Refills, Maintenance, 09/22/22 21:55:00 EDT, [facility] #38613, 28, APPLY 1 PATCH TOPICALLY TWICE WEEKLY DIRECTED, 153, cm, 06/17/22 10:53:00 EST, Height, 10... Start Date: 09/22/22 Status: Ordered fluconazole 150 mg oral tablet 1 tablet = 150 mg, By Mouth, Once, PRN vaginal yeast infection, # 1 tablet, 0 Refills, Soft Stop, 03/15/22 10:42:00 EST, Tablet, [facility] #75059, Partial fill upon patient request if the prescription is for a schedule II opioid drug., 153,... Start Date: 03/15/22 Status: Ordered fluticasone 50 mcg/inh nasal spray See Instructions, SHAKE LIQUID AND USE 1 SPRAY IN EACH NOSTRIL TWICE DAILY, # 16 Gm, 1 Refills, Maintenance, 05/18/22 13:57:00 EST, [facility] #[id number], 30, SHAKE LIQUID AND USE 1 SPRAY IN EACH NOSTRIL TWICE DAILY, 153, cm, 04/25/22 16:23:00 E... Start Date: 05/18/22 Status: Ordered gabapentin 800 mg oral tablet 1 tablet, By Mouth, 4 times a day, # 360 tablet, 1 Refills, Maintenance, 04/19/22 12:59:00 EST, [facility] #[id number], 153, cm, 01/04/22 13:15:00 EDT, Height, 113.9, [...] capsule, 1 Refills, Maintenance, 07/18/22 9:45:00 EDT, [facility] #[id number], 153, cm, 06/17/22 10:53:00 EST, Height, 109, [...] 1 Refills, Maintenance, 04/28/22 13:51:00 EST, Tablet, [facility] #[id number], Partial fill upon patient request if the prescription is for a schedule II opioid drug., 153, cm... Start Date: 04/28/22 Status: Ordered lidocaine 4% topical cream 1 application, Topically, 3 times a day, PRN Pain , Mild, # 30 Gm, 1 Refills, Maintenance, 06/24/2315:24:00 EST, Cream, [facility] #09846, Partial fill upon patient request if the prescription is for a schedule II opioid drug., 1 applicatio... Start Date: 06/23/22 Status: Ordered meloxicam 15 mg oral tablet 1/2 TO 1 TABLET, By Mouth, Daily, PRN NEEDED FOR MODERATE PAIN, # 30 tablet, 5 Refills, Maintenance, 01/10/22 20:40:00 EDT, [facility] #[id number], 153, cm, 01/04/22 13:15:00 EDT, Height, 113.9, [...] capsule, 1 Refills, Maintenance, 07/26/22 14:24:00 EDT, [facility] #[id number], 153, cm, 06/17/22 10:53:00 EST, Height, 109, kg, 06/17/22 10:53:00 EST, Dry Weight Start Date: 07/26/22 Status: Ordered ondansetron 4 mg oral tablet 1 tablet, By Mouth, Every 8 hours, PRN NEEDED FOR NAUSEA OR VOMITING, # 30 tablet, 1 Refills, Maintenance, 06/14/22 10:29:00 EST, [facility] #[id number], 153, cm, 06/08/22 9:37:00 EST, Height, 109, kg, 04/25/22 15:54:00 EST, Dry Weight Start Date: 06/14/22 Status: Ordered oxybutynin 5 mg oral tablet 1 tablet, By Mouth, 3 times a day, # 270 tablet, 0 Refills, Maintenance, 07/05/22 8:13:00 EDT, [facility] #[id number], 153, cm, 06/17/22 10:53:00 EST, Height, 109, [...] 07/01/22 14:21:00 EDT, Route to Pharmacy Electronically, [facility] #[id number], Partial fill upon patient request if the... Start Date: 07/01/22 Status: Ordered triamcinolone 0.1% topical cream 1 application, Topically, 3 times a day, PRN arm rash, # 30 Gm, 1 Refills, Acute 06/08/23 9:53:00 EST, 06/08/22 9:53:00 EST, Cream, [facility] #[id number], Partial fill upon patient request if the [...] Primary Care Member Role: PCP Address: Address: [address] [place] [address] Adult [facility] [place] [address]- Care Team Related Persons Name: RODOLFO SHEIKH Address: home [address] [facility] [address] [place] [id number] Name: CHIARA TEE Address: home [address] [facility] [address] [place] [address]
--- OUTSIDE RECORDS SUMMARY | 2022-12-30 08:31 | XMS_ITS | Continuity of Care Document ---
Author Name Unknown Organization [facility] Address [address] [place] [id number]- Care Team Providers Care Hydraulic Specialist Name Role Phone Candis CARDENAS, Kaiden Villalta Primary Care Physician [phone] [place] [facility] [place]/22 [facility] [address]- [place] Allergies, Adverse Reactions, Alerts Substance Reaction [...] 8.5 Gm,0 Refills, Maintenance, 12/22/21 10:40:00 T, [facility] #[id number], 2 puffs Inhalation Every 4 hours,PRN: NEEDED FOR WHEEZING/cough/shortness... Start Date: 12/22/21 Status: Ordered albuterol 0.083% inhalation solution 3 mL = 2.5 mg, Inhalation, Every 4 hours, PRN for wheezing/cough/shortness of breath, # 25 each, 0 Refills, Maintenance, 10/14/21 22:10:00 EDT, Solution, [facility] #[id number], Partial fill upon patient request if the prescription is for a sched... Start Date: 10/14/21 Status: Ordered Arcadia Saline Mist 0.65% nasal spray 2 sprays, Nares, Both, 4 times a day, # 1 each, 0 Refills, Maintenance, 02/04/22 13:32:00 EDT, [facility] #[id number], Partial fill upon patient request if the [...] tablet, 0 Refills, Maintenance, 12/27/21 13:43:00 EDT, [facility] #[id number], 153, cm, 10/08/21 13:23:00 EDT, Height, 113.9, [...] # 100 Gm, 1 Refills, [id number], 30, APPLY 1 GM TOPICALLY 4 TIMES A DAY FOR PAIN, 153, cm, 06/07/21 11:07:00 EST, Height, 105, kg, 05/31/21 15:15:00 EST, Dry Weight Start Date: 08/05/21 Status: Ordered Dilaudid 2 mg oral tablet 1 tablet = 2 mg, By Mouth, 2 times a day, PRN Pain , Severe, checked masspat, # 56 tablet, 0 Refills, Maintenance, 05/31/22 15:38:00 EST, Tablet, [facility] #[id number], Partial fill upon patient request if the prescription is for a schedule II o... Start Date: 05/31/22 Status: Ordered Estrace Vaginal Cream 0.1 mg/g = 2 Gm, Vaginally, Daily at bedtime, 2g PV daily at bedtime x 2 weeks, then 1g PV 1-3x per week, # 42.5 Gm, 5 Refills, Maintenance, 11/09/21 11:17:00 EDT, [facility] #[id number], Partial fill upon patient request if the prescription is for a sche... Start Date: 11/09/21 Status: Ordered Estradiol Patch 0.0375 mg/24 hours twice weekly transdermal film, extended release See Instructions, APPLY 1 PATCH TOPICALLY TWICE WEEKLY DIRECTED, # 8 patch, 6 Refills, Maintenance, 03/23/22 16:10:00 EST, [facility] #[id number], 28, APPLY 1 PATCH TOPICALLY TWICE WEEKLY DIRECTED, 153, cm, 01/04/22 13:15:00 EDT, Height, 11... Start Date: 03/23/22 Status: Ordered fluconazole 150 mg oral tablet 1 tablet = 150 mg, By Mouth, Once, PRN vaginal yeast infection, # 1 tablet, 0 Refills, Soft Stop, 03/15/22 10:42:00 EST, Tablet, [facility] #[id number], Partial fill upon patient request if the prescription is for a schedule II opioid drug., 153,... Start Date: 03/15/22 Status: Ordered fluticasone 50 mcg/inh nasal spray See Instructions, SHAKE LIQUID AND USE 1 SPRAY IN EACH NOSTRIL TWICE DAILY, # 16 Gm, 1 Refills, Maintenance, 05/18/22 13:57:00 EST, [facility] #[id number], 30, SHAKE LIQUID AND USE 1 SPRAY IN EACH NOSTRIL TWICE DAILY, 153, cm, 04/25/22 16:23:00 E... Start Date: 05/18/22 Status: Ordered gabapentin 800 mg oral tablet 1 tablet, By Mouth, 4 times a day, # 360 tablet, 1 Refills, Maintenance, 04/19/22 12:59:00 EST, [facility] #[id number], 153, cm, 01/04/22 13:15:00 EDT, Height, 113.9, [...] capsule, 1 Refills, Maintenance, 05/20/22 12:57:00 EST, [facility] #[id number], 153, cm, 04/25/22 16:23:00 EST, Height, 109, [...] 1 Refills, Maintenance, 04/28/22 13:51:00 EST, Tablet, [facility] #[id number], Partial fill upon patient request if the prescription is for a schedule II opioid drug., 153, cm... Start Date: 04/28/22 Status: Ordered lidocaine 4% topical cream 1 application, Topically, 3 times a day, PRN pain of forearms, # 30 Gm, 1 Refills, Acute 06/23/22 16:24:00 EST, 04/25/22 16:23:00 EST, Cream, [facility] #[id number], Partial fill upon patient request if the prescription is for a schedule II opioi... Start Date: 04/25/22 Stop Date: 06/23/22 Status: Ordered meloxicam 15 mg oral tablet 1/2 TO 1 TABLET, By Mouth, Daily, PRN NEEDED FOR MODERATE PAIN, # 30 tablet, 5 Refills, Maintenance, 01/10/22 20:40:00 EDT, [facility] #[id number], 153, cm, 01/04/22 13:15:00 EDT, Height, 113.9, [...] capsule, 1 Refills, Maintenance, 04/19/22 12:41:00 EST, [facility] #[id number], 153, cm, 01/04/22 13:15:00 EDT, Height, 113.9, kg, 10/08/21 13:23:00 EDT, Dry Weight Start Date: 04/19/22 Status: Ordered ondansetron 4 mg oral tablet 1 tablet, By Mouth, Every 8 hours, PRN NEEDED FOR NAUSEA OR VOMITING, # 30 tablet, 1 Refills, Maintenance, 04/14/22 21:15:00 EST, [facility] #[id number], 153, cm, 01/04/22 13:15:00 EDT, Height, 113.9, kg, 10/08/21 13:23:00 EDT, Dry Weight Start Date: 04/14/22 Status: Ordered oxybutynin 5 mg oral tablet 1 tablet, By Mouth, 3 times a day, # 270 tablet, 1 Refills, 01/10/22 10:29:00 EDT, [facility] #[id number], 153, cm, 01/04/22 13:15:00 EDT, Height, 113.9, [...] 04/14/22 21:16:00 EST, Route to Pharmacy Electronically, [facility] #[id number], Partial fill upon patient request if the... [...] Personnel Name: Candis CARDENAS, Kaiden Villalta Position: [facility] Primary Care Physician Member Role: PCP Address: Address: [address] [place] [address] Adult [place] [address]- Care Team Related Persons Name: RODOLFO SHEIKH Address: home [address] [facility] [address] [place] [address] Name: CHIARA TEE Address: home [address] [place] [address] [place] [id number]
--- OUTSIDE RECORDS SUMMARY | 2022-12-30 08:31 | XMS_ITS | Continuity of Care Document ---
Author Name Unknown Organization [facility] Address [address] [place] [address]- Care Team Providers Care Rn Mds Name Role Phone Kaiden Chirinos MD Primary Care Physician [id number] Date(s): 06/22/21 - 09/19/21 [facility] [address] [place], [place] [address] Attending Physician: Kaiden Chirinos MD Allergies, Adverse [...] FOR WHEEZING, # 8.5 each, 0 Refills, [id number], 20, INHALE 2 PUFFS BY MOUTH EVERY 4 HOURS NEEDED FOR WHEEZING, 160, cm, 03/30/21 10:47:00 EST, Height, 104.6, kg, 12/04/20 10:52:00 EDT, Dry Weight Start Date: 04/28/21 Status: Ordered amitriptyline 10 mg oral tablet 10 mg, 1, tablet, By Mouth, Daily at bedtime, # 90 tablet, Refills 1, Tot. Refills 1, Maintenance, 07/30/21 12:25:00 EDT, Route to Pharmacy Electronically, [facility] #[id number], Partial fill upon patient request if the prescription is for a jasmin... Start Date: 07/30/21 Status: Ordered Augmentin 875 mg-125 mg oral tablet 1 tablet, By Mouth, Every 12 hours, for 5 days, with food or milk, # 10 tablet, 0 Refills, Acute 09/20/21 21:22:00 EDT, 09/15/21 21:22:00 EDT, Tablet, [facility] #[id number], Partial fill upon patient request if the [...] Stop 02/19/22 16:55:00 EDT, 02/19/21 16:54:00 EDT, [facility] #[id number], 160, cm, 12/04/20 10:52:00 [...] FOR PAIN., # 100 Gm, 1 Refills, [facility], 30, APPLY 1 GM TOPICALLY 4 TIMES A DAY FOR PAIN, 153, cm, 06/07/21 11:07:00 EST, Height, 105, kg, 05/31/21 15:15:00 EST, Dry Weight Start Date: 08/05/21 Status: Ordered Dilaudid 2 mg oral tablet 1 tablet = 2 mg, By Mouth, 2 times a day, PRN Pain , Severe, # 28 tablet, 0 Refills, Maintenance, 08/09/21 22:27:00 EDT, Tablet, [facility] #[id number], Partial fill upon patient request if the prescription is for a schedule II opioid drug., 153,... Start Date: 08/09/21 Status: Ordered Dilaudid 2 mg oral tablet 1 tablet = 2 mg, By Mouth, 2 times a day, PRN Pain , Severe, # 28 tablet, 0 Refills, Maintenance, 09/06/21 16:20:00 EDT, Tablet, [facility] #[id number], Partial fill upon patient request if the prescription is for a schedule II opioid drug., 153,... Start Date: 09/06/21 Status: Ordered Famotidine 0 Refills, Maintenance, 04/07/19 16:11:00 EST Start Date: 04/07/19 Status: Ordered gabapentin 800 mg oral tablet 1 tablet, By Mouth, 4 times a day, # 360 tablet, 1 Refills, [facility]75[facility], 160, cm, 03/30/21 10:47:00 EST, Height, 104.6, [...] FOR ITCHING, # 90 capsule, 1 Refills, [facility] [id number], 153, cm, 06/07/21 11:07:00 EST, Height, 105, [...] 1 Refills, Maintenance, 07/30/21 12:25:00 EDT, Tablet, [facility] #[id number], Partial fill upon patient request if the prescription is for a schedule II opioid drug... Start Date: 07/30/21 Status: Ordered omeprazole 20 mg oral enteric coated capsule 1 capsule, By Mouth, Daily, # 90 capsule, 1 Refills, [facility], 160, cm, 03/30/21 10:47:00 EST, Height, 104.6, kg, 12/04/20 10:52:00 EDT, Dry Weight Start Date: 03/31/21 Status: Ordered ondansetron 4 mg oral tablet 1 tablet = 4 mg, By Mouth, Every 8 hours, PRN Nausea & Vomiting, # 30 tablet, 1 Refills, Maintenance, 08/12/21 13:26:00 EDT, [facility] #[id number], 153, cm, 08/10/21 11:19:00 EDT, Height, 105, kg, 05/31/21 15:15:00 EST, Dry Weight Start Date: 08/12/21 Status: Ordered oxybutynin 5 mg oral tablet 1 tablet, By Mouth, 3 times a day, # 270 tablet, 1 Refills, [facility], 153, cm, 08/10/21 11:19:00 EDT, Height, 105, [...] 0 Refills, Maintenance, 08/13/21 16:34:00 EDT, Tablet, [facility] #[id number], Partial fill upon patient request if the prescription is for a schedule II opioid drug., 153, cm, 08/10/21 11:19:00 ED... Start Date: 08/13/21 Status: Ordered traZODone 150 mg oral tablet 1.5 tablet = 225 mg, By Mouth, Daily at bedtime, # 135 tablet, 1 Refills, Maintenance, 07/30/21 12:25:00 EDT, Tablet, [facility] #[id number], Partial fill upon patient request if the [...] tablet, 1 Refills, Maintenance, 07/30/21 12:22:00 EDT, [facility] #[id number], Partial fill upon patient request if the [...]
--- OUTSIDE RECORDS SUMMARY | 2022-12-30 08:31 | XMS_ITS | Continuity of Care Document ---
Author Name Unknown Organization [facility] Address [address] [place] [address]- Care Team Providers Care Pilot Control Operator Helper Name Role Phone Candis CARDENAS, Kaiden Villalta Primary Care Physician [phone] Encounter [facility] [place] [facility] R [id number] Date(s): 11/30/21 - 12/30/21 [facility] [address] [place], [place] [address] Allergies, Adverse Reactions, [...] 8.5 Gm,0 Refills, Maintenance, 12/22/21 10:40:00 EDT, [facility] #[id number], 2 puffs Inhalation Every 4 hours,PRN: NEEDED FOR WHEEZING/cough/shortness... Start Date: 12/22/21 Status: Ordered albuterol 0.083% inhalation solution 3 mL = 2.5 mg, Inhalation, Every 4 hours, PRN for wheezing/cough/shortness of breath, # 25 each, 0 Refills, Maintenance, 10/14/21 22:10:00 EDT, Solution, [facility] #[id number], Partial fill upon patient request if the prescription is for a sched... Start Date: 10/14/21 Status: Ordered benzonatate 100 mg oral capsule 2 capsule, By Mouth, 3 times a day, PRN NEEDED FOR COUGH, # 30 capsule, 1 Refills, Maintenance, 12/10/22 15:43:00 EDT, [facility] #[id number], 153, cm, 10/08/21 13:23:00 EDT, Height, 113.9, kg, 10/08/21 13:23:00 EDT, Dry Weight Start Date: 12/10/22 Status: Ordered benzonatate 100 mg oral capsule 2 capsule, By Mouth, 3 times a day, PRN NEEDED FOR COUGH, # 30 capsule, 1 Refills, Physician Stop 12/10/22 15:43:00 EDT, 11/10/22 14:46:00 EDT, [facility] #[id number], 153, cm, 10/08/21 13:23:00 EDT, Height, 113.9, [...] tablet, 0 Refills, Maintenance, 12/27/21 13:43:00 EDT, [facility] #[id number], 153, cm, 10/08/21 13:23:00 EDT, Height, 113.9, [...] Gm, 1 Refills, [facility] 09028, 30, APPLY 1 GM TOPICALLY 4 TIMES A DAY FOR PAIN, 153, cm, 06/07/21 11:07:00 EST, Height, 105, kg, 05/31/21 15:15:00 EST, Dry Weight Start Date: 08/05/21 Status: Ordered Dilaudid 2 mg oral tablet 1 tablet = 2 mg, By Mouth, 2 times a day, PRN Pain , Severe, checked masspat, # 28 tablet, 0 Refills, Maintenance, 12/22/21 10:40:00 EDT, Tablet, [facility] #[id number], Partial fill upon patient request if the prescription is for a schedule II o... Start Date: 12/22/21 Status: Ordered Estrace Vaginal Cream 0.1 mg/g = 2 Gm, Vaginally, Daily at bedtime, 2g PV daily at bedtime x 2 weeks, then 1g PV 1-3x per week, # 42.5 Gm, 5 Refills, Maintenance, 11/09/21 11:17:00 EDT, [facility] #[id number], Partial fill upon patient request if the prescription is for a sche... Start Date: 11/09/21 Status: Ordered estradiol 0.0375 mg/24 hours twice weekly transdermal film, extended release See Instructions, 1 patch Topically, change patch twice a week, # 1 pack/packet, 1 Refills, Maintenance, 12/07/21 10:42:00 EDT, [facility] #[id number], Partial fill upon patient request if the prescription is for a schedule II opioid drug., 153,... Start Date: 12/07/21 Status: Ordered gabapentin 800 mg oral tablet See Instructions, TAKE 1 TABLET BY MOUTH FOUR TIMES DAILY, # 360 tablet, 0 Refills, [facility] #[id number], 153, cm, 10/08/21 13:23:00 EDT, Height, 113.9, [...] capsule, 1 Refills, Maintenance, 12/08/21 10:10:00 EDT, [facility] #[id number], 153, cm, 10/08/21 13:23:00 EDT, Height, 113.9,kg, [...] 1 Refills, Maintenance, 07/30/21 12:25:00 EDT, Tablet, [facility] #[id number], Partial fill upon patient request if the prescription is for a schedule II opioid drug... Start Date: 07/30/21 Status: Ordered levothyroxine 0.1 mg oral tablet 1 tablet = 100 mcg, By Mouth, Daily, dose increase, # 90 tablet, 0 Refills, Maintenance, 11/01/21 16:08:00 EDT, [facility] #[id number], Please discontinue 88ug, 153, cm, 10/08/21 13:23:00 [...] 1 Refills, Maintenance, 11/30/21 15:44:00 EDT, Tablet, [facility] #[id number], [place]... Start Date: 11/30/21 Status: Ordered lidocaine 3% topical gel 1 application, Topically, 2 times a day, PRN as needed for pain, to replace 2% topical, # 28.5 Gm, 2 Refills, Acute 03/29/22 14:17:00 EST, 12/28/21 14:17:00 EDT, Gel, [facility] #[id number], Partial fill upon patient request if the prescription i... Start Date: 12/28/21 Stop Date: 03/29/22 Status: Ordered lidocaine 4% topical cream 1 application, Topically, 2 times a day, PRN Pain , Mild, # 30 Gm, 1 Refills, Acute 01/27/22 17:31:00 EDT, 12/28/21 17:31:00 EDT, Cream, [facility] #[id number], Partial fill upon patient requestif the prescription is for a schedule II opioid cedrick... Start Date: 12/28/21 Stop Date: 01/27/22 Status: Ordered meloxicam 15 mg oral tablet 1/2 TO 1 TABLET, By Mouth, Daily, PRN NEEDED FOR MODERATE PAIN, # 30 tablet, 1 Refills, :04:00 EDT, [facility] #[id number], 153, cm, 10/08/21 13:23:00 EDT, Height, 113.9, kg, 10/08/21 13:23:00 EDT, Dry Weight Start Date: 11/16/21 Status: Ordered metroNIDAZOLE 500 mg oral tablet 1 tablet = 500 mg, By Mouth, Every 12 hours, for 7 days, do not drink alcohol, # 14 tablet, 0 Refills, Acute 01/05/22 16:58:00 EDT, 12/29/21 16:58:00 EDT, Tablet, [facility] #[id number], Partialfill upon patient request if the prescription [...] 90 capsule, 0 Refills, 09/27/21 14:31:00 EDT, [facility] #[id number], 153, cm, 08/10/21 11:19:00 EDT, Height, 105, kg, 05/31/21 15:15:00 EST, Dry Weight Start Date: 09/27/21 Status: Ordered ondansetron 4 mg oral tablet 1 tablet = 4 mg, By Mouth, Every 8 hours, PRN Nausea & Vomiting, # 30 tablet, 1 Refills, Maintenance, 11/10/21 14:47:00 EDT, [facility] #[id number], 153, cm, 10/08/21 13:23:00 EDT, Height, 113.9, kg, 10/08/21 13:23:00 EDT, Dry Weight Start Date: 11/10/21 Status: Ordered oxybutynin 5 mg oral tablet 1 tablet, By Mouth, 3 times a day, # 270 tablet, 1 Refills, [facility], 153, cm, 08/10/21 11:19:00 EDT, Height, 105, [...] 11/09/21 Sex Care Team Personnel Name: Kaiden Chirinso MD Address: [address] [place] [address] [facility] [address]
--- OUTSIDE RECORDS SUMMARY | 2022-12-30 08:31 | XMS_ITS | Continuity of Care Document ---
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 Name Role Phone Candis CARDENAS, Kaiden Villalta [id number] 07[facility]30[facility] [address] [place], [place] [address] Allergies, Adverse Reactions, Alerts Substance [...] # 8.5 each, 0 Refills, [facility], 20, INHALE 2 PUFFS BY MOUTH EVERY 4 HOURS NEEDED FOR WHEEZING, 160, cm, 03/30/21 10:47:00 EST, Height, 104.6, kg, 12/04/20 10:52:00 EDT, Dry Weight Start Date: 04/28/21 Status: Ordered amitriptyline 10 mg oral tablet 10 mg, 1, tablet, By Mouth, Daily at bedtime, # 90 tablet, Refills 1, Tot. Refills 1, Maintenance, 07/30/21 12:25:00 EDT, Route to Pharmacy Electronically, [facility] #[id number], Partial fill upon patient request if the [...] 0 Refills, Maintenance, 11/18/20 21:02:00 EDT, Tablet, [facility] #[id number], Partial fill upon patient... Start Date: 11/18/20 Status: Ordered Dilaudid 2 mg oral tablet 1 tablet = 2 mg, By Mouth, 2 times a day, PRN Pain , Severe, # 28 tablet, 0 Refills, Maintenance, 07/21/21 12:23:00 EDT, Tablet, [facility] #[id number], Partial fill upon patient request if the prescription is for a schedule II opioid drug., 153,... Start Date: 07/21/21 Status: Ordered Famotidine 0 Refills, Maintenance, 04/07/19 16:11:00 EST Start Date: 04/07/19 Status: Ordered gabapentin 800 mg oral tablet 1 tablet, By Mouth, 4 times a day, # 360 tablet, 1 Refills, [facility], 160, cm, 03/30/21 10:47:00 EST, Height, 104.6, [...] 1 Refills, Maintenance, 07/30/21 12:25:00 EDT, Capsule, [facility] #[id number], Partial fill upon patient request if the [...] 1 Refills, Maintenance, 07/30/21 12:25:00 EDT, Tablet, [facility] #[id number], Partial fill upon patient request if the prescription is for a schedule II opioid drug... Start Date: 07/30/21 Status: Ordered omeprazole 20 mg oral enteric coated capsule 1 capsule, By Mouth, Daily, # 90 capsule, 1 Refills, [facility], 160, cm, 03/30/21 10:47:00 EST, Height, 104.6, [...] 1 Refills, Maintenance, 07/30/21 12:25:00 EDT, Tablet, [facility] #[id number], Partial fill upon patient request if the [...] 1 Refills, Maintenance, 06/11/21 14:11:00 EST, Gel, [facility] #0969, Partial fill upon patient request if the prescriptionis for a schedule II opioid drug., 1 Gm Topically 4... Start Date: 06/11/21 Status: Ordered ZyrTEC 10 mg oral tablet 1 tablet = 10 mg, By Mouth, Daily, # 90 tablet, 1 Refills, Maintenance, 07/30/21 12:22:00 EDT, Tablet, [facility] #[id number], Partial fill upon patient request if the [...]
--- NOTE | 2022-12-30 10:35 | A.OFFVIS_ITS ---
Intake VS Expanded 12/30/22 10:56 Height 5 ft 3.5 in Weight 246 lb 8 oz BMI 43.0 Body Fat 121.6 Body Fat Percentage 49.3 Free Fat Mass 125 Visceral Mass 16 Water Mass 88.8 BMR 1,780 Intake Visit Reasons: [employer] BMI 43.1 Allergies morphine Adverse Reaction (Intermediate, Verified 12/30/22 10:36) Nausea and Vomiting Medication List - Last Reconciled 12/30/22 by Mario Alberto Chavarria MD bupropion HCl 300 mg PO QAM escitalopram oxalate 10 mg PO DAILY estradiol 1 patch transdermal 2XW hydromorphone 2 mg PO Q4-6H PRN hydroxyzine pamoate 50 mg PO TID levothyroxine 125 mcg PO DAILY lorazepam 1 mg PO TID PRN omeprazole 20 mg PO DAILY ondansetron HCl 4 mg PO Q6H oxybutynin chloride 5 mg PO DAILY HPI [employer] SW[employer] BMI 43.1 HPI Details Start time: 10.30am, End time: 11.15am ?I spent 40 minutes speaking with the patient on the phone plus an additional 5 minutes reviewing and updating records for a total of 45 minutes HPI Comments History of Present Illness Details Previous weight loss efforts: Weight Watchers, OTC diet pills Wakes up: 8am, sleeps: 9.30pm Breakfast: skips Lunch: 2pm (eggs, cottage cheese, or soup) Dinner: 4.30pm (chicken, fish, steak, burgers) Snacks: 10am cottage cheese x1/wk Exercise: Has home stationary bike Fluids: Coffee: none, tea: 1 cup x3/wk (plain), soda: diet Pepsi, juice: none, ETOH: 2/month PFSH Medical History (Updated 12/30/22 @ 10:50 by Mario Alberto Chavarria MD) DJD (degenerative joint disease) Nausea Stress incontinence GERD (gastroesophageal reflux disease) Hypothyroidism Depression Anxiety PTSD (post-traumatic stress disorder) Morbid obesity Surgical History (Updated 12/30/22 @ 10:50 by Mario Alberto Chavarria MD) Hx of tonsillectomy History of hysterectomy Hx laparoscopic cholecystectomy Assessment & Plan Assessment & Plan (1) Morbid obesity: Code(s): E66.01 - Morbid (severe) obesity due to excess calories Plan: 1.? Plan for lap sleeve gastrectomy. If diaphragmatic or ventral hernias are present at time of surgery, these will be repaired laparoscopically as well. Risks and complications were discussed in detail including possible conversion to an open procedure, anastomotic leak, bleeding requiring transfusion, small bowel obstruction, , DVT and pulmonary embolism, cardiac, or pulmonary complications, as prison complications such as anastomotic ulcer, insufficient weight loss and vitamin deficiencies. I emphasized the importance of close follow-up, adherence to instructions and good communication. 2. Nutritional counseling. Start with 2 Isopure INFUSION protein shakes (buy at [employer], or C) shakes (HALF scoop in 8oz water each) at 9am-11am and 12pm-2pm, 1 protein bar (Zone Perfect protein bars, buy at [employer], [employer], [employer], or [employer]) at 3pm-5pm, dinner at 6pm (8 forks of protein and 8 forks of salad/vegetables) and one more protein bar after dinner at 7pm-9pm. Meal to include lean meat (beef, fish, pork, turkey, chicken), or greenlandic yogurt, or egg whites, or beans with a salad with olive oil and fruits (berries, pears, apples, kiwi). Avoid salt, breads, potatoes, rice, pasta, desserts. 3. Each shake would be drunk slowly, like coffee in a period of 2 hours. 4. Cut each bar in 4 pieces and eat each piece in 30min ?to make each bar last 2 hours. 5. I emphasized the importance of measuring accurately the food portion and measure it when serving the food in plate 6. The meal portions include 8 full-size forks of meat and 8 full-size forks of salad. You always eat the meat portion but you can replace up to 4 forks for salad/vegetables with rice, potatoes or pasta, or a fruit ?if you like. The less you do it the better weight loss will be. 7. One full-size fork is what it can be scooped on the fork without falling aside and not what can be bit with the fork. Use regular forks like those you find in a typical restaurant. 8.? Please send me weight measurements as soon as possible and then once a week. Always include your diet and exercise plan. 9. Start stationary bike at a resistance level of 0.0 and burn 300 calories per day. You can divide it in 3 daily sessions of 100 calories each one. Goal is to burn 2000 calories per week. 10.?Goal is to lose at least 1.5-2lbs per week 11. Goal to lose 10% of your weight before surgery, which is about 24lbs. Ultimate weight goal: 222lbs before surgery 12. Please follow the diet plan exactly without any change. If you don't like something about the plan or you feel hungry you need to communicate with me so I can help you revise the plan. You should not change the plan yourself. (2) Hypothyroidism: Code(s): E03.9 - Hypothyroidism, unspecified (3) GERD (gastroesophageal reflux disease): Code(s): K21.9 - Gastro-esophageal reflux disease without esophagitis (4) Stress incontinence: Code(s): N39.3 - Stress incontinence (female) (male) Orders: Orders Insulin Today E03.9 - Hypothyroidism, unspecified, E66.01 - Morbid (severe) obesity due to excess calories, K21.9 - Gastro-esophageal reflux disease without esophagitis, N39.3 - Stress incontinence (female) (male) Complete Blood Count Auto Diff Today E03.9 - Hypothyroidism, unspecified, E66.01 - Morbid (severe) obesity due to excess calories, K21.9 - Gastro-esophageal reflux disease without esophagitis, N39.3 - Stress incontinence (female) (male) Vitamin B12 and Folate Today E03.9 - Hypothyroidism, unspecified, E66.01 - Morbid (severe) obesity due to excess calories, K21.9 - Gastro-esophageal reflux disease without esophagitis, N39.3 - Stress incontinence (female) (male) Vitamin B1 Today E03.9 - Hypothyroidism, unspecified, E66.01 - Morbid (severe) obesity due to excess calories, K21.9 - Gastro-esophageal reflux disease without esophagitis, N39.3 - Stress incontinence (female) (male) Vitamin A Today E03.9 - Hypothyroidism, unspecified, E66.01 - Morbid (severe) obesity due to excess calories, K21.9 - Gastro-esophageal reflux disease without esophagitis, N39.3 - Stress incontinence (female) (male) C Reactive Protein Today E03.9 - Hypothyroidism, unspecified, E66.01 - Morbid (severe) obesity due to excess calories, K21.9 - Gastro-esophageal reflux disease without esophagitis, N39.3 - Stress incontinence (female) (male) Ferritin Today E03.9 - Hypothyroidism, unspecified, E66.01 - Morbid (severe) obesity due to excess calories, K21.9 - Gastro-esophageal reflux disease without esophagitis, N39.3 - Stress incontinence (female) (male) TSH reflex Free T4 Today E03.9 - Hypothyroidism, unspecified, E66.01 - Morbid (severe) obesity due to excess calories, K21.9 - Gastro-esophageal reflux disease without esophagitis, N39.3 - Stress incontinence (female) (male) Vitamin D 25-OH Total Today E03.9 - Hypothyroidism, unspecified, E66.01 - Morbid (severe) obesity due to excess calories, K21.9 - Gastro-esophageal reflux disease without esophagitis, N39.3 - Stress incontinence (female) (male) XR chest 2V Today E03.9 - Hypothyroidism, unspecified, E66.01 - Morbid (severe) obesity due to excess calories, K21.9 - Gastro-esophageal reflux disease without esophagitis, N39.3 - Stress incontinence (female) (male) ECG 12 lead EKG Today E03.9 - Hypothyroidism, unspecified, E66.01 - Morbid (severe) obesity due to excess calories, K21.9 - Gastro-esophageal reflux disease without esophagitis, N39.3 - Stress incontinence (female) (male) FL upper GI w air Today E03.9 - Hypothyroidism, unspecified, E66.01 - Morbid (severe) obesity due to excess calories, K21.9 - Gastro-esophageal reflux disease without esophagitis, N39.3 - Stress incontinence (female) (male) Lipid Panel Today E03.9 - Hypothyroidism, unspecified, E66.01 - Morbid (severe) obesity due to excess calories, K21.9 - Gastro-esophageal reflux disease without esophagitis, N39.3 - Stress incontinence (female) (male) IRON PROFILE Today E03.9 - Hypothyroidism, unspecified, E66.01 - Morbid (severe) obesity due to excess calories, K21.9 - Gastro-esophageal reflux disease without esophagitis, N39.3 - Stress incontinence (female) (male) Zinc Today E03.9 - Hypothyroidism, unspecified, E66.01 - Morbid (severe) obesity due to excess calories, K21.9 - Gastro-esophageal reflux disease without esophagitis, N39.3 - Stress incontinence (female) (male) Comprehensive Met. Panel Today E03.9 - Hypothyroidism, unspecified, E66.01 - Morbid (severe) obesity due to excess calories, K21.9 - Gastro-esophageal reflux disease without esophagitis, N39.3 - Stress incontinence (female) (male) PTHI Today E03.9 - Hypothyroidism, unspecified, E66.01 - Morbid (severe) obesity due to excess calories, K21.9 - Gastro-esophageal reflux disease without esophagitis, N39.3 - Stress incontinence (female) (male) H Pylori Breath Test Today E03.9 - Hypothyroidism, unspecified, E66.01 - Morbid (severe) obesity due to excess calories, K21.9 - Gastro-esophageal reflux disease without esophagitis, N39.3 - Stress incontinence (female) (male) Hemoglobin A1c Today E03.9 - Hypothyroidism, unspecified, E66.01 - Morbid (severe) obesity due to excess calories, K21.9 - Gastro-esophageal reflux disease without esophagitis, N39.3 - Stress incontinence (female) (male) US abdomen comp w elastography Today E03.9 - Hypothyroidism, unspecified, E66.01 - Morbid (severe) obesity due to excess calories, K21.9 - Gastro-esophageal reflux disease without esophagitis, N39.3 - Stress incontinence (female) (male) Referrals Behavioral Health Referral E03.9 - Hypothyroidism, unspecified, E66.01 - Morbid (severe) obesity due to excess calories, K21.9 - Gastro-esophageal reflux disease without esophagitis, N39.3 - Stress incontinence (female) (male) Nutrition/Dietitian Referral E03.9 - Hypothyroidism, unspecified, E66.01 - Morbid (severe) obesity due to excess calories, K21.9 - Gastro-esophageal reflux disease without esophagitis, N39.3 - Stress incontinence (female) (male) Telehealth Telehealth Location of provider rendering services: practice address Location of patient: address on file Patient Identification confirmed using: Name, : Yes Telehealth method: voice only Patient verbally consented to treatment: Yes Patient verbally consented to billing insurance company: Yes Patient informed of any privacy concerns related to visit: Yes Minutes spent on Phone/Video with Pt.: 45 Coding Level of Care Code Tele New Pt Level 4 ([id number]) Diagnoses Morbid obesity E66.01 Hypothyroidism E03.9 GERD (gastroesophageal reflux disease) K21.9 Stress incontinence N39.3 Time Spent (min) 45
[2022-12-30 10:56] VITALS: BMI 43.0
== END 2022-12-30 11:16 | disposition home or self-care (01) ==
LOC: HO.HBS 08:09
PROVIDERS: PCP Internal Medicine Sports Medicine; Visit Provider Surgery
DX: E66.01 Morbid (severe) obesity due to excess calories (principal); Z68.41 Body mass index [BMI] 40.0-44.9, adult; E03.9 Hypothyroidism, unspecified; K21.9 Gastro-esophageal reflux disease without esophagitis; N39.3 Stress incontinence (female) (male)
CPT/HCPCS: 99443

== ENCOUNTER → 2022-12-30 08:09 | Outpatient (BNVA) | payer OTHER, SELFPAY | PROVIDERS: PCP Internal Medicine Sports Medicine; Visit Provider Surgery ==